=== PATIENT | female | born 1985 | race Caucasian/White ===

== ENCOUNTER 2023-08-22 09:24 | Outpatient (OUT) | payer BC, SELFPAY ==
--- NOTE | 2023-08-22 | US_ITS ---
[address] [address] Patient Name: LOCO HICKS MRN: [id number] date: 1985 Sex: F Assigned Patient Location: [facility] Current Patient Location: [facility] Accession/Order Number: [id number] Exam Date: 08/22/2023 09:30 Report Date: 08/22/2023 10:00 At the request of: MARYANN VIZCARRA Procedure: US OB transvaginal EXAMINATION: US OB transvaginal HISTORY: MISSED MENSES. VIABILITY AND DATING COMPARISON: No relevant comparison available. FINDINGS: Downs intrauterine gestation Gestational sac: 4.81 cm, 10 weeks 4 days CRL: 4.8 cm, 11 weeks 5 days Heart rate: 160 beats minute Cervix: Closed, 4.3 cm The uterus is normal, anteverted The right ovary is normal containing a 2.8 cm corpus luteal cyst. The left ovary is not visualized Clinical age: 11 weeks 5 days Clinical DEEPALI: 03/07/2024 Ultrasound age: 11 weeks 5 days Ultrasound DEEPALI: 03/07/2024 US/US OB transvaginal IMPRESSION: Viable downs intrauterine gestation measuring 11 weeks 5 days Electronically authenticated by: CADEN COX Date: 08/22/2023 10:00
== END 2023-08-22 09:25 | disposition home or self-care (01) ==
LOC: NOMS 09:24
PROVIDERS: Visit Provider Obstetrics & Gynecology
DX: Z34.91 Encounter for supervision of normal pregnancy, unspecified, first trimester (principal); Z3A.11 11 weeks gestation of pregnancy
CPT/HCPCS: 76817

== ENCOUNTER 2023-08-23 08:50 | Outpatient (OUT) | payer BC, SELFPAY ==
--- OUTSIDE RECORDS SUMMARY | 2023-08-23 08:56 | XMS_ITS | CCD ---
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 or neural foraminal narrowing. C4-C5: There is no significant disc protrusion, spinal canal stenosis or neural foraminal narrowing. C5-C6: There is no significant disc protrusion, spinal canal stenosis or neural foraminal narrowing. C6-C7: There is no significant disc protrusion, spinal canal stenosis or neural foraminal narrowing. C7-T1: There is no significant disc protrusion, spinal canal stenosis or neural foraminal narrowing. IMPRESSION: Unremarkable exam RECOMMENDATIONS: Unavailable Interpreted by: Ean Cedillo MD Signed by: Ean Cedillo MD 12/22/21 Final result Normal [facility] [id number] 12-22-2021 SARS-CoV-2 (COVID-19) RNA SHELBI+probe Ql (Unsp spec) Not detected Normal NOTDET [facility] Comment on above: Result Comment: Rapid NAAT: The specimen is NEGATIVE for SARS-CoV-2, the novel coronavirus associated with COVID-19. The ID NOW COVID-19 assay is designed to detect the virus that causes COVID-19 in patients with signs and symptoms of infection who are suspected of COVID-19. An individual without symptoms of COVID-19 and who is not shedding SARS-CoV-2 virus would expect to have a negative (not detected) result in this assay. Negative results should be treated as presumptive and, if inconsistent with clinical signs and symptoms or necessary for patient management, should be tested with an alternative molecular assay. Negative results do not preclude SARS-CoV-2 infection and should not be used as the sole basis for patient management decisions. Fact sheet for Healthcare Providers: https://www.fda.gov/media/124903/download Fact sheet for Patients: https://www.fda.gov/media/582069/download Methodology: Isothermal Nucleic Acid Amplification Performed By: #### C OVRB #### [address] [place] [address] Statuary Painter: Campbell Simmons MD SARS-CoV-2 (COVID-19) PCRon 12-22-2021 Employed in healthcare? No Invalid Interpretation Code [facility] Comment on above: Performed By: #### 6 [id number] ####[facility] (DEFAULT)[address] [place] [address] Group care resident? No Invalid Interpretation Code [facility] Comment on above: Performed By: #### 6 [id number] ####[facility] (DEFAULT)[address] [place] [address] 638[address] In ICU? No Invalid Interpretation Code [facility] Comment on above: Performed By: #### 6 [id number] ####[facility] (DEFAULT)[address] [place] [address] 12912 status? Not Invalid Interpretation Code [facility] Comment on above: Performed By: #### 6 [id number] ####[facility] (DEFAULT)[address] [place] [address] SARS-CoV-2 (COVID-19) RNA SHELBI+probe Ql (Unsp spec) Not detected Normal Not Detected [facility] Comment on above: Result Comment: Perf ormed by PCR methodology. Performed By: #### 6 [id number] ####[facility] (DEFAULT)[address] [place] [address] SARS-CoV-2 (COVID-19) RNA SHELBI+probe Ql (Unsp spec) No Invalid Interpretation Code [facility] Comment on above: Performed By: #### 6 [id number] ####[facility] (DEFAULT)[address] [place] [address] Symptomatic as defined by CDC? No Invalid Interpretation Code [facility] Comment on above: Performed By: #### 6 [id number] ####[facility] (DEFAULT)[address] [place] [address] Transfer Noteon 12-22-2021 Transfer Note medication list sent with patient, Complete ED chart sent with patient. CD and med list sent w. patient to Hospital [Electronically Signed on: 12/22/2021 00:05 EDT] Nadya Garcia [Verified on: 12/22/2021 00:05 EDT] Nadya Garcia [facility] Transfer Note [id number] #1.00OTGTIFF [facility] Transfer Note [id number]. [id number] #1.00OTGTIFF [facility] Transfer Note transport called, [facility] called for transport to [facility]. Willie stated will call when back in area from [place]. [Electronically Signed on: 12/21/2021 22:14 EDT] Nadya Garcia [Verified on: 12/21/2021 22:14 EDT] Nadya Garcia Normal [facility] .Auto Diff 1on 12-21-2021 Auto [place] % 7 % Normal 1-12 [facility] Comment on above: Performed By: #### 7 333747, [id number], 3577508, 80479786, 5757012, 6055920, 6697878687, 1908443, 5685567813 ####[facility] (DEFAULT)[address] [place] [address] Baso Abs# 0.0 x10 Normal 0.0-0.2 [facility] Comment on above: Performed By: #### 7 195982, [id number], 9861310, 87202928, 5428015, 3884208, 3378406323, 0694935, 1817280498 ####[facility] (DEFAULT)[address] [place] [address] Basophils/100 WBC (Bld) 0.4 % Normal 0.2-2.0 [facility] Comment on above: Performed By: #### 7 437578, 8373339923, 3880533, 20544327, 5181343, 9125501, 0353395057, 2206348, 8583458222 ####[facility] (DEFAULT)[address] [place] [address] Eos Abs# 0.1 x10 Normal 0.0-0.4 [facility] Comment on above: Performed By: #### 7 755857, 1639270326, 0013842, 65472608, 4916472, 5768648, 4034290860, 0562457, 4894306294 ####[facility] (DEFAULT)[address] [place] [address] 24685 Eosinophils/100 WBC (Bld) 0.7 % Low 0.9-4.0 [facility] Comment on above: Performed By: #### 7 121000, 9067848333, 5235568, 35652817, 8345785, 6191583, 8070709494, 1540000, 7694782070 ####[facility] (DEFAULT)[address] [place] [address] 74528 Lymph Abs# 3.2 x10 High 1.3-2.9 [facility] Comment on above: Performed By: #### 7 418121, 5296378890, 3215588, 81121831, 7860853, 1951928, 8169700534, 7314042, 6952370086 ####[facility] (DEFAULT)[address] [place] [address] 13577 Lymphocytes/100 WBC (Bld) 40 % Normal 14-48 [facility] Comment on above: Performed By: #### 7 899840, 5858608310, 5126009, 83590601, 6773586, 6554109, 4866469325, 1218751, 7027425067 ####[facility] (DEFAULT)[address] [place] [address] 82370 Isanti Abs# 0.6 x10 Normal 0.0-0.8 [facility] Comment on above: Performed By: #### 7 017689, 5966580285, 5516933, 92039346, 9615389, 8652222, 4775576126, 3759616, 4490982651 ####[facility] (DEFAULT)[address] [place] [address] 12253 Neut Abs# 4.3 x10 Normal 1.5-9.2 [facility] Comment on above: Performed By: #### 7 126932, 4745996382, 8342215, 72244923, 1029723, 1387335, 9250373857, 6225914, 8511632286 ####[facility] (DEFAULT)[address] [place] [address] 43795 Neutrophils/100 WBC (Bld) 53 % Normal 44-88 [facility] Comment on above: Performed By: #### 7 187317, 1142069148, 3473071, 39604556, 5240403, 5351566, 5496013895, 9097188, 2096665805 ####[facility] (DEFAULT)[address] [place] [address] 69794 CBC w/ Auto Diffon 2 Erythrocyte distribution width (RBC) [Ratio] 14.3 % Normal 11.5-15.0 [facility] Comment on above: Performed By: #### 7 863327, 8435259707, 3693091, 58137457, 6852536, 4886048, 6226357946, 9478856, 0876943951 ####[facility] (DEFAULT)[address] [place] [address] 91392 Hematocrit (Bld) [Volume fraction] 42.3 % High 33.7-40.4 [facility] Comment on above: Performed By: #### 7 228869, 3897160719, 4886693, 85958964, 4010466, 4853688, 5463365029, 6292107, 0738998188 ####[facility] (DEFAULT)[address] [place] [address] 54094 Hemoglobin (Bld) [Mass/Vol] 13.7 g/dL Normal 11.3-15.9 [facility] Comment on above: Performed By: #### 7 856001, 4349815702, 6947170, 80982740, 3538456, 6447735, 5629619394, 2125836, 6173647484 ####[facility] (DEFAULT)[address] [place] [address] 92548 Instr WBC 8.2 x10 Invalid Interpretation Code [facility] Comment on above: Performed By: #### 7 109224, 4140236821, 6803466, 04434631, 5596035, 6469292, 9996138363, 7574930, 9396797224 ####[facility] (DEFAULT)[address] [place] [address] 41649 Man Diff? Auto Normal [facility] Comment on above: Performed By: #### 7 312411, 8660719613, 6322712, 09514599, 1855107, 4929216, 9771392098, 2031156, 9240859404 ####[facility] (DEFAULT)[address] [place] [address] 83627 MCH (RBC) [Entitic mass] 31 pg Normal 24-34 [facility] Comment on above: Performed By: #### 7 158183, 2675792052, 0150146, 76812122, 6666451, 7619159, 8983307453, 1350230, 9110833453 ####[facility] (DEFAULT)[address] [place] [address] 65901 MCHC (RBC) [Mass/Vol] 32 g/dL Normal 26-37 [facility] Comment on above: Performed By: #### 7 727522, 7222250236, 9894864, 42084365, 2292626, 9452787, 3855621158, 7554819, 4723237552 ####[facility] (DEFAULT)[address] [place] [address] 02368 MCV (RBC) [Entitic vol] 96 fL Normal 81-100 [facility] Comment on above: Performed By: #### 7 656663, 1859944825, 1149395, 76164462, 9822317, 5419995, 9696412201, 2368091, 5989379474 ####[facility] (DEFAULT)[address] [place] [address] 13741 Platelet 363 x10 Normal 138-427 [facility] Comment on above: Performed By: #### 7 062864, 3878999241, 9456578, 55044026, 8010668, 5230789, 4251659603, 0049289, 9999241581 ####[facility] (DEFAULT)[address] [place] [address] 38999 Platelet mean volume (Bld) [Entitic vol] 10.2 fL Normal 6.3-10.2 [facility] Comment on above: Performed By: #### 7 439698, 5951767287, 3322171, 57417896, 6622226, 7543780, 1807389983, 1101863, 4118813101 ####[facility] (DEFAULT)[address] [place] [address] 86200 RBC 4.42 x10 Normal 3.70-5.30 [facility] Comment on above: Performed By: #### 7 045972, 5423810847, 1194937, 21165129, 5850456, 0234114, 6575900629, 0585765, 7712217324 ####[facility] (DEFAULT)[address] [place] [address] 95367 WBC 8.2 x10 Normal 3.5-10.5 [facility] Comment on above: Performed By: #### 7 020904, 1772463838, 0800427, 93107044, 7568796, 8655753, 9162461311, 6080732, 8701303344 ####[facility] (DEFAULT)[address] [place] [address] Standardon 12-21-2021 eGFR Non AA 57 mL/min/1.73m2 Invalid Interpretation Code [facility] Comment on above: Performed By: #### 7 926781, 3043004842, 0602794, 56338018, 0214560, 9143435, 2848825369, 1281396, 7481404962 ####[facility] (DEFAULT)[address] [place] [address] 39109 eGFR AA >60 Invalid Interpretation Code [facility] Comment on above: Result Comment: Onion Farmer nathalia Kidney disease could be indicated at eGFRs of less than 60 ml/min/1.73m2. Kidney Failure is indicated at less than 15 ml/min/1.73m2 Performed By: #### 7 412791, 6681244755, 7992553, 12933409, 6674303, 3956530, 3458000088, 2639382, 2480329560 ####[facility] (DEFAULT)[address] [place] [address] 75619 Albumin [Mass/Vol] 4.7 g/dL Normal 3.5-5.0 [facility] Comment on above: Performed By: #### 7 970230, 7055534752, 8167355, 26382606, 0724436, 7848337, 7035492598, 6594902, 8184149038 ####[facility] (DEFAULT)[address] [place] [address] Albumin/Globulin [Mass ratio] 1.1 {ratio} Low 1.4-2.6 [facility] Comment on above: Performed By: #### 7 860060, 1390739701, 8968109, 30788871, 1351222, 0395435, 5505253748, 2888452, 2822418060 ####[facility] (DEFAULT)[address] [place] [address] 27330 Alk Phos 99 IU/L High 32-91 [facility] Comment on above: Performed By: #### 7 817567, 9531762588, 1031755, 71775380, 7689025, 5095123, 2202812426, 1483369, 3229333261 ####[facility] (DEFAULT)[address] [place] [address] ALT [Catalytic activity/Vol] 32.0 U/L Normal 14.0-54.0 [facility] Comment on above: Performed By: #### 7 625344, 7954004001, 2770529, 29055862, 4579900, 7229095, 7357684905, 2587945, 2136331657 ####[facility] (DEFAULT)[address] [place] [address] 87909 Anion gap [Moles/Vol] 23.0 mmol/L High 5.0-19.0 [facility] Comment on above: Performed By: #### 7 869902, 5702566421, 0083818, 90606974, 1858827, 6029483, 9994103515, 3262330, 5864819076 ####[facility] (DEFAULT)[address] [place] [address] 86271 AST [Catalytic activity/Vol] 41 U/L Normal 15-41 [facility] Comment on above: Performed By: #### 7 109306, 2207656844, 7618711, 03641692, 4565448, 1445509, 0584628007, 2679728, 5294054626 ####[facility] (DEFAULT)[address] [place] [address] 13030 Bili Total 0.4 mg/dL Normal 0.3-1.2 [facility] Comment on above: Performed By: #### 7 179220, 7145202170, 4972955, 55018334, 1803113, 2045073, 1412220467, 3058965, 3812021746 ####[facility] (DEFAULT)[address] [place] [address] 26763 Calcium [Mass/Vol] 10.2 mg/dL Normal 8.9-10.3 [facility] Comment on above: Performed By: #### 7 545354, 0302108399, 1829554, 08799809, 3280205, 4723227, 7077252638, 3438224, 0067254189 ####[facility] (DEFAULT)[address] [place] [address] 35375 Chloride [Moles/Vol] 96 mmol/L Low 101-111 [facility] Comment on above: Performed By: #### 7 284755, 4980452818, 3438315, 31562345, 9742905, 7698404, 9043227646, 0119235, 1497918436 ####[facility] (DEFAULT)[address] [place] [address] 65786 CO2 [Moles/Vol] 24 mmol/L Normal 21-32 [facility] Comment on above: Performed By: #### 7 565564, 0106245634, 1320345, 06669746, 7457995, 0295512, 5150611198, 3879908, 2552602295 ####[facility] (DEFAULT)[address] [place] [address] 17634 Creatinine [Mass/Vol] 1.10 mg/dL Normal 0.60-1.30 [facility] Comment on above: Performed By: #### 7 792027, 1359764488, 3564450, 52842505, 0608135, 5854713, 4710093387, 7267840, 1850385784 ####[facility] (DEFAULT)[address] [place] [address] 00063 Globulin (S) [Mass/Vol] 4.2 g/dL Normal 1.5-4.3 [facility] Comment on above: Performed By: #### 7 578995, 0395874495, 2629720, 75140293, 8713966, 3045136, 2699958086, 7235464, 4441286413 ####[facility] (DEFAULT)[address] [place] [address] 53451 Glucose [Mass/Vol] 97.0 mg/dL Normal 74.0-118.0 [facility] Comment on above: Performed By: #### 7 605264, 6958634220, 1497476, 81866009, 4642882, 6664297, 2963197825, 0270722, 3349018050 ####[facility] (DEFAULT)[address] [place] [address] 44450 Osmolality 278 mOsm/L Invalid Interpretation Code [facility] Comment on above: Performed By: #### 7 007531, 5831134195, 3296751, 70013121, 7056903, 1418132, 6157909078, 6887508, 5623188663 ####[facility] (DEFAULT)[address] [place] [address] 44831 Potassium [Moles/Vol] 3.5 mmol/L Low 3.6-5.1 [facility] Comment on above: Performed By: #### 7 439796, 6054488648, 4599993, 86559288, 5017571, 1653649, 4654543757, 3821306, 1290364504 ####[facility] (DEFAULT)[address] [place] [address] 61327 Protein [Mass/Vol] 8.9 g/dL High 6.5-8.1 [facility] Comment on above: Performed By: #### 7 583955, 8509335909, 3747308, 60906761, 5219158, 6734739, 0888154819, 0977857, 5085980534 ####[facility] (DEFAULT)[address] [place] [address] 55497 Sodium [Moles/Vol] 139.0 mmol/L Normal 136.0-144.[address] [facility] Comment on above: Performed By: #### 7 612993, 5488863296, 4238901, 06863460, 1696608, 0430252, 1330559180, 9054419, 8649256183 ####[facility] (DEFAULT)[address] [place] [address] Urea nitrogen [Mass/Vol] 15 mg/dL Normal 8-26 [facility] Comment on above: Performed By: #### 7 167103, 8862522604, 5358115, 68834566, 7688818, 9319379, 9389865114, 1911324, 1959719145 ####[facility] (DEFAULT)[address] [place] [address] 90239 Urea nitrogen/Creatinine [Mass ratio] 14.0 mg/mg Normal 4.6-16.2 [facility] Comment on above: Performed By: #### 7 361509, 0492133031, 9915178, 94820430, 2972292, 8208889, 1519443167, 5676045, 6788593930 ####[facility] (DEFAULT)[address] [place] [address] CT Head or Brain w/o Kirk cortes 12-21-2021 CT Head or Brain w/o Contrast EXAMINATION: CT Head or Brain w/o Contrast HISTORY: Patient with numbness and tingling TECHNIQUE: Axial CT scans through the head were obtained without IV contrast administration. Dose reduction techniques were achieved by using: automated exposure control and/or adjustment of mA and /or kV according to patient size and/or use of iterative reconstruction technique. COMPARISON: None. FINDINGS: The cerebral hemispheres have normal white and chavez matter and corticomedullary differentiation. To the limit of CT, the posterior fossa appears unremarkable. The ventricular system and cortical sulci are normal for the patient's age. No area of abnormal mass-effect or edema or intracranial hemorrhage. The visualized orbits show no gross mass. The visualized paranasal sinuses show no air-fluid level. Mastoid air cells are clear. IMPRESSION: No acute intracranial process. Final Dictated by: Jaylon Ha Dictated DT/TM: 12/21/21 9:17 Signed (Electronic Signature): Jaylon Ha 12/21/21 9:19 pm Technologist: Erwin CHAUDHARI [facility] D-Dimeron 12-21-2021 D-Dimer 0.49 mg/L FEU Normal 0.19-0.50 [facility] Comment on above: Result Comment: The INNOVANCE D-Dimer assay (Cutoff Value of > 0.50) is intended for the use as an aid in the diagnosis of venous thromboembolism (VTE) deep vein thrombosis (DVT) or pulmonary embolism (PE). The measurement of D-Dimer should not be used as an aid in the diagnosis of VTE in patients with: ? Therapeutic dose anticoagulant therapy for >24 hours ? Fibrinolytic therapy within previous 7 days ? Trauma or surgery within previous 4 weeks ? Disseminated malignancies ? Aortic aneurysm ? Sepsis, sever infections, pneumonia, severe skin infections ? Liver cirrhosis ? Performed By: #### 7 183303, 0554204468, 4117497, 58951263, 5116217, 3019723, 4788395628, 7147178, 6144051940 ####[facility] (DEFAULT)[address] [place] [address] ED Note - Otheron 12-21-2021 ED Note - Other Neurology called back from [facility], on phone with Mariajose LLANES [Electronically Signed on: 12/21/2021 21:29 EDT] Nadya Garcia [Verified on: 12/21/2021 21:29 EDT] Nadya Garcia [facility] ED Note - Other paging Neurology through [facility] for consult for Mariajose LLANES [Electronically Signed on: 12/21/2021 21:12 EDT] Nadya Garcia [Verified on: 12/21/2021 21:12 EDT] Nadya Garcia [facility] ED Note - Physicianon 2021 ED Note - Physician Patient: LOCO HICKS Age: 36 years Sex: FEMALE : 1985 Associated Diagnoses: Paresthesias; Visual disturbance Author: MARIAJOSE EDEN Basic Information Time seen: Date & time 12/21/2021 18:37:00. History source: Patient, EMS. Arrival mode: Ambulance. Additional information: Chief Complaint from Nursing Triage Note : Chief Complaint 12/21/2021 18:24 EDT Chief Complaint Patient having episodes of left sided numbness and lightheadedness with position changes. . History of Present Illness Patient is a 36-year-old female presenting to the emergency department with complaint of episodes of left-sided facial numbness. Patient indicates over the last 2 weeks she has been experiencing left-sided facial numbness intermittently. She states this can last for 10 to 15 minutes at a time. She reports having pressure in her head and visual disturbance in her left eye when this happens. Patient describes visual disturbance as cloudy vision. She reports this causes her to feel anxious and panic and she will start hyperventilating. She reports after she does that she feels numbness and tingling in her fingertips and her feet. Patient reports she was at work tonight and experienced an episode of facial numbness that lasted approximately 10 minutes . She reports she felt this numbness and tingling on the side of her face, felt dizzy and possible mild shortness of breath. She denies having any chest pains, abdominal pains, nausea vomiting, problems with bowels or bladder. Denies any history of migraines. Denies any head injury. Review of Systems Constitutional symptoms: No fever, Skin symptoms: No rash, Eye symptoms: Vision unchanged. ENMT symptoms: No sore throat, no nasal congestion. Respiratory symptoms: No shortness of breath, no cough. Cardiovascular symptoms: No chest pain, no tachycardia. Gastrointestinal symptoms: No abdominal pain, no nausea, no vomiting. Genitourinary symptoms: No dysuria, Musculoskeletal symptoms: No back pain, Neurologic symptoms: Headache, numbness, tingling. Health Status Allergies: Allergic Reactions (Selected) No Known Medication Allergies. Medications: (Selected) Inpatient Medications Ordered Sodium Chloride 0.9% intravenous solution 500 mL: 20 mL/hr, IV Prescriptions Prescribed PriLOSEC 20 mg oral delayed release capsule: 20 mg, 1 cap(s), PO, Daily, 15 cap(s), 0 Refill(s) Documented Medications Documented metFORMIN 500 mg oral tablet: 500 mg, 1 tab(s), PO, BID, 0 Refill(s). Past Medical/ Family/ Social History Medical history: No active or resolved past medical history items have been selected or recorded.. Social history: Social & Psychosocial Habits Alcohol 12/21/2021 Alcohol Use: Never Substance Abuse 12/21/2021 Substance use: Never Tobacco 12/21/2021 Smoking tobacco use: Never tobacco user Electronic Cigarette/Vaping 12/21/2021 Electronic Cigarette Use: Never . Physical Examination Vital Signs Vital Signs 12/21/2021 18:24 EDT Temperature Oral 36.8 DegC Peripheral Pulse Rate 75 bpm Respiratory Rate 20 br/min Systolic Blood Pressure 149 mmHg HI Diastolic Blood Pressure 100 mmHg HI SpO2 98 % Oxygen Therapy Room air . CONST: -Well-developed well-nourished. -Acute distress: No -Vitals: reviewed. SKIN: -Gross abnormalities: No EYES: -EOM intact, PIA: -Sclera conjunctiva: Unremarkable. ENT: - pharynx pink and moist. NECK: -Supple ([id number]): non-tender. CARD: -Rate and rhythm: Regular -Edema: No -Calf pain: No RESP: -Respiratory effort and chest excursion with respirations: Normal -Breath sounds equal bilaterally: Clear -Wheezes: No -Rales: No BACK: -Signs of pain with movement: No ABD: -Distended: No -Deep palpation: Non-tender, soft, no guarding or rebound tenderness EXT: Gross appearance and use of all four extremities: Unremarkable NEURO: -Patient: alert -Gross CN or Focal Neuro deficits: No -Oriented to: person, place and time. -Appearance and judgment: appropriate. - No truncal or limb ataxia appreciated, Medical Decision Making 36-year-old female presenting to the emergency department for evaluation of numbness and tingling left side of face with visual disturbance, intermittent headaches, intermittently over the last 2 weeks. Patient's blood work shows mildly low potassium of 3.5, magnesium of 2.0, mild anion gap of 23, alcohol level is slightly elevated at 9, salicylate level within normal ranges, D-dimer is negative, troponin is negative, white blood cell count hemoglobin and platelets within normal ranges. Urinalysis shows no acute infection, negative for leukocyte Estrace and ketones, negative protein negative blood. Urine is negative. I discussed alcohol in her system she states she has not had any alcohol for over a day denies drinking daily but states that she had a bottle of wine 2 days ago secondary to this concern mother's anniversary of passing away. I di (more content not included)... Normal [facility] ED Note-Nursingon 12-21-2021 ED Note-Nursing Fitting Room Checker assumed care for pt at 2124. Pt had fluids running at that time. Will continue to give the rest of the liter per VO from MARIO ALBERTO. PA also stated that after speaking with neuro, pt is to be transferred to [facility] for MRI and further evaluation. Normal [facility] Ethanol.on 12-21-2021 Ethanol Level 9.0 mg/dL High 0.0-5.0 [facility] Comment on above: Performed By: #### 2 [id number] #### [facility] (DEFAULT) [address] [place] [address] 56556 Extra [place] 12-21-2021 Tube Collected Yes Invalid Interpretation Code [facility] Comment on above: Performed By: #### 2 [id number], [id number] #### [facility] (DEFAULT) [address] [place] [address] 86692 Extra [place] 12-21-2021 Tube Collected Yes Invalid Interpretation Code [facility] Comment on above: Performed By: #### 7 [id number], [id number], [id number], [id number], 2213003, [id number], [id number], [id number], [id number] #### [facility] (DEFAULT) [address] [place] [address] 96256 Magnesiumon 12-21-2021 Magnesium [Mass/Vol] 2.02 mg/dL Normal 1.80-2.50 [facility] Comment on above: Performed By: #### 7 [id number], [id number], [id number], [id number], 9846561, 9817635, [id number], [id number], [id number] ####[facility] (DEFAULT)[address] [place] [address] 63068 PTon 12-21-2021 INR Coag (PPP) [Relative time] 0.94 {INR} Normal 0.91-1.11 [facility] Comment on above: Performed By: #### 7 [id number], [id number], 5749508, 59412993, 3947095, 3072996, [id number], 0409842, [id number] ####[facility] (DEFAULT)[address] [place] [address] PT 10.2 second(s) Normal 9.7-11.8 [facility] Comment on above: Performed By: #### 7 [id number], [id number], 5246577, 32414456, 0263783, 2204937, [id number], 6562152, [id number] ####[facility] (DEFAULT)[address] [place] [address] 31857 PTTon 12-21-2021 PTT 26 second(s) Normal 25-35 [facility] Comment on above: Performed By: #### 7 [id number], [id number], 5977514, 69001900, 8499467, 1545717, [id number], 0291077, [id number] ####[facility] (DEFAULT)[address] [place] [address] 41959 Test Urine 1on U Preg Negative Normal [facility] Comment on above: Performed By: #### 1 [id number], [id number] ####[facility] (DEFAULT)[address] [place] [address] 30689 U Preg Internal Control Pass Normal [facility] Comment on above: Performed By: #### 1 [id number], [id number] ####[facility] (DEFAULT)[address] [place] [address] 53367 Salicylateon 12-21-2021 Salicylate Lvl <4.0 Normal 0.0-30.0 [facility] Comment on above: Result Comment: Sali cylate ranges less than 30 mg/dL are considered to be therapeutic. Levels greater than 30 mg/dL are considered toxic and levels greater than 60 mg/dL may be lethal. Performed By: #### 2 [id number], [id number] #### [facility] (DEFAULT) [address] [place] [address] TnI HSon 12-21-2021 Troponin I High Sensitivity <2 Normal <=15 [facility] Comment on above: Result Comment: Male Baseline Delta 1Hr (Note pg/mL=ng/L) <20pg/mL 50-60% >20pg/mL 20% Female Baseline Delta 1Hr <15pg/mL 50-60% >15pg/mL 20% Other Baseline Delta 1Hr <18ng/mL 50-60% >18ng/mL 20% ([employer] [employer] Guidelines February 2018) Performed By: #### 7 [id number], [id number], 6706858, 79278405, 7272348, 3925773, [id number], 9626119, [id number] ####[facility] (DEFAULT)[address] [place] [address] 57027 Triage Panel 12on 12-21-2021 Triage Internal Control Pass Normal [facility] Comment on above: Performed By: #### 1 [id number] ####[facility] (DEFAULT)[address] [place] [address] 40834 U Amph Scr Negative Normal [facility] Comment on above: Performed By: #### 1 [id number] ####[facility] (DEFAULT)[address] [place] [address] 49549 U Vanesa Scr Negative [facility] Comment on above: Performed By: #### 1 [id number] ####[facility] (DEFAULT)[address] [place] [address] 01654 U Benzodia Scr Negative [facility] Comment on above: Performed By: #### 1 [id number] ####[facility] (DEFAULT)[address] [place] [address] 34553 U Cannab Scrn Negative [facility] Comment on above: Performed By: #### 1 [id number] ####[facility] (DEFAULT)[address] [place] [address] 84793 U Cocaine Scr Negative [facility] Comment on above: Performed By: #### 1 [id number] ####[facility] (DEFAULT)[address] [place] [address] 57605 U Methadone Scr Negative [facility] Comment on above: Performed By: #### 1 [id number] ####[facility] (DEFAULT)[address] [place] [address] 45825 U Methamp Scrn Negative [facility] Comment on above: Performed By: #### 1 [id number] ####[facility] (DEFAULT)[address] [place] [address] 16505 U Opiate Scr Negative [facility] Comment on above: Performed By: #### 1 [id number] ####[facility] (DEFAULT)[address] [place] [address] 83923 U Oxycod Scr Negative [facility] Comment on above: Performed By: #### 1 [id number] ####[facility] (DEFAULT)[address] [place] [address] 32396 U Phencyclidine Scr Negative [facility] Comment on above: Performed By: #### 1 [id number] ####[facility] (DEFAULT)[address] [place] [address] 19133 U Propoxyphene Scr Negative [facility] Comment on above: Performed By: #### 1 [id number] ####[facility] (DEFAULT)[address] [place] [address] 08661 U Tricyclic Antidepress Scr Negative [facility] Comment on above: Result Comment: Resu lts are to be used only for medical (ie, treatment) purposes only. Positive tests will not be sent out for confirmation. PROFILE?-V MEDTOX Scan? Drugs of Abuse Test System detects drug classes at the following cutoff concentrations: AMP Amphetamine (d-amphetamine): 500 ng/mL BAR Barbituates (Butabital): 200 ng/mL BZO Benzodiazepines (Nordiazepam): 150 ng/mL BUP Buprenorphine (Buprenorphine): 10 ng/mL PANFILO Cocaine (Benzoylecgonine): 150 ng/mL MAMP Methamphetamine (d-Methamphetamine): 500 ng/mL MTD Methadone (Methadone): 200 ng/mL OPI Opiates (Morphine): 100 ng/mL or 2000 ng/mL OXY Oxycodone (Oxycodone): 100 ng/mL PCP Phencyclidine (Phencyclidine): 25 ng/mL PPX Propoxyphene (Norpropoxyphene): 300 ng/mL THC Cannabinoids (22-yxw-6-carboxy- -THC): 50 ng/mL TCA Tricyclic-Antidepressants (Desipramine): 300 ng/mL Performed By: #### 1 [id number] ####[facility] (DEFAULT)[address] [place] [address] Urine Source Clean Catch [facility] Comment on above: Performed By: #### 1 [id number] ####[facility] (DEFAULT)[address] [place] [address] UA w Culture if Ind Standard on 12-21-2021 Color (U) Yellow Normal [facility] Comment on above: Performed By: #### 1 [id number], [id number] ####[facility] (DEFAULT)[address] [place] [address] Culture? Not Indicated Invalid Interpretation Code [facility] Comment on above: Result Comment: Resu lt created by rule GL_MAGR_ADD_UA_CULT1 Performed By: #### 1 [id number], [id number] ####[facility] (DEFAULT)[address] [place] [address] Glucose (U) [Mass/Vol] Negative [facility] Comment on above: Performed By: #### 1 [id number], [id number] ####[facility] (DEFAULT)[address] [place] [address] Ketones Ql (U) Negative [facility] Comment on above: Performed By: #### 1 [id number], [id number] ####[facility] (DEFAULT)[address] [place] [address] 33920 Micro? Not Indicated Invalid Interpretation Code [facility] Comment on above: Result Comment: Resu lt created by rule GL_MAGR_ADD_UA_MICRO Performed By: #### 1 [id number], [id number] ####[facility] (DEFAULT)[address] [place] [address] 99523 UA Bilirubin Negative Normal [facility] Comment on above: Performed By: #### 1 [id number], [id number] ####[facility] (DEFAULT)[address] [place] [address] UA Blood Negative Normal NEGATIVE [facility] Comment on above: Performed By: #### 1 [id number], [id number] ####[facility] (DEFAULT)[address] [place] [address] 10725 UA Clarity CLEAR Normal CLEAR [facility] Comment on above: Performed By: #### 1 [id number], [id number] ####[facility] (DEFAULT)[address] [place] [address] UA Leuk Est Negative Normal NEGATIVE [facility] Comment on above: Performed By: #### 1 [id number], [id number] ####[facility] (DEFAULT)[address] [place] [address] UA Nitrite Negative Normal NEGATIVE [facility] Comment on above: Performed By: #### 1 [id number], [id number] ####[facility] (DEFAULT)[address] [place] [address] 30037 UA pH 6.5 Normal 5-8 [facility] Comment on above: Performed By: #### 1 [id number], [id number] ####[facility] (DEFAULT)[address] [place] [address] 01661 UA Protein Negative Normal NEGATIVE [facility] Comment on above: Performed By: #### 1 [id number], [id number] ####[facility] (DEFAULT)[address] [place] [address] 73511 UA Spec Grav <=1.005 Normal 1.001-1.035 [facility] Comment on above: Performed By: #### 1 [id number], [id number] ####[facility] (DEFAULT)[address] [place] [address] UA Urobilinogen 0.2 mg/dL Normal 0.2-1.0 [facility] Comment on above: Performed By: #### 1 [id number], [id number] ####[facility] (DEFAULT)[address] [place] [address] 17508 Breakpoint UA Normal [facility] Comment on above: Performed By: #### 1 [id number], [id number] ####[facility] (DEFAULT)[address] [place] [address] 94142 Urine Source Clean Catch Normal [facility] Comment on above: Performed By: #### 1 [id number], [id number] ####[facility] (DEFAULT)[address] [place] [address] 51554 XR Chest 2 Viewson XR Chest 2 Views EXAMINATION: XR Chest 2 Views, 12/21/2021 8:02 PM EDT HISTORY: Chest Pain COMPARISON: Chest 02/23/2021. TECHNIQUE: Chest x-ray: Two views. FINDINGS: SUPPORT APPARATUS/POST-SURGI JAVIER CHANGES: None. CARDIOMEDIASTINAL SILHOUETTE: Normal. AIRWAYS/LUNGS: Mild bronchial wall thickening and hyperinflation suggestive of bronchitis. No focal consolidation. PLEURAL SPACES: No pleural effusion or pneumothorax. BONES AND SOFT TISSUES: Surgical clips in the right upper quadrant consistent with cholecystectomy. IMPRESSION: 1. Findings suggestive of bronchitis. 2. No other acute process. Final Dictated by: Víctor Bowen Dictated DT/TM: 12/21/21 9:36 Signed (Electronic Signature): Víctor Bowen 12/21/21 9:38 pm Technologist: SRF,L Normal [facility] CARDIAC HUMAIRA ADMITon 021 CK [Catalytic activity/Vol] 117 U/L Normal 30-135 [facility] Comment on above: Performed By: #### T SH, CMADM, CMP #### [facility] [address] [place], [place] [address] Nelida Bautista CK.MB [Mass/Vol] 1.16 ng/mL Normal <=2.37 [facility] Comment on above: Performed By: #### T HAYDE, CMADM, CMP #### [facility] [address] [place] [id number] Nelida Lily HSTROP <4.0 Normal 4.0-35.5 [facility] Comment on above: Result Comment: CUT- OFF POINTS HAVE BEEN ESTABLISHED BASED ON THE FOURTH UNIVERSAL DEFINITIONS OF MYOCARDIAL INFARCTION. THE UPPER REFERENCE LIMIT (URL) OF TROPONIN, DEFINED THE 99TH PERCENTILE OF cTnI DISTRIBUTION IN A REFERENCE POPULATION, HAS BEEN CONFIRMED THE DECISION THRESHOLD FOR MA DIAGNOSIS. Performed By: #### T HAYDE, CMADM, CMP #### [facility] [address] [place], [place] [address] Nelida Lily NGA 41.0 ng/mL Normal <=61.[address] [facility] Comment on above: Performed By: #### T HAYDE, CMAEJ, CMP #### [facility] [address] [place], [place] [address] Nelida Lily CBC AUTO DIFFon 02-23-2021 BASO # 0.1 103/ul Normal 0.0-0.1 [facility] Comment on above: Performed By: #### C BC #### [facility] [address] [place], [place] [address] Nelida Lily Basophils/100 WBC (Bld) 1.0 % Normal 0.2-2.0 [facility] Comment on above: Performed By: #### C BC #### [facility] [address] [place], [place] [address] Nelida Lily EO # 0.1 103/ul Normal 0.0-0.[address] [facility] Comment on above: Performed By: #### C BC #### [facility] [address] [place], [place] [address] Nelida Lily Eosinophils/100 WBC (Bld) 2.2 % Normal 0.9-7.[address] [facility] Comment on above: Performed By: #### C BC #### [facility] [address] [place], [place] [address] Nelida Lily Erythrocyte distribution width (RBC) [Ratio] 14.2 % Normal 11.0-15.0 [facility] Comment on above: Performed By: #### C BC #### [facility] [address] [place] [id number] Nelida Lily Hematocrit (Bld) [Volume fraction] 40.6 % Normal 36.0-48.0 [facility] Comment on above: Performed By: #### C BC #### [facility] [address] [place] [address] Nelida Lily Hemoglobin (Bld) [Mass/Vol] 13.3 g/dL Normal 12.0-16.0 [facility] Comment on above: Performed By: #### C BC #### [facility] [address] [place] [address] Nelida Lily IG # 0.02 10e3/ul Normal 0.00-0.03 [facility] Comment on above: Performed By: #### C BC #### [facility] [address] [place] [address] Nelida Lily IG % 0.4 % Normal 0.0-0.5 [facility] Comment on above: Performed By: #### C BC #### [facility] [address] [place] [address] Nelida Lily LYMPH # 1.7 103/ul Normal 1.2-3.8 [facility] Comment on above: Performed By: #### C BC #### [facility] [address] [place] [address] Nelida Bautista Lymphocytes/100 WBC (Bld) 34.6 % Normal 20.5-60.0 [facility] Comment on above: Performed By: #### C BC #### [facility] [address] [place] [address] Nelida Lily MANUAL DIFF REQ NO Normal [facility] Comment on above: Performed By: #### C BC #### [facility] [address] [place], [place] [address] Nelida Lily MCH (RBC) [Entitic mass] 31.5 pg Normal 26.7-34.0 [facility] Comment on above: Performed By: #### C BC #### [facility] [address] [place] [id number] Nelida Bautista MCHC (RBC) [Mass/Vol] 32.8 g/dL Normal 29.9-35.[address] [facility] Comment on above: Performed By: #### C BC #### [facility] [address] [place], [place] [address] Nelidajose Bautista MCV (RBC) [Entitic vol] 96.2 fL Normal 81.0-99.[address] [facility] Comment on above: Performed By: #### C BC #### [facility] [address] [place], [place] [address] Nelida Lily MONO # 0.4 103/ul Normal 0.3-0.[address] [facility] Comment on above: Performed By: #### C BC #### [facility] [address] [place], [place] [address] Nelida Lily Monocytes/100 WBC (Bld) 7.1 % Normal 1.7-12.[address] [facility] Comment on above: Performed By: #### C BC #### [facility] [address] [place] [address] Nelida Lily NEUT # 2.7 103/ul Normal 1.4-6.[address] [facility] Comment on above: Performed By: #### C BC #### [facility] [address] [place], [place] [address] Nelida Lily Neutrophils/100 WBC (Bld) 54.7 % Normal 43.0-75.[address] [facility] Comment on above: Performed By: #### C BC #### [facility] [address] [place], [place] [address] Nelida Lily Platelet mean volume (Bld) [Entitic vol] 9.8 fL Normal 9.5-13.[address] [facility] Comment on above: Performed By: #### C BC #### [facility] [address] [place], [place] [address] Nelida Lily PLT 320 103/ul Normal 150-[address] [facility] Comment on above: Performed By: #### C BC #### [facility] [address] [place], [place] [address] Nelida Lily RBC 4.22 106/ul Normal 4.20-5.40 [facility] Comment on above: Performed By: #### C BC #### [facility] [address] [place] [address] Nelida Bautista WBC 4.9 103/ul Normal 4.0-11.0 [facility] Comment on above: Performed By: #### C BC #### [facility] [address] [place] [address] STROKE HEAD WOon 02-24-[address] STROKE HEAD WO EXAMINATION: CT STROKE HEAD WO, 02/23/2021 1:24 PM EDT HISTORY: NAUSEA WITH VOMITING, UNSPECIFIED ; posterior head pain, bilateral arm and leg numbness, head injury 01/31/2021 COMPARISON: None. TECHNIQUE: CT scan of the head was performed without IV contrast. CT dose reduction technique was used, including Automated Exposure Control. FINDINGS: BRAIN: No edema, hemorrhage, mass, acute infarction, or inappropriate atrophy. CSF SPACES: No hydrocephalus, subarachnoid hemorrhage, or mass. Appropriate for age. SKULL: No fracture, mass, or other significant visible lesion. SINUSES: No significant mucosal thickening or fluid on the limited views. ORBITS: No appreciable abnormality on the limited views. OTHER: Negative IMPRESSION: 1. Normal examination. Findings discussed with Mary Beth in the emergency department via telephone, to be related to Dr. Ambrocio. Electronically authenticated by: JANESSA SKINNER Date: 2021-02-23 13:[address] [facility] ER URINE PROFILEon 1 Bilirubin Ql (U) Negative Normal NEGATIVE [facility] Comment on above: Performed By: #### E RUR #### [facility] [address] [place] [address] Nelida Lily Clarity (U) CLEAR Normal CLEAR [facility] Comment on above: Performed By: #### E RUR #### [facility] [address] [place] [address] Nelida Bautista Color (U) LT. YELLOW Normal YELLOW [facility] Comment on above: Performed By: #### E RUR #### [facility] [address] [place] [address] Neliad Bautista ERUAHD A micrscopic examination will be performed if indicated. Normal [facility] Comment on above: Performed By: #### E RUR #### [facility] [address] [place] [address] Nelida Lily Glucose Ql (U) Negative Normal NEGATIVE [facility] Comment on above: Performed By: #### E RUR #### [facility] [address] [place] [address] Nelida Lily Hemoglobin Ql (U) Negative Normal NEGATIVE [facility] Comment on above: Performed By: #### E RUR #### [facility] [address] [place] [address] Nelida Lily Ketones Ql (U) Negative Normal NEGATIVE [facility] Comment on above: Performed By: #### E RUR #### [facility] [address] [place] [address] Nelida Lily LEUKOCYTES Negative Normal NEGATIVE [facility] Comment on above: Performed By: #### E RUR #### [facility] [address] [place] [address] Nelida Lily Nitrite Ql (U) Negative Normal NEGATIVE [facility] Comment on above: Performed By: #### E RUR #### [facility] [address] [place] [address] Nelida Lily pH (U) 8.0 [pH] Normal 5-9 [facility] Comment on above: Performed By: #### E RUR #### [facility] [address] [place] [address] Nelida Lily SPEC GRAVITY 1.020 Normal 1.005-<=1.025 [facility] Comment on above: Performed By: #### E RUR #### [facility] [address] [place] [address] Nelida Lily UA PROTEIN Negative Normal NEGATIVE/ TRACE [facility] Comment on above: Performed By: #### E RUR #### [facility] [address] [place] [address] Nelida Lily UR MICRO IND NOT INDICATED Normal [facility] Comment on above: Performed By: #### E RUR #### [facility] [address] [place] [id number] Nelida Bautista Urobilinogen Qn (U) 0.2 {Jose Carlos'U}/dL Normal 0.2 - 1. 0 [facility] Comment on above: Performed By: #### E RUR #### [facility] [address] [place] [id number] Nelida Bautista POINT OF CARE GLUCOSEon 01-27 Glucose [Mass/Vol] 95 mg/dL Normal 74-106 [facility] Comment on above: Performed By: #### P OCGLUC #### [facility] [address] [place], [place] [address] Nelida Bautista PREG HCG QUALon 02-23-2021 , QUAL Negative Normal NEGATIVE [facility] Comment on above: Performed By: #### P REG #### [facility] [address] [place], [place] [address] Nelida Bautista PROF 14(COMP METB)on 021 Albumin [Mass/Vol] 3.6 g/dL Normal 3.5-5.0 [facility] Comment on above: Performed By: #### T JOÃO LOCK, CMP #### [facility] [address] [place], [place] [address] Nelida Bautista Albumin/Globulin [Mass ratio] 0.9 {ratio} Normal [facility] Comment on above: Performed By: #### T RAY LOCKDM, CMP #### [facility] [address] [place], [place] [address] Nelida Bautista ALP [Catalytic activity/Vol] 103 U/L Normal 38-[address] [facility] Comment on above: Performed By: #### T HAYDE CMADM, CMP #### [facility] [address] [place], [place] [address] Nelida Lily ALT [Catalytic activity/Vol] 35 U/L Normal 9-[address] [facility] Comment on above: Performed By: #### T HAYDE CMADM, CMP #### [facility] [address] [place], [place] [address] Nelidajose Bautista Anion gap [Moles/Vol] 13.3 mmol/L Normal [facility] Comment on above: Performed By: #### T JOÃO LOCK, CMP #### [facility] [address] [place] [address] Nelida Lily AST [Catalytic activity/Vol] 28 U/L Normal 14-[address] [facility] Comment on above: Performed By: #### T JOÃO LOCK, CMP #### [facility] [address] [place] [address] Nelida Lily Bilirubin [Mass/Vol] 0.2 mg/dL Normal 0.2-1.[address] [facility] Comment on above: Performed By: #### T JOÃO LOCK, CMP #### [facility] [address] [place] [address] Nelida Lily Calcium [Mass/Vol] 9.0 mg/dL Normal 8.4-10.2 The [facility] Comment on above: Performed By: #### T JOÃO LOCK, CMP #### [facility] [address] [place] [address] Nelida Lily Chloride [Moles/Vol] 108 mmol/L Critically high 98-[address] [facility] Comment on above: Performed By: #### T JOÃO LOCK, CMP #### [facility] [address] [place] [address] Nelida Lily CO2 [Moles/Vol] 25.8 mmol/L Normal 22.0-30.0 The [facility] Comment on above: Performed By: #### T JOÃO LOCK, CMP #### [facility] [address] [place] [address] Nelida Lily Creatinine [Mass/Vol] 1.00 mg/dL Normal 0.52-1.[address] [facility] Comment on above: Performed By: #### T JOÃO LOCK, CMP #### [facility] [address] [place] [address] Nelida Lily EGFR-AF SWEDISH >60 Normal >=60 The [facility] Comment on above: Performed By: #### T JOÃO LOCK, CMP #### [facility] [address] [place] [address] Nelida Lily EGFR-NON AF SWEDISH >60 Normal >=[address] [facility] Comment on above: Performed By: #### T JOÃO LOCK, CMP #### [facility] [address] [address] Nelida Lily Globulin (S) [Mass/Vol] 4.2 g/dL Normal [facility] Comment on above: Performed By: #### T JOÃO LOCK, CMP #### [facility] [address] [address] Nelida Lily Glucose [Mass/Vol] 95 mg/dL Normal 74-106 [facility] Comment on above: Performed By: #### T JOÃO LOCK, CMP #### [facility] [address] [place] [address] Nelida Lily Potassium [Moles/Vol] 4.1 mmol/L Normal 3.4-5.[address] [facility] Comment on above: Performed By: #### T JOÃO LOCK, CMP #### [facility] [address] [place] [address] Nelida Lily Protein [Mass/Vol] 7.8 g/dL Normal 6.1-8.2 [facility] Comment on above: Performed By: #### T JOÃO LOCK, CMP #### [facility] [address] [place] [address] Nelida Lily Sodium [Moles/Vol] 143 mmol/L Normal 137-145 [facility] Comment on above: Performed By: #### T JOÃO LOCK, CMP #### [facility] [address] [place] [address] Nelida Lily Urea nitrogen [Mass/Vol] 10.0 mg/dL Normal 7.0-17.[address] [facility] Comment on above: Performed By: #### T JOÃO LOCK, CMP #### [facility] [address] [place] [address] Nelida Lily Urea nitrogen/Creatinine [Mass ratio] 10.0 mg/mg Normal [facility] Comment on above: Performed By: #### T JOÃO LOCK, CMP #### [facility] [address] [place], [place] [address] Nelida Bautista TSHon 02-23-2021 TSH 1.157 uIU/mL Normal 0.470-4.680 [facility] Comment on above: Performed By: #### T JOÃO LOCK, CMP #### [facility] [address] [place], [place] [address] Nelida Bautista TSH RANGE SEE BELOW Normal [facility] Comment on above: Result Comment: <0.3 4 UIU/ml HYPERTHYROID 0.34-5.60 UIU/ml EUTHYROID >5.60 UIU/ml HYPOTHYROID Performed By: #### T JOÃO LOCK, CMP #### [facility] [address] [place], [place] [address] Nelida Bautista XR CHEST 1 Von 02-23-2021 XR CHEST 1 V EXAMINATION: XR CHEST 1 V HISTORY: NAUSEA WITH VOMITING, UNSPECIFIED COMPARISON: No relevant comparison available. FINDINGS: LUNGS: No significant pulmonary parenchymal abnormalities. VASCULATURE: No increased pulmonary vasculature. PLEURA: No pneumothorax, effusion, or pleural thickening. CARDIAC: No cardiomegaly or cardiac silhouette abnormality. MEDIASTINUM: No visible mass or adenopathy. BONES: No fracture or visible bone lesion. OTHER: Negative. IMPRESSION: 1. Normal examination. Electronically authenticated by: JANESSA SKINNER Date: 2021-02-23 13:[address] [facility] Encounters Encounter Date Encounter Type Care Provider Facility Start: 12-22-2021 End: 12-22-20[facility] Start: 02-23-2021 End: 02-23-[address] DOCTOR GOODSON Facility: Payers Date Payer Category Payer Unknown [id number] 1957 Unknown [id number] Summary Purpose Family History No Family History Records FoundNo Family History Records FoundNo Family History Records Found Advance Directives No Advanced Directives Records FoundNo Advanced Directives Records FoundNo Advanced Directives Records Found Additional Source Comments INFORMATION SOURCE (unrecogn ized section and content) DATE CREATED AUTHOR 02/28/2021 [facility] DATE CREATED AUTHOR AUTHOR'S ORGANIZ ATION 12/24/2021 [facility] DATE CREATED AUTHOR AUTHOR'S ORGANIZ ATION 01/01/2022 [facility] FOR RECORDS PERTAINING TO PATIENTS WHO ARE OR HAVE BEEN ENROLLED IN A CHEMICAL DEPENDENCY/SUBSTANCEABUSE PROGRAM, SOME INFORMATION MAY BE OMITTED. This clinical summary was aggregated from multiple sources. Caution should be exercised in using it in the provision of clinical care. This summary normalizes information from multiple sources, and as a consequence, information in this document may materially change the coding, format and clinical context of patient data. In addition, data may be omitted in some cases. CLINICAL DECISIONS SHOULD BE BASED ON THE PRIMARY CLINICAL RECORDS. [facility] [employer] provides no warranty or guarantee of the accuracy or completeness of information in this document.
[2023-08-23 10:10] LABS: Estimated Average Glucose 103 mg/dL; Glycohemoglobin A1C 5.2 % (4.5-6.2)
[2023-08-23 10:20] LABS: Basophils Percent Auto 0.5 % (0.2-2.0); Eosinophils Absolute Auto 0.1 10^3/uL (0.0-0.7); Eosinophils Percent Auto 0.9 % (0.9-7.0); Hematocrit 40.3 % (36.0-48.0); Hemoglobin 13.4 g/dL (12.0-16.0); Immature Granulocytes Abs Auto 0.03 10^3/uL (0.00-0.03); Immature Granulocytes Pct Auto 0.4 % (0.0-0.5); Lymphocytes Absolute Auto 1.8 10^3/uL (1.2-3.8); Lymphocytes Percent Auto 24.1 % (20.5-60.0); Mean Corpuscular HGB Conc 33.3 g/dL (29.9-35.2); Mean Corpuscular Hemoglobin 31.4 pg (26.7-34.0); Mean Corpuscular Volume 94.4 fL (81.0-99.0); Mean Platelet Volume 10.2 fL (9.5-13.5); Monocytes Absolute Auto 0.4 10^3/uL (0.3-0.8); Monocytes Percent Auto 4.8 % (1.7-12.0); Neutrophils Absolute Auto 5.2 10^3/uL (1.4-6.5); Neutrophils Percent Auto 69.3 % (43.0-75.0); Platelet Count 371 10^3/uL (150-450); Red Blood Count 4.27 10^6/uL (4.20-5.40); White Blood Count 7.5 10^3/uL (4.0-11.0)
[2023-08-24 08:09] LABS: HBsAg Screen Negative (Negative); HCV Ab Non Reactive (Non Reactive)
[2023-08-24 10:09] LABS: HIV Ab/p24 Ag Screen Non Reactive (Non Reactive); Rapid Plasma Reagin, Quant Non Reactive titer (NonRea<1:1)
== END 2023-08-23 08:51 | disposition home or self-care (01) ==
PROVIDERS: Visit Provider Obstetrics & Gynecology
DX: Z34.80 Encounter for supervision of other normal pregnancy, unspecified trimester (principal)
CPT/HCPCS: 36415; 83036; 85025; 86592; 86762; 86803; 86850; 86900; 86901; 87086; 87340; 87389

== ENCOUNTER 2023-09-23 20:52 | Outpatient (REF) | payer BC, SELFPAY ==
--- OUTSIDE RECORDS SUMMARY | 2023-09-23 21:03 | XMS_ITS | CCD ---
Author Name Unknown Address Formerly [facility] [place] [address] Organization [facility] Care Team Providers Care Bleach Analyst Name Role Phone NAINAC, DR OLSON Primary Care Unavailable PAY, DR OLSEN Admitting Unavailable PAY, DR OLSEN Attending Unavailable ZIEBER, DR JANESSA Davila Consulting Unavailable PAY, DR OLSEN Consulting Unavailable JARVIS RODRIGUEZ Referring Unavailable JARVIS RODRIGUEZ Primary Care Unavailable [...] Coding Summaryon 12-31-2021 Coding Summary HTMLBase 64 SrztvobbTQl2yZl+PGhl YWQ+IZ1OEFDcG26abZUt wS6WQ2uQWB2YEVYVUGFO DP4LYZ3mvIN8KCcsV5Li biAv DpyzpIDlKP46AOj3KMO6 hWggUMvuoL1hjNLxA8t2 UaUaWD60aZ94YPiyJZRj XyV1QfOitzpcvPVa D1dkAvHrvHKnUju+PHRh YmxlIHdpZHRoPScxMDAl ZdEypCzrTB2hQz9jDXAt LWNvbGxhcHNlOiBj b1jlGHUrGPmgYQ5qvSgy F9AmhHI0SKStl0j0Yg91 dHI+XZAvFCR6sRgmXWbw y477EaMvm3fjTGN5 tJHtBTnqVOV4R15mw6I2 XBAtEXNcRLQ2wMV8jC1p kZmfbmhzC1KykTLcMeU0 AMQ8kGLgeW5tbJgt cuvgkW7mHfs+P86WPJ2D BSQVFV9ZDyz0E7LuMvwh dHI+VY41PLCxAW14rASk mGYbh4jprZf6IoVx KNGqAYW7xZnqTNrhq9Da OXLlV18asIKcy8U9VKYo yGrpxPYzSyHhaPF6dU6o HUprrmbfy1vbmuto Frrmn0dywk43yM97K23h MBfcWHPsECQ0ZQHlKTKp tHsqsl3vwV6lGu5+IDxj u1waw1nqrTb2CzHj OUDrwkEtgNurJSW8x9Om Qq20G9VhpXvjm7WuWvi9 oy38yHZkq1T0qTX8TYnv ZWFssC7mZFkmPpL8 GKLmDjIhsX74xLXmUKhf Nx6qkEiqjHbjHB7yPDMn mumuNCChqS7oKXTuySYf xHiyYJ6cXWUsxilf b359RsAiWMK9JOIcrWNa J7HqlB8mDiTtKBOqQYFs M9FsrIVfEVkaI792EPin WyD3RGIxifStX5Js RLYgvFtuYvX0c3O5Zf5S q0NrcsrhNIC4HEtaORZ9 ToD2SoYrGfH0T1UpBvh3 MCLbrKeiHP4aB3Qc XIZbngatxdajgUN6BDYz SEBnlV98eOCcEMejQh9n t0B9z284NLMhZKBfoB35 Qp5yzZqvZCQrrLYR bZ8aczgnk4khwcyvGoAc MRHoTCz3LCc5SGDjbTbx QpHxLGU1DfX4XYM2rXTz lB4icQhyeqicfN1j Oyc+Q24pgT7cDZL7GQW2 gvkxPPJilpUmCR09LP79 Z7YrAxxepHJfcDE+PGRp bbGufCquAX5fXgRd u0xmk9YcZGebS4LjKJYv GIvsCzj3KEUeIZQ5hIQ6 hF9cNFRxGTogm8S5zSI4 A0HskqXnrm0xz1mx YHXnBVqaT30dtHNsc8U9 JMDzdVZ0CLVbnRamBrRr vU85Ysf+YTSgoJecf9Ok Ecvck2pqu9lzzPo4 IjMwJSIgdmFsaWduPSJ0 l8BjYr63H75fVHtjJHBp VTCnALTgMAFayUdjjm8q dF1wVr7+PGNvbCB3 qBG0yZ0jYLTqRhU1SHuz H143GuPowFGeApeej6al p4rxfWh3AdOvINWjumTh rLlpGDK8v8PoRx43 X82hOQbxWYQrWIWfFFWh FREymTbtdk3uhE0pOw8+ XJ9sv6bxce74iN45dAY+ IOJaBMK8oHzqDDph QXColO8sHQuvVbI2QBNw OvTsnL43pEJzIWjjFz9m lPmamHxbML6aQTVpvrst h989TjKsg9bnXBTm rSKjPYggWDA9B99on2B0 QEBfKTUfMVX5qNY0jK2v bGlnbjogbGVmdDsgdmVy uSkoGQwtNCvaY354 IHRvcDsnPlBhdGllbnQg ObNuGTm3R9RtBjk5OKWc aYztUA1amGHxFHmoLp3f mEdfzYdyWT4yLUMy cdoqn161DbWdm4tzCQTm uOXeVCqmSKQ8G95fx8I1 XTKdBPFrRFH1dER1mT8i bGlnbjogbGVmdDsg chKkgMybJXonVLwsP756 IHRvcDsnPkJpcnRoIERh lVH4YO21RH58hIRxh2P5 gMR7L9WnDEOxtndl uviecUP0EGMnJVTqyI63 Yz6epNvsDu5uTKWtRHQ3 XLLciRLgT6TpwN2sIyQm ASIoTROmJ2VozCJz ZWovS070VVcnYcU9VGOe yhPbL2FzJEEkiJinFcC2 i9D3Pc1WF6K6TA46UH49 fDVqt8S5iLF4F9Iw IFZcvkwazlbxeRT5VMAt SGQqqM49Gs7lpOylJw2w HFBsWZE6EJUkkRAgJ7Pc cV8iMzKuSLWbDUQc D4BwoTJaNUqwZ437XYio SvT7HGLwtcNzK0ZmDSRu zZnsZaA9m2V6Bu3FPLf6 AQ22DM24rMEoq1K7 bSC9P0JkOBQvpaxieotl qKI3QEOqSDHyuE07Vq2t yQylPr0xNZNmZFG9SZLq kUIjR0KxzR7uIiOv MZQbKJTuY3MwoZLpMAay G388HCbwFiY3FBHwdcWa A7BpMFRkkRmfOmC5d5B5 Gs3NJEObFE90NKW9 iLL1WS33RJ86R4VvJrkr dGFibGU+PHRhYmxlIHdp ZHRoPScxMDAlJyBzdHls HR7lSt7qMMMgVQUi kLjwkSWpFlGvb4ezGXRk EQvxJI9ssLimB6HhmQF5 YGZrz7z4Ms92I40mS9Rz dXA+FFWsvYF4iKX2 rY3nGlBuDfA2MVwkD594 KxIllSNlHuaib2eah1cb yRk3NfY5MITfgdJgyRdy VBP2z6QfPx63C86e IHdpZHRoPSIxNSUiIHZh hMzfut0dfY3mDl8+PGNv tNP7fXP4qG9fQuCiGzC9 SUphF683WlFpvMVq Znija5fre6bpdKg7OvHz LXKuxhSudThnODE6e7Bc Gn89X4DwjGofr5OlNqo2 fk58tGSym0R5aRK0 S1BjQZXxvuzorBWcaOtc LB2bZDCdbanfCFJieB8f JXYkW4a6MvCvYpD4ZXxb S6IhruD1ZYBgrUNy MRjaVXX4W27mc4P3TJRz HLNhZNL1rZU2zI6phHbg bjogbGVmdDsgdmVydGlj YUpfQIwoB305YREp mYfnCATpiA1fRAAmdWDo vVakSZ1gRWCtnrklPqqU GEBRMMYUSROZDrRSWJ98 CQ31gUZer0Q6aOB9 D3HaUZZyosfudueslKM7 WEVdUYBsmH16gEWxQLez Fb1pa0K2h955NNGtMHSu wP83La5azSmtOFJv cCDTqZ5cmpsvw7zqgfgz VuBfJJEjIYv3UMt0CZVk wNdbGeFtOYU4OrS7ENI9 zXKtdZ9aeFvgsmrf fA5dZmv+MDEvMDgvMTk4 ODwvdGQ+CVPlJLY0fXhd GIktEIBwfV3eYWLdV1m6 PoUwDdA5RFeiO7Ii YUBeiqnzIy19pF7dDnOg ZpD0OOfwY5MiczX4EXNi lSVbMQcoEJO4Q65dd7W0 OONiGDFlUQM3oLK4 cV8hyLxoqorzaCZiyIic xvJqjGqhXMcyVZojJ148 BEBppEevGvX6GNybKDJt QU99FX00vYWcc4O1 tJV1V5LiHHTbqhivjody nPM7GMRoPVHczF10rZDp THfcTb2qg3B2s476ZHWl YIJzqV23Br0teFna XSCfqNUSaK7mbudry7ge lslwFjXiYNNdIEg6AUd9 EDYnmBgoFyGdRSY7AqW1 DER8eWLtjF4mvTlr dckhiN5rQdg+RkVNQUxF XY81KW45mUIat5U4oWT3 E7VwNZDddlorjndfkIG0 GDOtZMSabU27xBSb RTraGa6zw2L1w425FQMy FKThdB75Ma2orTyvPQZw gJHYgS6willea8eidnli DiMjOTOzHAt8JEy4 WXTqbTroNpByCYO3EhW6 GEV6tFYuxA2fvEsewffy wO6yYgu+R2Z3G0MaOzof dHI+NO65MNOqRL45 rKNaeQOle6iqzGe1DrPl KRLuMDO5eAvsKEgcf9Ke QFKdK00pdCBss5V2MCPg bGxhcHNlOyBlbXB0 mX5pVXczvjpqa2xdkjfv Gfxyl6vloc46dK24N34g IHdpZHRoPSIzMCUiIHZh yEdvli3hlI5gQd3+ MMDjuAB5xJR0hR3cZsDo InI1TLcdJ141AyCriEVo Dxhjs1kbs3pdxMi5UbVd JSIgdmFsaWduPSJ0 r6UcUj56U92jECyzUBQn TTDrHARuMTVshSevyt5r aR1mPn1+RT3ed3dioq28 uP90ySI+PHRkIHN0 bVkqLEfdRDWweD2nSPop ErV8OIXyYiXouA78zNCh OYwoGc9umNerhEqkYU4i AZCacszyk944UiDt h1azDJMvrEUcVPmvPOA2 W75xa1P8YCWcFTVlAGO4 cPK3fS0hbDlybqqxbQRo dDsgdmVydGljYWwt KZerL175NRVsjZmaLsHh vTNmW6phehPMCE9sQuso dGQ+KTRxPSP7fJesHGzd DKLkjH7bUDHaB4p7 GuSzJdY1UTaxY9FikfV7 CVWfjJEwFKMcuAJOlC8h hqquo3wbilvhNcYnERQu VQv8FZm3TDKcrVkm FbOsWAL0QzM2SIC9sIMh dA3pxDhlljdedS4bGwk+ RklOOjwvdGQ+PHRkIHN0 iHhvKEakIRXalV8b KQSxW6s5ObZzLrE5RLzp H5GkerR1NEIlkFIuJCQi bCNYhG6thxhnl5dqrekv GkFvYXHrUQo3HZh1 XFIkqAbbKzKwPUA5HdQ4 GCD4rOVnwE9lyYitpurw cF3xNcy+TVJOOjwvdGQ+ LFCrIBY0bZjpVZgr IWVnzV1bLCWjU6r1EcRp IqY0EJhoY3RewbQ8QFBb vUMgHCAfgHTLtW5aseql d4naljyrLsZaAISy VWm2EWl8APYcuTawEcYo OOJ3ErV4JPH4kKNikN2t pDfswsghtI2eQio+UGF5 YMI7UK60ZZ31Z6Lu PjwvdGFibGU+PHRhYmxl IHdpZHRoPScxMDAlJyBz nFcxJJ2jVg3sROVeBEDc yKuktUBkSaAoj0ba YXB (more content not included)... [facility] Coding Summary HTMLBase 64 GnhxfrhnVOe6wZp+PGhl YWQ+YZ6JBDQyM65sgQHk tG4FH1wWXH4VNDMBURSX LX3SOH0irKS1GDjyL7Cj biAv TitzfFYfUB24KBd9BAK6 yMpkOPfohN9ntGUpT5w3 FcUwNI64nI97VAzbBDCj DuS9NnIsimjqnROi N1wgUhShsYXhPpi+PHRh YmxlIHdpZHRoPScxMDAl CpHrxRanYY1nIn3bBRSr LWNvbGxhcHNlOiBj h3gjIJIeDLrvDT6doJxu A8YfsEA0MZRhc6d2Uq88 dHI+LUVnLPS0rIbgNObd i788FcIek6vqBFZ0 yWHyXLluFHO3L67st3N1 LCSaOKWeXMG8cZS8bS9f vXqejyvfX4IckLIuCyC5 CNI8sLFyqA7iuMjj ruagyR8hYfk+W37HMO6D WGVEVP0UPnh0Y6SpSjqo dHI+ZO57FGDkOP46vVPu mLKny6fqqRa3BdYk IPKcLMN9tBjyHDbxw0Zt WAAeD13puHYcn6Q4GHUs cPwzbIVqMtCcoAM9oM9h VOckjsxqi3ldwfeg Eacaq8sdgt60lT03Q33q SXlfSQBfUCR2WNQuIBEy zBynxu0lmV3lEk6+IDxj x2nnq1dujJm1NbLu NITeloMjiIctRAJ9p0Sp Pt75Z3VsmGijx6VnFxv0 fn22dVLvu0G3uCR6QDut QFZqoW9lOSosZcF6 MVUnPxOijW59aJKoMMlj Mi7lbZypqNcyLS1zTMNw mmlfEESphI7vKZFzlZEv sEfpKN9uRVMtfold o250QyAhEEF9MYYtxNPj W9HseS1cTfKeMHKxEVIu H3NocIXtFJhfZ545ZKqo ZkM8MOSsavWuY7Wl KXQcqFivYmF5h3R6Io0B t0KxalitEKD8LDyuGYW5 HoR2FcVvNwY1J5MsHxz8 ZGTfwFokCA3wE8Sw APWznphmjklzjPI9LHFl OVEqjC23fWFbTNtfKl6o i6P5f289FTUiMGJhwE45 Wr5jxWvkLLWxaBDE sE2apetaw3skkaraHbKz AVBfJEw8COt1YYPkeKfb EeVrEXY1GmW1DQD6zHOl cS5cvRicqtvnsU0w Oyc+K46irH9bMKO7TQH9 tkfcGTAthiYeQI47PJ11 A4NfPjhgoQCazHM+PGRp kzIluPaxVZ2gWgTq g6vag8LcBVzaL0JsNURi JCwdYdx1PTTjHUB2aNI1 jN2kMQRaMYgta2P6jNI2 X5BppiAskt7bw2ro BQSmRZdhV15pkIAig6Q0 NQHruJU5KYOooZjhFnDv sT17Znj+RUPoePfuj7Kr Nhzeh5evm4nlwFm0 IjMwJSIgdmFsaWduPSJ0 m4KhEj82J28jWPubLHOk WYVzIAFfXHQinPouuy1f aD8tGi9+PGNvbCB3 rFS6qL5bAWLeQnB5BIwk B068HtSveQMwNrchv8oa a4upsLo1NhWqFOHjhrTt aTpaCJI5g2MwYe08 P46hMZioBIOxKVUhKEDw BLOcgHfpop7flL1aHl5+ PT4ih3wikn89vQ11bUM+ DXNyGWJ5sDgdCMnr IDTwdG1bUGgwWsX9RTAr TsOupZ00aROpGJoiIf6y vRhsoXikKS8aTFXpypqr p698UmFsh5vxFWSn hVWkYJbxLXC6R42bb4S6 GBLqCKYpOTV8aTM8jE6j bGlnbjogbGVmdDsgdmVy aZfqYYsvMTqkD934 IHRvcDsnPlBhdGllbnQg UqOmVPz4S2SdLgb6AEBt gTyqGL6yxKLbXCmjLc8b fTgxbWzbCT3iDZOf kmyfr304AyDtr2vzOTBp sHVzJQedHJL7W13tn7E5 AWYvTWWrLVK2lVM4lB4d bGlnbjogbGVmdDsg uvVfvUsgHBemQHsyX996 IHRvcDsnPkJpcnRoIERh oOK5DJ50VF12iINrp4J5 nJL8J1RqQIRommre pdyswOU5BDQgANFekZ17 Zk2vxYteGs3bFVTzYYP0 FDVstQPcS5PrdW2zTbKo ROBjDPLdY7BkcQJk OBvbB737MPjiAxG7SGGl fhQwM5SqLLXmtLkuWzP5 a1M5Hv5CC4Q5IG96LP01 uWQrj2T1jQO1D9Cr QJRtyezimochhVM3ZZNi RBFvwO34Dj6qfSttWz3a NCJrIOY2QSRujNPuX5Rf lS4nUpNhFNRxNJXm Y3GthKSrIZkfO205GPaq JhL1LPQhknAsJ4AyGQJz mCctCaO2c5P7Mn0QEEd6 IR15RO39zFAqk7V9 xDD2S0IyWOVyyoavgdxh lYP8MWZnQQIgvW39Ap6c mSefCy7bODZpCOO7MGWr cFJwU5ArwR7hXlCp GVEaRHVoJ2UxyRAwEQyq U194LOicXsU2AHMtmtQf T7LjOCFcmBbvLhC0y0F9 Qu0AVHMoFX24MDU4 aTP5YJ32GD55K6MpTlcs dGFibGU+PHRhYmxlIHdp ZHRoPScxMDAlJyBzdHls VL7aEw1cLUJoLHNb eHcciKWpIyWbs5xmHHKe QEixCF7gkKsqD1JpdBZ8 GLEmx6g4Dt48S39zJ2Tk dXA+HQOsyTI7mOA2 iZ0nVnQmByN0QOhoQ529 ClVuaAUjAchdc0gor7tl lQn4CyQ7NVMqtxBmqAlb RDL0e6OuGo49R12e IHdpZHRoPSIxNSUiIHZh zKjlxv1bmP0eTd9+PGNv gEE3dGK9vQ6sInMmDkJ6 XUmnG630MlAxkSSu Pdouh6ndg2afvDi6AzDc VDVxckFsiBweMUH1m7So Rv59K8LvjZtja0MvGdi5 bp57pYHai3C9lXR9 K4GqHUFqbjaepNNcpVte YQ6uUISntswiSBYkcW2s OSXhW6z1PpScQiF9NDzq L9PbxkN9HBRquZGs XAcjVXL9F86oj5D3MLUk CQOhMQB5lSD7pJ1wvWrq bjogbGVmdDsgdmVydGlj XVvkMTjvW488ODXd xMicHPBwoY8tVVYxdRBp pRwqHG7gPWQiekoiShxI ESWZEENIFGSCOtDFES62 AA21cHZzr9T0hUS4 B9DdALDsmcpmrqkwqXD1 VHQpUSFgpI03lGCxBCjz Uo0fa3R3e605TIQnNASm kJ64Ub9hbQiiXTIu iHUDpB9pphqif1mwpduu MsJmIGPwIFm9DVo4BXSv vKjlFgQfKEH7CsP5AJS1 uLSsbZ3xfSkbztll mO9qYbg+MDEvMDgvMTk4 ODwvdGQ+TQDyCSI8tWho JRmsVLPdwZ1pDEGfO9f5 CzEzFqE7JXhrH4Oz OPFmrbxvFe48kT7mLaTr ZqB1XWlaK8TmqfT9AIKx jLTtSLjbLAZ3F22ql7U6 PREyYUXbGDX1gTO5 aP5nkBlwwqxrcASefFvr zwPqpLrnKMauUFvvC885 NQYlpPbeNzX8HHiaFWXh UQ32OD77yKCsd7P7 tDA9E1EkJBMuwimvuknj vCN0QCTzXPAbrP38iVSs BTfrTh7am8H9f405DVDr OUEjzW76Bs1ojWen GXZshUMHfA8kcjslr7ka zubzKiFeVALpRHr9ZAp2 WLAlsErtRuQoQMS6SoD0 OLG9mQPbcC0gpAgb bvjegL7gXab+RkVNQUxF DD40ME04pFNfe9H7mJC7 J1QrZDNjeftvumwvkDL2 QIPkPZFdwJ31kLLp CCiqXz7lg3E2j311SMSy KHXbaU69Xl7pkYkeEBKa mDFKqV2kdelwj6edytab IoBqYZYsIYm6EMc3 YMYiuQuwJtCbMDX7UaB9 EAL3oZTjuZ2lzJdneebo iW3cKxw+TN1zsorrnzO9 AC65HF86V1HhRzww dGFibGU+PHRhYmxlIHdp ZHRoPScxMDAlJyBzdHls WN8zWt4yDCWySIFiwQbn cOEwCpMmj1cySGDx GWddKW2toXhyZ1JmbUI9 AHPjv0u1Bp76C38kE5Tu dXA+LMPjuWO3yJQ7sD4x XxKaWoQ3EYpaP898 GyCykHBmNvzfs2tvk6ak hWu7TcEaZBIbrlKwtIjj XPO0w1DzRx09E78yAGkf ZHRoPSIyMCUiIHZh lQbzez7dvP1oAk7+PGNv nIK2rML7hM6pAhLfMbL0 ZYmvC431QmKtmEPnLgts E78fS1QikPI+PHRy Lnk3OOFfdUnqJT5ieXUs RRzhHy7dUDG3RnVfXhTz JPdeJ2BrECFywpprwpfk kLG3HXJuPDMhyV91 Fp9xpPpbQv3bLKFkHCW7 JKZorGVpO7QtnC7gSiAa SSZnANOhD1UhyBEfNSji H049XGdeVqT7YJRn iyKiL7TdJVPeiUhcZzV0 q8O6Mz2GtTfgaFHzEA6q NyTxMQm9H1MjMot2YJCt eZrgQW6kqDXqBQcg Ph1wfIyzrFtlJE3yDRPy rbgof932FaZdp3nzRRJi tCQhXMcbIGA0Q63ir5T6 CMRsWDKxCXL8zDP3 vC6arYczabenlAIcnDpn xdQqeJovXLhcDXjfX131 ODQipYwuJcWEVrc4Z8Nr Llr1OBZhsCedBQ1s lDIuYKkwJb5psYjooPnj BW8lTLVtsdgza953XuCo g9dmOJKchSTbMVheKXR3 X91dc2T6XXTrPINz ETY3eIY7sR2siYgpcsin bGVmdDsgdmVydGljYWwt GLctI349HNVhqGgcBr2Y Cme2O5GeDoj5RFUv gVdnWV4klYIaXFmtMk4e fQyhgWufVZ7kOGRwilxt i750ZvMiw2keYMUabCLk WLxfEAA3V95ce0D8 LJTdWWKjFAG4gUW0pA0y bGlnbjogbGVmdDsgdmVy fKvcNDwuYTvcU074SOGo cDsnPlBheWVyOjwv dGQ+KH92fo12B2MaCfyb Neu0JEOsRCA7nIA7zM0c OCTaTBpit1N4aPD9K2Lg vzNtbj9sh1gaGSYj ZTo (more content not included)... [facility] Ambulance Noteon 12-26-2021 Ambulance Note [id number] [email or web address] [facility] ED Clinical Summaryon 2021 ED Clinical Summary [facility] - Emergency Department [address] [place], [place] [id number] ED Clinical Summary PERSON INFORMATION Name: LOCO HICKS Age: 36 Years Sex: FEMALE : 1985 MRN: Acct#: Visit Reason: Dizziness; FACIAL NUMBNESS, DIZZINESS Arrival: 12/21/2021 18:23:41 Discharge: 12/22/2021 00:02:00 LOS: 000 05:39 Check In: 12/21/2021 18:23:41 Checkout:12/22/2021 00:02:00 Address: [address] [place] [id number] PCP: Provider, None PROVIDER INFORMATION Provider Role Assigned Unassigned Alvin Bryan ED Provider 12/21/2021 18:26:52 12/21/2021 18:30:20 Sanjuana Ramirez WAREHOUSE EXAMINER Nurse 12/21/2021 18:29:17 12/21/2021 23:14:12 MARIAJOSE EDEN ED PA 12/21/2021 18:30:25 Kerline Cartagena WAREHOUSE EXAMINER Nurse 12/21/2021 21:46:32 Kerline Merrill RN ED [...] - pharynx pink and moist. NECK: -Supple ([id number]): non-tender. CARD: -Rate and rhythm: Regular -Edema: No -Calf pain: No RESP: -Respiratory effort and chest excursion with respirations: Normal -Breath sounds equal bilaterally: Clear -Wheezes: No -Rales: No BACK: -Signs of pain with movement: No ABD: -Distended: No (more content not included)... [facility] ED Patient Education Noteon 12-22-2021 ED Patient Education Note Education Materials [facility] ED Patient Summaryon 022 ED Patient Summary [facility] - Emergency Department [address] [place], [place] [id number] PATIENT DISCHARGE INSTRUCTIONS Patient Information Name: LOCO HICKS Age: 36 Years Date of : 1985 Reason For Visit: Dizziness; FACIAL NUMBNESS, DIZZINESS Arrival Time: 12/21/2021 18:23:41 Primary Care Physician: Provider, None Attending Physician: Alvin Bryan Comment: Visit Diagnosis: Diagnoses This Visit Dizziness ([id number]) Paresthesias (R20.2) Visual disturbance (H53.9) Prescription Information: If you have been given a prescription for narcotics, seek immediate medical attention if you have any difficulty breathing or any sudden status changes such as confusion and sleepiness. If you or anyone you know is experiencing suicidal thoughts, mental health, alcohol and/or drug addiction problems; contact the [facility] 17/02 Crisis Hotline -Text 4HOPE to 005655. If you received any narcotics, sedation, or [...] and treatment you received today in the [facility] Emergency Department were for an urgent problem and are not intended as complete care. It is important for you to follow up with a doctor, nurse practitioner, or physician?s curriculum assistant principal for ongoing care. If your symptoms become [...] so we can reach you if necessary. [facility] Emergency Department has provided you with a complete list of medications post discharge. Please inform your erp analyst/provider of your visit and for further instruction [...] for Disease Control and Prevention March 2014 [facility] MRI BRAIN W WO CONTRASTon MRI [...] Ean Cedillo MD 12/22/21 Final result Normal [facility] MRI CERVICAL SPINE W WO CONT [facility] 12-22-2021 MRI CERVICAL SPINE W WO CONTRAST [...] Ean Cedillo MD 12/22/21 Final result Normal [facility] [id number] 12-22-2021 SARS-CoV-2 (COVID-19) RNA SHELBI+probe Ql (Unsp spec) Not detected Normal NOTDET [facility] Comment on above: Result Comment: Rapid NAAT: [...] management decisions. Fact sheet for Healthcare Providers: https://www.fda.gov/media/247627/download Fact sheet for Patients: https://www.fda.gov/media/226595/download Methodology: Isothermal Nucleic Acid Amplification Performed By: #### C [place]VR[place] #### [place] [address] Corrugated Sheet Material Sheeter: Campbell Simmons MD SARS-CoV-2 (COVID-19) PCRon 12-22-2021 Employed in healthcare? No Invalid Interpretation Code [facility] Comment on above: Performed By: #### 6 [id number] ####[facility] (DEFAULT)[address] [place] [address] Group care resident? No Invalid Interpretation Code [facility] Comment on above: Performed By: #### 6 [id number] ####[facility] (DEFAULT)[address] [place] [address] In ICU? No Invalid Interpretation Code [facility] Comment on above: Performed By: #### 6 [id number] ####[facility] (DEFAULT)[address] [place] [address] status? Not Invalid Interpretation Code [facility] Comment on above: Performed By: #### 6 [id number] ####[facility] (DEFAULT)[address] [place] [address] SARS-CoV-2 (COVID-19) RNA SHELBI+probe Ql (Unsp spec) Not detected Normal Not Detected [facility] Comment on above: Result Comment: Perf ormed by PCR methodology. Performed By: #### 6 [id number] ####[facility] (DEFAULT)[address] [place] [address] SARS-CoV-2 (COVID-19) RNA SHELBI+probe Ql (Unsp spec) No Invalid Interpretation Code [facility] Comment on above: Performed By: #### 6 [id number] ####[facility] (DEFAULT)[address] [place] [address] Symptomatic as defined by CDC? No Invalid Interpretation Code [facility] Comment on above: Performed By: #### 6 [id number] ####[facility] (DEFAULT)[address] [place] [address] Transfer Noteon 12-22-2021 Transfer Note medication list sent with patient, Complete ED chart sent with patient. CD and med list sent w. patient to Hospital [Electronically Signed on: 12/22/2021 00:05 EDT] Nadya Garcia [Verified on: 12/22/2021 00:05 EDT] Nadya Garcia [facility] Transfer Note [id number] #1.00OTGTIFF [facility] Transfer Note [id number]. [id number] #1.00OTGTIFF [facility] Transfer Note transport called, [facility] called for transport to [facility]. Willie joyner will call when back in area from [facility] Trip. [Electronically Signed on: 12/21/2021 22:14 EDT] Nadya Garcia [Verified on: 12/21/2021 22:14 EDT] Nadya Garcia Normal [facility] .Auto Diff 1on 12-21-2021 Auto [place] % 7 % Normal 1-12 [facility] Comment on above: Performed By: #### 7 238538, [id number], 0138334, 76039463, 5801121, 4114882, 7123531381, 5060584, [id number] ####[facility] (DEFAULT)[address] [place] [address] Baso Abs# 0.0 x10 Normal 0.0-0.2 [facility] Comment on above: Performed By: #### 7 507386, [id number], 1328839, 98109207, 0549927, 8641053, 9232238007, 0773503, [id number] ####[facility] (DEFAULT)[address] [place] [address] Basophils/100 WBC (Bld) 0.4 % Normal 0.2-2.0 [facility] Comment on above: Performed By: #### 7 838178, [id number], 1809899, 12678425, 7919007, 4899478, 0157794007, 4588182, 5774757704 ####[facility] (DEFAULT)[address] [place] [address] Eos Abs# 0.1 x10 Normal 0.0-0.4 [facility] Comment on above: Performed By: #### 7 107076, [id number], 3425541, 90457415, 4122099, 0087276, 7400415645, 4130808, 8564799653 ####[facility] (DEFAULT)[address] [place] [address] Eosinophils/100 WBC (Bld) 0.7 % Low 0.9-4.0 [facility] Comment on above: Performed By: #### 7 260507, 0920910459, 9181194, 93896732, 7337223, 4982979, 4316502968, 1942509, 0725011681 ####[facility] (DEFAULT)[address] [place] [address] Lymph Abs# 3.2 x10 High 1.3-2.9 [facility] Comment on above: Performed By: #### 7 526061, [id number], 9002933, 50931677, 2876872, 0209608, 6736589013, 5571503, 3801901085 ####[facility] (DEFAULT)[address] [place] [address] Lymphocytes/100 WBC (Bld) 40 % Normal 14-48 [facility] Comment on above: Performed By: #### 7 650909, 1735075148, 2832188, 35382325, 6763239, 6622288, 7111512918, 4342625, 7658948646 ####[facility] (DEFAULT)[address] [place] [address] [place] Abs# 0.6 x10 Normal 0.0-0.8 [facility] Comment on above: Performed By: #### 7 022254, 6120807205, 1962526, 17839959, 5251942, 1269675, 6425863854, 5403000, 8702369187 ####[facility] (DEFAULT)[address] [place] [address] Neut Abs# 4.3 x10 Normal 1.5-9.2 [facility] Comment on above: Performed By: #### 7 879844, 0794739506, 4956925, 11094757, 5806740, 0264502, 1595523227, 0870117, 2598965004 ####[facility] (DEFAULT)[address] [place] [address] Neutrophils/100 WBC (Bld) 53 % Normal 44-88 [facility] Comment on above: Performed By: #### 7 926584, 6337837927, 3476769, 87879019, 7042517, 3075638, 6097980376, 1061659, 3320934670 ####[facility] (DEFAULT)[address] [place] [address] CBC w/ Auto Diffon 2 Erythrocyte distribution width (RBC) [Ratio] 14.3 % Normal 11.5-15.0 [facility] Comment on above: Performed By: #### 7 096001, 4993726288, 6779694, 21348693, 3420378, 1855400, 1084669668, 1835404, 6601816819 ####[facility] (DEFAULT)[address] [place] [address] Hematocrit (Bld) [Volume fraction] 42.3 % High 33.7-40.4 [facility] Comment on above: Performed By: #### 7 538519, 5647943162, 1843967, 21358088, 9820434, 1235237, 9418784302, 2757818, 6798473215 ####[facility] (DEFAULT)[address] [place] [address] Hemoglobin (Bld) [Mass/Vol] 13.7 g/dL Normal 11.3-15.9 [facility] Comment on above: Performed By: #### 7 426690, 7530677187, 2543306, 88517100, 2375761, 2752664, 6678653312, 1971676, 9606729992 ####[facility] (DEFAULT)[address] [place] [address] Instr WBC 8.2 x10 Invalid Interpretation Code [facility] Comment on above: Performed By: #### 7 897656, 2538443471, 9999916, 52971293, 3698127, 0709168, 3360406251, 2919127, 0325754470 ####[facility] (DEFAULT)[address] [place] [address] Man Diff? Auto Normal [facility] Comment on above: Performed By: #### 7 118925, 3994479017, 9189282, 40820943, 7709799, 7055234, 4962649870, 7069779, 6529677484 ####[facility] (DEFAULT)[address] [place] [address] 79458 MCH (RBC) [Entitic mass] 31 pg Normal 24-34 [facility] Comment on above: Performed By: #### 7 376079, 8543136922, 1269450, 71410247, 2991484, 1192289, 6910870585, 5926977, 1383393977 ####[facility] (DEFAULT)[address] [place] [address] MCHC (RBC) [Mass/Vol] 32 g/dL Normal 26-37 [facility] Comment on above: Performed By: #### 7 350702, 9129261576, 4986412, 08469232, 7894545, 1091220, 9461821756, 1444401, 4809517130 ####[facility] (DEFAULT)[address] [place] [address]14 MCV (RBC) [Entitic vol] 96 fL Normal 81-100 [facility] Comment on above: Performed By: #### 7 372262, 1223780590, 5512438, 54826127, 1367526, 8244283, 7975883994, 3321719, 1061489944 ####[facility] (DEFAULT)[address] [place] [address] Platelet 363 x10 Normal 138-427 [facility] Comment on above: Performed By: #### 7 407894, 4007873501, 1548511, 32310370, 2650305, 5584962, 8999335744, 8451034, 7211303533 ####[facility] (DEFAULT)[address] [place] [address] 20936 Platelet mean volume (Bld) [Entitic vol] 10.2 fL Normal 6.3-10.2 [facility] Comment on above: Performed By: #### 7 904199, 1759562050, 3669785, 69933311, 5635064, 9765070, 5567224253, 4559969, 2919293084 ####[facility] (DEFAULT)[address] [place] [address] 29481 RBC 4.42 x10 Normal 3.70-5.30 [facility] Comment on above: Performed By: #### 7 367774, 7045045785, 8089266, 92315241, 5417550, 0344645, 8775773053, 1210694, 1693071509 ####[facility] (DEFAULT)[address] [place] [address] 84359 WBC 8.2 x10 Normal 3.5-10.5 [facility] Comment on above: Performed By: #### 7 765525, 4386556128, 7514947, 91843898, 9351812, 8445787, 2440232618, 8374872, 5976067735 ####[facility] (DEFAULT)[address] [place] [address] [facility] Standardon 12-21-2021 eGFR Non AA 57 mL/min/1.73m2 Invalid Interpretation Code [facility] Comment on above: Performed By: #### 7 723247, [id number], 7329647, 84980407, 1096821, 2217299, 3222350424, 9298845, [id number] ####[facility] (DEFAULT)[address] [place] [address] 47450 eGFR AA >60 Invalid Interpretation Code [facility] Comment on above: Result Comment: Range Operator nathalia Kidney disease could be indicated at eGFRs of less than 60 ml/min/1.73m2. Kidney Failure is indicated at less than 15 ml/min/1.73m2 Performed By: #### 7 659162, [id number], 4501588, 53935975, 2235952, 5328371, 5013156576, 8928874, 5115879163 ####[facility] (DEFAULT)[address] [place] [address] 02610 Albumin [Mass/Vol] 4.7 g/dL Normal 3.5-5.0 [facility] Comment on above: Performed By: #### 7 812243, [id number], 2156090, 77928753, 0354133, 7309775, 3136857890, 8825391, 4606406448 ####[facility] (DEFAULT)[address] [place] [address] 60226 Albumin/Globulin [Mass ratio] 1.1 {ratio} Low 1.4-2.6 [facility] Comment on above: Performed By: #### 7 826203, 1320056309, 2287313, 42700860, 5927238, 0276639, 9767509755, 7369478, 6630064408 ####[facility] (DEFAULT)[address] [place] [address] 04369 Alk Phos 99 IU/L High 32-91 [facility] Comment on above: Performed By: #### 7 922528, [id number], 0814909, 17188450, 8863490, 7265536, 1730173726, 2508041, 4354483526 ####[facility] (DEFAULT)[address] [place] [address] 88219 ALT [Catalytic activity/Vol] 32.0 U/L Normal 14.0-54.0 [facility] Comment on above: Performed By: #### 7 760671, 3059602658, 7116253, 33663117, 1449599, 6517336, 7346219903, 7916135, 0534033474 ####[facility] (DEFAULT)[address] [place] [address] 14192 Anion gap [Moles/Vol] 23.0 mmol/L High 5.0-19.0 [facility] Comment on above: Performed By: #### 7 129347, 4009138824, 8191603, 16503611, 8716258, 9022447, 1046127077, 7502316, 7435163413 ####[facility] (DEFAULT)[address] [place] [address] 64907 AST [Catalytic activity/Vol] 41 U/L Normal 15-41 [facility] Comment on above: Performed By: #### 7 513896, [id number], 2000852, 47147937, 0986349, 7886994, 2657338864, 7638057, 7094791217 ####[facility] (DEFAULT)[address] [place] [address] 29603 Bili Total 0.4 mg/dL Normal 0.3-1.2 [facility] Comment on above: Performed By: #### 7 343084, 3524381970, 4848107, 68307736, 8810053, 9598432, 8454335820, 1638163, 2599000589 ####[facility] (DEFAULT)[address] [place] [address] 74880 Calcium [Mass/Vol] 10.2 mg/dL Normal 8.9-10.3 [facility] Comment on above: Performed By: #### 7 696947, 5563162391, 5353770, 34728500, 6882254, 4014511, 5216314403, 6841709, 6608325709 ####[facility] (DEFAULT)[address] [place] [address] 41947 Chloride [Moles/Vol] 96 mmol/L Low 101-111 [facility] Comment on above: Performed By: #### 7 641365, 0787315728, 3042462, 66348841, 2656490, 0766734, 5134797860, 9648410, 3865315494 ####[facility] (DEFAULT)[address] [place] [address] 39001 CO2 [Moles/Vol] 24 mmol/L Normal 21-32 [facility] Comment on above: Performed By: #### 7 662233, 7483833207, 3560233, 23612495, 7136774, 6904937, 1582707678, 6032415, 9239196041 ####[facility] (DEFAULT)[address] [place] [address] 26405 Creatinine [Mass/Vol] 1.10 mg/dL Normal 0.60-1.30 [facility] Comment on above: Performed By: #### 7 266742, 8068721195, 8212960, 11639819, 4389416, 6491409, 3593654632, 4384265, 0289608075 ####[facility] (DEFAULT)[address] [place] [address] 84431 Globulin (S) [Mass/Vol] 4.2 g/dL Normal 1.5-4.3 [facility] Comment on above: Performed By: #### 7 450457, 3747343968, 7076696, 36804065, 2292823, 9444117, 8438610999, 6021383, 5339629742 ####[facility] (DEFAULT)[address] [place] [address] 16858 Glucose [Mass/Vol] 97.0 mg/dL Normal 74.0-118.0 [facility] Comment on above: Performed By: #### 7 509541, 4831257149, 4589330, 04894560, 2490869, 2481451, 7099834816, 3068260, 5580943543 ####[facility] (DEFAULT)[address] [place] [address] 31563 Osmolality 278 mOsm/L Invalid Interpretation Code [facility] Comment on above: Performed By: #### 7 176780, 3815845224, 8079371, 19056253, 6803226, 5457301, 5279609252, 1903695, 6709622462 ####[facility] (DEFAULT)[address] [place] [address] 81234 Potassium [Moles/Vol] 3.5 mmol/L Low 3.6-5.1 [facility] Comment on above: Performed By: #### 7 228836, 2004197409, 3208828, 53687234, 9068579, 5655207, 4380716686, 3637847, 7633651428 ####[facility] (DEFAULT)[address] [place] [address] 96636 Protein [Mass/Vol] 8.9 g/dL High 6.5-8.1 [facility] Comment on above: Performed By: #### 7 898872, 2461020769, 5109065, 79048913, 1348505, 4981251, 6127405821, 6770417, 4684369377 ####[facility] (DEFAULT)[address] [place] [address] Sodium [Moles/Vol] 139.0 mmol/L Normal 136.0-144.0 [facility] Comment on above: Performed By: #### 7 075885, 4633447893, 0090178, 07501721, 7541324, 0237386, 1088625207, 5376852, 0238232480 ####[facility] (DEFAULT)[address] [place] [address] 58275 Urea nitrogen [Mass/Vol] 15 mg/dL Normal 8-26 [facility] Comment on above: Performed By: #### 7 618091, 3739687507, 9825316, 97155058, 3464536, 6598551, 7634388439, 8436006, 5659942068 ####[facility] (DEFAULT)[address] [place] [address] 43952 Urea nitrogen/Creatinine [Mass ratio] 14.0 mg/mg Normal 4.6-16.2 [facility] Comment on above: Performed By: #### 7 475025, 1437971197, 5354573, 38627357, 5299699, 9995369, 0842934172, 2640002, 6472071196 ####[facility] (DEFAULT)[address] [place] [address] Head or Brain w/o [facility] 12-[facility]2021 CT Head or Brain w/o Contrast [...] Ha 12/21/21 9:19 pm Technologist: Erwin CHAUDHARI [facility] D-Dimeron 12-21-2021 D-Dimer 0.49 mg/L FEU Normal 0.19-0.50 [facility] Comment on above: Result Comment: The INNOVANCE [...] Liver cirrhosis ? Performed By: #### 7 187815, 5108619689, 9342362, 60360426, 4621147, 2091692, 4651653104, 6615803, 0088139464 ####[facility] (DEFAULT)[address] [place] [address] ED Note - Otheron 12-21-2021 ED Note - Other Neurology called back from [facility], on phone with Mariajose LLANES [Electronically Signed on: 12/21/2021 21:29 EDT] Nadya Garcia [Verified on: 12/21/2021 21:29 EDT] Nadya Garcia [facility] ED Note - Other paging Neurology through [facility] for consult for Mariajose LLANES [Electronically Signed on: 12/21/2021 21:12 EDT] Nadya Garcia [Verified on: 12/21/2021 21:12 EDT] Nadya Garcia [facility] ED Note - Physicianon 2021 ED [...] - pharynx pink and moist. NECK: -Supple ([id number]): non-tender. CARD: -Rate and rhythm: Regular -Edema: [...] I di (more content not included)... Normal [facility] ED Note-Nursingon 12-21-2021 ED Note-Nursing Production Worker assumed care for pt at 2124. Pt had fluids running at that time. Will continue to give the rest of the liter per VO from MARIO ALBERTO. PA also stated that after speaking with neuro, pt is to be transferred to [facility] for MRI and further evaluation. Normal [facility] Ethanol.on 12-21-2021 Ethanol Level 9.0 mg/dL High 0.0-5.0 [facility] Comment on above: Performed By: #### 2 [id number] #### [facility] (DEFAULT) [address] [place] [address] 41383 Extra Morgan 12-21-2021 Tube Collected Yes Invalid Interpretation Code [facility] Comment on above: Performed By: #### 2 119565, [id number] #### [facility] (DEFAULT) [address] [place] [address] Extra Redon 12-21-2021 Tube Collected Yes Invalid Interpretation Code [facility] Comment on above: Performed By: #### 7 938490, 1101730116, 6926837, 89620205, 6100140, 9426914, 6211034320, 7881219, 1355365219 #### [facility] (DEFAULT) [address] [place] [address] 14397 Magnesiumon 12-21-2021 Magnesium [Mass/Vol] 2.02 mg/dL Normal 1.80-2.50 [facility] Comment on above: Performed By: #### 7 713236, 3880174356, 0100164, 15470456, 5328086, 5967842, 9646194045, 2151003, 0400769671 ####[facility] (DEFAULT)[address] [place] [address] 02051 PTon 12-21-2021 INR Coag (PPP) [Relative time] 0.94 {INR} Normal 0.91-1.11 [facility] Comment on above: Performed By: #### 7 720964, 9789733121, 6658133, 21113260, 1469556, 7839232, 9270078536, 7940914, 5659960287 ####[facility] (DEFAULT)[address] [place] [address] PT 10.2 second(s) Normal 9.7-11.8 [facility] Comment on above: Performed By: #### 7 132507, 8208873157, 2242460, 10109651, 4790774, 6201655, 7789390947, 7757677, 7613546490 ####[facility] (DEFAULT)[address] [place] [address] 40815 PTTon 12-21-2021 PTT 26 second(s) Normal 25-35 [facility] Comment on above: Performed By: #### 7 355210, 0357449658, 6158086, 59488970, 7170651, 9934091, 0870453341, 2185072, 2056023644 ####[facility] (DEFAULT)[address] [place] [address] 76898 Test Urine 1 U Preg Negative Normal [facility] Comment on above: Performed By: #### 1 [id number], 185688187 ####[facility] (DEFAULT)[address] [place] [address] 12742 U Preg Internal Control Pass Normal [facility] Comment on above: Performed By: #### 1 [id number], [id number] ####[facility] (DEFAULT)[address] [place] [address] 19260 Salicylateon 12-21-2021 Salicylate Lvl <4.0 Normal 0.0-30.0 [facility] Comment on above: Result Comment: Sali cylate ranges less than 30 mg/dL are considered to be therapeutic. Levels greater than 30 mg/dL are considered toxic and levels greater than 60 mg/dL may be lethal. Performed By: #### 2 756611, 1406970559 #### [facility] (DEFAULT) [address] [place] [address] 45307 TnI HSon 12-21-2021 Troponin I High Sensitivity <2 Normal <=15 [facility] Comment on above: Result Comment: Male Baseline Delta 1Hr (Note pg/mL=ng/L) <20pg/mL 50-60% >20pg/mL 20% Female Baseline Delta 1Hr <15pg/mL 50-60% >15pg/mL 20% Other Baseline Delta 1Hr <18ng/mL 50-60% >18ng/mL 20% ([employer] Guidelines February 2018) Performed By: #### 7 790859, 9816516285, 0792069, 54476458, 2876653, 1383425, 6743965526, 2746845, 4190243500 ####[facility] (DEFAULT)[address] [place] [address] 43342 Triage Panel 12on 12-21-2021 Triage Internal Control Pass Normal [facility] Comment on above: Performed By: #### 1 [id number] ####[facility] (DEFAULT)[address] [place] [address] 89334 U Amph Scr Negative Normal [facility] Comment on above: Performed By: #### 1 [id number] ####[facility] (DEFAULT)[address] [place] [address] 44898 U Vanesa Scr Negative [facility] Comment on above: Performed By: #### 1 [id number] ####[facility] (DEFAULT)[address] [place] [address] 10904 U Benzodia Scr Negative Normal [facility] Comment on above: Performed By: #### 1 [id number] ####[facility] (DEFAULT)[address] [place] [address] 17754 U Cannab Scrn Negative [facility] Comment on above: Performed By: #### 1 [id number] ####[facility] (DEFAULT)[address] [place] [address] 43023 U Cocaine Scr Negative [facility] Comment on above: Performed By: #### 1 [id number] ####[facility] (DEFAULT)[address] [place] [address] 60253 U Methadone Scr Negative [facility] Comment on above: Performed By: #### 1 [id number] ####[facility] (DEFAULT)[address] [place] [address] 94555 U Methamp Scrn Negative [facility] Comment on above: Performed By: #### 1 [id number] ####[facility] (DEFAULT)[address] [place] [address] 36844 U Opiate Scr Negative [facility] Comment on above: Performed By: #### 1 [id number] ####[facility] (DEFAULT)[address] [place] [address] 56837 U Oxycod Scr Negative [facility] Comment on above: Performed By: #### 1 [id number] ####[facility] (DEFAULT)[address] [place] [address] 08445 U Phencyclidine Scr Negative [facility] Comment on above: Performed By: #### 1 [id number] ####[facility] (DEFAULT)[address] [place] [address] 58816 U Propoxyphene Scr Negative Normal [facility] Comment on above: Performed By: #### 1 [id number] ####[facility] (DEFAULT)[address] [place] [address] 78183 U Tricyclic Antidepress Scr Negative [facility] Comment on above: Result Comment: Resu [...] PPX Propoxyphene (Norpropoxyphene): 300 ng/mL THC Cannabinoids (41-sps-0-carboxy- -THC): 50 ng/mL TCA Tricyclic-Antidepressants (Desipramine): 300 ng/mL Performed By: #### 1 [id number] ####[facility] (DEFAULT)[address] [place] [address] Urine Source Clean Catch [facility] Comment on above: Performed By: #### 1 [id number] ####[facility] (DEFAULT)[address] [place] [address] UA w Culture if Ind Standard on 12-21-2021 Color (U) Yellow [facility] Comment on above: Performed By: #### 1 [id number], [id number] ####[facility] (DEFAULT)[address] [place] [address] Culture? Not Indicated Invalid Interpretation Code [facility] Comment on above: Result Comment: Resu lt created by rule GL_MAGR_ADD_UA_CULT1 Performed By: #### 1 [id number], [id number] ####[facility] (DEFAULT)[address] [place] [address] 53568 Glucose (U) [Mass/Vol] Negative [facility] Comment on above: Performed By: #### 1 [id number], [id number] ####[facility] (DEFAULT)[address] [place] [address] 58622 Ketones Ql (U) Negative [facility] Comment on above: Performed By: #### 1 [id number], [id number] ####[facility] (DEFAULT)[address] [place] [address] 97300 Micro? Not Indicated Invalid Interpretation Code [facility] Comment on above: Result Comment: Resu lt created by rule GL_MAGR_ADD_UA_MICRO Performed By: #### 1 [id number], [id number] ####[facility] (DEFAULT)[address] [place] [address] 64721 UA Bilirubin Negative Normal [facility] Comment on above: Performed By: #### 1 [id number], [id number] ####[facility] (DEFAULT)[address] [place] [address] 95449 UA Blood Negative Normal NEGATIVE [facility] Comment on above: Performed By: #### 1 [id number], [id number] ####[facility] (DEFAULT)[address] [place] [address] 54791 UA Clarity CLEAR Normal CLEAR [facility] Comment on above: Performed By: #### 1 [id number], [id number] ####[facility] (DEFAULT)[address] [place] [address] 82423 UA Leuk Est Negative Normal NEGATIVE [facility] Comment on above: Performed By: #### 1 [id number], [id number] ####[facility] (DEFAULT)[address] [place] [address] 90184 UA Nitrite Negative Normal NEGATIVE [facility] Comment on above: Performed By: #### 1 [id number], [id number] ####[facility] (DEFAULT)[address] [place] [address] 73588 UA pH 6.5 Normal 5-8 [facility] Comment on above: Performed By: #### 1 [id number], [id number] ####[facility] (DEFAULT)[address] [place] [address] 67053 UA Protein Negative Normal NEGATIVE [facility] Comment on above: Performed By: #### 1 [id number], [id number] ####[facility] (DEFAULT)[address] [place] [address] 92310 UA Spec Grav <=1.005 Normal 1.001-1.035 [facility] Comment on above: Performed By: #### 1 [id number], [id number] ####[facility] (DEFAULT)[address] [place] [address] UA Urobilinogen 0.2 mg/dL Normal 0.2-1.0 [facility] Comment on above: Performed By: #### 1 [id number], [id number] ####[facility] (DEFAULT)[address] [place] [address] 10818 Breakpoint UA Normal [facility] Comment on above: Performed By: #### 1 [id number], [id number] ####[facility] (DEFAULT)[address] [place] [address] 61334 Urine Source Clean Catch Normal [facility] Comment on above: Performed By: #### 1 [id number], [id number] ####[facility] (DEFAULT)[address] [place] [address] 84260 XR Chest 2 Viewson XR Chest 2 [...] Bowen 12/21/21 9:38 pm Technologist: SRF,L Normal [facility] CARDIAC HUMAIRA ADMITon 021 CK [Catalytic activity/Vol] 117 U/L Normal 30-135 [facility] Comment on above: Performed By: #### T SH, CMADM, CMP #### [facility] [address] [place], [place] [address] Nelida Bautista CK.MB [Mass/Vol] 1.16 ng/mL Normal <=2.37 [facility] Comment on above: Performed By: #### T HAYDE CMADM, CMP #### [facility] [address] [place] [address] Nelida Lily HSTROP <4.0 Normal 4.0-35.5 [facility] Comment on above: Result Comment: CUT- OFF POINTS HAVE BEEN ESTABLISHED BASED ON THE FOURTH UNIVERSAL DEFINITIONS OF MYOCARDIAL INFARCTION. THE UPPER REFERENCE LIMIT (URL) OF TROPONIN, DEFINED THE 99TH PERCENTILE OF cTnI DISTRIBUTION IN A REFERENCE POPULATION, HAS BEEN CONFIRMED THE DECISION THRESHOLD FOR [place] DIAGNOSIS. Performed By: #### T HAYDE, CMADM, CMP #### [facility] [address] [place] [address] Nelida Lily NGA 41.0 ng/mL Normal <=61.5 [facility] Comment on above: Performed By: #### T JOÃO LOCK, CMP #### [facility] [address] [place] [address] Nelida Lily CBC AUTO DIFFon 02-23-2021 BASO # 0.1 103/ul Normal 0.0-0.1 [facility] Comment on above: Performed By: #### C BC #### [facility] [address] [place] [address] Nelida Lily Basophils/100 WBC (Bld) 1.0 % Normal 0.2-2.0 [facility] Comment on above: Performed By: #### C BC #### [facility] [address] [place] [address] Nelida Lily EO # 0.1 103/ul Normal 0.0-0.7 [facility] Comment on above: Performed By: #### C BC #### [facility] [address] [place], [place] [id number] Nelida Lily Eosinophils/100 WBC (Bld) 2.2 % Normal 0.9-7.0 [facility] Comment on above: Performed By: #### C BC #### [facility] [address] [place] [address] Nelida Lily Erythrocyte distribution width (RBC) [Ratio] 14.2 % Normal 11.0-15.0 [facility] Comment on above: Performed By: #### C BC #### [facility] [address] [place] [address] Nelida Bautista Hematocrit (Bld) [Volume fraction] 40.6 % Normal 36.0-48.0 [facility] Comment on above: Performed By: #### C BC #### [facility] [address] [place] [address] Nelida Bautista Hemoglobin (Bld) [Mass/Vol] 13.3 g/dL Normal 12.0-16.0 [facility] Comment on above: Performed By: #### C BC #### [facility] [address] [place] [address] Nelidajose Bautista IG # 0.02 10e3/ul Normal 0.00-0.03 [facility] Comment on above: Performed By: #### C BC #### [facility] [address] [place] [address] Nelidajose Bautista IG % 0.4 % Normal 0.0-0.5 [facility] Comment on above: Performed By: #### C BC #### [facility] [address] [place] [address] Nelida Bautista LYMPH # 1.7 103/ul Normal 1.2-3.8 [facility] Comment on above: Performed By: #### C BC #### [facility] [address] [place] [address] Nelida Bautista Lymphocytes/100 WBC (Bld) 34.6 % Normal 20.5-60.0 [facility] Comment on above: Performed By: #### C BC #### [facility] [address] [place] [address] Nelida Bautista MANUAL DIFF REQ NO Normal [facility] Comment on above: Performed By: #### C BC #### [facility] [address] [place] [address] Nelida Bautista MCH (RBC) [Entitic mass] 31.5 pg Normal 26.7-34.0 [facility] Comment on above: Performed By: #### C BC #### [facility] [address] [place], [place] [address] Nelidajose Kimbleen MCHC (RBC) [Mass/Vol] 32.8 g/dL Normal 29.9-35.2 [facility] Comment on above: Performed By: #### C BC #### [facility] [address] [place], [place] [address] Nelida Lily MCV (RBC) [Entitic vol] 96.2 fL Normal 81.0-99.0 [facility] Comment on above: Performed By: #### C BC #### [facility] [address] [place] [id number] Nelida Lily MONO # 0.4 103/ul Normal 0.3-0.8 [facility] Comment on above: Performed By: #### C BC #### [facility] [address] [place], [place] [id number] Nelida Lily Monocytes/100 WBC (Bld) 7.1 % Normal 1.7-12.0 [facility] Comment on above: Performed By: #### C BC #### [facility] [address] [place], [place] [id number] Nelida Lily NEUT # 2.7 103/ul Normal 1.4-6.5 [facility] Comment on above: Performed By: #### C BC #### [facility] Laboratory [address] [place], [place] [id number] Nelida Lily Neutrophils/100 WBC (Bld) 54.7 % Normal 43.0-75.0 [facility] Comment on above: Performed By: #### C BC #### [facility] Laboratory [address] [place], [place] [id number] Nelida Lily Platelet mean volume (Bld) [Entitic vol] 9.8 fL Normal 9.5-13.5 [facility] Comment on above: Performed By: #### C BC #### [facility] Laboratory [address] [place], [place] [id number] Nelida Lily PLT 320 103/ul Normal 150-450 [facility] Comment on above: Performed By: #### C BC #### [facility] Laboratory [address] [place] [address] Nelida Bautista RBC 4.22 106/ul Normal 4.20-5.40 [facility] Comment on above: Performed By: #### C BC #### [facility] Laboratory [address] [place] [address] Nelida Bautista WBC 4.9 103/ul Normal 4.0-11.0 [facility] Comment on above: Performed By: #### C BC #### [facility] Laboratory [address] [place] [address] STROKE HEAD WOon 02-24-20 [...] IMPRESSION: 1. Normal examination. Findings discussed with Mayr Beth in the emergency department via telephone, to be related to Dr. Ambrocio. Electronically authenticated by: JANESSA SKINNER Date: 2021-02-23 13:52 Normal [facility] ER URINE PROFILEon 1 Bilirubin Ql (U) Negative Normal NEGATIVE [facility] Comment on above: Performed By: #### E RUR #### [facility] Laboratory [address] [place] [address] Nelida Bautista Clarity (U) CLEAR Normal CLEAR [facility] Comment on above: Performed By: #### E RUR #### [facility] Laboratory [address] [place] [address] Nelida Bautista Color (U) LT. YELLOW Normal YELLOW [facility] Comment on above: Performed By: #### E RUR #### [facility] Laboratory [address] [place] [address] Nelidajose Bautista ERUAHD A micrscopic examination will be performed if indicated. Normal [facility] Comment on above: Performed By: #### E RUR #### [facility] Laboratory [address] [place] [address] Nelida Lily Glucose Ql (U) Negative Normal NEGATIVE [facility] Comment on above: Performed By: #### E RUR #### [facility] Laboratory [address] [place] [address] Nelida Lily Hemoglobin Ql (U) Negative Normal NEGATIVE [facility] Comment on above: Performed By: #### E RUR #### [facility] Laboratory [address] [place] [address] Nelida Lily Ketones Ql (U) Negative Normal NEGATIVE [facility] Comment on above: Performed By: #### E RUR #### [facility] Laboratory [address] [place] [address] Nelida Lily LEUKOCYTES Negative Normal NEGATIVE [facility] Comment on above: Performed By: #### E RUR #### [facility] Laboratory [address] [place] [address] Nelida Lily Nitrite Ql (U) Negative Normal NEGATIVE [facility] Comment on above: Performed By: #### E RUR #### [facility] Laboratory [address] [place] [address] Nelida Lily pH (U) 8.0 [pH] Normal 5-9 [facility] Comment on above: Performed By: #### E RUR #### [facility] Laboratory [address] [place] [address] Nelida Lily SPEC GRAVITY 1.020 Normal 1.005-<=1.025 [facility] Comment on above: Performed By: #### E RUR #### [facility] Laboratory [address] [place] [address] Nelida Lily UA PROTEIN Negative Normal NEGATIVE/ TRACE [facility] Comment on above: Performed By: #### E RUR #### [facility] Laboratory [address] [place] [address] Nelida Lily UR MICRO IND NOT INDICATED Normal [facility] Comment on above: Performed By: #### E RUR #### [facility] Laboratory [address] [place], [place] [id number] Nelida Bautista Urobilinogen Qn (U) 0.2 {Jose Carlos'U}/dL Normal 0.2 - 1. 0 [facility] Comment on above: Performed By: #### E RUR #### [facility] Laboratory [address] [place], [place] [id number] Nelida Bautista POINT OF CARE GLUCOSEon 01-27 Glucose [Mass/Vol] 95 mg/dL Normal 74-106 [facility] Comment on above: Performed By: #### P OCGLUC #### [facility] Laboratory [address] [place], [place] [id number] Nelida Bautista PREG HCG QUALon 02-23-2021 , QUAL Negative Normal NEGATIVE [facility] Comment on above: Performed By: #### P REG #### [facility] Laboratory [address] [place] [address] Nelida Bautista PROF 14(COMP METB)on 021 Albumin [Mass/Vol] 3.6 g/dL Normal 3.5-5.0 [facility] Comment on above: Performed By: #### T JOÃO LOCK, CMP #### [facility] Laboratory [address] [place] [address] Nelida Bautista Albumin/Globulin [Mass ratio] 0.9 {ratio} Normal [facility] Comment on above: Performed By: #### T JOÃO LOCK, CMP #### [facility] Laboratory [address] [place] [address] Nelida Bautista ALP [Catalytic activity/Vol] 103 U/L Normal 38-126 [facility] Comment on above: Performed By: #### T JOÃO LOCK, CMP #### [facility] Laboratory [address] [place] [address] Nelida Bautista ALT [Catalytic activity/Vol] 35 U/L Normal 9-52 [facility] Comment on above: Performed By: #### T JOÃO LOCK, CMP #### [facility] Laboratory [address] [place], [place] [id number] Nelida Lily Anion gap [Moles/Vol] 13.3 mmol/L Normal [facility] Comment on above: Performed By: #### T JOÃO LOCK, CMP #### [facility] Laboratory [address] [address] Nelida Lily AST [Catalytic activity/Vol] 28 U/L Normal 14-36 [facility] Comment on above: Performed By: #### T JOÃO LOCK, CMP #### [facility] Laboratory [address] [address] Nelida Lily Bilirubin [Mass/Vol] 0.2 mg/dL Normal 0.2-1.3 [facility] Comment on above: Performed By: #### T JOÃO LOCK, CMP #### [facility] Laboratory [address] [place] [address] Nelida Lily Calcium [Mass/Vol] 9.0 mg/dL Normal 8.4-10.2 [facility] Comment on above: Performed By: #### T JOÃO LOCK, CMP #### [facility] Laboratory [address] [place] [address] Nelida Lily Chloride [Moles/Vol] 108 mmol/L Critically high 98-107 [facility] Comment on above: Performed By: #### T JOÃO LOCK, CMP #### [facility] Laboratory [address] [place] [address] Nelida Lily CO2 [Moles/Vol] 25.8 mmol/L Normal 22.0-30.0 [facility] Comment on above: Performed By: #### T JOÃO LOCK, CMP #### [facility] Laboratory [address] [place] [address] Nelida Lily Creatinine [Mass/Vol] 1.00 mg/dL Normal 0.52-1.04 [facility] Comment on above: Performed By: #### T JOÃO LOCK, CMP #### [facility] Laboratory [address] [place] [address] Nelida Lily EGFR-AF NEW ZEALANDER >60 Normal >=60 [facility] Comment on above: Performed By: #### T JOÃO LOCK, CMP #### [facility] Laboratory [address] [id number] Nelida Lily EGFR-NON AF NEW ZEALANDER >60 Normal >=60 [facility] Comment on above: Performed By: #### T JOÃO LOCK, CMP #### [facility] Laboratory [address] [id number] Nelida Lily Globulin (S) [Mass/Vol] 4.2 g/dL Normal [facility] Comment on above: Performed By: #### T JOÃO LOCK, CMP #### [facility] Laboratory [address] [place] [address] Nelida Lily Glucose [Mass/Vol] 95 mg/dL Normal 74-106 [facility] Comment on above: Performed By: #### T JOÃO LOCK, CMP #### [facility] Laboratory [address] [place] [address] Nelida Lily Potassium [Moles/Vol] 4.1 mmol/L Normal 3.4-5.0 [facility] Comment on above: Performed By: #### T JOÃO LOCK, CMP #### [facility] Laboratory [address] [place] [address] Nelida Lily Protein [Mass/Vol] 7.8 g/dL Normal 6.1-8.2 [facility] Comment on above: Performed By: #### T JOÃO LOCK, CMP #### [facility] Laboratory [address] [place], [place] [id number] Nelida Lily Sodium [Moles/Vol] 143 mmol/L Normal 137-145 [facility] Comment on above: Performed By: #### T JOÃO LOCK, CMP #### [facility] Laboratory [address] [place] [address] Nelida Lily Urea nitrogen [Mass/Vol] 10.0 mg/dL Normal 7.0-17.0 [facility] Comment on above: Performed By: #### T JOÃO LOCK, CMP #### [facility] Laboratory [address] [place] [address] Nelida Lily Urea nitrogen/Creatinine [Mass ratio] 10.0 mg/mg Normal [facility] Comment on above: Performed By: #### T JOÃO LOCK, CMP #### [facility] Laboratory [address] [place], [place] [address] Nelida Bautista TSHon 02-23-2021 TSH 1.157 uIU/mL Normal 0.470-4.680 [facility] Comment on above: Performed By: #### T JOÃO LOCK, CMP #### [facility] Laboratory [address] [place], [place] [address] Nelida Bautista TSH RANGE SEE BELOW Normal [facility] Comment on above: Result Comment: <0.3 4 UIU/ml HYPERTHYROID 0.34-5.60 UIU/ml EUTHYROID >5.60 UIU/ml HYPOTHYROID Performed By: #### T JOÃO LOCK, CMP #### [facility] Laboratory [address] [place], [place] [address] Nelida Bautista XR CHEST 1 Von 02-23-2021 [...] JANESSA SKINNER Date: 2021-02-23 13:53 Normal [facility] Encounters Encounter Date Encounter Type Care Provider Facility Start: 08-22-2023 End: 08-22-2023 ambulatory Not Available Start: 12-22-2021 End: 12-22-2021 ambulatory [facility] Start: 02-23-2021 End: 02-23-[address] DOCTOR GOODSON Facility:[id number] Payers Date Payer Category Payer Unknown [id number] 1985 Unknown [id number] 1985 Unknown [id number] 1957 Unknown [id number] Summary Purpose Family History No Family History Records FoundNo Family History Records FoundNo Family History Records FoundNo Family History Records Found Advance Directives No Advanced Directives Records FoundNo Advanced Directives Records FoundNo Advanced Directives Records FoundNo Advanced Directives Records Found Additional Source Comments INFORMATION SOURCE (unrecogn ized section and content) DATE CREATED AUTHOR 02/28/2021 [facility] DATE CREATED AUTHOR AUTHOR'S ORGANIZ ATION 12/24/2021 [facility] DATE CREATED AUTHOR AUTHOR'S ORGANIZ ATION 01/01/2022 [facility] DATE CREATED AUTHOR AUTHOR'S ORGANIZ ATION 08/23/2023 [facility] FOR RECORDS PERTAINING TO PATIENTS WHO ARE [...] BE BASED ON THE PRIMARY CLINICAL RECORDS. [employer] [facility]. provides no warranty or guarantee of the accuracy or completeness of information in this document.
[2023-09-28 16:07] LABS: Age Gdln ACOG Testing Note (.); HPV Aptima Negative (Negative); IGP, Aptima HPV, rfx 16/18,45 Note (.)
== END 2023-09-23 20:53 | disposition home or self-care (01) ==
LOC: LAB 20:52
PROVIDERS: Visit Provider Obstetrics & Gynecology
DX: Z01.419 Encounter for gynecological examination (general) (routine) without abnormal findings (principal)
CPT/HCPCS: 87624; G0145

== ENCOUNTER 2023-10-21 13:23 | Outpatient (OUT) | payer BC, SELFPAY ==
--- NOTE | 2023-10-21 13:28 | US_ITS ---
[address] [address] Patient Name: LOCO HICKS MRN: [id number] date: 1985 Sex: F Assigned Patient Location: [facility] Current Patient Location: [facility] Accession/Order Number: [id number] Exam Date: 10/21/2023 13:29 Report Date: 10/21/2023 15:15 At the request of: MARYANN VIZCARRA Procedure: US OB anatomy EXAMINATION: US OB anatomy, US OB cervical length HISTORY: ANATOMY COMPARISON: No relevant comparison available. TECHNIQUE: Transabdominal sonographic examination was performed for obstetrical and evaluation. FINDINGS: Number: 1 Heart Rate: 138.0 bpm H.B. /min Amniotic Fluid Volume: Subjectively normal position: Cephalic presentation, longitudinal lie Placental Location: ANTERIOR Cervix Length: 4.5 cm , closed Normal anatomy: Lateral ventricles, cerebellum, posterior fossa, nose, lips, orbits, four-chamber heart, RVOT, LVOT, diaphragm, stomach, kidneys, abdominal cord insertion, bladder, umbilical arteries, three-vessel cord, spine, extremities BIOMETRY: BPD: 4.7 cm 20 weeks 2 days , 50% HC: 17.6 cm 20 weeks 0 days, 32% AC: 14.7 cm 20 weeks 0 days, 35% FL: 3.4 cm 20 weeks 4 days , 54% EFW:343.0 grams; 12 ounces, 44% FL/AC: 22.9 FL/BPD: 71.5 HC/AC: 1.2 GESTATIONAL AGE: Age by EDC: 20 weeks 2 days Age by current US: 20 weeks 2 days DEEPALI by current US: 03/07/2024 DEEPALI by EDC: 03/07/2024 US/US OB anatomy IMPRESSION: Normal anatomy scan Closed cervix measuring 4.5 cm normal *Reference: [employer] Practice Guideline for the performance of Obstetric Ultrasound Examinations, April 27, 2007. Electronically authenticated by: CADEN COX Date: 10/21/2023 15:15
--- NOTE | 2023-10-21 13:28 | US_ITS ---
[address] [address] Patient Name: LOCO HICKS MRN: [id number] date: 1985 Sex: F Assigned Patient Location: [facility] Current Patient Location: [facility] Accession/Order Number: [id number] Exam Date: 10/21/2023 13:29 Report Date: 10/21/2023 15:15 At the request of: MARYANN VIZCARRA Procedure: US OB cervical length EXAMINATION: US OB anatomy, US OB cervical length HISTORY: ANATOMY COMPARISON: No relevant comparison available. TECHNIQUE: Transabdominal sonographic examination was performed for obstetrical and evaluation. FINDINGS: Number: 1 Heart Rate: 138.0 bpm H.B. /min Amniotic Fluid Volume: Subjectively normal position: Cephalic presentation, longitudinal lie Placental Location: ANTERIOR Cervix Length: 4.5 cm , closed Normal anatomy: Lateral ventricles, cerebellum, posterior fossa, nose, lips, orbits, four-chamber heart, RVOT, LVOT, diaphragm, stomach, kidneys, abdominal cord insertion, bladder, umbilical arteries, three-vessel cord, spine, extremities BIOMETRY: BPD: 4.7 cm 20 weeks 2 days , 50% HC: 17.6 cm 20 weeks 0 days, 32% AC: 14.7 cm 20 weeks 0 days, 35% FL: 3.4 cm 20 weeks 4 days , 54% EFW:343.0 grams; 12 ounces, 44% FL/AC: 22.9 FL/BPD: 71.5 HC/AC: 1.2 GESTATIONAL AGE: Age by EDC: 20 weeks 2 days Age by current US: 20 weeks 2 days DEEPALI by current US: 03/07/2024 DEEPALI by EDC: 03/07/2024 US/US OB cervical length IMPRESSION: Normal anatomy scan Closed cervix measuring 4.5 cm normal *Reference: [employer] Practice Guideline for the performance of Obstetric Ultrasound Examinations, April 27, 2007. Electronically authenticated by: CADEN COX Date: 10/21/2023 15:15
--- OUTSIDE RECORDS SUMMARY | 2023-10-21 13:41 | XMS_ITS | CCD ---
Author Organization [facility] Care Team Providers Care Education And Development Manager Name Role Phone HAMZAH, DR OLSON Primary Care Unavailable PAY, DR OLSEN Admitting Unavailable PAY, DR OLSEN Attending Unavailable BRODY, DR JANESSA [employer] Unavailable PAY, DR [...] Coding Summaryon 12-31-2021 Coding Summary HTMLBase 64 WpxrrwckTBc8rJy+PGhl YWQ+CJ0PDGNjE57paDZh iS2JR8tRBF3QHPBNPGXX EH7HHI4oeNM9VVaxZ5Cg biAv ClthnQZuZQ61GQj4LVN9 hRtbTKvvkI5onELsS0u1 XwVjMK34pU25QMleHAMr AlM7OyQwucamkJDc X9jeMfKcpMKbNmi+PHRh YmxlIHdpZHRoPScxMDAl ZlPemKrqUP1nDh2vZVFf LWNvbGxhcHNlOiBj y0ylMJUbZUjwJZ3tqFwx R3PnaZL4LYFtx7u9Uj56 dHI+TMYxJGH0dGscAAom q984NqRdq4qrXPU8 lODdACjaMJN3X13aj8H3 BGXlZDWwDSP2uZP6eX2r hJlqmrueS6DdcJBxWtI9 HJL3rZEpcP0wvLec nadqyQ9oEfy+X93JAT5K PVADRY7WAox8S4RjPbew dHI+QR12RNBhTE68fTKt rTTan3boyYx1RuCo UQUxBKX7cMomEXzvh5Iy WYLjC03hfWPzn3N1TWDs nJmfrSKaLnZwbAY4rA5u OUjcxyyob7fndtsu Pklee9gwmu98rI61B34g LHptKBMgMXZ2YPGqKKIt fNvnrt5iiZ3sBu7+IDxj j6bkr3ylsRi7OrJl SAZuevUfkSmvONK2e5Ih Km03W5NmwAqir0MdYcz8 or71jEMph6J3bUG3JQvu NQNtfX6oVZluAyN5 KISqGgHobF14tVNuEFbe Li0yaSllzLjyDU6fIPXj iihaRXJnxZ5gQPBnsPJn aBzeCS9bRXMaqwug x093PiFuQQD7EKSkfSEy X0JzvX9vXyGuIBFtJDWy A4EutARpMRgkG724MJki VuF0GZNlctYpZ7Hl MRPgtCmzMwK2r4N7Lb2O f4VngxgsUVU1LMfpVUP0 YiI5BgHbNtU6Q3WzAgv3 ZEGjmQcbBN6rJ5Ql MDWaxjlzfdtprEJ8NAKh AFVxuG40xDRqDHtiKl0h i9N6b361KHAhAEFjxU82 Lo7lmOtbPUEdmLYK gX8lbppzd5kzwpmfQgHe SKEfZZi2ZOh4LAXiiQzr HpWgMSK8KtE7ONN8bPJy qO1ukXjafurlxG5n Oyc+A37urZ8lUMR1SWP7 sxdjFOMkyiWpTW91GK20 V8EcHuxhzJWvdNQ+PGRp reAfwZgvYU9aJlTj s9tfj6TpPCgkI3IgWXSx XKnmCjm3RXXgNME6bWV2 dW7fJHDqUYlem8M9uIL6 R2PuztPako1nh7hx MGQoPQjpC03glZDwf8V5 TXFpoUI4HINviKdpYvZe lZ09Caj+DBAlfRotw0Gx Olltt7hzc5tscGn6 IjMwJSIgdmFsaWduPSJ0 u2BbCl65T43qQJsiQSKu WOHtKSVcTSCvdBmqiv7f hF2wBc2+PGNvbCB3 mYY9fX4mALRzBsZ5XGmq V518AoZazRBkEyqmv1gm o1edrOv3CaXpOAKgyiYf pLuySTT8o3FiOq89 J54xJFvkZMNwAUPkGYQw PMKvjKavum5xlR5iOu1+ BL7gf6cqki73hP66hOA+ LHKpXOX6kHroNBsr MLNbmH0dISqvNkO9JGKv OaPphV48mBJiWPeqTj3n mWckbQwyMJ1sFELhuvdg i900RmWlt8huXASv vIKfZQfvEVM1G85ip9Q2 PPMwAPDcSPZ7bQU1xB0c bGlnbjogbGVmdDsgdmVy mSvcQZosKOfpT245 IHRvcDsnPlBhdGllbnQg IgBvKAm1O2KpRyv3AAWi yRdgRH1nnKSuNRekVf8j xVysdQxbQN3yEWEf uqoej083RdZhr1dtDFDg fSOcMPyqZBC1N15aq6E8 YTSmOEOzPIX1lKN8cM4d bGlnbjogbGVmdDsg yeYyvJbzXIdkAVazJ559 IHRvcDsnPkJpcnRoIERh yJI7JI49TM00zJGle4W7 rBB0L0WsOOAlpyqn sspeiKG8WFYwZCBdpQ12 Ia2kiRncZl7hYBSaLRI6 XZTzrHMuB7XkhG0jSoFk WYRhXUWkD1BayAPo UPjdY781NKlfVoH6ZJSu zmZrF4SdCKAnyHnsPmD4 c3M2Pd8FO8Z2YS28SU37 uFYhn8O5cCQ3J6Wy ODKqcvtmluqyaRY8LPZx VPMtzG37Re3fhFpfXl7n ZMVcNLM9PQJqvCEbD4Os gD5fOmOqJPGeZOTf P5OepXCvYMzeU892ZGwm WoO7KECuztLxN0JyDJDv sKdiQiK6a7J2Oz8HVRn9 RM24MW56qEYlk8L8 gBL3M8PaMOVuifpaugjo hJP7WRZmANDyjX61Ng8s cBpmQg7tSQDrPVF2CLOe yPHxU8RlpK6oVeIq QGOlBTMoT7HjxIAiFQkh C504IBlbWaZ8QMAynxBu Q1VlEJOfnLioPpA2o7K9 Jf7FJSIqEW91TPF2 dTA3VT61IG66S6StZevj dGFibGU+PHRhYmxlIHdp ZHRoPScxMDAlJyBzdHls LI2wPt3sZPVlSUCg yDtseGCzEkSek2laELUb IKoiIM3snBenN0YvnEK9 ELNii8q3Gf69E46eX5Lz dXA+QJXvrIH0aPB9 pN7dBeWySzY4YGacQ473 EbDdlUFuOvidw6fsh7ii dYo9QfK7FBRvzeDykCgs QFJ4m8CbEi34T77i IHdpZHRoPSIxNSUiIHZh eOcthm8jbD4hVt8+PGNv uRP1fDH6kC9uVxHnExC1 YCiuG601JxVzdMYx Cievy7utq8kqiDf8WdJb RKFhnqXzhKyaWNN9q1Ys Ky43Z0QfdAlvq7TuGrw4 ey60yORim1G4vHI4 U2XiKCCsflxdzPYseZnq TK5cTXHoclftWBEbtA9t CGZgI4c9DuGgGnJ6FMnd B5WdhcQ9WVFufWEx MLapYSY3G78hf4O7WBLq KFQqABP7oKG0vH9ajBhi bjogbGVmdDsgdmVydGlj OLabMBkxQ541IBUa tEnjJFEghD4gFLMthRXw yAasQJ8fXTOwsokkLjkJ GALRXKMVMYSRBiKMXT05 PI04sPMnh8A6iAJ0 G5UiAALfwnlsvuetkOI3 CDBzMJKkqG81vVDuQQqu Qu2zs3Y8w704TWOcBKMb iP41Ol0ceHhjKZHa gTEPrX2cozdku6tigtkt ZcStRRQqWLv5QKc3EXKg vQyrKeSnUCB4NeM5MER7 hKOnpF0afSugmucv mH8cJbn+MDEvMDgvMTk4 ODwvdGQ+QYLhSLI2mEvp AXjkIPPniV6bBKOcQ5e1 ZwEjOsY7EAqlV0Mp TCUkwwijPl26kI1lZpYl JqW2UMkyP9BjluW3YUOk gWKjLHjaXPR0F13ug6N6 WKIhGCRzHJF0vDW7 bA3xfGhgxhfddACcgZjr mbPqyCzsHKqdDCpfE581 VIEzdOkzOtA5KXgvRUXx PP52HX22dZGrr9F1 xGJ2Q1TyXYOluutkdlji yLG2ERWsSIZkjF14dPPw YNcdWr4mf3U5d105HLGt TRMjhG64Ys8ssOve GZGhiTNZbF7hxhimk1by bdbtTkFsZOYrISv1MQd1 EOSioSycIqGaISR5SlF8 ATK4sKFkbH6obCtw ivnjfX2bLpd+RkVNQUxF HJ98TD46pBIhu8W3aWG4 P8JySJVcksjexjmcbVU8 AYQgVUSyiK72eXPu VQvcNn5oa4A2i464CNKi KIZfiV99Lt1olRiyRUDq iHRPaQ6indcie5mwihtk XxNoBMHaCBe2IGi6 DVWcdBzoNcVhJYH5DgW7 ANA5fHLbzD9flOgkolvi jW8vXsx+A2L9T0YnOeoa dHI+KX57KEVuDA37 pCTnzTNwa2qlmAq8XzVt IZWiQCB5cFrwLGrak4Vj ZWGyO38naAHnx7B3RVTc bGxhcHNlOyBlbXB0 wJ4wMKyxcfkha2kspuwz Euokt5egvl97xC35N94x IHdpZHRoPSIzMCUiIHZh sDqoew8maB3iAt4+ LVDidAT2zUP7nP6qVjEq RyQ6WTseX476FrQvgXGw Grgdr0rie2uvgEv1RjUq JSIgdmFsaWduPSJ0 z7BuEw77H09cIVtuDXMz YZWxZWZjAPAyzPgnhe3a zP5gSs0+JJ7gl4vrup51 lC99hLM+PHRkIHN0 bHnbNMbgRDMguB6mHKyz JhL0IFWiOdKahK73uEBf FQcfTh7pkYpjiGejXI7o VLMfkwemr917NtFv e5miDOHnaKJfZCpaJNS9 S91xg9Z8UVFmSWXjQZE0 hHD6xJ5gdKgwudzxrZQm dDsgdmVydGljYWwt COcwL046RKXdhHrfRiJu nSFzH9jhawKVMX0jCmla dGQ+KHIaTPJ3aRixZAew VNDqyK0kVRBjO5f7 PjIaXlA7JVjxW3EquyI6 WCLlvUItJNJipFNFmI7u jkbsb0unttgnTtAoSZUv AGk8CUo2YUPkeYaz KsHvGMO5HqY7RYM8eGEg rK0kdBxknxtduI7fLlp+ RklOOjwvdGQ+PHRkIHN0 aHjmKXvpMOUyvB1b CGHxK5l9GyBmIkK5MMbf K9JqjiS4YBDpkHTaVVQy oTTXeR2ecoydt6okfsvm EzLyRJHvIEc2RIf9 HBJbsGegLuSgNKU6NdD9 VEL6oBRevJ6trOiwzllv sZ1iPuy+TVJOOjwvdGQ+ EFAuCEU6pTwcQMwr RCFvgN4dQMYmP6t4FoCp IgE2QDqdC7YcohQ5ZMMw bKMuEROpmNYWhB9kotiy l2uwgqixKiAiNXPl NXh8NWa1JHTugAytBoMh KQG2HbD4DFA9dBVpiC5g fCmbyjvjvT5rMdf+UGF5 NMA5LV28JY82Y4Td PjwvdGFibGU+PHRhYmxl IHdpZHRoPScxMDAlJyBz lRepYT0gDy8eACAgJEVh pLfmcFUlOfTpb7vz YXB (more content not included)... [facility] Coding Summary HTMLBase 64 VgpppcdiSCa4sAv+PGhl YWQ+YM0VTGBmS84zgUAn uD0FI9tHIF6BPGXLHQEZ BP3RLG1taQW9XRzeS9Ah biAv EyuwnKPdKK43GJj8OQF0 nCcpMApmsC7coBYtZ7u0 WfJiMP06vY19XOaxWLZh VoS3NcNuwlkldFAo S9yfVqDefNRtDxx+PHRh YmxlIHdpZHRoPScxMDAl FtHmaCzsLA9aPa7oQVIp LWNvbGxhcHNlOiBj h4hnYATlIQefIW0vsQor E3VwjWH5IGCvz4o5Af42 dHI+JEIgCOL6yPfnBAfk y039DaCmw8uqCSA2 zYDvUHukTQO9C67xb1X7 QMVsCHMvEKW9eQM8oJ8c xYbbjroqA5HisJFzQwC3 QJQ6sIMpwX5vbBwy spnnbK0bTin+L03IIW4Y ZTJDID1BVrm1D5SmLxdl dHI+SG90GMUcPE81rJVl uNCts7fqtEh5UlCt DGCyYPU1hAebIItkq3Zq CYQvL45duSPrs9O0MUZt pZgqgINkCsFpgXP9sM6w GMimjxefh0vsdeue Vuwxm0ywoj51bZ21V68o ODohQJRbKNQ3FTViJLPd sJypni2myL0pRq4+IDxj d4zsx3gfdQa3WpYh VFWpsdGcaPnlYMR9j2Af Cc59O0JugXhnv8WaBwj9 gv28wNSxd8D6xXU2NFcv DMIxsZ0pHMeuAxB4 FUUwZwMcoO00vRAiUOdf Vw6oqFkvuGnqWZ6tSNFx dwcoNGOrqO8yGZZyuXFb jNtsRU2pIXMfjmjq u168NjZfMNY1PKExcXYi F3FhjF6iNdYjTSMtREBr G9BmqUFxRTuvB702ESlr DyG8QGPusiAvX5Ai OVKncZacJwT3i7J8Fc7Z x2JsfuanOOC9SDmuDPI7 IsC2IvSzLuV8U8WgCdd8 FATxbEolPH5hE3Th CYRsldvqtnqcmMU3MMRx YPPnaM95iUBtACccEu7t k7M6y748GOVjQCDcaY19 Ls9arMilUFHdrAYM vC8yocpnu7eottueVqZq LYLuDPs2CDh1BIOgkPfr YjEpJBH7PnH6NNF1aRLo jE0gxOaltqvotX0s Oyc+T07ghZ1aMHK0OVH3 hratHPEmbwNjYT90AG97 T5WyXrkolXZwwEY+PGRp czIwmBhuMO8oPxFf e9mhy2QaMWjtC4ImICGf AJeeKwf4WECiZGS8qRM5 gW1qURAkBAxpc1K3rQB1 C1FkxrSetu9zq9jj GLUgRSadD28mdSBjz3C1 HPVqpOW8ZRFneWjqFcPs iL33Mlw+PUJtqQcew3Xe Usvyy1tzu0dxcEi8 IjMwJSIgdmFsaWduPSJ0 h0KkCq27U22fFBsdOTJc OMYxGTLiXOAkqXcyvw4g pT0jSq5+PGNvbCB3 kXV7wN3dXITnEoO5NEyw G276DrKmhXUkGqbcq7gi v5trcPv6SwPoCEJujqCz iRyaXRO5t0RkLu25 N10kBSqsXZXjWRTrFUDf VQNhkXphak9ciR4oVy8+ GA7ix4dmir69eR88rQC+ AXZmRXQ5hLcfQUyy UTMhqA4uLFwxYcP0QADh CkVewD25uIBxYDsbLn8n bQtlfExgAM3vLOZbqtep j179KwUyn6sgNAAa sRNsQJslCPI2X74df1N7 HLXvZYPaLJJ9yQH7bO0u bGlnbjogbGVmdDsgdmVy qGuhQLylYBlaE755 IHRvcDsnPlBhdGllbnQg BaUdCLp1P4ZsZvl5IFVv iLknND2hjBReRMvrUo7j oKrakPoxWJ9rHEVk yitmv768UzLyz9clWZHd gFVgUNdhYKZ0H56cu3B8 OXHiZQQlSDH4zSL7mU6k bGlnbjogbGVmdDsg guYfyTpxGZvlRGyvW632 IHRvcDsnPkJpcnRoIERh bXR4UP79HH67gQYht3N8 aEG7C6KxVUPngbqm mnhdrWT7AXEiQLHslU67 Ng8emOmkSs8vKTEuWTN7 AVJckPMuG9HbiP4cRfXt OBVzKOAnR1EttMBx UUnzK151HDumZrU0HFKf qgZoD1SaCLIxbIzxPkR6 h7L8Pc2HB0U0BK08MX83 gLBsg6X8bBY0B7Rf MJCrlvegfezkdHT1KENq XJTjfM22Xd5blGcjCf6x FTKbHMP6TFVaxULuJ4Vw sI0oLeUdNIJzBVHi H2LmzASiEWeaL491EUxk TiH2ZEKrasAyB3HwKNRr iPjdTtK6t2W2Xk3YYTu0 VX99VA62zJAlo0P8 wVA2F1KjSLZhcwddoldc vAZ9FEWlGHIfpM85No0w pAxfYm8lFHOnMYF1AWFl bXQbF1DbmD9rSdHi AMMhUQSfN8NovQOgOYbp M166STdfFcJ9AGGzqoMr Q9KrAWOdpQhaGtR7y1G3 Zo1JVFAsQB21JKX8 jCQ3YA84YT99Z6JeVxzg dGFibGU+PHRhYmxlIHdp ZHRoPScxMDAlJyBzdHls SN3yMy4fSIUuMPOn cQbgaWCnKfLom1vhIQTh DRhtAF8exKeoV8WjtDL1 QXYtc3d9Tz48O09vG4Kd dXA+YZNmeAF4vQK2 dP0mKiYnOrB9IYfvM667 IaZbpCVaIgxzi0jyq5xt tYv1CaK7OFJbpxHpwPas PWS4l4WkFc26R17o IHdpZHRoPSIxNSUiIHZh aWwoah8csX6fIk0+PGNv pRM7gAD4wA9sWzGpIlB3 BCtoX413PnTmnWWk Xtsrg9brc3eouHg8GcXh OILcxcVbbXriYOY1y6Bo Su04O7TffUdbd0JvJnk2 lz32mMRjr4N8bCQ0 J2WdUTKmfmuilBUmxHcn KG9zWUCttizzQPAokK8e LKYlT2e1SpElWpF5FJer K5CxbdE1VQJrrGAg GZkxEQP9K71qa2L4RUCj POEcAUA7sEX6vS4maNol bjogbGVmdDsgdmVydGlj LTycFGoqY548ECSs uFjbMUChtR0nTOPonACc hIdkBJ9hIHOijzyvJeyW NJHIZXVVCWPVVsJIUK96 WM03nEGco6M0dUJ5 D8OdHUNxgiegtgfuvMV9 TXCnDHDthL65kBMvUIkh Ou3na6V4v257FASrAOFq jJ56Tm5shGrjGHEu rSHWtK6kdqpgy1bkuoxe ImZrGEGxLTn3KEx6IKWa ePmoPuYnGZP7IlP5GDE0 cWDeuC7ztLkjdoeg wC2oUcd+MDEvMDgvMTk4 ODwvdGQ+MSPtAOI2qUkk ARgwGWCbwO0wHZLbZ4q1 CpCuCcB4GXkjG9Hy NPUbvnbcHk25hI5tKjPf EiP4FGmhZ5BwpxS6SVOp pJNeQJimJCV5P69di2W5 LBHjYGHgUKO6zZB1 vT7ahViipfjoaYKxsFkw kuMlqGetFSwuELnhW686 VOLgbJdaAlS0NSvcPIIz LW68MV74sKWgx9E7 iJC7T2GwYQSuqvuvjqwz eKT4FJMvGRJtzV13yCCe NMigJw5oe1S0z775LFFz XZHntX33Jc0amSkm YTJumQVSzP2pdcloz1py cjczCwJiEKVdDCl0HZi0 LLSteDycNzDyATQ4JbQ5 CXK6fLSeiS0jlKwk leecuG8yDom+RkVNQUxF HD88YW42gADmz5W6hWT9 D8GlEKApoidiemydnON4 NAWwJRGvhO67bFPl ZPlqEx7zf9J6n782LWEk BQJnlN23Td5orJccRAYg hTEEdT4leivio8bfxtpg FkLxQJWbNJg9EEi8 XHRrdBbkQlRyOPU1NkB7 RUG3fRAyqU6ldHvwrjwx iI9oPmc+UW9ayhyyoxC9 XC70PN97O9QdChyf dGFibGU+PHRhYmxlIHdp ZHRoPScxMDAlJyBzdHls QO6cGh5iMCReDOZqcMrj tJCeJsVoj0shAMXm AHemNS0ipLdsT2GdhQQ2 CIEez9l7Nw75M95rD1Su dXA+RMIorUX2yFC9qD6v AtXvBdL3WZpzP716 YgYnhCBbIjosc7dws7oi zZb8EjEqDHXouwLyeSnx VYA1x3LjBh66X63eNRlw ZHRoPSIyMCUiIHZh yMfmwa5jeX1hLw6+PGNv yMN3qAN9aE5mQlMaCyD4 UVpwK317GuOdhZXgNlnf V08eP8XpnMD+PHRy Zvj6VHRrtVsrSB2fsRDy HEtkLl4bBAZ3NlAzCvHf UKqiG6FuMMGnmgaywrxu sAB6QCQrMXKsvX13 Ij0egWpvBy6eOEVgQMF8 BOThqHQjJ1LmnR6nEwXe RFVmKMKbC2KtsAKvZMtn W234MLzaBtM3RLEf frRkU3GaUVXmzCnvWjG4 m0X2Po6HtVvbnVPmEX4o NuLfNKh8L0UjCdb5NCBo gBnxFU3xxKGqSZzu Qk7qtCljkCerUP3eRYQf gjjdg703QxGjg7mqCCOj lCYiSWecBKE5H57io7A3 UVVpXYJtDSO6tFN2 iD6cbQkwezugaVHhyAsf pzBwfMgfEDdoPQnkE586 BXXcyJycMvSLVmq4X4Zt Qqc0TBIjaVswYS6k tBRsZSfjFh2avQrarYyn AX0oVNBilckzr310OfZi f1waBFYgmYOhCJsaZHI7 Y65gw1X4TIFqUHHq UPX8dWD1hY3cvUxudcvf bGVmdDsgdmVydGljYWwt YJbgV784XNBgyZkvBw9Y Veg2G9ZhInw0ETZo eRskJL8fdCDgMEmkXd2n fYudrFvvFA9pPQMylnyf h169OuJbn4crAQHolWNs FLwhKHX5Q94ga1A2 LWPyXYYlLSK3uZF0uS6k bGlnbjogbGVmdDsgdmVy mWyrMYxsTSchA009SFMa cDsnPlBheWVyOjwv dGQ+MH03br96W4ZoPpyy Wug9FQJlPHE5mEL6qE7q TRSjMOwhv1R8dNP6O7Sl xgLoki9eb9iwXDSk ZTo (more content not included)... [facility] Ambulance Noteon 12-26-2021 Ambulance Note [id number] [id number] [facility] ED Clinical Summaryon 2021 ED Clinical Summary [facility] - Emergency Department [address] [place], [place] [id number] ED Clinical Summary PERSON INFORMATION Name: LOCO HICKS Age: 36 Years Sex: FEMALE : 1985 MRN: Acct#: Visit Reason: Dizziness; FACIAL NUMBNESS, DIZZINESS Arrival: 12/21/2021 18:23:41 Discharge: 12/22/2021 00:02:00 LOS: 000 05:39 Check In: 12/21/2021 18:23:41 Checkout:12/22/2021 00:02:00 Address: [address] [place] [id number] PCP: Provider, None PROVIDER INFORMATION Provider Role Assigned Unassigned Alvin Bryan ED Provider 12/21/2021 18:26:52 12/21/2021 18:30:20 Sanjuana Ramirez [employer]ITION[employer] Nurse 12/21/2021 18:29:17 12/21/2021 23:14:12 MARIAJOSE EDEN ED PA 12/21/2021 18:30:25 Kerline Cartagena [employer] NUTRITIONIST Nurse 12/21/2021 21:46:32 Kerline Merrill RN ED [...] - pharynx pink and moist. NECK: -Supple ([id number]): non-tender. CARD: -Rate and rhythm: Regular -Edema: No -Calf pain: No RESP: -Respiratory effort and chest excursion with respirations: Normal -Breath sounds equal bilaterally: Clear -Wheezes: No -Rales: No BACK: -Signs of pain with movement: No ABD: -Distended: No (more content not included)... Normal [facility] ED Patient Education Noteon 12-22-2021 ED Patient Education Note Education Materials [facility] ED Patient Summaryon 022 ED Patient Summary [facility] - Emergency Department [address] [place], [place] [id number] PATIENT DISCHARGE INSTRUCTIONS Patient Information Name: LOCO HICKS Age: 36 Years Date of : 1985 Reason For Visit: Dizziness; FACIAL NUMBNESS, DIZZINESS Arrival Time: 12/21/2021 18:23:41 Primary Care Physician: Provider, None Attending Physician: Alvin Bryan Comment: Visit Diagnosis: Diagnoses This Visit Dizziness ([id number]) Paresthesias (R20.2) Visual disturbance (H53.9) Prescription Information: If you have been given a prescription for narcotics, seek immediate medical attention if you have any difficulty breathing or any sudden status changes such as confusion and sleepiness. If you or anyone you know is experiencing suicidal thoughts, mental health, alcohol and/or drug addiction problems; contact the [facility] Replaced By [facility] 17/02 Crisis Hotline -Text 4HOPE to [phone]. If you received any narcotics, sedation, or [...] and treatment you received today in the [facility] Department were for an urgent problem and are not intended as complete care. It is important for you to follow up with a doctor, nurse practitioner, or physician?s mental health assistant for ongoing care. If your symptoms [...] so we can reach you if necessary. [facility] Emergency Department has provided you with a complete list of medications post discharge. Please inform your skid worker/provider of your visit and for further instruction [...] for Disease Control and Prevention March 2014 Normal [facility] MRI BRAIN W WO CONTRASTon MRI [...] Ean Cedillo MD 12/22/21 Final result Normal [facility] MRI CERVICAL SPINE W WO CONT Ge [...] Ean Cedillo MD 12/22/21 Final result Normal [facility] UOCX-KfE-9ys 12-22-2021 SARS-CoV-2 (COVID-19) RNA SHELBI+probe Ql (Unsp spec) Not detected Normal DELPHINEDEOneyda [facility] Comment on above: Result Comment: Rapid NAAT: [...] management decisions. Fact sheet for Healthcare Providers: https://www.fda.gov/media/512036/download Fact sheet for Patients: https://www.fda.gov/media/944889/download Methodology: Isothermal Nucleic Acid Amplification Performed By: #### C OVRB #### [place] [address] [place]: Campbell Simmons MD SARS-CoV-2 (COVID-19) PCRon 12-22-2021 Employed in healthcare? No Invalid Interpretation Code [facility] Comment on above: Performed By: #### 6 [id number] ####[facility] (DEFAULT)[address] [place] [address] Group care resident? No Invalid Interpretation Code [facility] Comment on above: Performed By: #### 6 [id number] ####[facility] (DEFAULT)[address] [place] [address] In ICU? No Invalid Interpretation Code [facility] Comment on above: Performed By: #### 6 [id number] ####[facility] (DEFAULT)[address] [place] [address] status? Not Invalid Interpretation Code [facility] Comment on above: Performed By: #### 6 [id number] ####[facility] (DEFAULT)[address] [place] [address] SARS-CoV-2 (COVID-19) RNA SHELBI+probe Ql (Unsp spec) Not detected Normal Not Detected [facility] Comment on above: Result Comment: Perf ormed by PCR methodology. Performed By: #### 6 [id number] ####[facility] (DEFAULT)[address] [place] [address] SARS-CoV-2 (COVID-19) RNA SHELBI+probe Ql (Unsp spec) No Invalid Interpretation Code [facility] Comment on above: Performed By: #### 6 [id number] ####[facility] (DEFAULT)[address] [place] [address] Symptomatic as defined by CDC? No Invalid Interpretation Code [facility] Comment on above: Performed By: #### 6 [id number] ####[facility] (DEFAULT)[address] [place] [address] Transfer Noteon 12-22-2021 Transfer Note medication list sent with patient, Complete ED chart sent with patient. CD and med list sent w. patient to Hospital [Electronically Signed on: 12/22/2021 00:05 EDT] Nadya Garcia [Verified on: 12/22/2021 00:05 EDT] Nadya Garcia Normal [facility] Transfer Note [id number] #1.00OTGTIFF [facility] Transfer Note [id number]. [id number] #1.00OTGTIFF [facility] Transfer Note transport called, [facility] called for transport to [facility]. Willie stated will call when back in area from [facility]. [Electronically Signed on: 12/21/2021 22:14 EDT] Nadya Garcia [Verified on: 12/21/2021 22:14 EDT] Nadya Garcia Normal [facility] .Auto Diff 1on 12-21-2021 Auto [place] % 7 % Normal 1-12 [facility] Comment on above: Performed By: #### 7 416186, [id number], 6155185, 27272450, 7014496, 3242955, 1264016428, 5672173, [id number] ####[facility] (DEFAULT)[address] [place] [address] Baso Abs# 0.0 x10 Normal 0.0-0.2 [facility] Comment on above: Performed By: #### 7 684463, [id number], 7410104, 21008459, 0897250, 5529144, 6252208715, 2669943, [id number] ####[facility] (DEFAULT)[address] [place] [address] Basophils/100 WBC (Bld) 0.4 % Normal 0.2-2.0 [facility] Comment on above: Performed By: #### 7 535521, [id number], 8357785, 70076088, 0607100, 4623095, 8392255953, 0879542, 2530654008 ####[facility] (DEFAULT)[address] [place] [address] Eos Abs# 0.1 x10 Normal 0.0-0.4 [facility] Comment on above: Performed By: #### 7 389040, 7388234017, 5017382, 60253753, 2725546, 3578114, 4303514425, 9550070, 0238068465 ####[facility] (DEFAULT)[address] [place] [address] 46867 Eosinophils/100 WBC (Bld) 0.7 % Low 0.9-4.0 [facility] Comment on above: Performed By: #### 7 170311, 0378328359, 9053223, 24372407, 1552812, 3608082, 6681792366, 8262019, 9521565495 ####[facility] (DEFAULT)[address] [place] [address] 83730 Lymph Abs# 3.2 x10 High 1.3-2.9 [facility] Comment on above: Performed By: #### 7 151711, 4528644549, 8755401, 13196600, 8052237, 8389181, 3629916644, 6725025, 3299722987 ####[facility] (DEFAULT)[address] [place] [address] 37720 Lymphocytes/100 WBC (Bld) 40 % Normal 14-48 [facility] Comment on above: Performed By: #### 7 896224, 6216314409, 8064391, 09793112, 0222845, 8569264, 3985736402, 7210675, 8966354701 ####[facility] (DEFAULT)[address] [place] [address] 27[address] [place] Abs# 0.6 x10 Normal 0.0-0.8 [facility] Comment on above: Performed By: #### 7 117282, 3038636527, 3485907, 31168965, 4442643, 5790233, 5892314898, 4138324, 1293744952 ####[facility] (DEFAULT)[address] [place] [address] 01175 Neut Abs# 4.3 x10 Normal 1.5-9.2 [facility] Comment on above: Performed By: #### 7 607458, 0671704347, 5287816, 42463453, 8548339, 3464005, 1780824931, 0211576, 6303614906 ####[facility] (DEFAULT)[address] [place] [address] 06898 Neutrophils/100 WBC (Bld) 53 % Normal 44-88 [facility] Comment on above: Performed By: #### 7 095842, 5525316663, 9174356, 84064016, 6360081, 2939158, 5677793020, 6683563, 2260701148 ####[facility] (DEFAULT)[address] [place] [address] 11649 CBC w/ Auto Diffon 2 Erythrocyte distribution width (RBC) [Ratio] 14.3 % Normal 11.5-15.0 [facility] Comment on above: Performed By: #### 7 952003, 2230490452, 7704736, 15594531, 0139898, 7903851, 6232884960, 9671614, 7623542245 ####[facility] (DEFAULT)[address] [place] [address] Hematocrit (Bld) [Volume fraction] 42.3 % High 33.7-40.4 [facility] Comment on above: Performed By: #### 7 615722, 6413426707, 5173945, 49715415, 3921457, 6139857, 1342038952, 8704669, 7759038729 ####[facility] (DEFAULT)[address] [place] [address] 74799 Hemoglobin (Bld) [Mass/Vol] 13.7 g/dL Normal 11.3-15.9 [facility] Comment on above: Performed By: #### 7 272583, 6512481827, 9939383, 47206430, 0523913, 0458493, 2812809263, 3511939, 7191527008 ####[facility] (DEFAULT)[address] [place] [address] 16436 Instr WBC 8.2 x10 Invalid Interpretation Code [facility] Comment on above: Performed By: #### 7 138236, 6544041124, 1051168, 78921807, 6760609, 0638032, 9816852056, 8284105, 1741850006 ####[facility] (DEFAULT)[address] [place] [address] 68790 Man Diff? Auto Normal [facility] Comment on above: Performed By: #### 7 184916, 7272805526, 0160516, 80573557, 5017440, 9727197, 2023813737, 7874341, 4360049782 ####[facility] (DEFAULT)[address] [place] [address] MCH (RBC) [Entitic mass] 31 pg Normal 24-34 [facility] Comment on above: Performed By: #### 7 727885, 3642100343, 1757929, 14254416, 7044954, 1329018, 2734878101, 1466802, 3092517743 ####[facility] (DEFAULT)[address] [place] [address] MCHC (RBC) [Mass/Vol] 32 g/dL Normal 26-37 [facility] Comment on above: Performed By: #### 7 079700, 6010881438, 2151919, 31966078, 3816736, 2022602, 5920459181, 4510383, 3819429069 ####[facility] (DEFAULT)[address] [place] [address] 62027 MCV (RBC) [Entitic vol] 96 fL Normal 81-100 [facility] Comment on above: Performed By: #### 7 553623, 5299145917, 8357103, 05520790, 3466292, 9456961, 5323970700, 6414478, 3301604931 ####[facility] (DEFAULT)[address] [place] [address] 35112 Platelet 363 x10 Normal 138-427 [facility] Comment on above: Performed By: #### 7 859677, 5373178575, 3659162, 18665121, 7659821, 3109297, 5204850671, 7519402, 4934451041 ####[facility] (DEFAULT)[address] [place] [address] 29139 Platelet mean volume (Bld) [Entitic vol] 10.2 fL Normal 6.3-10.2 [facility] Comment on above: Performed By: #### 7 884123, 2648662772, 1008654, 60379830, 3591314, 9064967, 5364165831, 1453638, 7792918177 ####[facility] (DEFAULT)[address] [place] [address] 84438 RBC 4.42 x10 Normal 3.70-5.30 [facility] Comment on above: Performed By: #### 7 682197, 8638269420, 9900494, 38446586, 9122878, 8193473, 6280840449, 0199767, 1606231362 ####[facility] (DEFAULT)[address] [place] [address] 64294 WBC 8.2 x10 Normal 3.5-10.5 [facility] Comment on above: Performed By: #### 7 182047, 4924313909, 6388223, 80834905, 9325614, 0573270, 7478223825, 5199856, 7924771314 ####[facility] (DEFAULT)[address] [place] [address] Standardon 12-21-2021 eGFR Non AA 57 mL/min/1.73m2 Invalid Interpretation Code [facility] Comment on above: Performed By: #### 7 839213, 3808625504, 4174240, 81030706, 0128063, 9104831, 6194280281, 8351501, 1492026500 ####[facility] (DEFAULT)[address] [place] [address] 17847 eGFR AA >60 Invalid Interpretation Code [facility] Comment on above: Result Comment: [employer]rentice nathalia Kidney disease could be indicated at eGFRs of less than 60 ml/min/1.73m2. Kidney Failure is indicated at less than 15 ml/min/1.73m2 Performed By: #### 7 454835, 0387457675, 3826085, 27069439, 5496955, 0101512, 2677756854, 5494762, 9515645099 ####[facility] (DEFAULT)[address] [place] [address] Albumin [Mass/Vol] 4.7 g/dL Normal 3.5-5.0 [place] [facility] Comment on above: Performed By: #### 7 861413, [id number], 0342744, 38036535, 2148604, 4037218, 6029357949, 2950175, 4033757618 ####[facility] (DEFAULT)[address] [place] [address] 34762 Albumin/Globulin [Mass ratio] 1.1 {ratio} Low 1.4-2.6 [facility] Comment on above: Performed By: #### 7 672557, [id number], 8452116, 05609519, 3609070, 3877854, 8339082214, 0815409, 6282591531 ####[facility] (DEFAULT)[address] [place] [address] 92093 Alk Phos 99 IU/L High 32-91 [facility] Comment on above: Performed By: #### 7 406577, [id number], 2588592, 35634131, 0155664, 1920116, 7417082633, 0263742, 3903320749 ####[facility] (DEFAULT)[address] [place] [address] 86481 ALT [Catalytic activity/Vol] 32.0 U/L Normal 14.0-54.0 [facility] Comment on above: Performed By: #### 7 170713, [id number], 4463677, 28262720, 5123795, 7390613, 1483771820, 5494757, 0471531951 ####[facility] (DEFAULT)[address] [place] [address] 68225 Anion gap [Moles/Vol] 23.0 mmol/L High 5.0-19.0 [facility] Comment on above: Performed By: #### 7 099449, [id number], 2026584, 46897208, 6654628, 2077863, 9963239628, 0140917, 8761796494 ####[facility] (DEFAULT)[address] [place] [address] 54005 AST [Catalytic activity/Vol] 41 U/L Normal 15-41 [facility] Comment on above: Performed By: #### 7 712506, 1098561659, 8433806, 97543041, 7868486, 0058866, 8771542837, 2717761, 0276380418 ####[facility] (DEFAULT)[address] [place] [address] 64930 Bili Total 0.4 mg/dL Normal 0.3-1.2 [facility] Comment on above: Performed By: #### 7 938931, 0610264472, 9125995, 10192369, 7516653, 1633781, 7782284245, 8263385, 7408924296 ####[facility] (DEFAULT)[address] [place] [address] 01581 Calcium [Mass/Vol] 10.2 mg/dL Normal 8.9-10.3 [facility] Comment on above: Performed By: #### 7 866942, [id number], 4237064, 57467068, 3403103, 2567702, 1214493660, 8425655, 8697610750 ####[facility] (DEFAULT)[address] [place] [address] 34497 Chloride [Moles/Vol] 96 mmol/L Low 101-111 [facility] Comment on above: Performed By: #### 7 713871, 5872968246, 7145139, 11558800, 5040576, 1827564, 4144536908, 8076232, 1680209564 ####[facility] (DEFAULT)[address] [place] [address] 19838 CO2 [Moles/Vol] 24 mmol/L Normal 21-32 [facility] Comment on above: Performed By: #### 7 616481, 7716601006, 3786839, 44778711, 4017234, 9015689, 5462026030, 9265402, 6576230352 ####[facility] (DEFAULT)[address] [place] [address] 74092 Creatinine [Mass/Vol] 1.10 mg/dL Normal 0.60-1.30 [facility] Comment on above: Performed By: #### 7 697527, 2472917204, 6680863, 69875634, 5585623, 0850643, 8241689828, 5497531, 9278105550 ####[facility] (DEFAULT)[address] [place] [address] 12569 Globulin (S) [Mass/Vol] 4.2 g/dL Normal 1.5-4.3 [facility] Comment on above: Performed By: #### 7 581314, [id number], 0508064, 08423678, 2111950, 5383886, 7292461386, 3353036, 1801364040 ####[facility] (DEFAULT)[address] [place] [address] 06992 Glucose [Mass/Vol] 97.0 mg/dL Normal 74.0-118.0 [facility] Comment on above: Performed By: #### 7 345897, 5664718216, 7342103, 48641460, 7882740, 7400367, 3670840044, 2087761, 6101360928 ####[facility] (DEFAULT)[address] [place] [address] 86734 Osmolality 278 mOsm/L Invalid Interpretation Code [facility] Comment on above: Performed By: #### 7 442947, 4934237310, 1226793, 00045820, 8557181, 0523293, 9405897562, 7454956, 6926145193 ####[facility] (DEFAULT)[address] [place] [address] 03851 Potassium [Moles/Vol] 3.5 mmol/L Low 3.6-5.1 [facility] Comment on above: Performed By: #### 7 220845, 5951785784, 7082923, 97354570, 5268118, 3302240, 0898861511, 2769342, 9329915157 ####[facility] (DEFAULT)[address] [place] [address] 46700 Protein [Mass/Vol] 8.9 g/dL High 6.5-8.1 [facility] Comment on above: Performed By: #### 7 369447, 1706651152, 6469055, 97985803, 0825049, 3389349, 0768541291, 9362604, 1563619355 ####[facility] (DEFAULT)[address] [place] [address] 60520 Sodium [Moles/Vol] 139.0 mmol/L Normal 136.0-144.0 [facility] Comment on above: Performed By: #### 7 625578, 4720064327, 7574253, 11187321, 1504052, 2234429, 7931559474, 6503862, 9908292526 ####[facility] (DEFAULT)[address] [place] [address] 24463 Urea nitrogen [Mass/Vol] 15 mg/dL Normal 8-26 [facility] Comment on above: Performed By: #### 7 909785, 9087694663, 4629973, 63038489, 1897333, 5715895, 7210804063, 7446881, 7376425974 ####[facility] (DEFAULT)[address] [place] [address] 33610 Urea nitrogen/Creatinine [Mass ratio] 14.0 mg/mg Normal 4.6-16.2 [facility] Comment on above: Performed By: #### 7 635134, 9356756594, 1663959, 28686020, 8811289, 2125418, 7268941187, 7157008, 8219738307 ####[facility] (DEFAULT)[address] [place] [address] Head or Brain w/o Kirk cortes [...] Ha 12/21/21 9:19 pm Technologist: Erwin CHAUDHARI [facility] D-Dimeron 12-21-2021 D-Dimer 0.49 mg/L FEU Normal 0.19-0.50 [facility] Comment on above: Result Comment: The [...] Liver cirrhosis ? Performed By: #### 7 835572, 0216446988, 4848247, 91967693, 9951764, 2211511, 3679641061, 4206492, 3767620988 ####[facility] (DEFAULT)[address] [place] [address] ED Note - Otheron 12-21-2021 ED Note - Other Neurology called back from [facility], on phone with Mariajose LLANES [Electronically Signed on: 12/21/2021 21:29 EDT] Nadya Garcia [Verified on: 12/21/2021 21:29 EDT] Nadya Garcia [facility] ED Note - Other paging Neurology through [facility] for consult for Mariajose LLANES [Electronically Signed on: 12/21/2021 21:12 EDT] Nadya Garcia [Verified on: 12/21/2021 21:12 EDT] Nadya Garcia [facility] ED Note - Physicianon 2021 ED [...] - pharynx pink and moist. NECK: -Supple ([id number]): non-tender. CARD: -Rate and rhythm: Regular -Edema: [...] I di (more content not included)... Normal [facility] ED Note-Nursingon 12-21-2021 ED Note-Nursing Travel Rn Or assumed care for pt at 2124. Pt had fluids running at that time. Will continue to give the rest of the liter per VO from MARIO ALBERTO. MARIO ALBERTO also stated that after speaking with neuro, pt is to be transferred to [facility] for MRI and further evaluation. Normal [facility] Ethanol.on 12-21-2021 Ethanol Level 9.0 mg/dL High 0.0-5.0 [facility] Comment on above: Performed By: #### 2 [id number] #### [facility] (DEFAULT) [address] [place] [address] 18947 Extra Morgan 12-21-2021 Tube Collected Yes Invalid Interpretation Code [facility] Comment on above: Performed By: #### 2 329235, [id number] #### [facility] (DEFAULT) [address] [place] [address] 16239 Extra Redon 12-21-2021 Tube Collected Yes Invalid Interpretation Code [facility] Comment on above: Performed By: #### 7 589559, 6612356582, 8551032, 79896425, 4431581, 6562183, 1132835425, 9938459, 6685481679 #### [facility] (DEFAULT) [address] [place] [address] 00107 Magnesiumon 12-21-2021 Magnesium [Mass/Vol] 2.02 mg/dL Normal 1.80-2.50 [facility] Comment on above: Performed By: #### 7 694501, 5446658651, 0578095, 16265604, 4211255, 4478080, 1116868986, 3467936, 5327250460 ####[facility] (DEFAULT)[address] [place] [address] 08831 PTon 12-21-2021 INR Coag (PPP) [Relative time] 0.94 {INR} Normal 0.91-1.11 [facility] Comment on above: Performed By: #### 7 142056, 7059666129, 4532035, 40927794, 1364669, 6434588, 1793892227, 9455812, 9960153152 ####[facility] (DEFAULT)[address] [place] [address] 94574 PT 10.2 second(s) Normal 9.7-11.8 [facility] Comment on above: Performed By: #### 7 588513, 7593781485, 8079525, 24476138, 6460850, 2818526, 2025784841, 6021162, 0263700800 ####[facility] (DEFAULT)[address] [place] [address] 39904 PTTon 12-21-2021 PTT 26 second(s) Normal 25-35 [facility] Comment on above: Performed By: #### 7 285247, 4064145743, 4994461, 41937373, 4045357, 8697674, 3147631177, 3474805, 0104781928 ####[facility] (DEFAULT)[address] [place] [address] 34152 Test Urine 1on U Preg Negative Normal [facility] Comment on above: Performed By: #### 1 [id number], 803277256 ####[facility] (DEFAULT)[address] [place] [address] 27396 U Preg Internal Control Pass Normal [facility] Comment on above: Performed By: #### 1 [id number], 902590214 ####[facility] (DEFAULT)[address] [place] [address] 21668 Salicylateon 12-21-2021 Salicylate Lvl <4.0 Normal 0.0-30.0 [facility] Comment on above: Result Comment: Sali cylate ranges less than 30 mg/dL are considered to be therapeutic. Levels greater than 30 mg/dL are considered toxic and levels greater than 60 mg/dL may be lethal. Performed By: #### 2 275907, [id number] #### [facility] (DEFAULT) [address] [place] [address] 32632 TnI HSon 12-21-2021 Troponin I High Sensitivity <2 Normal <=15 [facility] Comment on above: Result Comment: Male Baseline Delta 1Hr (Note pg/mL=ng/L) <20pg/mL 50-60% >20pg/mL 20% Female Baseline Delta 1Hr <15pg/mL 50-60% >15pg/mL 20% Other Baseline Delta 1Hr <18ng/mL 50-60% >18ng/mL 20% ([employer] Guidelines February 2018) Performed By: #### 7 175690, 2375962658, 7941862, 35367349, 5064384, 6895772, 2634131392, 1548930, 6404116688 ####[facility] (DEFAULT)[address] [place] [address] 38540 Triage Panel 12on 12-21-2021 Triage Internal Control Pass Normal [facility] Comment on above: Performed By: #### 1 [id number] ####[facility] (DEFAULT)[address] [place] [address] 50112 U Amph Scr Negative Normal [facility] Comment on above: Performed By: #### 1 [id number] ####[facility] (DEFAULT)[address] [place] [address] 66121 U Vanesa Scr Negative Normal [facility] Comment on above: Performed By: #### 1 [id number] ####[facility] (DEFAULT)[address] [place] [address] 45482 U Benzodia Scr Negative [facility] Comment on above: Performed By: #### 1 614497260 ####[facility] (DEFAULT)[address] [place] [address] 96420 U Cannab Scrn Negative Normal [facility] Comment on above: Performed By: #### 1 [id number] ####[facility] (DEFAULT)[address] [place] [address] 33457 U Cocaine Scr Negative [facility] Comment on above: Performed By: #### 1 [id number] ####[facility] (DEFAULT)[address] [place] [address] 07451 U Methadone Scr Negative [facility] Comment on above: Performed By: #### 1 [id number] ####[facility] (DEFAULT)[address] [place] [address] 52669 U Methamp Scrn Negative [facility] Comment on above: Performed By: #### 1 [id number] ####[facility] (DEFAULT)[address] [place] [address] 30101 U Opiate Scr Negative [facility] Comment on above: Performed By: #### 1 [id number] ####[facility] (DEFAULT)[address] [place] [address] 20780 U Oxycod Scr Negative [facility] Comment on above: Performed By: #### 1 [id number] ####[facility] (DEFAULT)[address] [place] [address] 76270 U Phencyclidine Scr Negative [facility] Comment on above: Performed By: #### 1 [id number] ####[facility] (DEFAULT)[address] [place] [address] 99319 U Propoxyphene Scr Negative [facility] Comment on above: Performed By: #### 1 [id number] ####[facility] (DEFAULT)[address] [place] [address] 56255 U Tricyclic Antidepress Scr Negative [facility] Comment on above: Result Comment: Resu [...] PPX Propoxyphene (Norpropoxyphene): 300 ng/mL THC Cannabinoids (40-whr-5-carboxy- -THC): 50 ng/mL TCA Tricyclic-Antidepressants (Desipramine): 300 ng/mL Performed By: #### 1 [id number] ####[facility] (DEFAULT)[address] [place] [address] Urine Source Clean Catch [facility] Comment on above: Performed By: #### 1 [id number] ####[facility] (DEFAULT)[address] [place] [address] UA w Culture if Ind Standard on 12-21-2021 Color (U) Yellow [facility] Comment on above: Performed By: #### 1 [id number], [id number] ####[facility] (DEFAULT)[address] [place] [address] Culture? Not Indicated Invalid Interpretation Code [facility] Comment on above: Result Comment: Resu lt created by rule GL_MAGR_ADD_UA_CULT1 Performed By: #### 1 [id number], [id number] ####[facility] (DEFAULT)[address] [place] [address] Glucose (U) [Mass/Vol] Negative [facility] Comment on above: Performed By: #### 1 [id number], [id number] ####[facility] (DEFAULT)[address] [place] [address] Ketones Ql (U) Negative [facility] Comment on above: Performed By: #### 1 [id number], [id number] ####[facility] (DEFAULT)[address] [place] [address] Micro? Not Indicated Invalid Interpretation Code [facility] Comment on above: Result Comment: Resu lt created by rule GL_MAGR_ADD_UA_MICRO Performed By: #### 1 [id number], [id number] ####[facility] (DEFAULT)[address] [place] [address] 88495 UA Bilirubin Negative Normal [facility] Comment on above: Performed By: #### 1 [id number], [id number] ####[facility] (DEFAULT)[address] [place] [address] 71193 UA Blood Negative Normal NEGATIVE [facility] Comment on above: Performed By: #### 1 [id number], [id number] ####[facility] (DEFAULT)[address] [place] [address] 19122 UA Clarity CLEAR Normal CLEAR [facility] Comment on above: Performed By: #### 1 [id number], [id number] ####[facility] (DEFAULT)[address] [place] [address] 90209 UA Leuk Est Negative Normal NEGATIVE [facility] Comment on above: Performed By: #### 1 [id number], [id number] ####[facility] (DEFAULT)[address] [place] [address] 09986 UA Nitrite Negative Normal NEGATIVE [facility] Comment on above: Performed By: #### 1 [id number], [id number] ####[facility] (DEFAULT)[address] [place] [address] 24867 UA pH 6.5 Normal 5-8 [facility] Comment on above: Performed By: #### 1 [id number], [id number] ####[facility] (DEFAULT)[address] [place] [address] 07688 UA Protein Negative Normal NEGATIVE [facility] Comment on above: Performed By: #### 1 [id number], [id number] ####[facility] (DEFAULT)[address] [place] [address] 90634 UA Spec Grav <=1.005 Normal 1.001-1.035 [facility] Comment on above: Performed By: #### 1 [id number], [id number] ####[facility] (DEFAULT)[address] [place] [address] UA Urobilinogen 0.2 mg/dL Normal 0.2-1.0 [facility] Comment on above: Performed By: #### 1 [id number], [id number] ####[facility] (DEFAULT)[address] [place] [address] 87008 Breakpoint UA Normal [facility] Comment on above: Performed By: #### 1 [id number], [id number] ####[facility] (DEFAULT)[address] [place] [address] 83907 Urine Source Clean Catch Normal [facility] Comment on above: Performed By: #### 1 [id number], [id number] ####[facility] (DEFAULT)[address] [place] [address] 99987 XR Chest 2 Viewson 2 XR Chest 2 Views EXAMINATION: XR Chest [...] Signature): Víctor Bowen 12/21/21 9:38 pm Technologist: BARBRA,Obed Normal [facility] CARDIAC HUMAIRA ADMITon 021 CK [Catalytic activity/Vol] 117 U/L Normal 30-135 [facility] Comment on above: Performed By: #### T JOÃO LOCK, CMP #### [facility] [address] [place], [place] [address] Nelida Bautista CK.MB [Mass/Vol] 1.16 ng/mL Normal <=2.37 [facility] Comment on above: Performed By: #### T JOÃO LOCK, CMP #### [facility] [address] [place], [place] [id number] Nelida Lily HSTROP <4.0 Normal 4.0-35.5 [facility] Comment on above: Result Comment: CUT- OFF POINTS HAVE BEEN ESTABLISHED BASED ON THE FOURTH UNIVERSAL DEFINITIONS OF MYOCARDIAL INFARCTION. THE UPPER REFERENCE LIMIT (URL) OF TROPONIN, DEFINED THE 99TH PERCENTILE OF cTnI DISTRIBUTION IN A REFERENCE POPULATION, HAS BEEN CONFIRMED THE DECISION THRESHOLD FOR MA DIAGNOSIS. Performed By: #### T JOÃO LOCK, CMP #### [facility] [address] [place] [address] Nelida Lily NGA 41.0 ng/mL Normal <=61.5 [facility] Comment on above: Performed By: #### T JOÃO LOCK, CMP #### [facility] [address] [place] [address] Nelida Lily CBC AUTO DIFFon 02-23-2021 BASO # 0.1 103/ul Normal 0.0-0.1 [facility] Comment on above: Performed By: #### C BC #### [facility] [address] [place], [place] [id number] Nelida Lily Basophils/100 WBC (Bld) 1.0 % Normal 0.2-2.0 [facility] Comment on above: Performed By: #### C BC #### [facility] [address] [place] [address] Nelida Lily EO # 0.1 103/ul Normal 0.0-0.7 [facility] Comment on above: Performed By: #### C BC #### [facility] [address] [place], [place] [address] Nelida Lily Eosinophils/100 WBC (Bld) 2.2 % Normal 0.9-7.0 [facility] Comment on above: Performed By: #### C BC #### [facility] [address] [place], [place] [address] Nelida Lily Erythrocyte distribution width (RBC) [Ratio] 14.2 % Normal 11.0-15.0 [facility] Comment on above: Performed By: #### C BC #### [facility] [address] [place], [place] [address] Nelida Lily Hematocrit (Bld) [Volume fraction] 40.6 % Normal 36.0-48.0 [facility] Comment on above: Performed By: #### C BC #### [facility] [address] [place], [place] [address] Nelida Lily Hemoglobin (Bld) [Mass/Vol] 13.3 g/dL Normal 12.0-16.0 [facility] Comment on above: Performed By: #### C BC #### [facility] [address] [place] [address] Nelida Lily IG # 0.02 10e3/ul Normal 0.00-0.03 [facility] Comment on above: Performed By: #### C BC #### [facility] [address] [place] [address] Nelida Lily IG % 0.4 % Normal 0.0-0.5 [facility] Comment on above: Performed By: #### C BC #### [facility] [address] [place] [address] Nelida Lily LYMPH # 1.7 103/ul Normal 1.2-3.8 [facility] Comment on above: Performed By: #### C BC #### [facility] [address] [place] [address] Nelida Lily Lymphocytes/100 WBC (Bld) 34.6 % Normal 20.5-60.0 [facility] Comment on above: Performed By: #### C BC #### [facility] [address] [place] [address] Nelida Lily MANUAL DIFF REQ NO Normal [facility] Comment on above: Performed By: #### C BC #### [facility] [address] [place], [place] [id number] Nelida Lily MCH (RBC) [Entitic mass] 31.5 pg Normal 26.7-34.0 [facility] Comment on above: Performed By: #### C BC #### [facility] [address] [place] [address] Nelida Lily MCHC (RBC) [Mass/Vol] 32.8 g/dL Normal 29.9-35.2 [facility] Comment on above: Performed By: #### C BC #### [facility] [address] [place], [place] [address] Nelida Bautista MCV (RBC) [Entitic vol] 96.2 fL Normal 81.0-99.0 [facility] Comment on above: Performed By: #### C BC #### [facility] [address] [place] [address] Nelida Bautista MONO # 0.4 103/ul Normal 0.3-0.8 [facility] Comment on above: Performed By: #### C BC #### [facility] [address] [place] [address] Nelida Bautista Monocytes/100 WBC (Bld) 7.1 % Normal 1.7-12.0 [facility] Comment on above: Performed By: #### C BC #### [facility] [address] [place] [address] Nelida Bautista NEUT # 2.7 103/ul Normal 1.4-6.5 [facility] Comment on above: Performed By: #### C BC #### [facility] [address] [place], [place] [id number] Nelida Bautista Neutrophils/100 WBC (Bld) 54.7 % Normal 43.0-75.0 [facility] Comment on above: Performed By: #### C BC #### [facility] [address] [place], [place] [id number] Nelida Bautista Platelet mean volume (Bld) [Entitic vol] 9.8 fL Normal 9.5-13.5 [facility] Comment on above: Performed By: #### C BC #### [facility] [address] [place] [address] Nelidajose Kimbleen PLT 320 103/ul Normal 150-450 [facility] Comment on above: Performed By: #### C BC #### [facility] [address] [place] [address] Nelidajose Kimbleen RBC 4.22 106/ul Normal 4.20-5.40 [facility] Comment on above: Performed By: #### C BC #### [facility] [address] [place] [address] Nelida Bautista WBC 4.9 103/ul Normal 4.0-11.0 [facility] Comment on above: Performed By: #### C BC #### [facility] [address] [place] [address] STROKE HEAD WOon 02-24-20 [...] JANESSA SKINNER Date: 2021-02-23 13:52 Normal [facility] [facility] URINE PROFILEon 1 Bilirubin Ql (U) Negative Normal NEGATIVE [facility] Comment on above: Performed By: #### E RUR #### [facility] [address] [place] [address] Nelida Bautista Clarity (U) CLEAR Normal CLEAR [facility] Comment on above: Performed By: #### E RUR #### [facility] [address] [address] Nelida Lily Color (U) LT. YELLOW Normal YELLOW [facility] Comment on above: Performed By: #### E RUR #### [facility] [address] [place] [address] Nelidajose Kimbleen ERUAHD A micrscopic examination will be performed if indicated. Normal The [facility] Comment on above: Performed By: #### E RUR #### [facility] [address] [place] [address] Nelida Lily Glucose Ql (U) Negative Normal NEGATIVE [facility] Comment on above: Performed By: #### E RUR #### [facility] [address] [place] [address] Nelida Lily Hemoglobin Ql (U) Negative Normal NEGATIVE [facility] Comment on above: Performed By: #### E RUR #### [facility] [address] [place] [address] Nelida Lily Ketones Ql (U) Negative Normal NEGATIVE [facility] Comment on above: Performed By: #### E RUR #### [facility] [address] [place] [address] Nelida Lily LEUKOCYTES Negative Normal NEGATIVE [facility] Comment on above: Performed By: #### E RUR #### [facility] [address] [place] [address] Nelida Lily Nitrite Ql (U) Negative Normal NEGATIVE [facility] Comment on above: Performed By: #### E RUR #### [facility] [address] [place] [address] Nelida Lily pH (U) 8.0 [pH] Normal 5-9 [facility] Comment on above: Performed By: #### E RUR #### [facility] [address] [place] [address] Nelida Lily SPEC GRAVITY 1.020 Normal 1.005-<=1.025 [facility] Comment on above: Performed By: #### E RUR #### [facility] [address] [place] [address] Nelida Lily UA PROTEIN Negative Normal NEGATIVE/ TRACE [facility] Comment on above: Performed By: #### E RUR #### [facility] [address] [place] [address] Nelida Lily UR MICRO IND NOT INDICATED Normal [facility] Comment on above: Performed By: #### E RUR #### [facility] [address] [place] [address] Nelida Bautista Urobilinogen Qn (U) 0.2 {Jose Carlos'U}/dL Normal 0.2 - 1. 0 [facility] Comment on above: Performed By: #### E RUR #### [facility] [address] [place], [place] [id number] Nelida Kimbleen POINT OF CARE GLUCOSEon 01-27 Glucose [Mass/Vol] 95 mg/dL Normal 74-106 [facility] Comment on above: Performed By: #### P OCGLUC #### [facility] [address] [place], [place] [id number] Nelida Bautista PREG HCG QUALon 02-23-2021 , QUAL Negative Normal NEGATIVE [facility] Comment on above: Performed By: #### P REG #### [facility] [address] [place] [address] Nelida Bautista PROF 14(COMP METB)on 021 Albumin [Mass/Vol] 3.6 g/dL Normal 3.5-5.0 [facility] Comment on above: Performed By: #### T HAYDE CMADM, CMP #### [facility] [address] [place], [place] [id number] Nelida Bautista Albumin/Globulin [Mass ratio] 0.9 {ratio} Normal [facility] Comment on above: Performed By: #### T HAYDE, CMADM, CMP #### [facility] [address] [place], [place] [id number] Nelida Lily ALP [Catalytic activity/Vol] 103 U/L Normal 38-126 [facility] Comment on above: Performed By: #### T HAYDE, CMADM, CMP #### [facility] [address] [place], [place] [id number] Nelida Lily ALT [Catalytic activity/Vol] 35 U/L Normal 9-52 [facility] Comment on above: Performed By: #### T HAYDE, CMADM, CMP #### [facility] [address] [place], [place] [id number] Nelida Lily Anion gap [Moles/Vol] 13.3 mmol/L Normal [facility] Comment on above: Performed By: #### T HAYDE CMADM, CMP #### [facility] [address] [address] Nelida Lily AST [Catalytic activity/Vol] 28 U/L Normal 14-36 [facility] Comment on above: Performed By: #### T HAYDE CMADM, CMP #### [facility] [address] [address] Nelida Lily Bilirubin [Mass/Vol] 0.2 mg/dL Normal 0.2-1.3 [facility] Comment on above: Performed By: #### T HAYDE CMADM, CMP #### [facility] [address] [place] [address] Nelida Lily Calcium [Mass/Vol] 9.0 mg/dL Normal 8.4-10.2 [facility] Comment on above: Performed By: #### T HAYDE CMADM, CMP #### [facility] [address] [place] [address] Nelida Lily Chloride [Moles/Vol] 108 mmol/L Critically high 98-107 [facility] Comment on above: Performed By: #### T HAYDE CMADM, CMP #### [facility] [address] [place] [address] Nelida Lily CO2 [Moles/Vol] 25.8 mmol/L Normal 22.0-30.0 [facility] Comment on above: Performed By: #### T HAYDE CMADM, CMP #### [facility] [address] [place] [address] Nelida Lily Creatinine [Mass/Vol] 1.00 mg/dL Normal 0.52-1.04 [facility] Comment on above: Performed By: #### T HAYDE CMADM, CMP #### [facility] [address] [place], [place] [id number] Nelida Lily EGFR-AF SENEGALESE >60 Normal >=60 [facility] Comment on above: Performed By: #### T HAYDE, CMADM, CMP #### [facility] [address] [address] Nelida Lily EGFR-NON AF SENEGALESE >60 Normal >=60 [facility] Comment on above: Performed By: #### T JOÃO LOCK, CMP #### [facility] [address] [id number] Nelida Lily Globulin (S) [Mass/Vol] 4.2 g/dL Normal [facility] Comment on above: Performed By: #### T JOÃO LOCK, CMP #### [facility] [address] [address] Nelida Lily Glucose [Mass/Vol] 95 mg/dL Normal 74-106 [facility] Comment on above: Performed By: #### T JOÃO LOCK, CMP #### [facility] [address] [place] [address] Nelida Lily Potassium [Moles/Vol] 4.1 mmol/L Normal 3.4-5.0 [facility] Comment on above: Performed By: #### T JOÃO LOCK, CMP #### [facility] [address] [place] [address] Nelida Lily Protein [Mass/Vol] 7.8 g/dL Normal 6.1-8.2 [facility] Comment on above: Performed By: #### T JOÃO LOCK, CMP #### [facility] [address] [place] [address] Nelida Lily Sodium [Moles/Vol] 143 mmol/L Normal 137-145 [facility] Comment on above: Performed By: #### T JOÃO LOCK, CMP #### [facility] [address] [place] [address] Nelida Lily Urea nitrogen [Mass/Vol] 10.0 mg/dL Normal 7.0-17.0 [facility] Comment on above: Performed By: #### T JOÃO LOCK, CMP #### [facility] [address] [place], [place] [id number] Nelida Lily Urea nitrogen/Creatinine [Mass ratio] 10.0 mg/mg Normal [facility] Comment on above: Performed By: #### T JOÃO LOCK, CMP #### [facility] [address] [place] [address] Nelida Bautista TSHon 02-23-2021 TSH 1.157 uIU/mL Normal 0.470-4.680 [facility] Comment on above: Performed By: #### T JOÃO LOCK, CMP #### [facility] [address] [place], [place] [address] Nelida Bautista TSH RANGE SEE BELOW Normal [facility] Comment on above: Result Comment: <0.3 4 UIU/ml HYPERTHYROID 0.34-5.60 UIU/ml EUTHYROID >5.60 UIU/ml HYPOTHYROID Performed By: #### T JOÃO LOCK, CMP #### [facility] [address] [place], [place] [address] Nelida Bautista XR CHEST 1 Von 02-23-2021 [...] JANESSA SKINNER Date: 2021-02-23 13:53 Normal [facility] Encounters Encounter Date Encounter Type Care Provider Facility Start: 08-22-2023 End: 08-22-2023 ambulatory Not Available Start: 12-22-2021 End: 12-22-2021 [facility] Start: 02-23-2021 End: 02-23-[address] DOCTOR GOODSON Facility:[facility] Payers Date Payer Category Payer Unknown [id number] 1985 Unknown [id number] 1985 Unknown [id number] 1957 Unknown [id number] Summary Purpose Family History No Family History Records FoundNo Family History Records FoundNo Family History Records FoundNo Family History Records Found Advance Directives No Advanced Directives Records FoundNo Advanced Directives Records FoundNo Advanced Directives Records FoundNo Advanced Directives Records Found Additional Source Comments INFORMATION SOURCE (unrecogn ized section and content) DATE CREATED AUTHOR 02/28/2021 [facility] DATE CREATED AUTHOR AUTHOR'S ORGANIZ ATION 12/24/2021 [facility] DATE CREATED AUTHOR AUTHOR'S ORGANIZ ATION 01/01/2022 [facility] DATE CREATED AUTHOR AUTHOR'S ORGANIZ ATION 08/23/2023 [facility] EPIC FOR RECORDS PERTAINING TO PATIENTS WHO ARE [...] BE BASED ON THE PRIMARY CLINICAL RECORDS. [facility] [email or web address] [facility]. provides no warranty or guarantee of the accuracy or completeness of information in this document.
== END 2023-10-21 13:24 | disposition home or self-care (01) ==
LOC: NOMS 13:26
PROVIDERS: Visit Provider Obstetrics & Gynecology
DX: Z36.89 Encounter for other specified antenatal screening (principal); Z3A.20 20 weeks gestation of pregnancy
CPT/HCPCS: 76805; 76817

== ENCOUNTER 2023-11-08 09:19 | Outpatient (OUT) | payer BC, SELFPAY ==
--- OUTSIDE RECORDS SUMMARY | 2023-11-08 09:22 | XMS_ITS | CCD ---
Author Organization [facility] Care Team Providers Care E Learning Developer Name Role Phone NAINAC, DR OLSON Primary Care Unavailable PAY, DR OLSEN Admitting Unavailable PAY, DR OLSEN Attending Unavailable ZIEBNEREIDA, DR JANESSA Davila Consulting Unavailable PAY, DR OLSEN Consulting Unavailable JARVIS RODRIGUEZ Referring Unavailable JARVIS RODRIGUEZ Primary Care Unavailable PEDRO CAMPBELLHMANYMAYI Consulting Unavail able CADEN CERNA Attending Unavailable CADEN CERNA Admitting Unavailable DAVIN GAGE Consulting Unavailable MARYANN VIZCARRA Attending Unavailable SHAWNA RICHTER Attending Unavailable Problems Problem Classification Problem Date Documented [...] Coding Summaryon 12-31-2021 Coding Summary HTMLBase 64 AqhdmquuOMp0uHc+PGhl YWQ+BQ7RXCEyZ90kzQEv dG9DU1nXLE2FHBUNWJLL BT8ZBR3ehMD3JJglV6Yx biAv YjhgzGEqZA78WOj6TSW3 yMgvDTzwoQ7nrSKpU1m8 MrSgOM94mM20NCmhFMCz DgV8YbCztebwoFUo U6xzRvPnxJYbKkc+PHRh YmxlIHdpZHRoPScxMDAl ZlAnwXrcGP0dXs1rADHr LWNvbGxhcHNlOiBj b7bzCYHoVKhxYH9eyJar I9WmaGD7QHGqu0m2Lr83 dHI+JUGyHWL5bPonFFyl w557SmQoj0usCMU0 lEDzKJjgJPQ8I12jf8G7 FSTxGGJwWIA7xCZ4kD6n qEszyaooV1LjtFJmVnT2 OFL3tZIscG9zrDec dhrkxS1sUqa+W89FJG8L USUTWH7NKlu7V4UlGrou dHI+AK18BUFvTE84fCEz fATqp8dxcGz1TuJo OHXgPYW6zTtbDTart8Pw HFXcK55twCQsu4G6LZIx fVmbtYKqYtAifAV5bC0x MWubnjfxv7pwzvhl Lovag2nhpn05kB70X72p TYomCAKjICP7WVFbPACj aPenim0lfV7aKz2+IDxj j9pvn7sdgCs2EdLl QIQwdiTipSwvYOI2l9Nb So94T5TauOsho2OwRkm5 vk17nGMse0Y8wBZ3NShx DDSbyM1vRRqaEsG2 DPCaUxLdzU85kHMnDWfh Hu6evOkpgDuwYX9aPANt rvuqZTBgmB1kIFZbxRJw xPlsGI7cMJKztfex e530YuKbJGZ3WSPuqVYk D6NczB7pDwBjPIJkFNLm F4XzeAYfYXasX096WOaq CjG9WCSgmkQvE1Ph JNCdxKalYzU5e6E4Vm5W a3TonkcaOPG5CXdfUKX5 NmS4WlRuEmO0E3KlEaj0 SKObuTmhZM3oM6Sd ZYJzyymwvzvscGP9XZMa CVBzeO23kLKgPYyqVr3u k3F8e606DBJbQWIelG53 Ma3ukLkyJOYxoGWS rO6oiaczy1mxcoyiDnRm SZOyQMo1TKk6EBNduPla HmSbMDW7MnR0HXG5yBAp oO0tcOjahfrawH8v Oyc+W28kuT7oXNU3XXN6 ixwqTJPwasWsSY83NK37 S8YmHjhgjHCitKZ+PGRp swBusRonJU8sWjMk x8rmi5CsPSliD8LqKQMc ZErjHpl3JCSlQRV6zIR9 xJ4zIYQwEOvbk4T1jOV5 F3GlouVath3zu6mc UBGtIGbnE56soATwn5M1 ZPUvqNL5EFTyrHoxUoQu bD79Wls+QGCqkPith1Kq Xgrhx3bfj1rrrCm0 IjMwJSIgdmFsaWduPSJ0 u3WhNc81Y69hZSnxHMOg SYWiUFLqHCDlbEdwqg3w vA7pLw5+PGNvbCB3 qZB1jM6pAMLkSiX5QTyw M775CiFjjEVzSdrym8rj j9ismKn2MkVkSASaulOc tNvmEIK2p3RwUu43 I48lQEwwTJRsQYBgJFXy YYTpdLtjod0rjT7dHk9+ DT1hu5dwqp10pH94qVK+ NYCpXFW0nBkhCCnk RKNjpR1eILfvFvR0VRDe JhEiiW00iWNyPXnhDo4b sDuzlIfdTK2zUKGqnjwn n521MlKnu3imPCCr uQCvHKxfQNL2D61fh4N4 UMUhLTZoCVU8uHS4yL4r bGlnbjogbGVmdDsgdmVy rPqlZLtxNGgsF429 IHRvcDsnPlBhdGllbnQg XfNpEPv2J1ZlJqx5HIBx mBeiEY9gwPGuRIezSn3p uMtzzBfaDA7aPPZc omvvg328NeRdm2jqWSTl fBGjHSwiWTQ5N23wc5V4 MMTmOLDuGLY8pMO1lA6t bGlnbjogbGVmdDsg kqYfpIhfPJkzQOwsA904 IHRvcDsnPkJpcnRoIERh fXK2DH06PC70hWArj4N9 vPW5F5QuVRNowdfv nwalbAW0IDEdDVGnwV12 Rt0jaHynBi4qPCXzMGQ6 YKWeuBMsE0AjfS4rSlBy XVUqGAXaQ5MirLCe BMxfI488SSfgVqN6JZFc hrUeY1CeSOTwmAwwFkD8 s5W3Xs0XP6Q5CX89LK47 sORcw3X0cIJ8L6Ic USFjkduwpfzofWY3PCZa JRZkjT03Cn9kjTgyPm8s RJPwWKL1VQFgfZXtL2Qz sV3fFhWbKPIcNRUn F5IksHPoTZekV884ZSnf PyZ1GXSbpxXzV6CwQOWu eVbqUgB9l9W2Fa0GAJi3 VA92SN18eNQqz5J3 yVE9Q6WxWLVvoaeptics dUM4PWHfBOAppR03As3t eLxqRq0bLAJiFCO4DYYm fFQdF7KfaM7fVhTp MRIyYTAgX9EbdANkSZme K293IApoMcE1IMPaulZk G5XvDOXqeEvrHwI1v3P8 Hp0RMEIoAU72PAH7 xQP7MT23ZE99Z0KnKusd dGFibGU+PHRhYmxlIHdp ZHRoPScxMDAlJyBzdHls DE7wCv5vYLBkWMHj rKkufVGmQxKww6ywYQRn EDjaSH6nxOskD1JnmRM6 UYCle3a6Fd90L46nM2Rg dXA+HNQtdCH6tVF7 eE7aFkYaHdV7BKjqR308 FkJdnJYoStpmv3xhy5hg xJz4AdS1EMNtcbCjbIfq ZUH1o5ScFz24N87q IHdpZHRoPSIxNSUiIHZh pUwzqr2kzT6oXx3+PGNv vLS8hNQ6vL1cKtLnOaH7 UGuoX583QvEvqLDa Sjbwx5lwm0qpeZr1QyIg ARPwzwBikNouRAY5m9Gu Jv18V0CqnKggx7MfRmq7 rm67kZAxi5N9kIN2 E5XpUDGgdltkbTMrbJpr AS3aEIDenrwqOMGobZ3a BGYvP3z8VdBnGbO8PPbw M1EflnL7WGWgrMTd PAdcNSG7E99vj4A1ZJFf VXDqKFC4mDH4cX0lfKyw bjogbGVmdDsgdmVydGlj UUrcUIwrA761OZQd yGgoVHIjhP2xFGJgiQKs tZrbQE6eSAXvrsekDvzE PFVSALPWENBFCpQBPD02 YC45mEOub0O9pTF2 O3GkJTDfapcyhrhghGM8 WCCjGQLnhF64bZHgJBdq Yi2in6T9p851EDXcYFEx vB02Qa8xtGhmZDDt uDKQrI3cnlyki1jwcjut RqCnUZWnCKo3CXo7HSXb cChjSvMgPFA6KzP4TSW4 eJOvvZ5ezLxqunhn hB0qCgf+MDEvMDgvMTk4 ODwvdGQ+QZIcTWW2iQzf RJwnWEXjhB8eFVLqW2e9 YiXnSiE5VWewI9Xj EIOnwuhxCz11mH9wPzZm DiG6NJysQ4DsjpP9FKFe pXCrRGxgMSQ3D62ck4W6 HJBnDMItPVP5gGO3 xL5acWujaknqtBRabCxd yqOpdXfcWOfvGZewE508 RLKouRklSeK3LPbsEOTw WP49EM77qXDae3B7 nGZ3T9PgRBLudkrujriv pFJ2RJQuVBPvjG34vYVv OTqlLe0qt2R6c189CRZh MGQwiK30Pj4yaRxi BOLrjFQSqU9tzesrk7tl egknBtYjGGWwXYi5MCj1 QFMpvZoiPuMhSIE5MjR5 FBG3mXVhdK7nvKde bjivsY7zSre+RkVNQUxF RP56KF00oTAvd9T9dIT4 K1VyGZTxnjuyundszTB0 LDFbVFYcjB07rUUd DXjcMk6bp1H0o169QELu GGMvaL74Hm3vfJedFZSx zFNYeN0cqzrls8nqlthx HyEqDNXrPPe2GSj0 STAyxAgtPfTrFPW1TjV2 OTB0aXTewJ8wyGptbtub oV2vUva+N6R5W2TvWujw dHI+DM66GOJfWF78 wRJicAMvl0pkqCj9SkGu TNDyOKF5uTzdQGvzj9Az TBMuU60rtSZxj5T3FLMd bGxhcHNlOyBlbXB0 eT9dWYrwtspdx3znkuip Wzngy1ngmy23qB42E09f IHdpZHRoPSIzMCUiIHZh nHiysq9rjO2xEe0+ GWUenNF3aLE5yV2wMqPq PsS1WRdxF193CoFtnARu Pngyh3jhq1ldkSj4QlKs JSIgdmFsaWduPSJ0 o8YxGl46A15xCNdpKREi JXIpHFSeMPRqxFexhd0t kG8iIt3+YS4rk6lqtj06 gW88xHO+PHRkIHN0 jIrxHMeoHISinY7rIQyv PgI1PJPhIkSipT62aQUx HSaqJu9isHqikRjxGA5n VYIawzgzv153YuYe m4okXVCyaTWpKWqvXEK6 C28ph0W7FGLeVKZeMLL7 yUC9yH6bbJslzxwdyIMd dDsgdmVydGljYWwt GDpvB920AMPqtHbkFkLg wFPcU7kojwCOPJ5wGvnj dGQ+CMNyHLH6fQtxKXuj KJAqoK0aPOVnG1x5 TfEyKuW4LPmcJ4EncaU2 LZSyxGZuCWGmdFCBqA7e qeyin1povgpqOuNoSIZm TEb2QEj6ENSkuLui YlKtRUT2IfM9ZVS4kVWc wJ2euQehfnonjF2qMpk+ RklOOjwvdGQ+PHRkIHN0 gMkeERkpGNCtiD1j NINsN3j0PeMuFmH0RGnz Q4AktpW6ZNOooINrCAXz qFUJaD6lsxiva6jzqmas FaPjNYNfRMl8GCu0 AFCxfTqiFnFrOUW9CvF3 DLU2eZDotE5cbOefxtcs uQ8tSwt+TVJOOjwvdGQ+ VOVfWUU2pWwnVThh BNHzjY8aTYMxX1e9PsIv HrA1EGvuL3AimsM6NVLe xMBeYTRruUQBpX9zrcjg c9fwwthqJvKsHCRe NTx7DLf4NPWonRmjAbLo KBH6QlE3ZVB1hXFqnG4x fDluvicwpC3pXxn+UGF5 IHB6BD89LT98W2Ix PjwvdGFibGU+PHRhYmxl IHdpZHRoPScxMDAlJyBz qAwyNN8lHg5iBEWoDCFz xOfwfCNsVwLgw1qt YXB (more content not included)... [facility] Coding Summary HTMLBase 64 BvglweboXCq7pFw+PGhl YWQ+PY0QLUJpX77tyNHc mR7DZ8jZYN6LDFENMDLZ QA0VYY3ysRF1JSbzK0Af biAv AdextVHuBV35IGf3TEB1 dVumJXasdK3mdRDrZ1o6 LhQiHR50bF40IVwkRVCv TbR5MmPfrkrqiVHc R4kvCgDpaPZhYzd+PHRh YmxlIHdpZHRoPScxMDAl CoSipZtsLR0aXw5wCGTx LWNvbGxhcHNlOiBj k3gkTRAdOQlqGL6rsPwk B9AliMC0QTCzy5h4Yt10 dHI+OWWhYYR8bDqsFWhj q671GhRiy0iwPSB3 hVBzILywDUT4H87es7Q8 MELxGKAhOVN6nGH0yB9o wUymuwwmZ3GicKZuCeP5 IXK2pVPpxN6lgJem mecskX6lUhz+V91KQT0L SIRCRM2WFal9N7DyZiim dHI+VU35OALcSO03mRVm yFWun8qneVw3HxKf KYTjATW9pUbeRBrvq9Qx TGUpE26nlWSnm9F5NIEh qMrxmMDeNqJalWR6mT6b XPrivnvkx3nbltid Mvmuc4fojj36jD76R03s VGozNVDfUOE9HWHxCWOh pXynvy8ujU8mHy1+IDxj b6sjk3drdOd2CpSv OFXsbsOyyAdeELP8y6Qx Gv49R3BzwOjlf5TmTeq2 nl69jGIbo9M6tCM1YQts JHInlX0nRSmhNcM6 CPCrXqSppJ23tTRyYNut Pl3gyTmxuPlfXB4kSTRw gyfvOFOrvP9mRCNwzYDj nJauAC2eKRQqmngk g523WeHvALO0VMPfeLOb F4GctC5jRvScBXKqSSBr S6LskTGzHXweB585FIlu BfZ5FBKehoMpR3Rp WOQfxVhnCkP6e4Z1Ar5F e8YrrkjfFRM7TOpbUUP9 IeH0PiZaQfN1H8IhLwe3 EBBrwDbvWX8nW9Mn WQHtlkrfuinuaPF1MAIi MPOlfB81lLGuPOdoBe9e d0P2p815MSCmFCObnB86 Rf0ziCovPKTgvBBU aW6gqmdqy2innfuhMaEm AEPdRFd0VVz7MKImbDea AePkPZK6IsL9IBJ6mWCu nZ8joTwerxkuoR7p Oyc+V00juJ4mOFE8HOV3 wcjmACWybwZkRF86OG74 Z2KlCquobSMcrNL+PGRp xhCvzLbgBV0mWaZp l8wna3CtSEsoB5PwEZMm DYnsEla2JDDwEPB4uTE0 cL5kJDCtIWwfo6Q9wLL2 N7MithGgxo7ms6dv KJSeYSydR27kmVQrb5Z8 AMJzwJX4JYGjgSihMoKm aY39Flv+KZYnsVrrw1Br Lktng1srr8tosDc9 IjMwJSIgdmFsaWduPSJ0 h5YtBk18X27bDIkfBSZj KSYsLBNqLQLxrIbgrk9m kS1aTu5+PGNvbCB3 pMI2dW7mFZKcJzY7IMns Z404OiSolNOzUzblo0vm e4fnkNm3MsYcEMOfloUm xNeqKSP9k1FlSy10 L37dMLfgACWoXBXzMGEh PATabEyeet8veW7gEi0+ KU6ny8lczg98cV38kQE+ DVFaTYV0jHfqZFbv ZCDkqF4qXQuoQbJ9ESNu BtHufS18gKDmXGuhIu4t vXjxpGvrOM6cJAXvizic h065BvHnw2kcHOEo iYQeSXzfMKT0L69cg6A9 VZGnVNIwXMF2jTP5pS7m bGlnbjogbGVmdDsgdmVy dNtgTHfrBSczA559 IHRvcDsnPlBhdGllbnQg WwVmLAn7Y0GcXhq6JXXi tNoyHX8ynAMpTPtzHe9p bSolsBirRI6aFTBz atovd986IkVpd7xjNQKq uORvNShcFBK7J45yd3Y4 CIHsNWLgPYO9cPZ0fZ6x bGlnbjogbGVmdDsg wcOscTkuIMgqNMuzY031 IHRvcDsnPkJpcnRoIERh yHV0QB75VM25yEAwo8V8 xPS1V0KlESVjuynf rooueFQ1DXMzNDYuzX37 Pv3mnIeiQe2eIFZqFBX2 EVExuKKoK5BfxN2aWgVp WBCmOHOuQ2UgyXTk HCepG352CCvfAdX9EAZb gxRdW6KvXSMycXdaQoL5 l7O3Pd9VD9F5IV40CP66 cSEel5G4mTJ1O4Bj YPNawxiugwvggWJ7EXBs MWTfvT13Pu8qdZsyTf5q QFHvIDQ3GMMpyPBsF4Hx uS4jQqJzNGSwRAIt G6QyyXGiWNuzJ453SKsz FiM5QPWcqcByT8LuAKRq aGrvHbZ0q1F6Wn9QCHq1 KR02YT05gJYld5F2 lRG6C0FbTVBqxrdsltmq eSW2IFLcRIMnuK34Jg6b fOtqZu7aZDGrOKM8AVGo fIBrJ5LjdA2uYtWl EXDqMNFgM6OivLMtMJms Y653DXueNeC0XNLooyYq V4IfGWYemPgsZrW7e4Q5 Ng9NABIwTL39RDU0 aXR9KL95VX21F2IvBlig dGFibGU+PHRhYmxlIHdp ZHRoPScxMDAlJyBzdHls IY8nBq3xBICmZBOy lMmsoICuWnEyy2uxQCLu CKwdYF8azLlyB4FnlCC8 EJYxc2a0He56O22lJ9Yp dXA+DOPpvSE3gNS6 jV4eBgUkGoV7OBpmQ224 DdKbhCPuCzgxw8ozk9sa tJw6BzI5ONTbchUnbAtr QFR1n8JbOq62Y02q IHdpZHRoPSIxNSUiIHZh zOlaxg5goL4qOf9+PGNv tTR9xLG8iC1wWpTaZeF6 TAvjP550OwUhcIXg Mdfyq3fog5sfrQl5EqJi IYEmmiMyoOseJIG7k1Df Ib67G2HlaMxum3BvIpu8 dx70kICbw1T2mWN4 B0ZqDOEvvbgtrJNnyQwq XN0gZMUkchhpKCHqwL0p EKDhB2f2DeCeFfX8SAba L6FtvmF9LMNzeLQw BBzxNAO2F83ad1H3ZHBa KGNnLAF8fLQ5sH6rlGba bjogbGVmdDsgdmVydGlj CFkzNUppC092UBVb tVdbUCGfrV0bKLNcpPEi dVnrHI4wHWYcyqhwLceG NEEIEULECTVKMqUMSP68 MT33hGSfc7U6uVZ1 M2VoASWrgknangbalRS7 AJEjALPkkU48xCVpCTjc Qx0pj4G1c753PWMtXFRz oT63Dp3mpLheLZJd pRAUfK7krfoir5bqxare PmOdXOExCLd3TRd6HOMh mTbtKhAbWOE9RsM1FTK9 yYJlmS9iqWezjcqt bP5kTcz+MDEvMDgvMTk4 ODwvdGQ+DZFnHPQ8tHms LYggGHWkrF0zPGXvK2p3 HrRvGcD9VQwwJ0Rl OCWgugmeMk54pK7iPwYd EhZ3BDoiK5RplmA1DSZn xKNqNGxqUZZ3X53mr9K7 GKHuPNOiPDU6pVS4 hT8lcCmyyyjrtAVsmBhc jeBplRmgURiuVVraV736 GEHoxWkiWyL8RYzsHPQj VR37UB07wTFyh1J7 eMH2D7KmJGNfbjvbtvuv fVR7IZAdKRQyuO74cBVs CLxsNz3ih8M0p324LXXi HNXbiS32Jz7evEjg FWKnrGUExN7qwsqql1ul bjfsCuCfNDTsKOm7XTc3 CROvlOboToZwANC2QjE3 BXQ4bTFlxC5qhQwr dtdxxN4mLei+RkVNQUxF ZB68JJ38tFPwv8S7oOU0 U8EhXSXfefpdjhpkaJB1 QPSmBXYiuL94sAQs NUuzQs6gc5K9d022VVLb GEWklW76Mj5ybFzqAGKd vNAJoM5ladopr1djlrcz HhUjGCSrTQf3TZy5 MQJpfZnhKkYpGKN1XxD6 MFB9kYDkkZ2ofYvvmeon pY2wVtg+VI4mmnhmwyY0 JV84HG40C8FdYcks dGFibGU+PHRhYmxlIHdp ZHRoPScxMDAlJyBzdHls BA7aFj5wWBWiCGKllAfs nYDuBeXdv5wgOBEp PGcqOV1ylJwzY7LtqEX3 ZBJof4s2Gg35B35mJ3Xg dXA+KWVhlKC2qVG1cB3p CaFuJeY8EWhcP400 GkMeaYQkRqtdn2ndy0cb uXm6WvTqOUXtwcMrgLdx FEX2c8WpLc18J33hLOrp ZHRoPSIyMCUiIHZh bAkxtp4rzQ2fMi5+PGNv fYM8mDM0jX6tRlTuTxT1 YEdmE007ErZxcLYfWrhj H46vC2TejBK+PHRy Qyw3ZQHylKuyTM8hmNBj TVnwCd1bGEH8SkOgOsEn FBdzB3CxBABizcquzmcg xDS6SNKqXDNzxM72 Ye7alEqePa3pVXAbBLK5 PZXgqMYpQ4UmqS5rHhYg NQEdZRXrQ8YavVJbLMrd X405PKdtKcS4LBWq ahGaK0LhYUYqyZmjSfO7 g3X7Ig4TzExyfYGmKG9u SgBjRZy4G9ZoUuk6FAMc vLtqBT3bkJGhLXqm Ly0xdWazkNosVR2bBAWu paudk308MdVtx9kzAHCu oTJbELthGMH0O67qz5K3 WKXjLFQfYGR4eQP6 iS7biXeiuwvdfEMvmKlm zdIvqWemWQtvNOtmR854 CVGhbHjkJyNSAcs3U8Oq Zqd7IKCqlYmzLC4r fZPtSBejJj2zoGamhUww PB0uKKJhczfnl898HmWn w5flYSHqdPScYSvrOZV7 M31wb2O1PBOvNFVr QXY7gFH5kT3ljThultsb bGVmdDsgdmVydGljYWwt DPmmC685VDAefVybDr4I Arj3V6QwBeg8OWTy tWbzEC3tjRLvYThpIn7r aLlwpSjrPO1fKEOvkuya v057MxZpe5ncBYHtlDMx CHkqIZS9N13te7K3 KFJhYPCoKXW9rLK3oW0c bGlnbjogbGVmdDsgdmVy xTfiCKegWVsbQ152NGEo cDsnPlBheWVyOjwv dGQ+NS69gn83M0RaYyhw Tvj4AJGrAYO9pLZ1mS8g BXCaERjpy0Z1jEQ8F4Wr amBuff2ja7dsWDVv ZTo (more content not included)... [facility] Noteon 12-26-2021 Ambulance Note [id number] [email or web address] [facility] ED Clinical Summaryon 2021 ED Clinical Summary [facility] - Emergency Department [address] [place], [place] [id number] ED Clinical Summary PERSON INFORMATION Name: LOCO HICKS Age: 36 Years Sex: FEMALE : 1985 MRN: Acct#: Visit Reason: Dizziness; FACIAL NUMBNESS, DIZZINESS Arrival: 12/21/2021 18:23:41 Discharge: 12/22/2021 00:02:00 LOS: 000 05:39 Check In: 12/21/2021 18:23:41 Checkout:12/22/2021 00:02:00 Address: [address] [place] [id number] PCP: Provider, None PROVIDER INFORMATION Provider Role Assigned Unassigned Alvin Bryan ED Provider 12/21/2021 18:26:52 12/21/2021 18:30:20 Sanjuana Ramirez DICE [employer]TER Nurse 12/21/2021 18:29:17 12/21/2021 23:14:12 MARIAJOSE EDEN ED PA 12/21/2021 18:30:25 Kerline Cartagena DICE SPOTTER Nurse 12/21/2021 21:46:32 Kerline Merrill RN ED [...] - pharynx pink and moist. NECK: -Supple ([id number]): non-tender. CARD: -Rate and rhythm: Regular -Edema: No -Calf pain: No RESP: -Respiratory effort and chest excursion with respirations: Normal -Breath sounds equal bilaterally: Clear -Wheezes: No -Rales: No BACK: -Signs of pain with movement: No ABD: -Distended: No (more content not included)... Normal [facility] ED Patient Education Noteon 12-22-2021 ED Patient Education Note Education Materials [facility] ED Patient Summaryon 022 ED Patient Summary [facility] - Emergency Department [address] [place], [place] [id number] PATIENT DISCHARGE INSTRUCTIONS Patient Information Name: LOCO HICKS Age: 36 Years Date of : 1985 Reason For Visit: Dizziness; FACIAL NUMBNESS, DIZZINESS Arrival Time: 12/21/2021 18:23:41 Primary Care Physician: Provider, None Attending Physician: Alvin Bryan Comment: Visit Diagnosis: Diagnoses This Visit Dizziness ([id number]) Paresthesias (R20.2) Visual disturbance (H53.9) Prescription Information: If you have been given a prescription for narcotics, seek immediate medical attention if you have any difficulty breathing or any sudden status changes such as confusion and sleepiness. If you or anyone you know is experiencing suicidal thoughts, mental health, alcohol and/or drug addiction problems; contact the [facility] 17/02 Crisis Hotline -Text 4HOPE to 022252. If you received any narcotics, sedation, or [...] and treatment you received today in the [facility] Emergency Department were for an urgent problem and are not intended as complete care. It is important for you to follow up with a doctor, nurse practitioner, or physician?s office administrative assistant for ongoing care. If your symptoms [...] of medications post discharge. Please inform your gardening supervisor/provider of your visit and for further instruction [...] for Disease Control and Prevention March 2014 [facility] MRI BRAIN W WO CONTRASTon MRI BRAIN [...] Ean Cedillo MD 12/22/21 Final result Normal [facility] MRI CERVICAL SPINE W WO [...] Ean Cedillo MD 12/22/21 Final result Normal [facility] [id number] 12-22-2021 SARS-CoV-2 (COVID-19) RNA SHELBI+probe Ql (Unsp spec) Not detected Normal [facility] Comment on above: Result Comment: [...] management decisions. Fact sheet for Healthcare Providers: https://www.fda.gov/media/575512/download Fact sheet for Patients: https://www.fda.gov/media/113184/download Methodology: Isothermal Nucleic Acid Amplification Performed By: #### C OVRB #### [place] [address] Air Pollution Auditor: Campbell Simmons MD SARS-CoV-2 (COVID-19) PCRon 12-22-2021 Employed in healthcare? No Invalid Interpretation Code [facility] Comment on above: Performed By: #### 6 [id number] ####[facility] (DEFAULT)[address] [place] [address] Group care resident? No Invalid Interpretation Code [facility] Comment on above: Performed By: #### 6 [id number] ####[facility] (DEFAULT)[address] [place] [address] 94198 In ICU? No Invalid Interpretation Code [facility] Comment on above: Performed By: #### 6 [id number] ####[facility] (DEFAULT)[address] [place] [address] 42459 status? Not Invalid Interpretation Code [facility] Comment on above: Performed By: #### 6 [id number] ####[facility] (DEFAULT)[address] [place] [address] SARS-CoV-2 (COVID-19) RNA SHELBI+probe Ql (Unsp spec) Not detected Normal Not Detected [facility] Comment on above: Result Comment: Perf ormed by PCR methodology. Performed By: #### 6 [id number] ####[facility] (DEFAULT)[address] [place] [address] SARS-CoV-2 (COVID-19) RNA SHELBI+probe Ql (Unsp spec) No Invalid Interpretation Code [facility] Comment on above: Performed By: #### 6 [id number] ####[facility] (DEFAULT)[address] [place] [address] Symptomatic as defined by CDC? No Invalid Interpretation Code [facility] Comment on above: Performed By: #### 6 [id number] ####[facility] (DEFAULT)[address] [place] [address] Transfer Noteon 12-22-2021 Transfer Note medication list sent with patient, Complete ED chart sent with patient. CD and med list sent w. patient to Hospital [Electronically Signed on: 12/22/2021 00:05 EDT] Nadya Garcia [Verified on: 12/22/2021 00:05 EDT] Nadya Garcia [facility] Transfer Note [id number] #1.00OTGTIFF [facility] Transfer Note [id number]. [id number] #1.00OTGTIFF [facility] Transfer Note transport called, [facility] called for transport to [facility]. Willie joyner will call when back in area from [facility]. [Electronically Signed on: 12/21/2021 22:14 EDT] Nadya Garcia [Verified on: 12/21/2021 22:14 EDT] Nadya Garcia Normal [facility] .Auto Diff 1on 12-21-2021 Auto Gooding % 7 % Normal 1-12 [facility] Comment on above: Performed By: #### 7 125184, [id number], 1512011, 20420250, 7961937, 2970988, 8571781426, 4543982, 2540532030 ####[facility] (DEFAULT)[address] [place] [address] Baso Abs# 0.0 x10 Normal 0.0-0.2 [facility] Comment on above: Performed By: #### 7 357384, [id number], 4350384, 88349042, 6517779, 5424435, 1969631508, 7148538, 9549089978 ####[facility] (DEFAULT)[address] [place] [address] Basophils/100 WBC (Bld) 0.4 % Normal 0.2-2.0 [facility] Comment on above: Performed By: #### 7 205419, [id number], 1113732, 68003823, 0401972, 8947638, 2593914059, 8274672, 2397932035 ####[facility] (DEFAULT)[address] [place] [address] Eos Abs# 0.1 x10 Normal 0.0-0.4 [facility] Comment on above: Performed By: #### 7 713810, 6896831092, 0266798, 87649208, 1741572, 0179984, 5537959220, 2706147, 6274615741 ####[facility] (DEFAULT)[address] [place] [address] 62321 Eosinophils/100 WBC (Bld) 0.7 % Low 0.9-4.0 [facility] Comment on above: Performed By: #### 7 237496, [id number], 5136067, 28932784, 3244877, 0867248, 3231968984, 9687255, 8003627881 ####[facility] (DEFAULT)[address] [place] [address] 56513 Lymph Abs# 3.2 x10 High 1.3-2.9 [facility] Comment on above: Performed By: #### 7 611146, 7907726044, 0063267, 93575768, 0518886, 2578650, 9788803821, 9622524, 7211517841 ####[facility] (DEFAULT)[address] [place] [address] 15475 Lymphocytes/100 WBC (Bld) 40 % Normal 14-48 [facility] Comment on above: Performed By: #### 7 883467, 0269639253, 4442544, 82402516, 1714738, 0138388, 9994402496, 3522922, 1650696945 ####[facility] (DEFAULT)[address] [place] [address] 04566 Gooding Abs# 0.6 x10 Normal 0.0-0.8 [facility] Comment on above: Performed By: #### 7 677322, 2946147275, 2396627, 42071026, 6742225, 3815664, 7117022369, 4739480, 2220596289 ####[facility] (DEFAULT)[address] [place] [address] 57217 Neut Abs# 4.3 x10 Normal 1.5-9.2 [facility] Comment on above: Performed By: #### 7 041636, 7570807462, 4122688, 91367366, 7839613, 7963860, 3341296271, 5239609, 4176161475 ####[facility] (DEFAULT)[address] [place] [address] 61492 Neutrophils/100 WBC (Bld) 53 % Normal 44-88 [facility] Comment on above: Performed By: #### 7 086499, 9775711933, 9568108, 69275893, 4331288, 2807520, 8665990269, 6269393, 1767730761 ####[facility] (DEFAULT)[address] [place] [address] 18109 CBC w/ Auto Diffon 2 Erythrocyte distribution width (RBC) [Ratio] 14.3 % Normal 11.5-15.0 [facility] Comment on above: Performed By: #### 7 771779, 7531728181, 6583133, 03375220, 1657484, 8229415, 9682780227, 3585601, 2223866765 ####[facility] (DEFAULT)[address] [place] [address] Hematocrit (Bld) [Volume fraction] 42.3 % High 33.7-40.4 [facility] Comment on above: Performed By: #### 7 223923, 7375040709, 3775001, 13788540, 2185229, 3831801, 1507701767, 1103904, 9880918442 ####[facility] (DEFAULT)[address] [place] [address] Hemoglobin (Bld) [Mass/Vol] 13.7 g/dL Normal 11.3-15.9 [facility] Comment on above: Performed By: #### 7 976256, 5725222699, 4203920, 66466706, 8730005, 2590696, 7560365369, 9213894, 4680461600 ####[facility] (DEFAULT)[address] [place] [address] 04801 Instr WBC 8.2 x10 Invalid Interpretation Code [facility] Comment on above: Performed By: #### 7 412457, 8379847444, 7389844, 93692338, 9087027, 0044562, 3991942050, 3206291, 4987377440 ####[facility] (DEFAULT)[address] [place] [address] 76365 Man Diff? Auto Normal [facility] Comment on above: Performed By: #### 7 983840, 1374233013, 9322250, 90984955, 0714778, 9611214, 0363587917, 9797791, 1397873942 ####[facility] (DEFAULT)[address] [place] [address] MCH (RBC) [Entitic mass] 31 pg Normal 24-34 [facility] Comment on above: Performed By: #### 7 346797, 0148632964, 7876800, 31514580, 2272312, 7980842, 6854880049, 5785777, 2431399623 ####[facility] (DEFAULT)[address] [place] [address] MCHC (RBC) [Mass/Vol] 32 g/dL Normal 26-37 [facility] Comment on above: Performed By: #### 7 111913, 3405328051, 1614079, 31542802, 2412345, 7026933, 9029894435, 1904662, 7298807437 ####[facility] (DEFAULT)[address] [place] [address] 54702 MCV (RBC) [Entitic vol] 96 fL Normal 81-100 [facility] Comment on above: Performed By: #### 7 240733, 9050615670, 2672935, 33812393, 3449136, 5767712, 7315175497, 8330521, 2385301832 ####[facility] (DEFAULT)[address] [place] [address] 56161 Platelet 363 x10 Normal 138-427 [facility] Comment on above: Performed By: #### 7 138648, 8647603133, 8301353, 90250870, 4283176, 0438882, 8186005159, 5687455, 6731177772 ####[facility] (DEFAULT)[address] [place] [address] 83519 Platelet mean volume (Bld) [Entitic vol] 10.2 fL Normal 6.3-10.2 [facility] Comment on above: Performed By: #### 7 228605, 1073080046, 5047819, 16730874, 9258267, 3353666, 0609186770, 8387683, 5814790997 ####[facility] (DEFAULT)[address] [place] [address] 25491 RBC 4.42 x10 Normal 3.70-5.30 [facility] Comment on above: Performed By: #### 7 665758, 3713285775, 4205643, 12434308, 2275873, 4177155, 6713816237, 3980919, 4212985170 ####[facility] (DEFAULT)[address] [place] [address] 57738 WBC 8.2 x10 Normal 3.5-10.5 [facility] Comment on above: Performed By: #### 7 155513, 4871829098, 0611477, 82317653, 7197187, 7622849, 2632759620, 4983845, 0183295981 ####[facility] (DEFAULT)[address] [place], [place] [address] [facility] Standardon 12-21-2021 eGFR Non AA 57 mL/min/1.73m2 Invalid Interpretation Code [facility] Comment on above: Performed By: #### 7 016791, 7562524874, 9140707, 45390747, 5571061, 9246827, 6744838569, [id number], [id number] ####[facility] (DEFAULT)[address] [place] [address] 06978 eGFR AA >60 Invalid Interpretation Code [facility] Comment on above: Result Comment: Parts Identifier nathalia Kidney disease could be indicated at eGFRs of less than 60 ml/min/1.73m2. Kidney Failure is indicated at less than 15 ml/min/1.73m2 Performed By: #### 7 626330, [id number], 3730818, 09940984, 6688783, 8683915, 8323419399, 0780932, [id number] ####[facility] (DEFAULT)[address] [place] [address] 16423 Albumin [Mass/Vol] 4.7 g/dL Normal 3.5-5.0 [facility] Comment on above: Performed By: #### 7 310426, [id number], 4897716, 00053389, 4261295, 4427532, 6922527815, 6081634, 5834035310 ####[facility] (DEFAULT)[address] [place] [address] 84889 Albumin/Globulin [Mass ratio] 1.1 {ratio} Low 1.4-2.6 [facility] Comment on above: Performed By: #### 7 920912, 3883763950, 4223938, 94353575, 4549436, 4055351, 9121335225, 0614198, 0775214558 ####[facility] (DEFAULT)[address] [place] [address] 78386 Alk Phos 99 IU/L High 32-91 [facility] Comment on above: Performed By: #### 7 409359, [id number], 8710191, 42091996, 0507790, 0680933, 5208300458, 5084268, 6584863579 ####[facility] (DEFAULT)[address] [place] [address] 82434 ALT [Catalytic activity/Vol] 32.0 U/L Normal 14.0-54.0 [facility] Comment on above: Performed By: #### 7 764937, 8604905027, 0719412, 85004204, 6257771, 9903635, 2859411242, 0150307, 7790276036 ####[facility] (DEFAULT)[address] [place] [address] 59326 Anion gap [Moles/Vol] 23.0 mmol/L High 5.0-19.0 [facility] Comment on above: Performed By: #### 7 996769, 8011043255, 0255481, 84563256, 2728684, 2477051, 9693056557, 7834896, 7081959969 ####[facility] (DEFAULT)[address] [place] [address] 00894 AST [Catalytic activity/Vol] 41 U/L Normal 15-41 [facility] Comment on above: Performed By: #### 7 024357, 5090417382, 6541270, 01693453, 4205517, 0017881, 5447106468, 4692083, 2158844105 ####[facility] (DEFAULT)[address] [place] [address] 35030 Bili Total 0.4 mg/dL Normal 0.3-1.2 [facility] Comment on above: Performed By: #### 7 502379, 9317134068, 1283283, 66970728, 5619646, 9983110, 3935997936, 7169777, 1156028079 ####[facility] (DEFAULT)[address] [place] [address] 99801 Calcium [Mass/Vol] 10.2 mg/dL Normal 8.9-10.3 [facility] Comment on above: Performed By: #### 7 648269, 4211802753, 6495857, 21120938, 9423833, 4976871, 3852990243, 1241275, 7032180214 ####[facility] (DEFAULT)[address] [place] [address] 75300 Chloride [Moles/Vol] 96 mmol/L Low 101-111 [facility] Comment on above: Performed By: #### 7 624414, 6941293651, 7611060, 44173033, 3994453, 9110441, 2886717181, 3203618, 8644718673 ####[facility] (DEFAULT)[address] [place] [address] 04549 CO2 [Moles/Vol] 24 mmol/L Normal 21-32 [facility] Comment on above: Performed By: #### 7 085161, 2102191825, 4997606, 68693662, 4966416, 6509239, 9971767794, 2046989, 0104195412 ####[facility] (DEFAULT)[address] [place] [address] 03835 Creatinine [Mass/Vol] 1.10 mg/dL Normal 0.60-1.30 [facility] Comment on above: Performed By: #### 7 163845, 0751077656, 2310492, 43233846, 7119593, 6438932, 2063320260, 0607357, 4639615049 ####[facility] (DEFAULT)[address] [place] [address] 97284 Globulin (S) [Mass/Vol] 4.2 g/dL Normal 1.5-4.3 [facility] Comment on above: Performed By: #### 7 616375, 2989594119, 2690592, 56053725, 9527245, 4959667, 8652019461, 1662686, 2954290387 ####[facility] (DEFAULT)[address] [place] [address] 89311 Glucose [Mass/Vol] 97.0 mg/dL Normal 74.0-118.0 [facility] Comment on above: Performed By: #### 7 968991, 2520958949, 7255554, 58368658, 9771637, 0719962, 7233763130, 3926070, 8577321362 ####[facility] (DEFAULT)[address] [place] [address] 56178 Osmolality 278 mOsm/L Invalid Interpretation Code [facility] Comment on above: Performed By: #### 7 504281, 1298951016, 5034720, 49608075, 1685843, 4539734, 8682218163, 6494052, 1829283875 ####[facility] (DEFAULT)[address] [place] [address] 59724 Potassium [Moles/Vol] 3.5 mmol/L Low 3.6-5.1 [facility] Comment on above: Performed By: #### 7 263721, 2754528979, 3028258, 85052646, 7415745, 6195950, 8898379083, 8357065, 1160989086 ####[facility] (DEFAULT)[address] [place] [address] 91126 Protein [Mass/Vol] 8.9 g/dL High 6.5-8.1 [facility] Comment on above: Performed By: #### 7 120894, 1594682889, 6813516, 10595076, 5982835, 9082919, 6374433592, 0968098, 7858867721 ####[facility] (DEFAULT)[address] [place] [address] 17500 Sodium [Moles/Vol] 139.0 mmol/L Normal 136.0-144.0 [facility] Comment on above: Performed By: #### 7 111180, 5698200224, 9058729, 07135404, 8595468, 8245000, 6616261443, 4842617, 2538989044 ####[facility] (DEFAULT)[address] [place] [address] 24412 Urea nitrogen [Mass/Vol] 15 mg/dL Normal 8-26 [facility] Comment on above: Performed By: #### 7 837280, 4547397656, 7731193, 18895545, 8143632, 2187286, 8623007793, 8250369, 3984231993 ####[facility] (DEFAULT)[address] [place] [address] 44016 Urea nitrogen/Creatinine [Mass ratio] 14.0 mg/mg Normal 4.6-16.2 [facility] Comment on above: Performed By: #### 7 845450, 6897328770, 0832809, 14230604, 2965731, 9773798, 7769242304, 6373553, 2677292980 ####[facility] (DEFAULT)[address] [place] [address] Head or Brain w/o Kirk cortes [...] Ha 12/21/21 9:19 pm Technologist: Erwin CHAUDHARI [facility] D-Dimeron 12-21-2021 D-Dimer 0.49 mg/L FEU Normal [...] Liver cirrhosis ? Performed By: #### 7 014151, 8359555081, 0802093, 70466717, 2453351, 5085212, 9886959861, 1216819, 7044265033 ####[facility] (DEFAULT)[address] [place] [address] ED Note - Otheron 12-21-2021 ED Note - Other Neurology called back from [facility], on phone with Mariajose LLANES [Electronically Signed on: 12/21/2021 21:29 EDT] Nadya Garcia [Verified on: 12/21/2021 21:29 EDT] Nadya Garcia [facility] ED Note - Other paging Neurology through [facility] for consult for Mariajose LLANES [Electronically Signed on: 12/21/2021 21:12 EDT] Nadya Garcia [Verified on: 12/21/2021 21:12 EDT] Nadya Garcia [facility] ED Note - Physicianon 2021 ED Note [...] - pharynx pink and moist. NECK: -Supple ([id number]): non-tender. CARD: -Rate and rhythm: Regular -Edema: [...] [facility] ED Note-Nursingon 12-21-2021 ED Note-Nursing Causticiser assumed care for pt at 2124. Pt had fluids running at that time. Will continue to give the rest of the liter per VO from MARIO ALBERTO. PA also stated that after speaking with neuro, pt is to be transferred to [facility] for MRI and further evaluation. Normal [facility] Ethanol.on 12-21-2021 Ethanol Level 9.0 mg/dL High 0.0-5.0 [facility] Comment on above: Performed By: #### 2 [id number] #### [facility] (DEFAULT) [address] [place] [address] 44690 Extra Kimmell 12-21-2021 Tube Collected Yes Invalid Interpretation Code [facility] Comment on above: Performed By: #### 2 523776, [id number] #### [facility] (DEFAULT) [address] [place] [address] Extra Redon 12-21-2021 Tube Collected Yes Invalid Interpretation Code [facility] Comment on above: Performed By: #### 7 460821, 4379551285, 4903342, 93588364, 3227320, 2715242, 6243515705, 2940109, 1441463383 #### [facility] (DEFAULT) [address] [place] [address] 46580 Magnesiumon 12-21-2021 Magnesium [Mass/Vol] 2.02 mg/dL Normal 1.80-2.50 [facility] Comment on above: Performed By: #### 7 498833, 0435527345, 7900676, 59422682, 7193295, 9963462, 9359934161, 7091158, 8503137162 ####[facility] (DEFAULT)[address] [place] [address] 52460 PTon 12-21-2021 INR Coag (PPP) [Relative time] 0.94 {INR} Normal 0.91-1.11 [facility] Comment on above: Performed By: #### 7 932767, 8334498036, 0502286, 88326516, 3551357, 9265110, 1666588033, 1145967, 2882943368 ####[facility] (DEFAULT)[address] [place] [address] PT 10.2 second(s) Normal 9.7-11.8 [facility] Comment on above: Performed By: #### 7 317152, 9199238636, 6577513, 03016573, 3740287, 7937384, 5442709050, 3562237, 9343298763 ####[facility] (DEFAULT)[address] [place] [address] 09592 PTTon 12-21-2021 PTT 26 second(s) Normal 25-35 [facility] Comment on above: Performed By: #### 7 009218, 9270936081, 4612063, 47464076, 4592679, 8794626, 5574592533, 9988350, 0826301383 ####[facility] (DEFAULT)[address] [place] [address] 88440 Test Urine 1 U Preg Negative Normal [facility] Comment on above: Performed By: #### 1 [id number], 600167379 ####[facility] (DEFAULT)[address] [place] [address] 40732 U Preg Internal Control Pass Normal [facility] Comment on above: Performed By: #### 1 112086037, 167397135 ####[facility] (DEFAULT)[address] [place] [address] 02246 Salicylateon 12-21-2021 Salicylate Lvl <4.0 Normal 0.0-30.0 [facility] Comment on above: Result Comment: Sali cylate ranges less than 30 mg/dL are considered to be therapeutic. Levels greater than 30 mg/dL are considered toxic and levels greater than 60 mg/dL may be lethal. Performed By: #### 2 382703, [id number] #### [facility] (DEFAULT) [address] [place] [address] 59490 TnI HSon 12-21-2021 Troponin I High Sensitivity <2 Normal <=15 [facility] Comment on above: Result Comment: Male Baseline Delta 1Hr (Note pg/mL=ng/L) <20pg/mL 50-60% >20pg/mL 20% Female Baseline Delta 1Hr <15pg/mL 50-60% >15pg/mL 20% Other Baseline Delta 1Hr <18ng/mL 50-60% >18ng/mL 20% ([employer] Guidelines February 2018) Performed By: #### 7 871640, 8885618394, 8004396, 52479037, 9210235, 5322887, 7773643157, 4235439, 9244034679 ####[facility] (DEFAULT)[address] [place] [address] 75510 Triage Panel 12on 12-21-2021 Triage Internal Control Pass Normal [facility] Comment on above: Performed By: #### 1 [id number] ####[facility] (DEFAULT)[address] [place] [address] 43025 U Amph Scr Negative Normal [facility] Comment on above: Performed By: #### 1 [id number] ####[facility] (DEFAULT)[address] [place] [address] 05221 U Vanesa Scr Negative [facility] Comment on above: Performed By: #### 1 [id number] ####[facility] (DEFAULT)[address] [place] [address] 99045 U Benzodia Scr Negative [facility] Comment on above: Performed By: #### 1 [id number] ####[facility] (DEFAULT)[address] [place] [address] 41995 U Cannab Scrn Negative [facility] Comment on above: Performed By: #### 1 [id number] ####[facility] (DEFAULT)[address] [place] [address] 46442 U Cocaine Scr Negative [facility] Comment on above: Performed By: #### 1 [id number] ####[facility] (DEFAULT)[address] [place] [address] 50065 U Methadone Scr Negative [facility] Comment on above: Performed By: #### 1 [id number] ####[facility] (DEFAULT)[address] [place] [address] 44938 U Methamp Scrn Negative [facility] Comment on above: Performed By: #### 1 [id number] ####[facility] (DEFAULT)[address] [place] [address] 28303 U Opiate Scr Negative [facility] Comment on above: Performed By: #### 1 [id number] ####[facility] (DEFAULT)[address] [place] [address] 96016 U Oxycod Scr Negative [facility] Comment on above: Performed By: #### 1 [id number] ####[facility] (DEFAULT)[address] [place] [address] 11309 U Phencyclidine Scr Negative [facility] Comment on above: Performed By: #### 1 [id number] ####[facility] (DEFAULT)[address] [place] [address] 75139 U Propoxyphene Scr Negative [facility] Comment on above: Performed By: #### 1 [id number] ####[facility] (DEFAULT)[address] [place] [address] 90801 U Tricyclic Antidepress Scr Negative [facility] Comment on above: Result Comment: Resu lts [...] PPX Propoxyphene (Norpropoxyphene): 300 ng/mL THC Cannabinoids (15-ruq-1-carboxy- -THC): 50 ng/mL TCA Tricyclic-Antidepressants (Desipramine): 300 ng/mL Performed By: #### 1 [id number] ####[facility] (DEFAULT)[address] [place] [address] Urine Source Clean Catch [facility] Comment on above: Performed By: #### 1 [id number] ####[facility] (DEFAULT)[address] [place] [address] UA w Culture if Ind Standard on 12-21-2021 Color (U) Yellow [facility] Comment on above: Performed By: #### 1 [id number], [id number] ####[facility] (DEFAULT)[address] [place] [address] Culture? Not Indicated Invalid Interpretation Code [facility] Comment on above: Result Comment: Resu lt created by rule GL_MAGR_ADD_UA_[id number] Performed By: #### 1 [id number], [id number] ####[facility] (DEFAULT)[address] [place] [address] Glucose (U) [Mass/Vol] Negative [facility] Comment on above: Performed By: #### 1 [id number], [id number] ####[facility] (DEFAULT)[address] [place] [address] 99730 Ketones Ql (U) Negative [facility] Comment on above: Performed By: #### 1 [id number], [id number] ####[facility] (DEFAULT)[address] [place] [address] 89611 Micro? Not Indicated Invalid Interpretation Code [facility] Comment on above: Result Comment: Resu lt created by rule GL_MAGR_ADD_UA_MICRO Performed By: #### 1 [id number], [id number] ####[facility] (DEFAULT)[address] [place] [address] 78186 UA Bilirubin Negative Normal [facility] Comment on above: Performed By: #### 1 [id number], 969476711 ####[facility] (DEFAULT)[address] [place] [address] 94316 UA Blood Negative Normal NEGATIVE [facility] Comment on above: Performed By: #### 1 [id number], [id number] ####[facility] (DEFAULT)[address] [place] [address] 83466 UA Clarity CLEAR Normal CLEAR [facility] Comment on above: Performed By: #### 1 [id number], 069855697 ####[facility] (DEFAULT)[address] [place] [address] 40080 UA Leuk Est Negative Normal NEGATIVE [facility] Comment on above: Performed By: #### 1 [id number], [id number] ####[facility] (DEFAULT)[address] [place] [address] 72577 UA Nitrite Negative Normal NEGATIVE [facility] Comment on above: Performed By: #### 1 [id number], [id number] ####[facility] (DEFAULT)[address] [place] [address] 34294 UA pH 6.5 Normal 5-8 [facility] Comment on above: Performed By: #### 1 [id number], [id number] ####[facility] (DEFAULT)[address] [place] [address] 77904 UA Protein Negative Normal NEGATIVE [facility] Comment on above: Performed By: #### 1 [id number], [id number] ####[facility] (DEFAULT)[address] [place] [address] 10623 UA Spec Grav <=1.005 Normal 1.001-1.035 [facility] Comment on above: Performed By: #### 1 [id number], [id number] ####[facility] (DEFAULT)[address] [place] [address] UA Urobilinogen 0.2 mg/dL Normal 0.2-1.0 [facility] Comment on above: Performed By: #### 1 [id number], 010830936 ####[facility] (DEFAULT)[address] [place] [address] 16807 Breakpoint UA Normal [facility] Comment on above: Performed By: #### 1 [id number], [id number] ####[facility] (DEFAULT)[address] [place] [address] 86112 Urine Source Clean Catch Normal [facility] Comment on above: Performed By: #### 1 [id number], [id number] ####[facility] (DEFAULT)[address] [place] [address] 38275 XR Chest 2 Viewson XR Chest 2 [...] CK [Catalytic activity/Vol] 117 U/L Normal 30-[address] [facility] Comment on above: Performed By: #### T SH, CMADM, CMP #### [facility] [address] [place], [place] [address] Nelida Bautista CK.MB [Mass/Vol] 1.16 ng/mL Normal <=2.37 [facility] Comment on above: Performed By: #### T HAYDE, CMADM, CMP #### [facility] [address] [place] [address] Nelida Lily HSTROP <4.0 Normal 4.0-35.5 [facility] Comment on above: Result Comment: CUT- OFF POINTS HAVE BEEN ESTABLISHED BASED ON THE FOURTH UNIVERSAL DEFINITIONS OF MYOCARDIAL INFARCTION. THE UPPER REFERENCE LIMIT (URL) OF TROPONIN, DEFINED THE 99TH PERCENTILE OF cTnI DISTRIBUTION IN A REFERENCE POPULATION, HAS BEEN CONFIRMED THE DECISION THRESHOLD FOR MS DIAGNOSIS. Performed By: #### T HAYDE, CMADM, CMP #### [facility] [address] [place] [address] Nelida Lily NGA 41.0 ng/mL Normal <=61.[address] [facility] Comment on above: Performed By: #### T HAYDE, CMADM, CMP #### [facility] [address] [place] [address] Nelida Lily CBC AUTO DIFFon 02-23-2021 BASO # 0.1 103/ul Normal 0.0-0.1 [facility] Comment on above: Performed By: #### C BC #### [facility] [address] [place] [address] Nelida Lily Basophils/100 WBC (Bld) 1.0 % Normal 0.2-2.[address] [facility] Comment on above: Performed By: #### C BC #### [facility] [address] [place], [place] [address] Nelida Lily EO # 0.1 103/ul Normal 0.0-0.[address] [facility] Comment on above: Performed By: #### C BC #### [facility] [address] [place], [place] [address] Nelida Lily Eosinophils/100 WBC (Bld) 2.2 % Normal 0.9-7.[address] [facility] Comment on above: Performed By: #### C BC #### [facility] [address] [place], [place] [address] Nelida Lily Erythrocyte distribution width (RBC) [Ratio] 14.2 % Normal 11.0-15.0 [facility] Comment on above: Performed By: #### C BC #### [facility] [address] [place] [address] Nelida Bautista Hematocrit (Bld) [Volume fraction] 40.6 % Normal 36.0-48.0 [facility] Comment on above: Performed By: #### C BC #### [facility] [address] [place] [address] Nelida Bautista Hemoglobin (Bld) [Mass/Vol] 13.3 g/dL Normal 12.0-16.0 [facility] Comment on above: Performed By: #### C BC #### [facility] [address] [place] [address] Nelida Bautista IG # 0.02 10e3/ul Normal 0.00-0.03 [facility] Comment on above: Performed By: #### C BC #### [facility] [address] [place] [address] Nelida Bautista IG % 0.4 % Normal 0.0-0.5 [facility] Comment on above: Performed By: #### C BC #### [facility] [address] [place] [address] Nelida Bautista LYMPH # 1.7 103/ul Normal 1.2-3.8 [facility] Comment on above: Performed By: #### C BC #### [facility] [address] [place] [address] Nelida Bautista Lymphocytes/100 WBC (Bld) 34.6 % Normal 20.5-60.0 [facility] Comment on above: Performed By: #### C BC #### [facility] [address] [place] [address] Nelida Bautista MANUAL DIFF REQ NO Normal [facility] Comment on above: Performed By: #### C BC #### [facility] [address] [place], [place] [id number] Nelida Bautista MCH (RBC) [Entitic mass] 31.5 pg Normal 26.7-34.0 [facility] Comment on above: Performed By: #### C BC #### [facility] [address] [place] [id number] Nelidajose Bautista MCHC (RBC) [Mass/Vol] 32.8 g/dL Normal 29.9-35.[address] [facility] Comment on above: Performed By: #### C BC #### [facility] [address] [place] [id number] Nelidajose Bautista MCV (RBC) [Entitic vol] 96.2 fL Normal 81.0-99.[address] [facility] Comment on above: Performed By: #### C BC #### [facility] [address] [place], [place] [address] Nelida Lily MONO # 0.4 103/ul Normal 0.3-0.[address] [facility] Comment on above: Performed By: #### C BC #### [facility] [address] [place], [place] [address] Nelida Lily Monocytes/100 WBC (Bld) 7.1 % Normal 1.7-12.0 [facility] Comment on above: Performed By: #### C BC #### [facility] [address] [place], [place] [address] Nelida Lily NEUT # 2.7 103/ul Normal 1.4-6.5 [facility] Comment on above: Performed By: #### C BC #### [facility] [address] [place], [place] [address] Nelida Lily Neutrophils/100 WBC (Bld) 54.7 % Normal 43.0-75.[address] [facility] Comment on above: Performed By: #### C BC #### [facility] [address] [place], [place] [address] Nelida Lily Platelet mean volume (Bld) [Entitic vol] 9.8 fL Normal 9.5-13.[address] [facility] Comment on above: Performed By: #### C BC #### [facility] [address] [place], [place] [address] Nelida Lily PLT 320 103/ul Normal 150-[address] [facility] Comment on above: Performed By: #### C BC #### [facility] [address] [place], [place] [address] Nelida Bautista RBC 4.22 106/ul Normal 4.20-5.[address] [facility] Comment on above: Performed By: #### C BC #### [facility] [address] [place] [address] Nelida Bautista WBC 4.9 103/ul Normal 4.0-11.0 [facility] Comment on above: Performed By: #### C BC #### [facility] [address] [place] [address] STROKE HEAD WOon 02-24-20 [...] JANESSA SKINNER Date: 2021-02-23 13:52 Normal [facility] ER URINE PROFILEon 1 Bilirubin Ql (U) Negative Normal NEGATIVE [facility] [place] [facility] Comment on above: Performed By: #### E RUR #### [facility] [address] [place] [address] Nelida Bautista Clarity (U) CLEAR Normal CLEAR The [facility] Comment on above: Performed By: #### E RUR #### [facility] [address] [place] [address] Nelida Lily Color (U) LT. YELLOW Normal YELLOW The [facility] Comment on above: Performed By: #### E RUR #### [facility] [address] [place] [address] Nelida Lily ERUAHD A micrscopic examination will be performed if indicated. Normal The [facility] Comment on above: Performed By: #### E RUR #### [facility] [address] [place] [address] Nelida Lily Glucose Ql (U) Negative Normal NEGATIVE [facility] Comment on above: Performed By: #### E RUR #### [facility] [address] [place] [address] Nelida Lily Hemoglobin Ql (U) Negative Normal NEGATIVE [facility] Comment on above: Performed By: #### E RUR #### [facility] [address] [place] [address] Nelida Lily Ketones Ql (U) Negative Normal NEGATIVE [facility] Comment on above: Performed By: #### E RUR #### [facility] [address] [place] [address] Nelida Lily LEUKOCYTES Negative Normal NEGATIVE [facility] Comment on above: Performed By: #### E RUR #### [facility] [address] [place] [address] Nelida Lily Nitrite Ql (U) Negative Normal NEGATIVE [facility] Comment on above: Performed By: #### E RUR #### [facility] [address] [place] [address] Nelida Lily pH (U) 8.0 [pH] Normal 5-9 [facility] Comment on above: Performed By: #### E RUR #### [facility] [address] [place] [address] Nelida Lily SPEC GRAVITY 1.020 Normal 1.005-<=1.025 [facility] Comment on above: Performed By: #### E RUR #### [facility] [address] [place] [address] Nelida Lily UA PROTEIN Negative Normal NEGATIVE/ TRACE The [facility] Comment on above: Performed By: #### E RUR #### [facility] [address] [place] [address] Nelida Lily UR MICRO IND NOT INDICATED Normal [facility] Comment on above: Performed By: #### E RUR #### [facility] [address] [place], [place] [id number] Nelida Bautista Urobilinogen Qn (U) 0.2 {Jose Carlos'U}/dL Normal 0.2 - 1. 0 [facility] Comment on above: Performed By: #### E RUR #### [facility] [address] [place], [place] [id number] Nelida Bautista POINT OF CARE GLUCOSEon 01-27 Glucose [Mass/Vol] 95 mg/dL Normal 74-106 [facility] [place] Comment on above: Performed By: #### P OCGLUC #### [facility] [address] [place], [place] [id number] Nelida Bautista PREG HCG QUALon 02-23-2021 , QUAL Negative Normal NEGATIVE [facility] Comment on above: Performed By: #### P REG #### [facility] [address] [place] [address] Nelida Bautista PROF 14(COMP METB)on 021 Albumin [Mass/Vol] 3.6 g/dL Normal 3.5-5.0 [facility] [place] Comment on above: Performed By: #### T JOÃO LOCK, CMP #### [facility] [address] [place] [address] Nelida Bautista Albumin/Globulin [Mass ratio] 0.9 {ratio} Normal [facility] Comment on above: Performed By: #### T JOÃO LOCK, CMP #### [facility] [address] [place] [address] Nelida Bautista ALP [Catalytic activity/Vol] 103 U/L Normal 38-[address] [facility] Comment on above: Performed By: #### T JOÃO LOCK, CMP #### [facility] [address] [place], [place] [id number] Nelida Bautista ALT [Catalytic activity/Vol] 35 U/L Normal 9-[address] [facility] Comment on above: Performed By: #### T JOÃO LOCK, CMP #### [facility] [address] [place], [place] [id number] Nelida Lily Anion gap [Moles/Vol] 13.3 mmol/L Normal [facility] Comment on above: Performed By: #### T JOÃO LOCK, CMP #### [facility] [address] [place] [address] Nelida Lily AST [Catalytic activity/Vol] 28 U/L Normal 14-[address] [facility] Comment on above: Performed By: #### T JOÃO LOCK, CMP #### [facility] [address] [place] [address] Nelida Lily Bilirubin [Mass/Vol] 0.2 mg/dL Normal 0.2-1.[address] [facility] Comment on above: Performed By: #### T JOÃO LOCK, CMP #### [facility] [address] [place] [address] Nelida Lily Calcium [Mass/Vol] 9.0 mg/dL Normal 8.4-10.2 [facility] Comment on above: Performed By: #### T JOÃO LOCK, CMP #### [facility] [address] [place] [address] Nelida Lily Chloride [Moles/Vol] 108 mmol/L Critically high 98-[address] [facility] Comment on above: Performed By: #### T JOÃO LOCK, CMP #### [facility] [address] [place] [address] Nelida Lily CO2 [Moles/Vol] 25.8 mmol/L Normal 22.0-30.0 [facility] [place] [facility] Comment on above: Performed By: #### T JOÃO LOCK, CMP #### [facility] [address] [place] [address] Nelida Lily Creatinine [Mass/Vol] 1.00 mg/dL Normal 0.52-1.[address] [facility] Comment on above: Performed By: #### T JOÃO LOCK, CMP #### [facility] [address] [place] [address] Nelida Lily EGFR-AF BOTSWANAN >60 Normal >=60 [facility] [place] [facility] Comment on above: Performed By: #### T JOÃO LOCK, CMP #### [facility] [address] [address] Nelida Lily EGFR-NON AF BOTSWANAN >60 Normal >=[address] [facility] Comment on above: Performed By: #### T JOÃO LOCK, CMP #### [facility] [address] [address] Nelida Lily Globulin (S) [Mass/Vol] 4.2 g/dL Normal [facility] Comment on above: Performed By: #### T JOÃO LOCK, CMP #### [facility] [address] [address] Nelida Lily Glucose [Mass/Vol] 95 mg/dL Normal 74-106 [facility] Comment on above: Performed By: #### T JOÃO LOCK, CMP #### [facility] [address] [place] [address] Nelida Lily Potassium [Moles/Vol] 4.1 mmol/L Normal 3.4-5.[address] [facility] Comment on above: Performed By: #### T JOÃO LOCK, CMP #### [facility] [address] [place] [address] Nelida Lily Protein [Mass/Vol] 7.8 g/dL Normal 6.1-8.2 [facility] Comment on above: Performed By: #### T JOÃO LOCK, CMP #### [facility] [address] [place] [address] Nelida Lily Sodium [Moles/Vol] 143 mmol/L Normal 137-145 [facility] Comment on above: Performed By: #### T JOÃO LOCK, CMP #### [facility] [address] [place] [address] Nelida Lily Urea nitrogen [Mass/Vol] 10.0 mg/dL Normal 7.0-17.[address] [facility] Comment on above: Performed By: #### T JOÃO LOCK, CMP #### [facility] [address] [address] Nelida Illy Urea nitrogen/Creatinine [Mass ratio] 10.0 mg/mg Normal [facility] Comment on above: Performed By: #### T JOÃO LOCK, CMP #### [facility] [address] [place], [place] [address] Nelida Bautista TSHon 02-23-2021 TSH 1.157 uIU/mL Normal 0.470-4.680 [facility] Comment on above: Performed By: #### T HAYDE, JOÃO, CMP #### [facility] [address] [place], [place] [address] Nelida Lily TSH RANGE SEE BELOW Normal [facility] Comment on above: Result Comment: <0.3 4 UIU/ml HYPERTHYROID 0.34-5.60 UIU/ml EUTHYROID >5.60 UIU/ml HYPOTHYROID Performed By: #### T JOÃO LOCK, CMP #### [facility] [address] [place], [place] [address] Nelida Bautista XR CHEST 1 Von 02-23-2021 [...] JANESSA SKINNER Date: 2021-02-23 13:53 Normal [address] [facility] Encounters Encounter Date Encounter Type Care Provider Facility Start: 10-21-2023 End: 10-21-2023 ambulatory SHAWNA RICHTER Not Available Start: 09-23-2023 End: 09-23-2023 ambulatory MARYANN ZACKERY Not Available Start: 08-22-2023 End: 08-22-2023 ambulatory MARYANN ZACKERY Not Available Start: 12-22-2021 End: 12-22-2021 ambulatory JARVIS Hankins [facility] Start: 02-23-2021 End: 02-23-[address] DOCTOR GOODSON Facility: Payers Date Payer Category Payer Unknown [id number] 1985 Unknown [id number] [id number] 1985 Unknown [id number] [id number] [id number] 1987 Unknown [id number] [id number] [id number] 1987 Unknown [id number] 2.16.84 [id number] 1959 Unknown [id number] Summary Purpose Family History No Family History Records FoundNo Family History Records FoundNo Family History Records FoundNo Family History Records Found Advance Directives No Advanced Directives Records FoundNo Advanced Directives Records FoundNo Advanced Directives Records FoundNo Advanced Directives Records Found Additional Source Comments INFORMATION SOURCE (unrecogn ized section and content) DATE CREATED AUTHOR 02/28/2021 [facility] DATE CREATED AUTHOR AUTHOR'S ORGANIZ ATION 12/24/2021 [facility] DATE CREATED AUTHOR AUTHOR'S ORGANIZ ATION 01/01/2022 [facility] DATE CREATED AUTHOR AUTHOR'S ORGANIZ ATION 10/23/2023 [facility] EPIC FOR RECORDS [...] BE BASED ON THE PRIMARY CLINICAL RECORDS. [employer] [facility] provides no warranty or guarantee of the accuracy or completeness of information in this document.
[2023-11-12 00:07] LABS: AFP Value 93.5 ng/mL (.); Gest. Age on Collection Date 22.9 weeks (.); Gestat. Age Based On Ultrasound (.); Insulin Dep Diabetes No (.); Maternal Age At EDD 36.5 yr (.); OSBR Risk 1 IN 4664 (.); Results Report (.)
== END 2023-11-08 09:20 | disposition home or self-care (01) ==
LOC: LAB 09:20
PROVIDERS: Visit Provider Obstetrics & Gynecology
DX: Z34.92 Encounter for supervision of normal pregnancy, unspecified, second trimester (principal); Z36.1 Encounter for antenatal screening for raised alphafetoprotein level
CPT/HCPCS: 36415; 82105

== ENCOUNTER 2023-12-12 09:35 | Outpatient (OUT) | payer BC, SELFPAY ==
--- OUTSIDE RECORDS SUMMARY | 2023-12-12 09:47 | XMS_ITS | CCD ---
Author Organization [facility] Care Team Providers Care Medical Insurance Clerk Name Role Phone NAINAC, DR OLSON Primary Care Unavailable PAY, DR OLSEN Admitting Unavailable PAY, DR OLSEN Attending Unavailable ZIELENA, DR JANESSA Davila Consulting Unavailable PAY, DR OLSEN Consulting Unavailable JARVIS RODRIGUEZ Referring Unavailable JARVIS RODRIGUEZ Primary Care Unavailable PEDRO CAMPBELLHMANYMAYI Consulting Unavail able CADEN CERNA Attending Unavailable CADEN CERNA Admitting Unavailable DAVIN GAGE Consulting Unavailable MARYANN VIZCARRA Attending Unavailable SHAWNA RICHTER Attending Unavailable MARYANN VIZCARRA Attending Unavailable Problems Problem Classification Problem Date [...] Coding Summaryon 12-31-2021 Coding Summary HTMLBase 64 AfmnystuXFc5gNr+PGhl YWQ+ZA5XOMZuN42tqSDt aC2MT3bZKV9CSCYFWNWT QX0PYE7jlRJ2JEcpL5Mj biAv TpcgqTKuYE39OEm2QUY3 nUoaCIiejH6lnACvW6f7 AaFwJV65oI53DVjxFLFc AaF8TbDjgogydQUl B2djEpFbfHEoYla+PHRh YmxlIHdpZHRoPScxMDAl RbCuvKhfWB4hYp9tNPEu LWNvbGxhcHNlOiBj g6soAIQeOPejNC6bsEtw Z2LwpQS3NNMud4w1Zj51 dHI+PXYqCGK7vEgmPGjb v501EcSgv6knXFS2 jTVwWMtzPFE8I41qa8O4 PICuIOAzZIV4dIB5wX7w mYuvebsiY6RzlWZzLkW4 WRK1rVQmpK8wiThx garloX7wVho+U56EGZ5L IMUNRV8VYmr9F1LfTwpn dHI+YB13BSKuNM22fLLz mLYoe1xaxDr7EfKe DYDcJVS9zPyvFKtuh4Rm OGCxM22jbGTpd9H6JZPr eFfwcTXiEqFddUX5lD9a GUiltvbhd8lhqmap Qzsyg1yhcz46dJ57I29j KQnaYCCbDEY4EDHhZLRd fEqduf7jjA5qHk0+IDxj d3lmc6qlxHu7RkIr BCQydxBnfDhkYXQ2u4Fm Yg99D8JsrKlic1OcMdu8 jy42aDCvb1S4eDZ5BHyn BUPziJ6tFSpmHoY5 PDZrGyGgsB89sLCgGCuc Ii7shOuuaWakOH6jFXZs qxssJOXtkD9vYYWxsQCj dXiwQZ6lIICzuwdg v062WyYcQHW6UIGbbPGk Y7OohH5sTnWnTTLtYBLu E4JbrFDrMIihK666LZiv IoO7LCWuzjDpF2Ae KPFgeBywDuS9m0G5Gq2P e8BqwefjZYY8PGfrXJT4 JaN8CbInAwU8B5AiRhc3 TPLuqUxsXE9iA2Gx TLIswlhucqkayGM9HXOg FVJzcZ13yNStHUxtMg0v g4A9b271NNTcBYEeiS85 Ls1maImzFCOhaNRX fG5xbwabb8vwbdjbXiYd QWRjICb6ASi5BAQffHwk DwWlAEF7DxB4HVI7kSTr eF1ewAihewwctA6u Oyc+Q83kdF2nGAV3BOR3 ohxpVCXgndNaME73LQ58 Y2RmTxsjtSUmzYE+PGRp bsSrsJpxBR2uUoGy k9clv5EvTUxfM2DhSRXg RAtyZcr6HSUjNTF4aKG8 kE0xXDIkKLwob4J1xXM1 S5YwayLsqw1gx6ql ZJCcJByhB14upRIkh3W2 EYZjjFD2BGQtsNziLiEs lW32Zgi+YHFnoWubm2Uz Qruaa0wky7qhyUq2 IjMwJSIgdmFsaWduPSJ0 q2MhHs63L26fBUvmGRLw KUBtKFFfOFTrcXbntk9x cP5bXl3+PGNvbCB3 dWP0jF7hYFQkZxC5SVbd R123UfWepAOyAvbko8lg r2snaKw3BuPyQHDhucHv pMryHBW9p3ZcJx94 Q41vCCxaOJLaNUSvVXUb YOFslBigaw0iqM8aIl1+ QN5cn2laeb98gM52aUF+ ODRjZKY3oUszGBkn NYObfU3fNJmkTfI1DVUk CbOuhE86qHYkGUyuSz8t mRytcMnrXQ0ySFBnehoa w474GwLjq7ppGGNp dJYlHBtiDWZ6C95lz1G7 FJUdTKTmJFP0dBR5eF4z bGlnbjogbGVmdDsgdmVy hOktIXgxLRkjF202 IHRvcDsnPlBhdGllbnQg CnMzIJa2H4BnGgf4UAEg cJxvJN7xiWPhOWeyOh9j eHdhuVppJE6tYTQz qyfio678PkPxl6tfJLSo jLAfKWowDQO4Y24jq6Z7 EXKoOXCoDAE0iCQ9zV5b bGlnbjogbGVmdDsg mmNwaDkiBSnjBWufS071 IHRvcDsnPkJpcnRoIERh rGI6PR23BQ77nSZib7H8 bSX2E1HbBKEtbitx rcboxRY9UYApYIDahY32 Ce8xoVoiQb8cWLMaSQG9 VTPfuTEzF4ArhB3uBnJh VKPpHBFmW6TmbWLv RUbcW014CNfoOfQ3QFKj mcSmG1EbWAGxiLjjEqW4 e9O3Mf8VR2E7UX47FT52 gRWhp9G6aFW2E3Ek EXIanpmawjbgaXJ9AQBm WRZsvO99Jb6ycEhxWl9q HBVpPMZ8RPVbzCJlF8Nh rD6eAfBwRDKdNNEr W7XvkDNcMQbgU979ISvz YeG0TPNlqeIhI8DfBDKy oPvePiB8o6B7My2KVDq4 HL35AF07jIOrf9W3 sUK2A8OvFEMocmetjayv vNL4ECDjZIHkeS29Du5i nTlcNl2jFNKsTHE4MSYz lJRfD1JsfC0dFnBj XZPiXAChU3DerKLaLWse C524MMgtPqY4TFNwntHw M1ZfBLPpnZanZvS2x5I1 Yp8WIDOmNH49DEM1 cFB7PP40UX95J7DdYbmm dGFibGU+PHRhYmxlIHdp ZHRoPScxMDAlJyBzdHls WM3dJg9zPRElJGRt pElsnJYfHbRmq2beGPVt DUrhBK4nlNhbR0QvoGX5 LTIzz1u5Hh01U42dF3Qt dXA+GLPqhZX7pAX5 xU6vMyIgRzB5KPrkJ022 PuOoiFNoPbfng3ake3iz iBf4ZbU3OKHemxWnkSwe XYX7b8FpOp55R37z IHdpZHRoPSIxNSUiIHZh xFsmfc1bnR6bVe1+PGNv gHT6mIP3aJ0vKeOnXkN4 PEcqE200BuRiuCSw Dtdyx7rwe1yyuKz7QiOq EJUfdoHfyPfgYTG8k4Gt Bi19U1UetRsyb9AqQrm2 dn36uHTen1Y5kCX2 S9ZeZXSjevhtrNWxyToa HV5sODOvloqvFPNxgJ2l GLPqT7r5FcFrZbL7LLtp P0BhujS0WTAhnLLc RIhxCRL9A46tj1Y0GCBt OTIkHOO1wII1gP0fyDxh bjogbGVmdDsgdmVydGlj LUgvFDyxC660QZRy lZjqYEEraS4kTXEvxNOb cTgiKH8bEGSftdmeAoeS AQCBDCKCUDWCXiGEGV05 RT87wQUon9R4wRD6 W8KqPZGgbniynmkemLC1 QKGuUZCndS07hIHyXSaf Jf0xa6C5m051GCViZYRs fM28Ah6eoAgwVIOs sDGWoL6gqhiwn6qbwrgg GbIrTNAfHOp0FIn7BNJs wFerNtYbIYA3JgS5TBN2 oYRvoM3rpEecvgbo oW4cMcy+MDEvMDgvMTk4 ODwvdGQ+KRCdNZW0nQfr AVglKWFaqU7pZAPfY3m6 WdNsIsH5SYzqR6Bs GMKqxmcaMt45wZ6sIdYm VaC3RPdyN3HhwaL3RWUm oTBrQIfcDIG8J28yd9T8 RFCpAACpZHV0hYX9 iF1feJnozbqscMTqjVds poSozYzbCAszXYxtZ652 UUNfcTiuUfK1DJmbSPQk HW35ZT40kQMiw9C5 kJF1O4ZeTFZbywhxhjjr nKJ5UCZlLOFtsV15xCIh VEctPg5zx0J0x977VIZl ADTxlD14Jf2dzNqo YEBwkROHkN2xodbwv4hc qqjxJmDbOKJwGYi7WUv2 LPOnyPsyEyAjPMI0PoQ3 POI3gTMeyA5yuSof bygwgV6uVls+RkVNQUxF QV56EL68dTZuy0E4vFG3 L4SeHXSihcxrtyqqcJV7 UZNdXQIjdM92xWWy YOuhFy5xo8M4w243SHQb XEAqrL51At5jlBouPXNr bEDFlX8ogngsh7mqnyxh TqWhAUWmQDf1CKi7 OEBglIooAsLoNOO1SwR0 AMO5pWUpoX9mfKxrrdkk yZ0zOdo+F2L2Q9SoEuvc dHI+PJ28HMKqPA40 oIVsxPQqs9mpoGg9XjCq UVHiBSK3wOqzEYzhz5Rc CDZqH84rrRWik3O0LDXl bGxhcHNlOyBlbXB0 vG5zHNdppnike7afodsc Gjafs8cxzs36rJ64K03f IHdpZHRoPSIzMCUiIHZh bNspsd3mcV7bCg4+ DMDxlOU1jWA1rV0tLaWr YfQ4CPbfB420IaIkqNIz Nhwod6lvq8gaoQv5OjQl JSIgdmFsaWduPSJ0 z3SyBq79Q43oCIeiWWXz QAOsRAGhJZTvgVuvbp8z nM3rTr6+CO8rk3kugx76 oU86dIO+PHRkIHN0 bSfyVWksKRFmlD8iTOql UiN3OIQuOyAqgT78rWSj PNoyIl2ymSepiXtcWL2y OWDcdwyhi336QwCu e0exHVXvjUXePKloYNY4 B85ra4K2DCWuJEVhBUT8 iVH6uF3aaYvkxtgoaULa dDsgdmVydGljYWwt LAyzN087UVXgaUnlXaIj mTGgZ5txrlURGP7bJthe dGQ+ZWXwUEO6wAtvIXmd KPXhrA9vXKMqG4o0 VkRwIrV8HJsdK6NqqcW8 TSGqvVKeJUPrfBEKfL4v dsfuo6eolijqIdSxPQDj RWb6QXy1KTPuqXed RfIzLMD3HuP5VMP2nQXd kU5crAhngqnrkX0iBfe+ RklOOjwvdGQ+PHRkIHN0 pReeTPbhEKWzwK0g BGZpC9d1TpFhApC9FElw H1XbowJ7KKGwwZEtIQOr vEFSmZ1dvzkxs5dfobwj KcRsTHEtBSx0BGn1 OHReeMmjJwHuQJX3DjL2 WPK5xAGaaE9rhEavnkvc aE2mSgn+TVJOOjwvdGQ+ UGJxDNF1qIodTVri JQFsvY5yIMWwP2h2NoAu ZnM7DSxyA3NlnnP8YKBy iZVsTGKbyUIAuS7hmhuk s1upgsvlXiLlXCQi MXh8FJv3XRKmbGioQiKr IEJ9SeR5IHX4oUIlvU1t gGjwifwgxC0aHqg+UGF5 YAI8BR40ZJ32J8Jh PjwvdGFibGU+PHRhYmxl IHdpZHRoPScxMDAlJyBz iLcpJD6xAa0wQQXzQGRv xOjwqGXuWgSjj4wr YXB (more content not included)... [facility] Coding Summary HTMLBase 64 RqrmzyfzSIb4oOx+PGhl YWQ+YH5LUQGqV13xhHJn zD1RE1fRDL3KUBOBNENX FW3JGX4uzEZ5PFqoF5Uf biAv BpqniQGiWS16AAu7RVX7 rReaTAhkvI6nmBIaD0v1 RcMtUT22pF36PZpdNHEm YkB2ObOmibnhmKZg T4odJqTulVKcNod+PHRh YmxlIHdpZHRoPScxMDAl PjQroLkgWB2sGg8mAWIn LWNvbGxhcHNlOiBj i0caQFKbRMeaCB1caHbe J1DdgPU5TPMfa9b0Vr57 dHI+SHPrNWK8oZwmKRoj p494GvRdo9iiPWH5 gBWvYLyzYYP0X76bi6R2 TFDlIKNvFZG0hJR9nS4a iMlzopgdR7IfmTMfQbW3 FBS2xQEruO5toIsx vhfuyU6pEqt+F27KSI2D GNKOID5AIyh6R7WiLlfp dHI+LN94FHCqYT18fQDn xHQde5leqRd1BtWn OEVeYBS5sWlaEIzyz8Qw OGNlR12ybDFhb2Z9SWKg lIvzhFHmZhXcdAZ4cV5s QGwoqxuuu1dztkry Kmkgj3wefq57yS17P99n XQvqAICaUXG3FTSfVREx eAqgat7tqX7zGo6+IDxj i2olv9dhjZp0ViMm XMTeaeFonNrgFWJ2k3Hm Bp71E4IvfEcrj9HhNtv4 kq68xWHps7O8tTP5GHva KAEekY2dVPcfTzQ4 BBCjRqZcqY18aYJjZSmw Fp6vsSwlhDkxMU3tERYx eriqSBPkeE1oTOZuaYRc sGxuAT3uLQYbqzcc x243BlYgHZZ9TPAwpTFa K5IedL0tTsWaYYXqPVFq M8OvvCMaDOedU002KGoo IlE0QRJmwlDcF6Uh DHGbkKjlFzT9z3E7Bm9X c5DtavuzNGX7ROdpRHO2 NbP6TtYcQmI4Z6BpQro2 UFSugGebFS0pL6Yb MGBgzreddzequMG0ZDBz JIFcrR36iKWoRTgfUu5x z4F6w898XADgOJVrvC86 Kl9ixJgaOVSrqPOX kZ1rbnzrk5usbncdJnAj SJMvIMx5KZh0NILrpUll QiCyNAU6LyW0NLM3cJXy aU1zmAcjqqiokU7q Oyc+C43teO9xKCW3SLN4 jupiBDWzwgCgFJ48KK18 T5UgFtbqgLVccPL+PGRp lwXxaShzMW5tTeCw j1lhh3BhJMrjJ8BxGUTc IGshVto8DLUnENG9pVG8 mP1kUILkTVgoc4W4fQV2 N9MrbsVaqd7mg7qn JMEnOYtgJ86baYRjj0G9 AAQenJK6TVBfgWbqVbLx jE26Jov+PHJseQvjc9Ak Potiy1ree3apyWw8 IjMwJSIgdmFsaWduPSJ0 l7EcLp47P15fFHmoKDHe CTIzWDQnGMWdeOhzrq5s hZ6zGg1+PGNvbCB3 cCJ5jE1uMXJrGnR3WKwe Q935UpKneFSmWlqrn6lf t4steGa3VhRmWRUpkoYp rCalGIQ7e3PqSd73 S82sYGnxEJOyUKFpDSMd EDHtwZxtcp8ilS6hZy9+ CJ2go3fzov78oU41bPB+ QMHqHWE8hAdjQZbt VCJviX7zQAneOfQ5LHIa DcDeqF09iTPdHUsdAl1p yYpllRtjIR4uHXMolkrq t825MmVzd2ciQBMr eELqHYrfNYU5Q03cd3W7 NTGjEWVkRBS6gAE4eT1z bGlnbjogbGVmdDsgdmVy hBdzZRmqDAtgG182 IHRvcDsnPlBhdGllbnQg LxJzWXv1X2EhBok0VMCx mTgzOV5luUVzGUfvJd7z sUdtvXefDK5bQRBg zwsea810UhSco4kfDSRt qSLmLLqkOTJ9Q68ke5B5 YKAeTQJjWDD5bKN7rH2g bGlnbjogbGVmdDsg jjEkgNgjSNugFKedA455 IHRvcDsnPkJpcnRoIERh fZQ8WC56LL20lBFcx1S7 jLV5O4YsTRWubwav cinpqEU2HJApDQZqkN32 Uf6pwTtzZm3mVJNsZEB9 XFShpHVqO9HnyJ4qXaJe VHKpMUVeZ5EkoHFa TCfvE608WLyaEcG5YJVk mtEoX1FxWYAelEjiYxT1 k6J7Jo4CX1E9YR63AM91 hLWhs6Y4rNC1K9Ev VFSpqitfrttmpCX2YOVb DIVvjE65Ge7flSbgKe4c UMZzAMI7IPVjsERkZ6Wz zE6mFjZfPZLhHFAa I2WotGMsVDdmM319JVmr HjB9ROFnacCcQ3JlQGFe cLjtFwC6a1E3Af1MTTi5 JP15HG36lICeq1L2 tCT1C7UmKXFuttqmrvfm kZM4JWOqIWYqxY19Gt2o mAccSe1jPYVrTGB6ACIq xELdE3DqbQ7vEiIs HROoUYCoF5FqyQXqPVjp Q152IOiuEmM6LLTldkMc R8ZyKPWgfIwkDcP1j8M3 Pd8YKOBqOJ33GRH7 mVU1MH38BK35N3AtHzlr dGFibGU+PHRhYmxlIHdp ZHRoPScxMDAlJyBzdHls KC0hKe0iWERnQGAz lGwlzVEgMxYgd4gxOSLa DTzzNM7fuPyaD4DgiJW0 ZEGsx1s1Aq14F10uH8Oa dXA+SNPiqQP9pVL8 tO8vMwWfBqI5HBlfF567 VqSnbYFgHrwfs3mmt4hl cBk2DsE2UIPpagYvjPzo KYZ0b7ZgDs96U59n IHdpZHRoPSIxNSUiIHZh qFgekk9wvT5fMg9+PGNv bAY2eEZ4mO4jOxOzZxY7 TDmvD624GqPeeHHj Joevu3nzf8nhkTe2YlCr AXTmkyWmsHdrXFN7y2Et Gz44M0FxdGjov2GaWwe4 dq92rQDgb0P4lFJ8 E9YcNPNjwyzibXTbpMfv ES7bDYOlptcrLCHteX6f XGXlG4m9ChQcFcY7SCxa E4JfrqZ4BIHbkQFh GKqiGHW5B52ht1N3LLOf TDDsOEP5uSZ0iZ3bbYsl bjogbGVmdDsgdmVydGlj PIvaYRuuS152DSTb cAnvBTGnvB6qERQqgVBr jClcDN4rMPOdthskIwdY NAZFCCMPDCTZGmGHPJ91 CG48tGYtz2P0oEI5 T5VuNCFcvfjqhkabgLW0 DDOlSJVigZ57cWPzWDmx Xd8pk3F3b945WKFqFBVi hD59Rp5jeWtiXOTo gVNDyJ3qwfczh5optxei HmCgCGQsVBg6ICp2RFTv lMxqVnPhGDB5UsV0VJF6 xSVwyW1myRqreezu jU0wHbl+MDEvMDgvMTk4 ODwvdGQ+XPHmKBT5fWmf QZnhUCEpuY8qKEBzG8y6 HhKhReD3ETceW3Iy YYNdkotsUl15cG6wIcSl TvS9AVptI9QbwuM0MPGm qQDqHQwuVUN7P10rn1G8 KRIgBLMsQVV2wCK9 iX0zqQgnisonsRJxyDtt twJopLygLLtlDOoiA208 GLYloQpfVwC8HRtxRAFe RB59HF88eLMfl1I7 fVE1P5RiQMYnvxzqccgo yPR6BZRqVQDqjH81rMZu OIsqId6dj2G2k000EVOx YSVnhX83He0ycVmt FLYtvLGLaI1nssqul0ul ikwtMhRlKELcBKs3SMg9 CMJseAcuJcClUCC3SqB0 VTB6iZPvxL6eeStb cnwnbR2eQhr+RkVNQUxF ZV30YH78mMLrv4V6qWM4 Q6CeHVBfuadiasuhwHU4 GVSiQWCzsV42kVYk GJytQz1ng1M3u681IAYk RGFvbW20Hz0keWafUAPb qASOlS2tgnchu6jivoxs ZqFoVGGcLIm6NQj9 KRLkwOqmNwDfHUV5KzC4 MYD6kMAlwO6bmDtzzvik wC7wShb+WH3oymzxupT9 CP12LQ42N9TuUjbr dGFibGU+PHRhYmxlIHdp ZHRoPScxMDAlJyBzdHls VN2wPd6oHYQgCVPwiTxc aJYjYxTlx0ysIGEa KDcbVN1jsYukI3HtcSW4 BSQcc1y1Wd63E59qP7Hj dXA+RZIuoFU5mLK1vJ8i JkTgBeG1XFmfC635 EoXhgDVqYmccj8rol7lo hNu4AfUkEJRbzePknCwp LKB8j0XvEm83K25gTKcc ZHRoPSIyMCUiIHZh lWdsjt2pvY3qKx1+PGNv jRW9bIN4kX7hKaHfUtQ1 NZiaS811RtQmfTNwXstu V85yY8EagXG+PHRy Dog7KAQvfFvkLV5zoYYt TScuUu5yIOF1QjPfStXf DOsfK2VwXONtoggqnmdy dDE4SFSxNJIsgH48 Zl3ufLogCn0rEUBeHPT3 YIVmrFLvB3EaiR1bFuIn SMFiYWIzW1ThyGVbDHnz Q063XQeqRxH4FUNx nuKiM6IkKGZpfHikZmM8 v0F4It1EjVliyFYpTN3k WlYtCQk1A9CqWxe6IQNe wZheUW1xmGDcJBaz Av4vySmnxRduHB5rBZDa bmcyt789TrDai2szCKDd fWNoUXeqTZS1E16ce2M1 WACwOJYlQJE9xZT9 hL8lwFqplggdeBHycAga iwMlpIidCOyfVLlqA525 ITVnuVuaLeVQFwu1J6Mk Jbk1RRLmpJkeGM2k rREdGKdyFt0kbJwweErh PZ5qPYOncrfxz652AnMu x8oiMYEmxIYvMTvbROP5 B74hg0W1QHDwHOMt NXV1pRK6nS5fuUjhizyw bGVmdDsgdmVydGljYWwt XMlfC597HLDsuXszMp1G Feq0Z3WbTon3BFNc uXnwLP2bgAAxTGxwAo6v nDuxaBmfRQ1vHBLyphpo w709JyUxj5kvNHDqbZTm WKeuHQB5O03hc1P3 HZUvYEBaPEN7oMT1bJ6n bGlnbjogbGVmdDsgdmVy fIctUScuVQnpD627HFIj cDsnPlBheWVyOjwv dGQ+SD70xf62X0UdVwxf Jao0HERzEWL8wQU7eG6o LBEzCGkxy5F3rEJ9Y0Qg pxZpcs0oe4ltPTHp ZTo (more content not included)... [facility] Ambulance Noteon 12-26-2021 Ambulance Note [id number] [id number] [facility] ED Clinical Summaryon 2021 ED Clinical Summary [facility] - Emergency Department [address] [place], [place] [id number] ED Clinical Summary PERSON INFORMATION Name: LOCO HICKS Age: 36 Years Sex: FEMALE : 1985 MRN: Acct#: Visit Reason: Dizziness; FACIAL NUMBNESS, DIZZINESS Arrival: 12/21/2021 18:23:41 Discharge: 12/22/2021 00:02:00 LOS: 000 05:39 Check In: 12/21/2021 18:23:41 Checkout:12/22/2021 00:02:00 Address: [address] [place] [id number] PCP: Provider, None PROVIDER INFORMATION Provider Role Assigned Unassigned Alvin Bryan ED Provider 12/21/2021 18:26:52 12/21/2021 18:30:20 Sanjuana Ramirez HOSPITAL ACCOUNT MANAGER Nurse 12/21/2021 18:29:17 12/21/2021 23:14:12 MARIAJOSE EDEN ED PA 12/21/2021 18:30:25 Kerline Cartagena HOSPITAL ACCOUNT MANAGER Nurse 12/21/2021 21:46:32 Kerline Merrill RN ED [...] - pharynx pink and moist. NECK: -Supple ([id number]): non-tender. CARD: -Rate and rhythm: Regular -Edema: No -Calf pain: No RESP: -Respiratory effort and chest excursion with respirations: Normal -Breath sounds equal bilaterally: Clear -Wheezes: No -Rales: No BACK: -Signs of pain with movement: No ABD: -Distended: No (more content not included)... Normal [facility] ED Patient Education Noteon 12-22-2021 ED Patient Education Note Education Materials [facility] ED Patient Summaryon 022 ED Patient Summary [facility] - Emergency Department [address] [place] [address] PATIENT DISCHARGE INSTRUCTIONS Patient Information Name: LOCO HICKS Age: 36 Years Date of : 1985 Reason For Visit: Dizziness; FACIAL NUMBNESS, DIZZINESS Arrival Time: 12/21/2021 18:23:41 Primary Care Physician: Provider, None Attending Physician: Alvin Bryan Comment: Visit Diagnosis: Diagnoses This Visit Dizziness ([id number]) Paresthesias (R20.2) Visual disturbance (H53.9) Prescription Information: If you have been given a prescription for narcotics, seek immediate medical attention if you have any difficulty breathing or any sudden status changes such as confusion and sleepiness. If you or anyone you know is experiencing suicidal thoughts, mental health, alcohol and/or drug addiction problems; contact the [facility] 17/02 Crisis Hotline -Text 4HOPE to [phone]. If you received any narcotics, sedation, or [...] and treatment you received today in the [facility] Emergency Department were for an urgent problem and are not intended as complete care. It is important for you to follow up with a doctor, nurse practitioner, or physician?s medical assistant cardiology for ongoing care. If your symptoms become [...] so we can reach you if necessary. [facility] Emergency Department has provided you with a complete list of medications post discharge. Please inform your help desk assistant/provider of your visit and for further instruction [...] for Disease Control and Prevention March 2014 [facility] MRI BRAIN W WO CONTRASTon MRI [...] Ean Cedillo MD 12/22/21 Final result Normal [facility] MRI CERVICAL SPINE W WO CONT [facility] 12-22-2021 MRI CERVICAL SPINE W WO CONTRAST [...] Ean Cedillo MD 12/22/21 Final result Normal [facility] [id number] 12-22-2021 SARS-CoV-2 (COVID-19) RNA SHELBI+probe Ql (Unsp spec) Not detected Normal NOTDET [facility] Comment on above: Result Comment: Rapid NAAT: [...] management decisions. Fact sheet for Healthcare Providers: https://www.fda.gov/media/672886/download Fact sheet for Patients: https://www.fda.gov/media/765256/download Methodology: Isothermal Nucleic Acid Amplification Performed By: #### C OVRB #### [place] [address] Motor Vehicle Examiner: Campbell Simmons MD SARS-CoV-2 (COVID-19) PCRon 12-22-2021 Employed in healthcare? No Invalid Interpretation Code [facility] Comment on above: Performed By: #### 6 [id number] ####[facility] (DEFAULT)[address] [place] [address] Group care resident? No Invalid Interpretation Code [facility] Comment on above: Performed By: #### 6 [id number] ####[facility] (DEFAULT)[address] [place] [address] In ICU? No Invalid Interpretation Code [facility] Comment on above: Performed By: #### 6 [id number] ####[facility] (DEFAULT)[address] [place] [address] status? Not Invalid Interpretation Code [facility] Comment on above: Performed By: #### 6 [id number] ####[facility] (DEFAULT)[address] [place] [address] SARS-CoV-2 (COVID-19) RNA SHELBI+probe Ql (Unsp spec) Not detected Normal Not Detected [facility] Comment on above: Result Comment: Perf ormed by PCR methodology. Performed By: #### 6 [id number] ####[facility] (DEFAULT)[address] [place] [address] SARS-CoV-2 (COVID-19) RNA SHELBI+probe Ql (Unsp spec) No Invalid Interpretation Code [facility] Comment on above: Performed By: #### 6 [id number] ####[facility] (DEFAULT)[address] [place] [address] Symptomatic as defined by CDC? No Invalid Interpretation Code [facility] Comment on above: Performed By: #### 6 [id number] ####[facility] (DEFAULT)[address] [place] [address] Transfer Noteon 12-22-2021 Transfer Note medication list sent with patient, Complete ED chart sent with patient. CD and med list sent w. patient to Hospital [Electronically Signed on: 12/22/2021 00:05 EDT] Nadya Garcia [Verified on: 12/22/2021 00:05 EDT] Nadya Garcia [facility] Transfer Note [id number] #1.00OTGTIFF [facility] Transfer Note [id number]. [id number] #1.00OTGTIFF Normal [facility] Transfer Note transport called, [facility] transport to [facility]. Willie ar will call when back in area from [facility] Trip. [Electronically Signed on: 12/21/2021 22:14 EDT] Nadya Garcia [Verified on: 12/21/2021 22:14 EDT] Nadya Garcia Normal [facility] .Auto Diff 1on 12-21-2021 Auto [place] % 7 % Normal 1-12 [facility] Comment on above: Performed By: #### 7 197775, [id number], 2739429, 19611307, 5058092, 3781122, 6010047076, 5976369, [id number] ####[facility] (DEFAULT)[address] [place] [address] Baso Abs# 0.0 x10 Normal 0.0-0.2 [facility] Comment on above: Performed By: #### 7 684500, [id number], 5349803, 45017758, 2070169, 3444844, 9221204130, 5600063, [id number] ####[facility] (DEFAULT)[address] [place] [address] Basophils/100 WBC (Bld) 0.4 % Normal 0.2-2.0 [facility] Comment on above: Performed By: #### 7 549197, [id number], 4398674, 67130527, 3547442, 0596262, 4952056957, 7559525, 1625544765 ####[facility] (DEFAULT)[address] [place] [address] Eos Abs# 0.1 x10 Normal 0.0-0.4 [facility] Comment on above: Performed By: #### 7 353546, 7319858434, 4621959, 85948255, 3818373, 0508898, 1027537732, 7818796, 5715935402 ####[facility] (DEFAULT)[address] [place] [address] Eosinophils/100 WBC (Bld) 0.7 % Low 0.9-4.0 [facility] Comment on above: Performed By: #### 7 902853, [id number], 7678633, 20138739, 3865582, 0693149, 6407875838, 3087031, [id number] ####[facility] (DEFAULT)[address] [place] [address] Lymph Abs# 3.2 x10 High 1.3-2.9 [facility] Comment on above: Performed By: #### 7 983345, 9554340618, 6067389, 12875307, 8128272, 3562392, 9197576896, 9772819, 1214839255 ####[facility] (DEFAULT)[address] [place] [address] Lymphocytes/100 WBC (Bld) 40 % Normal 14-48 [facility] Comment on above: Performed By: #### 7 810148, 0731613970, 5071881, 84822359, 6701336, 2323176, 5140394521, 3915434, 5449787678 ####[facility] (DEFAULT)[address] [place] [address] [place] Abs# 0.6 x10 Normal 0.0-0.8 [facility] Comment on above: Performed By: #### 7 473449, 2151938285, 7564590, 68966673, 4495808, 4333616, 3961347878, 2083825, 3977427411 ####[facility] (DEFAULT)[address] [place] [address] Neut Abs# 4.3 x10 Normal 1.5-9.2 [facility] Comment on above: Performed By: #### 7 931226, 3653168419, 8947175, 95893417, 9786869, 8019288, 6977533609, 3516759, 3213036880 ####[facility] (DEFAULT)[address] [place] [address] Neutrophils/100 WBC (Bld) 53 % Normal 44-88 [facility] Comment on above: Performed By: #### 7 716018, 6112973446, 9902466, 19028633, 0491749, 1298885, 3161375956, 0660897, 7748586357 ####[facility] (DEFAULT)[address] [place] [address] CBC w/ Auto Diffon 2 Erythrocyte distribution width (RBC) [Ratio] 14.3 % Normal 11.5-15.0 [facility] Comment on above: Performed By: #### 7 923011, 4087634875, 5402384, 70643797, 6570860, 5886602, 4590938397, 4436891, 8175835627 ####[facility] (DEFAULT)[address] [place] [address] Hematocrit (Bld) [Volume fraction] 42.3 % High 33.7-40.4 [facility] Comment on above: Performed By: #### 7 074453, 6776473240, 7778488, 97792831, 1088251, 0456811, 6599002464, 3604932, 7630026238 ####[facility] (DEFAULT)[address] [place] [address] Hemoglobin (Bld) [Mass/Vol] 13.7 g/dL Normal 11.3-15.9 [facility] Comment on above: Performed By: #### 7 965959, 4095604000, 8673749, 72104450, 9206635, 6581771, 8409282530, 2765586, 2480853127 ####[facility] (DEFAULT)[address] [place] [address] Instr WBC 8.2 x10 Invalid Interpretation Code [facility] Comment on above: Performed By: #### 7 805357, 0155195045, 0223403, 15850574, 1522754, 7750446, 0137323816, 9623798, 2817881311 ####[facility] (DEFAULT)[address] [place] [address] Man Diff? Auto Normal [facility] Comment on above: Performed By: #### 7 901396, 4014926169, 8349655, 46314755, 9881618, 2863386, 5147148199, 0091479, 7527537357 ####[facility] (DEFAULT)[address] [place] [address] MCH (RBC) [Entitic mass] 31 pg Normal 24-34 [facility] Comment on above: Performed By: #### 7 096501, 9763569804, 3467628, 57952125, 7584672, 4315633, 6313757097, 8154226, 6005359648 ####[facility] (DEFAULT)[address] [place] [address] MCHC (RBC) [Mass/Vol] 32 g/dL Normal 26-37 [facility] Comment on above: Performed By: #### 7 829414, 8486842661, 9311772, 26865012, 9052495, 6680077, 3880841375, 1037026, 2818410193 ####[facility] (DEFAULT)[address] [place] [address] MCV (RBC) [Entitic vol] 96 fL Normal 81-100 [facility] Comment on above: Performed By: #### 7 229655, 8880314659, 1798577, 61629238, 5640037, 9987828, 8392753240, 5464316, 3687890523 ####[facility] (DEFAULT)[address] [place] [address] Platelet 363 x10 Normal 138-427 [facility] Comment on above: Performed By: #### 7 897976, 2733804014, 3821696, 50785615, 8756863, 6714873, 4644418105, 3285016, 1348467129 ####[facility] (DEFAULT)[address] [place] [address] Platelet mean volume (Bld) [Entitic vol] 10.2 fL Normal 6.3-10.2 [facility] Comment on above: Performed By: #### 7 797208, 0289637645, 6463857, 77700905, 2701749, 6458629, 8572381047, 8584352, 2267108140 ####[facility] (DEFAULT)[address] [place] [address] RBC 4.42 x10 Normal 3.70-5.30 [facility] Comment on above: Performed By: #### 7 383808, 4711824985, 8613212, 33844870, 8390963, 7731423, 5470567231, 1070810, 4245709872 ####[facility] (DEFAULT)[address] [place] [address] WBC 8.2 x10 Normal 3.5-10.5 [facility] Comment on above: Performed By: #### 7 353687, 0825281701, 8118225, 70466447, 6304231, 2386350, 7035315315, 8276102, 1660651635 ####[facility] (DEFAULT)[address] [place] [address] Standardon 12-21-2021 eGFR Non AA 57 mL/min/1.73m2 Invalid Interpretation Code [facility] Comment on above: Performed By: #### 7 752344, 3720090543, 4092281, 64350610, 2634062, 7410026, 9873311431, 7463974, [id number] ####[facility] (DEFAULT)[address] [place] [address] eGFR AA >60 Invalid Interpretation Code [facility] Comment on above: Result Comment: Purifying Plant Operator nathalia Kidney disease could be indicated at eGFRs of less than 60 ml/min/1.73m2. Kidney Failure is indicated at less than 15 ml/min/1.73m2 Performed By: #### 7 977967, [id number], 8044161, 24041950, 6642706, 4757451, 9416497543, 1090180, 1069663393 ####[facility] (DEFAULT)[address] [place] [address] Albumin [Mass/Vol] 4.7 g/dL Normal 3.5-5.0 [facility] Comment on above: Performed By: #### 7 518538, [id number], 3823151, 28357857, 9941018, 3475708, 0845638479, 2592562, 4614142305 ####[facility] (DEFAULT)[address] [place] [address] 28714 Albumin/Globulin [Mass ratio] 1.1 {ratio} Low 1.4-2.6 [facility] Comment on above: Performed By: #### 7 833583, [id number], 9834154, 96777066, 2238854, 0989308, 7596046208, 5098897, 1423353008 ####[facility] (DEFAULT)[address] [place] [address] 11101 Alk Phos 99 IU/L High 32-91 [facility] Comment on above: Performed By: #### 7 826820, 6653132975, 6368322, 92617504, 6794501, 9958626, 9038269745, 7531632, 3181292280 ####[facility] (DEFAULT)[address] [place] [address] 97419 ALT [Catalytic activity/Vol] 32.0 U/L Normal 14.0-54.0 [facility] Comment on above: Performed By: #### 7 458298, 9557040650, 5715500, 78894567, 1082051, 6331203, 6716541687, 1775371, 5796953941 ####[facility] (DEFAULT)[address] [place] [address] 34237 Anion gap [Moles/Vol] 23.0 mmol/L High 5.0-19.0 [facility] Comment on above: Performed By: #### 7 968555, 9840319604, 1460594, 89973265, 3287889, 6287671, 1454051619, 7250042, 7152211561 ####[facility] (DEFAULT)[address] [place] [address] 10260 AST [Catalytic activity/Vol] 41 U/L Normal 15-41 [facility] Comment on above: Performed By: #### 7 629198, 9706073357, 7613761, 06403801, 8247073, 4814438, 9026560149, 6395592, 6992025525 ####[facility] (DEFAULT)[address] [place] [address] 09559 Bili Total 0.4 mg/dL Normal 0.3-1.2 [facility] Comment on above: Performed By: #### 7 636616, 0885574824, 9041968, 40744406, 8940580, 6553359, 4339673452, 5436037, 3903149236 ####[facility] (DEFAULT)[address] [place] [address] 54141 Calcium [Mass/Vol] 10.2 mg/dL Normal 8.9-10.3 [facility] Comment on above: Performed By: #### 7 139873, 9163043528, 4646576, 88776639, 4442526, 7188736, 7424905443, 4410362, 6773703988 ####[facility] (DEFAULT)[address] [place] [address] 53865 Chloride [Moles/Vol] 96 mmol/L Low 101-111 [facility] Comment on above: Performed By: #### 7 814964, 4246900098, 8491243, 94533572, 9730010, 8578375, 0217048637, 0351770, 8406298602 ####[facility] (DEFAULT)[address] [place] [address] 11287 CO2 [Moles/Vol] 24 mmol/L Normal 21-32 [facility] Comment on above: Performed By: #### 7 959608, 1532510763, 9398703, 85503387, 6542382, 1724066, 3231353398, 7726288, 9754932736 ####[facility] (DEFAULT)[address] [place] [address] 86972 Creatinine [Mass/Vol] 1.10 mg/dL Normal 0.60-1.30 [facility] Comment on above: Performed By: #### 7 868073, 1340763833, 4237741, 20125494, 5306553, 1108396, 0884914400, 0454268, 8943570785 ####[facility] (DEFAULT)[address] [place] [address] Globulin (S) [Mass/Vol] 4.2 g/dL Normal 1.5-4.3 [facility] Comment on above: Performed By: #### 7 097019, 7463364799, 7230297, 56352489, 7224428, 4970940, 8157588638, 3731076, 4069326240 ####[facility] (DEFAULT)[address] [place] [address] Glucose [Mass/Vol] 97.0 mg/dL Normal 74.0-118.0 [facility] Comment on above: Performed By: #### 7 140139, 9229967875, 5042398, 60256206, 2456563, 4245618, 9201911525, 8053622, 1668449604 ####[facility] (DEFAULT)[address] [place] [address] 42118 Osmolality 278 mOsm/L Invalid Interpretation Code [facility] Comment on above: Performed By: #### 7 406659, 2529488397, 1695143, 05298823, 6361548, 9791565, 3949656109, 7541100, 7184347369 ####[facility] (DEFAULT)[address] [place] [address] 74359 Potassium [Moles/Vol] 3.5 mmol/L Low 3.6-5.1 [facility] Comment on above: Performed By: #### 7 472051, 4426277975, 6318529, 65797610, 6618652, 4715819, 7665094797, 0328720, 0796446763 ####[facility] (DEFAULT)[address] [place] [address] 05711 Protein [Mass/Vol] 8.9 g/dL High 6.5-8.1 [facility] Comment on above: Performed By: #### 7 567963, 0861068926, 0297233, 84363350, 7580804, 0586059, 3987091169, 9915889, 7593922429 ####[facility] (DEFAULT)[address] [place] [address] 79076 Sodium [Moles/Vol] 139.0 mmol/L Normal 136.0-144.0 [facility] Comment on above: Performed By: #### 7 442145, 0283197945, 7783333, 42762135, 0764684, 8198885, 7168584726, 0534772, 3828468120 ####[facility] (DEFAULT)[address] [place] [address] 28999 Urea nitrogen [Mass/Vol] 15 mg/dL Normal 8-26 [facility] Comment on above: Performed By: #### 7 674531, 2434166118, 2704929, 26083388, 3441209, 7726261, 4945021756, 7297031, 0816751594 ####[facility] (DEFAULT)[address] [place] [address] 60212 Urea nitrogen/Creatinine [Mass ratio] 14.0 mg/mg Normal 4.6-16.2 [facility] Comment on above: Performed By: #### 7 750984, 1979490169, 9301437, 73081376, 7799508, 4766681, 5842463196, 5630952, 1780857061 ####[facility] (DEFAULT)[address] [place] [address] Head or Brain w/o Contras ton 12-21-2021 CT Head or Brain w/o Contrast [...] Ha 12/21/21 9:19 pm Technologist: Erwin CHAUDHARI [facility] D-Dimeron 12-21-2021 D-Dimer 0.49 mg/L FEU Normal 0.19-0.50 [facility] Comment on above: Result Comment: The INNOVANCE [...] Liver cirrhosis ? Performed By: #### 7 295327, 4214619180, 4722502, 32750044, 6126222, 4853901, 8383321956, 0149664, 1678779377 ####[facility] (DEFAULT)[address] [place] [address] ED Note - Otheron 12-21-2021 ED Note - Other Neurology called back from [facility], on phone with Mariajose LLANES [Electronically Signed on: 12/21/2021 21:29 EDT] Nadya Garcia [Verified on: 12/21/2021 21:29 EDT] Nadya Garcia [facility] ED Note - Other paging Neurology through [facility] for consult for Mariajose LLANES [Electronically Signed on: 12/21/2021 21:12 EDT] Nadya Garcia [Verified on: 12/21/2021 21:12 EDT] Nadya Garcia [facility] ED Note - Physicianon 2021 ED [...] - pharynx pink and moist. NECK: -Supple ([id number]): non-tender. CARD: -Rate and rhythm: Regular -Edema: [...] I di (more content not included)... Normal [facility] ED Note-Nursingon 12-21-2021 ED Note-Nursing Water Main Inspector assumed care for pt at 2124. Pt had fluids running at that time. Will continue to give the rest of the liter per VO from MARIO ALBERTO. PA also stated that after speaking with neuro, pt is to be transferred to [facility] for MRI and further evaluation. Normal [facility] Ethanol.on 12-21-2021 Ethanol Level 9.0 mg/dL High 0.0-5.0 [facility] Comment on above: Performed By: #### 2 [id number] #### [facility] (DEFAULT) [address] [place] [address] 91354 Extra [place] 12-21-2021 Tube Collected Yes Invalid Interpretation Code [facility] Comment on above: Performed By: #### 2 475042, [id number] #### [facility] (DEFAULT) [address] [place] [address] 98515 Extra Redon 12-21-2021 Tube Collected Yes Invalid Interpretation Code [facility] Comment on above: Performed By: #### 7 869278, 4249744300, 5613978, 87416300, 4380632, 4448427, 4208030265, 6805721, 5058949962 #### [facility] (DEFAULT) [address] [place] [address] 88858 Magnesiumon 12-21-2021 Magnesium [Mass/Vol] 2.02 mg/dL Normal 1.80-2.50 [facility] Comment on above: Performed By: #### 7 534367, 7626246910, 0763800, 15553880, 7434290, 4370412, 8691100522, 3694431, 1319988167 ####[facility] (DEFAULT)[address] [place] [address] 09464 PTon 12-21-2021 INR Coag (PPP) [Relative time] 0.94 {INR} Normal 0.91-1.11 [facility] Comment on above: Performed By: #### 7 957631, 3403620359, 4971405, 88031375, 1323166, 4664264, 4019155948, 8228269, 3520844957 ####[facility] (DEFAULT)[address] [place] [address] PT 10.2 second(s) Normal 9.7-11.8 [facility] Comment on above: Performed By: #### 7 448137, 2041296583, 3165260, 27061301, 7600346, 6048858, 2296791816, 2690951, 4080996013 ####[facility] (DEFAULT)[address] [place] [address] 43656 PTTon 12-21-2021 PTT 26 second(s) Normal 25-35 [facility] Comment on above: Performed By: #### 7 783849, 9397718001, 2504367, 49857203, 9176494, 3667320, 0094781594, 0551270, 9024379749 ####[facility] (DEFAULT)[address] [place] [address] 02807 Test Urine 1 U Preg Negative Normal [facility] Comment on above: Performed By: #### 1 [id number], [id number] ####[facility] (DEFAULT)[address] [place] [address] 45969 U Preg Internal Control Pass Normal [facility] Comment on above: Performed By: #### 1 [id number], 587957610 ####[facility] (DEFAULT)[address] [place] [address] 35634 Salicylateon 12-21-2021 Salicylate Lvl <4.0 Normal 0.0-30.0 [facility] Comment on above: Result Comment: Sali cylate ranges less than 30 mg/dL are considered to be therapeutic. Levels greater than 30 mg/dL are considered toxic and levels greater than 60 mg/dL may be lethal. Performed By: #### 2 028805, [id number] #### [facility] (DEFAULT) [address] [place] [address] 39484 TnI HSon 12-21-2021 Troponin I High Sensitivity <2 Normal <=15 [facility] Comment on above: Result Comment: Male Baseline Delta 1Hr (Note pg/mL=ng/L) <20pg/mL 50-60% >20pg/mL 20% Female Baseline Delta 1Hr <15pg/mL 50-60% >15pg/mL 20% Other Baseline Delta 1Hr <18ng/mL 50-60% >18ng/mL 20% ([employer] [employer] Guidelines February 2018) Performed By: #### 7 499218, 6050739017, 3041402, 87165372, 5382130, 6582260, 6609587209, 3193245, 4509712897 ####[facility] (DEFAULT)[address] [place] [address] 74526 Triage Panel 12on 12-21-2021 Triage Internal Control Pass Normal [facility] Comment on above: Performed By: #### 1 [id number] ####[facility] (DEFAULT)[address] [place] [address] 82406 U Amph Scr Negative [facility] Comment on above: Performed By: #### 1 [id number] ####[facility] (DEFAULT)[address] [place] [address] 01003 U Vanesa Scr Negative [facility] Comment on above: Performed By: #### 1 [id number] ####[facility] (DEFAULT)[address] [place] [address] 03425 U Benzodia Scr Negative [facility] Comment on above: Performed By: #### 1 [id number] ####[facility] (DEFAULT)[address] [place] [address] 65877 U Cannab Scrn Negative [facility] Comment on above: Performed By: #### 1 [id number] ####[facility] (DEFAULT)[address] [place] [address] 65175 U Cocaine Scr Negative [facility] Comment on above: Performed By: #### 1 [id number] ####[facility] (DEFAULT)[address] [place] [address] 05871 U Methadone Scr Negative [facility] Comment on above: Performed By: #### 1 [id number] ####[facility] (DEFAULT)[address] [place] [address] 82051 U Methamp Scrn Negative [facility] Comment on above: Performed By: #### 1 [id number] ####[facility] (DEFAULT)[address] [place] [address] 70976 U Opiate Scr Negative [facility] Comment on above: Performed By: #### 1 [id number] ####[facility] (DEFAULT)[address] [place] [address] 61030 U Oxycod Scr Negative [facility] Comment on above: Performed By: #### 1 [id number] ####[facility] (DEFAULT)[address] [place] [address] 88590 U Phencyclidine Scr Negative [facility] Comment on above: Performed By: #### 1 [id number] ####[facility] (DEFAULT)[address] [place] [address] 40619 U Propoxyphene Scr Negative [facility] Comment on above: Performed By: #### 1 [id number] ####[facility] (DEFAULT)[address] [place] [address] 43211 U Tricyclic Antidepress Scr Negative [facility] Comment on above: Result Comment: Resu [...] PPX Propoxyphene (Norpropoxyphene): 300 ng/mL THC Cannabinoids (59-ugk-4-carboxy- -THC): 50 ng/mL TCA Tricyclic-Antidepressants (Desipramine): 300 ng/mL Performed By: #### 1 [id number] ####[facility] (DEFAULT)[address] [place] [address] Urine Source Clean Catch [facility] Comment on above: Performed By: #### 1 [id number] ####[facility] (DEFAULT)[address] [place] [address] UA w Culture if Ind Standard on 12-21-2021 Color (U) Yellow [facility] Comment on above: Performed By: #### 1 [id number], [id number] ####[facility] (DEFAULT)[address] [place] [address] Culture? Not Indicated Invalid Interpretation Code [facility] Comment on above: Result Comment: Resu lt created by rule GL_MAGR_ADD_UA_[id number] Performed By: #### 1 [id number], [id number] ####[facility] (DEFAULT)[address] [place] [address] 30072 Glucose (U) [Mass/Vol] Negative [facility] Comment on above: Performed By: #### 1 [id number], [id number] ####[facility] (DEFAULT)[address] [place] [address] 05288 Ketones Ql (U) Negative [facility] Comment on above: Performed By: #### 1 766381585, [id number] ####[facility] (DEFAULT)[address] [place] [address] 19130 Micro? Not Indicated Invalid Interpretation Code [facility] Comment on above: Result Comment: Resu lt created by rule GL_MAGR_ADD_UA_MICRO Performed By: #### 1 [id number], [id number] ####[facility] (DEFAULT)[address] [place] [address] 24082 UA Bilirubin Negative Normal [facility] Comment on above: Performed By: #### 1 [id number], [id number] ####[facility] (DEFAULT)[address] [place] [address] 67335 UA Blood Negative Normal NEGATIVE [facility] Comment on above: Performed By: #### 1 [id number], [id number] ####[facility] (DEFAULT)[address] [place] [address] 24512 UA Clarity CLEAR Normal CLEAR [facility] Comment on above: Performed By: #### 1 [id number], [id number] ####[facility] (DEFAULT)[address] [place] [address] 39399 UA Leuk Est Negative Normal NEGATIVE [facility] Comment on above: Performed By: #### 1 [id number], [id number] ####[facility] (DEFAULT)[address] [place] [address] 14975 UA Nitrite Negative Normal NEGATIVE [facility] Comment on above: Performed By: #### 1 [id number], [id number] ####[facility] (DEFAULT)[address] [place] [address] 02712 UA pH 6.5 Normal 5-8 [facility] Comment on above: Performed By: #### 1 [id number], [id number] ####[facility] (DEFAULT)[address] [place] [address] 54227 UA Protein Negative Normal NEGATIVE [facility] Comment on above: Performed By: #### 1 [id number], [id number] ####[facility] (DEFAULT)[address] [place] [address] 20812 UA Spec Grav <=1.005 Normal 1.001-1.035 [facility] Comment on above: Performed By: #### 1 [id number], [id number] ####[facility] (DEFAULT)[address] [place] [address] 48555 UA Urobilinogen 0.2 mg/dL Normal 0.2-1.0 [facility] Comment on above: Performed By: #### 1 [id number], [id number] ####[facility] (DEFAULT)[address] [place] [address] 16217 Breakpoint UA Normal [facility] Comment on above: Performed By: #### 1 [id number], [id number] ####[facility] (DEFAULT)[address] [place] [address] 21872 Urine Source Clean Catch Normal [facility] Comment on above: Performed By: #### 1 [id number], [id number] ####[facility] (DEFAULT)[address] [place] [address] 93262 XR Chest 2 Viewson XR Chest 2 [...] Bowen 12/21/21 9:38 pm Technologist: BARBRA,Obed Normal [facility] CARDIAC HUMAIRA ADMITon 021 CK [Catalytic activity/Vol] 117 U/L Normal 30-135 [facility] Comment on above: Performed By: #### T SH, CMADM, CMP #### [facility] [address] [place], [place] [address] Nelida Bautista CK.MB [Mass/Vol] 1.16 ng/mL Normal <=2.37 [facility] Comment on above: Performed By: #### T JOÃO LOCK, CMP #### [facility] [address] [place] [address] Nelida Lily HSTROP <4.0 Normal 4.0-35.5 [facility] Comment on above: Result Comment: CUT- OFF POINTS HAVE BEEN ESTABLISHED BASED ON THE FOURTH UNIVERSAL DEFINITIONS OF MYOCARDIAL INFARCTION. THE UPPER REFERENCE LIMIT (URL) OF TROPONIN, DEFINED THE 99TH PERCENTILE OF cTnI DISTRIBUTION IN A REFERENCE POPULATION, HAS BEEN CONFIRMED THE DECISION THRESHOLD FOR CT DIAGNOSIS. Performed By: #### T JOÃO LOCK, CMP #### [facility] [address] [place] [address] Nelida Lily NGA 41.0 ng/mL Normal <=61.5 [facility] Comment on above: Performed By: #### T JOÃO LOCK, CMP #### [facility] [address] [place] [address] Nelida Lily CBC AUTO DIFFon 02-23-2021 BASO # 0.1 103/ul Normal 0.0-0.1 [facility] Comment on above: Performed By: #### C BC #### [facility] [address] [place] [address] Nelida Lily Basophils/100 WBC (Bld) 1.0 % Normal 0.2-2.0 [facility] Comment on above: Performed By: #### C BC #### [facility] [address] [place] [address] Nelida Lily EO # 0.1 103/ul Normal 0.0-0.7 [facility] Comment on above: Performed By: #### C BC #### [facility] [address] [place] [address] Nelida Lily Eosinophils/100 WBC (Bld) 2.2 % Normal 0.9-7.0 [facility] Comment on above: Performed By: #### C BC #### [facility] [address] [place] [address] Nelida Lily Erythrocyte distribution width (RBC) [Ratio] 14.2 % Normal 11.0-15.0 [facility] Comment on above: Performed By: #### C BC #### [facility] [address] [place] [address] Nelida Bautista Hematocrit (Bld) [Volume fraction] 40.6 % Normal 36.0-48.0 [facility] Comment on above: Performed By: #### C BC #### [facility] [address] [place] [address] Nelidajose Bautista Hemoglobin (Bld) [Mass/Vol] 13.3 g/dL Normal 12.0-16.0 [facility] Comment on above: Performed By: #### C BC #### [facility] [address] [place] [address] Nelidajose Bautista IG # 0.02 10e3/ul Normal 0.00-0.03 [facility] Comment on above: Performed By: #### C BC #### [facility] [address] [place] [address] Nelidajose Bautista IG % 0.4 % Normal 0.0-0.5 [facility] Comment on above: Performed By: #### C BC #### [facility] [address] [place] [address] Nelida Bautista LYMPH # 1.7 103/ul Normal 1.2-3.8 [facility] Comment on above: Performed By: #### C BC #### [facility] [address] [place] [address] Nelida Bautista Lymphocytes/100 WBC (Bld) 34.6 % Normal 20.5-60.0 [facility] Comment on above: Performed By: #### C BC #### [facility] [address] [place], [place] [id number] Nelida Bautista MANUAL DIFF REQ NO Normal [facility] Comment on above: Performed By: #### C BC #### [facility] [address] [place] [address] Nelida Bautista MCH (RBC) [Entitic mass] 31.5 pg Normal 26.7-34.0 [facility] Comment on above: Performed By: #### C BC #### [facility] [address] [place], [place] [address] Nelidajose Bautista MCHC (RBC) [Mass/Vol] 32.8 g/dL Normal 29.9-35.2 [facility] Comment on above: Performed By: #### C BC #### [facility] [address] [place] [id number] Nelidajose Kimbleen MCV (RBC) [Entitic vol] 96.2 fL Normal 81.0-99.0 [facility] Comment on above: Performed By: #### C BC #### [facility] [address] [place] [id number] Nelida Lily MONO # 0.4 103/ul Normal 0.3-0.8 [facility] Comment on above: Performed By: #### C BC #### [facility] [address] [place], [place] [id number] Nelida Lily Monocytes/100 WBC (Bld) 7.1 % Normal 1.7-12.0 [facility] Comment on above: Performed By: #### C BC #### [facility] [address] [place] [id number] Nelida Lily NEUT # 2.7 103/ul Normal 1.4-6.5 [facility] Comment on above: Performed By: #### C BC #### [facility] [address] [place], [place] [id number] Nelida Lily Neutrophils/100 WBC (Bld) 54.7 % Normal 43.0-75.0 [facility] Comment on above: Performed By: #### C BC #### [facility] [address] [place], [place] [id number] Nelida Lily Platelet mean volume (Bld) [Entitic vol] 9.8 fL Normal 9.5-13.5 [facility] Comment on above: Performed By: #### C BC #### [facility] [address] [place] [id number] Nelida Lily PLT 320 103/ul Normal 150-450 [facility] Comment on above: Performed By: #### C BC #### [facility] [address] [place] [address] Nelida Bautista RBC 4.22 106/ul Normal 4.20-5.40 [facility] Comment on above: Performed By: #### C BC #### [facility] [address] [place] [address] Nelida Bautista WBC 4.9 103/ul Normal 4.0-11.0 [facility] Comment on above: Performed By: #### C BC #### [facility] [address] [place] [address] STROKE HEAD WOon 02-24-20 [...] JANESSA SKINNER Date: 2021-02-23 13:52 Normal [facility] ER URINE PROFILEon 1 Bilirubin Ql (U) Negative Normal NEGATIVE [facility] Comment on above: Performed By: #### E RUR #### [facility] [address] [place] [address] Nelida Bautista Clarity (U) CLEAR Normal CLEAR [facility] Comment on above: Performed By: #### E RUR #### [facility] [address] [place] [address] Nelida Bautista Color (U) LT. YELLOW Normal YELLOW [facility] Comment on above: Performed By: #### E RUR #### [facility] [address] [place] [address] Nelida Lily ERUAHD A micrscopic examination will be performed if indicated. Normal [facility] Comment on above: Performed By: #### E RUR #### [facility] [address] [place] [address] Nelida Lily Glucose Ql (U) Negative Normal NEGATIVE [facility] Comment on above: Performed By: #### E RUR #### [facility] [address] [place] [address] Nelida Lily Hemoglobin Ql (U) Negative Normal NEGATIVE [facility] Comment on above: Performed By: #### E RUR #### [facility] [address] [place] [address] Nelida Lily Ketones Ql (U) Negative Normal NEGATIVE [facility] Comment on above: Performed By: #### E RUR #### [facility] [address] [place] [address] Nelida Lily LEUKOCYTES Negative Normal NEGATIVE [facility] Comment on above: Performed By: #### E RUR #### [facility] [address] [place] [address] Nelida Lily Nitrite Ql (U) Negative Normal NEGATIVE [facility] Comment on above: Performed By: #### E RUR #### [facility] [address] [place] [address] Enlida Lily pH (U) 8.0 [pH] Normal 5-9 [facility] Comment on above: Performed By: #### E RUR #### [facility] [address] [place] [address] Nelida Lily SPEC GRAVITY 1.020 Normal 1.005-<=1.025 [facility] Comment on above: Performed By: #### E RUR #### [facility] [address] [place] [address] Nelida Lily UA PROTEIN Negative Normal NEGATIVE/ TRACE [facility] Comment on above: Performed By: #### E RUR #### [facility] [address] [place] [address] Nleida Lily UR MICRO IND NOT INDICATED Normal [facility] Comment on above: Performed By: #### E RUR #### [facility] [address] [place] [address] Nelida Kimbleen Urobilinogen Qn (U) 0.2 {Jose Carlos'U}/dL Normal 0.2 - 1. 0 [facility] Comment on above: Performed By: #### E RUR #### [facility] [address] [place] [address] Nelida Kimbleen POINT OF CARE GLUCOSEon 01-27 Glucose [Mass/Vol] 95 mg/dL Normal 74-106 [facility] Comment on above: Performed By: #### P OCGLUC #### [facility] [address] [place] [address] Nelida Lily PREG HCG QUALon 02-23-2021 , QUAL Negative Normal NEGATIVE [facility] Comment on above: Performed By: #### P REG #### [facility] [address] [place] [address] Nelida Bautista PROF 14(COMP METB)on 021 Albumin [Mass/Vol] 3.6 g/dL Normal 3.5-5.0 [facility] Comment on above: Performed By: #### T JOÃO LOCK, CMP #### [facility] [address] [place] [address] Nelida Bautista Albumin/Globulin [Mass ratio] 0.9 {ratio} Normal [facility] Comment on above: Performed By: #### T JOÃO LOCK, CMP #### [facility] [address] [place] [address] Nelida Bautista ALP [Catalytic activity/Vol] 103 U/L Normal 38-126 [facility] Comment on above: Performed By: #### T JOÃO LOCK, CMP #### [facility] [address] [place] [address] Nelida Lily ALT [Catalytic activity/Vol] 35 U/L Normal 9-52 [facility] Comment on above: Performed By: #### T JOÃO LOCK, CMP #### [facility] [address] [place] [address] Nelida Lily Anion gap [Moles/Vol] 13.3 mmol/L Normal [facility] Comment on above: Performed By: #### T JOÃO LOCK, CMP #### [facility] [address] [address] Nelida Lily AST [Catalytic activity/Vol] 28 U/L Normal 14-36 [facility] Comment on above: Performed By: #### T JOÃO LOCK, CMP #### [facility] [address] [address] Nelida Lily Bilirubin [Mass/Vol] 0.2 mg/dL Normal 0.2-1.3 [facility] Comment on above: Performed By: #### T JOÃO LOCK, CMP #### [facility] [address] [place] [address] Nelida Lily Calcium [Mass/Vol] 9.0 mg/dL Normal 8.4-10.2 [facility] Comment on above: Performed By: #### T JOÃO LOCK, CMP #### [facility] [address] [address] Nelida Lily Chloride [Moles/Vol] 108 mmol/L Critically high 98-107 [facility] Comment on above: Performed By: #### T JOÃO LOCK, CMP #### [facility] [address] [place] [address] Nelida Lily CO2 [Moles/Vol] 25.8 mmol/L Normal 22.0-30.0 [facility] Comment on above: Performed By: #### T JOÃO LOCK, CMP #### [facility] [address] [address] Nelida Lily Creatinine [Mass/Vol] 1.00 mg/dL Normal 0.52-1.04 [facility] Comment on above: Performed By: #### T JOÃO LOCK, CMP #### [facility] [address] [address] Nelida Lily EGFR-AF TONGAN >60 Normal >=60 [facility] Comment on above: Performed By: #### T JOÃO LOCK, CMP #### [facility] [address] [place], [place] [address] Nelida Lily EGFR-NON AF TONGAN >60 Normal >=60 [facility] Comment on above: Performed By: #### T JOÃO LOCK, CMP #### [facility] [address] [place], [place] [address] Nelida Lily Globulin (S) [Mass/Vol] 4.2 g/dL Normal [facility] Comment on above: Performed By: #### T JOÃO LOCK, CMP #### [facility] [address] [id number] Nelida Lily Glucose [Mass/Vol] 95 mg/dL Normal 74-106 [facility] Comment on above: Performed By: #### T JOÃO LOCK, CMP #### [facility] [address] [address] Nelida Lily Potassium [Moles/Vol] 4.1 mmol/L Normal 3.4-5.0 [facility] Comment on above: Performed By: #### T JOÃO LOCK, CMP #### [facility] [address] [address] Nelida Lily Protein [Mass/Vol] 7.8 g/dL Normal 6.1-8.2 [facility] Comment on above: Performed By: #### T JOÃO LOCK, CMP #### [facility] [address] [place], [place] [id number] Nelida Lily Sodium [Moles/Vol] 143 mmol/L Normal 137-145 [facility] Comment on above: Performed By: #### T JOÃO LOCK, CMP #### [facility] [address] [id number] Nelida Lily Urea nitrogen [Mass/Vol] 10.0 mg/dL Normal 7.0-17.0 [facility] Comment on above: Performed By: #### T JOÃO LOCK, CMP #### [facility] [address] [id number] Nelida Lily Urea nitrogen/Creatinine [Mass ratio] 10.0 mg/mg Normal [facility] Comment on above: Performed By: #### T JOÃO LOCK, CMP #### [facility] [address] [place], [place] [address] Nelida Bautista TSHon 02-23-2021 TSH 1.157 uIU/mL Normal 0.470-4.680 [facility] Comment on above: Performed By: #### T HAYDE, RAYDM, CMP #### [facility] [address] [place], [place] [address] Nelida Bautista TSH RANGE SEE BELOW Normal [facility] Comment on above: Result Comment: <0.3 4 UIU/ml HYPERTHYROID 0.34-5.60 UIU/ml EUTHYROID >5.60 UIU/ml HYPOTHYROID Performed By: #### T JOÃO LOCK, CMP #### [facility] [address] [id number] Nelida Bautista XR CHEST 1 Von 02-23-2021 [...] JANESSA SKINNER Date: 2021-02-23 13:53 Normal [facility] Encounters Encounter Date Encounter Type Care Provider Facility Start: 11-18-2023 End: 11-18-2023 ambulatory MARYANN ZACKERY Not Available Start: 10-21-2023 End: 10-21-2023 ambulatory SHAWNA RICHTER Not Available Start: 09-23-2023 End: 09-23-2023 ambulatory MARYANN ZACKERY Not Available Start: 08-22-2023 End: 08-22-2023 ambulatory MARYANN ZACKERY Not Available Start: 12-22-2021 End: 12-22-2021 ambulatory JARVIS Hankins [facility] Start: 02-23-2021 End: 02-23-[address] DOCTOR GOODSON Facility: Payers Date Payer Category Payer Unknown [id number] 1985 Unknown [id number] 2.16.84 [id number] 1985 Unknown [id number] 2.16.84 [id number] 1985 Unknown [id number] 2.16.84 [id number] 1985 Unknown [id number] 2.16.84 [id number] 1987 Unknown [id number] 2.16.84 [id number] 1959 Unknown [id number] Summary Purpose Family History No Family History Records FoundNo Family History Records FoundNo Family History Records FoundNo Family History Records Found Advance Directives No Advanced Directives Records FoundNo Advanced Directives Records FoundNo Advanced Directives Records FoundNo Advanced Directives Records Found Additional Source Comments INFORMATION SOURCE (unrecogn ized section and content) DATE CREATED AUTHOR 02/28/2021 [facility] DATE CREATED AUTHOR AUTHOR'S ORGANIZ ATION 12/24/2021 [facility] DATE CREATED AUTHOR AUTHOR'S ORGANIZ ATION 01/01/2022 [facility] DATE CREATED AUTHOR AUTHOR'S ORGANIZ ATION 11/19/2023 [facility] FOR RECORDS PERTAINING TO PATIENTS WHO [...] BE BASED ON THE PRIMARY CLINICAL RECORDS. [facility]. provides no warranty or guarantee of the accuracy or completeness of information in this document.
[2023-12-12 10:54] LABS: Basophils Percent Auto 0.4 % (0.2-2.0); Eosinophils Absolute Auto 0.1 10^3/uL (0.0-0.7); Eosinophils Percent Auto 0.5 % (0.9-7.0); Hematocrit 34.4 % (36.0-48.0); Hemoglobin 11.5 g/dL (12.0-16.0); Immature Granulocytes Abs Auto 0.03 10^3/uL (0.00-0.03); Immature Granulocytes Pct Auto 0.3 % (0.0-0.5); Lymphocytes Absolute Auto 1.4 10^3/uL (1.2-3.8); Lymphocytes Percent Auto 14.8 % (20.5-60.0); Mean Corpuscular HGB Conc 33.4 g/dL (29.9-35.2); Mean Corpuscular Hemoglobin 30.1 pg (26.7-34.0); Mean Corpuscular Volume 90.1 fL (81.0-99.0); Mean Platelet Volume 9.7 fL (9.5-13.5); Monocytes Absolute Auto 0.4 10^3/uL (0.3-0.8); Monocytes Percent Auto 4.2 % (1.7-12.0); Neutrophils Absolute Auto 7.3 10^3/uL (1.4-6.5); Neutrophils Percent Auto 79.8 % (43.0-75.0); Platelet Count 318 10^3/uL (150-450); Red Blood Count 3.82 10^6/uL (4.20-5.40); Red Cell Distribution Width 13.7 % (11.0-15.0); White Blood Count 9.2 10^3/uL (4.0-11.0)
[2023-12-12 12:09] LABS: Glucose 1 Hour 139 mg/dL (<130)
== END 2023-12-12 09:36 | disposition home or self-care (01) ==
LOC: LAB 09:36
PROVIDERS: Visit Provider Obstetrics & Gynecology
DX: Z13.1 Encounter for screening for diabetes mellitus (principal)
CPT/HCPCS: 36415; 82950; 85025

== ENCOUNTER 2023-12-16 08:52 | Outpatient (OUT) | payer BC, SELFPAY ==
--- NOTE | 2023-12-16 08:54 | US_ITS ---
[address] [address] Patient Name: LOCO HICKS MRN: [id number] date: 1985 Sex: F Assigned Patient Location: [facility] Current Patient Location: [facility] Accession/Order Number: [id number] Exam Date: 12/16/2023 08:55 Report Date: 12/16/2023 10:29 At the request of: MARYANN VIZCARRA Procedure: US OB growth EXAMINATION: US OB growth HISTORY: ADVANCED MATERNAL AGE COMPARISON: Ultrasound OB anatomy 10/01/2023 FINDINGS: Heart Rate: 141.0 bpm Number: 1.0 Position: CEPHALIC Amniotic Fluid Volume: 16.8 cm Maximum Vertical Pocket: 6.6 cm BIOMETRY: BPD: 7.1 cm cm; 28 weeks 4 days; 40% HC: 25.8 cmcm; 28 weeks 0 days ; 15% AC: 26.0 cm cm; 30 weeks 1 days; 91% FL: 5.3 cm cm; 28 weeks 1 days; 30% EFW: 1350.6 grams; 72% FL/AC: 20.3 FL/BPD: 74.3 HC/AC: 1.0 GESTATIONAL AGE: Age by EDC: 28 weeks 2 days DEEPALI by EDC: 03/07/2024 Age by US: 28 weeks 5 days DEEPALI by US: 03/04/2024 US/US OB growth IMPRESSION: 1. Single live intrauterine with growth detailed above. Electronically authenticated by: JANESSA SKINNER Date: 12/16/2023 10:29
--- OUTSIDE RECORDS SUMMARY | 2023-12-16 09:13 | XMS_ITS | CCD ---
Author Organization [facility] Care Team Providers Care Machine Stapler Name Role Phone HAMZAH, DR OLSON Primary Care Unavailable PAY, DR OLSEN Admitting Unavailable PAY, DR OLSEN Attending Unavailable ZIEBER, DR JANESSA Davila Consulting Unavailable PAY, DR OLSEN Consulting Unavailable JARVIS RODRIGUEZ Referring Unavailable JARVIS RODRIGUEZ Primary Care Unavailable NERISSA CAMPBELLRAHMANYMAYI Consulting Unavail able CADEN CERNA Attending Unavailable [...] Coding Summaryon 12-31-2021 Coding Summary HTMLBase 64 FnmayvyyJFj6zLg+PGhl YWQ+JS6LGRRdE95ruUBs sC1PX3wIUR6ZXIRJAQOW QC2MKG4rgLK5TWzmC0Au biAv PiprdRCeDW34LMo8QJQ3 rKlkSOdmzL7hmSVwA6m2 QzNyAL91fK29GDqoWBGh QxF8IbJymkiefRBs Q1hrHgGklLHaXqa+PHRh YmxlIHdpZHRoPScxMDAl SsClbXchBI2iFs8hDJVb LWNvbGxhcHNlOiBj l3tvLVVyZDavWH4llLzi Z1KatFM0MBMfr8t5Mf59 dHI+BAVpHWU2bKumIHpb n394IdWmz7bqFFR7 sZHhCZtlLCS3L43ou1S8 IVWmPTDfETK3sPA7aL0w xZayalrfY8JaoCZyHrE2 HUL7vYKvbL2xsZop txpdpN7oNwd+L72QMJ1Q MFSTBK6RYaw8K9RmZqen dHI+AT79ZHOwVS46rYVx hPHlz1axkGm4KmTc HIYmZFY9aNajRIeev8Pc PACuH26jpHHgq6G8WUWa vYopbCHxZhMwaUM2jF5y BBmlndsgl8pdgiim Ovmpo7jyrn50pK54I97d ZMurSBIuSBQ6FYVyHDLd bLljby4mlU0bBc1+IDxj q0odc8mqpTc0RkCz ELWxbzSqcCfgJMO1y3Vp Tt98P8TqzSalc5FdMgl4 rn55xNNdw5H9rLA6UKau SBLmuC1xJWmiYxV5 PTRhLoOklH89uTEeFBqa Tz6ijXzigVqgNI0oXRTc kixrIMPwnA1bOBMlsIRo eLyyGV3oMWMmxesj f718NuGgUZD3ZLIihLSk C2QizC1uZrVrTXQqQRJb K4HdlMCpBLlgQ673KAcl HqV9YLHgdyIdP8Jr ZKRymRkkSoD5e2N8Zn0U w7YkahtbPLP7NZoxDXP6 WlS2AoRsEqN2S6UeXii6 ZFYogYgiHP8uL4Gt TQNeujsdiltswTC9JBKn HNEemP88mKQjNXndNi7h p1W7r734GWTkRCPecK60 Kh4adDsjKHAuxJDY mF7nohsmm6fojmvlWzCd AIWyGWz8BVr7IBYtyMcr TbJbMGS1YvC9YPN2xSHn kW0pwCutmtnatG9n Oyc+H47mvZ4uQXU1LJS3 iyzpCTKftzHsAO60QH95 P1GbUboryPUwoIJ+PGRp vkYqbIvqTX0uArQx y4nnm8ZtNRpaU1ScGJLt IKnpLiw9GULmHFE0mQA9 uU9pIOFaFKugh3X5jFC6 W2GbbjKnsl1fg2sl HUGuAShkP49vnHMue5N2 QWEzqSY1UIQkoEquKoCw kV71Nsf+JUJasEquj9Pl Drmew9wyf8wpdOk2 IjMwJSIgdmFsaWduPSJ0 i9PqHm61D48eXOstIWSu CAOuBAKoDNPeySxecd8x rI9iOr1+PGNvbCB3 mBV7aC9vPNCpFvJ7MWlf X139KnVrtGJeXxmph0fb t6epdGy3QkKvISJaqxXq rHldVUA9t9OhBe76 P97kJOytJUEcGLMkIXCm ZPMkxKdqgk0auC5mKo4+ ZA0sq7xqiq80gP33qUJ+ ASGeWOW3iVpeXGxc KTLwoQ4kUQlkZeF2HXZb FrUyoR91aHMaFRmtQg3t vUaqyXpiXD3bQRZuxmbb t885ObRuq0hyOGBs tRNxZWzqQCA6U40zo7H5 VQUaMRGwOVJ2rDY9rH6k bGlnbjogbGVmdDsgdmVy qYtvAXemPKzzQ369 IHRvcDsnPlBhdGllbnQg XzPtFJz2X5VsDbh1KYLj yNtaZY1meSGoFAfeFu8x xXjcgGktKZ5fLXWu kanuj120StHlm7ggSPOo kNAvVRgsEKV9E77jo3J2 XMZvQIEwWMI6vFR7nG2l bGlnbjogbGVmdDsg euFnxIerUDgoQMdyJ831 IHRvcDsnPkJpcnRoIERh fJI8JI22IG41hTQco3U1 gVX3F6ZeEFJxjwdv snmhtUE9MHVcLYHrdI87 Sw0nfHbgUa1cQMSzOCT6 AMGyfBSpJ2JknZ8dKxAg FWQoHZCpG7BpoQWo LSjtR838EWqrBwS1QSGw tbOnR9HmMENgoOxuRxQ6 l2P6Zt3XU7C7WF48HL61 aINml6R3fMK6M1Gm LFDuwwordelzdQS6GBIc AGOodN71Vr7whHovBr0i WNZvESA0NJOzpPLiW3Sl bI7uKqCbBYFoPMAw U0LrqWEvHSnwI836LEqt UhV5BLHarpIbP0LmJPOy pKasVoX7g4S7Af1IISh6 QP77FH57bLUoo8C7 wUK6S7TqKZUtugvpzjpp xKB4UNBjVIRiiF15Sb4m iWojCp9bZMJhEAB2UXXp nAPwO4DdxC7uArUv QZLzSLDuN6VduFBqGNmx J025ZMveDdS9JFCwhnCe D6JyGQHrgTyaAjY9t1X2 Bu9ZKXEtDA79UAZ2 iZQ6MY69YO85H1EgUxnt dGFibGU+PHRhYmxlIHdp ZHRoPScxMDAlJyBzdHls AZ6fOz8fXZLmNYOx yJrsgDAbHfZrz5idMSMk WNykNT1lcXybR8ClbQY3 MUPyt2z9Ov87J55yX3Zb dXA+ZXVxoQN3cJW0 rA3bSrBoVwR6LInbH986 QpPjkMFmKvbnr8tdg5pc wBv3PcY5MCQpgrYmeIhd LQZ9y3NxQk86T65i IHdpZHRoPSIxNSUiIHZh mAxddg0fvX3iJj7+PGNv xUI9tML1qC2wWtTpBoX7 TOifB234BhFgtJUv Quhju0tid7qemVo3WgWh KXYcatRbkUvmAVW5z4Jc In76I8BxnJgqe2PmRna2 eo19gMSvf3J3pFP8 T0UgDJUkaqmqhMWqnJrx SQ5zZRDeixocQFIrnZ2o DFUmP4s8PhNlZoE6KDsh T7SgcbJ8TBVnpCFk QUgfNBF7J74eb9F9CHVp VICaJLX9nRS3pC3vdSqr bjogbGVmdDsgdmVydGlj UMkbTUetP654PIOo oOqqZXKroN4wUQSokZGq gYuoHI9kSKFhjrbdPdiY ZMZGBKZTSFVMByHAST54 OZ03nOWxa5Z7lCG5 P7NvTKJovpjeyednqLS6 NKZsGFEneB19eQEaOOwc Qu2ew6T5m443VFDwTPHh tT29Dh6pxDhmSPFi fSPIpH1fiufdm0brhfts IzXmSZTbNZz6VKk3DQYu oFquRwDfOFY6HuX2LPA5 bVEoyX9fcDmheygm hN9zExa+MDEvMDgvMTk4 ODwvdGQ+FSIcNDV9fEso FWpaJSYazF5eXDSsO4z3 SkZcPdF3SSdvU6Ls REUkjhmiIt53cD3wCnLt SfA3RLjvL5VeskA0GJOb uGNxQEtbUFK7X04el6J3 IMEaMKIoCZF4yBD7 wC4gwGxprdgybXVopKap lvSvnNboBOauZIifW525 OPUyoHbaIxL6VWkgJYYe GE89NP30iKHud3M2 jGT8H9BnCVIndjyvysxg iMQ7JHPwLIUsjN43iSRp PJmuFi5lh4J3h367EPHn DWEesZ85Zs3lsOuf PELqoVCJzB5xbkihx4hf ehtpOaMqBNWcWSf4FYx6 BYEumLmdYnGdOFZ4GoV6 JCY6yNXemP3nhTdb jsskgF8rFaw+RkVNQUxF KK87VD77bCLeb9C4zDY9 T9QySLTaajebkbplsRE1 LYNnNJAwpM80aBTj ZLexDj8pa1Q6z066GDHr FELkwG39Bk4wwPbsMNNq tBSGcU4fannaa3tnipbc XbMcHDGfFYt5ZZe5 REXkwRsfFfFjFTG1FaJ3 SXA2wIOhaE8kjExjdpgp jK5gWrg+G3Y1M0GvXzjx dHI+GL35GUFtVL78 aRSwmNCep5obkCx8QnLh DTLfCCU5dTlkLIhhz3Wu HYOzU62reHHui7Z4TPFj bGxhcHNlOyBlbXB0 aF2zFBpognjzp5krzipv Afnlr8gazq68eG48N47u IHdpZHRoPSIzMCUiIHZh pUsuaq7hfB2iLr2+ RQOrpEO4bHV9nE2mOiMr XvK6SGlfJ636QrPjiGZc Idofm0dnk9kfeDd7RwKy JSIgdmFsaWduPSJ0 i0RdDn27J98mYAskNWQh QQDbMIIqMFEjwXzgmh7l kU3eJo5+QY9or1ekfb36 cN96bIQ+PHRkIHN0 fAkpCDleSGDhjV9jOBte AeP2ZEWhMsJquH15ySOc KCdhNi7xxKtzpDfrYD9l MDDrnfvqj920FpEb e7yaMSHipLKcTEoiUDF7 O31mw5E1KZQtMITvDRH6 iHW5qM1hhFdnqgejzGWj dDsgdmVydGljYWwt RCiyJ034ZQIwgJglJzFk iKKyE3vasvFCNB1lWnlb dGQ+XUYjRNV5nVdmLGcb ZGMnzQ3sUHJoU9a0 LhZvPwP2QVloU2YqjxR0 ISWlvQMaTKOzlFLNpR8g yahse5cacirsEjYpXIWq SEj7WWk2IPOywEjx GaTwTHJ2BpS9OLW9xHZz aR3dzWfavrokvY9yIhs+ RklOOjwvdGQ+PHRkIHN0 eMdnLRjfEGPiuE0z LKPrR8z5RvTwCyM2BRyg N5PafaV1AKEfyQRnDAWc gVZVqZ5tgrihj3rwpanv AeDpBAIkFRp6KJz0 RVUnnMjtAkJjAET0LbI5 TUE8kRBirV8lqHbrafbn mF8sSmk+TVJOOjwvdGQ+ AIDgMOK5rYvkYDdx BDQnoQ0aFOKtL5y7VrAx FtC7PXasB9AxkeU2CDUp aUPrAODkuFWTgT0haobz k6sprmqkCjUvYTNw NMr6VFq4EBRwhXjsYbTp VAH8SaS5QKS8iGZvjC4e vYhlkscctB6uUni+UGF5 CUV3PR00FK42O3Zc PjwvdGFibGU+PHRhYmxl IHdpZHRoPScxMDAlJyBz uBaeVP8hBb8gGSGmARXl vTigkQQzTpVzl5ew YXB (more content not included)... Normal [facility] Coding Summary HTMLBase 64 OvqgzgcfNZt4qNv+PGhl YWQ+JC9HTQWtG62plZCt sV9FT5wHQT4KQKJMAMQV CK1KCC5tiLP8TXbqZ8Sx biAv ZsempEAxUZ76YYw1MHK8 dIhmQSduhG8agKIxU1b0 ZyVgQB32kL09TPktAMZw ZaZ3BoRzhhivzWQn D4mnClRhlXKfEsx+PHRh YmxlIHdpZHRoPScxMDAl ElWynYaoPM8cHp6vBNHp LWNvbGxhcHNlOiBj x2bhLYOeFNtpJP7kpYyi F9HonPP1JJGnt8a9Vh54 dHI+BHXqHQU1qNflOFof v380BgSld5gaUQC1 oHMjGRyoNJP4Z54cn8B9 YXBbRLOkZQJ4aHR6aZ0y xLjamcbkH7DlmLIeOpG7 WZT3yOVjiD2soNhg wfetnF8uVvp+K54MGG4Q FONEUU7KMcm9C5UtLgku dHI+QP08WKOpOE30aIQd hXSll8udhIh5KzUa FYMyZKR1uDwgAMwne6Vz KKGxH93zcQXrc0I5OMHg hNzgkMDsOyTnaSO4sP6g RZtvwluel4wvgokg Sdpyo1cwej28vU70V23p SJfiUMBmVCL3FIVwDHWl uHnxrf2rfE9mEo3+IDxj h9huo5jirMu9PdUj VYRqgrRsrZkdYSG8r6Bq Ty92P8TjmIfig3OePll0 bi65nPQln8Q2jGL6EQst HYPxtK1dQKjyUbO4 JGHtVnPlgF57kEVlLUyk Gy1vgQorbHarYS7vWDNy mkykFTKdkJ6oMPKafJJz vWmiGQ7tMUMhamsf c909CmPmRDL2BZNfwQLy K6GliN0hFmTyCIUpKCMz Y8GgmVFgVBuqO970FEvw NqN0WJAjdpPiK9Ou MDMctUgzJrQ1r3F0Sj1U n6WxeeecSEK0YStdSWR0 ZsV9FgJaGtJ4F1PbKol1 VXPwmXwuTS4iQ8Ha ISWyzmsrkvwnrHK2FCXh KOVuuN45xAKxPBbpDd2e z0S2r375DIGdBLFafY60 Yo1ztDuvMZAjvFAK lC9suediz2jifsnyDxEm PLGkKWy9LQm7CFPjwEld IqYeQSH7SqO5JWQ0pDYb bS4pnJituyqtnZ9d Oyc+M73paL8hNEA5XTH3 dxdjBPBfmkZlBS84FT51 N8SnXjajuUTklVO+PGRp plKuaGvdRZ6oNnUd g6ngu9KbZDtrV6OmPDQz ONfgHuq1DZTzQAF1qWH8 iX7gRXAvWKtnb4R3vOF3 N7DsrmDjyy2by8el NDQuTUmuU52dkMGgv9K2 CNRigMS5FMLabGwvGdMk uQ57Vmw+DORqsJvyb7Zu Oelut7ddq2xmtQq3 IjMwJSIgdmFsaWduPSJ0 y1IdDc93H93bYVzqEEYp GVIbWWLlLFMyrShldl9n aO8eGn7+PGNvbCB3 nCC0bH8lTMNhFoN2DRbt F294SfAzvVBjFoojg7di w4qikKm0MbSoMLSbvvCo mZjoSSK6w7GeQq76 K99eUHrhFKAvIZKyHTZh SGJaxLpsiq5aeO7zGg2+ KX5bo8vsrh20pP34rJE+ RXAjRCG8fDdnFAln MFZcmV8gFUhwXfX5SOBh MhEdvP19hQNyWTmbCj6b iNtfcXugSL7dJOLznqqw c601FcOfu8onNKLv fAIvTCndNVN2E27zz2D8 IXWbIDPuGOQ2pPB8qB1f bGlnbjogbGVmdDsgdmVy rYmtBRhhBKjtO073 IHRvcDsnPlBhdGllbnQg ThNwDJa7Z8MkKpa7HFJg rClzBB7bwPFbVLluWm0u rDseaWrbRM0mWLKz qpeoc828DeTaw4gmVLDn oLXvXLfaLYF2S29jq1Q0 XRAyOLCqEMZ7uLS9kK7e bGlnbjogbGVmdDsg ybQheFavJXwvDYkyZ253 IHRvcDsnPkJpcnRoIERh dBW9ES88JG94tTHbf0F2 tRU4G7StJLLmzwuq ncdmjWG6RXMwSGHknH18 Fy0wbVsxPx4oFNJwHYZ1 SRCddXVwC5TtpZ0dEyYw XHBoOTCpI7GxePAx YYawQ189ZYehJhD9RUXs jgStI3YuZEFxzTcfMvR6 k8X6To6DA3J1RW87AO80 aKLgm0R5pEL3L6Jt AXHbaegzqtsbiRS1QLGn YHKoyQ74Fv9wgJzyPa8h EIPqNWJ7HEVysNAkV8Iq hG4iKqTnRWCfLHQq S7UzvXYaQZllX666LMzz BkW4TMYntbHhI8LeAUCz uSseUgA9w2W6Yo7BNIx0 HJ33WN16uWDgv3I3 oYA9Z0NsCYSymsedcxoq hPX4GRKkTMYcyB47Ls9g xZgtWs1bIDBlRPT0YYSc vAPuS1FqlC0cOpCo VOCjMNWlT5QrjSLhLCnv J522HFkpXfG0HYHbjyHv P0AaQTYzqZyvTcW1a8X0 Jd0BXEZhRS65BMJ8 iXA9LT82PT17J0YdBcjd dGFibGU+PHRhYmxlIHdp ZHRoPScxMDAlJyBzdHls WC4qKi8uSWLxCRGr oXccdZOyFyIku7ndPRPb JGlnFI6xuLkfC5PxnRR0 NVYwk5m1Ip93V62pB5Pi dXA+VJGguUQ6yFD3 wC8uTxPkYfG5ZUrcU952 FfNwjQXxCgqpp7bnp7vg fSd0LqZ7JMKtakQtbNbs HXW5p7WhIg01Y34z IHdpZHRoPSIxNSUiIHZh rHtyjf8rbI6wDx0+PGNv qQS2mHT3qC4lKwLvRxA9 BCbbU953MmFdiDJx Wlnen9vlb1oaeJt2JaWl DXGfvoKqqDmrTQK5e5Qz Wb44F9EguFkco6UaEub9 sy08dDThl0M4pIV2 R1GqDQVtsjsilWFuhUyr BY0nITZhkdroWMIhfV5c YQKvT8x3KmFcKmV4RWzr G7BsifN3YWAskMJp FAfeDUS1A35ns5Q7MIQv XECnWCZ7qVL5vL9ecNta bjogbGVmdDsgdmVydGlj WZlqWXmeO116APUx kIbnCKYszG1xHHYchOKw yEzbRL5wWUDhumzsZaoB KLXWLJUHEEUKYvOCQI99 YH06oKKvr1X2lYI3 N4JqLGMrqdrugnzxqBX8 LCOiRNHnkE92xPGiBQbj Vh6mx6G9s629QFBtOPRo eY89Hz2deCtvHMJg tPQTxO4ymwgei2bminrl FaWzOTBxZCe1VVl1IPAy lGkyIsQaHIH6NdC4JBU5 kNSvdI5vjNbbxibe xX6eJxv+MDEvMDgvMTk4 ODwvdGQ+LCKdWRE9sXvn BTglLBSsnD9uJEMwS6u0 NrIoRrO5ARtjB2Km HXPhjipwUz88lR9ePzUx ObN9MYjtM6UpxlB9VLKi oYTcNOhyGBT9J63sj3D5 LJMjUUXyFSA4fHP3 fB4qtEeckidmcVWrhNrb wmCxsLgaOTxkBVfwP063 LLGwbXlyZtT7XGaxCNOs PF69TH82aALzc3N2 jKU3S7OjEMFokgibqepv qVY6MOZnWSCjxT73nNQx MSzyJn4lo3B2d041FXTh OTQueO19Yu3fsAxs UBEcfXRElU4qqdtae8bf skkqMyXtLHCdFXb1NVb1 FDHjtBtgXgCbMFK5WpJ4 CCC7oPReoC3urLah bqnhzJ0yBaa+RkVNQUxF SQ78UL78lLAwp5P6uGQ7 C0PyVTSldnwocqteeGO3 JSZkKEMedM19gQQs XSxgSk2xf2F5a855RYLt HUJpiK44Bt7frQfgPYKe hRQYfW4kliyqa6poqrlp YdYhFZYzOXg8GHn4 CBNwbTgtHcCwDBA8NbI3 CWX4xPFapR1cuClowmmk mH0qDet+XW3pmggqgqS1 UH52CU57B3ZiAnxt dGFibGU+PHRhYmxlIHdp ZHRoPScxMDAlJyBzdHls NK4ySm7uKDQgJHOekKgm xHNjViUdx3wgNKOe SWddHV6ghMxqB9AazTN0 IBOmq6a8Vb23L89qD7Pq dXA+USGcwBE9cDG3pD7b ApKzNtP5VTxmW919 HmFdxYKsAekey8teg3nm nVk0OnMsUJOqmiUjwWet JIU9j5QqOc13L94fHIru ZHRoPSIyMCUiIHZh iOirvx7mhF0yWb3+PGNv yNN8wJI6qF0cBnTaPuU5 CLcwB892AhVfvXLvDwvf H95xU2YezFA+PHRy Eqc7QROvtFnhIS5gsFYq FCxlEj2wDBP1UdRhUgNp LKmzO6BwYJJfpcqidlah kOX2DLPuDQUwvJ71 Ei0oyAufRv4nBUHyUPQ0 XINsmTKbH5TmgX5bAnDj LXMdCQKcE6XbpTIzPZvw E552ESxgNlY7PSWg avPdF3TvTFIikJodCfU8 d6C4Zi1YhKscgJUdPK1g GvUvKRb1S9BvDjz9KSMh mPayAL1boGKcJUmx Gi1hgEnavZtnCJ1kTLTi wwuoy228RmEjv7yzQYUw rZOkURyoTNM4X21uy5X3 ESLlXQEhMOT2dSM0 eZ9fkSwveirxtGFxmDsm ztVmjFtfNOuuAXcpV363 BLCdkDvgAxHYRln1F5Lc Cew8PNUbqTgkBQ3e vSXjFBdfJu3pzDnssUmy EC6dJZEdkscae340BnGo i1rxKZUtbVCeALitODY3 B70dr6V8STApHGKa HIS0eMR7dU0dbMvgvacl bGVmdDsgdmVydGljYWwt HNgmT382OSFojDkkYw0F Byl9M9NrMiu2NOKy rOkqPU7nnWPmZAvqIr4g zBlvrVauVA0pOKDomdyt e209AyKxc3vtRNSiqASk MOesOZE7M33tk1B9 GIQqLEUoGZS2uAO7eF4f bGlnbjogbGVmdDsgdmVy uKeuBMugLOlxH347VUQg cDsnPlBheWVyOjwv dGQ+KD94wj00V4IsFzss Wls4TFSwZYG8uLP9eG2q XKYnVDtum1F5xBC7O0Cv mgIcdn2et9wbNQUo ZTo (more content not included)... [facility] Ambulance Noteon 12-26-2021 Ambulance Note [phone] [id number] [email or web address] [facility] ED Clinical Summaryon 2021 ED Clinical Summary [facility] - Emergency Department [address] [place], [place] [id number] ED Clinical Summary PERSON INFORMATION Name: LOCO HICKS Age: 36 Years Sex: FEMALE : 1985 MRN: Acct#: Visit Reason: Dizziness; FACIAL NUMBNESS, DIZZINESS Arrival: 12/21/2021 18:23:41 Discharge: 12/22/2021 00:02:00 LOS: 000 05:39 Check In: 12/21/2021 18:23:41 Checkout:12/22/2021 00:02:00 Address: [address] [place] [id number] PCP: Provider, None PROVIDER INFORMATION Provider Role Assigned Unassigned Alvin Bryan ED Provider 12/21/2021 18:26:52 12/21/2021 18:30:20 Sanjuana Ramirez AGILE DEVELOPER Nurse 12/21/2021 18:29:17 12/21/2021 23:14:12 MARIAJOSE EDEN ED PA 12/21/2021 18:30:25 Kerline Cartagena AGILE DEVELOPER Nurse 12/21/2021 21:46:32 Kerline Merrill RN ED [...] - pharynx pink and moist. NECK: -Supple (ynsx-qf-eyrre): non-tender. CARD: -Rate and rhythm: Regular -Edema: No -Calf pain: No RESP: -Respiratory effort and chest excursion with respirations: Normal -Breath sounds equal bilaterally: Clear -Wheezes: No -Rales: No BACK: -Signs of pain with movement: No ABD: -Distended: No (more content not included)... Normal [facility] ED Patient Education Noteon 12-22-2021 ED Patient Education Note Education Materials [facility] ED Patient Summaryon 022 ED Patient Summary [facility] - Emergency Department [address] [place] [address] PATIENT DISCHARGE INSTRUCTIONS Patient Information Name: LOCO HICKS Age: 36 Years Date of : 1985 Reason For Visit: Dizziness; FACIAL NUMBNESS, DIZZINESS Arrival Time: 12/21/2021 18:23:41 Primary Care Physician: Provider, None Attending Physician: Alvin Bryan Comment: Visit Diagnosis: Diagnoses This Visit Dizziness ([id number]) Paresthesias (R20.2) Visual disturbance (H53.9) Prescription Information: If you have been given a prescription for narcotics, seek immediate medical attention if you have any difficulty breathing or any sudden status changes such as confusion and sleepiness. If you or anyone you know is experiencing suicidal thoughts, mental health, alcohol and/or drug addiction problems; contact the [facility] 17/02 Crisis Hotline -Text 4HOPE to [phone]. If you received any narcotics, sedation, or [...] and treatment you received today in the [facility] Emergency Department were for an urgent problem and are not intended as complete care. It is important for you to follow up with a doctor, nurse practitioner, or physician?s junior sales assistant for ongoing care. If your symptoms [...] so we can reach you if necessary. [facility] Emergency Department has provided you with a complete list of medications post discharge. Please inform your casting machine service operator/provider of your visit and for further instruction [...] for Disease Control and Prevention March 2014 [facility] MRI BRAIN W WO CONTRASTon MRI BRAIN [...] Ean Cedillo MD 12/22/21 Final result Normal [facility] MRI CERVICAL SPINE W WO CONT Ge [...] Ean Cedillo MD 12/22/21 Final result Normal [facility] [id number] 12-22-2021 SARS-CoV-2 (COVID-19) RNA SHELBI+probe Ql (Unsp spec) Not detected Normal NOTDET [facility] Comment on above: Result Comment: Rapid NAAT: [...] management decisions. Fact sheet for Healthcare Providers: https://www.fda.gov/media/271700/download Fact sheet for Patients: https://www.fda.gov/media/097233/download Methodology: Isothermal Nucleic Acid Amplification Performed By: #### C OVRB #### [id number] [place] [address] Band Straightener: Campbell Simmons MD SARS-CoV-2 (COVID-19) PCRon 12-22-2021 Employed in healthcare? No Invalid Interpretation Code [facility] Comment on above: Performed By: #### 6 [id number] ####[facility] (DEFAULT)[address] [place] [address] Group care resident? No Invalid Interpretation Code [facility] Comment on above: Performed By: #### 6 [id number] ####[facility] (DEFAULT)[address] [place] [address] In ICU? No Invalid Interpretation Code [facility] Comment on above: Performed By: #### 6 [id number] ####[facility] (DEFAULT)[address] [place] [address] status? Not Invalid Interpretation Code [facility] Comment on above: Performed By: #### 6 [id number] ####[facility] (DEFAULT)[address] [place] [address] SARS-CoV-2 (COVID-19) RNA SHELBI+probe Ql (Unsp spec) Not detected Normal Not Detected [facility] Comment on above: Result Comment: Perf ormed by PCR methodology. Performed By: #### 6 [id number] ####[facility] (DEFAULT)[address] [place] [address] SARS-CoV-2 (COVID-19) RNA SHELBI+probe Ql (Unsp spec) No Invalid Interpretation Code [facility] Comment on above: Performed By: #### 6 [id number] ####[facility] (DEFAULT)[address] [place] [address] Symptomatic as defined by CDC? No Invalid Interpretation Code [facility] Comment on above: Performed By: #### 6 [id number] ####[facility] (DEFAULT)[address] [place] [address] Transfer Noteon 12-22-2021 Transfer Note medication list sent with patient, Complete ED chart sent with patient. CD and med list sent w. patient to Hospital [Electronically Signed on: 12/22/2021 00:05 EDT] Nadya Garcia [Verified on: 12/22/2021 00:05 EDT] Nadya Garcia Normal [facility] Transfer Note [id number] #1.00[facility] Transfer Note [id number]. [id number] #1.00[facility] Transfer Note transport called, [facility] called for transport to [facility]. Willie stated will call when back in area from [facility] Trip. [Electronically Signed on: 12/21/2021 22:14 EDT] Nadya Garcia [Verified on: 12/21/2021 22:14 EDT] RadhaNadya [facility] .Auto Diff 1on 12-21-2021 Auto [place] % 7 % Normal 1-12 [facility] Comment on above: Performed By: #### 7 348693, [id number], 0389436, 99644659, 3268447, 8327094, 8066933968, 0352133, 7101188945 ####[facility] (DEFAULT)[address] [place] [address] Baso Abs# 0.0 x10 Normal 0.0-0.2 [facility] Comment on above: Performed By: #### 7 585908, [id number], 9089890, 00309078, 5287568, 6062174, 7272517929, 9312986, [id number] ####[facility] (DEFAULT)[address] [place] [address] 822[address] Basophils/100 WBC (Bld) 0.4 % Normal 0.2-2.0 [facility] Comment on above: Performed By: #### 7 919739, [id number], 3982081, 89741951, 8444180, 4575736, 0632007497, 4054515, 5813583143 ####[facility] (DEFAULT)[address] [place] [address] Eos Abs# 0.1 x10 Normal 0.0-0.4 [facility] Comment on above: Performed By: #### 7 159378, 4341224856, 2399230, 96630721, 2082113, 3985109, 5458775768, 8519878, 8637171083 ####[facility] (DEFAULT)[address] [place] [address] 78036 Eosinophils/100 WBC (Bld) 0.7 % Low 0.9-4.0 [facility] Comment on above: Performed By: #### 7 779770, 0674920187, 7237161, 68278245, 8084254, 3578742, 2155036457, 0947862, 0161274499 ####[facility] (DEFAULT)[address] [place] [address] 9[address] Lymph Abs# 3.2 x10 High 1.3-2.9 [facility] Comment on above: Performed By: #### 7 349723, 2193126540, 6839983, 92399592, 7174823, 5117758, 7884288665, 9793478, 9407743119 ####[facility] (DEFAULT)[address] [place] [address] 65041 Lymphocytes/100 WBC (Bld) 40 % Normal 14-48 [facility] Comment on above: Performed By: #### 7 878691, 6231544341, 9361741, 97461416, 8813061, 2122735, 5074395986, 5891968, 4531285567 ####[facility] (DEFAULT)[address] [place] [address] Cambria Abs# 0.6 x10 Normal 0.0-0.8 [facility] Comment on above: Performed By: #### 7 112845, 9749479722, 2818600, 55065343, 0336336, 3528943, 8688918739, 9848778, 2931793469 ####[facility] (DEFAULT)[address] [place] [address] 13767 Neut Abs# 4.3 x10 Normal 1.5-9.2 [facility] Comment on above: Performed By: #### 7 012087, 2367914058, 0687734, 34816758, 1234342, 9314032, 0056255645, 8998053, 6516124225 ####[facility] (DEFAULT)[address] [place] [address] 23057 Neutrophils/100 WBC (Bld) 53 % Normal 44-88 [facility] Comment on above: Performed By: #### 7 544891, 5532305157, 7728400, 81199765, 4364646, 2391135, 4109871668, 7021393, 8442566878 ####[facility] (DEFAULT)[address] [place] [address] CBC w/ Auto Diffon 2 Erythrocyte distribution width (RBC) [Ratio] 14.3 % Normal 11.5-15.0 [facility] Comment on above: Performed By: #### 7 381179, 3197518260, 7809407, 41216684, 7817168, 0803928, 8695569111, 0548652, 2431369706 ####[facility] (DEFAULT)[address] [place] [address] Hematocrit (Bld) [Volume fraction] 42.3 % High 33.7-40.4 [facility] Comment on above: Performed By: #### 7 210317, 9811901863, 5461706, 06164182, 5896968, 8226497, 8862717926, 6661613, 8358095021 ####[facility] (DEFAULT)[address] [place] [address] 99255 Hemoglobin (Bld) [Mass/Vol] 13.7 g/dL Normal 11.3-15.9 [facility] Comment on above: Performed By: #### 7 703074, 4006515038, 3772384, 89743171, 1152824, 7350408, 7219705751, 7221623, 1207439457 ####[facility] (DEFAULT)[address] [place] [address] 94681 Instr WBC 8.2 x10 Invalid Interpretation Code [facility] Comment on above: Performed By: #### 7 381871, 0209664599, 3169336, 45672424, 6522435, 1830642, 3018984013, 6979105, 1319116750 ####[facility] (DEFAULT)[address] [place] [address] 44778 Man Diff? Auto Normal [facility] Comment on above: Performed By: #### 7 565706, 3854944397, 5398403, 50707090, 9108254, 8458170, 8863401030, 5954166, 8718658376 ####[facility] (DEFAULT)[address] [place] [address] 55200 MCH (RBC) [Entitic mass] 31 pg Normal 24-34 [facility] Comment on above: Performed By: #### 7 603555, 6255232527, 7520111, 12624480, 4761178, 3026962, 8115897158, 2657650, 8111443719 ####[facility] (DEFAULT)[address] [place] [address] 10491 MCHC (RBC) [Mass/Vol] 32 g/dL Normal 26-37 [facility] Comment on above: Performed By: #### 7 981851, 0203896062, 6555596, 87211168, 9839629, 8301811, 8946267287, 3348179, 5696535556 ####[facility] (DEFAULT)[address] [place] [address] 72698 MCV (RBC) [Entitic vol] 96 fL Normal 81-100 [facility] Comment on above: Performed By: #### 7 450036, 5381560265, 3198644, 27553243, 4225412, 1316004, 4618493828, 7188105, 2916398275 ####[facility] (DEFAULT)[address] [place] [address] 91911 Platelet 363 x10 Normal 138-427 [facility] Comment on above: Performed By: #### 7 143941, 4877062342, 7480134, 41067217, 0963897, 1011758, 7531163047, 4311182, 8354274274 ####[facility] (DEFAULT)[address] [place] [address] 28855 Platelet mean volume (Bld) [Entitic vol] 10.2 fL Normal 6.3-10.2 [facility] Comment on above: Performed By: #### 7 254830, 4617957335, 3830630, 24010430, 8330651, 6734759, 7243992457, 2372392, 9848695512 ####[facility] (DEFAULT)[address] [place] [address] RBC 4.42 x10 Normal 3.70-5.30 [facility] Comment on above: Performed By: #### 7 940139, 7744861607, 8606807, 87806370, 0252159, 5461775, 9334681216, 3144975, 0872538160 ####[facility] (DEFAULT)[address] [place] [address] 21331 WBC 8.2 x10 Normal 3.5-10.5 [facility] Comment on above: Performed By: #### 7 099845, 3148959343, 3822767, 89148395, 9675511, 1408728, 1300026290, 5934749, 3572849712 ####[facility] (DEFAULT)[address] [place] [address] Standardon 12-21-2021 eGFR Non AA 57 mL/min/1.73m2 Invalid Interpretation Code [facility] Comment on above: Performed By: #### 7 834668, 2051854221, 3475819, 04732567, 2507719, 0448182, 1430774851, 5894933, 9234716096 ####[facility] (DEFAULT)[address] [place] [address] eGFR AA >60 Invalid Interpretation Code [facility] Comment on above: Result Comment: Facilities Technician nathalia Kidney disease could be indicated at eGFRs of less than 60 ml/min/1.73m2. Kidney Failure is indicated at less than 15 ml/min/1.73m2 Performed By: #### 7 667345, 8303158361, 1150624, 08711528, 7482074, 0189823, 1924584342, 1693297, 6100058644 ####[facility] (DEFAULT)[address] [place] [address] Albumin [Mass/Vol] 4.7 g/dL Normal 3.5-5.0 [facility] Comment on above: Performed By: #### 7 006191, 4016032524, 3822596, 32301230, 8128691, 1547351, 2135129625, 1396067, 0545593483 ####[facility] (DEFAULT)[address] [place] [address] 15642 Albumin/Globulin [Mass ratio] 1.1 {ratio} Low 1.4-2.6 [facility] Comment on above: Performed By: #### 7 153705, [id number], 4548272, 15605676, 8047118, 3351500, 8661642920, 8798115, [id number] ####[facility] (DEFAULT)[address] [place] [address] 94851 Alk Phos 99 IU/L High 32-91 [facility] Comment on above: Performed By: #### 7 539426, [id number], 6743330, 18802653, 9411336, 7048383, 5078275345, 5386885, 8942045103 ####[facility] (DEFAULT)[address] [place] [address] 59965 ALT [Catalytic activity/Vol] 32.0 U/L Normal 14.0-54.0 [facility] Comment on above: Performed By: #### 7 044317, [id number], 8731857, 34819291, 6137934, 2741746, 1672664724, 9503714, 9244320429 ####[facility] (DEFAULT)[address] [place] [address] 21720 Anion gap [Moles/Vol] 23.0 mmol/L High 5.0-19.0 [facility] Comment on above: Performed By: #### 7 032725, [id number], 1585955, 64276502, 5101321, 6765159, 1361094310, 4768455, 4834576109 ####[facility] (DEFAULT)[address] [place] [address] 46089 AST [Catalytic activity/Vol] 41 U/L Normal 15-41 [facility] Comment on above: Performed By: #### 7 476521, [id number], 4954538, 81155440, 1376747, 2841198, 4707186730, 8732051, 2207069626 ####[facility] (DEFAULT)[address] [place] [address] 71063 Bili Total 0.4 mg/dL Normal 0.3-1.2 [facility] Comment on above: Performed By: #### 7 114512, 8676808598, 6387480, 58983712, 9588162, 3639419, 4073281010, 7912525, 0031713665 ####[facility] (DEFAULT)[address] [place] [address] 89719 Calcium [Mass/Vol] 10.2 mg/dL Normal 8.9-10.3 [facility] Comment on above: Performed By: #### 7 880629, [id number], 1786384, 91267579, 4789981, 1150452, 3442318767, 3475632, 5013923438 ####[facility] (DEFAULT)[address] [place] [address] 27667 Chloride [Moles/Vol] 96 mmol/L Low 101-111 [facility] Comment on above: Performed By: #### 7 782754, 1223642282, 0343416, 01800072, 0923243, 9843763, 2791172006, 2553711, 1166569659 ####[facility] (DEFAULT)[address] [place] [address] 14855 CO2 [Moles/Vol] 24 mmol/L Normal 21-32 [facility] Comment on above: Performed By: #### 7 637696, 0146053999, 2838976, 88088494, 9551013, 1771402, 9772571336, 7340048, 0084226992 ####[facility] (DEFAULT)[address] [place] [address] 62917 Creatinine [Mass/Vol] 1.10 mg/dL Normal 0.60-1.30 [facility] Comment on above: Performed By: #### 7 935766, 1162630596, 9562690, 63162566, 0870741, 9653869, 5528586563, 6135584, 0515171882 ####[facility] (DEFAULT)[address] [place] [address] 60655 Globulin (S) [Mass/Vol] 4.2 g/dL Normal 1.5-4.3 [facility] Comment on above: Performed By: #### 7 447494, 5531048182, 9169388, 69543061, 8083558, 6443377, 8521970925, 9845185, 6216435307 ####[facility] (DEFAULT)[address] [place] [address] 28142 Glucose [Mass/Vol] 97.0 mg/dL Normal 74.0-118.0 [facility] Comment on above: Performed By: #### 7 598496, 8224510097, 6717571, 44250646, 7079506, 5997723, 2812964350, 7450425, 3551702223 ####[facility] (DEFAULT)[address] [place] [address] 61646 Osmolality 278 mOsm/L Invalid Interpretation Code [facility] Comment on above: Performed By: #### 7 986095, 9937420045, 9056295, 32954698, 9480211, 0164170, 3570389460, 5955839, 5823709796 ####[facility] (DEFAULT)[address] [place] [address] 40767 Potassium [Moles/Vol] 3.5 mmol/L Low 3.6-5.1 [facility] Comment on above: Performed By: #### 7 375221, 8406579908, 0493233, 99946727, 5146138, 9197947, 1061544303, 5580151, 5704108147 ####[facility] (DEFAULT)[address] [place] [address] 27431 Protein [Mass/Vol] 8.9 g/dL High 6.5-8.1 [facility] [place] Comment on above: Performed By: #### 7 485559, 0457394646, 4739265, 80324679, 3395673, 2194706, 9130516995, 3360024, 2441680961 ####[facility] (DEFAULT)[address] [place] [address] 79260 Sodium [Moles/Vol] 139.0 mmol/L Normal 136.0-144.0 [facility] Comment on above: Performed By: #### 7 044523, 5834545645, 1636492, 27762752, 3709409, 2257705, 3916128040, 1793385, 0718085313 ####[facility] (DEFAULT)[address] [place] [address] 37222 Urea nitrogen [Mass/Vol] 15 mg/dL Normal 8-26 [facility] Comment on above: Performed By: #### 7 620162, 6815538434, 8902302, 71775150, 0676155, 1734199, 0138271841, 5148587, 1596797511 ####[facility] (DEFAULT)[address] [place] [address] 93814 Urea nitrogen/Creatinine [Mass ratio] 14.0 mg/mg Normal 4.6-16.2 [facility] Comment on above: Performed By: #### 7 130163, 3317406561, 2684683, 80352075, 3570925, 3874627, 0468345230, 5345890, 4092592655 ####[facility] (DEFAULT)[address] [place] [address] Head or Brain w/o Contras ton [...] Ha 12/21/21 9:19 pm Technologist: Erwin CHAUDHARI [facility] D-Dimeron 12-21-2021 D-Dimer 0.49 mg/L FEU Normal 0.19-0.50 [facility] Comment on above: Result Comment: The [...] Liver cirrhosis ? Performed By: #### 7 736364, 1819165474, 0978335, 36978034, 3697864, 6522470, 4776120042, 9292726, 9736864058 ####[facility] (DEFAULT)[address] [place] [address] ED Note - Otheron 12-21-2021 ED Note - Other Neurology called back from [facility], on phone with Mariajose LLANES [Electronically Signed on: 12/21/2021 21:29 EDT] Nadya Garcia [Verified on: 12/21/2021 21:29 EDT] Nadya Garcia [facility] ED Note - Other paging Neurology through [facility] for consult for Mariajose LLANES [Electronically Signed on: 12/21/2021 21:12 EDT] Nadya Garcia [Verified on: 12/21/2021 21:12 EDT] Nadya Garcia [facility] ED Note - Physicianon 2021 ED Note - Physician Patient: LOCO HICKS Age: 36 years Sex: FEMALE : 1985 Associated Diagnoses: Paresthesias; Visual disturbance Author: MARIAJOSE EDNE Basic Information Time seen: Date & time [...] - pharynx pink and moist. NECK: -Supple ([id number]): non-tender. CARD: -Rate and rhythm: Regular -Edema: [...] I di (more content not included)... Normal [facility] ED Note-Nursingon 12-21-2021 ED Note-Nursing Web[employer] Architect assumed care for pt at 2124. Pt had fluids running at that time. Will continue to give the rest of the liter per VO from MARIO ALBERTO. PA also stated that after speaking with neuro, pt is to be transferred to [facility] for MRI and further evaluation. Normal [facility] Ethanol.on 12-21-2021 Ethanol Level 9.0 mg/dL High 0.0-5.0 [facility] Comment on above: Performed By: #### 2 [id number] #### [facility] (DEFAULT) [address] [place] [address] 12723 Extra Morgan 12-21-2021 Tube Collected Yes Invalid Interpretation Code [facility] Comment on above: Performed By: #### 2 314135, [id number] #### [facility] (DEFAULT) [address] [place] [address] 04090 Extra Redon 12-21-2021 Tube Collected Yes Invalid Interpretation Code [facility] Comment on above: Performed By: #### 7 740089, 4477469320, 5551872, 29460171, 9722098, 1600113, 3392789424, 9969171, 4597523061 #### [facility] (DEFAULT) [address] [place] [address] 49038 Magnesiumon 12-21-2021 Magnesium [Mass/Vol] 2.02 mg/dL Normal 1.80-2.50 [facility] Comment on above: Performed By: #### 7 863817, 0434844857, 9887442, 05130445, 2863840, 4845162, 3648844830, 7028191, 7712127766 ####[facility] (DEFAULT)[address] [place] [address] 99311 PTon 12-21-2021 INR Coag (PPP) [Relative time] 0.94 {INR} Normal 0.91-1.11 [facility] Comment on above: Performed By: #### 7 805754, 1864924242, 1414938, 63451336, 4799509, 1035331, 4342611761, 8672831, 7053745353 ####[facility] (DEFAULT)[address] [place] [address] PT 10.2 second(s) Normal 9.7-11.8 [facility] Comment on above: Performed By: #### 7 017029, 9760553535, 6188400, 90394304, 7696832, 6992617, 5231114760, 1335053, 6424202988 ####[facility] (DEFAULT)[address] [place] [address] 04821 PTTon 12-21-2021 PTT 26 second(s) Normal 25-35 [facility] Comment on above: Performed By: #### 7 950725, 9366418182, 4779641, 43712183, 0167649, 9019951, 3502722529, 0429104, 8802460590 ####[facility] (DEFAULT)[address] [place] [address] 18935 Test Urine 1 U Preg Negative Normal [facility] Comment on above: Performed By: #### 1 [id number], 506414197 ####[facility] (DEFAULT)[address] [place] [address] 59500 U Preg Internal Control Pass Normal [facility] Comment on above: Performed By: #### 1 [id number], 674240737 ####[facility] (DEFAULT)[address] [place] [address] 54841 Salicylateon 12-21-2021 Salicylate Lvl <4.0 Normal 0.0-30.0 [facility] Comment on above: Result Comment: Sali cylate ranges less than 30 mg/dL are considered to be therapeutic. Levels greater than 30 mg/dL are considered toxic and levels greater than 60 mg/dL may be lethal. Performed By: #### 2 417048, [id number] #### [facility] (DEFAULT) [address] [place] [address] 41481 TnI HSon 12-21-2021 Troponin I High Sensitivity <2 Normal <=15 [facility] Comment on above: Result Comment: Male Baseline Delta 1Hr (Note pg/mL=ng/L) <20pg/mL 50-60% >20pg/mL 20% Female Baseline Delta 1Hr <15pg/mL 50-60% >15pg/mL 20% Other Baseline Delta 1Hr <18ng/mL 50-60% >18ng/mL 20% ([employer] Guidelines February 2018) Performed By: #### 7 188794, 6410522622, 3098184, 32535296, 8044276, 5374612, 5880881793, 7452804, 0193916945 ####[facility] (DEFAULT)[address] [place] [address] 77058 Triage Panel 1212-21-2021 Triage Internal Control Pass Normal [facility] Comment on above: Performed By: #### 1 [id number] ####[facility] (DEFAULT)[address] [place] [address] 95137 U Amph Scr Negative Normal [facility] Comment on above: Performed By: #### 1 [id number] ####[facility] (DEFAULT)[address] [place] [address] 76317 U Vanesa Scr Negative [facility] Comment on above: Performed By: #### 1 580393284 ####[facility] (DEFAULT)[address] [place] [address] 22096 U Benzodia Scr Negative [facility] Comment on above: Performed By: #### 1 [id number] ####[facility] (DEFAULT)[address] [place] [address] 68773 U Cannab Scrn Negative [facility] Comment on above: Performed By: #### 1 [id number] ####[facility] (DEFAULT)[address] [place] [address] 84660 U Cocaine Scr Negative [facility] Comment on above: Performed By: #### 1 [id number] ####[facility] (DEFAULT)[address] [place] [address] 83124 U Methadone Scr Negative [facility] Comment on above: Performed By: #### 1 [id number] ####[facility] (DEFAULT)[address] [place] [address] 19228 U Methamp Scrn Negative [facility] Comment on above: Performed By: #### 1 [id number] ####[facility] (DEFAULT)[address] [place] [address] 23437 U Opiate Scr Negative [facility] Comment on above: Performed By: #### 1 [id number] ####[facility] (DEFAULT)[address] [place] [address] 51818 U Oxycod Scr Negative [facility] Comment on above: Performed By: #### 1 [id number] ####[facility] (DEFAULT)[address] [place] [address] 85870 U Phencyclidine Scr Negative [facility] Comment on above: Performed By: #### 1 [id number] ####[facility] (DEFAULT)[address] [place] [address] 14122 U Propoxyphene Scr Negative [facility] Comment on above: Performed By: #### 1 [id number] ####[facility] (DEFAULT)[address] [place] [address] 46005 U Tricyclic Antidepress Scr Negative [facility] Comment on above: Result Comment: Resu lts [...] PPX Propoxyphene (Norpropoxyphene): 300 ng/mL THC Cannabinoids (60-kuf-7-carboxy- -THC): 50 ng/mL TCA Tricyclic-Antidepressants (Desipramine): 300 ng/mL Performed By: #### 1 [id number] ####[facility] (DEFAULT)[address] [place] [address] Urine Source Clean Catch [facility] Comment on above: Performed By: #### 1 [id number] ####[facility] (DEFAULT)[address] [place] [address] UA w Culture if Ind Standard on 12-21-2021 Color (U) Yellow [facility] Comment on above: Performed By: #### 1 [id number], [id number] ####[facility] (DEFAULT)[address] [place] [address] Culture? Not Indicated Invalid Interpretation Code [facility] Comment on above: Result Comment: Resu lt created by rule GL_MAGR_ADD_UA_CULT1 Performed By: #### 1 [id number], [id number] ####[facility] (DEFAULT)[address] [place] [address] 79071 Glucose (U) [Mass/Vol] Negative [facility] Comment on above: Performed By: #### 1 061700390, [id number] ####[facility] (DEFAULT)[address] [place] [address] 16946 Ketones Ql (U) Negative [facility] Comment on above: Performed By: #### 1 901773210, [id number] ####[facility] (DEFAULT)[address] [place] [address] 25224 Micro? Not Indicated Invalid Interpretation Code [facility] Comment on above: Result Comment: Resu lt created by rule GL_MAGR_ADD_UA_MICRO Performed By: #### 1 [id number], [id number] ####[facility] (DEFAULT)[address] [place] [address] 85921 UA Bilirubin Negative Normal [facility] Comment on above: Performed By: #### 1 610863397, [id number] ####[facility] (DEFAULT)[address] [place] [address] 48170 UA Blood Negative Normal NEGATIVE [facility] Comment on above: Performed By: #### 1 [id number], [id number] ####[facility] (DEFAULT)[address] [place] [address] 90874 UA Clarity CLEAR Normal CLEAR [facility] Comment on above: Performed By: #### 1 [id number], [id number] ####[facility] (DEFAULT)[address] [place] [address] 16903 UA Leuk Est Negative Normal NEGATIVE [facility] Comment on above: Performed By: #### 1 [id number], [id number] ####[facility] (DEFAULT)[address] [place] [address] 01172 UA Nitrite Negative Normal NEGATIVE [facility] Comment on above: Performed By: #### 1 [id number], [id number] ####[facility] (DEFAULT)[address] [place] [address] 18991 UA pH 6.5 Normal 5-8 [facility] Comment on above: Performed By: #### 1 [id number], 523923106 ####[facility] (DEFAULT)[address] [place] [address] 59186 UA Protein Negative Normal NEGATIVE [facility] Comment on above: Performed By: #### 1 [id number], [id number] ####[facility] (DEFAULT)[address] [place] [address] 25350 UA Spec Grav <=1.005 Normal 1.001-1.035 [facility] Comment on above: Performed By: #### 1 [id number], [id number] ####[facility] (DEFAULT)[address] [place] [address] 86141 UA Urobilinogen 0.2 mg/dL Normal 0.2-1.0 [facility] Comment on above: Performed By: #### 1 [id number], [id number] ####[facility] (DEFAULT)[address] [place] [address] 62830 Breakpoint UA Normal [facility] Comment on above: Performed By: #### 1 [id number], [id number] ####[facility] (DEFAULT)[address] [place] [address] 66372 Urine Source Clean Catch Normal [facility] Comment on above: Performed By: #### 1 [id number], [id number] ####[facility] (DEFAULT)[address] [place] [address] 36919 XR Chest 2 Viewson 2 XR Chest [...] Signature): Víctor Bowen 12/21/21 9:38 pm Technologist: Obed BELLE Normal [facility] CARDIAC HUMIARA ADMITon 021 CK [Catalytic activity/Vol] 117 U/L Normal 30-[address] [facility] Comment on above: Performed By: #### T SH, CMADM, CMP #### [facility] [address], [place] [address] Nelida Lily CK.MB [Mass/Vol] 1.16 ng/mL Normal <=2.37 [facility] Comment on above: Performed By: #### T JOÃO LOCK, CMP #### [facility] [address] [place] [address] Nelida Bautista HSTROP <4.0 Normal 4.0-35.5 [facility] Comment on above: Result Comment: CUT- OFF POINTS HAVE BEEN ESTABLISHED BASED ON THE FOURTH UNIVERSAL DEFINITIONS OF MYOCARDIAL INFARCTION. THE UPPER REFERENCE LIMIT (URL) OF TROPONIN, DEFINED THE 99TH PERCENTILE OF cTnI DISTRIBUTION IN A REFERENCE POPULATION, HAS BEEN CONFIRMED THE DECISION THRESHOLD FOR CT DIAGNOSIS. Performed By: #### T JOÃO LOCK, CMP #### [facility] [address] [place] [address] Nelida Bautista NGA 41.0 ng/mL Normal <=61.[address] [facility] Comment on above: Performed By: #### T JOÃO LOCK, CMP #### [facility] [address] [place] [address] Nelida Bautista CBC AUTO DIFFon 02-23-2021 BASO # 0.1 103/ul Normal 0.0-0.1 [facility] Comment on above: Performed By: #### C BC #### [facility] [address] [place] [address] Nelida Bautista Basophils/100 WBC (Bld) 1.0 % Normal 0.2-2.[address] [facility] Comment on above: Performed By: #### C BC #### [facility] [address] [place] [address] Nelida Bautista EO # 0.1 103/ul Normal 0.0-0.[address] [facility] Comment on above: Performed By: #### C BC #### [facility] [address] [place] [address] Nelida Lily Eosinophils/100 WBC (Bld) 2.2 % Normal 0.9-7.[address] [facility] Comment on above: Performed By: #### C BC #### [facility] [address] [place] [address] Nelida Bautista Erythrocyte distribution width (RBC) [Ratio] 14.2 % Normal 11.0-15.0 [facility] Comment on above: Performed By: #### C BC #### [facility] [address] [place] [address] Nelida Bautista Hematocrit (Bld) [Volume fraction] 40.6 % Normal 36.0-48.0 [facility] Comment on above: Performed By: #### C BC #### [facility] [address] [place] [address] Nelida Bautista Hemoglobin (Bld) [Mass/Vol] 13.3 g/dL Normal 12.0-16.0 [facility] Comment on above: Performed By: #### C BC #### [facility] [address] [place] [address] Nelida Bautista IG # 0.02 10e3/ul Normal 0.00-0.03 [facility] Comment on above: Performed By: #### C BC #### [facility] [address] [place] [address] Nelida Bautista IG % 0.4 % Normal 0.0-0.5 [facility] Comment on above: Performed By: #### C BC #### [facility] [address] [place] [address] Nelida Bautista LYMPH # 1.7 103/ul Normal 1.2-3.8 [facility] Comment on above: Performed By: #### C BC #### [facility] [address] [place] [address] Nelida Bautista Lymphocytes/100 WBC (Bld) 34.6 % Normal 20.5-60.0 [facility] Comment on above: Performed By: #### C BC #### [facility] [address] [place], [place] [address] Nelida Bautista MANUAL DIFF REQ NO Normal [facility] Comment on above: Performed By: #### C BC #### [facility] [address] [place] [address] Nelida Bautista MCH (RBC) [Entitic mass] 31.5 pg Normal 26.7-34.0 [facility] Comment on above: Performed By: #### C BC #### [facility] [address], [place] [address] Nelida Bautista MCHC (RBC) [Mass/Vol] 32.8 g/dL Normal 29.9-35.2 [facility] Comment on above: Performed By: #### C BC #### [facility] [address], [place] Nelidajose Bautista MCV (RBC) [Entitic vol] 96.2 fL Normal 81.0-99.0 [facility] Comment on above: Performed By: #### C BC #### [facility] [address], [place] [address] Nelidajose Bautista MONO # 0.4 103/ul Normal 0.3-0.[address] [facility] Comment on above: Performed By: #### C BC #### [facility] [address] [place] [id number] Nelida Bautista Monocytes/100 WBC (Bld) 7.1 % Normal 1.7-12.0 [facility] Comment on above: Performed By: #### C BC #### [facility] [address] [place] [id number] Nelidajose Kimbleen NEUT # 2.7 103/ul Normal 1.4-6.[address] [facility] Comment on above: Performed By: #### C BC #### [facility] [address] [place] [id number] Nelida Bautista Neutrophils/100 WBC (Bld) 54.7 % Normal 43.0-75.[address] [facility] Comment on above: Performed By: #### C BC #### [facility] [address], [place] [address] Nelidajose Bautista Platelet mean volume (Bld) [Entitic vol] 9.8 fL Normal 9.5-13.[address] [facility] Comment on above: Performed By: #### C BC #### [facility] [address], [place] [address] Nelida Lily PLT 320 103/ul Normal 150-[address] [facility] Comment on above: Performed By: #### C BC #### [facility] [address] [place] [address] Nelida Bautista RBC 4.22 106/ul Normal 4.20-5.[address] [facility] Comment on above: Performed By: #### C BC #### [facility] [address] [place] [address] Nelida Bautista WBC 4.9 103/ul Normal 4.0-11.0 [facility] Comment on above: Performed By: #### C BC #### [facility] [address] [place] [address] STROKE HEAD WOon 02-24-20 [...] JANESSA SKINNER Date: 2021-02-23 13:52 Normal [facility] ER URINE PROFILEon 1 Bilirubin Ql (U) Negative Normal NEGATIVE [facility] Comment on above: Performed By: #### E RUR #### [facility] [address] [place], [place] [address] Nelida Bautista Clarity (U) CLEAR Normal CLEAR [facility] Comment on above: Performed By: #### E RUR #### [facility] [address] [place] [address] Nelida Bautista Color (U) LT. YELLOW Normal YELLOW [facility] Comment on above: Performed By: #### E RUR #### [facility] [address] [place], [place] [address] Nelida Lily ERUAHD A micrscopic examination will be performed if indicated. Normal [facility] Comment on above: Performed By: #### E RUR #### [facility] [address] [place] [address] Nelida Lily Glucose Ql (U) Negative Normal NEGATIVE [facility] Comment on above: Performed By: #### E RUR #### [facility] [address] [place] [address] Nelida Lily Hemoglobin Ql (U) Negative Normal NEGATIVE [facility] Comment on above: Performed By: #### E RUR #### [facility] [facility] [address] [place] [address] Nelida Lily Ketones Ql (U) Negative Normal NEGATIVE [facility] Comment on above: Performed By: #### E RUR #### [facility] [address] [place] [address] Nelida Lily LEUKOCYTES Negative Normal NEGATIVE [facility] Comment on above: Performed By: #### E RUR #### [facility] [address] [place] [address] Nelida Lily Nitrite Ql (U) Negative Normal NEGATIVE [facility] [place] [facility] Comment on above: Performed By: #### E RUR #### [facility] [address] [place] [address] Nelida Lily pH (U) 8.0 [pH] Normal 5-[address] [facility] Comment on above: Performed By: #### E RUR #### [facility] [address] [place] [address] Nelida Lily SPEC GRAVITY 1.020 Normal 1.005-<=1.025 [facility] Comment on above: Performed By: #### E RUR #### [facility] [address] [place] [address] Nelida Lily UA PROTEIN Negative Normal NEGATIVE/ TRACE [facility] Comment on above: Performed By: #### E RUR #### [facility] [address] [place] [address] Nelida Lily UR MICRO IND NOT INDICATED Normal [facility] Comment on above: Performed By: #### E RUR #### [facility] [address] [place] [address] Nelida Bautista Urobilinogen Qn (U) 0.2 {Jose Carlos'U}/dL Normal 0.2 - 1. 0 [facility] Comment on above: Performed By: #### E RUR #### [facility] [address] [place], [place] [id number] Nelida Bautista POINT OF CARE GLUCOSEon 01-27 Glucose [Mass/Vol] 95 mg/dL Normal 74-106 The [facility] Comment on above: Performed By: #### P OCGLUC #### [facility] [address] [place] [address] Nelida Bautista PREG HCG QUALon 02-23-2021 , QUAL Negative Normal NEGATIVE [facility] Comment on above: Performed By: #### P REG #### [facility] [address] [place] [address] Nelida Bautista PROF 14(COMP METB)on 021 Albumin [Mass/Vol] 3.6 g/dL Normal 3.5-5.0 [facility] Comment on above: Performed By: #### T JOÃO LOCK, CMP #### [facility] [address] [place] [address] Nelida Bautista Albumin/Globulin [Mass ratio] 0.9 {ratio} Normal [facility] Comment on above: Performed By: #### T JOÃO LOCK, CMP #### [facility] [address] [place] [address] Nelida Bautista ALP [Catalytic activity/Vol] 103 U/L Normal 38-[address] [facility] Comment on above: Performed By: #### T JOÃO LOCK, CMP #### [facility] [address] [place] [address] Nelida Bautista ALT [Catalytic activity/Vol] 35 U/L Normal 9-[address] [facility] Comment on above: Performed By: #### T JOÃO LOCK, CMP #### [facility] [address] [address] Nelida Lily Anion gap [Moles/Vol] 13.3 mmol/L Normal [facility] Comment on above: Performed By: #### T JOÃO LOCK, CMP #### [facility] [address] [address] Nelida Lily AST [Catalytic activity/Vol] 28 U/L Normal 14-[address] [facility] Comment on above: Performed By: #### T JOÃO LOCK, CMP #### [facility] [address] [address] Nelida Lily Bilirubin [Mass/Vol] 0.2 mg/dL Normal 0.2-1.[address] [facility] Comment on above: Performed By: #### T JOÃO LOCK, CMP #### [facility] [address] [place] [address] Nelida Lily Calcium [Mass/Vol] 9.0 mg/dL Normal 8.4-10.2 [facility] Comment on above: Performed By: #### T JOÃO LOCK, CMP #### [facility] [address] [address] Nelida Lily Chloride [Moles/Vol] 108 mmol/L Critically high 98-[address] [facility] Comment on above: Performed By: #### T JOÃO LOCK, CMP #### [facility] [address] [place] [address] Nelida Lily CO2 [Moles/Vol] 25.8 mmol/L Normal 22.0-30.0 [facility] Comment on above: Performed By: #### T JOÃO LOCK, CMP #### [facility] [address] [address] Nelida Lily Creatinine [Mass/Vol] 1.00 mg/dL Normal 0.52-1.[address] [facility] Comment on above: Performed By: #### T JOÃO LOCK, CMP #### [facility] [address] [address] Nelida Lily EGFR-AF THAI >60 Normal >=60 [facility] Comment on above: Performed By: #### T JOÃO LOCK, CMP #### [facility] [address], [place] [address] Nelida Lily EGFR-NON AF THAI >60 Normal >=[address] [facility] Comment on above: Performed By: #### T JOÃO LOCK, CMP #### [facility] [address], [place] [address] Nelida Lily Globulin (S) [Mass/Vol] 4.2 g/dL Normal [facility] Comment on above: Performed By: #### T JOÃO LOCK, CMP #### [facility] [address] [id number] Nelida Lily Glucose [Mass/Vol] 95 mg/dL Normal 74-106 [facility] Comment on above: Performed By: #### T JOÃO LOCK, CMP #### [facility] [address] [address] Nelida Lily Potassium [Moles/Vol] 4.1 mmol/L Normal 3.4-5.0 [facility] Comment on above: Performed By: #### T JOÃO LOCK, CMP #### [facility] [address] [id number] Nelida Lily Protein [Mass/Vol] 7.8 g/dL Normal 6.1-8.2 [facility] Comment on above: Performed By: #### T JOÃO LOCK, CMP #### [facility] [address] [id number] Nelida Lily Sodium [Moles/Vol] 143 mmol/L Normal 137-145 [facility] Comment on above: Performed By: #### T JOÃO LOCK, CMP #### [facility] [address] [id number] Nelida Lily Urea nitrogen [Mass/Vol] 10.0 mg/dL Normal 7.0-17.[address] [facility] Comment on above: Performed By: #### T JOÃO LOCK, CMP #### [facility] [address] [id number] Nelida Lily Urea nitrogen/Creatinine [Mass ratio] 10.0 mg/mg Normal [facility] Comment on above: Performed By: #### T JOÃO LOCK, CMP #### [facility] [address], [place] [address] Nelida Bautista TSHon 02-23-2021 TSH 1.157 uIU/mL Normal 0.470-4.680 The [facility] Comment on above: Performed By: #### T HADYE, RAYDM, CMP #### [facility] [address] [address] Nelida Lily TSH RANGE SEE BELOW Normal [facility] Comment on above: Result Comment: <0.3 4 UIU/ml HYPERTHYROID 0.34-5.60 UIU/ml EUTHYROID >5.60 UIU/ml HYPOTHYROID Performed By: #### T JOÃO LOCK, CMP #### [facility] [address] [address] Nelida Bautista XR CHEST 1 Von 02-23-2021 [...] JANESSA SKINNER Date: 2021-02-23 13:53 Normal [address] [facility] Encounters Encounter Date Encounter Type Care Provider Facility Start: 11-18-2023 End: 11-18-2023 ambulatory MARYANN ZACKERY Not Available Start: 10-21-2023 End: 10-21-2023 ambulatory SHAWNA RICHTER Not Available Start: 09-23-2023 End: 09-23-2023 ambulatory MARYANN ZACKERY Not Available Start: 08-22-2023 End: 08-22-2023 ambulatory MARYANN ZACKERY Not Available Start: 12-22-2021 End: 12-22-2021 ambulatory JARVIS Hankins [facility] Start: 02-23-2021 End: 02-23-[address] DOCTOR MISC Facility:[facility] Payers Date Payer Category Payer Unknown [id number] 1985 Unknown [id number] 2.16.84 [id number] 1987 Unknown [id number] 2.16.84 [id number] 1987 Unknown [id number] 2.16.84 [id number] 1987 Unknown [id number] 2.16.84 [id number] 1987 Unknown [id number] 2.16.84 [id number] 1959 Unknown [id number] Summary Purpose Family History No Family History Records FoundNo Family History Records FoundNo Family History Records FoundNo Family History Records Found Advance Directives No Advanced Directives Records FoundNo Advanced Directives Records FoundNo Advanced Directives Records FoundNo Advanced Directives Records Found Additional Source Comments INFORMATION SOURCE (unrecogn ized section and content) DATE CREATED AUTHOR 02/28/2021 [facility] DATE CREATED AUTHOR AUTHOR'S ORGANIZ ATION 12/24/2021 [facility] DATE CREATED AUTHOR AUTHOR'S ORGANIZ ATION 01/01/2022 [facility] DATE CREATED AUTHOR AUTHOR'S ORGANIZ ATION 11/19/2023 [facility] FOR RECORDS PERTAINING TO PATIENTS WHO [...] BE BASED ON THE PRIMARY CLINICAL RECORDS. [facility] [employer] [facility]. provides no warranty or guarantee of the accuracy or completeness of information in this document.
== END 2023-12-16 08:53 | disposition home or self-care (01) ==
LOC: NOMS 08:52
PROVIDERS: Visit Provider Obstetrics & Gynecology
DX: O09.529 Supervision of elderly multigravida, unspecified trimester (principal); Z3A.28 28 weeks gestation of pregnancy
CPT/HCPCS: 76816

== ENCOUNTER 2023-12-20 08:08 | Outpatient (OUT) | payer BC, SELFPAY ==
--- OUTSIDE RECORDS SUMMARY | 2023-12-20 08:12 | XMS_ITS | CCD ---
Author Organization [facility] Care Team Providers Care Core Assembly Supervisor Name Role Phone HAMZAH, DR OLSON Primary Care Unavailable PAY, DR OLSEN Admitting Unavailable PAY, DR OLSEN Attending Unavailable ZIEBER, DR JANESSA Davila Consulting Unavailable PAY, DR OLSEN Consulting Unavailable JARVIS RODRIGUEZ Referring Unavailable JARVIS RODRIGUEZ Primary Care Unavailable NERISSA CAMPBELLRAHMANYAM Consulting Unavail able CADEN CERNA Attending Unavailable CADEN CERNA Admitting Unavailable DAVIN GAGE Consulting Unavailable MARYANN VIZCARRA Attending Unavailable SHAWNA RICHTER Attending Unavailable MARYANN VIZCARRA Attending Unavailable SHAWNA RICHTER [...] Coding Summaryon 12-31-2021 Coding Summary HTMLBase 64 XnvhmdpyNOa5gWn+PGhl YWQ+ST4KDKVbA85cgHCk uR5QZ0lZME9ODCQECHTN PK1IGM2rqLI0JZiuZ0Ha biAv HwkbgHPcWB86ZKe0RFE7 rWcjFUzyhQ8ikXNyD2a6 ZtUiYL44mX04IEjrUVBl ViA2NpJqfgytzRTd B1tiDpHbkCFgXtq+PHRh YmxlIHdpZHRoPScxMDAl NwYnvYciZJ6rPa3xKPXt LWNvbGxhcHNlOiBj p5ttYOAwWOnyRY6jnWdz L5DttNC6YOIbx4u6Im23 dHI+KXYwVMG6bDnvPVtq d131GyAqx0mpQJM8 tVHsJWhcNHB7A68jj8Z2 GJDpAHXqNIX3yQL5eM6t iExgeidgK1RvcPNsIkH5 PRC8kOYhmK7glBwp iaqayB5lTsk+Z44DHT9A RYNBTZ7PHjs0B5HqJuxk dHI+DT93QVQvUC18nIYx kTBan8jqgWs2HqOk TCBcCCS1vFxwTMiua8Sv HHWqA06whEGlu1C0JJIq xVeliHWqUbVhaWK6cZ8k TTjfdcmml7ebuemr Jabld0fgue72nL85E65i TZogRMNeQNW1PRGdPIXu zCggyh8ymG3vKz9+IDxj j1rlf7osmEk3CzIq DDOhddOlaJctDUN4l6Td Yf83K2UzfRovv2EyGmx0 xs09xVKri6H3iOC7RFxu MRPfhA2eMYbbIkK9 EDAcOxHixM10vGLqNPmv Lc0agBqbcAjwNH1qIBSj uibwZIMjbL7uFFKpvFDs bIlcHX6kUCWueidy u864TqYuOHS4OVGnkHNq Q4PeoZ9oMeKrBCXeCPPj T3IkbOFeCXypG004VTen XcZ8EDPadgHsK3Ic CYMnqVimQaY0q4W8Gt1Q j2GeylxtPAG7VYbtQQH7 GtW5FkLpPmT3E7KwJlt8 YJNvfSwuME2zU7Fg SKTfwlrddzdvsWD2LWNe NZXgfN71pKKnBMixXw5b g3Y8j858IPMmRKMpgL39 Lq5cbBbuBPTwhSUM kV1hnooxu6lquatnQlNh XJVfIWd3XNx1FITmeFnw FgIaAWG4QgS5REF3dFDj hQ7otGzumlvbkG1c Oyc+E19tuN7oQDG5SXG2 fulgSHNnpbWzVB23BV39 N2UsWrfvsOMboTW+PGRp nbKwcDfnZL1sQlXf t2kgu3BiGFwpR0IjMKEg EJvfPpu5ZEIsVXA0uLJ7 fT9vLVLoQJlsk5L5dVQ6 H2PzzpDzrq9oz2um CAYfHFryP87qxFHfg3D1 OUIzxMO3XAVsmGqkJbBu vJ10Dmu+ETKwzVgab6Rk Nvajy1aek2uonZe7 IjMwJSIgdmFsaWduPSJ0 d1RhIf69Y74gGAupARXv GTLrSZPkEHUysSbnge3d cT1aJo6+PGNvbCB3 mUV0oF3jQDMdRiW7CNfr G112PdSgrGKlEzazb0gd a8kfsYc9GaZoSJDiizDp nBypJRV3m4PfKh80 A39dKDioBOSgTAAgEVPm BQRzdAlcwx7bbU0lJu0+ PJ4ew9egrw00qJ01pAP+ GVVyCJQ8aShsUYqz XXRfkF4wRWxeHaO2HTGp TiMpjB85gFFzEChnOm0f dLiqiJoiPF8tJBCytufz z244ZiHhe3aqRIJh jXDtMQufLXX7P23hs5C8 AYGmJVSjKKE5gGY8cQ3t bGlnbjogbGVmdDsgdmVy rEprAVmnHZudH624 IHRvcDsnPlBhdGllbnQg EoRtYDw6J3ZcUca7ZZRi rCzjNW5zlNGtQWniJt6y iKkseHvxHJ0yALWl lyxjq584EsLqs5kzMOJl dJMtORfvGSA3K42yd7Z5 ZGQqCXDcDTD5tGE0dF8y bGlnbjogbGVmdDsg ynIlyBieVMtzCHhyF041 IHRvcDsnPkJpcnRoIERh qLZ6GD76WZ11iYEkj4L9 oDA6K6MuGXZyrzlb zwxcgXR8PCYvHYWxwT94 Mp6exWefEd6iSKNeEDO7 IDIhfPWzG8QntC5tFbVu LKUcRQPhY6SizSYl HZsjS591EEiiQpI4NVOk vcFlI7SqIZGdiIgzKbS7 x2U9Sc2GT1M8LW76XL27 dJPpk7N9tGI7B1Ef XMQolccyeniuqER6KSEg GRInzQ60Bx7soMyfCh4l OBBsSBL5NZWomURiC3Gw uH5zVjQxQRPbKRNf B0YynUXwWMmhJ803EJrk ZzS7OBMiecLiE0JoYRQq dQwzSdF1i9N0Cy3JDJt9 UM03ZU25jKSpw9Y4 sPS4U1JgSVWbnbewfvax lGC1SWLeWPHqmK30Qr9e xCgqYo5oUPOhUHJ4ZOPh pPNyR9UpbW5eCdFl QSJaTIUfQ8QejLHzEJle B487EZchEcR7SJKgrbBc G1XzCBYqvMpcAzO3t9Y6 Zo2CGKEtNU87BOY1 lTR2PJ07LQ56W1VnZkoq dGFibGU+PHRhYmxlIHdp ZHRoPScxMDAlJyBzdHls FE0nWn4lSBPcKTQe iNdcxAKaOaGdi6ojLIGl ICxoLV5vpDtrK4EaaIV9 QIVoi0q5Kv14X65jM9Ed dXA+JTOlnXA4xJT7 zI1vCmNaRpY5QUgiV804 VmXbqYEhDdpzc7qvx6yp uGq7TwJ7SXJbxfRppBng RUA3r4OyWa52N82e IHdpZHRoPSIxNSUiIHZh rTcrsj0aoB9zUj8+PGNv kOI8kPJ7aP9eUbQzKlC5 CZhvB747FzFjdIRo Qllrg9pbo0rtoBd7TjSm OAUcaeXisTzpHMV6g5Pd Dt08E7RcqOsnr8DrAqn2 xh17cXYtz6Y8rKT0 N7MmWERqzkogjHLtwTyj YA5jDKFvairdIFGgsO2g WHMjQ5g9AqUaCiY0KOel O6JsfdV6AIGwdKZb XEgxNMM9C48yu8P9LMAz XFCcVPP5rXG9eN5wnRjf bjogbGVmdDsgdmVydGlj NHsdBJasU877JVIr cHxqSKBaeC2fEFDluJLh sGjvFL1nJWLjtwvhNmvQ OKFPXQESDFHSZsHNAZ45 ZN52bYVzp2O6vPS1 R8FqQESfupnvxfssfHT0 VJYdURYokZ16lFVzWUxh Ki7uu3O2m664VAYiZYAz hV71Zz4doTnySIYh xKSGsO6dvngaa4wjmbdw GaVjCYYcCCq1AVw6JSAr hQypOjVdMKX8VvD2VVF6 nINduB2wfYxwbjmc zF3hXbn+MDEvMDgvMTk4 ODwvdGQ+NPDvDVP5wXok DKlvSVHiwE3kKNQuC3f9 XjJgCwZ5EXndN3Az TJVqzgzyEf71wI0yIjQp ZvM9OYtwW6GpmpG3OOGd vYWjKPemJBJ4G08cv4H5 GREoKKKsJIO2bDS7 uZ2ebMtlnihuxZGkoDfg jkByiBohPPylDNgdE806 WJRagCigVdG7BLqeRFRn GW30DE71kBBru0F0 hPH6S9PuYITgtxgqovem qDR8IFUnXGGvmU64fIHs UUwfGo5sv4L9m966DIDb KLDjgX12Li6fiLhg GNLhkCPNdA3sfeenb8xv wuzvEbJuEJOePSq0YNg4 PUAkmNqzRsVvFWU7IvW5 UNZ1sCGngH4nfEjj ntuasF0hTdp+RkVNQUxF SX00OR24qYMzk6Y9gGH8 X7BbCAVottyiixeaoGQ0 LXWmFQJrrM36xDWj IPixSi0bn1A9s431VRQu GYBrnB31Bz9ekUxjEBDs nXOMbH2sywnzz3sawomw LnHyIYMmENy2IDo2 FMDgjExfJeMgSZQ2AxK5 OYI6lUVhiC3pjEnywpqi hW5jCfe+I3Z3W0TbQpjy dHI+LO73PQRuQV80 iDOkaZThj9uchMl7MxWc MFWiMNH3bNaaRSgrq5Gu IPGiQ77zuGTkx8N2ZLTc bGxhcHNlOyBlbXB0 bV5vRSoiaglgp8pbddyc Zgfjz8nrib08mR38V54g IHdpZHRoPSIzMCUiIHZh dRsxpg9kgZ6zNf6+ CUXmvDG7aYB1xW3vAgHh ZpS0YQlkT829StTrzNLu Wlovn5fdw2ceqJs2BuJq JSIgdmFsaWduPSJ0 j8HeMj35Z19tZFmmETKu HITtXVRxLIAayTqcio8f mP1iWy4+HC2pf9kzat32 dY50oZX+PHRkIHN0 mUqpOHebLUXtsN0lMLse TjE3LILrKnLktE18rXSk MMlnKb2mvRrubAyrLZ5p POQpdersg965YmSq h8opNNMbcTXtEYjuTVV5 R38mt5S6IPLjWTJwAZA3 oJP7kH6ovJyntwdkjOGz dDsgdmVydGljYWwt TYgrM981CEXwwTemHdEg jDNiR5oyanAPYS8wBavi dGQ+OJAuOZL7qAzaKMep PWSiwZ6wTIZtE3p5 HkOeEmO8LWlnB0NnodQ3 DVGvuZLeYQEprZEUxA0e mnzrn0naeqocQhJpAYKc ZNa3GHd5NOSwrMbu KqCwTQE2EaY5AXV1aDHn eJ0iuExwbrbmkI5pKqo+ RklOOjwvdGQ+PHRkIHN0 uEsaWMryTWUryR7c IQMtB3g2CgWzQwU0AYsh B7ApytV6CGCtrACoCSGf oPUMgW8wzjuof3eaxyqq ZkEoELClVEq1HNd3 OXNdoNesZhIhZAW0BdX2 GYE7pOJkiN8hsDtjcdbq bZ6nJjk+TVJOOjwvdGQ+ YQByYEH1zEshKZty TWWkdU7xZNOlD8y0IaQv DeS7XNxxR4RfskG1VGLh lNGoLCLtvAJVyG4ifhrq i2hoggyaDqBbPETh TTx6OSj1MBBurRpyFgSg KTE7UcI0IMU6oPWecX0y aWozxmrsaS8yBpg+UGF5 ITP8NU06FA73E1Iz PjwvdGFibGU+PHRhYmxl IHdpZHRoPScxMDAlJyBz pNkkOI2xSl4qBYKjZADi cTernQGpTiJjw3fg YXB (more content not included)... [facility] Coding Summary HTMLBase 64 MqgrqowdXUa7rXw+PGhl YWQ+LZ0KRHNbO83epCHp iK9MR0hCJY3QKTVGQUJD QB5IEZ2gfOO0KTfgO6Jl biAv HcxxdHMvHX04CUu5ASU7 zNakZKnziY2ihEPmC6s0 WjXqSC72mU06QKxiHIRd YeX1WoFuxatyvEFx S8nxMkGqcKAqMfz+PHRh YmxlIHdpZHRoPScxMDAl WtGoqXsvHL6uCw3sAQXc LWNvbGxhcHNlOiBj t6jtTACwTIrqFR9boQry H3JowYU5YOQhy8b5Kr78 dHI+VHMpGZY5mFciPDly m061QwToq9zuAPO7 fTCoAIyvZBD3W54rm8E0 ADUpAWHkCOQ2bTI2bD1e rTzfctneA9FwyQXpAsY3 ZJR4fYOoxA9bhJep qnkgeL7yWwb+M25DFA5H LKWLYZ4LJps7M9IaBqwe dHI+RY66RZGrQY59oNWh cBIos2tavYm5OiSl XLNdJRD3uOdgXLoyc5Vm SUFqK72yvHWly4E7MHBn tNmjaXCbCwOxoJA3vS2e GIqenbnzn3eafddu Kzakk3bqsf95cJ25E69x LJpuINVhJJR9WOXtWAFp sSgjix3jcL0sJm0+IDxj i3bfv0wwbVh4YrFe JXPdhwKtaLwdVEA1w0Wz Sr08L5TpjEmab7DtAql2 ai94aIUds2D9gJF5FMuj UTXhmX7xVTkcRcK1 LWYcVaUtoM76hCZzPHwf Hl7fhDmsiDzdNS4iAXQf bwwsFIXakI5kWDEtaSXx uLwnOD0kUGFaoeie a718KrCoNVD0MNPmjLBd R7GywN6dEhDxYPUnJNLx L2RgaQKyBGooA520DPvu NkD3VRIfrwKxT8Xx MUKziCmwElM5k5X5Fe8C v2VsmxljUEK2KHxxAKO6 MbR9SfSoSrA2R7FnHdp6 AOXwzUeeQL3nS9Rw KRRxbvdupwlmbGQ7EXQq HQWphF18jZDeSZtkIo0g d1A7r012JIAuKCVgoV26 Pm8hxBpaHXDvlCPD uO7htlvta3upniitQzVb XXEaGBg5OEn9NYPorFsl AmBpZSJ3UtZ9FBF9oCEb tW2crRcrtnvguV6b Oyc+U41jjF3yQBE2KOQ3 fguwSZVonlHtWA62ZL83 T8YmSssjiXAyxZA+PGRp qxSdbDybWJ2jDsSo l4loh1ChZYotU2SyRFNj GNpbFvj7DOZdOFD8tQY2 rD1jVTTgQOgty3Q0zLQ3 G6PrbkEdgx8lz1we OIUhZWaiJ04koPWer6P5 LJUynPY1LSDaaOmsNyHg pZ28Opq+OIDipUqqt5Tk Zicra5wae6vynIc2 IjMwJSIgdmFsaWduPSJ0 y0HhOe79J51cGInnFWCi TQIaDFFnYWAsiJuwoc6a gF3fUj6+PGNvbCB3 zUU2nL6mZNYkIuL0TPrf U187EtUimYQlJjxer9bf p2mzoKv6UeTxZMZxhhZx tFwyKSH9k1RzGu22 A09iMEmxSZIyVISkUGGd MFPhwSanmt6evM9cAr2+ DH5pg2hqhl54rP86oDG+ GDBdRZX1fZibWHvi CQLkzX7pJIdzLeG0OKPj RbDppR45iYKpMIynYr2q kPejcAtmZG4jGPLexfrz b732HkKcl5zuUXKh fJZzCQlkOEL0A54hf2Y9 FVSpCHNdVMV1iUW7gP9b bGlnbjogbGVmdDsgdmVy zRrlNMvwODsiZ746 IHRvcDsnPlBhdGllbnQg PpVtEEh5I8TwObu8JMRf zYvmGY0ziCSjIXbjZw3q dKzkqEfyPL4eVKSo zlhoj004XrIer2flRWYp nXTdWVtqOIG5G22qb8L0 XORwYOAtTPI2xGH1nM3k bGlnbjogbGVmdDsg dwKtzZetEOyvZDibV801 IHRvcDsnPkJpcnRoIERh mEI4RC57AW24hXIzl4J6 sXF6X2FnTJLggpct wciohUS8KBCnWZWjdQ13 Lr2itTciJw4fSTAmMDZ1 APEdfXMhB3OkrY2kMnUp MJJbUDFxY2GsrHIf JMgoI034LPgqUwH5QVEh rfDrI4TlSFYpfJoyXtH2 r5W3Br5QX3I5DS19AV28 aQKub9U9xFF8O3Id JGHjdbwjkacnwEN5MDYf BGLvlW04Ps1dsGqaJi5s VCToNBT9FLXhxRWuN7Yc uQ1yNgHaQZJuTMCm F9XpiEMlCKoyL440CEgh ToQ8LURyysQbN3OiHIEs aByfIvU4z5P8Ns9BVSw0 VP84NV00jSLee5P7 uOY0O9PcGCBblybdcnne nIZ1QWHzYQAdrT64Fe4a aEndAu4qCJXrTDT9QWTp iYMwT8YoiA3vEgOl WTEdTSPnR4IaeXJjKEvm L115THqpQvR7AGAxtoLr Y0PhRHIhgXjvDrE4m8D9 Yi2YIRCeTF77XZZ1 zFD7UT10TS27Y5YtXlqz dGFibGU+PHRhYmxlIHdp ZHRoPScxMDAlJyBzdHls JL4iTu5rMAOmKVFj tVmgvXOvYlGbk0nlGQWc TPgwFQ3cdOdhX1WxmXG2 IKAgw2w8Hn03U84zJ1Rf dXA+QKQrxAK6tTM0 pJ2fVyVqQcK3CTxiW457 ZzCboZApWjvuf1gsj6hw wGy1MjN5RKVwrjPodJwi MID9f6YqRw95Q59f IHdpZHRoPSIxNSUiIHZh xTxbet4nnQ4lCj0+PGNv kZY2nKY3iD0qFeCjTyB5 NEetU181JaMufTAn Azuhi9pqx8qltNb6RgZb MCYldoUzuBcbZYG7s1Wq Jj34R8FyjQidc4KfFto1 ur08pRZdb0A3bIH1 U0DcIHVmbbznmLKlmCpg YC5nIEAiekzsEGCcoH6q ZNAiO3f4KhOiNlR3AKgh V2ZcqlI0UDElpQBs XHmrYVJ6U36bx9V9XYSi KSExNEY6dSX6vD7axHzg bjogbGVmdDsgdmVydGlj TAwoTOimI022KNVn kYwcEHXksU6wLLRenOZg iPzvJL8rDMOhzlrvIldB XWZDQSHZYWBATaJQNW39 NT10rHIrr4X6bDU8 T0UnKKAofvnuglcucAQ4 OQNeJVCzkD96pQOkMEzz Dt7wn7X2r462BEOtHPVh bG04Ch7bbQzcLLTm gMGSvI2ywtuio4xiwzgi FuWxECCoDWr0FFm2RGWx fCcgGwPuXGP7LiV7UEX4 iUTcjY2ytOqizfkj dP4oHli+MDEvMDgvMTk4 ODwvdGQ+XFAuAGS3yKur QAieECRrwA4lMCBzY2h1 ZgKwHhH6LGhaJ1Wm ERUwtrfwZj19sN8bWgUi JoR9GKjeO7HmhwK2JSFb qMBwSFikAKP5E13mf7P5 AYDtMCJsGYT8dRE4 yR5vfUinpszjyVYyuUqu akBxhQakBOyxGMsgB425 TCTdiTqcDcV7RKxvLJBw XN42PE31kIQhk9M1 mCD5I1OpYRHwbicragqc cSA1RODhDHKqsN66nTHx FXiyBe4yp5W3r483ZZOx ONXijD91Up5yjCiq NEYvrDONrE3xscfid3it pflpZkNiIGLwAUk0JKf7 IGNajQgmYlQjFOE5RtS4 FWF4xCLipN2moSff rkvfrZ4sWgn+RkVNQUxF OP21UG90xQCuc9K6vRX4 O8HgFWAszvqvbnaizOF6 YGRmLYRfbM92kZCt NHbgUr6qn0J1u387XLMm UBHypJ95Ik3btNaxGYWz pTKOgR8jvwayl9ckyuhp DnVgTYPiJFx0ZYy3 QQSjnIpvUnYnZCR0BwX2 DVO0bGZikF7nhQpytnoz pC4qWmj+MW0eodvewpQ0 PR77EX99P7FhYmvo dGFibGU+PHRhYmxlIHdp ZHRoPScxMDAlJyBzdHls SE5oHm2jVKEtDJSlkDrt oHZpWhChi3fvPBYv ZJfgSB9sfTshO7RycNG1 QOAva9b6Iq51Y06rQ5Cr dXA+HOTaiXB3jTB8aS8c JrCuZjM9YRuoE618 IdWkmMGpHykgj1kqz6kx eWh1ZcPpEZMmxzOyzWcx QNE3m3MkVp72S51gAQqi ZHRoPSIyMCUiIHZh kGvbwk1kbX5wIo5+PGNv aQP2fMW2tN2rDzShCyW7 VSskZ354MhWfdLZfZajn E84nN5NhwKS+PHRy Sha2TJPbnSwlTC9ylCBt VWeeRd6iWZZ0BoVkGxFl NXdtR2KoURApukrfhcdl lTN8MMRzYDNvcC65 Vc9tdJqiTr9cQGLpBDA2 ZLXjgWVdS1KslP4qKxId BOJyBMCwS4EnwFJkHYhz B513QWrrOaC9PTZq blGiQ4SwFBGdlXvwThS2 b1H1Sh3QtLwkxVClSW7c KdGiSJp8A1BbRoa4ACGt dIqzXP5kpDDgVMcr Kz4yrPkizCuwIV3gUVOv zuerb505DxPrg1jmMWTs dVAsLHmpLOJ0E33cs4H9 DKAqCETwNJO0aAA2 jM8xdZmlcmcfqLUgsVra woNfiRqlVIdbOGgoT227 UGLvdJzmStMNQdx5O7Fj Qrf8AZAmnEmmBT5a jGOvEJwzIf6jfTxgaYmu TI0kZHPdctbxl763RmKe n0dwTLIhiUCzLTtvVUD3 E71yh3M4WZHyKZBg JRF6vVW5bM7boXiiwabr bGVmdDsgdmVydGljYWwt DPkxH064ODEijIheTk8V Yse8I7NyIzt2NXGu uFfeKQ4qdXIkQOkaFu1m eTtqmNakWR4oLNIemjpz k070TnNgb9ehOZUnhVQd CQhrYWO0U69cj0L8 ZOZfWUFzHHS5bKS4zD2l bGlnbjogbGVmdDsgdmVy hNxbZOhaDZrnR077UXYf cDsnPlBheWVyOjwv dGQ+ZM65xg91W0VyGjpx Hsu0HIIbRRT4fPR5pE1t MBTbEEcsu4V4eBJ7G2Zg xsBsbm4be9nkZYSy ZTo (more content not included)... [facility] Ambulance Noteon 12-26-2021 Ambulance Note [id number] [email or web address] [facility] ED Clinical Summaryon 2021 ED Clinical Summary [facility] - Emergency Department [address] [place], [place] [id number] ED Clinical Summary PERSON INFORMATION Name: LOCO HICKS Age: 36 Years Sex: FEMALE : 1985 MRN: Acct#: Visit Reason: Dizziness; FACIAL NUMBNESS, DIZZINESS Arrival: 12/21/2021 18:23:41 Discharge: 12/22/2021 00:02:00 LOS: 000 05:39 Check In: 12/21/2021 18:23:41 Checkout:12/22/2021 00:02:00 Address: [address] [place] [id number] PCP: Provider, None PROVIDER INFORMATION Provider Role Assigned Unassigned Alvin Bryan ED Provider 12/21/2021 18:26:52 12/21/2021 18:30:20 Sanjuana Ramirez TAPE DUPLICATOR Nurse 12/21/2021 18:29:17 12/21/2021 23:14:12 MARIAJOSE EDEN ED PA 12/21/2021 18:30:25 Kerline Cartagena TAPE DUPLICATOR Nurse 12/21/2021 21:46:32 Kerline Merrill RN ED [...] - pharynx pink and moist. NECK: -Supple ([id number]): non-tender. CARD: -Rate and rhythm: Regular -Edema: No -Calf pain: No RESP: -Respiratory effort and chest excursion with respirations: Normal -Breath sounds equal bilaterally: Clear -Wheezes: No -Rales: No BACK: -Signs of pain with movement: No ABD: -Distended: No (more content not included)... [facility] ED Patient Education Noteon 12-22-2021 ED Patient Education Note Education Materials [facility] ED Patient Summaryon 022 ED Patient Summary [facility] - Emergency Department [address] [place] [address] PATIENT DISCHARGE INSTRUCTIONS Patient Information Name: LOCO HICKS Age: 36 Years Date of : 1985 Reason For Visit: Dizziness; FACIAL NUMBNESS, DIZZINESS Arrival Time: 12/21/2021 18:23:41 Primary Care Physician: Provider, None Attending Physician: Alvin Bryan Comment: Visit Diagnosis: Diagnoses This Visit Dizziness ([id number]) Paresthesias (R20.2) Visual disturbance (H53.9) Prescription Information: If you have been given a prescription for narcotics, seek immediate medical attention if you have any difficulty breathing or any sudden status changes such as confusion and sleepiness. If you or anyone you know is experiencing suicidal thoughts, mental health, alcohol and/or drug addiction problems; contact the [facility] 17/02 Crisis Hotline -Text 4HOPE to 111369. If you received any narcotics, sedation, or [...] and treatment you received today in the [facility] Emergency Department were for an urgent problem and are not intended as complete care. It is important for you to follow up with a doctor, nurse practitioner, or physician?s payroll human resources assistant for ongoing care. If your symptoms [...] so we can reach you if necessary. [facility] Emergency Department has provided you with a complete list of medications post discharge. 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 Fact sheet for Healthcare Providers: https://www.fda.gov/media/169657/download Fact sheet for Patients: https://www.fda.gov/media/958593/download Methodology: Isothermal Nucleic Acid Amplification Performed By: #### C OVRB #### [place] [address] Traveler Changer: Campbell Simmons MD SARS-CoV-2 (COVID-19) PCRon 12-22-2021 Employed in healthcare? No Invalid Interpretation Code [facility] Comment on above: Performed By: #### 6 [id number] ####[facility] (DEFAULT)[address] [place] [address] Group care resident? No Invalid Interpretation Code [facility] Comment on above: Performed By: #### 6 [id number] ####[facility] (DEFAULT)[address] [place] [address] In ICU? No Invalid Interpretation Code [facility] Comment on above: Performed By: #### 6 [id number] ####[facility] (DEFAULT)[address] [place] [address] status? Not Invalid Interpretation Code [facility] Comment on above: Performed By: #### 6 [id number] ####[facility] (DEFAULT)[address] [place] [address] SARS-CoV-2 (COVID-19) RNA SHELBI+probe Ql (Unsp spec) Not detected Normal Not Detected [facility] Comment on above: Result Comment: Perf ormed by PCR methodology. Performed By: #### 6 [id number] ####[facility] (DEFAULT)[address] [place] [address] SARS-CoV-2 (COVID-19) RNA SHELBI+probe Ql (Unsp spec) No Invalid Interpretation Code [facility] Comment on above: Performed By: #### 6 [id number] ####[facility] (DEFAULT)[address] [place] [address] Symptomatic as defined by CDC? No Invalid Interpretation Code [facility] Comment on above: Performed By: #### 6 [id number] ####[facility] (DEFAULT)[address] [place] [address] Transfer Noteon 12-22-2021 Transfer Note medication list sent with patient, Complete ED chart sent with patient. CD and med list sent w. patient to Hospital [Electronically Signed on: 12/22/2021 00:05 EDT] Nadya Garcia [Verified on: 12/22/2021 00:05 EDT] Nadya Garcia Normal [facility] Transfer Note [id number] #1.00OTGTIFF Normal [facility] Transfer Note [id number] #1.00OTGTIFF [facility] Transfer Note transport called, [facility] called for transport to [facility]. Willie stated will call when back in area from [facility]. [Electronically Signed on: 12/21/2021 22:14 EDT] Nadya Garcia [Verified on: 12/21/2021 22:14 EDT] Nadya Garcia [facility] .Auto Diff 1on 12-21-2021 Auto Independence % 7 % Normal 1-12 [facility] Comment on above: Performed By: #### 7 775156, [id number], 0924349, 51278179, 9854359, 3510298, 2160666761, 5750167, [id number] ####[facility] (DEFAULT)[address] [place] [address] Baso Abs# 0.0 x10 Normal 0.0-0.2 [facility] Comment on above: Performed By: #### 7 758189, [id number], 6695996, 33452223, 9183202, 3672790, 2398044281, 8276618, [id number] ####[facility] (DEFAULT)[address] [place] [address] Basophils/100 WBC (Bld) 0.4 % Normal 0.2-2.0 [facility] Comment on above: Performed By: #### 7 207493, [id number], 2452652, 39675582, 6440037, 7426713, 3612609425, 3333957, 3632759870 ####[facility] (DEFAULT)[address] [place] [address] Eos Abs# 0.1 x10 Normal 0.0-0.4 [facility] Comment on above: Performed By: #### 7 732997, [id number], 1599240, 38782889, 8154655, 3475910, 4728748623, 9203207, [id number] ####[facility] (DEFAULT)[address] [place] [address]368 Eosinophils/100 WBC (Bld) 0.7 % Low 0.9-4.0 [facility] Comment on above: Performed By: #### 7 354996, 3810759849, 7713652, 57761093, 1161784, 0613687, 0088761417, 4780793, [id number] ####[facility] (DEFAULT)[address] [place] [address] Lymph Abs# 3.2 x10 High 1.3-2.9 [facility] Comment on above: Performed By: #### 7 725365, [id number], 5987845, 28149648, 7858935, 4249420, 0453863698, 6013433, [id number] ####[facility] (DEFAULT)[address] [place] [address]11 Lymphocytes/100 WBC (Bld) 40 % Normal 14-48 [facility] Comment on above: Performed By: #### 7 003745, [id number], 5238624, 00755707, 8283506, 8841342, 0008696804, 0530660, 2925687804 ####[facility] (DEFAULT)[address] [place] [address] Independence Abs# 0.6 x10 Normal 0.0-0.8 [facility] Comment on above: Performed By: #### 7 536191, 7870574074, 0209974, 37895813, 5710890, 4099755, 9715082628, 5659824, 6157922851 ####[facility] (DEFAULT)[address] [place] [address] 40671 Neut Abs# 4.3 x10 Normal 1.5-9.2 [facility] Comment on above: Performed By: #### 7 947717, 0431937118, 2638727, 37709636, 5649079, 8168690, 7040238918, 5825192, 2918810043 ####[facility] (DEFAULT)[address] [place] [address] 01425 Neutrophils/100 WBC (Bld) 53 % Normal 44-88 [facility] Comment on above: Performed By: #### 7 031436, 5209982985, 8478608, 36031646, 1064520, 8048685, 7266722512, 6807906, 4599383395 ####[facility] (DEFAULT)[address] [place] [address] CBC w/ Auto Diffon 2 Erythrocyte distribution width (RBC) [Ratio] 14.3 % Normal 11.5-15.0 [facility] Comment on above: Performed By: #### 7 519930, 3572489995, 6544070, 63834170, 7247573, 1754478, 3478860593, 2535260, 0721573638 ####[facility] (DEFAULT)[address] [place] [address] Hematocrit (Bld) [Volume fraction] 42.3 % High 33.7-40.4 [facility] Comment on above: Performed By: #### 7 238586, 2024397963, 2326903, 18948448, 3027839, 8151035, 6484506611, 9904010, 7638407574 ####[facility] (DEFAULT)[address] [place] [address] Hemoglobin (Bld) [Mass/Vol] 13.7 g/dL Normal 11.3-15.9 [facility] Comment on above: Performed By: #### 7 216128, 8652817647, 6514967, 48616060, 7235704, 2739643, 0980551937, 9810900, 4078874553 ####[facility] (DEFAULT)[address] [place] [address] Instr WBC 8.2 x10 Invalid Interpretation Code [facility] Comment on above: Performed By: #### 7 027692, 6344801492, 5171999, 06173386, 6851612, 5367454, 7461709032, 7880090, 6307688611 ####[facility] (DEFAULT)[address] [place] [address]195 Man Diff? Auto Normal [facility] Comment on above: Performed By: #### 7 113034, 1126148109, 7557198, 21011300, 5032490, 1010224, 1358698280, 6871704, 4583462046 ####[facility] (DEFAULT)[address] [place] [address] 87990 MCH (RBC) [Entitic mass] 31 pg Normal 24-34 [facility] Comment on above: Performed By: #### 7 968273, 1347043690, 8977568, 10430450, 5888067, 0502233, 3488307940, 0712313, 6929564894 ####[facility] (DEFAULT)[address] [place] [address] 41719 MCHC (RBC) [Mass/Vol] 32 g/dL Normal 26-37 [facility] Comment on above: Performed By: #### 7 158871, 9816545523, 7990593, 23388995, 5759860, 5312886, 0617266502, 2559474, 2386729749 ####[facility] (DEFAULT)[address] [place] [address] 22049 MCV (RBC) [Entitic vol] 96 fL Normal 81-100 [facility] Comment on above: Performed By: #### 7 037107, 1155767815, 4025867, 09775224, 2349219, 2452687, 5751794709, 2669297, 6493378683 ####[facility] (DEFAULT)[address] [place] [address] 53059 Platelet 363 x10 Normal 138-427 [facility] Comment on above: Performed By: #### 7 767688, 7131416391, 7429833, 83089189, 6868283, 3529244, 3950699727, 0056510, 2654656715 ####[facility] (DEFAULT)[address] [place] [address] 22774 Platelet mean volume (Bld) [Entitic vol] 10.2 fL Normal 6.3-10.2 [facility] Comment on above: Performed By: #### 7 961245, 5063373946, 2916546, 25349160, 5090983, 2794109, 5698831214, 8740112, 4157516109 ####[facility] (DEFAULT)[address] [place] [address] RBC 4.42 x10 Normal 3.70-5.30 [facility] Comment on above: Performed By: #### 7 807301, 9184535237, 4205619, 52345020, 1410377, 1029865, 4399508751, 4262522, 6150090034 ####[facility] (DEFAULT)[address] [place] [address] 10504 WBC 8.2 x10 Normal 3.5-10.5 [facility] Comment on above: Performed By: #### 7 710953, 5402024553, 6654337, 61941478, 4673572, 0844573, 0106906963, 7152871, [id number] ####[facility] (DEFAULT)[address] [place] [address] [facility] Standardon 12-21-2021 eGFR Non AA 57 mL/min/1.73m2 Invalid Interpretation Code [facility] Comment on above: Performed By: #### 7 217369, [id number], 4555470, 13786385, 0802197, 8763709, 0236432635, 5478432, [id number] ####[facility] (DEFAULT)[address] [place] [address] eGFR AA >60 Invalid Interpretation Code [facility] Comment on above: Result Comment: Character Actor nathalia Kidney disease could be indicated at eGFRs of less than 60 ml/min/1.73m2. Kidney Failure is indicated at less than 15 ml/min/1.73m2 Performed By: #### 7 710493, [id number], 4593167, 24328499, 1321568, 6848824, 0456580046, 6127921, [id number] ####[facility] (DEFAULT)[address] [place] [address] Albumin [Mass/Vol] 4.7 g/dL Normal 3.5-5.0 [facility] Comment on above: Performed By: #### 7 517251, [id number], 0704723, 59671045, 2343067, 6037296, 5086901038, 8760854, 7881850515 ####[facility] (DEFAULT)[address] [place] [address] 12480 Albumin/Globulin [Mass ratio] 1.1 {ratio} Low 1.4-2.6 [facility] Comment on above: Performed By: #### 7 382011, [id number], 1214659, 62502488, 7051004, 5976302, 9643453904, 1944231, [id number] ####[facility] (DEFAULT)[address] [place] [address] 35370 Alk Phos 99 IU/L High 32-91 [facility] Comment on above: Performed By: #### 7 415241, 6851708096, 8319888, 97064469, 8299267, 6079890, 7410027584, 7318116, 2489386927 ####[facility] (DEFAULT)[address] [place] [address] 01738 ALT [Catalytic activity/Vol] 32.0 U/L Normal 14.0-54.0 [facility] Comment on above: Performed By: #### 7 017487, [id number], 7252376, 72939623, 6800981, 0384761, 4878967835, 6222819, 9241241264 ####[facility] (DEFAULT)[address] [place] [address] 52611 Anion gap [Moles/Vol] 23.0 mmol/L High 5.0-19.0 [facility] Comment on above: Performed By: #### 7 781012, [id number], 8003465, 56244036, 7605148, 9708395, 3526406654, 4017999, 3497833662 ####[facility] (DEFAULT)[address] [place] [address] 87940 AST [Catalytic activity/Vol] 41 U/L Normal 15-41 [facility] Comment on above: Performed By: #### 7 488425, [id number], 5386646, 10334626, 4404091, 9257909, 3370212413, 9552170, 3379432827 ####[facility] (DEFAULT)[address] [place] [address] 23126 Bili Total 0.4 mg/dL Normal 0.3-1.2 [facility] Comment on above: Performed By: #### 7 997242, 3597473688, 2553797, 60735881, 2897306, 6487528, 6028759431, 4668519, 6680864083 ####[facility] (DEFAULT)[address] [place] [address] 53032 Calcium [Mass/Vol] 10.2 mg/dL Normal 8.9-10.3 [facility] Comment on above: Performed By: #### 7 887559, 8246733736, 9249509, 57838746, 0384514, 3304401, 3244468892, 6265558, 5284961600 ####[facility] (DEFAULT)[address] [place] [address] 11931 Chloride [Moles/Vol] 96 mmol/L Low 101-111 [facility] Comment on above: Performed By: #### 7 668673, 6963193685, 9024313, 41119787, 8009031, 4026891, 0664156285, 1677695, 7329951968 ####[facility] (DEFAULT)[address] [place] [address] 87285 CO2 [Moles/Vol] 24 mmol/L Normal 21-32 [facility] Comment on above: Performed By: #### 7 639089, 0886314092, 4856952, 19756709, 1222321, 8140013, 5281654944, 7508477, 2609324736 ####[facility] (DEFAULT)[address] [place] [address] 16696 Creatinine [Mass/Vol] 1.10 mg/dL Normal 0.60-1.30 [facility] Comment on above: Performed By: #### 7 237358, 1906901865, 6817849, 50388289, 4682193, 4484364, 5722498447, 5376018, 7127007054 ####[facility] (DEFAULT)[address] [place] [address] 07620 Globulin (S) [Mass/Vol] 4.2 g/dL Normal 1.5-4.3 [facility] Comment on above: Performed By: #### 7 687220, 7401019892, 6467620, 29755016, 9165363, 3265227, 2562437620, 9934526, 0650851356 ####[facility] (DEFAULT)[address] [place] [address] 04051 Glucose [Mass/Vol] 97.0 mg/dL Normal 74.0-118.0 [facility] Comment on above: Performed By: #### 7 472241, 0589350560, 5271261, 74106429, 5315736, 9692031, 5518702003, 2601100, 0303570038 ####[facility] (DEFAULT)[address] [place] [address] 66425 Osmolality 278 mOsm/L Invalid Interpretation Code [facility] Comment on above: Performed By: #### 7 356978, 8358100680, 2612702, 67692149, 1389469, 2820337, 0795789385, 5264297, 4137735983 ####[facility] (DEFAULT)[address] [place] [address] 74382 Potassium [Moles/Vol] 3.5 mmol/L Low 3.6-5.1 [facility] Comment on above: Performed By: #### 7 516397, 0579616292, 0541894, 62405388, 2650612, 9500999, 0798050378, 9075211, 7733966741 ####[facility] (DEFAULT)[address] [place] [address] 82219 Protein [Mass/Vol] 8.9 g/dL High 6.5-8.1 [facility] Comment on above: Performed By: #### 7 518955, 4824544451, 9366727, 71191409, 8866964, 6840965, 7035275254, 9306449, 9766751797 ####[facility] (DEFAULT)[address] [place] [address] 19849 Sodium [Moles/Vol] 139.0 mmol/L Normal 136.0-144.0 [facility] Comment on above: Performed By: #### 7 251452, 6818393744, 3186955, 29568534, 8667735, 6415499, 2016421933, 3697449, 3162081984 ####[facility] (DEFAULT)[address] [place] [address] 82452 Urea nitrogen [Mass/Vol] 15 mg/dL Normal 8-26 [facility] Comment on above: Performed By: #### 7 798629, 6870827112, 7820669, 21640609, 7082509, 0530373, 1400736236, 1705316, 4480123239 ####[facility] (DEFAULT)[address] [place] [address] 55960 Urea nitrogen/Creatinine [Mass ratio] 14.0 mg/mg Normal 4.6-16.2 [facility] Comment on above: Performed By: #### 7 296839, 9024397593, 2010678, 53328292, 9597503, 8602050, 0151886428, 2152609, 6320098803 ####[facility] (DEFAULT)[address] [place] [address] Head or Brain w/o Contras ton [...] Ha 12/21/21 9:19 pm Technologist: Erwin CHAUDHARI [facility] D-Dimeron 12-21-2021 D-Dimer 0.49 mg/L FEU Normal 0.19-0.50 [facility] Comment on above: Result Comment: The INNOVANCE [...] Liver cirrhosis ? Performed By: #### 7 229084, 3993381463, 5736074, 07329983, 7049151, 1498027, 2095513774, 4011278, 9795801752 ####[facility] (DEFAULT)[address] [place] [address] ED Note - Otheron 12-21-2021 ED Note - Other Neurology called back from [facility], on phone with Mariajose LLANES [Electronically Signed on: 12/21/2021 21:29 EDT] Nadya Garcia [Verified on: 12/21/2021 21:29 EDT] Nadya Garcia [facility] ED Note - Other paging Neurology through [facility] for consult for Mariajoes LLANES [Electronically Signed on: 12/21/2021 21:12 EDT] Nadya Garcia [Verified on: 12/21/2021 21:12 EDT] Nadya Garcia [facility] ED Note - Physicianon 2021 ED [...] - pharynx pink and moist. NECK: -Supple (reha-mf-eorxm): non-tender. CARD: -Rate and rhythm: Regular -Edema: [...] I di (more content not included)... Normal [facility] ED Note-Nursingon 12-21-2021 ED Note-Nursing Pet Ambassador assumed care for pt at 2124. Pt had fluids running at that time. Will continue to give the rest of the liter per VO from MARIO ALBERTO. PA also stated that after speaking with neuro, pt is to be transferred to [facility] for MRI and further evaluation. Normal [facility] Ethanol.on 12-21-2021 Ethanol Level 9.0 mg/dL High 0.0-5.0 [facility] Comment on above: Performed By: #### 2 [id number] #### [facility] (DEFAULT) [address] [place] [address] 07236 Extra Trenton 12-21-2021 Tube Collected Yes Invalid Interpretation Code [facility] Comment on above: Performed By: #### 2 152771, [id number] #### [facility] (DEFAULT) [address] [place] [address] 38381 Extra Redon 12-21-2021 Tube Collected Yes Invalid Interpretation Code [facility] Comment on above: Performed By: #### 7 623399, 9004026220, 5724185, 33183166, 0558634, 8182300, 5231490228, 7738260, 6144746179 #### [facility] (DEFAULT) [address] [place] [address] 76458 Magnesiumon 12-21-2021 Magnesium [Mass/Vol] 2.02 mg/dL Normal 1.80-2.50 [facility] Comment on above: Performed By: #### 7 600792, 2244809643, 9501023, 60130315, 0562638, 1656859, 3365434118, 3459297, 3023638911 ####[facility] (DEFAULT)[address] [place] [address] PTon 12-21-2021 INR Coag (PPP) [Relative time] 0.94 {INR} Normal 0.91-1.11 [facility] Comment on above: Performed By: #### 7 640033, 3286456382, 5836044, 44774728, 1014495, 1628876, 2391908965, 5047886, 1963592336 ####[facility] (DEFAULT)[address] [place] [address] PT 10.2 second(s) Normal 9.7-11.8 [facility] Comment on above: Performed By: #### 7 544709, 0699113633, 8057157, 08320926, 5911644, 1251236, 2298386914, 5566330, 4170112013 ####[facility] (DEFAULT)[address] [place] [address] 19216 PTTon 12-21-2021 PTT 26 second(s) Normal 25-35 [facility] Comment on above: Performed By: #### 7 670338, 8609945492, 9495879, 44322158, 5517394, 6874203, 1984634491, 1856560, 1252753270 ####[facility] (DEFAULT)[address] [place], [place] [address] Test Urine 1 U Preg Negative Normal [facility] Comment on above: Performed By: #### 1 475173243, 647612674 ####[facility] (DEFAULT)[address] [place] [address] U Preg Internal Control Pass Normal [facility] Comment on above: Performed By: #### 1 [id number], [id number] ####[facility] (DEFAULT)[address] [place] [address] 84078 Salicylateon 12-21-2021 Salicylate Lvl <4.0 Normal 0.0-30.0 [facility] Comment on above: Result Comment: Sali cylate ranges less than 30 mg/dL are considered to be therapeutic. Levels greater than 30 mg/dL are considered toxic and levels greater than 60 mg/dL may be lethal. Performed By: #### 2 344024, [id number] #### [facility] (DEFAULT) [address] [place] [address] 38105 TnI HSon 12-21-2021 Troponin I High Sensitivity <2 Normal <=15 [facility] Comment on above: Result Comment: Male Baseline Delta 1Hr (Note pg/mL=ng/L) <20pg/mL 50-60% >20pg/mL 20% Female Baseline Delta 1Hr <15pg/mL 50-60% >15pg/mL 20% Other Baseline Delta 1Hr <18ng/mL 50-60% >18ng/mL 20% ([employer] [employer] Guidelines February 2018) Performed By: #### 7 411540, 4849559469, 2822560, 37600337, 4135178, 2308212, 3676006864, 4657208, 8846134439 ####[facility] (DEFAULT)[address] [place] [address] 26320 Triage Panel 1212-21-2021 Triage Internal Control Pass Normal [facility] Comment on above: Performed By: #### 1 [id number] ####[facility] (DEFAULT)[address] [place] [address] 04953 U Amph Scr Negative Normal [facility] Comment on above: Performed By: #### 1 [id number] ####[facility] (DEFAULT)[address] [place] [address] 13863 U Vanesa Scr Negative [facility] Comment on above: Performed By: #### 1 [id number] ####[facility] (DEFAULT)[address] [place] [address] 06849 U Benzodia Scr Negative Normal [facility] Comment on above: Performed By: #### 1 [id number] ####[facility] (DEFAULT)[address] [place] [address] 95612 U Cannab Scrn Negative [facility] Comment on above: Performed By: #### 1 [id number] ####[facility] (DEFAULT)[address] [place] [address] 86965 U Cocaine Scr Negative [facility] Comment on above: Performed By: #### 1 [id number] ####[facility] (DEFAULT)[address] [place] [address] 07931 U Methadone Scr Negative [facility] Comment on above: Performed By: #### 1 [id number] ####[facility] (DEFAULT)[address] [place] [address] 18664 U Methamp Scrn Negative [facility] Comment on above: Performed By: #### 1 [id number] ####[facility] (DEFAULT)[address] [place] [address] 38723 U Opiate Scr Negative [facility] Comment on above: Performed By: #### 1 [id number] ####[facility] (DEFAULT)[address] [place] [address] 94165 U Oxycod Scr Negative [facility] Comment on above: Performed By: #### 1 [id number] ####[facility] (DEFAULT)[address] [place] [address] 33627 U Phencyclidine Scr Negative [facility] Comment on above: Performed By: #### 1 [id number] ####[facility] (DEFAULT)[address] [place] [address] 22897 U Propoxyphene Scr Negative [facility] Comment on above: Performed By: #### 1 [id number] ####[facility] (DEFAULT)[address] [place] [address] 11130 U Tricyclic Antidepress Scr Negative [facility] Comment on above: Result Comment: Resu [...] PPX Propoxyphene (Norpropoxyphene): 300 ng/mL THC Cannabinoids (61-zot-3-carboxy- -THC): 50 ng/mL TCA Tricyclic-Antidepressants (Desipramine): 300 ng/mL Performed By: #### 1 [id number] ####[facility] (DEFAULT)[address] [place] [address] Urine Source Clean Catch [facility] Comment on above: Performed By: #### 1 [id number] ####[facility] (DEFAULT)[address] [place] [address] UA w Culture if Ind Standard on 12-21-2021 Color (U) Yellow [facility] Comment on above: Performed By: #### 1 [id number], [id number] ####[facility] (DEFAULT)[address] [place] [address] Culture? Not Indicated Invalid Interpretation Code [facility] Comment on above: Result Comment: Resu lt created by rule GL_MAGR_ADD_UA_[id number] Performed By: #### 1 [id number], [id number] ####[facility] (DEFAULT)[address] [place] [address] Glucose (U) [Mass/Vol] Negative [facility] Comment on above: Performed By: #### 1 [id number], [id number] ####[facility] (DEFAULT)[address] [place] [address] 92632 Ketones Ql (U) Negative [facility] Comment on above: Performed By: #### 1 [id number], [id number] ####[facility] (DEFAULT)[address] [place] [address] 53009 Micro? Not Indicated Invalid Interpretation Code [facility] Comment on above: Result Comment: Resu lt created by rule GL_MAGR_ADD_UA_MICRO Performed By: #### 1 [id number], [id number] ####[facility] (DEFAULT)[address] [place] [address] 50152 UA Bilirubin Negative Normal [facility] Comment on above: Performed By: #### 1 [id number], [id number] ####[facility] (DEFAULT)[address] [place] [address] 12763 UA Blood Negative Normal NEGATIVE [facility] Comment on above: Performed By: #### 1 [id number], [id number] ####[facility] (DEFAULT)[address] [place] [address] 25264 UA Clarity CLEAR Normal CLEAR [facility] Comment on above: Performed By: #### 1 [id number], [id number] ####[facility] (DEFAULT)[address] [place] [address] 95034 UA Leuk Est Negative Normal NEGATIVE [facility] Comment on above: Performed By: #### 1 [id number], [id number] ####[facility] (DEFAULT)[address] [place] [address] 66995 UA Nitrite Negative Normal NEGATIVE [facility] Comment on above: Performed By: #### 1 [id number], [id number] ####[facility] (DEFAULT)[address] [place] [address] 17153 UA pH 6.5 Normal 5-8 [facility] Comment on above: Performed By: #### 1 [id number], [id number] ####[facility] (DEFAULT)[address] [place] [address] 84743 UA Protein Negative Normal NEGATIVE [facility] Comment on above: Performed By: #### 1 [id number], [id number] ####[facility] (DEFAULT)[address] [place] [address] 82533 UA Spec Grav <=1.005 Normal 1.001-1.035 [facility] Comment on above: Performed By: #### 1 [id number], [id number] ####[facility] (DEFAULT)[address] [place] [address] 52548 UA Urobilinogen 0.2 mg/dL Normal 0.2-1.0 [facility] Comment on above: Performed By: #### 1 [id number], [id number] ####[facility] (DEFAULT)[address] [place] [address] 98723 Breakpoint UA Normal [facility] Comment on above: Performed By: #### 1 [id number], [id number] ####[facility] (DEFAULT)[address] [place] [address] 86522 Urine Source Clean Catch Normal [facility] Comment on above: Performed By: #### 1 [id number], [id number] ####[facility] (DEFAULT)[address] [place] [address] 49336 XR Chest 2 Viewson 2 XR Chest [...] 12/21/21 9:38 pm Technologist: Obed BELLE Normal [facility] CARDIAC HUMAIRA ADMITon 021 CK [Catalytic activity/Vol] 117 U/L Normal 30-[address] [facility] Comment on above: Performed By: #### T SH, CMADM, CMP #### [facility] [address] [address] Nelida Lily CK.MB [Mass/Vol] 1.16 ng/mL Normal <=2.37 [facility] Comment on above: Performed By: #### T JOÃO LOCK, CMP #### [facility] [address] [place] [address] Nelida Lily HSTROP <4.0 Normal 4.0-35.[address] [facility] Comment on above: Result Comment: CUT- OFF POINTS HAVE BEEN ESTABLISHED BASED ON THE FOURTH UNIVERSAL DEFINITIONS OF MYOCARDIAL INFARCTION. THE UPPER REFERENCE LIMIT (URL) OF TROPONIN, DEFINED THE 99TH PERCENTILE OF cTnI DISTRIBUTION IN A REFERENCE POPULATION, HAS BEEN CONFIRMED THE DECISION THRESHOLD FOR ME DIAGNOSIS. Performed By: #### T JOÃO LOCK, CMP #### [facility] [address] [place] [address] Nelida Lily NGA 41.0 ng/mL Normal <=61.[address] [facility] Comment on above: Performed By: #### T JOÃO LOCK, CMP #### [facility] [address] [place] [address] Nelida Lily CBC AUTO DIFFon 02-23-2021 BASO # 0.1 103/ul Normal 0.0-0.[address] [facility] Comment on above: Performed By: #### C BC #### [facility] [address] [place] [address] Nelida Lily Basophils/100 WBC (Bld) 1.0 % Normal 0.2-2.[address] [facility] Comment on above: Performed By: #### C BC #### [facility] [address] [place] [address] Nelida Lily EO # 0.1 103/ul Normal 0.0-0.[address] [facility] Comment on above: Performed By: #### C BC #### [facility] [address] [place], [place] [id number] Nelida Lily Eosinophils/100 WBC (Bld) 2.2 % Normal 0.9-7.[address] [facility] Comment on above: Performed By: #### C BC #### [facility] [address] [place], [place] [address] Nelida Lily Erythrocyte distribution width (RBC) [Ratio] 14.2 % Normal 11.0-15.0 [facility] Comment on above: Performed By: #### C BC #### [facility] [address] [place] [address] Nelida Bautista Hematocrit (Bld) [Volume fraction] 40.6 % Normal 36.0-48.0 [facility] Comment on above: Performed By: #### C BC #### [facility] [address] [place] [address] Nelida Bautista Hemoglobin (Bld) [Mass/Vol] 13.3 g/dL Normal 12.0-16.[address] [facility] Comment on above: Performed By: #### C BC #### [facility] [address] [place] [address] Nelidajose Bautista IG # 0.02 10e3/ul Normal 0.00-0.03 [facility] Comment on above: Performed By: #### C BC #### [facility] [address] [place] [address] Nelida Bautista IG % 0.4 % Normal 0.0-0.5 [facility] Comment on above: Performed By: #### C BC #### [facility] [address] [place] [address] Nelidajose Bautista LYMPH # 1.7 103/ul Normal 1.2-3.[address] [facility] Comment on above: Performed By: #### C BC #### [facility] [address] [place] [address] Nelida Bautista Lymphocytes/100 WBC (Bld) 34.6 % Normal 20.5-60.[address] [facility] Comment on above: Performed By: #### C BC #### [facility] [address] [place] [address] Nelida Bautista MANUAL DIFF REQ NO Normal [facility] Comment on above: Performed By: #### C BC #### [facility] [address] [place] [address] Nelida Bautista MCH (RBC) [Entitic mass] 31.5 pg Normal 26.7-34.0 [facility] Comment on above: Performed By: #### C BC #### [facility] [address] [id number] Nelida Bautista MCHC (RBC) [Mass/Vol] 32.8 g/dL Normal 29.9-35.2 [facility] Comment on above: Performed By: #### C BC #### [facility] [address] [address] Nelida Bautista MCV (RBC) [Entitic vol] 96.2 fL Normal 81.0-99.0 [facility] Comment on above: Performed By: #### C BC #### [facility] [address] [address] Nelida Bautista MONO # 0.4 103/ul Normal 0.3-0.8 [facility] Comment on above: Performed By: #### C BC #### [facility] [address] [place] [address] Nelida Bautista Monocytes/100 WBC (Bld) 7.1 % Normal 1.7-12.0 [facility] Comment on above: Performed By: #### C BC #### [facility] [address] [place], [place] [address] Nelida Bautista NEUT # 2.7 103/ul Normal 1.4-6.5 [facility] Comment on above: Performed By: #### C BC #### [facility] [address] [place], [place] [address] Nelida Bautista Neutrophils/100 WBC (Bld) 54.7 % Normal 43.0-75.[address] [facility] Comment on above: Performed By: #### C BC #### [facility] [address] [id number] Nelidajose Bautista Platelet mean volume (Bld) [Entitic vol] 9.8 fL Normal 9.5-13.[address] [facility] Comment on above: Performed By: #### C BC #### [facility] [address] [place], [place] [address] Nelida Lily PLT 320 103/ul Normal 150-[address] [facility] Comment on above: Performed By: #### C BC #### [facility] [address] [place] [address] Nelida Bautista RBC 4.22 106/ul Normal 4.20-5.[address] [facility] Comment on above: Performed By: #### C BC #### [facility] [address] [place] [address] Nelida Kimbleen WBC 4.9 103/ul Normal 4.0-11.0 [facility] Comment on above: Performed By: #### C BC #### [facility] [facility] [address] [place], [place] [id number] [address] B[address] STROKE HEAD WOon 02-24-20 21 [...] SKINNER Date: 2021-02-23 13:[address] [facility] ER URINE PROFILEon Bilirubin Ql (U) Negative Normal NEGATIVE The [facility] Comment on above: Performed By: #### E RUR #### [facility] [address] [place] [address] Nelida Lily Clarity (U) CLEAR Normal CLEAR [facility] Comment on above: Performed By: #### E RUR #### [facility] [address] [place] [address] Nelida Lily Color (U) LT. YELLOW Normal YELLOW [facility] Comment on above: Performed By: #### E RUR #### [facility] [address] [place], [place] [id number] Nelida Lily ERUAHD A micrscopic examination will be performed if indicated. Normal [facility] Comment on above: Performed By: #### E RUR #### [facility] [address] [place], [place] [id number] Nelida Lily Glucose Ql (U) Negative Normal NEGATIVE The [facility] Comment on above: Performed By: #### E RUR #### [facility] [address] [place] [address] Nelida Lily Hemoglobin Ql (U) Negative Normal NEGATIVE The [facility] Comment on above: Performed By: #### E RUR #### [facility] [address] [place] [address] Nelida Lily Ketones Ql (U) Negative Normal NEGATIVE The [facility] Comment on above: Performed By: #### E RUR #### [facility] [address] [place] [address] Nelida Lily LEUKOCYTES Negative Normal NEGATIVE [facility] Comment on above: Performed By: #### E RUR #### [facility] [address] [place], [place] [phone] Nelida Lily Nitrite Ql (U) Negative Normal NEGATIVE The [facility] Comment on above: Performed By: #### E RUR #### [facility] [address] [place], [place] [phone] Nelida Lily pH (U) 8.0 [pH] Normal 5-[address] [facility] Comment on above: Performed By: #### E RUR #### [facility] [address] [place], [place] [phone] Nelida Lily SPEC GRAVITY 1.020 Normal 1.005-<=1.025 The [facility] Comment on above: Performed By: #### E RUR #### [facility] [address] [place] [address] Nelida Lily UA PROTEIN Negative Normal NEGATIVE/ TRACE [facility] Comment on above: Performed By: #### E RUR #### [facility] [address] [place] [address] Nelida Lily UR MICRO IND NOT INDICATED Normal The [facility] Comment on above: Performed By: #### E RUR #### [facility] [address] [place], [place] [id number] Nelida Bautista Urobilinogen Qn (U) 0.2 {Jose Carlos'U}/dL Normal 0.2 - 1. 0 [facility] Comment on above: Performed By: #### E RUR #### [facility] [address] [place], [place] [phone] Nelida Bautista POINT OF CARE GLUCOSEon 01-27 Glucose [Mass/Vol] 95 mg/dL Normal 74-106 The [facility] Comment on above: Performed By: #### P OCGLUC #### [facility] [address] [place] [address] Nelida Kimbleen PREG HCG QUALon 02-23-2021 , QUAL Negative Normal NEGATIVE The [facility] Comment on above: Performed By: #### P REG #### [facility] [address] [place] [address] Nelida Bautista PROF 14(COMP METB)on 021 Albumin [Mass/Vol] 3.6 g/dL Normal 3.5-5.0 [facility] Comment on above: Performed By: #### T JOÃO LOCK, CMP #### [facility] [address] [place] [address] Nelida Lily Albumin/Globulin [Mass ratio] 0.9 {ratio} Normal [facility] Comment on above: Performed By: #### T JOÃO LOCK, CMP #### [facility] [address] [place] [address] Nelida Lily ALP [Catalytic activity/Vol] 103 U/L Normal 38-[address] [facility] Comment on above: Performed By: #### T JOÃO LOCK, CMP #### [facility] [address] [place] [address] Nelida Bautista ALT [Catalytic activity/Vol] 35 U/L Normal 9-[address] [facility] Comment on above: Performed By: #### T JOÃO LOCK, CMP #### [facility] [address] [phone] Nelida Lily Anion gap [Moles/Vol] 13.3 mmol/L Normal [facility] Comment on above: Performed By: #### T JOÃO LOCK, CMP #### [facility] [address] [phone] Nelida Lily AST [Catalytic activity/Vol] 28 U/L Normal 14-[address] [facility] Comment on above: Performed By: #### T JOÃO LOCK, CMP #### [facility] [address] [address] Nelida Lily Bilirubin [Mass/Vol] 0.2 mg/dL Normal 0.2-1.[address] [facility] Comment on above: Performed By: #### T JOÃO LOCK, CMP #### [facility] [address] [address] Nelida Lily Calcium [Mass/Vol] 9.0 mg/dL Normal 8.4-10.2 The [facility] Comment on above: Performed By: #### T JOÃO LOCK, CMP #### [facility] [address] [address] Nelida Lily Chloride [Moles/Vol] 108 mmol/L Critically high 98-107 [facility] Comment on above: Performed By: #### T JOÃO LOCK, CMP #### [facility] [address] [phone] Nelida Lily CO2 [Moles/Vol] 25.8 mmol/L Normal 22.0-30.0 The [facility] Comment on above: Performed By: #### T JOÃO LOCK, CMP #### [facility] [address] [phone] Nelida Lily Creatinine [Mass/Vol] 1.00 mg/dL Normal 0.52-1.04 [facility] Comment on above: Performed By: #### T JOÃO LOCK, CMP #### [facility] [address] [phone] Nelida Lily EGFR-AF SAO TOMEAN >60 Normal >=60 The [facility] Comment on above: Performed By: #### T HAYDE CMADM, CMP #### [facility] [address] [place], [place] [address] Nelida Lily EGFR-NON AF SAO TOMEAN >60 Normal >=[address] [facility] Comment on above: Performed By: #### T HAYDE CMADM, CMP #### [facility] [address] [place], [place] [address] Nelida Lily Globulin (S) [Mass/Vol] 4.2 g/dL Normal [facility] Comment on above: Performed By: #### T HAYDE CMADM, CMP #### [facility] [address] [phone] Nelida Lily Glucose [Mass/Vol] 95 mg/dL Normal 74-106 The [facility] Comment on above: Performed By: #### T HAYDE CMADM, CMP #### [facility] [address] [address] Nelida Lily Potassium [Moles/Vol] 4.1 mmol/L Normal 3.4-5.0 [facility] Comment on above: Performed By: #### T JOÃO LOCK, CMP #### [facility] [address] [phone] Nelida Lily Protein [Mass/Vol] 7.8 g/dL Normal 6.1-8.2 [facility] Comment on above: Performed By: #### T HAYDE CMADM, CMP #### [facility] [address] [phone] Nelida Lily Sodium [Moles/Vol] 143 mmol/L Normal 137-145 [facility] Comment on above: Performed By: #### T HAYDE CMADM, CMP #### [facility] [address] [id number] Nelida Lily Urea nitrogen [Mass/Vol] 10.0 mg/dL Normal 7.0-17.0 [facility] Comment on above: Performed By: #### T HAYDE CMADM, CMP #### [facility] [address] [phone] Nelida Lily Urea nitrogen/Creatinine [Mass ratio] 10.0 mg/mg Normal [facility] Comment on above: Performed By: #### T HAYDE, RAYDM, CMP #### [facility] [address] [address] Nelida Bautista TSHon 02-23-2021 TSH 1.157 uIU/mL Normal 0.470-4.680 The [facility] Comment on above: Performed By: #### T RAY LOCKDM, CMP #### [facility] [address] [address] Nelida Lily TSH RANGE SEE BELOW Normal [facility] Comment on above: Result Comment: <0.3 4 UIU/ml HYPERTHYROID 0.34-5.60 UIU/ml EUTHYROID >5.60 UIU/ml HYPOTHYROID Performed By: #### T JOÃO LOCK, CMP #### [facility] [address] [address] Nelida Bautista XR CHEST 1 Von 02-23-2021 [...] SKINNER Date: 2021-02-23 13:[address] [facility] Encounters Encounter Date Encounter Type Care Provider Facility Start: 12-16-2023 End: 12-16-2023 ambulatory SHAWNA RICHTER Not Available Start: 11-18-2023 End: 11-18-2023 ambulatory MARYANN ZACKERY Not Available Start: 10-21-2023 End: 10-21-2023 ambulatory SHAWNA RICHTER Not Available Start: 09-23-2023 End: 09-23-2023 ambulatory MARYANN ZACKERY Not Available Start: 08-22-2023 End: 08-22-2023 ambulatory MARYANN ZACKERY Not Available Start: 12-22-2021 End: 12-22[facility] Start: 02-23-2021 End: 02-23-[address] OLSON [facility] Facility:[facility] Payers Date Payer Category Payer Unknown [id number] 1985 Unknown [id number] 2.16.84 [id number] 1985 Unknown [id number] 2.16.84 [id number] 1987 Unknown [id number] 2.16.84 [id number] 1987 Unknown [id number] 2.16.84 [id number] 1987 Unknown [id number] 2.16.84 [id number] 1987 Unknown [id number] 2.16.84 [id number] 1959 Unknown [id number] Summary Purpose Family History No Family History Records FoundNo Family History Records FoundNo Family History Records FoundNo Family History Records Found Advance Directives No Advanced Directives Records FoundNo Advanced Directives Records FoundNo Advanced Directives Records FoundNo Advanced Directives Records Found Additional Source Comments INFORMATION SOURCE (unrecogn ized section and content) DATE CREATED AUTHOR 02/28/2021 [facility] DATE CREATED AUTHOR AUTHOR'S ORGANIZ ATION 12/24/[address] [facility] DATE CREATED AUTHOR AUTHOR'S ORGANIZ ATION 01/01/2022 [facility] DATE CREATED AUTHOR AUTHOR'S ORGANIZ ATION 12/18/2023 [facility] EPIC FOR RECORDS PERTAINING TO [...] BE BASED ON THE PRIMARY CLINICAL RECORDS. [employer] [facility]. provides no warranty or guarantee of the accuracy or completeness of information in this document.
[2023-12-20 09:19] LABS: Glucose Fasting 97 mg/dL (<95)
[2023-12-20 10:05] LABS: Glucose 1 Hour 187 mg/dL (<180)
[2023-12-20 12:18] LABS: Glucose 2 Hour 140 mg/dL (<155)
[2023-12-20 15:07] LABS: Glucose 3 Hour 113 mg/dL (<140)
== END 2023-12-20 08:09 | disposition home or self-care (01) ==
LOC: LAB 08:08
PROVIDERS: Visit Provider Obstetrics & Gynecology
DX: R73.09 Other abnormal glucose (principal)
CPT/HCPCS: 36415; 82951; 82952

== ENCOUNTER 2023-12-25 10:17 | Outpatient (OUT) | payer BC, SELFPAY ==
--- OUTSIDE RECORDS SUMMARY | 2023-12-25 10:28 | XMS_ITS | CCD ---
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 Semiautomatic Name Role Phone HAMZAH, DR OLSON Primary [...] Coding Summaryon 12-31-2021 Coding Summary HTMLBase 64 VqwyflozNBc8oBr+PGhl YWQ+AT2IBPRxM86jgAKc dG6IH6pTOW9ELXLWGTRX RW4MOK5hwDL6AOsxW1Na biAv TsnbdKJlRW67FEr5HZK0 eMyvSAtywB6djMBdX6a3 ZvBlJA54wZ67MIkpHPFo CoE4YyXhqlkdwHSd Q8nyAzJneIArYnn+PHRh YmxlIHdpZHRoPScxMDAl XfLdgZmkZY8zKm8sEVVe LWNvbGxhcHNlOiBj t4eyFLHfYLajEB1mpYkb J2LuvAG0IXYst8s7Af74 dHI+MRZnDWT7kKxmZUtk o969HbTya1reVYY4 lYHcDKsyCDJ6T62jq7V5 NLUgFAGsNPY4rYY9aC6u tTlqnsztW2LsjBXcEiY9 NEM8jDYcpO1jiXgp cvgyoY0pDyg+V29AKM0O GZSJSX2JEkx1W8WcEzft dHI+AL10DMOfAL44wGWn wTIwr5zmyDp8FnSl QWZcMVE9uHliAQmdr4Kz WNKzC54raZAys5G9KYHw zFtmaZQoDuHdyMM4iA8z EQpcmpmlh9jxpuwe Ympgl7naad94rU48K23t PPkxHZAdMBF8VLNqBXMl uCihpq3zoG8jPj4+IDxj m1anc7zqhRo5UhGj BKYeftWrvApwERG1x6Xu Ax02Y6FktWlkv4SfTkv0 vh81lDSkt7E4cGW6HKja DDFdqF6xTRboZdP3 JNEvEpUyzK85jRDpGYho Pd1swUokgEkxDG9yEPCt kcqdTFBmgP5aTWNbtAXn bJdhEW3vDPBgymdt k893FvXpBGW6GHFkmQAj D2TqtA5oGuTbDGLyHGNr K3UibIHjXVnpP158ZZgd PcV3ODHywfCyD6Hf SEIzvOfxWhC3j9X8Cm4K w6MmkbbtCEC7TSliARI8 XqE4TuKhWcH9C9ZpDlf6 KDLosCayWO5pR2Xc VNIfawluaoqwlVT0DHWx CUNypP18oTYwSPtjNc0y p8Y3i324PLHrZIHkaQ61 Js5flYbrGWRwfGVJ qQ0svljsp9qwgielVdIp VERxRNy9EZd5TUTzmRjn VmXaVCK7CpW8EPB8kZNq eC2ysGcyfmoruG8i Oyc+S61tyY2fPEF6TMA4 kuhlZDMzdhUmTW60GY88 D8HxXxuqhXSubTN+PGRp nnOgvWacFT3uTxPj m4xtp9LkXCmkI4YkNATq KJozPdv4AUXiJDB1xAE3 dL7eDMUoZPyqt0I0iTT2 N2NlpgKimh9gm2gg MSPrHKlfH49raLVyu7J8 MQAnrJY7RFDiaIrsUnNx rB46Jlm+ZRCrzTjkr8Np Vvvea7gmx7asgNy3 IjMwJSIgdmFsaWduPSJ0 n9ZfZv17C48sIOklUJUa FZEmGWImGOFwoDahky7r aY8cYd4+PGNvbCB3 qJN6cU7nPUTtObW3STgb U209MhEdgFZpCmcis9hh s6oswZp7KjShNNHvtzRh fSzfQTU7y9YaBv11 G26xUXzaLLXaAUSgPCVx SATtcMgtes0kjY0bIe8+ KP1xg0jqvy33jK79eSC+ KOQtIJB8pPqtUFoi VGGksR5oYQrqFjW4YGTw FuUwlG70nBNqLXvcAc2h sMesqLjoGN7cCFKmcfuc n296OzSay4hlGLOw gXBtMOavDPV3F95lx0E6 KCMnRSHtBXX7rII1sB3d bGlnbjogbGVmdDsgdmVy vNsjZCmjMVzgO092 IHRvcDsnPlBhdGllbnQg UkVeWMl5N4LpNiq4KUAh uBqpQY3bwRMrVAcbGi1s bXvlyVayOI9lBUMx cjhgd346RuHah5fsJDQr zLAbZGhzDBN9W36vz4M0 IZLxPJWmIUE9yHZ2eJ4r bGlnbjogbGVmdDsg fnZqnZjzNOknJTnnN013 IHRvcDsnPkJpcnRoIERh zMG0UY50BH27jQCcr7M6 qUQ5C2BrJMAhfiux lrytjHW2YRGuBZEnxM11 Uk7zzWomFn7hKKHjZJI7 KFCjbXAsL6EflH8aPpIz BHRjJTNlZ5QhbTVh WEojQ804PQxyWlW3ZCNv fiTeX2BuZVFvsOupVfA1 y4E8Bi8NS8M5XF54OQ39 hRQwq3P8hLE8W1Ft AWZhfpttddpcyVT3LLHw MHQctC43Oa9zoIblMc2r ACYjLLL5DGDetGAiL6Oa oQ6nSmHhQBNsJHRx W4UepPFoJNepK373GWri HkT7IUKmaiScH0CkXTQj qTwnRaW0j8T8Cd2ITKb6 MD38AM89wDWjz6F5 cSL9C9CcWGSboobdpmqw qII1PZOwFLGfqR51Ue6h wTvcSu7aUSEmELY5ZSJr dMDmF3GcwB6iSkUz JCGzLUIyW8MarAWjAXoj Q874QMaaRjT1TBInozSg Z9FaZCBktMteGyH3b6J9 Wz6HIPLxFA72ITY3 aWN2NZ40WP60M2AqZlrz dGFibGU+PHRhYmxlIHdp ZHRoPScxMDAlJyBzdHls IR7dRk3fQIXyYVXt dXuudLXfVfSgx6iqKGOr TYqvUI7nmNjtR1PhqFQ4 BQYyb7i6Eg04H50xY1Si dXA+BWLwsIA5cFA6 nN7bIrPoEtW4GXqgF889 ZsXzlBOaDvzxc4qsi6xx cRl6RxT9YLXlymAcvMri FTY2n7QrZg36B59n IHdpZHRoPSIxNSUiIHZh iRfmzo0vhZ1sXt5+PGNv eVE4rGA8uQ0wWyIiRaQ4 QUylF095LjQueOLq Bdgpw3niy9wpbAr1ZoGa ANSgxvZgjFzxHIK6z1Bi Zz10S7EhbAtbu9WzLpa4 zs65vABtj8T0wPI4 Y0KiURCxspoadQPjeHpf DS0qIGYoczfjAENwfO0w TFXvN4e9LvWrPeS2YXbb P6UmfdB5KTOwiMYl KFfrZIB7U90ap3C7GDXo LSThUBK5cTI8cF7itOqg bjogbGVmdDsgdmVydGlj TOouRAzoR432OCVq bEvqXHRylB2tIXYtgLBx gEsnRR7oMKWmdjptMizM VBXVFHZAIXFVQpLBTD27 AA49rJSky9N0dMF1 Q0ZgRSDbxtqbpfgrcHC2 PWToYVDjxE95bBLhUIqn Hu6eb9A1o655XDBiEPQt vG28Qy6axXalNPXh lZFIlA1qiqvfv9ctgdwi QpCwHHZfCDu5YFd6OEJf oDgdGdGqXBR9IgL2YIS0 pASvcL2lyVzgihsi yQ1jEpx+MDEvMDgvMTk4 ODwvdGQ+IDIwXUR9kPac DNstJPLntH9iLMYvE3p4 YyEeOyW2HIgrV3Ps SEIgnitdRq64vD2uUnIv AaM3QWkdJ0SvuxT3CKHw qXVcZNnfXFK9Z76jd8G3 KXOgVFBjHUL9jOQ9 rY9okGvizrszyVToxUqu vvTxdGdwEPbaKKtwF446 UMVlcSthYaI3XFhwZYMe FF90DM78bDRsl9L1 sXN6V9UjTNRdbjenpulb tQI1LKQxFARazR70rISb ROiwEz0ei8W4r031MWJk TMGhjM09Jn2aqEzv VPXkaNHSlV4nrikkn2jz zdlqHwBrFVYxIDq8CHw6 CUWmkPaaPhBdGLQ2GgB1 ANI8gEJhzI8mxAmr gyvgkW1rAlv+RkVNQUxF AL55JR73oAVfc9W1mFZ7 D8SwBKZddthuvvlseFA8 DPCpDWThrH54yLCf EFtlLc6jo6Y7o167AOBo HLEnxG02Xk8atGtiXFIi eWSDqR2fwjfye7lymrhs TpJcYLMzNKl9TDx9 OTSwxHwlTqXzHWK1KwE3 BXF5cOZneS6czUkxuphv zC1uUur+F7K4S5TtSsmw dHI+SJ61HLNvDD13 pYHqwRDkw0txcJi1KeSu LOMsUIZ0zTneAPikl6Bp HHCiO83yoMLet2Y2HWLt bGxhcHNlOyBlbXB0 lB8yYJrvbkeiy7rjnann Zoeue7mdru77wU50M73o IHdpZHRoPSIzMCUiIHZh dVvazh6gcK4zMx2+ GXGcdSY6vFV6yR1fBvUq MnF6IFhxC238VfHxaEOn Vnbdj2vtz2tuhFt6IuVr JSIgdmFsaWduPSJ0 c0VmBf14J06sCFyxUXVt PIRfIIRcXSCoqYkazh1z pG4lFl3+BZ0jf3vnfh00 cQ02aPX+PHRkIHN0 bVibUKjpBIBwxS0nCXse KxQ3WNNuAxIzmQ64yYAe TSrkLe3bwLluoQqpQK6r IDMtyljhm145HhFt s8lgODTivQCnUGmsAAT6 C90hi2M1ETHsDNMgNZG4 sQF7gG3ozVcqsiifbPMc dDsgdmVydGljYWwt IDxpT408TIYszTddVaUa oHCtU7nzsnFMWI6xMqrw dGQ+HFBeFDO5jYzmXAfe VSZdwS3hUEEaA8w1 VaTnVyR9RVolF7GdprQ1 FTQsaSYqUOEbfLIIqX1f yfpiw8iurvoqBcQkRLHd QEh6KRt1HHTetMtl NmMfCDV8UkL0QLE1uYSg vW4gpNybynujtK1xGpj+ RklOOjwvdGQ+PHRkIHN0 aCvzUKtvAZAjjP7r OJByP2i4ZuZqBdJ4MYal N9VsnlR7MDUyfNLkIIJs bXKMxD2ejmfxy0wdakby MhRlLVXeNWv9DWh2 IACutBorYqBmGFD1NlF0 WAR7gZKhiG4ebOvovjub hA6eBwg+TVJOOjwvdGQ+ LMIaIYW2aWcuPNsc TEMdlY6qEWNnV0j0LmTk IrI9JIdkH1TlnxF3IQJq pBHyJDIbeBQYwN0leusu t5cgyivzGaKmACSn BJh1YOr6NJDtdMekDxHi ZFA1IqI3GIF4xXFlzP8a rGlojgftcI2tPvb+UGF5 UGV0RW07WR47D4Fm PjwvdGFibGU+PHRhYmxl IHdpZHRoPScxMDAlJyBz hSdbQP8qWj7zYEZvKVIo uMxisCCjPtGln3fb YXB (more content not included)... [facility] Coding Summary HTMLBase 64 YnhxvskyGMm6oFm+PGhl YWQ+HY6LBMIcJ16uaJOq cE2DY6uWFD2XAYFMRZTH JR2TZM1cbUU6ZObmZ0Bh biAv JqiolJRqRG90ZBw0QMT7 nMxmYTwzaD0hrDSjI0t0 NeGdPS08uF26QLnmNNAy AxN6JjIsrdmmpTSz G4mhScVqsQZjDfn+PHRh YmxlIHdpZHRoPScxMDAl LwPrdBvpQL8zJj6hEDIj LWNvbGxhcHNlOiBj c5nwGPQxMLscSE4geZax G0AarFL4GJOms2o0Yt86 dHI+ZWQpDRG1cTcuCCjk b180FqCtq2uaGCS0 nFAoMVwqCUH5U12ik4A6 WZQzWXYmCKD5dGD7bQ0m fEfhzexiL8OfqXSnVyN9 BOY1qXDayJ5saRpt ohfmnD2bHur+K21SCM9T IVHFCA5ESnc6O8ExFzad dHI+WQ19ZGKkMU32aSWa fDSzd9umjAh8KiNm MQOiBVA0kCaiPRqjg2Uk LWRvT06ulDRhx3L0GVLf jLvmhSDgLeQwkVC2fF6m LVuukeylj8lvnuxz Wxipz8nlpk79pD58P19n DQfrNVYuPSR4FHKpFQFg wRjbqd4qqX1uUh5+IDxj d9qhd5mdtGg3NgZk UHEcixBseAfjIJC4o5Ep Cu69E8VrnEdka2KxGef8 te21eOLqb4X5wRL5RVdo YIPvnL6uGThqJtO1 EGKcStNzrD25hJGjIMhc Qx7lwEvodYeeTT5wSJQb gqcaCNFeaT0cDWOolUIy gGpmSU4zQXZzqpcb s927RdFdQHB3RYJqwYCq F0GrwH8rFiXoHYAoOCFw Y4VucDUoRHxzI538DFbw YwI2GZOaimClB9Ce AQCjeIcvQkQ0y5K2Uk0N k8KuxthbYLD3QLdgTZO8 VcC8JbKoFhP1S2ArCnd6 QIHxoHunUV9vE1Be XVIhujdsdtnhpEQ0LOOz IQDdvT63iXVfJZerHo1n p4F0y313HULwTONjqN44 Fd2vgLsiKUAlvOWJ cJ3empvhe5qkfgqqSkCy SDNsWSq4RQd2WTInqBvc FzPtTYD0QjT9UOB4sXIg zJ7kqCqornehcV0u Oyc+R87kxP3mZGX7KTT5 dodkAMHfcrZoYY21HJ55 G0KqRbliaQEhhJV+PGRp luDonOusQC3gIzKy p1byo2RdKXlyR0MtFPJr PAcsKxo7OJAxMHT8uDH9 cG7tRRRvXCohm9H6uNU8 Y3AtlhBuhk7rd7wq HXFlKFddN07ufWZqd7U0 XKEojRF2WYYimCwmNrFp jE62Jnq+IVUzlDmlb8Tp Yezwl1puj5bodGr2 IjMwJSIgdmFsaWduPSJ0 d9RdCr48X10kBNxtCPSn ZBYxNVZhTBDhjFhfub0b zT4kCz9+PGNvbCB3 xHX8eW2lVGZkMzF0YLnv Q835NeQtaBXyEeolv8ay v7opeIj6VdJzKVKijrNu kMjtWDF2j5QpAt97 Y20bBGntZOCkXYPyMHTi BYTfjFbwdz1fxO7zMy1+ XR6gj2adry90vU75aQX+ OMYfYPL2eIiuSJor VCAuaF5oTWduPuV0ENVs EvEmjT11eEGbHTbtDl4l oUcncDjiSL4gACRtevlh g239ThXsg2epOOUl oHIdAZsmURQ2K10cd7O4 FASmQQIyCBK9lPW2qB6q bGlnbjogbGVmdDsgdmVy yEeoGNawYTvdL306 IHRvcDsnPlBhdGllbnQg DvDtJLq1C2ImHie8ATFj pOejCJ0zzRPyARubUa2k nQyxaElwRQ0jPDFz wxwna597NrHwp5jyYAOu eGApZPeaABO1P63dp3Z2 FIBiDJPyBYD3gND0gI9i bGlnbjogbGVmdDsg jqZzuEokBOxdQUxqP658 IHRvcDsnPkJpcnRoIERh gJM2SZ68JG45wCHyd8L0 dCF4C4IwWTRffcvc gatzvGG2DHZgQDSelO05 Qi4akNitKf0vIUUaJWX3 QHTxkOIhX5WqsX9mBdTk EGQmOAVgH9PfnAYa RXynP900AWbgNlI0TWAs ojYiW9GdOYFdwDzzXuQ7 n0K5Xm2OF5G6AN13UJ34 qTImk0L0yTV6Z9Kp NQJxyqkecfgpvSO3CYLu RQRonO03Hn3pbUllKu4r KSGaHNR0ETVazJSlI9Ko iN9eKcAsMYYuAQWk L2EhgPScHOpmQ121SJzz KyW0ICJhrwAmY3IrMPTr eRbaDyE1t8E4Zu0BHJr4 RW70OR96hEGma0X9 jXY0O6BzKYYkvsytauyy nPR9SLHiMRDhgK24Wb3u gIagCr0gLBAfPVT3EHMx aONdM2UamA6nZyLt YYErEZScA8TtuFFqDIzm E430WXpdHoN6HRZtlcMj G8ReZNFgwQboWcO7w2T5 Sx9YGZGeUD53QEB0 uME7WJ22OJ82P1CxUqdl dGFibGU+PHRhYmxlIHdp ZHRoPScxMDAlJyBzdHls QB9mVl1vBQMzVGZq yOrqdSWoPeNff6kgCAOk BWmbIZ4geJkcL4ArsVM0 PZEvo3v3Kt44P38xV1Hp dXA+MORchIL3rRL2 uJ3tLrRsJfB2AHujI951 UzPheKDcUsiyy6wcj6bh hMl4IzG4PYVdcrVprIpv WPU3j2OhIs45B42b IHdpZHRoPSIxNSUiIHZh dKfqmi6btV2tLd9+PGNv iFZ8nZQ8gL3sSoYuUzZ6 NAbqL303SfOscEDt Dzcmi3eta7pkoTf8TnLo PJGjviSjgPkkGDC2s8Fj In55A3DxnAqqk9KlNon3 wz47gVXwa3A1mQP9 X5MgYVTdzzpdhXJekFxx KM6uMNYldqsySAJlwD2f FQLmU8w5BrFfWtO3BOrs A4FjqxH7BXPvlAEi TAugHJF9F96za0N2EGLw VWMoQGH0fCV0eQ2gqAwq bjogbGVmdDsgdmVydGlj OIurHJwgR733FFLl yDeuVFByeI0nVTYnuZPl tNgqDA1xCYRgiyjbEhtC POAVREDITHXVKrAIBT01 GY50kSVgn2S8vZD8 K4WfQVIpwkstalheiQI1 OVZnFFRqgY51eWYtIPzk Vk1jn6Z4n065QFGaTYOc rV63Wf1qeZtuWUNl rMJDrU2tmscwu9ftclzo VzCaPIVbNEi7BQh7AMXj cCyyCeBsBAB5TmA0BZA3 nRBjtH2hcJjnjowb eD0oBqw+MDEvMDgvMTk4 ODwvdGQ+WGSnSFU3iCmg MSxpLVAyzC2uZWPhX2o5 DrRaLjY0HFxsN3Ch XPCapepiEh80aX1tRaIi EoS9WYcnL9MsomO5LWHp yWBkOVlmPMY1P17jl7J7 HAJzZWKfIQY2hPA9 lQ1rjJvnyyjlaKYchQok ljAzsWkyVWirWNcjK534 EEXjqCpnFaN2ZGvaMJYo PP17JA11lCTmc1Q8 aLN7G4QxSNNhlmlaubtz lDU7KFDkSTWebR73sUGm NZnzId7ra2I7a171YLCn CGCgdJ25Gt5bdKtf CKVnnGUIbX0aewylb4vi jqbyUnOgPTRfEFq0MTt1 ZATseUxdDvLpOUZ6TgS7 KAD3bDZalF7jtPiy ozdekP0lImz+RkVNQUxF RW46RZ15bMIkn5F4fYY1 M2PxYKVdbubwpfbnkFR4 TIPgDNWahU94eRUj ICcjRo7eb1I2z210ZPVu LYDdgW48Yv3daNpwYZGe mRFPxP2miicqp7flmvgx BbSvUDRsRMw1VHe2 MDYrnQswGrRwUDH0BeH9 KAK0nZTobZ9enXpyyvxi iL7xPgm+LD9hbvgqwbA2 JQ55DJ67F7RvIana dGFibGU+PHRhYmxlIHdp ZHRoPScxMDAlJyBzdHls CC3zXl1eJLJmIHMooRqy jIWqGbLgj5nhPMPd NGomJX1saVyxD6MlyRO8 DLWno7f1Ld24K77yW6Ax dXA+BQAvnGN7nZZ3jZ7f KnWjOkW6QGogW862 TcSvmYHdLzhqd4pie0jx mDb3AzScUSPsdkRkkVbi JSM9o0CrRi50W36rBRej ZHRoPSIyMCUiIHZh aVdecz9sxU4lZi1+PGNv pVJ7sQZ5kI3nBuSnLpI2 CNvgI757YiMqdZJfSock S31sZ9KrwFJ+PHRy Twz6RIQeyFrcHD2cnRVb PPwjGz0tFGZ8DjTjZzWu QCemM2AoUAHpovjhzskc zHT2BSFeXHDlhT02 Hj5krQtvRs3vNSQiFHQ4 WCGhcCChN1RhrH5fNxEm NDVqOROrB2WnrUBxWHud T960SHsuHxT9OOHp xuMzW3RzTJTdiTreZaP2 i7M2Sd2IsDigyFZcLZ0r MjIcSGb0B5YiIgb9XYFn kCzkSU8dnEPmNVpv Bk6iyOaqvRuzHM1gHLAy erjms834QgGdc7oqEYFw bIKjABmkPJJ2K68lq9P0 REPgGKHkRIC9qDI0 rJ7dkZejisizpOQgdLdg ylHosXriODboYZvoK491 TLBegHsxDcBKLee0G1Qd Ioe1FARwiXjyDX4y vCRsXQttQd3ayClxvVjq YJ3bYKZdphhsh150UlLs l5pnUDGbyTVuGVzrUOU9 R87sg0H2EKIoWDZf LKF4nGI2aE2ckCjvorbl bGVmdDsgdmVydGljYWwt TRfqG517CFWilGuiVs3D Wgu6Y5UoKkh3EIJy uOoxMW0qxCLnAPfoYx1w fGgzdOkfIF4pQGQawdsb s282NqFrf6aiUGXumIVd GMmdMOZ2J59de8W0 ADBgHIZgDWL7sFU8gW5p bGlnbjogbGVmdDsgdmVy hCelQCxjJAsdN536XOKx cDsnPlBheWVyOjwv dGQ+WW39fe04B3MzFral Ayy8SIYcCTC5cKT5pC7q OUVzIYiqh2K7uRE0L2Bf cyXdok6gz5vzWSUz ZTo (more content not included)... [facility] Ambulance Noteon 12-26-2021 Ambulance Note [id number] [id number] [facility] ED Clinical Summaryon 2021 ED Clinical Summary [facility] - Emergency Department [address] [place], [place] [id number] ED Clinical Summary PERSON INFORMATION Name: LOCO HICKS Age: 36 Years Sex: FEMALE : 1985 MRN: Acct#: Visit Reason: Dizziness; FACIAL NUMBNESS, DIZZINESS Arrival: 12/21/2021 18:23:41 Discharge: 12/22/2021 00:02:00 LOS: 000 05:39 Check In: 12/21/2021 18:23:41 Checkout:12/22/2021 00:02:00 Address: [address] [place] [id number] PCP: Provider, None PROVIDER INFORMATION Provider Role Assigned Unassigned Alvin Bryan ED Provider 12/21/2021 18:26:52 12/21/2021 18:30:20 Sanjuana Ramirez CODIFIER Nurse 12/21/2021 18:29:17 12/21/2021 23:14:12 MARIAJOSE EDEN ED PA 12/21/2021 18:30:25 Kerline Cartagena CODIFIER Nurse 12/21/2021 21:46:32 Kerline Merrlil RN ED Nurse 12/21/2021 23:14:13 VITALS INFORMATION [...] - pharynx pink and moist. NECK: -Supple ([id number]): non-tender. CARD: -Rate and rhythm: Regular -Edema: No -Calf pain: No RESP: -Respiratory effort and chest excursion with respirations: Normal -Breath sounds equal bilaterally: Clear -Wheezes: No -Rales: No BACK: -Signs of pain with movement: No ABD: -Distended: No (more content not included)... [facility] ED Patient Education Noteon 12-22-2021 ED Patient Education Note Education Materials [facility] ED Patient Summaryon 022 ED Patient Summary [facility] - Emergency Department [address] [place] [address] PATIENT DISCHARGE INSTRUCTIONS Patient Information Name: LOCO HICKS Age: 36 Years Date of : 1985 Reason For Visit: Dizziness; FACIAL NUMBNESS, DIZZINESS Arrival Time: 12/21/2021 18:23:41 Primary Care Physician: Provider, None Attending Physician: Alvin Bryan Comment: Visit Diagnosis: Diagnoses This Visit Dizziness ([id number]) Paresthesias (R20.2) Visual disturbance (H53.9) Prescription Information: If you have been given a prescription for narcotics, seek immediate medical attention if you have any difficulty breathing or any sudden status changes such as confusion and sleepiness. If you or anyone you know is experiencing suicidal thoughts, mental health, alcohol and/or drug addiction problems; contact the [facility] 17/02 Crisis Hotline -Text 4HOPE to 157449. If you received any narcotics, sedation, or [...] and treatment you received today in the [facility] Emergency Department were for an urgent problem and are not intended as complete care. It is important for you to follow up with a doctor, nurse practitioner, or physician?s compliance assistant for ongoing care. If your symptoms [...] so we can reach you if necessary. [facility] Emergency Department has provided you with a complete list of medications post discharge. Please inform your senior treasury analyst/provider of your visit and for further [...] for Disease Control and Prevention March 2014 [facility] MRI BRAIN W WO CONTRASTon [...] Ean Cedillo MD 12/22/21 Final result Normal [facility] MRI CERVICAL SPINE W WO CONT Ge [...] Ean Cedillo MD 12/22/21 Final result Normal [facility] [id number] 12-22-2021 SARS-CoV-2 (COVID-19) RNA SHELBI+probe Ql (Unsp spec) Not detected Normal NOTDET [facility] Comment on above: Result Comment: Rapid NAAT: [...] management decisions. Fact sheet for Healthcare Providers: https://www.fda.gov/media/870358/download Fact sheet for Patients: https://www.fda.gov/media/805846/download Methodology: Isothermal Nucleic Acid Amplification Performed By: #### C OVRB #### [place] [address] Bending Press Operator: Campbell Simmons MD SARS-CoV-2 (COVID-19) PCRon 12-22-2021 Employed in healthcare? No Invalid Interpretation Code [facility] Comment on above: Performed By: #### 6 [id number] ####[facility] (DEFAULT)[address] [place] [address] Group care resident? No Invalid Interpretation Code [facility] Comment on above: Performed By: #### 6 [id number] ####[facility] (DEFAULT)[address] [place] [address] In ICU? No Invalid Interpretation Code [facility] Comment on above: Performed By: #### 6 [id number] ####[facility] (DEFAULT)[address] [place] [address] status? Not Invalid Interpretation Code [facility] Comment on above: Performed By: #### 6 [id number] ####[facility] (DEFAULT)[address] [place] [address] SARS-CoV-2 (COVID-19) RNA SHELBI+probe Ql (Unsp spec) Not detected Normal Not Detected [facility] Comment on above: Result Comment: Perf ormed by PCR methodology. Performed By: #### 6 [id number] ####[facility] (DEFAULT)[address] [place] [address] SARS-CoV-2 (COVID-19) RNA SHELBI+probe Ql (Unsp spec) No Invalid Interpretation Code [facility] Comment on above: Performed By: #### 6 [id number] ####[facility] (DEFAULT)[address] [place] [address] Symptomatic as defined by CDC? No Invalid Interpretation Code [facility] Comment on above: Performed By: #### 6 [id number] ####[facility] (DEFAULT)[address] [place] [address] Transfer Noteon 12-22-2021 Transfer Note medication list sent with patient, Complete ED chart sent with patient. CD and med list sent w. patient to Hospital [Electronically Signed on: 12/22/2021 00:05 EDT] Nadya Garcia [Verified on: 12/22/2021 00:05 EDT] Nadya Garcia Normal [facility] Transfer Note [id number] #1.00OTGTIFF Normal [facility] Transfer Note [id number] #1.00OTGTIFF [facility] Transfer Note transport called, [facility] called for transport to [facility]. Willie stated will call when back in area from [facility] Trip. [Electronically Signed on: 12/21/2021 22:14 EDT] Nadya Garcia [Verified on: 12/21/2021 22:14 EDT] Nadya Garcia [facility] .Auto Diff 1on 12-21-2021 Auto Yancey % 7 % Normal 1-12 [facility] Comment on above: Performed By: #### 7 211532, [id number], 8606550, 56447762, 8258804, 2538661, 7679754471, 5885464, [id number] ####[facility] (DEFAULT)[address] [place] [address] Baso Abs# 0.0 x10 Normal 0.0-0.2 [facility] Comment on above: Performed By: #### 7 296664, [id number], 2365476, 71722567, 4550962, 0482318, 9137188350, 1749373, [id number] ####[facility] (DEFAULT)[address] [place] [address] Basophils/100 WBC (Bld) 0.4 % Normal 0.2-2.0 [facility] Comment on above: Performed By: #### 7 382115, [id number], 1970876, 76102873, 8192112, 4290479, 3323381009, 8443112, [id number] ####[facility] (DEFAULT)[address] [place] [address] Eos Abs# 0.1 x10 Normal 0.0-0.4 [facility] Comment on above: Performed By: #### 7 743533, [id number], 8752691, 81235155, 3725876, 1885779, 4193485659, 0766279, [id number] ####[facility] (DEFAULT)[address] [place] [address] Eosinophils/100 WBC (Bld) 0.7 % Low 0.9-4.0 [facility] Comment on above: Performed By: #### 7 497620, [id number], 3150136, 75345321, 7458461, 1955237, 3393560018, 9224885, 5909708622 ####[facility] (DEFAULT)[address] [place] [address] Lymph Abs# 3.2 x10 High 1.3-2.9 [facility] Comment on above: Performed By: #### 7 386004, 8210418684, 2213393, 12470071, 2498620, 7841275, 2212604997, 1349424, 0935785050 ####[facility] (DEFAULT)[address] [place] [address] Lymphocytes/100 WBC (Bld) 40 % Normal 14-48 [facility] Comment on above: Performed By: #### 7 558103, 3598291435, 8234031, 87742245, 1889532, 5480273, 8400989477, 6283652, 4597984656 ####[facility] (DEFAULT)[address] [place] [address] Yancey Abs# 0.6 x10 Normal 0.0-0.8 [facility] Comment on above: Performed By: #### 7 025879, 5357903509, 5909698, 17901801, 4173878, 1437006, 6631958630, 5520868, 7398147665 ####[facility] (DEFAULT)[address] [place] [address] Neut Abs# 4.3 x10 Normal 1.5-9.2 [facility] Comment on above: Performed By: #### 7 040249, 5163437553, 6502648, 23423270, 4070334, 0719850, 0452141711, 2046103, 0419990159 ####[facility] (DEFAULT)[address] [place] [address] Neutrophils/100 WBC (Bld) 53 % Normal 44-88 [facility] Comment on above: Performed By: #### 7 839225, 6775385486, 7232313, 68374875, 1881666, 3735974, 5834152053, 7746756, 5600092472 ####[facility] (DEFAULT)[address] [place] [address] CBC w/ Auto Diffon 2 Erythrocyte distribution width (RBC) [Ratio] 14.3 % Normal 11.5-15.0 [facility] Comment on above: Performed By: #### 7 700051, 2322631595, 1586738, 63944334, 9071166, 1745612, 2343244749, 5087386, 9123882957 ####[facility] (DEFAULT)[address] [place] [address] Hematocrit (Bld) [Volume fraction] 42.3 % High 33.7-40.4 [facility] Comment on above: Performed By: #### 7 334867, 7547884799, 9985005, 17463798, 5052110, 6822869, 3781805421, 6480284, 3351019067 ####[facility] (DEFAULT)[address] [place] [address] Hemoglobin (Bld) [Mass/Vol] 13.7 g/dL Normal 11.3-15.9 [facility] Comment on above: Performed By: #### 7 684001, 2023629839, 2906940, 70154999, 0783621, 1086023, 1269259693, 0434805, 4800397963 ####[facility] (DEFAULT)[address] [place] [address] Instr WBC 8.2 x10 Invalid Interpretation Code [facility] Comment on above: Performed By: #### 7 046521, 5058192730, 8038081, 73320738, 3829644, 3750933, 3810541995, 2476698, 6014023034 ####[facility] (DEFAULT)[address] [place] [address] Man Diff? Auto Normal [facility] Comment on above: Performed By: #### 7 806406, 4484767553, 6768508, 54160662, 3504041, 3334568, 2320046015, 6232242, 1183160392 ####[facility] (DEFAULT)[address] [place] [address] 16409 MCH (RBC) [Entitic mass] 31 pg Normal 24-34 [facility] Comment on above: Performed By: #### 7 834929, 6855948302, 7954186, 88379107, 1389123, 5588963, 7409852825, 9116897, 7951899210 ####[facility] (DEFAULT)[address] [place] [address]61 MCHC (RBC) [Mass/Vol] 32 g/dL Normal 26-37 [facility] Comment on above: Performed By: #### 7 612398, 5501815052, 0872314, 40564851, 8352101, 9857570, 3368881042, 8206028, 3765839709 ####[facility] (DEFAULT)[address] [place] [address] 22123 MCV (RBC) [Entitic vol] 96 fL Normal 81-100 [facility] Comment on above: Performed By: #### 7 446535, 6434512818, 6024789, 57152420, 6928617, 6788092, 6127548295, 9588682, 3027665730 ####[facility] (DEFAULT)[address] [place] [address]140 Platelet 363 x10 Normal 138-427 [facility] Comment on above: Performed By: #### 7 426675, 2778844476, 7566577, 34931433, 6198616, 3865747, 0631883052, 3503277, 0910600071 ####[facility] (DEFAULT)[address] [place] [address]4949 Platelet mean volume (Bld) [Entitic vol] 10.2 fL Normal 6.3-10.2 [facility] Comment on above: Performed By: #### 7 121704, 3018532448, 6129035, 66645631, 7907180, 9449892, 6632427575, 4363198, 7891731726 ####[facility] (DEFAULT)[address] [place] [address] RBC 4.42 x10 Normal 3.70-5.30 [facility] Comment on above: Performed By: #### 7 021778, 4198232050, 5267673, 94085200, 5369097, 4094438, 3999824483, 6469662, 9813668050 ####[facility] (DEFAULT)[address] [place] [address]98 WBC 8.2 x10 Normal 3.5-10.5 [facility] Comment on above: Performed By: #### 7 257214, 7137457521, 5291070, 74560387, 9825436, 7836469, 5111936891, 7570073, 3652956563 ####[facility] (DEFAULT)[address] [place] [address] [facility] Standardon 12-21-2021 eGFR Non AA 57 mL/min/1.73m2 Invalid Interpretation Code [facility] Comment on above: Performed By: #### 7 367879, 4715699486, 8045855, 20159296, 5545529, 5208870, 9835767045, 3163222, 2838789420 ####[facility] (DEFAULT)[address] [place] [address] eGFR AA >60 Invalid Interpretation Code [facility] Comment on above: Result Comment: Furnace Installer nathalia Kidney disease could be indicated at eGFRs of less than 60 ml/min/1.73m2. Kidney Failure is indicated at less than 15 ml/min/1.73m2 Performed By: #### 7 135929, [id number], 7881213, 00643039, 6535517, 3974557, 9043062579, 5574785, 1505464490 ####[facility] (DEFAULT)[address] [place] [address] Albumin [Mass/Vol] 4.7 g/dL Normal 3.5-5.0 [facility] Comment on above: Performed By: #### 7 730396, [id number], 8459766, 02015609, 2372096, 9313828, 7100409145, 2298877, 6939167168 ####[facility] (DEFAULT)[address] [place] [address] 48010 Albumin/Globulin [Mass ratio] 1.1 {ratio} Low 1.4-2.6 [facility] Comment on above: Performed By: #### 7 284336, [id number], 2558409, 82799383, 1628753, 2915032, 7270019854, 6596824, 9868455843 ####[facility] (DEFAULT)[address] [place] [address] 47039 Alk Phos 99 IU/L High 32-91 [facility] Comment on above: Performed By: #### 7 044439, [id number], 8153232, 46362124, 2905697, 5029596, 6451041983, 2776326, 5601576138 ####[facility] (DEFAULT)[address] [place] [address] 63004 ALT [Catalytic activity/Vol] 32.0 U/L Normal 14.0-54.0 [facility] Comment on above: Performed By: #### 7 168881, [id number], 2394274, 15351585, 6172835, 5407647, 2946126680, 5646768, 2896533175 ####[facility] (DEFAULT)[address] [place] [address] 42543 Anion gap [Moles/Vol] 23.0 mmol/L High 5.0-19.0 [facility] Comment on above: Performed By: #### 7 993451, [id number], 0070112, 02450078, 0796954, 4177296, 4521819833, 8750358, 5139203393 ####[facility] (DEFAULT)[address] [place] [address] 01368 AST [Catalytic activity/Vol] 41 U/L Normal 15-41 [facility] Comment on above: Performed By: #### 7 289093, [id number], 0181956, 55045390, 6407305, 3133224, 6166894707, 6085740, 3809338825 ####[facility] (DEFAULT)[address] [place] [address] 57855 Bili Total 0.4 mg/dL Normal 0.3-1.2 [facility] Comment on above: Performed By: #### 7 412104, [id number], 0056918, 99315917, 1099661, 0669852, 4192917832, 6917581, 9753304147 ####[facility] (DEFAULT)[address] [place] [address] 58325 Calcium [Mass/Vol] 10.2 mg/dL Normal 8.9-10.3 [facility] Comment on above: Performed By: #### 7 929298, 2121603651, 4102140, 26744782, 0381371, 9054548, 8923755849, 6186408, 7904969346 ####[facility] (DEFAULT)[address] [place] [address] 08160 Chloride [Moles/Vol] 96 mmol/L Low 101-111 [facility] Comment on above: Performed By: #### 7 406996, 9122053081, 1513244, 50113163, 0465255, 5857450, 6729450899, 1026319, 4655389389 ####[facility] (DEFAULT)[address] [place] [address] 47906 CO2 [Moles/Vol] 24 mmol/L Normal 21-32 [facility] Comment on above: Performed By: #### 7 466079, 4932897964, 3387873, 72386504, 4470593, 2003319, 1999249585, 7345192, 3738295751 ####[facility] (DEFAULT)[address] [place] [address] 74526 Creatinine [Mass/Vol] 1.10 mg/dL Normal 0.60-1.30 [facility] Comment on above: Performed By: #### 7 499075, 8791999877, 4471160, 94209636, 5913026, 7042487, 9503759358, 7524746, 7943586150 ####[facility] (DEFAULT)[address] [place] [address] 32602 Globulin (S) [Mass/Vol] 4.2 g/dL Normal 1.5-4.3 [facility] Comment on above: Performed By: #### 7 826197, 6616722046, 8395077, 45359354, 8069656, 5537682, 1732816626, 9336985, 7008570458 ####[facility] (DEFAULT)[address] [place] [address] 39037 Glucose [Mass/Vol] 97.0 mg/dL Normal 74.0-118.0 [facility] Comment on above: Performed By: #### 7 598337, 2290369690, 9480399, 82771215, 8581819, 3821216, 9174623851, 6045855, 8024178897 ####[facility] (DEFAULT)[address] [place] [address] 34309 Osmolality 278 mOsm/L Invalid Interpretation Code [facility] Comment on above: Performed By: #### 7 702580, 9320772962, 0090732, 43408962, 0364731, 7088117, 2281679400, 1554714, 4233713712 ####[facility] (DEFAULT)[address] [place] [address] 11014 Potassium [Moles/Vol] 3.5 mmol/L Low 3.6-5.1 [facility] Comment on above: Performed By: #### 7 580543, 0974517061, 9749545, 35635301, 0581872, 9178322, 3717686673, 8842066, 3496000520 ####[facility] (DEFAULT)[address] [place] [address] 77209 Protein [Mass/Vol] 8.9 g/dL High 6.5-8.1 [facility] Comment on above: Performed By: #### 7 463636, 0147556658, 4547227, 07452074, 6058645, 7084724, 9581345960, 3497831, 0126209495 ####[facility] (DEFAULT)[address] [place] [address] 33891 Sodium [Moles/Vol] 139.0 mmol/L Normal 136.0-144.0 [facility] Comment on above: Performed By: #### 7 415780, [id number], 4120207, 44468039, 5367490, 9124390, 4498156754, 1362457, 9648886422 ####[facility] (DEFAULT)[address] [place] [address] 55637 Urea nitrogen [Mass/Vol] 15 mg/dL Normal 8-26 [facility] Comment on above: Performed By: #### 7 375322, 5980587166, 8137237, 34362500, 3176211, 0823286, 0433196980, 6531345, 6661707473 ####[facility] (DEFAULT)[address] [place] [address] 98100 Urea nitrogen/Creatinine [Mass ratio] 14.0 mg/mg Normal 4.6-16.2 [facility] Comment on above: Performed By: #### 7 188727, 9648476354, 1493114, 16350312, 9816432, 7444190, 1767035393, 4063542, 0358666527 ####[facility] (DEFAULT)[address] [place] [address] Head or Brain w/o Contras ton [...] Ha 12/21/21 9:19 pm Technologist: Erwin CHAUDHARI [facility] D-Dimeron 12-21-2021 D-Dimer 0.49 mg/L FEU Normal 0.19-0.50 [facility] Comment on above: Result [...] Liver cirrhosis ? Performed By: #### 7 698676, 2900827560, 4280450, 51103365, 0877780, 4927992, 1398938900, 9060710, 0041210700 ####[facility] (DEFAULT)[address] [place] [address] ED Note - Otheron 12-21-2021 ED Note - Other Neurology called back from [facility], on phone with Mariajose LLANES [Electronically Signed on: 12/21/2021 21:29 EDT] Nadya Garcia [Verified on: 12/21/2021 21:29 EDT] Nadya Garcia [facility] ED Note - Other paging Neurology through [facility] for consult for Mariajose LALNES [Electronically Signed on: 12/21/2021 21:12 EDT] Nadya Garcia [Verified on: 12/21/2021 21:12 EDT] Nadya Garcia [facility] ED Note - Physicianon 2021 [...] - pharynx pink and moist. NECK: -Supple (emit-[id number]): non-tender. CARD: -Rate and rhythm: Regular -Edema: [...] I di (more content not included)... Normal [facility] ED Note-Nursingon 12-21-2021 ED Note-Nursing Callisthenics Instructor assumed care for pt at 2124. Pt had fluids running at that time. Will continue to give the rest of the liter per VO from MARIO ALBERTO. PA also stated that after speaking with neuro, pt is to be transferred to [facility] for MRI and further evaluation. Normal [facility] Ethanol.on 12-21-2021 Ethanol Level 9.0 mg/dL High 0.0-5.0 [facility] Comment on above: Performed By: #### 2 [id number] #### [facility] (DEFAULT) [address] [place] [address] 87430 Extra [place]well 12-21-2021 Tube Collected Yes Invalid Interpretation Code [facility] Comment on above: Performed By: #### 2 700352, [id number] #### [facility] (DEFAULT) [address] [place] [address] 76104 Extra Redon 12-21-2021 Tube Collected Yes Invalid Interpretation Code [facility] Comment on above: Performed By: #### 7 119637, 3063708632, 9659355, 29891566, 4248545, 5364883, 7654722851, 7755701, [id number] #### [facility] (DEFAULT) [address] [place] [address] 25138 Magnesiumon 12-21-2021 Magnesium [Mass/Vol] 2.02 mg/dL Normal 1.80-2.50 [facility] Comment on above: Performed By: #### 7 784294, 8442411385, 2262690, 72284260, 9929667, 6957671, 0565343149, 2659370, 7038326527 ####[facility] (DEFAULT)[address] [place] [address] PTon 12-21-2021 INR Coag (PPP) [Relative time] 0.94 {INR} Normal 0.91-1.11 [facility] Comment on above: Performed By: #### 7 133343, 8067648322, 0852165, 92318919, 2157546, 5025328, 9012806937, 9257270, 9851718745 ####[facility] (DEFAULT)[address] [place] [address] PT 10.2 second(s) Normal 9.7-11.8 [facility] Comment on above: Performed By: #### 7 904377, 6834867682, 3670914, 40454656, 6731068, 2793597, 6737588217, 7324831, 8177489439 ####[facility] (DEFAULT)[address] [place] [address] 09828 PTTon 12-21-2021 PTT 26 second(s) Normal 25-35 [facility] Comment on above: Performed By: #### 7 222621, 8060196103, 0704720, 31042229, 5188476, 0612119, 0145278918, 8863969, 2246660305 ####[facility] (DEFAULT)[address] [place], [place] [address] Test Urine 1 U Preg Negative Normal [facility] Comment on above: Performed By: #### 1 [id number], 849591410 ####[facility] (DEFAULT)[address] [place] [address] U Preg Internal Control Pass Normal [facility] Comment on above: Performed By: #### 1 063954861, 233933617 ####[facility] (DEFAULT)[address] [place] [address] 51791 Salicylateon 12-21-2021 Salicylate Lvl <4.0 Normal 0.0-30.0 [facility] Comment on above: Result Comment: Sali cylate ranges less than 30 mg/dL are considered to be therapeutic. Levels greater than 30 mg/dL are considered toxic and levels greater than 60 mg/dL may be lethal. Performed By: #### 2 261504, [id number] #### [facility] (DEFAULT) [address] [place] [address] 38939 TnI HSon 12-21-2021 Troponin I High Sensitivity <2 Normal <=15 [facility] Comment on above: Result Comment: Male Baseline Delta 1Hr (Note pg/mL=ng/L) <20pg/mL 50-60% >20pg/mL 20% Female Baseline Delta 1Hr <15pg/mL 50-60% >15pg/mL 20% Other Baseline Delta 1Hr <18ng/mL 50-60% >18ng/mL 20% ([employer] Guidelines February 2018) Performed By: #### 7 256140, 6510590499, 2926213, 35584455, 3105697, 1644405, 0290752439, 1728624, 3564511225 ####[facility] (DEFAULT)[address] [place] [address] 54432 Triage Panel 1212-21-2021 Triage Internal Control Pass Normal [facility] Comment on above: Performed By: #### 1 [id number] ####[facility] (DEFAULT)[address] [place] [place] [address] 47040 U Amph Scr Negative Normal [facility] Comment on above: Performed By: #### 1 [id number] ####[facility] (DEFAULT)[address] [place] [address] 23346 U Vanesa Scr Negative [facility] Comment on above: Performed By: #### 1 [id number] ####[facility] (DEFAULT)[address] [place] [address] 35191 U Benzodia Scr Negative Normal [facility] Comment on above: Performed By: #### 1 [id number] ####[facility] (DEFAULT)[address] [place] [place] [address] 41892 U Cannab Scrn Negative [facility] Comment on above: Performed By: #### 1 [id number] ####[facility] (DEFAULT)[address] [place] [address] 64246 U Cocaine Scr Negative [facility] Comment on above: Performed By: #### 1 [id number] ####[facility] (DEFAULT)[address] [place] [address] 54748 U Methadone Scr Negative [facility] Comment on above: Performed By: #### 1 [id number] ####[facility] (DEFAULT)[address] [place] [address] 84264 U Methamp Scrn Negative [facility] Comment on above: Performed By: #### 1 [id number] ####[facility] (DEFAULT)[address] [place] [address] 41246 U Opiate Scr Negative [facility] Comment on above: Performed By: #### 1 [id number] ####[facility] (DEFAULT)[address] [place] [address] 29274 U Oxycod Scr Negative [facility] Comment on above: Performed By: #### 1 [id number] ####[facility] (DEFAULT)[address] [place] [address] 91048 U Phencyclidine Scr Negative [facility] Comment on above: Performed By: #### 1 [id number] ####[facility] (DEFAULT)[address] [place] [address] 14920 U Propoxyphene Scr Negative [facility] Comment on above: Performed By: #### 1 [id number] ####[facility] (DEFAULT)[address] [place] [address] 74406 U Tricyclic Antidepress Scr Negative [facility] Comment on above: Result Comment: [...] PPX Propoxyphene (Norpropoxyphene): 300 ng/mL THC Cannabinoids (78-zig-9-carboxy- -THC): 50 ng/mL TCA Tricyclic-Antidepressants (Desipramine): 300 ng/mL Performed By: #### 1 [id number] ####[facility] (DEFAULT)[address] [place] [address] Urine Source Clean Catch [facility] Comment on above: Performed By: #### 1 [id number] ####[facility] (DEFAULT)[address] [place] [address] UA w Culture if Ind Standard on 12-21-2021 Color (U) Yellow [facility] Comment on above: Performed By: #### 1 [id number], [id number] ####[facility] (DEFAULT)[address] [place] [address] Culture? Not Indicated Invalid Interpretation Code [facility] Comment on above: Result Comment: Resu lt created by rule GL_MAGR_ADD_UA_[id number] Performed By: #### 1 [id number], [id number] ####[facility] (DEFAULT)[address] [place] [address] Glucose (U) [Mass/Vol] Negative [facility] Comment on above: Performed By: #### 1 [id number], [id number] ####[facility] (DEFAULT)[address] [place] [address] 09644 Ketones Ql (U) Negative [facility] Comment on above: Performed By: #### 1 [id number], [id number] ####[facility] (DEFAULT)[address] [place] [address] 61842 Micro? Not Indicated Invalid Interpretation Code [facility] Comment on above: Result Comment: Resu lt created by rule GL_MAGR_ADD_UA_MICRO Performed By: #### 1 [id number], [id number] ####[facility] (DEFAULT)[address] [place] [address] 49643 UA Bilirubin Negative Normal [facility] Comment on above: Performed By: #### 1 [id number], 805892784 ####[facility] (DEFAULT)[address] [place] [address] 23398 UA Blood Negative Normal NEGATIVE [facility] Comment on above: Performed By: #### 1 [id number], [id number] ####[facility] (DEFAULT)[address] [place] [address] 04383 UA Clarity CLEAR Normal CLEAR [facility] Comment on above: Performed By: #### 1 [id number], [id number] ####[facility] (DEFAULT)[address] [place] [address] 93618 UA Leuk Est Negative Normal NEGATIVE [facility] Comment on above: Performed By: #### 1 [id number], [id number] ####[facility] (DEFAULT)[address] [place] [address] 71203 UA Nitrite Negative Normal NEGATIVE [facility] Comment on above: Performed By: #### 1 [id number], [id number] ####[facility] (DEFAULT)[address] [place] [place] [address] 97957 UA pH 6.5 Normal 5-8 [facility] Comment on above: Performed By: #### 1 [id number], [id number] ####[facility] (DEFAULT)[address] [place] [address] 81205 UA Protein Negative Normal NEGATIVE [facility] Comment on above: Performed By: #### 1 [id number], [id number] ####[facility] (DEFAULT)[address] [place] [place] [address] 98102 UA Spec Grav <=1.005 Normal 1.001-1.035 [facility] Comment on above: Performed By: #### 1 [id number], [id number] ####[facility] (DEFAULT)[address] [place] [place] [address] 59582 UA Urobilinogen 0.2 mg/dL Normal 0.2-1.0 [facility] Comment on above: Performed By: #### 1 [id number], [id number] ####[facility] (DEFAULT)[address] [place] [place] [address] 07823 Breakpoint UA Normal [facility] Comment on above: Performed By: #### 1 [id number], [id number] ####[facility] (DEFAULT)[address] [place] [place] [address] 29939 Urine Source Clean Catch Normal [facility] Comment on above: Performed By: #### 1 [id number], [id number] ####[facility] (DEFAULT)[address] [place] [address] 74054 XR Chest 2 Viewson 2 XR Chest [...] 12/21/21 9:38 pm Technologist: Obed BELLE Normal [facility] CARDIAC HUMAIRA ADMITon 021 CK [Catalytic activity/Vol] 117 U/L Normal 30-135 [facility] Comment on above: Performed By: #### T SH, CMADM, CMP #### [facility] [address] [address] Nelida Lily CK.MB [Mass/Vol] 1.16 ng/mL Normal <=2.37 [facility] Comment on above: Performed By: #### T JOÃO LOCK, CMP #### [facility] [address] [place] [address] Neliad Lily HSTROP <4.0 Normal 4.0-35.5 [facility] Comment on above: Result Comment: CUT- OFF POINTS HAVE BEEN ESTABLISHED BASED ON THE FOURTH UNIVERSAL DEFINITIONS OF MYOCARDIAL INFARCTION. THE UPPER REFERENCE LIMIT (URL) OF TROPONIN, DEFINED THE 99TH PERCENTILE OF cTnI DISTRIBUTION IN A REFERENCE POPULATION, HAS BEEN CONFIRMED THE DECISION THRESHOLD FOR ND DIAGNOSIS. Performed By: #### T JOÃO LOCK, CMP #### [facility] [address] [place] [address] Nelida Lily NGA 41.0 ng/mL Normal <=61.5 [facility] Comment on above: Performed By: #### T JOÃO LOCK, CMP #### [facility] [address] [place] [address] Nelida Lily CBC AUTO DIFFon 02-23-2021 BASO # 0.1 103/ul Normal 0.0-0.1 [facility] Comment on above: Performed By: #### C BC #### [facility] [address] [place] [address] Neliad Lily Basophils/100 WBC (Bld) 1.0 % Normal 0.2-2.0 [facility] Comment on above: Performed By: #### C BC #### [facility] [address] [place] [address] Nelida Lily EO # 0.1 103/ul Normal 0.0-0.7 [facility] Comment on above: Performed By: #### C BC #### [facility] [address] [place], [place] [id number] Nelida Lily Eosinophils/100 WBC (Bld) 2.2 % Normal 0.9-7.0 [facility] Comment on above: Performed By: #### C BC #### [facility] [address] [place], [place] [address] Nelida Lily Erythrocyte distribution width (RBC) [Ratio] 14.2 % Normal 11.0-15.0 [facility] Comment on above: Performed By: #### C BC #### [facility] [address] [place] [address] Nelida Bautista Hematocrit (Bld) [Volume fraction] 40.6 % Normal 36.0-48.0 [facility] Comment on above: Performed By: #### C BC #### [facility] [address] [place] [address] Nelida Bautista Hemoglobin (Bld) [Mass/Vol] 13.3 g/dL Normal 12.0-16.0 [facility] Comment on above: Performed By: #### C BC #### [facility] [address] [place] [address] Nelidajose Bautista IG # 0.02 10e3/ul Normal 0.00-0.03 [facility] Comment on above: Performed By: #### C BC #### [facility] [address] [place] [address] Nelida Bautista IG % 0.4 % Normal 0.0-0.5 [facility] Comment on above: Performed By: #### C BC #### [facility] [address] [place] [address] Nelidajose Bautista LYMPH # 1.7 103/ul Normal 1.2-3.8 [facility] Comment on above: Performed By: #### C BC #### [facility] [address] [place] [address] Nelida Bautista Lymphocytes/100 WBC (Bld) 34.6 % Normal 20.5-60.0 [facility] Comment on above: Performed By: #### C BC #### [facility] [address] [place] [address] Nelida Bautista MANUAL DIFF REQ NO Normal [facility] Comment on above: Performed By: #### C BC #### [facility] [address] [place] [address] Nelida Bautista MCH (RBC) [Entitic mass] 31.5 pg Normal 26.7-34.0 [facility] Comment on above: Performed By: #### C BC #### [facility] [address] [id number] Nelida Bautista MCHC (RBC) [Mass/Vol] 32.8 g/dL Normal 29.9-35.2 [facility] Comment on above: Performed By: #### C BC #### [facility] [address] [id number] Nelida Bautista MCV (RBC) [Entitic vol] 96.2 fL Normal 81.0-99.0 [facility] Comment on above: Performed By: #### C BC #### [facility] [address] [id number] Nelida Bautista MONO # 0.4 103/ul Normal 0.3-0.8 [facility] Comment on above: Performed By: #### C BC #### [facility] [address] [place] [address] Nelida Bautista Monocytes/100 WBC (Bld) 7.1 % Normal 1.7-12.0 [facility] Comment on above: Performed By: #### C BC #### [facility] [address] [place], [place] [address] Nelida Bautista NEUT # 2.7 103/ul Normal 1.4-6.5 [facility] Comment on above: Performed By: #### C BC #### [facility] [address] [place], [place] [address] Nelida Bautista Neutrophils/100 WBC (Bld) 54.7 % Normal 43.0-75.0 [facility] Comment on above: Performed By: #### C BC #### [facility] [address] [id number] Nelidajose Bautista Platelet mean volume (Bld) [Entitic vol] 9.8 fL Normal 9.5-13.5 [facility] Comment on above: Performed By: #### C BC #### [facility] [address] [place], [place] [address] Nelida Lily PLT 320 103/ul Normal 150-450 [facility] Comment on above: Performed By: #### C BC #### [facility] [address] [place] [address] Nelida Bautista RBC 4.22 106/ul Normal 4.20-5.40 [facility] Comment on above: Performed By: #### C BC #### [facility] [address] [place] [address] Nelida Kimbleen WBC 4.9 103/ul Normal 4.0-11.0 [facility] Comment on above: Performed By: #### C BC #### [facility] [address] [place], [place] [id number] Nelidajose Bautista CT STROKE HEAD WOon 02-24-20 [...] JANESSA SKINNER Date: 2021-02-23 13:52 Normal [facility] ER URINE PROFILEon Bilirubin Ql (U) Negative Normal NEGATIVE [facility] Comment on above: Performed By: #### E RUR #### [facility] [address] [place] [address] Nelida Lily Clarity (U) CLEAR Normal CLEAR [facility] Comment on above: Performed By: #### E RUR #### [facility] [address] [place] [address] Nelida Lily Color (U) LT. YELLOW Normal YELLOW [facility] Comment on above: Performed By: #### E RUR #### [facility] [address] [place], [place] [id number] Nelida Lily ERUAHD A micrscopic examination will be performed if indicated. Normal [facility] Comment on above: Performed By: #### E RUR #### [facility] [address] [place], [place] [id number] Nelida Lily Glucose Ql (U) Negative Normal NEGATIVE [facility] Comment on above: Performed By: #### E RUR #### [facility] [address] [place] [address] Nelida Lily Hemoglobin Ql (U) Negative Normal NEGATIVE [facility] Comment on above: Performed By: #### E RUR #### [facility] [address] [place] [address] Nelida Lily Ketones Ql (U) Negative Normal NEGATIVE [facility] Comment on above: Performed By: #### E RUR #### [facility] [address] [place] [address] Nelida Lily LEUKOCYTES Negative Normal NEGATIVE [facility] Comment on above: Performed By: #### E RUR #### [facility] [address] [place], [place] [id number] Nelida Lily Nitrite Ql (U) Negative Normal NEGATIVE [facility] Comment on above: Performed By: #### E RUR #### [facility] [address] [place], [place] [id number] Nelida Lily pH (U) 8.0 [pH] Normal 5-9 [facility] Comment on above: Performed By: #### E RUR #### [facility] [address] [place], [place] [id number] Nelida Lily SPEC GRAVITY 1.020 Normal 1.005-<=1.025 [facility] Comment on above: Performed By: #### E RUR #### [facility] [address] [place] [address] Nelida Lily UA PROTEIN Negative Normal NEGATIVE/ TRACE [facility] Comment on above: Performed By: #### E RUR #### [facility] [address] [place] [address] Nelida Lily UR MICRO IND NOT INDICATED Normal [facility] Comment on above: Performed By: #### E RUR #### [facility] [address] [place], [place] [id number] Nelida Bautista Urobilinogen Qn (U) 0.2 {Jose Carlos'U}/dL Normal 0.2 - 1. 0 [facility] Comment on above: Performed By: #### E RUR #### [facility] [address] [place], [place] [id number] Nelida Bautista POINT OF CARE GLUCOSEon 01-27 Glucose [Mass/Vol] 95 mg/dL Normal 74-106 [facility] Comment on above: Performed By: #### P OCGLUC #### [facility] [address] [place] [address] Nelida Kimbleen PREG HCG QUALon 02-23-2021 , QUAL Negative Normal NEGATIVE [facility] Comment on above: Performed By: #### P REG #### [facility] [address] [place] [address] Nelida Bautista PROF 14(COMP METB)on 021 Albumin [Mass/Vol] 3.6 g/dL Normal 3.5-5.0 [facility] Comment on above: Performed By: #### T JOÃO LOCK, CMP #### [facility] [address] [place] [address] Nelida Lily Albumin/Globulin [Mass ratio] 0.9 {ratio} Normal [facility] Comment on above: Performed By: #### T JOÃO LOCK, CMP #### [facility] [address] [place] [address] Nelida Lily ALP [Catalytic activity/Vol] 103 U/L Normal 38-126 [facility] Comment on above: Performed By: #### T JOÃO LOCK, CMP #### [facility] [address] [place] [address] Nelida Bautista ALT [Catalytic activity/Vol] 35 U/L Normal 9-52 [facility] Comment on above: Performed By: #### T JOÃO LOCK, CMP #### [facility] [address] [id number] Nelida Lily Anion gap [Moles/Vol] 13.3 mmol/L Normal [facility] Comment on above: Performed By: #### T JOÃO LOCK, CMP #### [facility] [address] [id number] Nelida Lily AST [Catalytic activity/Vol] 28 U/L Normal 14-36 [facility] Comment on above: Performed By: #### T JOÃO LOCK, CMP #### [facility] [address] [address] Nelida Lily Bilirubin [Mass/Vol] 0.2 mg/dL Normal 0.2-1.3 [facility] Comment on above: Performed By: #### T JOÃO LOCK, CMP #### [facility] [address] [address] Nelida Lily Calcium [Mass/Vol] 9.0 mg/dL Normal 8.4-10.2 [facility] Comment on above: Performed By: #### T JOÃO LOCK, CMP #### [facility] [address] [address] Nelida Lily Chloride [Moles/Vol] 108 mmol/L Critically high 98-107 [facility] Comment on above: Performed By: #### T JOÃO LOCK, CMP #### [facility] [address] [id number] Nelida Lily CO2 [Moles/Vol] 25.8 mmol/L Normal 22.0-30.0 [facility] Comment on above: Performed By: #### T JOÃO LOCK, CMP #### [facility] [address] [id number] Nelida Lily Creatinine [Mass/Vol] 1.00 mg/dL Normal 0.52-1.04 [facility] Comment on above: Performed By: #### T JOÃO LOCK, CMP #### [facility] [address] [id number] Nelida Lily EGFR-AF TUNISIAN >60 Normal >=60 [facility] Comment on above: Performed By: #### T HAYDE CMADM, CMP #### [facility] [address] [place], [place] [address] Nelida Lily EGFR-NON AF TUNISIAN >60 Normal >=60 [facility] Comment on above: Performed By: #### T HAYDE CMADM, CMP #### [facility] [address] [place], [place] [address] Nelida Lily Globulin (S) [Mass/Vol] 4.2 g/dL Normal [facility] Comment on above: Performed By: #### T HAYDE CMADM, CMP #### [facility] [address] [id number] Nelida Lily Glucose [Mass/Vol] 95 mg/dL Normal 74-106 [facility] Comment on above: Performed By: #### T HAYDE CMADM, CMP #### [facility] [address] [address] Nelida Lily Potassium [Moles/Vol] 4.1 mmol/L Normal 3.4-5.0 [facility] Comment on above: Performed By: #### T JOÃO LOCK, CMP #### [facility] [address] [id number] Nelida Lily Protein [Mass/Vol] 7.8 g/dL Normal 6.1-8.2 [facility] Comment on above: Performed By: #### T HAYDE CMADM, CMP #### [facility] [address] [id number] Nelida Lily Sodium [Moles/Vol] 143 mmol/L Normal 137-145 [facility] Comment on above: Performed By: #### T HAYDE CMADM, CMP #### [facility] [address] [id number] Nelida Lily Urea nitrogen [Mass/Vol] 10.0 mg/dL Normal 7.0-17.0 [facility] Comment on above: Performed By: #### T HAYDE CMADM, CMP #### [facility] [address] [id number] Nelida Lily Urea nitrogen/Creatinine [Mass ratio] 10.0 mg/mg Normal [facility] Comment on above: Performed By: #### T HAYDE, RAYDM, CMP #### [facility] [address] [address] Nelida Bautista TSHon 02-23-2021 TSH 1.157 uIU/mL Normal 0.470-4.680 [facility] Comment on above: Performed By: #### T RAY LOCKDM, CMP #### [facility] [address] [address] Nelida Lily TSH RANGE SEE BELOW Normal [facility] Comment on above: Result Comment: <0.3 4 UIU/ml HYPERTHYROID 0.34-5.60 UIU/ml EUTHYROID >5.60 UIU/ml HYPOTHYROID Performed By: #### T JOÃO LOCK, CMP #### [facility] [address] [address] Nelida Bautista XR CHEST 1 Von 02-23-2021 [...] JANESSA SKINNER Date: 2021-02-23 13:53 Normal [facility] Encounters Encounter Date Encounter Type Care Provider Facility Start: 12-16-2023 End: 12-16-2023 ambulatory SHAWNA RICHTER Not Available Start: 11-18-2023 End: 11-18-2023 ambulatory MARYANN ZACKERY Not Available Start: 10-21-2023 End: 10-21-2023 ambulatory SHAWNA RICHTER Not Available Start: 09-23-2023 End: 09-23-2023 ambulatory MARYANN ZACKERY Not Available Start: 08-22-2023 End: 08-22-2023 ambulatory MARYANN ZACKERY Not Available Start: 12-22-2021 End: 12-22[facility] Start: 02-23-2021 End: 02-23-[address] [facility] Facility:H1 Payers Date Payer Category Payer Unknown [id number] 1985 Unknown [id number] 2.16.84 [id number] 1985 Unknown [id number] 2.16.84 [id number] 1985 Unknown [id number] 2.16.84 [id number] 1987 Unknown [id number] 2.16.84 [id number] 1987 Unknown [id number] 2.16.84 [id number] 1987 Unknown [id number] 2.16.84 [id number] 1959 Unknown [id number] Summary Purpose Family History No Family History Records FoundNo Family History Records FoundNo Family History Records FoundNo Family History Records Found Advance Directives No Advanced Directives Records FoundNo Advanced Directives Records FoundNo Advanced Directives Records FoundNo Advanced Directives Records Found Additional Source Comments INFORMATION SOURCE (unrecogn ized section and content) DATE CREATED AUTHOR 02/28/2021 [facility] DATE CREATED AUTHOR AUTHOR'S ORGANIZ ATION 12/24/2021 [facility] DATE CREATED AUTHOR AUTHOR'S ORGANIZ ATION 01/01/2022 [facility] DATE CREATED AUTHOR AUTHOR'S ORGANIZ ATION 12/18/2023 [facility] EPIC FOR RECORDS PERTAINING TO [...] BASED ON THE PRIMARY CLINICAL RECORDS. [employer] [facility]. provides no warranty or guarantee of the accuracy or completeness of information in this document.
== END 2023-12-25 14:18 | disposition home or self-care (01) ==
LOC: FBCO 10:19
PROVIDERS: Visit Provider Obstetrics & Gynecology
DX: O24.419 Gestational diabetes mellitus in pregnancy, unspecified control (principal)
CPT/HCPCS: G0108

== ENCOUNTER 2024-01-13 06:59 | Outpatient (OUT) | payer BC, SELFPAY ==
--- NOTE | 2024-01-13 09:59 | US_ITS ---
[address] [address] Patient Name: LOCO HICKS MRN: [id number] date: 1985 Sex: F Assigned Patient Location: [facility] Current Patient Location: Accession/Order Number: [id number] Exam Date: 01/13/2024 10:00 Report Date: 01/13/2024 11:41 At the request of: MARYANN VIZCARRA Procedure: US OB BPP w non-stress EXAMINATION: US OB BPP w non-stress HISTORY: Gestational diabetes mellitus O24.419 COMPARISON: No relevant comparison available. TECHNIQUE: Ultrasound biophysical profile was performed in the radiology department. BREATHING MOVEMENTS: 2.0 GROSS BODY MOVEMENTS: 2.0 TONE: 2.0 QUALITATIVE AMNIOTIC FLUID VOLUME: 2.0 PRESENTATION: CEPHALIC HEART RATE: 139.2 bpm bpm. AMNIOTIC FLUID VOLUME: 11.4 cm GESTATIONAL AGE: 32 weeks 2 days CONCLUSION: Total biophysical profile score 8.0. Electronically authenticated by: JANESSA SKINNER Date: 01/13/2024 11:41
[2024-01-13 10:33] VITALS: BP 119/77; PULSE 78
== END 2024-01-13 11:05 | disposition home or self-care (01) ==
LOC: US 07:00 → FBC 09:57
PROVIDERS: Visit Provider Obstetrics & Gynecology
DX: O24.419 Gestational diabetes mellitus in pregnancy, unspecified control (principal); Z3A.32 32 weeks gestation of pregnancy
CPT/HCPCS: 76818

== ENCOUNTER 2024-01-15 08:02 | Outpatient (OUT) | payer BC, SELFPAY ==
--- NOTE | 2024-01-15 08:05 | US_ITS ---
[address] [address] Patient Name: LOCO HICKS MRN: [id number] date: 1985 Sex: F Assigned Patient Location: [facility] Current Patient Location: [facility] Accession/Order Number: [id number] Exam Date: 01/15/2024 08:05 Report Date: 01/15/2024 14:12 At the request of: MARYANN VIZCARRA Procedure: US OB growth EXAMINATION: US OB growth HISTORY: ADVANCE MATERNAL AGE COMPARISON: Ultrasound OB growth 12/16/2023 FINDINGS: Heart Rate: 136 bpm Amniotic Fluid Volume: 11.0 cm Number: 1 Position: CEPHALIC BIOMETRY: BPD: 8.01 cm cm; 32 weeks 1 day; 30.10 %% HC: 29.90 cm cm; 33 weeks 1 day; 26.50 %% AC: 28.77 cm cm; 32 weeks 5 days; 56.40 %% FL: 6.10 cm cm; 31 weeks 5 days; 16.60 %% EFW: 1968.41 g; 35.50 % FL/AC: 21.20 FL/BPD: 76.15 HC/AC: 1.04 GESTATIONAL AGE: Age by EDC: 32 weeks 4 days DEEPALI by EDC: 2024-03-07 Age by US: 32 weeks 3 days DEEPALI by US: 2024-03-08 US/US OB growth IMPRESSION: 1. Single live intrauterine with growth detailed above. Electronically authenticated by: JANESSA SKINNER Date: 01/15/2024 14:12
--- OUTSIDE RECORDS SUMMARY | 2024-01-15 08:07 | XMS_ITS | CCD ---
Author Organization [facility] Care Team Providers Care Venereal Disease Control Head Name Role Phone HAMZAH, DR OLSON Primary Care Unavailable PAY, DR OLSEN Admitting Unavailable PAY, DR OLSEN Attending Unavailable ZIEBER, DR JANESSA Davila Consulting Unavailable PAY, DR OLSEN Consulting Unavailable SCHJARVIS REED Referring Unavailable JARVIS RODRIGUEZ Primary Care Unavailable [...] Coding Summaryon 12-31-2021 Coding Summary HTMLBase 64 IuicqqrlJBa4qIr+PGhl YWQ+RF0WIDRvU66itUQr zA7GV3pUJS1PIFCZNKLB ZL2PIJ3fgPZ7DGyhL2Sl biAv VkxfbLXhQO92LUo1ZUS6 rXhaBQmntH6rsZZdQ6o3 ZuKlZH72xE58GOctPUSn GoQ6JjFvcflawLLw V2krLoJkrKMiCsd+PHRh YmxlIHdpZHRoPScxMDAl YxVrfAwwWJ1yDw8tSITt LWNvbGxhcHNlOiBj o9fwLYBiEEvcRD9jsKzm I0ShrMO6IVGee7f5Zu66 dHI+JJGcRSR0nPrhACpy z027AsDwn1omHOW6 bYUiCYjwTAV6U82yj4Z1 PHZbJQVdOYI5pHU4vO1s tYbdtbdlB7GkjREdTfZ9 SPN2mGPgnI9huAkm agverX2eIyh+C16PXR1Q FAVYUK4FItv0M1IcIotz dHI+RJ28RCWcYK67jFNg hEUou3vrvPi3JaJa OLMfXRI9nSkiXDvkv2Bv PXSfJ86tpKOes2J5SKJd rXzyaBWoMvDqrTS0xH2i XImjxlihy8unimow Mcqwv0ceuv59iG34A79r MAcoXRHjOMH0UFBfPAGy xMpijx9agN3vUr2+IDxj b0jlx1poaUm5SyWx QBRmmrLfwAjoZGA7g8Gv Bh06M4ZxmTjsf0NtYox4 sd69hXIbv4S7cSG5JXul KPKoyY0zLVhmKhF0 RUVfOwAalH47kHEiRNxo Et8suOayaZnpXS5jYLUt nraaZQWekH4zQSXpyXXb yFgkOL5pDDWlhaug k989JzPmUSE6KOQwjPGa W8GvfC9kObStMFAwXSWd G3HppHYrDGrxT383HGsm NjX0NZGhtvZyE0Rm JAUsvCpkTrC5n4N7Uu6J p5LjxcafWLB6VLqqRRO9 GsM1FoJuWmE0V9SpYhh0 VZDomSnzDH6oT0By PCTplrbpdddxoCB5LEUd IFRvfB00nKIgKCdtGl9k h4W7u603FMPgZQRnjA32 Ih7icDyrUJXaqVVI gM0wecmrt8eojofxSlCf AGDuPPr9LAo8EYIysHvw CaOvEKO9YzU4SDF4nEZk fC0cjJnjshjhoZ8m Oyc+Y39hoP3eVWK6RXE6 mtauSZObvhEqMR77AF74 N3MrSrebhQIglAW+PGRp daWtuIwsSZ0zDeGg q8lll4YaFWzoU4CtQIJz ULwkNzc2TCAzYRW7qKF4 fV6eYZGbCSurq6W9xRK0 H3UcxcUpel6jt2cc BNLoBKfgD88bjCGii1W6 QYKesYS7KJVstFalBsUv fF04Gcy+SVIbhAvyn0Mk Vscsi2qxk3ehaEl7 IjMwJSIgdmFsaWduPSJ0 k2CjJj73M03sTVcpRSDy MUUoKLHuCHKruGlwck7p tJ6dQz9+PGNvbCB3 xZY0kZ9oBTRoCcW6WTxs T356GqPckGVeBkwcb7vc n1scsYz9LhTxMIZdwcYw zDakQCG0x9RuGz26 L97vEWsqOPOlYDBdADBz QXLbnLipcs0afK2aYj4+ HF8tr8oxoh55kA21qBZ+ XJIrPVJ0mRvaFMgr NPHnlD2kMOtrKrR5NUEn OgPtwT53gYIbYNgwUq7t jSxxaZvmZW0pZGKhmmsl v345SpDan5ydNFDr oFXoUJkcYQH3I90dq3K6 ADQkLFHgOBG0bZR6iX7d bGlnbjogbGVmdDsgdmVy jQxoEVrqRWhsF894 IHRvcDsnPlBhdGllbnQg FuNzHQy6Z2IoJau4ACKh kKicWS2wxETvFJzrYh1g nBnxjWbkYS6bMJBr ospxw427MwGqp9bxQCMt uGQnYTljDXA1G45dq7C5 KOOrQQWdVPV6hIB6dY0n bGlnbjogbGVmdDsg ziUrvEhjXOzgEXumF720 IHRvcDsnPkJpcnRoIERh qVN9WV42XB19jLLrv6S8 hEI2C7MgAZPjibrh jdwigMU6NEPkEYAvsH21 Hk0dbLtpMn5aRMTwZTY8 VYZlqUHpV7IxvH4lMuQd DAMvCCMaH5IyqUDd WQlkT513KFnzMgR5JSIj rfFnP2EdQYLiiAjjTwQ3 e9Q5Ss4CP5Q2KF98QV96 dZNbr3E9cZM5C5In LBDjyxmjzxgqjQK9FYFy MRPwsT55Hk5lySxzGl5k HZOaRJH8KRPqfJMtL2Dd lM9xVfAcWESnYDOu N1JlhCTkLIivQ116RSkh SgU6YFQwncUmY9LsQWDk oWqgEtV7n7J6Hp9UIUo6 JD11MJ47aATww6E3 yLA7U6LeRXCbumvaqyyo lOE2ZOZbKXJksR02Xw2x dGwtPi0nDRVqCWR1AVJu fZSrO0DdaL2yMnYx LGAsNCScA5UhvCYgTRcb X753JXzhSvN3TOFxjfYj Q1OfDOQfcOhsTfZ2t6V5 So2NCNUoRO19SPR8 rYC4RT39SX92N2HoWrfc dGFibGU+PHRhYmxlIHdp ZHRoPScxMDAlJyBzdHls AU1xVw3sUMJiCNCy bZgycJQmVyPhy2zgUPGu UXnrER5kwRtjT4LbkPA5 TFKnm2l7Vc45X52qP4Lz dXA+CXMzyZY1gVK4 tV3gEzXnXhI2ZWybB577 TrQdnQSvZdtzb2yfj9lw tAu9SiA4GKPtbrAszUcr VVF9k1EwZo65Q23c IHdpZHRoPSIxNSUiIHZh nKbfvr5ttR5zAb9+PGNv uHL7xTI7uF3mVhNrQgO4 LMmrC712WkEntWQc Iejzh2iqi2tpsSu0MfMj IWJaefWqoJnzQOV9c6Wp Nx71Z0XjaMjvq0OvBcc1 jv60iPUrn4L5qBH2 X6SkDZDsegndtZLpzVqp JL4uUVSscytwPITknW7g GTFjB7b9VpQcQbG0KMai Q2YluwZ4WVHkrNZl ZBazHLZ9V80qo3G0IZVe AMIeXCU1vTV4fC5nkPei bjogbGVmdDsgdmVydGlj TUgeZVcyW114MDUo zIxtVCWxtL4gDHThqTBi kYfoBD8eRMCmindhSpqS MPJQSSSSEHIEHfNSRK61 ZM30uRCgc6H6bJV4 M5FzIVLjskzxjslmsMQ4 MBLvGAKucH88yTEpNHld Xb7pc3E9y341YHEpTCBv tL57Tx7swAzeMSTi pDWStR7jzrygb4tpmjbz BkZiIVSnEGn4BFk5PTNm wZjiWtQvMQQ0YjV2EDD7 jATeuT6smRziogmc oW5wJox+MDEvMDgvMTk4 ODwvdGQ+FEVdBLF8xGov KZizBMNsxB0lPVXwD7v6 DoBtJmL2MWrzV4Ag RPXvrkpfYt21fC1oArTt GhO4BCweX0FqkcG1UZVn cEQhBYhyGBS3F78hs2B0 BWLnXTUbHCH9mHH3 tD2ktGbcfhljyGMohFwy imApuLloTMipSVdyI246 MDSrhXcvNnI8PRjqEEQt QM33TM15bBUjp2V8 lWQ1J7VrJCNauxfaewkg vOP5APGeHPYzmE65tLGt TCdkPn3lu8Y8o050VFBg UOJimM67Qg1trBvh RDIpdKEFnN7qrholh9nf njeoDmHcGGZhSNa4LZv3 ULSjaWihXwUcBXI6JlY6 ASH2aKDbzM0dkOjh ebqyoI5dPym+RkVNQUxF CE33KV10dAYax1X3hMA8 H8DiTMDlqxquqzhdgAY2 CRVhQFGdqR67dILk NBgjPt4ka2Z4a132GCVm MOVdsH84Yl2smPryAYWl uXHDpP2ubbpck2bcfcmy MsExOQCeWZu8GDx3 LTWdmXihLfYaNAC9UhJ0 GEG0nUNijH0jfTrbjusa xZ4cPgc+P4V9N6JbGdgk dHI+HW15OXCiYM25 gPAypTGrs1fajZi7OqPy UXTcAPK2wLlnULpmi7Hz FIKcV42fsLIba4N3EBEo bGxhcHNlOyBlbXB0 tK3zPAfllhpnh3lsygvs Egjjj8gray41iZ49J39y IHdpZHRoPSIzMCUiIHZh sIumwe0jhI0xNk7+ QMXtuIS5zTY2bM6eGvGf PiP7PKpwB655SqBszKQx Jqugn5fle2tieTy1CzMv JSIgdmFsaWduPSJ0 n7GpCq70T86dSLzaXJBz UKImREPjSGWdqClnpn2w cN2sPe3+HM1te7mhoc21 kS96oLF+PHRkIHN0 xPkjFKarKJFpoS8lIPoh IhF2DOAgMvHxyD88aTIy YEuwFz4cnQaceLmeAV8a XIIefexdw176BpVl g8udINUwkPMcYNjyGQP3 P90rt2X4IGCsVDUrSVV9 eSO0jI1rqFnryfmuhUEt dDsgdmVydGljYWwt XTriD929XARutAioUrSl gEOnO4drqrXSXG8pTlin dGQ+NYXpKTB6nAbdOJjr CTMdtV5qSYMkO3n7 ZbYcHkW6MEffO3ElaiM2 FAYgoERuELBgdJLNwO1i zuham1lxsdgtQlKeXWWn EBd7NGj2BXYutZic CyRvWPT5IrA1BPU2oFVh lI2dfSghftbxlV8fPyl+ RklOOjwvdGQ+PHRkIHN0 hFgaSSfqBZCtwH5f WGJqX2t2TbEbPoF8BIno G4OjyhT8BKUopGRhFJOn kIMShH5hpdtdj9kijjza PyVzGBNiOSn0USs2 YLFcjRjfZmAcOXE6CrQ3 YLK4hKApmI1vvMxjyrbm zJ8yKhc+TVJOOjwvdGQ+ DDSyALZ0aTozIGxh XYEfeD8hIYYpC1l9MoOi UfO0BGlqR0RdadM1VYLx xYLsSJYsdAJZpX4roach d0stdyahYjLdLGAp EAw5FPw1YDXdgMwiRwKn LUT9CrN2BFK5dVKobX5y eTtagxplsO2dFud+UGF5 NOX6KN02YF32M9Vk PjwvdGFibGU+PHRhYmxl IHdpZHRoPScxMDAlJyBz dExcBW8kQk6zZFTjLFDc qZsjtJQzTvPqe7wc YXB (more content not included)... [place] Coding Summary HTMLBase 64 BhksyhbpVLz8lIi+PGhl YWQ+SE9VVMEaM61wpZZf xO7WF7aIGW2OXFUIGPOC YV3GAT9awJE8AYnpW2Fo biAv BmvmbGWpOD47ZDx8DBU5 mWyfDPghrC1pzJHyI4z4 CjLyZX83hU25XMrySMVo LkH8MiVbgxwjqDKj P7kiYjKysYUiJvj+PHRh YmxlIHdpZHRoPScxMDAl ZrWnoFynKP9pQr7hPYGy LWNvbGxhcHNlOiBj c0fyGIKwBElaED2xjCow J5WffAA8MXHqi3v6Nu96 dHI+XBOiJSM3jKieASes a917IkEuf3agTEZ8 vVAoELlhIAE0Y09zq8V2 ADDiREIyEBL6yKB1eL6j fXsjcuklS5VweBJpPqO8 HCD0pJYkuX5rzCdm rzcigZ2qTws+J10FHM0P QYEKOZ9NTuw3Y7ItZnfp dHI+UR76KBAoRW09gIHw qWSmi3aoyAw5ApNh XDTeAVZ8gIemRSiis3Ha LJQdN98ewPGwj8D6ZPQc eIaiqBLnXxYyqYL9jL3d ANakhbonj6uninvx Asowa4drmq74eV34N45y YHqjBGXgWPV8JRZoTUYd aYonml1veO6dGm7+IDxj q4dto0wtsZy7ZiAg TUKomnMovHicNJW6i5Fd Rl24N6GkhXsjb7ItYqg0 ly21eDWxx4C1mPA8EQwj RXIxbP4pCUmsVvF1 ABKxDcPhuH51sFMeLRue Ih8czXfofGqgAJ8rLEVf uimeDWPfkF2eGVZzdZAw yYsiCV7nDMAuhnft j100NpCzUZB7UPHncFVf R4RckA9pStKdEFHeHQRe M0RafSByWShvR649TLxw WxE7HBXgztQlM6Zg DHIflKaiIqN0a3W5Ei8Y l6GsaylrPHB1XVfuNUB4 HxA3HmKeIuR4Z4CkJfx5 MELsbLcbIG1gS5Ts XOXojmydeeiktQO1DSPe NLOsqA09gVDlHPdmUa2c c1I5u516UBDcGOQfhI68 Il8kpVorBBGwiXKZ oP0vctunf3kjsgjuCeYe OPXrRJv1PFx5IGXucPso TjIwCMW1GwU0UQQ7lZVz xJ1kiGidfvtwzA2e Oyc+A84jpV4yXNG6JRT0 kiqySPHwxgWdKJ49MI36 E2RiZolcaPXtsGA+PGRp viCmqMjiEO1yEkXc w2zii7ZfSTxeT8QjRWSd XJqaNdi2LKRzUPQ9oHW8 fC6yLANgLFnsx0Q6pNU4 U2IpaaBflq1ue5hj OJYlNMwaH34cqEFve5A1 SNQaeMM6WMGomNllRuNj oI39Keq+STBdaOsis6Qb Zyxbb2mvt0jpwRb4 IjMwJSIgdmFsaWduPSJ0 g0TtRk54Q37oQCfxDPPp CCZlIISvLMVlbKvngo4e gJ6oHr4+PGNvbCB3 wEK6vT4jQPHyKeJ8CSxb U748MnFhtYGmFuhru4jh s1ysdZh8GcLmTGPxiaCn iUziRJV2k4CaZa38 O17cSWcnZGVoLCAmCOXb QBDhbFzpwu1fdJ5lJg7+ MQ8ox3upjr23lF43hKQ+ MWWqIUZ8vBlnDFfy BYQdnS8dZIluCeK7HILr TvEsvO13fAZbBFrlPo0h kFgeeJijZB9bOVQwgplq z307KkYck7yiHWAg vQGyAMjbTNY2E49lz0P6 DFZySDZeYKT7aNR0fJ6h bGlnbjogbGVmdDsgdmVy qLqfYXjuDWrqX410 IHRvcDsnPlBhdGllbnQg WpAuQMo3F2TsWal5EYJr iKyyGR0ujLAuCTcrLe8n sRwcgOpaGQ2iEDJv yokoj394QrDkp1qtGDNn lGMxFFtxVLB6E38yv1Q4 XGTeCASkIVB3xSO4uE7f bGlnbjogbGVmdDsg erQdtZceRAudTTjjL253 IHRvcDsnPkJpcnRoIERh zOL6YQ87LD41oFNzi3M9 nCT9R7TcXJRwyqkb mpknoQP5SGEoKJAuhF80 Hp2abUekDr6lUSDdDAU1 GBBovTDoA4CxlW3wCuGo RWVhPQJkD3SwmBFg GUujI545BWebJzS6ZVBd ujBlM8EiROCqhCijDuG0 h3J6Ue2ZU4J1WV41EJ12 lTXtr4M9eRL7P6Bs XZQmmsnowoscvGR1IXYq QWUuhD40Xo9ulJmuRj0v FPSpSHS2GNKruATtE7Io aA2gCiAjCGBwSFSj X5PmeJKhXMkkF063EKur VcC9NOFdbbPdI6DjQVBx vEnwXtE1r5Q1Ry4CBVs7 SO68AT80zFKii0C6 pNZ2J9QyNMWayzzxwlfo lMC7YAGcIHBvsA82Vn2x lWnqLs5xIAOyIFT2JQCz mWNfG7TkuT7fZiVv RWHfPPOvO9ZowDEgEFdg L567PLbfEqJ9KECybrNb L5OhTYLnmWzbInI7k5Q9 Sv2CFEBfKT97DHV5 lJV8BC44ZH50T1WmNlaz dGFibGU+PHRhYmxlIHdp ZHRoPScxMDAlJyBzdHls MD5pDn4cAGDxCDEz uTxzkLUfVjKgb0xpRDLt LMilBM1weHnoO2JgsIE6 UTMla9p7Uo23G34xN7Tr dXA+EDJuoAB1zPF8 fP2xYbPiKsL6LEjsZ275 QeBwyIXfPuvhr5jus7lr bPy5MaB8VEBxpmJajUnr JHW1x6MoSi87R18u IHdpZHRoPSIxNSUiIHZh bUxiix8ohC9fZm8+PGNv qZO8dJL6lR0cMyDpRjU0 WNpzQ599JlAhlXYy Xekst4uxj5cqySk3XqMb NEKucvCifTajPNT0l6Be Wv03G7DetNbqv4VqAww9 zk05gOGoq9C2eFI4 Q9FcEUOmfghuxJEabJbr VI1bRGFlwuaiQKXpbM6h ZKMsT3a4GgMhOiW4VNko A3IbjnU7KHLvvAXf WNabQVH6Q24uy8R3GFQa JXCoQVY8eWM2hG9msNdx bjogbGVmdDsgdmVydGlj BTjtICvzE879DZYk fEnkPIFhsR7jYEVqjNOu uPbsEI7eBCFlouxmOhcP DWBTBGIAUNNMXzDPNN22 FA93ySMtt5K9nRU7 V7PxBCComacpwqjncGC9 WIStBQQkhW28gLTpEMgu Ho5mf1B1t743MOGqBOLn tP25Ah9eeUgbBLFz jWHQzW2njylwe1pbvjov SsFxPYTqAQi8ZFz9LAJe kFcfWwLpKXY0DjM1UCH7 nISyjD3haDbisfyn yV9qCbx+MDEvMDgvMTk4 ODwvdGQ+NDFtKZQ3fImn MPaoEEIlyY7rKYIoQ3f1 OsOjUuW6ZYywQ8Zl TSElgrlsWb38gH9xBiXx DyK6DRkkY6PhwdI3UYRh sLWjCExcITD0A06mr7O2 WSDyJRNqSGX6lNO3 pI6xnWpitmnvtBCirInr ojVryArlYKbnGVomE772 KDJxaDkjAyK3WTkcUKUi FS95ET22hOWkr4P6 lNX0D6TnSLKywxdnwbck fKS7HUEjNCIerC26yKWd SAteSe3bc8N7v855GUOi CQFooK45Ql7eqHnn WFXphWQWiM1kdfrnr0fs hfjbGwAlEGWgVMu1CUg7 XBQbiJqnStTyNUX5QxQ8 AGI0yXDpzY9xhQoc tonigL7jXhl+RkVNQUxF MQ99TH91fFDlf2F7lKE2 Z6YbGKDfvehrahyjbUI4 BGFiRHCstZ04nGLg QCbwCn4eo5E9t550WIQm USIrbV96Kk8pqTfvLZNe rHFCpC3xopwek9rpcxsr OeQmBDFvEAy2HCg9 AKRhyDveItWeVFK0SxB9 MHP3qKFojG8mjNppwwxn cU9xVgs+YT2ytnxptmJ1 FV86XU78C1IjZjrm dGFibGU+PHRhYmxlIHdp ZHRoPScxMDAlJyBzdHls VT2sFf4hNJViIGNpgBfq cEXxWcNln3axFTYb HOwgRI7euWyxM9SdoHN7 RXDek6t2Ou52L34zD7Ss dXA+PLUlkSD2vZC1nD1u UrGcZyZ3VYclG552 NuFuoCRwJbyfp0zlx9td fQy9ZlGrAIJwwyWjpTio TWT6h2UtJc27S07qNLhy ZHRoPSIyMCUiIHZh xCgwyw7wnV4cGz3+PGNv sOB4mWN7xL7kZoIeRpF1 TQjkE454WxIosSStGbat R55hZ8OaeOR+PHRy Bcj6VXDftLngGD9agAFi CQdqVb1kFPP5SlDiYnEl BOwiC1CjDMBhbkmtlwan jDG5VLThZDFglV03 Au9laPanJi0iPMLgVLP0 QKFfiJKaB2GqhU5xWkFy DPQrJSXuW4YiaHLsIApm H514QSfkJzA4RVCc hkIeX3UtHZTaqWtwWvO1 l5N6Av0LfUanrFBkQM2w AgWfBDt4G0RnXcy6RPFb yXhxOU0gjZAsXFgb Xe5feUjioMltRN0dBKYo ekudl817PxRwa0seMXIl lBHhLFefUAK6L82ya8Q0 PWDxXOWcRTH4hWY8 gE5owDwxanfasMKbjNyq crFikHljTOlbVHlmJ351 GCVtlMntHoOQBme0V9Sp Azy6RWCcxMnyXU1m qRLgGEiwWe7pxLrmcSvz ZA3nIFFkqmvsn389CfEq i4rnMBBhdFKwQClyGYN4 N55mt5S0BKImZDLc OND3yTE7fB9aeVvlxprf bGVmdDsgdmVydGljYWwt XBjqK900AZQvyEvmGk7B Xgf1O1EgSlf6EXNn mPhlYC2ldLAbEQukFz4s xAemzXecIV3gPDTrznoo t053PxVsp8uzBQXhmBVh KXfeICH3G52ak5X5 PXHoSQJwWSH3pKS8oZ0y bGlnbjogbGVmdDsgdmVy dFpgYUsvHKufC418PXMp cDsnPlBheWVyOjwv dGQ+DS34we51Q1SfPsws Uwe4NGTfEQZ4qPS6mB8e XEFdMZmsi6F4yLT7L5Qb sjDpwc7mq1oyDCFu ZTo (more content not included)... [facility] Noteon 12-26-2021 Ambulance Note [id number] [email or web address] [place] [facility] Clinical Summaryon 2021 ED Clinical Summary [facility] - Emergency Department [address] [place], [place] [id number] ED Clinical Summary PERSON INFORMATION Name: LOCO HICKS Age: 36 Years Sex: FEMALE : 1985 MRN: Acct#: Visit Reason: Dizziness; FACIAL NUMBNESS, DIZZINESS Arrival: 12/21/2021 18:23:41 Discharge: 12/22/2021 00:02:00 LOS: 000 05:39 Check In: 12/21/2021 18:23:41 Checkout:12/22/2021 00:02:00 Address: [address] [place] [id number] PCP: Provider, None PROVIDER INFORMATION Provider Role Assigned Unassigned Alvin Bryan ED Provider 12/21/2021 18:26:52 12/21/2021 18:30:20 Sanjuana Ramirez WOUND CARE RN Nurse 12/21/2021 18:29:17 12/21/2021 23:14:12 MARIAJOSE EDEN ED PA 12/21/2021 18:30:25 Kerline Cartagena WOUND CARE RN Nurse 12/21/2021 21:46:32 Kerline Merrill RN ED [...] - pharynx pink and moist. NECK: -Supple (icgb-pa-ucmjn): non-tender. CARD: -Rate and rhythm: Regular -Edema: No -Calf pain: No RESP: -Respiratory effort and chest excursion with respirations: Normal -Breath sounds equal bilaterally: Clear -Wheezes: No -Rales: No BACK: -Signs of pain with movement: No ABD: -Distended: No (more content not included)... Normal [facility] ED Patient Education Noteon 12-22-2021 ED Patient Education Note Education Materials [place] [facility] Patient Summaryon 022 ED Patient Summary [facility] - Emergency Department [address] [place], [place] [id number] PATIENT DISCHARGE INSTRUCTIONS Patient Information Name: LOCO HICKS Age: 36 Years Date of : 1985 Reason For Visit: Dizziness; FACIAL NUMBNESS, DIZZINESS Arrival Time: 12/21/2021 18:23:41 Primary Care Physician: Provider, None Attending Physician: Alvin Bryan Comment: Visit Diagnosis: Diagnoses This Visit Dizziness ([id number]) Paresthesias (R20.2) Visual disturbance (H53.9) Prescription Information: If you have been given a prescription for narcotics, seek immediate medical attention if you have any difficulty breathing or any sudden status changes such as confusion and sleepiness. If you or anyone you know is experiencing suicidal thoughts, mental health, alcohol and/or drug addiction problems; contact the [facility] 17/02 Crisis Hotline -Text 4HHNH to [phone]. If you received any narcotics, sedation, or [...] and treatment you received today in the [facility] Emergency Department were for an urgent problem and are not intended as complete care. It is important for you to follow up with a doctor, nurse practitioner, or physician?s catalog library assistant for ongoing care. If your symptoms [...] so we can reach you if necessary. [facility] Emergency Department has provided you with a complete list of medications post discharge. 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 No Invalid Interpretation Code [facility] Comment on above: Performed By: #### 6 [id number] ####[facility] (DEFAULT)[address] [place] [address] Group care resident? No Invalid Interpretation Code [facility] Comment on above: Performed By: #### 6 [id number] ####[facility] (DEFAULT)[address] [place] [address] In ICU? No Invalid Interpretation Code [facility] Comment on above: Performed By: #### 6 [id number] ####[facility] (DEFAULT)[address] [place] [address] status? Not Invalid Interpretation Code [facility] Comment on above: Performed By: #### 6 [id number] ####[facility] (DEFAULT)[address] [place] [address] SARS-CoV-2 (COVID-19) RNA SHELBI+probe Ql (Unsp spec) Not detected Normal Not Detected [facility] Comment on above: Result Comment: Perf ormed by PCR methodology. Performed By: #### 6 [id number] ####[facility] (DEFAULT)[address] [place] [address] SARS-CoV-2 (COVID-19) RNA SHELBI+probe Ql (Unsp spec) No Invalid Interpretation Code [facility] Comment on above: Performed By: #### 6 [id number] ####[facility] (DEFAULT)[address] [place] [address] Symptomatic as defined by CDC? No Invalid Interpretation Code [facility] Comment on above: Performed By: #### 6 [id number] ####[facility] (DEFAULT)[address] [place] [address] Transfer Noteon 12-22-2021 Transfer Note medication list sent with patient, Complete ED chart sent with patient. CD and med list sent w. patient to Hospital [Electronically Signed on: 12/22/2021 00:05 EDT] Nadya Garcia [Verified on: 12/22/2021 00:05 EDT] Nadya Garcia [place] Transfer Note [id number] #1.00OTGTIFF [place] Transfer Note [id number] #1.00OTGTIFF [place] Transfer Note transport called, [facility] called for transport to [facility]. Willie stated will call when back in area from [facility] Trip. [Electronically Signed on: 12/21/2021 22:14 EDT] Nadya Garcia [Verified on: 12/21/2021 22:14 EDT] Nadya Garcia [place] .Auto Diff 1on 12-21-2021 Auto [place] % 7 % Normal 1-12 [facility] Comment on above: Performed By: #### 7 [id number], [id number], 4625323, 45656593, 4667965, 4923838, [id number], 5298928, [id number] ####[facility] (DEFAULT)[address] [place] [address]90 Baso Abs# 0.0 x10 Normal 0.0-0.2 [facility] Comment on above: Performed By: #### 7 588688, [id number], 5954743, 64349463, 0988365, 9297553, 9758001995, 3379756, [id number] ####[facility] (DEFAULT)[address] [place] [address] 41419 Basophils/100 WBC (Bld) 0.4 % Normal 0.2-2.0 [facility] Comment on above: Performed By: #### 7 689721, [id number], 1820274, 42839050, 9175681, 0855044, 6736216704, 4796491, [id number] ####[facility] (DEFAULT)[address] [place] [address] 77534 Eos Abs# 0.1 x10 Normal 0.0-0.4 [facility] Comment on above: Performed By: #### 7 883539, 4650005234, 7021393, 35042495, 8336491, 2276410, 4625397006, 6376024, [id number] ####[facility] (DEFAULT)[address] [place] [address]94 Eosinophils/100 WBC (Bld) 0.7 % Low 0.9-4.0 [facility] Comment on above: Performed By: #### 7 395688, [id number], 4892204, 04062599, 1031045, 3817056, 0653423502, 8982289, 5030204527 ####[facility] (DEFAULT)[address] [place] [address] 71295 Lymph Abs# 3.2 x10 High 1.3-2.9 [facility] Comment on above: Performed By: #### 7 919777, [id number], 3413280, 73961766, 3969761, 4371066, 2272434456, 5500783, 5521011071 ####[facility] (DEFAULT)[address] [place] [address]508 Lymphocytes/100 WBC (Bld) 40 % Normal 14-48 [facility] Comment on above: Performed By: #### 7 352192, [id number], 0495776, 71077019, 4531089, 9483033, 9309868102, 1712370, 7325110658 ####[facility] (DEFAULT)[address] [place] [address] [place] Abs# 0.6 x10 Normal 0.0-0.8 [facility] Comment on above: Performed By: #### 7 206444, 4585440241, 6127223, 46535492, 4178876, 5428997, 6771727127, 8975379, 5716393831 ####[facility] (DEFAULT)[address] [place] [address] 06850 Neut Abs# 4.3 x10 Normal 1.5-9.2 [facility] Comment on above: Performed By: #### 7 135956, [id number], 8132887, 13330146, 8604859, 2653890, 8699418958, 7080283, 6449312357 ####[facility] (DEFAULT)[address] [place] [address] Neutrophils/100 WBC (Bld) 53 % Normal 44-88 [facility] Comment on above: Performed By: #### 7 817426, [id number], 9754119, 71960147, 1571013, 4164416, 6443230951, 1932075, 2664447147 ####[facility] (DEFAULT)[address] [place] [address] CBC w/ Auto Diffon 2 Erythrocyte distribution width (RBC) [Ratio] 14.3 % Normal 11.5-15.0 [facility] Comment on above: Performed By: #### 7 970228, [id number], 8960598, 64927212, 5600000, 9208840, 8953090406, 6894926, 3240623668 ####[facility] (DEFAULT)[address] [place] [address] Hematocrit (Bld) [Volume fraction] 42.3 % High 33.7-40.4 [facility] Comment on above: Performed By: #### 7 138673, 8263357311, 1439382, 04417986, 9769545, 8095957, 5881518783, 1609546, 1250878637 ####[facility] (DEFAULT)[address] [place] [address] Hemoglobin (Bld) [Mass/Vol] 13.7 g/dL Normal 11.3-15.9 [facility] Comment on above: Performed By: #### 7 088992, 5805125990, 1059137, 80016758, 8422977, 6891618, 6526280823, 9088594, 8897912653 ####[facility] (DEFAULT)[address] [place] [address] Instr WBC 8.2 x10 Invalid Interpretation Code [facility] Comment on above: Performed By: #### 7 412575, 9306835082, 5122143, 61906890, 2593535, 2714934, 5271852868, 1436849, 9476976320 ####[facility] (DEFAULT)[address] [place] [address] 52290 Man Diff? Auto Normal [facility] Comment on above: Performed By: #### 7 815228, 1296030578, 0532841, 93460849, 6027443, 9309888, 5102280828, 0201228, 2558688953 ####[facility] (DEFAULT)[address] [place] [address] 08663 MCH (RBC) [Entitic mass] 31 pg Normal 24-34 [facility] Comment on above: Performed By: #### 7 622776, 3305047339, 1954329, 77171587, 2875000, 3745452, 7295049146, 8575296, 9126238739 ####[facility] (DEFAULT)[address] [place] [address] 76412 MCHC (RBC) [Mass/Vol] 32 g/dL Normal 26-37 [facility] Comment on above: Performed By: #### 7 621166, 6035937546, 2457703, 84391185, 5307480, 0415389, 0263275565, 1281545, 8917009075 ####[facility] (DEFAULT)[address] [place] [address] 72128 MCV (RBC) [Entitic vol] 96 fL Normal 81-100 [facility] Comment on above: Performed By: #### 7 142292, 3553194150, 7812307, 12548640, 3613086, 9486169, 1146958142, 3853793, 5925277302 ####[facility] (DEFAULT)[address] [place] [address] 27193 Platelet 363 x10 Normal 138-427 [facility] Comment on above: Performed By: #### 7 065580, 4632837623, 3739503, 19490881, 9729688, 2003346, 0772494592, 5818644, 4728056786 ####[facility] (DEFAULT)[address] [place] [address] 16830 Platelet mean volume (Bld) [Entitic vol] 10.2 fL Normal 6.3-10.2 [facility] Comment on above: Performed By: #### 7 907208, 7375742127, 4291915, 28489358, 4687092, 5063553, 4439700430, 1981485, 1553584449 ####[facility] (DEFAULT)[address] [place] [address] RBC 4.42 x10 Normal 3.70-5.30 [facility] Comment on above: Performed By: #### 7 989704, 6984787343, 9360957, 92326354, 0948337, 6768484, 4731817688, 2860906, 1699383122 ####[facility] (DEFAULT)[address] [place] [address] 09972 WBC 8.2 x10 Normal 3.5-10.5 [facility] Comment on above: Performed By: #### 7 919422, 7467839218, 5314202, 06706907, 1984113, 7818885, 5819448254, 8408243, 0899623440 ####[facility] (DEFAULT)[address] [place] [address] Standardon 12-21-2021 eGFR Non AA 57 mL/min/1.73m2 Invalid Interpretation Code [facility] Comment on above: Performed By: #### 7 811506, 1330378982, 7598039, 43374304, 4002580, 9365678, 2548853773, 5454046, 5207079326 ####[facility] (DEFAULT)[address] [place] [address] eGFR AA >60 Invalid Interpretation Code [facility] Comment on above: Result Comment: Chemical Laboratory Chief nathalia Kidney disease could be indicated at eGFRs of less than 60 ml/min/1.73m2. Kidney Failure is indicated at less than 15 ml/min/1.73m2 Performed By: #### 7 142695, [id number], 2948171, 69368970, 0229651, 6471474, 7775875636, 6735362, [id number] ####[facility] (DEFAULT)[address] [place] [address] Albumin [Mass/Vol] 4.7 g/dL Normal 3.5-5.0 [facility] Comment on above: Performed By: #### 7 428867, [id number], 7415901, 65863137, 4839239, 6426562, 8855991449, 1861584, [id number] ####[facility] (DEFAULT)[address] [place] [address] 33887 Albumin/Globulin [Mass ratio] 1.1 {ratio} Low 1.4-2.6 [facility] Comment on above: Performed By: #### 7 028491, [id number], 1929045, 39499217, 9762839, 5130602, 7981255837, 9871446, [id number] ####[facility] (DEFAULT)[address] [place] [address] 26995 Alk Phos 99 IU/L High 32-91 [facility] Comment on above: Performed By: #### 7 163475, [id number], 1329056, 10514324, 7578539, 9413788, 6893505357, 8200334, 9858202382 ####[facility] (DEFAULT)[address] [place] [address] 48137 ALT [Catalytic activity/Vol] 32.0 U/L Normal 14.0-54.0 [facility] Comment on above: Performed By: #### 7 540678, [id number], 3880908, 08899224, 1310511, 7267046, 3715342222, 1384947, 0549165845 ####[facility] (DEFAULT)[address] [place] [address] 60258 Anion gap [Moles/Vol] 23.0 mmol/L High 5.0-19.0 [facility] Comment on above: Performed By: #### 7 124664, [id number], 2840541, 26932380, 1317231, 2862290, 7720742587, 2115223, 7892438225 ####[facility] (DEFAULT)[address] [place] [address] 86011 AST [Catalytic activity/Vol] 41 U/L Normal 15-41 [facility] Comment on above: Performed By: #### 7 559874, 1806101565, 0403195, 70439240, 1109568, 4435029, 8530377375, 8352013, 3945921434 ####[facility] (DEFAULT)[address] [place] [address] 00421 Bili Total 0.4 mg/dL Normal 0.3-1.2 [facility] Comment on above: Performed By: #### 7 691422, [id number], 3491075, 26872927, 7227161, 6219104, 3286476092, 2971665, 0482873059 ####[facility] (DEFAULT)[address] [place] [address] 11485 Calcium [Mass/Vol] 10.2 mg/dL Normal 8.9-10.3 [facility] Comment on above: Performed By: #### 7 465583, 8671091082, 9519927, 37721725, 3448018, 7557339, 2327165162, 9581088, 6221622705 ####[facility] (DEFAULT)[address] [place] [address] 34056 Chloride [Moles/Vol] 96 mmol/L Low 101-111 [facility] Comment on above: Performed By: #### 7 276589, [id number], 0541951, 29220792, 5669418, 0933939, 8058349105, 4543374, 0480657900 ####[facility] (DEFAULT)[address] [place] [address] 22567 CO2 [Moles/Vol] 24 mmol/L Normal 21-32 [facility] Comment on above: Performed By: #### 7 942108, 7737516498, 3311351, 26374393, 8940490, 2095891, 9931918102, 7033273, 8738876415 ####[facility] (DEFAULT)[address] [place] [address] 76031 Creatinine [Mass/Vol] 1.10 mg/dL Normal 0.60-1.30 [facility] Comment on above: Performed By: #### 7 110318, [id number], 7644397, 17605318, 2022449, 8326176, 0988255414, 2156201, 6919882912 ####[facility] (DEFAULT)[address] [place] [address] 96842 Globulin (S) [Mass/Vol] 4.2 g/dL Normal 1.5-4.3 [facility] Comment on above: Performed By: #### 7 248254, 4005480437, 2283190, 15282415, 9584600, 3047661, 1550864586, 2355696, 3407727242 ####[facility] (DEFAULT)[address] [place] [address] 48413 Glucose [Mass/Vol] 97.0 mg/dL Normal 74.0-118.0 [facility] Comment on above: Performed By: #### 7 934966, [id number], 3142280, 35069388, 2345462, 4537606, 5380868423, 3367338, 2560682778 ####[facility] (DEFAULT)[address] [place] [address] 51148 Osmolality 278 mOsm/L Invalid Interpretation Code [facility] Comment on above: Performed By: #### 7 600800, 8331087554, 2081140, 30165164, 1428347, 6462837, 4510533469, 0861334, 6144402419 ####[facility] (DEFAULT)[address] [place] [address] 66842 Potassium [Moles/Vol] 3.5 mmol/L Low 3.6-5.1 [facility] Comment on above: Performed By: #### 7 680882, [id number], 8381109, 16682561, 9586903, 8500920, 7593113205, 7331011, 6001426024 ####[facility] (DEFAULT)[address] [place] [address] 70537 Protein [Mass/Vol] 8.9 g/dL High 6.5-8.1 [facility] Comment on above: Performed By: #### 7 698472, 7172013731, 3862498, 49631056, 1630487, 2299564, 1765008195, 5932686, 9462789983 ####[facility] (DEFAULT)[address] [place] [address] 95641 Sodium [Moles/Vol] 139.0 mmol/L Normal 136.0-144.0 [facility] Comment on above: Performed By: #### 7 892345, 8537895487, 7062541, 71187701, 6556700, 8652841, 8837079783, 6939349, 7893874888 ####[facility] (DEFAULT)[address] [place] [address] 84935 Urea nitrogen [Mass/Vol] 15 mg/dL Normal 8-26 [facility] Comment on above: Performed By: #### 7 055957, 6819648211, 7881235, 64445379, 9576925, 5832677, 9556287912, 8655594, 6836220733 ####[facility] (DEFAULT)[address] [place] [address] 60287 Urea nitrogen/Creatinine [Mass ratio] 14.0 mg/mg Normal 4.6-16.2 [facility] Comment on above: Performed By: #### 7 067369, 1266518099, 2777487, 79505802, 0278251, 6865838, 1471369798, 8549157, 3208994555 ####[facility] (DEFAULT)[address] [place] [address] Head or Brain w/o Contras ton [...] Ha 12/21/21 9:19 pm Technologist: Erwin CHAUDHARI Normal [facility] D-Dimeron 12-21-2021 D-Dimer 0.49 mg/L FEU Normal 0.19-0.50 [facility] Comment on above: Result Comment: The [...] Liver cirrhosis ? Performed By: #### 7 303086, 6053179545, 5213514, 15245038, 5547727, 9701334, 4295705397, 3830145, 0182265699 ####[facility] (DEFAULT)[address] [place] [address] ED Note - Otheron 12-21-2021 ED Note - Other Neurology called back from [facility], on phone with Mariajose LLANES [Electronically Signed on: 12/21/2021 21:29 EDT] Nadya Garcia [Verified on: 12/21/2021 21:29 EDT] Nadya Garcia [place] ED Note - Other paging Neurology through [facility] for consult for Mariajose LLANES [Electronically Signed on: 12/21/2021 21:12 EDT] Nadya Garcia [Verified on: 12/21/2021 21:12 EDT] Nadya Garcia [place] ED Note - Physicianon 2021 ED Note [...] - pharynx pink and moist. NECK: -Supple ([id number]): non-tender. CARD: -Rate and rhythm: Regular -Edema: [...] I di (more content not included)... Normal [facility] ED Note-Nursingon 12-21-2021 ED Note-Nursing Beauty Consultant assumed care for pt at 2124. Pt had fluids running at that time. Will continue to give the rest of the liter per VO from MARIO ALBERTO. PA also stated that after speaking with neuro, pt is to be transferred to [facility] for MRI and further evaluation. Normal [facility] Ethanol.on 12-21-2021 Ethanol Level 9.0 mg/dL High 0.0-5.0 [facility] Comment on above: Performed By: #### 2 [id number] #### [facility] (DEFAULT) [address] [place] [address] 59702 Extra Morgan 12-21-2021 Tube Collected Yes Invalid Interpretation Code [facility] Comment on above: Performed By: #### 2 190457, [id number] #### [facility] (DEFAULT) [address] [place] [address] 06910 Extra Redon 12-21-2021 Tube Collected Yes Invalid Interpretation Code [facility] Comment on above: Performed By: #### 7 598730, [id number], 2198051, 39890895, 3697873, 8869733, 7227876093, 9856695, 1069095039 #### [facility] (DEFAULT) [address] [place] [address] 00485 Magnesiumon 12-21-2021 Magnesium [Mass/Vol] 2.02 mg/dL Normal 1.80-2.50 [facility] Comment on above: Performed By: #### 7 897383, [id number], 2245077, 70886849, 4901323, 0236677, 0026970779, 7392014, 6025142140 ####[facility] (DEFAULT)[address] [place] [address] 28016 PTon 12-21-2021 INR Coag (PPP) [Relative time] 0.94 {INR} Normal 0.91-1.11 [facility] Comment on above: Performed By: #### 7 590905, 6497056930, 5425162, 90295867, 0326777, 7090294, 3848376202, 6364390, 7696412430 ####[facility] (DEFAULT)[address] [place] [address] PT 10.2 second(s) Normal 9.7-11.8 [facility] Comment on above: Performed By: #### 7 518726, 3196409111, 6003109, 65984589, 4260158, 4405893, 0482853710, 6891210, 1399265336 ####[facility] (DEFAULT)[address] [place] [address] 58592 PTTon 12-21-2021 PTT 26 second(s) Normal 25-35 [facility] Comment on above: Performed By: #### 7 354792, 9450883038, 8400189, 99025775, 3142542, 0438805, 0293406254, 5906838, 3307680219 ####[facility] (DEFAULT)[address] [place], [place] [address] Test Urine 1 U Preg Negative Normal [facility] Comment on above: Performed By: #### 1 [id number], [id number] ####[facility] (DEFAULT)[address] [place] [address] 75486 U Preg Internal Control Pass Normal [facility] Comment on above: Performed By: #### 1 [id number], [id number] ####[facility] (DEFAULT)[address] [place] [address] 04839 Salicylateon 12-21-2021 Salicylate Lvl <4.0 Normal 0.0-30.0 [facility] Comment on above: Result Comment: Sali cylate ranges less than 30 mg/dL are considered to be therapeutic. Levels greater than 30 mg/dL are considered toxic and levels greater than 60 mg/dL may be lethal. Performed By: #### 2 798346, [id number] #### [facility] (DEFAULT) [address] [place] [address] 77772 TnI HSon 12-21-2021 Troponin I High Sensitivity <2 Normal <=15 [facility] Comment on above: Result Comment: Male Baseline Delta 1Hr (Note pg/mL=ng/L) <20pg/mL 50-60% >20pg/mL 20% Female Baseline Delta 1Hr <15pg/mL 50-60% >15pg/mL 20% Other Baseline Delta 1Hr <18ng/mL 50-60% >18ng/mL 20% ([employer] Guidelines February 2018) Performed By: #### 7 527129, 1124678061, 9810974, 44969767, 1306330, 5716692, 9464942760, 6025689, 4762496154 ####[facility] (DEFAULT)[address] [place] [address] 53033 Triage Panel 1212-21-2021 Triage Internal Control Pass [place] Comment on above: Performed By: #### 1 [id number] ####[facility] (DEFAULT)[address] [place] [address] 72983 U Amph Scr Negative Normal [facility] Comment on above: Performed By: #### 1 [id number] ####[facility] (DEFAULT)[address] [place] [address] 32398 U Vanesa Scr Negative [place] Comment on above: Performed By: #### 1 [id number] ####[facility] (DEFAULT)[address] [place] [address] 78280 U Benzodia Scr Negative [place] Comment on above: Performed By: #### 1 [id number] ####[facility] (DEFAULT)[address] [place] [address] 66663 U Cannab Scrn Negative [place] Comment on above: Performed By: #### 1 [id number] ####[facility] (DEFAULT)[address] [place] [address] 13010 U Cocaine Scr Negative [place] Comment on above: Performed By: #### 1 [id number] ####[facility] (DEFAULT)[address] [place] [address] 91112 U Methadone Scr Negative [place] Comment on above: Performed By: #### 1 [id number] ####[facility] (DEFAULT)[address] [place] [address] 79369 U Methamp Scrn Negative [place] Comment on above: Performed By: #### 1 [id number] ####[facility] (DEFAULT)[address] [place] [address] 86464 U Opiate Scr Negative [place] Comment on above: Performed By: #### 1 [id number] ####[facility] (DEFAULT)[address] [place] [address] 26807 U Oxycod Scr Negative [place] Comment on above: Performed By: #### 1 [id number] ####[facility] (DEFAULT)[address] [place] [address] 45073 U Phencyclidine Scr Negative [facility] Comment on above: Performed By: #### 1 [id number] ####[facility] (DEFAULT)[address] [place] [address] 39667 U Propoxyphene Scr Negative [facility] Comment on above: Performed By: #### 1 [id number] ####[facility] (DEFAULT)[address] [place] [address] 98607 U Tricyclic Antidepress Scr Negative [place] Comment on above: Result Comment: Resu lts [...] PPX Propoxyphene (Norpropoxyphene): 300 ng/mL THC Cannabinoids (20-tug-7-carboxy- -THC): 50 ng/mL TCA Tricyclic-Antidepressants (Desipramine): 300 ng/mL Performed By: #### 1 [id number] ####[facility] (DEFAULT)[address] [place] [address] Urine Source Clean Catch [place] Comment on above: Performed By: #### 1 [id number] ####[facility] (DEFAULT)[address] [place] [address] UA w Culture if Ind Standard on 12-21-2021 Color (U) Yellow [place] Comment on above: Performed By: #### 1 [id number], [id number] ####[facility] (DEFAULT)[address] [place] [address] Culture? Not Indicated Invalid Interpretation Code [facility] Comment on above: Result Comment: Resu lt created by rule GL_MAGR_ADD_UA_CULT1 Performed By: #### 1 [id number], [id number] ####[facility] (DEFAULT)[address] [place] [address] Glucose (U) [Mass/Vol] Negative [place] Comment on above: Performed By: #### 1 [id number], [id number] ####[facility] (DEFAULT)[address] [place] [address] Ketones Ql (U) Negative [place] Comment on above: Performed By: #### 1 [id number], [id number] ####[facility] (DEFAULT)[address] [place] [address] 16941 Micro? Not Indicated Invalid Interpretation Code [facility] Comment on above: Result Comment: Resu lt created by rule GL_MAGR_ADD_UA_MICRO Performed By: #### 1 [id number], [id number] ####[facility] (DEFAULT)[address] [place] [address] 28801 UA Bilirubin Negative Normal [facility] Comment on above: Performed By: #### 1 [id number], [id number] ####[facility] (DEFAULT)[address] [place] [address] UA Blood Negative Normal [facility] Comment on above: Performed By: #### 1 [id number], [id number] ####[facility] (DEFAULT)[address] [place] [address] 60055 UA Clarity CLEAR Normal CLEAR [facility] Comment on above: Performed By: #### 1 [id number], [id number] ####[facility] (DEFAULT)[address] [place] [address] 10219 UA Leuk Est Negative Normal NEGATIVE [facility] Comment on above: Performed By: #### 1 [id number], [id number] ####[facility] (DEFAULT)[address] [place] [address] 63926 UA Nitrite Negative Normal NEGATIVE [facility] Comment on above: Performed By: #### 1 [id number], [id number] ####[facility] (DEFAULT)[address] [place] [address] 36986 UA pH 6.5 Normal 5-8 [facility] Comment on above: Performed By: #### 1 [id number], [id number] ####[facility] (DEFAULT)[address] [place] [address] 13879 UA Protein Negative Normal NEGATIVE [facility] Comment on above: Performed By: #### 1 [id number], [id number] ####[facility] (DEFAULT)[address] [place] [address] 27930 UA Spec Grav <=1.005 Normal 1.001-1.035 [facility] Comment on above: Performed By: #### 1 [id number], [id number] ####[facility] (DEFAULT)[address] [place] [address] 50509 UA Urobilinogen 0.2 mg/dL Normal 0.2-1.0 [facility] Comment on above: Performed By: #### 1 [id number], [id number] ####[facility] (DEFAULT)[address] [place] [address] 06547 Breakpoint UA Normal [facility] Comment on above: Performed By: #### 1 [id number], [id number] ####[facility] (DEFAULT)[address] [place] [address] 75988 Urine Source Clean Catch Normal [facility] Comment on above: Performed By: #### 1 [id number], [id number] ####[facility] (DEFAULT)[address] [place] [address] 29204 XR Chest 2 Viewson 2 XR Chest [...] 12/21/21 9:38 pm Technologist: Obed BELLE Normal [facility] CARDIAC HUMAIRA ADMITon 021 CK [Catalytic activity/Vol] 117 U/L Normal 30-135 [facility] Comment on above: Performed By: #### T SH, CMADM, CMP #### [facility] [address] [id number] Nelida Lily CK.MB [Mass/Vol] 1.16 ng/mL Normal <=2.37 [facility] Comment on above: Performed By: #### T JOÃO LOCK, CMP #### [facility] [address] [address] Nelida Lily HSTROP <4.0 Normal 4.0-35.5 [facility] Comment on above: Result Comment: CUT- OFF POINTS HAVE BEEN ESTABLISHED BASED ON THE FOURTH UNIVERSAL DEFINITIONS OF MYOCARDIAL INFARCTION. THE UPPER REFERENCE LIMIT (URL) OF TROPONIN, DEFINED THE 99TH PERCENTILE OF cTnI DISTRIBUTION IN A REFERENCE POPULATION, HAS BEEN CONFIRMED THE DECISION THRESHOLD FOR [place] DIAGNOSIS. Performed By: #### T JOÃO LOCK, CMP #### [facility] [address] [place] [address] Nelida Lily NGA 41.0 ng/mL Normal <=61.5 [facility] Comment on above: Performed By: #### T JOÃO LOCK, CMP #### [facility] [address] [place], [place] [address] Nelida Lily CBC AUTO DIFFon 02-23-2021 BASO # 0.1 103/ul Normal 0.0-0.1 [facility] Comment on above: Performed By: #### C BC #### [facility] [address] [place], [place] [address] Nelida Lily Basophils/100 WBC (Bld) 1.0 % Normal 0.2-2.0 [facility] Comment on above: Performed By: #### C BC #### [facility] [address] [place], [place] [address] Nelida Lily EO # 0.1 103/ul Normal 0.0-0.7 [facility] Comment on above: Performed By: #### C BC #### [facility] [address] [place], [place] [address] Nelida Lily Eosinophils/100 WBC (Bld) 2.2 % Normal 0.9-7.0 [facility] Comment on above: Performed By: #### C BC #### [facility] [address] [place] [address] Nelida Lily Erythrocyte distribution width (RBC) [Ratio] 14.2 % Normal 11.0-15.0 [facility] Comment on above: Performed By: #### C BC #### [facility] [address] [place] [address] Nelida Lily Hematocrit (Bld) [Volume fraction] 40.6 % Normal 36.0-48.0 [facility] Comment on above: Performed By: #### C BC #### [facility] [address] [place] [address] Nelida Lily Hemoglobin (Bld) [Mass/Vol] 13.3 g/dL Normal 12.0-16.0 [facility] Comment on above: Performed By: #### C BC #### [facility] [address] [place] [address] Nelida Lily IG # 0.02 10e3/ul Normal 0.00-0.03 [facility] Comment on above: Performed By: #### C BC #### [facility] [address] [place] [address] Nelida Lily IG % 0.4 % Normal 0.0-0.5 [facility] Comment on above: Performed By: #### C BC #### [facility] [address] [place] [address] Nelida Lily LYMPH # 1.7 103/ul Normal 1.2-3.8 [facility] Comment on above: Performed By: #### C BC #### [facility] [address] [place] [address] Nelidajose Bautista Lymphocytes/100 WBC (Bld) 34.6 % Normal 20.5-60.0 [facility] Comment on above: Performed By: #### C BC #### [facility] [address] [place], [place] [address] Nelidajose Kimbleen MANUAL DIFF REQ NO Normal [facility] Comment on above: Performed By: #### C BC #### [facility] [address] [place] [address] Nelida Lily MCH (RBC) [Entitic mass] 31.5 pg Normal 26.7-34.0 [facility] Comment on above: Performed By: #### C BC #### [facility] [address] [place], [place] [address] Nelida Bautista MCHC (RBC) [Mass/Vol] 32.8 g/dL Normal 29.9-35.2 [facility] Comment on above: Performed By: #### C BC #### [facility] [address] [place] [address] Nelidajose Bautista MCV (RBC) [Entitic vol] 96.2 fL Normal 81.0-99.0 [facility] Comment on above: Performed By: #### C BC #### [facility] [address] [place] [address] Nelida Bautista MONO # 0.4 103/ul Normal 0.3-0.8 [facility] Comment on above: Performed By: #### C BC #### [facility] [address] [place] [address] Nelidajose Kimbleen Monocytes/100 WBC (Bld) 7.1 % Normal 1.7-12.0 [facility] Comment on above: Performed By: #### C BC #### [facility] [address] [place] [address] Nelida Bautista NEUT # 2.7 103/ul Normal 1.4-6.5 [facility] Comment on above: Performed By: #### C BC #### [facility] [address] [place] [address] Nelidajose Bautista Neutrophils/100 WBC (Bld) 54.7 % Normal 43.0-75.0 [facility] Comment on above: Performed By: #### C BC #### [facility] [address] [place], [place] [address] Nelidajose Bautista Platelet mean volume (Bld) [Entitic vol] 9.8 fL Normal 9.5-13.5 [facility] Comment on above: Performed By: #### C BC #### [facility] [address] [place], [place] [address] Nelida Lily PLT 320 103/ul Normal 150-450 [facility] Comment on above: Performed By: #### C BC #### [facility] [address] [place], [place] [address] Nelida Lily RBC 4.22 106/ul Normal 4.20-5.40 [facility] Comment on above: Performed By: #### C BC #### [facility] [address] [place], [place] [address] Nelida Lily WBC 4.9 103/ul Normal 4.0-11.0 [facility] Comment on above: Performed By: #### C BC #### [facility] [address] [place], [place] [address] STROKE HEAD WOon 02-24-[address] [...] JANESSA SKINNER Date: 2021-02-23 13:52 Normal [facility] ER URINE PROFILEon 1 Bilirubin Ql (U) Negative Normal NEGATIVE [facility] Comment on above: Performed By: #### E RUR #### [facility] [address] [place], [place] [address] Nelida Lily Clarity (U) CLEAR Normal CLEAR [facility] Comment on above: Performed By: #### E RUR #### [facility] [address] [place], [place] [address] Nelida Lily Color (U) LT. YELLOW Normal YELLOW [facility] Comment on above: Performed By: #### E RUR #### [facility] [address] [place] [id number] Nelida Lily ERUAHD A micrscopic examination will be performed if indicated. Normal [facility] Comment on above: Performed By: #### E RUR #### [facility] [address] [place], [place] [id number] Nelida Lily Glucose Ql (U) Negative Normal NEGATIVE [facility] Comment on above: Performed By: #### E RUR #### [facility] [address] [place] [address] Nelida Lily Hemoglobin Ql (U) Negative Normal NEGATIVE [facility] Comment on above: Performed By: #### E RUR #### [facility] [address] [place] [address] Nelida Lily Ketones Ql (U) Negative Normal NEGATIVE [facility] Comment on above: Performed By: #### E RUR #### [facility] [address] [place] [address] Nelida Lily LEUKOCYTES Negative Normal NEGATIVE [facility] Comment on above: Performed By: #### E RUR #### [facility] [address] [place], [place] [address] Nelida Lily Nitrite Ql (U) Negative Normal NEGATIVE [facility] Comment on above: Performed By: #### E RUR #### [facility] [address] [place], [place] [address] Nelida Lily pH (U) 8.0 [pH] Normal 5-9 [facility] Comment on above: Performed By: #### E RUR #### [facility] [address] [place], [place] [address] Nelida Lily SPEC GRAVITY 1.020 Normal 1.005-<=1.025 [facility] Comment on above: Performed By: #### E RUR #### [facility] [address] [place], [place] [address] Nelida Lily UA PROTEIN Negative Normal NEGATIVE/ TRACE [facility] Comment on above: Performed By: #### E RUR #### [facility] [address] [place] [address] Nelida Bautista UR MICRO IND NOT INDICATED Normal [facility] Comment on above: Performed By: #### E RUR #### [facility] [address] [place], [place] [address] Nelida Bautista Urobilinogen Qn (U) 0.2 {Jose Carlos'U}/dL Normal 0.2 - 1. 0 [facility] Comment on above: Performed By: #### E RUR #### [facility] [address] [place], [place] [address] Nelida Bautista POINT OF CARE GLUCOSEon 01-27 Glucose [Mass/Vol] 95 mg/dL Normal 74-106 [facility] Comment on above: Performed By: #### P OCGLUC #### [facility] [address] [place], [place] [address] Nelida Bautista PREG HCG QUALon 02-23-2021 , QUAL Negative Normal NEGATIVE [facility] Comment on above: Performed By: #### P REG #### [facility] [address] [place], [place] [address] Nelida Bautista PROF 14(COMP METB)on 021 Albumin [Mass/Vol] 3.6 g/dL Normal 3.5-5.0 [facility] Comment on above: Performed By: #### T JOÃO LOCK, CMP #### [facility] [address] [place], [place] [address] Nelida Lily Albumin/Globulin [Mass ratio] 0.9 {ratio} Normal [facility] Comment on above: Performed By: #### T JOÃO LOCK, CMP #### [facility] [address] [place] [address] Nelida Lily ALP [Catalytic activity/Vol] 103 U/L Normal 38-126 [facility] Comment on above: Performed By: #### T JOÃO LOCK, CMP #### [facility] [address] [place] [address] Nelida Lily ALT [Catalytic activity/Vol] 35 U/L Normal 9-52 [facility] Comment on above: Performed By: #### T SH, CMADM, CMP #### [facility] [address] [place] [address] Nelida Lily Anion gap [Moles/Vol] 13.3 mmol/L Normal [facility] Comment on above: Performed By: #### T HAYDE CMADM, CMP #### [facility] [address] [place] [address] Nelida Lily AST [Catalytic activity/Vol] 28 U/L Normal 14-36 [facility] Comment on above: Performed By: #### T HAYDE CMADM, CMP #### [facility] [address] [place] [address] Nelida Lily Bilirubin [Mass/Vol] 0.2 mg/dL Normal 0.2-1.3 [facility] Comment on above: Performed By: #### T HAYDE CMAEJ, CMP #### [facility] [address] [place] [address] Nelida Lily Calcium [Mass/Vol] 9.0 mg/dL Normal 8.4-10.2 [facility] Comment on above: Performed By: #### T JOÃO LOCK, CMP #### [facility] [address] [place] [address] Nelida Lily Chloride [Moles/Vol] 108 mmol/L Critically high 98-107 [facility] Comment on above: Performed By: #### T HAYDE CMADM, CMP #### [facility] [address] [place] [address] Nelida Lily CO2 [Moles/Vol] 25.8 mmol/L Normal 22.0-30.0 [facility] Comment on above: Performed By: #### T HAYDE CMADM, CMP #### [facility] [address] [id number] Nelida Lily Creatinine [Mass/Vol] 1.00 mg/dL Normal 0.52-1.04 [facility] Comment on above: Performed By: #### T HAYDE CMADM, CMP #### [facility] [address] [id number] Nelida Lily EGFR-AF SAMMARINESE >60 Normal >=60 [facility] Comment on above: Performed By: #### T HAYDE, CMADM, CMP #### [facility] [address] [id number] Nelida Lily EGFR-NON AF SAMMARINESE >60 Normal >=60 [facility] Comment on above: Performed By: #### T HAYDE, CMADM, CMP #### [facility] [address] [id number] Nelida Lily Globulin (S) [Mass/Vol] 4.2 g/dL Normal [facility] Comment on above: Performed By: #### T HAYDE, CMADM, CMP #### [facility] [address] [place] [address] Nelida Lily Glucose [Mass/Vol] 95 mg/dL Normal 74-106 [facility] Comment on above: Performed By: #### T HAYDE CMADM, CMP #### [facility] [address] [place] [address] Nelida Lily Potassium [Moles/Vol] 4.1 mmol/L Normal 3.4-5.0 [facility] Comment on above: Performed By: #### T HAYDE CMADM, CMP #### [facility] [address] [place] [address] Nelida Lily Protein [Mass/Vol] 7.8 g/dL Normal 6.1-8.2 [facility] Comment on above: Performed By: #### T HAYDE CMADM, CMP #### [facility] [address] [place] [address] Nelida Lily Sodium [Moles/Vol] 143 mmol/L Normal 137-145 [facility] Comment on above: Performed By: #### T HAYDE, CMADM, CMP #### [facility] [address] [place] [address] Nelida Lily Urea nitrogen [Mass/Vol] 10.0 mg/dL Normal 7.0-17.0 [facility] Comment on above: Performed By: #### T HAYDE, CMADM, CMP #### [facility] [address] [place], [place] [address] Nelida Lily Urea nitrogen/Creatinine [Mass ratio] 10.0 mg/mg Normal [facility] Comment on above: Performed By: #### T OJÃO LOCK, CMP #### [facility] [address] [id number] Nelida Bautista TSHon 02-23-2021 TSH 1.157 uIU/mL Normal 0.470-4.680 [facility] Comment on above: Performed By: #### T JOÃO LOCK, CMP #### [facility] [address] [place] [address] Nelida Bautista TSH RANGE SEE BELOW Normal [facility] Comment on above: Result Comment: <0.3 4 UIU/ml HYPERTHYROID 0.34-5.60 UIU/ml EUTHYROID >5.60 UIU/ml HYPOTHYROID Performed By: #### T JOÃO LOCK, CMP #### [facility] [address] [place] [address] Nelida Bautista XR CHEST 1 Von 02-23-2021 [...] JANESSA SKINNER Date: 2021-02-23 13:53 Normal [facility] Encounters Encounter Date Encounter Type Care Provider Facility Start: 12-30-2023 End: 12-30-2023 ambulatory MARYANN ZACKERY Not Available Start: 12-16-2023 End: 12-16-2023 ambulatory SHAWNA NEELAM Not Available Start: 11-18-2023 End: 11-18-2023 ambulatory MARYANN ZACKERY Not Available Start: 10-21-2023 End: 10-21-2023 ambulatory SHAWNA NEELAM Not Available Start: 09-23-2023 End: 09-23-2023 ambulatory MARYANN ZACKERY Not Available Start: 08-22-2023 End: 08-22-2023 ambulatory MARYANN ZACKERY Not Available Start: 12-22-2021 End: 12-22-2021 ambulatory JARVIS MELVAJENIFERNELLY [facility] Start: 02-23-2021 End: 02-23-[address] DOCTOR GOODSON Facility: Payers Date Payer Category Payer Unknown [id number] 1985 Unknown [id number] 2.16.84 [id number] 1987 Unknown [id number] 2.16.84 [id number] 1987 Unknown [id number] 2.16.84 [id number] 1987 Unknown [id number] 2.16.84 [id number] 1987 Unknown [id number] 2.16.84 [id number] 1987 Unknown [id number] 2.16.84 [id number] 1987 Unknown [id number] 2.16.84 [id number] 1959 Unknown [id number] Summary Purpose Family History No Family History Records FoundNo Family History Records FoundNo Family History Records FoundNo Family History Records Found Advance Directives No Advanced Directives Records FoundNo Advanced Directives Records FoundNo Advanced Directives Records FoundNo Advanced Directives Records Found Additional Source Comments INFORMATION SOURCE (unrecogn ized section and content) DATE CREATED AUTHOR 02/28/2021 [facility] DATE CREATED AUTHOR AUTHOR'S ORGANIZ ATION 12/24/2021 [facility] DATE CREATED AUTHOR AUTHOR'S ORGANIZ ATION 01/01/2022 [facility] DATE CREATED AUTHOR AUTHOR'S ORGANIZ ATION 12/31/2023 [facility] EPIC FOR RECORDS PERTAINING [...] BE BASED ON THE PRIMARY CLINICAL RECORDS. [facility] [email or web address] [facility]. provides no warranty or guarantee of the accuracy or completeness of information in this document.
== END 2024-01-15 08:03 | disposition home or self-care (01) ==
LOC: NOMS 08:03
PROVIDERS: Visit Provider Obstetrics & Gynecology
DX: O09.529 Supervision of elderly multigravida, unspecified trimester (principal); Z3A.32 32 weeks gestation of pregnancy
CPT/HCPCS: 76816

== ENCOUNTER 2024-01-16 06:59 | Outpatient (OUT) | payer BC, SELFPAY ==
--- OUTSIDE RECORDS SUMMARY | 2024-01-16 07:01 | XMS_ITS | CCD ---
Author Organization [place] [facility] Care Team Providers Care Supply Chain Vice President Name Role Phone HAMZAH, DR OLSON Primary Care Unavailable PAY, DR OLSEN Admitting Unavailable PAY, DR OLSEN Attending Unavailable ZIEBER, DR JANESSA Davila Consulting Unavailable PAY, DR OLSEN Consulting Unavailable SCHLAJARVIS VILLEGAS Referring Unavailable JARVIS RODRIGUEZ Primary Care Unavailable NERISSA CAMPBELLRAHMANYAM Consulting Unavail able CADEN CERNA Attending Unavailable CADEN CERNA Admitting Unavailable DAVIN GAGE Consulting Unavailable MARYANN VIZCARRA Attending Unavailable SHAWNA RICHTER Attending Unavailable MARYANN VIZCARRA Attending Unavailable SHAWNA RICHTER Attending Unavailable MARYANN VIZCARRA Attending Unavailable MARYANN VIZCARRA Attending Unavailable Problems [...] Coding Summaryon 12-31-2021 Coding Summary HTMLBase 64 AcfjlxkzYIq7kKb+PGhl YWQ+ZQ5YILAuF53vvPVi oU7SZ4dGBT5ZWQHBKIOH UA3GNL1slGU4YQoxS5Zp biAv IrcexDBeCA56PRq0RCK8 bWkpNSlifI9ieNLcY9y6 ZpTaCP59sR63DBlxTSYt MuO2TyDwfcptuYEy D7zfYtAglEIiAbw+PHRh YmxlIHdpZHRoPScxMDAl EdPhgAggOD3gFc6gQDUu LWNvbGxhcHNlOiBj p6utXTJkHKmkUO9hcZhh T5DbwTZ3OIEpp1d2De63 dHI+JRVsLJK9zXrcVRqw j190LnGnz3qsSSM3 rFOtNVfiRKH7M70xq8P8 HBCjGSFpMDZ0wLM2fW1a bSfbjpxxJ4YsoAFuMeG8 GAJ3vQJbeG2qaIoi uwlphK2cTrt+V45NVR1M HIDWWC0DAew5B6InLmxt dHI+SW66NRUiDO24bKJk sALef1vawCn8FdWf TTJfQLH1wZemGAsyd5Uf ZYVwX66cdEHyt2Y2VXKw cGascWDuQiPesTR6iH2q MHujmhosv2rgucau Yzimw6wqpp54oP09O31j PFzdMCZdDRN2KJBsFVOi fOigjz6wxQ8cCc5+IDxj f5nws3yjgDj1FeEq IUZpaoVqoCrzMVL6f9Pm Tm36X1GkgOlqz1ShTue4 xj89pDKof8C1aSJ1JQbk HHWslY0rQZcnMzF1 RYHlGgYevU15hPFhYFhg Aj9pmXjozUfjYZ1fCPBs rwlzVEMrqW6gVNEjtCXn ePriKO3uFGSpinhy j275BdXxEGO7SEXqoUXi L7KxwE0qDrQtCPUqCVXf A0WzvZVcUXduJ319EGtf ZzV4PLWjkmVkT3Rw JJNfyDnrNnM1w9X7Gt1A a2FqazdmPKT7ZVbfYPD8 BxF6WuYeRpW7X2TlMpe2 AFEboEakTQ4zH1Lp OEXhjxoncouieSP3XDIc ZKQugA08cBSnBAfwQr0b i4M5v645ADQpRWGvdU08 Wm9vjWffYEZxaGPQ uB5rrtawe8qlvqcaBpUd ZOIwKGz3YEy4GQEglGms SvDaCQN6AsV0KTY9pCFj aZ6cdZkthdjvjH4u Oyc+X93vwI9pYSM8ODQ6 pbkrKPPgteLbJW43ZK52 T1CdBvqslKGvlLX+PGRp kkCjgCwbPF2dAyYq e6qnn0PhYAneB2HzNHZy TZztVwc9GIWcNVI3wIT2 vD9jBJRbXYqpf2Q5tOT0 S2XfnfKpoe5vj0jp XLTtDWewA46ohFFnl2M9 WNGsqPT7FPPhrYliEdDn oT54Wox+ZEFsyZsuq6Zb Kyzjl9wrj3vqbQc1 IjMwJSIgdmFsaWduPSJ0 t5UpUd34X07oZPuoHGUk MUQaHIXhBSMdnZayoa2o wR6gZp0+PGNvbCB3 uVP7rC7oZRVsFiD9AOwu M574NhLewULvYbeja7fn l0bbcJl2BdZrPYYyjyWn qIjxTLG5p7MyAx71 J61sBQcwRRWbWNWzYYMi CIHfnLvgto4luO7bQl3+ AW4xv5geno63fT29gJL+ XOSoMRH6yHekTMkw SPHzlR6wHJqfSzW5EZEy ZcEanF66rLJsWQfvCv9w tVavxOhtXB1oGOUxajiz d932LoPsu6npBJQx xPAlDRxoQWJ2B23ln4J4 WTOsHEWcBHU7xSC6kQ0s bGlnbjogbGVmdDsgdmVy sGciHKubBFeeT195 IHRvcDsnPlBhdGllbnQg FgCfXTr1Z4IsRen9YDHb mGfySA9pyTXrUMdfWb7m aMdksCkhSO1aPTEl ewmmt517NfHsp0mfTAMm rHElBJytRRQ5X81zs5Q0 IEFkPTJqMDZ0kQB3bZ6n bGlnbjogbGVmdDsg pbTfmIhfKBdeGBqzA756 IHRvcDsnPkJpcnRoIERh mGQ2NI41TA95mKWmk1U9 yWT3A6JgLFHeoild xouncTO4ZODhYNMhcY40 Ig1yuWmjXt3cIVNeHJZ8 LEHwfPZrH8DryT6jNpMo DBIlBHAsL0YxqOHq DMfeH170TDjfRjB1JSGt dnWaW1KdMVBojLxeBaU9 v9X0Rw0ZJ9H1EQ49DU28 aOXbu1F9fER6O8Ek UHLnwifszogdzVF5DOAt EQHjpZ13Cx8syAakDz8r YJToYEV0MOAobTTjH4Dp qA0aBpPsZFHkFYGy A6GjsUFhECvuD501VKgz NyU3TBGbshSzS7ToWONi rSkzCbW2m7F7Zi3RABo5 AE57YN29xWTlj7E7 sWF7Z9IgSPAyubbjtght pLW7DWLkNLTtcE16Il3g qAfyGf2qXUKkJRW3AWLt bHHmJ7BhuD3eMfWy QDBtZKGdD1UrpBWoCFyd H532WAyoQxU1NSHxudWv Z8SyQWOaxXzgXyO6p2B8 Hg2MGQVlSJ86LBN5 vZN9GY40SW90N7IaXksp dGFibGU+PHRhYmxlIHdp ZHRoPScxMDAlJyBzdHls DS2eLa4nDEAsAGBe rVbvlGWbVrSyj7zwBEJu DOfoMS5xrFmbZ3CtcWR6 UHCtz1s6Oh19O00aM4Ar dXA+WJRjpRT4aCJ2 eT9tBtRsMoS4VEygO604 WnRleKXpLhmck1bhc9ty iWj9TmQ0HLUktwCgqJlj QML3o1FeLn91Z30g IHdpZHRoPSIxNSUiIHZh tJvnin1qnK5gYn9+PGNv mFY9yJJ6mC0bQsQtFlR7 ZPceI293TwOepAZv Risgv2zyt7mheSh5DiSb CXUqdeDraIweFEJ5x4Os Jc43H3AggOsug6GjZuu8 ei78jEMwf8Q3cHU2 N6DvXMUyqazxwBSwyHys DV6kJNDleaimUNWvvL4m RMTbL9a3BvLpJbQ9KStg W5NrhzL7JQShxLBv DNceFPE3N53ra4R9UUKm CWNtAJK7aDP0vF0dsQtv bjogbGVmdDsgdmVydGlj FVhwIWrmF855KOCz bIcbDKJliC9jLFVsaYIz wOyoUJ8xVGEwrienKllR AUJOJSSMEZHWIqDXEU67 RL38hCQvl9C6kUG6 Y7DdZCSbhyblsdgwyYH0 OTUbYEZcwP51wUXmOWgo Eu8wr0Q2s377PGAkRTHf hV90Ru0feHueVGEv wRZBkY4iravrs7fzaang ZeBtAFPqIOi6QAs8BNXg iXryAvMfWAS8EoE8AHB1 sEJdmN2haAuwlwem cL6rTku+MDEvMDgvMTk4 ODwvdGQ+CJQzUBQ1wQnz UNmePEQqmZ1aOKWcW3f1 OcHtWlF2MGicO6Bd UXSqfdlvFr59oA5rKwHs AvN8UPjcJ0JhylW8KGEp sKFeLNsuDJW6N36sx5V0 YNGrDTDsLQB2gYX2 nE3idFtkgowjwHImnBpt ivJtiZuuPHaaEQbfC285 TEGywMszNeV5OIqeQKPc OJ36KJ48wDUvo7O4 oUB2D5KsBUQxnhefkgyu qKF1NNGbXVMwaO88pNAs RFvwMd0em5D4n448PSZg EMBbmA41Sa8hrEjv SRHitOXFaY2jmxzia7dm gikkBqQoETGgRDn3RYr2 FLXsxMyhNcGmZWR3QhW5 ZXI1dJYtgI1ekKhn xlbkoC5lFfy+RkVNQUxF KE72GA77eHRgb8V0jBS1 J7IcBFSvcauqeiuxxXE1 MRIiERZkcG85sLKx JPugRr9lz7D4z045PCFg ATYpmG45Og0csGlyJELs hVZOqQ1vfjbip9rlhbxe RwIrUTJtIPf5KHg8 KHUmyDlbUfFwKQI8EoA5 IIK1eFWevN8cuQwzgbpv jB9zQcj+D2T4J8BgYihv dHI+PL12ZLPfBF51 wTJxsQDpg3xveNr5ReVx CLWnPPK9iUlsZEdyn8Jj JXStK60efOYwd8W7XXQi bGxhcHNlOyBlbXB0 rX0vQUozvgrhy8htiuwn Vzgoh4ddtx44iB83C48m IHdpZHRoPSIzMCUiIHZh sDagdc6mdB6qMu6+ PWMmmYW9nLI4hJ0wYtYl TpE7NZvzY233AgHdsQTf Dgfsd7pyd5znaMm0ObNk JSIgdmFsaWduPSJ0 j5KoDe99R58hWRfkZFLg UZDzDKUnWTNfzGeeij0s uL9uNz9+AC0yi5ofqj97 dY99oKG+PHRkIHN0 kGxnMHkfSQNefE4dEZlg LrJ1AOJtArFcqG96yDAf BKedMl7rcArhoCltOK0t RYSlfuyon140XkMo f0cmJROvjHCvICzkLNA9 C08eu1D5DCDuUHUjXXG5 iAJ7qL2wvMqwdoodyDBh dDsgdmVydGljYWwt JOwgA135RJFdxUaqExIt vNAoB3jfctSNBD7pIcpf dGQ+DWYdQDR8gZpqHIri FJKgnP0nPEMdJ9j3 DaVbNcU1NAqtO7FoyuU8 RTEdhBJbAJVkzEOBuE0y utynt8nvhnadRgCqUTMm VAo6YRj3GVTfdAuc QtPqDGE7LsQ7SSZ3bWBd vH7oxMvhtpdmpM0mOho+ RklOOjwvdGQ+PHRkIHN0 gOiyTJnsUWAthM6z SAEmS6m4SbHbEaR2MGxu F2WvefD8HSNiiCRmOGIx uJYIlQ6ivuhum0etgbqs MmJkPLVuVGy3LNu8 CBQxwZrgLqQfYYZ7KnK6 NAB8nGAnoA5gaVywanfe bJ2cTtz+TVJOOjwvdGQ+ NFJoOEK2mKptJSda DMOnsU6nVQSjU3c9LaQe YrO3AYykQ6QmqrL5EAVp kTCgLPIihWVUaC4iuutm z4hwoinsKjOsRCFu MFd4REw2BEIqdBoeFiYm AOH7QvS9XNC3uMOsdO5n uVfhifefgV6rIon+UGF5 PFQ8DH63IZ04W2Vs PjwvdGFibGU+PHRhYmxl IHdpZHRoPScxMDAlJyBz vWjzOZ0vNy5dFTIeAGBd nYrvqKKpSpGuk7kj YXB (more content not included)... [facility] Coding Summary HTMLBase 64 PvvfhennWOo7sGj+PGhl YWQ+GP5JDPSwE99itVTh sG0JW7oBVN4ZSJRAEBBI KO9IHZ7hrXS8FDwzP4Hb biAv VsjeeCRmOS30HKe4DTZ0 oPanOCpifR3nsPDgJ7h1 UpIsVL80vX13UNtmWCBq XkF2KqFbswlvoROs L6gnUxRxlROsPez+PHRh YmxlIHdpZHRoPScxMDAl WbNfjCmmGG5iVr9fSJKe LWNvbGxhcHNlOiBj b9riVTKeSNuyQR4zbTqk I8NiaNB4JYWzq9d2Nd73 dHI+KADdRGB6cEcvENml f689OuSgm8qbFXK8 zALrQKioQAF9Q12tg4J2 PKIsPQIjESS9kFL7kJ6u vUkxachqX7VkaKLjKmG8 VEA3cNMzuT6wkDki kiywoI2hBui+C70TXG8A ZIUCFP5HSca1Z9BjEmqj dHI+ZD00ZIOnLE91aMNo nFRet8bpcNc2RqKv FDTaOKL2nZicYCsgo5Jx VHPyW01jjQPgt1F8LXZf eRfguPBvCjNxkLX3vE7o LLvufevsa6uxbuoi Stuio4jorr66oC44B72u FRzwEASvYOB0IICuUFUq iYahop5uxQ2tTw9+IDxj y3jqv8mteZy4ZhUr OMDuxaGvmIbsAAO3v7Bi Jv05Q9TlbWxip4HsUdi9 ib11cBMcq6G4lNO4BNlk GIIaiQ9yCMecGnJ5 NRNqQbXnxO17uWZoDOqk Bu4giTdjiRewUM0sAGUi qigwCHYwoP8jKHUzxZXs kTtuVJ1uFTGngfxb s639FcKeDTV1TBMcmAIq Q9KanB3gRdKpREXhOJMs E9RwyBEuUUcaV530MIdc FjX7NPFylfRoM9De KGRzbHivYqV9q9M3Mm3V m3VnqejmQBP7EEtqVQC7 CnM0GgYvNbA4W3BpQou5 DZCanGbrYG1wK2Dq DFKqvzkzfsbonJC4LVDx DFXxpO53bAZwDZcyTm0a k3U6m611CKQqLMKyoJ18 Gs8azSdlMTWxzGGB zJ2atxtir2nuwnwqUwGt JHTpBPt5PLy6ESQmrOol McYzGMC8FaQ9WVX5cOMm cL5ilJmuughnlU8g Oyc+F21tcH9jVQU3DFJ3 pjndGZCglnSiYB04SU90 J2RnNjrdwGNhfKV+PGRp diEmxOdcCQ1vMeVz o8mnw9TrDJgsF5HsBNIz EGilIwz7HUDoNBW6qXJ7 gQ9pVUQdHYkmh3P4qZL0 R9AyomHnlu9nv6nw IDZmVVfiH74odTWwd7P8 FNMriBC6BFMsmDxqZgGo eC24Tra+OURotCyxt7Kf Ngafz9jcl1sugOm5 IjMwJSIgdmFsaWduPSJ0 w0ErCg58F91rIHqlVPJc VZGnTHWsMEDujKcoup4c oB2cUn6+PGNvbCB3 kAS1sT4wTAReVeE3PWeq X191YhVafVReWdmut5ui k8tivIg6AePuYAEulnIl aMziJKA7k3ThLz48 R28eOAlxHPRaQMMsLUNm VWUrxIvbnq2ndQ2xTy0+ YX1zv1phgu09cI94lAH+ HRGmXDX4yEocMGhb WQQupP1lZSsfZbQ3ZZKi OyMedO03tJGcKHruPp5f xUjsiSgeAK5zWIZcizrh d487OfEuk4yqJUWc eXNjDJryGVD2V14ff6A2 IORqLWGiPWC3dWX2cM1j bGlnbjogbGVmdDsgdmVy hJlbLKktJVoeM415 IHRvcDsnPlBhdGllbnQg RcYwCLd2R0YbOek9EYFh iAbsWB3wzXAhMPcaJd6u zUqjiSduYN4dMHMz sjicv900TxZgm4rkNMVd fLIqORnfGHS5Z09dk4N6 EOHkJHQjIMC9vYL2lT5v bGlnbjogbGVmdDsg yeJovDxcFBnmYFpoQ118 IHRvcDsnPkJpcnRoIERh jRX8PP51JT20aXTks1E5 sTH3V3HhTUVlnnbv mmbojND9ZTFrMDPhgT49 Rv5acQxsJp5vSOFyTLO2 KXIsdVUdO6EavI1hDjJz TTSzYSRaF0DhqYJs MLofZ787TBqkGfT1BGKk dwNhB5LtEACgcHweBgK4 h5N8Lz7FP2B4TB29YL59 hVSyc2L9hVM0R4Dt FMAyfvfsyhlkmYW8AIGh BPBsxX67Sd6enQpyJk3k RUXpPJR1KHGbyPLoO4Zk nY9gOnLjKRIaEVZw H4JxlPRtEQnsO574IHly YmV3XTKqrtOmO9VeFWLo wFjjKqF8v7M3Tk6DEGm1 FR92KZ98sFDma3M7 nPZ4V0BpSYDqctriztab xXP2SJOpZKRcvU22Xs8g sAdpEx8yPIFlXVU3PVHp aXNuV3TosI9vZeOt EZOmECUmH2RzqPTpSPnw S925CYffLqK2XIEfygQt D0YzXLLcxMqbPnR1u1J3 Qw8CIXAlIR06NKV8 sCT9IS91DW37J1NkJmqv dGFibGU+PHRhYmxlIHdp ZHRoPScxMDAlJyBzdHls FR7eWl9jJRIyNEUg cEkzuDHpUlCjr3wfQIDf JXyuOE8ogKyaC9WbzAE1 LKGzx8m9Qs86W71eI1Le dXA+GUEdjCY3pLI0 pO9wAjJzLgD5OKiyZ350 OsXujKLfHrtfp8pdo6nz kYu8CcY0ISXxiaWvkKoa NZP3o0RgQi95P11a IHdpZHRoPSIxNSUiIHZh pSbgom2yyV1fTq0+PGNv jEW8uBT1vW6rVwAfIaV8 NGeeC215VcWvoLXk Arujc4ycs4mtbXs7JyTt OJYkvvRvdKnjYAA9y5Ft Jc42C9HucAidh1WoMhe1 tp43aONpx8V6eDO5 S7ZjAJKqtrmkjNLbcDey WZ3vGGCvlbcxSXThfJ3x EZRoA3j9WvAwHxG5XFqj K2TpubF8HMNteEZz SWdaWYG3D95zu9T2IFXy BCDiOQV6pZO9tZ4rpClg bjogbGVmdDsgdmVydGlj MRroBZkoA518CGCf sJsvMVNniI3wROIrvGAl xEzaQK5aOSGhgytlBpzL LUBVXVZIHTWKEtESLF19 HE05sBVen2O0eIA7 C6UiYPWunikskrynjJL6 PVWsGUXwrR59gGThXLse Cd9xj6T0s518QGYuOPEz kD99Qd4zkCgzPKAh iTEBpN1braody8bjcfxu ZyYpSCXoUYg1FFk3VDCu nQgbSxZsUAJ0KkI3QBE8 aTLejW9mvInmslyd pD7uTxd+MDEvMDgvMTk4 ODwvdGQ+YBUcVDV1zVvo WNndJCOkxC9jSCArB2h9 WuWxPfK1JZrpW5Jc ZRDivwvlVf43yH0mGxJw PxE4PMfkP6RsbeG7QPLw lXVjUUigCCD5H93ns3O8 UUXxMVDoIGN6xUA0 mE7beOylthoyuEXjvMqf bnIesZxkFIiaXOmqR161 GIPwxJcwEpQ0CTzlURIc YP04ZQ84yYIyo8L3 iCD6L0LeNCNegtxucfci jNT0HVDiBBQjeF70tXFq GHckSl0rr8G9p114SEMa TAGurN81Ti5qvLlb VCDkzOIAuR4jsnylt4ll wukuUvCsATLvLQt1PKe4 LPWvmXaiLoGeHQA8FwR6 HPJ4wHSuwF9snJbh btfyeN4zKuc+RkVNQUxF JA19GW52mOSvk9C7eXD8 B6IhDQBnhkgpoaxhjEO0 VHWhNINcjH35rUCq PJrkJc0jt8U1v066XBDz EOSnwZ60Jo7ktBifGHOl yQQUxZ3lvmasa5gxmabp PqTnECAcVYc0TWk4 DDAuiZtoYuCdUHM5QdK7 NWJ9qXMfaK6aiJekigto yL7aEpg+XY3rroyoanF0 QS69KE42V8ZnPwbp dGFibGU+PHRhYmxlIHdp ZHRoPScxMDAlJyBzdHls HP7uAm8nNPWpXKZhjWnm yGCmRhAuy3daSHXb ZKupRJ2eyQseY9CvfBM9 MOKcq1c8Vl39J34dQ1Tx dXA+ELNldOI6vYT5pI5p EpFiXoU4YIjrG416 UwNooLLaGkdsy0zkd5se zZc2QxWfYUHygkWabEme TPG9p8QkWq55M03iVLvl ZHRoPSIyMCUiIHZh bLmmds2wkF9xHb4+PGNv vWL0nVA8gD0iBaMpDyW8 OLynS811SlKgoFDuIhji V90xW0KdgSR+PHRy Rfc4OSSfoXfqWC2luJVx CEfxZk6nJVK8AnNwRtCq NMigP0FcUEOxbktlapyo jMR7BVFsOXBtdY72 Hf0ypYlmHz1lDDIpDRK9 WXRpiRJkG4EpqR1qGmPb QIAhDRFtH8LubVFkKOil J667MKbiCyU7NPTq lxOiE9RgWVRbqUftWcG9 e1J6Oo6OmDjafMMlNS0a PfTrWXl4V8BlDlg5OGDh fDfgPW3wpPEkFLhm Kl6caHtnpScxOJ7qYDJw lstfu335BjYgt8jsWIOw xYGaSUigWHN0U84ul5R0 BFHcSACkUIS9cQM0 gR1pjYaulimxgUBfkGyv nrVgcQtaLAmtSMesO669 YMTgeSepAmOWKws0M6Yp Bru2HVGvsXlxVW0k mGTrTKbvId1yfIipsAqv FA6eLEDrradyz969JmDt w0psURDhqNKmTCfjNIY0 Y78kl3I0AJUhMMEo PYA5gKS9sU6ayIigcvsl bGVmdDsgdmVydGljYWwt ZYrfI646YIDfzKtiEt1M Wqw9I9JnIea9TAWb pMguGT7fzOCvKKpeIr0z vGxvyRftFS9zIFMwuyqt o875CuIdd5qfWDUrjEYe UGldMQV5M28oy5Z2 VYWaPZSwLQN2kOD4rT3p bGlnbjogbGVmdDsgdmVy zBrePDucLJlgM919EMOt cDsnPlBheWVyOjwv dGQ+MB69oe17X1LiWklt Juo6KYCxDLB5dCH3uA5k WKBwNLfgy9D1uVK5J8Bv qqWsbq5zb0umFZEl ZTo (more content not included)... [facility] Ambulance Noteon 12-26-2021 Ambulance Note [id number] [email or web address] [facility] ED Clinical Summaryon 2021 ED Clinical Summary [facility] - Emergency Department [address] [place], [place] [id number] ED Clinical Summary PERSON INFORMATION Name: LOCO HICKS Age: 36 Years Sex: FEMALE : 1985 MRN: Acct#: Visit Reason: Dizziness; FACIAL NUMBNESS, DIZZINESS Arrival: 12/21/2021 18:23:41 Discharge: 12/22/2021 00:02:00 LOS: 000 05:39 Check In: 12/21/2021 18:23:41 Checkout:12/22/2021 00:02:00 Address: [address] [place] [id number] PCP: Provider, None PROVIDER INFORMATION Provider Role Assigned Unassigned Alvin Bryan ED Provider 12/21/2021 18:26:52 12/21/2021 18:30:20 Sanjuana Ramirez [employer] Nurse 12/21/2021 18:29:17 12/21/2021 23:14:12 MARIAJOSE EDEN ED PA 12/21/2021 18:30:25 Kerline Cartagena [employer] Nurse 12/21/2021 21:46:32 Kerline Merrill RN ED [...] Medication Allergies PHYSICIAN DOCUMENTATION Patient: LOCO HICKS [facility]: [id number] Age: 36 years Sex: FEMALE : 1985 [...] - pharynx pink and moist. NECK: -Supple ([id number]): non-tender. CARD: -Rate and rhythm: Regular -Edema: No -Calf pain: No RESP: -Respiratory effort and chest excursion with respirations: Normal -Breath sounds equal bilaterally: Clear -Wheezes: No -Rales: No BACK: -Signs of pain with movement: No ABD: -Distended: No (more content not included)... Normal [facility] ED Patient Education Noteon 12-22-2021 ED Patient Education Note Education Materials [facility] ED Patient Summaryon 022 ED Patient Summary [facility] - Emergency Department [address] [place] [id number] PATIENT DISCHARGE INSTRUCTIONS Patient Information Name: LOCO HICKS Age: 36 Years Date of : 1985 Reason For Visit: Dizziness; FACIAL NUMBNESS, DIZZINESS Arrival Time: 12/21/2021 18:23:41 Primary Care Physician: Provider, None Attending Physician: Alvin Bryan Comment: Visit Diagnosis: Diagnoses This Visit Dizziness ([id number]) Paresthesias (R20.2) Visual disturbance (H53.9) Prescription Information: If you have been given a prescription for narcotics, seek immediate medical attention if you have any difficulty breathing or any sudden status changes such as confusion and sleepiness. If you or anyone you know is experiencing suicidal thoughts, mental health, alcohol and/or drug addiction problems; contact the [facility] 17/02 Crisis Hotline -Text 4HVOY to 637709. If you received any narcotics, sedation, or [...] you received today in the [facility] Emergency Department were for an urgent problem and are not intended as complete care. It is important for you to follow up with a doctor, nurse practitioner, or physician?s assistant general manager for ongoing care. If your symptoms become [...] so we can reach you if necessary. [facility] Emergency Department has provided you with a complete list of medications post discharge. Please inform your flash designer/provider of your visit and for further instruction [...] Disease Control and Prevention March 2014 Normal [facility] MRI BRAIN W WO CONTRASTon [...] Ean Cedillo MD 12/22/21 Final result Normal [facility] MRI CERVICAL SPINE W WO CONT [facility] 12-22-2021 MRI CERVICAL SPINE W WO CONTRAST [...] Ean Cedillo MD 12/22/21 Final result Normal [facility] [id number] 12-22-2021 SARS-CoV-2 (COVID-19) RNA SHELBI+probe Ql (Unsp spec) Not detected Normal NOTDET [facility] Comment on above: Result Comment: Rapid [...] management decisions. Fact sheet for Healthcare Providers: https://www.fda.gov/media/218672/download Fact sheet for Patients: https://www.fda.gov/media/073021/download Methodology: Isothermal Nucleic Acid Amplification Performed By: #### C OVRB #### [place] [address] Packaging Engineer: Campbell Simmons MD SARS-CoV-2 (COVID-19) PCRon 12-22-2021 Employed in healthcare? No Invalid Interpretation Code [facility] Comment on above: Performed By: #### 6 [id number] ####[facility] (DEFAULT)[address] [place] [address] Group care resident? No Invalid Interpretation Code [facility] Comment on above: Performed By: #### 6 [id number] ####[facility] (DEFAULT)[address] [place] [address] In ICU? No Invalid Interpretation Code [facility] Comment on above: Performed By: #### 6 [id number] ####[facility] (DEFAULT)[address] [place] [address] status? Not Invalid Interpretation Code [facility] Comment on above: Performed By: #### 6 [id number] ####[facility] (DEFAULT)[address] [place] [address] SARS-CoV-2 (COVID-19) RNA SHELBI+probe Ql (Unsp spec) Not detected Normal Not Detected [facility] Comment on above: Result Comment: Perf ormed by PCR methodology. Performed By: #### 6 [id number] ####[facility] (DEFAULT)[address] [place] [address] SARS-CoV-2 (COVID-19) RNA SHELBI+probe Ql (Unsp spec) No Invalid Interpretation Code [facility] Comment on above: Performed By: #### 6 [id number] ####[facility] (DEFAULT)[address] [place] [address] Symptomatic as defined by CDC? No Invalid Interpretation Code [facility] Comment on above: Performed By: #### 6 [id number] ####[facility] (DEFAULT)[address] [place] [address] Transfer Noteon 12-22-2021 Transfer Note medication list sent with patient, Complete ED chart sent with patient. CD and med list sent w. patient to Hospital [Electronically Signed on: 12/22/2021 00:05 EDT] Nadya Garcia [Verified on: 12/22/2021 00:05 EDT] Nadya Garcia Normal [facility] Transfer Note [id number] #1.00[facility] Transfer Note [id number] #1.00OTGTIFF [facility] Transfer Note transport called, [facility] called for transport to [facility]. Willie stated will call when back in area from [facility] Trip. [Electronically Signed on: 12/21/2021 22:14 EDT] Nadya Garcia [Verified on: 12/21/2021 22:14 EDT] Nadya Garcia [facility] .Auto Diff 1on 12-21-2021 Auto [place] % 7 % Normal 1-12 [facility] Comment on above: Performed By: #### 7 524758, [id number], 2322946, 36856583, 7486477, 2621308, 8397122575, 6960264, [id number] ####[facility] (DEFAULT)[address] [place] [address] Baso Abs# 0.0 x10 Normal 0.0-0.2 [facility] Comment on above: Performed By: #### 7 425367, [id number], 6396909, 77040553, 7035726, 2688913, 7058326168, 2098637, [id number] ####[facility] (DEFAULT)[address] [place] [address] Basophils/100 WBC (Bld) 0.4 % Normal 0.2-2.0 [facility] Comment on above: Performed By: #### 7 344635, [id number], 3311287, 80452570, 5160789, 7289180, 3378618666, 5803601, [id number] ####[facility] (DEFAULT)[address] [place] [address] Eos Abs# 0.1 x10 Normal 0.0-0.4 [facility] Comment on above: Performed By: #### 7 616662, [id number], 9392923, 43271995, 7288518, 8087289, 6481544163, 0193116, [id number] ####[facility] (DEFAULT)[address] [place] [address] Eosinophils/100 WBC (Bld) 0.7 % Low 0.9-4.0 [facility] Comment on above: Performed By: #### 7 471999, [id number], 5395323, 25956631, 4471407, 8078519, 3188035743, 3884436, [id number] ####[facility] (DEFAULT)[address] [place] [address] Lymph Abs# 3.2 x10 High 1.3-2.9 [facility] Comment on above: Performed By: #### 7 281446, [id number], 2401677, 59584792, 8199048, 7465030, 0969150777, 9342163, 0967751588 ####[facility] (DEFAULT)[address] [place] [address] Lymphocytes/100 WBC (Bld) 40 % Normal 14-48 [facility] Comment on above: Performed By: #### 7 110455, [id number], 7894130, 14298968, 5106957, 1497214, 6643529853, 5951432, 1318965347 ####[facility] (DEFAULT)[address] [place] [address] [place] Abs# 0.6 x10 Normal 0.0-0.8 [facility] Comment on above: Performed By: #### 7 536637, [id number], 0187012, 09101027, 8549523, 3714535, 7192283083, 1304533, 8794535245 ####[facility] (DEFAULT)[address] [place] [address]337 Neut Abs# 4.3 x10 Normal 1.5-9.2 [facility] Comment on above: Performed By: #### 7 990960, [id number], 5888118, 08629228, 6755854, 2077192, 3043552283, 1659163, 9634016522 ####[facility] (DEFAULT)[address] [place] [address] 18444 Neutrophils/100 WBC (Bld) 53 % Normal 44-88 [facility] Comment on above: Performed By: #### 7 409503, 2929459830, 4786978, 81242378, 3601512, 6785891, 0908678063, 0526110, 9938342881 ####[facility] (DEFAULT)[address] [place] [address] CBC w/ Auto Diffon 2 Erythrocyte distribution width (RBC) [Ratio] 14.3 % Normal 11.5-15.0 [facility] Comment on above: Performed By: #### 7 577659, [id number], 8132100, 26775230, 0895967, 8762311, 9237333378, 1105205, 7453688287 ####[facility] (DEFAULT)[address] [place] [address] Hematocrit (Bld) [Volume fraction] 42.3 % High 33.7-40.4 [facility] Comment on above: Performed By: #### 7 840935, 5094819783, 9741076, 70534858, 6445154, 2546596, 1292007716, 7978986, 6970521867 ####[facility] (DEFAULT)[address] [place] [address]9905 Hemoglobin (Bld) [Mass/Vol] 13.7 g/dL Normal 11.3-15.9 [facility] Comment on above: Performed By: #### 7 562045, 2000343332, 0254419, 25930399, 2069121, 9325871, 2857500178, 7995096, 7580879698 ####[facility] (DEFAULT)[address] [place], [place] [id number] Instr WBC 8.2 x10 Invalid Interpretation Code [facility] Comment on above: Performed By: #### 7 111382, [id number], 0360998, 83034899, 1407358, 8571342, 0407550591, 0979656, [id number] ####[facility] (DEFAULT)[address] [place] [address]461 Man Diff? Auto Normal [facility] Comment on above: Performed By: #### 7 573401, [id number], 4301471, 47032316, 3855156, 0365563, 4112931216, 4470407, 2651537624 ####[facility] (DEFAULT)[address] [place] [address] 10568 MCH (RBC) [Entitic mass] 31 pg Normal 24-34 [facility] Comment on above: Performed By: #### 7 917004, 8135061767, 7930189, 85977748, 7537676, 5804015, 6652617768, 4797843, 1670462259 ####[facility] (DEFAULT)[address] [place] [address] 75097 MCHC (RBC) [Mass/Vol] 32 g/dL Normal 26-37 [facility] Comment on above: Performed By: #### 7 605292, 0625775606, 2237434, 44499399, 2875878, 1638223, 9431622803, 5514080, 6970237927 ####[facility] (DEFAULT)[address] [place] [address] 87202 MCV (RBC) [Entitic vol] 96 fL Normal 81-100 [facility] Comment on above: Performed By: #### 7 098777, 1674844231, 8206624, 98621322, 1813288, 0848444, 3667605667, 1796765, 6047823865 ####[facility] (DEFAULT)[address] [place] [address] 99149 Platelet 363 x10 Normal 138-427 [facility] Comment on above: Performed By: #### 7 772429, 9212471503, 9408260, 88264714, 1695924, 1152306, 0899481408, 0999306, 6230621750 ####[facility] (DEFAULT)[address] [place] [address] 30503 Platelet mean volume (Bld) [Entitic vol] 10.2 fL Normal 6.3-10.2 [facility] Comment on above: Performed By: #### 7 100169, 9100616849, 8183497, 64251063, 3785347, 5461840, 4090837682, 5473668, 6858628161 ####[facility] (DEFAULT)[address] [place] [address] RBC 4.42 x10 Normal 3.70-5.30 [facility] Comment on above: Performed By: #### 7 303388, [id number], 0703980, [id number], 1251998, 5483273, [id number], 6486736, [id number] ####[facility] (DEFAULT)[address] [place] [address] WBC 8.2 x10 Normal 3.5-10.5 [facility] Comment on above: Performed By: #### 7 212923, [id number], 3455236, 66613786, 9107947, 0098805, 3616659630, 6969695, 6884521290 ####[facility] (DEFAULT)[address] [place] [address] CMP Standardon 12-21-2021 eGFR Non AA 57 mL/min/1.73m2 Invalid Interpretation Code [facility] Comment on above: Performed By: #### 7 417273, [id number], 4096426, 18657209, 7497062, 9837519, 0848067850, 4442216, [id number] ####[facility] (DEFAULT)[address] [place] [address] eGFR AA >60 Invalid Interpretation Code [facility] Comment on above: Result Comment: Lead Athlete nathalia Kidney disease could be indicated at eGFRs of less than 60 ml/min/1.73m2. Kidney Failure is indicated at less than 15 ml/min/1.73m2 Performed By: #### 7 587144, [id number], 4660328, 22573934, 6470178, 8190024, 4052816365, 7266786, 7042980547 ####[facility] (DEFAULT)[address] [place] [address] Albumin [Mass/Vol] 4.7 g/dL Normal 3.5-5.0 [facility] Comment on above: Performed By: #### 7 296326, [id number], 1395796, 76749604, 6086651, 0896580, 6178767227, 2383156, 6295378853 ####[facility] (DEFAULT)[address] [place] [address] Albumin/Globulin [Mass ratio] 1.1 {ratio} Low 1.4-2.6 [facility] Comment on above: Performed By: #### 7 628967, 1126228645, 3470408, 76363967, 7689846, 1202879, 9390002670, 1848243, 7047399339 ####[facility] (DEFAULT)[address] [place] [address] Alk Phos 99 IU/L High 32-91 [facility] Comment on above: Performed By: #### 7 721764, 4928040286, 4364129, 43123811, 6373952, 8921638, 2476226318, 2010083, 5089298687 ####[facility] (DEFAULT)[address] [place] [address] 32751 ALT [Catalytic activity/Vol] 32.0 U/L Normal 14.0-54.0 [facility] Comment on above: Performed By: #### 7 983342, [id number], 2146201, 83746252, 4856694, 9718632, 3138358549, 5090801, 7533285581 ####[facility] (DEFAULT)[address] [place] [address] 70958 Anion gap [Moles/Vol] 23.0 mmol/L High 5.0-19.0 [facility] Comment on above: Performed By: #### 7 906311, [id number], 3882701, 04854736, 1486242, 4155554, 0201605971, 7099599, 8430852860 ####[facility] (DEFAULT)[address] [place] [address] 44225 AST [Catalytic activity/Vol] 41 U/L Normal 15-41 [facility] Comment on above: Performed By: #### 7 124315, 8519134135, 9287828, 71576462, 6979403, 8412746, 2094742491, 7966818, 8941667894 ####[facility] (DEFAULT)[address] [place] [address] 37202 Bili Total 0.4 mg/dL Normal 0.3-1.2 [facility] Comment on above: Performed By: #### 7 968544, 0169648404, 8660244, 79108099, 8682390, 4483978, 2444451928, 8857262, 8281903846 ####[facility] (DEFAULT)[address] [place] [address] 88518 Calcium [Mass/Vol] 10.2 mg/dL Normal 8.9-10.3 [facility] Comment on above: Performed By: #### 7 588784, 2462070211, 3588796, 69918880, 7647708, 7007612, 9579763788, 4061779, 2199621489 ####[facility] (DEFAULT)[address] [place] [address] 92262 Chloride [Moles/Vol] 96 mmol/L Low 101-111 [facility] Comment on above: Performed By: #### 7 558402, 1742852616, 3741739, 57000844, 6560377, 7146405, 6379823997, 4031340, 3740442857 ####[facility] (DEFAULT)[address] [place] [address] 11057 CO2 [Moles/Vol] 24 mmol/L Normal 21-32 [facility] Comment on above: Performed By: #### 7 134429, 3845634251, 6004992, 24907444, 8703868, 1387207, 0228331357, 2200909, 7073535298 ####[facility] (DEFAULT)[address] [place] [address] 00545 Creatinine [Mass/Vol] 1.10 mg/dL Normal 0.60-1.30 [facility] Comment on above: Performed By: #### 7 077759, 5172253305, 4770247, 29741304, 3799391, 3179431, 9291160183, 2316961, 0360805393 ####[facility] (DEFAULT)[address] [place] [address] 08972 Globulin (S) [Mass/Vol] 4.2 g/dL Normal 1.5-4.3 [facility] Comment on above: Performed By: #### 7 583596, 9356979368, 3847917, 29715990, 7311746, 5633750, 0012855343, 0761112, 0399953991 ####[facility] (DEFAULT)[address] [place] [address] 46785 Glucose [Mass/Vol] 97.0 mg/dL Normal 74.0-118.0 [facility] Comment on above: Performed By: #### 7 810004, 7735061839, 6089522, 25626452, 5367197, 2753570, 4825234216, 5553192, 6183065445 ####[facility] (DEFAULT)[address] [place] [address] 98935 Osmolality 278 mOsm/L Invalid Interpretation Code [facility] Comment on above: Performed By: #### 7 515516, 8999972873, 4043718, 77974609, 2610900, 5287590, 0096033239, 8968035, 9882101268 ####[facility] (DEFAULT)[address] [place] [address] 12586 Potassium [Moles/Vol] 3.5 mmol/L Low 3.6-5.1 [facility] Comment on above: Performed By: #### 7 177114, 6363882224, 9820745, 32902043, 6072823, 1829682, 1061582905, 4916713, 8528164255 ####[facility] (DEFAULT)[address] [place] [address] 05675 Protein [Mass/Vol] 8.9 g/dL High 6.5-8.1 [facility] Comment on above: Performed By: #### 7 413273, 7776961401, 7874081, 34156506, 4836284, 2040942, 3395923194, 9024946, 7286293384 ####[facility] (DEFAULT)[address] [place] [address] 66365 Sodium [Moles/Vol] 139.0 mmol/L Normal 136.0-144.0 [facility] Comment on above: Performed By: #### 7 899839, 1184420390, 2760790, 30089814, 1380576, 4910478, 9404420833, 0913298, 0841803828 ####[facility] (DEFAULT)[address] [place] [address] 05982 Urea nitrogen [Mass/Vol] 15 mg/dL Normal 8-26 [facility] Comment on above: Performed By: #### 7 200263, 1668125732, 1428298, 99753257, 1073101, 6031706, 2485661060, 0943740, 1952878666 ####[facility] (DEFAULT)[address] [place] [address] 58835 Urea nitrogen/Creatinine [Mass ratio] 14.0 mg/mg Normal 4.6-16.2 [facility] Comment on above: Performed By: #### 7 990974, 6337794537, 8098884, 94021186, 3854174, 0890208, 3163238094, 0860237, 9133216448 ####[facility] (DEFAULT)[address] [place] [address] Head or Brain w/o Contras ton [...] 12/21/21 9:19 pm Technologist: Erwin CHAUDHARI Normal [facility] D-Dimeron 12-21-2021 D-Dimer 0.49 mg/L FEU Normal 0.19-0.50 [facility] Comment on [...] Liver cirrhosis ? Performed By: #### 7 000351, 1863465830, 7186604, 06713422, 0494604, 5977001, 0018689134, 0839477, 1720571914 ####[facility] (DEFAULT)[address] [place] [address] ED Note - Otheron 12-21-2021 ED Note - Other Neurology called back from [facility], on phone with Mariajose LLANES [Electronically Signed on: 12/21/2021 21:29 EDT] Nadya Garcia [Verified on: 12/21/2021 21:29 EDT] Nadya Garcia [facility] ED Note - Other paging Neurology through [facility] for consult for Mariajose LLANES [Electronically Signed on: 12/21/2021 21:12 EDT] Nadya Garcia [Verified on: 12/21/2021 21:12 EDT] RadhaNadya [facility] ED Note - Physicianon 2021 [...] - pharynx pink and moist. NECK: -Supple (flfo-[id number]): non-tender. CARD: -Rate and rhythm: Regular -Edema: [...] I di (more content not included)... Normal [facility] ED Note-Nursingon 12-21-2021 ED Note-Nursing Table Tender assumed care for pt at 2124. Pt had fluids running at that time. Will continue to give the rest of the liter per VO from MARIO ALBERTO. MARIO ALBERTO also stated that after speaking with neuro, pt is to be transferred to [facility] for MRI and further evaluation. Normal [facility] Ethanol.on 12-21-2021 Ethanol Level 9.0 mg/dL High 0.0-5.0 [facility] Comment on above: Performed By: #### 2 [id number] #### [facility] (DEFAULT) [address] [place] [address] 70333 Extra [place] 12-21-2021 Tube Collected Yes Invalid Interpretation Code [facility] Comment on above: Performed By: #### 2 018440, [id number] #### [facility] (DEFAULT) [address] [place] [address] 84242 Extra Redon 12-21-2021 Tube Collected Yes Invalid Interpretation Code [facility] Comment on above: Performed By: #### 7 181923, [id number], 9428444, 82585505, 3631032, 6775778, 7376852893, 7251704, 8616607364 #### [facility] (DEFAULT) [address] [place] [address] 29930 Magnesiumon 12-21-2021 Magnesium [Mass/Vol] 2.02 mg/dL Normal 1.80-2.50 [facility] Comment on above: Performed By: #### 7 122583, 9492441200, 8336118, 85957519, 0436896, 1369547, 2997953328, 8238931, 8970939335 ####[facility] (DEFAULT)[address] [place] [address] 11651 PTon 12-21-2021 INR Coag (PPP) [Relative time] 0.94 {INR} Normal 0.91-1.11 [facility] Comment on above: Performed By: #### 7 961424, 3285290678, 0133934, 90301412, 1451445, 1711682, 7314206469, 1890446, 2079651706 ####[facility] (DEFAULT)[address] [place] [address] PT 10.2 second(s) Normal 9.7-11.8 [facility] Comment on above: Performed By: #### 7 689195, 1710417092, 7783660, 48453810, 1854966, 4111354, 3389890242, 6253115, 4540738362 ####[facility] (DEFAULT)[address] [place] [address] 95508 PTTon 12-21-2021 PTT 26 second(s) Normal 25-35 [facility] Comment on above: Performed By: #### 7 338750, 6690959832, 5631397, 00223505, 9937591, 7317592, 9705845868, 5269984, 4572325886 ####[facility] (DEFAULT)[address] [place] [address] 77488 Test Urine 1 U Preg Negative Normal [facility] Comment on above: Performed By: #### 1 [id number], 437981795 ####[facility] (DEFAULT)[address] [place], [place] [address] U Preg Internal Control Pass [facility] Comment on above: Performed By: #### 1 [id number], 856239169 ####[facility] (DEFAULT)[address] [place] [address] 18372 Salicylateon 12-21-2021 Salicylate Lvl <4.0 Normal 0.0-30.0 [facility] Comment on above: Result Comment: Sali cylate ranges less than 30 mg/dL are considered to be therapeutic. Levels greater than 30 mg/dL are considered toxic and levels greater than 60 mg/dL may be lethal. Performed By: #### 2 131779, [id number] #### [facility] (DEFAULT) [address] [place] [address] 97705 TnI HSon 12-21-2021 Troponin I High Sensitivity <2 Normal <=15 [facility] Comment on above: Result Comment: Male Baseline Delta 1Hr (Note pg/mL=ng/L) <20pg/mL 50-60% >20pg/mL 20% Female Baseline Delta 1Hr <15pg/mL 50-60% >15pg/mL 20% Other Baseline Delta 1Hr <18ng/mL 50-60% >18ng/mL 20% ([employer] Guidelines February 2018) Performed By: #### 7 590693, 0254477577, 0563606, 40649964, 5582078, 8218141, 4956926733, 6260956, 0544532340 ####[facility] (DEFAULT)[address] [place] [address] 08802 Triage Panel 1212-21-2021 Triage Internal Control Pass [facility] Comment on above: Performed By: #### 1 [id number] ####[facility] (DEFAULT)[address] [place] [address] 67162 U Amph Scr Negative Normal [facility] Comment on above: Performed By: #### 1 [id number] ####[facility] (DEFAULT)[address] [place] [address] 62596 U Vanesa Scr Negative [facility] Comment on above: Performed By: #### 1 [id number] ####[facility] (DEFAULT)[address] [place] [address] 08086 U Benzodia Scr Negative [facility] Comment on above: Performed By: #### 1 [id number] ####[facility] (DEFAULT)[address] [place] [address] 66335 U Cannab Scrn Negative [facility] Comment on above: Performed By: #### 1 [id number] ####[facility] (DEFAULT)[address] [place] [address] 49855 U Cocaine Scr Negative [facility] Comment on above: Performed By: #### 1 [id number] ####[facility] (DEFAULT)[address] [place] [address] 10063 U Methadone Scr Negative [facility] Comment on above: Performed By: #### 1 [id number] ####[facility] (DEFAULT)[address] [place] [address] 34777 U Methamp Scrn Negative [facility] Comment on above: Performed By: #### 1 [id number] ####[facility] (DEFAULT)[address] [place] [address] 34373 U Opiate Scr Negative [facility] Comment on above: Performed By: #### 1 [id number] ####[facility] (DEFAULT)[address] [place] [address] 92630 U Oxycod Scr Negative [facility] Comment on above: Performed By: #### 1 [id number] ####[facility] (DEFAULT)[address] [place] [address] 71671 U Phencyclidine Scr Negative [facility] Comment on above: Performed By: #### 1 [id number] ####[facility] (DEFAULT)[address] [place] [address] 49628 U Propoxyphene Scr Negative [facility] Comment on above: Performed By: #### 1 [id number] ####[facility] (DEFAULT)[address] [place] [address] 55259 U Tricyclic Antidepress Scr Negative [facility] Comment on [...] PPX Propoxyphene (Norpropoxyphene): 300 ng/mL THC Cannabinoids (36-zvg-7-carboxy- -THC): 50 ng/mL TCA Tricyclic-Antidepressants (Desipramine): 300 ng/mL Performed By: #### 1 [id number] ####[facility] (DEFAULT)[address] [place] [address] Urine Source Clean Catch Normal [facility] Comment on above: Performed By: #### 1 [id number] ####[facility] (DEFAULT)[address] [place] [address] UA w Culture if Ind Standard on 12-21-2021 Color (U) Yellow Normal [facility] Comment on above: Performed By: #### 1 [id number], [id number] ####[facility] (DEFAULT)[address] [place] [address] Culture? Not Indicated Invalid Interpretation Code [facility] Comment on above: Result Comment: Resu lt created by rule GL_MAGR_ADD_UA_[id number] Performed By: #### 1 [id number], [id number] ####[facility] (DEFAULT)[address] [place] [address] Glucose (U) [Mass/Vol] Negative Normal [facility] Comment on above: Performed By: #### 1 [id number], [id number] ####[facility] (DEFAULT)[address] [place] [address] Ketones Ql (U) Negative Normal [facility] Comment on above: Performed By: #### 1 [id number], [id number] ####[facility] (DEFAULT)[address] [place] [address] 74454 Micro? Not Indicated Invalid Interpretation Code [facility] Comment on above: Result Comment: Resu lt created by rule GL_MAGR_ADD_UA_MICRO Performed By: #### 1 [id number], [id number] ####[facility] (DEFAULT)[address] [place] [address] 62038 UA Bilirubin Negative Normal [facility] Comment on above: Performed By: #### 1 [id number], [id number] ####[facility] (DEFAULT)[address] [place] [address] UA Blood Negative Normal NEGATIVE [facility] Comment on above: Performed By: #### 1 [id number], [id number] ####[facility] (DEFAULT)[address] [place] [address] 08276 UA Clarity CLEAR Normal CLEAR [facility] Comment on above: Performed By: #### 1 [id number], [id number] ####[facility] (DEFAULT)[address] [place] [address] 45322 UA Leuk Est Negative Normal NEGATIVE [facility] Comment on above: Performed By: #### 1 [id number], [id number] ####[facility] (DEFAULT)[address] [place] [address] 78777 UA Nitrite Negative Normal NEGATIVE [facility] Comment on above: Performed By: #### 1 [id number], [id number] ####[facility] (DEFAULT)[address] [place] [address] 25830 UA pH 6.5 Normal 5-8 [facility] Comment on above: Performed By: #### 1 [id number], [id number] ####[facility] (DEFAULT)[address] [place] [address] 45470 UA Protein Negative Normal NEGATIVE [facility] Comment on above: Performed By: #### 1 [id number], [id number] ####[facility] (DEFAULT)[address] [place] [address] 07910 UA Spec Grav <=1.005 Normal 1.001-1.035 [facility] Comment on above: Performed By: #### 1 [id number], [id number] ####[facility] (DEFAULT)[address] [place] [address] 12526 UA Urobilinogen 0.2 mg/dL Normal 0.2-1.0 [facility] Comment on above: Performed By: #### 1 [id number], [id number] ####[facility] (DEFAULT)[address] [place] [address] 47933 Breakpoint UA Normal [facility] Comment on above: Performed By: #### 1 [id number], [id number] ####[facility] (DEFAULT)[address] [place] [address] Urine Source Clean Catch Normal [facility] Comment on above: Performed By: #### 1 [id number], [id number] ####[facility] (DEFAULT)[address] [place] [address] 60310 XR Chest 2 Viewson 2 XR Chest [...] Signature): Víctor Bowen 12/21/21 9:38 pm Technologist: BARBRA,L Normal [facility] CARDIAC HUMAIRA ADMITon 021 CK [Catalytic activity/Vol] 117 U/L Normal 30-135 [facility] Comment on above: Performed By: #### T SH, CMADM, CMP #### [facility] [address] [id number] Nelida Lily CK.MB [Mass/Vol] 1.16 ng/mL Normal <=2.[address] [facility] Comment on above: Performed By: #### T JOÃO LOCK, CMP #### [facility] [address] [address] Nelida Lily HSTROP <4.0 Normal 4.0-35.5 [facility] Comment on above: Result Comment: CUT- OFF POINTS HAVE BEEN ESTABLISHED BASED ON THE FOURTH UNIVERSAL DEFINITIONS OF MYOCARDIAL INFARCTION. THE UPPER REFERENCE LIMIT (URL) OF TROPONIN, DEFINED THE 99TH PERCENTILE OF cTnI DISTRIBUTION IN A REFERENCE POPULATION, HAS BEEN CONFIRMED THE DECISION THRESHOLD FOR MT DIAGNOSIS. Performed By: #### T JOÃO LOCK, CMP #### [facility] [address] [place] [address] Nelida Lily NGA 41.0 ng/mL Normal <=61.5 [facility] Comment on above: Performed By: #### T JOÃO LOCK, CMP #### [facility] [address] [place], [place] [address] Nelida Lily CBC AUTO DIFFon 02-23-2021 BASO # 0.1 103/ul Normal 0.0-0.1 [facility] Comment on above: Performed By: #### C BC #### [facility] [address] [place], [place] [address] Nelida Lily Basophils/100 WBC (Bld) 1.0 % Normal 0.2-2.0 [facility] Comment on above: Performed By: #### C BC #### [facility] [address] [place] [address] Nelida Lily EO # 0.1 103/ul Normal 0.0-0.7 [facility] Comment on above: Performed By: #### C BC #### [facility] [address] [place], [place] [address] Nelida Lily Eosinophils/100 WBC (Bld) 2.2 % Normal 0.9-7.0 [facility] Comment on above: Performed By: #### C BC #### [facility] [address] [place] [address] Nelida Lily Erythrocyte distribution width (RBC) [Ratio] 14.2 % Normal 11.0-15.0 [facility] Comment on above: Performed By: #### C BC #### [facility] [address] [place] [address] Nelida Lily Hematocrit (Bld) [Volume fraction] 40.6 % Normal 36.0-48.0 [facility] Comment on above: Performed By: #### C BC #### [facility] [address] [place] [address] Nelida Lily Hemoglobin (Bld) [Mass/Vol] 13.3 g/dL Normal 12.0-16.0 [facility] Comment on above: Performed By: #### C BC #### [facility] [address] [place] [address] Nelida Lily IG # 0.02 10e3/ul Normal 0.00-0.03 [facility] Comment on above: Performed By: #### C BC #### [facility] [address] [place] [address] Nelida Lily IG % 0.4 % Normal 0.0-0.5 [facility] Comment on above: Performed By: #### C BC #### [facility] [address] [place] [address] Nelida Lily LYMPH # 1.7 103/ul Normal 1.2-3.8 [facility] Comment on above: Performed By: #### C BC #### [facility] [address] [place] [address] Nelida Lily Lymphocytes/100 WBC (Bld) 34.6 % Normal 20.5-60.0 [facility] Comment on above: Performed By: #### C BC #### [facility] [address] [place], [place] [address] Nelida Lily MANUAL DIFF REQ NO Normal [facility] Comment on above: Performed By: #### C BC #### [facility] [address] [place], [place] [address] Nelida Lily MCH (RBC) [Entitic mass] 31.5 pg Normal 26.7-34.0 [facility] Comment on above: Performed By: #### C BC #### [facility] [address] [place] [address] Nelida Bautista MCHC (RBC) [Mass/Vol] 32.8 g/dL Normal 29.9-35.2 [facility] Comment on above: Performed By: #### C BC #### [facility] [address] [address] Nelida Bautista MCV (RBC) [Entitic vol] 96.2 fL Normal 81.0-99.0 [facility] Comment on above: Performed By: #### C BC #### [facility] [address] [place] [address] Nelida Bautista MONO # 0.4 103/ul Normal 0.3-0.8 [facility] Comment on above: Performed By: #### C BC #### [facility] [address] [place] [address] Nelida Bautista Monocytes/100 WBC (Bld) 7.1 % Normal 1.7-12.0 [facility] Comment on above: Performed By: #### C BC #### [facility] [address] [place] [address] Nelida Bautista NEUT # 2.7 103/ul Normal 1.4-6.5 [facility] Comment on above: Performed By: #### C BC #### [facility] [address] [place] [address] Nelida Bautista Neutrophils/100 WBC (Bld) 54.7 % Normal 43.0-75.0 [facility] Comment on above: Performed By: #### C BC #### [facility] [address] [place], [place] [address] Nelidajose Bautista Platelet mean volume (Bld) [Entitic vol] 9.8 fL Normal 9.5-13.5 [facility] Comment on above: Performed By: #### C BC #### [facility] [address] [place], [place] [address] Nelida Lily PLT 320 103/ul Normal 150-450 [facility] Comment on above: Performed By: #### C BC #### [facility] [address] [place] [address] Nelida Bautista RBC 4.22 106/ul Normal 4.20-5.40 [facility] Comment on above: Performed By: #### C BC #### [facility] [address] [id number] Nelida Kimbleen WBC 4.9 103/ul Normal 4.0-11.0 [facility] Comment on above: Performed By: #### C BC #### [facility] [id number] STROKE HEAD WOon 02-24-20 [...] JANESSA SKINNER Date: 2021-02-23 13:52 Normal [facility] ER URINE PROFILEon Bilirubin Ql (U) Negative Normal NEGATIVE [facility] Comment on above: Performed By: #### E RUR #### [facility] [address] [place] [address] Nelida Bautista Clarity (U) CLEAR Normal CLEAR [facility] Comment on above: Performed By: #### E RUR #### [facility] [address] [place] [address] Nelida Lily Color (U) LT. YELLOW Normal YELLOW [facility] Comment on above: Performed By: #### E RUR #### [facility] [address] [place], [place] [id number] Nelida Liyl ERUAHD A micrscopic examination will be performed if indicated. Normal [facility] Comment on above: Performed By: #### E RUR #### [facility] [address] [place] [address] Nelida Lily Glucose Ql (U) Negative Normal NEGATIVE [facility] Comment on above: Performed By: #### E RUR #### [facility] [address] [place] [address] Nelida Lily Hemoglobin Ql (U) Negative Normal NEGATIVE [facility] Comment on above: Performed By: #### E RUR #### [facility] [address] [place] [address] Nelida Lily Ketones Ql (U) Negative Normal NEGATIVE [facility] Comment on above: Performed By: #### E RUR #### [facility] [address] [place] [address] Nelida Lily LEUKOCYTES Negative Normal NEGATIVE [facility] Comment on above: Performed By: #### E RUR #### [facility] [address] [place] [address] Nelida Lily Nitrite Ql (U) Negative Normal NEGATIVE [facility] Comment on above: Performed By: #### E RUR #### [facility] [address] [place] [address] Nelida Lily pH (U) 8.0 [pH] Normal 5-9 [facility] Comment on above: Performed By: #### E RUR #### [facility] [address] [place] [address] Nelida Lily SPEC GRAVITY 1.020 Normal 1.005-<=1.025 [facility] Comment on above: Performed By: #### E RUR #### [facility] [address] [place] [address] Nelida Lily UA PROTEIN Negative Normal NEGATIVE/ TRACE [facility] Comment on above: Performed By: #### E RUR #### [facility] [address] [place], [place] [phone] Nelida Bautista UR MICRO IND NOT INDICATED Normal [facility] Comment on above: Performed By: #### E RUR #### [facility] [address] [place], [place] [id number] Nelida Bautista Urobilinogen Qn (U) 0.2 {Jose Carlos'U}/dL Normal 0.2 - 1. 0 [facility] Comment on above: Performed By: #### E RUR #### [facility] [address] [place], [place] [id number] Nelida Bautista POINT OF CARE GLUCOSEon 01-27 Glucose [Mass/Vol] 95 mg/dL Normal 74-106 The [facility] Comment on above: Performed By: #### P OCGLUC #### [facility] [address] [place], [place] [id number] Nelida Bautista PREG HCG QUALon 02-23-2021 , QUAL Negative Normal NEGATIVE [facility] Comment on above: Performed By: #### P REG #### [facility] [address] [place] [address] Nelida Bautista PROF 14(COMP METB)on 021 Albumin [Mass/Vol] 3.6 g/dL Normal 3.5-5.0 [facility] Comment on above: Performed By: #### T HAYDE CMADM, CMP #### [facility] [address] [place], [place] [id number] Nelida Bautista Albumin/Globulin [Mass ratio] 0.9 {ratio} Normal [facility] Comment on above: Performed By: #### T HAYDE CMADM, CMP #### [facility] [address] [place], [place] [id number] Nelida Lily ALP [Catalytic activity/Vol] 103 U/L Normal 38-126 [facility] Comment on above: Performed By: #### T HAYDE CMADM, CMP #### [facility] [address] [place], [place] [id number] Nelida Lily ALT [Catalytic activity/Vol] 35 U/L Normal 9-52 [facility] Comment on above: Performed By: #### T HAYDE CMADM, CMP #### [facility] [address] [address] Nelida Lily Anion gap [Moles/Vol] 13.3 mmol/L Normal [facility] Comment on above: Performed By: #### T HAYDE CMADM, CMP #### [facility] [address] [place] [address] Nelida Lily AST [Catalytic activity/Vol] 28 U/L Normal 14-36 [facility] Comment on above: Performed By: #### T HAYDE CMADM, CMP #### [facility] [address] [place] [address] Nelida Lily Bilirubin [Mass/Vol] 0.2 mg/dL Normal 0.2-1.3 [facility] Comment on above: Performed By: #### T HAYDE CMADM, CMP #### [facility] [address] [place] [address] Nelida Lily Calcium [Mass/Vol] 9.0 mg/dL Normal 8.4-10.2 [facility] Comment on above: Performed By: #### T HAYDE CMADM, CMP #### [facility] [address] [place] [address] Nelida Lily Chloride [Moles/Vol] 108 mmol/L Critically high 98-107 [facility] Comment on above: Performed By: #### T HAYDE CMADM, CMP #### [facility] [address] [place] [address] Nelida Lily CO2 [Moles/Vol] 25.8 mmol/L Normal 22.0-30.[address] [facility] Comment on above: Performed By: #### T HAYDE CMADM, CMP #### [facility] [address] [place] [address] Nelida Lily Creatinine [Mass/Vol] 1.00 mg/dL Normal 0.52-1.04 [facility] Comment on above: Performed By: #### T HAYDE CMADM, CMP #### [facility] [address] [place], [place] [phone] Nelida Lily EGFR-AF BURKINAN >60 Normal >=[address] [facility] Comment on above: Performed By: #### T HAYDE, CMADM, CMP #### [facility] [address] [place] [address] Nelida Lily EGFR-NON AF BURKINAN >60 Normal >=60 [facility] Comment on above: Performed By: #### T HAYDE, CMADM, CMP #### [facility] [address] [id number] Nelida Lily Globulin (S) [Mass/Vol] 4.2 g/dL Normal [facility] Comment on above: Performed By: #### T HAYDE CMADM, CMP #### [facility] [address] [place] [address] Nelida Lily Glucose [Mass/Vol] 95 mg/dL Normal 74-106 [facility] Comment on above: Performed By: #### T HAYDE CMADM, CMP #### [facility] [address] [place] [address] Nelida Lily Potassium [Moles/Vol] 4.1 mmol/L Normal 3.4-5.0 [facility] Comment on above: Performed By: #### T HAYDE CMAEJ, CMP #### [facility] [address] [place] [address] Nelida Lily Protein [Mass/Vol] 7.8 g/dL Normal 6.1-8.2 [facility] Comment on above: Performed By: #### T HAYDE CMADM, CMP #### [facility] [address] [place] [address] Nelida Lily Sodium [Moles/Vol] 143 mmol/L Normal 137-145 [facility] Comment on above: Performed By: #### T HAYDE CMADM, CMP #### [facility] [address] [place] [address] Nelida Lily Urea nitrogen [Mass/Vol] 10.0 mg/dL Normal 7.0-17.0 [facility] Comment on above: Performed By: #### T HAYDE, CMADM, CMP #### [facility] [address] [place] [address] Nelida Lily Urea nitrogen/Creatinine [Mass ratio] 10.0 mg/mg Normal [facility] Comment on above: Performed By: #### T JOÃO LOCK, CMP #### [facility] [address] [address] Nelida Bautista TSHon 02-23-2021 TSH 1.157 uIU/mL Normal 0.470-4.680 [facility] Comment on above: Performed By: #### T JOÃO LOCK, CMP #### [facility] [address] [address] Nelida Bautista TSH RANGE SEE BELOW Normal [facility] Comment on above: Result Comment: <0.3 4 UIU/ml HYPERTHYROID 0.34-5.60 UIU/ml EUTHYROID >5.60 UIU/ml HYPOTHYROID Performed By: #### T JOÃO LOCK CMP #### [facility] [address] [address] Nelida Bautista XR CHEST 1 Von 02-23-2021 [...] by: JANESSA SKINNER Date: 2021-02-23 13:53 Normal [facility] Encounters Encounter Date Encounter Type Care Provider Facility Start: 01-14-2024 End: 01-14-2024 ambulatory MARYANN ZACKERY Not Available Start: 12-30-2023 End: 12-30-2023 ambulatory MARYANN ZACKERY Not Available Start: 12-16-2023 End: 12-16-2023 ambulatory SHAWNA RICHTER Not Available Start: 11-18-2023 End: 11-18-2023 ambulatory MARYANN ZACKERY Not Available Start: 10-21-2023 End: 10-21-2023 ambulatory SHAWNA RICHTER Not Available Start: 09-23-2023 End: 09-23-2023 ambulatory MARYANN MITCHELLO Not Available Start: 08-22-2023 End: 08-22-2023 ambulatory MARYANN ZACKERY Not Available Start: 12-22-2021 End: 12-22-2021 ambulatory JARVIS RODRIGUEZ [facility] Start: 02-23-2021 End: 02-23-[address] [facility] Facility: Payers Date Payer Category Payer Unknown [id number] 1985 Unknown [id number] 2.16.84 [id number] 1985 Unknown [id number] 2.16.84 [id number] 1985 Unknown [id number] 2.16.84 [id number] 1987 Unknown [id number] 2.16.84 [id number] 1987 Unknown [id number] 2.16.84 [id number] 1987 Unknown [id number] 2.16.84 [id number] 1987 Unknown [id number] 2.16.84 [id number] 1987 Unknown [id number] 2.16.84 [id number] 1959 Unknown [id number] Summary Purpose Family History No Family History Records FoundNo Family History Records FoundNo Family History Records FoundNo Family History Records Found Advance Directives No Advanced Directives Records FoundNo Advanced Directives Records FoundNo Advanced Directives Records FoundNo Advanced Directives Records Found Additional Source Comments INFORMATION SOURCE (unrecogn ized section and content) DATE CREATED AUTHOR 02/28/2021 [facility] DATE CREATED AUTHOR AUTHOR'S ORGANIZ ATION 12/24/2021 [facility] DATE CREATED AUTHOR AUTHOR'S ORGANIZ ATION 01/01/2022 [facility] DATE CREATED AUTHOR AUTHOR'S ANI CUEVA 01/16/2024 [facility] FOR RECORDS PERTAINING TO PATIENTS WHO [...] BE BASED ON THE PRIMARY CLINICAL RECORDS. [facility] [facility]. provides no warranty or guarantee of the accuracy or completeness of information in this document.
[2024-01-16 08:04] VITALS: BP 117/72; PULSE 104
== END 2024-01-16 09:20 | disposition home or self-care (01) ==
LOC: FBCO 07:14 → FBC 07:58
PROVIDERS: Visit Provider Obstetrics & Gynecology
DX: O24.419 Gestational diabetes mellitus in pregnancy, unspecified control (principal)
CPT/HCPCS: 59025

== ENCOUNTER 2024-01-20 06:58 | Outpatient (OUT) | payer BC, SELFPAY ==
--- NOTE | 2024-01-20 | US_ITS ---
[address] [address] Patient Name: LOCO HICKS MRN: [id number] date: 1985 Sex: F Assigned Patient Location: US Current Patient Location: Accession/Order Number: [id number] Exam Date: 01/20/2024 10:45 Report Date: 01/20/2024 11:27 At the request of: MARYANN VIZCARRA Procedure: US OB BPP w non-stress EXAMINATION: US OB BPP w non-stress HISTORY: Gestational diabetes mellitus O24.419 COMPARISON: No relevant comparison available. TECHNIQUE: Ultrasound biophysical profile was performed in the radiology department. FINDINGS: BREATHING MOVEMENTS: 2 GROSS BODY MOVEMENTS: 2 TONE: 2 QUALITATIVE AMNIOTIC FLUID VOLUME: 2 PRESENTATION: CEPHALIC HEART RATE: 153.41 bpm AMNIOTIC FLUID VOLUME: 14.4 cm GESTATIONAL AGE: 33 weeks 2 days US/US OB BPP w non-stress IMPRESSION: Total biophysical profile score: 8 Electronically authenticated by: CADEN COX Date: 01/20/2024 11:27
--- OUTSIDE RECORDS SUMMARY | 2024-01-20 07:01 | XMS_ITS | CCD ---
Author Organization [facility] Care Team Providers Care Warehouse Driver Name Role Phone HAMZAH, DR OLSON Primary [...] Coding Summaryon 12-31-2021 Coding Summary HTMLBase 64 YcjnttweCHu9zAa+PGhl YWQ+GL8KIHBcR66imKRe tO6HV1lJMY2ZTTRLVUQQ DH0BFI5sxCE5REmiU7Ed biAv ObeqhKDaAS10RUu5MMI4 aAanSVfojJ6waKZqG2w0 NhVrIW29hG29KBrlXFWe OuT3WyAgbynlvIAl L7krNbUnwIIiPcu+PHRh YmxlIHdpZHRoPScxMDAl HvFmvRfmJP3wLr0yWKYg LWNvbGxhcHNlOiBj c4txRLUmEQjjCU2igKxt J7HatVD0DANkq7z1Bk07 dHI+VITqHTW7oVkcZMdd i376TzEqv1jsTYI5 nEQnFXwwKJL8I23af1P8 DASsZSKlRUQ7aOI1rF5n rBbbihhfU1PfrIFoBuY2 NCV6eHMnhE0iaLbh fpbodE2tDpq+X65YIM4P DLQRSB2MSqx6U1PdUhkv dHI+VM33EYWfZS60tIZo kQPwo8dtmMb4SwFe EFSrYUO2gAnbUCmof6Pr RGRjQ75eoXDfg4W3DKTa rMyahXKiTnDctAL7vM7i ASgyfhxin9auuddc Azftd4vvbd92bF43K57l CVsfINMbKQH2OUPsTUEo hGggxm0jtN7rLi0+IDxj b6wjo2isxVe3ZrCg ERZuhdPuwDjaEDT4o7Fz Lh48L3GczPqqr1AqGjd2 gs08pIPiv8H6fCK5FIba RAGseZ0aRYvdUzT7 TCQwBaSxvA54hLVbSNes En7lnMvxtUboEW6tAIMb xmioLONcwZ2aZLQnoNKt eUcxGK9xILPhftyn t090TzKaDLP0DQVozABg I2NccK6fQoRoTRJvNZRu V5KxgOCtDYmxE898BGsx EpC1GSCmhlVrR3Xz IQGheDmzKbQ8o7Q5Nv8Z p1LnvyeyJIA1FXvbAIW5 MoS4KfZiYkG1W1YaYus5 JUEfkUolWJ6iU2Cs WQIzsmakxpgofNZ0AUCq KUSoeM10yVGuPFqpCi3c x6M9k978NBVeOZAmjD32 Uh8bkSywLUMiuYFE aG7omrsuq2fulbakGrLf EACvNXf4DNp3NDNipVre BrKmGPG6CpR0HUA8bAAn vX5yrMlzpdhfdM2f Oyc+L95suK9uQJH0QJO3 dakoMKGzobXbPF31SC41 N3HlItkwzZMpqAJ+PGRp icZupHucJM3tRwUe t7dpb3XeTXtgY0OkRGVz MFjuFxf2QMAwBLV6bVU5 uF9cNPFwAVame9N1qHO2 R8RmmtCgwi4wm7ms ERGsYKrtM70crDVnl8F9 ZLTwnYQ7JIVtoDwbNoTe sZ58Lge+TVGwrWldd2Rz Tzeot3fql1gywFw4 IjMwJSIgdmFsaWduPSJ0 a8HbNa80Y89cCUvcVJRv QTMuPNGpGTQvcQxbca5s rX3iSp2+PGNvbCB3 iWE1jS7iGDWhJdI3UIqo V929WpDzeTIaSlmwr5un z5tacJq1TxKrHYNzrzNj yHbjTJD5n6ZuLj71 G12tVDuuRPOpBHEnXZCk UJTbbFqhxv8bcC6gAq8+ RA4uh6vwev73sP13vHN+ ZIHySZI2sLzsSVmn IHOneC6iCVqkVmK7FVEd LlMkaY99bQEjXKszWg7y nEvnhRnhRQ3gVARpzrxn u344TuVji7weQESb iPLsHMgyNQN2P88fh7V0 JUXbZGAjTPN9mYS5iB7c bGlnbjogbGVmdDsgdmVy sZpjGDsyYZpfD270 IHRvcDsnPlBhdGllbnQg XeKlKNf5Z0FdExq0NCZp oAwxBA4zzKSoXLyuNk0o eEhvpSwnFZ3yMUOe rcjwn513WqMly4twGAYv oPCxINkyCSC3O46yc4J5 JJZeFVSvAIF9qNC5bT4c bGlnbjogbGVmdDsg dhHquNgyVSgcOTtaV164 IHRvcDsnPkJpcnRoIERh xFK7AI02AN85tVRgb8C2 tHC4E0EdSEBjnpnf ettibIU6UKZjDIUfoC57 Nd3fzJqjPo2yGDWuDDD4 YDOtmYHxA0CboF7yPuLr OFMaAIAtZ8ZsyCRa NKqkT524TRdfGwP5SCOu fkIwL9HnXRCqvKwrKoO2 i3Q0Eu4BC0J5KY70TT89 iJByj2B7lDE5L2Bo FPVzyehoptbenHG2GZPj AAYyxF34Zf1yiWwnTn8f DZNxIZD8AIPayYPbK7Lm mG2qBtSdKHKwCQCg C4KjqAMoVDqxZ009UWif ChN4OYPdflFqG2YjAWNx sFiwUhS4k8D8Ml7TXHf9 VD26DY38nOJww5Y0 nXD3Z6RxXLWezkqtcmrx zYG9LCGxRBUinO90Lr7c bTkjQd3nHPJuPRW9PPWe pLWhG1KntZ0pKqLw FCUlXBPbI9FxqFUiBYou L535BXwqLnR8TNEefrNk W1YeRDMndVldLvY5e8G3 Zc9CJDOqXL37TYS1 iRZ6SA92ZX67A0RcLups dGFibGU+PHRhYmxlIHdp ZHRoPScxMDAlJyBzdHls IY1qQe0dJKZqOVKu bFateAUdMzXai5ggBKFf SPxnUP8tsHfgT5GrbXQ8 MOUnn2s3Bv40V22kR1Le dXA+SYYtqVA5oDC0 rI2sNhQaCsS2EOekZ051 XzZlgNZfBqjrv3xfu4iw aJd4OqD3KUUyxzKfiUxq EUU6t1TwGl34E03o IHdpZHRoPSIxNSUiIHZh lKvkaz9kvG5kRq1+PGNv qSW7oVJ9hV1sSfYiFfE6 OWqxX965UqUtvYRk Ohrse5kug8vrwBm0WuBl IWDwhoYexPbhGHX9h5Un Lm49V7LhgFnvj2YuOpb8 qs99xJIeu6O6aNP7 M1DaSPOfakvwyQSysFtn FD0oZHCqdlhgZONryR3u FVXcZ7s9BtWsPeX0EEdq Q1CkpvU9EOAeyYUq XXwtXHP2W13hz4G0NJSl SXYhXFK1rJB3hZ4mjVnj bjogbGVmdDsgdmVydGlj VNvjWZgoX019BKSm eKkpUYAedM8hUMOxaUJd aEbmTS4dGKJumozgMvlQ HOHBJDEZUAUPBvDQXG73 FE94iQSxi4Y6sTJ3 J1KoZMWmfnmnurdenBE2 LETzTGWkcA42jAPwPSxf Se7kw9H4i305KBKxKMKg aQ75Ph3dxAxqACTm gMGOoI6xywnqs2ierjkp DsRvPFOeWWn0MKl1KBFa yMacZyBgUTL0TyE0GYC9 mRDboZ0uvBolfsap vV1oFxl+MDEvMDgvMTk4 ODwvdGQ+VEDfVYV8aOxk SJgjLHFrpE3aFOBiR0s0 WhOxKnH1UFynO8Do NHQsedgnLu16lJ6qRsBm ZrO5VSgrM3MoosY5VXCn aDDoWMpcSAW3K20vk7X2 OMIiJABvAUW9uZT7 iW2weHfpvhigjKMchVhe bbMhwOqgLLqmSKuvV564 XTNezFnqEsQ5JLpaKTCn ZR37MM90qLDlv2G7 cWV5Z7AuCTVhbfeivzfw mNK4ERKzQFKahS30iCXh CShyDf0il8V1a331VORr EPPcdU24Wx1naIlg YPFvyALCvD6vanoat5ga yswhEiOnFBYlQLm8IQl7 KFQamFjkTlKyQDF9MbI3 MQU4rJPvzB7saPjb fgsttA3qBvd+RkVNQUxF PW46JS89aJUwq3H9nKY1 W1BrPGGoxhzfvwwrfOE9 CBJcTOJipD34hKLt HZcaEa4nk5J5w712DKPa SHIprB62Xj4xgZsoYZNw qWAWeU7dlzhgd6yabhig MhAkEPPcLAe8QHq9 OJQtnAvlRpJfDVX5LoI8 EIH4wJIogS9acGpqrshb fF4dDwd+I8H3I0MeGepw dHI+OZ46FZGqHB08 zKAlwVBij9mesSq8PkJs JQRqGDG5aIbgFNkef3Hk BOAkM57rfOWbo5C9GFFp bGxhcHNlOyBlbXB0 gH8bEJwpfskun5dxsmda Zdrjw2buvm92fX15H70e IHdpZHRoPSIzMCUiIHZh jZxubd8opO8pQc5+ RTCvsAQ0aCD4dR9zIdEo OaK0ZKitB428FpVsgHHo Nvlbt9fhl7fedZi9IxTm JSIgdmFsaWduPSJ0 k4BhZp15U22wMAjuBSWh XEUkBHFqUHKeuDplcr3r vH1sKe2+IC5dz0mdpl68 qT81sUE+PHRkIHN0 lRkpNNnfAVOgyB0uXSdi WfG8MXKwGiMpqS95kXHt NNkyZf7ucJzwmSdbXH1k OJPpzuwuv223QjLy q0wcXUZyxHXnBIplWKC2 Z11wp3M1JUXeWXAeIDU7 yMB5uG1fjAlcwguxwVWn dDsgdmVydGljYWwt LFcuT344ROMwaHoeEqNd sVTcQ1fomcCTJD9dTqei dGQ+UUZwCNA7eZgmDMim LGUzbK7wRMGiG1f9 BxJqVyI0UJatS6OjxpT9 UZTyfMPwSESovFXCyV6z vzcxt9yjhsigIeSiWAIc JOh6NIc2VHAcpYuv DcBxHGP6KmI6UKU7qISu fX2bjPsejemllA4lKia+ RklOOjwvdGQ+PHRkIHN0 vRnqGWffEVTsiT5y NYTlY5n9IfNuOoI4SAqg K6BcuvQ8FGEfdQYzPLBq gUJNyZ6unledz8lgfssq SePtZKDsFJb5RKv4 DFUlnNlgSxPeZWU6WtJ2 MSW6fFHqkE5diPenkhcl sQ6bYqe+TVJOOjwvdGQ+ LPFsZHE4zCkdXXkb AXAgyJ2kPWZbB2i0KbAd QfU3JPcyQ2WiwrW2RGOf rEFsLZCtnLSGtG2tirmm j6ixclfaZjRoSUUp ILc3GOw4GXSwhIsiEmAs EEB0PjK1JRP2kBOavD2o wQmxvwvrdM0xMkx+UGF5 NUY2XS35ZO15T7Mm PjwvdGFibGU+PHRhYmxl IHdpZHRoPScxMDAlJyBz cJzpVR8aAs7dMSPbVWHv qCnxjDUqBnPfu9pr YXB (more content not included)... [facility] Coding Summary HTMLBase 64 YylsfrpkKAb0cBo+PGhl YWQ+MI2HFXWjX29owNRo fQ6QC6aIRX8GHLMRKMCK MO4VCE5ceJM5KZxeD6Ub biAv GjavfMLgAE03RHm6VSC2 yMvtNJcqtX0jmARrQ7z0 VpWcYH51nQ79DKpqJRBp DgO7NfFefppsoPLz M6xsPcOvoHNlOnu+PHRh YmxlIHdpZHRoPScxMDAl DxOarWsvZY3rVz8nIGPr LWNvbGxhcHNlOiBj p5xySLHrDHzjQQ7ilRgc K3TowRV7PXVbt3m4Ps12 dHI+JGAiCWF4vLwwCIwv i886ArPyf7uzOOJ6 iANdEKwmOJD7D16hr2S0 IOZaORQnAZT1qJY0qU6a tStyqablZ6GneFUuGfP9 VCM8iMLszS0lbBax gumieD8bHwo+V01HZU0D BIWNOC0HQsn0R5VzUogm dHI+CM93AVLgUA47gLLf kHYld7fvoDx8MlWe HVDaXPI8zPuiQFele5Hz RUOlU52hdNSfy7R1VESg wWhafEZyUmIgtYU8jO8i IZgimhvoc2kddutj Mglur2ttuk55kZ50A90c YZahIACuHVS0YJAnVIFp fQyixd7tgX6tVa7+IDxj q6wml6tzmSp6MqWh CTEzbjMxsTggLVW2h1Pk Aq21D6VtaLkej9XzMwg4 bh13rIEui3H2wQX5BTvg WAQpuB4jNShsZiG5 YPXtZeVwjU82sPPrOCqy Ej7maCilqJqeIG1vNRLf ranjKKAtsB9fCVMljPUb oOpwRC1rULBaepdg z449MtTbXPZ6CUQwiKSf J9JwgE8sZmDgBVQlFLNi W8HovVPeTNwxJ339RRfr PyG6EBFmhrUfH7Sw MKBukPsyZiP9r8B7Ik9V z8BoqineOYR8TIroTFS8 HzK1DtPqFbN5X6HzTom8 VQIwuItkEZ4eG6Xb SXFjfprxvlhvwKC9SPNj XKJlpG04qGJtACuzZl2m a8X2m339OCCrDCEbuV16 Zg9npPjiVZMzsCBJ hK5ufuigu2sdokjrEoOa QCOvRMs6RGu8WBLqkWmw TqCqPNC9FtE5VZH4gIHd bB2wwXihrobvyM2p Oyc+B37zhS5dNPR3GWK8 xndqLRLzmmLlNA97UT20 B0HdOhwokRWzqXF+PGRp gqZofKcrPD1yLuJp h6qmq3RzVZlnW2UbQLUv LSmfWla4EHXhBUD6fQN7 vG8xASFhJVpcc9U6dFP7 L6UkmgAgnm3dw8nk MZLrCXreV28ibRMve2C9 MPTpcVR1OHQprNtrKwPe pA30Plz+REMrrWdyv7Sn Cdoeo7irr3ojyLw0 IjMwJSIgdmFsaWduPSJ0 e2MwHj54P52wGYbyNMYj QXJrBDJsXPUbkZoirj2d rU7zAg5+PGNvbCB3 yPV4zW3bUVWmOvV8XEql T380HkMzsJPjDmahb1ks r9aytVv7MjYhJIAtihTc yQruAGN2y0DhRo72 W61kZJgxNFNtJDNxOVZf VJPsvUuqns6ezK9iBk4+ JO1uq8pgzy79tJ08fKI+ VXSnTJJ3sMspGQft BBGltQ1aHDgwRnT7ZNIw JoAprV53oGCuWHhmFw0h fYujaXmcGB8cPVJdtqeu y981HdElc3vdDECa cNOpREvvFFY9R39gl8F1 JOJzNUXsHEN3cPW7aW0p bGlnbjogbGVmdDsgdmVy xUzvNZeeBBffY563 IHRvcDsnPlBhdGllbnQg GoUlWAf6J5TcTbv8TJRa ePvdDZ3muECeUMerGm5u eCquqFnnFF4hJBYe aprsl808MaIja5uyOYDf aYMzDGkhHGF7B88ey5R8 RRIvTRWtBFH9kBZ0aM5b bGlnbjogbGVmdDsg myTnqTbhUBzdJEscO226 IHRvcDsnPkJpcnRoIERh sIY6ZK76AV72vRBuf8G9 aBX3F7LzCLPyomfo pgwhlBN7QDDfXWIidN36 Vl6slPwuTa4yZIWzKHC9 FVVbkFNrX2BccF1yNsNy URIdWYMlS4RbqFZp ODrhI569XGobEiW6BCRy gxGsA7KuSTShgAyoNyT3 o6K3Gv9KL4J6XR67BX50 lUWib8L3mVT1H0Os KJLdlnnjfryfmQG1SCEf WLAsnK37Vk1giGoiFr9b BGXiLXF6RMNooJRsQ4Ek oL6yQwBfZLFpFVYt M3UanYYhGHrfP250GChn VvB2LEQsaqOlU0YdDSWi tPmrOtE5a2N8Xc9KCPc2 PI08OK05dCBye3Q2 kBZ7E7JqMWAzjnfpbhsq kJB4EGNwPBEidZ96Cv3u aUkzHd0iNXElHMR2TEOq eCMjQ8OewP2cFwLp TZFaNTFhR4ZoiBQbVNwq B604JGyxFpA8PWHyqlWd N2MkRFDaxPczChK6c0Q5 Ph5FDZOfKC81UVO4 tFF6GQ54CU63O9UcKlan dGFibGU+PHRhYmxlIHdp ZHRoPScxMDAlJyBzdHls NE1iXd5zQFIiHMGw xGmzuEImZiOiy9gtXLPq QYzoYF3xrXqzV0BpiCC9 XLIud3a4Tm06U43fZ0Qi dXA+PFGmuXG0pVO8 oS2fCvKfGxZ9PNqoT564 SsLgyHYtPilgb3sgl9fm kTd1BbZ8RAEieyUksXda CQB7t0JdNe69F13m IHdpZHRoPSIxNSUiIHZh fMlaii8xhO1zDn1+PGNv uME2kGL6zF2tZtHdPpC3 WFboH870NoGknBVy Wrhct5nbh5mwwLf4LbUk DRCarbAjwZzgGQI2v7Oy Wh47S4OjzEtzk8MvGzr0 ow41fLTpg8D6nGC7 X8JdZNJiachjzCVpuTzc GW3jPJCbemmwUUJiyO6a SDPqE7w4DbFyNvT6GWrb V4ZnyvM3SPWgtZAi MWtuCWX6T91uq4G8YULw YRRfGCC8jZC1kD3fyDdv bjogbGVmdDsgdmVydGlj KPyeBGmbX170ISMc pTydKCRgzS9jLTDmaNTz pJgtLD3jLUVznpnzGfvY SCZYBOAEIYBCVmSIAM30 WR22gFSqd4H5lTJ3 W5WeEUOvlwhevxwbdZE5 VECnIQLskV51aYRwIVhg Bv7uo7N1p948MGRqXHVu sR87Ue7czMwjYGCm rKQDdI0syreyp3duawlh BpMpQWTiQUt7FKa7OVPb nLjxEcVaFCK2OsL9GIQ0 zZAknM6mvIeipsfh mH9cPna+MDEvMDgvMTk4 ODwvdGQ+NNRjQGQ0rMyu NKzvNAVhjA3tXVWyG5g3 McQaMuM8RWodS5Eu IOHtxljtBx47vP5vPsDd FpJ3YEeeS8UlewB6BVOm gGBfJBroBLT3F03jk5L3 GECbDZJiXEP6jOT8 hH1itPgufqyhpYJmzGgd omMxjVlqKLxcRIsrX741 QITlpZkaIzK6YScaSHVv GX78ZT21gVPlv8O3 kCH7A0QdUYPerfseqvtf oWO5VMXcYXNjsT04vYQz XYbgQo5im7Z3k988RJFo JKIqrB58Ci7ufWma NZVcgSXIyD0epoyot1bn iiayUwLbCENgBDt1QYd1 CRGxvFciOaPjRWE0EcE5 LZA2yEHinL8vyDmx vlffuZ9tVrc+RkVNQUxF ID98XZ08lLKjq7A3jYK5 L0YbMELmvfzbigisyZH7 ESRdRTYldD59iCXq ENrcXt4ln1U6k026CALs KKTydT68Pv1fhUfhNMDq dYOMjO0bajxwy2zqxrzx WnWhBWKuIDb7ADs6 TYSkzUlpNwMyPDO6NgE0 DVF0wIPzyI9moHnmmfcw zS1xEfv+LU8fzlyzqsS3 RV82LR09J6AvJejk dGFibGU+PHRhYmxlIHdp ZHRoPScxMDAlJyBzdHls HG0iIf1eUSOxYFVppViy aGXjEyVij5swNGUy LHehXA1ocRloE4OamZD8 EWHen4l0Cw22Q99tK3Yy dXA+GDXzjVC6lSS8dT4e KqQgNoU4AYzaO119 LiAzcOZrBdcpm4dus5vv dHr1CbBiSMTumoUttCiq VUP2v2NvVx50A61eOPbt ZHRoPSIyMCUiIHZh nWsafj8ynP0fYx1+PGNv cAX0fYI2tJ4hBuDsWfC0 DKtrI328ThCctIZyFvgf I57qN5SdvTY+PHRy Czg2AXSxhMtoZW4jbDTn ZTwoHh0mNRO4NoPzOpOe OBaoJ5NtDXXnoaxlmwae oQH6MXDkJCWnhL86 Ku3zeVlgYs7lACMjTYH8 ZLRwpGMeY4VtwV1sNdOj YUXkWSOuQ9YdxERzTRwm K746BEloOaE2NKKn utBkD6EeRMVvlCzuMsU3 x5O7Nj8ZeRsmqVCyWR9i LaCsZOn6U9FxHmm6BMDa oTgnVN6itKGwVOcd Gv7elJdcpQygKM8iHLOz clhbn145OjHtg5zwRHHz mNTvABkaAHA6P64jg2A1 LZBfQUCjWYI2zZG7 wH3kdSruotairOPgnItl gqSpiAchGYgjFPbhD716 FPHwmEubKlVJCbm9S5Gj Wvn9PLOarWtwFE6o rSPhQUnjDo9djPmugJwz KW0bZYRzopqex525ZdTj q8olYLQdeUYsLTjqIKW5 Y77ll2J0GXIfGSUw SMC5yJP8pC2ekMhxdcjk bGVmdDsgdmVydGljYWwt ABnlJ508VBFydYxwZc6A Nfb3O6XrXjg4RFSq kHnlBD3dvVBjCJezEz9y hTibgDjqLD1oBQKlyljd f885MeGze8mhZMJugSLw VTttRVY4E61vj0R0 MTTqNSPbSUM0rJE1tC8e bGlnbjogbGVmdDsgdmVy eAbwVOtnCXrfB460AULz cDsnPlBheWVyOjwv dGQ+HU66ro18H1WpMcbp Lxc0PHZnWTP8pKO5lS0z QTEuSVyff3W2lLS7L6Oe zlJysw7wh8rtPKLk ZTo (more content not included)... [facility] Ambulance Noteon 12-26-2021 Ambulance Note [id number] [email or web address] [facility] ED Clinical Summaryon 2021 ED Clinical Summary [facility] - Emergency Department [address] [place], [place] [id number] ED Clinical Summary PERSON INFORMATION Name: LOCO HICKS Age: 36 Years Sex: FEMALE : 1985 MRN: Acct#: Visit Reason: Dizziness; FACIAL NUMBNESS, DIZZINESS Arrival: 12/21/2021 18:23:41 Discharge: 12/22/2021 00:02:00 LOS: 000 05:39 Check In: 12/21/2021 18:23:41 Checkout:12/22/2021 00:02:00 Address: [address] [place] [id number] PCP: Provider, None PROVIDER INFORMATION Provider Role Assigned Unassigned Alvin Bryan ED Provider 12/21/2021 18:26:52 12/21/2021 18:30:20 Sanjuana Ramirez ASSISTANT FOOD SERVICE DIRECTOR Nurse 12/21/2021 18:29:17 12/21/2021 23:14:12 MARIAJOSE EDEN ED PA 12/21/2021 18:30:25 Kerline Cartagena ASSISTANT FOOD SERVICE DIRECTOR Nurse 12/21/2021 21:46:32 Kerline Merrill RN ED [...] Medication Allergies PHYSICIAN DOCUMENTATION Patient: LOCO HICKS [facility]: [id number] Age: 36 years Sex: FEMALE : 1985 [...] - pharynx pink and moist. NECK: -Supple ([id number]): non-tender. CARD: -Rate and rhythm: Regular -Edema: No -Calf pain: No RESP: -Respiratory effort and chest excursion with respirations: Normal -Breath sounds equal bilaterally: Clear -Wheezes: No -Rales: No BACK: -Signs of pain with movement: No ABD: -Distended: No (more content not included)... Normal [facility] ED Patient Education Noteon 12-22-2021 ED Patient Education Note Education Materials [facility] ED Patient Summaryon 022 ED Patient Summary [facility] - Emergency Department [address] [place] [id number] PATIENT DISCHARGE INSTRUCTIONS Patient Information Name: LOCO HICKS Age: 36 Years Date of : 1985 Reason For Visit: Dizziness; FACIAL NUMBNESS, DIZZINESS Arrival Time: 12/21/2021 18:23:41 Primary Care Physician: Provider, None Attending Physician: Alvin Bryan Comment: Visit Diagnosis: Diagnoses This Visit Dizziness ([id number]) Paresthesias (R20.2) Visual disturbance (H53.9) Prescription Information: [...] [facility] 17/02 Crisis Hotline -Text 4HRGM to [id number]. If you received any narcotics, sedation, or [...] and treatment you received today in the [facility] Emergency Department were for an urgent problem and are not intended as complete care. It is important for you to follow up with a doctor, nurse practitioner, or physician?s metallurgical laboratory assistant for ongoing care. If your symptoms [...] so we can reach you if necessary. [facility] Emergency Department has provided you with a complete list of medications post discharge. Please inform your physician assistant primary care/provider of your visit and for further instruction [...] Disease Control and Prevention March 2014 Normal [facility] MRI BRAIN W WO CONTRASTon [...] Ean Cedillo MD 12/22/21 Final result Normal [facility] MRI CERVICAL SPINE W WO CONT [facility] 12-22-2021 MRI CERVICAL SPINE W WO [...] Ean Cedillo MD 12/22/21 Final result Normal [facility] IFTS-UmH-3lh 12-22-2021 SARS-CoV-2 (COVID-19) RNA SHELBI+probe Ql (Unsp spec) Not detected Normal NOTDET [facility] Comment on above: Result Comment: [...] management decisions. Fact sheet for Healthcare Providers: https://www.fda.gov/media/597189/download Fact sheet for Patients: https://www.fda.gov/media/561389/download Methodology: Isothermal Nucleic Acid Amplification Performed By: #### C OVRB #### [place] [address] [employer] Card Checker: Campbell Simmons MD SARS-CoV-2 (COVID-19) PCRon 12-22-2021 Employed in healthcare? No Invalid Interpretation Code [facility] Comment on above: Performed By: #### 6 [id number] ####[facility] (DEFAULT)[address] [place] [address] Group care resident? No Invalid Interpretation Code [facility] Comment on above: Performed By: #### 6 [id number] ####[facility] (DEFAULT)[address] [place] [address] In ICU? No Invalid Interpretation Code [facility] Comment on above: Performed By: #### 6 [id number] ####[facility] (DEFAULT)[address] [place] [address] status? Not Invalid Interpretation Code [facility] Comment on above: Performed By: #### 6 [id number] ####[facility] (DEFAULT)[address] [place] [address] SARS-CoV-2 (COVID-19) RNA SHELBI+probe Ql (Unsp spec) Not detected Normal Not Detected [facility] Comment on above: Result Comment: Perf ormed by PCR methodology. Performed By: #### 6 [id number] ####[facility] (DEFAULT)[address] [place] [address] SARS-CoV-2 (COVID-19) RNA SHELBI+probe Ql (Unsp spec) No Invalid Interpretation Code [facility] Comment on above: Performed By: #### 6 [id number] ####[facility] (DEFAULT)[address] [place] [address] Symptomatic as defined by CDC? No Invalid Interpretation Code [facility] Comment on above: Performed By: #### 6 [id number] ####[facility] (DEFAULT)[address] [place] [address] Transfer Noteon 12-22-2021 Transfer Note medication list sent with patient, Complete ED chart sent with patient. CD and med list sent w. patient to Hospital [Electronically Signed on: 12/22/2021 00:05 EDT] Nadya Garcia [Verified on: 12/22/2021 00:05 EDT] Nadya Garcia Normal [facility] Transfer Note [id number] #1.00OTGTIFF [facility] Transfer Note [id number] #1.00OTGTIFF [facility] Transfer Note transport called, [facility] called for transport to [facility]. Willie stated will call when back in area from [facility] Trip. [Electronically Signed on: 12/21/2021 22:14 EDT] Nadya Garcia [Verified on: 12/21/2021 22:14 EDT] Nadya Garcia [facility] .Auto Diff 1on 12-21-2021 Auto Smyth % 7 % Normal 1-12 [facility] Comment on above: Performed By: #### 7 621624, [id number], 3558103, 14385559, 2533231, 2535927, 0339315775, 7678769, [id number] ####[facility] (DEFAULT)[address] [place] [address] Baso Abs# 0.0 x10 Normal 0.0-0.2 [facility] Comment on above: Performed By: #### 7 558134, [id number], 5527637, 14724067, 3342402, 5627031, 8703761935, 8997259, [id number] ####[facility] (DEFAULT)[address] [place] [address] Basophils/100 WBC (Bld) 0.4 % Normal 0.2-2.0 [facility] Comment on above: Performed By: #### 7 158646, [id number], 5675549, 64752727, 1794606, 2720778, 6229677501, 8973319, [id number] ####[facility] (DEFAULT)[address] [place] [address] Eos Abs# 0.1 x10 Normal 0.0-0.4 [facility] Comment on above: Performed By: #### 7 312933, [id number], 0800432, 80775330, 6071679, 5442833, 3363607214, 5902300, 2490896626 ####[facility] (DEFAULT)[address] [place] [address] Eosinophils/100 WBC (Bld) 0.7 % Low 0.9-4.0 [facility] Comment on above: Performed By: #### 7 573506, [id number], 7532316, 10373024, 5727730, 9610677, 3964190721, 4282776, 6778810988 ####[facility] (DEFAULT)[address] [place] [address] Lymph Abs# 3.2 x10 High 1.3-2.9 [facility] Comment on above: Performed By: #### 7 961336, 1308332806, 0421671, 04833577, 6020711, 2226434, 7469225116, 5221343, 6541048627 ####[facility] (DEFAULT)[address] [place] [address] Lymphocytes/100 WBC (Bld) 40 % Normal 14-48 [facility] Comment on above: Performed By: #### 7 655603, 8413497815, 5797345, 26941487, 2104269, 7322625, 4432716435, 2487973, 5791614891 ####[facility] (DEFAULT)[address] [place] [address] Smyth Abs# 0.6 x10 Normal 0.0-0.8 [facility] Comment on above: Performed By: #### 7 677322, [id number], 0660075, 00338481, 0632865, 7091555, 6679048351, 5189351, 9978706659 ####[facility] (DEFAULT)[address] [place] [address] Neut Abs# 4.3 x10 Normal 1.5-9.2 [facility] Comment on above: Performed By: #### 7 579804, [id number], 9108061, 10119291, 0456038, 0664014, 3041894051, 4521930, 3340671054 ####[facility] (DEFAULT)[address] [place] [address]12 Neutrophils/100 WBC (Bld) 53 % Normal 44-88 [facility] Comment on above: Performed By: #### 7 338082, 4893659244, 0086904, 14738130, 7346894, 1932156, 6026173007, 6658419, 7273075284 ####[facility] (DEFAULT)[address] [place] [address] CBC w/ Auto Diffon 2 Erythrocyte distribution width (RBC) [Ratio] 14.3 % Normal 11.5-15.0 [facility] Comment on above: Performed By: #### 7 260545, [id number], 9343889, 11675278, 7818768, 4519906, 7555689454, 9470134, 5472925787 ####[facility] (DEFAULT)[address] [place] [address] Hematocrit (Bld) [Volume fraction] 42.3 % High 33.7-40.4 [facility] Comment on above: Performed By: #### 7 552086, 6934995668, 6006914, 74007452, 8381070, 9731636, 7994907300, 6422073, 0273079751 ####[facility] (DEFAULT)[address] [place] [address] 15673 Hemoglobin (Bld) [Mass/Vol] 13.7 g/dL Normal 11.3-15.9 [facility] Comment on above: Performed By: #### 7 383253, 4810210947, 4730804, 90932887, 8428232, 3988115, 3508834874, 9133412, 5459701987 ####[facility] (DEFAULT)[address] [place], [place] [address] Instr WBC 8.2 x10 Invalid Interpretation Code [facility] Comment on above: Performed By: #### 7 742833, 0953139268, 3954625, 73547464, 0976721, 6251986, 7955492644, 0823688, 8638422311 ####[facility] (DEFAULT)[address] [place] [address]194 Man Diff? Auto Normal [facility] Comment on above: Performed By: #### 7 840305, 8759812921, 8597398, 29089350, 6569192, 9011587, 5029856191, 7701896, 1993708902 ####[facility] (DEFAULT)[address] [place] [address] 89790 MCH (RBC) [Entitic mass] 31 pg Normal 24-34 [facility] Comment on above: Performed By: #### 7 359684, 1401519296, 4507515, 95217351, 5062810, 8687637, 0169395512, 4437671, 8205439502 ####[facility] (DEFAULT)[address] [place] [address] 96353 MCHC (RBC) [Mass/Vol] 32 g/dL Normal 26-37 [facility] Comment on above: Performed By: #### 7 404117, 7482623657, 6033334, 80712484, 4359597, 9273521, 7299985508, 8183438, 8603396950 ####[facility] (DEFAULT)[address] [place] [address] 27084 MCV (RBC) [Entitic vol] 96 fL Normal 81-100 [facility] Comment on above: Performed By: #### 7 808978, 4576377618, 6277539, 06455421, 3114738, 7171248, 9544047424, 9875175, 0278534082 ####[facility] (DEFAULT)[address] [place] [address] 31475 Platelet 363 x10 Normal 138-427 [facility] Comment on above: Performed By: #### 7 373206, 3937548223, 3385660, 49112513, 2837752, 6857042, 3522962207, 1130631, 7277995564 ####[facility] (DEFAULT)[address] [place] [address] 48134 Platelet mean volume (Bld) [Entitic vol] 10.2 fL Normal 6.3-10.2 [facility] Comment on above: Performed By: #### 7 243449, 8131287006, 0212291, 91255024, 3340367, 5347082, 9316836003, 3466452, 6836431352 ####[facility] (DEFAULT)[address] [place] [address] RBC 4.42 x10 Normal 3.70-5.30 [facility] Comment on above: Performed By: #### 7 200517, 2672912174, 3372576, 83626845, 2698350, 9617102, 9621631773, 0478677, 2752206275 ####[facility] (DEFAULT)[address] [place] [address] WBC 8.2 x10 Normal 3.5-10.5 [facility] Comment on above: Performed By: #### 7 621129, 7287267595, 3868734, 98568007, 2607055, 6892137, 9331918134, 9519709, 9427094649 ####[facility] (DEFAULT)[address] [place] [address] CMP Standardon 12-21-2021 eGFR Non AA 57 mL/min/1.73m2 Invalid Interpretation Code [facility] Comment on above: Performed By: #### 7 959831, 4710967332, 1634559, 42153761, 2032604, 4889017, 5288431956, 8132316, 8335968037 ####[facility] (DEFAULT)[address] [place] [address] eGFR AA >60 Invalid Interpretation Code [facility] Comment on above: Result Comment: [employer] nathalia Kidney disease could be indicated at eGFRs of less than 60 ml/min/1.73m2. Kidney Failure is indicated at less than 15 ml/min/1.73m2 Performed By: #### 7 981808, 4666999768, 4008331, 41776378, 3692388, 5449908, 9465227737, 5974918, 4207099863 ####[facility] (DEFAULT)[address] [place] [address] Albumin [Mass/Vol] 4.7 g/dL Normal 3.5-5.[address] [facility] Comment on above: Performed By: #### 7 153402, 0318338496, 7273897, 03011266, 1690026, 7156045, 5303599404, 2976082, 0210699314 ####[facility] [facility] (DEFAULT)[address] [place] [address] Albumin/Globulin [Mass ratio] 1.1 {ratio} Low 1.4-2.6 [facility] Comment on above: Performed By: #### 7 522412, [id number], 9076411, 25305002, 3796083, 6084764, 7069840719, 8786068, [id number] ####[facility] (DEFAULT)[address] [place] [address] Alk Phos 99 IU/L High 32-91 [facility] Comment on above: Performed By: #### 7 748815, [id number], 2396886, 66223621, 1204282, 2850775, 9237587113, 2829937, [id number] ####[facility] (DEFAULT)[address] [place] [address] 56547 ALT [Catalytic activity/Vol] 32.0 U/L Normal 14.0-54.0 [facility] Comment on above: Performed By: #### 7 235571, [id number], 0567258, 78613047, 7755714, 4339934, 3138118796, 8941842, 5704914976 ####[facility] (DEFAULT)[address] [place] [address] 36052 Anion gap [Moles/Vol] 23.0 mmol/L High 5.0-19.0 [facility] Comment on above: Performed By: #### 7 563109, [id number], 9002234, 68363961, 7655053, 2300507, 4667034152, 2783069, [id number] ####[facility] (DEFAULT)[address] [place] [address] 32282 AST [Catalytic activity/Vol] 41 U/L Normal 15-41 [facility] Comment on above: Performed By: #### 7 086060, [id number], 5027969, 06413148, 9669213, 5097786, 6794525374, 1684646, [id number] ####[facility] (DEFAULT)[address] [place] [address] 06214 Bili Total 0.4 mg/dL Normal 0.3-1.2 [facility] Comment on above: Performed By: #### 7 714981, [id number], 4081197, 38440699, 1763061, 4107762, 8040145869, 9929335, 1660629253 ####[facility] (DEFAULT)[address] [place] [address] 46974 Calcium [Mass/Vol] 10.2 mg/dL Normal 8.9-10.[address] [facility] Comment on above: Performed By: #### 7 424677, 9596465445, 3787056, 04602679, 2888442, 7333492, 9313699876, 3703750, 4718939123 ####[facility] (DEFAULT)[address] [place] [address] 00831 Chloride [Moles/Vol] 96 mmol/L Low 101-111 [facility] Comment on above: Performed By: #### 7 958323, 8999023251, 7355297, 54770831, 0961347, 3064304, 3543076613, 0169852, 0273368756 ####[facility] (DEFAULT)[address] [place] [address] 29349 CO2 [Moles/Vol] 24 mmol/L Normal 21-32 [facility] Comment on above: Performed By: #### 7 009387, 3485509842, 5542234, 21207989, 5442271, 3519776, 1181702391, 9541898, 7295658568 ####[facility] (DEFAULT)[address] [place] [address] 91284 Creatinine [Mass/Vol] 1.10 mg/dL Normal 0.60-1.30 [facility] Comment on above: Performed By: #### 7 373339, 0703474851, 0536297, 10137456, 5194868, 1372490, 0000787284, 5545301, [id number] ####[facility] (DEFAULT)[address] [place] [address] 77939 Globulin (S) [Mass/Vol] 4.2 g/dL Normal 1.5-4.3 [facility] Comment on above: Performed By: #### 7 237692, 4294942620, 5872244, 55233441, 3213283, 6210226, 3995802554, 6638157, 4910148917 ####[facility] (DEFAULT)[address] [place] [address] 42253 Glucose [Mass/Vol] 97.0 mg/dL Normal 74.0-118.[address] [facility] Comment on above: Performed By: #### 7 645344, 0108125137, 7155584, 83812321, 6701821, 8575543, 7615965844, 0088842, 4639639555 ####[facility] (DEFAULT)[address] [place] [address] 55444 Osmolality 278 mOsm/L Invalid Interpretation Code [facility] Comment on above: Performed By: #### 7 618707, 2113218985, 4616233, 99109696, 8941180, 0781802, 1405235570, 0283636, 0285587472 ####[facility] (DEFAULT)[address] [place] [address] 88264 Potassium [Moles/Vol] 3.5 mmol/L Low 3.6-5.1 [facility] Comment on above: Performed By: #### 7 528484, 3506195134, 8312921, 60269516, 8386151, 5146769, 5626948654, 8820970, 1408424151 ####[facility] (DEFAULT)[address] [place] [address] 21131 Protein [Mass/Vol] 8.9 g/dL High 6.5-8.[address] [facility] Comment on above: Performed By: #### 7 672401, 3493372617, 3042461, 26690866, 6716151, 8520271, 9356559935, 1091887, 6432940461 ####[facility] (DEFAULT)[address] [place] [address] 35916 Sodium [Moles/Vol] 139.0 mmol/L Normal 136.0-144.0 [facility] Comment on above: Performed By: #### 7 695577, 2673083610, 1762466, 18875645, 0130819, 4234874, 1721174485, 1463857, 0958675874 ####[facility] (DEFAULT)[address] [place] [address] 00573 Urea nitrogen [Mass/Vol] 15 mg/dL Normal 8-26 [facility] Comment on above: Performed By: #### 7 377083, 7792975647, 8498782, 28359497, 7006680, 8907611, 4915631163, 9469902, 4358973456 ####[facility] (DEFAULT)[address] [place] [address] 96881 Urea nitrogen/Creatinine [Mass ratio] 14.0 mg/mg Normal 4.6-16.2 [facility] Comment on above: Performed By: #### 7 185015, 3178691267, 0871965, 22207964, 0741582, 1840030, 7216172538, 8763171, 9282571782 ####[facility] (DEFAULT)[address] [place] [address] Head or Brain w/o Contras ton [...] 12/21/21 9:19 pm Technologist: Erwin CHAUDHARI Normal [facility] D-Dimeron 12-21-2021 D-Dimer 0.49 mg/L FEU Normal 0.19-0.50 [facility] Comment on above: Result Comment: [...] Liver cirrhosis ? Performed By: #### 7 371237, 7282395568, 0909087, 35596829, 8712690, 9005905, 8476867619, 9712796, 3486805938 ####[facility] (DEFAULT)[address] [place] [address] ED Note - Otheron 12-21-2021 ED Note - Other Neurology called back from [facility], on phone with Mariajose LLANES [Electronically Signed on: 12/21/2021 21:29 EDT] Nadya Garcia [Verified on: 12/21/2021 21:29 EDT] Nadya Garcia [facility] ED Note - Other paging Neurology through [facility] for consult for Mariajose LLANES [Electronically Signed on: 12/21/2021 21:12 EDT] Nadya Garcia [Verified on: 12/21/2021 21:12 EDT] RadhaNadya [facility] [place] ED Note - Physicianon 2021 ED Note [...] - pharynx pink and moist. NECK: -Supple (wcuc-[id number]): non-tender. CARD: -Rate and rhythm: Regular -Edema: [...] I di (more content not included)... Normal [facility] ED Note-Nursingon 12-21-2021 ED Note-Nursing Neck Band Setter assumed care for pt at 2124. Pt had fluids running at that time. Will continue to give the rest of the liter per VO from MARIO ALBERTO. MARIO ALBERTO also stated that after speaking with neuro, pt is to be transferred to [facility] for MRI and further evaluation. Normal [facility] Ethanol.on 12-21-2021 Ethanol Level 9.0 mg/dL High 0.0-5.0 [facility] Comment on above: Performed By: #### 2 [id number] #### [facility] (DEFAULT) [address] [place] [address] 29166 Extra Clayton 12-21-2021 Tube Collected Yes Invalid Interpretation Code [facility] Comment on above: Performed By: #### 2 954153, [id number] #### [facility] (DEFAULT) [address] [place] [address] 86459 Extra Redon 12-21-2021 Tube Collected Yes Invalid Interpretation Code [facility] Comment on above: Performed By: #### 7 765842, 9365182813, 2497675, 52033434, 0011421, 4552401, 5304295803, 3775127, 4764085334 #### [facility] (DEFAULT) [address] [place] [address] 03502 Magnesiumon 12-21-2021 Magnesium [Mass/Vol] 2.02 mg/dL Normal 1.80-2.50 [facility] Comment on above: Performed By: #### 7 700785, 4486079705, 0037851, 35108617, 4700861, 3148494, 4147926740, 1218450, 3209062853 ####[facility] (DEFAULT)[address] [place] [address] 20814 PTon 12-21-2021 INR Coag (PPP) [Relative time] 0.94 {INR} Normal 0.91-1.11 [facility] Comment on above: Performed By: #### 7 514331, 0836288912, 0423434, 83028225, 6569435, 5936202, 0789868489, 2365661, 4978429257 ####[facility] (DEFAULT)[address] [place] [address] PT 10.2 second(s) Normal 9.7-11.8 [facility] Comment on above: Performed By: #### 7 220518, 5052651965, 1704285, 04736429, 7634825, 9092316, 8510223066, 8049324, 2186505214 ####[facility] (DEFAULT)[address] [place] [address] 67016 PTTon 12-21-2021 PTT 26 second(s) Normal 25-35 [facility] Comment on above: Performed By: #### 7 254465, 0654546916, 0998009, 34964354, 6694081, 9787957, 8595550348, 0698684, 8460562574 ####[facility] (DEFAULT)[address] [place] [address] 60753 Test Urine 1 U Preg Negative Normal [facility] Comment on above: Performed By: #### 1 [id number], [id number] ####[facility] (DEFAULT)[address] [place], [place] [address] U Preg Internal Control Pass [facility] Comment on above: Performed By: #### 1 [id number], [id number] ####[facility] (DEFAULT)[address] [place] [address] 10793 Salicylateon 12-21-2021 Salicylate Lvl <4.0 Normal 0.0-30.0 [facility] Comment on above: Result Comment: Sali cylate ranges less than 30 mg/dL are considered to be therapeutic. Levels greater than 30 mg/dL are considered toxic and levels greater than 60 mg/dL may be lethal. Performed By: #### 2 652388, [id number] #### [facility] (DEFAULT) [address] [place] [address] 76625 TnI HSon 12-21-2021 Troponin I High Sensitivity <2 Normal <=15 [facility] Comment on above: Result Comment: Male Baseline Delta 1Hr (Note pg/mL=ng/L) <20pg/mL 50-60% >20pg/mL 20% Female Baseline Delta 1Hr <15pg/mL 50-60% >15pg/mL 20% Other Baseline Delta 1Hr <18ng/mL 50-60% >18ng/mL 20% ([place] [employer] Guidelines February 2018) Performed By: #### 7 797263, 7095905854, 3525612, 39156592, 4820265, 7430486, 7531240540, 3643086, 9233035056 ####[facility] (DEFAULT)[address] [place] [address] 10842 Triage Panel 1212-21-2021 Triage Internal Control Pass [facility] Comment on above: Performed By: #### 1 [id number] ####[facility] (DEFAULT)[address] [place] [address] 18739 U Amph Scr Negative Normal [facility] Comment on above: Performed By: #### 1 [id number] ####[facility] (DEFAULT)[address] [place] [address] 06728 U Vanesa Scr Negative [facility] Comment on above: Performed By: #### 1 [id number] ####[facility] (DEFAULT)[address] [place] [address] 41687 U Benzodia Scr Negative [facility] Comment on above: Performed By: #### 1 [id number] ####[facility] (DEFAULT)[address] [place] [address] 95875 U Cannab Scrn Negative [facility] Comment on above: Performed By: #### 1 [id number] ####[facility] (DEFAULT)[address] [place] [address] 93350 U Cocaine Scr Negative [facility] Comment on above: Performed By: #### 1 [id number] ####[facility] (DEFAULT)[address] [place] [address] 38343 U Methadone Scr Negative [facility] Comment on above: Performed By: #### 1 [id number] ####[facility] (DEFAULT)[address] [place] [address] 66862 U Methamp Scrn Negative [facility] Comment on above: Performed By: #### 1 [id number] ####[facility] (DEFAULT)[address] [place] [address] 80769 U Opiate Scr Negative [facility] Comment on above: Performed By: #### 1 [id number] ####[facility] (DEFAULT)[address] [place] [address] 68514 U Oxycod Scr Negative [facility] Comment on above: Performed By: #### 1 [id number] ####[facility] (DEFAULT)[address] [place] [address] 75595 U Phencyclidine Scr Negative [facility] Comment on above: Performed By: #### 1 [id number] ####[facility] (DEFAULT)[address] [place] [address] 48651 U Propoxyphene Scr Negative [facility] Comment on above: Performed By: #### 1 [id number] ####[facility] (DEFAULT)[address] [place] [address] 13173 U Tricyclic Antidepress Scr Negative [facility] Comment on above: Result Comment: Resu lts [...] PPX Propoxyphene (Norpropoxyphene): 300 ng/mL THC Cannabinoids (96-jbc-6-carboxy- -THC): 50 ng/mL TCA Tricyclic-Antidepressants (Desipramine): 300 ng/mL Performed By: #### 1 [id number] ####[facility] (DEFAULT)[address] [place] [address] Urine Source Clean Catch Normal [facility] Comment on above: Performed By: #### 1 [id number] ####[facility] (DEFAULT)[address] [place] [address] UA w Culture if Ind Standard on 12-21-2021 Color (U) Yellow Normal [facility] Comment on above: Performed By: #### 1 [id number], [id number] ####[facility] (DEFAULT)[address] [place] [address] Culture? Not Indicated Invalid Interpretation Code [facility] Comment on above: Result Comment: Resu lt created by rule GL_MAGR_ADD_UA_CULT1 Performed By: #### 1 [id number], [id number] ####[facility] (DEFAULT)[address] [place] [address] Glucose (U) [Mass/Vol] Negative Normal [facility] Comment on above: Performed By: #### 1 [id number], [id number] ####[facility] (DEFAULT)[address] [place] [address] Ketones Ql (U) Negative Normal [facility] Comment on above: Performed By: #### 1 [id number], [id number] ####[facility] (DEFAULT)[address] [place] [address] 62641 Micro? Not Indicated Invalid Interpretation Code [facility] Comment on above: Result Comment: Resu lt created by rule GL_MAGR_ADD_UA_MICRO Performed By: #### 1 [id number], [id number] ####[facility] (DEFAULT)[address] [place] [address] 12920 UA Bilirubin Negative Normal [facility] Comment on above: Performed By: #### 1 [id number], [id number] ####[facility] (DEFAULT)[address] [place] [address] UA Blood Negative Normal NEGATIVE [facility] Comment on above: Performed By: #### 1 [id number], [id number] ####[facility] (DEFAULT)[address] [place] [address] 60422 UA Clarity CLEAR Normal CLEAR [facility] Comment on above: Performed By: #### 1 [id number], [id number] ####[facility] (DEFAULT)[address] [place] [address] 03773 UA Leuk Est Negative Normal NEGATIVE [facility] Comment on above: Performed By: #### 1 [id number], [id number] ####[facility] (DEFAULT)[address] [place] [address] 95489 UA Nitrite Negative Normal NEGATIVE [facility] Comment on above: Performed By: #### 1 [id number], [id number] ####[facility] (DEFAULT)[address] [place] [address] 44183 UA pH 6.5 Normal 5-8 [facility] Comment on above: Performed By: #### 1 [id number], [id number] ####[facility] (DEFAULT)[address] [place] [address] 82482 UA Protein Negative Normal NEGATIVE [facility] Comment on above: Performed By: #### 1 [id number], [id number] ####[facility] (DEFAULT)[address] [place] [address] 29841 UA Spec Grav <=1.005 Normal 1.001-1.035 [facility] Comment on above: Performed By: #### 1 [id number], [id number] ####[facility] (DEFAULT)[address] [place] [address] 88223 UA Urobilinogen 0.2 mg/dL Normal 0.2-1.0 [facility] Comment on above: Performed By: #### 1 [id number], [id number] ####[facility] (DEFAULT)[address] [place] [address] 43061 Breakpoint UA Normal [facility] Comment on above: Performed By: #### 1 [id number], [id number] ####[facility] (DEFAULT)[address] [place] [address] Urine Source Clean Catch Normal [facility] Comment on above: Performed By: #### 1 [id number], [id number] ####[facility] (DEFAULT)[address] [place] [address] 01431 XR Chest 2 Viewson 2 XR Chest [...] Bowen 12/21/21 9:38 pm Technologist: BARBRA,L Normal [facility] CARDIAC HUMAIRA ADMITon 021 CK [Catalytic activity/Vol] 117 U/L Normal 30-135 [facility] Comment on above: Performed By: #### T SH, CMADM, CMP #### [facility] [address] [id number] Nelida Lily CK.MB [Mass/Vol] 1.16 ng/mL Normal <=2.37 [facility] Comment on above: Performed By: #### T JOÃO LOCK, CMP #### [facility] [address] [address] Nelida Lily HSTROP <4.0 Normal 4.0-35.5 [facility] Comment on above: Result Comment: CUT- OFF POINTS HAVE BEEN ESTABLISHED BASED ON THE FOURTH UNIVERSAL DEFINITIONS OF MYOCARDIAL INFARCTION. THE UPPER REFERENCE LIMIT (URL) OF TROPONIN, DEFINED THE 99TH PERCENTILE OF cTnI DISTRIBUTION IN A REFERENCE POPULATION, HAS BEEN CONFIRMED THE DECISION THRESHOLD FOR HI DIAGNOSIS. Performed By: #### T JOÃO LCOK, CMP #### [facility] [address] [place] [address] Nelida Lily NGA 41.0 ng/mL Normal <=61.5 [facility] Comment on above: Performed By: #### T JOÃO LOCK, CMP #### [facility] [address] [place], [place] [address] Nelida Lily CBC AUTO DIFFon 02-23-2021 BASO # 0.1 103/ul Normal 0.0-0.1 [facility] Comment on above: Performed By: #### C BC #### [facility] [address] [place], [place] [address] Nelida Lily Basophils/100 WBC (Bld) 1.0 % Normal 0.2-2.0 [facility] Comment on above: Performed By: #### C BC #### [facility] [address] [place] [address] Nelida Lily EO # 0.1 103/ul Normal 0.0-0.7 [facility] Comment on above: Performed By: #### C BC #### [facility] [address] [place], [place] [address] Nelida Lily Eosinophils/100 WBC (Bld) 2.2 % Normal 0.9-7.0 [facility] Comment on above: Performed By: #### C BC #### [facility] [address] [place] [address] Nelida Lily Erythrocyte distribution width (RBC) [Ratio] 14.2 % Normal 11.0-15.0 [facility] Comment on above: Performed By: #### C BC #### [facility] [address] [place] [address] Nelida Lily Hematocrit (Bld) [Volume fraction] 40.6 % Normal 36.0-48.0 [facility] Comment on above: Performed By: #### C BC #### [facility] [address] [place] [address] Nelida Lily Hemoglobin (Bld) [Mass/Vol] 13.3 g/dL Normal 12.0-16.0 [facility] Comment on above: Performed By: #### C BC #### [facility] [address] [place] [address] Nelida Lily IG # 0.02 10e3/ul Normal 0.00-0.03 [facility] Comment on above: Performed By: #### C BC #### [facility] [address] [place] [address] Nelida Lily IG % 0.4 % Normal 0.0-0.5 [facility] Comment on above: Performed By: #### C BC #### [facility] [address] [place] [address] Nelida Lily LYMPH # 1.7 103/ul Normal 1.2-3.8 [facility] Comment on above: Performed By: #### C BC #### [facility] [address] [place] [address] Nelida Lily Lymphocytes/100 WBC (Bld) 34.6 % Normal 20.5-60.0 [facility] Comment on above: Performed By: #### C BC #### [facility] [address] [place], [place] [address] Nelida Lily MANUAL DIFF REQ NO Normal [facility] Comment on above: Performed By: #### C BC #### [facility] [address] [place], [place] [address] Nelida Lily MCH (RBC) [Entitic mass] 31.5 pg Normal 26.7-34.0 [facility] Comment on above: Performed By: #### C BC #### [facility] [address] [place] [address] Nelida Bautista MCHC (RBC) [Mass/Vol] 32.8 g/dL Normal 29.9-35.2 [facility] Comment on above: Performed By: #### C BC #### [facility] [address] [address] Nelida Bautista MCV (RBC) [Entitic vol] 96.2 fL Normal 81.0-99.0 [facility] Comment on above: Performed By: #### C BC #### [facility] [address] [place] [address] Nelida Bautista MONO # 0.4 103/ul Normal 0.3-0.8 [facility] Comment on above: Performed By: #### C BC #### [facility] [address] [place] [address] Nelida Bautista Monocytes/100 WBC (Bld) 7.1 % Normal 1.7-12.0 [facility] Comment on above: Performed By: #### C BC #### [facility] [address] [place] [address] Nelida Bautista NEUT # 2.7 103/ul Normal 1.4-6.5 [facility] Comment on above: Performed By: #### C BC #### [facility] [address] [place] [address] Nelida Bautista Neutrophils/100 WBC (Bld) 54.7 % Normal 43.0-75.0 [facility] Comment on above: Performed By: #### C BC #### [facility] [address] [place], [place] [address] Nelidajose Bautista Platelet mean volume (Bld) [Entitic vol] 9.8 fL Normal 9.5-13.5 [facility] Comment on above: Performed By: #### C BC #### [facility] [address] [place], [place] [address] Nelida Lily PLT 320 103/ul Normal 150-450 [facility] Comment on above: Performed By: #### C BC #### [facility] [address] [address] Nelida Bautista RBC 4.22 106/ul Normal 4.20-5.40 [facility] Comment on above: Performed By: #### C BC #### [facility] [address] [address] Nelida Kimbleen WBC 4.9 103/ul Normal 4.0-11.0 [facility] Comment on above: Performed By: #### C BC #### [facility] [address] STROKE HEAD WOon 02-24-20 [...] JANESSA SKINNER Date: 2021-02-23 13:52 Normal [facility] ER URINE PROFILEon Bilirubin Ql (U) Negative Normal NEGATIVE [facility] Comment on above: Performed By: #### E RUR #### [facility] [address] [place] [address] Nelida Bautista Clarity (U) CLEAR Normal CLEAR [facility] Comment on above: Performed By: #### E RUR #### [facility] [address] [place] [address] Nelida Lily Color (U) LT. YELLOW Normal YELLOW [facility] Comment on above: Performed By: #### E RUR #### [facility] [address] [place], [place] [address] Nelida Lily ERUAHD A micrscopic examination will be performed if indicated. Normal [facility] Comment on above: Performed By: #### E RUR #### [facility] [address] [place] [address] Nleida Lily Glucose Ql (U) Negative Normal NEGATIVE [facility] Comment on above: Performed By: #### E RUR #### [facility] [address] [place] [address] Nelida Lily Hemoglobin Ql (U) Negative Normal NEGATIVE [facility] Comment on above: Performed By: #### E RUR #### [facility] [address] [place] [address] Nelida Lily Ketones Ql (U) Negative Normal NEGATIVE [facility] Comment on above: Performed By: #### E RUR #### [facility] [address] [place] [address] Nelida Lily LEUKOCYTES Negative Normal NEGATIVE [facility] Comment on above: Performed By: #### E RUR #### [facility] [address] [place] [address] Nelida Lily Nitrite Ql (U) Negative Normal NEGATIVE [facility] Comment on above: Performed By: #### E RUR #### [facility] [address] [place] [address] Nelida Lily pH (U) 8.0 [pH] Normal 5-9 [facility] Comment on above: Performed By: #### E RUR #### [facility] [address] [place] [address] Nelida Lily SPEC GRAVITY 1.020 Normal 1.005-<=1.025 The [facility] Comment on above: Performed By: #### E RUR #### [facility] [address] [place] [address] Nelida Lily UA PROTEIN Negative Normal NEGATIVE/ TRACE [facility] Comment on above: Performed By: #### E RUR #### [facility] [address] [place], [place] [id number] Nelida Bautista UR MICRO IND NOT INDICATED Normal [facility] Comment on above: Performed By: #### E RUR #### [facility] [address] [place], [place] [id number] Nelida Bautista Urobilinogen Qn (U) 0.2 {Jose Carlos'U}/dL Normal 0.2 - 1. 0 [facility] Comment on above: Performed By: #### E RUR #### [facility] [address] [place], [place] [id number] Nelida Bautista POINT OF CARE GLUCOSEon 01-27 Glucose [Mass/Vol] 95 mg/dL Normal 74-106 [facility] Comment on above: Performed By: #### P OCGLUC #### [facility] [address] [place], [place] [id number] Nelida Bautista PREG HCG QUALon 02-23-2021 , QUAL Negative Normal NEGATIVE [facility] Comment on above: Performed By: #### P REG #### [facility] [address] [place] [address] Nelida Bautista PROF 14(COMP METB)on 021 Albumin [Mass/Vol] 3.6 g/dL Normal 3.5-5.0 [facility] Comment on above: Performed By: #### T HAYDE CMADM, CMP #### [facility] [address] [place], [place] [id number] Nelida Bautista Albumin/Globulin [Mass ratio] 0.9 {ratio} Normal [facility] Comment on above: Performed By: #### T HAYDE CMADM, CMP #### [facility] [address] [place], [place] [id number] Nelida Lily ALP [Catalytic activity/Vol] 103 U/L Normal 38-126 [facility] Comment on above: Performed By: #### T HAYDE CMADM, CMP #### [facility] [address] [place], [place] [id number] Nelida Lily ALT [Catalytic activity/Vol] 35 U/L Normal 9-52 [facility] Comment on above: Performed By: #### T HAYDE CMADM, CMP #### [facility] [address] [address] Nelida Lily Anion gap [Moles/Vol] 13.3 mmol/L Normal [facility] Comment on above: Performed By: #### T HAYDE CMADM, CMP #### [facility] [address] [place] [address] Nelida Lily AST [Catalytic activity/Vol] 28 U/L Normal 14-36 [facility] Comment on above: Performed By: #### T HAYDE CMADM, CMP #### [facility] [address] [place] [address] Nelida Lily Bilirubin [Mass/Vol] 0.2 mg/dL Normal 0.2-1.3 [facility] Comment on above: Performed By: #### T HAYDE CMADM, CMP #### [facility] [address] [place] [address] Nelida Lily Calcium [Mass/Vol] 9.0 mg/dL Normal 8.4-10.2 [facility] Comment on above: Performed By: #### T HAYDE CMADM, CMP #### [facility] [address] [place] [address] Nelida Lily Chloride [Moles/Vol] 108 mmol/L Critically high 98-107 [facility] Comment on above: Performed By: #### T HAYDE CMADM, CMP #### [facility] [address] [place] [address] Nelida Lily CO2 [Moles/Vol] 25.8 mmol/L Normal 22.0-30.0 [facility] Comment on above: Performed By: #### T HAYDE CMADM, CMP #### [facility] [address] [place] [address] Nelida Lily Creatinine [Mass/Vol] 1.00 mg/dL Normal 0.52-1.04 [facility] Comment on above: Performed By: #### T HAYDE CMADM, CMP #### [facility] [address] [place], [place] [id number] Nelida Lily EGFR-AF BOTSWANAN >60 Normal >=60 [facility] Comment on above: Performed By: #### T HAYDE, CMADM, CMP #### [facility] [address] [place] [address] Nelida Lliy EGFR-NON AF BOTSWANAN >60 Normal >=60 [facility] Comment on above: Performed By: #### T HAYDE, CMADM, CMP #### [facility] [address] [id number] Nelida Lily Globulin (S) [Mass/Vol] 4.2 g/dL Normal [facility] Comment on above: Performed By: #### T HAYDE CMADM, CMP #### [facility] [address] [place] [address] Nelida Lily Glucose [Mass/Vol] 95 mg/dL Normal 74-106 [facility] Comment on above: Performed By: #### T HAYDE CMADM, CMP #### [facility] [address] [place] [address] Nelida Lily Potassium [Moles/Vol] 4.1 mmol/L Normal 3.4-5.0 [facility] Comment on above: Performed By: #### T HAYDE CMAEJ, CMP #### [facility] [address] [place] [address] Nelida Lily Protein [Mass/Vol] 7.8 g/dL Normal 6.1-8.2 [facility] Comment on above: Performed By: #### T HAYDE CMADM, CMP #### [facility] [address] [place] [address] Nelida Lily Sodium [Moles/Vol] 143 mmol/L Normal 137-145 [facility] Comment on above: Performed By: #### T HAYDE CMADM, CMP #### [facility] [address] [place] [address] Nelida Lily Urea nitrogen [Mass/Vol] 10.0 mg/dL Normal 7.0-17.0 [facility] Comment on above: Performed By: #### T HAYDE, CMADM, CMP #### [facility] [address] [place] [address] Nelida Lily Urea nitrogen/Creatinine [Mass ratio] 10.0 mg/mg Normal [facility] Comment on above: Performed By: #### T JOÃO LOCK, CMP #### [facility] [address] [address] Nelida Bautista TSHon 02-23-2021 TSH 1.157 uIU/mL Normal 0.470-4.680 [facility] Comment on above: Performed By: #### T JOÃO LOCK, CMP #### [facility] [address] [address] Nelida Bautista TSH RANGE SEE BELOW Normal [facility] Comment on above: Result Comment: <0.3 4 UIU/ml HYPERTHYROID 0.34-5.60 UIU/ml EUTHYROID >5.60 UIU/ml HYPOTHYROID Performed By: #### T JOÃO LOCK CMP #### [facility] [address] [address] Nelida Bautista XR CHEST 1 Von 02-23-2021 [...] by: JANESSA SKINNER Date: 2021-02-23 13:53 Normal [facility] Encounters Encounter Date Encounter Type Care Provider [...] Start: 12-22-2021 End: 12-22-2021 ambulatory JARVIS RODRIGUEZ [facility] Start: 02-23-2021 End: 02-23-[address] OLSON [facility] Facility: Payers Date Payer Category Payer Unknown [id number] 1985 Unknown [id number] 2.16.84 [id number] 1987 Unknown [id number] 2.16.84 [id number] 1987 Unknown [id number] 2.16.84 [id number] 1987 Unknown [id number] 2.16.84 [id number] 1987 Unknown [id number] 2.16.84 [id number] 1987 Unknown [id number] 2.16.84 [id number] 1987 Unknown [id number] 2.16.84 [id number] 1987 Unknown [id number] 2.16.84 [id number] 1959 Unknown [id number] Summary Purpose Family History No Family History Records FoundNo Family History Records FoundNo Family History Records FoundNo Family History Records Found Advance Directives No Advanced Directives Records FoundNo Advanced Directives Records FoundNo Advanced Directives Records FoundNo Advanced Directives Records Found Additional Source Comments INFORMATION SOURCE (unrecogn ized section and content) DATE CREATED AUTHOR 02/28/2021 [facility] DATE CREATED AUTHOR AUTHOR'S ORGANIZ ATION 12/24/2021 [facility] DATE CREATED AUTHOR AUTHOR'S ORGANIZ ATION 01/01/2022 [facility] DATE CREATED AUTHOR AUTHOR'S ANI CUEVA 01/16/2024 [facility] FOR RECORDS [...] BE BASED ON THE PRIMARY CLINICAL RECORDS. [facility] [employer] [facility]. provides no warranty or guarantee of the accuracy or completeness of information in this document.
[2024-01-20 10:10] VITALS: BP 111/74; PULSE 105; TEMP 36.6
== END 2024-01-20 11:15 | disposition home or self-care (01) ==
LOC: US 07:06 → FBC 10:01
PROVIDERS: Visit Provider Obstetrics & Gynecology
DX: O24.419 Gestational diabetes mellitus in pregnancy, unspecified control (principal); Z3A.33 33 weeks gestation of pregnancy
CPT/HCPCS: 76818

== ENCOUNTER 2024-01-23 07:00 | Outpatient (OUT) | payer BC, SELFPAY ==
--- OUTSIDE RECORDS SUMMARY | 2024-01-23 07:03 | XMS_ITS | CCD ---
Author Organization [facility] Care Team Providers Care Fund Development Manager Name Role Phone HAMZAH, DR [...] RICHTER Attending Unavailable MARYANN VIZCARRA Attending Unavailable SAHWNA RICHTER Attending Unavailable MARYANN VIZCARRA Attending Unavailable [...] Coding Summaryon 12-31-2021 Coding Summary HTMLBase 64 WrvcwvvsXPz0yXt+PGhl YWQ+DB2QPEHhL30ltGFq tG5CZ7yZXW1PZDAKZFSN JY6LGA8qvDU4LAilO9Hh biAv UrpstCAyZX27FUt2BOI5 bBotSOhfvC4moCYzI2w1 JdCbKA27gK62HPnnKKUd YuD5StLbgskznRJf Q8liVeCgfQLoPgy+PHRh YmxlIHdpZHRoPScxMDAl DbOiiCcaPI3lTl1xTTHj LWNvbGxhcHNlOiBj h2qqYVUzIJikPF8iwYbc J0FcxJG1KMRsp2w0So52 dHI+JJOaJOB6oZhdKJbd o524UeYfv1ynEBS0 kRArJZisTEE3L01iy5G9 XAVmVTHeUMP9iSJ6vV7w wCkkzaoqF5CjmVPnViV1 FTF3pQYcjS7tsVco qyeilQ1lNpg+D16IVY8T EKCPJQ9PLkh0F8LzTplw dHI+IX25FAJgLT33wDBo rZBve2uanGr0EjBo FVDeBSF3lKndNGrmo3Sr MAJjM22cpLTlp2G0MZEz gRcyoXRnZpSdmWJ4wV0r DGlaaeonh4fdsoxy Rmjuc3gpqs99jZ02A05g QHajTZHlGCN0QRUtPVVz xRmmnt5hiG5xZe0+IDxj s1til6rqcQk6ZfYu GOMuyhMuiLyxYIL9d4Py Fr60F8ExiFipt0NdDij2 sa03lFPql6L1zYE6FWjp JHWmoT4cQHleTqQ6 QJWfJwFwoT68iBZiSOvg Re2diVwaoEjsRU3uTSVh cwboKRMctZ0sWEPdkXHe aEhjZU8tSWRgmbgk h644GyUaUPT5WZTyeHUi N2SikF0kDgYgTFKaEOOa G8KxeXVhZYohW534CLcs PrI2HMJwnzKqM3Uo FTPyhDqlWaI9q9Q7Li9D e5HlrgquMGE7KVfiDEV8 VeN0WzRgGmC2F7LuDmk9 RADpaRqcLZ2xL9Jw URAbeypcfxslrHD4AMKk YPEbrX59dGGvQHvgCo7x x4G6j694LKTqACMkqA87 On2imKceYLGtpJHW bE9nhiyge2rejmpqCyYg UKHaGFx6JJa4QQFkhKvm UrSqYSU6NuT5MFM4fHPx pG6bwPbycnahkU0c Oyc+K78ciV9kIHG7AKR1 ncloSQUrkqTjMW56JD71 J6YlVmdejRPgsZS+PGRp lrJjpPrrQL3fImWe q3joc4NmHAcqT2JfBDTv HBydNly0LEKrWCF0wAB4 hX2zKQCsQGtjp3L8cFT6 A3UripPwms0jd8pn NZCqASmsK83kfFOps8T0 PBDqsXR3UTTdpCebTdZj zK59Lcg+CTLmfDytq3Mo Qotjp2bse2ykhTc3 IjMwJSIgdmFsaWduPSJ0 v4ErCk53B43rCUylSFUh MLUqZZDzNUHdnChvnf0c bR0pTq4+PGNvbCB3 aRW7dX1zSVKmBwW7FJqo L520YrCzlTYoGjfdt0fs z0ahlIb7FpLrWCFfzaEh jVozUSL3g9CyTw77 E25bKNpaUHOlWCUcXIZl PMSarTdvzz5aaG2cYo5+ YA5yn3ytaj00fT28aVD+ STQkEBR9fAqeZAqf UXZrbU6hRBrsCpX6YGFu IcPtlK32bOEqYLcgCn5w tOqizDjtJR1wCWIzyjwn f031HhVaw6toETAe yCPoAYxhQKE8H76rq2Y4 OLJcQDIbXUC5oVD3gW3u bGlnbjogbGVmdDsgdmVy lOqmIUguNAgsB061 IHRvcDsnPlBhdGllbnQg QxNlPFy7Q9PnBwk9MUTb kZopIB7znWMuBWjoPc9p nLinpBixVP0mKTUq psyvo465FeRur4cfDIUz wREnPPnfMQG9O40uv5E4 KQGrBDFvPIU2uWH2uU5f bGlnbjogbGVmdDsg ujQmxFreRBscHOciM298 IHRvcDsnPkJpcnRoIERh zAL2OO62TM25cMXoh5D3 uBP6W0BjMMWgupcb awxihBS5ZHHeUBLkkO91 Pm6veMstCo8jTJRyEQR3 MCFvhZFgV9GigM2kYpEt IRTiLJBsW4NlzRAk WXioL106OCsjWvB6ECUn pxUbY5VrSTBsaGriRuH7 q4E7Kh8LY7U6NM38KG93 yCJqg6P2sTT2U5Ed KXZorrwowfrmrRE0VQJj IRPmjB74Oc0jnFvlLj7b APFaCFI0GSYdsNWcO3Ls qX0hCgKgINBsLSNt R1BmoPXmMOyeX705BNns TaZ0TIBusoVeG8DqTXOm vSjcKcY1t2L7Cd4ZHOi5 HQ28EV75wTLcb9U3 rBC8E0AyNGAbxqxydpmk rAQ6MSNkXUXqoI83Jm5l kAdpJm3rEHVyAAF9DOUo qFHxW2WahD8iDeMz YRWtOPSoK9NvnAQeEHcq K161HJazYvV1QNNeukLs O2WlCXAujAkjUhV9s4T6 Hd8HSDNhXQ56YRL2 zIP9MM59HU54V4JeQvcc dGFibGU+PHRhYmxlIHdp ZHRoPScxMDAlJyBzdHls BM6hHb7fLAKyEXHe kBjmjYZuMyRob8svPYKk MKqvFC5gjHflB9GpoFA5 UDZud4q1Ui92T62kQ9Ho dXA+QIUpzEP6lTR9 uH8zEyKaEnO3ZNhdX716 TkDssVGeGxlnp8quc4hv iAe0RgQ1TNValqGlkNrk VEJ0n7VvXi90F97o IHdpZHRoPSIxNSUiIHZh oQpmye6snS6cVs1+PGNv aEC5iPB5xQ8dCyQpPaJ9 NZdyC323UkYicBHd Wdcce0uzb3xxeKf6KhRr PNYevmEkrZffNGL9u8Wu Ef65A0EmjNhwp5DnOod4 xy85tUKhd2T7oGF0 K4QrWWDutfzkmARrrIzj ON4zYCRftkejGBKmzB4y IHEmY8u3EcFoTaX6SRmj B8ZzrtV3LCOmxJMp DTmkSSY5M03hi9H8OAOs KUVhBCF6aWQ6oQ8xxAvy bjogbGVmdDsgdmVydGlj XBqwCVcrD145PQJm zWbiDMNxhW8hSCJzjNRt tApiKU3fBLUwqbkhOioT VDQYEGRWBXYPCwCEEH99 YO60tNSez5O7iGA2 W6MyXEVisqnmjfsmcLP1 FJHjWHToeH47yEHxTQeg Uh4ik1C2o248HVHcUWIe uY98Bm5cnIlsIRMs pEWHbH7ssdccb9nuxxkl NlZmMYMsODd0SNr9JPJo mNcfLsWmNTU2DhM5IUR7 gQKfuS4jhJlxyrxq hO9aPaq+MDEvMDgvMTk4 ODwvdGQ+DMTtXGG9jClr SZuaXZOfhO4wZJFkO7c5 WhBkCtX2WOahD5Ot UCJmscntFd06wP0qYxVv NeW0VPzrU9OrqnS1GIQz uEWnCWvcWYD1N79oe8X4 UKSuYZLnRKJ6rDR7 oO9kwAlsyyflsPPrfIbo wgPekSvkQImxPWawH817 GBNvaLlmVeY6PTqoFNTh AU64AP13lBIlt7G2 uMT2O8MxSNJyhjkunxys lYH8SRVjSJYenL71yCZi HKydZq9uq9P6i263KZKs TPBvpM20Mg8elXfc YRBkyDANjP2qhzpqt3yt amlfSoRdAEEaHIl9DNo4 CORhiCguLuDjFMA6OtA2 TNF5kMUzoY2noZfh awborB5xWka+RkVNQUxF IG61RB11bNNyc9D2xER6 I1PwUSLyuiblhocnhTQ8 QDFtWJKbqR65cLUv IGixMw6of6L1p190LWZn HWRcqR70Gx9liBkiZMCk jGTScH2msbmxg6wtbije AeNpPHWaEDj5ZIe0 ZOTafJsfOtDaOXX0YtO2 CJO5nKAteJ3giFnuwroh iH8hPhg+J7C6H2BpVxmv dHI+GE70TXOfKC40 oXCwvLTst2zscQn8TtVy UUDjSWX5dQtbDMqzg3Hy JVLqY88ygBAta9B7GDUl bGxhcHNlOyBlbXB0 mG0iXOigxoftb2cvlxew Kbtly4zvah34gI50B35c IHdpZHRoPSIzMCUiIHZh iXzias4hgJ5nXy9+ SWNbtMO8zMI9qE5wCxMv FdF0YKwqX754LxNjsRZr Kgzlr3yhw1inyDu6NqPz JSIgdmFsaWduPSJ0 c0PiMr06S19sPZiqZZQp AMTyCOJqBNNlsVuajk0y nX6fDp3+KS8hb5eggb73 pA17eVD+PHRkIHN0 mOdnHSunULSbhM1mETue XlX7TXRtRqNbmI35zZEl JBepPm2tbEhssAyhOR9e YPNwvutea984DwDc g4bhROSahOIhROcgRUQ8 G40lo7J9ODOiZRXkJWT2 tCZ0fQ1qwOzrxckxpIMm dDsgdmVydGljYWwt WSjkT205MIUbcIjvCsJw mFFvL7ujyuAXCD3dUzyi dGQ+VUMsOJW1iIlzQBym FSUxtM4wKPZpO4s9 LhOlYjP6QMzvW2QmclM6 CFJrzQGlGTJtiUOSgW9l znpmc8lmbizmOqHlXMDp VWj9KIx3MMQdiQzp OcOjDQH1IlD9VZB5gXFl tU5pbDzooehlxV3rIha+ RklOOjwvdGQ+PHRkIHN0 eVqkMTnbFDMuyE3l KDGrS7z3LfUzSiL6XIla Q8VwdnD6CYIrnYZuVTDe yYOPzK1besrcb6bloooq QkMmDMNxEDg1OXp0 XTHpqCbeShYiKRD1PwQ9 JLI3qBJooH5vkTfiuozn mR8hVzs+TVJOOjwvdGQ+ CKKgRBT2xXpdKTxw UMKbaE3dCXNfD7a6VvEk LhQ2MVrdY3FspcM4ZXTb uJRfDUAcbILBcB3liptm j4mnqrwhWaWiNHWs XMx9WEc5WJWviWtdYqRs ZBQ8GaT1JZF2lWIluW9d mLjvvqnumF5tAnh+UGF5 IPY2CW56RE72R3Wy PjwvdGFibGU+PHRhYmxl IHdpZHRoPScxMDAlJyBz kPurFQ3sOt5dDUPmYALx aEunoMGkYfUlg6dy YXB (more content not included)... [facility] Coding Summary HTMLBase 64 HoilfalwDOb8iAx+PGhl YWQ+EI6CCOWsP45eqGGh cD5GH4jMDX8UJFYVWRTS RD5SUB3ygPJ3PZzyE6Ev biAv WwgkrWDuWT37YPk4EWG4 dCjfXZzfxP2nlTOhX5y2 HiGwGW66pA91YLwgKPMj VrM9WvGppzqheBQj S6dgGhBvoRMhMsb+PHRh YmxlIHdpZHRoPScxMDAl CcRwyNhaED8cMl1gULKe LWNvbGxhcHNlOiBj w8maJYFoJOwxKV0hgAdy U2ZgoUQ0KFZmy9i3Dv12 dHI+KVFnZZC0bYwyKMoy j222XnJtl2wsNCI6 jPOqNXxpSIO4Q41fk7C4 FLXkZLXjVCD4zTY9iX0q yDuecnohJ8SumCEdQoK7 PWC3fELroS6wcGkn uopdcY6lWmh+X94PBF1P NOQYFB3SHll0A4UoOuif dHI+ER05MCBoGB51vMXm eGKop4jnhLy0HnCn KQDyTUE2jIovHOzpf5Mk DCYvF52sdNVqq1F2LLDd lKsikKSbMrBtxBM9gX1j MEpuusqmz8zxxdgj Gwhub4qprt08cM85H60p JJjmUPGrGIR0PZSgQWPa dRddkz8iyV3mCo8+IDxj a5ugo8rbkFe2FlGo CKMrbiDjsLdgHDQ5x1Xq Xy78X0OyxKeqd6FcExb0 ze18wRPsc3A3dSA3WYbu PJSjsH1qDAzqDlT5 RBLgZuTtyC48aZMrYMcq Au4apMvfnZhgOE3bRDLi uajuARZnxP9hBCQqzPUl tWgvWO8mMUBohrhe t409StEqAOB9QNRazDAp G8TkuL7gNzFiYMCvFCEl Y0VagJSvVHepT542GUhz LxQ7MHXiwsBlL6Zo TWYydKzdFcR3j4T9Ji9I m0DxnffkUAQ2DOemUGF9 NnQ5CjIlJjO0N4PhRrl1 HRHdgTsrNQ0cT4Gc QQIrpwcdfmrsxMZ5AGRl IOSwwT60nWKqQVkjOi8w u0Y1f905TQHtQNKwzF08 Fl0utAjxPOVrcJJI sM1vtnlny2tczmpjAzOq ZYHdELs4IZq7UEWhgMjc YmBrUOK9FlI3BQW9wEMj nD0mpLqdmyqruY6l Oyc+B50bpS3sFVS0AWQ0 jqvjXXDvauWdTP93ZD63 D1WhFgeunEXvrYQ+PGRp lfKwjNlcLO9yRtVo p1ela5GvBRbqI5KlAEXh IBvvOqb0PZNcPVI3qSI7 pD1aNLMdPTeqw8I5sBB9 A0NpkvGtvc0yz3up BQKiKHjmO43llQLsw5B5 TMBqaDL3CXSinMilNjSy dX45Kvx+AHQdvCems4Py Ktwoq7rxy1olpPt8 IjMwJSIgdmFsaWduPSJ0 c7YwZw67B49nDTxnZXNu LFNfLXVfDIRisAcwas7p fM7wZj9+PGNvbCB3 mSA2zD4cDREjAfI4NGpo Q615HfSrdTBxNfovw7sm u9azyZp1OpWrYWQhcgXc kOhaEUO6e5FoVh50 O52yBSqhFYTxVHDaGCBe ZOKkhOaeao8mnB7aEk0+ UA7il0nypl97kS35kEQ+ IGYsLDT5uKjrOFcp ZPQvuM4iGIueMuB3QVLp NvWqyI66vNHvXIcnZd6y nEpmdYhkIY2wXQKetuix n058EbYue5ptUDZh cSRxLRyxQGH5Q11if2W6 IGTgWWQlUDJ9dCO1yJ6f bGlnbjogbGVmdDsgdmVy jTmaZPdqSIpwI571 IHRvcDsnPlBhdGllbnQg PyEaHFv8T4LePuq5SSJk hPiuVS2leOLoFPkqZe7c sXxvzJgfAV3jQIPa nhmjl499QpHlz1xjIUEm hWFnMBhhBIQ2E45js0H9 XGXuLJSiQUL2bVO7aV2j bGlnbjogbGVmdDsg yzIhfViwBBbtMJazX722 IHRvcDsnPkJpcnRoIERh aDB0QP46VV81xIZdk6Q5 oGJ7L9AbIFGyvalp uqrsbGJ4KJPgYZBcdT21 Cn9ksGsdGw1lIYAdYVL2 MARilUDqU9XcxU7xRhYb NZWjGLMhW1CwoCAl MVhwR039VJfsSwS8MMNf hcVgB5IpIMFdgMjdVqS7 o5K6Vu1LA1N6TE76ID80 lDZai1O1cVV5V7Jp CNNgtgpkeazbsUW5BNIf HPWbdU29Og0ymOgxWa0f HESuGGR7ITXhjZOlJ0Xq xO5tRsOvVSNhUIPx T9BqnJMdRTfcN197ADvd AaP4RFArbnJsO7KiZBZj yYhnBkM3m8H7Py6WWNq7 DC52OL59gFDhj3R2 kVR3V2KzGORdeedkiudc rVC4MAOjSPBdlJ77Kt1l yWzsVz9zHNUfWFX9TVPu mUYbU3XrcE7zVtAl RUZeNMSaE2PjuRFrGDyr P134TVqdVbZ1ZIPindVh B2VfWJIaaRasKoD8n6L3 Og4PGYPfGP40AME7 hVA9CJ76NK47H8SzSjcq dGFibGU+PHRhYmxlIHdp ZHRoPScxMDAlJyBzdHls QI5iNl7hMGQwTROo iGwaeJXlFpTvi6yzRIXf XMbmOM6wdEahN6UozLH7 JNHkt5v9Et62M82lQ9Qs dXA+LPLcnLC6qBC8 nY0yRgIaKdG0VTcnI957 WjAnxKSsHzagk8iny6up qAn1RnE1PIXutlSdnNkh DHP6x0NkYv72S76f IHdpZHRoPSIxNSUiIHZh qTimbb4mlX3fPs7+PGNv tIZ4kEG4bQ9hDqWeHbR7 MMmgW897LrEnxZFr Kujsl6mvk5jmdGt0BlGd ROBrezLuuDuiRJJ6a2Go Sw44E8PphAniv8WhImq6 zw96aMTrb4I8bFJ6 J8YsFHIrlprjgWGlxZjt UT0kTKHbvcrqYYYmgV9r ZTOqS0e1QfJaUzD9WBzj M0VhdyD7MRKsdDAt EVrhGVK5C71dd0P6DBJx XFRnQPF6cSH4zQ9qjCkl bjogbGVmdDsgdmVydGlj FWeqCPzwI518UKWa zZvdAVNnyW8eFRItqUVe jVeqLQ4zTNAtmhymRmoB VFKPBFPFGQVDOuXEWX00 XD51bCVwx4W2jNA3 O4AdXSImrccreziggXE8 NKFyGIHflD48kNPuIPja Ge6zb4X4x939XBBnDPHd yG52Kf0heSceTELu nVZHpE4whamug5siivuc YfPjZDBqEHk4OIu1AYEl vYphMdDtEDV1PxU2LQN0 cYXqfP5mmMjmjnzv gX0uHtj+MDEvMDgvMTk4 ODwvdGQ+QXYuBRH7eLfp AIfmKPGapQ1tVWSrI9b5 EjOyMzS8SBfwG3Qd BNKjduokQw45kS5lUhVe BuM6KFtkS9QadbY8BVXu oBYmDCetJYV1P00sn8I1 JRXvZZZfKSA8wLS5 hL2fxPmbcctqiKAkkCmj qvYdbJbuTJqjFIefQ928 VQZpxCpjUaB6POpvWEPl BA98VQ84zOSbq7S0 mOH3S5PuTKLasiemwzaj hCB0HNXvJIDovK47qWRh ZInkSl6lj0I5w502ONDi IGWaqN26Gb4mxMoj SAPaiSMOzJ1trngas9ul xsnvTbTiCZZhFTa8VPr7 QQMjoMhhOhCeVLP0DvJ3 FBM2eBSzcY7xlBpt sblwkX7zZko+RkVNQUxF EQ50AM00uGOhw3I9fLS9 C2YbHSQziewxjkispZZ2 WQKzQNYntJ79gBOz JUqjNe1ne0N4p479GMVp CSTjiD73Md1vsTpyJORl aAXNsL0ukyxdi7aavjii RxHiVTErWKq4AGb4 ZLGybEehLdCpZHW6YtL1 OZN1xTTwoB2iiYujzdvr mL0aAak+CN8nssmvvdK1 UI46JL11I6XbMmra dGFibGU+PHRhYmxlIHdp ZHRoPScxMDAlJyBzdHls WP4sBh2zAAFgMIGnzRbz kDCnKnVfe2qfECVo BIfdRH2yjQjoZ7VktIW2 PFNmc7v0Qv65T47jJ5Yn dXA+XGAseBT8vKS5mI0t IyEeQdI1KUgxG058 KbUywPHfAvvox4myg1oj bIj5WmUeKSLsdcIfvPxl RWZ9o6QbAu43V84pUOue ZHRoPSIyMCUiIHZh aVbung8mgE0lZj7+PGNv nLF6pXD9eR6qGvDkNtF1 FYhtJ409FgXjaYVrEgvb O59mO2FpwGS+PHRy Apj6CTOxeMeeFQ5geSHs IPaoVq7hJOZ0LkClWvOt BVzbT9WaZDGwnhhjnyli lYI9ENOxLAPalB30 Vr9icAwsVr9qCIHyUEO6 WVWxjBMqG4ObaA7aJxWr VKMsILLdT6AyuRFuYMop A107JGndExQ0ZIBt rbIpM6QaASEoqOafHqK9 d6Z8Zc1RxVkvbNWqKA2h DnUcDZc5D0FtGhz4HOOt oLyrYH1izVZdBLcy Bk0puRpvcOykEV1rTIYf jbanr171YaNzo5afMNHb fSCkDBvcAVH3F08mw8U0 BNGyFBStUTJ8qSX9 fU0kzXbaioobbRTzhOcp tzJndKapRNooXKzaN975 IVXzaBjrZuGPJcq3C7Kd Tbl5SCTvyPduME7p iWDyEJcgHz9raUizaBpl AZ5zELQtbdhte254HiIm g3fzHWOfkEQoDJqfEJQ7 V65nw2X4MAMmMUHt CHE5vTW9fP4pfJhdoywz bGVmdDsgdmVydGljYWwt ALkjF864FBIuhNltPk0V Yjz4G5JuNpm3FXJd pNduUI6fxGChSWbnYn3r aNzccAawZW6nGOLwzqey f366KjJyo9ehMPPxxRQx BCioUZK3L98wu4W8 NRVcUPHdJTJ6rXR4zB2v bGlnbjogbGVmdDsgdmVy fOooKPuoAAyaV088USXy cDsnPlBheWVyOjwv dGQ+PQ87eb11Z2LsDcnh Mvf5MDQjTXX3nTF4jV7f MDNbXUppi7L7zNW8Y6Aw knWjws3kd9dlWPVy ZTo (more content not included)... [facility] Ambulance Noteon 12-26-2021 Ambulance Note [id number] [id number] [facility] ED Clinical Summaryon 2021 ED Clinical Summary [facility] - Emergency Department [address] [place], [place] [id number] ED Clinical Summary PERSON INFORMATION Name: LOCO HICKS Age: 36 Years Sex: FEMALE : 1985 MRN: Acct#: Visit Reason: Dizziness; FACIAL NUMBNESS, DIZZINESS Arrival: 12/21/2021 18:23:41 Discharge: 12/22/2021 00:02:00 LOS: 000 05:39 Check In: 12/21/2021 18:23:41 Checkout:12/22/2021 00:02:00 Address: [address] [place] [id number] PCP: Provider, None PROVIDER INFORMATION Provider Role Assigned Unassigned Alvin Bryan ED Provider 12/21/2021 18:26:52 12/21/2021 18:30:20 Sanjuana Ramirez NEIGHBORHOOD CONSERVATION OFFICER Nurse 12/21/2021 18:29:17 12/21/2021 23:14:12 MARIAJOSE EDEN ED PA 12/21/2021 18:30:25 Kerline Cartagena NEIGHBORHOOD CONSERVATION OFFICER Nurse 12/21/2021 21:46:32 Kerline Merrill RN ED [...] Medication Allergies PHYSICIAN DOCUMENTATION Patient: LOCO HICKS [facility]: [id number] Age: 36 years Sex: FEMALE : 1985 [...] - pharynx pink and moist. NECK: -Supple ([id number]): non-tender. CARD: -Rate and rhythm: Regular -Edema: No -Calf pain: No RESP: -Respiratory effort and chest excursion with respirations: Normal -Breath sounds equal bilaterally: Clear -Wheezes: No -Rales: No BACK: -Signs of pain with movement: No ABD: -Distended: No (more content not included)... Normal [facility] ED Patient Education Noteon 12-22-2021 ED Patient Education Note Education Materials [facility] ED Patient Summaryon 022 ED Patient Summary [facility] - Emergency Department [address] [place] [id number] PATIENT DISCHARGE INSTRUCTIONS Patient Information Name: LOCO HICKS Age: 36 Years Date of : 1985 Reason For Visit: Dizziness; FACIAL NUMBNESS, DIZZINESS Arrival Time: 12/21/2021 18:23:41 Primary Care Physician: Provider, None Attending Physician: Alvin Bryan Comment: Visit Diagnosis: Diagnoses This Visit Dizziness ([id number]) Paresthesias (R20.2) Visual disturbance (H53.9) Prescription Information: If you have been given a prescription for narcotics, seek immediate medical attention if you have any difficulty breathing or any sudden status changes such as confusion and sleepiness. If you or anyone you know is experiencing suicidal thoughts, mental health, alcohol and/or drug addiction problems; contact the [facility] 17/02 Crisis Hotline -Text 4HIFI to [phone]. If you received any narcotics, sedation, or [...] and treatment you received today in the [facility] Emergency Department were for an urgent problem and are not intended as complete care. It is important for you to follow up with a doctor, nurse practitioner, or physician?s assistant controller for ongoing care. If your symptoms become [...] if necessary. [facility] Emergency Department has provided you with a complete list of medications post discharge. Please inform your route aide/provider of your visit and for further instruction [...] 2014 Normal [facility] MRI BRAIN W WO CONTRASTon MRI BRAIN [...] Ean Cedillo MD 12/22/21 Final result Normal [facility] MRI CERVICAL SPINE W WO CONT [...] Ean Cedillo MD 12/22/21 Final result Normal [facility] [id number] 12-22-2021 SARS-CoV-2 (COVID-19) RNA SHELBI+probe Ql (Unsp spec) Not detected Normal NOTDET [facility] Comment on above: Result Comment: Rapid [...] management decisions. Fact sheet for Healthcare Providers: https://www.fda.gov/media/691640/download Fact sheet for Patients: https://www.fda.gov/media/746634/download Methodology: Isothermal Nucleic Acid Amplification Performed By: #### C OVRB #### [place] [address] Wine Steward: Campbell Simmons MD SARS-CoV-2 (COVID-19) PCRon 12-22-2021 Employed in healthcare? No Invalid Interpretation Code [facility] Comment on above: Performed By: #### 6 [id number] ####[facility] (DEFAULT)[address] [place] [address] Group care resident? No Invalid Interpretation Code [facility] Comment on above: Performed By: #### 6 [id number] ####[facility] (DEFAULT)[address] [place] [address] In ICU? No Invalid Interpretation Code [facility] Comment on above: Performed By: #### 6 [id number] ####[facility] (DEFAULT)[address] [place] [address] status? Not Invalid Interpretation Code [facility] Comment on above: Performed By: #### 6 [id number] ####[facility] (DEFAULT)[address] [place] [address] SARS-CoV-2 (COVID-19) RNA SHELBI+probe Ql (Unsp spec) Not detected Normal Not Detected [facility] Comment on above: Result Comment: Perf ormed by PCR methodology. Performed By: #### 6 [id number] ####[facility] (DEFAULT)[address] [place] [address] SARS-CoV-2 (COVID-19) RNA SHELBI+probe Ql (Unsp spec) No Invalid Interpretation Code [facility] Comment on above: Performed By: #### 6 [id number] ####[facility] (DEFAULT)[address] [place] [address] Symptomatic as defined by CDC? No Invalid Interpretation Code [facility] Comment on above: Performed By: #### 6 [id number] ####[facility] (DEFAULT)[address] [place] [address] Transfer Noteon 12-22-2021 Transfer Note medication list sent with patient, Complete ED chart sent with patient. CD and med list sent w. patient to Hospital [Electronically Signed on: 12/22/2021 00:05 EDT] Nadya Garcia [Verified on: 12/22/2021 00:05 EDT] Nadya Garcia Normal [facility] Transfer Note [id number] #1.00[address] [facility] Transfer Note [id number] #1.00OTGTIFF [facility] Transfer Note transport called, [facility] called for transport to [facility]. Willie stated will call when back in area from [facility] Trip. [Electronically Signed on: 12/21/2021 22:14 EDT] Nadya Garcia [Verified on: 12/21/2021 22:14 EDT] Nadya Garcia [facility] .Auto Diff 1on 12-21-2021 Auto Charles Mix % 7 % Normal 1-12 [facility] Comment on above: Performed By: #### 7 427140, [id number], 9779767, 95975478, 2912194, 7914330, 2211518963, 6995902, [id number] ####[facility] (DEFAULT)[address] [place] [address] Baso Abs# 0.0 x10 Normal 0.0-0.2 [facility] Comment on above: Performed By: #### 7 110686, [id number], 8373864, 86006853, 5580240, 2762244, 8843242842, 1282661, [id number] ####[facility] (DEFAULT)[address] [place] [address] Basophils/100 WBC (Bld) 0.4 % Normal 0.2-2.0 [facility] Comment on above: Performed By: #### 7 808635, [id number], 0837802, 04810241, 5646350, 8641404, 3893164400, 4391067, [id number] ####[facility] (DEFAULT)[address] [place] [address] Eos Abs# 0.1 x10 Normal 0.0-0.4 [facility] Comment on above: Performed By: #### 7 807436, [id number], 1789934, 57359453, 0457095, 4821933, 8016875466, 4074570, 8007132479 ####[facility] (DEFAULT)[address] [place] [address]43[address] Eosinophils/100 WBC (Bld) 0.7 % Low 0.9-4.0 [facility] Comment on above: Performed By: #### 7 528950, 3739371456, 2429633, 62748079, 2425345, 9764372, 2099827355, 8347841, 3180004473 ####[facility] (DEFAULT)[address] [place] [address] 959[address] Lymph Abs# 3.2 x10 High 1.3-2.9 [facility] Comment on above: Performed By: #### 7 104671, 5141233473, 4300497, 21935507, 4586772, 3771236, 6336887019, 7604745, 0934729800 ####[facility] (DEFAULT)[address] [place] [address] 06094 Lymphocytes/100 WBC (Bld) 40 % Normal 14-48 [facility] Comment on above: Performed By: #### 7 357838, 9047855185, 7399883, 46183250, 8447236, 8422542, 5317450121, 0290167, [id number] ####[facility] (DEFAULT)[address] [place] [address] Charles Mix Abs# 0.6 x10 Normal 0.0-0.8 [facility] Comment on above: Performed By: #### 7 773240, [id number], 1754234, 02184185, 4818080, 5759756, 2648737183, 1018666, 6288489897 ####[facility] (DEFAULT)[address] [place] [address]312 Neut Abs# 4.3 x10 Normal 1.5-9.2 [facility] Comment on above: Performed By: #### 7 407653, 5663950744, 8947343, 23796709, 3425843, 1591558, 7840115195, 4342231, 3561249459 ####[facility] (DEFAULT)[address] [place] [address] 19751 Neutrophils/100 WBC (Bld) 53 % Normal 44-88 [facility] Comment on above: Performed By: #### 7 237911, 0608058383, 9018181, 25387048, 1575140, 4417906, 3465130580, 2534100, 1510166752 ####[facility] (DEFAULT)[address] [place] [address] CBC w/ Auto Diffon 2 Erythrocyte distribution width (RBC) [Ratio] 14.3 % Normal 11.5-15.0 [facility] Comment on above: Performed By: #### 7 946436, 7839169663, 9027754, 17061132, 8860050, 8120168, 9582512608, 3285457, 1887869279 ####[facility] (DEFAULT)[address] [place] [address] Hematocrit (Bld) [Volume fraction] 42.3 % High 33.7-40.4 [facility] Comment on above: Performed By: #### 7 277385, 2008718230, 2304795, 35649072, 4569452, 4605040, 3080490676, 5914513, 7677668306 ####[facility] (DEFAULT)[address] [place] [address] 21154 Hemoglobin (Bld) [Mass/Vol] 13.7 g/dL Normal 11.3-15.9 [facility] Comment on above: Performed By: #### 7 215444, 0633211530, 1394875, 44200705, 6720315, 6219221, 6694622730, 7562754, 2690914430 ####[facility] (DEFAULT)[address] [place], [place] [address] Instr WBC 8.2 x10 Invalid Interpretation Code [facility] Comment on above: Performed By: #### 7 327710, 6103424998, 3536066, 43967574, 9316826, 0636540, 3962015977, 4376941, 1914029307 ####[facility] (DEFAULT)[address] [place] [address] 73422 Man Diff? Auto Normal [facility] Comment on above: Performed By: #### 7 674593, 9238035254, 2299368, 69158939, 8527678, 1438127, 8089917709, 0787757, 3870232110 ####[facility] (DEFAULT)[address] [place] [address] 59185 MCH (RBC) [Entitic mass] 31 pg Normal 24-34 [facility] Comment on above: Performed By: #### 7 396096, 4150817695, 0000352, 67645162, 4724852, 4852702, 4414160501, 8812053, 8992209982 ####[facility] (DEFAULT)[address] [place] [address] 25545 MCHC (RBC) [Mass/Vol] 32 g/dL Normal 26-37 [facility] Comment on above: Performed By: #### 7 291825, 3337282365, 9488796, 29054951, 5484148, 3902019, 1556142688, 9896306, 6833235353 ####[facility] (DEFAULT)[address] [place] [address] 16948 MCV (RBC) [Entitic vol] 96 fL Normal 81-100 [facility] Comment on above: Performed By: #### 7 258946, 5890799858, 2828423, 75733566, 3307650, 8320436, 3663012508, 9529879, 2641998962 ####[facility] (DEFAULT)[address] [place] [address] 60091 Platelet 363 x10 Normal 138-427 [facility] Comment on above: Performed By: #### 7 517066, 3260522769, 1662371, 58980067, 9734578, 1133444, 7744865638, 1932843, 6466410426 ####[facility] (DEFAULT)[address] [place] [address] 05845 Platelet mean volume (Bld) [Entitic vol] 10.2 fL Normal 6.3-10.2 [facility] Comment on above: Performed By: #### 7 738776, 5389258570, 8644264, 80860619, 6920129, 1229401, 2037671928, 5738135, 8713429612 ####[facility] (DEFAULT)[address] [place] [address] RBC 4.42 x10 Normal 3.70-5.30 [facility] Comment on above: Performed By: #### 7 740631, 5907618622, 1231904, 08059078, 6230382, 6372095, 4161258552, 1056257, 2117114899 ####[facility] (DEFAULT)[address] [place] [address] WBC 8.2 x10 Normal 3.5-10.5 [facility] Comment on above: Performed By: #### 7 455799, 8379853313, 0218744, 43974861, 8740941, 5293577, 4799557666, 0603265, 1074210251 ####[facility] (DEFAULT)[address] [place] [address] CMP Standardon 12-21-2021 eGFR Non AA 57 mL/min/1.73m2 Invalid Interpretation Code [facility] Comment on above: Performed By: #### 7 899638, 8126835684, 7796740, 06710693, 8729860, 7537717, 4653242722, 9965577, 9096198509 ####[facility] (DEFAULT)[address] [place] [address] eGFR AA >60 Invalid Interpretation Code [facility] Comment on above: Result Comment: [employer] nathalia Kidney disease could be indicated at eGFRs of less than 60 ml/min/1.73m2. Kidney Failure is indicated at less than 15 ml/min/1.73m2 Performed By: #### 7 840274, [id number], 9198837, 77237383, 3709913, 5351202, 1981533292, 6561860, [id number] ####[facility] (DEFAULT)[address] [place] [address] Albumin [Mass/Vol] 4.7 g/dL Normal 3.5-5.0 [facility] Comment on above: Performed By: #### 7 305460, [id number], 2556390, 44105894, 9118768, 5028427, 9511612927, 7119406, 1621907761 ####[facility] (DEFAULT)[address] [place] [address] Albumin/Globulin [Mass ratio] 1.1 {ratio} Low 1.4-2.6 [facility] Comment on above: Performed By: #### 7 017060, [id number], 4297886, 90579891, 4636012, 4903396, 2838390376, 6253344, 5148163816 ####[facility] (DEFAULT)[address] [place] [address] Alk Phos 99 IU/L High 32-91 [facility] Comment on above: Performed By: #### 7 216645, 9275288355, 6142083, 43397641, 2384011, 5389574, 1165036982, 8466558, 1713917361 ####[facility] (DEFAULT)[address] [place] [address] 69988 ALT [Catalytic activity/Vol] 32.0 U/L Normal 14.0-54.0 [facility] Comment on above: Performed By: #### 7 924171, 6007450150, 5843615, 19595562, 1111978, 2743329, 6451668808, 4367301, 8313067651 ####[facility] (DEFAULT)[address] [place] [address] 18009 Anion gap [Moles/Vol] 23.0 mmol/L High 5.0-19.0 [facility] Comment on above: Performed By: #### 7 660954, [id number], 9881219, 59760328, 1431006, 3121132, 2522911594, 3390428, 0586941944 ####[facility] (DEFAULT)[address] [place] [address] 12368 AST [Catalytic activity/Vol] 41 U/L Normal 15-41 [facility] Comment on above: Performed By: #### 7 497570, [id number], 1051605, 44511032, 7220467, 2842720, 9016500786, 5207114, 6926832911 ####[facility] (DEFAULT)[address] [place] [address] 70851 Bili Total 0.4 mg/dL Normal 0.3-1.2 [facility] Comment on above: Performed By: #### 7 150162, 0656703790, 4020876, 76762974, 1254271, 0347543, 3520464439, 7564322, 2606313247 ####[facility] (DEFAULT)[address] [place] [address] 80084 Calcium [Mass/Vol] 10.2 mg/dL Normal 8.9-10.3 [facility] Comment on above: Performed By: #### 7 200925, 6201784475, 0573552, 07388964, 1497772, 0222613, 8956350488, 1652036, 3139114346 ####[facility] (DEFAULT)[address] [place] [address] 78544 Chloride [Moles/Vol] 96 mmol/L Low 101-111 [facility] Comment on above: Performed By: #### 7 023690, 1052823043, 2696740, 15366580, 7163808, 9764722, 2643030069, 7643993, 6900631959 ####[facility] (DEFAULT)[address] [place] [address] 25884 CO2 [Moles/Vol] 24 mmol/L Normal 21-32 [facility] Comment on above: Performed By: #### 7 786250, 5750572975, 5057956, 77805439, 2232543, 0860667, 4914076803, 4551843, 3101000119 ####[facility] (DEFAULT)[address] [place] [address] 05409 Creatinine [Mass/Vol] 1.10 mg/dL Normal 0.60-1.30 [facility] Comment on above: Performed By: #### 7 578618, 2184422498, 6966212, 95659345, 5508446, 2438434, 8297280808, 9744483, 9335877526 ####[facility] (DEFAULT)[address] [place] [address] 81024 Globulin (S) [Mass/Vol] 4.2 g/dL Normal 1.5-4.3 [facility] Comment on above: Performed By: #### 7 328627, 6819928754, 1042478, 17833620, 6258683, 3334386, 8236747350, 8518692, 4431263999 ####[facility] (DEFAULT)[address] [place] [address] 11891 Glucose [Mass/Vol] 97.0 mg/dL Normal 74.0-118.0 [facility] Comment on above: Performed By: #### 7 944387, 4536379571, 9819170, 73764596, 8174925, 6596685, 4648186968, 6173215, 3298620510 ####[facility] (DEFAULT)[address] [place] [address] 93644 Osmolality 278 mOsm/L Invalid Interpretation Code [facility] Comment on above: Performed By: #### 7 809907, 1072480240, 6674372, 94342276, 7650568, 2461527, 7276124897, 8785466, 9691890221 ####[facility] (DEFAULT)[address] [place] [address] 16145 Potassium [Moles/Vol] 3.5 mmol/L Low 3.6-5.1 [facility] Comment on above: Performed By: #### 7 992064, 7102706872, 1772002, 46986447, 6701899, 6717308, 8035410891, 5082989, 7915270524 ####[facility] (DEFAULT)[address] [place] [address] 97134 Protein [Mass/Vol] 8.9 g/dL High 6.5-8.1 [facility] Comment on above: Performed By: #### 7 300880, 6540295953, 0277698, 80224390, 3238384, 7959513, 8920789824, 3577400, 8516937656 ####[facility] (DEFAULT)[address] [place] [address] 69125 Sodium [Moles/Vol] 139.0 mmol/L Normal 136.0-144.0 [facility] Comment on above: Performed By: #### 7 739670, 7662918810, 3434459, 56269955, 2152699, 0686512, 5296488167, 4130246, 3420827537 ####[facility] (DEFAULT)[address] [place] [address] 24016 Urea nitrogen [Mass/Vol] 15 mg/dL Normal 8-26 [facility] Comment on above: Performed By: #### 7 772496, 4730412061, 5015408, 24424601, 4265567, 8337541, 8685459163, 1324952, 7911438543 ####[facility] (DEFAULT)[address] [place] [address] 05948 Urea nitrogen/Creatinine [Mass ratio] 14.0 mg/mg Normal 4.6-16.2 [facility] Comment on above: Performed By: #### 7 918433, 3511378641, 0383872, 64546939, 7074856, 0441514, 6078769051, 6996657, 6677985133 ####[facility] (DEFAULT)[address] [place] [address] Head or Brain w/o Contras ton [...] 12/21/21 9:19 pm Technologist: Erwin CHAUDHARI Normal [facility] D-Dimeron 12-21-2021 D-Dimer 0.49 mg/L FEU Normal 0.19-0.50 [facility] Comment on above: Result Comment: The INNOVANCE [...] Liver cirrhosis ? Performed By: #### 7 156734, 2873042256, 9639116, 73387000, 4323694, 4481279, 4510333292, 3288035, 3199351021 ####[facility] (DEFAULT)[address] [place] [address] ED Note - Otheron 12-21-2021 ED Note - Other Neurology called back from [facility], on phone with Mariajose LLANES [Electronically Signed on: 12/21/2021 21:29 EDT] Nadya Garcia [Verified on: 12/21/2021 21:29 EDT] Nadya Garcia [facility] ED Note - Other paging Neurology through [facility] for consult for Mariajose LLANES [Electronically Signed on: 12/21/2021 21:12 EDT] Nadya Garcia [Verified on: 12/21/2021 21:12 EDT] RadhaNadya [facility] ED Note - Physicianon 2021 ED [...] - pharynx pink and moist. NECK: -Supple ([id number]): non-tender. CARD: -Rate and rhythm: Regular -Edema: [...] included)... Normal [facility] ED Note-Nursingon 12-21-2021 ED Note-Nursing Kaiako Kohanga Reo assumed care for pt at 2124. Pt had fluids running at that time. Will continue to give the rest of the liter per VO from MARIO ALBERTO. MARIO ALBERTO also stated that after speaking with neuro, pt is to be transferred to [facility] for MRI and further evaluation. Normal [facility] Ethanol.on 12-21-2021 Ethanol Level 9.0 mg/dL High 0.0-5.0 [facility] Comment on above: Performed By: #### 2 [id number] #### [facility] (DEFAULT) [address] [place] [address] 60778 Extra [place] 12-21-2021 Tube Collected Yes Invalid Interpretation Code [facility] Comment on above: Performed By: #### 2 684595, [id number] #### [facility] (DEFAULT) [address] [place] [address] 43540 Extra Redon 12-21-2021 Tube Collected Yes Invalid Interpretation Code [facility] Comment on above: Performed By: #### 7 239002, [id number], 3756099, 59509671, 5918476, 6190466, 5737256711, 6692247, 8520595344 #### [facility] (DEFAULT) [address] [place] [address] 04438 Magnesiumon 12-21-2021 Magnesium [Mass/Vol] 2.02 mg/dL Normal 1.80-2.50 [facility] Comment on above: Performed By: #### 7 477088, 0111363731, 7563428, 86631175, 7922975, 8032320, 4914645194, 5576570, 2050321110 ####[facility] (DEFAULT)[address] [place] [address] 18387 PTon 12-21-2021 INR Coag (PPP) [Relative time] 0.94 {INR} Normal 0.91-1.11 [facility] Comment on above: Performed By: #### 7 838635, 4234369949, 4371933, 85445151, 3344541, 4559129, 2875160011, 2772152, 7068216472 ####[facility] (DEFAULT)[address] [place] [address] PT 10.2 second(s) Normal 9.7-11.8 [facility] Comment on above: Performed By: #### 7 139669, 2872466678, 9074657, 57564751, 7667585, 4728705, 4101002836, 1027509, 4034550611 ####[facility] (DEFAULT)[address] [place] [address] 26454 PTTon 12-21-2021 PTT 26 second(s) Normal 25-35 [facility] Comment on above: Performed By: #### 7 345169, 3269116752, 5472079, 46624442, 0604564, 2056052, 7933412464, 0141918, 5764348093 ####[facility] (DEFAULT)[address] [place] [address] 38457 Test Urine 1 U Preg Negative Normal [facility] Comment on above: Performed By: #### 1 [id number], [id number] ####[facility] (DEFAULT)[address] [place], [place] [address] U Preg Internal Control Pass [facility] Comment on above: Performed By: #### 1 [id number], [id number] ####[facility] (DEFAULT)[address] [place] [address] 49669 Salicylateon 12-21-2021 Salicylate Lvl <4.0 Normal 0.0-30.0 [facility] Comment on above: Result Comment: Sali cylate ranges less than 30 mg/dL are considered to be therapeutic. Levels greater than 30 mg/dL are considered toxic and levels greater than 60 mg/dL may be lethal. Performed By: #### 2 660472, [id number] #### [facility] (DEFAULT) [address] [place] [address] 47402 TnI HSon 12-21-2021 Troponin I High Sensitivity <2 Normal <=15 [facility] Comment on above: Result Comment: Male Baseline Delta 1Hr (Note pg/mL=ng/L) <20pg/mL 50-60% >20pg/mL 20% Female Baseline Delta 1Hr <15pg/mL 50-60% >15pg/mL 20% Other Baseline Delta 1Hr <18ng/mL 50-60% >18ng/mL 20% ([employer] [employer] Guidelines February 2018) Performed By: #### 7 977936, 1299662413, 8361666, 26796941, 0781509, 6526926, 3542706393, 0741233, 7208527344 ####[facility] (DEFAULT)[address] [place] [address] 33949 Triage Panel 1212-21-2021 Triage [address] Control Pass [facility] Comment on above: Performed By: #### 1 [id number] ####[facility] (DEFAULT)[address] [place] [address] 95825 U Amph Scr Negative Normal [facility] Comment on above: Performed By: #### 1 [id number] ####[facility] (DEFAULT)[address] [place] [address] 53149 U Vanesa Scr Negative [facility] Comment on above: Performed By: #### 1 [id number] ####[facility] (DEFAULT)[address] [place] [address] 23365 U Benzodia Scr Negative [facility] Comment on above: Performed By: #### 1 [id number] ####[facility] (DEFAULT)[address] [place] [address] 09547 U Cannab Scrn Negative [facility] Comment on above: Performed By: #### 1 [id number] ####[facility] (DEFAULT)[address] [place] [address] 03057 U Cocaine Scr Negative [facility] Comment on above: Performed By: #### 1 [id number] ####[facility] (DEFAULT)[address] [place] [address] 44772 U Methadone Scr Negative [facility] Comment on above: Performed By: #### 1 [id number] ####[facility] (DEFAULT)[address] [place] [address] 09924 U Methamp Scrn Negative [facility] Comment on above: Performed By: #### 1 [id number] ####[facility] (DEFAULT)[address] [place] [address] 43754 U Opiate Scr Negative [facility] Comment on above: Performed By: #### 1 [id number] ####[facility] (DEFAULT)[address] [place] [address] 47810 U Oxycod Scr Negative [facility] Comment on above: Performed By: #### 1 [id number] ####[facility] (DEFAULT)[address] [place] [address] 01620 U Phencyclidine Scr Negative [facility] Comment on above: Performed By: #### 1 [id number] ####[facility] (DEFAULT)[address] [place] [address] 19172 U Propoxyphene Scr Negative [facility] Comment on above: Performed By: #### 1 [id number] ####[facility] (DEFAULT)[address] [place] [address] 94703 U Tricyclic Antidepress Scr Negative [facility] Comment on above: Result Comment: Resu [...] PPX Propoxyphene (Norpropoxyphene): 300 ng/mL THC Cannabinoids (75-pev-8-carboxy- -THC): 50 ng/mL TCA Tricyclic-Antidepressants (Desipramine): 300 ng/mL Performed By: #### 1 [id number] ####[facility] (DEFAULT)[address] [place] [address] Urine Source Clean Catch Normal [facility] Comment on above: Performed By: #### 1 [id number] ####[facility] (DEFAULT)[address] [place] [address] UA w Culture if Ind Standard on 12-21-2021 Color (U) Yellow Normal [facility] Comment on above: Performed By: #### 1 [id number], [id number] ####[facility] (DEFAULT)[address] [place] [address] Culture? Not Indicated Invalid Interpretation Code [facility] Comment on above: Result Comment: Resu lt created by rule GL_MAGR_ADD_UA_CULT1 Performed By: #### 1 [id number], [id number] ####[facility] (DEFAULT)[address] [place] [address] Glucose (U) [Mass/Vol] Negative Normal [facility] Comment on above: Performed By: #### 1 [id number], [id number] ####[facility] (DEFAULT)[address] [place] [address] Ketones Ql (U) Negative Normal [facility] Comment on above: Performed By: #### 1 [id number], [id number] ####[facility] (DEFAULT)[address] [place] [address] 58027 Micro? Not Indicated Invalid Interpretation Code [facility] Comment on above: Result Comment: Resu lt created by rule GL_MAGR_ADD_UA_MICRO Performed By: #### 1 [id number], [id number] ####[facility] (DEFAULT)[address] [place] [address] 62562 UA Bilirubin Negative Normal [facility] Comment on above: Performed By: #### 1 [id number], [id number] ####[facility] (DEFAULT)[address] [place] [address] UA Blood Negative Normal NEGATIVE [facility] Comment on above: Performed By: #### 1 [id number], [id number] ####[facility] (DEFAULT)[address] [place] [address] 02543 UA Clarity CLEAR Normal CLEAR [facility] Comment on above: Performed By: #### 1 [id number], [id number] ####[facility] (DEFAULT)[address] [place] [address] 30977 UA Leuk Est Negative Normal NEGATIVE [facility] Comment on above: Performed By: #### 1 [id number], [id number] ####[facility] (DEFAULT)[address] [place] [address] 85764 UA Nitrite Negative Normal NEGATIVE [facility] Comment on above: Performed By: #### 1 [id number], [id number] ####[facility] (DEFAULT)[address] [place] [address] 93549 UA pH 6.5 Normal 5-8 [facility] Comment on above: Performed By: #### 1 [id number], [id number] ####[facility] (DEFAULT)[address] [place] [address] 15687 UA Protein Negative Normal NEGATIVE [facility] Comment on above: Performed By: #### 1 [id number], [id number] ####[facility] (DEFAULT)[address] [place] [address] 72882 UA Spec Grav <=1.005 Normal 1.001-1.035 [facility] Comment on above: Performed By: #### 1 [id number], [id number] ####[facility] (DEFAULT)[address] [place] [address] 07368 UA Urobilinogen 0.2 mg/dL Normal 0.2-1.0 [facility] Comment on above: Performed By: #### 1 [id number], [id number] ####[facility] (DEFAULT)[address] [place] [address] 92047 Breakpoint UA Normal [facility] Comment on above: Performed By: #### 1 [id number], [id number] ####[facility] (DEFAULT)[address] [place] [address] Urine Source Clean Catch Normal [facility] Comment on above: Performed By: #### 1 [id number], [id number] ####[facility] (DEFAULT)[address] [place] [address] 69794 XR Chest 2 Viewson 2 XR Chest [...] Bowen 12/21/21 9:38 pm Technologist: BARBRA,L Normal [facility] CARDIAC HUMAIRA ADMITon 021 CK [Catalytic activity/Vol] 117 U/L Normal 30-135 [facility] Comment on above: Performed By: #### T SH, CMADM, CMP #### [facility] [address] [id number] Nelida Lliy CK.MB [Mass/Vol] 1.16 ng/mL Normal <=2.37 [facility] Comment on above: Performed By: #### T JOÃO LOCK, CMP #### [facility] [address] [address] Nelida Lily HSTROP <4.0 Normal 4.0-35.5 [facility] Comment on above: Result Comment: CUT- OFF POINTS HAVE BEEN ESTABLISHED BASED ON THE FOURTH UNIVERSAL DEFINITIONS OF MYOCARDIAL INFARCTION. THE UPPER REFERENCE LIMIT (URL) OF TROPONIN, DEFINED THE 99TH PERCENTILE OF cTnI DISTRIBUTION IN A REFERENCE POPULATION, HAS BEEN CONFIRMED THE DECISION THRESHOLD FOR [place] DIAGNOSIS. Performed By: #### T JOÃO LOCK, CMP #### [facility] [address] [place] [address] Nelida Lily NGA 41.0 ng/mL Normal <=61.5 [facility] Comment on above: Performed By: #### T JOÃO LOCK, CMP #### [facility] [address] [place], [place] [id number] Nelida Lily CBC AUTO DIFFon 02-23-2021 BASO # 0.1 103/ul Normal 0.0-0.1 [facility] Comment on above: Performed By: #### C BC #### [facility] [address] [place], [place] [phone] Nelida Lily Basophils/100 WBC (Bld) 1.0 % Normal 0.2-2.0 [facility] Comment on above: Performed By: #### C BC #### [facility] [address] [place] [address] Nelida Lily EO # 0.1 103/ul Normal 0.0-0.7 [facility] Comment on above: Performed By: #### C BC #### [facility] [address] [place], [place] [phone] Nelida Lily Eosinophils/100 WBC (Bld) 2.2 % Normal 0.9-7.0 [facility] Comment on above: Performed By: #### C BC #### [facility] [address] [place] [address] Nelida Lily Erythrocyte distribution width (RBC) [Ratio] 14.2 % Normal 11.0-15.0 [facility] Comment on above: Performed By: #### C BC #### [facility] [address] [place] [address] Nelida Lily Hematocrit (Bld) [Volume fraction] 40.6 % Normal 36.0-48.0 [facility] Comment on above: Performed By: #### C BC #### [facility] [address] [place] [address] Nelida Lily Hemoglobin (Bld) [Mass/Vol] 13.3 g/dL Normal 12.0-16.0 [facility] Comment on above: Performed By: #### C BC #### [facility] [address] [place] [address] Nelida Lily IG # 0.02 10e3/ul Normal 0.00-0.03 [facility] Comment on above: Performed By: #### C BC #### [facility] [address] [place] [address] Nelida Lily IG % 0.4 % Normal 0.0-0.5 [facility] Comment on above: Performed By: #### C BC #### [facility] [address] [place] [address] Nelida Lliy LYMPH # 1.7 103/ul Normal 1.2-3.8 [facility] Comment on above: Performed By: #### C BC #### [facility] [address] [place] [address] Nelida Lily Lymphocytes/100 WBC (Bld) 34.6 % Normal 20.5-60.0 [facility] Comment on above: Performed By: #### C BC #### [facility] [address] [place], [place] [phone] Nelida Lily MANUAL DIFF REQ NO Normal [facility] Comment on above: Performed By: #### C BC #### [facility] [address] [place], [place] [phone] Nelida Lily MCH (RBC) [Entitic mass] 31.5 pg Normal 26.7-34.0 [facility] Comment on above: Performed By: #### C BC #### [facility] [address] [place] [address] Nelida Bautista MCHC (RBC) [Mass/Vol] 32.8 g/dL Normal 29.9-35.2 [facility] Comment on above: Performed By: #### C BC #### [facility] [address] [address] Nelida Bautista MCV (RBC) [Entitic vol] 96.2 fL Normal 81.0-99.0 [facility] Comment on above: Performed By: #### C BC #### [facility] [address] [place] [address] Nelida Bautista MONO # 0.4 103/ul Normal 0.3-0.8 [facility] Comment on above: Performed By: #### C BC #### [facility] [address] [place] [address] Nelida Bautista Monocytes/100 WBC (Bld) 7.1 % Normal 1.7-12.0 [facility] Comment on above: Performed By: #### C BC #### [facility] [address] [place] [address] Nelida Bautista NEUT # 2.7 103/ul Normal 1.4-6.5 [facility] Comment on above: Performed By: #### C BC #### [facility] [address] [place] [address] Nelida Bautista Neutrophils/100 WBC (Bld) 54.7 % Normal 43.0-75.0 [facility] Comment on above: Performed By: #### C BC #### [facility] [address] [place], [place] [phone] Nelidajose Bautista Platelet mean volume (Bld) [Entitic vol] 9.8 fL Normal 9.5-13.5 [facility] Comment on above: Performed By: #### C BC #### [facility] [address] [place], [place] [phone] Nelida Lily PLT 320 103/ul Normal 150-450 [facility] Comment on above: Performed By: #### C BC #### [facility] [address] [address] Nelida Bautista RBC 4.22 106/ul Normal 4.20-5.40 [facility] Comment on above: Performed By: #### C BC #### [facility] [address] [id number] Nelida Kimbleen WBC 4.9 103/ul Normal 4.0-11.0 [facility] Comment on above: Performed By: #### C BC #### [facility] [id number] STROKE HEAD WOon 02-24-20 [...] JANESSA SKINNER Date: 2021-02-23 13:52 Normal [facility] ER URINE PROFILEon Bilirubin Ql (U) Negative Normal NEGATIVE [facility] Comment on above: Performed By: #### E RUR #### [facility] [address] [place] [address] Nelida Bautista Clarity (U) CLEAR Normal CLEAR [facility] Comment on above: Performed By: #### E RUR #### [facility] [address] [place] [address] Nelida Lily Color (U) LT. YELLOW Normal YELLOW [facility] Comment on above: Performed By: #### E RUR #### [facility] [address] [place], [place] [phone] Nelida Lily ERUAHD A micrscopic examination will be performed if indicated. Normal [facility] [facility] Comment on above: Performed By: #### E RUR #### [facility] [address] [place] [address] Nelida Lily Glucose Ql (U) Negative Normal NEGATIVE [facility] Comment on above: Performed By: #### E RUR #### [facility] [address] [place] [address] Nelida Lily Hemoglobin Ql (U) Negative Normal NEGATIVE [facility] Comment on above: Performed By: #### E RUR #### [facility] [address] [place] [address] Nelida Lily Ketones Ql (U) Negative Normal NEGATIVE [facility] Comment on above: Performed By: #### E RUR #### [facility] [address] [place] [address] Nelida Lily LEUKOCYTES Negative Normal NEGATIVE [facility] Comment on above: Performed By: #### E RUR #### [facility] [address] [place] [address] Nelida Lily Nitrite Ql (U) Negative Normal NEGATIVE [facility] Comment on above: Performed By: #### E RUR #### [facility] [address] [place] [address] Nelida Lily pH (U) 8.0 [pH] Normal 5-9 [facility] Comment on above: Performed By: #### E RUR #### [facility] [address] [place] [address] Nelida Lily SPEC GRAVITY 1.020 Normal 1.005-<=1.025 [facility] Comment on above: Performed By: #### E RUR #### [facility] [address] [place] [address] Nelida Lily UA PROTEIN Negative Normal NEGATIVE/ TRACE [facility] Comment on above: Performed By: #### E RUR #### [facility] [address] [place], [place] [id number] Nelida Bautista UR MICRO IND NOT INDICATED Normal [facility] Comment on above: Performed By: #### E RUR #### [facility] [address] [place], [place] [id number] Nelida Bautista Urobilinogen Qn (U) 0.2 {Jose Carlos'U}/dL Normal 0.2 - 1. 0 [facility] Comment on above: Performed By: #### E RUR #### [facility] [address] [place], [place] [id number] Nelida Bautista POINT OF CARE GLUCOSEon 01-27 Glucose [Mass/Vol] 95 mg/dL Normal 74-106 [facility] Comment on above: Performed By: #### P OCGLUC #### [facility] [address] [place], [place] [id number] Nelida Bautista PREG HCG QUALon 02-23-2021 , QUAL Negative Normal NEGATIVE [facility] Comment on above: Performed By: #### P REG #### [facility] [address] [place] [address] Nelida Bautista PROF 14(COMP METB)on 021 Albumin [Mass/Vol] 3.6 g/dL Normal 3.5-5.0 [facility] Comment on above: Performed By: #### T HAYDE CMADM, CMP #### [facility] [address] [place], [place] [id number] Nelida Bautista Albumin/Globulin [Mass ratio] 0.9 {ratio} Normal [facility] Comment on above: Performed By: #### T HAYDE CMADM, CMP #### [facility] [address] [place], [place] [id number] Nelida Lily ALP [Catalytic activity/Vol] 103 U/L Normal 38-126 [facility] Comment on above: Performed By: #### T HAYDE CMADM, CMP #### [facility] [address] [place], [place] [phone] Nelida Liyl ALT [Catalytic activity/Vol] 35 U/L Normal 9-52 [facility] Comment on above: Performed By: #### T HAYDE CMADM, CMP #### [facility] [address] [address] Nelida Lily Anion gap [Moles/Vol] 13.3 mmol/L Normal [facility] Comment on above: Performed By: #### T HAYDE CMADM, CMP #### [facility] [address] [place] [address] Nelida Lily AST [Catalytic activity/Vol] 28 U/L Normal 14-36 [facility] Comment on above: Performed By: #### T HAYDE CMADM, CMP #### [facility] [address] [place] [address] Nelida Lily Bilirubin [Mass/Vol] 0.2 mg/dL Normal 0.2-1.3 [facility] Comment on above: Performed By: #### T HAYDE CMADM, CMP #### [facility] [address] [place] [address] Nelida Lily Calcium [Mass/Vol] 9.0 mg/dL Normal 8.4-10.2 [facility] Comment on above: Performed By: #### T HAYDE CMADM, CMP #### [facility] [address] [place] [address] Nelida Lily Chloride [Moles/Vol] 108 mmol/L Critically high 98-107 [facility] Comment on above: Performed By: #### T HAYDE CMADM, CMP #### [facility] [address] [place] [address] Nelida Lliy CO2 [Moles/Vol] 25.8 mmol/L Normal 22.0-30.0 [facility] Comment on above: Performed By: #### T HAYDE CMADM, CMP #### [facility] [address] [place] [address] Nelida Lily Creatinine [Mass/Vol] 1.00 mg/dL Normal 0.52-1.04 [facility] Comment on above: Performed By: #### T HAYDE CMADM, CMP #### [facility] [address] [place], [place] [phone] Nelida Lily EGFR-AF MONTENEGRIN >60 Normal >=60 [facility] Comment on above: Performed By: #### T HAYDE, CMADM, CMP #### [facility] [address] [place] [address] Nelida Lily EGFR-NON AF MONTENEGRIN >60 Normal >=60 [facility] Comment on above: Performed By: #### T HAYDE, CMADM, CMP #### [facility] [address] [id number] Nelida Lily Globulin (S) [Mass/Vol] 4.2 g/dL Normal [facility] Comment on above: Performed By: #### T HAYDE CMADM, CMP #### [facility] [address] [place] [address] Nelida Lily Glucose [Mass/Vol] 95 mg/dL Normal 74-106 [facility] Comment on above: Performed By: #### T HAYDE CMADM, CMP #### [facility] [address] [place] [address] Nelida Lily Potassium [Moles/Vol] 4.1 mmol/L Normal 3.4-5.0 [facility] Comment on above: Performed By: #### T HAYDE CMAEJ, CMP #### [facility] [address] [place] [address] Nelida Lily Protein [Mass/Vol] 7.8 g/dL Normal 6.1-8.2 [facility] Comment on above: Performed By: #### T HAYDE CMADM, CMP #### [facility] [address] [place] [address] Nelida Lily Sodium [Moles/Vol] 143 mmol/L Normal 137-145 [facility] Comment on above: Performed By: #### T HAYDE CMADM, CMP #### [facility] [address] [place] [address] Nelida Lily Urea nitrogen [Mass/Vol] 10.0 mg/dL Normal 7.0-17.0 [facility] Comment on above: Performed By: #### T HAYDE, CMADM, CMP #### [facility] [address] [place] [address] Nelida Lily Urea nitrogen/Creatinine [Mass ratio] 10.0 mg/mg Normal [facility] Comment on above: Performed By: #### T JOÃO LOCK, CMP #### [facility] [address] [address] Nelida Bautista TSHon 02-23-2021 TSH 1.157 uIU/mL Normal 0.470-4.680 [facility] Comment on above: Performed By: #### T JOÃO LOCK, CMP #### [facility] [address] [address] Nelida Bautista TSH RANGE SEE BELOW Normal [facility] Comment on above: Result Comment: <0.3 4 UIU/ml HYPERTHYROID 0.34-5.60 UIU/ml EUTHYROID >5.60 UIU/ml HYPOTHYROID Performed By: #### T JOÃO LOCK CMP #### [facility] [address] [address] Nelida Bautista XR CHEST 1 Von 02-23-2021 [...] JANESSA SKINNER Date: 2021-02-23 13:53 Normal [facility] Encounters Encounter Date Encounter Type Care [...] Start: 12-22-2021 End: 12-22-2021 ambulatory JARVIS RODRIGUEZ [facility] Start: 02-23-2021 End: 02-23-[address] [place] [facility] [place] Payers Date Payer Category Payer Unknown [id number] 1985 Unknown [id number] 2.16.84 [id number] 1987 Unknown [id number] 2.16.84 [id number] 1987 Unknown [id number] 2.16.84 [id number] 1987 Unknown [id number] 2.16.84 [id number] 1987 Unknown [id number] 2.16.84 [id number] 1987 Unknown [id number] 2.16.84 [id number] 1987 Unknown [id number] 2.16.84 [id number] 1987 Unknown [id number] 2.16.84 [id number] 1959 Unknown [id number] Summary Purpose Family History No Family History Records FoundNo Family History Records FoundNo Family History Records FoundNo Family History Records Found Advance Directives No Advanced Directives Records FoundNo Advanced Directives Records FoundNo Advanced Directives Records FoundNo Advanced Directives Records Found Additional Source Comments INFORMATION SOURCE (unrecogn ized section and content) DATE CREATED AUTHOR 02/28/2021 [facility] DATE CREATED AUTHOR AUTHOR'S ORGANIZ ATION 12/24/2021 [facility] DATE CREATED AUTHOR AUTHOR'S ORGANIZ ATION 01/01/2022 [facility] DATE CREATED AUTHOR AUTHOR'S ANI CUEVA 01/16/2024 [facility] FOR RECORDS PERTAINING TO PATIENTS WHO [...] CLINICAL RECORDS. [facility] [employer] [facility]. provides no warranty or guarantee of the accuracy or completeness of information in this document.
== END 2024-01-23 10:00 | disposition home or self-care (01) ==
LOC: FBCO 07:00 → FBC 09:06
PROVIDERS: Visit Provider Obstetrics & Gynecology
DX: O99.283 Endocrine, nutritional and metabolic diseases complicating pregnancy, third trimester (principal)
CPT/HCPCS: 59025

== ENCOUNTER 2024-01-27 07:01 | Outpatient (OUT) | payer BC, SELFPAY ==
--- OUTSIDE RECORDS SUMMARY | 2024-01-27 07:05 | XMS_ITS ---
Patient Summarization (C-CDA 2.1 CCD) Created on: January 27, 2024 FABIOLALOCO : 1985 Sex: Female Author Organization Sample organization Care Team Providers Care Insurance Policy Clerk Name Role Phone HAMZAH, DR OLSON Primary Care Unavailable PAY, DR OLSEN Admitting Unavailable PAY, DR OLSEN Attending Unavailable ZIEBER, DR JANESSA Davila Consulting Unavailable PAY, DR OLSEN Consulting Unavailable MELVALANELLY, JARVIS Referring Unavailable JARVIS RODRIGUEZ Primary Care Unavailable NERISSA CAMPBELLRAHMANYAM Consulting Unavail able CADEN CERNA Attending Unavailable CADEN CERNA Admitting Unavailable DAVIN GAGE Consulting Unavailable ZACKERY, MARYANN Attending Unavailable NEELAM, SHAWNA Attending Unavailable ZACKERY, MARYANN Attending Unavailable NEELAM SHAWNA Attending Unavailable ZACKERY, MARYANN Attending Unavailable ZACKERY, MARYANN Attending Unavailable ZACKERY, MARYANN Attending Unavailable Encounters Encounter Date Encounter Type Care Provider Facility Start: 01-26-2024 End: 01-26-2024 ambulatory MARYANN ZACKERY Not Available Start: 01-14-2024 End: 01-14-2024 ambulatory MARYANN ZACKERY [...] Start: 12-22-2021 End: 12-22-2021 ambulatory JARVIS RODRIGUEZ [facility] Start: 02-23-2021 End: 02-23-[address] DOCTOR GOODSON Facility: Payers Date Payer Category Payer Unknown [id number] 1985 Unknown [id number] 2.16.84 [id number] 1985 Unknown [id number] 2.16.84 [id number] 1985 Unknown [id number] 2.16.84 0.1.067434.3.579.2.9 1985 Unknown [id number] 2.16.84 0.1.718731.3.579.2.9 1985 Unknown [id number] 2.16.84 0.1.281841.3.579.2.9 1985 Unknown [id number] 2.16.84 0.1.041494.3.579.2.9 1985 Unknown [id number] 2.16.84 0.1.901956.3.579.2.9 1985 Unknown [id number] 2.16.84 0.1.951002.3.579.2.9 1985 Unknown [id number] 2.16.84 0.1.557292.3.579.2.9 1957 Unknown [id number] Problems Problem Classification Problem Date Documented Da [...] Coding Summaryon 12-31-2021 Coding Summary HTMLBase 64 LzpqhgejVJz1jUv+PGhl YWQ+TR8DPNNzL13zhCCi xO6FE5iKRG6ZKMGJJXSD QH5PQD1eoSV5QXvbR0Kn biAv FcutxHHoGD95VCu9TVB3 tDkaMWpqsM0nxUKiX5m3 MiFkIT69nZ93LXrzCLYa PtA9CrRueohebSTq T3wyRdIpxQAiTwd+PHRh YmxlIHdpZHRoPScxMDAl NwQtgBcwMQ2sGc9dAKLx LWNvbGxhcHNlOiBj p0afHZZePWzgYK5lnDrr B4EqzDT9XBIqw2k1Ye07 dHI+IAYjSBX4cDpcZQlg b837JaYbi5wpNMU8 zMDgVJpcAPU6P51kq8J0 SNYzYJKsMAK8gFT1lU2i dWllwpsqB5AqsCKtJfZ4 IQW2nKFcaG2jpZzl whtwbF4oNlh+N42TFX1M TSIESY0EKlw6E1AsZbgx dHI+TX53LDQoQR57iFCj vSWaj2iuzHa6CpSj OHKaWTC3wBflLJerg2Vc KCTeA56cpAAfs7J6JPZy tIgcyNKkIuRbhZY6tB4z FPqkdktyj8nedesg Cmkbh4blcp40rU37K65b CMsuTKVgKJA5IUPrQCBz nShjzr1omE1wDv9+IDxj w1zwi5izbTm2GiGi IMPzteWrfCpoEWL6e5Yu Hn50U6KozBkoc3WdHgd7 on78fDTgg9C4jXC3FLel QHIqkZ7lGPewJfW2 EUQjJiFhsE78lUGfETws Bz4ofZcjcXmiEU8zBALj ewutLRXwxZ6lBNHmbFUs nThmJQ7cAZYizbbm u951KfPaWBW8AYUhgQVx Q3IatT9bUuSoVKXgUKRh V6QifZIkEZqdR541RSjy JiK4VZZotiOkA4Ym IKJunIfdMcW3y4R4Vi3D z5GvwlpwLMJ4GVuxZCY1 CaG1LdMkQbV8M8ReQjl3 QPLnyMeoHP7lN3Ub LAPmknttbrcppMZ9XRHp VZQooO84tFGmADknYk0h q6T9d711EPGaEYXrgR39 Is3mqPfxYBGwdZCD yK0wccwsm3hbexnjXuNk PKDyUBa2XBu2VREqvUio TyAwFLN1PmT2XXK2sCEb kE0riDgfhwxjcZ6p Oyc+E73qyM0yYQS8FSC8 svnhRJEbuvBqYC64BG59 O1NdKyqsxJDypJX+PGRp rfIsmTixOS2wIiFp n4rne4QhXEjhG2QgLYXl OJwdLmo9NISxGBO4bWR9 zZ6kBXFiMZqoo5C2pGM5 I2CmsnNkip2ir7ne INMzERokJ25ebSFqj7C3 TZBhjXH4BFYpkKxaYzMy dN74Nta+WWZmoAalm7Os Dxmfv3hwo8hzzKq8 IjMwJSIgdmFsaWduPSJ0 r6ExUx23E10lFOmbSMGg GKFoXHByGWNzuKywpp8f wZ0yTh2+PGNvbCB3 uMK6rO8qFQSxLdG5DKya Y677PxBvkXLgJugdx5xl d9wliHz1HtOsYSYlruGv hHlpFUA4p2VcDn14 T20oQAvyRRHpFFHbSANa GBOlkMriax8mvH2zAq0+ HP3lx6ezkq61cX48yFX+ YNAhBZO1jWydQSwp DICyoU9yMYtzDgK6DCAj KlLbcS68mNTvMDvkTt8i fKmshQhtSI9tFKQaqdae r090NuWln8lnDROk fDJeDZejLHH4C40aq7C8 CKRfNWRuCDW5nDX8fX7x bGlnbjogbGVmdDsgdmVy dAdqCLtnXLjyG809 IHRvcDsnPlBhdGllbnQg RyXrSFr4C3MyVuo1XVUg oHusBM7oqAVzTWpxPo4z pCkvqWjzDB9bEGOk rrwig035ZoMry0zuUJGu aKTtFCvfOEU3H75mx3X3 PQVjZZIgTVK6hND3hY0i bGlnbjogbGVmdDsg veFnhYcjRFjsRLehT505 IHRvcDsnPkJpcnRoIERh sRT0DB17QM57vLYyy0Q5 yYE3X0KnOCZokjfo zfhkmLC7HLZyMKIenI09 Xm7inQfdDn8mGIJdPHN7 RHHrdFTlZ2JjlN1jAwDd MBLwPYWdJ1NpnXTh ELfbQ092YOvqInK8GGIm vqVlM4ApBANnxTltYjY6 k3L8Ri6ZV8Z9MX30BL34 tXIfi4B6oJY7M6Lt SBSzutjugjmukIE0SEKg IKZwqE99Tg9fwGwrCf0s XFXxEZB5ILVpbVSkW3Mh gW3dObTxRVHhYLPu D7GpoTRlUVbtX660QWzx WvY0POBvddGyB8NsXOOv wFkgHhM3i9C1Zs3GPUb4 VT93AR50cAOsd2N2 dLV1Z8VmVQUphznuqzju dVN4UNPpIILvsF21In3z hRfnIw9dPAMvKTO4KYUx gZXhB1UwiL6vHeAh DBTcNWVoE1KclOBePApu S843RMaoZvR9EBUsgfQx S4TiSWZknBlwBoY6z9Z5 Rs3ZMSWbRW72PDN4 zOW0AH47ME72P8FnSqap dGFibGU+PHRhYmxlIHdp ZHRoPScxMDAlJyBzdHls HZ7qYo1oBFLpBINi nWfiuUKvDuDif3tlKJHw IAgvQZ1noIlaV8XgtYZ9 UYJuj9v8Pa72P73vP0Uw dXA+SYHjaON8gBY8 fY0fMkUgHvH7LWijJ947 YvCbgYVqGyydz6rbn3vc nUx0HlK8USFlofWemNho NPW1o8OySl98I48r IHdpZHRoPSIxNSUiIHZh vWjhfx2wuT9xHb8+PGNv pCS7lZZ9yU1cEuAaLmD0 JZiuV606EnSsoZYf Vjjqc2sid2hokKr8TaBk YIEvkgCobMcmTFT7v5Pb Ea70Y4LphDjey0NxWmt2 xh32xECyt9L7yXZ4 K6NcKJNjsyhorWElxAkf XP3yKNRqcoymLXVsmL5a QRIgW8y8XqXtNnB7LOfj R5KeflM6EACcxBUp XDrfLTL4V34km3R7DSKf AJSgNYU3kSD6dO2iaHgt bjogbGVmdDsgdmVydGlj XMyuKEymG753VXNv kGsqHHMhdT8uTUYyvQVs vEggHH6gCTIzfylnKrsB MLSFKGCGDPRSAnQXBQ97 MK29uSXwy0S7cBD9 A3KeFEEywdrfcimyhDW6 KHSlTFRxxZ76vUDnWHaa Mk3ld3C1h787NTMgMVHo rD41Xt3oiVijFFNz iFQMrI7mrdacf6dsbqdf GmGlHVFxHZl4GAc1LJZg oHhgReBkCTE1AfC0BIM9 hNGytU7piUneetxd eX2iUmt+MDEvMDgvMTk4 ODwvdGQ+ASMqEIL4yRql TZwfMLCwlE1sYIGiE6m6 HzWnWeJ7DTziJ3Df OSFfgubaFx07eD6tCfTm BpM8KWlyG0DotzL8JJSx eGRcDOjaUOR8N98dn0K6 OGUhLVWvQOT3nWH0 tK1orBdtqmwvxTHkzZor pmExmMmlPBizIHnxX576 CGXylMjhUiW8IHeoHAUa LO48YA28bIPhc4S4 lYY7S4AmTFYoexvphjdw gHV4KADtZGJqoK38pMTv JLyeZg4lm8F7h833ZVEy OKTkrZ18Qu7yxYwz MVQpjENWkG6wewncv2rm tbkzVeQdJGQcSHg4EMs9 YIUevThvNlLwHHG9GcB8 NOT2pMSmlG0kmSrr mywqaZ5pJvh+RkVNQUxF FP95AC88sIPok8X8bDT2 Y3LeSOTpdoinwzaweDL2 MQEkJTIcfE11bEMx IQogWq9lb0E6y636LRJo XOOqlM64Xk1ohItbELDr vDKLuJ2msetig2roljyi KaCeQNUaANp3ICn1 MXEhcPfrKoRxRGS1WcE2 ZRA6eZDdvV3pdRufgevq fD9eUop+US2kitpyhyQ8 DG02TB62A8HfEjak dGFibGU+PHRhYmxlIHdp ZHRoPScxMDAlJyBzdHls AA0nGm1sHDMyIEPdaCjx gPJnQpWdn1geRCAn OUhqFF3jrZvzH6BbiQG9 QXTii3j0Iw05P56nU2Tb dXA+TJVvmZK7yZE0mR5z UzVdEyI0EHqiR525 NnZgdCAlKiuyz8mmb3zs fVu4AiMnJHRhnuBcyVzh PSU7i3EnQr95J51qYVbn ZHRoPSIyMCUiIHZh dEjslh9ssW9qEx6+PGNv oFY8hCW8dY9pVbXgYjS4 LVooP642JoXbxKCiJodp O15sV5PyhMK+PHRy Kmt4XEPuiVewHA5dbJFf KNrdAs9xLYC5NeXaNuYu DKctN9YiHDPatrszvbat lWQ6BPTjSIYydQ20 Xs4jhIzyNg5tTFYwARK9 FLDhyQTcC0MnkZ4kOoEw DOItLZSbG6BwpLNqQZqw P028YIneLkR2LLAi acUdP0RhIARvkDeqSpC8 c4X1Gr4RnJhifQOsSB5m QpCtOQu1O7LxNzq9JCLn nGiaVY5ugDZcDWvp Yr9csZvutWysWB6vSGAd wmksq469YeLtp4amLPTq wZHyFAnbTDJ4Q96ik6S0 NIVrNSDaRUZ3gKQ7 cA6dyDevhapbhMTxeFro xvGrtQwmXVezAPuzM422 HWAooGrvDfWCGhl5S7Bu Nhk1KGWrcThsHM7s kYMsCIfeBj4fbCbtmYlp YG1uURPlabsny989UgQh l1slPFQstDLaPDpzPAI6 E97ld7T9NXAuTAVy BJD0fYH2zC1btXnhdqvy bGVmdDsgdmVydGljYWwt GMkjO638ZOBrpBufGj4S Pwv1P3SfDyw5GNLs jXubME2llRFqETntPm8u nZqsrPccJD7jYOIripvu d741KuExj6gzDSLvpZNy SUqiYHD8J54gf6E3 KUVzKTErRED8lNK1yV3v bGlnbjogbGVmdDsgdmVy mLrlSDxfMZdwG398ACKg cDsnPlBheWVyOjwv dGQ+OA30yn94Y4IwFmoh Bwg0IJNoZPB1eYG0vX3l OBWrAOeot4Y4hFZ0G2Jo noMxka3do3lpQIOk ZTo (more content not included)... [facility] Coding Summary HTMLBase 64 RkxdnynmJCe1jMz+PGhl YWQ+XY6UANXrF82iyARg kI3GX8xWQQ5SOZTQMJUW PO8EEH3znUT1YNilE3Mt biAv HnagyOTfYY93LWk6NMZ3 wOizQKyyvY6xyXSgW3h1 WcTlQN39gE99ZTjbRUOa FtD0PfMshclqpHIz C8ahToZvaWNkNzm+PHRh YmxlIHdpZHRoPScxMDAl RlDunMteFK0hEe1fKTPn LWNvbGxhcHNlOiBj g2eoVKKtOKjlUD7ymKie F2GedGH5UNUcf1z9Gu89 dHI+JNFyAZU3dDdgPGks s118KiIsm6cpVDY3 qKIcBVxbTZV5U90vs5C0 ENZgIIFqTGK6tWL6sY0o vCawtuapX2PyyXPeYuB3 VKN1yERtnJ0xgZff ltxhzR7xRmw+D04IRH0M ITXXDC2YBiv2F8ApKfmr dHI+LI78JDVnSJ56cQAe sJIkl6yywIt0XsWf ONIpWYK2qJtzKJssj0Xa LTHuN69whVDsf1X4ZQKx fSputBAgKjYorUH7zJ1j VQlpuijuv4yobtbn Ltrsa8tcfl84mH47R53k VSfuMBXoWST6QCLyWHRx tNljke2hqL9nDz8+IDxj h4bhq1lswWm0GtIo LSJfhfGnaQxkSSZ9p5Vm Ju77G4FilEdwd2IlRus2 tn68xVIlr2V1fVC8KIkh JFWybD6eSDdaQiB1 EFEvUkGbaA81xAMpYKev Vq8gkKxvgMllJA2uWBPm ugpuCRZbxO0bSCMfoDYe xXgkJO4eXQItcwac z068LzGcZBB2HSJgdHZu L8KsfC3hJlVfZTDhZSRu S7LyhXFmHHzdX455KTxa ErE0AOXpyhQwG6Tv NTIzxCdtFqD2q5E8Hj4H u0ZfdsstEWY9DPdnUZQ2 ZzC1RrGoBlW0I9UuBht9 MRDeeIxbPN2jL6Nn URFaouzswssxbGL7USOw UFLdvV93sXHdPAajYk4f j0Q8k783SYFdMGDykG65 Ov4cqZcoIJDxwIZL sX7ycauyp5jfyszpMzIo AMYgTRt4VGm1QPMbuHxb EhBoWEJ4RyK9ZQC6nMEs jK0kbHwsaspweI5d Oyc+Z71idA5cNPH6ZRP5 vxazQGXlgiVkZK12PX87 J8ZlDahuwONyeXL+PGRp drTtzQfuTH4iDgOb n7sav9OxLXbmV2WcFTDh AXhdUau7SSYdYQP3uIQ6 vN3bJZKpEIvhx5N4hRN0 P9MeqtTmfb3vw3mt TRQpMQijK30xpDBar3J6 IKJidOU7MNEmcYdfRvWd iP63Bwa+FHVbiKsee0Xo Rrulz6rgb5tafWs9 IjMwJSIgdmFsaWduPSJ0 b8HtYd43A27wXGeyGPNb UXZrNZZyXHHoqYljoe5t dM8dOc3+PGNvbCB3 wFF7oF5nBHQrYpU0YBmh E768NfQkwPHwTzelv3zo u6efuEg4QzAePPElewXj fKwzCRB6g1FjWq12 M42gGPvtWUDaUUPgKVBd XXTvqGdvju9ncD0jFx0+ PB2as7hjmv85bJ97uBW+ SSPlCQW1zBxoWQiz LALryZ9sLPgpQxX7KGUg ChHwqC08xEKfXFmrBo2u vAdqjMwaCC0sOPVgvtbu l113VpLrp4nwKUFf oRPrEAmrBJZ2F34va7X3 SLEoZSArVIJ5uWW3dX3m bGlnbjogbGVmdDsgdmVy nMcsUVljYVmuX579 IHRvcDsnPlBhdGllbnQg IyXmLKj4J7AcGph8MQLl cCskPY0gbDFsOPvrQy7c uMihsEwkFT5nABEa baxjp828XdRvh2jyMCJv eBZoJHygIHJ7V91lf8E2 WSBcYHVqMUU1pOG7fZ4e bGlnbjogbGVmdDsg gdTxxXjyAKrvOLnkD662 IHRvcDsnPkJpcnRoIERh uDW2PP42IQ89kWBtk5I5 oTD1Q8LlRNSikgbb qdirvFO7SPAjBOTrmD08 Bf4iaGydKz8yNBFuTQY0 ULAqlURaJ5RzlP7wGyOv SSNaGRGzI1OrfXOq BNmwV860UIgiPjM1ECZd szTwL0PbYEUspIlzFpS2 e8J0Ay1ZQ3H7FW88KR72 wBSyt1C0cEY3T1Zf SNOtmhtbtutqvDE8VEVy MBFhsZ31Fy8vcZaaLw7w NFOoEPF8QEFxjVFmZ6Ql rR5nWrRpADHzODKq F0KdsPWsKJjnZ195ZAdw WsQ1CDOfjhIqY2QvFOHb sHtxXzW7h9F4Xt9RCUw4 IA71IT01gDPkc4W2 vZT1Q7ZfGWOwjfwzmwym mND8VBZfVIIywP83Yh9k dCxpRk0fMDXwUGT7UQKn bVNsF6BxmP1zQxRi KBSgIOViN2XljCRdUJxs U372JRvqEgP2YBExpnDj A5RlVWPuoAhoZkR1f6Q9 Oc1STLNhYM79LFX4 sGQ6FO03AN42P5CwSjet dGFibGU+PHRhYmxlIHdp ZHRoPScxMDAlJyBzdHls QV9pRe9iBSSsFIKp iGenkWDbFaEue8qzVMYp ENoxTS8dfHhuX5FyzKL4 JRPdm1m0Ct53P12zJ0By dXA+FODfiDR0wWV8 uM3dUfSpKhF3MVkuI170 PyJsdHKkIhmhb5xyj6pm pMo5KuZ8USXqbgArcIzi HYD9c9OlEl01I99e IHdpZHRoPSIxNSUiIHZh kHvtjf0rzM6xMl6+PGNv vES0kPO7lW5lQzRrRrH5 XXvdZ043QaCgzLKk Emqry4jlp3knzXu6NbKt NDAuqjFcoSrjAMH7c8Kq Ba91R5QbtCivm4IzPja2 rd19vGXvs6X1iQY7 F4LuOPDimtgbjLLzwUou EQ0rFTFlybtxIJOxkX4g APIrF6j8UmVrThR1LAfe M4RdhgH8IHYfpTGv YPiaXGB2O66gn7W6HHXx JGZcHUK5oDB3zJ0kbMkx bjogbGVmdDsgdmVydGlj WEoyBYcvY679DDPr tQoeVCDtqJ2jRVWjmUVh yEinLP1cXZQenghuTaxH CJDSBSKNVEGIIxJKQE60 RU41iLGfn6X4hDP6 Q3EyGBCmhjbxxfefeAR2 AADfOGOuxP15aEEqLSmo Tb8jx2S1m135IXSuRCUx qQ81Es7erAgrUPRg hNVNeQ4nkqjlb4pppccr WxTuSYSgWDr1RRl2GJCq gLxlGzViMVA8DfR2POM2 oLAfjY9fmPwzxnme oJ7uHya+MDEvMDgvMTk4 ODwvdGQ+HBAfDQE7xLpa FGlnIRNvxD9fRHNyN0u4 KtXgLhC9INhcX5Hv VODsawjlEe79nB8zNjOl BfQ1NNdbQ2UznqP7MNZy sGWxHSdqXVJ2V48ik6U6 DGJdQSZySQV6gUW6 xM1kiDtwolevwTJweAlj gkWemTqrFHwmNEwyQ122 AFRbgNtaNlI3IVslABGc CV16ZH14kXLzs7T0 dMV3C9DvZXUjxigwbegl pYN0NQXwDMWrkN67rXVg QBmtNj5gx0J9m714XESq YESmdW99Vc5inFah NYJqjEKWlX1lveokk4vu gfbbDjNjVDIgEAn6HJq7 IQUdiRvrMjCvPWK0RzG3 XYU7zIRaoJ0ymBoh jnospI4nXrg+RkVNQUxF YB40DI38pZTcp3Z9zCL7 L0KpBRXfewbguwyuvXN5 HZJuQSQogS20mTZz GJleTp8hs6E4w012IVKp BDFuiB44Wk0tzZbsSTPd pEXZxQ7rsysjf4juyfrk QuUyVGFaMDd7PQf2 OPKyrJeiHpGmIYD2EbS3 ONE9hRUypH5ajScthxzb aH4fFun+V4J1W3VxElhg dHI+RD21QPWoIU74 qYUwhHRvw0vjmQu0UwQr RLJnNMG6yBnqYYpoo8Nt AGZfV80hmAFmo6Q9EJZz bGxhcHNlOyBlbXB0 fK3vNWbqdiilx8glioei Aojtz5rpoy52uV69H10z IHdpZHRoPSIzMCUiIHZh mGyhoh8jkH7yBv6+ FNOxfUK8dPP8lT8cLwMp HmV7ZNliL331JdHkxDSc Uszrf2rtm7jpdUs5RiGo JSIgdmFsaWduPSJ0 m2OaBw32D79sRYnqCGNl TITlPIFhTFTmeGlfze3v pY7eAv0+PU6gl7lflb81 qG79kKW+PHRkIHN0 kOjnZEvdHMTglD3vSDbe WuO8LXIuNsZvdR85cJSj FQgyKn9goBrlwShqSX5p HFRwfsnul618GiYd s1mdLZAlqGWuEYofFFH9 S31zj6X3GRZwRQVvZZG0 pFF4hH9vbZtgqwlwlBKj dDsgdmVydGljYWwt LOvjD044ARJpdDxoMuFu qNRyC8ysnkRPLC0hZeyf dGQ+NYHtYPO8gQatWBvk IBVjcV7lORQkG6d7 MsUdSaG4OYfqS8CrunI7 RKQzeKHyVEVutNADuH2p jhryc9ectwptSkMuZXIp EEa5CWe4CBIgsMfs SqEdPAC4AqN2QGQ9aJGs tA6hyGbgpsrlgI0mGit+ RklOOjwvdGQ+PHRkIHN0 yFntTWcpDDVatA3s WLCpE2r4EaUkXmI1OHgb Q9JqvcW8FHQqwZJnWAWw hYZUiR3eumfby6pubbzs VsJtWNQzMOl0EVu5 JQYneSflUsJgZNR9HbL5 UON4hDNlmL5rfWutheao bH1wFli+TVJOOjwvdGQ+ YPKqNXT5vVsnAZxy PSVgjL3lALJjM8k5JzDj GcH4JElnS1CkttV1MYYl yWTkSVXhcEIHrT5nsiqy h4hxafltKqKyTJQi RSz9BVm4URXlhStqXdAp IWC4WmB9KUH8zXMfeY8m bUvtfblyeD6fLwq+UGF5 XMM7FS94XZ11M1Pa PjwvdGFibGU+PHRhYmxl IHdpZHRoPScxMDAlJyBz eEuaNP0hCm0dMQPxGAXk rInznGCfAnEmx4yc YXB (more content not included)... [facility] Noteon 12-26-2021 Ambulance Note [id number] [id number] [facility] ED Clinical Summaryon [address] [facility] - Emergency Department [address] [place], [place] [id number] ED Clinical Summary PERSON INFORMATION Name: LOCO HICKS Age: 36 Years Sex: FEMALE : 1985 MRN: Acct#: Visit Reason: Dizziness; FACIAL NUMBNESS, DIZZINESS Arrival: 12/21/2021 18:23:41 Discharge: 12/22/2021 00:02:00 LOS: 000 05:39 Check In: 12/21/2021 18:23:41 Checkout:12/22/2021 00:02:00 Address: [address] [place] [id number] PCP: Provider, None PROVIDER INFORMATION Provider Role Assigned Unassigned Alvin Bryan ED Provider 12/21/2021 18:26:52 12/21/2021 18:30:20 Sanjuana Ramirez LIME SPREADER Nurse 12/21/2021 18:29:17 12/21/2021 23:14:12 MARIAJOSE EDEN ED PA 12/21/2021 18:30:25 Kerline Cartagena LIME SPREADER Nurse 12/21/2021 21:46:32 Kerline Merrill RN ED [...] - pharynx pink and moist. NECK: -Supple ([id number]): non-tender. CARD: -Rate and rhythm: Regular -Edema: No -Calf pain: No RESP: -Respiratory effort and chest excursion with respirations: Normal -Breath sounds equal bilaterally: Clear -Wheezes: No -Rales: No BACK: -Signs of pain with movement: No ABD: -Distended: No (more content not included)... Normal [facility] ED Patient Education Noteon 12-22-2021 ED Patient Education Note Education Materials [facility] ED Patient Summaryon [address] [facility] - Emergency Department [address] [place], [place] [id number] PATIENT DISCHARGE INSTRUCTIONS Patient Information Name: LOCO HICKS Age: 36 Years Date of : 1985 [facility]: [id number] Reason For Visit: Dizziness; FACIAL NUMBNESS, DIZZINESS Arrival Time: 12/21/2021 18:23:41 Primary Care Physician: Provider, None Attending Physician: Alvin Bryan Comment: Visit Diagnosis: Diagnoses This Visit Dizziness ([id number]) Paresthesias (R20.2) Visual disturbance (H53.9) Prescription Information: If you have been given a prescription for narcotics, seek immediate medical attention if you have any difficulty breathing or any sudden status changes such as confusion and sleepiness. If you or anyone you know is experiencing suicidal thoughts, mental health, alcohol and/or drug addiction problems; contact the [facility] 17/02 Crisis Hotline -Text 4HOPE to 372759. If you received any narcotics, sedation, or [...] and treatment you received today in the [facility] Emergency Department were for an urgent problem and are not intended as complete care. It is important for you to follow up with a doctor, nurse practitioner, or physician?s assistant producer for ongoing care. If your symptoms become [...] so we can reach you if necessary. [facility] Emergency Department has provided you with a complete list of medications post discharge. 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 MRI BRAIN W WO CONTRASTon MRI [...] Ean Cedillo MD 12/22/21 Final result Normal [facility] MRI CERVICAL SPINE W WO CONT [facility] 12-22-2021 MRI CERVICAL SPINE W WO CONTRAST [...] Ean Cedillo MD 12/22/21 Final result Normal [facility] [id number] 12-22-2021 SARS-CoV-2 (COVID-19) RNA SHELBI+probe Ql (Unsp spec) Not detected Normal NOTDET [facility] Comment on above: Result Comment: Rapid [...] management decisions. Fact sheet for Healthcare Providers: https://www.fda.gov/media/103288/download Fact sheet for Patients: https://www.fda.gov/media/392087/download Methodology: Isothermal Nucleic Acid Amplification Performed By: #### C OVRB #### [facility] [address] [place] [address] Inspector [employer]: Campbell Simmons MD SARS-CoV-2 (COVID-19) PCRon 12-22-2021 Employed in healthcare? No Invalid Interpretation [facility] Comment on above: Performed By: #### 6 [id number] ####[facility] (DEFAULT)[address] [place] [address] Group care resident? No Invalid Interpretation Code [facility] Comment on above: Performed By: #### 6 [id number] ####[facility] (DEFAULT)[address] [place] [address] In ICU? No Invalid Interpretation Code [facility] Comment on above: Performed By: #### 6 [id number] ####[facility] (DEFAULT)[address] [place] [address] status? Not Invalid Interpretation Code [facility] Comment on above: Performed By: #### 6 [id number] ####[facility] (DEFAULT)[address] [place] [address] SARS-CoV-2 (COVID-19) RNA SHELBI+probe Ql (Unsp spec) Not detected Normal Not Detected [facility] Comment on above: Result Comment: Perf ormed by PCR methodology. Performed By: #### 6 [id number] ####[facility] (DEFAULT)[address] [place] [address] SARS-CoV-2 (COVID-19) RNA SHELBI+probe Ql (Unsp spec) No Invalid Interpretation Code [facility] Comment on above: Performed By: #### 6 [id number] ####[facility] (DEFAULT)[address] [place] [address] Symptomatic as defined by CDC? No Invalid Interpretation Code [facility] Comment on above: Performed By: #### 6 [id number] ####[facility] (DEFAULT)[address] [place] [address] Transfer Noteon 12-22-2021 Transfer Note transport called, [facility] called for transport to [facility]. Willie stated will call when back in area from [facility] Trip. [Electronically Signed on: 12/21/2021 22:14 EDT] Nadya Garcia [Verified on: 12/21/2021 22:14 EDT] Nadya Garcia [facility] Transfer Note [id number] [id number] [facility] medication list sent with patient, Complete ED chart sent with patient. CD and med list sent w. patient to Hospital [Electronically Signed on: 12/22/2021 00:05 EDT] Nadya Garcia [Verified on: 12/22/2021 00:05 EDT] Nadya Garcia [facility] .Auto Diff 1on 12-21-2021 Auto Butts % 7 % Normal 12 [facility] Comment on above: Performed By: #### 7 812866, [id number], 0001773, 27218824, 5523592, 5203376, 7551620998, 8828021, [id number] ####[facility] (DEFAULT)[address] [place] [address] Baso Abs# 0.0 x10 Normal 0.0-0.2 [facility] Comment on above: Performed By: #### 7 313543, [id number], 2978602, 26545014, 1193631, 5904405, 3298664860, 1260793, 6518993230 ####[facility] (DEFAULT)[address] [place] [address] Basophils/100 WBC (Bld) 0.4 % Normal 0.2-2.0 [facility] Comment on above: Performed By: #### 7 988580, [id number], 7664277, 93661413, 9379298, 8205043, 4482117332, 0395528, 3533635487 ####[facility] (DEFAULT)[address] [place] [address]6449 Eos Abs# 0.1 x10 Normal 0.0-0.4 [facility] Comment on above: Performed By: #### 7 521285, [id number], 5078891, 76496617, 1765115, 8268677, 6873625656, 6185170, 1459193689 ####[facility] (DEFAULT)[address] [place] [address] 47105 Eosinophils/100 WBC (Bld) 0.7 % Low 0.9-4.0 [facility] Comment on above: Performed By: #### 7 916665, 2719920224, 1984525, 61537374, 4732172, 2564746, 5196691144, 0541193, 5556759762 ####[facility] (DEFAULT)[address] [place] [address] 28187 Lymph Abs# 3.2 x10 High 1.3-2.9 [facility] Comment on above: Performed By: #### 7 735653, 0818302501, 2958134, 85715260, 3152277, 8270370, 6010262179, 7257071, 1359559868 ####[facility] (DEFAULT)[address] [place] [address] 79606 Lymphocytes/100 WBC (Bld) 40 % Normal 14-48 [facility] Comment on above: Performed By: #### 7 308408, 3565583959, 8426389, 18410518, 9366370, 4951142, 5972083121, 0053512, 3144847339 ####[facility] (DEFAULT)[address] [place] [address] 83989 Butts Abs# 0.6 x10 Normal 0.0-0.8 [facility] Comment on above: Performed By: #### 7 658587, 2188243305, 3584843, 75840475, 4606883, 3100191, 9481018324, 5794237, 1638653231 ####[facility] (DEFAULT)[address] [place] [address] 51552 Neut Abs# 4.3 x10 Normal 1.5-9.2 [facility] Comment on above: Performed By: #### 7 093655, 4772423981, 7687884, 62734031, 3997008, 3038022, 1553050700, 4137299, 6365003078 ####[facility] (DEFAULT)[address] [place] [address] Neutrophils/100 WBC (Bld) 53 % Normal 44-88 [facility] Comment on above: Performed By: #### 7 454652, 7709276502, 1736523, 85935935, 0078816, 1109893, 7086128875, 1475468, 4700158420 ####[facility] (DEFAULT)[address] [place] [address] CBC w/ Auto Diffon 2 Erythrocyte distribution width (RBC) [Ratio] 14.3 % Normal 11.5-15.0 [facility] Comment on above: Performed By: #### 7 250166, 8843148727, 2069848, 67665003, 7975482, 2566519, 1146861170, 4758036, 6352789331 ####[facility] (DEFAULT)[address] [place] [address] Hematocrit (Bld) [Volume fraction] 42.3 % High 33.7-40.4 [facility] Comment on above: Performed By: #### 7 212660, 6823371108, 2642630, 27122251, 0600522, 3424914, 7565354548, 8943669, 9366705974 ####[facility] (DEFAULT)[address] [place] [address] 17884 Hemoglobin (Bld) [Mass/Vol] 13.7 g/dL Normal 11.3-15.9 [facility] Comment on above: Performed By: #### 7 038223, 3273480700, 8600706, 16778762, 9832828, 8141100, 0725799089, 2761062, 5671501171 ####[facility] (DEFAULT)[address] [place] [address] Instr WBC 8.2 x[address] [facility] Comment on above: Performed By: #### 7 067706, 3772025659, 6023726, 18710253, 2456437, 4600321, 1077036584, 6962627, 6277198501 ####[facility] (DEFAULT)[address] [place] [address] 13990 Man Diff? Auto Normal [facility] Comment on above: Performed By: #### 7 621334, 6571143009, 1672132, 09349602, 5031145, 4494971, 2963600917, 5670346, 4882641783 ####[facility] (DEFAULT)[address] [place] [address] 02134 MCH (RBC) [Entitic mass] 31 pg Normal 24-34 [facility] Comment on above: Performed By: #### 7 558745, 7871816677, 5735770, 67630508, 8017021, 8373229, 0532707948, 7961910, 5931027908 ####[facility] (DEFAULT)[address] [place] [address] 06119 MCHC (RBC) [Mass/Vol] 32 g/dL Normal 26-37 [facility] Comment on above: Performed By: #### 7 572506, 9799346299, 6538300, 34816142, 5119894, 6266057, 5542820532, 9993581, 6039192601 ####[facility] (DEFAULT)[address] [place] [address] 34066 MCV (RBC) [Entitic vol] 96 fL Normal 81-100 [facility] Comment on above: Performed By: #### 7 889887, 0399099448, 9131070, 61653896, 4185427, 6320302, 4463627657, 3832724, 7262396914 ####[facility] (DEFAULT)[address] [place] [address] 29782 Platelet 363 x10 Normal 138-427 [facility] Comment on above: Performed By: #### 7 943995, 8910818183, 6339148, 59425742, 8482392, 5761356, 7803541854, 7573159, 1442953412 ####[facility] (DEFAULT)[address] [place] [address] Platelet mean volume (Bld) [Entitic vol] 10.2 fL Normal 6.3-10.2 [facility] Comment on above: Performed By: #### 7 420121, 6163422596, 2108076, 40417385, 6574934, 1218903, 7686116453, 0226104, 1392632650 ####[facility] (DEFAULT)[address] [place] [address] RBC 4.42 x10 Normal 3.70-5.30 [facility] Comment on above: Performed By: #### 7 869142, 1866392996, 7273384, 52603894, 3048498, 0634723, 0645989951, 6809530, 1648694839 ####[facility] (DEFAULT)[address] [place] [address] 19048 WBC 8.2 x10 Normal 3.5-10.5 [facility] Comment on above: Performed By: #### 7 298252, [id number], 0367113, 87037206, 1265431, 1515165, 5045389834, 3629751, 4325569816 ####[facility] (DEFAULT)[address] [place] [address] Standardon 12-21-2021 Albumin [Mass/Vol] 4.7 g/dL Normal 3.5-5.0 [facility] Comment on above: Performed By: #### 7 424458, [id number], 0216137, 22042248, 6242417, 7620417, 0603026788, 0012896, 6913592051 ####[facility] (DEFAULT)[address] [place] [address] Albumin/Globulin [Mass ratio] 1.1 {ratio} Low 1.4-2.6 [facility] Comment on above: Performed By: #### 7 045472, [id number], 2910933, 74454800, 3311398, 8149816, 3459543659, 4874833, 6223215991 ####[facility] (DEFAULT)[address] [place] [address] 18536 Alk Phos 99 IU/L High 32-91 [facility] Comment on above: Performed By: #### 7 217795, 3305806485, 6406413, 31895035, 4987280, 6532782, 7820539132, 7866837, 1275085552 ####[facility] (DEFAULT)[address] [place] [address] 39719 ALT [Catalytic activity/Vol] 32.0 U/L Normal 14.0-54.0 [facility] Comment on above: Performed By: #### 7 970610, 0470376482, 4731540, 60002848, 6926291, 8857282, 8397402255, 4129556, 0305121542 ####[facility] (DEFAULT)[address] [place] [address] 55790 Anion gap [Moles/Vol] 23.0 mmol/L High 5.0-19.0 [facility] Comment on above: Performed By: #### 7 744570, 7546205531, 4746914, 91744904, 6429781, 2379756, 9200924171, 2898767, 3014924263 ####[facility] (DEFAULT)[address] [place] [address] 28802 AST [Catalytic activity/Vol] 41 U/L Normal 15-41 [facility] Comment on above: Performed By: #### 7 641838, 5304964767, 1256386, 85791772, 5419594, 4657303, 1831831535, 5606820, 5884145433 ####[facility] (DEFAULT)[address] [place] [address] 13523 Bili Total 0.4 mg/dL Normal 0.3-1.2 [facility] Comment on above: Performed By: #### 7 488524, 3565490148, 9359837, 46413973, 3190916, 8552603, 4386320886, 7909541, 1325807024 ####[facility] (DEFAULT)[address] [place] [address] 65191 Calcium [Mass/Vol] 10.2 mg/dL Normal 8.9-10.3 [facility] Comment on above: Performed By: #### 7 173910, 8622490176, 6734356, 08364974, 4815069, 9762890, 3023041714, 9935034, 8037173542 ####[facility] (DEFAULT)[address] [place] [address] 73975 Chloride [Moles/Vol] 96 mmol/L Low 101-111 [facility] Comment on above: Performed By: #### 7 590918, 6525411507, 6510531, 26350474, 0806880, 4167804, 4222183147, 9341869, 1389521597 ####[facility] (DEFAULT)[address] [place] [address] 62540 CO2 [Moles/Vol] 24 mmol/L Normal 21-32 [facility] Comment on above: Performed By: #### 7 355132, 3634175132, 0730650, 25359376, 5309115, 4063386, 8727486970, 5534385, 6568540284 ####[facility] (DEFAULT)[address] [place] [address] 75303 Creatinine [Mass/Vol] 1.10 mg/dL Normal 0.60-1.30 [facility] Comment on above: Performed By: #### 7 710579, 4430656096, 8000831, 26633881, 8889090, 4666846, 3411333693, 1201256, 5885620413 ####[facility] (DEFAULT)[address] [place] [address] 36779 eGFR AA >[address] [facility] Comment on above: Result Comment: Clinical Product Specialist nathalia Kidney disease could be indicated at eGFRs of less than 60 ml/min/1.73m2. Kidney Failure is indicated at less than 15 ml/min/1.73m2 Performed By: #### 7 567835, 3789670234, 9891299, 14558597, 0063099, 2729692, 1726091013, 8878111, 4368413292 ####[facility] (DEFAULT)[address] [place] [address] eGFR Non AA 57 mL/min/1.73m2 Invalid Interpretation Code [facility] Comment on above: Performed By: #### 7 802337, 9364379448, 8391890, 74491706, 4163552, 2923315, 4243726585, 6902595, 4387971650 ####[facility] (DEFAULT)[address] [place] [address] 72563 Globulin (S) [Mass/Vol] 4.2 g/dL Normal 1.5-4.3 [facility] Comment on above: Performed By: #### 7 853274, 8802857155, 6495993, 29833378, 3398017, 2491316, 5109502018, 5706265, 0440031018 ####[facility] (DEFAULT)[address] [place] [address] 74392 Glucose [Mass/Vol] 97.0 mg/dL Normal 74.0-118.0 [facility] Comment on above: Performed By: #### 7 335696, 6007693936, 3979195, 21893992, 5050689, 6747764, 5923741624, 3398356, 9357330407 ####[facility] (DEFAULT)[address] [place] [address] 67602 Osmolality 278 mOsm/L Invalid Interpretation Code [facility] Comment on above: Performed By: #### 7 431116, 1723216005, 0100307, 17687929, 9995651, 3666174, 8836797903, 1100923, 6005929493 ####[facility] (DEFAULT)[address] [place] [address] 37608 Potassium [Moles/Vol] 3.5 mmol/L Low 3.6-5.1 [facility] Comment on above: Performed By: #### 7 036648, 6542800013, 2763852, 08292639, 9954791, 1594015, 0356293554, 5189045, 1422287961 ####[facility] (DEFAULT)[address] [place] [address] 60451 Protein [Mass/Vol] 8.9 g/dL High 6.5-8.1 [facility] Comment on above: Performed By: #### 7 012952, 7535518413, 8230434, 04587196, 6249338, 7247408, 4543455492, 6146933, 8886670629 ####[facility] (DEFAULT)[address] [place] [address] 20086 Sodium [Moles/Vol] 139.0 mmol/L Normal 136.0-144.0 [facility] Comment on above: Performed By: #### 7 824314, 1905263869, 0953144, 50183607, 9476825, 0660801, 9543555856, 3968361, 0502037097 ####[facility] (DEFAULT)[address] [place] [address] 31226 Urea nitrogen [Mass/Vol] 15 mg/dL Normal 8-26 [facility] Comment on above: Performed By: #### 7 521158, 8364391478, 8338818, 13744598, 3648393, 3146648, 8444108370, 6943170, 7923766583 ####[facility] (DEFAULT)[address] [place] [address] 79118 Urea nitrogen/Creatinine [Mass ratio] 14.0 mg/mg Normal 4.6-16.2 [facility] Comment on above: Performed By: #### 7 612026, 8247946683, 9048855, 30215854, 4147032, 8278782, 0583528470, 0710755, 2503976549 ####[facility] (DEFAULT)[address] [place] [address] Head or Brain w/o Kirk ton 12-21-2021 CT Head or Brain w/o [...] 12/21/21 9:19 pm Technologist: Erwin CHAUDHARI Normal [facility] D-Dimeron 12-21-2021 D-Dimer 0.49 mg/L FEU Normal 0.19-0.50 [facility] Comment on above: Result Comment: The [...] Liver cirrhosis ? Performed By: #### 7 296995, 0405366566, 6718423, 86046571, 1294260, 9003969, 7769741471, 6074116, 8067885897 ####[facility] (DEFAULT)[address] [place] [address] ED Note - Otheron 12-21-2021 ED Note - Other paging Neurology through [facility] for consult for Mariajose LLANES [Electronically Signed on: 12/21/2021 21:12 EDT] Nadya Garcia [Verified on: 12/21/2021 21:12 EDT] [facility] ED Note - Other Neurology called back from [facility], on phone with Mariajose LLANES [Electronically Signed on: 12/21/2021 21:29 EDT] [facility] [Verified on: 12/21/2021 21:29 EDT] [facility] ED Note - Physicianon 2021 ED [...] - pharynx pink and moist. NECK: -Supple ([id number]-tw-rxulb): non-tender. CARD: -Rate and rhythm: Regular -Edema: [...] I di (more content not included)... Normal [facility] ED Note-Nursingon 12-21-2021 ED Note-Nursing Tip Mender assumed care for pt at 2124. Pt had fluids running at that time. Will continue to give the rest of the liter per VO from MARIO ALBERTO. PA also stated that after speaking with neuro, pt is to be transferred to [facility] for MRI and further evaluation. Normal [facility] Ethanol.on 12-21-2021 Ethanol Level 9.0 mg/dL High 0.0-5.0 [facility] Comment on above: Performed By: #### 2 [id number] #### [facility] (DEFAULT) [address] [place] [address] Extra Union 12-21-2021 Tube Collected Yes Invalid Interpretation Code [facility] Comment on above: Performed By: #### 2 946922, [id number] #### [facility] (DEFAULT) [address] [place] [address] Performed By: #### 7 614964, 6193212099, 4973170, 13180143, 8615423, 4516791, 4803504595, 4935435, 8724905777 #### [facility] (DEFAULT) [address] [place] [address] 08529 Magnesiumon 12-21-2021 Magnesium [Mass/Vol] 2.02 mg/dL Normal 1.80-2.50 [facility] Comment on above: Performed By: #### 7 398956, 1894542936, 1001816, 35264606, 9141828, 7276758, 6827745083, 0126807, 0701665728 ####[facility] (DEFAULT)[address] [place] [address] PTon 12-21-2021 INR Coag (PPP) [Relative time] 0.94 {INR} Normal 0.91-1.11 [facility] Comment on above: Performed By: #### 7 001663, 4955999183, 5663287, 88105829, 1147613, 9723327, 6867415830, 3964374, 1895524429 ####[facility] (DEFAULT)[address] [place] [address] PT 10.2 second(s) Normal 9.7-11.8 [facility] Comment on above: Performed By: #### 7 831004, 6763650615, 3360209, 23871335, 1120702, 9859503, 4746391536, 3590458, 4824439969 ####[facility] (DEFAULT)[address] [place] [address] 39413 PTTon 12-21-2021 PTT 26 second(s) Normal 25-35 [facility] Comment on above: Performed By: #### 7 346286, 0571496211, 7683069, 20848823, 1314185, 8788919, 5766729870, 3337425, 4896875897 ####[facility] (DEFAULT)[address] [place], [place] [address] Test Urine [address] [facility] Comment on above: Performed By: #### 1 943415461, 338356469 ####[facility] (DEFAULT)[address] [place] [address] 81112 U Preg Internal Control Pass Normal [facility] Comment on above: Performed By: #### 1 243469509, 126031003 ####[facility] (DEFAULT)[address] [place] [address] 14706 Salicylateon 12-21-2021 Salicylate Lvl <4.0 Normal 0.0-30.0 [facility] Comment on above: Result Comment: Sali cylate ranges less than 30 mg/dL are considered to be therapeutic. Levels greater than 30 mg/dL are considered toxic and levels greater than 60 mg/dL may be lethal. Performed By: #### 2 732780, [id number] #### [facility] (DEFAULT) [address] [place] [address] 79186 TnI HSon 12-21-2021 Troponin I High Sensitivity <2 Normal <=15 [facility] Comment on above: Result Comment: Male Baseline Delta 1Hr (Note pg/mL=ng/L) <20pg/mL 50-60% >20pg/mL 20% Female Baseline Delta 1Hr <15pg/mL 50-60% >15pg/mL 20% Other Baseline Delta 1Hr <18ng/mL 50-60% >18ng/mL 20% ([employer] Guidelines February 2018) Performed By: #### 7 807093, 7195185598, 3770106, 59666481, 3160064, 2279623, 4353637298, 2187829, 0922306226 ####[facility] (DEFAULT)[address] [place] [address] 17224 Triage Panel 12on 12-21-2021 Triage Internal Control Pass [facility] Comment on above: Performed By: #### 1 [id number] ####[facility] (DEFAULT)[address] [place] [address] 08541 U Amph Scr Negative [facility] Comment on above: Performed By: #### 1 [id number] ####[facility] (DEFAULT)[address] [place] [address] 05614 U Vanesa Scr Negative Normal [facility] Comment on above: Performed By: #### 1 [id number] ####[facility] (DEFAULT)[address] [place] [address] 13900 U Benzodia Scr Negative Normal [facility] Comment on above: Performed By: #### 1 471484087 ####[facility] (DEFAULT)[address] [place] [address] 02904 U Cannab Scrn Negative Normal [facility] Comment on above: Performed By: #### 1 [id number] ####[facility] (DEFAULT)[address] [place] [address] 07949 U Cocaine Scr Negative [facility] Comment on above: Performed By: #### 1 [id number] ####[facility] (DEFAULT)[address] [place] [address] 54164 U Methadone Scr Negative [facility] Comment on above: Performed By: #### 1 [id number] ####[facility] (DEFAULT)[address] [place] [address] 47282 U Methamp Scrn Negative [facility] Comment on above: Performed By: #### 1 663869117 ####[facility] (DEFAULT)[address] [place] [address] 51341 U Opiate Scr Negative Normal [facility] Comment on above: Performed By: #### 1 023647199 ####[facility] (DEFAULT)[address] [place] [address] 45270 U Oxycod Scr Negative Normal [facility] Comment on above: Performed By: #### 1 [id number] ####[facility] (DEFAULT)[address] [place] [address] 40255 U Phencyclidine Scr Negative Normal [facility] Comment on above: Performed By: #### 1 [id number] ####[facility] (DEFAULT)[address] [place] [address] 63287 U Propoxyphene Scr Negative Normal [facility] Comment on above: Performed By: #### 1 [id number] ####[facility] (DEFAULT)[address] [place] [address] 64872 U Tricyclic Antidepress Scr Negative [facility] Comment on above: Result Comment: Resu [...] PPX Propoxyphene (Norpropoxyphene): 300 ng/mL THC Cannabinoids (07-shn-0-carboxy- -THC): 50 ng/mL TCA Tricyclic-Antidepressants (Desipramine): 300 ng/mL Performed By: #### 1 [id number] ####[facility] (DEFAULT)[address] [place] [address] Urine Source Clean Catch [facility] Comment on above: Performed By: #### 1 [id number] ####[facility] (DEFAULT)[address] [place] [address] UA w Culture if Ind Standard on 12-21-2021 Breakpoint UA [facility] Comment on above: Performed By: #### 1 [id number], [id number] ####[facility] (DEFAULT)[address] [place] [address] Color (U) Yellow [facility] Comment on above: Performed By: #### 1 [id number], [id number] ####[facility] (DEFAULT)[address] [place] [address] Culture? Not Indicated Invalid Interpretation [facility] Comment on above: Result Comment: Resu lt created by rule GL_MAGR_ADD_UA_CULT1 Performed By: #### 1 [id number], 164349515 ####[facility] (DEFAULT)[address] [place] [address] 37144 Glucose (U) [Mass/Vol] Negative Normal [facility] Comment on above: Performed By: #### 1 [id number], 950695359 ####[facility] (DEFAULT)[address] [place] [address] 69856 Ketones Ql (U) Negative [facility] Comment on above: Performed By: #### 1 [id number], 955268231 ####[facility] (DEFAULT)[address] [place] [address] 02255 Micro? Not Indicated Invalid Interpretation Code [facility] Comment on above: Result Comment: Resu lt created by rule GL_MAGR_ADD_UA_MICRO Performed By: #### 1 [id number], [id number] ####[facility] (DEFAULT)[address] [place] [address] 26490 UA Bilirubin Negative Normal [facility] Comment on above: Performed By: #### 1 079953610, 895237780 ####[facility] (DEFAULT)[address] [place] [address] 49326 UA Blood Negative Normal [facility] Comment on above: Performed By: #### 1 [id number], [id number] ####[facility] (DEFAULT)[address] [place] [address] 10045 UA Clarity CLEAR Normal CLEAR [facility] Comment on above: Performed By: #### 1 [id number], [id number] ####[facility] (DEFAULT)[address] [place] [address] 94201 UA Leuk Est Negative Normal NEGATIVE [facility] Comment on above: Performed By: #### 1 355372795, 353427543 ####[facility] (DEFAULT)[address] [place] [address] 82769 UA Nitrite Negative Normal NEGATIVE [facility] Comment on above: Performed By: #### 1 [id number], [id number] ####[facility] (DEFAULT)[address] [place] [address] 83995 UA pH 6.5 Normal 5-8 [facility] Comment on above: Performed By: #### 1 828873079, [id number] ####[facility] (DEFAULT)[address] [place] [address] UA Protein Negative Normal NEGATIVE [facility] Comment on above: Performed By: #### 1 [id number], 286304982 ####[facility] (DEFAULT)[address] [place] [address] UA Spec Grav <=1.005 Normal 1.001-1.035 [facility] Comment on above: Performed By: #### 1 [id number], [id number] ####[facility] (DEFAULT)[address] [place] [address] UA Urobilinogen 0.2 mg/dL Normal 0.2-1.0 [facility] Comment on above: Performed By: #### 1 [id number], [id number] ####[facility] (DEFAULT)[address] [place] [address] Urine Source Clean Catch Normal [facility] Comment on above: Performed By: #### 1 [id number], [id number] ####[facility] (DEFAULT)[address] [place] [address] XR Chest 2 Viewson 2 XR Chest [...] Bowen 12/21/21 9:38 pm Technologist: SRF,L Normal [facility] CARDIAC HUMAIRA ADMITon 021 CK [Catalytic activity/Vol] 117 U/L Normal 30-135 [facility] Comment on above: Performed By: #### T JOÃO LOCK, CMP #### [facility] [address] [id number] Nelida Bautista CK.MB [Mass/Vol] 1.16 ng/mL Normal <=2.37 [facility] Comment on above: Performed By: #### T JOÃO LOCK, CMP #### [facility] [address] [address] Nelida Bautista HSTROP <4.0 Normal 4.0-35.5 [facility] Comment on above: Result Comment: CUT- OFF POINTS HAVE BEEN ESTABLISHED BASED ON THE FOURTH UNIVERSAL DEFINITIONS OF MYOCARDIAL INFARCTION. THE UPPER REFERENCE LIMIT (URL) OF TROPONIN, DEFINED THE 99TH PERCENTILE OF cTnI DISTRIBUTION IN A REFERENCE POPULATION, HAS BEEN CONFIRMED THE DECISION THRESHOLD FOR [place] DIAGNOSIS. Performed By: #### T JOÃO LOCK, CMP #### [facility] [address] [place] [address] Nelida Bautista NGA 41.0 ng/mL Normal <=61.5 [facility] Comment on above: Performed By: #### T JOÃO LOCK, CMP #### [facility] [address] [place] [address] Nelida Bautista CBC AUTO DIFFon 02-23-2021 BASO # 0.1 103/ul Normal 0.0-0.1 [facility] Comment on above: Performed By: #### C BC #### [facility] [address] [place], [place] [address] Nelida Bautista Basophils/100 WBC (Bld) 1.0 % Normal 0.2-2.0 [facility] Comment on above: Performed By: #### C BC #### [facility] [address] [place] [address] Nelida Lily EO # 0.1 103/ul Normal 0.0-0.7 [facility] Comment on above: Performed By: #### C BC #### [facility] [address] [place] [address] Nelida Lily Eosinophils/100 WBC (Bld) 2.2 % Normal 0.9-7.0 [facility] Comment on above: Performed By: #### C BC #### [facility] [address] [place] [address] Nelida Lily Erythrocyte distribution width (RBC) [Ratio] 14.2 % Normal 11.0-15.0 [facility] Comment on above: Performed By: #### C BC #### [facility] [address] [place] [address] Nelida Lily Hematocrit (Bld) [Volume fraction] 40.6 % Normal 36.0-48.0 [facility] Comment on above: Performed By: #### C BC #### [facility] [address] [place] [address] Nelida Lily Hemoglobin (Bld) [Mass/Vol] 13.3 g/dL Normal 12.0-16.0 [facility] Comment on above: Performed By: #### C BC #### [facility] [address] [place] [address] Nelida Lily IG # 0.02 10e3/ul Normal 0.00-0.03 [facility] Comment on above: Performed By: #### C BC #### [facility] [address] [place] [address] Nelida Lily IG % 0.4 % Normal 0.0-0.5 [facility] Comment on above: Performed By: #### C BC #### [facility] [address] [place] [address] Nelida Lily LYMPH # 1.7 103/ul Normal 1.2-3.8 [facility] Comment on above: Performed By: #### C BC #### [facility] [address] [place] [address] Nelida Lily Lymphocytes/100 WBC (Bld) 34.6 % Normal 20.5-60.0 [facility] Comment on above: Performed By: #### C BC #### [facility] [address] [place] [address] Nelida Lily MANUAL DIFF REQ NO Normal [facility] Comment on above: Performed By: #### C BC #### [facility] [address] [id number] Neilda Bautista MCH (RBC) [Entitic mass] 31.5 pg Normal 26.7-34.0 [facility] Comment on above: Performed By: #### C BC #### [facility] [address] [place], [place] [address] Nelida Bautista MCHC (RBC) [Mass/Vol] 32.8 g/dL Normal 29.9-35.2 [facility] Comment on above: Performed By: #### C BC #### [facility] [address] [place] [address] Nelida Bautista MCV (RBC) [Entitic vol] 96.2 fL Normal 81.0-99.0 [facility] Comment on above: Performed By: #### C BC #### [facility] [address] [place] [address] Nelida Bautista MONO # 0.4 103/ul Normal 0.3-0.8 [facility] Comment on above: Performed By: #### C BC #### [facility] [address] [place], [place] [address] Nelida Bautista Monocytes/100 WBC (Bld) 7.1 % Normal 1.7-12.0 [facility] Comment on above: Performed By: #### C BC #### [facility] [address] [place] [address] Nelida Bautista NEUT # 2.7 103/ul Normal 1.4-6.5 [facility] Comment on above: Performed By: #### C BC #### [facility] [address] [place], [place] [address] Nelida Bautista Neutrophils/100 WBC (Bld) 54.7 % Normal 43.0-75.0 [facility] Comment on above: Performed By: #### C BC #### [facility] [address] [place] [address] Nelidajose Bautista Platelet mean volume (Bld) [Entitic vol] 9.8 fL Normal 9.5-13.5 [facility] Comment on above: Performed By: #### C BC #### [facility] [address] [place], [place] [address] Nelida Lily PLT 320 103/ul Normal 150-450 [facility] Comment on above: Performed By: #### C BC #### [facility] [address] [place], [place] [address] Nelida Lily RBC 4.22 106/ul Normal 4.20-5.40 [facility] Comment on above: Performed By: #### C BC #### [facility] [address] [place], [place] [address] Nelida Lily WBC 4.9 103/ul Normal 4.0-11.0 [facility] Comment on above: Performed By: #### C BC #### [facility] [address] [place], [place] [address] STROKE HEAD WOon 02-24-20 [...] JANESSA SKINNER Date: 2021-02-23 13:52 Normal [facility] ER URINE PROFILEon 1 Bilirubin Ql (U) Negative Normal NEGATIVE [facility] Comment on above: Performed By: #### E RUR #### [facility] [address] [place] [address] Nelida Lily Clarity (U) CLEAR Normal CLEAR [facility] Comment on above: Performed By: #### E RUR #### [facility] [address] [place], [place] [address] Nelida Lily Color (U) LT. YELLOW Normal YELLOW [facility] Comment on above: Performed By: #### E RUR #### [facility] [address] [place], [place] [address] Nelida Lily ERUAHD A micrscopic examination will be performed if indicated. Normal [facility] Comment on above: Performed By: #### E RUR #### [facility] [address] [place] [address] Nelida Lily Glucose Ql (U) Negative Normal NEGATIVE [facility] Comment on above: Performed By: #### E RUR #### [facility] [address] [place] [address] Nelida Lily Hemoglobin Ql (U) Negative Normal NEGATIVE [facility] Comment on above: Performed By: #### E RUR #### [facility] [address] [place] [address] Nelida Lily Ketones Ql (U) Negative Normal NEGATIVE [facility] Comment on above: Performed By: #### E RUR #### [facility] [address] [place] [address] Nelida Lily LEUKOCYTES Negative Normal NEGATIVE [facility] Comment on above: Performed By: #### E RUR #### [facility] [address] [place] [address] Nelida Lily Nitrite Ql (U) Negative Normal NEGATIVE [facility] Comment on above: Performed By: #### E RUR #### [facility] [address] [place] [address] Nelida Lily pH (U) 8.0 [pH] Normal 5-9 [facility] Comment on above: Performed By: #### E RUR #### [facility] [address] [place] [address] Nelida Lily SPEC GRAVITY 1.020 Normal 1.005-<=1.025 [facility] Comment on above: Performed By: #### E RUR #### [facility] Laboratory [address] [place], [place] [id number] Nelida Bautista UA PROTEIN Negative Normal NEGATIVE/ TRACE [facility] Comment on above: Performed By: #### E RUR #### [facility] [address] [place], [place] [id number] Nelida Kimbleen UR MICRO IND NOT INDICATED Normal [facility] Comment on above: Performed By: #### E RUR #### [facility] [address] [place], [place] [id number] Nelida Kimbleen Urobilinogen Qn (U) 0.2 {Jose Carlos'U}/dL Normal 0.2 - 1. 0 [facility] Comment on above: Performed By: #### E RUR #### [facility] [address] [place], [place] [id number] Nelida Bautista PREG HCG QUALon 02-23-2021 , QUAL Negative Normal NEGATIVE [facility] Comment on above: Performed By: #### P REG #### [facility] [address] [place] [address] Nelida Bautista PROF 14(COMP METB)on 021 Albumin [Mass/Vol] 3.6 g/dL Normal 3.5-5.0 [facility] Comment on above: Performed By: #### T JOÃO LOCK, CMP #### [facility] [address] [place] [address] Nelida Bautista Albumin/Globulin [Mass ratio] 0.9 {ratio} Normal [facility] Comment on above: Performed By: #### T JOÃO LOCK, CMP #### [facility] [address] [place] [address] Nelida Bautista ALP [Catalytic activity/Vol] 103 U/L Normal 38-126 [facility] Comment on above: Performed By: #### T JOÃO LOCK, CMP #### [facility] [address] [place] [address] Nelida Bautista ALT [Catalytic activity/Vol] 35 U/L Normal 9-52 [facility] Comment on above: Performed By: #### T JOÃO LOCK, CMP #### [facility] [address] [address] Nelida Lily Anion gap [Moles/Vol] 13.3 mmol/L Normal [facility] Comment on above: Performed By: #### T JOÃO LOCK, CMP #### [facility] [address] [address] Nelida Lily AST [Catalytic activity/Vol] 28 U/L Normal 14-36 [facility] Comment on above: Performed By: #### T JOÃO LOCK, CMP #### [facility] [address] [place] [address] Nelida Lily Bilirubin [Mass/Vol] 0.2 mg/dL Normal 0.2-1.3 [facility] Comment on above: Performed By: #### T JOÃO LOCK, CMP #### [facility] [address] [place] [address] Nelida Lily Calcium [Mass/Vol] 9.0 mg/dL Normal 8.4-10.2 [facility] Comment on above: Performed By: #### T JOÃO LOCK, CMP #### [facility] [address] [address] Nelida Lily Chloride [Moles/Vol] 108 mmol/L Critically high 98-107 [facility] Comment on above: Performed By: #### T JOÃO LOCK, CMP #### [facility] [address] [place] [address] Nelida Lily CO2 [Moles/Vol] 25.8 mmol/L Normal 22.0-30.0 [facility] Comment on above: Performed By: #### T JOÃO LOCK, CMP #### [facility] [address] [address] Nelida Lily Creatinine [Mass/Vol] 1.00 mg/dL Normal 0.52-1.04 [facility] Comment on above: Performed By: #### T JOÃO LOCK, CMP #### [facility] [address] [address] Nelida Lily EGFR-AF ARGENTINE >60 Normal >=60 [facility] Comment on above: Performed By: #### T SH, CMADM, CMP #### [facility] [address] [address] Nelida Lily EGFR-NON AF ARGENTINE >60 Normal >=60 [facility] Comment on above: Performed By: #### T HAYDE CMADM, CMP #### [facility] [address] [address] Nelida Lily Globulin (S) [Mass/Vol] 4.2 g/dL Normal [facility] Comment on above: Performed By: #### T HAYDE CMADM, CMP #### [facility] [address] [address] Nelida Lily Glucose [Mass/Vol] 95 mg/dL Normal 74-106 [facility] Comment on above: Performed By: #### T JOÃO LOCK, CMP #### [facility] [address] [place] [address] Nelida Lily Performed By: #### P OCGLUC #### [facility] [address] [address] Nelida Lily Potassium [Moles/Vol] 4.1 mmol/L Normal 3.4-5.0 [facility] Comment on above: Performed By: #### T JOÃO LOCK, CMP #### [facility] [address] [place] [address] Nelida Lily Protein [Mass/Vol] 7.8 g/dL Normal 6.1-8.2 [facility] Comment on above: Performed By: #### T JOÃO LOCK, CMP #### [facility] [address] [place] [address] Nelida Lily Sodium [Moles/Vol] 143 mmol/L Normal 137-145 [facility] Comment on above: Performed By: #### T JOÃO LOCK, CMP #### [facility] [address] [place] [address] Nelida Lily Urea nitrogen [Mass/Vol] 10.0 mg/dL Normal 7.0-17.0 [facility] Comment on above: Performed By: #### T JOÃO LOCK, CMP #### [facility] [address] [id number] Nelida Bautista Urea nitrogen/Creatinine [Mass ratio] 10.0 mg/mg Normal [facility] Comment on above: Performed By: #### T JOÃO LOCK, CMP #### [facility] [address] [id number] Nelida Bautista TSHon 02-23-2021 TSH 1.157 uIU/mL Normal 0.470-4.680 [facility] Comment on above: Performed By: #### T JOÃO LOCK, CMP #### [facility] [address] [address] Nelida Bautista TSH RANGE SEE BELOW Normal [facility] Comment on above: Result Comment: <0.3 4 UIU/ml HYPERTHYROID 0.34-5.60 UIU/ml EUTHYROID >5.60 UIU/ml HYPOTHYROID Performed By: #### T JOÃO LOCK, CMP #### [facility] [address] [id number] Nelida Bautista XR CHEST 1 Von 02-23-2021 [...] JANESSA SKINNER Date: 2021-02-23 13:53 Normal [facility] Summary Purpose Family History No Family History Records FoundNo Family History Records FoundNo Family History Records FoundNo Family History Records Found Advance Directives No Advanced Directives Records FoundNo Advanced Directives Records FoundNo Advanced Directives Records FoundNo Advanced Directives Records Found Additional Source Comments INFORMATION SOURCE (unrecogn ized section and content) DATE CREATED AUTHOR 02/28/2021 [facility] DATE CREATED AUTHOR AUTHOR'S ORGANIZ ATION 12/24/2021 [facility] DATE CREATED AUTHOR AUTHOR'S ORGANIZ ATION 01/01/[address] [place] [address] DATE CREATED AUTHOR AUTHOR'S ANI CUEVA 01/27/2024 [facility] FOR RECORDS PERTAINING TO PATIENTS [...] BE BASED ON THE PRIMARY CLINICAL RECORDS. [facility] [employer] [facility]. provides no warranty or guarantee of the accuracy or completeness of information in this document.
--- NOTE | 2024-01-27 10:05 | US_ITS ---
[address] [address] Patient Name: LOCO HICKS MRN: [id number] date: 1985 Sex: F Assigned Patient Location: [facility] Current Patient Location: Accession/Order Number: [id number] Exam Date: 01/27/2024 10:08 Report Date: 01/27/2024 11:43 At the request of: MARYANN VIZCARRA Procedure: US OB BPP w non-stress EXAMINATION: US OB BPP w non-stress HISTORY:Gestational diabetes mellitus COMPARISON: No relevant comparison available. TECHNIQUE: Ultrasound biophysical profile was performed in the radiology department. BREATHING MOVEMENTS: 2 GROSS BODY MOVEMENTS: 2 TONE: 2 QUALITATIVE AMNIOTIC FLUID VOLUME: 2 PRESENTATION: CEPHALIC HEART RATE: 133.00 bpm AMNIOTIC FLUID VOLUME: 15.30 cm GESTATIONAL AGE: 89 Day US/US OB BPP w non-stress IMPRESSION: Total biophysical profile score: 8 Electronically authenticated by: JANESSA SKINNER Date: 01/27/2024 11:43
[2024-01-27 10:53] VITALS: BP 121/81; PULSE 97
== END 2024-01-27 11:21 | disposition home or self-care (01) ==
LOC: US 07:02 → FBC 10:03
PROVIDERS: Visit Provider Obstetrics & Gynecology
DX: O24.419 Gestational diabetes mellitus in pregnancy, unspecified control (principal); Z3A.34 34 weeks gestation of pregnancy
CPT/HCPCS: 76818

== ENCOUNTER 2024-01-30 07:02 | Outpatient (OUT) | payer BC, SELFPAY ==
--- OUTSIDE RECORDS SUMMARY | 2024-01-30 07:03 | XMS_ITS | CCD ---
Author Organization [facility] Team Providers Care Hot Dipper Name Role Phone NAINAC, DR OLSON Primary [...] VIZCARRA Attending Unavailable SHAWNA RICHTER Attending Unavailable ZACKERY, MARYANN Attending Unavailable SHAWNA RICHTER Attending Unavailable MARYANN VIZCARRA Attending Unavailable MARYANN VIZCARRA Attending Unavailable MARYANN [...] Coding Summaryon 12-31-2021 Coding Summary HTMLBase 64 RnihzdwlZPn1oRu+PGhl YWQ+FR0LBEJnN39bnNFa bY6MI4qCDE1EMUKHVZEM RE5JDI1qbZE3IMbzS2Hx biAv HcrfrIYiTS44LVx1JKX4 uGvpVRdbgN2qvSIjK0e8 VsSzEZ60bH25EZorYMCh UkR1NbLhlbjygJUf D4txUqFmrQXkFob+PHRh YmxlIHdpZHRoPScxMDAl GuGcnCjxRY7vDi8cDTEz LWNvbGxhcHNlOiBj j7ytYRGfRBacDG1egSxu K5AzrZI4EBKzt3n9Ge15 dHI+EQGoRZH2rTflIQcp x597JiUbg3luYEO7 iCXtTEvkALQ5I98es6R1 YVLpUEXaHZC8mBO2aD4s hJcuoqazF2EvaNYkLuV8 OZW5wETpuL0mzZaw kpsdhH4bEvy+U69SUW8B LQMJZW0IJut7I3HdAzig dHI+KO90XPDuRQ77tHZb lHCwk2klxJl8HmMk VWLtCYQ6aKeoEQmjv9Pu DLFtF18tyAZfh3Q1XHIj mIieiKWkFyCaxDZ7sX6a QRcpovjje8wrnppx Pajkt7upmo24rQ07E91d PXsvZOXuYPK3ULRrZGYr qVgnvz3ewF4rWv0+IDxj w8igt1uprAl3CuUr PLArghRszNhqUCJ1n2Br Eg48V7MurZgde1KzWec7 le93kSJud5R5hFF5ZCsi XOZkjS2eWBnhPdT0 BWXqUeQpgB43aAZrBKhn Ht6sxLmciXwzAO6bFLOu flkqGUKiuV3uYGQayPSl kLppUB7hSNSwubvp g376YyNcNSZ9EEVjtNGk Z4NvlK9hThKoAYUqAZIm D4XscZGiKTbzM164TLux ZtM5KLOjweItM1Xl DAVqmAdzGbJ0n0N6Lp5V i6PbaqttWDX3HPopKOZ0 JkP1RbHsEsC9Y2VfCii3 QYKbxPqwEX6nJ4Ek IUPqxtobegsjuBR1LYDi EVWsqS03tTQdJTjgOo2u b5Q8s994NAKnTKAnkA74 Dh4umVgdIIGzsUPO cT4lzusfk8avyqmoUqCc JZYyBOz3VNc3IPRdqDkz BwBwVVS1ByH7RYS3lFBn mH6bxCwsnlvbxR6l Oyc+G95ejK8mPAP4RIS2 gupaGHZhmjVbUO59HD46 M7HtWsqzaLMitBU+PGRp hnEvePmoDE7zFrMu t7paq8IjSSqrQ4FsSFFr INtpBhg2GOEgNNV9lDR6 zR7wNCWoSAqkx6H1qJA8 G1RkleDnel7us8hj ZEQuMYkfL46qzIJsb0V0 MEOzcYV4WDDoiRufYuJk dW36Awj+KFKssQoum7Zx Uetpq1qin6dapBw3 IjMwJSIgdmFsaWduPSJ0 t9ApFh69A31xIYziZKMn JWXxANWqVUQmdTbdun5b dN1pUv6+PGNvbCB3 qFR4hG3aJZXnWeQ4JJpa S788VrEidQTpVozpb3hb x5cedSy0SsYgYUXfxuCn kOdlNUF8x5KrMw70 R99nPOtmTQPxFUViUMRx JORwnFcenu8aiD8tYr3+ KK8jo6cebw53nA71rPD+ MPNdXRQ8qHeiQTdb CPVywV3wMVhrHiI4AYFf RdCwuQ89vERdFVcxMi5v gYyplEkuZD6nYNMdkibj p365YkQma6tdLBKi pJMcENmsXJW9E83hb5Z8 LEDwLQGvIQN5iHU6cT6j bGlnbjogbGVmdDsgdmVy mYszNFzsDQzyQ138 IHRvcDsnPlBhdGllbnQg HrRrUDh3Z8IdCip7QGDl bPruPA5hdJHcHKxhBa9m uWrbyHdlFH8hOYTr qaygf144EvDvg1usQVSq hHDuDGhpIPW0F16cp6B0 RQQkFOBbUGC1sDK5hH8h bGlnbjogbGVmdDsg etTdoUnlKMavJEfcW502 IHRvcDsnPkJpcnRoIERh oKW3XT94WX21eCAbf1S2 pMC4W1YqMXKjylnd qsxesUW2QNNfRRXnsO69 Ig7euUsiWi3wJTYvFKF0 ETKmdSWaQ7IfhO2eTdSs TAMyKWYsA3ByaNNf TKpiS722CFluVuJ6MRTv gdZwY3DyPSWtsWznIzN5 f5O1Md6IM6C2JX54UH65 jXXbg7Z4uGJ6U5Kc DVZsextopqyygKN2ZJUu CFHsjH85Hc2hiElkKx1f UXYsAKI3PZCinIHgT1Qv aY6tYjPaSEUkJPVc Q4MbdPEbPDqlX942YNcb HuN3APVafvFeT4VpKAWt nVbrYkF0a2D0Jl4SMJy3 JZ89FT66kIRpz2R3 iSS5W3TpGDQvdaleojzu fMJ1FAEcXOGoeO53Zp0l yHhwQt9sPVFtJQH3ONAn lKOuB3AelC8qPyDy LHYzXDGaO2TlzMKbVMbq G311IFupEwQ5TBZtlnEo T4TgXLXjxNmzFhA8n8X6 Zj6GUGIxWS10GRZ8 eXD4PN96CW91P4ZbWyot dGFibGU+PHRhYmxlIHdp ZHRoPScxMDAlJyBzdHls CK6xLg5dXQLrCWHx cFwnbBMcCtLve6mkDTMj TLkoVP6auKxkV4ZftMB0 EGWkv7w9Fz45Z23lS1Ke dXA+JSXubJG8eSH7 dX2cAtIfRuJ6BYaqX478 VzIgdPYcGlkat7eif3jq bMl8AfI4PHPmnnGtoTmw KOE7d1NpTn02P64y IHdpZHRoPSIxNSUiIHZh xMglqy3ypF6aYj7+PGNv hQW1yIL0tE8wPeCbKsR5 TNffD006RxUcdVCg Mlefa8niq7etwBn5EbXs XJTpmgEdsGcqPSS9n3Ap Xl00R0GjcVfly4VhYoa7 rc02hAWnd1O5tON5 R8LnYNOdwowlmTXqfBiz AG7fNSJeqmmrWXTqrS9g NIIrU4f4HwHyWbM5HQpn R9RyifM2YVDmoTXz SPyoROB9I36wi8W9STRi CYCmSLJ9rVY9hW4bkFde bjogbGVmdDsgdmVydGlj IHlfXNbqJ702ZMMr uDqrFGTtqU7zYIAyqTLr yDsbZL7pHELuvsbmZunK LZPWDGBXXDODEoKJTX19 YR08jQWup9T2uNG7 J0YfHIJlbxvgjprypGJ5 PFFjJREwlA70dEDsIJfo Ip0di6C0d144KKNzBNNh jZ81Ae7dqMhvNFJg tLLNfK7zasdur7vddify SqXmWCVhSAc5UIn1KXMi eGwyDgNwUMT2XrO0FHA4 wJYgiN9azAmyprwd bD4lBkx+MDEvMDgvMTk4 ODwvdGQ+LHBmUWW2eSpp CRndAHRyjS8xHHJeZ2j1 ShGvPhZ6WXfbB2Mn ECGrwnflHt61bG9eKyMb BuQ7NRunR4OnexX8CVLo gOWtJXpxLOQ0M62ea0L5 QRDfCTJdCTE2aSY5 eS2kyGbzlbwgyUUgyRfb sbSjkCuuLYxwQTwaB104 EHMzvCgkOhR5SHqpUMZx TZ55OG36nVRrz0M8 kER1Q4RkLLCojbrsjkec iUR4IBQkSCTiyA05pUCy XZgdQb9wk8Y1h288DGFk IUGhlW98Di4fpAqm SDUjiFGTtH2ygdrby2xd tbmzDhSgJRPpYEi0IYy5 UCMkbLezWjEwAIO8VmR8 XYV6xFXliM0rcXpb aduijQ9eRmo+RkVNQUxF RZ17BN95nOIde3F0tDL9 Z8DoBTKibvravwxzeNN6 GOPnJPBrvT61zGQd SYjjQg4wi9G6f292TTKm NLQtfY44En9qhOfrCTQs lDOTiD7wlydtu6yamrsi XbPoKHUpACg3VAi1 FQQqqGrdGjEjHLD0XjW7 FQF1oTFerT3wtUhjonoq qY8lCsi+W1L3R3YqFheo dHI+ES44KLVqZI20 cWZatOPql0qwbDg2KfOf QYTwMWI6mFihEEadu7Ui SXUyF64olAUev6M7PKSg bGxhcHNlOyBlbXB0 bC9sUEngjcsbl9wqcxkf Varsq5tfed21qH58M32q IHdpZHRoPSIzMCUiIHZh uBlhds6crC2nAf4+ VHFxpYU3kLW4hX1fDvJa LkV7NRtzW314AkIqwBGe Cestb7shq2hgeFk3GuWf JSIgdmFsaWduPSJ0 n0BaLj96S94oBShbBLAf RLNqJCMgLDEpyKenac0w rK5wJs3+DM4fs2fopv95 uI86rLK+PHRkIHN0 lIwkNTozPZWltG6nYLxi LpL4STEnUsKirF10jQBc SLxxAq4dnQepdOvmVF4u EJUxbildw564KzIf x1aeVBPylGOwDUpdPZM0 O48fh2J6SJIsIKWlNUL9 yEZ1oG0jrVbtkbnjjFSp dDsgdmVydGljYWwt KNduA250CKHcvSjuPrBa vVUfY7uoffDNNE3dYgkg dGQ+WXKoKBB3jPteXJst ULWfzZ0nHFTgE7s3 MgXqDcT4FOvyB2EdhvC8 MCOfiKBbMGOxqGJHtT2s rjjvt8zcymriWiIqESHl BEy7JKq7IBIfoCmh HtHlBMA1MvK3OAV3uWWo xU3atHdzdblbrD1vHvx+ RklOOjwvdGQ+PHRkIHN0 pWjmWPewOSCxdO9y LMBiL5p3NsSgLuP6QRbk S5DtnaP4PVOhaDTlPWGk vFKRbC7ediwki1hxopbd FvIgXUHnMQv7IKt1 HYRgvDkoVhOtGPK8YfH2 PYH9eMJtgX5foXqpjhgu cO0mTek+TVJOOjwvdGQ+ JKStUWT5jGtbNRit COQxnN7sRTKoB2q3GyPq XxY3WQoeB8JlgdV3HHSh cIFiIGSwhLAPyE9snubu x6vwrgdsJeNuFIYg QTm0DUw8UPXmzSadZqTy ZHI0YpL2QWG6pGByiT0j vVcybahutF8tGyg+UGF5 NKO7DJ30WC62V6Ii PjwvdGFibGU+PHRhYmxl IHdpZHRoPScxMDAlJyBz aWebPZ7aAk6aEEXoESZg sCmnvJGwRxTtz3sp YXB (more content not included)... [facility] Coding Summary HTMLBase 64 IxhurmwcXWk8dWg+PGhl YWQ+YS3IKPVfP12uxDFi dH9HD3vVHM8DJDHLBSSZ DP3TUC1uiEZ8AXgbZ6Np biAv ZydsvOGeEK22QOd9SNN2 eOxcQAtpxW9egNEfT1v5 CqAcIZ74rV60ZDaaEYAo AgA8JfDjbohveNUe X8hkAyIpjYIwUym+PHRh YmxlIHdpZHRoPScxMDAl AbCucMsmRH6gOc6wHCPa LWNvbGxhcHNlOiBj q1dmRSTjZCqbDH4zrNti C6SuiOS7ZSNsc7h3Qw26 dHI+JCFwISF6cDomTXdq e900HgCyv2yvIBA8 bSImPXotJHU9F93ow0F5 KHJlBSCmIHQ9pRJ2sN2r oPxgiywoB0QkzHUyRoJ5 ZMH1mIDcmR3wbOcr aeoaxM8pEow+P68WSD7K BDIPPE1CMuv1J8DqCkdt dHI+SB94BQNyBX58qIQj xZUge5gcuYk2XhEz EVQuTUV0rSmiRZyki2Zc KJEvW49geMKbv8F7OGPw lMahoSKyCiAzhMS0wB8d GKfynbdky1pvyvnx Xklon1ptsf29vD28C17w OKlzKOQiFRW5RUBlXKWc xWtxgt1grI5uUk9+IDxj y2iwn9njdFt2CeGa TSRychAvxWawPPS7l9Bn Xc46C9ZkbDaec2OwGto3 up48kELhv3E9yUD7VWix ZUOxdL0xDHlsAoE3 HRBdXkLsjC45tQVcRVxg Hq5ekHfniQlkUQ9lNVYz fnkzGPTunW6oBCKcvJLg pLzbUA8wVTJtuxzm u653DzMpWBX2YWHzeJOy W7GxlA8bDrPxUNIaTLJl U1KrvXHzFUviU854RTrg ZoO1JCZlqdKaB5Ix YXLwmByzDeS0q3U1Lr9T q4QrizrrXTN1DTekCLV9 DmI1CiCoHuB5T4PeJqa0 DAJyrEfvLO5rV3Qr SNEgxuliwqiwqGF2NZHr VYWaiB26uRCnWOghQa6v m5D7u611QPBkDYJdtE48 Ot3kmIvwWIQvjJUQ jN2wvbcwt2pkxzkeOqFt OLIcCZn0TJz3FALyzAip HgHcEFT4UnK9LGU0qRUw tJ3kpUfniesfnN5r Oyc+T70qnC9cWRG0DEL7 kfytCOHxhtVyMD07KV71 V6KpWfgzjOGjqFN+PGRp bbTgySksAN6mImHp x5ffy8NwMQwsB1JrRJJt AIfcOng1CATtZVD6xTH4 tA0wPWJrFVsny1W6nUO5 O0SkhtIipi3ea9le KGZlIOrcA87ixTNiv1C6 LPGolUD5LRVzfLiwZcLp uP00Wbv+CFAsiWvim5Pe Faugk8sas6dxdBa8 IjMwJSIgdmFsaWduPSJ0 s0VgMz97V75kQGotEDZt GFWqTFMxNFBvsZctjh7b pQ8xWb0+PGNvbCB3 mTZ7cO0mVVOwFnR0RTpr P058LsPzhHVwTqylo0if o8tjwZu4TuGzWHNnmaLp kTzyQWB5k0BqRb59 H98yUGqhLSHyQUOmIPYa DHMsvJanno0mfV5mAx6+ TM7no6kyky85hG15zEC+ QDEeSXV5vPhdQOax XQYwgU1sDUyhLhO8RLPz AmAezU47gOSdWYpgGf5s tPealOncEO6hEIEggfrf r649UhFrg7mpTPGv fOEkACugHOX9Z77iu3O8 ZQEfDAPqRDW1aYY1yC2x bGlnbjogbGVmdDsgdmVy qRaxIBemEDydY681 IHRvcDsnPlBhdGllbnQg MjZzROe7C3FnHvl6YBTq hAqcNU4nhBSlHSolNn1n sQhmjVcfCC0xFJUr zyoiw434TiQus4cdTOOv cLSaLLjkZPF8N14rn0H8 TVPvQAQtNMF3hDE6iW5s bGlnbjogbGVmdDsg azBkoSgnUIabFYwvJ432 IHRvcDsnPkJpcnRoIERh kBB5SS81QY62dCJhj7T3 yZS1T2FiCLSgfqea ruosfXE4TJFfIXVrlT48 Tw4hyFmpTu9oEWMrIWW0 PDBznVGmM4MqeC0aFrBg EWMaVPLsV1YrgQSw BZjtX899AFfwJeV7GTKu sdVsJ5BgNJPqgAirRzL0 n3X1Xp7ZY4Y9IZ57IH04 cKZec3S9wYD1V5Bk KMZsjzgbnuwqvJC2ORTf VCZaxP88Xw0ckDcxAm3q ZAUiEDN1BIQkeOGoU7Pg yS9sPsXtCMElVXSe C3GyxCGpTRhuF812NJfo QvO1XGTfksVeP2WnXLZu uWgkUxC7p2W3Qi9FXVu1 CK97CL33zCTds0M6 dPP4A5UqQUKlsrezmenc kEG7SJWfHOVweU39Gf7q mDvcDa3wIEXeCBO3OOUf dUIkP5GyjM9vDbQb AWUjXWPtZ5BreFUkWSwc I539TXkoKkP3TIXfurIa H4YkNXRiwUqfNfT5e0K8 Uv4OOVHjZP34TVQ1 sBE2OR43OY31I8RsYkcr dGFibGU+PHRhYmxlIHdp ZHRoPScxMDAlJyBzdHls TA1vJw5mADHpOQNg sCobdWQkFhHpk0rrAXSt HMucLC3vtPycL5ThsRD9 HKNeq8a9Zy49I77uH2Xi dXA+QZAyjUW7xWH1 fK2eVdRdGmO1KDwmJ740 WaSlbPXoUisxf6wry5eq aHr5VhS8TNJtpvQkqJpe CSR8v0GzZr98D92d IHdpZHRoPSIxNSUiIHZh bWxzak1mpZ9aLe0+PGNv uFO6gOQ9uJ1gObExDcA6 FVgpJ780FzXetCEh Vetak5kvk0lhwQp5KlBd SDOwsrPaqVtrNUZ7r0Ah Pm87E8KotSelw0ZtCja6 ab76nJOri7X0tPH1 L5XiLKCkdolqwJAebUsb UR8kVFTljvqcDJXqmJ6e XBDyS4c0RvPsQhU8BGbc W4NahyG1SBTjiHJi MAppXLY8I04xs9O1GMOf KAXyPBA0wLF4bY0pwYny bjogbGVmdDsgdmVydGlj EGobLKnnZ108PSXt uWvxPJLwnQ3mTTPytIZt qNmdEG1fDIXvirxeVcyU JCWTDWALKPMEVwHHOQ33 SL92cHWln1W2pQX5 N2SfCZKghhszprwrtUN0 LISlUOOxkN97aTTdALwz Ec4nr1I7z522PKLtYKIt jQ72Ag1qoFzmNKJc dVRAuN6ccbbiz1ceokem QcRbVGDqYFf6JQt8GALz hIdhMgBrTND8UkR7YVD1 rWQuwX3ndNgwxeru fK6rTwj+MDEvMDgvMTk4 ODwvdGQ+WDPtJIH3zDlr RYylWBVbsX1nFZIwS7w1 TtZdBxJ5TSztB3Oi WQKnkocgXl69uF1wPuOp RmE0ITrxO9MoplS6XDWg fZWlMPguRTY4T53fg0J2 VVUwUMEbBHE5xSK1 sP4sfZgboqueiQJcfOpp hgQiiHhhCOraBUrgW519 XYTgtHfeJgF4BNicCGKe NQ52AJ36cYWee8R6 wNH5G7WqOLZklxjcuiqn xZZ4XCCfZTNwyY24bNAe CQhrQv2ni6S5d979KPYe BIOuwG24Yw1axHza KUEyjIHOxU2chvzvb9pm phkfQzXwKTJaFPl4FTs9 VXFtfUwoLbKpISD1OmW6 ZJS6zOSivB2pdDev usiwlN7uCfd+RkVNQUxF OS51IQ37fGYum1F7mFC3 F2ZrDUTjwkaxsqctwDY8 JZZuZEHnhN13gGSz WRhgZp6ha2D6h061JSJz XFWecH45Wj0rfOsiBHMm fVWWiF0mzkezp3mauwgs TaBxUKKyVKy6WKo3 VSFasGtkPwOvWIV3NsT0 FBD6hNQqpC4gyKnsknfo dQ7bAmp+KW2shyvzejW4 UY00CO42I6GsUtno dGFibGU+PHRhYmxlIHdp ZHRoPScxMDAlJyBzdHls DA1fIh7jTMEaHFLxsIif oXRiLcRar9ygNGGe DTagBJ8faYesH1NxbIN8 QZSfb9x7Ts00B81cF8Dh dXA+FTQyxFK1tVU3fS5x KrEjYrQ3RAgoC075 JrDsoAEzFqsis0igv7cj dVu4LhZzEXOhrfDhuFqh APG1g9AtPw77R86kHMni ZHRoPSIyMCUiIHZh mKgqnq3inC1nUa2+PGNv dMO0uSC4zA4mHkWyLvM2 PMojQ365GrFpeNBlHimp K27xT9CnlIY+PHRy Ecx0LKUafEbvTW4uyDPy SOueGi6bBOH4CsOaTyPf BYstX5QtNAFvlxsztvnv oLA0WVVwNYFjoE78 At5krOtyGh1lBLWhDCR4 UOPskJCkT6XdaW6qZeBy BACcCIKwW7TokXNbTWud W779WTkpMvS7FFMh blAtY6ZbVSFezMypKnB1 c2G2Qu6YvLbdrWJzNW1i OtHsMVu1L0ItFvm0KHYp vTkaGH8fuJFfQNrq Or8fhDwphWvaRN6kNIYp sbwqj349YsRhf2klGRRc pKPuXAwrGZC4V79sn9H8 AAZaRAGkBZK4fRS8 nK9baDgisyaduGNloHof ckRoiYpqHUlcNYbcU928 YRNhgChdHtQLVpt8F3Tx Njo7UZHanTklML7b tFYwVPqhQi8ctTxlzZek JS1pFCQlcmwjg430JzXb p5cmJPKqhFItBWgkYJV0 E66ev6U8LRFoGZHj QIT0mFU5bO5bjAynzrpp bGVmdDsgdmVydGljYWwt IHkfG805FDPbiAiyIl6Y Sjp0Q1YzFya4RIXk fJnjON4hyKNpCRdkNq2u kTlkuJbkFR6yJNVftlxx p901YdDfw0kyQOPyhJJh CBsvCSZ1V25by6K7 BDGuXCHiTRW1eNH5xQ2o bGlnbjogbGVmdDsgdmVy yMroQWljDCeqO880NPOb cDsnPlBheWVyOjwv dGQ+FE38tq48L0XgKntg Sfo7DZNeJRK9sLS5kH9b RWZsSGaov5N8fLA6J9Io wpVpac5uh9ltEKBf ZTo (more content not included)... [facility] Ambulance Noteon 12-26-2021 Ambulance Note [id number] [id number] [facility] ED Clinical Summaryon 2021 ED Clinical Summary [facility] - Emergency Department [address] [place], [place] [id number] ED Clinical Summary PERSON INFORMATION Name: LOCO HICKS Age: 36 Years Sex: FEMALE : 1985 MRN: Acct#: Visit Reason: Dizziness; FACIAL NUMBNESS, DIZZINESS Arrival: 12/21/2021 18:23:41 Discharge: 12/22/2021 00:02:00 LOS: 000 05:39 Check In: 12/21/2021 18:23:41 Checkout:12/22/2021 00:02:00 Address: [address] [place] [id number] PCP: Provider, None PROVIDER INFORMATION Provider Role Assigned Unassigned Alvin Bryan ED Provider 12/21/2021 18:26:52 12/21/2021 18:30:20 Sanjuana Ramirez BIOINFORMATICS ANALYST Nurse 12/21/2021 18:29:17 12/21/2021 23:14:12 MARIAJOSE EDEN ED PA 12/21/2021 18:30:25 Kerline Cartagena BIOINFORMATICS ANALYST Nurse 12/21/2021 21:46:32 Kerline Merrill RN ED [...] - pharynx pink and moist. NECK: -Supple ([id number]): non-tender. CARD: -Rate and rhythm: Regular -Edema: No -Calf pain: No RESP: -Respiratory effort and chest excursion with respirations: Normal -Breath sounds equal bilaterally: Clear -Wheezes: No -Rales: No BACK: -Signs of pain with movement: No ABD: -Distended: No (more content not included)... Normal [facility] ED Patient Education Noteon 12-22-2021 ED Patient Education Note Education Materials [facility] ED Patient Summaryon 022 ED Patient Summary [facility] - Emergency Department [address] [place] [id number] PATIENT DISCHARGE INSTRUCTIONS Patient Information Name: LOCO HICKS Age: 36 Years Date of : 1985 Reason For Visit: Dizziness; FACIAL NUMBNESS, DIZZINESS Arrival Time: 12/21/2021 18:23:41 Primary Care Physician: Provider, None Attending Physician: Alivn Bryan Comment: Visit Diagnosis: Diagnoses This Visit Dizziness ([id number]) Paresthesias (R20.2) Visual disturbance (H53.9) Prescription Information: If you have been given a prescription for narcotics, seek immediate medical attention if you have any difficulty breathing or any sudden status changes such as confusion and sleepiness. If you or anyone you know is experiencing suicidal thoughts, mental health, alcohol and/or drug addiction problems; contact the [facility] 17/02 Crisis Hotline -Text [phone] to [phone]. If you received any narcotics, sedation, or [...] and treatment you received today in the [facility] Emergency Department were for an urgent problem and are not intended as complete care. It is important for you to follow up with a doctor, nurse practitioner, or physician?s research study assistant for ongoing care. If your symptoms [...] so we can reach you if necessary. [facility] Emergency Department has provided you with a complete list of medications post discharge. Please inform your electronic operator/provider of your visit and for further [...] for Disease Control and Prevention March 2014 [facility] MRI BRAIN W WO CONTRASTon MRI [...] Ean Cedillo MD 12/22/21 Final result Normal [facility] MRI CERVICAL SPINE W WO CONT [facility] 12-22-2021 MRI CERVICAL SPINE W WO [...] Ean Cedillo MD 12/22/21 Final result Normal [facility] [id number] 12-22-2021 SARS-CoV-2 (COVID-19) RNA SHELBI+probe Ql (Unsp spec) Not detected Normal NOTDET [facility] Comment on above: Result Comment: [...] management decisions. Fact sheet for Healthcare Providers: https://www.fda.gov/media/669648/download Fact sheet for Patients: https://www.fda.gov/media/712385/download Methodology: Isothermal Nucleic Acid Amplification Performed By: #### C OVRB #### [place] [address] Group Account Director: Campbell Simmons MD SARS-CoV-2 (COVID-19) PCRon 12-22-2021 Employed in healthcare? No Invalid Interpretation Code [facility] Comment on above: Performed By: #### 6 [id number] ####[facility] (DEFAULT)[address] [place] [address] Group care resident? No Invalid Interpretation Code [facility] Comment on above: Performed By: #### 6 [id number] ####[facility] (DEFAULT)[address] [place] [address] In ICU? No Invalid Interpretation Code [facility] Comment on above: Performed By: #### 6 [id number] ####[facility] (DEFAULT)[address] [place] [address] status? Not Invalid Interpretation Code [facility] Comment on above: Performed By: #### 6 [id number] ####[facility] (DEFAULT)[address] [place] [address] SARS-CoV-2 (COVID-19) RNA SHELBI+probe Ql (Unsp spec) Not detected Normal Not Detected [facility] Comment on above: Result Comment: Perf ormed by PCR methodology. Performed By: #### 6 [id number] ####[facility] (DEFAULT)[address] [place] [address] SARS-CoV-2 (COVID-19) RNA SHELBI+probe Ql (Unsp spec) No Invalid Interpretation Code [facility] Comment on above: Performed By: #### 6 [id number] ####[facility] (DEFAULT)[address] [place] [address] Symptomatic as defined by CDC? No Invalid Interpretation Code [facility] Comment on above: Performed By: #### 6 [id number] ####[facility] (DEFAULT)[address] [place] [address] Transfer Noteon 12-22-2021 Transfer Note medication list sent with patient, Complete ED chart sent with patient. CD and med list sent w. patient to Hospital [Electronically Signed on: 12/22/2021 00:05 EDT] Nadya Garcia [Verified on: 12/22/2021 00:05 EDT] Nadya Garcia [facility] Transfer Note [id number] #1.00OTGTIFF [facility] Transfer Note [id number] #1.00OTGTIFF [facility] Transfer Note transport called, [facility] called for transport to [facility]. Willie stated will call when back in area from [facility] Trip. [Electronically Signed on: 12/21/2021 22:14 EDT] Nadya Garcia [Verified on: 12/21/2021 22:14 EDT] Nadya Garcia [facility] .Auto Diff 1on 12-21-2021 Auto Placer % 7 % Normal 12 [facility] Comment on above: Performed By: #### 7 401182, [id number], 2131946, 16585046, 4861356, 1772582, 8110660386, 4865918, [id number] ####[facility] (DEFAULT)[address] [place] [address] Baso Abs# 0.0 x10 Normal 0.0-0.2 [facility] Comment on above: Performed By: #### 7 581655, [id number], 3302502, 82961674, 4218611, 6184942, 5528532936, 0107396, 7976989176 ####[facility] (DEFAULT)[address] [place] [address] Basophils/100 WBC (Bld) 0.4 % Normal 0.2-2.0 [facility] Comment on above: Performed By: #### 7 663067, 0330227550, 8450862, 27858196, 6999147, 2133817, 3814893299, 9013205, 8498725542 ####[facility] (DEFAULT)[address] [place] [address] Eos Abs# 0.1 x10 Normal 0.0-0.4 [facility] Comment on above: Performed By: #### 7 099790, [id number], 9855831, 46001728, 5757332, 0293481, 4469459382, 1121057, 5419482801 ####[facility] (DEFAULT)[address] [place] [address] 75164 Eosinophils/100 WBC (Bld) 0.7 % Low 0.9-4.0 [facility] Comment on above: Performed By: #### 7 331418, 6021933795, 2589268, 56145151, 3057713, 9651998, 8047198781, 5049935, 5420714413 ####[facility] (DEFAULT)[address] [place] [address] 64518 Lymph Abs# 3.2 x10 High 1.3-2.9 [facility] Comment on above: Performed By: #### 7 402044, 4119115575, 8415217, 41711786, 3001043, 3442632, 9182458673, 8365346, 7199813863 ####[facility] (DEFAULT)[address] [place] [address] 29833 Lymphocytes/100 WBC (Bld) 40 % Normal 14-48 [facility] Comment on above: Performed By: #### 7 305253, [id number], 9683899, 82402202, 3901286, 6335853, 7872828397, 8590317, 4182135146 ####[facility] (DEFAULT)[address] [place] [address] 85188 Placer Abs# 0.6 x10 Normal 0.0-0.8 [facility] Comment on above: Performed By: #### 7 753955, 5132205311, 0249816, 15907925, 9161281, 4234113, 2203805336, 1352918, 8284185502 ####[facility] (DEFAULT)[address] [place] [address] 70155 Neut Abs# 4.3 x10 Normal 1.5-9.2 [facility] Comment on above: Performed By: #### 7 324944, 1813792698, 0745857, 10168283, 2864335, 5359960, 5245114077, 4898530, 4050355270 ####[facility] (DEFAULT)[address] [place] [address] 39894 Neutrophils/100 WBC (Bld) 53 % Normal 44-88 [facility] Comment on above: Performed By: #### 7 110196, 3886121021, 5891840, 20556151, 6879942, 1521671, 6169978341, 9367585, 0659111238 ####[facility] (DEFAULT)[address] [place] [address] 16886 CBC w/ Auto Diffon 2 Erythrocyte distribution width (RBC) [Ratio] 14.3 % Normal 11.5-15.0 [facility] Comment on above: Performed By: #### 7 913463, 5449898097, 6500880, 74878359, 1314581, 4372424, 7409255950, 3916174, 4970051783 ####[facility] (DEFAULT)[address] [place] [address] 58638 Hematocrit (Bld) [Volume fraction] 42.3 % High 33.7-40.4 [facility] Comment on above: Performed By: #### 7 950860, 0630191234, 6248225, 11707186, 4608498, 7545404, 8219989093, 6407884, 2502814639 ####[facility] (DEFAULT)[address] [place] [address] 31366 Hemoglobin (Bld) [Mass/Vol] 13.7 g/dL Normal 11.3-15.9 [facility] Comment on above: Performed By: #### 7 023415, 5576689586, 9249097, 14920835, 1649182, 0027298, 5858644522, 4638647, 9343747267 ####[facility] (DEFAULT)[address] [place] [address] 15682 Instr WBC 8.2 x10 Invalid Interpretation Code [facility] Comment on above: Performed By: #### 7 602468, 6466586155, 0440596, 12185056, 1460604, 0180367, 0694739895, 2221731, 2305543116 ####[facility] (DEFAULT)[address] [place] [address] 55439 Man Diff? Auto Normal [facility] Comment on above: Performed By: #### 7 202481, 4721888623, 0192110, 55367279, 8577771, 0399296, 1328397097, 5144489, 4655482766 ####[facility] (DEFAULT)[address] [place] [address] 50749 MCH (RBC) [Entitic mass] 31 pg Normal 24-34 [facility] Comment on above: Performed By: #### 7 278897, 0797067069, 6857076, 59916978, 6364397, 2529411, 7988017403, 8325934, 3363902931 ####[facility] (DEFAULT)[address] [place] [address] 34879 MCHC (RBC) [Mass/Vol] 32 g/dL Normal 26-37 [facility] Comment on above: Performed By: #### 7 059106, 0958223291, 2538106, 96537579, 5022189, 2714697, 7893082319, 2330558, 0629874921 ####[facility] (DEFAULT)[address] [place] [address] 82619 MCV (RBC) [Entitic vol] 96 fL Normal 81-100 [facility] Comment on above: Performed By: #### 7 618571, 2364371605, 5644363, 36042723, 5805407, 1506999, 9077373891, 2466065, 0140858106 ####[facility] (DEFAULT)[address] [place] [address] 59576 Platelet 363 x10 Normal 138-427 [facility] Comment on above: Performed By: #### 7 631846, 9018018065, 5501739, 73376655, 6399024, 3797146, 4196318285, 3666336, 7469354700 ####[facility] (DEFAULT)[address] [place] [address] 01617 Platelet mean volume (Bld) [Entitic vol] 10.2 fL Normal 6.3-10.2 [facility] Comment on above: Performed By: #### 7 698346, 7852029214, 7462055, 65915761, 1133566, 1422784, 0837648148, 2635271, 1290058315 ####[facility] (DEFAULT)[address] [place] [address] 52542 RBC 4.42 x10 Normal 3.70-5.30 [facility] Comment on above: Performed By: #### 7 444853, 7397500235, 5158607, 62129348, 8214855, 8217984, 2734748326, 5851952, 6563728942 ####[facility] (DEFAULT)[address] [place] [address] 14275 WBC 8.2 x10 Normal 3.5-10.5 [facility] Comment on above: Performed By: #### 7 935653, 9238861548, 6861913, 41367168, 2914691, 1478083, 9784926234, 0468266, 0022135909 ####[facility] (DEFAULT)[address] [place] [address] [facility] Standardon 12-21-2021 eGFR Non AA 57 mL/min/1.73m2 Invalid Interpretation Code [facility] Comment on above: Performed By: #### 7 807714, 9781277175, 1731372, 87564603, 8507372, 8575311, 1648542645, 6162267, 2164696466 ####[facility] (DEFAULT)[address] [place] [address] 54778 eGFR AA >60 Invalid Interpretation Code [facility] Comment on above: Result Comment: Plate Take Out Worker nathalia Kidney disease could be indicated at eGFRs of less than 60 ml/min/1.73m2. Kidney Failure is indicated at less than 15 ml/min/1.73m2 Performed By: #### 7 771036, 1765997909, 4929584, 89764921, 7042924, 4753474, 8568128557, 0488496, 4134372977 ####[facility] (DEFAULT)[address] [place] [address] 29505 Albumin [Mass/Vol] 4.7 g/dL Normal 3.5-5.0 [facility] Comment on above: Performed By: #### 7 470617, 7879699706, 6970116, [id number], 5280800, 3021433, [id number], 0261395, [id number] ####[facility] (DEFAULT)[address] [place] [address] 91715 Albumin/Globulin [Mass ratio] 1.1 {ratio} Low 1.4-2.6 [facility] Comment on above: Performed By: #### 7 120950, [id number], 4606609, 05768356, 9316366, 0725807, 6638442163, 9965355, [id number] ####[facility] (DEFAULT)[address] [place] [address] 87506 Alk Phos 99 IU/L High 32-91 [facility] Comment on above: Performed By: #### 7 303738, [id number], 7257411, 46758655, 5553616, 3835538, 1403273581, 4377178, [id number] ####[facility] (DEFAULT)[address] [place] [address] 95698 ALT [Catalytic activity/Vol] 32.0 U/L Normal 14.0-54.0 [facility] Comment on above: Performed By: #### 7 957600, [id number], 7751221, 19847642, 4961292, 2708878, 7167050719, 0350039, 5270466547 ####[facility] (DEFAULT)[address] [place] [address] 84104 Anion gap [Moles/Vol] 23.0 mmol/L High 5.0-19.0 [facility] Comment on above: Performed By: #### 7 204980, [id number], 9804113, 31295407, 5485065, 5697185, 7240473397, 9970990, 6786135660 ####[facility] (DEFAULT)[address] [place] [address] 73367 AST [Catalytic activity/Vol] 41 U/L Normal 15-41 [facility] Comment on above: Performed By: #### 7 998255, [id number], 4852156, 92948494, 0275620, 1010319, 2467395197, 4740578, 8248301336 ####[facility] (DEFAULT)[address] [place] [address] 46212 Bili Total 0.4 mg/dL Normal 0.3-1.2 [facility] Comment on above: Performed By: #### 7 630033, [id number], 3246511, 72054899, 8123571, 4204365, 4438564300, 5992219, 5939242436 ####[facility] (DEFAULT)[address] [place] [address] 62877 Calcium [Mass/Vol] 10.2 mg/dL Normal 8.9-10.3 [facility] Comment on above: Performed By: #### 7 917232, 2207384538, 3778997, 01250697, 9300601, 5895827, 5831949730, 0171227, [id number] ####[facility] (DEFAULT)[address] [place] [address] 80482 Chloride [Moles/Vol] 96 mmol/L Low 101-111 [facility] Comment on above: Performed By: #### 7 696165, 7634102681, 7492516, 23522201, 5679360, 4036787, 8001702248, 2761534, 2482529384 ####[facility] (DEFAULT)[address] [place] [address] 57390 CO2 [Moles/Vol] 24 mmol/L Normal 21-32 [facility] Comment on above: Performed By: #### 7 647631, 7648931498, 5913673, 69011277, 8884142, 7731984, 0740479753, 9543184, 6463826368 ####[facility] (DEFAULT)[address] [place] [address] 04786 Creatinine [Mass/Vol] 1.10 mg/dL Normal 0.60-1.30 [facility] Comment on above: Performed By: #### 7 139559, 4597767116, 3579545, 60161121, 4876210, 6096080, 6838057158, 8527148, 9432563537 ####[facility] (DEFAULT)[address] [place] [address] 76099 Globulin (S) [Mass/Vol] 4.2 g/dL Normal 1.5-4.3 [facility] Comment on above: Performed By: #### 7 726439, 1965567884, 3084878, 83796517, 4626567, 1749306, 7649677421, 5188804, 5724005084 ####[facility] (DEFAULT)[address] [place] [address] 66350 Glucose [Mass/Vol] 97.0 mg/dL Normal 74.0-118.0 [facility] Comment on above: Performed By: #### 7 102193, 9000518336, 7738254, 11032692, 2782235, 8144629, 7413786517, 0650447, 4680096650 ####[facility] (DEFAULT)[address] [place] [address] 03659 Osmolality 278 mOsm/L Invalid Interpretation Code [facility] Comment on above: Performed By: #### 7 808516, 8341655714, 0504172, 07533978, 4457324, 9438841, 5822446834, 3845466, 2275974801 ####[facility] (DEFAULT)[address] [place] [address] 55703 Potassium [Moles/Vol] 3.5 mmol/L Low 3.6-5.1 [facility] Comment on above: Performed By: #### 7 867216, 1637770956, 9235707, 00629302, 0814544, 9320024, 9681650559, 4652847, 9723613493 ####[facility] (DEFAULT)[address] [place] [address] 21337 Protein [Mass/Vol] 8.9 g/dL High 6.5-8.1 [facility] Comment on above: Performed By: #### 7 787250, [id number], 9618189, 84665838, 3120767, 2169921, 7929995505, 2997510, 4068322941 ####[facility] (DEFAULT)[address] [place] [address] 32410 Sodium [Moles/Vol] 139.0 mmol/L Normal 136.0-144.0 [facility] Comment on above: Performed By: #### 7 115412, 1723280499, 5225626, 14839208, 2326984, 1933723, 1964866428, 5192499, 9319246346 ####[facility] (DEFAULT)[address] [place] [address] 85840 Urea nitrogen [Mass/Vol] 15 mg/dL Normal 8-26 [facility] Comment on above: Performed By: #### 7 535356, 5565518779, 5643172, 22545920, 0062369, 4192138, 8513203937, 4026894, 7184915675 ####[facility] (DEFAULT)[address] [place] [address] 22802 Urea nitrogen/Creatinine [Mass ratio] 14.0 mg/mg Normal 4.6-16.2 [facility] Comment on above: Performed By: #### 7 924966, 1885914628, 9284367, 98235703, 4918421, 8609196, 7887527315, 9252844, 6306454107 ####[facility] (DEFAULT)[address] [place] [address] Head or Brain w/o Contras ton [...] 12/21/21 9:19 pm Technologist: Erwin CHAUDHARI Normal [facility] D-Dimeron 12-21-2021 D-Dimer 0.49 mg/L FEU Normal 0.19-0.50 [facility] Comment on above: Result Comment: [...] Liver cirrhosis ? Performed By: #### 7 087104, 0711538487, 1628524, 18877375, 1318129, 7247854, 2373266016, 4283329, 3473867014 ####[facility] (DEFAULT)[address] [place] [address] ED Note - Otheron 12-21-2021 ED Note - Other Neurology called back from [facility], on phone with Mariajose LLANES [Electronically Signed on: 12/21/2021 21:29 EDT] Nadya Garcia [Verified on: 12/21/2021 21:29 EDT] Nadya Garcia [facility] ED Note - Other paging Neurology through [facility] for consult for Mariajose LLANES [Electronically Signed on: 12/21/2021 21:12 EDT] Nadya Garcia [Verified on: 12/21/2021 21:12 EDT] Nadya Garcia [facility] ED Note - Physicianon 2021 ED [...] - pharynx pink and moist. NECK: -Supple (qxfs-rn-qcyea): non-tender. CARD: -Rate and rhythm: Regular -Edema: [...] I di (more content not included)... Normal [facility] ED Note-Nursingon 12-21-2021 ED Note-Nursing Clam Shucking Machine Tender assumed care for pt at 2124. Pt had fluids running at that time. Will continue to give the rest of the liter per VO from MARIO ALBERTO. MARIO ALBERTO also stated that after speaking with neuro, pt is to be transferred to [facility] for MRI and further evaluation. Normal [facility] Ethanol.on 12-21-2021 Ethanol Level 9.0 mg/dL High 0.0-5.0 [facility] Comment on above: Performed By: #### 2 [id number] #### [facility] (DEFAULT) [address] [place] [address] 02068 Extra [place] 12-21-2021 Tube Collected Yes Invalid Interpretation Code [facility] Comment on above: Performed By: #### 2 460949, [id number] #### [facility] (DEFAULT) [address] [place] [address] 81992 Extra [place] 12-21-2021 Tube Collected Yes Invalid Interpretation Code [facility] Comment on above: Performed By: #### 7 903441, 8072998712, 5922030, 32090436, 7824268, 0529012, 4127460884, 7636819, 2967451253 #### [facility] (DEFAULT) [address] [place] [address] 00037 Magnesiumon 12-21-2021 Magnesium [Mass/Vol] 2.02 mg/dL Normal 1.80-2.50 [facility] Comment on above: Performed By: #### 7 515084, 4055016158, 5085220, 08860236, 9440403, 9293552, 0621587212, 2038241, 2974821182 ####[facility] (DEFAULT)[address] [place] [address] 56326 PTon 12-21-2021 INR Coag (PPP) [Relative time] 0.94 {INR} Normal 0.91-1.11 [facility] Comment on above: Performed By: #### 7 618765, 4012572277, 8841478, 70446403, 4713806, 4995267, 1474388694, 0630963, 7745198725 ####[facility] (DEFAULT)[address] [place] [address] PT 10.2 second(s) Normal 9.7-11.8 [facility] Comment on above: Performed By: #### 7 015339, 4227264336, 0119008, 61947935, 1529091, 3369464, 7520557800, 2745877, 6875702183 ####[facility] (DEFAULT)[address] [place] [address] 19336 PTTon 12-21-2021 PTT 26 second(s) Normal 25-35 [facility] Comment on above: Performed By: #### 7 451470, 6435681170, 9525434, 95505501, 1907437, 6829768, 3065023805, 3352105, 6251272555 ####[facility] (DEFAULT)[address] [place] [address] 26076 Test Urine 1on U Preg Negative Normal [facility] Comment on above: Performed By: #### 1 [id number], 625584555 ####[facility] (DEFAULT)[address] [place] [address] 38435 U Preg Internal Control Pass Normal [facility] Comment on above: Performed By: #### 1 [id number], 789750292 ####[facility] (DEFAULT)[address] [place] [address] 44132 Salicylateon 12-21-2021 Salicylate Lvl <4.0 Normal 0.0-30.0 [facility] Comment on above: Result Comment: Sali cylate ranges less than 30 mg/dL are considered to be therapeutic. Levels greater than 30 mg/dL are considered toxic and levels greater than 60 mg/dL may be lethal. Performed By: #### 2 923105, [id number] #### [facility] (DEFAULT) [address] [place], [place] [address] TnI HSon 12-21-2021 Troponin I High Sensitivity <2 Normal <=15 [facility] Comment on above: Result Comment: Male Baseline Delta 1Hr (Note pg/mL=ng/L) <20pg/mL 50-60% >20pg/mL 20% Female Baseline Delta 1Hr <15pg/mL 50-60% >15pg/mL 20% Other Baseline Delta 1Hr <18ng/mL 50-60% >18ng/mL 20% ([place] [employer] Guidelines February 2018) Performed By: #### 7 940480, 8661848901, 1247360, 61727232, 6492454, 4209440, 9462966792, 0248351, 2179808065 ####[facility] (DEFAULT)[address] [place] [address] 81962 Triage Panel 1212-21-2021 Triage Internal Control Pass Normal [facility] Comment on above: Performed By: #### 1 [id number] ####[facility] (DEFAULT)[address] [place] [address] 24248 U Amph Scr Negative Normal [facility] Comment on above: Performed By: #### 1 [id number] ####[facility] (DEFAULT)[address] [place] [address] 64043 U Vanesa Scr Negative Normal [facility] Comment on above: Performed By: #### 1 [id number] ####[facility] (DEFAULT)[address] [place] [address] 32888 U Benzodia Scr Negative [facility] Comment on above: Performed By: #### 1 [id number] ####[facility] (DEFAULT)[address] [place] [address] 30073 U Cannab Scrn Negative [facility] Comment on above: Performed By: #### 1 [id number] ####[facility] (DEFAULT)[address] [place] [address] 16142 U Cocaine Scr Negative [facility] Comment on above: Performed By: #### 1 [id number] ####[facility] (DEFAULT)[address] [place] [address] 03710 U Methadone Scr Negative [facility] Comment on above: Performed By: #### 1 [id number] ####[facility] (DEFAULT)[address] [place] [address] 34398 U Methamp Scrn Negative [facility] Comment on above: Performed By: #### 1 [id number] ####[facility] (DEFAULT)[address] [place] [address] 46180 U Opiate Scr Negative [facility] Comment on above: Performed By: #### 1 [id number] ####[facility] (DEFAULT)[address] [place] [address] 08269 U Oxycod Scr Negative [facility] Comment on above: Performed By: #### 1 [id number] ####[facility] (DEFAULT)[address] [place] [address] 50226 U Phencyclidine Scr Negative Normal [facility] Comment on above: Performed By: #### 1 [id number] ####[facility] (DEFAULT)[address] [place] [address] 29464 U Propoxyphene Scr Negative [facility] Comment on above: Performed By: #### 1 [id number] ####[facility] (DEFAULT)[address] [place] [address] 02925 U Tricyclic Antidepress Scr Negative [facility] Comment on above: Result Comment: Resu [...] PPX Propoxyphene (Norpropoxyphene): 300 ng/mL THC Cannabinoids (53-atp-5-carboxy- -THC): 50 ng/mL TCA Tricyclic-Antidepressants (Desipramine): 300 ng/mL Performed By: #### 1 [id number] ####[facility] (DEFAULT)[address] [place] [address] Urine Source Clean Catch [facility] Comment on above: Performed By: #### 1 [id number] ####[facility] (DEFAULT)[address] [place] [address] UA w Culture if Ind Standard on 12-21-2021 Color (U) Yellow Normal [facility] Comment on above: Performed By: #### 1 [id number], [id number] ####[facility] (DEFAULT)[address] [place] [address] Culture? Not Indicated Invalid Interpretation Code [facility] Comment on above: Result Comment: Resu lt created by rule GL_MAGR_ADD_UA_CULT1 Performed By: #### 1 [id number], [id number] ####[facility] (DEFAULT)[address] [place] [address] Glucose (U) [Mass/Vol] Negative Normal [facility] Comment on above: Performed By: #### 1 [id number], [id number] ####[facility] (DEFAULT)[address] [place] [address] 17920 Ketones Ql (U) Negative Normal [facility] Comment on above: Performed By: #### 1 [id number], [id number] ####[facility] (DEFAULT)[address] [place] [address] 23098 Micro? Not Indicated Invalid Interpretation Code [facility] Comment on above: Result Comment: Resu lt created by rule GL_MAGR_ADD_UA_MICRO Performed By: #### 1 [id number], [id number] ####[facility] (DEFAULT)[address] [place] [address] 13239 UA Bilirubin Negative Normal [facility] Comment on above: Performed By: #### 1 [id number], [id number] ####[facility] (DEFAULT)[address] [place] [address] 32313 UA Blood Negative Normal NEGATIVE [facility] Comment on above: Performed By: #### 1 [id number], [id number] ####[facility] (DEFAULT)[address] [place] [address] 93415 UA Clarity CLEAR Normal CLEAR [facility] Comment on above: Performed By: #### 1 [id number], [id number] ####[facility] (DEFAULT)[address] [place] [address] 79918 UA Leuk Est Negative Normal NEGATIVE [facility] Comment on above: Performed By: #### 1 [id number], [id number] ####[facility] (DEFAULT)[address] [place] [address] 55248 UA Nitrite Negative Normal NEGATIVE [facility] Comment on above: Performed By: #### 1 [id number], [id number] ####[facility] (DEFAULT)[address] [place] [address] 69765 UA pH 6.5 Normal 5-8 [facility] Comment on above: Performed By: #### 1 [id number], [id number] ####[facility] (DEFAULT)[address] [place] [address] 85986 UA Protein Negative Normal NEGATIVE [facility] Comment on above: Performed By: #### 1 [id number], [id number] ####[facility] (DEFAULT)[address] [place] [address] 45193 UA Spec Grav <=1.005 Normal 1.001-1.035 [facility] Comment on above: Performed By: #### 1 [id number], [id number] ####[facility] (DEFAULT)[address] [place] [address] 37670 UA Urobilinogen 0.2 mg/dL Normal 0.2-1.0 [facility] Comment on above: Performed By: #### 1 [id number], [id number] ####[facility] (DEFAULT)[address] [place] [address] 20741 Breakpoint UA Normal [facility] Comment on above: Performed By: #### 1 [id number], [id number] ####[facility] (DEFAULT)[address] [place] [address] 47734 Urine Source Clean Catch Normal [facility] Comment on above: Performed By: #### 1 [id number], [id number] ####[facility] (DEFAULT)[address] [place] [address] 75889 XR Chest 2 Viewson 2 XR Chest [...] 12/21/21 9:38 pm Technologist: Obed BELLE Normal [facility] CARDIAC HUMAIRA ADMITon 021 CK [Catalytic activity/Vol] 117 U/L Normal 30-135 [facility] Comment on above: Performed By: #### T JOÃO LOCK, CMP #### [facility] [address] [place], [place] [address] Nelida Lily CK.MB [Mass/Vol] 1.16 ng/mL Normal <=2.37 [facility] Comment on above: Performed By: #### T JOÃO LOCK, CMP #### [facility] [address] [place] [id number] Nelida Lily HSTROP <4.0 Normal 4.0-35.5 [facility] Comment on above: Result Comment: CUT- OFF POINTS HAVE BEEN ESTABLISHED BASED ON THE FOURTH UNIVERSAL DEFINITIONS OF MYOCARDIAL INFARCTION. THE UPPER REFERENCE LIMIT (URL) OF TROPONIN, DEFINED THE 99TH PERCENTILE OF cTnI DISTRIBUTION IN A REFERENCE POPULATION, HAS BEEN CONFIRMED THE DECISION THRESHOLD FOR VA DIAGNOSIS. Performed By: #### T JOÃO LOCK, CMP #### [facility] [address] [place] [address] Nelida Lily NGA 41.0 ng/mL Normal <=61.5 [facility] Comment on above: Performed By: #### T JOÃO LOCK, CMP #### [facility] [address] [place], [place] [address] Nelida Lily CBC AUTO DIFFon 02-23-2021 BASO # 0.1 103/ul Normal 0.0-0.1 [facility] Comment on above: Performed By: #### C BC #### [facility] [address] [place], [place] [address] Nelida Lily Basophils/100 WBC (Bld) 1.0 % Normal 0.2-2.0 [facility] Comment on above: Performed By: #### C BC #### [facility] [address] [place], [place] [address] Nelida Lily EO # 0.1 103/ul Normal 0.0-0.7 [facility] Comment on above: Performed By: #### C BC #### [facility] [address] [place], [place] [address] Nelida Lily Eosinophils/100 WBC (Bld) 2.2 % Normal 0.9-7.0 [facility] Comment on above: Performed By: #### C BC #### [facility] [address] [place] [address] Nelida Lily Erythrocyte distribution width (RBC) [Ratio] 14.2 % Normal 11.0-15.0 [facility] Comment on above: Performed By: #### C BC #### [facility] [address] [place] [address] Nelida Lily Hematocrit (Bld) [Volume fraction] 40.6 % Normal 36.0-48.0 [facility] Comment on above: Performed By: #### C BC #### [facility] [address] [place] [address] Nelida Lily Hemoglobin (Bld) [Mass/Vol] 13.3 g/dL Normal 12.0-16.0 [facility] Comment on above: Performed By: #### C BC #### [facility] [address] [place] [address] Nelida Lily IG # 0.02 10e3/ul Normal 0.00-0.03 [facility] Comment on above: Performed By: #### C BC #### [facility] [address] [place] [address] Nelida Lily IG % 0.4 % Normal 0.0-0.5 [facility] Comment on above: Performed By: #### C BC #### [facility] [address] [place] [address] Nelida Lily LYMPH # 1.7 103/ul Normal 1.2-3.8 [facility] Comment on above: Performed By: #### C BC #### [facility] [address] [place] [address] Nelida Lily Lymphocytes/100 WBC (Bld) 34.6 % Normal 20.5-60.0 [facility] Comment on above: Performed By: #### C BC #### [facility] [address] [place] [address] Nelida Lily MANUAL DIFF REQ NO Normal [facility] Comment on above: Performed By: #### C BC #### [facility] [address] [place] [address] Nelida Lily MCH (RBC) [Entitic mass] 31.5 pg Normal 26.7-34.0 [facility] Comment on above: Performed By: #### C BC #### [facility] [address] [place] [address] Nelidajose Bautista MCHC (RBC) [Mass/Vol] 32.8 g/dL Normal 29.9-35.2 [facility] Comment on above: Performed By: #### C BC #### [facility] [address] [place] [address] Nelidajose Bautista MCV (RBC) [Entitic vol] 96.2 fL Normal 81.0-99.0 [facility] Comment on above: Performed By: #### C BC #### [facility] [address] [place] [address] Nelida Kimbleen MONO # 0.4 103/ul Normal 0.3-0.8 [facility] Comment on above: Performed By: #### C BC #### [facility] [address] [place] [address] Nelida Lily Monocytes/100 WBC (Bld) 7.1 % Normal 1.7-12.0 [facility] Comment on above: Performed By: #### C BC #### [facility] [address] [place] [address] Nelidajose Kimbleen NEUT # 2.7 103/ul Normal 1.4-6.5 [facility] Comment on above: Performed By: #### C BC #### [facility] [address] [place] [address] Nelida Lily Neutrophils/100 WBC (Bld) 54.7 % Normal 43.0-75.0 [facility] Comment on above: Performed By: #### C BC #### [facility] [address] [place], [place] [address] Nelida Lily Platelet mean volume (Bld) [Entitic vol] 9.8 fL Normal 9.5-13.5 [facility] Comment on above: Performed By: #### C BC #### [facility] [address] [place], [place] [address] Nelida Lily PLT 320 103/ul Normal 150-450 [facility] Comment on above: Performed By: #### C BC #### [facility] [address] [place] [address] Nelida Bautista RBC 4.22 106/ul Normal 4.20-5.40 [facility] Comment on above: Performed By: #### C BC #### [facility] [address] [address] Nelida Kimbleen WBC 4.9 103/ul Normal 4.0-11.0 [facility] Comment on above: Performed By: #### C BC #### [facility] [address] [place] [id number] [address] STROKE HEAD WOon 02-24-20 [...] Date: 2021-02-23 13:52 Normal [facility] ER URINE PROFILEon Bilirubin Ql (U) Negative Normal NEGATIVE [facility] Comment on above: Performed By: #### E RUR #### [facility] [address] [place] [address] Nelida Bautista Clarity (U) CLEAR Normal CLEAR [facility] Comment on above: Performed By: #### E RUR #### [facility] [address] [place], [place] [address] Nelida Lily Color (U) LT. YELLOW Normal YELLOW [facility] Comment on above: Performed By: #### E RUR #### [facility] [address] [place], [place] [address] Nelida Lily ERUAHD A micrscopic examination will be performed if indicated. Normal [facility] Comment on above: Performed By: #### E RUR #### [facility] [address] [place] [address] Nelida Lily Glucose Ql (U) Negative Normal NEGATIVE [facility] Comment on above: Performed By: #### E RUR #### [facility] [address] [place] [address] Nelida Lily Hemoglobin Ql (U) Negative Normal NEGATIVE [facility] Comment on above: Performed By: #### E RUR #### [facility] [address] [place] [address] Nelida Lily Ketones Ql (U) Negative Normal NEGATIVE [facility] Comment on above: Performed By: #### E RUR #### [facility] [address] [place] [address] Nelida Lily LEUKOCYTES Negative Normal NEGATIVE [facility] Comment on above: Performed By: #### E RUR #### [facility] [address] [place] [address] Nelida Lily Nitrite Ql (U) Negative Normal NEGATIVE [facility] Comment on above: Performed By: #### E RUR #### [facility] [address] [place] [address] Nelida Lily pH (U) 8.0 [pH] Normal 5-9 [facility] Comment on above: Performed By: #### E RUR #### [facility] [address] [place], [place] [id number] Nelida Lily SPEC GRAVITY 1.020 Normal 1.005-<=1.025 [facility] Comment on above: Performed By: #### E RUR #### [facility] [address] [place] [address] Nelida Lily UA PROTEIN Negative Normal NEGATIVE/ TRACE [facility] Comment on above: Performed By: #### E RUR #### [facility] [address] [place], [place] [id number] Nelida Bautista UR MICRO IND NOT INDICATED Normal [facility] Comment on above: Performed By: #### E RUR #### [facility] [address] [id number] Nelidajose Bautista Urobilinogen Qn (U) 0.2 {Jose Carlos'U}/dL Normal 0.2 - 1. 0 [facility] Comment on above: Performed By: #### E RUR #### [facility] [address] [place], [place] [id number] Nelida Bautista POINT OF CARE GLUCOSEon 01-27 Glucose [Mass/Vol] 95 mg/dL Normal 74-106 [facility] Comment on above: Performed By: #### P OCGLUC #### [facility] [address] [place], [place] [id number] Nelida Bautista PREG HCG QUALon 02-23-2021 , QUAL Negative Normal NEGATIVE [facility] Comment on above: Performed By: #### P REG #### [facility] [address] [place], [place] [id number] Nelida Bautista PROF 14(COMP METB)on 021 Albumin [Mass/Vol] 3.6 g/dL Normal 3.5-5.0 [facility] Comment on above: Performed By: #### T HAYDE CMADM, CMP #### [facility] [address] [place], [place] [phone] Nelida Bautista Albumin/Globulin [Mass ratio] 0.9 {ratio} Normal [facility] Comment on above: Performed By: #### T HAYDE CMADM, CMP #### [facility] [address] [place], [place] [id number] Nelida Lily ALP [Catalytic activity/Vol] 103 U/L Normal 38-126 [facility] Comment on above: Performed By: #### T HAYDE CMADM, CMP #### [facility] [address] [place], [place] [phone] Nelida Lily ALT [Catalytic activity/Vol] 35 U/L Normal 9-52 [facility] Comment on above: Performed By: #### T JOÃO LOCK, CMP #### [facility] [address] [address] Nelida Lily Anion gap [Moles/Vol] 13.3 mmol/L Normal [facility] Comment on above: Performed By: #### T JOÃO LOCK, CMP #### [facility] [address] [address] Nelida Lily AST [Catalytic activity/Vol] 28 U/L Normal 14-36 [facility] Comment on above: Performed By: #### T JOÃO LOCK, CMP #### [facility] [address] [address] Nelida Lily Bilirubin [Mass/Vol] 0.2 mg/dL Normal 0.2-1.3 [facility] Comment on above: Performed By: #### T JOÃO LOCK, CMP #### [facility] [address] [place] [address] Nelida Lily Calcium [Mass/Vol] 9.0 mg/dL Normal 8.4-10.2 [facility] Comment on above: Performed By: #### T JOÃO LOCK, CMP #### [facility] [address] [place] [address] Nelida Lily Chloride [Moles/Vol] 108 mmol/L Critically high 98-107 [facility] Comment on above: Performed By: #### T JOÃO LOCK, CMP #### [facility] [address] [place] [address] Nelida Lily CO2 [Moles/Vol] 25.8 mmol/L Normal 22.0-30.0 [facility] Comment on above: Performed By: #### T JOÃO LOCK, CMP #### [facility] [address] [place] [address] Nelida Lily Creatinine [Mass/Vol] 1.00 mg/dL Normal 0.52-1.04 [facility] Comment on above: Performed By: #### T JOÃO LOCK, CMP #### [facility] [address] [place], [place] [address] Nelida Lily EGFR-AF [place] >60 Normal >=60 [facility] Comment on above: Performed By: #### T JOÃO LOCK, CMP #### [facility] [address] [id number] Nelida Lily EGFR-NON AF [place] >60 Normal >=60 [facility] Comment on above: Performed By: #### T JOÃO LOCK, CMP #### [facility] [address] [address] Nelida Lily Globulin (S) [Mass/Vol] 4.2 g/dL Normal [facility] Comment on above: Performed By: #### T JOÃO LOCK, CMP #### [facility] [address] [place] [address] Nelida Lily Glucose [Mass/Vol] 95 mg/dL Normal 74-106 [facility] Comment on above: Performed By: #### T JOÃO LOCK, CMP #### [facility] [address] [place] [address] Nelida Lily Potassium [Moles/Vol] 4.1 mmol/L Normal 3.4-5.0 [facility] Comment on above: Performed By: #### T JOÃO LOCK, CMP #### [facility] [address] [place] [address] Nelida Lily Protein [Mass/Vol] 7.8 g/dL Normal 6.1-8.2 [facility] Comment on above: Performed By: #### T JOÃO LOCK, CMP #### [facility] [address] [place] [address] Nelida Lily Sodium [Moles/Vol] 143 mmol/L Normal 137-145 [facility] Comment on above: Performed By: #### T JOÃO LOCK, CMP #### [facility] [address] [place] [address] Nelida Lily Urea nitrogen [Mass/Vol] 10.0 mg/dL Normal 7.0-17.0 [facility] Comment on above: Performed By: #### T JOÃO LOCK, CMP #### [facility] [address] [address] Nelida Bautista Urea nitrogen/Creatinine [Mass ratio] 10.0 mg/mg Normal [facility] Comment on above: Performed By: #### T JOÃO LOCK, CMP #### [facility] [address] [id number] Nelida Bautista TSHon 02-23-2021 TSH 1.157 uIU/mL Normal 0.470-4.680 [facility] Comment on above: Performed By: #### T JOÃO LOCK, CMP #### [facility] [address] [address] Nelida Bautista TSH RANGE SEE BELOW Normal [facility] Comment on above: Result Comment: <0.3 4 UIU/ml HYPERTHYROID 0.34-5.60 UIU/ml EUTHYROID >5.60 UIU/ml HYPOTHYROID Performed By: #### T JOÃO LOCK, CMP #### [facility] [address] [id number] Nelida Bautista XR CHEST 1 Von 02-23-2021 [...] by: JANESSA SKINNER Date: 2021-02-23 13:53 Normal [facility] Encounters Encounter Date Encounter Type Care [...] Available Start: 09-23-2023 End: 09-23-2023 ambulatory MARYANN VIZCARRA Not Available Start: 08-22-2023 End: 08-22-2023 ambulatory MARYANN VIZCARRA Not Available Start: 12-22-2021 End: 12-22-2021 ambulatory JARVIS RODRIGUEZ [facility] Start: 02-23-2021 End: 02-23-[address] DOCTOR GOODSON Facility: Payers Date Payer Category Payer Unknown [id number] 1985 Unknown [id number] 2.16.84 [id number] 1985 Unknown [id number] 2.16.84 [id number] 1987 Unknown [id number] 2.16.84 [id number] 1987 Unknown [id number] 2.16.84 [id number] 1987 Unknown [id number] 2.16.84 [id number] 1987 Unknown [id number] 2.16.84 [id number] 1987 Unknown [id number] 2.16.84 [id number] 1987 Unknown [id number] 2.16.84 [id number] 1987 Unknown [id number] 2.16.84 [id number] 1959 Unknown [id number] Summary Purpose Family History No Family History Records FoundNo Family History Records FoundNo Family History Records FoundNo Family History Records Found Advance Directives No Advanced Directives Records FoundNo Advanced Directives Records FoundNo Advanced Directives Records FoundNo Advanced Directives Records Found Additional Source Comments INFORMATION SOURCE (unrecogn ized section and content) DATE CREATED AUTHOR 02/28/2021 [facility] [place] [facility] DATE CREATED AUTHOR AUTHOR'S ORGANIZ ATION 12/24/2021 [facility] DATE CREATED AUTHOR AUTHOR'S ORGANIZ ATION 01/01/2022 [facility] DATE CREATED AUTHOR AUTHOR'S ORGANIZ ATION 01/27/2024 [facility] FOR RECORDS PERTAINING TO PATIENTS WHO [...] BE BASED ON THE PRIMARY CLINICAL RECORDS. [facility] provides no warranty or guarantee of the accuracy or completeness of information in this document.
[2024-01-30 08:04] VITALS: BP 112/88; PULSE 109
== END 2024-01-30 09:00 | disposition home or self-care (01) ==
LOC: FBCO 07:02 → FBC 07:56
PROVIDERS: Visit Provider Obstetrics & Gynecology
DX: O24.419 Gestational diabetes mellitus in pregnancy, unspecified control (principal)
CPT/HCPCS: 59025

== ENCOUNTER 2024-02-03 07:03 | Outpatient (OUT) | payer BC, SELFPAY ==
--- NOTE | 2024-02-03 10:06 | US_ITS ---
[address] [address] Patient Name: LOCO HICKS MRN: [id number] date: 1985 Sex: F Assigned Patient Location: [facility] Current Patient Location: [facility] Accession/Order Number: [id number] Exam Date: 02/03/2024 10:07 Report Date: 02/03/2024 10:26 At the request of: MARYANN VIZCARRA Procedure: US OB BPP w non-stress EXAMINATION: US OB BPP w non-stress HISTORY: Gestational diabetes mellitus O24.419 COMPARISON: No relevant comparison available. TECHNIQUE: Ultrasound biophysical profile was performed in the radiology department. non-reactive stress testing was performed by nursing staff in the birthing center. FINDINGS: BREATHING MOVEMENTS: 2 GROSS BODY MOVEMENTS: 2 TONE: 2 QUALITATIVE AMNIOTIC FLUID VOLUME: 2 PRESENTATION: CEPHALIC HEART RATE: 138.46 bpm AMNIOTIC FLUID VOLUME: 16.4 cm GESTATIONAL AGE: 35 weeks 2 days US/US OB BPP w non-stress IMPRESSION: Total biophysical profile score: 8 Electronically authenticated by: CADEN COX Date: 02/03/2024 10:26
[2024-02-03 10:23] VITALS: BP 122/82; PULSE 97
== END 2024-02-03 10:56 | disposition home or self-care (01) ==
LOC: US 07:03 → FBC 10:04
PROVIDERS: Visit Provider Obstetrics & Gynecology
DX: O24.419 Gestational diabetes mellitus in pregnancy, unspecified control (principal); Z3A.35 35 weeks gestation of pregnancy
CPT/HCPCS: 76818

== ENCOUNTER 2024-02-06 07:04 | Outpatient (OUT) | payer BC, SELFPAY ==
[2024-02-06 08:20] VITALS: BP 115/80; PULSE 93
== END 2024-02-06 08:43 | disposition home or self-care (01) ==
LOC: FBCO 07:04 → FBC 08:18
PROVIDERS: Visit Provider Obstetrics & Gynecology
DX: O24.419 Gestational diabetes mellitus in pregnancy, unspecified control (principal); Z3A.00 Weeks of gestation of pregnancy not specified
CPT/HCPCS: 59025

== ENCOUNTER 2024-02-09 21:04 | Outpatient (REF) | payer BC, SELFPAY ==
--- OUTSIDE RECORDS SUMMARY | 2024-02-09 21:08 | XMS_ITS | CCD ---
Author Organization [facility] Care Team Providers Care Program Administrator Name Role Phone NAINAC, DR OLSON Primary [...] Coding Summaryon 12-31-2021 Coding Summary HTMLBase 64 YpclfwpfFLf2tRs+PGhl YWQ+KM4NCBZyS17peYZa qY8FU6pFDR9YAQMMTYVE KR2YAZ1jqIF7XMnfU2Im biAv TilvcVUdTF94IOs9SCL0 jSkoSPtioO1ajMZwP5t6 MfFmBD68iO65JWihCCMc CpX7VwNrdhulfTIz K9doLsZuoDCzQrg+PHRh YmxlIHdpZHRoPScxMDAl MkXftHhzNJ7cPa1oHBDi LWNvbGxhcHNlOiBj e6vnUYLxHEduPW1yiAzi J4IwsXS1YPJdm1x3Jz42 dHI+DQHaPAP3yIoeRVup y172DyJfu2auFNZ2 eNRcLBtnCOF2G78gk5N7 IVSiZKDxQZT2rGF6dN8f cTvwbkpeC0JmlWZeSoM0 HNS6rOEkjE9fgNvr okvqcP0qMgi+V31ENE9J OIZXFQ4MNwe8E7ZsVjko dHI+SB26XRSwQI08rPJn aBHdh8bviTg3SpAw USDvCGW7iQhbFSajm9Le GVOgR68rlVJfj6C8QQNt pYcsjIDkByEukCF2mU3x JLasgcvzt1sbkskw Xpjtz9kijy60nU08H73c DWalPKXdGNE1ITQmSRMf sWfgri9ciR8vGq9+IDxj v9nov9yutYa1TsIq VPZlfnCzyUpwJEP0t9Bk Wa10T7GixNzqu7NkVod4 gw34mRVzd5L6kTQ2GStn TENfmZ5qVWqhRcE8 FTRtBfVgdB37oANwJOaa Nh8gjGxnbWdyVB1gAGGm yyeuTFVujN1kXYKptFNi zFszRZ0sRVJeoeft p133GlYoITT8FCBupZKv A8ByxK6jIiFpCUPdXYMb M0UqiQOxTFvuF205UFgx MhE7CEBbcmGeR5Ck NWHovSmbYvH7r1R7Xe7A v8NafapqKUN7YOauOUX3 VhQ8ZnLfTtE4V9VbPff6 HVFkzUdwJK4eP7Oe SFQqurjnqvwgpUP8ZPSg WGCaqN13nDYyRZivBs2f m0X0h534ZHHtJJIwdQ73 Rh5jnYisUVRiiAMA zT0lcreww0ttntgfXgUa RFBbJOd0XAl4XBMlkZnj SgBpVXE5MgW6WRE9pGZj pS1nrAskbaumxM1a Oyc+U45axE0iMRM1MTE1 elvdXMHzldGyGW09DC67 X5VjLgrwuGQvpOM+PGRp hfFypUmvEA1fFxCl w4eaq8ZwSDzdO9BcTXOc ADheFul4NIMoTDL4sPD3 bO4xMMQbTEjak0J6wQF7 S0OruuAnyz9qd2wt LHJgKRkoR32fuFPmx1P0 SIPluOL4PVFgfRdpIyQu kF51Ypw+ISTzpQubb8Uz Dqgxv0qrg4xuoDe1 IjMwJSIgdmFsaWduPSJ0 e6PeNj35J85wPFwnHSPh WLGyAXAaGHZllKxthl2j qU9hUo0+PGNvbCB3 cRC4yU6xSUXjEzO3QOeq S827QtHvwGRdDzbgm2qk p8ijjDf1IxFlNSKpajIu kBpeFPO9v2NrIp77 H04zYDrcZMBvSWFpRGCi WBOwhRehnb7ozH1vXb3+ PA3dl8txwz57gX50oYT+ DUWpEWN2jVhtXNjg AFYhlF9fLQehSqM9MWEe AzBgpZ39lSQaFAxfOm0k qNugzZasAQ3lRVYzyjhy h010BjSge7jzEHBk rCPkVLxhLQK3T28of3L3 HSLhNZBcTQJ0bWI2pU2x bGlnbjogbGVmdDsgdmVy lQyfLGfoXIngE258 IHRvcDsnPlBhdGllbnQg TpIgLOj0M5XdAkc5TJCy rKewZA7onRYnYLgbGl8r jPggzQxmAD8nJSCb huvoo326YcYwi8cuKFOt sDWqJJavDQL4F31am4W1 IIGcIBPzPXT3hCY0vM3v bGlnbjogbGVmdDsg vxPsyKcsRNncMWrhZ762 IHRvcDsnPkJpcnRoIERh gFG1BQ60FC87jTRvh2Z8 uVA1R7UlHTZsiyxr xsvcgRQ8KDSdCLUmeO22 Wx6jcZvrCp1iNMKoOWD1 VSGowJTaW8QvnP7oIxWw BYDoMPYfG3YomMKh QCjgC795DCjlUhH4OXIi mvTuV4TrWRFjoCrsIeV3 a4U4Le2BQ9N4GZ68GN66 qHBtj6T2vNC4Y5Hz VLVcvwofakbuaSW3WLFf SJPtcE20Hf4ibWbkVj3s DZLaXBY2VRJraWOiV6Ac rV6cYkXuFGRmBTYo J6QydSGeAJbcW453TBhv ObU3PGBfioSoC6XqYVNz zDmvWuG5c0P9Ll3TQOi9 KR29CO04yDWpd4C8 cZO8D6MzBGSykgbquupo dEU8GWHnMRLyrQ04Au2c wXpyDz6nTIDdLOT6MYWx uTLyF3SrpL7oNcCv YGEiEMFtF8JesBVbXHtb N022DPeiKqH4USCkxnSd W8YaRBFzbKtyUoG5p7T6 Ba6HCAQcMZ23GWP2 cXM9XH62ZO31X0AbQben dGFibGU+PHRhYmxlIHdp ZHRoPScxMDAlJyBzdHls XM0lHq8yNCHsMXTe vNtfhEHeRpShc1xsJSOf UHtpNE6cvZyrI7MiaES0 LCJae4g3Cg17K31mO0Nq dXA+ROXwrVA1hCT9 gE9pFhHfSsB6TZteF050 FwYjdGNqHdkkl9wqj4ug jHv0TyW4OBJpnsGcwBxk FMI3o2KaXz28E70t IHdpZHRoPSIxNSUiIHZh dQuvra0qkN8dXo8+PGNv lJV2tVB1xA9xYaAkRaB8 EUpeN144FoKvwELq Tiyxc4ahj2ntgIz8TjGx HQGqspFzuWbvBGG3g6Fa Ai66G4GmlVrlt3JvJxu9 sy09mWVvx4M9rWO2 D7VmAPGkzwrnvXJdwWqi WX9oHXBofyysNKRujO4g CZPjX6g7WkQqVwI4NKhw L0MxahA9PNHcgTWu XKahBRO1N78bu1K4DPNz IKWiECY1bNP2dT5nuNkd bjogbGVmdDsgdmVydGlj SAyoOWrcW961YYCi pEyaCOSetB9jXRNmhKXp vBvmWM3qXXTsanfiXmoV XFBCUIUVLZYBMuSBVJ95 RG32kHFwu3P7fHJ1 T1RwRYHsocldowvhpEO2 YICtDPUevG41dLCwXZvj Gj4ph7Q2z586QZPrPTJx eT23Hf4flYaeFWMp aYPWtS8vzmwul2aekxij FdJmBETwWLk2JDj2ZHIi cZshXeAgBMW8JmE4XDG9 iKPbtF8rfNrrlvec hH9xIkb+MDEvMDgvMTk4 ODwvdGQ+EWNnMQQ8pWnf ZYzuTDLhbR8mBUObV6a8 QbEaWxJ5DCxuR6Tj RWTscfnwQw07gS9yNfWx CaO0WXrrJ2JjxzN3FDWh aCZxFMxjFAL8W12qu0N0 WWYcXQUiQHU2qTY9 zJ8wyBzhqxzbaCRzvStt hxDczJolGEflWDlsE722 DAPtwCvfAjM3DQclXCDb NO77ZU03qNVwa8L8 wTE7O1NnYSGtlsmkxgdm mIK7JNRlXOZkzJ81pILi WNtiBb4bz9Y3n565INOg CYPwgO18Sr5irEbn LCIfgNJOpX8ubzpum2or ubisClPjLDKiMOi0HPs5 WEErjFsvLwNoQJD6GlY8 CLI2wJSmfB4xmVlv bmvflR8yRcq+RkVNQUxF ML66VH97iZAeg1D2kJC5 S4GyBHUgncudbepdiFF9 YRGkULEwxJ49rTGy YLkvTi9ai7J1b755NWHm KUVrnE77Ek2mnMtcZVBs gSNEtF1cclxcr7odaabc SdRoPZOuXYq0ADz4 SZGorDebJaApXIK9XtW6 HTM2gBVamQ7awXwatmlf yU8xTkd+W0T4L7MiPufb dHI+ME96UIPgQY23 kXGpeOKmd7bbxVo6XeEy VGTfKQN6cFhtUFlcu5Vm LFSjH72bqAGnl1R8MWCy bGxhcHNlOyBlbXB0 xG8iJNuurdihs8znjdhx Zanad6qbrf14yF47R77k IHdpZHRoPSIzMCUiIHZh iCnajj7zyK9gHl4+ UNVbhWN7gOO3aY7tJfFv ImT4WQzeZ660BzBctJIe Xdrfb9bzd6dzwMb1CsIr JSIgdmFsaWduPSJ0 s8JxQz12W94dJVcgLJDi MFVeACRxYSWwyPvapp8e vU1lEy5+YR9ka8njxk95 iT67uDD+PHRkIHN0 kKtaNDneZSYrzP8eLAhl AxT5SWGgPkQfvT11uJJg NDxaJn1naGlleSdnNL1f SOAwhoyqy762DlVa c0bvMIHvoBYfAScdBYX5 B70sg4U6EHLgCGByNBR5 pMO9mR8fpSywbsdkoSMb dDsgdmVydGljYWwt MUrnH304PZNfkSkyKnAx bSJeK9ysbaPLKM7yKldx dGQ+QOMeTIB8rSqvALru MWAmmI7eEIZuG0l3 YfJvVdO9LEpeR9QryfC5 NMCwzAEfJMWuoMVDgC6e lnlas7wcojygXlUoYGOp GLr3WGw5OIPeiUrp PoVyMNF1TxK4OHN3oHMu rK8geAltcxmsnY5gIvo+ RklOOjwvdGQ+PHRkIHN0 uYkfTDfeXFFvlC8b MUGlY2m5HoAcBlJ7DOlm W8ScsbH3URQwnBXhYIUe uMZHbW1ykqzcv5mqvsne CvNwFAYgMLk1OXh3 BNYqlWgkSbRtRRO2HwD2 DNB4nBCrjG0zjVxpdxcy cU4xXdp+TVJOOjwvdGQ+ EASdUUA1uYgoBJgf JEJkmH2rZUMzY4m4WaHw EtM1MNqjZ5JwatD6VXPa uQUaODNshAIVrD1spqay n7ygmjfiKvGcOHLe NRw2GNu2XBHdpPpkDlUn PNG4RrE4JTX9pEDrzZ5w hZxxbpkwkS3dMcy+UGF5 LIJ7NR83QY08V2Ps PjwvdGFibGU+PHRhYmxl IHdpZHRoPScxMDAlJyBz yVlbIP0lBf7zGLAxUNWj cQgiiOYcGsNov9xa YXB (more content not included)... [facility] Coding Summary HTMLBase 64 XktdhqqtQUz3zWw+PGhl YWQ+AT9BQQCaP14yaBKz vO2QL0eMEI8DUWOPFGGO WT1LVM9tzRW6KXghO1Ap biAv XrghzKUmKC04AHn5GMI2 gQpaICsetA3pzYJcT2z2 IuToSF09jA65LVfrETJx KqV2IcYeetbckAWv E5xeLeEsfCYqXyo+PHRh YmxlIHdpZHRoPScxMDAl CgXuqAxbGC2vHq6wLETk LWNvbGxhcHNlOiBj i5yfVBKgNEjnUP4csWpn H1PmcYO2WRMwu4a3Bs92 dHI+GKJwWYK1hJlgRMpw a781XhOmy6lwQMV0 gFDiRRmoGBN4N77la5P4 HTCaNMOfKGD3jSB0vL1o jIxovsqhF2YsjVRqYbI1 RLM7aKLouF7knGrd sywgyC5mZdb+C17ISR0U AVPMQK2KPbi3S5JaKxkb dHI+TZ44PTPiPS04zVQl yOEqr2puoWa9DqBm XCQiMYQ9fHeyPDlwe7Wz QSYiE91wsRBam4F7SNFl eNwgtDTtWoMsfEP4kE0w QBtztuxbc8xtetzs Punzx4qreo31bS31M07a JZhrYMXeIHD9JJClKISw dCbflj5jdP3mFh7+IDxj e6scm3eksOr9ApIj FKAzuaNtkNofTJJ8p7Jr Ax42U4AlcAqri5PxZlw0 vd60xNGaz1P2hMQ1FRjo SLKutZ9sHEoyUyY7 KKBbWdYymA25dPKkWPew Vx9wnDbfjIgdDO4iHOJq azeuXMMjcF9eDMXqzLPm nGogTX5nKFIhbxzx j341GoChYJI8PUPdcJUu P6LxkH6hIlEnJGYxQTJx L0DgaSAgHMqcF466TEjp VaE5ZOPxyeAvO5Cq KHHfwUdjFoN6n2U7Rm9O m2TdhweiVKS6VAviNCQ2 MnU4QgVsJqD8N2JlXux5 AUQfuXiuEX1sC1Nu ABUdcpfjaofjhLN1JPGq MTZlkR25lPMmUAsmBk3j j6W1f625OYCpCNQlwV84 Sb3drBveGLKfmLPZ wF5hrhjdk1zmicwnTcGk NTKfLOh4QBl1CQCkjQyx SuClSUL8EsS5SKJ8iWVt wQ9fjQozfmpabF0w Oyc+H35kbD5rTOH0ESY2 flyhHYKcalBcKQ07XG50 S2EhQpgwqRDlgLT+PGRp uqWvpXifLI3kYiFl f5cgb6UpEIiiR0WhUGOx MTiyPxc6ELIzVND3zWS0 nM0nUQQyMSayh8K8oCH1 W2VxflVbra7mi5sv ZZMeIGebE44xtICbx9U9 OHJffSD6AMDvvJdrJfIa zD18Tqi+GWTieZiyu9Vd Mqgrl4yxy6aywBi9 IjMwJSIgdmFsaWduPSJ0 w9CiGs21F84kTDesOSRi WUZeKLEpGJOgfZtwnw6s pN7aYm9+PGNvbCB3 jNP4qF8jSRFyOoK1MZjs B176AvUusUIuMuvez4tm f8ksaVa7CfNqPFNyvmGd xSuvHPX9s8QzQi19 J69bIZlgAMFrSYQyJMLs MKQhgOejmv3npH8oNx8+ ZW8jh4rnhv09yC29rDB+ XZDwULM7cQxyFKjq FJTavH6sXDeyKjQ0YHDq MoRvnC78oEKbXXffVq5m zGfkoCsnJK5pZYEqoocj c176AiJjz7yrPHJg vLTkKMgoMVE2P66hy9Z3 IQSuDIApSCR8iWQ3eY1k bGlnbjogbGVmdDsgdmVy qJwpRQriRNjhS629 IHRvcDsnPlBhdGllbnQg NgApTGd1M1BeOff4UNIq gShrUC4crMMtCAsvQf0c wLhcjJoaGR3dSEMe wmpdy214XbZsp2vjTCCq jSVwXZspRAJ3S16eg6C5 VCXiALYvOPK9hSH1kI1q bGlnbjogbGVmdDsg szXenUtyPXuqDAmiI952 IHRvcDsnPkJpcnRoIERh jWQ0OQ86YE38pRRau7Q6 qWA0Z5GoQIIpelxu yfrkeXN4SKXxYSMiwW80 So5hxZwpJy1jHXOeDXB2 ZOVzqPMpL1TooC3uLbAg IIEoLDBaR6PmxJIu ZCuoV434XTfoOrL9XBJo xoBfP5SbCFJpbOmdVxT6 x3N0Ye1WE9U8QP74PG61 cARio6X9cPW5G9Cc FIHvbguoskdlqQG8KERw IBBpjR84Mt5bmLxwZx9o BUMwRXV2GIMbpCOjH8Ms gW3iHnCuGOXuKIMg R2NlhXAhLOmsG271GUhg CfT0YTRbzzPaP6FtWTEa cGeyKtY3f7N9Eh7IJKg0 KL40CT62eRNcj9J9 fSE7T1TmZOWumgvinnwc qTD8FIEvVXDlhS28Pw6j rWvuOh2dCUNrSHE3ZIKf vGHrG8ZyqS6wFkXu UANpJFMuZ5NgyJDnOQdz P043IDobRfQ2VIHxxjPz R7JaOAFwyBbbHbJ6x3I1 Yz9HJYPpDN87WYQ1 hBT1XF52WB58U6EnWjbe dGFibGU+PHRhYmxlIHdp ZHRoPScxMDAlJyBzdHls WK8iQc4tIHXiRJIk nWzffFXdTrBzj6cxUAUx ORieKL5smGhnT3LunUY5 WHHmb5z4Si20U03dD9Vu dXA+GQDzrAR6yKA8 lG6cLdWfCsJ2XMjeU862 VwTpfQXcQejbn3nwv4ja hEt5OvO5QSYzqnKxiVko YDJ1t0ZgPd86C18n IHdpZHRoPSIxNSUiIHZh rAqmui1umA6oNr0+PGNv zCI5oIG8bG1pWmNnNwX7 EYztV496LxRdgRMh Thxoj2rgf5uaxVt7KbXc EGOssaTmePgdCMP7z5Dz Zc14F6KvzBajn4FoFgk9 xx83dXSty9G2wSV3 S1SvQBDhesyccNBztEmf EW3lGQWpgvifSXIvoS4s NBOwM2f2PtShAcM2MPav Y4QqwrW8IBEhmVWj LAvqEES3U51pj4B3INVu IHPrCAL1jWT2bY2ofRxa bjogbGVmdDsgdmVydGlj POzqMQrxQ633LRZv eCbhCYIhyT0hSFZccTRm rNlrSZ7mLHXsjwltCqcK NSREVPTXSHFJScJNFR63 FX92qAUro5W5jCM0 E3CpZLQvtrvkbrtllNB5 UWKuXYCghR94tQJjXXdx Zi8ey9F6i447NKJgTZFz cL86Ts6idArrKAWk iSSQuA3hhzdex7giquum ZwGcBXVeZAb5EFv6XVNx zFkuDuAaMFN4YwA4ANH3 mXFgmY8jgPrlkvnk yY3eSjn+MDEvMDgvMTk4 ODwvdGQ+RYJgFVE0dFpa KWbfCWVvoJ1gUUXbH5k4 FnNiIwD4VZyrW8Fa DFUogmafKc35fL7kUlCc WmM5TYdeR0CatkR8CUQd wIHtKImcRIE4R23zo8C0 ZPQyPQTuCUC3vWV4 kS8mnYkakxwcmSMowOdn leMwiDfsDSkxFBvlL745 EFAgrAqyElH6ISzqHRCu WT86XD21dSNvs4A1 iRH5G0LhTPGlamfcaqpm vLH0EBAnCAEwuH81dTRz MTxdJr0pn8D1f287YFDk ZJRbbV36Zs0wiArd KQVayCYGiX3orwfmd4hc xfoaXcHeSCLvYSd4KKo6 IRYvgLztFuQsAJD2VwK2 THM3fJVxoH0onDcn jbadsC3pDoe+RkVNQUxF FQ76CG29xIZeg6P7rDK7 F2MyDXObmkpemcfxfXH1 DNWjPVXraR87mTRm OVbvGb9hz9G8f043EGSr COWqiQ69Nz1fpBprKZZc vXUDjZ7nntnaq5kaervq QrTaYVGxEEs1MOo0 ERDvlAlqKnNcGVL4ZcS4 MFC5wPWtpD5lnYatztrg bI0hGbw+EE4jidoxfaS1 UZ36EK54Z1UzRoqm dGFibGU+PHRhYmxlIHdp ZHRoPScxMDAlJyBzdHls KA7tQj2cISZhAYFfsKti kDZoQhPfk9hvAKJs RMasHY6kfZweX6FikFA1 QJRuz9y2Eg34S52tR7Lo dXA+IENhqVS9xTX8jC6y FoHpXaJ6XKwzN628 VuLpcXUjRmqsd8hkp3ra jWd6CoMwBNSapbTopAqt HBH8g5VuUb34Z70hRXaf ZHRoPSIyMCUiIHZh qEtnew8wcN6rYy7+PGNv lKQ6rLA5gQ2lZdLxYpZ6 TDufK160DtFbxRWvObxb K21wZ7IhpYO+PHRy Xab2PGYjoHlsQI2exJSm XYnwLp5tYUW9ZcJsAdIe AMejX1XuWCOegbbwzbbg sUO8MVLeZSAvlI58 Za2gsYpuIz0jUJWyMPA0 RHIsaHJxZ1QtmI0nTnEz EUNiWLAkQ6YeuCIuGNwe B045IYbqTjD1OWXw csJdR2XwEPZqyUpgQyV3 k6Y5Hx6QvSyysOKcLF6q IdUyEDx4D1PyZtn8BLIm iAqqBX0cmXYlRRmr Ww6ioNvtiRgvGY0cXGAt ydekw542UnUsc6jbDVEh iDEbANxmXSK3J66fz1J5 WBAhMLKrUTP3zKR0 sW3ugNfkjwgvnPEpkPlq meEkhQahSSfkMJirM734 TIQwnKreReJFRih5Q2Vy Ryn2FMWquHmeJY4i iRLfBRmdBm5jbZwybDgn QV6hQUBtycbxr742UcCu z2bfUPOgkRHpZZhaLPR2 Q84br7Z7JUMfOVRc FDB5gVX5uV3glCpqzaak bGVmdDsgdmVydGljYWwt FZhhN790XWBseBrxKa1O Skk0T8HgNey4OTXc xPdgYK6yeIAwKChpGl0h qPfrqSqnIQ1kBCAmkedf u137VlGft9lbTMCgxEDp QFeeDPQ1S76gc3L4 BMCoYLYnACY2gUR7aT3k bGlnbjogbGVmdDsgdmVy pSxwEYjwFYahT538MVFy cDsnPlBheWVyOjwv dGQ+PO10bt42T1ClUuut Emc8RZXeDTR0vGJ5iD5p MDUtSShyw8Q7mQN5C2Iz ayWsva4uy4idLPAe ZTo (more content not included)... [facility] Ambulance Noteon 12-26-2021 Ambulance Note [id number] [id number] [facility] ED Clinical Summaryon 2021 ED Clinical Summary [facility] - Emergency Department [address] [place], [place] [id number] ED Clinical Summary PERSON INFORMATION Name: LOCO HICKS Age: 36 Years Sex: FEMALE : 1985 MRN: Acct#: Visit Reason: Dizziness; FACIAL NUMBNESS, DIZZINESS Arrival: 12/21/2021 18:23:41 Discharge: 12/22/2021 00:02:00 LOS: 000 05:39 Check In: 12/21/2021 18:23:41 Checkout:12/22/2021 00:02:00 Address: [address] [place] [id number] PCP: Provider, None PROVIDER INFORMATION Provider Role Assigned Unassigned Alvin Bryan ED Provider 12/21/2021 18:26:52 12/21/2021 18:30:20 Sanjuana Ramirez POLICE SHIFT COMMANDER Nurse 12/21/2021 18:29:17 12/21/2021 23:14:12 MARIAJOSE EDEN ED PA 12/21/2021 18:30:25 Kerline Cartagena POLICE SHIFT COMMANDER Nurse 12/21/2021 21:46:32 Kerline Merrill RN ED [...] Known Medication Allergies PHYSICIAN DOCUMENTATION Patient: LOCO HIKCS Age: 36 years Sex: FEMALE : 1985 [...] - pharynx pink and moist. NECK: -Supple ([id number]): non-tender. CARD: -Rate and rhythm: Regular -Edema: No -Calf pain: No RESP: -Respiratory effort and chest excursion with respirations: Normal -Breath sounds equal bilaterally: Clear -Wheezes: No -Rales: No BACK: -Signs of pain with movement: No ABD: -Distended: No (more content not included)... Normal [facility] ED Patient Education Noteon 12-22-2021 ED Patient Education Note Education Materials [facility] ED Patient Summaryon 022 ED Patient Summary [facility] - Emergency Department [address] [place] [id number] PATIENT DISCHARGE INSTRUCTIONS Patient Information Name: LOCO HICKS Age: 36 Years Date of : 1985 Reason For Visit: Dizziness; FACIAL NUMBNESS, DIZZINESS Arrival Time: 12/21/2021 18:23:41 Primary Care Physician: Provider, None Attending Physician: Alvin Bryan Comment: Visit Diagnosis: Diagnoses This Visit Dizziness ([id number]) Paresthesias (R20.2) Visual disturbance (H53.9) Prescription Information: If you have been given a prescription for narcotics, seek immediate medical attention if you have any difficulty breathing or any sudden status changes such as confusion and sleepiness. If you or anyone you know is experiencing suicidal thoughts, mental health, alcohol and/or drug addiction problems; contact the [facility] 17/02 Crisis Hotline -Text [phone] to [phone]. If you received any narcotics, sedation, or [...] you received today in the [facility] Emergency Department were for an urgent problem and are not intended as complete care. It is important for you to follow up with a doctor, nurse practitioner, or physician?s assistant superintendent for curriculum for ongoing care. If your symptoms become [...] of medications post discharge. Please inform your athlete marketing agent/provider of your visit and for further instruction [...] for Disease Control and Prevention March 2014 [facility] MRI BRAIN W WO CONTRASTon MRI [...] Ean Cedillo MD 12/22/21 Final result Normal [facility] MRI CERVICAL SPINE W WO CONT [facility] 12-22-2021 MRI CERVICAL SPINE W [...] Ean Cedillo MD 12/22/21 Final result Normal [facility] [id number] 12-22-2021 SARS-CoV-2 (COVID-19) RNA SHELBI+probe Ql (Unsp spec) Not detected Normal NOTDET [facility] Comment on above: Result Comment: [...] management decisions. Fact sheet for Healthcare Providers: https://www.fda.gov/media/895309/download Fact sheet for Patients: https://www.fda.gov/media/826278/download Methodology: Isothermal Nucleic Acid Amplification Performed By: #### C [address]VR[place] #### [place] [address] Postal Service Clerk: Campbell Simmons MD SARS-CoV-2 (COVID-19) PCRon 12-22-2021 Employed in healthcare? No Invalid Interpretation Code [facility] Comment on above: Performed By: #### 6 [id number] ####[facility] (DEFAULT)[address] [place] [address] Group care resident? No Invalid Interpretation Code [facility] Comment on above: Performed By: #### 6 [id number] ####[facility] (DEFAULT)[address] [place] [address] In ICU? No Invalid Interpretation Code [facility] Comment on above: Performed By: #### 6 [id number] ####[facility] (DEFAULT)[address] [place] [address] status? Not Invalid Interpretation Code [facility] Comment on above: Performed By: #### 6 [id number] ####[facility] (DEFAULT)[address] [place] [address] SARS-CoV-2 (COVID-19) RNA SHELBI+probe Ql (Unsp spec) Not detected Normal Not Detected [facility] Comment on above: Result Comment: Perf ormed by PCR methodology. Performed By: #### 6 [id number] ####[facility] (DEFAULT)[address] [place] [address] SARS-CoV-2 (COVID-19) RNA SHELBI+probe Ql (Unsp spec) No Invalid Interpretation Code [facility] Comment on above: Performed By: #### 6 [id number] ####[facility] (DEFAULT)[address] [place] [address] Symptomatic as defined by CDC? No Invalid Interpretation Code [facility] Comment on above: Performed By: #### 6 [id number] ####[facility] (DEFAULT)[address] [place] [address] Transfer Noteon 12-22-2021 Transfer Note medication list sent with patient, Complete ED chart sent with patient. CD and med list sent w. patient to Hospital [Electronically Signed on: 12/22/2021 00:05 EDT] Nadya Garcia [Verified on: 12/22/2021 00:05 EDT] Nadya Garcia [facility] Transfer Note [id number] #1.00OTGTIFF [facility] Transfer Note [id number] #1.00OTGTIFF [facility] Transfer Note transport called, [facility] called for transport to [facility]. Willie stated will call when back in area from [facility] Trip. [Electronically Signed on: 12/21/2021 22:14 EDT] Nadya Garcia [Verified on: 12/21/2021 22:14 EDT] Nadya Garcia [facility] .Auto Diff 1on 12-21-2021 Auto Sterling % 7 % Normal 12 [facility] Comment on above: Performed By: #### 7 407295, [id number], 7117362, 73459075, 9341472, 9664159, 8277028028, 2730910, [id number] ####[facility] (DEFAULT)[address] [place] [address] Baso Abs# 0.0 x10 Normal 0.0-0.2 [facility] Comment on above: Performed By: #### 7 030803, [id number], 7490265, 63259535, 5379528, 6282513, 3268612077, 3241670, [id number] ####[facility] (DEFAULT)[address] [place] [address] Basophils/100 WBC (Bld) 0.4 % Normal 0.2-2.0 [facility] Comment on above: Performed By: #### 7 330562, [id number], 7227355, 96582468, 0008666, 0899925, 7343333874, 5293137, [id number] ####[facility] (DEFAULT)[address] [place] [address] Eos Abs# 0.1 x10 Normal 0.0-0.4 [facility] Comment on above: Performed By: #### 7 862244, [id number], 0359375, 35945246, 0160041, 4864956, 9057040870, 7490493, [id number] ####[facility] (DEFAULT)[address] [place] [address] 88425 Eosinophils/100 WBC (Bld) 0.7 % Low 0.9-4.0 [facility] Comment on above: Performed By: #### 7 147638, [id number], 7562272, 59018498, 7457807, 2187602, 6675734815, 8558836, 4040901902 ####[facility] (DEFAULT)[address] [place] [address] 91775 Lymph Abs# 3.2 x10 High 1.3-2.9 [facility] Comment on above: Performed By: #### 7 758038, 3496269648, 7954404, 66497653, 4352215, 9811114, 2065783688, 1095885, 1582790262 ####[facility] (DEFAULT)[address] [place] [address] 49089 Lymphocytes/100 WBC (Bld) 40 % Normal 14-48 [facility] Comment on above: Performed By: #### 7 813091, 1467402889, 3180145, 33611657, 9729897, 7061447, 1844448157, 4460022, 9630800579 ####[facility] (DEFAULT)[address] [place] [address] 05981 Sterling Abs# 0.6 x10 Normal 0.0-0.8 [facility] Comment on above: Performed By: #### 7 054568, 5544719372, 4272257, 73271327, 1749247, 2021067, 1386450313, 0848477, 4994077914 ####[facility] (DEFAULT)[address] [place] [address] 12996 Neut Abs# 4.3 x10 Normal 1.5-9.2 [facility] Comment on above: Performed By: #### 7 590303, 0564546149, 3427658, 82882704, 7557095, 1290131, 1598836863, 8615744, 2747391048 ####[facility] (DEFAULT)[address] [place] [address] 96934 Neutrophils/100 WBC (Bld) 53 % Normal 44-88 [facility] Comment on above: Performed By: #### 7 001658, 5880821039, 0886428, 67069426, 8333899, 7218907, 2333712017, 0603933, 5218213484 ####[facility] (DEFAULT)[address] [place] [address] 45386 CBC w/ Auto Diffon 2 Erythrocyte distribution width (RBC) [Ratio] 14.3 % Normal 11.5-15.0 [facility] Comment on above: Performed By: #### 7 690570, 5212661074, 7376453, 74720163, 2261548, 1715604, 8457960415, 1836597, 7779760750 ####[facility] (DEFAULT)[address] [place] [address] 67761 Hematocrit (Bld) [Volume fraction] 42.3 % High 33.7-40.4 [facility] Comment on above: Performed By: #### 7 539006, 7338760372, 0154165, 25076586, 1245121, 4167221, 8291444662, 0925594, 5999884762 ####[facility] (DEFAULT)[address] [place] [address] 03336 Hemoglobin (Bld) [Mass/Vol] 13.7 g/dL Normal 11.3-15.9 [facility] Comment on above: Performed By: #### 7 114480, 5096589766, 4096053, 95044765, 5269857, 3409698, 0197393255, 4105320, 6530006320 ####[facility] (DEFAULT)[address] [place] [address] 40152 Instr WBC 8.2 x10 Invalid Interpretation Code [facility] Comment on above: Performed By: #### 7 484416, [id number], 8552599, 15707511, 5942684, 8229699, 4899309336, 1023415, 4149599358 ####[facility] (DEFAULT)[address] [place] [address] 78893 Man Diff? Auto Normal [facility] Comment on above: Performed By: #### 7 174628, 9365523959, 3163592, 73425320, 9396150, 8822938, 6149503239, 8878520, 8762914107 ####[facility] (DEFAULT)[address] [place] [address] 98383 MCH (RBC) [Entitic mass] 31 pg Normal 24-34 [facility] Comment on above: Performed By: #### 7 020468, 9075740487, 5847548, 18823066, 1418991, 8102718, 5099104621, 0820322, 9760817414 ####[facility] (DEFAULT)[address] [place] [address] 03430 MCHC (RBC) [Mass/Vol] 32 g/dL Normal 26-37 [facility] Comment on above: Performed By: #### 7 468945, 6452756200, 5026878, 13879260, 9301513, 9744826, 3853476201, 7494777, 2860081298 ####[facility] (DEFAULT)[address] [place] [address] 87682 MCV (RBC) [Entitic vol] 96 fL Normal 81-100 [facility] Comment on above: Performed By: #### 7 294042, 0658628659, 5470237, 07221705, 7799179, 1649969, 3822838890, 0498046, 4987091362 ####[facility] (DEFAULT)[address] [place] [address] 02036 Platelet 363 x10 Normal 138-427 [facility] Comment on above: Performed By: #### 7 575121, 3080361808, 6018525, 34699184, 8831921, 5311445, 5552070116, 8720623, 1007822398 ####[facility] (DEFAULT)[address] [place] [address] 64022 Platelet mean volume (Bld) [Entitic vol] 10.2 fL Normal 6.3-10.2 [facility] Comment on above: Performed By: #### 7 913173, 1055690881, 3763070, 22573248, 3939284, 7756025, 0776065516, 1959411, 0769910618 ####[facility] (DEFAULT)[address] [place] [address] 70697 RBC 4.42 x10 Normal 3.70-5.30 [facility] Comment on above: Performed By: #### 7 018239, 0555986467, 9152256, 67765116, 7487718, 7714623, 6869194449, 8115652, 0507564321 ####[facility] (DEFAULT)[address] [place] [address] 50685 WBC 8.2 x10 Normal 3.5-10.5 [facility] Comment on above: Performed By: #### 7 132724, 7361360757, 9141537, 13988590, 4106653, 1447956, 7563786940, 2593618, 5867987761 ####[facility] (DEFAULT)[address] [place] [address] [facility] Standardon 12-21-2021 eGFR Non AA 57 mL/min/1.73m2 Invalid Interpretation Code [facility] Comment on above: Performed By: #### 7 009186, [id number], 6483082, 96815940, 2690228, 7781986, 5618260746, 0919675, [id number] ####[facility] (DEFAULT)[address] [place] [address] 09549 eGFR AA >60 Invalid Interpretation Code [facility] Comment on above: Result Comment: Tinner Helper nathalia Kidney disease could be indicated at eGFRs of less than 60 ml/min/1.73m2. Kidney Failure is indicated at less than 15 ml/min/1.73m2 Performed By: #### 7 342815, [id number], 7878309, 89799007, 4084363, 3622951, 1320202763, 0451353, [id number] ####[facility] (DEFAULT)[address] [place] [address] 45455 Albumin [Mass/Vol] 4.7 g/dL Normal 3.5-5.0 [facility] Comment on above: Performed By: #### 7 728015, [id number], 2585240, 11207977, 8446770, 6880387, 2521901919, 6367000, [id number] ####[facility] (DEFAULT)[address] [place] [address] 99812 Albumin/Globulin [Mass ratio] 1.1 {ratio} Low 1.4-2.6 [facility] Comment on above: Performed By: #### 7 955889, [id number], 8936490, 13632110, 4478937, 4999702, 8003798830, 8292953, 2330603578 ####[facility] (DEFAULT)[address] [place] [address] 14647 Alk Phos 99 IU/L High 32-91 [facility] Comment on above: Performed By: #### 7 076470, [id number], 5000791, 04783517, 2444541, 4302217, 6194405867, 1158517, 9665868606 ####[facility] (DEFAULT)[address] [place] [address] 66752 ALT [Catalytic activity/Vol] 32.0 U/L Normal 14.0-54.0 [facility] Comment on above: Performed By: #### 7 437972, 9351916004, 4329548, 07937899, 2007803, 5459360, 1456873764, 0678540, 2292794646 ####[facility] (DEFAULT)[address] [place] [address] 28067 Anion gap [Moles/Vol] 23.0 mmol/L High 5.0-19.0 [facility] Comment on above: Performed By: #### 7 957989, [id number], 6861604, 44335259, 8555867, 9781177, 9258307756, 4222173, 7668127557 ####[facility] (DEFAULT)[address] [place] [address] 61918 AST [Catalytic activity/Vol] 41 U/L Normal 15-41 [facility] Comment on above: Performed By: #### 7 231839, 8673503825, 1115637, 95110616, 6035002, 2155369, 5464543592, 6664273, 6407299404 ####[facility] (DEFAULT)[address] [place] [address] 38711 Bili Total 0.4 mg/dL Normal 0.3-1.2 [facility] Comment on above: Performed By: #### 7 968159, 0561029228, 2226063, 30838688, 2320077, 0337279, 5831440185, 0553179, 6605774259 ####[facility] (DEFAULT)[address] [place] [address] 31001 Calcium [Mass/Vol] 10.2 mg/dL Normal 8.9-10.3 [facility] Comment on above: Performed By: #### 7 191440, 5684209569, 6884731, 63647494, 4026609, 1578842, 0427218090, 3370169, 0786188879 ####[facility] (DEFAULT)[address] [place] [address] 22758 Chloride [Moles/Vol] 96 mmol/L Low 101-111 [facility] Comment on above: Performed By: #### 7 214568, 9795387601, 2677685, 81053847, 5457172, 5702378, 8808386916, 7693357, 9786282627 ####[facility] (DEFAULT)[address] [place] [address] 97760 CO2 [Moles/Vol] 24 mmol/L Normal 21-32 [facility] Comment on above: Performed By: #### 7 094728, 1006946130, 7900525, 12693723, 2971117, 1775168, 2833600484, 2591282, 1671803729 ####[facility] (DEFAULT)[address] [place] [address] 10937 Creatinine [Mass/Vol] 1.10 mg/dL Normal 0.60-1.30 [facility] Comment on above: Performed By: #### 7 679297, 1354787893, 8586788, 07092534, 6684040, 9786800, 3781029896, 2151929, 8097579748 ####[facility] (DEFAULT)[address] [place] [address] 66166 Globulin (S) [Mass/Vol] 4.2 g/dL Normal 1.5-4.3 [facility] Comment on above: Performed By: #### 7 541588, 6416263882, 7263617, 81200246, 5235612, 3451148, 2866333001, 8110187, 4764355592 ####[facility] (DEFAULT)[address] [place] [address] 06390 Glucose [Mass/Vol] 97.0 mg/dL Normal 74.0-118.0 [facility] Comment on above: Performed By: #### 7 662100, 0563204744, 5886154, 31542215, 6901250, 7815959, 0992048293, 2530834, 6566182107 ####[facility] (DEFAULT)[address] [place] [address] 77676 Osmolality 278 mOsm/L Invalid Interpretation Code [facility] Comment on above: Performed By: #### 7 033174, 7155917970, 0663604, 26727672, 2949541, 1542926, 2328531504, 1607598, 5026437828 ####[facility] (DEFAULT)[address] [place] [address] 81280 Potassium [Moles/Vol] 3.5 mmol/L Low 3.6-5.1 [facility] Comment on above: Performed By: #### 7 853027, 8035269308, 0596510, 37884174, 4618212, 9243873, 9070368182, 6397537, 0264437338 ####[facility] (DEFAULT)[address] [place] [address] 62832 Protein [Mass/Vol] 8.9 g/dL High 6.5-8.1 [facility] Comment on above: Performed By: #### 7 638097, 3282843986, 8707706, 21315331, 9424830, 5506286, 8259034331, 8234411, 8692699117 ####[facility] (DEFAULT)[address] [place] [address] 58723 Sodium [Moles/Vol] 139.0 mmol/L Normal 136.0-144.0 [facility] Comment on above: Performed By: #### 7 466539, 7070695351, 6301654, 44741815, 6997097, 7840003, 4135273501, 7020800, 1169553541 ####[facility] (DEFAULT)[address] [place] [address] 34869 Urea nitrogen [Mass/Vol] 15 mg/dL Normal 8-26 [facility] Comment on above: Performed By: #### 7 012830, 4708878710, 2146468, 52648490, 3933420, 7179936, 9422548536, 4300184, 7702153659 ####[facility] (DEFAULT)[address] [place] [address] 41541 Urea nitrogen/Creatinine [Mass ratio] 14.0 mg/mg Normal 4.6-16.2 [facility] Comment on above: Performed By: #### 7 732196, 6761468224, 1249374, 87062780, 7689212, 0117579, 6224746970, 4758465, 9457805485 ####[facility] (DEFAULT)[address] [place] [address] Head or Brain w/o Contras ton [...] Liver cirrhosis ? Performed By: #### 7 014460, 8595580714, 5891705, 17239259, 0766775, 1042575, 9785475068, 6187124, 1513747354 ####[facility] (DEFAULT)[address] [place] [address] ED Note - Otheron 12-21-2021 ED Note - Other Neurology called back from [facility], on phone with Mariajose LLANES [Electronically Signed on: 12/21/2021 21:29 EDT] Nadya Garcia [Verified on: 12/21/2021 21:29 EDT] Nadya Garcia [facility] ED Note - Other paging Neurology through [facility] for consult for Mariajose LLANES [Electronically Signed on: 12/21/2021 21:12 EDT] Nadya Garcia [Verified on: 12/21/2021 21:12 EDT] Nadya Garcia [facility] ED Note - Physicianon 2021 ED [...] - pharynx pink and moist. NECK: -Supple ([id number]): non-tender. CARD: -Rate and rhythm: Regular -Edema: [facility] ED Note-Nursing Spud Driller assumed care for pt at 2124. Pt [...] Comment on above: Performed By: #### 2 [id number] #### [facility] (DEFAULT) [address] [place] [address] 43269 Extra Morgan 12-21-2021 Tube Collected Yes Invalid Interpretation Code [facility] Comment on above: Performed By: #### 2 690544, [id number] #### [facility] (DEFAULT) [address] [place] [address] 73673 Extra Redon 12-21-2021 Tube Collected Yes Invalid Interpretation Code [facility] Comment on above: Performed By: #### 7 668829, 1497941818, 0316618, 31154754, 2444638, 6046208, 8893033363, 6327357, 5733044118 #### [facility] (DEFAULT) [address] [place] [address] 62320 Magnesiumon 12-21-2021 Magnesium [Mass/Vol] 2.02 mg/dL Normal 1.80-2.50 [facility] Comment on above: Performed By: #### 7 559771, 9612451262, 9529927, 32799127, 0971916, 9605026, 9959525324, 4952170, 2430305732 ####[facility] (DEFAULT)[address] [place] [address] 31426 PTon 12-21-2021 INR Coag (PPP) [Relative time] 0.94 {INR} Normal 0.91-1.11 [facility] Comment on above: Performed By: #### 7 182624, 6706657542, 0565950, 03721936, 0579228, 3008637, 1237659371, 0590099, 0940423452 ####[facility] (DEFAULT)[address] [place] [address] PT 10.2 second(s) Normal 9.7-11.8 [facility] Comment on above: Performed By: #### 7 202089, 7408127852, 8351289, 44538586, 8238042, 3570782, 6752268933, 6446808, 0661422889 ####[facility] (DEFAULT)[address] [place] [address] 60725 PTTon 12-21-2021 PTT 26 second(s) Normal 25-35 [facility] Comment on above: Performed By: #### 7 190378, 4652544188, 5112558, 67742438, 5396778, 0310942, 4129539011, 1392131, 4493791898 ####[facility] (DEFAULT)[address] [place] [address] 49232 Test Urine 1on U Preg Negative Normal [facility] Comment on above: Performed By: #### 1 [id number], [id number] ####[facility] (DEFAULT)[address] [place] [address] 98801 U Preg Internal Control Pass Normal [facility] Comment on above: Performed By: #### 1 [id number], [id number] ####[facility] (DEFAULT)[address] [place] [address] 21564 Salicylateon 12-21-2021 Salicylate Lvl <4.0 Normal 0.0-30.0 [facility] Comment on above: Result Comment: Sali cylate ranges less than 30 mg/dL are considered to be therapeutic. Levels greater than 30 mg/dL are considered toxic and levels greater than 60 mg/dL may be lethal. Performed By: #### 2 384117, [id number] #### [facility] (DEFAULT) [address] [place], [place] [address] TnI HSon 12-21-2021 Troponin I High Sensitivity <2 Normal <=15 [facility] Comment on above: Result Comment: Male Baseline Delta 1Hr (Note pg/mL=ng/L) <20pg/mL 50-60% >20pg/mL 20% Female Baseline Delta 1Hr <15pg/mL 50-60% >15pg/mL 20% Other Baseline Delta 1Hr <18ng/mL 50-60% >18ng/mL 20% ([employer] [place] Guidelines February 2018) Performed By: #### 7 948035, 3544259106, 7011951, 21683705, 0638050, 9912547, 0564492456, 8599083, 0150250825 ####[facility] (DEFAULT)[address] [place] [address] 83278 Triage Panel 1212-21-2021 Triage Internal Control Pass Normal [facility] Comment on above: Performed By: #### 1 [id number] ####[facility] (DEFAULT)[address] [place] [address] 31685 U Amph Scr Negative Normal [facility] Comment on above: Performed By: #### 1 [id number] ####[facility] (DEFAULT)[address] [place] [address] 08567 U Vanesa Scr Negative Normal [facility] Comment on above: Performed By: #### 1 [id number] ####[facility] (DEFAULT)[address] [place] [address] 42578 U Benzodia Scr Negative [facility] Comment on above: Performed By: #### 1 [id number] ####[facility] (DEFAULT)[address] [place] [address] 25150 U Cannab Scrn Negative [facility] Comment on above: Performed By: #### 1 [id number] ####[facility] (DEFAULT)[address] [place] [address] 97384 U Cocaine Scr Negative [facility] Comment on above: Performed By: #### 1 [id number] ####[facility] (DEFAULT)[address] [place] [address] 29446 U Methadone Scr Negative [facility] Comment on above: Performed By: #### 1 [id number] ####[facility] (DEFAULT)[address] [place] [address] 81015 U Methamp Scrn Negative [facility] Comment on above: Performed By: #### 1 [id number] ####[facility] (DEFAULT)[address] [place] [address] 22785 U Opiate Scr Negative [facility] Comment on above: Performed By: #### 1 [id number] ####[facility] (DEFAULT)[address] [place] [address] 16641 U Oxycod Scr Negative [facility] Comment on above: Performed By: #### 1 [id number] ####[facility] (DEFAULT)[address] [place] [address] 57816 U Phencyclidine Scr Negative Normal [facility] Comment on above: Performed By: #### 1 [id number] ####[facility] (DEFAULT)[address] [place] [address] 06264 U Propoxyphene Scr Negative [facility] Comment on above: Performed By: #### 1 [id number] ####[facility] (DEFAULT)[address] [place] [address] 29497 U Tricyclic Antidepress Scr Negative [facility] Comment on above: Result Comment: Resu [...] PPX Propoxyphene (Norpropoxyphene): 300 ng/mL THC Cannabinoids (67-lfg-5-carboxy- -THC): 50 ng/mL TCA Tricyclic-Antidepressants (Desipramine): 300 ng/mL Performed By: #### 1 [id number] ####[facility] (DEFAULT)[address] [place] [address] Urine Source Clean Catch [facility] Comment on above: Performed By: #### 1 [id number] ####[facility] (DEFAULT)[address] [place] [address] UA w Culture if Ind Standard on 12-21-2021 Color (U) Yellow Normal [facility] Comment on above: Performed By: #### 1 [id number], [id number] ####[facility] (DEFAULT)[address] [place] [address] Culture? Not Indicated Invalid Interpretation Code [facility] Comment on above: Result Comment: Resu lt created by rule GL_MAGR_ADD_UA_CULT1 Performed By: #### 1 [id number], [id number] ####[facility] (DEFAULT)[address] [place] [address] Glucose (U) [Mass/Vol] Negative Normal [facility] Comment on above: Performed By: #### 1 [id number], [id number] ####[facility] (DEFAULT)[address] [place] [address] 32112 Ketones Ql (U) Negative Normal [facility] Comment on above: Performed By: #### 1 [id number], [id number] ####[facility] (DEFAULT)[address] [place] [address] 84500 Micro? Not Indicated Invalid Interpretation Code [facility] Comment on above: Result Comment: Resu lt created by rule GL_MAGR_ADD_UA_MICRO Performed By: #### 1 [id number], [id number] ####[facility] (DEFAULT)[address] [place] [address] 97493 UA Bilirubin Negative Normal [facility] Comment on above: Performed By: #### 1 [id number], [id number] ####[facility] (DEFAULT)[address] [place] [address] 51710 UA Blood Negative Normal NEGATIVE [facility] Comment on above: Performed By: #### 1 [id number], [id number] ####[facility] (DEFAULT)[address] [place] [address] 15346 UA Clarity CLEAR Normal CLEAR [facility] Comment on above: Performed By: #### 1 [id number], [id number] ####[facility] (DEFAULT)[address] [place] [address] 51405 UA Leuk Est Negative Normal NEGATIVE [facility] Comment on above: Performed By: #### 1 [id number], [id number] ####[facility] (DEFAULT)[address] [place] [address] 32476 UA Nitrite Negative Normal NEGATIVE [facility] Comment on above: Performed By: #### 1 [id number], [id number] ####[facility] (DEFAULT)[address] [place] [address] 69074 UA pH 6.5 Normal 5-8 [facility] Comment on above: Performed By: #### 1 [id number], [id number] ####[facility] (DEFAULT)[address] [place] [address] 93180 UA Protein Negative Normal NEGATIVE [facility] Comment on above: Performed By: #### 1 [id number], [id number] ####[facility] (DEFAULT)[address] [place] [address] 73524 UA Spec Grav <=1.005 Normal 1.001-1.035 [facility] Comment on above: Performed By: #### 1 [id number], [id number] ####[facility] (DEFAULT)[address] [place] [address] 14003 UA Urobilinogen 0.2 mg/dL Normal 0.2-1.0 [facility] Comment on above: Performed By: #### 1 [id number], [id number] ####[facility] (DEFAULT)[address] [place] [address] 81514 Breakpoint UA Normal [facility] Comment on above: Performed By: #### 1 [id number], [id number] ####[facility] (DEFAULT)[address] [place] [address] 70048 Urine Source Clean Catch Normal [facility] Comment on above: Performed By: #### 1 [id number], [id number] ####[facility] (DEFAULT)[address] [place] [address] 35161 XR Chest 2 Viewson 2 XR Chest [...] CK [Catalytic activity/Vol] 117 U/L Normal 30-135 [facility] Comment on above: Performed By: #### T JOÃO LOCK, CMP #### [facility] [address] [place], [place] [address] Nelida Lily CK.MB [Mass/Vol] 1.16 ng/mL Normal <=2.37 [facility] Comment on above: Performed By: #### T JOÃO LOCK, CMP #### [facility] [address] [place] [address] Nelida Lily HSTROP <4.0 Normal 4.0-35.5 [facility] Comment on above: Result Comment: CUT- OFF POINTS HAVE BEEN ESTABLISHED BASED ON THE FOURTH UNIVERSAL DEFINITIONS OF MYOCARDIAL INFARCTION. THE UPPER REFERENCE LIMIT (URL) OF TROPONIN, DEFINED THE 99TH PERCENTILE OF cTnI DISTRIBUTION IN A REFERENCE POPULATION, HAS BEEN CONFIRMED THE DECISION THRESHOLD FOR VA DIAGNOSIS. Performed By: #### T JOÃO LOCK, CMP #### [facility] [address] [place] [address] Nelida Lily NGA 41.0 ng/mL Normal <=61.5 [facility] Comment on above: Performed By: #### T JOÃO LOCK, CMP #### [facility] [address] [place], [place] [address] Nelida Lily CBC AUTO DIFFon 02-23-2021 BASO # 0.1 103/ul Normal 0.0-0.1 [facility] Comment on above: Performed By: #### C BC #### [facility] [address] [place], [place] [address] Nelida Lily Basophils/100 WBC (Bld) 1.0 % Normal 0.2-2.0 [facility] Comment on above: Performed By: #### C BC #### [facility] [address] [place], [place] [address] Nelida Lily EO # 0.1 103/ul Normal 0.0-0.7 [facility] Comment on above: Performed By: #### C BC #### [facility] [address] [place], [place] [address] Nelida Lily Eosinophils/100 WBC (Bld) 2.2 % Normal 0.9-7.0 [facility] Comment on above: Performed By: #### C BC #### [facility] [address] [place] [address] Nelida Lily Erythrocyte distribution width (RBC) [Ratio] 14.2 % Normal 11.0-15.0 [facility] Comment on above: Performed By: #### C BC #### [facility] [address] [place] [address] Nelida Lily Hematocrit (Bld) [Volume fraction] 40.6 % Normal 36.0-48.0 [facility] Comment on above: Performed By: #### C BC #### [facility] [address] [place] [address] Nelida Lily Hemoglobin (Bld) [Mass/Vol] 13.3 g/dL Normal 12.0-16.0 [facility] Comment on above: Performed By: #### C BC #### [facility] [address] [place] [address] Nelida Lily IG # 0.02 10e3/ul Normal 0.00-0.03 [facility] Comment on above: Performed By: #### C BC #### [facility] [address] [place] [address] Nelida Lily IG % 0.4 % Normal 0.0-0.5 [facility] Comment on above: Performed By: #### C BC #### [facility] [address] [place] [address] Nelida Lily LYMPH # 1.7 103/ul Normal 1.2-3.8 [facility] Comment on above: Performed By: #### C BC #### [facility] [address] [place] [address] Nelida Lily Lymphocytes/100 WBC (Bld) 34.6 % Normal 20.5-60.0 [facility] Comment on above: Performed By: #### C BC #### [facility] [address] [place] [address] Nelida Lily MANUAL DIFF REQ NO Normal [facility] Comment on above: Performed By: #### C BC #### [facility] [address] [place] [address] Nelida Lily MCH (RBC) [Entitic mass] 31.5 pg Normal 26.7-34.0 [facility] Comment on above: Performed By: #### C BC #### [facility] [address] [place] [address] Nelidajose Bautista MCHC (RBC) [Mass/Vol] 32.8 g/dL Normal 29.9-35.2 [facility] Comment on above: Performed By: #### C BC #### [facility] [address] [place] [address] Nelidajose Bautista MCV (RBC) [Entitic vol] 96.2 fL Normal 81.0-99.0 [facility] Comment on above: Performed By: #### C BC #### [facility] [address] [place] [address] Nelida Kimbleen MONO # 0.4 103/ul Normal 0.3-0.8 [facility] Comment on above: Performed By: #### C BC #### [facility] [address] [place] [address] Nelida Lily Monocytes/100 WBC (Bld) 7.1 % Normal 1.7-12.0 [facility] Comment on above: Performed By: #### C BC #### [facility] [address] [place] [address] Nelidajose Kimbleen NEUT # 2.7 103/ul Normal 1.4-6.5 [facility] Comment on above: Performed By: #### C BC #### [facility] [address] [place] [address] Nelida Lily Neutrophils/100 WBC (Bld) 54.7 % Normal 43.0-75.0 [facility] Comment on above: Performed By: #### C BC #### [facility] [address] [place], [place] [address] Nelida Lily Platelet mean volume (Bld) [Entitic vol] 9.8 fL Normal 9.5-13.5 [facility] Comment on above: Performed By: #### C BC #### [facility] [address] [place], [place] [address] Nelida Lily PLT 320 103/ul Normal 150-450 [facility] Comment on above: Performed By: #### C BC #### [facility] [address] [place] [address] Nelida Bautista RBC 4.22 106/ul Normal 4.20-5.40 [facility] Comment on above: Performed By: #### C BC #### [facility] [address] [address] Nelida Kimbleen WBC 4.9 103/ul Normal 4.0-11.0 [facility] Comment on above: Performed By: #### C BC #### [facility] [id number] STROKE HEAD WOon 02-24-20 [...] JANESSA SKINNER Date: 2021-02-23 13:52 Normal [facility] ER URINE PROFILEon Bilirubin Ql (U) Negative Normal NEGATIVE [facility] Comment on above: Performed By: #### E RUR #### [facility] [address] [place] [address] Nelida Bautista Clarity (U) CLEAR Normal CLEAR [facility] Comment on above: Performed By: #### E RUR #### [facility] [address] [place], [place] [address] Nelida Lily Color (U) LT. YELLOW Normal YELLOW [facility] Comment on above: Performed By: #### E RUR #### [facility] [address] [place], [place] [id number] Nelida Lily ERUAHD A micrscopic examination will be performed if indicated. Normal [facility] Comment on above: Performed By: #### E RUR #### [facility] [address] [place] [address] Nelida Lily Glucose Ql (U) Negative Normal NEGATIVE [facility] Comment on above: Performed By: #### E RUR #### [facility] [address] [place] [address] Nelida Lily Hemoglobin Ql (U) Negative Normal NEGATIVE [facility] Comment on above: Performed By: #### E RUR #### [facility] [address] [place] [address] Nelida Lily Ketones Ql (U) Negative Normal NEGATIVE [facility] Comment on above: Performed By: #### E RUR #### [facility] [address] [place] [address] Nelida Lily LEUKOCYTES Negative Normal NEGATIVE [facility] Comment on above: Performed By: #### E RUR #### [facility] [address] [place] [address] Nelida Lily Nitrite Ql (U) Negative Normal NEGATIVE [facility] Comment on above: Performed By: #### E RUR #### [facility] [address] [place] [address] Nelida Lily pH (U) 8.0 [pH] Normal 5-9 [facility] Comment on above: Performed By: #### E RUR #### [facility] [address] [place], [place] [id number] Nelida Lily SPEC GRAVITY 1.020 Normal 1.005-<=1.025 [facility] Comment on above: Performed By: #### E RUR #### [facility] [address] [place] [address] Nelida Lily UA PROTEIN Negative Normal NEGATIVE/ TRACE [facility] Comment on above: Performed By: #### E RUR #### [facility] [address] [place], [place] [id number] Nelida Bautista UR MICRO IND NOT INDICATED Normal [facility] Comment on above: Performed By: #### E RUR #### [facility] [address] [id number] Nelidajose Bautista Urobilinogen Qn (U) 0.2 {Jose Carlos'U}/dL Normal 0.2 - 1. 0 [facility] Comment on above: Performed By: #### E RUR #### [facility] [address] [place], [place] [address] Nelida Bautista POINT OF CARE GLUCOSEon 01-27 Glucose [Mass/Vol] 95 mg/dL Normal 74-[address] [facility] Comment on above: Performed By: #### P OCGLUC #### [facility] [address] [place], [place] [address] Nelida Bautista PREG HCG QUALon 02-23-2021 , QUAL Negative Normal NEGATIVE [facility] Comment on above: Performed By: #### P REG #### [facility] [address] [place], [place] [address] Nelida Bautista PROF 14(COMP METB)on 021 Albumin [Mass/Vol] 3.6 g/dL Normal 3.5-5.0 [facility] Comment on above: Performed By: #### T HAYDE CMADM, CMP #### [facility] [address] [place], [place] [address] Nelida Bautista Albumin/Globulin [Mass ratio] 0.9 {ratio} Normal [facility] Comment on above: Performed By: #### T HAYDE CMADM, CMP #### [facility] [address] [place], [place] [address] Nelida Lily ALP [Catalytic activity/Vol] 103 U/L Normal 38-126 [facility] Comment on above: Performed By: #### T HAYDE CMADM, CMP #### [facility] [address] [place], [place] [address] Nelida Lily ALT [Catalytic activity/Vol] 35 U/L Normal 9-52 [facility] Comment on above: Performed By: #### T JOÃO LOCK, CMP #### [facility] [address] [address] Nelida Lily Anion gap [Moles/Vol] 13.3 mmol/L Normal [facility] Comment on above: Performed By: #### T JOÃO LOCK, CMP #### [facility] [address] [address] Nelida Lily AST [Catalytic activity/Vol] 28 U/L Normal 14-36 [facility] Comment on above: Performed By: #### T JOÃO LOCK, CMP #### [facility] [address] [address] Nelida Lily Bilirubin [Mass/Vol] 0.2 mg/dL Normal 0.2-1.3 [facility] Comment on above: Performed By: #### T JOÃO LOCK, CMP #### [facility] [address] [place] [address] Nelida Lily Calcium [Mass/Vol] 9.0 mg/dL Normal 8.4-10.[address] [facility] Comment on above: Performed By: #### T JOÃO LOCK, CMP #### [facility] [address] [place] [address] Nelida Lily Chloride [Moles/Vol] 108 mmol/L Critically high 98-107 [facility] Comment on above: Performed By: #### T JOÃO LOCK, CMP #### [facility] [address] [place] [address] Nelida Lily CO2 [Moles/Vol] 25.8 mmol/L Normal 22.0-30.0 [facility] Comment on above: Performed By: #### T JOÃO LOCK, CMP #### [facility] [address] [place] [address] Nelida Lily Creatinine [Mass/Vol] 1.00 mg/dL Normal 0.52-1.04 [facility] Comment on above: Performed By: #### T JOÃO LOCK, CMP #### [facility] [address] [place], [place] [address] Nelida Lily EGFR-AF TOGOLESE >60 Normal >=60 [facility] Comment on above: Performed By: #### T JOÃO LOCK, CMP #### [facility] [address] [id number] Nelida Lily EGFR-NON AF TOGOLESE >60 Normal >=60 [facility] Comment on above: Performed By: #### T JOÃO LOCK, CMP #### [facility] [address] [address] Nelida Lily Globulin (S) [Mass/Vol] 4.2 g/dL Normal [facility] Comment on above: Performed By: #### T JOÃO LOCK, CMP #### [facility] [address] [place] [address] Nelida Lily Glucose [Mass/Vol] 95 mg/dL Normal 74-[address] [facility] Comment on above: Performed By: #### T JOÃO LOCK, CMP #### [facility] [address] [place] [address] Nelida Lily Potassium [Moles/Vol] 4.1 mmol/L Normal 3.4-5.0 [facility] Comment on above: Performed By: #### T JOÃO LOCK, CMP #### [facility] [address] [place] [address] Nelida Lily Protein [Mass/Vol] 7.8 g/dL Normal 6.1-8.[address] [facility] Comment on above: Performed By: #### T JOÃO LOCK, CMP #### [facility] [address] [place] [address] Nelida Lily Sodium [Moles/Vol] 143 mmol/L Normal 137-[address] [facility] Comment on above: Performed By: #### T JOÃO LOCK, CMP #### [facility] [address] [place] [address] Nelida Lily Urea nitrogen [Mass/Vol] 10.0 mg/dL Normal 7.0-17.0 [facility] Comment on above: Performed By: #### T JOÃO LOCK, CMP #### [facility] [address] [address] Nelida Bautista Urea nitrogen/Creatinine [Mass ratio] 10.0 mg/mg Normal [facility] Comment on above: Performed By: #### T JOÃO LOCK, CMP #### [facility] [address] [id number] Nelida Bautista TSHon 02-23-2021 TSH 1.157 uIU/mL Normal 0.470-4.680 [facility] Comment on above: Performed By: #### T JOÃO LOCK, CMP #### [facility] [address] [address] Nelida Bautista TSH RANGE SEE BELOW Normal [facility] Comment on above: Result Comment: <0.3 4 UIU/ml HYPERTHYROID 0.34-5.60 UIU/ml EUTHYROID >5.60 UIU/ml HYPOTHYROID Performed By: #### T JOÃO LOCK, CMP #### [facility] [address] [id number] Nelida Bautista XR CHEST 1 Von 02-23-2021 [...] by: JANESSA SKINNER Date: 2021-02-23 13:53 Normal [facility] Encounters Encounter Date Encounter Type Care [...] Start: 12-22-2021 End: 12-22-2021 ambulatory JARVIS RODRIGUEZ [facility] Start: 02-23-2021 End: 02-23-[address] DOCTOR GOODSON Facility: Payers Date Payer Category Payer Unknown [id number] 1985 Unknown [id number] 2.16.84 [id number] 1987 Unknown [id number] 2.16.84 [id number] 1987 Unknown [id number] 2.16.84 [id number] 1987 Unknown [id number] 2.16.84 [id number] 1987 Unknown [id number] 2.16.84 [id number] 1987 Unknown [id number] 2.16.84 [id number] 1987 Unknown [id number] 2.16.84 [id number] 1987 Unknown [id number] 2.16.84 [id number] 1987 Unknown [id number] 2.16.84 [id number] 1959 Unknown [id number] Summary Purpose Family History No Family History Records FoundNo Family History Records FoundNo Family History Records FoundNo Family History Records Found Advance Directives No Advanced Directives Records FoundNo Advanced Directives Records FoundNo Advanced Directives Records FoundNo Advanced Directives Records Found Additional Source Comments INFORMATION SOURCE (unrecogn ized section and content) DATE CREATED AUTHOR 02/28/2021 [facility] [place] [facility] DATE CREATED AUTHOR AUTHOR'S ORGANIZ ATION 12/24/2021 [facility] DATE CREATED AUTHOR AUTHOR'S ORGANIZ ATION 01/01/2022 [facility] DATE CREATED AUTHOR AUTHOR'S ORGANIZ ATION 01/27/2024 [facility] FOR RECORDS PERTAINING TO PATIENTS [...] CLINICAL RECORDS. [facility] [employer] [facility]. provides no warranty or guarantee of the accuracy or completeness of information in this document.
== END 2024-02-09 21:05 | disposition home or self-care (01) ==
LOC: LAB 21:04
PROVIDERS: Visit Provider Obstetrics & Gynecology
DX: Z34.93 Encounter for supervision of normal pregnancy, unspecified, third trimester (principal)
CPT/HCPCS: 36415; 87081

== ENCOUNTER 2024-02-10 07:08 | Outpatient (OUT) | payer BC, SELFPAY ==
--- OUTSIDE RECORDS SUMMARY | 2024-02-10 07:11 | XMS_ITS | CCD ---
Author Organization [facility] Care Team Providers Care Director Of Labor And Delivery Name Role Phone NAINAC, DR OLSON Primary [...] Coding Summaryon 12-31-2021 Coding Summary HTMLBase 64 KzkuxqhfFBu2pTs+PGhl YWQ+SG4IZYAsM03nqWTt gD8YN7nGPR4IEBPDCWVK PB0KDD6teTX3YXgiW0Wl biAv FnpviPMjHC85OLn8QWA4 oTiiCUhcdJ0wvXIoR6u9 QkRqNC00fP85SFkuUTJi MjS9AkDkraixaXSh Q2qiXvBxeDBfArx+PHRh YmxlIHdpZHRoPScxMDAl BhZdsXdhKI4fKn1jFPTa LWNvbGxhcHNlOiBj k3vyAMEpMPiiPF9xoIdz B1TivBN9ASHsb9n9Eq79 dHI+KDUsNYF4fFbqJHcu d768TcEal1ukSYC2 eLRhEQvfOWS2N75hz5Z4 XYPwTSCqCLS2wZY7aB7o cTawtyhwX5GcnJDfRtG3 RZM3aRFyiC7afCnw lkdgdZ8kIie+E07MLN6V AJSFEQ1UXzi3I7RmOynj dHI+NA75UXHoHP89eMPr dSPng2sdrRe4WfKa KRWrNKA7gUezIDqhd6Lp FYWiP65laZIrd3T0TRJf rGxotUDdLoDbtIC7nZ3s TXnasatxk1trmxbp Bekdt6cqme67oI68O16x VTkhDQUrRHS6RCJfEPOn oMzzha3cuX3gXo9+IDxj g3hhs6vejPc9DiYm KJEitqYgaBleCJT7m7Wp Hw46B1AmeFaib6DqYbo1 hb77zJGtu5A2fCH4PUwv BCYtlJ9gSOrkEwI0 BGQuOpSbeF92kXOcZXud Rq7pcOctzKtrNC3fACMt vsrrLBKncJ2nUHPfrYAk eNgkNA8sIMUtqqih w267EhYeXLC0DLPcoXXt U2RhcR4fTzMbIAPwRPFn E5MokCZiUVniS689KQde CmT6XSOhwaPoL1Id FIDouKlvOwG2n2J1Vq6R r8PddmclIEG8PQtvGMI6 CeT9QzZqVxS8Q7DkNuv5 WXKfpXitZE5qN5Lm EFRootuyqlthvTO8GNNu BTIleS74gHOdJWkcAg6c h2U2m714MEVpWCCfxN77 Al0vzBwtSMQgwCDT jD8phywrz4nyvtaaEgOa VMLjJHu1PLh8JLXgzGwn KyOnTYE6FdW9DYR9kDDd fU5syHugsbntbY6v Oyc+M61rpM7dZON5ZQY8 vqvoPPQxesQpBQ21PX38 V5QzHmlbpXXvsGC+PGRp ntDvhErkMN4kXiKh i5yjw5IfWJpmS1OvPRWg AQboKee2OBIeWJB2wWG5 qI0lTIHoORvgj9F0nBW0 J4ClveMbuq6fp7cf AMKkSAnuE66tbRNmb2J8 GJWcsVM7AUEluFtgDpCu eU64Fpr+XQQqaJght4Wg Cpgre8nod7tuwXr3 IjMwJSIgdmFsaWduPSJ0 j4WwNr73H25lSHpaTDRv TZSwUVXbWOCaiUdabd4a gF2uKq0+PGNvbCB3 nAI7qN5uWPGlEwE6SKkv E905BoVxaZSjFptru2fs a5dciGp5EyDrADOhizPe iIljFOE5u5LfRp33 Z15bUGeqWNApQRPtDCSr UMXlvEicxc8eeD6wJr2+ CX0pd9rzmg70pN98eWK+ NNKeONC0oVkaOGup VKFwlG7eOIzgKfD1FMKt EzKvyG53xQQeDFyrGq6a wTqpeQgkCY0cPZXjrzdc b321HbGmr7heALFj oSOxYNwnTQZ0W19tx9K8 FCBpNLWzWQY3aOY1mR1x bGlnbjogbGVmdDsgdmVy cZakKRgmBSmiY952 IHRvcDsnPlBhdGllbnQg AdKoMJh3C7SpUue8HZCc lUndBU7uyKQmJOjzRu8u sHsybLarDK3oCCXt jvcjw136KxBbp7mqGXDg oGBbZIqtTXY3P45cf1H8 SCRbYJAfJGB0mZN3zX1u bGlnbjogbGVmdDsg jvJvtNpuETkwLVylO382 IHRvcDsnPkJpcnRoIERh yOG2YC23DI42lPFfb6K1 lYF5P9BhPMXzlxnu xjzrcUP2IDSpGMOvoH92 Hm5deHsmDo9jNOEyXAR8 XNRzbTWcT7GvlU8tEwGq ITQcXXYeT1OjpEZt ZAseA065HIhcCcK6RBQj onVgJ9DyRXGlkLdvUdT9 x8L5Vx9XM8P7UE41OL00 vXLgw8E0wDO2N9Zb JLStnpywykmbmFD4XNEs UOZurM50Wu7uqDhyJt7r CRJsRSF8XLXymMDtB9Hz tG7wAeZbHSCkZLSi H4RitJFgKVriC875HGmh NhX7NGDxchEhQ1JyDVVa tRynYmG4d4W9Ec9JFVt8 JD85AF53dWUro5Y9 qPS0A8QgCHVbgyprxujp zET5MCQoZGJvqO58Bm3g aWngRy4rMQSfPZK3NXXh hRRjV6BehT1mEeNr MBPgUPYwJ0ExdOViJLnu I180VBpwFmQ4YMQztzOh O7JdTTXckAjaYqI9k3O3 Rr9YQPYqIR97XLO2 gDD8JM80QJ12U5HqKvwt dGFibGU+PHRhYmxlIHdp ZHRoPScxMDAlJyBzdHls EG5xHm6cTEEuAZUg cSucfTIzQyTxz2jyFPEy RUwaPM1mjZsyU3SfgQV4 ADTmq6k1Ho01F08mX7Kp dXA+UKMdeID0gTU1 lA2wIvCaVbT9QEkhN123 BbEqxGTrSmavm1zkm8gh pHe5JoL8HYWpikBvgWyr EJF4o7UqXn09J97z IHdpZHRoPSIxNSUiIHZh dLpvdi4pbC3kFs4+PGNv gCP4dBI5zE3fQsHkUmG4 QJhnM919SnBwfPYz Rhuiv5zpb8axzXw8QbUj FBNuemYfcXhcCZS0u7Lu Zv02T7LnlIcwb3PpWmw9 td30pWVso9T5mCZ5 N5LmMCFmxjvcyGDswSfj IG2cBUSphpwnWXDzeJ9k BKFqP0q0SeJlWlC2MGoz P8XaxuV3CZWrcUVf VUtsNLN3H73iz6S3FNDx NHNmLRN5nBM3nJ3ngCqx bjogbGVmdDsgdmVydGlj CVfbGQbxF816LYPd uSqbWHEtuM7dWNRmdWDy jWhxOB9rVFNionolStcI UTXNYHICFHTQTsMIBJ68 VC65xVLfr9C6fLI3 X4GqLBSqgsmwlyhneQF1 ZITaILBdmQ06pTJfZMhg Id2xt5Z5m342OIAnNEXe kL39Yy8fkDjiGPIf yGZKyC6kwdxnk6amxmha LcCdHHFuUVo3LGx2HQSr rUvyYpUhXBB0UjZ4VHP5 lRIlvQ8uuSbyoump vA6mRdn+MDEvMDgvMTk4 ODwvdGQ+CAHbQVF9uPrs NWqpKMMzfI2sKAWnZ4a8 MfZnEeA9ITgkH1Ek TELxkyztKr94eN9lRwKi TbW7EIkcE2QfucX4LWBj vUPiAXjqAXM0C84af8U8 AFWrMCYcCAI9mYI3 bO9raCkigzylsMOszWjq rcQaaKdtMFypMFonY252 YPDqhWmxPlC2FZeeAQMw AR51YW59cZFra5O9 oND9N4PwIFQgmpcouqum iDG2CZXjCWVgoF71bUMa QUbfOn6eh1U7m778FZUo TULyiG91Gy3fvRgo FWJeyHSBtD5mklnca8cf zpdxHuAtEFYjWOz8JXy2 KEBqcTdzTwVoVVC0AgP5 FGC5dUJynB2ttOmx ieantK9uMly+RkVNQUxF YD34GN96kPOno5K3zRW1 P0RqRADqzybftdbspMW0 IHShLJGykC92oYVc PCvoCb1ic0X4s252SITq CREgnU55Qu8vkZkvECCj wJHZeU2plbbho4tcznhh GeWiTUBeFHz9GCf1 ARDqlKhzNdTsRPT8ZjZ2 HTZ6oAXtuX8acGdkfdkw gM0bYis+J8R1S6JaQnfq dHI+DR49BQIaXS69 nCQpfXEwz5chpRx9EqVv LSFsVZD6qMspKAldh6Ta PIHuF80moMQwf7F2MPGm bGxhcHNlOyBlbXB0 qV6yCJkhyfxrp7unopyc Btebj2tvjh65qK37E05x IHdpZHRoPSIzMCUiIHZh pYoxao0jhV4pRd9+ PHRbeLO3dZG2jR2dNzUf CkN4WSdzK467XyXfjOGj Vahqx6lbc9klfXx8AaEi JSIgdmFsaWduPSJ0 d9RjEk01T13pEJouUOEo XKEdEFLnKNDffGefgn9o sC4zBl9+WO4fl8acaw05 gJ41xAL+PHRkIHN0 jWvvIOqhRXDprV1aTBbr HuY1RUSkAcYmnK34rPFu BXhjHv2uxWzcjEeaNN2y NNNwdffyb612SdPt z8ytFNDdkTPfURvhPIT6 X24ft2Q4WMXoHXOxXHB2 zRL4dE2bnMixzkgasJTm dDsgdmVydGljYWwt OMznD212PZGdiNukPmNe uLYmY5ejxfRHBP0xEzhb dGQ+INWfIPN5cHhoCEty YRSxbN0rUHPbH2f3 EwLdVhS9KWujY2BxdmR9 KWQzgOZdOZSgqPPEeW8u ncutv7fjwqjcXiKqLGBr VDy6EAs4FFLxaCem XfKkZPW6AsQ8MSG0mAMe qN0yuZvdoiuuxY2kPih+ RklOOjwvdGQ+PHRkIHN0 tFmsOLujZCJinQ8h VWQbY6l7RwPpXbR3DEie B6DelyM8NBJyqBPnDVLk dDJNzT7slhtoh4epmotp MdJoDAOdXFu0FUd2 NSTfpBxdIaGzERS7TaR8 UCQ9yHYnmJ4azNbxqmou kV0eTof+TVJOOjwvdGQ+ ATAdKAM2nFirSWzb JEQvhZ1ySOTpW4l7QzWm XkF3GWipQ7UyxkS9VRAj xBPkPSQqbEBLnX3ykfhk b3iwjartDiMtRZSf XLo0UHa9ZLVmvCnuSoMl BVZ1QiH3JAE8qRSbcF2p rGecmrpdhL7qUku+UGF5 TSW5PU43DT39G0We PjwvdGFibGU+PHRhYmxl IHdpZHRoPScxMDAlJyBz jGfsQF8wZa4eBONpYOZi aCjweTPpCoHxr5pb YXB (more content not included)... [facility] Coding Summary HTMLBase 64 OxdkcsypCBf4gGu+PGhl YWQ+CE4LZJZpD66nkNXl xD2NF2tXJF4WGAMIJICE HB3PFN1jqGG2FKmoA2Ua biAv MzosfSTeBL41ZAs5RFR0 lUfxJGckiB2dbSRoC9d6 UcNhOQ50uK25ABilYUXx ZyQ0YnCocmwflUTl K1wrIqEuiYRlFmr+PHRh YmxlIHdpZHRoPScxMDAl LuKwrUblOK7sMi8iKKEy LWNvbGxhcHNlOiBj j7pvQPSgICooMG8yhTxi B7VtjKI5XCTqp3l7Uk85 dHI+PPUnGPK6eIjeREih g794PlAdy3ziDOI9 gRHbAZibSGI5Y03yv7G9 GVWzLMRsHON6zBE7rZ2r dIduqybiX0StxVLcAoO6 MXK4rKIocA5qsQgj lyymnY0uChq+K74RAA5D OYYJON8WMnw7J1FiMpld dHI+CC10PQNpCP79bRBv bKYol5btkMx1OlNn WQXyIYF4yNneFZpfa7Ot GIBrM78yhFHwq6W8DMSk oMbivOKwNoUbbZA6qL5c TXlipuiqn7etsgjh Sevot6eamf12sU68V66f PQtsNLSeVVS5RHKrGMOu eGqhlz0llU8gJn4+IDxj d1brw8zxaPd5UrAc QRUjjrPvtSsvCFJ9n9Qh Am22P7OzrNkqc6XlCkn5 mh05jJPyd5K2dIZ5QThb XTJoaG8qTXczBrW2 TCSgHfQeyW14fWTxBWvp Sh3wfDyeyZncTQ5xGTAp oubiCQVtuX2vEPQriAZc tRoxCC5cSBXkhpny i104ZcOqXZC4EDZagNTv R8RstX8gZkVoVWEmWONf N1IrmRZpNTyoL163HEbb VcK7VEIfyrAaE1Wy PXHafJuuNaR3v8Y0Ox5W j7HhxxirLYZ2DWbtRKH9 QbZ5SaStEeO1P4HkNhp6 LNCfuRlpOH5cX7Gl GRNxfatfibgyqDA3JQEe KYUuxU19tUStPZdbId4l m0K0y574BHJsDFGxaJ41 Sn4vxBopVOQzmRZZ lR1gxihzu4psstkqVfRi WICcBOv6NIl4FVEojRhb GnGwEQU5OaF1WDK1qEOh cD2ysSjknsshfC6z Oyc+U41dhX2gGOP6GEB5 ohmjERTsfwCpND54ZM49 L2UvQmypcQCahFW+PGRp nyAgoIuyJT4uJrHm q6wgy2PcIUnuY8TuAQMs IYbbWbv8GUEmHZV3kCY9 pE0wVMWiQIhoo3Q2fQZ5 O4SygyVvpy6kl5zv IPDeLNvfN84gpJUfw2V6 WMYakBR7XGHeuVpnHjIs tZ95Sll+VSBvnKsbu0Cp Oudwx3bng8ugdWf7 IjMwJSIgdmFsaWduPSJ0 j3CeAk20Q21hKBtwYSFw NGHjFJJkVCWbrZhgyc6y oP3aJx6+PGNvbCB3 xXO3fK2rFZKaLuK6FPkb O370CdSzuYMwUuolp5gw q6psePy8GbYeAHUzkuKu aZsiUCK7r9WhWj74 S94mTGxfBKHqMLIoYXLy NZPynEwxwk1boM8vGu1+ AR3cl9lpmo97uZ62zJD+ CWWjMCH3sNazSJcu AKDmiG1iLFgkOcB3IJKa RaFrjP62cDQdPUblXh4f rBlyjUinKQ5oVULxajhp i041UfXxf9rlSINw gNGbYEjhGXC5A75he2C6 ADSpXYRuIJR5eLT2eE1p bGlnbjogbGVmdDsgdmVy lZzeXQhzSPocF227 IHRvcDsnPlBhdGllbnQg LrAaNNg4K0QfXsa1SDVn pWnySD1npZMbGSqeUg2b eBwqqTsgQW7wPRGv lwlxs448NdGqi1eqDBSw zOPwHLkuUFF5Q35fs4L8 FGAiDTOoOAU9eKV0hH8e bGlnbjogbGVmdDsg frTmwDebWCfzMRdwL797 IHRvcDsnPkJpcnRoIERh wFX9VM39BX97fFCrr4M2 bQQ2P6PmROPlvize hdcoiUA1HWMcFCYevE39 Oz6cyRncIr4rZXLfMNH8 TERhaWElC0PobK6aGlFz FILfNRZhV5DhyYGf BAmyH538WUjgUbA2SHHv usVcW8AhHKMfkLpsOjV0 e1I3Ze8YG1L4DL84PN64 oWBlg4N2uZG5O1Zu KREivwaqylzpwXF9ZQOw LXVgfP71Az3stCpnHn3x YZNqTFD8STToyNJjE0Fx sI0rLpTvLGKoCOZr P1YkaODuQWiyV357ASed LkV9NBWlzfFwI7NeBFTf lLupQaY7y7D4Hu8GGTp2 QI23OE66bCWsp4S2 pZB2X3UfHRQfjnfxphmj gJJ5TTVtAVHhlH74Zr5e xFweAa4uVARjEZF2MXCw pDUpD7NklN3sXbXl TNMzUIYhU1WdaWIsBClc P933FEinBuE0VFVbsvGo M6EmLDJwiUuwYjU2d5O5 Rl7ONAYnEU50ASM5 yRV6PV59ZZ11H6KtYazw dGFibGU+PHRhYmxlIHdp ZHRoPScxMDAlJyBzdHls CW5hAv3vRUMhWOKz iBwmxZTfUlPdr8ecURJb MNsgBQ1xmLtpM9EwhJF6 MMHsq1z7Gy36J64qY2Hj dXA+KTTfnLO8nQJ4 zV8rRpAkHmR3CIeyN298 XdMwcYSwXhkqs7rpv9ha gKe4BqS6CPPtzhVjiPek VIS9i1LaYt11U39h IHdpZHRoPSIxNSUiIHZh dNijnf8cwP5dUo3+PGNv kGD9xTG3tY7eFuPkTnH1 LRzkU760RvXqiTJw Mpxbf5uji0zskMy1IgHs TEOrolWwpAufKXH4w4Ey Ip83M2KqmXjse6EyJpj1 xw55zWLfm9P7uAG7 P7DgHBOwwwficUKznAes DZ6nNEAnlkriAFFxgE4g SDGsT0f8GnVjZxQ9VLkf B0KjrhJ9LEQleWLk UJqtKRF9J87mf2S0KEKv HZFjUTA0gUN4nR0orFof bjogbGVmdDsgdmVydGlj WTezFMwbN736VXHh sPymQVTceS6mTXWtnENh zYmcUN1pOXVefsltQocO WGFQGHLRTVBEQeJMYE52 RG11pRLij9I9fQN9 K8DaGFPqbqafshnboOD7 IPFyJHEywK85mRIoMItg Mn1go1M2a326ZYAlYNDx gA91Lp3tqKhoBHFp jCMEhR0xbcplg0xgrrrj DmLaJHLyJMg5MLf0KCOt bBpyLkLbWMS2EnP8RIS1 iUNelX1bkGccdehm fX4fBax+MDEvMDgvMTk4 ODwvdGQ+WTNgGQV2vBoh YKbmCPWqnV0gJXMsW6e9 CtKtIfK8DLthV2Sq SWWejoeeYl21vO2fLsZo EsV8NWdxX4BxxeY7AQZn dZUqZCukCFR1R62ce9Q1 BYHzQMKcCKT5xAT8 gJ2juTysgvlmtTIpjUjb dyHhzKqfDHyyQCwnR543 HUHgmFdzJxE4THfkSKVu YK75SY37nDUuz4W1 kIZ2B2LbXAUhskxunbgt yYD1TUKaISHucJ34bAXb SHjfBl6pb5X6u871GTGs JAZriH25Lu7jgUqb FFUwrOOHzJ9kczqsu5ws rwctZrRsMOEoXLt3OWk1 VAZqsRfkKaSrKGC0HkB2 IIH8nBBecC7kaOjd eubftX9oNbr+RkVNQUxF MY36KA63hIRjr5U6dCS1 J2NcHRXvaxvmwfanvMZ5 VZAdSFVizT80jDWf PQfpLh9uw6B7w803MQGo EGAleU59Ua3ydLmbUPUg jMNRjS7srpmqo5tlcixm EgEqGCLaXHo8IXd2 QASrbYcgMaQqQJT0EbR8 QGG4zUEjtQ3hxKdqksay eX9tRqf+DL9keibbqaD4 MS51BB57I1JaMmad dGFibGU+PHRhYmxlIHdp ZHRoPScxMDAlJyBzdHls EL0fIm8yLWVeVODglUka eWGrHgXsm7pxKMLu DDmsNB5xiJgcP3CtlEV6 RVOhf1z0Dy32H41nS5Mm dXA+QQDupTC0uIV6bC7v FqCqGmY8CZvrJ345 RdLtbFTxBtwbk3xlq1kr aRy8YyQgLIRtkjPjoKjq PBB8t3UjQt41F64hHMwv ZHRoPSIyMCUiIHZh pYjojl9gyF7iSj8+PGNv wSM3jJH2uT3nJjJsSrP6 XZizQ938EjYfdYAxWobr W18dI4FdqOL+PHRy Pep9KTCcgAdiFM2ubWCq WCybTf8tJCD1TaNaGwFm HUzuW2RqEMUmeoaespdn mYT3DPFyAQNyxO89 Xf0pySnyNl0iLWFxHTJ8 WQXrsKQsA6NkrF1qRpCv KDOvZIEvX8KyuONrXTiw M645AFdiYzO0DINx lnOlS4VmKFHzcHifNxK5 u6I4Vi9OpWavbGDmZW1j RaSoCNt0Q7NzUtk2JQPa rVvrSX3abCPdPBll Ml3hyFhoiJkkWS1yRQFy cixag008XcOzl0ruAPJx wAUzPRltUHD9U19vs0A5 YHYePJXcERL0nDT8 tJ4rxZdebzwkgNLgyPwg vsFvuMhfXLynQYihX304 JEPeoVeyIjVRAyo9Y6Ad Hvl1IQVuxWluPV3n fGZpSWqrZi8olYdoqVxh JJ6wOKJqinkir088ZuMj q7nwDIVcoAQgNFlfPTJ2 G04fu9Y7NHGrKYFu KZI1eKI5jZ7toPolpwmf bGVmdDsgdmVydGljYWwt ODxqS711SWZrjKikEx7W Gvi1B1XgYmi9YPEo aSkbCZ3pqOKcTHhoZt0m uXffsNclCV2bXHTzaebg f866IwNys6hbXXDdvQMx ABbkQEV0V68tu7V1 QQBpZQUgJXZ4pAI8uT7l bGlnbjogbGVmdDsgdmVy oWwnLYxxPVydH319SSYk cDsnPlBheWVyOjwv dGQ+KQ02zi00M5IrEguq Egc7SCOxLPW3yOK2gW5i HEYrLQlzx3L8gAJ5B7Ug jdAomx9sk0psTKUc ZTo (more content not included)... [facility] Ambulance Noteon 12-26-2021 Ambulance Note [id number] [id number] [facility] ED Clinical Summaryon 2021 ED Clinical Summary [facility] - Emergency Department [address] [place], [place] [id number] ED Clinical Summary PERSON INFORMATION Name: LOCO HICKS Age: 36 Years Sex: FEMALE : 1985 MRN: Acct#: Visit Reason: Dizziness; FACIAL NUMBNESS, DIZZINESS Arrival: 12/21/2021 18:23:41 Discharge: 12/22/2021 00:02:00 LOS: 000 05:39 Check In: 12/21/2021 18:23:41 Checkout:12/22/2021 00:02:00 Address: [address] [place] [id number] PCP: Provider, None PROVIDER INFORMATION Provider Role Assigned Unassigned Alvin Bryan ED Provider 12/21/2021 18:26:52 12/21/2021 18:30:20 Sanjuana Ramirez MAT REPAIRER Nurse 12/21/2021 18:29:17 12/21/2021 23:14:12 MARIAJOSE EDEN ED PA 12/21/2021 18:30:25 Kerline Cartagena MAT REPAIRER Nurse 12/21/2021 21:46:32 Kerline Merrill RN ED [...] - pharynx pink and moist. NECK: -Supple ([id number]-cqqbv): non-tender. CARD: -Rate and rhythm: Regular -Edema: No -Calf pain: No RESP: -Respiratory effort and chest excursion with respirations: Normal -Breath sounds equal bilaterally: Clear -Wheezes: No -Rales: No BACK: -Signs of pain with movement: No ABD: -Distended: No (more content not included)... Normal [facility] ED Patient Education Noteon 12-22-2021 ED Patient Education Note Education Materials [facility] ED Patient Summaryon 022 ED Patient Summary [facility] - Emergency Department [address] [place] [id number] PATIENT DISCHARGE INSTRUCTIONS Patient Information Name: LOCO HICKS Age: 36 Years Date of : 1985 Reason For Visit: Dizziness; FACIAL NUMBNESS, DIZZINESS Arrival Time: 12/21/2021 18:23:41 Primary Care Physician: Provider, None Attending Physician: Alvin Bryan Comment: Visit Diagnosis: Diagnoses This Visit Dizziness ([id number]) Paresthesias (R20.2) Visual disturbance (H53.9) Prescription Information: If you have been given a prescription for narcotics, seek immediate medical attention if you have any difficulty breathing or any sudden status changes such as confusion and sleepiness. If you or anyone you know is experiencing suicidal thoughts, mental health, alcohol and/or drug addiction problems; contact the [facility] 17/02 Crisis Hotline -Text 3JDVG to [phone]. If you received any narcotics, sedation, or [...] and treatment you received today in the [facility] Emergency Department were for an urgent problem and are not intended as complete care. It is important for you to follow up with a doctor, nurse practitioner, or physician?s programs assistant for ongoing care. If your symptoms [...] so we can reach you if necessary. [facility] Emergency Department has provided you with a complete list of medications post discharge. Please inform your audio visual aide/provider of your visit and for further [...] for Disease Control and Prevention March 2014 [facility] MRI BRAIN W WO CONTRASTon [...] Ean Cedillo MD 12/22/21 Final result Normal [facility] MRI CERVICAL SPINE W WO CONT [place] [...] Ean Cedillo MD 12/22/21 Final result Normal [facility] [id number] 12-22-2021 SARS-CoV-2 (COVID-19) RNA SHELBI+probe Ql (Unsp spec) Not detected Normal NOTDET [facility] Comment on above: Result Comment: Rapid NAAT: [...] management decisions. Fact sheet for Healthcare Providers: https://www.fda.gov/media/559958/download Fact sheet for Patients: https://www.fda.gov/media/521196/download Methodology: Isothermal Nucleic Acid Amplification Performed By: #### C OVRB #### [place] [address] Inside Outside Sales Representative: Campbell Simmons MD SARS-CoV-2 (COVID-19) PCRon 12-22-2021 Employed in healthcare? No Invalid Interpretation Code [facility] Comment on above: Performed By: #### 6 [id number] ####[facility] (DEFAULT)[address] [place] [address] Group care resident? No Invalid Interpretation Code [facility] Comment on above: Performed By: #### 6 [id number] ####[facility] (DEFAULT)[address] [place] [address] In ICU? No Invalid Interpretation Code [facility] Comment on above: Performed By: #### 6 [id number] ####[facility] (DEFAULT)[address] [place] [address] status? Not Invalid Interpretation Code [facility] Comment on above: Performed By: #### 6 [id number] ####[facility] (DEFAULT)[address] [place] [address] SARS-CoV-2 (COVID-19) RNA SHELIB+probe Ql (Unsp spec) Not detected Normal Not Detected [facility] Comment on above: Result Comment: Perf ormed by PCR methodology. Performed By: #### 6 [id number] ####[facility] (DEFAULT)[address] [place] [address] SARS-CoV-2 (COVID-19) RNA SHELBI+probe Ql (Unsp spec) No Invalid Interpretation Code [facility] Comment on above: Performed By: #### 6 [id number] ####[facility] (DEFAULT)[address] [place] [address] Symptomatic as defined by CDC? No Invalid Interpretation Code [facility] Comment on above: Performed By: #### 6 [id number] ####[facility] (DEFAULT)[address] [place] [address] Transfer Noteon 12-22-2021 Transfer Note medication list sent with patient, Complete ED chart sent with patient. CD and med list sent w. patient to Hospital [Electronically Signed on: 12/22/2021 00:05 EDT] Nadya Garcia [Verified on: 12/22/2021 00:05 EDT] Nadya Garcia [facility] Transfer Note [id number] #1.00OTGTIFF [facility] Transfer Note [id number] #1.00OTGTIFF [facility] Transfer Note transport called, [facility] called for transport to [facility]. Willie stated will call when back in area from [facility] Trip. [Electronically Signed on: 12/21/2021 22:14 EDT] Nadya Garcia [Verified on: 12/21/2021 22:14 EDT] Nadya Garcia [facility] .Auto Diff 1on 12-21-2021 Auto Wilkes % 7 % Normal 12 [facility] Comment on above: Performed By: #### 7 985645, [id number], 0417558, 39482128, 2841297, 6662090, 7623731609, 8490138, [id number] ####[facility] (DEFAULT)[address] [place] [address] Baso Abs# 0.0 x10 Normal 0.0-0.2 [facility] Comment on above: Performed By: #### 7 043867, [id number], 5257487, 59307415, 5425778, 6623023, 6141410466, 0888005, [id number] ####[facility] (DEFAULT)[address] [place] [address] Basophils/100 WBC (Bld) 0.4 % Normal 0.2-2.0 [facility] Comment on above: Performed By: #### 7 154074, [id number], 0070561, 62074453, 6132674, 0525891, 6673554874, 1970619, 2165892203 ####[facility] (DEFAULT)[address] [place] [address] Eos Abs# 0.1 x10 Normal 0.0-0.4 [facility] Comment on above: Performed By: #### 7 850700, 3948745327, 7932505, 62797499, 3908875, 4992156, 1262757713, 7138062, 6333972747 ####[facility] (DEFAULT)[address] [place] [address] 67283 Eosinophils/100 WBC (Bld) 0.7 % Low 0.9-4.0 [facility] Comment on above: Performed By: #### 7 001959, 9103565296, 8821332, 26077991, 9451861, 5321347, 9222920158, 5235032, 7340875702 ####[facility] (DEFAULT)[address] [place] [address] 39513 Lymph Abs# 3.2 x10 High 1.3-2.9 [facility] Comment on above: Performed By: #### 7 590314, 6659855133, 1762893, 44849453, 7878611, 7485875, 5854438015, 3777431, 3405816533 ####[facility] (DEFAULT)[address] [place] [address] 48205 Lymphocytes/100 WBC (Bld) 40 % Normal 14-48 [facility] Comment on above: Performed By: #### 7 916166, 2764991863, 7303789, 21918945, 9658587, 0057938, 7902326059, 5928713, 8938864601 ####[facility] (DEFAULT)[address] [place] [address] 65537 Wilkes Abs# 0.6 x10 Normal 0.0-0.8 [facility] Comment on above: Performed By: #### 7 975033, 3478356148, 4248749, 69522380, 8932799, 9634413, 9542199849, 4402269, 8883592677 ####[facility] (DEFAULT)[address] [place] [address] 42165 Neut Abs# 4.3 x10 Normal 1.5-9.2 [facility] Comment on above: Performed By: #### 7 176958, 1817498403, 7054847, 16619293, 7719422, 8920612, 9349822790, 9567286, 8716450944 ####[facility] (DEFAULT)[address] [place] [address] 96475 Neutrophils/100 WBC (Bld) 53 % Normal 44-88 [facility] Comment on above: Performed By: #### 7 442064, 3890907657, 0548621, 31206282, 8515274, 8773173, 9372303079, 9112909, 3391428665 ####[facility] (DEFAULT)[address] [place] [address] 37768 CBC w/ Auto Diffon 2 Erythrocyte distribution width (RBC) [Ratio] 14.3 % Normal 11.5-15.0 [facility] Comment on above: Performed By: #### 7 724042, 0809385940, 6173063, 82065353, 6234211, 7154272, 4563384693, 8297921, 6816254293 ####[facility] (DEFAULT)[address] [place] [address] 15830 Hematocrit (Bld) [Volume fraction] 42.3 % High 33.7-40.4 [facility] Comment on above: Performed By: #### 7 420857, 2751201661, 7776942, 29342623, 8418659, 0000633, 5797126397, 8135279, 9848973173 ####[facility] (DEFAULT)[address] [place] [address] 31566 Hemoglobin (Bld) [Mass/Vol] 13.7 g/dL Normal 11.3-15.9 [facility] Comment on above: Performed By: #### 7 160867, 5459463375, 2763648, 27639524, 9171071, 3252949, 3545936282, 9321423, 5172377582 ####[facility] (DEFAULT)[address] [place] [address] 43108 Instr WBC 8.2 x10 Invalid Interpretation Code [facility] Comment on above: Performed By: #### 7 791040, 4986687246, 2462294, 09565380, 4159425, 9207758, 3389448057, 1455118, 7506666844 ####[facility] (DEFAULT)[address] [place] [address] 28453 Man Diff? Auto Normal [facility] Comment on above: Performed By: #### 7 532014, 0518293898, 9478459, 30905005, 6233026, 3236151, 3850346334, 1563042, 7203100503 ####[facility] (DEFAULT)[address] [place] [address] 27151 MCH (RBC) [Entitic mass] 31 pg Normal 24-34 [facility] Comment on above: Performed By: #### 7 162024, 0461008118, 3820902, 44233253, 5298275, 9073898, 5593684672, 0675587, 3394995750 ####[facility] (DEFAULT)[address] [place] [address] 61075 MCHC (RBC) [Mass/Vol] 32 g/dL Normal 26-37 [facility] Comment on above: Performed By: #### 7 762784, 2801826473, 5906138, 59607939, 5715350, 1319443, 4458478045, 4426714, 6343168594 ####[facility] (DEFAULT)[address] [place] [address] 15313 MCV (RBC) [Entitic vol] 96 fL Normal 81-100 [facility] Comment on above: Performed By: #### 7 691115, 8727102745, 7510345, 18982818, 6283551, 1246065, 4069198398, 9835136, 2854228295 ####[facility] (DEFAULT)[address] [place] [address] 55244 Platelet 363 x10 Normal 138-427 [facility] Comment on above: Performed By: #### 7 676424, 7587168545, 0241854, 60558047, 6941171, 8790981, 1661930413, 0779094, 2013819503 ####[facility] (DEFAULT)[address] [place] [address] 94070 Platelet mean volume (Bld) [Entitic vol] 10.2 fL Normal 6.3-10.2 [facility] Comment on above: Performed By: #### 7 868903, 1355158984, 4298858, 21797316, 7100769, 8725715, 9605236545, 7992019, 1251263292 ####[facility] (DEFAULT)[address] [place] [address] 13874 RBC 4.42 x10 Normal 3.70-5.30 [facility] Comment on above: Performed By: #### 7 391914, 8633203906, 1651813, 20270802, 8849927, 2915952, 0498814905, 9951533, 9679859966 ####[facility] (DEFAULT)[address] [place] [address] 62690 WBC 8.2 x10 Normal 3.5-10.5 [facility] Comment on above: Performed By: #### 7 624889, 3227962791, 7965460, 82713714, 3003714, 7494328, 1748355812, 3287664, 7630115744 ####[facility] (DEFAULT)[address] [place] [address] [facility] Standardon 12-21-2021 eGFR Non AA 57 mL/min/1.73m2 Invalid Interpretation Code [facility] Comment on above: Performed By: #### 7 179462, 0760502524, 0239477, 76635258, 2285757, 0840815, 8603601197, 8762087, 9908911446 ####[facility] (DEFAULT)[address] [place] [address] 83785 eGFR AA >60 Invalid Interpretation Code [facility] Comment on above: Result Comment: [employer] nathalia Kidney disease could be indicated at eGFRs of less than 60 ml/min/1.73m2. Kidney Failure is indicated at less than 15 ml/min/1.73m2 Performed By: #### 7 326463, 4111750735, 3137022, 60177072, 3268913, 3174700, 2498868813, 8091410, 3075419040 ####[facility] (DEFAULT)[address] [place] [address] 91123 Albumin [Mass/Vol] 4.7 g/dL Normal 3.5-5.0 [facility] Comment on above: Performed By: #### 7 561967, 1360482508, 7906493, 19368246, 7808327, 0940425, 7671306764, 4322053, [id number] ####[facility] (DEFAULT)[address] [place] [address] 37701 Albumin/Globulin [Mass ratio] 1.1 {ratio} Low 1.4-2.6 [facility] Comment on above: Performed By: #### 7 621328, [id number], 5727606, 66263481, 4278033, 6123869, 4899411494, 2856370, 9641844674 ####[facility] (DEFAULT)[address] [place] [address] 69594 Alk Phos 99 IU/L High 32-91 [facility] Comment on above: Performed By: #### 7 756678, [id number], 5963837, 77883521, 3662437, 2884346, 0242188262, 7220515, 8440457524 ####[facility] (DEFAULT)[address] [place] [address] 92754 ALT [Catalytic activity/Vol] 32.0 U/L Normal 14.0-54.0 [facility] Comment on above: Performed By: #### 7 386771, [id number], 2908382, 21836067, 6852156, 6417054, 7835192497, 1580980, 7179243669 ####[facility] (DEFAULT)[address] [place] [address] 77924 Anion gap [Moles/Vol] 23.0 mmol/L High 5.0-19.0 [facility] Comment on above: Performed By: #### 7 765321, 1076534385, 3696772, 53772738, 6182284, 5022361, 7159487577, 6332219, 2902108150 ####[facility] (DEFAULT)[address] [place] [address] 12555 AST [Catalytic activity/Vol] 41 U/L Normal 15-41 [facility] Comment on above: Performed By: #### 7 936279, 1637701617, 2046647, 61189105, 7518103, 8691798, 7405927774, 7206087, 2280701444 ####[facility] (DEFAULT)[address] [place] [address] 05762 Bili Total 0.4 mg/dL Normal 0.3-1.2 [facility] Comment on above: Performed By: #### 7 671030, 4699612762, 0355281, 42622215, 2353176, 8031859, 8625900366, 1814342, 3089186141 ####[facility] (DEFAULT)[address] [place] [address] 09813 Calcium [Mass/Vol] 10.2 mg/dL Normal 8.9-10.3 [facility] Comment on above: Performed By: #### 7 806849, 3677695876, 4698085, 39755596, 2907356, 9102429, 8767620503, 9850304, 7220737517 ####[facility] (DEFAULT)[address] [place] [address] 60973 Chloride [Moles/Vol] 96 mmol/L Low 101-111 [facility] Comment on above: Performed By: #### 7 151764, 5221978460, 0823878, 85893498, 7796911, 4014763, 5885565022, 9581889, 9905838164 ####[facility] (DEFAULT)[address] [place] [address] 12884 CO2 [Moles/Vol] 24 mmol/L Normal 21-32 [facility] Comment on above: Performed By: #### 7 864993, 0457157509, 8500592, 48287457, 8536038, 6976844, 6891335007, 3048027, 6413036434 ####[facility] (DEFAULT)[address] [place] [address] 54380 Creatinine [Mass/Vol] 1.10 mg/dL Normal 0.60-1.30 [facility] Comment on above: Performed By: #### 7 680980, 8557704972, 7154257, 00147269, 1895723, 6379693, 4907088195, 3642286, 0796698891 ####[facility] (DEFAULT)[address] [place] [address] 43932 Globulin (S) [Mass/Vol] 4.2 g/dL Normal 1.5-4.3 [facility] Comment on above: Performed By: #### 7 522916, 2890171521, 9258816, 44712453, 3139304, 4365334, 2865219616, 6321509, 8813562139 ####[facility] (DEFAULT)[address] [place] [address] 16411 Glucose [Mass/Vol] 97.0 mg/dL Normal 74.0-118.0 [facility] Comment on above: Performed By: #### 7 477774, 6229655870, 5861545, 22459351, 6055235, 1611433, 3241113513, 0964772, 6331323359 ####[facility] (DEFAULT)[address] [place] [address] 84009 Osmolality 278 mOsm/L Invalid Interpretation Code [facility] Comment on above: Performed By: #### 7 597476, 1172164658, 6108875, 00135022, 6136767, 2902390, 0448729461, 6353954, 3613850389 ####[facility] (DEFAULT)[address] [place] [address] 39535 Potassium [Moles/Vol] 3.5 mmol/L Low 3.6-5.1 [facility] Comment on above: Performed By: #### 7 507184, 5060056596, 4369863, 23631902, 3806135, 0340550, 2259900328, 1598727, 9540494669 ####[facility] (DEFAULT)[address] [place] [address] 46949 Protein [Mass/Vol] 8.9 g/dL High 6.5-8.1 [facility] Comment on above: Performed By: #### 7 898748, 4308151237, 1741708, 01993823, 9094505, 1895019, 4207712048, 3373687, 5545354988 ####[facility] (DEFAULT)[address] [place] [address] 13251 Sodium [Moles/Vol] 139.0 mmol/L Normal 136.0-144.0 [facility] Comment on above: Performed By: #### 7 263755, 8926020836, 5810737, 98075609, 4651427, 0161656, 6668540536, 7657807, 4944431357 ####[facility] (DEFAULT)[address] [place] [address] 57595 Urea nitrogen [Mass/Vol] 15 mg/dL Normal 8-26 [facility] Comment on above: Performed By: #### 7 651667, 8034883941, 1018000, 06764304, 2614742, 4646450, 0644266585, 5036226, 1332476216 ####[facility] (DEFAULT)[address] [place] [address] 45231 Urea nitrogen/Creatinine [Mass ratio] 14.0 mg/mg Normal 4.6-16.2 [facility] Comment on above: Performed By: #### 7 189953, 6063297760, 9706962, 56574421, 2024052, 9687915, 4117760145, 8814654, 5069705311 ####[facility] (DEFAULT)[address] [place] [address] Head or Brain w/o Contras ton [...] 12/21/21 9:19 pm Technologist: Erwin CHAUDHARI Normal [facility] D-Dimeron 12-21-2021 D-Dimer 0.49 mg/L FEU Normal 0.19-0.50 [facility] Comment on above: Result Comment: The [...] Liver cirrhosis ? Performed By: #### 7 631575, 5172206003, 1693084, 96931931, 8288952, 3873479, 9938241756, 5940267, 2841006147 ####[facility] (DEFAULT)[address] [place] [address] ED Note - Otheron 12-21-2021 ED Note - Other Neurology called back from [facility], on phone with Mariajose LLANES [Electronically Signed on: 12/21/2021 21:29 EDT] Nadya Garcia [Verified on: 12/21/2021 21:29 EDT] Nadya Garcia [facility] ED Note - Other paging Neurology through [facility] for consult for Mariajose LLANES [Electronically Signed on: 12/21/2021 21:12 EDT] Nadya Garcia [Verified on: 12/21/2021 21:12 EDT] Nadya Garcia [facility] ED Note - Physicianon 2021 [...] - pharynx pink and moist. NECK: -Supple ([id number]): non-tender. CARD: -Rate and rhythm: Regular -Edema: [...] I di (more content not included)... Normal [facility] ED Note-Nursingon 12-21-2021 ED Note-Nursing Vice President Of Consulting Services assumed care for pt at 2124. Pt had fluids running at that time. Will continue to give the rest of the liter per VO from MARIO ALBERTO. MARIO ALBERTO also stated that after speaking with neuro, pt is to be transferred to [facility] for MRI and further evaluation. Normal [facility] Ethanol.on 12-21-2021 Ethanol Level 9.0 mg/dL High 0.0-5.0 [facility] Comment on above: Performed By: #### 2 [id number] #### [facility] (DEFAULT) [address] [place] [address] 66942 Extra Morgan 12-21-2021 Tube Collected Yes Invalid Interpretation Code [facility] Comment on above: Performed By: #### 2 069212, [id number] #### [facility] (DEFAULT) [address] [place] [address] 04708 Extra Redon 12-21-2021 Tube Collected Yes Invalid Interpretation Code [facility] Comment on above: Performed By: #### 7 988846, [id number], 7197193, 56047475, 1544177, 2145766, 2827232700, 8046833, [id number] #### [facility] (DEFAULT) [address] [place] [address] 81371 Magnesiumon 12-21-2021 Magnesium [Mass/Vol] 2.02 mg/dL Normal 1.80-2.50 [facility] Comment on above: Performed By: #### 7 987343, 8607294113, 4959855, 28680221, 5242333, 3486576, 6094800999, 0515774, 2996396893 ####[facility] (DEFAULT)[address] [place] [address] 30369 PTon 12-21-2021 INR Coag (PPP) [Relative time] 0.94 {INR} Normal 0.91-1.11 [facility] Comment on above: Performed By: #### 7 638453, 3782603431, 8154052, 57760619, 6939526, 3676068, 8498814589, 2247630, 8167352850 ####[facility] (DEFAULT)[address] [place] [address] PT 10.2 second(s) Normal 9.7-11.8 [facility] Comment on above: Performed By: #### 7 656436, 7022836666, 8589959, 66418808, 3042167, 2856582, 3137708658, 1899431, 8676887742 ####[facility] (DEFAULT)[address] [place] [address] 13383 PTTon 12-21-2021 PTT 26 second(s) Normal 25-35 [facility] Comment on above: Performed By: #### 7 909436, 3358760934, 7496482, 74841054, 2636865, 2183829, 7620082400, 5139824, 7511365133 ####[facility] (DEFAULT)[address] [place] [address] 40203 Test Urine 1on U Preg Negative Normal [facility] Comment on above: Performed By: #### 1 [id number], [id number] ####[facility] (DEFAULT)[address] [place] [address] 20507 U Preg Internal Control Pass Normal [facility] Comment on above: Performed By: #### 1 [id number], [id number] ####[facility] (DEFAULT)[address] [place] [address] 61532 Salicylateon 12-21-2021 Salicylate Lvl <4.0 Normal 0.0-30.0 [facility] Comment on above: Result Comment: Sali cylate ranges less than 30 mg/dL are considered to be therapeutic. Levels greater than 30 mg/dL are considered toxic and levels greater than 60 mg/dL may be lethal. Performed By: #### 2 099715, [id number] #### [facility] (DEFAULT) [address] [place], [place] [id number] TnI HSon 12-21-2021 Troponin I High Sensitivity <2 Normal <=15 [facility] Comment on above: Result Comment: Male Baseline Delta 1Hr (Note pg/mL=ng/L) <20pg/mL 50-60% >20pg/mL 20% Female Baseline Delta 1Hr <15pg/mL 50-60% >15pg/mL 20% Other Baseline Delta 1Hr <18ng/mL 50-60% >18ng/mL 20% ([place] [employer] Guidelines February 2018) Performed By: #### 7 125360, 1266012456, 0289371, 13369190, 4337237, 0751244, 9711044099, 4115840, 7171464713 ####[facility] (DEFAULT)[address] [place] [address] 55705 Triage Panel 1212-21-2021 Triage Internal Control Pass Normal [facility] Comment on above: Performed By: #### 1 [id number] ####[facility] (DEFAULT)[address] [place] [address] 25576 U Amph Scr Negative Normal [facility] Comment on above: Performed By: #### 1 [id number] ####[facility] (DEFAULT)[address] [place] [address] 37167 U Vanesa Scr Negative Normal [facility] Comment on above: Performed By: #### 1 [id number] ####[facility] (DEFAULT)[address] [place] [address] 37170 U Benzodia Scr Negative [facility] Comment on above: Performed By: #### 1 [id number] ####[facility] (DEFAULT)[address] [place] [address] 29287 U Cannab Scrn Negative [facility] Comment on above: Performed By: #### 1 [id number] ####[facility] (DEFAULT)[address] [place] [address] 98719 U Cocaine Scr Negative [facility] Comment on above: Performed By: #### 1 [id number] ####[facility] (DEFAULT)[address] [place] [address] 81253 U Methadone Scr Negative [facility] Comment on above: Performed By: #### 1 [id number] ####[facility] (DEFAULT)[address] [place] [address] 53397 U Methamp Scrn Negative [facility] Comment on above: Performed By: #### 1 [id number] ####[facility] (DEFAULT)[address] [place] [address] 09781 U Opiate Scr Negative [facility] Comment on above: Performed By: #### 1 [id number] ####[facility] (DEFAULT)[address] [place] [address] 40025 U Oxycod Scr Negative [facility] Comment on above: Performed By: #### 1 [id number] ####[facility] (DEFAULT)[address] [place] [address] 56164 U Phencyclidine Scr Negative Normal [facility] Comment on above: Performed By: #### 1 [id number] ####[facility] (DEFAULT)[address] [place] [address] 94368 U Propoxyphene Scr Negative [facility] Comment on above: Performed By: #### 1 [id number] ####[facility] (DEFAULT)[address] [place] [address] 00509 U Tricyclic Antidepress Scr Negative [facility] Comment on above: Result Comment: [...] PPX Propoxyphene (Norpropoxyphene): 300 ng/mL THC Cannabinoids (05-xrl-4-carboxy- -THC): 50 ng/mL TCA Tricyclic-Antidepressants (Desipramine): 300 ng/mL Performed By: #### 1 [id number] ####[facility] (DEFAULT)[address] [place] [address] Urine Source Clean Catch [facility] Comment on above: Performed By: #### 1 [id number] ####[facility] (DEFAULT)[address] [place] [address] UA w Culture if Ind Standard on 12-21-2021 Color (U) Yellow Normal [facility] Comment on above: Performed By: #### 1 [id number], [id number] ####[facility] (DEFAULT)[address] [place] [address] Culture? Not Indicated Invalid Interpretation Code [facility] Comment on above: Result Comment: Resu lt created by rule GL_MAGR_ADD_UA_CULT1 Performed By: #### 1 [id number], [id number] ####[facility] (DEFAULT)[address] [place] [address] Glucose (U) [Mass/Vol] Negative Normal [facility] Comment on above: Performed By: #### 1 [id number], [id number] ####[facility] (DEFAULT)[address] [place] [address] 81537 Ketones Ql (U) Negative Normal [facility] Comment on above: Performed By: #### 1 [id number], [id number] ####[facility] (DEFAULT)[address] [place] [address] 93724 Micro? Not Indicated Invalid Interpretation Code [facility] Comment on above: Result Comment: Resu lt created by rule GL_MAGR_ADD_UA_MICRO Performed By: #### 1 [id number], [id number] ####[facility] (DEFAULT)[address] [place] [address] 30148 UA Bilirubin Negative Normal [facility] Comment on above: Performed By: #### 1 [id number], [id number] ####[facility] (DEFAULT)[address] [place] [address] 82419 UA Blood Negative Normal NEGATIVE [facility] Comment on above: Performed By: #### 1 [id number], [id number] ####[facility] (DEFAULT)[address] [place] [address] 43518 UA Clarity CLEAR Normal CLEAR [facility] Comment on above: Performed By: #### 1 [id number], [id number] ####[facility] (DEFAULT)[address] [place] [address] 07567 UA Leuk Est Negative Normal NEGATIVE [facility] Comment on above: Performed By: #### 1 [id number], [id number] ####[facility] (DEFAULT)[address] [place] [address] 29285 UA Nitrite Negative Normal NEGATIVE [facility] Comment on above: Performed By: #### 1 [id number], [id number] ####[facility] (DEFAULT)[address] [place] [address] 16802 UA pH 6.5 Normal 5-8 [facility] Comment on above: Performed By: #### 1 [id number], [id number] ####[facility] (DEFAULT)[address] [place] [address] 48618 UA Protein Negative Normal NEGATIVE [facility] Comment on above: Performed By: #### 1 [id number], [id number] ####[facility] (DEFAULT)[address] [place] [address] 71931 UA Spec Grav <=1.005 Normal 1.001-1.035 [facility] Comment on above: Performed By: #### 1 [id number], [id number] ####[facility] (DEFAULT)[address] [place] [address] 00552 UA Urobilinogen 0.2 mg/dL Normal 0.2-1.0 [facility] Comment on above: Performed By: #### 1 [id number], [id number] ####[facility] (DEFAULT)[address] [place] [address] 36279 Breakpoint UA Normal [facility] Comment on above: Performed By: #### 1 [id number], [id number] ####[facility] (DEFAULT)[address] [place] [address] 64459 Urine Source Clean Catch Normal [facility] Comment on above: Performed By: #### 1 [id number], [id number] ####[facility] (DEFAULT)[address] [place] [address] 50625 XR Chest 2 Viewson 2 XR Chest [...] 12/21/21 9:38 pm Technologist: Obed BELLE Normal [facility] CARDIAC HUMAIRA ADMITon 021 CK [Catalytic activity/Vol] 117 U/L Normal 30-135 [facility] Comment on above: Performed By: #### T JOÃO LOCK, CMP #### [facility] [address] [place], [place] [address] Nelida Lily CK.MB [Mass/Vol] 1.16 ng/mL Normal <=2.37 [facility] Comment on above: Performed By: #### T JOÃO LOCK, CMP #### [facility] [address] [place] [id number] Nelida Lily HSTROP <4.0 Normal 4.0-35.5 [facility] Comment on above: Result Comment: CUT- OFF POINTS HAVE BEEN ESTABLISHED BASED ON THE FOURTH UNIVERSAL DEFINITIONS OF MYOCARDIAL INFARCTION. THE UPPER REFERENCE LIMIT (URL) OF TROPONIN, DEFINED THE 99TH PERCENTILE OF cTnI DISTRIBUTION IN A REFERENCE POPULATION, HAS BEEN CONFIRMED THE DECISION THRESHOLD FOR NE DIAGNOSIS. Performed By: #### T JOÃO LOCK, CMP #### [facility] [address] [place] [address] Nelida Lily NGA 41.0 ng/mL Normal <=61.5 [facility] Comment on above: Performed By: #### T JOÃO LOCK, CMP #### [facility] [address] [place], [place] [address] Nelida Lily CBC AUTO DIFFon 02-23-2021 BASO # 0.1 103/ul Normal 0.0-0.1 [facility] Comment on above: Performed By: #### C BC #### [facility] [address] [place], [place] [address] Nelida Lily Basophils/100 WBC (Bld) 1.0 % Normal 0.2-2.0 [facility] Comment on above: Performed By: #### C BC #### [facility] [address] [place], [place] [address] Nelida Lily EO # 0.1 103/ul Normal 0.0-0.7 [facility] Comment on above: Performed By: #### C BC #### [facility] [address] [place], [place] [address] Nelida Lily Eosinophils/100 WBC (Bld) 2.2 % Normal 0.9-7.0 [facility] Comment on above: Performed By: #### C BC #### [facility] [address] [place] [address] Nelida Lily Erythrocyte distribution width (RBC) [Ratio] 14.2 % Normal 11.0-15.0 [facility] Comment on above: Performed By: #### C BC #### [facility] [address] [place] [address] Nelida Lily Hematocrit (Bld) [Volume fraction] 40.6 % Normal 36.0-48.0 [facility] Comment on above: Performed By: #### C BC #### [facility] [address] [place] [address] Nelida Lily Hemoglobin (Bld) [Mass/Vol] 13.3 g/dL Normal 12.0-16.0 [facility] Comment on above: Performed By: #### C BC #### [facility] [address] [place] [address] Nelida Lily IG # 0.02 10e3/ul Normal 0.00-0.03 [facility] Comment on above: Performed By: #### C BC #### [facility] [address] [place] [address] Nelida Lily IG % 0.4 % Normal 0.0-0.5 [facility] Comment on above: Performed By: #### C BC #### [facility] [address] [place] [address] Nelida Lily LYMPH # 1.7 103/ul Normal 1.2-3.8 [facility] Comment on above: Performed By: #### C BC #### [facility] [address] [place] [address] Nelida Lily Lymphocytes/100 WBC (Bld) 34.6 % Normal 20.5-60.0 [facility] Comment on above: Performed By: #### C BC #### [facility] [address] [place] [address] Nelida Lily MANUAL DIFF REQ NO Normal [facility] Comment on above: Performed By: #### C BC #### [facility] [address] [place] [address] Nelida Lily MCH (RBC) [Entitic mass] 31.5 pg Normal 26.7-34.0 [facility] Comment on above: Performed By: #### C BC #### [facility] [address] [place] [address] Nelidajose Bautista MCHC (RBC) [Mass/Vol] 32.8 g/dL Normal 29.9-35.2 [facility] Comment on above: Performed By: #### C BC #### [facility] [address] [place] [address] Nelidajose Bautista MCV (RBC) [Entitic vol] 96.2 fL Normal 81.0-99.0 [facility] Comment on above: Performed By: #### C BC #### [facility] [address] [place] [address] Nelida Kimbleen MONO # 0.4 103/ul Normal 0.3-0.8 [facility] Comment on above: Performed By: #### C BC #### [facility] [address] [place] [address] Neldia Lily Monocytes/100 WBC (Bld) 7.1 % Normal 1.7-12.0 [facility] Comment on above: Performed By: #### C BC #### [facility] [address] [place] [address] Nelidajose Kimbleen NEUT # 2.7 103/ul Normal 1.4-6.5 [facility] Comment on above: Performed By: #### C BC #### [facility] [address] [place] [address] Nelida Lily Neutrophils/100 WBC (Bld) 54.7 % Normal 43.0-75.0 [facility] Comment on above: Performed By: #### C BC #### [facility] [address] [place], [place] [address] Nelida Lily Platelet mean volume (Bld) [Entitic vol] 9.8 fL Normal 9.5-13.5 [facility] Comment on above: Performed By: #### C BC #### [facility] [address] [place], [place] [address] Nelida Lily PLT 320 103/ul Normal 150-450 [facility] Comment on above: Performed By: #### C BC #### [facility] [address] [place] [address] Nelida Bautista RBC 4.22 106/ul Normal 4.20-5.40 [facility] Comment on above: Performed By: #### C BC #### [facility] [address] [place] [address] Nelida Kimbleen WBC 4.9 103/ul Normal 4.0-11.0 [facility] Comment on above: Performed By: #### C BC #### [facility] [address] [place] [id number] STROKE HEAD WOon 02-24-20 [...] JANESSA SKINNER Date: 2021-02-23 13:52 Normal [facility] URINE PROFILEon Bilirubin Ql (U) Negative Normal NEGATIVE [facility] Comment on above: Performed By: #### E RUR #### [facility] [address] [place] [address] Nelida Bautista Clarity (U) CLEAR Normal CLEAR [facility] Comment on above: Performed By: #### E RUR #### [facility] [address] [place], [place] [address] Nelida Illy Color (U) LT. YELLOW Normal YELLOW [facility] Comment on above: Performed By: #### E RUR #### [facility] [address] [place], [place] [address] Nelida Lily ERUAHD A micrscopic examination will be performed if indicated. Normal [facility] Comment on above: Performed By: #### E RUR #### [facility] [address] [place] [address] Nelida Lily Glucose Ql (U) Negative Normal NEGATIVE [facility] Comment on above: Performed By: #### E RUR #### [facility] [address] [place] [address] Nelida Lily Hemoglobin Ql (U) Negative Normal NEGATIVE [facility] Comment on above: Performed By: #### E RUR #### [facility] [address] [place] [address] Nelida Lily Ketones Ql (U) Negative Normal NEGATIVE [facility] Comment on above: Performed By: #### E RUR #### [facility] [address] [place] [address] Nelida Lily LEUKOCYTES Negative Normal NEGATIVE [facility] Comment on above: Performed By: #### E RUR #### [facility] [address] [place] [address] Nelida Lily Nitrite Ql (U) Negative Normal NEGATIVE [facility] Comment on above: Performed By: #### E RUR #### [facility] [address] [place] [address] Nelida Lily pH (U) 8.0 [pH] Normal 5-9 [facility] Comment on above: Performed By: #### E RUR #### [facility] [address] [place], [place] [id number] Nelida Lily SPEC GRAVITY 1.020 Normal 1.005-<=1.025 [facility] Comment on above: Performed By: #### E RUR #### [facility] [address] [place] [address] Nelida Lily UA PROTEIN Negative Normal NEGATIVE/ TRACE [facility] Comment on above: Performed By: #### E RUR #### [facility] [address] [place], [place] [id number] Nelida Batuista UR MICRO IND NOT INDICATED Normal [facility] Comment on above: Performed By: #### E RUR #### [facility] [address] [id number] Nelidajose Bautista Urobilinogen Qn (U) 0.2 {Jose Carlos'U}/dL Normal 0.2 - 1. 0 [facility] Comment on above: Performed By: #### E RUR #### [facility] [address] [place], [place] [id number] Nelida Bautista POINT OF CARE GLUCOSEon 01-27 Glucose [Mass/Vol] 95 mg/dL Normal 74-[address] [facility] Comment on above: Performed By: #### P OCGLUC #### [facility] [address] [place], [place] [id number] Nelida Bautista PREG HCG QUALon 02-23-2021 , QUAL Negative Normal NEGATIVE [facility] Comment on above: Performed By: #### P REG #### [facility] [address] [place], [place] [id number] Nelida Bautista PROF 14(COMP METB)on 021 Albumin [Mass/Vol] 3.6 g/dL Normal 3.5-5.[address] [facility] Comment on above: Performed By: #### T HAYDE CMADM, CMP #### [facility] [address] [place], [place] [id number] Nelida Bautista Albumin/Globulin [Mass ratio] 0.9 {ratio} Normal [facility] Comment on above: Performed By: #### T HAYDE CMADM, CMP #### [facility] [address] [place], [place] [id number] Nelida Lily ALP [Catalytic activity/Vol] 103 U/L Normal 38-126 [facility] Comment on above: Performed By: #### T HAYDE CMADM, CMP #### [facility] [address] [place], [place] [phone] Nelida Lily ALT [Catalytic activity/Vol] 35 U/L Normal 9-52 [facility] Comment on above: Performed By: #### T JOÃO LOCK, CMP #### [facility] [address] [address] Nelida Lily Anion gap [Moles/Vol] 13.3 mmol/L Normal [facility] Comment on above: Performed By: #### T JOÃO LOCK, CMP #### [facility] [address] [address] Nelida Lily AST [Catalytic activity/Vol] 28 U/L Normal 14-36 [facility] Comment on above: Performed By: #### T JOÃO LOCK, CMP #### [facility] [address] [address] Nelida Lily Bilirubin [Mass/Vol] 0.2 mg/dL Normal 0.2-1.3 [facility] Comment on above: Performed By: #### T JOÃO LOCK, CMP #### [facility] [address] [place] [address] Nelida Lily Calcium [Mass/Vol] 9.0 mg/dL Normal 8.4-10.[address] [facility] Comment on above: Performed By: #### T JOÃO LOCK, CMP #### [facility] [address] [place] [address] Nelida Lily Chloride [Moles/Vol] 108 mmol/L Critically high 98-107 [facility] Comment on above: Performed By: #### T JOÃO LOCK, CMP #### [facility] [address] [place] [address] Nelida Lily CO2 [Moles/Vol] 25.8 mmol/L Normal 22.0-30.0 [facility] Comment on above: Performed By: #### T JOÃO LOCK, CMP #### [facility] [address] [place] [address] Nelida Lily Creatinine [Mass/Vol] 1.00 mg/dL Normal 0.52-1.04 [facility] Comment on above: Performed By: #### T JOÃO LOCK, CMP #### [facility] [address] [place], [place] [address] Nelida Lily EGFR-AF PALAUAN >60 Normal >=60 [facility] Comment on above: Performed By: #### T JOÃO LOCK, CMP #### [facility] [address] [id number] Nelida Lily EGFR-NON AF PALAUAN >60 Normal >=60 [facility] Comment on above: Performed By: #### T JOÃO LOCK, CMP #### [facility] [address] [address] Nelida Lily Globulin (S) [Mass/Vol] 4.2 g/dL Normal [facility] Comment on above: Performed By: #### T JOÃO LOCK, CMP #### [facility] [address] [place] [address] Nelida Lily Glucose [Mass/Vol] 95 mg/dL Normal 74-[address] [facility] Comment on above: Performed By: #### T JOÃO LOCK, CMP #### [facility] [address] [place] [address] Nelida Lily Potassium [Moles/Vol] 4.1 mmol/L Normal 3.4-5.0 [facility] Comment on above: Performed By: #### T JOÃO LOCK, CMP #### [facility] [address] [place] [address] Nelida Lily Protein [Mass/Vol] 7.8 g/dL Normal 6.1-8.[address] [facility] Comment on above: Performed By: #### T JOÃO LOCK, CMP #### [facility] [address] [place] [address] Nelida Lily Sodium [Moles/Vol] 143 mmol/L Normal 137-[address] [facility] Comment on above: Performed By: #### T JOÃO LOCK, CMP #### [facility] [address] [place] [address] Nelida Lily Urea nitrogen [Mass/Vol] 10.0 mg/dL Normal 7.0-17.0 [facility] Comment on above: Performed By: #### T JOÃO LOCK, CMP #### [facility] [address] [address] Nelida Bautista Urea nitrogen/Creatinine [Mass ratio] 10.0 mg/mg Normal [facility] Comment on above: Performed By: #### T JOÃO LOCK, CMP #### [facility] [address] [id number] Nelida Bautista TSHon 02-23-2021 TSH 1.157 uIU/mL Normal 0.470-4.680 [facility] Comment on above: Performed By: #### T JOÃO LOCK, CMP #### [facility] [address] [address] Nelida Bautista TSH RANGE SEE BELOW Normal [facility] Comment on above: Result Comment: <0.3 4 UIU/ml HYPERTHYROID 0.34-5.60 UIU/ml EUTHYROID >5.60 UIU/ml HYPOTHYROID Performed By: #### T JOÃO LOCK, CMP #### [facility] [address] [id number] Nelida Bautista XR CHEST 1 Von 02-23-2021 [...] Start: 12-22-2021 End: 12-22-2021 ambulatory JARVIS RODRIGUEZ [facility] Start: 02-23-2021 End: 02-23-[address] DOCTOR GOODSON Facility: Payers Date Payer Category Payer Unknown [id number] 1985 Unknown [id number] 2.16.84 [id number] 1985 Unknown [id number] 2.16.84 [id number] 1985 Unknown [id number] 2.16.84 [id number] 1985 Unknown [id number] 2.16.84 [id number] 1987 Unknown [id number] 2.16.84 [id number] 1987 Unknown [id number] 2.16.84 [id number] 1987 Unknown [id number] 2.16.84 [id number] 1987 Unknown [id number] 2.16.84 [id number] 1987 Unknown [id number] 2.16.84 [id number] 1959 Unknown [id number] Summary Purpose Family History No Family History Records FoundNo Family History Records FoundNo Family History Records FoundNo Family History Records Found Advance Directives No Advanced Directives Records FoundNo Advanced Directives Records FoundNo Advanced Directives Records FoundNo Advanced Directives Records Found Additional Source Comments INFORMATION SOURCE (unrecogn ized section and content) DATE CREATED AUTHOR 02/28/2021 [facility] DATE CREATED AUTHOR AUTHOR'S ORGANIZ ATION 12/24/2021 [facility] DATE CREATED AUTHOR AUTHOR'S ORGANIZ ATION 01/01/2022 [facility] DATE CREATED AUTHOR AUTHOR'S ORGANIZ ATION 01/27/2024 [facility] FOR RECORDS PERTAINING [...] BE BASED ON THE PRIMARY CLINICAL RECORDS. [facility]. provides no warranty or guarantee of the accuracy or completeness of information in this document.
--- NOTE | 2024-02-10 10:25 | US_ITS ---
[address] [address] Patient Name: LOCO HICKS MRN: [id number] date: 1985 Sex: F Assigned Patient Location: [facility] Current Patient Location: [facility] Accession/Order Number: [id number] Exam Date: 02/10/2024 10:26 Report Date: 02/10/2024 11:11 At the request of: MARYANN VIZCARRA Procedure: US OB BPP w non-stress EXAMINATION: US OB BPP w non-stress HISTORY: Gestational diabetes mellitus COMPARISON: No relevant comparison available. TECHNIQUE: Ultrasound biophysical profile was performed in the radiology department. FINDINGS: BREATHING MOVEMENTS: 2 GROSS BODY MOVEMENTS: 2 TONE: 2 QUALITATIVE AMNIOTIC FLUID VOLUME: 2 PRESENTATION: CEPHALIC HEART RATE: 145.16 bpm AMNIOTIC FLUID VOLUME: 14.6 cm GESTATIONAL AGE: 36 weeks 2 days US/US OB BPP w non-stress IMPRESSION: Total biophysical profile score: 8 Electronically authenticated by: CADEN COX Date: 02/10/2024 11:11
[2024-02-10 11:04] VITALS: BP 134/82; PULSE 99
== END 2024-02-10 11:40 | disposition home or self-care (01) ==
LOC: US 07:08 → FBC 10:02
PROVIDERS: Visit Provider Obstetrics & Gynecology
DX: O24.419 Gestational diabetes mellitus in pregnancy, unspecified control (principal); Z3A.36 36 weeks gestation of pregnancy
CPT/HCPCS: 76818

== ENCOUNTER 2024-02-13 07:06 | Outpatient (OUT) | payer BC, SELFPAY ==
--- OUTSIDE RECORDS SUMMARY | 2024-02-13 07:08 | XMS_ITS | CCD ---
Author Organization [facility] Team Providers Care Clinical Dietitian Name Role Phone NAINAC, DR OLSON Primary [...] Coding Summaryon 12-31-2021 Coding Summary HTMLBase 64 PvgnmiwlTAa1zHp+PGhl YWQ+UO5NIEDsS93wtAAi aF6GG0kUCR0AHJNQCRMK JL6TDN9prHH2RXnhT1Em biAv LvlwkUTcTS24HMf4MVO3 wKelBXbqwH7vvRYqK3v7 NjUxGN14xX62ZOpeUMWi SzL9DgDabrsphELp Q7zjVsFboAUeMxc+PHRh YmxlIHdpZHRoPScxMDAl KvPgpHvxVR5rFk1gAISm LWNvbGxhcHNlOiBj j4jcXGWfFFkdMU7scLsy I2CykJH1TZGoy1r8Jh68 dHI+TTYvVSW9pFsrAUvv g410HnIma5zqJFW6 zXYnSNioYKG4S86rb0V2 UUSvJUBvQET8fSD0kJ2n wFxyxcqiO0YbzWUrDnF2 RCS0wUFmaE6wgOxq ekyygC7wKcd+K27LEK1K EGYKZF0NDnp5C7PoRefy dHI+GJ84LTOjID08gUHu eUAjz1qczYy6TmBk NGRwFFH5kHoqBRjkm5Ou WTQaD29ytRNef7P0VXEd dZkktHIlOeZkeSY5wW9f AMtinpccu3wokewc Ntwsz5nhwo01mO30A02x VDtaJGFrMLM9OTMhOYKb hVbvgx9zsP4eJw2+IDxj r4aqq7hqsHs6JaJu PTHikwVzpExgIXP2g8Hv Ah38B6VrdBjvn9UrMod8 wl27dLWfp3I9jDG3VBuy BZUvlG9tAUzgNoP0 BHAeWiSmuL73eFGrMYvb Do3qfPrbxCrsGZ1vHXHc zelsNTYieT4tLJDgzOEd qZkfYS8aOLYswqeh s064PyBfOBU4XXPflRGn W8MxxH2nQlQzWZQoLALz K2YtnYElLCypB185SIkh DbM3BBTzejUqF7Mp LROrlZrxRdH3n9E7Rq6Y k9BimytcTPR1KWzdMZS2 VrO3VaOlZjM4A6JcClh2 BBTqkUjtFQ2zC0Bo ZHUjelgkmxjvjJP2WVXy VQOpyE04vTTkYZlqCz3t f2S5y302VSBoXHLoqM10 Be9rvMqtKGQhiSWK fV4sxmcyf4nnpognVdAo SOXwMBw0HSi1NGCvoAif QzPhNVQ7TzU5SUK0tQIj hC7reRkuqmdiuC2y Oyc+B91uxL4aRVX9TYR4 vuhdBNFeawLoDC22NV85 D2ToZsjlrYJomTI+PGRp drCokEtvJG3rGaCk u7kjp0UxXRpwZ2AbUHDx KEgrVan6BTFmVUY1zTD6 hC3aTRRzENoyv0J4nYN0 G1DxzxPnzv7xr0el BFJtYFewT74rjPSgc3X4 WXHpnVL0CTPtoRgzBqHr rQ63Fyb+DJTjxGqbk7Bi Ztlzz4njt4jahQk9 IjMwJSIgdmFsaWduPSJ0 q0EaSb15V47dISbuXSSp UXTuCMUlKUSgmTnocm7c oE7xWv4+PGNvbCB3 rTZ3gS4iQNTiScV4MKou A069JuLhpZRnJjjlw2rw o3hxkPs0KiYcBOWeomDv yCwwUAX4m0FoLa03 A96uUZtcANJoQMMjCIOq FTZjeUjbue4bkC9ySc5+ KH5fu7zdfw86dP28hZV+ RDYzGEC1cTiaYFom BRGjpC6hUGlzBcG4LRMu HoMphP91uUXwFXwtQj5s uSkviYynIK4iZBTfnvit p677AnYwx7urNBNj qJAtPEhxNIQ9P68rq1S2 LUHkNPFjGYL7rGY7wW4k bGlnbjogbGVmdDsgdmVy hTdvGVbiFRdxW983 IHRvcDsnPlBhdGllbnQg IeKdYHi0F1PdYwo4NEEl nYoaXP0ujFCoQAipIt8v hTqjcCgeGH5vGLSr hcewo047LdDbb7csMPBp xZYkNYckCEW9N45er8O5 UBLqEKLwONZ1qBC5oE0b bGlnbjogbGVmdDsg cxIojIrpTLeoELqvM750 IHRvcDsnPkJpcnRoIERh sJR4MM10BM16sYFgn6P8 vVD5J3PgOBAkfkbc cxgeaUH9NELtMOUbmX72 Ij4ltUcmDg2tNFRwSDJ9 MAXdcNXpH1YwnO0aXzYp UBPcJNAwY1VbyNVh ADnyJ978ORbjZvL7EZIe odVtR5FbTTLjrRvoAnE0 c6S0Cb5MQ4W0OT89NX97 aICmm2Y5vHP5U3Ap QEZdrrytttbqnQR5JOCa ORXnhK88Jk1guJmtXd8l WOHtQMV1TQGafKMwD1Dl oI8hWkLpSDNxOCSa P4JnwVJdLYjzL924FOmj EgX4XIHgjiNeC3EqARVj wNkcZhZ2e1D9Hs6IZJc0 WQ64XL74gMNyy0T5 aZR0T5EiGSXklhhzksij yDC4OWGjIHPdlG04Hv5p bSmiAc8lCENtINN1MONp aPNyL7XdlD3cPcQt FUAvKLVkV4GauXWgHPbb H583NMlwGnN7OWAxcjPp F3LsXFAfqMouDtX3a4A1 Em2MJOCvCH71PYC9 tOY3UZ35ZV45D7HoVljz dGFibGU+PHRhYmxlIHdp ZHRoPScxMDAlJyBzdHls GH2eLp3aDAFjUHJl oUyzmOPjJeSgf9inHCAd VUccQB9ogVbiG9IhwBP8 NLOrf3f9Si45T13nW6Vh dXA+FXLydBX6kZP9 bH5fOhKpPvC8MDwiY227 SuQrlHUjPixga4wup6gf yMl6WlR6QGTuauZgeOcd GOH1w8YoTn23I40t IHdpZHRoPSIxNSUiIHZh cAbotu4kdJ4uBo3+PGNv nFQ1uCC8fZ1cCpDyTpR1 ZOslW258GuJswDQk Nhbwi0hzb4shaKn4YqYz UAOtjnGfwKqzHXH1q9Md Pz43P5MpqTzzv6VvRxz4 yo76bHYhq4N3xDH5 E3ZjUTPjghjfzDSlcCdi RV2eLUDueuwwDETwjJ9z ZVAoY0x1YqXhUcA1ULrl T5PdhxO3TAIqyXYr ODqgPFW2Y83ty2D8HWCs FFCtLKJ3gIX1uF0xwBbs bjogbGVmdDsgdmVydGlj UFmzCEhfX177AKQj yZquGLBhdO4oODSqiBSf eOvuCB9nUXFewfmyCwtV HFYIRIAEFFOXBwGETP23 EF92yOXje2M1bUL8 A9UvAPYusibobynczMX9 SPMoNTKfpV33pQRjZYnm Oq0no5R8g951PYKdAEJr dE67Nw0hbUjbOVAw rEYOoW4ryizga7brgtlc GbRjWTPiDGc1TZz3UPTb rBtaTpHeUVM0EuM4AWL7 rOIwoS3hrQrdbjws bK2zPxx+MDEvMDgvMTk4 ODwvdGQ+DUPgWBE4xBxo LSyaYSWznH1wYQWhA2s1 TyKeQoN9NSdvG9Nv BHZuztyaLw50qZ7oTrKb AuR5EQkuS2XschJ6LGTw tVFxFIviBBE9L83fq3A0 HMHfEAMsHNE9iKK7 mJ8bmPdujuxpuZIayNto zlYqoRxjRLgpMEydR409 DWNypZphKgE7UAnqAZLu GD81IV07oUKhv7Z5 sTM8B5CdDGNfyyoqqmtw dJX3PSOtCDGmmK24cKCh NRidZp0di0I3q705NUGr NMJstI91Nn7yyImg KGSnuBLWuY6voyedo2vg fezkTwQjLWSzCRb4KUh6 AFUosIdvPeQsFPP8MsP3 XSV7yDRcoP0qoXzq zsinsW3mQpv+RkVNQUxF AO76CE28lHPif9J9cLF1 F4GeUJOygorkymizfLU5 ADVaWAAqwA33iIZl PAzkUw0eh1P6m720NEPl FGNmcF83Zf0xgLneGUVd tBSIsS3kghiez1xzsnkd VcCgHWBvSVc3KBf8 IHNsaErcMhPwLXP6ZnY7 DBZ8rTJlhT1zoSolocyy jN5zWny+P1O3X1ElMijn dHI+IV68CAMgXC95 cBRueXHrq6vhqNy0CxJm EPOaYAI2vFxhRKauh8Yo ESIkD37rpMPqf6E5ODSs bGxhcHNlOyBlbXB0 fT1dKGhjbqvfd1soyaxl Gjzfe1shty13eE97Q56w IHdpZHRoPSIzMCUiIHZh wAekhe8ymA8gMp2+ MOOxeYZ8wFA3bQ3rSpMc SzD2CYxlW238QgAqdNPh Rmgyf8fdd7usrJf1NdNi JSIgdmFsaWduPSJ0 e1BwOg77S77gTVaxCEBe BQToLZMrUJNfzEiizz1n qK6vAq0+VX7jl4slug33 hH24nIM+PHRkIHN0 bIhfCUykSVDspC5tCGqo HsO0BCJzCfJxaF68jOGj FJthAi4flTgnvJptVK2r OOYxxayvp383ViUu a8paBBVarZLzPSclGZO8 V31bq5T9NIPoQJPcKZO0 eLV1bU3zpZdersxvcFEr dDsgdmVydGljYWwt BMeqH975VEMgjVraDtQj rKByF5zeyzSNMZ0xOfqo dGQ+TIOzHSL7iFeuZEvo HZHklD2qAKUhN1e3 HiAmBlO3BFwsY8XpumA9 UWYxcULrOGZhgUJCaO2m tlsbj4eerrzeHxEgFJQm ITm3DCn2DMFykFer VzZbWEV7HnA4LZW7qPQv uU7ovUisqjvqqW9fRxi+ RklOOjwvdGQ+PHRkIHN0 nMjdIDanORSfrZ4m OCQjS1o1KzXgCaK4OEww R0OujhU9BUIyyHSvJGDg yLWRiW4ywqpnv2lmvija OlZnEKOfBKa8VLs5 GRBurEznQdVcIJV6ObS0 DXQ3sTNiwY6ydKfbxrge cA5mJfa+TVJOOjwvdGQ+ LFOgTHW5cIswTVfl ZTZrbS6nIJHrA9x3VnGi PdD6RQpzF9IyepV5ILZw hRVjGJTesYVDtV4iuyfo v6rtyokeAdAmRHPk PGh3GWe8JIImuWivFsNb LJN3KwR9NEJ2nBUljL9u yWbxxenxqD2wZlq+UGF5 RAH6SE37BW01V9Nm PjwvdGFibGU+PHRhYmxl IHdpZHRoPScxMDAlJyBz kWgkJL2aFb3aMYJxOSDq xYdkeJBfUkNdd5mf YXB (more content not included)... [facility] Coding Summary HTMLBase 64 WtsaenksMBn5cWa+PGhl YWQ+IV5HFSLaS18zqXIy tY8SD3aUHJ1FGKAPJYVS TB4IYB1fhMQ5HHjzP7Op biAv GjgrwNZrIC95FKy5IUP8 mObrPDlugY1koUPmF8s3 XtCcFE82pA50OPfqTGYa KrL9IqNimfnlfRNq L5eeLzCyrBRxAcb+PHRh YmxlIHdpZHRoPScxMDAl ElQnsDaeGT0iLn4nWVOe LWNvbGxhcHNlOiBj t8mmQTQhGWdiAM7eeFvr Q9ZszBN0AZKzh4o6Au49 dHI+HDUwKDR0pFumPCkg r574StYro6lrAER4 rZWkFUdaQSJ3V04eb8J9 TKPvFCRhCOG8jOC2lH6f kNwntkrgC2MwiFGxAgQ9 BEQ3pODxoL0eeHpo uklxgU2kCtf+B87UCS6S VZHXFB6ULer9U7TyWrcu dHI+TX97VFObPS24mLCc mPQal6mofRb4BtMv FQDvRHH1sCdyTKird3If FPJwU37fpTIbh6Z4UHEr rVaonGOpElEgeJP0mA0c AHqmouspc0zkmtwz Ksvpw1oosf07hJ84N82d YVmjOSJlDGN9NFYfVFRg qQondc1ciM7wJo5+IDxj x8bkk5rsxOc9KsJn CEPtoiBmrUkpLPJ5l6Xk Nr13K6ErfWpax7VhWhl8 tv71cFHze7E5rQH6ZHuu SUMstQ3yDRloEjO9 YPFpRtUngW40fOEdYUuy Gi3zbLnkxVzbOU5xDKDe htawDSDauT9sJEQohNEy tRhzHD1kJJJblujq x956YgFuAAF0XLKuaBJl X8HbaA5rSaAcFSZlMYDz W9HygHRzZVgzB856DEkv PjJ6URYmwaAjM8Gi QCIpwHluEdC8c1V8Ty4N v2EihqreBGJ9VIsyTSD7 SeH0QcZmWgG2K2HbYfo6 TQAsoGvkND6uZ2Xa NVEchgsfgcpfdHM5CZJd LNSdhC88qEQmWZcxZz4s n8R5s811WKZeSRLfhG00 Ol8ubKpkRWJjqKFT eQ4cilmcg6wmcexyGbDg MSIiHEb6PNr1YVNlzXcf DpSoXFH5DiY4OXQ0vCTa lS7uzNjrydlnbB8u Oyc+W79ruI0pTIP7DVN1 jzjvGPTtwiDhDN55CG63 D5BxZhlsxQNbbCU+PGRp msWjiUoiNJ7ySxHp w0jpa0FkMGdzS1GzZHJz UEliXgx3QZJuLKV0hHC3 cQ8iJCDbMLcoz7Z4aZE2 Z0TipuZejv5ix9ze NBXhCLpoG23vaOWaj5M3 SBOanKA9BHCbnHytHvXb iN92Ynq+PFTnzOoxt8Il Jfziz5oll9pymCv7 IjMwJSIgdmFsaWduPSJ0 d6QwNh45Y13oJKyuKIXc MPTrFTKqAAGrcJfolg5j bT5qHx7+PGNvbCB3 xID5sZ1tIKBxPqU2FNvl Z090WzFvjPElSfrwh3vl x3xonVe8ZkBvHHDouxQn nZvkVRH6w6ZoVc85 V39yUKliOONvALEoDEQd JKLzfXgyor4xgQ7lVe8+ GM7wi9oify65lH65xIX+ HVYwXRA1jVkeJJso NUUdxK4mCUkuZiY2JOMp ZjOqaB47nLQsWDniQk8s fIfzkLmtQB6hXZBgxrdw b607NvTym9egYCKd xQAsRGlbEDC9H40ut4F9 YQXpLATeBPV4nDI1cT5g bGlnbjogbGVmdDsgdmVy fOhbGFxbZXyuC098 IHRvcDsnPlBhdGllbnQg KsDhAYt9F1MjTcp2ECDa jYdxOS9fcLQcWUpsRs8y uVjbdAleZG3yBIYx fzzjf932ZoUsk5rgRJRy hXVlEHxlRUV6L60nb9M9 KINfCHWyDKV8lDN2uL6o bGlnbjogbGVmdDsg kxNoiHxiBXasBAmcV114 IHRvcDsnPkJpcnRoIERh jBE5AD91DE92nERyp4S7 zPO7B7ZbWRGdfztr hzkhvOD7RQCyUNEamI98 Zg7hjDcaFe4fFUSgQVR4 MVDezBHzH0DqiR6lSaZv UNReDIHcV9BqrWYo JYzqG179YNbgEwI7VMRz dqBfG8PkNJXbuCvvPhU8 o5T1Qr6EJ3R7KP99VV38 wEHha1M3bSN0R6Wf RXRlklwpfjdleAV0NNDc SUAqiA25Ks5cwTssNj5m DRFtJGJ5RSAzxXToG4Ww rT9qEjJuCVWlTMSj H6DswUOlLWksI068LTdy FoA5JLCfxaNbB5KuOYIw tDvdRjY1p2M7Cm1ROCt0 CS63OL01iSZja7M4 hSZ4E6BlDPWpyvxtxdmx aQD0BXMoOTPhlC09Wl8n bFbnAq9wMXMgJGR6QXWg tXGuQ9YncF7yYhFh JOQaVEVgI0DcwRBjWGjg Z144KCvcIwA6EVLxnaXt R1JcZSJtzZrsDjI0x4H4 Sj6TZQGuSX46KWP0 hZA3WP34WL94X7KeTshs dGFibGU+PHRhYmxlIHdp ZHRoPScxMDAlJyBzdHls BY1oZa0rYYCiNAPs eEbjvIScLxXyd0lwCBQq BWqzNG3dhKeyV6SowTA0 LOKgd8n1Wm80Z06xO8At dXA+BVLbcVU0jMH8 yX6nFoChPeZ7VKchG040 YrUmoVDvJozbw4ytp9da hZk1AvG7YPNsavCezQqb LCM8e3ZcOe83N79q IHdpZHRoPSIxNSUiIHZh uWqhan2ogR7gAk1+PGNv qMY7oDZ4wS2fXfEvLtD2 KFcbZ857VeWnsLIk Rdqbj6plc7bnhCi5TbIz EETkvoQsxLdbIZQ7e0Ep Xm29E9YscQhvp1KaJur9 ui12nJUli5U6xMY4 C2DnHVNyysxprVGynJou TL1uRTUqrbnxAMRtvN9c UMDqM1h5CjObZoT4AJvw H4UyedX2EBRfoEUf PFejQVL0S62ni3P8ZJFn NTBkZUN2cBS2lK9ktUsi bjogbGVmdDsgdmVydGlj RVrpEQeyD110APXb vGuwJJFwkG6gQROguHNu oKsmRS8wLPXybzlbAtjZ YFWHUWVHGXAVQmCOGS62 TE46dITua0A9nNB7 Y3XzXUVkvbndgtimaHI8 FHDkOVYdpE87uYWhUJyc Oa1to7W0s676WXBdRYOm qA03Mh2ffBoaDHIy nDIFzI9aehrin5pgwjyx SsFpGYMwESq2RXl4LFSn zTcnCaGlQXU5HjN8MCI8 qIJluW6jvFntuenw mA3bHtl+MDEvMDgvMTk4 ODwvdGQ+NCQsVME1oUyn ZGeeWLRkbN5wLCRlA3f6 EiCzTrP9GLslQ2Wg HCJzuqnxJx21yY3kUpDz CsN2GYchN4EsbpJ1DRNf gKIiAZoqTHO3X23mf9J0 JUInDRJbIUM3hGP8 dS9czNnqyazzcXHndAzq tmXxzBlqMGdtNFfoY731 CUJmhDozJrC6XImnMLSq BI95JL93lIFnb0I9 jTU7S9YkSBTetqkxbrmc aYN8GMXnYHDrtR66cXUg RZdpKx6vo2T4w930YXGl BRCqqC21Xg0hbBll DSAlxUNRkK0ovquzx0ec dccpOrEgQBTlLJy1VJl9 INJmwMmnSzZdFIW9KnU4 FHI1xGUksZ1bsZgq gygykP5rIdv+RkVNQUxF VY99BD31jHMah0N0dQI9 E7DzHJYbdpwbizaclYU0 AKOrOHPktY01cBFh ZTxwOa9hm8A0j530YPBq WNKgvV19Qv3ixFriLEJz qXDSnW8ituhty9cafwch GkWbIGTwOPn3XNi6 QPMtaYhzVgPoQJD2MaQ7 TLU1jYYsoT2tzUvshsbt fS8rNxu+VW9fwqfzdcU4 QY45GN08P1CqQutm dGFibGU+PHRhYmxlIHdp ZHRoPScxMDAlJyBzdHls SR5tIl9jGHMuUSLswZvf jCYkUkNbm4whHCNl MXgzWA8bgMzsG4OdiDQ2 XBHfm3x9Pv32D89mE8Iu dXA+DYGneZL8vXR0iS6c SbRaQpS3BVlyT353 PrBrlKOuNkpis0iav9us mBe8AfJdOLThwkZmnRsn URB2d9HdXn20M34xBMgh ZHRoPSIyMCUiIHZh lLfafn1lyK8fZv2+PGNv cRO4bNP7mP0iSePnWzW6 FOymM716ApTzdNYnDogf C04bX2KyvMY+PHRy Aob9EJNsrUbxEH6mqNAg XXjyAf0aVJJ2TmOcViIq HNlgP3AsDSUcjtaqursb xZV3UIKmRFMblL36 Cz7nkQepLl1uBBYzCOX3 UFJrhKCcI3WrfH4pAuAn THSbDXZrW5NknJOuNZat R248YBpxQtG9ZBYl gzYbO0MjAOYceBmhWkP1 d9Q5Fi4GvMxlbVPoUF3n JbIxHBm4Z2LgNes2NCHn hUceSD6ruWAeSVyn Hq9yfVevgKxtTR4rIUSi dsgow405WeZld6syTINy dIUqOJrsYVB0I63yk2G7 SSLvBMMyNHL1lNR1 dL5jdNvsbhwwsCDknRvr rpSzwKleOPnkIVxkG596 AEKadKafSdGUTtf8O3Gj Yst8MTGrxMcbMN1p vIVlIRidTs9snLtwxEug JE3iEJEvgyxnf090MwJu g8utCJLxaZOgGGhhJMA1 U67cm5L1CYGyFQEy IWG0hSM8mN9faMxovkzh bGVmdDsgdmVydGljYWwt PJxgB401QXRguAdfYq8Z Fqq2J9TaMoa6HHXt lGmzZM1rxNWaMFicRv5q qLvanSuaEO0eVWBblkgq m439KhQvf3dnGYEepTKm CGllUKL0G89hu1A1 QSYlILKdHYE9wMN4sE7i bGlnbjogbGVmdDsgdmVy wEvdZHzeZXbjB315LSOk cDsnPlBheWVyOjwv dGQ+FP35bp09K6BuStic Cdr5YHPlJSM7bIL8gE9i FBFbENjvt5Y1zGE7L8Hz pvUcjm6ab1nkOCIh ZTo (more content not included)... [facility] Noteon 12-26-2021 Ambulance Note [id number] [id number] [facility] ED Clinical Summaryon 2021 ED Clinical Summary [facility] - Emergency Department [address] [place], [place] [id number] ED Clinical Summary PERSON INFORMATION Name: LOCO HICKS Age: 36 Years Sex: FEMALE : 1985 MRN: Acct#: Visit Reason: Dizziness; FACIAL NUMBNESS, DIZZINESS Arrival: 12/21/2021 18:23:41 Discharge: 12/22/2021 00:02:00 LOS: 000 05:39 Check In: 12/21/2021 18:23:41 Checkout:12/22/2021 00:02:00 Address: [address] [place] [id number] PCP: Provider, None PROVIDER INFORMATION Provider Role Assigned Unassigned Alvin Bryan ED Provider 12/21/2021 18:26:52 12/21/2021 18:30:20 Sanjuana Ramirez BUDGET AND POLICY ANALYST Nurse 12/21/2021 18:29:17 12/21/2021 23:14:12 MARIAJOSE EDEN ED PA 12/21/2021 18:30:25 Kerline Cartagena BUDGET AND POLICY ANALYST Nurse 12/21/2021 21:46:32 Kerline Merrill RN [...] - pharynx pink and moist. NECK: -Supple ([id number]-bykne): non-tender. CARD: -Rate and rhythm: Regular -Edema: No -Calf pain: No RESP: -Respiratory effort and chest excursion with respirations: Normal -Breath sounds equal bilaterally: Clear -Wheezes: No -Rales: No BACK: -Signs of pain with movement: No ABD: -Distended: No (more content not included)... Normal [facility] ED Patient Education Noteon 12-22-2021 ED Patient Education Note Education Materials [facility] ED Patient Summaryon 022 ED Patient Summary [facility] - Emergency Department [address] [place] [id number] PATIENT DISCHARGE INSTRUCTIONS Patient Information Name: LOCO HICKS Age: 36 Years Date of : 1985 Reason For Visit: Dizziness; FACIAL NUMBNESS, DIZZINESS Arrival Time: 12/21/2021 18:23:41 Primary Care Physician: Provider, None Attending Physician: Alvin Bryan Comment: Visit Diagnosis: Diagnoses This Visit Dizziness ([id number]) Paresthesias (R20.2) Visual disturbance (H53.9) Prescription Information: If you have been given a prescription for narcotics, seek immediate medical attention if you have any difficulty breathing or any sudden status changes such as confusion and sleepiness. If you or anyone you know is experiencing suicidal thoughts, mental health, alcohol and/or drug addiction problems; contact the [facility] 17/02 Crisis Hotline -Text 4ZRDA to 803978. If you received any narcotics, sedation, or [...] and treatment you received today in the [facility] Emergency Department were for an urgent problem and are not intended as complete care. It is important for you to follow up with a doctor, nurse practitioner, or physician?s electrician's assistant for ongoing care. If your symptoms [...] so we can reach you if necessary. [facility] Emergency Department has provided you with a complete list of medications post discharge. Please inform your trail maintenance worker/provider of your visit and for further [...] MD 12/22/21 Final result Normal [facility] MRI CERVICAL SPINE W WO CONT [facility] 12-22-2021 MRI CERVICAL SPINE W WO [...] MD 12/22/21 Final result Normal [facility] [id number] 12-22-2021 SARS-CoV-2 (COVID-19) RNA SHELBI+probe Ql (Unsp spec) Not detected Normal NOTDET [facility] Comment on above: Result Comment: Rapid [...] management decisions. Fact sheet for Healthcare Providers: https://www.fda.gov/media/219281/download Fact sheet for Patients: https://www.fda.gov/media/238045/download Methodology: Isothermal Nucleic Acid Amplification Performed By: #### C OVRB #### [place] [address] [employer] Server: Campbell Simmons MD SARS-CoV-2 (COVID-19) PCRon 12-22-2021 Employed in healthcare? No Invalid Interpretation Code [facility] Comment on above: Performed By: #### 6 [id number] ####[facility] (DEFAULT)[address] [place] [address] Group care resident? No Invalid Interpretation Code [facility] Comment on above: Performed By: #### 6 [id number] ####[facility] (DEFAULT)[address] [place] [address] In ICU? No Invalid Interpretation Code [facility] Comment on above: Performed By: #### 6 [id number] ####[facility] (DEFAULT)[address] [place] [address] status? Not Invalid Interpretation Code [facility] Comment on above: Performed By: #### 6 [id number] ####[facility] (DEFAULT)[address] [place] [address] SARS-CoV-2 (COVID-19) RNA SHELBI+probe Ql (Unsp spec) Not detected Normal Not Detected [facility] Comment on above: Result Comment: Perf ormed by PCR methodology. Performed By: #### 6 [id number] ####[facility] (DEFAULT)[address] [place] [address] SARS-CoV-2 (COVID-19) RNA SHELBI+probe Ql (Unsp spec) No Invalid Interpretation Code [facility] Comment on above: Performed By: #### 6 [id number] ####[facility] (DEFAULT)[address] [place] [address] Symptomatic as defined by CDC? No Invalid Interpretation Code [facility] Comment on above: Performed By: #### 6 [id number] ####[facility] (DEFAULT)[address] [place] [address] Transfer Noteon 12-22-2021 Transfer Note medication list sent with patient, Complete ED chart sent with patient. CD and med list sent w. patient to Hospital [Electronically Signed on: 12/22/2021 00:05 EDT] Nadya Garcia [Verified on: 12/22/2021 00:05 EDT] Nadya Garcia [facility] Transfer Note [id number] #1.00OTGTIFF [facility] Transfer Note [id number] #1.00OTGTIFF [facility] Transfer Note transport called, [facility] called for transport to [facility]. Willie stated will call when back in area from [facility] Trip. [Electronically Signed on: 12/21/2021 22:14 EDT] Nadya Garcia [Verified on: 12/21/2021 22:14 EDT] Nadya Garcia [facility] .Auto Diff 1on 12-21-2021 Auto Meigs % 7 % Normal 12 [facility] Comment on above: Performed By: #### 7 101874, [id number], 5484551, 82962220, 9289906, 3220576, [id number], 0801304, [id number] ####[facility] (DEFAULT)[address] [place] [address] Baso Abs# 0.0 x10 Normal 0.0-0.2 [facility] Comment on above: Performed By: #### 7 046734, [id number], 6028978, 88713179, 5481151, 5487418, 8889146245, 0286763, [id number] ####[facility] (DEFAULT)[address] [place] [address] Basophils/100 WBC (Bld) 0.4 % Normal 0.2-2.0 [facility] Comment on above: Performed By: #### 7 352634, [id number], 5279372, 01549640, 1960194, 0500918, 4240755782, 8658364, [id number] ####[facility] (DEFAULT)[address] [place] [address] Eos Abs# 0.1 x10 Normal 0.0-0.4 [facility] Comment on above: Performed By: #### 7 427239, [id number], 7876544, 09834630, 8249563, 9878267, 2007259550, 8071058, [id number] ####[facility] (DEFAULT)[address] [place] [address] 88726 Eosinophils/100 WBC (Bld) 0.7 % Low 0.9-4.0 [facility] Comment on above: Performed By: #### 7 286154, [id number], 8273444, 25445263, 4209785, 6502744, 3300142097, 7120606, 5726856422 ####[facility] (DEFAULT)[address] [place] [address] 30266 Lymph Abs# 3.2 x10 High 1.3-2.9 [facility] Comment on above: Performed By: #### 7 765274, [id number], 1413201, 05591029, 4003167, 2439988, 3439216388, 8702004, 6449006392 ####[facility] (DEFAULT)[address] [place] [address] 10883 Lymphocytes/100 WBC (Bld) 40 % Normal 14-48 [facility] Comment on above: Performed By: #### 7 635934, [id number], 4506001, 04264339, 0181013, 8777727, 2330188357, 8982308, [id number] ####[facility] (DEFAULT)[address] [place] [address] 86348 Meigs Abs# 0.6 x10 Normal 0.0-0.8 [facility] Comment on above: Performed By: #### 7 777967, [id number], 8360348, 51220725, 4829013, 3988976, 0129208788, 5339808, 1368712303 ####[facility] (DEFAULT)[address] [place] [address] 37371 Neut Abs# 4.3 x10 Normal 1.5-9.2 [facility] Comment on above: Performed By: #### 7 367758, [id number], 6202788, 29997836, 8411987, 8386651, 3419439270, 8229133, 7653340874 ####[facility] (DEFAULT)[address] [place] [address] 04589 Neutrophils/100 WBC (Bld) 53 % Normal 44-88 [facility] Comment on above: Performed By: #### 7 680817, 0408625583, 5220891, 26164984, 7230140, 7377135, 6850451825, 6499992, 0183276676 ####[facility] (DEFAULT)[address] [place] [address] 65436 CBC w/ Auto Diffon 2 Erythrocyte distribution width (RBC) [Ratio] 14.3 % Normal 11.5-15.0 [facility] Comment on above: Performed By: #### 7 661667, 9847054435, 4955550, 48749125, 0572246, 0585201, 3210419635, 6697765, 6710893325 ####[facility] (DEFAULT)[address] [place] [address] 63788 Hematocrit (Bld) [Volume fraction] 42.3 % High 33.7-40.4 [facility] Comment on above: Performed By: #### 7 652066, 4671912255, 1496329, 81502575, 0919014, 1768429, 4654347412, 2282613, 1098025745 ####[facility] (DEFAULT)[address] [place] [address] 28424 Hemoglobin (Bld) [Mass/Vol] 13.7 g/dL Normal 11.3-15.9 [facility] Comment on above: Performed By: #### 7 546921, 4925743840, 2459236, 64457106, 0763784, 7564655, 7412065003, 2883162, 5206496114 ####[facility] (DEFAULT)[address] [place] [address] 93373 Instr WBC 8.2 x10 Invalid Interpretation Code [facility] Comment on above: Performed By: #### 7 835136, [id number], 6809710, 03284027, 6194486, 8078172, 7793030495, 9569565, [id number] ####[facility] (DEFAULT)[address] [place] [address] 19922 Man Diff? Auto Normal [facility] Comment on above: Performed By: #### 7 559214, 6045526008, 8397050, 03303542, 8635957, 6631234, 1875306268, 9290474, 6459907334 ####[facility] (DEFAULT)[address] [place] [address] 29124 MCH (RBC) [Entitic mass] 31 pg Normal 24-34 [facility] Comment on above: Performed By: #### 7 220663, 2141645609, 9545094, 51030042, 3902970, 0127018, 0944997508, 4020931, 7116543212 ####[facility] (DEFAULT)[address] [place] [address] 34659 MCHC (RBC) [Mass/Vol] 32 g/dL Normal 26-37 [facility] Comment on above: Performed By: #### 7 189562, 3295167652, 8220311, 24870606, 6334885, 6630191, 9508027429, 6253011, 2560008792 ####[facility] (DEFAULT)[address] [place] [address] 35845 MCV (RBC) [Entitic vol] 96 fL Normal 81-100 [facility] Comment on above: Performed By: #### 7 161212, 6478029166, 7532934, 81976639, 4873689, 8300480, 3094382483, 7290467, 0808282390 ####[facility] (DEFAULT)[address] [place] [address] 96829 Platelet 363 x10 Normal 138-427 [facility] Comment on above: Performed By: #### 7 696536, 8953518657, 2814473, 73790760, 8865535, 4126074, 0741081475, 3562189, 1603852216 ####[facility] (DEFAULT)[address] [place] [address] 71581 Platelet mean volume (Bld) [Entitic vol] 10.2 fL Normal 6.3-10.2 [facility] Comment on above: Performed By: #### 7 000368, 2792116519, 1302224, 75236632, 5354737, 1063430, 8129389815, 3645222, 7523131128 ####[facility] (DEFAULT)[address] [place] [address] 92469 RBC 4.42 x10 Normal 3.70-5.30 [facility] Comment on above: Performed By: #### 7 613338, 4413210701, 3016272, 56025191, 8098768, 7512626, 1861974121, 9937452, 6062734601 ####[facility] (DEFAULT)[address] [place] [address] 58583 WBC 8.2 x10 Normal 3.5-10.5 [facility] Comment on above: Performed By: #### 7 616042, 9216666376, 5576669, 59269123, 2192809, 0678916, 0486216422, 2594592, 6013107272 ####[facility] (DEFAULT)[address] [place] [address] [facility] Standardon 12-21-2021 eGFR Non AA 57 mL/min/1.73m2 Invalid Interpretation Code [facility] Comment on above: Performed By: #### 7 246854, 8380926991, 2774293, 23396893, 2983718, 2407593, 3573577618, 9967350, 9075642608 ####[facility] (DEFAULT)[address] [place] [address] 46457 eGFR AA >60 Invalid Interpretation Code [facility] Comment on above: Result Comment: Prescription Benefit Specialist nathalia Kidney disease could be indicated at eGFRs of less than 60 ml/min/1.73m2. Kidney Failure is indicated at less than 15 ml/min/1.73m2 Performed By: #### 7 561042, [id number], 2905035, 45965619, 0984857, 2207230, 9727443142, 4313627, 1019864915 ####[facility] (DEFAULT)[address] [place] [address] 45359 Albumin [Mass/Vol] 4.7 g/dL Normal 3.5-5.0 [facility] Comment on above: Performed By: #### 7 791114, [id number], 5954765, 95289857, 4705550, 4347243, 0363665501, 8683540, 4302083413 ####[facility] (DEFAULT)[address] [place] [address] 13908 Albumin/Globulin [Mass ratio] 1.1 {ratio} Low 1.4-2.6 [facility] Comment on above: Performed By: #### 7 258870, [id number], 3714907, 18771647, 9200162, 3614374, 0066395486, 0471627, [id number] ####[facility] (DEFAULT)[address] [place] [address] 05528 Alk Phos 99 IU/L High 32-91 [facility] Comment on above: Performed By: #### 7 133796, [id number], 7545343, 83322868, 9135655, 0453708, 3146776613, 0141175, 8937142588 ####[facility] (DEFAULT)[address] [place] [address] 89337 ALT [Catalytic activity/Vol] 32.0 U/L Normal 14.0-54.0 [facility] Comment on above: Performed By: #### 7 799238, [id number], 5642854, 69629205, 5030860, 1362888, 7036216534, 0550965, 2701624665 ####[facility] (DEFAULT)[address] [place] [address] 74279 Anion gap [Moles/Vol] 23.0 mmol/L High 5.0-19.0 [facility] Comment on above: Performed By: #### 7 875550, [id number], 0501661, 99353628, 1711670, 9519024, 4954910563, 4368654, 6696151118 ####[facility] (DEFAULT)[address] [place] [address] 00308 AST [Catalytic activity/Vol] 41 U/L Normal 15-41 [facility] Comment on above: Performed By: #### 7 645279, [id number], 5673434, 64391570, 0532133, 9654384, 0116596305, 6408409, 7882731155 ####[facility] (DEFAULT)[address] [place] [address] 33010 Bili Total 0.4 mg/dL Normal 0.3-1.2 [facility] Comment on above: Performed By: #### 7 682089, 4679273992, 6483442, 96763608, 9127399, 2394203, 4873676153, 6311460, 6433153387 ####[facility] (DEFAULT)[address] [place] [address] 87959 Calcium [Mass/Vol] 10.2 mg/dL Normal 8.9-10.3 [facility] Comment on above: Performed By: #### 7 187813, [id number], 1029633, 42524575, 4491535, 8160845, 8884874884, 2721073, 5255460842 ####[facility] (DEFAULT)[address] [place] [address] 60460 Chloride [Moles/Vol] 96 mmol/L Low 101-111 [facility] Comment on above: Performed By: #### 7 332440, 1284532541, 5941390, 32452457, 3658943, 4362116, 4871758308, 5440216, 3411265783 ####[facility] (DEFAULT)[address] [place] [address] 42011 CO2 [Moles/Vol] 24 mmol/L Normal 21-32 [facility] Comment on above: Performed By: #### 7 141797, [id number], 9517597, 86146217, 6413011, 1963358, 5082269506, 4979975, 6881917507 ####[facility] (DEFAULT)[address] [place] [address] 72193 Creatinine [Mass/Vol] 1.10 mg/dL Normal 0.60-1.30 [facility] Comment on above: Performed By: #### 7 697661, 0135941207, 5584048, 01902555, 5613515, 3980337, 1791368122, 2794508, 7774817645 ####[facility] (DEFAULT)[address] [place] [address] 33893 Globulin (S) [Mass/Vol] 4.2 g/dL Normal 1.5-4.3 [facility] Comment on above: Performed By: #### 7 349689, [id number], 0412747, 26173499, 4963461, 5395246, 9372056751, 2241351, 7128824761 ####[facility] (DEFAULT)[address] [place] [address] 74542 Glucose [Mass/Vol] 97.0 mg/dL Normal 74.0-118.0 [facility] Comment on above: Performed By: #### 7 482884, 8313682186, 9136766, 61489827, 5849523, 6826300, 3913747710, 7545997, 2071418652 ####[facility] (DEFAULT)[address] [place] [address] 72917 Osmolality 278 mOsm/L Invalid Interpretation Code [facility] Comment on above: Performed By: #### 7 083939, 5792632250, 7341196, 13491604, 5647922, 3097230, 6706638342, 3348982, 8234432088 ####[facility] (DEFAULT)[address] [place] [address] 53683 Potassium [Moles/Vol] 3.5 mmol/L Low 3.6-5.1 [facility] Comment on above: Performed By: #### 7 066104, 8379591206, 9564429, 76769006, 3589458, 6462974, 8686966482, 4964764, 6226532291 ####[facility] (DEFAULT)[address] [place] [address] 43927 Protein [Mass/Vol] 8.9 g/dL High 6.5-8.1 [facility] Comment on above: Performed By: #### 7 024987, 9935706264, 1498072, 52638994, 1732230, 5590041, 7830655289, 8819778, 6706097620 ####[facility] (DEFAULT)[address] [place] [address] 21825 Sodium [Moles/Vol] 139.0 mmol/L Normal 136.0-144.0 [facility] Comment on above: Performed By: #### 7 939958, 5651811541, 0255957, 69961210, 9038701, 6704755, 0765448228, 8785000, 2153441171 ####[facility] (DEFAULT)[address] [place] [address] 64019 Urea nitrogen [Mass/Vol] 15 mg/dL Normal 8-26 [facility] Comment on above: Performed By: #### 7 731840, 8418010207, 7828913, 28689236, 5057187, 6155978, 9616775758, 8501812, 2631358355 ####[facility] (DEFAULT)[address] [place] [address] 63828 Urea nitrogen/Creatinine [Mass ratio] 14.0 mg/mg Normal 4.6-16.2 [facility] Comment on above: Performed By: #### 7 370517, 0207200898, 9843276, 59773061, 5934419, 6214864, 1802783569, 9013593, 5992225598 ####[facility] (DEFAULT)[address] [place] [address] Head or Brain w/o Contras ton [...] 12/21/21 9:19 pm Technologist: Erwin CHAUDHARI Normal [facility] D-Dimeron 12-21-2021 D-Dimer 0.49 mg/L FEU Normal 0.19-0.50 [facility] Comment on above: Result [...] Liver cirrhosis ? Performed By: #### 7 335903, 5554341911, 1280680, 22292785, 7974510, 2216969, 6763660265, 1644118, 3536868715 ####[facility] (DEFAULT)[address] [place] [address] ED Note - Otheron 12-21-2021 ED Note - Other Neurology called back from [facility], on phone with Mariajose LLANES [Electronically Signed on: 12/21/2021 21:29 EDT] Nadya Garcia [Verified on: 12/21/2021 21:29 EDT] Nadya Garcia [facility] ED Note - Other paging Neurology through [facility] for consult for Mariajose LLANES [...] - pharynx pink and moist. NECK: -Supple ([id number]): non-tender. CARD: -Rate and rhythm: Regular -Edema: [...] I di (more content not included)... Normal [facility] ED Note-Nursingon 12-21-2021 ED Note-Nursing Demonstrator Knitting assumed care for pt at 2124. Pt had fluids running at that time. Will continue to give the rest of the liter per VO from MARIO ALBERTO. MARIO ALBERTO also stated that after speaking with neuro, pt is to be transferred to [facility] for MRI and further evaluation. Normal [facility] Ethanol.on 12-21-2021 Ethanol Level 9.0 mg/dL High 0.0-5.0 [facility] Comment on above: Performed By: #### 2 [id number] #### [facility] (DEFAULT) [address] [place] [address] 45081 Extra Morgan 12-21-2021 Tube Collected Yes Invalid Interpretation Code [facility] Comment on above: Performed By: #### 2 513997, [id number] #### [facility] (DEFAULT) [address] [place] [address] 02859 Extra Redon 12-21-2021 Tube Collected Yes Invalid Interpretation Code [facility] Comment on above: Performed By: #### 7 468790, 0813762182, 4485276, 67710360, 2705050, 6667992, 3848014800, 0915152, 4548202410 #### [facility] (DEFAULT) [address] [place] [address] 77722 Magnesiumon 12-21-2021 Magnesium [Mass/Vol] 2.02 mg/dL Normal 1.80-2.50 [facility] Comment on above: Performed By: #### 7 194242, 5507580415, 9252268, 39066637, 8185565, 7981235, 6335664778, 6144695, 5534987476 ####[facility] (DEFAULT)[address] [place] [address] 59394 PTon 12-21-2021 INR Coag (PPP) [Relative time] 0.94 {INR} Normal 0.91-1.11 [facility] Comment on above: Performed By: #### 7 575247, 7083882747, 2311591, 02949857, 8786715, 5276045, 7372289189, 9052342, 7666336087 ####[facility] (DEFAULT)[address] [place] [address] PT 10.2 second(s) Normal 9.7-11.8 [facility] Comment on above: Performed By: #### 7 407251, 3174980025, 3364848, 40565665, 4882820, 1977139, 5184751826, 8599860, 4453829703 ####[facility] (DEFAULT)[address] [place] [address] 65771 PTTon 12-21-2021 PTT 26 second(s) Normal 25-35 [facility] Comment on above: Performed By: #### 7 237010, 1871680329, 5489523, 46374449, 7999265, 7170730, 1675001904, 6396416, 0834608989 ####[facility] (DEFAULT)[address] [place] [address] 64157 Test Urine 1on U Preg Negative Normal [facility] Comment on above: Performed By: #### 1 [id number], 064566231 ####[facility] (DEFAULT)[address] [place] [address] 97229 U Preg Internal Control Pass Normal [facility] Comment on above: Performed By: #### 1 [id number], 510439859 ####[facility] (DEFAULT)[address] [place] [address] 51502 Salicylateon 12-21-2021 Salicylate Lvl <4.0 Normal 0.0-30.0 [facility] Comment on above: Result Comment: Sali cylate ranges less than 30 mg/dL are considered to be therapeutic. Levels greater than 30 mg/dL are considered toxic and levels greater than 60 mg/dL may be lethal. Performed By: #### 2 384672, [id number] #### [facility] (DEFAULT) [address] [place], [place] [address] TnI HSon 12-21-2021 Troponin I High Sensitivity <2 Normal <=15 [facility] Comment on above: Result Comment: Male Baseline Delta 1Hr (Note pg/mL=ng/L) <20pg/mL 50-60% >20pg/mL 20% Female Baseline Delta 1Hr <15pg/mL 50-60% >15pg/mL 20% Other Baseline Delta 1Hr <18ng/mL 50-60% >18ng/mL 20% ([employer] Guidelines February 2018) Performed By: #### 7 885360, 0389137859, 7612424, 84064319, 4105054, 6249172, 7091664862, 4072931, 5957705773 ####[facility] (DEFAULT)[address] [place] [address] 96146 Triage Panel 1212-21-2021 Triage Internal Control Pass Normal [facility] Comment on above: Performed By: #### 1 [id number] ####[facility] (DEFAULT)[address] [place] [address] 18593 U Amph Scr Negative Normal [facility] Comment on above: Performed By: #### 1 [id number] ####[facility] (DEFAULT)[address] [place] [address] 22395 U Vanesa Scr Negative Normal [facility] Comment on above: Performed By: #### 1 [id number] ####[facility] (DEFAULT)[address] [place] [address] 67256 U Benzodia Scr Negative [facility] Comment on above: Performed By: #### 1 [id number] ####[facility] (DEFAULT)[address] [place] [address] 55447 U Cannab Scrn Negative [facility] Comment on above: Performed By: #### 1 [id number] ####[facility] (DEFAULT)[address] [place] [address] 25515 U Cocaine Scr Negative [facility] Comment on above: Performed By: #### 1 [id number] ####[facility] (DEFAULT)[address] [place] [address] 43768 U Methadone Scr Negative [facility] Comment on above: Performed By: #### 1 [id number] ####[facility] (DEFAULT)[address] [place] [address] 26483 U Methamp Scrn Negative [facility] Comment on above: Performed By: #### 1 [id number] ####[facility] (DEFAULT)[address] [place] [address] 15524 U Opiate Scr Negative [facility] Comment on above: Performed By: #### 1 [id number] ####[facility] (DEFAULT)[address] [place] [address] 19724 U Oxycod Scr Negative [facility] Comment on above: Performed By: #### 1 [id number] ####[facility] (DEFAULT)[address] [place] [address] 40373 U Phencyclidine Scr Negative Normal [facility] Comment on above: Performed By: #### 1 [id number] ####[facility] (DEFAULT)[address] [place] [address] 04599 U Propoxyphene Scr Negative [facility] Comment on above: Performed By: #### 1 [id number] ####[facility] (DEFAULT)[address] [place] [address] 55118 U Tricyclic Antidepress Scr Negative [facility] [...] PPX Propoxyphene (Norpropoxyphene): 300 ng/mL THC Cannabinoids (67-mqc-7-carboxy- -THC): 50 ng/mL TCA Tricyclic-Antidepressants (Desipramine): 300 ng/mL Performed By: #### 1 [id number] ####[facility] (DEFAULT)[address] [place] [address] Urine Source Clean Catch [facility] Comment on above: Performed By: #### 1 [id number] ####[facility] (DEFAULT)[address] [place] [address] UA w Culture if Ind Standard on 12-21-2021 Color (U) Yellow Normal [facility] Comment on above: Performed By: #### 1 [id number], [id number] ####[facility] (DEFAULT)[address] [place] [address] Culture? Not Indicated Invalid Interpretation Code [facility] Comment on above: Result Comment: Resu lt created by rule GL_MAGR_ADD_UA_CULT1 Performed By: #### 1 [id number], [id number] ####[facility] (DEFAULT)[address] [place] [address] Glucose (U) [Mass/Vol] Negative Normal [facility] Comment on above: Performed By: #### 1 [id number], [id number] ####[facility] (DEFAULT)[address] [place] [address] 93804 Ketones Ql (U) Negative Normal [facility] Comment on above: Performed By: #### 1 [id number], [id number] ####[facility] (DEFAULT)[address] [place] [address] 64381 Micro? Not Indicated Invalid Interpretation Code [facility] Comment on above: Result Comment: Resu lt created by rule GL_MAGR_ADD_UA_MICRO Performed By: #### 1 [id number], [id number] ####[facility] (DEFAULT)[address] [place] [address] 34175 UA Bilirubin Negative Normal [facility] Comment on above: Performed By: #### 1 [id number], [id number] ####[facility] (DEFAULT)[address] [place] [address] 60117 UA Blood Negative Normal NEGATIVE [facility] Comment on above: Performed By: #### 1 [id number], [id number] ####[facility] (DEFAULT)[address] [place] [address] 58193 UA Clarity CLEAR Normal CLEAR [facility] Comment on above: Performed By: #### 1 [id number], [id number] ####[facility] (DEFAULT)[address] [place] [address] 73460 UA Leuk Est Negative Normal NEGATIVE [facility] Comment on above: Performed By: #### 1 [id number], [id number] ####[facility] (DEFAULT)[address] [place] [address] 57522 UA Nitrite Negative Normal NEGATIVE [facility] Comment on above: Performed By: #### 1 [id number], [id number] ####[facility] (DEFAULT)[address] [place] [address] 24174 UA pH 6.5 Normal 5-8 [facility] Comment on above: Performed By: #### 1 [id number], [id number] ####[facility] (DEFAULT)[address] [place] [address] 87054 UA Protein Negative Normal NEGATIVE [facility] Comment on above: Performed By: #### 1 [id number], [id number] ####[facility] (DEFAULT)[address] [place] [address] 06840 UA Spec Grav <=1.005 Normal 1.001-1.035 [facility] Comment on above: Performed By: #### 1 [id number], [id number] ####[facility] (DEFAULT)[address] [place] [address] 36151 UA Urobilinogen 0.2 mg/dL Normal 0.2-1.0 [facility] Comment on above: Performed By: #### 1 [id number], [id number] ####[facility] (DEFAULT)[address] [place] [address] 39730 Breakpoint UA Normal [facility] Comment on above: Performed By: #### 1 [id number], [id number] ####[facility] (DEFAULT)[address] [place] [address] 46139 Urine Source Clean Catch Normal [facility] Comment on above: Performed By: #### 1 [id number], [id number] ####[facility] (DEFAULT)[address] [place] [address] 63418 XR Chest 2 Viewson 2 XR Chest [...] 12/21/21 9:38 pm Technologist: Obed BELLE Normal [facility] CARDIAC HUMAIRA ADMITon 021 CK [Catalytic activity/Vol] 117 U/L Normal 30-135 [facility] Comment on above: Performed By: #### T JOÃO LOCK, CMP #### [facility] [address] [place], [place] [address] Nelida Lily CK.MB [Mass/Vol] 1.16 ng/mL Normal <=2.37 [facility] Comment on above: Performed By: #### T JOÃO LOCK, CMP #### [facility] [address] [place] [id number] Nelida Lily HSTROP <4.0 Normal 4.0-35.5 [facility] Comment on above: Result Comment: CUT- OFF POINTS HAVE BEEN ESTABLISHED BASED ON THE FOURTH UNIVERSAL DEFINITIONS OF MYOCARDIAL INFARCTION. THE UPPER REFERENCE LIMIT (URL) OF TROPONIN, DEFINED THE 99TH PERCENTILE OF cTnI DISTRIBUTION IN A REFERENCE POPULATION, HAS BEEN CONFIRMED THE DECISION THRESHOLD FOR NM DIAGNOSIS. Performed By: #### T JOÃO LOCK, CMP #### [facility] [address] [place] [address] Nelida Lily NGA 41.0 ng/mL Normal <=61.5 [facility] Comment on above: Performed By: #### T JOÃO LOCK, CMP #### [facility] [address] [place], [place] [id number] Nelida Lily CBC AUTO DIFFon 02-23-2021 BASO # 0.1 103/ul Normal 0.0-0.1 [facility] Comment on above: Performed By: #### C BC #### [facility] [address] [place], [place] [address] Nelida Lily Basophils/100 WBC (Bld) 1.0 % Normal 0.2-2.0 [facility] Comment on above: Performed By: #### C BC #### [facility] [address] [place], [place] [address] Nelida Lily EO # 0.1 103/ul Normal 0.0-0.7 [facility] Comment on above: Performed By: #### C BC #### [facility] [address] [place], [place] [address] Nelida Lily Eosinophils/100 WBC (Bld) 2.2 % Normal 0.9-7.0 [facility] Comment on above: Performed By: #### C BC #### [facility] [address] [place] [address] Nelida Lily Erythrocyte distribution width (RBC) [Ratio] 14.2 % Normal 11.0-15.0 [facility] Comment on above: Performed By: #### C BC #### [facility] [address] [place] [address] Nelida Lily Hematocrit (Bld) [Volume fraction] 40.6 % Normal 36.0-48.0 [facility] Comment on above: Performed By: #### C BC #### [facility] [address] [place] [address] Nelida Lily Hemoglobin (Bld) [Mass/Vol] 13.3 g/dL Normal 12.0-16.0 [facility] Comment on above: Performed By: #### C BC #### [facility] [address] [place] [address] Nelida Lily IG # 0.02 10e3/ul Normal 0.00-0.03 [facility] Comment on above: Performed By: #### C BC #### [facility] [address] [place] [address] Nelida Lily IG % 0.4 % Normal 0.0-0.5 [facility] Comment on above: Performed By: #### C BC #### [facility] [address] [place] [address] Nelida Lily LYMPH # 1.7 103/ul Normal 1.2-3.8 [facility] Comment on above: Performed By: #### C BC #### [facility] [address] [place] [address] Nelida Lily Lymphocytes/100 WBC (Bld) 34.6 % Normal 20.5-60.0 [facility] Comment on above: Performed By: #### C BC #### [facility] [address] [place] [address] Nelida Lily MANUAL DIFF REQ NO Normal [facility] Comment on above: Performed By: #### C BC #### [facility] [address] [place] [address] Nelida Lily MCH (RBC) [Entitic mass] 31.5 pg Normal 26.7-34.0 [facility] Comment on above: Performed By: #### C BC #### [facility] [address] [place] [address] Nelidajose Bautista MCHC (RBC) [Mass/Vol] 32.8 g/dL Normal 29.9-35.2 [facility] Comment on above: Performed By: #### C BC #### [facility] [address] [place] [address] Nelidajose Bautista MCV (RBC) [Entitic vol] 96.2 fL Normal 81.0-99.0 [facility] Comment on above: Performed By: #### C BC #### [facility] [address] [place] [address] Nelida Kimbleen MONO # 0.4 103/ul Normal 0.3-0.8 [facility] Comment on above: Performed By: #### C BC #### [facility] [address] [place] [address] Nelida Lily Monocytes/100 WBC (Bld) 7.1 % Normal 1.7-12.0 [facility] Comment on above: Performed By: #### C BC #### [facility] [address] [place] [address] Nelidajose Kimbleen NEUT # 2.7 103/ul Normal 1.4-6.5 [facility] Comment on above: Performed By: #### C BC #### [facility] [address] [place] [address] Nelida Lily Neutrophils/100 WBC (Bld) 54.7 % Normal 43.0-75.0 [facility] Comment on above: Performed By: #### C BC #### [facility] [address] [place], [place] [id number] Nelida Lily Platelet mean volume (Bld) [Entitic vol] 9.8 fL Normal 9.5-13.5 [facility] Comment on above: Performed By: #### C BC #### [facility] [address] [place], [place] [address] Nelida Lily PLT 320 103/ul Normal 150-450 [facility] Comment on above: Performed By: #### C BC #### [facility] [address] [place] [address] Nelida Bautista RBC 4.22 106/ul Normal 4.20-5.40 [facility] Comment on above: Performed By: #### C BC #### [facility] [address] [address] Nelida Kimbleen WBC 4.9 103/ul Normal 4.0-11.0 [facility] Comment on above: Performed By: #### C BC #### [facility] [id number] STROKE HEAD WOon 02-24-20 [...] JANESSA SKINNER Date: 2021-02-23 13:52 Normal [facility] ER URINE PROFILEon Bilirubin Ql (U) Negative Normal NEGATIVE [facility] Comment on above: Performed By: #### E RUR #### [facility] [address] [place] [address] Nelida Bautista Clarity (U) CLEAR Normal CLEAR [facility] Comment on above: Performed By: #### E RUR #### [facility] [address] [place], [place] [address] Nelida Lily Color (U) LT. YELLOW Normal YELLOW [facility] Comment on above: Performed By: #### E RUR #### [facility] [address] [place], [place] [id number] Nelida Lily ERUAHD A micrscopic examination will be performed if indicated. Normal [facility] Comment on above: Performed By: #### E RUR #### [facility] [address] [place] [address] Nelida Lily Glucose Ql (U) Negative Normal NEGATIVE [facility] Comment on above: Performed By: #### E RUR #### [facility] [address] [place] [address] Nelida Lily Hemoglobin Ql (U) Negative Normal NEGATIVE [facility] Comment on above: Performed By: #### E RUR #### [facility] [address] [place] [address] Nelida Lily Ketones Ql (U) Negative Normal NEGATIVE [facility] Comment on above: Performed By: #### E RUR #### [facility] [address] [place] [address] Nelida Lily LEUKOCYTES Negative Normal NEGATIVE [facility] Comment on above: Performed By: #### E RUR #### [facility] [address] [place] [address] Nelida Lily Nitrite Ql (U) Negative Normal NEGATIVE [facility] Comment on above: Performed By: #### E RUR #### [facility] [address] [place] [address] Nelida Lily pH (U) 8.0 [pH] Normal 5-9 [facility] Comment on above: Performed By: #### E RUR #### [facility] [address] [place], [place] [id number] Nelida Lily SPEC GRAVITY 1.020 Normal 1.005-<=1.025 [facility] Comment on above: Performed By: #### E RUR #### [facility] [address] [place] [address] Nelida Lily UA PROTEIN Negative Normal NEGATIVE/ TRACE [facility] Comment on above: Performed By: #### E RUR #### [facility] [address] [place], [place] [id number] Nelida Bautista UR MICRO IND NOT INDICATED Normal [facility] Comment on above: Performed By: #### E RUR #### [facility] [address] [id number] Nelidajose Bautista Urobilinogen Qn (U) 0.2 {Jose Carlos'U}/dL Normal 0.2 - 1. 0 [facility] Comment on above: Performed By: #### E RUR #### [facility] [address] [place], [place] [id number] Nelida Bautista POINT OF CARE GLUCOSEon 01-27 Glucose [Mass/Vol] 95 mg/dL Normal 74-106 [facility] Comment on above: Performed By: #### P OCGLUC #### [facility] [address] [place], [place] [id number] Nelida Bautista PREG HCG QUALon 02-23-2021 , QUAL Negative Normal NEGATIVE [facility] Comment on above: Performed By: #### P REG #### [facility] [address] [place], [place] [id number] Nelida Bautista PROF 14(COMP METB)on 021 Albumin [Mass/Vol] 3.6 g/dL Normal 3.5-5.0 [facility] Comment on above: Performed By: #### T HAYDE CMADM, CMP #### [facility] [address] [place], [place] [id number] Nelida Bautista Albumin/Globulin [Mass ratio] 0.9 {ratio} Normal [facility] Comment on above: Performed By: #### T HAYDE CMADM, CMP #### [facility] [address] [place], [place] [id number] Nelida Lily ALP [Catalytic activity/Vol] 103 U/L Normal 38-126 [facility] Comment on above: Performed By: #### T HAYDE CMADM, CMP #### [facility] [address] [place], [place] [id number] Nelida Lily ALT [Catalytic activity/Vol] 35 U/L Normal 9-52 [facility] Comment on above: Performed By: #### T JOÃO LOCK, CMP #### [facility] [address] [address] Nelida Lily Anion gap [Moles/Vol] 13.3 mmol/L Normal [facility] Comment on above: Performed By: #### T JOÃO LOCK, CMP #### [facility] [address] [address] Nelida Lily AST [Catalytic activity/Vol] 28 U/L Normal 14-36 [facility] Comment on above: Performed By: #### T JOÃO LOCK, CMP #### [facility] [address] [address] Nelida Lily Bilirubin [Mass/Vol] 0.2 mg/dL Normal 0.2-1.3 [facility] Comment on above: Performed By: #### T JOÃO LOCK, CMP #### [facility] [address] [place] [address] Nelida Lily Calcium [Mass/Vol] 9.0 mg/dL Normal 8.4-10.2 [facility] Comment on above: Performed By: #### T JOÃO LOCK, CMP #### [facility] [address] [place] [address] Nelida Lily Chloride [Moles/Vol] 108 mmol/L Critically high 98-107 [facility] Comment on above: Performed By: #### T JOÃO LOCK, CMP #### [facility] [address] [place] [address] Nelida Lily CO2 [Moles/Vol] 25.8 mmol/L Normal 22.0-30.0 [facility] Comment on above: Performed By: #### T JOÃO LOCK, CMP #### [facility] [address] [place] [address] Nelida Lily Creatinine [Mass/Vol] 1.00 mg/dL Normal 0.52-1.04 [facility] Comment on above: Performed By: #### T JOÃO LOCK, CMP #### [facility] [address] [place], [place] [address] Nelida Lily EGFR-AF UKRAINIAN >60 Normal >=60 [facility] Comment on above: Performed By: #### T JOÃO LOCK, CMP #### [facility] [address] [id number] Nelida Lily EGFR-NON AF UKRAINIAN >60 Normal >=60 [facility] Comment on above: Performed By: #### T JOÃO LOCK, CMP #### [facility] [address] [address] Nelida Lily Globulin (S) [Mass/Vol] 4.2 g/dL Normal [facility] Comment on above: Performed By: #### T JOÃO LOCK, CMP #### [facility] [address] [place] [address] Nelida Lily Glucose [Mass/Vol] 95 mg/dL Normal 74-106 [facility] Comment on above: Performed By: #### T JOÃO LOCK, CMP #### [facility] [address] [place] [address] Nelida Lily Potassium [Moles/Vol] 4.1 mmol/L Normal 3.4-5.0 [facility] Comment on above: Performed By: #### T JOÃO LOCK, CMP #### [facility] [address] [place] [address] Nelida Lily Protein [Mass/Vol] 7.8 g/dL Normal 6.1-8.2 [facility] Comment on above: Performed By: #### T JOÃO LOCK, CMP #### [facility] [address] [place] [address] Nelida Lily Sodium [Moles/Vol] 143 mmol/L Normal 137-145 [facility] Comment on above: Performed By: #### T JOÃO LOCK, CMP #### [facility] [address] [place] [address] Nelida Lily Urea nitrogen [Mass/Vol] 10.0 mg/dL Normal 7.0-17.0 [facility] Comment on above: Performed By: #### T JOÃO LOCK, CMP #### [facility] [address] [address] Nelida Bautista Urea nitrogen/Creatinine [Mass ratio] 10.0 mg/mg Normal [facility] Comment on above: Performed By: #### T JOÃO LOCK, CMP #### [facility] [address] [id number] Nelida Bautista TSHon 02-23-2021 TSH 1.157 uIU/mL Normal 0.470-4.680 [facility] Comment on above: Performed By: #### T JOÃO LOCK, CMP #### [facility] [address] [address] Nelida Bautista TSH RANGE SEE BELOW Normal [facility] Comment on above: Result Comment: <0.3 4 UIU/ml HYPERTHYROID 0.34-5.60 UIU/ml EUTHYROID >5.60 UIU/ml HYPOTHYROID Performed By: #### T JOÃO LOCK, CMP #### [facility] [address] [id number] Nelida Bautista XR CHEST 1 Von 02-23-2021 [...] 13:53 Normal [facility] Encounters Encounter Date Encounter Type Care Provider [...] Start: 12-22-2021 End: 12-22-2021 ambulatory JARVIS RODRIGUEZ [facility] Start: 02-23-2021 End: 02-23-[address] DOCTOR GOODSON Facility: Payers Date Payer Category Payer Unknown [id number] 1985 Unknown [id number] 2.16.84 [id number] 1987 Unknown [id number] 2.16.84 [id number] 1987 Unknown [id number] 2.16.84 [id number] 1987 Unknown [id number] 2.16.84 [id number] 1987 Unknown [id number] 2.16.84 [id number] 1987 Unknown [id number] 2.16.84 [id number] 1987 Unknown [id number] 2.16.84 [id number] 1987 Unknown [id number] 2.16.84 [id number] 1987 Unknown [id number] 2.16.84 [id number] 1959 Unknown [id number] Summary Purpose Family History No Family History Records FoundNo Family History Records FoundNo Family History Records FoundNo Family History Records Found Advance Directives No Advanced Directives Records FoundNo Advanced Directives Records FoundNo Advanced Directives Records FoundNo Advanced Directives Records Found Additional Source Comments INFORMATION SOURCE (unrecogn ized section and content) DATE CREATED AUTHOR 02/28/2021 [facility] [place] [facility] DATE CREATED AUTHOR AUTHOR'S ORGANIZ ATION 12/24/2021 [facility] DATE CREATED AUTHOR AUTHOR'S ORGANIZ ATION 01/01/2022 [facility] DATE CREATED AUTHOR AUTHOR'S ORGANIZ ATION 01/27/2024 [facility] RECORDS PERTAINING TO PATIENTS WHO ARE [...] BE BASED ON THE PRIMARY CLINICAL RECORDS. [facility] [employer] [facility]. provides no warranty or guarantee of the accuracy or completeness of information in this document.
[2024-02-13 08:05] VITALS: BP 127/86; PULSE 92
== END 2024-02-13 09:03 | disposition home or self-care (01) ==
LOC: FBCO 07:06 → FBC 08:01
PROVIDERS: Visit Provider Obstetrics & Gynecology
DX: O24.419 Gestational diabetes mellitus in pregnancy, unspecified control (principal); Z3A.36 36 weeks gestation of pregnancy
CPT/HCPCS: 59025

== ENCOUNTER 2024-02-17 07:02 | Outpatient (OUT) | payer BC, SELFPAY ==
--- OUTSIDE RECORDS SUMMARY | 2024-02-17 07:04 | XMS_ITS | CCD ---
Author Organization [facility] Care Team Providers Care Financial Manager Name Role Phone NAINAC, DR OLSON Primary [...] Coding Summaryon 12-31-2021 Coding Summary HTMLBase 64 GfxpqecqLVl3lPi+PGhl YWQ+CL4NJRRbQ05spPGi mZ3YN5dOJQ8AJSLBXJIO MS3QXS1mdMF2KTidE9Bu biAv WjzdwVEmJW91KPl8OSP9 kLrnQCuujI2poDMbS4s0 GcYyYZ29lK02OZrfFGFm FaI5TqJlkpvppNFp H4ddJlGekPWiHty+PHRh YmxlIHdpZHRoPScxMDAl BbKobJmjRL4eCo1gZHWa LWNvbGxhcHNlOiBj q0puRQDzDYozOC5tcWnr F2XhwXM3NYBcj9v9Ky80 dHI+MNWzTJO0aNacDKbv v709EvOmb6raURO7 cFKnGAjxFHW0V54ct9B0 EAXlPZBvZUF3fXZ9wI0o tVqlpklyC9NkdKLlZdQ5 FNT9zOUfbK2bbAho jbeypX2uYjh+T56JFF3L YNYMIB0AEfy8A4MrPyup dHI+FZ87WIBmWV76lSIf rRLpd7bwjTp4McOa FSXxWAU4sXwsQGqzp9Nq MWPhB41xaTKtp3G5LEJl lDxqbNQoXoJmcQN9vA0y VAjuhzshm4nsenkc Ddqhk3zceh74jC30D29i LPgmTEBdNDE8BSAwGCXz qBzqkr3lbD5lAd3+IDxj s5grq3fspVo4TcJa SLAjjsQopVcnDQA4s3Ha Jf03B5ZpsCljp0RfQmu0 rl60dAYve7N5hLP7SHyj YOPquP7uSZxoDyX1 ARKvKtZgyB87mCPxHBkb Nq7dcQapzYbhUU7zGSHl nzuqFOCguA9oZZXglJUw mGwzEU8uCDKbilbx g143RqQcSOE9NHXutIFt M7EklL4jAnDkWCFdGYMg E2XrsQXfDEtrV845KUxd RjH0DXCjrzMbU2Bm WPXoyEumEwT2t3R7Fb1L a2TfeprlVCV9FCnjTAX9 AiA5JyGxIzU8T1FcCln6 TTWlqDpyPD6pI0Rr WGEgxblqnivxsNI8CJUt OUCmvC80tCQxGAwsFf0n p9O9f814KKZuDDUgzS22 Lx8bgFbmVTNwhGLX sT0jkrbca1ithptwAkTm KKZiBVn9YQx5UBJcxMgi AkAfWKH5YgD2RTP3gDPx xT0yuByfxgsfyW6j Oyc+U30xuV7yWEE6IIS5 dsvqSEIbgtGgIU95UQ00 Y1UrLtbceZKdpUY+PGRp ibMlyPekTL5dAdMr k1mrs3EiTFewM7QvEPAi SSzyQwf3MLLuXTZ7aGP4 cQ5sNYUyVKqds5L7oVP4 S4CclnUqdb8it3tw LQAaPPvxE68plODar4C0 EOMcmTW9PROdlWhvKdPj dO39Mty+NKKwbMaps0Un Dwkbv6orn5fdxBh7 IjMwJSIgdmFsaWduPSJ0 x7UkFd63B07sOZlrIKYp KOWtJBIoRBPrpLvkkw1f hG9hOf4+PGNvbCB3 gON8eU8cVDYkKyJ0CHpd R418XlMjwVXoDmrok7vu v4umiTy6ThTrWYGqnmZp wYmiJEQ2k4MgHj67 U52jASduXBOkFGLgVPCg ABHmcDaffc5slS8tFf1+ HV9re9mavo28gG80cAQ+ RUFdDXN7nZoqLMvh WSNcyD8wDFosNkS8ENKa BbCbgW44yDPrTDjpIk2x fLjugMbzFI5tDTNpmagz p660SiShf7ewNLPq oMLhBIucRBO6Z40rn1B6 FXHwVGTkWSZ8tAU1gX7b bGlnbjogbGVmdDsgdmVy qCigNTivKNmhC975 IHRvcDsnPlBhdGllbnQg WvDrLAw0C3GwTxz4LVBn mKzrWL6grQCbABnnCf3l tFefwOjbQT0fVYZi wwpgr139AuJpj9uzBQXr xNHxDCsmPBR4G64aw0I4 VBIdVUStYLZ9tMA2qW8p bGlnbjogbGVmdDsg bcEsmXfcASitEQwwM800 IHRvcDsnPkJpcnRoIERh wIG8IO17QJ17jRUnn2N6 iHW5I6WpMRZqodtt gzlddLU5ERHeSQRacD84 Vc7sfEzlVv1lIDCeRBX1 OKShxUSnY2EtkW1qJdSc JCTnJOJoM1CuzABh LQdlY278PVbkSwU9OFBi klYbC3NsMDRqvIgdXbJ6 a9S9Gc9DI4R9UE01RG29 mSNpo6E9nIQ7G7Ob USDqrspwvynliYL2KQGv ONEapK21Xo3wxDdyWi2f PSEtRNF9NVCzgJRkO0Ze sD2wGnCrSSAvFIJu L4NhyIFrTZfzA610LTda PvK1TMBukjIlB6RsWHXw eIkfBtV9b2H9Ai6ODRk3 MW35FG58aQHhj7G4 iYD5T9MzONKgjiddggvo zAS0AULtKORsaE66Qy3b qTysJf1eQYWcXZK2ZKYg kAXmB0XmhC6tVuZw SJXgINDmF4IkeOHjUCna B976JSfeHpY4DQHnazBg E3YoDNOpgYicJgQ6k0D0 Un6ITSRaHK10DOW2 uLD8MN02ID65K8BnAgpl dGFibGU+PHRhYmxlIHdp ZHRoPScxMDAlJyBzdHls FS2cJi1cHCZkMEOo oKdiyJZuFnHbv8ykLSUy BKgkUK7ixGvnW4WncYV7 DRMqr5s4Nt76I83eP4Km dXA+LTNudGQ7bVK4 iX4bCaZmNcW1YUwcD216 OrYfkPHvFhtct3rjj6qt eIv6YqO1LRAhlkSqrVps EDF0a1YuJc67Q47m IHdpZHRoPSIxNSUiIHZh yUeiyu0aeY5sGa9+PGNv oIE5fRY5jS7gBkPeYzG4 NAosP791WaTtwIEa Dcdgt3dtn7kywXc5RuFd CVObmeZnrSexKAR1j7Cb Or77G9BqdKhaa5UyNnz1 oe47fAPqw7L4pED0 U2AcNERiswkvnDTbqZgx FS5yAZUzphehJQLllR9l ILHzV7t8KwTkTaN4ROir E7VoioO0ZJExsYDc ZGyvAQK4S28ty1L4CICt NQZtUFR2sSJ0rK0rpDxq bjogbGVmdDsgdmVydGlj BXpuQSnpR056NMDr iAvxUNFcgC7zZWTemYJl oKhhWJ9aTLKtzribRekQ OSEYTFUWRTUUDqVNKA24 YX81gQKwd8D9dON5 O7NdRHDsacaroidsiTK4 JXAiAJRxpM45pIRqRPxv Gj5vb6Y9j972QBZmATFo wH99Xs3ufWuyHOMy yKKVoA0glxyou9mncaij LtFuEZSpDEe0BEx3EAKl aBmaJwDpCGG5WuI5LVB5 zYBiaA9awUjoecet mZ0fEvk+MDEvMDgvMTk4 ODwvdGQ+MBBbIHH9fNpc CCnxGYFznH5xALFnV5q4 QwUiUwH6HYweN1Xe MPRjgndkZn14lB3aBcJo ZeA7PYoaQ7GepnG2VITq oFAtTOapTEM5P28hg7I9 GDAqKUUnLTS7jWD2 jU8ffEtqpdkddOSjeTtw ybKrzRgoXNnqNEwoU193 FGZphYbjRhM4LKmpZRPl NB47JJ60cYEnn6T3 aIH4O1JmDDFuilqupstk wGM3TVNsXADtnJ38lKXj SXvqLm8qb4Y1k386CYWx QYTyoV03Kk2rwZpe QMTsfYCVaA8svydas4qn skawVuMxJTXkHYp8VWi0 EEBnqTsgLfAmSKX7OkF5 CEM1cQPdfS3qgSfc kjiiaC1pRpy+RkVNQUxF QB72FG12rAVlf9C8oKG1 M5JmCMHengpcixciqTA7 PDTbOGJgmT01yWXv MNsiGh9bv6G2l869FKEx JHXdpH22Uy1xbQuxVNHe oGNIgG9xcjleq2cfnjtw IwKeLTZyTGu3JAl3 OINpyAbmXsVzPOC3NaE5 DFR3cWMknY9zbPlnjhdo bE9yWvb+O9R6U9GhNpmb dHI+TA65QYRzBG48 kTOvcUOea6oxwEm2MeVm NBKbVNY1sHcaRTbqz2Qd MPIsN82pyTMlf3I3LJNt bGxhcHNlOyBlbXB0 rK9iUSgkfmhap0zfpmwp Wzbiz0ewex39vR91U83p IHdpZHRoPSIzMCUiIHZh jOlhsg2ejC8kDi2+ ZREhmIK4zBR3qB5tEpOn BaX5FHjxI140QpLmnSRz Gidfz1sgd1blaOd7XbWs JSIgdmFsaWduPSJ0 p7JaWi51O05fTTenTMTn ASIvPADpXCTogWdmxc7u qE6qXx8+KH3fz2scsx84 gO71cKJ+PHRkIHN0 jHhsZVybQITirH5vKQgf LhV4NOVpZiYjnP92lQXe MWljDf3xtKuumPbkST4c MKCbezsqt135YoKs c2ioALUfvSIpYGkaBHM2 L57he6T0EOIwWWLcEGI8 pCC9xV2ycBlwdhpcaULy dDsgdmVydGljYWwt VOgrR200HSIkbIhjVwEa mWBtA5immwCHXH7wDvxr dGQ+OOMtOBA1gPwgBOnl CGFpfL3xCBLmS7b0 TaJcJtG5KEnwS5HhboE2 CRSvoSLgXEAwkRNCaH0u mlxdg4jgbsrzMiXaNYJt WCe3HJf6UNCvjLrl WsPyHHX0HxR3FWV2aKIg kK5rzEpcxamxsX4mNcj+ RklOOjwvdGQ+PHRkIHN0 zCwpDIptMBOkyY9g KVAmN3m4UsTxHjC5ODyt K9WuhaU6GNHpnSJzKJFk dPSHmX2nkkyrd4zmwwyd BsHtQAMcWWk6VUz0 IUKvwUrzCzXjBBH0KbM3 VRR3rOIksF4htEnjpdbq dE0xAla+TVJOOjwvdGQ+ RVYzSJW2xIszWEit BYUhdC6lWTEiX2v5CyCv DnN7BKthH0QyfsL6KZYx aYQxHPZxnXWUvS9jvers k8dtuuuuYaLgJHKb NEb1UEm7FKKtoCkgBzEq NXQ1LaX8WSP0yMBzpX5a uDedegkgiB7mSoj+UGF5 SAY5KL46FF73U4Im PjwvdGFibGU+PHRhYmxl IHdpZHRoPScxMDAlJyBz oMulAV7lEv8xAYUmRTGq zMouvTEpGyLih1ni YXB (more content not included)... [facility] Coding Summary HTMLBase 64 GqrmiucqIAs8cPu+PGhl YWQ+ID6YWWDpV46wmGGf yA4RG5hIKU3NMAXVHYZE XZ6LWZ0lqDJ9VTdiJ2Ho biAv EfilrQTxHR19YFr3GGE9 cNmaOEgjnQ0rzBImD2u7 ZcOmUJ31qJ31OGvyWECk UgR9PmPddqflsMJw H5frLrVlnEGzGyq+PHRh YmxlIHdpZHRoPScxMDAl WgVtjEhaHT9yDw3bJGFg LWNvbGxhcHNlOiBj s8rsZQFbMUsxSV2qyZkm V3BcyYK2DKYac6n6Na47 dHI+JMHuERZ7fLthELru p101TrMii0ugJHR0 aQEhEXgrOGU7J37nr3P1 QSKoPYHwPQV8eBO7mS1z jNgiducnT5XpvABeEjB2 BEG4aXJvoR5tzRei cahxiV1qObc+A29ZVH7B XLUEUB5GZqh9B3PfRhon dHI+LB72WWDoUI68eCMf xTUah1nkbUk0IzMo JYEiXZW9jTtrJEmtx9Vf QFHoR57ikDTgx9O3MSKw wQglcBAkKoAicBT9uT1a NCxkpydjz3hbfnxd Zaldv2izwa81nL00P63t AWeyXZPtIMO1UGVdKBRj uZutpr9vgE8oZh7+IDxj h6gkg9pbcVp2WdAj NQVtehRwgBjvCNX0r2Kn Mf00E3XayPmja3GyZkm2 te53xQLmt5I9sQS2AYxz ERHkmT1aUPugZyX6 FZPmYfNzhR14fMFlXCco Bg3qgOvqqKivEP2kXLSq aqdmADNagD5sVYPwvZGu xYmwFE9hZWEidhrv g334AmDlGBB4CIJekWPq C0JbdF0hZfGoOICqMTGz V6FcbMZcQHzpY357CBha VpK1KQXdbmXxV4Kl NTGuwUpgFeP3r0X4Va5P q6PxktuuSHD1TKhyTAE1 CbR0HbPpDfA8S8TiVyw6 WXKrvOxiJJ4cR8Cw RZZdlhzjchyxdCS0FEOu RKSzqI60cBAjZPhfKj9c u9U4o461GCPrYIXweV50 Lo7cvHmeCANzaVPY oC4etyowd8sfdbkmOkMk NRVgSLz9GOv8ITDneLvp DqHpHXI2MvQ6GWQ5jNOo fK8zgPjzrybizG1l Oyc+H03ltG4iJAT3CGQ6 orypBLLllvBsZG25IC45 K1IhTeaqlTRsqSQ+PGRp hzWvjRsyTQ8zBgZl h9tkv4QmJFptK3GcBEZu ZNoxEqa9GOEgCIT5vUV0 gI8tMJMuOFcyz4W7aHC0 O7JbksIcbk4la7ga NSZjNJxjD60rqGHwn0U7 IROjlEJ1CDArtMulMqBt pG31Mwf+CBAmsOxpm8Qp Bufvc0okz0mjdZa5 IjMwJSIgdmFsaWduPSJ0 c2ZrVb25J86xFVjeDZNm VCYzGOFcCVXigHkfow4f hX6cYs3+PGNvbCB3 qAJ7tE2xNVPmZmE7NEda F988NeIrkVEgQuoyn0nx y3eqxCk9EmLlXDRhqmLp cIiaQMS1u7FlDl93 B53zCWjoKHAcOTKyXTVa GTMbuYdqke3vuR0eFy5+ TK4vh0twlb93gY37dPO+ YIVfIUQ6iJlrLLar TMMmoT1cOXnoHxC3MYVh LlLvcB00uJVlYJblSl8k nRdscMkyZI6fZAMnupuk f025FrDmx8myULJh uGJySKuqQSP6U30td0L6 FFUwQRIpHNX3nLL4wV8t bGlnbjogbGVmdDsgdmVy jOwdLHpnDAgzJ924 IHRvcDsnPlBhdGllbnQg MlRtYNh3N3NoYsi4FUUz fKoaBZ9euTNqDSslSt2e sVdovYgwPS3cWVCe muwgb822JqKrj2moIUXb tKEtPNybWOI1O10yr8T3 JWPwDAMrTWL6gGS0wW8e bGlnbjogbGVmdDsg ogYwuMxjPGutUFtcQ453 IHRvcDsnPkJpcnRoIERh lSA1RI37GS10pITed2V5 bEW6I4VmIJWghgld qowkrWW2COAsXTRvaW74 As8vjJhsHs3fMCViLAH7 LTUpjIJkJ7MxiX3gPeEo JTTfXLYpH5UdwKAj AOkcH187NYinQpD7HTYh pzRrW3TcHXWiyPhbEmN9 r6K0Bh9LO3F3ZE76DR36 pWIqv9D3xUK6L2Ka LUSleogavbyeaSK0APHg LDFlaO23Ke6wgSfmIh3x ORQoZAR3BSJvfADyW0Qv zM4bLjEuLASpQPUq Q2YtoWAaIPwyO090ZVdz ZeA5UOFvjnMwM0PuNZFt dCleQsI4t1V9Zy5MJDk8 TW46NQ60dYExo2R5 xIB5D7PsMUJojhetelrb wXI9PJFlFMCruC27Vt5b oXkdFm2kVDMkFBB3VKSi bFRkK5OntX7gYmZb WTRcQPUnZ3HaoZHuRFzo L825PMbuToX0RTNggsUb O7EpMRQouJtfDjM3y3R6 Zh2JUHTcKZ57TJN5 qMX4LB20JB40F6HpXgnh dGFibGU+PHRhYmxlIHdp ZHRoPScxMDAlJyBzdHls LT0cNf3xPPAnWWQa oXvqaVWjFyGgc5saBTJx LQfrCT1uvEynH1EvbUG6 ATJqi5i3Aj39U70pL4Fe dXA+FEWioAU4wNJ9 pV9vAtTiZeP6WVpaN313 GeQnaUYhSghnq1zrw3ec mIn8QpV3VPJmtkBruEio BJZ2q0KpAk21B62e IHdpZHRoPSIxNSUiIHZh rPuhkv4ugT3wIy4+PGNv aZE0iFY8pD1sWsScDwG3 DMqoT401NzIbfNYm Rcccl7hqw9eiiNp0XrRi UZCvxwFcxAkxARU8w5Fk Qx24A6NihDoue8IyBkz8 ww28xWUla0A9xXP2 F6NyIZIokepotKUbsZmi BQ8mFJXtyxhsIWQcnJ6v PAPoF4m5BzSsDoY4XTap Z4PjtrO9PDRchQNh JCewOZM2D50vz7N1JXIu GKCpHGL4iMC9uQ9tyWqo bjogbGVmdDsgdmVydGlj HVkePDkwR276NIXh zIfsAYTjoP5oLIHjkGCa jRtyQD1zEDHctrjaBmxY ZHBYEFQDGBMHAtZCSD49 LA35kUDpa4O4dLE7 U9NvIYVrirchocvpbZZ0 JEAnGDOooW80lZGmGDuf Ch2tv2I5d637AFJrGLXi sN11Td6dhDzmVBTt fQBGkL6vwapqf5wvthwz JeSqWNOaTGw3XKv8VGKm yJseVbXlVOB2NqY8DNV7 hJDkjD1stSipgewj dE1oHvw+MDEvMDgvMTk4 ODwvdGQ+MMCvXVS1vJlb ZGzmDSAyfN9gYTHcJ2u9 HiLcUhX4NEdbS5Kr STUdhsltOy34zM3sIkOo WkZ9DTuuD3DbdfF9ECAf xMFnMGffHER4X43oe4H8 JIRoWOJlXYJ2tRZ4 eS6hlBhdwsthrTZwjTng bgNuySdySUlaBEljD358 AXNozQbuBvF9CKvnFBAq QV99AZ97fXXyi4J8 yGB9L9NiZGRvzxupholw pUA2EUVqLXCoqW52eSUy KGgjMy9ek4R4f775DCUo LDUrgG11Bd3wwXkx ZOOmkNFDjM0cyfxub5jr cagkEoCnYEScELe9ZFx8 SEKcaCuzRoFyGLM0EeU9 AUR4lDOxeA5opDvo fwvutK2mRku+RkVNQUxF AQ70TU64yXLml4F8nBK0 J7YsSPYiatwtyllwzVF5 NTIwHQCyfY67kXJw PQvkNs5rr2X2h522JCZo GWHgdL08Kt9cyCdgHGNr jHLLnH0jwropd9ukbtxs LuMfRDWbPDj9WYl5 YQQjaTpmLpMlQXI2ZwX7 BTK4jLUveB6rhXktjiog sE3vHfd+WT3porqkckR4 PH44QV95X4HkPxhs dGFibGU+PHRhYmxlIHdp ZHRoPScxMDAlJyBzdHls NA3mKv6dQZBcLXJdoCqj dNReJjYow0abQUOq ETyvSD6beZtxP4GokSW8 KGXap9p2Hv15X88kA3Vi dXA+XPYfvYZ2gOQ1jT2m TuNiLoO3QFnqQ513 UiOpmETkUlwns5eaw8id bWb9KwOuFUBxfaQnxCgc YKI8t4XtIg87Z45xUVtj ZHRoPSIyMCUiIHZh zDxwuz8maX5iPu8+PGNv vYX8bOL8jK7lOeEnOrG6 GDpeM859BxNsrRBwTgyq W09aJ9BcuSR+PHRy Gpu9FEQovGalLW3ucANn LHknPz1xDIP6VwOgQaBe JBuzD9YzLUNvyywfxflz qZJ8BRNwUDAzwW47 Do8ltZirPr3uCROcNOQ6 UMUvxXTuH9TonR2qXvMl VAYeNISgV4VwmJWpHFvw E485UFouJjT8GBEe kuGeF5QjFXGgmQiwJqJ4 l5L6Ta7SgVhvcCDqOP2t WcQmTIr1F3TjKri0RWDz yZqrKI6flFZvXFbe Mj9itEuimBzjGH8xAYPr eteir769IoYzk0vgWVCx mXGvMUcmQME5I42rh6T7 TMZnPVZmZHN1sTW9 rO5hsCtlsdkdaTCxeTmg qiWarKncEOvpVQdtF590 IPKrnXtcMuJUQxh6X3Yk Tyy3DROnzZxkOJ9i qCFgDWhbZw0ltApxpYko VT6aZVAnezkir216YbBy n4yzSFAltBPoHElaMVB6 L31wr0P2NGAlLBGe VJG4hGS0iY5rtAofbzob bGVmdDsgdmVydGljYWwt JErkV005MTUxcXavCc7H Jyu0D2PwIdk7GXEe nZkkTQ8cmYZqRAtnKv9g eSsulZzjJI1zWDPzulkc o394AyAdd6yjTLUyjWQi TFpxSPQ1I40bh7I6 IWMoPFJnGVG4gJZ7uM6a bGlnbjogbGVmdDsgdmVy ePvxYZnnJPqxI065GRJl cDsnPlBheWVyOjwv dGQ+QT50fd88I1AzRsvd Nap2BMLbBKO9eVN1eZ2o HUBgLNktm9C7cHY2A8Iq edMudx6pa3yvBPEz ZTo (more content not included)... [facility] Ambulance Noteon 12-26-2021 Ambulance Note [id number] [id number] [facility] ED Clinical Summaryon 2021 ED Clinical Summary [facility] - Emergency Department [address] [place], [place] [id number] ED Clinical Summary PERSON INFORMATION Name: LOCO HICKS Age: 36 Years Sex: FEMALE : 1985 MRN: Acct#: Visit Reason: Dizziness; FACIAL NUMBNESS, DIZZINESS Arrival: 12/21/2021 18:23:41 Discharge: 12/22/2021 00:02:00 LOS: 000 05:39 Check In: 12/21/2021 18:23:41 Checkout:12/22/2021 00:02:00 Address: [address] [place] [id number] PCP: Provider, None PROVIDER INFORMATION Provider Role Assigned Unassigned Alvin Bryan ED Provider 12/21/2021 18:26:52 12/21/2021 18:30:20 Sanjuana Ramirez PRINT JOURNALIST Nurse 12/21/2021 18:29:17 12/21/2021 23:14:12 MARIAJOSE EDEN ED PA 12/21/2021 18:30:25 Kerline Cartagena PR[employer] JOURNALIST Nurse 12/21/2021 21:46:32 Kerline Merrill RN ED [...] - pharynx pink and moist. NECK: -Supple ([id number]): non-tender. CARD: -Rate and rhythm: Regular -Edema: No -Calf pain: No RESP: -Respiratory effort and chest excursion with respirations: Normal -Breath sounds equal bilaterally: Clear -Wheezes: No -Rales: No BACK: -Signs of pain with movement: No ABD: -Distended: No (more content not included)... Normal [facility] ED Patient Education Noteon 12-22-2021 ED Patient Education Note Education Materials [facility] ED Patient Summaryon 022 ED Patient Summary [facility] - Emergency Department [address] [place] [id number] PATIENT DISCHARGE INSTRUCTIONS Patient Information Name: LOCO HICKS Age: 36 Years Date of : 1985 Reason For Visit: Dizziness; FACIAL NUMBNESS, DIZZINESS Arrival Time: 12/21/2021 18:23:41 Primary Care Physician: Provider, None Attending Physician: Alvin Bryan Comment: Visit Diagnosis: Diagnoses This Visit Dizziness ([id number]) Paresthesias (R20.2) Visual disturbance (H53.9) Prescription Information: If you have been given a prescription for narcotics, seek immediate medical attention if you have any difficulty breathing or any sudden status changes such as confusion and sleepiness. If you or anyone you know is experiencing suicidal thoughts, mental health, alcohol and/or drug addiction problems; contact the [facility] 17/02 Crisis Hotline -Text 3SKIP to [phone]. If you received any narcotics, sedation, or [...] and treatment you received today in the [facility] Emergency Department were for an urgent problem and are not intended as complete care. It is important for you to follow up with a doctor, nurse practitioner, or physician?s medical lab assistant for ongoing care. If your symptoms [...] can reach you if necessary. [facility] Emergency Department has provided you with a complete list of medications post discharge. Please inform your automotive glass mechanic/provider of your visit and for further instruction [...] for Disease Control and Prevention March 2014 [facility] MRI BRAIN W WO CONTRASTon MRI BRAIN [...] Ean Cedillo MD 12/22/21 Final result Normal [facility] MRI CERVICAL SPINE W WO CONT [facility] 12-22-2021 MRI CERVICAL SPINE W WO CONTRAST [...] Ean Cedillo MD 12/22/21 Final result Normal [facility] [id number] 12-22-2021 SARS-CoV-2 (COVID-19) RNA SHELBI+probe Ql (Unsp spec) Not detected Normal NOTDET [facility] Comment on above: Result Comment: Rapid NAAT: [...] management decisions. Fact sheet for Healthcare Providers: https://www.fda.gov/media/461255/download Fact sheet for Patients: https://www.fda.gov/media/592660/download Methodology: Isothermal Nucleic Acid Amplification Performed By: #### C OVRB #### [place] [address] [employer] Range: Campbell Simmons MD SARS-CoV-2 (COVID-19) PCRon 12-22-2021 Employed in healthcare? No Invalid Interpretation Code [facility] Comment on above: Performed By: #### 6 [id number] ####[facility] (DEFAULT)[address] [place] [address] Group care resident? No Invalid Interpretation Code [facility] Comment on above: Performed By: #### 6 [id number] ####[facility] (DEFAULT)[address] [place] [address] In ICU? No Invalid Interpretation Code [facility] Comment on above: Performed By: #### 6 [id number] ####[facility] (DEFAULT)[address] [place] [address] status? Not Invalid Interpretation Code [facility] Comment on above: Performed By: #### 6 [id number] ####[facility] (DEFAULT)[address] [place] [address] SARS-CoV-2 (COVID-19) RNA SHELBI+probe Ql (Unsp spec) Not detected Normal Not Detected [facility] Comment on above: Result Comment: Perf ormed by PCR methodology. Performed By: #### 6 [id number] ####[facility] (DEFAULT)[address] [place] [address] SARS-CoV-2 (COVID-19) RNA SHELBI+probe Ql (Unsp spec) No Invalid Interpretation Code [facility] Comment on above: Performed By: #### 6 [id number] ####[facility] (DEFAULT)[address] [place] [address] Symptomatic as defined by CDC? No Invalid Interpretation Code [facility] Comment on above: Performed By: #### 6 [id number] ####[facility] (DEFAULT)[address] [place] [address] Transfer Noteon 12-22-2021 Transfer Note medication list sent with patient, Complete ED chart sent with patient. CD and med list sent w. patient to Hospital [Electronically Signed on: 12/22/2021 00:05 EDT] Nadya Garcia [Verified on: 12/22/2021 00:05 EDT] Nadya Garcia [facility] Transfer Note [id number] #1.00[facility] Transfer Note [id number] #1.00[facility] Transfer Note transport called, [facility] called for transport to [facility]. Willie stated will call when back in area from [facility] Trip. [Electronically Signed on: 12/21/2021 22:14 EDT] Nadya Garcia [Verified on: 12/21/2021 22:14 EDT] Nadya Garcia [facility] .Auto Diff 1on 12-21-2021 Auto [place] % 7 % Normal 12 [facility] Comment on above: Performed By: #### 7 177793, [id number], 7601263, 24371780, 6434542, 6691324, 4992735577, 4954584, [id number] ####[facility] (DEFAULT)[address] [place] [address] Baso Abs# 0.0 x10 Normal 0.0-0.2 [facility] Comment on above: Performed By: #### 7 699121, [id number], 2757775, 02688129, 4732143, 7627581, 0838793574, 9713106, [id number] ####[facility] (DEFAULT)[address] [place] [address] Basophils/100 WBC (Bld) 0.4 % Normal 0.2-2.0 [facility] Comment on above: Performed By: #### 7 992662, 1198714192, 4132936, 42953028, 0249699, 9613218, 2054920797, 4358628, 7447430400 ####[facility] (DEFAULT)[address] [place] [address] Eos Abs# 0.1 x10 Normal 0.0-0.4 [facility] Comment on above: Performed By: #### 7 442551, 3182512805, 2391101, 33760593, 9255443, 9806093, 5914876242, 1746496, 2211762962 ####[facility] (DEFAULT)[address] [place] [address] Eosinophils/100 WBC (Bld) 0.7 % Low 0.9-4.0 [facility] Comment on above: Performed By: #### 7 242453, 5736443447, 0674943, 92018191, 1092214, 6170905, 0390998543, 8783215, 7618596107 ####[facility] (DEFAULT)[address] [place] [address]239 Lymph Abs# 3.2 x10 High 1.3-2.9 [facility] Comment on above: Performed By: #### 7 525582, 3174656404, 3912269, 51417587, 0156362, 8308466, 0488247642, 4663750, 0502495225 ####[facility] (DEFAULT)[address] [place] [address] 02348 Lymphocytes/100 WBC (Bld) 40 % Normal 14-48 [facility] Comment on above: Performed By: #### 7 301822, 8262153277, 0271577, 71604410, 6902663, 3520744, 9123108046, 0055879, 1861572921 ####[facility] (DEFAULT)[address] [place] [address] [place] Abs# 0.6 x10 Normal 0.0-0.8 [facility] Comment on above: Performed By: #### 7 537896, 6496811123, 3053920, 41117377, 2782136, 3312748, 5257690170, 1951181, 4727947919 ####[facility] (DEFAULT)[address] [place] [address] 20206 Neut Abs# 4.3 x10 Normal 1.5-9.2 [facility] Comment on above: Performed By: #### 7 232059, 2397841049, 0044923, 01449306, 4703650, 4302032, 5506979641, 1130254, 3109782952 ####[facility] (DEFAULT)[address] [place] [address] 82442 Neutrophils/100 WBC (Bld) 53 % Normal 44-88 [facility] Comment on above: Performed By: #### 7 219645, 8671465683, 4628438, 68756944, 8009633, 2898261, 4456695231, 4612740, 4151901184 ####[facility] (DEFAULT)[address] [place] [address] 99645 CBC w/ Auto Diffon 2 Erythrocyte distribution width (RBC) [Ratio] 14.3 % Normal 11.5-15.0 [facility] Comment on above: Performed By: #### 7 898747, 3319932750, 6200067, 30467135, 6304170, 7478078, 0229609823, 3400375, 0781878328 ####[facility] (DEFAULT)[address] [place] [address] 23015 Hematocrit (Bld) [Volume fraction] 42.3 % High 33.7-40.4 [facility] Comment on above: Performed By: #### 7 719293, 4466154915, 7011738, 34123871, 4158521, 7156805, 3193536729, 4465613, 1573561218 ####[facility] (DEFAULT)[address] [place] [address] 17896 Hemoglobin (Bld) [Mass/Vol] 13.7 g/dL Normal 11.3-15.9 [facility] Comment on above: Performed By: #### 7 743808, 5510181111, 3907239, 63842347, 3061570, 4584719, 4558019237, 7634220, 1251637147 ####[facility] (DEFAULT)[address] [place] [address] 23668 Instr WBC 8.2 x10 Invalid Interpretation Code [facility] Comment on above: Performed By: #### 7 572181, 7544808260, 2924405, 77613409, 5345880, 9592589, 0609500936, 1034367, 3874702099 ####[facility] (DEFAULT)[address] [place] [address] 11244 Man Diff? Auto Normal [facility] Comment on above: Performed By: #### 7 738672, 4962335631, 7041589, 18448499, 7797444, 7779632, 5926529670, 0692868, 0128236141 ####[facility] (DEFAULT)[address] [place] [address] 64811 MCH (RBC) [Entitic mass] 31 pg Normal 24-34 [facility] Comment on above: Performed By: #### 7 995639, 4184072129, 9780205, 72115716, 6649134, 1900955, 3107403832, 7845458, 2875378428 ####[facility] (DEFAULT)[address] [place] [address] 68643 MCHC (RBC) [Mass/Vol] 32 g/dL Normal 26-37 [facility] Comment on above: Performed By: #### 7 755975, 6207718220, 2479995, 83114072, 9767046, 7434180, 9185280022, 5364283, 9088723476 ####[facility] (DEFAULT)[address] [place] [address] 95883 MCV (RBC) [Entitic vol] 96 fL Normal 81-100 [facility] Comment on above: Performed By: #### 7 959690, 1041161528, 2594958, 33199571, 7347398, 3632234, 1120324301, 9136403, 4889970390 ####[facility] (DEFAULT)[address] [place] [address] 49264 Platelet 363 x10 Normal 138-427 [facility] Comment on above: Performed By: #### 7 346750, 5885912301, 5990132, 03023435, 7731202, 9794216, 8413607375, 6920498, 0977593682 ####[facility] (DEFAULT)[address] [place] [address] 66686 Platelet mean volume (Bld) [Entitic vol] 10.2 fL Normal 6.3-10.2 [facility] Comment on above: Performed By: #### 7 891910, 5230532040, 6927331, 29864345, 5322739, 6618157, 6941895372, 5454156, 5276283550 ####[facility] (DEFAULT)[address] [place] [address] 49317 RBC 4.42 x10 Normal 3.70-5.30 [facility] Comment on above: Performed By: #### 7 804240, 6786709594, 1134982, 84143063, 4774525, 8714192, 5613425947, 4119841, 7699515016 ####[facility] (DEFAULT)[address] [place] [address] 63292 WBC 8.2 x10 Normal 3.5-10.5 [facility] Comment on above: Performed By: #### 7 884449, 5747907994, 8980959, 61062611, 7379112, 6694899, 0633490240, 6461151, 0252608576 ####[facility] (DEFAULT)[address] [place] [address] [facility] 12-21-2021 eGFR Non AA 57 mL/min/1.73m2 Invalid Interpretation Code [facility] Comment on above: Performed By: #### 7 248546, 5297039325, 0767432, 48389863, 0351987, 9451774, 5700944038, 7252747, 5542485973 ####[facility] (DEFAULT)[address] [place] [address] 09501 eGFR AA >60 Invalid Interpretation Code [facility] Comment on above: Result Comment: [employer] Consult[employer] nathalia Kidney disease could be indicated at eGFRs of less than 60 ml/min/1.73m2. Kidney Failure is indicated at less than 15 ml/min/1.73m2 Performed By: #### 7 336832, 2515061359, 0808306, 20490475, 2603047, 3582293, 3246685375, 8681050, 5304281388 ####[facility] (DEFAULT)[address] [place] [address] 55165 Albumin [Mass/Vol] 4.7 g/dL Normal 3.5-5.0 [facility] Comment on above: Performed By: #### 7 851598, 9403839705, 2236070, 41235954, 4605972, 5149197, 2945818205, 1990664, 3928478399 ####[facility] (DEFAULT)[address] [place] [address] 34563 Albumin/Globulin [Mass ratio] 1.1 {ratio} Low 1.4-2.6 [facility] Comment on above: Performed By: #### 7 193295, [id number], 1986506, 38328574, 5803147, 4315340, 2596681321, 0220883, [id number] ####[facility] (DEFAULT)[address] [place] [address] 38112 Alk Phos 99 IU/L High 32-91 [facility] Comment on above: Performed By: #### 7 750615, [id number], 1276677, 54698682, 3092098, 9826613, 0964440688, 7225089, 0530208965 ####[facility] (DEFAULT)[address] [place] [address] 70451 ALT [Catalytic activity/Vol] 32.0 U/L Normal 14.0-54.0 [facility] Comment on above: Performed By: #### 7 732560, [id number], 1191935, 92396018, 4891445, 5741947, 0555105234, 3046287, 6918828040 ####[facility] (DEFAULT)[address] [place] [address] 80841 Anion gap [Moles/Vol] 23.0 mmol/L High 5.0-19.0 [facility] Comment on above: Performed By: #### 7 176889, 8112542990, 1294332, 92846772, 5795592, 9659353, 2196760547, 4704483, 6916746938 ####[facility] (DEFAULT)[address] [place] [address] 24717 AST [Catalytic activity/Vol] 41 U/L Normal 15-41 [facility] Comment on above: Performed By: #### 7 356690, 7084643749, 0133468, 53959194, 1419096, 1270479, 6643414297, 1821851, 8030977657 ####[facility] (DEFAULT)[address] [place] [address] 51610 Bili Total 0.4 mg/dL Normal 0.3-1.2 [facility] Comment on above: Performed By: #### 7 369648, 1310409541, 9855892, 32438386, 8880002, 2811448, 6420285958, 2742561, 7731207889 ####[facility] (DEFAULT)[address] [place] [address] 26692 Calcium [Mass/Vol] 10.2 mg/dL Normal 8.9-10.3 [facility] Comment on above: Performed By: #### 7 063271, 5297321541, 9574252, 94967227, 8153868, 5941617, 2094435866, 4596683, [id number] ####[facility] (DEFAULT)[address] [place] [address] 26419 Chloride [Moles/Vol] 96 mmol/L Low 101-111 [facility] Comment on above: Performed By: #### 7 197216, [id number], 1054075, 00364366, 3095005, 7896272, 5283503514, 0992774, 1812116167 ####[facility] (DEFAULT)[address] [place] [address] 93073 CO2 [Moles/Vol] 24 mmol/L Normal 21-32 [facility] Comment on above: Performed By: #### 7 761511, 3112981974, 4939074, 38249885, 4609945, 5604274, 3283195874, 7289825, 7548428918 ####[facility] (DEFAULT)[address] [place] [address] 90832 Creatinine [Mass/Vol] 1.10 mg/dL Normal 0.60-1.30 [facility] Comment on above: Performed By: #### 7 487234, 8682539761, 4213622, 31992994, 4572451, 8126858, 3780713974, 2448960, 9370803334 ####[facility] (DEFAULT)[address] [place] [address] 44414 Globulin (S) [Mass/Vol] 4.2 g/dL Normal 1.5-4.3 [facility] Comment on above: Performed By: #### 7 754697, 7395187742, 8880949, 68705275, 1732285, 1852915, 3782625155, 8231960, 3209046761 ####[facility] (DEFAULT)[address] [place] [address] 22453 Glucose [Mass/Vol] 97.0 mg/dL Normal 74.0-118.0 [facility] Comment on above: Performed By: #### 7 108759, 0155267481, 6871370, 24153122, 0729461, 7925730, 7331906573, 0542033, 6247275217 ####[facility] (DEFAULT)[address] [place] [address] 53972 Osmolality 278 mOsm/L Invalid Interpretation Code [facility] Comment on above: Performed By: #### 7 782177, 7379996776, 9054299, 60270125, 7508037, 5128558, 1164567461, 7871876, 3669011465 ####[facility] (DEFAULT)[address] [place] [address] 72732 Potassium [Moles/Vol] 3.5 mmol/L Low 3.6-5.1 [facility] Comment on above: Performed By: #### 7 174384, 9455025236, 2962308, 71765369, 1394483, 4896835, 3373274439, 2003139, 1770627291 ####[facility] (DEFAULT)[address] [place] [address] 78613 Protein [Mass/Vol] 8.9 g/dL High 6.5-8.1 [facility] Comment on above: Performed By: #### 7 600545, 0780790809, 2046830, 46165192, 3954437, 6993709, 1107310689, 2550198, 3635247571 ####[facility] (DEFAULT)[address] [place] [address] 33302 Sodium [Moles/Vol] 139.0 mmol/L Normal 136.0-144.0 [facility] Comment on above: Performed By: #### 7 432219, 5958521115, 0791277, 30680169, 1514075, 9856700, 7282722891, 5616788, 3342014498 ####[facility] (DEFAULT)[address] [place] [address] 39881 Urea nitrogen [Mass/Vol] 15 mg/dL Normal 8-26 [facility] Comment on above: Performed By: #### 7 299329, 4177231871, 1833843, 83426799, 4116405, 2536078, 5816392886, 2097900, 1727274705 ####[facility] (DEFAULT)[address] [place] [address] 44442 Urea nitrogen/Creatinine [Mass ratio] 14.0 mg/mg Normal 4.6-16.2 [facility] Comment on above: Performed By: #### 7 196759, 8826447712, 6521922, 89079916, 6050712, 2281237, 1207207525, 2867873, 3295970281 ####[facility] (DEFAULT)[address] [place] [address] Head or Brain w/o Contras ton [...] pm Technologist: Erwin CHAUDHARI Normal [facility] D-Dimeron 12-21-2021 D-Dimer 0.49 mg/L FEU Normal 0.19-0.50 [facility] Comment on above: Result Comment: The [...] Liver cirrhosis ? Performed By: #### 7 769248, 3741802595, 3502137, 71913188, 7785439, 4837453, 4538444915, 5171696, 9328834503 ####[facility] (DEFAULT)[address] [place] [address] ED Note - Otheron 12-21-2021 ED Note - Other Neurology called back from [facility], on phone with Mariajose LLANES [Electronically Signed on: 12/21/2021 21:29 EDT] Nadya Garcia [Verified on: 12/21/2021 21:29 EDT] Nadya Garcia [facility] ED Note - Other paging Neurology through [facility] for consult for Mariajose LLANES [Electronically Signed on: 12/21/2021 21:12 EDT] Nadya Garcia [Verified on: 12/21/2021 21:12 EDT] Nadya Garcia [facility] ED Note - Physicianon 2021 ED Note [...] - pharynx pink and moist. NECK: -Supple ([id number]): non-tender. CARD: -Rate and rhythm: Regular -Edema: [...] (more content not included)... Normal [facility] ED Note-Nursingon 12-21-2021 ED Note-Nursing Batch Heat Treat Operator assumed care for pt at 2124. Pt had fluids running at that time. Will continue to give the rest of the liter per VO from MARIO ALBERTO. MARIO ALBERTO also stated that after speaking with neuro, pt is to be transferred to [facility] for MRI and further evaluation. Normal [facility] Ethanol.on 12-21-2021 Ethanol Level 9.0 mg/dL High 0.0-5.0 [facility] Comment on above: Performed By: #### 2 [id number] #### [facility] (DEFAULT) [address] [place] [address] 39803 Extra Morgan 12-21-2021 Tube Collected Yes Invalid Interpretation Code [facility] Comment on above: Performed By: #### 2 686914, [id number] #### [facility] (DEFAULT) [address] [place] [address] 09283 Extra Redon 12-21-2021 Tube Collected Yes Invalid Interpretation Code [facility] Comment on above: Performed By: #### 7 642217, 4016809989, 4333979, 11411371, 8556325, 1224921, 0959900691, 8667139, 7885529126 #### [facility] (DEFAULT) [address] [place] [address] 48467 Magnesiumon 12-21-2021 Magnesium [Mass/Vol] 2.02 mg/dL Normal 1.80-2.50 [facility] Comment on above: Performed By: #### 7 360354, 8371447941, 0983144, 07224698, 4065866, 9071559, 6064415008, 2714493, 2685095792 ####[facility] (DEFAULT)[address] [place] [address] 95847 PTon 12-21-2021 INR Coag (PPP) [Relative time] 0.94 {INR} Normal 0.91-1.11 [facility] Comment on above: Performed By: #### 7 413565, 1963240305, 9311265, 28201807, 2924744, 4218871, 5080502336, 9755279, 0944004085 ####[facility] (DEFAULT)[address] [place] [address] PT 10.2 second(s) Normal 9.7-11.8 [facility] Comment on above: Performed By: #### 7 010126, 2679305227, 2689176, 92919067, 4338226, 1714547, 2143469245, 9938002, 9281326261 ####[facility] (DEFAULT)[address] [place] [address] 59877 PTTon 12-21-2021 PTT 26 second(s) Normal 25-35 [facility] Comment on above: Performed By: #### 7 630526, 4665000325, 5925159, 31980355, 0349468, 2241371, 3424149307, 3523947, 1302986807 ####[facility] (DEFAULT)[address] [place] [address] 37590 Test Urine 1on U Preg Negative Normal [facility] Comment on above: Performed By: #### 1 [id number], [id number] ####[facility] (DEFAULT)[address] [place] [address] 24975 U Preg Internal Control Pass Normal [facility] Comment on above: Performed By: #### 1 [id number], [id number] ####[facility] (DEFAULT)[address] [place] [address] 16834 Salicylateon 12-21-2021 Salicylate Lvl <4.0 Normal 0.0-30.0 [facility] Comment on above: Result Comment: Sali cylate ranges less than 30 mg/dL are considered to be therapeutic. Levels greater than 30 mg/dL are considered toxic and levels greater than 60 mg/dL may be lethal. Performed By: #### 2 297212, [id number] #### [facility] (DEFAULT) [address] [place], [place] [address] TnI HSon 12-21-2021 Troponin I High Sensitivity <2 Normal <=15 [facility] Comment on above: Result Comment: Male Baseline Delta 1Hr (Note pg/mL=ng/L) <20pg/mL 50-60% >20pg/mL 20% Female Baseline Delta 1Hr <15pg/mL 50-60% >15pg/mL 20% Other Baseline Delta 1Hr <18ng/mL 50-60% >18ng/mL 20% ([place] [employer] Guidelines February 2018) Performed By: #### 7 684674, 5968667129, 3517535, 58229898, 8676470, 4884936, 0440273755, 8466215, 0523637038 ####[facility] (DEFAULT)[address] [place] [address] 18727 Triage Panel 1212-21-2021 Triage Internal Control Pass Normal [facility] Comment on above: Performed By: #### 1 [id number] ####[facility] (DEFAULT)[address] [place] [address] 45264 U Amph Scr Negative Normal [facility] Comment on above: Performed By: #### 1 [id number] ####[facility] (DEFAULT)[address] [place] [address] 60515 U Vanesa Scr Negative Normal [facility] Comment on above: Performed By: #### 1 [id number] ####[facility] (DEFAULT)[address] [place] [address] 91824 U Benzodia Scr Negative [facility] Comment on above: Performed By: #### 1 [id number] ####[facility] (DEFAULT)[address] [place] [address] 16441 U Cannab Scrn Negative [facility] Comment on above: Performed By: #### 1 [id number] ####[facility] (DEFAULT)[address] [place] [address] 49300 U Cocaine Scr Negative [facility] Comment on above: Performed By: #### 1 [id number] ####[facility] (DEFAULT)[address] [place] [address] 28345 U Methadone Scr Negative [facility] Comment on above: Performed By: #### 1 [id number] ####[facility] (DEFAULT)[address] [place] [address] 84360 U Methamp Scrn Negative [facility] Comment on above: Performed By: #### 1 [id number] ####[facility] (DEFAULT)[address] [place] [address] 39440 U Opiate Scr Negative [facility] Comment on above: Performed By: #### 1 [id number] ####[facility] (DEFAULT)[address] [place] [address] 37158 U Oxycod Scr Negative [facility] Comment on above: Performed By: #### 1 [id number] ####[facility] (DEFAULT)[address] [place] [address] 04735 U Phencyclidine Scr Negative Normal [facility] Comment on above: Performed By: #### 1 [id number] ####[facility] (DEFAULT)[address] [place] [address] 44233 U Propoxyphene Scr Negative [facility] Comment on above: Performed By: #### 1 [id number] ####[facility] (DEFAULT)[address] [place] [address] 35632 U Tricyclic Antidepress Scr Negative [facility] Comment on above: Result Comment: Resu lts [...] PPX Propoxyphene (Norpropoxyphene): 300 ng/mL THC Cannabinoids (56-eqv-8-carboxy- -THC): 50 ng/mL TCA Tricyclic-Antidepressants (Desipramine): 300 ng/mL Performed By: #### 1 [id number] ####[facility] (DEFAULT)[address] [place] [address] Urine Source Clean Catch [facility] Comment on above: Performed By: #### 1 [id number] ####[facility] (DEFAULT)[address] [place] [address] UA w Culture if Ind Standard on 12-21-2021 Color (U) Yellow Normal [facility] Comment on above: Performed By: #### 1 [id number], [id number] ####[facility] (DEFAULT)[address] [place] [address] Culture? Not Indicated Invalid Interpretation Code [facility] Comment on above: Result Comment: Resu lt created by rule GL_MAGR_ADD_UA_CULT1 Performed By: #### 1 [id number], [id number] ####[facility] (DEFAULT)[address] [place] [address] Glucose (U) [Mass/Vol] Negative Normal [facility] Comment on above: Performed By: #### 1 [id number], [id number] ####[facility] (DEFAULT)[address] [place] [address] 39235 Ketones Ql (U) Negative Normal [facility] Comment on above: Performed By: #### 1 [id number], [id number] ####[facility] (DEFAULT)[address] [place] [address] 40302 Micro? Not Indicated Invalid Interpretation Code [facility] Comment on above: Result Comment: Resu lt created by rule GL_MAGR_ADD_UA_MICRO Performed By: #### 1 [id number], [id number] ####[facility] (DEFAULT)[address] [place] [address] 76776 UA Bilirubin Negative Normal [facility] Comment on above: Performed By: #### 1 [id number], [id number] ####[facility] (DEFAULT)[address] [place] [address] 30307 UA Blood Negative Normal NEGATIVE [facility] Comment on above: Performed By: #### 1 [id number], [id number] ####[facility] (DEFAULT)[address] [place] [address] 76209 UA Clarity CLEAR Normal CLEAR [facility] Comment on above: Performed By: #### 1 [id number], [id number] ####[facility] (DEFAULT)[address] [place] [address] 94816 UA Leuk Est Negative Normal NEGATIVE [facility] Comment on above: Performed By: #### 1 [id number], [id number] ####[facility] (DEFAULT)[address] [place] [address] 66166 UA Nitrite Negative Normal NEGATIVE [facility] Comment on above: Performed By: #### 1 [id number], [id number] ####[facility] (DEFAULT)[address] [place] [address] 05025 UA pH 6.5 Normal 5-8 [facility] Comment on above: Performed By: #### 1 [id number], [id number] ####[facility] (DEFAULT)[address] [place] [address] 49337 UA Protein Negative Normal NEGATIVE [facility] Comment on above: Performed By: #### 1 [id number], [id number] ####[facility] (DEFAULT)[address] [place] [address] 96409 UA Spec Grav <=1.005 Normal 1.001-1.035 [facility] Comment on above: Performed By: #### 1 [id number], [id number] ####[facility] (DEFAULT)[address] [place] [address] 09319 UA Urobilinogen 0.2 mg/dL Normal 0.2-1.0 [facility] Comment on above: Performed By: #### 1 [id number], [id number] ####[facility] (DEFAULT)[address] [place] [address] 14198 Breakpoint UA Normal [facility] Comment on above: Performed By: #### 1 [id number], [id number] ####[facility] (DEFAULT)[address] [place] [address] 30690 Urine Source Clean Catch Normal [facility] Comment on above: Performed By: #### 1 [id number], [id number] ####[facility] (DEFAULT)[address] [place] [address] 93077 XR Chest 2 Viewson 2 XR Chest [...] 12/21/21 9:38 pm Technologist: Obed BELLE Normal [facility] CARDIAC HUMAIRA ADMITon 021 CK [Catalytic activity/Vol] 117 U/L Normal 30-135 [facility] Comment on above: Performed By: #### T JOÃO LOCK, CMP #### [facility] [address] [place], [place] [address] Nelida Lily CK.MB [Mass/Vol] 1.16 ng/mL Normal <=2.37 [facility] Comment on above: Performed By: #### T JOÃO LOCK, CMP #### [facility] [address] [place] [id number] Nelida Lily HSTROP <4.0 Normal 4.0-35.5 [facility] Comment on above: Result Comment: CUT- OFF POINTS HAVE BEEN ESTABLISHED BASED ON THE FOURTH UNIVERSAL DEFINITIONS OF MYOCARDIAL INFARCTION. THE UPPER REFERENCE LIMIT (URL) OF TROPONIN, DEFINED THE 99TH PERCENTILE OF cTnI DISTRIBUTION IN A REFERENCE POPULATION, HAS BEEN CONFIRMED THE DECISION THRESHOLD FOR [place] DIAGNOSIS. Performed By: #### T JOÃO LOCK, CMP #### [facility] [address] [place] [address] Nelida Lily NGA 41.0 ng/mL Normal <=61.5 [facility] Comment on above: Performed By: #### T JOÃO LOCK, CMP #### [facility] [address] [place], [place] [id number] Nelida Lily CBC AUTO DIFFon 02-23-2021 BASO # 0.1 103/ul Normal 0.0-0.1 [facility] Comment on above: Performed By: #### C BC #### [facility] [address] [place], [place] [address] Nelida Lily Basophils/100 WBC (Bld) 1.0 % Normal 0.2-2.0 [facility] Comment on above: Performed By: #### C BC #### [facility] [address] [place], [place] [address] Nelida Lily EO # 0.1 103/ul Normal 0.0-0.7 [facility] Comment on above: Performed By: #### C BC #### [facility] [address] [place], [place] [address] Nelida Lily Eosinophils/100 WBC (Bld) 2.2 % Normal 0.9-7.0 [facility] Comment on above: Performed By: #### C BC #### [facility] [address] [place] [address] Nelida Lily Erythrocyte distribution width (RBC) [Ratio] 14.2 % Normal 11.0-15.0 [facility] Comment on above: Performed By: #### C BC #### [facility] [address] [place] [address] Nelida Lily Hematocrit (Bld) [Volume fraction] 40.6 % Normal 36.0-48.0 [facility] Comment on above: Performed By: #### C BC #### [facility] [address] [place] [address] Nelida Lily Hemoglobin (Bld) [Mass/Vol] 13.3 g/dL Normal 12.0-16.0 [facility] Comment on above: Performed By: #### C BC #### [facility] [address] [place] [address] Nelida Lily IG # 0.02 10e3/ul Normal 0.00-0.03 [facility] Comment on above: Performed By: #### C BC #### [facility] [address] [place] [address] Nelida Lily IG % 0.4 % Normal 0.0-0.5 [facility] Comment on above: Performed By: #### C BC #### [facility] [address] [place] [address] Nelida Lily LYMPH # 1.7 103/ul Normal 1.2-3.8 [facility] Comment on above: Performed By: #### C BC #### [facility] [address] [place] [address] Nelida Lily Lymphocytes/100 WBC (Bld) 34.6 % Normal 20.5-60.0 [facility] Comment on above: Performed By: #### C BC #### [facility] [address] [place] [address] Nelida Lily MANUAL DIFF REQ NO Normal [facility] Comment on above: Performed By: #### C BC #### [facility] [address] [place] [address] Nelida Lily MCH (RBC) [Entitic mass] 31.5 pg Normal 26.7-34.0 [facility] Comment on above: Performed By: #### C BC #### [facility] [address] [place] [address] Nelidajose Bautista MCHC (RBC) [Mass/Vol] 32.8 g/dL Normal 29.9-35.2 [facility] Comment on above: Performed By: #### C BC #### [facility] [address] [place] [address] Nelidajose Bautista MCV (RBC) [Entitic vol] 96.2 fL Normal 81.0-99.0 [facility] Comment on above: Performed By: #### C BC #### [facility] [address] [place] [address] Nelida Kimbleen MONO # 0.4 103/ul Normal 0.3-0.8 [facility] Comment on above: Performed By: #### C BC #### [facility] [address] [place] [address] Nelida Lily Monocytes/100 WBC (Bld) 7.1 % Normal 1.7-12.0 [facility] Comment on above: Performed By: #### C BC #### [facility] [address] [place] [address] Nelidajose Kimbleen NEUT # 2.7 103/ul Normal 1.4-6.5 [facility] Comment on above: Performed By: #### C BC #### [facility] [address] [place] [address] Nelida Lily Neutrophils/100 WBC (Bld) 54.7 % Normal 43.0-75.0 [facility] Comment on above: Performed By: #### C BC #### [facility] [address] [place], [place] [address] Nelida Lily Platelet mean volume (Bld) [Entitic vol] 9.8 fL Normal 9.5-13.5 [facility] Comment on above: Performed By: #### C BC #### [facility] [address] [place], [place] [address] Nelida Lily PLT 320 103/ul Normal 150-450 [facility] Comment on above: Performed By: #### C BC #### [facility] [address] [place] [address] Nelida Bautista RBC 4.22 106/ul Normal 4.20-5.40 [facility] Comment on above: Performed By: #### C BC #### [facility] [address] [place] [address] Nelida Kimbleen WBC 4.9 103/ul Normal 4.0-11.0 [facility] Comment on above: Performed By: #### C BC #### [facility] [address] [place] [id number] [address] STROKE HEAD WOon 02-24-20 [...] JANESSA SKINNER Date: 2021-02-23 13:52 Normal [facility] ER URINE PROFILEon Bilirubin Ql (U) Negative Normal NEGATIVE [facility] Comment on above: Performed By: #### E RUR #### [facility] [address] [place] [address] Nelida Bautista Clarity (U) CLEAR Normal CLEAR [facility] Comment on above: Performed By: #### E RUR #### [facility] [address] [place], [place] [address] Nelida Lily Color (U) LT. YELLOW Normal YELLOW [facility] Comment on above: Performed By: #### E RUR #### [facility] [address] [place], [place] [phone] Nelida Lily ERUAHD A micrscopic examination will be performed if indicated. Normal [facility] Comment on above: Performed By: #### E RUR #### [facility] [address] [place] [address] Nelida Lily Glucose Ql (U) Negative Normal NEGATIVE [facility] Comment on above: Performed By: #### E RUR #### [facility] [address] [place] [address] Nelida Lily Hemoglobin Ql (U) Negative Normal NEGATIVE [facility] Comment on above: Performed By: #### E RUR #### [facility] [address] [place] [address] Nelida Lily Ketones Ql (U) Negative Normal NEGATIVE [facility] Comment on above: Performed By: #### E RUR #### [facility] [address] [place] [address] Nelida Lily LEUKOCYTES Negative Normal NEGATIVE [facility] Comment on above: Performed By: #### E RUR #### [facility] [address] [place] [address] Nelida Lily Nitrite Ql (U) Negative Normal NEGATIVE [facility] Comment on above: Performed By: #### E RUR #### [facility] [address] [place] [address] Nelida Lily pH (U) 8.0 [pH] Normal 5-9 [facility] Comment on above: Performed By: #### E RUR #### [facility] [address] [place], [place] [id number] Nelida Lily SPEC GRAVITY 1.020 Normal 1.005-<=1.025 [facility] Comment on above: Performed By: #### E RUR #### [facility] [address] [place] [address] Nelida Lily UA PROTEIN Negative Normal NEGATIVE/ TRACE [facility] Comment on above: Performed By: #### E RUR #### [facility] [address] [place], [place] [id number] Nelida Bautista UR MICRO IND NOT INDICATED Normal [facility] Comment on above: Performed By: #### E RUR #### [facility] [address] [id number] Nelidajose Bautista Urobilinogen Qn (U) 0.2 {Jose Carlos'U}/dL Normal 0.2 - 1. 0 [facility] Comment on above: Performed By: #### E RUR #### [facility] [address] [place], [place] [id number] Nelida Bautista POINT OF CARE GLUCOSEon 01-27 Glucose [Mass/Vol] 95 mg/dL Normal 74-106 [facility] Comment on above: Performed By: #### P OCGLUC #### [facility] [address] [place], [place] [id number] Nelida Bautista PREG HCG QUALon 02-23-2021 , QUAL Negative Normal NEGATIVE [facility] Comment on above: Performed By: #### P REG #### [facility] [address] [place], [place] [id number] Nelida Bautista PROF 14(COMP METB)on 021 Albumin [Mass/Vol] 3.6 g/dL Normal 3.5-5.0 [facility] Comment on above: Performed By: #### T HAYDE CMADM, CMP #### [facility] [address] [place], [place] [id number] Nelida Bautista Albumin/Globulin [Mass ratio] 0.9 {ratio} Normal [facility] Comment on above: Performed By: #### T HAYDE CMADM, CMP #### [facility] [address] [place], [place] [id number] Nelida Lily ALP [Catalytic activity/Vol] 103 U/L Normal 38-126 [facility] Comment on above: Performed By: #### T HAYDE CMADM, CMP #### [facility] [address] [place], [place] [phone] Nelida Lily ALT [Catalytic activity/Vol] 35 U/L Normal 9-52 [facility] Comment on above: Performed By: #### T JOÃO LOCK, CMP #### [facility] [address] [address] Nelida Lily Anion gap [Moles/Vol] 13.3 mmol/L Normal [facility] Comment on above: Performed By: #### T JOÃO LOCK, CMP #### [facility] [address] [address] Nelida Lily AST [Catalytic activity/Vol] 28 U/L Normal 14-36 [facility] Comment on above: Performed By: #### T JOÃO LOCK, CMP #### [facility] [address] [address] Nelida Lily Bilirubin [Mass/Vol] 0.2 mg/dL Normal 0.2-1.3 [facility] Comment on above: Performed By: #### T JOÃO LOCK, CMP #### [facility] [address] [place] [address] Nelida Lily Calcium [Mass/Vol] 9.0 mg/dL Normal 8.4-10.2 [facility] Comment on above: Performed By: #### T JOÃO LOCK, CMP #### [facility] [address] [place] [address] Nelida Lily Chloride [Moles/Vol] 108 mmol/L Critically high 98-107 [facility] Comment on above: Performed By: #### T JOÃO LOCK, CMP #### [facility] [address] [place] [address] Nelida Lily CO2 [Moles/Vol] 25.8 mmol/L Normal 22.0-30.0 [facility] Comment on above: Performed By: #### T JOÃO LOCK, CMP #### [facility] [address] [place] [address] Nelida Lily Creatinine [Mass/Vol] 1.00 mg/dL Normal 0.52-1.04 [facility] Comment on above: Performed By: #### T JOÃO LOCK, CMP #### [facility] [address] [place], [place] [address] Nelida Lily EGFR-AF INDIAN >60 Normal >=60 [facility] Comment on above: Performed By: #### T JOÃO LOCK, CMP #### [facility] [address] [id number] Nelida Lily EGFR-NON AF INDIAN >60 Normal >=60 [facility] Comment on above: Performed By: #### T JOÃO LOCK, CMP #### [facility] [address] [address] Nelida Lily Globulin (S) [Mass/Vol] 4.2 g/dL Normal [facility] Comment on above: Performed By: #### T JOÃO LOCK, CMP #### [facility] [address] [place] [address] Nelida Lily Glucose [Mass/Vol] 95 mg/dL Normal 74-106 [facility] Comment on above: Performed By: #### T JOÃO LOCK, CMP #### [facility] [address] [place] [address] Nelida Lily Potassium [Moles/Vol] 4.1 mmol/L Normal 3.4-5.0 [facility] Comment on above: Performed By: #### T JOÃO LOCK, CMP #### [facility] [address] [place] [address] Nelida Lily Protein [Mass/Vol] 7.8 g/dL Normal 6.1-8.2 [facility] Comment on above: Performed By: #### T JOÃO LOCK, CMP #### [facility] [address] [place] [address] Nelida Lily Sodium [Moles/Vol] 143 mmol/L Normal 137-145 [facility] Comment on above: Performed By: #### T JOÃO LOCK, CMP #### [facility] [address] [place] [address] Nelida Lily Urea nitrogen [Mass/Vol] 10.0 mg/dL Normal 7.0-17.0 [facility] Comment on above: Performed By: #### T JOÃO LOCK, CMP #### [facility] [address] [address] Nelida Bautista Urea nitrogen/Creatinine [Mass ratio] 10.0 mg/mg Normal [facility] Comment on above: Performed By: #### T JOÃO LOCK, CMP #### [facility] [address] [id number] Nelida Bautista TSHon 02-23-2021 TSH 1.157 uIU/mL Normal 0.470-4.680 [facility] Comment on above: Performed By: #### T JOÃO LOCK, CMP #### [facility] [address] [address] Nelida Bautista TSH RANGE SEE BELOW Normal [facility] Comment on above: Result Comment: <0.3 4 UIU/ml HYPERTHYROID 0.34-5.60 UIU/ml EUTHYROID >5.60 UIU/ml HYPOTHYROID Performed By: #### T JOÃO LOCK, CMP #### [facility] [address] [id number] Nelida Bautista XR CHEST 1 Von 02-23-2021 [...] by: JANESSA SKINNER Date: 2021-02-23 13:53 Normal [facility] Encounters Encounter Date Encounter Type Care [...] Start: 12-22-2021 End: 12-22-2021 ambulatory JARVIS RODRIGUEZ [facility] Start: 02-23-2021 End: 02-23-[address] DOCTOR GOODSON Facility: Payers Date Payer Category Payer Unknown [id number] 1985 Unknown [id number] 2.16.84 [id number] 1985 Unknown [id number] 2.16.84 [id number] 1987 Unknown [id number] 2.16.84 [id number] 1987 Unknown [id number] 2.16.84 [id number] 1987 Unknown [id number] 2.16.84 [id number] 1987 Unknown [id number] 2.16.84 [id number] 1987 Unknown [id number] 2.16.84 [id number] 1987 Unknown [id number] 2.16.84 [id number] 1987 Unknown [id number] 2.16.84 [id number] 1959 Unknown [id number] Summary Purpose Family History No Family History Records FoundNo Family History Records FoundNo Family History Records FoundNo Family History Records Found Advance Directives No Advanced Directives Records FoundNo Advanced Directives Records FoundNo Advanced Directives Records FoundNo Advanced Directives Records Found Additional Source Comments INFORMATION SOURCE (unrecogn ized section and content) DATE CREATED AUTHOR 02/28/2021 [facility] DATE CREATED AUTHOR AUTHOR'S ORGANIZ ATION 12/24/2021 [facility] DATE CREATED AUTHOR AUTHOR'S ORGANIZ ATION 01/01/2022 [facility] DATE CREATED AUTHOR AUTHOR'S ORGANIZ ATION 01/27/2024 [facility] FOR RECORDS PERTAINING TO PATIENTS WHO ARE [...] ON THE PRIMARY CLINICAL RECORDS. [facility] [employer] [facility]. provides no warranty or guarantee of the accuracy or completeness of information in this document.
[2024-02-17 10:08] VITALS: BP 131/74; PULSE 93
--- NOTE | 2024-02-17 10:27 | US_ITS ---
[address] [address] Patient Name: LOCO HICKS MRN: [id number] date: 1985 Sex: F Assigned Patient Location: [facility] Current Patient Location: Accession/Order Number: [id number] Exam Date: 02/17/2024 10:30 Report Date: 02/17/2024 11:20 At the request of: MARYANN VIZCARRA Procedure: US OB BPP w non-stress EXAMINATION: US OB BPP w non-stress HISTORY:Gestational diabetes mellitus COMPARISON: Ultrasound OB biophysical 02/10/2024 TECHNIQUE: Ultrasound biophysical profile was performed in the radiology department. BREATHING MOVEMENTS: 2 GROSS BODY MOVEMENTS: 2 TONE: 2 QUALITATIVE AMNIOTIC FLUID VOLUME: 2 PRESENTATION: CEPHALIC HEART RATE: 142.11 bpm AMNIOTIC FLUID VOLUME: 16.86 cm GESTATIONAL AGE: 37 weeks 2 days US/US OB BPP w non-stress IMPRESSION: Total biophysical profile score: 8 Electronically authenticated by: JANESSA SKINNER Date: 02/17/2024 11:20
== END 2024-02-17 10:45 | disposition home or self-care (01) ==
LOC: US 07:02 → FBC 10:03
PROVIDERS: Visit Provider Obstetrics & Gynecology
DX: O24.119 Pre-existing type 2 diabetes mellitus, in pregnancy, unspecified trimester (principal); Z3A.37 37 weeks gestation of pregnancy
CPT/HCPCS: 76818

== ENCOUNTER 2024-02-20 07:34 | Outpatient (OUT) | payer BC, SELFPAY ==
--- OUTSIDE RECORDS SUMMARY | 2024-02-20 07:36 | XMS_ITS | CCD ---
Author Organization [facility] Providers Care Product Technician Name Role Phone NAINAC, DR OLSON Primary Care Unavailable PAY, DR OLSEN Admitting Unavailable PAY, DR OLSEN Attending Unavailable ZIEBER, DR JANESSA Davila Consulting Unavailable PAY, DR OLSEN Consulting Unavailable SCHLACHTER, JARVIS Referring Unavailable SCHJENIFERCHTNEREIDA, JARVIS Primary Care Unavailable CHODISGEE, SUBRAHMANYAM Consulting Unavail able CADEN CERNA Attending Unavailable CADEN CERNA Admitting Unavailable DAVIN GAGE Consulting Unavailable ZACKERY, MARYANN Attending Unavailable NEELAM, SHAWNA Attending Unavailable ZACKERY, MARYANN Attending Unavailable NEELAMSHAWNA Attending Unavailable ZACKERY, MARYANN Attending Unavailable ZACKERY, MARYANN Attending Unavailable ZACKERY, MARYANN Attending Unavailable ZACKERY, MARYANN Attending Unavailable NEELAM, SHAWNA Attending Unavailable Problems Problem Classification Problem Date [...] Coding Summaryon 12-31-2021 Coding Summary HTMLBase 64 QvyjysjzVGy0nKy+PGhl YWQ+ON2KAWWsQ01kmGWx kB8SJ4fVRD4SJGCBCVXJ CZ6HTV9xaMK5CHxfM6Wp biAv JsunlJZkKN25GNw7MIU7 uEhlJJbkcS2ulSBcC9o4 OrBlHD60bK99PJcjZSXs CqG4YiVsvdagzTMj P4hbYaZifCEzIvl+PHRh YmxlIHdpZHRoPScxMDAl VhStsFinUB6aRj2dLGMd LWNvbGxhcHNlOiBj c0pqHYKkUPozXU0qaTcv B4BzoFX9HUHcv4r2Qu84 dHI+UJGiVCO1yJiyDOza z072OiZgg5meXIK5 sTFwVGkpLWE3C49fy7W8 UNNfWHBaQDI0rEJ6uW2m qMwrmrquK1QjuZGePxG3 SPT8iMSaiG6olDah cjajrU4yEvg+M41HPM6I QIPKYO9YDxf4P7LjDfmx dHI+TN83AZVnAM49wMUt sTIbk2gllGd4BqSk QZXmPCK3tUltBPpzu0As OTYbS71yvNQeq9W4RWKo aAiqvKWmOyOqlQZ3pM7z UEuwdbgdd0tegtsx Bkusv5mxxx51nW10M67s QNytIMEtBNV8ZUEsHOBs hLtgkk1zoN7sGr1+IDxj d5dvf9ijvTa6DtPn JRMsniLxvEihOLZ1z6Vv Fj88D6BniNucn3JjJbt9 xc20aVDou1D3xKT8OFwj MVAeaL1cRSmwXrN5 KHDbEwDhkH25dUUsUKpj Av5hqJkqcGxlKB6cWGVh caiqYRWnyQ5zQGCzrHCb gBbfEX1jQAAzvdun x478XyBhXYX5LWKqfTCr F5JowL2lPmZcPIVkRGCr R0ZjwUOkFHxhR477OIyx YmQ2XMLkuuGzB5Rk WOUfvSrtNaI0e1Q6Qd7L x2ErigrgZNN4RCgjCXZ8 IqI6BqJnTtZ9R9CaQqa0 QIOrpUkyFO7lF6Zm QPPzhdtdojtsnGJ9BRWs OJTvuM73oTFjPUesPd5n s0R6f639FMBhASCiwL34 Wa0opZkwUDAjbGRX yO6pmlvqu3qjfekcNsDo SGObIWm9WDn5VIXxdNhg BkZfRMV5AbO7RVQ5lEKm gD2hmAwafhmdlQ1v Oyc+O48pdE0iYMR3IWS6 ngbpLAGcepNzLS65UL65 C3PoHkqumSYquLL+PGRp coKfpDtyOS2mCxMg x6kjf4UrMWlqU6AqZRIu HCekXwy2QQKoFNG3rEB2 rY5iMJHhGVvnj9X9wDB4 M5PgqlSlgp4rc6no ZSBxOXdwN37xjPVza0R9 GUXuxMF6BLVgmBflRkOz mZ19Xei+OPQdyCtmk8Ru Bsrgr4jyz4yyeZi6 IjMwJSIgdmFsaWduPSJ0 n9EuOt51Y50nZQqfBOMp MMZvKRQjSBYtzJywuq2d rP6kQv5+PGNvbCB3 fKQ4hK5qQRJnLuA2HCph G635DaGumIWaTrpin4yf l3aneZe9ZrWsSZNnhwVt yMuvDRO4w1BnOi11 S54cXPkzGUOrDZGtWZWh IGQpdTrams9laS0vEe8+ WS8km8isre25yR67bUN+ AVUiRFX2xYefAZht DPNiuM9aEGktGwJ2BUZb InUgxH72pVAcQRpxCe0c cKfxiYjnWF9qAAQbffkx s396EeHcz5dqIVQn jJDbJLpyIFT6I18az2F4 QVPiOVJdRYM7eMZ2oJ7u bGlnbjogbGVmdDsgdmVy eRudLVoxTOboS196 IHRvcDsnPlBhdGllbnQg AwGjREi7Q0LkMpt6ITCb iVxjHG0cpWOaKCzbUs4v gFpetTokKN3hFOKu nlgiz983SyKgx6gfQCVf lMHjBGhuEAE2J52db5E0 EFCpMBTkYCI3vWY9hG0v bGlnbjogbGVmdDsg xyNluZulMUdkBKsxA406 IHRvcDsnPkJpcnRoIERh wWV3SZ37VW13fTPbi5M5 sZY7M5UmQGEzmtxv fxswiVC5VDVyVAKvbP32 En2xqMpsVe2qOHZnZOF8 MXPfsBDaY6QxtB8xAkBf DGEmXOSxR4YqsQDq QMskN842EKrhUgU2VZUx ynNfN6UyRMPihEbxYuU9 o3T9Es4FD7P6OO42UU18 iSXcs0L7kZR0K9Gq GLDsclwzbfpsfXL7VUSt YWGruT06Mq3ptBszUc3g NUQlFSR0CZPirQRjJ9Kb lM0rZbDeBHImDDLf S7DdjUAfIOadZ215JUkh NsQ1UOHbepTuF2KaGAVy xWjeFzW9k7S4Bq3DNBl1 IX14YS33kEZev7J0 tUK3M9ZqQPKubacmfcew bIC4CGQbVBAiyV73Nm7t oQxwLy5fGVYkSXD8PFZe qRDdP6TpwO5kMwRr HCPcGJOnK4YooVInHMuh O119ZFgjPkG5EQHfzlSt R6XvPTRadJemMbV4p3I4 Gi6IXGPxAM54ICG3 bZR4FD42ZA13M9AgOfip dGFibGU+PHRhYmxlIHdp ZHRoPScxMDAlJyBzdHls ZS1qJz3jNPUwCQNp tDkspKOeGuZhr5xsGULm EUwoXP9esHwfR4CcyLI4 HKGyr3f0Xk91L58wB4Lo dXA+FHUuoWV6zFJ8 lJ5wCsEtBtM9XFseS483 TkHahGIpWohdn4dvo6gl mZk8JsJ7NHKedjBopMpr TRM2k4DlEg36R94g IHdpZHRoPSIxNSUiIHZh nGvjow6zsX4nSu4+PGNv mVM0jND4aH9sNpGzVxN3 BWevJ252ZlQwdCXy Zkwtj4ahm6bweYo6MxCx ODMmstHykXmiPNP5t8Et Vp60T0EbtEbcr2LfGvv4 bp52gENoa8Y2wMA6 F1PqSFYvxbgedMByyJbj NB1jRRFbhvjeWQBsrS7f YULaY0m7TmZnDpR3DQag H7KeecE6NAAmfUKm RSydYMB6I60hr0R6POFu MSCuEVN3vJJ8gU2xbCsp bjogbGVmdDsgdmVydGlj FMncKZosW807VIAt jZjjCJDmnM0aKXRzpPSt iAwfGO1eLLIexjfpPekH MLZTGWPAXPERRaTCIR65 XF08qNRpq6G8eHW6 G2IiFQHjpzlrmngyyVS4 NQRjSEPflJ08eQLrMPgc Mn5cc4D1d825XMYtNLEc fW02Hx0mxWhzBJRb rRLIbP9mpxjge3rjfdqa EvZzRVBpHGr0MZu2OWIr eFpsBvKnHFR4TdX2YKR7 jWSssD4jmHbfuanu mX6lMuq+MDEvMDgvMTk4 ODwvdGQ+ZRItMLN7rOic QSmiHTVuqS2cQVVjJ7b3 GkCpJyB6MGtqF8Vr UYLwoxbkCo94pD0nSsUe JwU5JDfjU0KlviD6IQWg xDCnEGofUJP0M16uj4N7 DBYaVYFyXTB1sPQ6 yQ4yrPbpzxxahSRitHjq yuEezKpbSRygNOnbX713 HBUmfXkxCrR7ACteWPLe OO24EH66nYPbc0E6 hBX4U9VzOTCeixgdstgo zOJ2OSCcHAMlzK67vJEb IQcoEi4vo8S1h643YXJm DAAjhE55Kg3wwAwd ZWOtxOSBgL4exfrpi1rh xwbrWpEcUEEhYUh3ZTg9 RMBmuAuyRqLxXDU0FvO8 REH5eJNloM8vyZvq qgpipG4uIre+RkVNQUxF BF73FL37oZSgh0S8fVO8 L1AtVVEmanaygbzgmYU3 LSMeCXAbnI09dAJl ZKncJc1bt8S9d912GHLg ZJJfxM34Xo2qjYywJCOu jUIUyD4ygicpt8pqnczn RwHoVVYvJOq7EKo3 RGPyrWazLpWhQKH4IoP8 KOJ3eQIxtF6xmXgiirwr oH8oLge+X8H6V8QuFpcc dHI+GX22RVQhUH34 pIQzmBYtu4qvgBj3PhLq OLCnKKX3bEblRLllz2Fz KVOsE49ieDXwl3A9NSYi bGxhcHNlOyBlbXB0 tZ4nAKoedhzlb8gvhvny Trtuv9oowd17hE03M76d IHdpZHRoPSIzMCUiIHZh gHycxq5mcS8iTn1+ AVYsxKO0xTH2hD8mZoQz UmK2HNleM479UbUsrHIe Vkzen2omg4aipAg9EqIe JSIgdmFsaWduPSJ0 b4VoFu61V66bMHtiEOSq IWIuXMHcTEUizSkdry7c kB8qTl1+XI5xb7zpgm97 fJ45gXU+PHRkIHN0 yEgvZAlkRKGztO5wXXth UcP1FALjQvMjhS57xNIm EWsgTv0diWbcoMgxIH0t UANlvtlhp731VjHw o2xrEJUgjJHhGHjzTAG6 Q06ed3M8XTZvXHMmRPN7 oBF6zZ9huVtqojutaSPv dDsgdmVydGljYWwt ORzaY456LSIcmEivCrLi fTIcE2vjizETTH8oLcpa dGQ+QTCxKND9gSybTZtk UHWhyL5tYCYnD8v7 IcEnHoH5PTuaP7IkaoM2 KADewMZvPKTjmDNXcC3q hryef0aikfxmXaGxQAGr KBf7SYu5MCSdvCxw BjAuKHR4RwX5DLG0lLLg fR0hcVgmvtkllB6aQsy+ RklOOjwvdGQ+PHRkIHN0 yOjuRDsmDQTrgR9r BNIaP8v4DxBgTvD8IMpk H4MmhsF5BAXsfFSyFYBz mCMBcF2orklsc2hikord CiNhUZKfGFs3XQr6 RVIovGgzPlSkADD9CyL3 CNU2kXPbhZ7ahMggsysf qQ2bMko+TVJOOjwvdGQ+ THKzAOA4wRvwONnc JYIriF5cWHToE7z0ZvYj XrT3GDcaM0FvslF2KSLz fLFiQNCdjRSAoD3prthx d2uqvurrAyKoFQZi VJh6AGk0KEEhwVxqXaQe EFH6UbD1EVB8cSOsnJ1h gHcikezreK0pXth+UGF5 DRD0OX61CV43N9Ad PjwvdGFibGU+PHRhYmxl IHdpZHRoPScxMDAlJyBz bZkoRW6sVb1jVHLeGMFy aOktvRKnQuNsc7ze YXB (more content not included)... [facility] Coding Summary HTMLBase 64 ZapuattbKPn4qDo+PGhl YWQ+UR4DRHQcS80taGIw kE1GS9oFDP6KAMZGWSYM DI2UWN3faZX9MHljM6Wt biAv WmbetOGgXY59VAa2WUL3 jTcbHBdbdE2vqYLpH3o0 NfXrNB91rY14EPglSVIp XmF2BwBvywxyqCRn G5etYeHiwIRnNcz+PHRh YmxlIHdpZHRoPScxMDAl DkXabZsdKJ0pEm3fZSRw LWNvbGxhcHNlOiBj r4rmJVBwRUsdFE3qfUcr Q0GhiWH1ZWZni5q2Fi59 dHI+RBUbSDY6rAzjYQvq y145OmVri1gnGOR9 tROxJCmiBBG2J24tn1J2 EVWkHZOnWQJ7fMP9nE5f fVxgptnaV0CfpBMhSuT3 NYN8bZFfqH7fcBsl esfziT8cYci+U09FNT1Y TEGWRM7GShk5D8BsDdba dHI+QG26DHZfBF89fDNg vCGdc7qpjRr6BqKt AZKfLIF6fHweYAaet5Qn TKDhM71icRKbu1T6EHOd mLhuyNJdYlRhlRR2vT5y MOmqsscpo5exbbqj Adyfw6xype67hY51A52z NOyiDGMbNFP5CKZgMJIw vWlynb3auB8oAq7+IDxj e2qyn4zezVx7NhDg OYJafrLvlGxpTMI1w2Vq Dq72T6CpbXbpw9SiUtm5 rw19mESoe2Z3yCR2UCxm BTCseN9eCGhvBvE3 LFVqYzHqgK11gAXoKIfn Sn8arGxqlGjxIM2mGGGo vpaiFOXgwD5yXRMksXKa nLaqGH0eOBBnxrop i471PlRoMHA3KPVzxDCo O2CxtU8tJmFcRDAtNEMn B0BpvAOwBKmvA631YBrr ObI6GEOpdiDdW6Xi HSEzfCefFjH1u8J1Wk4K t3XjhdggJSV8JAkeXAP3 IxJ7DoGvNsO4O1IdXje1 XCNnlWgwGC8cD6Hz MDIwgjdmtucmxLX7EAXc RJFuyF67gQQcSMmzJg8y k8U1o287XSKqPYAzdU31 Us5uiQnhLKWtkOPR aZ2wjyjvj3xidaxfNcXj RYUcREq7BHt5DSGrhIik McCeIRM3XkV5AVM4pQAg yH8ogRomkjrfrO7w Oyc+R63uxJ3uGQS5SVB2 youqEBWizvZwRX71IT67 C4AwFtveyYDpsAK+PGRp reCftZhsJR0mRfPm l8kgf3BqVZamC9RrGWNj DNmuJvj6DQVlJRM0vMP2 gT2jUGJyZBdqh4Y3bGB0 Q4GrbcQtkg4cu7es OXPaDArbN97skCPzb1S8 POAgzBI9ZNXdtWgmMcVv pT04Yjl+DVGxbJoca4Ph Uavap9luy9wfeRf0 IjMwJSIgdmFsaWduPSJ0 e8FkIv53I88aUEwpZPRu ZLFaCQKxSNIxnAcuwz9e sV0lBg5+PGNvbCB3 rZV8gO5hMKYbQhH8XKqe L773HkSssAToXnysq3re q0tqmYz1KlVaJZKqjfEz hEgpXCH7l2DnRe13 Y16uKWolBSVxKTQkXMIe GWWbeYprml8qcX0oYp7+ VW8ev3ptet61kF66hYN+ NYKaVJK9tMlvLZkx STYdhF0bRFckOnR7MVDe PuHpvN59oINgYPnxHj7u oLdxpRwzVE9aCAFczbdk l407PsCeo5skRAVx kMNaIFszKJH4S04kb1O7 SDJcKWYzJFL6gXJ5jD7f bGlnbjogbGVmdDsgdmVy uUhcHWttBIqqA161 IHRvcDsnPlBhdGllbnQg FaHzJGd8M3CqXli5RUIf zNneCW0vdAXnZPqwKq1y uBmtbRvpQA0mTFUj vgvef023VoAho2auMRFl rCKbWMssEOL8V29pq4T1 QWKzFYJhVOG5zLZ4hM7b bGlnbjogbGVmdDsg hrSvdBygKNwhIQseU755 IHRvcDsnPkJpcnRoIERh bHJ5VZ76XF57uYMjn2D3 jQE5L1NfCYRampbc leumvDE8FUQpYNHpmJ93 Du1fkWqbMe0jZLQsJBR5 NOZldYBhB4QsnC5fFmZr HAGeHBFuV8GmaAVa AFfjW294DIukCaD9DFWj soDcX1KtXXLaaRrjIaO4 k5P4Gd8OM2K8NY68GM10 lBAzs8P0cTB2G8Ip CAWtgxpqxtmliHI9CTBr OFEfqA15Nm5stAfnGw5o HKIsKLE4EIWnaXMsX7Ja xN9gZwWnKECgHJUq Y4XjdEFkGGhuR328XTnm QcE5PTGcmnQqM9MvJVVr rFgdAeT8z1S5Kd1PKZh7 PO58XH91jKSxq2Z2 zBP7G4ZvHAIspipgjxsn lPD7XAHtCGFleI88Zt2d zGjmTs0pDQWdXHB0EPCc gZJmH6VplT1vPoNj GUPoTURvU3NtqRUfQAxq W350ZEwlHjJ1AFMkeiRr B4XpBCBlfFciCuR5s3R6 Io6SUJQmLI89ASV3 gIX7SW68VE05X7MtRyeb dGFibGU+PHRhYmxlIHdp ZHRoPScxMDAlJyBzdHls XI8hNr2sSMAjXCJe tEwsxWEgTsUte5zbHSLn DMcnQC4jzGeuZ0LkmJF5 VJMib7g5Eu28A37zU2Sz dXA+RYMicMU7xWJ7 hF9qBhUwPkN6DWbxU365 JvJqtKVcUgvvy0ixp2gt hYn0JtA6WFLuqpCxbBmp XOU6m7PrZe04Q52r IHdpZHRoPSIxNSUiIHZh yDlfuy1brO0aVv0+PGNv kJY6rBG6hA6gTzHkMaK7 KCuqT244KtWtlPFq Dgzmd8zmb3eojDz6BxRp ABIjffGpsEwmJQG2d9Df Sd32C0VyaPdxz4TaBat9 wi94qTHnc8Z2mJI9 H5PxQGJmiwpnpCZfuPks GK5bQEGbawfpAQVkhW6v XZDdH0q8BnEwGdC3PDdw Q5JcjtA8XMSwtIJj NAtvASW0Q25zp9G5YSAi NKLfWMT0pWK5aK4snLbr bjogbGVmdDsgdmVydGlj PEggKVkcN640EHEu bIosXHIbpO7xALChbGRk sTtqEX6sIMQscktoRnwR FXUXZYMYKRDLKgGHZG69 LO52wWItz8H9pOS2 J6VlDWWyoittvxyqtUS2 PRQyPRPgwF15jUGeHKmh Mo2ui9G7g864ZBHyTDSe xG90Yw3irZyvODJh gQEZpV4bsjufd1fkatxd FwXfRPMcOFl1YSu6EDJk xUmdVtRjGBF1RlG1CVN5 tLExeV2blXwqjziv mH3uHqx+MDEvMDgvMTk4 ODwvdGQ+QWHcZZI2yIcu OSgiYGEtvH6dHARnI4b9 KbBxGsW9XIcbF2Zi NTJzlaeoLu75eX6bRgMj WwF0ORfkI2ZemkK5UVKb uDXrYFbtIIW4F29hj4O8 EQNaKCKiLPL1aDC7 aX5tzZeloksghSEbqZld myQdzJvjFXniLQqeS812 BUCijUfoAzQ4VJkxLZJj TU00NH73jXSmw6S9 uCB3Y5EaFQZxyumrtqva wRE9DRCuEWIjiU66qYTu WAbcAn3nt3Q8b590HFXq YZAhtR14Lz1oiZpi BUXntYNAvL0xdllxw3rt pwfwBzIlCGFeEWh5RUm0 OSSdtUfxUtDkZNS1YvN5 QQI5gGDlwG1wjQyn eadfuC6xUzp+RkVNQUxF OB78DS91kJUuw8O3bJD1 Q4PwXWQgzxdjkavroNF5 FKOdDIJrpG83oNRv ASgxEx5em5X8f025LCVp PJKhnB26Mp2zcVisZVBt tZZKmK8wrjksl9zowgta AePwCOKvDBw6EVu0 FVXpdLgvRfLwQWL9CaI2 NRS5yMOiqG9kwNrxdhnm lW0sEok+WO5prffczgI9 OI93IH93R6JkVdmy dGFibGU+PHRhYmxlIHdp ZHRoPScxMDAlJyBzdHls QI9cNe1qXYCbYDWceNos iJGkCdRib4scZDVe LDnrVG4fzBwvS1QhdXQ6 USNny5d8Vp07M41lQ9Ss dXA+GVIuxUE2lRE0rY3x ToUzFbW6QHchF933 PuZiuLMyHrmoy0gxo2db oWb8VsObGKPflbJysWme TJG7x5HtKp60P74cBUmw ZHRoPSIyMCUiIHZh pBglvb9rsX8qTf2+PGNv cJQ1pIK0fJ0iGeHySoN4 MKtbF433RhMmmFJdSpqn T89fC8DgnXW+PHRy Htx7VSNvmPukZU5cmAJz MXeeVj6lCCH5MlSdVvFr TZtwP0UjFCEmpyavhhvt cHC5VASlMUIuhO23 Qc9izQgcJw9eIYJbKDB4 BLVpsYDeP1RhzP7tVtIc WSIaZPJaG5SfrFWkEZmp B279KVudBrI4HTKc wqAhV7ZgMIDexPqsKqM0 c0H9Vy9BfAppqEEdCH8x ViPdCIz2R6PsQma8FDFd cXlxVH0aoASjNVcf Zj0wuLphrSsfTK7eKBTe ipfco219GoCvy9kmTGOh yWVyRSznBYF2N43sn8E5 VJHfRCJqIJD5eIE5 hW4wtKtmwnquzANzhVbc wkWxyXvaWRyjKQyoS994 CDSsvIvyOcYZFhq2V4Ch Moq6XNZitMofQQ5q xNTxNYzvOy1sgBhqzJbl CA4lYKUsvpfun721CxHs x8yeNPErlEJbXWumZVY6 A99yq7E2SOBlVWEs CJT8pQY6yP7zgOgigrxl bGVmdDsgdmVydGljYWwt YNsjK751ULCfkQtcVl7K Kod3R8ZvUkf5QKUo eSnlCD4rpQLnLMujDf8u nZmdwJvqQC0mZLCazclt m187AqBtz1aaEVDklSCi LTnhJZY0Q94zs8F9 GGMcMBVjTOV5oIK6aY4d bGlnbjogbGVmdDsgdmVy bHsxBFiiCRysU929THWo cDsnPlBheWVyOjwv dGQ+WC91kl10T5WfFfna Gho1PGNzKNN3lKJ1xV1n VMKjGFnoz5O0oIU9D0Qy wfBkjf1xk7ysATCw ZTo (more content not included)... [facility] Noteon 12-26-2021 Ambulance Note [id number] #[id number] [facility] ED Clinical Summaryon 2021 ED Clinical Summary [facility] - Emergency Department [address] [place], [place] [id number] ED Clinical Summary PERSON INFORMATION Name: LOCO HICKS Age: 36 Years Sex: FEMALE : 1985 MRN: Acct#: Visit Reason: Dizziness; FACIAL NUMBNESS, DIZZINESS Arrival: 12/21/2021 18:23:41 Discharge: 12/22/2021 00:02:00 LOS: 000 05:39 Check In: 12/21/2021 18:23:41 Checkout:12/22/2021 00:02:00 Address: [address] [place] [id number] PCP: Provider, None PROVIDER INFORMATION Provider Role Assigned Unassigned Alvin Bryan ED Provider 12/21/2021 18:26:52 12/21/2021 18:30:20 Sanjuana Ramirez WELDING MACHINE OPERATOR PLASMA ARC Nurse 12/21/2021 18:29:17 12/21/2021 23:14:12 MARIAJOSE EDEN ED PA 12/21/2021 18:30:25 Kerline Cartagena WELDING MACHINE OPERATOR PLASMA ARC Nurse 12/21/2021 21:46:32 Kerline Merrill RN ED [...] - pharynx pink and moist. NECK: -Supple ([id number]): non-tender. CARD: -Rate and rhythm: Regular -Edema: No -Calf pain: No RESP: -Respiratory effort and chest excursion with respirations: Normal -Breath sounds equal bilaterally: Clear -Wheezes: No -Rales: No BACK: -Signs of pain with movement: No ABD: -Distended: No (more content not included)... Normal [facility] ED Patient Education Noteon 12-22-2021 ED Patient Education Note [facility] ED Patient Summaryon 022 ED Patient Summary [facility] - Emergency Department [address] [place] [address] PATIENT DISCHARGE INSTRUCTIONS Patient Information Name: LOCO HICKS Age: 36 Years Date of : 1985 Reason For Visit: Dizziness; FACIAL NUMBNESS, DIZZINESS Arrival Time: 12/21/2021 18:23:41 Primary Care Physician: Provider, None Attending Physician: Alvin Bryan Comment: Visit Diagnosis: Diagnoses This Visit Dizziness ([id number]) Paresthesias (R20.2) Visual disturbance (H53.9) Prescription Information: If you have been given a prescription for narcotics, seek immediate medical attention if you have any difficulty breathing or any sudden status changes such as confusion and sleepiness. If you or anyone you know is experiencing suicidal thoughts, mental health, alcohol and/or drug addiction problems; contact the [facility] 17/02 Crisis Hotline -Text 4HURL to 945220. If you received any narcotics, sedation, or [...] and treatment you received today in the [facility] Emergency Department were for an urgent problem and are not intended as complete care. It is important for you to follow up with a doctor, nurse practitioner, or physician?s bilingual executive assistant for ongoing care. If your symptoms [...] so we can reach you if necessary. [facility] Emergency Department has provided you with a complete list of medications post discharge. 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.] management decisions. Fact sheet for Healthcare Providers: https://www.fda.gov/media/185615/download Fact sheet for Patients: https://www.fda.gov/media/028057/download Methodology: Isothermal Nucleic Acid Amplification Performed By: #### C OVRB #### [facility] [employer] Website [address] [place] [id number] Edging Machine Operator: Campbell Simmons MD SARS-CoV-2 (COVID-19) PCRon 12-22-2021 Employed in healthcare? No Invalid Interpretation Code [facility] Comment on above: Performed By: #### 6 [id number] ####[facility] (DEFAULT)[address] [place] [address] Group care resident? No Invalid Interpretation Code [facility] Comment on above: Performed By: #### 6 [id number] ####[facility] (DEFAULT)[address] [place] [address] In ICU? No Invalid Interpretation Code [facility] Comment on above: Performed By: #### 6 [id number] ####[facility] (DEFAULT)[address] [place] [address] status? Not Invalid Interpretation Code [facility] Comment on above: Performed By: #### 6 [id number] ####[facility] (DEFAULT)[address] [place] [address] SARS-CoV-2 (COVID-19) RNA SHELBI+probe Ql (Unsp spec) Not detected Normal Not Detected [facility] Comment on above: Result Comment: Perf ormed by PCR methodology. Performed By: #### 6 [id number] ####[facility] (DEFAULT)[address] [place] [address] SARS-CoV-2 (COVID-19) RNA SHELBI+probe Ql (Unsp spec) No Invalid Interpretation Code [facility] Comment on above: Performed By: #### 6 [id number] ####[facility] (DEFAULT)[address] [place] [address] Symptomatic as defined by CDC? No Invalid Interpretation Code [facility] Comment on above: Performed By: #### 6 [id number] ####[facility] (DEFAULT)[address] [place] [address] Transfer Noteon 12-22-2021 Transfer Note medication list sent with patient, Complete ED chart sent with patient. CD and med list sent w. patient to Hospital [Electronically Signed on: 12/22/2021 00:05 EDT] Nadya Garcia [Verified on: 12/22/2021 00:05 EDT] Nadya Garcia Normal [facility] Transfer Note [id number] [address] [place] [address] Transfer Note [id number] [address] [place] [address] Transfer Note transport called, [facility] called for transport to [facility]. Willie stated will call when back in area from [facility] Trip. [Electronically Signed on: 12/21/2021 22:14 EDT] Nadya Garcia [Verified on: 12/21/2021 22:14 EDT] Nady[facility] .Auto Diff 1on 12-21-2021 Auto [place] % 7 % Normal 12 [facility] Comment on above: Performed By: #### 7 367133, [id number], 5668260, 85650813, 7960417, 4858571, 5804529304, 9114071, [id number] ####[facility] (DEFAULT)[address] [place] [address] Baso Abs# 0.0 x10 Normal 0.0-0.2 [facility] Comment on above: Performed By: #### 7 957457, [id number], 8825052, 56532482, 6641942, 0928472, 3225425064, 7924237, [id number] ####[facility] (DEFAULT)[address] [place] [address] Basophils/100 WBC (Bld) 0.4 % Normal 0.2-2.0 [facility] Comment on above: Performed By: #### 7 680606, [id number], 5511520, 98072002, 9016889, 7289551, 0131685721, 8536665, [id number] ####[facility] (DEFAULT)[address] [place] [address] Eos Abs# 0.1 x10 Normal 0.0-0.4 [facility] Comment on above: Performed By: #### 7 641123, [id number], 2847077, 61151238, 6410811, 8177908, 7128107497, 0167665, 1382439924 ####[facility] (DEFAULT)[address] [place] [address] Eosinophils/100 WBC (Bld) 0.7 % Low 0.9-4.0 [facility] Comment on above: Performed By: #### 7 444815, [id number], 5579545, 29408113, 7383420, 2992842, 6816372045, 1294636, 4947512910 ####[facility] (DEFAULT)[address] [place] [address] Lymph Abs# 3.2 x10 High 1.3-2.9 [facility] Comment on above: Performed By: #### 7 237107, [id number], 5535483, 16966385, 3690743, 2852474, 4092213205, 9068822, 2807502057 ####[facility] (DEFAULT)[address] [place] [address] 26183 Lymphocytes/100 WBC (Bld) 40 % Normal 14-48 [facility] Comment on above: Performed By: #### 7 256576, 4946862286, 3586835, 09319644, 1101833, 7559570, 8936626479, 9947791, 1017937123 ####[facility] (DEFAULT)[address] [place] [address] [place] Abs# 0.6 x10 Normal 0.0-0.8 [facility] Comment on above: Performed By: #### 7 870955, 9674552944, 7522267, 35492363, 3821310, 0300336, 9317986130, 1485398, 3803356461 ####[facility] (DEFAULT)[address] [place] [address] Neut Abs# 4.3 x10 Normal 1.5-9.2 [facility] Comment on above: Performed By: #### 7 252276, 5265184561, 2841943, 28565368, 4004555, 6959405, 2515644143, 7428037, 1511522218 ####[facility] (DEFAULT)[address] [place] [address]891 Neutrophils/100 WBC (Bld) 53 % Normal 44-88 [facility] Comment on above: Performed By: #### 7 935357, 1843137967, 7777149, 19440375, 0315977, 2499441, 7649224631, 8433672, 8606160579 ####[facility] (DEFAULT)[address] [place] [address] CBC w/ Auto Diffon 2 Erythrocyte distribution width (RBC) [Ratio] 14.3 % Normal 11.5-15.0 [facility] Comment on above: Performed By: #### 7 532333, 3668575285, 2709886, 93365087, 9116495, 8095453, 9516907402, 7335786, 2722832063 ####[facility] (DEFAULT)[address] [place] [address] Hematocrit (Bld) [Volume fraction] 42.3 % High 33.7-40.4 [facility] Comment on above: Performed By: #### 7 079569, [id number], 9742006, 53668272, 6053144, 2966521, 9705763433, 4128235, 1567751080 ####[facility] (DEFAULT)[address] [place] [address]245 Hemoglobin (Bld) [Mass/Vol] 13.7 g/dL Normal 11.3-15.9 [facility] Comment on above: Performed By: #### 7 843212, 2343614535, 0995599, 87908572, 1010168, 5364317, 4034083965, 0518911, 7647554043 ####[facility] (DEFAULT)[address] [place] [address] Instr WBC 8.2 x10 Invalid Interpretation Code [facility] Comment on above: Performed By: #### 7 321190, 6920385584, 3493798, 88049734, 4461574, 5395568, 0432459658, 8228609, 8446646847 ####[facility] (DEFAULT)[address] [place] [address]733 Man Diff? Auto Normal [facility] Comment on above: Performed By: #### 7 334686, 0869744882, 8566382, 96066107, 7915579, 3680901, 8443168337, 7095837, 6195475730 ####[facility] (DEFAULT)[address] [place] [address] 48991 MCH (RBC) [Entitic mass] 31 pg Normal 24-34 [facility] Comment on above: Performed By: #### 7 320531, 6696971038, 2103136, 32811150, 0399555, 0292591, 0379410672, 4937689, 9579586383 ####[facility] (DEFAULT)[address] [place] [address] 59868 MCHC (RBC) [Mass/Vol] 32 g/dL Normal 26-37 [facility] Comment on above: Performed By: #### 7 596079, 8948358211, 4360259, 83266929, 2649053, 5925947, 4937329447, 6843803, 3106482277 ####[facility] (DEFAULT)[address] [place] [address] 94230 MCV (RBC) [Entitic vol] 96 fL Normal 81-100 [facility] Comment on above: Performed By: #### 7 270292, 7321622774, 9496615, 98124765, 8450277, 2137132, 5133916974, 2333237, 2442478971 ####[facility] (DEFAULT)[address] [place] [address] 19264 Platelet 363 x10 Normal 138-427 [facility] Comment on above: Performed By: #### 7 823742, 5649824959, 2195821, 67612948, 6541656, 9824485, 5943164675, 2732196, 8609418094 ####[facility] (DEFAULT)[address] [place] [address] Platelet mean volume (Bld) [Entitic vol] 10.2 fL Normal 6.3-10.2 [facility] Comment on above: Performed By: #### 7 779784, 1402265788, 2762593, 75685512, 3962591, 2318089, 5019655482, 2070700, 8021354138 ####[facility] (DEFAULT)[address] [place] [address] RBC 4.42 x10 Normal 3.70-5.30 [facility] Comment on above: Performed By: #### 7 443347, [id number], 3852093, 72907926, 5677724, 4531865, 7743209515, 2178257, 7157298905 ####[facility] (DEFAULT)[address] [place] [address] WBC 8.2 x10 Normal 3.5-10.5 [facility] Comment on above: Performed By: #### 7 197830, [id number], 4126356, 90111916, 6416762, 2655167, 5777530623, 4531435, [id number] ####[facility] (DEFAULT)[address] [place] [address] Standardon 12-21-2021 eGFR Non AA 57 mL/min/1.73m2 Invalid Interpretation Code [facility] Comment on above: Performed By: #### 7 966770, [id number], 7863221, 51806878, 0817103, 6495221, 1266975901, 5174497, 1449199200 ####[facility] (DEFAULT)[address] [place] [address] eGFR AA >60 Invalid Interpretation Code [facility] Comment on above: Result Comment: Shoemaker Apprentice nathalia Kidney disease could be indicated at eGFRs of less than 60 ml/min/1.73m2. Kidney Failure is indicated at less than 15 ml/min/1.73m2 Performed By: #### 7 944790, 8839436694, 4643347, 15624641, 2584966, 0933921, 4223723590, 3527701, 3864856996 ####[facility] (DEFAULT)[address] [place] [address] 86463 Albumin [Mass/Vol] 4.7 g/dL Normal 3.5-5.0 [facility] Comment on above: Performed By: #### 7 676771, [id number], 2412056, 74308912, 3193220, 3282963, 4303092724, 2116686, 5377279616 ####[facility] (DEFAULT)[address] [place] [address] Albumin/Globulin [Mass ratio] 1.1 {ratio} Low 1.4-2.6 [facility] Comment on above: Performed By: #### 7 453893, 5767110100, 6307533, 97576135, 2613833, 9710954, 1747009106, 8481238, 1543108733 ####[facility] (DEFAULT)[address] [place] [address] 57127 Alk Phos 99 IU/L High 32-91 [facility] Comment on above: Performed By: #### 7 208441, 2617626926, 0473045, 55840698, 1384696, 3016665, 3313686100, 6773660, 3049557989 ####[facility] (DEFAULT)[address] [place] [address] 83966 ALT [Catalytic activity/Vol] 32.0 U/L Normal 14.0-54.0 [facility] Comment on above: Performed By: #### 7 216989, 9753556805, 5707355, 96043704, 9287765, 2628081, 6499059197, 1326079, 9956063499 ####[facility] (DEFAULT)[address] [place] [address] 19161 Anion gap [Moles/Vol] 23.0 mmol/L High 5.0-19.0 [facility] Comment on above: Performed By: #### 7 197200, 8217695225, 7950590, 35404016, 2892917, 0542953, 4150299413, 6703481, 9566940078 ####[facility] (DEFAULT)[address] [place] [address] 58085 AST [Catalytic activity/Vol] 41 U/L Normal 15-41 [facility] Comment on above: Performed By: #### 7 069719, [id number], 0113293, 55318063, 1995317, 8701841, 5353877521, 4607963, 5657934376 ####[facility] (DEFAULT)[address] [place] [address] 19702 Bili Total 0.4 mg/dL Normal 0.3-1.2 [facility] Comment on above: Performed By: #### 7 012491, 2476383107, 8809927, 65698920, 4501858, 3986064, 2996527293, 6806970, 2033759651 ####[facility] (DEFAULT)[address] [place] [address] 19596 Calcium [Mass/Vol] 10.2 mg/dL Normal 8.9-10.3 [facility] Comment on above: Performed By: #### 7 580331, 7151300921, 6378263, 01775295, 6482295, 3608696, 8690279863, 0109560, 2151491385 ####[facility] (DEFAULT)[address] [place] [address] 13885 Chloride [Moles/Vol] 96 mmol/L Low 101-111 [facility] Comment on above: Performed By: #### 7 636151, 6958897049, 2886374, 69376635, 1660410, 0313858, 1149618069, 0200769, 2757545607 ####[facility] (DEFAULT)[address] [place] [address] 12394 CO2 [Moles/Vol] 24 mmol/L Normal 21-32 [facility] Comment on above: Performed By: #### 7 968616, 8744940721, 2275813, 81851668, 6676919, 2456568, 3763983674, 6780502, 9020019099 ####[facility] (DEFAULT)[address] [place] [address] 92219 Creatinine [Mass/Vol] 1.10 mg/dL Normal 0.60-1.30 [facility] Comment on above: Performed By: #### 7 435488, 8746094160, 0911471, 87489609, 7503573, 0688842, 2997045996, 0776911, 5915660077 ####[facility] (DEFAULT)[address] [place] [address] 17506 Globulin (S) [Mass/Vol] 4.2 g/dL Normal 1.5-4.3 [facility] Comment on above: Performed By: #### 7 217985, 2609519355, 3099699, 81966226, 1134253, 8372237, 5360272159, 3214976, 5075681854 ####[facility] (DEFAULT)[address] [place] [address] 52516 Glucose [Mass/Vol] 97.0 mg/dL Normal 74.0-118.0 [facility] Comment on above: Performed By: #### 7 285966, 0319838442, 2798816, 06484697, 5881671, 2406028, 6884505113, 2706297, 5095203874 ####[facility] (DEFAULT)[address] [place] [address] 21520 Osmolality 278 mOsm/L Invalid Interpretation Code [facility] Comment on above: Performed By: #### 7 976803, 6497195314, 9454779, 66704893, 4810671, 7635330, 3604710650, 5033576, 0776798510 ####[facility] (DEFAULT)[address] [place] [address] 08835 Potassium [Moles/Vol] 3.5 mmol/L Low 3.6-5.1 [facility] Comment on above: Performed By: #### 7 346176, 1189639791, 6816303, 86780317, 4950734, 8809898, 1766608183, 6590980, 7394208507 ####[facility] (DEFAULT)[address] [place] [address] 87031 Protein [Mass/Vol] 8.9 g/dL High 6.5-8.1 [facility] Comment on above: Performed By: #### 7 456433, 4568017296, 2275763, 77363543, 5398319, 1779543, 0590234149, 9600415, 8531079806 ####[facility] (DEFAULT)[address] [place] [address] 32406 Sodium [Moles/Vol] 139.0 mmol/L Normal 136.0-144.0 [facility] Comment on above: Performed By: #### 7 935358, 0952585079, 2651349, 99523821, 3889624, 2339069, 1706216640, 3560521, 8228063800 ####[facility] (DEFAULT)[address] [place] [address] 58353 Urea nitrogen [Mass/Vol] 15 mg/dL Normal 8-26 [facility] Comment on above: Performed By: #### 7 251913, 6603350151, 3746217, 39681409, 9697981, 0465488, 8548385765, 0422157, 1229950936 ####[facility] (DEFAULT)[address] [place] [address] 26084 Urea nitrogen/Creatinine [Mass ratio] 14.0 mg/mg Normal 4.6-16.2 [facility] Comment on above: Performed By: #### 7 843059, 1795857659, 0898880, 83426637, 6830283, 1549153, 9752477100, 5238919, 8832393803 ####[facility] (DEFAULT)[address] [place] [address] Head or Brain w/o Contras ton [...] 12/21/21 9:19 pm Technologist: Erwin CHAUDHARI Normal [facility] D-Dimeron 12-21-2021 D-Dimer 0.49 mg/L FEU Normal 0.19-0.50 [facility] Comment on [...] Liver cirrhosis ? Performed By: #### 7 651676, 4612806749, 9159860, 58383067, 0553888, 9924711, 1073698577, 1273125, 3495688364 ####[facility] (DEFAULT)[address] [place] [address] ED Note - Otheron 12-21-2021 ED Note - Other Neurology called back from [facility] on phone with Mariajose LLANES [Electronically Signed on: 12/21/2021 21:29 EDT] Nadya Garcia [Verified on: 12/21/2021 21:29 EDT] [facility] ED Note - Other paging Neurology through [facility] for consult for Mariajose LLANES [Electronically Signed on: 12/21/2021 21:12 EDT] Nadya Garcia [Verified on: 12/21/2021 21:12 EDT] [facility] - Physicianon 2021 ED [...] - pharynx pink and moist. NECK: -Supple (bobt-eo-tnrej): non-tender. CARD: -Rate and rhythm: Regular -Edema: [...] I di (more content not included)... Normal [facility] ED Note-Nursingon 12-21-2021 ED Note-Nursing Outside Laborer assumed care for pt at 2124. Pt had fluids running at that time. Will continue to give the rest of the liter per VO from MARIO ALBERTO. MARIO ALBERTO also stated that after speaking with neuro, pt is to be transferred to [facility] for MRI and further evaluation. Normal [facility] Ethanol.on 12-21-2021 Ethanol Level 9.0 mg/dL High 0.0-5.0 [facility] Comment on above: Performed By: #### 2 [id number] #### [facility] (DEFAULT) [address] [place] [address] Extra Powell 12-21-2021 Tube Collected Yes Invalid Interpretation Code [facility] Comment on above: Performed By: #### 2 932734, [id number] #### [facility] (DEFAULT) [address] [place] [address] 46048 Extra Redon 12-21-2021 Tube Collected Yes Invalid Interpretation Code [facility] Comment on above: Performed By: #### 7 863490, 0238948938, 7989566, 99239413, 2781719, 1539759, 8064989762, 7177653, 6008720743 #### [facility] (DEFAULT) [address] [place] [address] 55334 Magnesiumon 12-21-2021 Magnesium [Mass/Vol] 2.02 mg/dL Normal 1.80-2.50 [facility] Comment on above: Performed By: #### 7 129501, 1012133662, 2981646, 49058439, 6711599, 1413623, 9603299207, 4034495, 1891177388 ####[facility] (DEFAULT)[address] [place] [address] PTon 12-21-2021 INR Coag (PPP) [Relative time] 0.94 {INR} Normal 0.91-1.11 [facility] Comment on above: Performed By: #### 7 967613, 7032753675, 4440002, 25118530, 5208538, 1938634, 9241984471, 2045793, 0165007543 ####[facility] (DEFAULT)[address] [place] [address] PT 10.2 second(s) Normal 9.7-11.8 [facility] Comment on above: Performed By: #### 7 654854, 2494200343, 0617048, 54643945, 3670147, 5946881, 8207098947, 1656886, 0968578974 ####[facility] (DEFAULT)[address] [place] [address] 56492 PTTon 12-21-2021 PTT 26 second(s) Normal 25-35 [facility] Comment on above: Performed By: #### 7 854482, 3506796085, 2790832, 12349280, 3857046, 5331858, 8161007303, 2314138, 6446665951 ####[facility] (DEFAULT)[address] [place] [address] Test Urine 1 U Preg Negative Normal [facility] Comment on above: Performed By: #### 1 357564605, 571920036 ####[facility] (DEFAULT)[address] [place] [address] 20751 U Preg [facility] Comment on above: Performed By: #### 1 367175624, 505647643 ####[facility] (DEFAULT)[address] [place] [address] 65539 Salicylateon 12-21-2021 Salicylate Lvl <4.0 Normal 0.0-30.0 [facility] Comment on above: Result Comment: Sali cylate ranges less than 30 mg/dL are considered to be therapeutic. Levels greater than 30 mg/dL are considered toxic and levels greater than 60 mg/dL may be lethal. Performed By: #### 2 539037, [id number] #### [facility] (DEFAULT) [address] [place] [address] 51780 TnI HSon 12-21-2021 Troponin I High Sensitivity <2 Normal <=15 [facility] Comment on above: Result Comment: Male Baseline Delta 1Hr (Note pg/mL=ng/L) <20pg/mL 50-60% >20pg/mL 20% Female Baseline Delta 1Hr <15pg/mL 50-60% >15pg/mL 20% Other Baseline Delta 1Hr <18ng/mL 50-60% >18ng/mL 20% ([employer] Guidelines February 2018) Performed By: #### 7 689027, 3602579230, 2292642, 69135812, 6553151, 3134298, 9284393884, 9495836, 3863217212 ####[facility] (DEFAULT)[address] [place] [address] 59754 Triage Panel 12on 12-21-2021 Triage [facility] Comment on above: Performed By: #### 1 [id number] ####[facility] (DEFAULT)[address] [place] [address] 09257 U Amph Scr [facility] Comment on above: Performed By: #### 1 [id number] ####[facility] (DEFAULT)[address] [place] [address] 15486 U Vanesa Scr [facility] Comment on above: Performed By: #### 1 [id number] ####[facility] (DEFAULT)[address] [place] [address] 37473 U Benzodia Scr Negative Normal [facility] Comment on above: Performed By: #### 1 [id number] ####[facility] (DEFAULT)[address] [place] [address] 34336 U Cannab Sc[facility] Comment on above: Performed By: #### 1 [id number] ####[facility] (DEFAULT)[address] [place] [address] 15708 U Cocaine Scr Negative Normal [facility] Comment on above: Performed By: #### 1 [id number] ####[facility] (DEFAULT)[address] [place] [address] 40235 U Methadone [facility] Comment on above: Performed By: #### 1 766493488 ####[facility] (DEFAULT)[address] [place] [address] 77202 U Methamp [facility] Comment on above: Performed By: #### 1 [id number] ####[facility] (DEFAULT)[address] [place] [address] 80101 U Opiate [facility] Comment on above: Performed By: #### 1 [id number] ####[facility] (DEFAULT)[address] [place] [address] 31234 U Oxycod [facility] Comment on above: Performed By: #### 1 [id number] ####[facility] (DEFAULT)[address] [place] [address] 20433 U Phencyclidine Scr Negative Normal [facility] Comment on above: Performed By: #### 1 [id number] ####[facility] (DEFAULT)[address] [place] [address] 96443 U Propoxyphene Scr Negative Normal [facility] Comment on above: Performed By: #### 1 [id number] ####[facility] (DEFAULT)[address] [place] [address] 01360 U Tricyclic Antidepress Scr Negative Normal [facility] Comment on [...] PPX Propoxyphene (Norpropoxyphene): 300 ng/mL THC Cannabinoids (27-qvq-7-carboxy- -THC): 50 ng/mL TCA Tricyclic-Antidepressants (Desipramine): 300 ng/mL Performed By: #### 1 [id number] ####[facility] (DEFAULT)[address] [place] [address] Urine Source Clean Catch Normal [facility] Comment on above: Performed By: #### 1 [id number] ####[facility] (DEFAULT)[address] [place] [address] 88719 UA w Culture if Ind Standard on 12-21-2021 Color (U) Yellow Normal [facility] Comment on above: Performed By: #### 1 [id number], [id number] ####[facility] (DEFAULT)[address] [place] [address] 79175 Culture? Not Indicated Invalid Interpretation Code [facility] Comment on above: Result Comment: Resu lt created by rule GL_MAGR_ADD_UA_[id number] Performed By: #### 1 [id number], [id number] ####[facility] (DEFAULT)[address] [place] [address] Glucose (U) [Mass/Vol] Negative Normal [facility] Comment on above: Performed By: #### 1 [id number], [id number] ####[facility] (DEFAULT)[address] [place] [address] 11566 Ketones Ql (U) Negative Normal [facility] Comment on above: Performed By: #### 1 [id number], [id number] ####[facility] (DEFAULT)[address] [place] [address] 01803 Micro? Not Indicated Invalid Interpretation Code [facility] Comment on above: Result Comment: Resu lt created by rule GL_MAGR_ADD_UA_MICRO Performed By: #### 1 [id number], [id number] ####[facility] (DEFAULT)[address] [place] [address] 23917 UA Bilirubin Negative Normal [facility] Comment on above: Performed By: #### 1 [id number], [id number] ####[facility] (DEFAULT)[address] [place] [address] 08123 UA Blood Negative Normal NEGATIVE [facility] Comment on above: Performed By: #### 1 [id number], [id number] ####[facility] (DEFAULT)[address] [place] [address] 19141 UA Clarity CLEAR Normal CLEAR [facility] Comment on above: Performed By: #### 1 [id number], [id number] ####[facility] (DEFAULT)[address] [place] [address] 70456 UA Leuk Est Negative Normal NEGATIVE [facility] Comment on above: Performed By: #### 1 [id number], [id number] ####[facility] (DEFAULT)[address] [place] [address] 97879 UA Nitrite Negative Normal NEGATIVE [facility] Comment on above: Performed By: #### 1 [id number], [id number] ####[facility] (DEFAULT)[address] [place] [address] 24694 UA pH 6.5 Normal 5-8 [facility] Comment on above: Performed By: #### 1 [id number], [id number] ####[facility] (DEFAULT)[address] [place] [address] 21833 UA Protein Negative Normal NEGATIVE [facility] Comment on above: Performed By: #### 1 [id number], [id number] ####[facility] (DEFAULT)[address] [place] [address] UA Spec Grav <=1.005 Normal 1.001-1.035 [facility] Comment on above: Performed By: #### 1 [id number], [id number] ####[facility] (DEFAULT)[address] [place] [address] UA Urobilinogen 0.2 mg/dL Normal 0.2-1.0 [facility] Comment on above: Performed By: #### 1 [id number], [id number] ####[facility] (DEFAULT)[address] [place] [address] 15010 Breakpoint UA Normal [facility] Comment on above: Performed By: #### 1 [id number], [id number] ####[facility] (DEFAULT)[address] [place] [address] 10624 Urine Source Clean Catch Normal [facility] Comment on above: Performed By: #### 1 [id number], [id number] ####[facility] (DEFAULT)[address] [place] [address] 84599 XR Chest 2 Viewson 2 XR Chest [...] Bowen 12/21/21 9:38 pm Technologist: SRF,L Normal [facility] CARDIAC HUMAIRA ADMITon 021 CK [Catalytic activity/Vol] 117 U/L Normal 30-135 [facility] Comment on above: Performed By: #### T SH, CMADM, CMP #### [facility] [address] [id number] Nelida Lily CK.MB [Mass/Vol] 1.16 ng/mL Normal <=2.37 [facility] Comment on above: Performed By: #### T SH, CMADM, CMP #### [facility] [address] [place] [address] Nelida Lily HSTROP <4.0 Normal 4.0-35.5 [facility] Comment on above: Result Comment: CUT- OFF POINTS HAVE BEEN ESTABLISHED BASED ON THE FOURTH UNIVERSAL DEFINITIONS OF MYOCARDIAL INFARCTION. THE UPPER REFERENCE LIMIT (URL) OF TROPONIN, DEFINED THE 99TH PERCENTILE OF cTnI DISTRIBUTION IN A REFERENCE POPULATION, HAS BEEN CONFIRMED THE DECISION THRESHOLD FOR MD DIAGNOSIS. Performed By: #### T SH, CMADM, CMP #### [facility] [address] [place] [address] Nelida Lily NGA 41.0 ng/mL Normal <=61.5 [facility] Comment on above: Performed By: #### T SH, CMADM, CMP #### [facility] [address] [place], [place] [address] Nelida Lily CBC AUTO DIFFon 02-23-2021 BASO # 0.1 103/ul Normal 0.0-0.1 [facility] Comment on above: Performed By: #### C BC #### [facility] [address] [place] [address] Nelida Lily Basophils/100 WBC (Bld) 1.0 % Normal 0.2-2.0 [facility] Comment on above: Performed By: #### C BC #### [facility] [address] [place], [place] [address] Nelida Lily EO # 0.1 103/ul Normal 0.0-0.7 [facility] Comment on above: Performed By: #### C BC #### [facility] [address] [place] [address] Nelida Lily Eosinophils/100 WBC (Bld) 2.2 % Normal 0.9-7.0 [facility] Comment on above: Performed By: #### C BC #### [facility] [address] [place] [address] Nelidajose Bautista Erythrocyte distribution width (RBC) [Ratio] 14.2 % Normal 11.0-15.0 [facility] Comment on above: Performed By: #### C BC #### [facility] [address] [place] [address] Nelida Lily Hematocrit (Bld) [Volume fraction] 40.6 % Normal 36.0-48.0 [facility] Comment on above: Performed By: #### C BC #### [facility] [address] [place] [address] Nelida Lily Hemoglobin (Bld) [Mass/Vol] 13.3 g/dL Normal 12.0-16.0 [facility] Comment on above: Performed By: #### C BC #### [facility] [address] [place] [address] Nelida Lily IG # 0.02 10e3/ul Normal 0.00-0.03 [facility] Comment on above: Performed By: #### C BC #### [facility] [address] [place] [address] Nelida Lily IG % 0.4 % Normal 0.0-0.5 [facility] Comment on above: Performed By: #### C BC #### [facility] [address] [place] [address] Nelida Lily LYMPH # 1.7 103/ul Normal 1.2-3.8 [facility] Comment on above: Performed By: #### C BC #### [facility] [address] [place] [address] Nelida Kimbleen Lymphocytes/100 WBC (Bld) 34.6 % Normal 20.5-60.0 [facility] Comment on above: Performed By: #### C BC #### [facility] [address] [place] [address] Nelidajose Bautista MANUAL DIFF REQ NO Normal [facility] Comment on above: Performed By: #### C BC #### [facility] [address] [place], [place] [address] Nelidajose Bautista MCH (RBC) [Entitic mass] 31.5 pg Normal 26.7-34.0 [facility] Comment on above: Performed By: #### C BC #### [facility] [address] [place], [place] [address] Nelida Bautista MCHC (RBC) [Mass/Vol] 32.8 g/dL Normal 29.9-35.2 [facility] Comment on above: Performed By: #### C BC #### [facility] [address] [place], [place] [address] Nelidajose Bautista MCV (RBC) [Entitic vol] 96.2 fL Normal 81.0-99.0 [facility] Comment on above: Performed By: #### C BC #### [facility] [address] [place] [address] Nelida Kimbleen MONO # 0.4 103/ul Normal 0.3-0.8 [facility] Comment on above: Performed By: #### C BC #### [facility] [address] [place], [place] [address] Nelidajose Kimbleen Monocytes/100 WBC (Bld) 7.1 % Normal 1.7-12.0 [facility] Comment on above: Performed By: #### C BC #### [facility] [address] [place] [address] Nelidajose Kimbleen NEUT # 2.7 103/ul Normal 1.4-6.5 [facility] Comment on above: Performed By: #### C BC #### [facility] [address] [place], [place] [address] Nelida Lily Neutrophils/100 WBC (Bld) 54.7 % Normal 43.0-75.0 [facility] Comment on above: Performed By: #### C BC #### [facility] [address] [place], [place] [address] Nelida Lily Platelet mean volume (Bld) [Entitic vol] 9.8 fL Normal 9.5-13.5 [facility] Comment on above: Performed By: #### C BC #### [facility] [address] [place], [place] [address] Nelida Bautista PLT 320 103/ul Normal 150-450 [facility] Comment on above: Performed By: #### C BC #### [facility] [address] [id number] Nelida Bautista RBC 4.22 106/ul Normal 4.20-5.40 [facility] Comment on above: Performed By: #### C BC #### [facility] [address] [id number] Nelida Kimbleen WBC 4.9 103/ul Normal 4.0-11.0 [facility] Comment on above: Performed By: #### C BC #### [facility] [address] [id number] STROKE HEAD WOon 02-24-20 [...] JANESSA SKINNER Date: 2021-02-23 13:52 Normal [facility] ER URINE PROFILEon 1 Bilirubin Ql (U) Negative Normal NEGATIVE The [facility] Comment on above: Performed By: #### E RUR #### [facility] [address], [place] [address] Nelida Bautista Clarity (U) CLEAR Normal CLEAR [facility] Comment on above: Performed By: #### E RUR #### [facility] [address] [place] [address] Nelida Lily Color (U) LT. YELLOW Normal YELLOW [facility] Comment on above: Performed By: #### E RUR #### [facility] [address] [place], [place] [id number] Nelida Lily ERUAHD A micrscopic examination will be performed if indicated. Normal [facility] Comment on above: Performed By: #### E RUR #### [facility] [address] [place] [address] Nelida Lily Glucose Ql (U) Negative Normal NEGATIVE The [facility] Comment on above: Performed By: #### E RUR #### [facility] [address] [place] [address] Nelida Lily Hemoglobin Ql (U) Negative Normal NEGATIVE The [facility] Comment on above: Performed By: #### E RUR #### [facility] [address] [place] [address] Nelida Lily Ketones Ql (U) Negative Normal NEGATIVE [facility] Comment on above: Performed By: #### E RUR #### [facility] [address] [place] [address] Nelida Lily LEUKOCYTES Negative Normal NEGATIVE [facility] Comment on above: Performed By: #### E RUR #### [facility] [address] [place] [address] Nelida Lily Nitrite Ql (U) Negative Normal NEGATIVE [facility] Comment on above: Performed By: #### E RUR #### [facility] [address] [place] [address] Nelida Lily pH (U) 8.0 [pH] Normal 5-9 [facility] Comment on above: Performed By: #### E RUR #### [facility] [address] [place] [address] Nelida Lily SPEC GRAVITY 1.020 Normal 1.005-<=1.025 [facility] Comment on above: Performed By: #### E RUR #### [facility] [address] [place] [address] Nelida Lily UA PROTEIN Negative Normal NEGATIVE/ TRACE [facility] Comment on above: Performed By: #### E RUR #### [facility] [address] [place] [address] Nelida Bautista UR MICRO IND NOT INDICATED Normal [facility] Comment on above: Performed By: #### E RUR #### [facility] [address] [place], [place] [address] Nelida Bautista Urobilinogen Qn (U) 0.2 {Jose Carlos'U}/dL Normal 0.2 - 1. 0 [facility] Comment on above: Performed By: #### E RUR #### [facility] [address] [place], [place] [address] Nelida Bautista POINT OF CARE GLUCOSEon 01-27 Glucose [Mass/Vol] 95 mg/dL Normal 74-106 [facility] Comment on above: Performed By: #### P OCGLUC #### [facility] [address] [place], [place] [address] Nelida Bautista PREG HCG QUALon 02-23-2021 , QUAL Negative Normal NEGATIVE [facility] Comment on above: Performed By: #### P REG #### [facility] [address] [place] [address] Nelida Bautista PROF 14(COMP METB)on 021 Albumin [Mass/Vol] 3.6 g/dL Normal 3.5-5.0 [facility] Comment on above: Performed By: #### T JOÃO LOCK, CMP #### [facility] [address] [place], [place] [address] Nelida Bautista Albumin/Globulin [Mass ratio] 0.9 {ratio} Normal [facility] Comment on above: Performed By: #### T JOÃO LOCK, CMP #### [facility] [address] [place], [place] [address] Nelida Bautista ALP [Catalytic activity/Vol] 103 U/L Normal 38-126 [facility] Comment on above: Performed By: #### T JOOÃ LOCK, CMP #### [facility] [address] [place], [place] [address] Nelida Lily ALT [Catalytic activity/Vol] 35 U/L Normal 9-52 [facility] Comment on above: Performed By: #### T JOÃO LOCK, CMP #### [facility] [address] [place] [address] Nelida Lily Anion gap [Moles/Vol] 13.3 mmol/L Normal [facility] Comment on above: Performed By: #### T JOÃO LOCK, CMP #### [facility] [address] [place] [address] Nelida Lily AST [Catalytic activity/Vol] 28 U/L Normal 14-36 [facility] Comment on above: Performed By: #### T JOÃO LOCK, CMP #### [facility] [address] [place] [address] Nelida Lily Bilirubin [Mass/Vol] 0.2 mg/dL Normal 0.2-1.3 [facility] Comment on above: Performed By: #### T JOÃO LOCK, CMP #### [facility] [address] [place] [address] Nelida Lily Calcium [Mass/Vol] 9.0 mg/dL Normal 8.4-10.2 [facility] Comment on above: Performed By: #### T JOÃO LOCK, CMP #### [facility] [address] [place] [address] Nelida Lily Chloride [Moles/Vol] 108 mmol/L Critically high 98-107 [facility] Comment on above: Performed By: #### T JOÃO LOCK, CMP #### [facility] [address] [place] [address] Nelida Lily CO2 [Moles/Vol] 25.8 mmol/L Normal 22.0-30.0 [facility] Comment on above: Performed By: #### T JOÃO LOCK, CMP #### [facility] [address] [place] [address] Nelida Lily Creatinine [Mass/Vol] 1.00 mg/dL Normal 0.52-1.04 [facility] Comment on above: Performed By: #### T JOÃO LOCK, CMP #### [facility] [address], [place] [address] Nelida Lily EGFR-AF BELIZEAN >60 Normal >=60 [facility] Comment on above: Performed By: #### T JOÃO LOCK, CMP #### [facility] [address] [id number] Nelida Lily EGFR-NON AF BELIZEAN >60 Normal >=60 [facility] Comment on above: Performed By: #### T JOÃO LOCK, CMP #### [facility] [address] [id number] Nelida Lily Globulin (S) [Mass/Vol] 4.2 g/dL Normal [facility] Comment on above: Performed By: #### T JOÃO LOCK, CMP #### [facility] [address] [address] Nelida Lily Glucose [Mass/Vol] 95 mg/dL Normal 74-106 [facility] Comment on above: Performed By: #### T JOÃO LOCK, CMP #### [facility] [address] [address] Nelida Lily Potassium [Moles/Vol] 4.1 mmol/L Normal 3.4-5.0 [facility] Comment on above: Performed By: #### T JOÃO LOCK, CMP #### [facility] [address] [id number] Nelida Lily Protein [Mass/Vol] 7.8 g/dL Normal 6.1-8.2 [facility] Comment on above: Performed By: #### T JOÃO LOCK, CMP #### [facility] [address] [address] Nelida Lily Sodium [Moles/Vol] 143 mmol/L Normal 137-145 [facility] Comment on above: Performed By: #### T JOÃO LOCK, CMP #### [facility] [address] [address] Nelida Lily Urea nitrogen [Mass/Vol] 10.0 mg/dL Normal 7.0-17.0 [facility] Comment on above: Performed By: #### T JOÃO LOCK, CMP #### [facility] [address] [place], [place] [address] Nelida Bautista Urea nitrogen/Creatinine [Mass ratio] 10.0 mg/mg Normal [facility] Comment on above: Performed By: #### T JOÃO LOCK, CMP #### [facility] [address] [place], [place] [address] Nelida Bautista TSHon 02-23-2021 TSH 1.157 uIU/mL Normal 0.470-4.680 [facility] Comment on above: Performed By: #### T JOÃO LOCK, CMP #### [facility] [address] [id number] Nelida Bautista TSH RANGE SEE BELOW Normal [facility] Comment on above: Result Comment: <0.3 4 UIU/ml HYPERTHYROID 0.34-5.60 UIU/ml EUTHYROID >5.60 UIU/ml HYPOTHYROID Performed By: #### T JOÃO LOCK, CMP #### [facility] [address], [place] [address] Nelida Bautista XR CHEST 1 Von 02-23-2021 [...] JANESSA SKINNER Date: 2021-02-23 13:53 Normal [facility] Encounters Encounter Date Encounter Type Care Provider Facility Start: 02-16-2024 End: 02-16-2024 ambulatory SHAWNA RICHTER Not Available Start: 02-09-2024 End: 02-09-2024 ambulatory MARYANN VIZCARRA Not Available Start: 01-26-2024 End: 01-26-2024 ambulatory MARYANN ZACKERY [...] Available Start: 12-22-2021 End: 12-22-2021 [facility] [place] [facility] Start: 02-23-2021 End: 02-23-[address] DOCTOR GOODSON Facility: Payers Date Payer Category Payer Unknown [id number] 1985 Unknown [id number] 2.16.84 [id number] 1987 Unknown [id number] 2.16.84 [id number] 1987 Unknown [id number] 2.16.84 [id number] 1987 Unknown [id number] 2.16.84 [id number] 1987 Unknown [id number] 2.16.84 [id number] 1987 Unknown [id number] 2.16.84 [id number] 1987 Unknown [id number] 2.16.84 [id number] 1987 Unknown [id number] 2.16.84 0.1.475121.3.579.2.9 1987 Unknown [id number] 2.16.84 [id number] 1987 Unknown [id number] 2.16.84 [id number] 1987 Unknown [id number] 2.16.84 [id number] 1959 Unknown [id number] Summary Purpose Family History No Family History Records FoundNo Family History Records FoundNo Family History Records FoundNo Family History Records Found Advance Directives No Advanced Directives Records FoundNo Advanced Directives Records FoundNo Advanced Directives Records FoundNo Advanced Directives Records Found Additional Source Comments INFORMATION SOURCE (unrecogn ized section and content) DATE CREATED AUTHOR 02/28/2021 [facility] DATE CREATED AUTHOR AUTHOR'S ORGANIZ ATION 12/24/2021 [facility] DATE CREATED AUTHOR AUTHOR'S ORGANIZ ATION 01/01/2022 [facility] DATE CREATED AUTHOR AUTHOR'S ORGANIZ ATION 02/18/2024 [facility] FOR [...] THE PRIMARY CLINICAL RECORDS. [facility] [employer] [facility]. provides no warranty or guarantee of the accuracy or completeness of information in this document.
[2024-02-20 08:16] VITALS: BP 121/85; PULSE 85
== END 2024-02-20 08:41 | disposition home or self-care (01) ==
LOC: FBCO 07:34 → FBC 08:01
PROVIDERS: Visit Provider Obstetrics & Gynecology
DX: O99.283 Endocrine, nutritional and metabolic diseases complicating pregnancy, third trimester (principal)
CPT/HCPCS: 59025

== ENCOUNTER 2024-02-20 08:10 | Outpatient (OUT) | payer BC, SELFPAY ==
--- OUTSIDE RECORDS SUMMARY | 2024-02-20 08:14 | XMS_ITS | CCD ---
Author Organization [facility] Care Team Providers Care Field Counsel Name Role Phone NAINAC, DR OLSON Primary Care Unavailable PAY, DR OLSEN Admitting Unavailable PAY, DR OLSEN Attending Unavailable ZIEBER, DR JANESSA Davila Consulting Unavailable PAY, DR OLSEN Consulting Unavailable SCHLACHTER, JARVIS Referring Unavailable SCHEJNIFERCHTNEREIDA, JARVIS Primary Care Unavailable CHODISGEE, SUBRAHMANYAM Consulting [...] Coding Summaryon 12-31-2021 Coding Summary HTMLBase 64 UihuwjtpIYo3jDj+PGhl YWQ+AL5DCUAoR06svEHf sU3KD8eQAK5OTLHHVYRM HA3NCU4glSG9YMsoV3Zi biAv KrxpnFRaUS81ABn3LLB0 cUltQPrerO9vxAAeB5v4 RnZtLW49dU04PMlfTPMe VjQ4ImGgifzycMOq J9riJyFndZDmNqu+PHRh YmxlIHdpZHRoPScxMDAl ZgDnbXpgTD3sMr5bMCMg LWNvbGxhcHNlOiBj v5cpEVVmYOgkCF0fdDbk G9YjvPL9HRZfy6z0Fg37 dHI+QXKrEHB1jIdiTNtf c775QvOvi8apUTL7 vWSoEKzvONN4T63ui0R1 IMZtSUBjSII9zSW3dF6b qXrpaoirT1YwbJVeVfS3 FFW3uKQadO0upTwp hnqteX2rKua+R62YND2B NQTLZQ1KLrb6R9HmHzhg dHI+KB05XGMnCB25oUKz nNRfd7rhyNe5OwJt MTXgCCM4uPocEKhzy7Ef GWNcE02shLElw4R9QAYc uRugxRCdEwCujYV0nQ4k YQbarcwrm8bcncmy Lwrml2lcfq90oG59C70y ELfeSPKyXUR3KUPuBNHy gUxrks1exP1ySs4+IDxj w6jhe3ttrCn6JkUx CGMkzvZjzMmwFIF4i9Gk Io91J0BsrFhes1TrOnl9 hg14yIQvt3I6cRC9VQal MAUrwP6tJNpxByP6 NBQoRiKdwD33vAAwVGsj Wp6lrGkvuCqsEY9xKKMu rozcPPYwfU4uUUAjpBAt cJxaUY7qOLOutple h441ZlWxLBW0NNGurGMc T5GedZ5cFlLeWLCaBHCb Q8XbnIUeDEmfD096MDvu IpJ3JSPknvRmR4Fn STIokBlgJkZ8t8F6Br7V u4SmssrtMXC8MKjxCSD7 EhL6ZzUkOdG1F4JpUes2 ROTiuAnhGN2bG7Od NAWnstcxtpsioAO8FSGy IXWajY52zPYoITpySz6e c8V6k381CMBfRLPefP78 Pq7nuIlsEFOcdGCQ jU8ztxtlm8lxvuauCyUd AJGoSQo7EHj2QUPokJms MoFqFMW0GpI1KIS6jMYw jK6tpXfqhhtpjT1l Oyc+V08xtK1oXQK8AUH8 wobgXNPbgqIoDT39KG81 Y7DvSwwlmKYrrAN+PGRp gcPqzOrbVQ4nBbFp t1mmw1TjLGoiW4KpKJBy ALkbNxg0PBVsXDI9aFN1 fI2jJTVyAItxz7E4fQR9 Z1HiyxJbjy0yk1et ANHtKLboB34gaZKli0W4 QYTftMH2ULVkiGmkGqZc gU52Gqp+FYWavYfvb8Jc Eopto4dul3zxsUh4 IjMwJSIgdmFsaWduPSJ0 i7EyBq68W02yRGbvXPGr CYFhYPXtTTKriDtrvi7m zB4nDt1+PGNvbCB3 bOQ1bQ3eIMSvMfX1TXwn P535PvNlbMTnQrxfw6zx k7tgdHl6MhIiIKBfvuQf dDddYJJ7e0LnWr63 K13jENjwSMLjONOlJYAy OJIgiAxmul2voZ0kAx7+ KS9rg7goal34fX21tRA+ KWDoUSD3jDddVDbi GSZrrR3qGQdeFqR2LXOy XbMolG34jFEvKVvrFj7s dPpqxVcdFC8gMOZxtvia n547OiTmu7amBMJn uLWxHYjsUAZ6G56nj9L9 AASdUDFhOZW0sUX1dE5r bGlnbjogbGVmdDsgdmVy aWleARxiQKvlA547 IHRvcDsnPlBhdGllbnQg PkAeOEn4Y6CrJdl3JCKs pYoyLJ1mvLLbNNipBy5s cNpakGgaRI6wRZGv bfwap171CtQgs5gfZRRt sHAeBMgdOBW0X06tn8L7 YACyFOGdAJB2mFV3oC6r bGlnbjogbGVmdDsg geYidSmyAEsfLIcfR863 IHRvcDsnPkJpcnRoIERh nIN1WR93KZ69vOSnj9A8 rVS0Q3XxRXYruyrw wjhwiCO5HZWzTQBtoW28 Vr5amBtoDn9qHDSiPDY3 BTSdaTDeU6GjgB1yTzOw JPFyOWYhB1BarFMr ZDztP183ORkgGfL7OBXb jvMuL5KuFWQmfLmzExY7 l8G3Dx1HI0E1GJ31LW60 qZGxc4I2xCE3B4Pl HTIddmwzxehwiRE0NFNo AIKraG88Aw8ehYhoXa7w LOQpNWH6AYMhiKEcF2Yv lE3vRuRdKYPkODXd I8NzcNNbVCaqV554SDjr GrW0OIZwkrDpP3BsDBHg xRihClS9l8J0Fp3IMFl3 VK34HZ40lPArv5F8 wQO5J9BeQFWoqbjzhrri xSQ8ZGOyHDLdjG01Tk8d iJqmSv9mQGIuSEJ3WXNk pKFbT7QnpU1wCaOn WLNxQMQeV4BcaPEiOVag J280AJazEjN0KPFddvGh J3LiXGSmgLleDqG8m5X6 Ul9LODCkKI54UFI5 rIH6EM31OV14K2AiRagm dGFibGU+PHRhYmxlIHdp ZHRoPScxMDAlJyBzdHls JO1wJi2zLNItLIEj eQtwaZMeWeKfs2drHEBv QOscON1slYtbP0FxqCB0 SPYmb7v5Jh21V85uX8Ca dXA+HIRouLR3pQP5 xH8kCbBgFdM3HHvuI635 ShUdpTZbZtktj1fua9ob hEp3ToV4SERneiNztNvu CTG4l1DwOq34X25u IHdpZHRoPSIxNSUiIHZh nZeyuz2prL8vOx1+PGNv dHV7gSY9kB2mOlNwCdX7 QZsvS890VlDbrJXt Wdbdc4eeq9ekxAw4ZcUk WQYkdrKdsNzxKMB4u1Vv Mg24Y9UjwGume7OjJjr7 ox73xIIdy1G3zHT1 O7DyDLXcsnwccCWheJxq IR6nCAGyhvavYNLeoG7m XVTcQ2q1GvQwQbQ9EMez F7NipcG0XONiuHTq JGbmEXY4R10mm8I3BNHh DWAvGEV6dGV9eJ5sgLdu bjogbGVmdDsgdmVydGlj HZpbNGhgE797FGFs vLmySFHsjC9fIMBspMMa zTwlAG0zNYXzqbtuQpbY PHYQMCOUMUSESkACRD60 NO19uLSvp0O2fRB2 W6FeLDPoruoieisrtDJ7 DHYaWOTtbY68vOTiAXel Db6sv8W1w372VZRtNPOo iW91Im5hySspMSHt wMYJzF6gsapof3dxvpmz GtSpSQOcJPt9VAd6AQJw mRqjPhFuKED2QjV8UJI9 bSXqqN5krVqouyfs pM8mQyz+MDEvMDgvMTk4 ODwvdGQ+TJYgTXP6cQxb WCujQWUftQ8oPDHtL1k2 AiJdLrD5MKhrQ0Bh IGVswgesIb49eP2hWfWp NcJ7QGhfS3WfwrY1NKPa dZMaPFvuIGO6E58ad0G0 VVHxHQFtGYC8zUA6 fQ3ajCqrvibzcMWcjLoz xbSdoHjhRQkrYMvhW399 RAAomPoyTzA7QAxrBCMi VL85HR24hUTrh9X5 tDM2J6DsUWAhwvydfuyf aXA3ZVWrCURsqW61lTSf PTahZv9wk4Z5p172SCXv QUFktT30Jr2gqQvw GYYsqFGYpY1jwubgl2kd xyivXkJlKMPsSAt1HHi8 KVQjhQwuWcToILP8CxU1 WEY9gVXetK4afQph ajdhdP4cTro+RkVNQUxF JX24TH26iYMdw9Q0qHO7 B2GrPYCqxooxoxwhsDY5 MGFqHQMjnB69zQPo IYxdUz2ms3N1n292VGXd BJPhvQ14Rp5pwHapQDOf bTCZjN3huityx7blavit AlJqGZOdVZz1QLn9 DDWipCsvUtDiQHH7FbQ5 JPG3wGZtuC2miYcdtyug fV2wHgm+N1G6R7MpHnwt dHI+SF52DCJjWA77 iFMuxULpq8axlKi4TsTd TONlBHS2iTwwNCqrf5Pp VMGgJ56adORxc0O3HMUf bGxhcHNlOyBlbXB0 kY5iRLkgqzhpr2tvuzoi Vvcbh9aeyp15sW51E10o IHdpZHRoPSIzMCUiIHZh nJvbox9jjE0mVt2+ DJOovWC2uDN7kR5wRtHn QgS4DSioG119PiAzaLJq Oedcc2bhd9cgaBz5JbOf JSIgdmFsaWduPSJ0 w4SlZw52A00yLKeeJKSl IJNmXLKmLZGkjTwaua9i rH9yWp3+EQ4tw0jjxl30 yB90uLO+PHRkIHN0 uNuvKVsoYAIzfH3jGMlj XgH9NEHaSiKsiL56uBSv YOrtIu3mlXkhtLldGP1o BDXmgnjme054HeWy x3sfPZKzaKDdOQlaZEU6 Q87rz0Q0QFBiVVCcDJB8 yST6kX6arHwmozidcWHh dDsgdmVydGljYWwt LCybW842WXCfgZubQdLy rERuQ0uqtbEBIQ5bGxwi dGQ+FAUtQXM9wPwtXQya BXNexK3dBHRfE3l9 DeOxTuL6CEeyJ3JqosM3 XFVjaFKlGILakHXZgR4n ocmcm6sgjcjhLwFoEMAv GGn8VSq2SVUzkXqj LeQkNRA1ObN2UOM7wFYn yW9ufFudiwqeoW9rRru+ RklOOjwvdGQ+PHRkIHN0 xLuwWNfpNPOzyD2a VMHzX7c0DlWrOvL5OKai G6GasmV6GIAmzTEhXGFj dVTTyO0grwaxj4nkxcdw FxXqLUMfNIr2KMu5 RUYdmVwzRwEzKPM1CvD0 YQN6rYHmsC1agCtyzldc aN4sRxa+TVJOOjwvdGQ+ SLGcLNC5bHetQPvm KWBxvR9fTIDaB4g0YfEg NyM9HSpfU6JksbD2EGKr bZIfGSRcqOEAfT6ugbzn u5ktnxrvQyFcNCXq ZFn7ELt2SBVpoIpgDuYf DMC2LwE3RUM3eLFthZ2y gBkurpywcB6xOuf+UGF5 CTB2BR06YO75D0Xf PjwvdGFibGU+PHRhYmxl IHdpZHRoPScxMDAlJyBz eVwoFS8mDf1tSIDrHLLt yLtblBMdHoLze5xx YXB (more content not included)... [facility] Coding Summary HTMLBase 64 AiavqytjATs4rDk+PGhl YWQ+VR8KRIFqM38riOUl sG6WV6nUKQ5YVEHWDENN WA0LEW6abWF9YMkbM3Ie biAv LjsksFJdGW92MMk2YJV4 kSoxPRwxkD2rhXHcP3v2 EgIuCX35hX60LPrzDBKe AiD6SvVnplemsPIc A7giGjVgfFLeSfk+PHRh YmxlIHdpZHRoPScxMDAl HmIweUamYU8qCg1wUTGx LWNvbGxhcHNlOiBj m9ogAYWsHYpsMW8rsBqq U6SmlSB7VYLxf5b6Zb87 dHI+AXScVCF5uWuiYThy w251MgXcp0piSLO3 bCYdTKwfHHR6U38uf3L0 OACsDPVrDUK0cWU6uI0y lXvcedbaA3FnqLZdZrD6 KQY5qRIcgQ8jeTru mlmbsA2qLqs+Q92HIS5V NQONQW0EVqc2Q5AsFjsh dHI+PX55ZEYrWF04xSNr zBDkn4wofRn8YdWu EHSgZIA2oNgwGYthj8Sq UESvS95ukMFbf5W5KNGu kMmdzONoItFchTR7wG3r LCerhtrxu1qqstiq Jvhbx6memd44qB38U02f HRovDGZyJGI0PLRjGXEb qNfmqs1vaB8vPh0+IDxj j8wms6gaxUg9WoPh LNXrqvJqkVacIWZ4t4Nh Pp26G4HbbDdni7GmBip3 kv87xEEde5P8nVR8QRuz VUNqcT0mKBffKsT5 OHQsSkEpgR29gGIrRWks Sn4qiXhnsYgbOZ7jZIYd xprjQHRwkD0fHEOpeWAg mBxqIM2gUGDlpjjp f022CcZhSBI1KFFezMXm R6PbuK2iZeKgNSJwOFBc O4FqjFApNRmiK280FNik YcV2PODxpeWqO4Fu VBOmnCatQaR9i8Q8Oj6N r7SumekwTIH8KYesYMW9 DqS4HtJnPkU3O2FiQpf1 RHUdfMwzLG1fR4Ui KBUbmddiqlpdcMB3SVAw FFCtjO74vDDkTIqqTc3q c3Z4p843KTGmBGHzjT63 Kj6ebSxtTJMyrZND rN4lwvcwd8woqwusHaMl CKVcDJm2AZl1HZYnqXry JxHjWPX7GzV1JZB7jULe vW1sfHjtldueqE3j Oyc+X33hoR0ySMJ9GOD2 znqaZWSyvwZfMC71OX51 N1TrPfnamOLvjGU+PGRp jqFqsVbdXU7xAeBl w4toq4ZoWRjiY5QnHQIo EWaqYpr8JOTgLEV2iRJ9 rJ9xJNGlXAgmd9B3gIJ6 T6NrplGzcb8rd6zg KACzAAsuC87amMIdw9X2 QHKsmTV2QGBnpMofRlQv bJ01Fqe+ZNBoyMkts9Gg Arspg0fgs5gemSr9 IjMwJSIgdmFsaWduPSJ0 c0QnBb12V95bDSwcOCYh FUAdNPXwVRFqtRncpd5m xB7mJj4+PGNvbCB3 fJF3aF4kNETxUsB9OGgn U605DnLkqBEgXqazj2yh f3lpcTs2QvVoNMPehkHu tHpxEGG4d2LuQc17 P22oKGeuNKLhGLRpKQNt GCWclQxbsn0gyX3uFi9+ VI7xs0mnqo90gZ10pAO+ NLEtNQT4uNehEHbj MDZjmS3dMFmtBmI8BOAk WbTtuM50jYZgBVggUr9e mHqaxZxpCX5aQGMabnvo r818GfOby9jiTOSe vFCoMSedZLL0H99cv9E2 XNFzNJOgWXV5aMG2qI9t bGlnbjogbGVmdDsgdmVy wSzvCWkgORygU288 IHRvcDsnPlBhdGllbnQg QqNfPAe7E6PyDgw1WZRv nCplDG1qnXGsCDlvMx3j rGkfdOdgBT9jDYUh iatxd064GyVtr2jyIRBo kIZwDWwsLPX5O35xb2X6 STHkAZJfSYV8eWT3iW7r bGlnbjogbGVmdDsg diWxyWbrBKlvXZycK383 IHRvcDsnPkJpcnRoIERh cHV0HP11CU06kATmc7V9 oHE4U4DmZVGtuhzd oldexSK7MTRiWLYnfD56 Lo4vtYrzXn3zDJMkOPC9 YBGvuQTkT3OsaN8hMwEz UAJfDLUwV6CyrTMr GRfcJ317PBefTaP5VWWf naNnG7VqCRCzpPwaPzP5 b0Y0Wp9CR3K7LE63ZB91 sRAyz8N9yCT9O9Qa TAOrdpchzunrtFP8HAKz UTQxlO63Op6cnBanDg7q SRIeIUY0UVXvxKMzD4Ah bW1uBcYdUPGjJOVm Z6YiaLEkDBmcK031BTpd DzB1MNEyrnToY7GlQVDh oUroMkZ6h2Z9Gd6HBAy6 JJ65NA15jLFkz6E5 vRH3D6FvNNWkbhvqtxkc mPI6BATxTYFksD35Bq4a xFasJh7xADZyTZC4EQNd aOFvR7DhrL3bMaHd NZQjMYXzQ0VscWAvUUiu C789ZFsbYdG8XENmhdBv T5NjOJQnoWghUmC5m4L0 Tz2RIGRbST20USB1 jUL6XU79QV92N7SiUtal dGFibGU+PHRhYmxlIHdp ZHRoPScxMDAlJyBzdHls XY4mQy9oVFWyGUXh hVkvkLAgFpCvr8glYSIo LLlsNY8akCbsV5UikEA6 RUZpz1j7Pt41V55yL3Tz dXA+GRQkqZX9kGO5 dO6fGpTvAmL4DJpdO265 VxHzpXZnHrsqp8qzp9cv cNf3QqZ8MLHbeqWkgGlb GCL2z5AvCd65T57r IHdpZHRoPSIxNSUiIHZh kPupsb5uoM7bBq0+PGNv gLA8uVA9dI6kInBwPeD8 QEvxR718XzVxyPWr Uixwq2gmz9sfvZp4UhAm GVGxbePycRegZQG9c7Pv Dp30D5RenQgtk3HiErq4 xh58bTEwo9V2gJO6 U4JgPBLgclzekPOwvDke KO0pADTpxnzmVLCclY1r ERTqT4s5XoXpMvJ9UYfb D9CvlnZ7KFOapZMu XGvaCQY4R13vz5T9YZMg SKCjBSF7zWD7aN5vyXqf bjogbGVmdDsgdmVydGlj XNhkMQfpN861QKKo iRxlHVPhpY6kDPTomYDq iOkkOC0cNVUmhszfWsvU HOKHTICASNEWJeVYGE53 CV82mSSqr7I7pBL5 Y5FtKWOjhqavvktobXD1 AIQsANRcwK23tSXaZIiv Lq7qa5A0m884IEMdTIAt wK78Sv3ytBgeYXIr dDZHjM8dlwovo4uonrpv AxEbAWBnSSg8IOp6QEPk rBdpSqJpOTN0YrV9AYM0 eSAzvB0wbPmsnsid fR8pIbl+MDEvMDgvMTk4 ODwvdGQ+WISsTGH6eRjx CFhoUCFgpT1mLFGqU2r9 KyAsBgM9ZFmqZ0Bm QLGhgxdyUd26hB9zVfJr PhH2FZpkT3NyluB6QZDc gWUtZZbtLBZ5M60ix1R2 DUTrDUEkBLI6gAO2 nU6amQuguhqwlWNhvOxk qqGztIdfSAuuNZeiD030 LUAwhBooAgQ1MXaiIVZp HO04UV30mUVfc0Y4 pHO8A1VdHVBotpbovwws bBW6GQGrADSzsE36lIPl QHssMy8rs3G3v435ISZw VYJprP83Ea3xwNam HCZscSTHvC0kbykgl9ql hkuaGjOlMPYqVQs7VBr1 OFTccLakCvAxKDU4ZaY8 ULJ8zDTsaJ2rdCts cqhnnB2rCne+RkVNQUxF ZX70TF67cVShu9Y2aFT8 C4FmAVGbjlsrrfjufJW9 TAYyCEWqcG44rEMw LNppCq0ks6A1g530VEYw SJYbaN75Ez1ihFenUGCc rRVXuY3bmyozf8hvqbpn TxUcVUXtXOo9BIc7 PDDffXhuWsXmMYN3JiG7 XAU3fEMdxB5moXilxbyd zR2hMcu+XK2iyhihalP4 AK96YO99T5FxNsmy dGFibGU+PHRhYmxlIHdp ZHRoPScxMDAlJyBzdHls MB9cWc3hOCAwZJIetFfy dCMrXgFjw3epOCBn BDjtPI9rnZceB0YsgCA4 WJGdd5w1Ry37P14oV3Wv dXA+DMUnvAH8aSK1mG7e IhFhEvY4ZFjjO694 GpPbxSBuMjrot3dne2rb rCq3KsViQSVowaTefXef IBX4v2IiHc42G93vTPdh ZHRoPSIyMCUiIHZh pFpofc6imQ5qZb3+PGNv uHD7sHS4zP0wAwEoMlQ5 AEdjN961JcTdlTThXwzs K99zV6FmtRX+PHRy Izx9WDXsjAcjVK7tyWFs CMrnWu0rPTE7MaIkKyAr BWzuS9TaMAJnvomlamjl fYV5ABAqGWVohE20 Qb8wvPemRj1mDXDdOBE6 DKBtbCUyN6HtpJ9yIgXg BKWdZVTaZ0EjdCCnBZsy H761CSizWuK6KYGf rtEtR1UfJGWuvXvnYzB0 i2Q2Cx7UkIsbhDLaLK6b RuAaXKc8M6UeHmd4IGBa tSepXA7puGCmLGbe Uu8pcFypoKzaII7jQVRb lkqgd039IbPll3bzAXEe nIXbIMsnTRT5W02pk2D8 YAMqVKZdFZN0nXO4 lP1jeGapibnomHYwrJmd bmMvmBnsAOhuWOshL136 FMAawQfvLcUOXca9V8Ow Ulc0PNYbqNvjVI0p uCZsQDdfNg4chKxzfNik GS6qQANqgszmh759FlZi r7vfMGMbuSPqGNdeNNR3 U56un2U1TLGrRAFv SRA3pSX4rQ0tiNvjcrgc bGVmdDsgdmVydGljYWwt HTwjE542QNNqoFkkLb0A Dic9B1CnQeg5TCBs tUznVZ4toIIbNKbgNn9s uUucuSmcYY5uBHUqtoty c326IdVzs1dmAPWohJEi UUzcQWM9Q94fo1Z6 KRInIJTrKIU6gHR0fF2d bGlnbjogbGVmdDsgdmVy nJqbIGwnLTogZ301BKBb cDsnPlBheWVyOjwv dGQ+KK40tn12W1UcNvhw Hbq1OWVxVHG4jSS1tV9y RFAdDQpkj1E3aHQ8M3Wx xqUgfo6ne3qmCFCm ZTo (more content not included)... [facility] Ambulance Noteon 12-26-2021 Ambulance Note [id number] [id number] [facility] ED Clinical Summaryon 2021 ED Clinical Summary [facility] - Emergency Department [address] [place], [place] [id number] ED Clinical Summary PERSON INFORMATION Name: LOCO HICKS Age: 36 Years Sex: FEMALE : 1985 MRN: Acct#: Visit Reason: Dizziness; FACIAL NUMBNESS, DIZZINESS Arrival: 12/21/2021 18:23:41 Discharge: 12/22/2021 00:02:00 LOS: 000 05:39 Check In: 12/21/2021 18:23:41 Checkout:12/22/2021 00:02:00 Address: [address] [place] [id number] PCP: Provider, None PROVIDER INFORMATION Provider Role Assigned Unassigned Alvin Bryan ED Provider 12/21/2021 18:26:52 12/21/2021 18:30:20 Sanjuana Ramirez NICKEL OPERATOR Nurse 12/21/2021 18:29:17 12/21/2021 23:14:12 MARIAJOSE EDEN ED PA 12/21/2021 18:30:25 Kerline Cartagena NICKEL OPERATOR Nurse 12/21/2021 21:46:32 Kerline Merrill RN ED [...] - pharynx pink and moist. NECK: -Supple ([id number]): non-tender. CARD: -Rate and rhythm: Regular -Edema: No -Calf pain: No RESP: -Respiratory effort and chest excursion with respirations: Normal -Breath sounds equal bilaterally: Clear -Wheezes: No -Rales: No BACK: -Signs of pain with movement: No ABD: -Distended: No (more content not included)... Normal [facility] ED Patient Education Noteon 12-22-2021 ED Patient Education Note Education Materials [facility] ED Patient Summaryon 022 ED Patient Summary [facility] - Emergency Department [address] [place] [address] PATIENT DISCHARGE INSTRUCTIONS Patient Information Name: LOCO HICKS Age: 36 Years Date of : 1985 Reason For Visit: Dizziness; FACIAL NUMBNESS, DIZZINESS Arrival Time: 12/21/2021 18:23:41 Primary Care Physician: Provider, None Attending Physician: Alvin Bryan Comment: Visit Diagnosis: Diagnoses This Visit Dizziness ([id number]) Paresthesias (R20.2) Visual disturbance (H53.9) Prescription Information: If you have been given a prescription for narcotics, seek immediate medical attention if you have any difficulty breathing or any sudden status changes such as confusion and sleepiness. If you or anyone you know is experiencing suicidal thoughts, mental health, alcohol and/or drug addiction problems; contact the [facility] 17/02 Crisis Hotline -Text 4HWUP to [phone]. If you received any narcotics, sedation, or [...] and treatment you received today in the [facility] Emergency Department were for an urgent problem and are not intended as complete care. It is important for you to follow up with a doctor, nurse practitioner, or physician?s mri assistant for ongoing care. If your symptoms [...] so we can reach you if necessary. [facility] Emergency Department has provided you with a complete list of medications post discharge. Please inform your quantitative research analyst/provider of your visit and for further [...] for Disease Control and Prevention March 2014 [facility] MRI BRAIN W WO CONTRASTon [...] Ean Cedillo MD 12/22/21 Final result Normal [facility] MRI CERVICAL SPINE W WO CONT [facility] 12-22-2021 MRI CERVICAL SPINE W WO [...] Ean Cedillo MD 12/22/21 Final result Normal [facility] [id number] 12-22-2021 SARS-CoV-2 (COVID-19) RNA SHELBI+probe Ql (Unsp spec) Not detected Normal NOTDET [facility] Comment on above: Result Comment: [...] management decisions. Fact sheet for Healthcare Providers: https://www.fda.gov/media/292568/download Fact sheet for Patients: https://www.fda.gov/media/845420/download Methodology: Isothermal Nucleic Acid Amplification Performed By: #### C OVRB #### [facility] [employer] [address] [place] [id number] Business Applications Manager: Campbell Simmons MD SARS-CoV-2 (COVID-19) PCRon 12-22-2021 Employed in healthcare? No Invalid Interpretation Code [facility] Comment on above: Performed By: #### 6 [id number] ####[facility] (DEFAULT)[address] [place] [address] Group care resident? No Invalid Interpretation Code [facility] Comment on above: Performed By: #### 6 [id number] ####[facility] (DEFAULT)[address] [place] [address] In ICU? No Invalid Interpretation Code [facility] Comment on above: Performed By: #### 6 [id number] ####[facility] (DEFAULT)[address] [place] [address] status? Not Invalid Interpretation Code [facility] Comment on above: Performed By: #### 6 [id number] ####[facility] (DEFAULT)[address] [place] [address] SARS-CoV-2 (COVID-19) RNA SHELBI+probe Ql (Unsp spec) Not detected Normal Not Detected [facility] Comment on above: Result Comment: Perf ormed by PCR methodology. Performed By: #### 6 [id number] ####[facility] (DEFAULT)[address] [place] [address] SARS-CoV-2 (COVID-19) RNA SHELBI+probe Ql (Unsp spec) No Invalid Interpretation Code [facility] Comment on above: Performed By: #### 6 [id number] ####[facility] (DEFAULT)[address] [place] [address] Symptomatic as defined by CDC? No Invalid Interpretation Code [facility] Comment on above: Performed By: #### 6 [id number] ####[facility] (DEFAULT)[address] [place] [address] Transfer Noteon 12-22-2021 Transfer Note medication list sent with patient, Complete ED chart sent with patient. CD and med list sent w. patient to Hospital [Electronically Signed on: 12/22/2021 00:05 EDT] Nadya Garcia [Verified on: 12/22/2021 00:05 EDT] Nadya Garcia Normal [facility] Transfer Note [id number] [address] [place] [address] Transfer Note [id number] [address] [place] [address] Transfer Note transport called, [facility] called for transport to [facility]. Willie stated will call when back in area from [facility] Trip. [Electronically Signed on: 12/21/2021 22:14 EDT] Nadya Garcia [Verified on: 12/21/2021 22:14 EDT] Nadya aGrcia [facility] .Auto Diff 1on 12-21-2021 Auto [place] % 7 % Normal 12 [facility] Comment on above: Performed By: #### 7 276712, [id number], 4704294, 55528543, 4116927, 6431463, 6373057974, 5989220, [id number] ####[facility] (DEFAULT)[address] [place] [address] Baso Abs# 0.0 x10 Normal 0.0-0.2 [facility] Comment on above: Performed By: #### 7 365719, [id number], 7994582, 43348804, 9324612, 6717169, 9626921058, 2878413, [id number] ####[facility] (DEFAULT)[address] [place] [address] Basophils/100 WBC (Bld) 0.4 % Normal 0.2-2.0 [facility] Comment on above: Performed By: #### 7 033962, [id number], 5500690, 28669864, 6648390, 5715004, 0350333817, 8823004, [id number] ####[facility] (DEFAULT)[address] [place] [address] Eos Abs# 0.1 x10 Normal 0.0-0.4 [facility] Comment on above: Performed By: #### 7 758292, [id number], 2454468, 18738864, 5584539, 2518529, 4393732864, 8932110, 5077113715 ####[facility] (DEFAULT)[address] [place] [address] 19749 Eosinophils/100 WBC (Bld) 0.7 % Low 0.9-4.0 [facility] Comment on above: Performed By: #### 7 712559, [id number], 2880506, 46188193, 7682268, 9888366, 7873092489, 1110071, 6190650625 ####[facility] (DEFAULT)[address] [place] [address]97 Lymph Abs# 3.2 x10 High 1.3-2.9 [facility] Comment on above: Performed By: #### 7 166066, 1229475443, 6385085, 73795136, 2287368, 7312540, 1948062383, 1532618, 0323102792 ####[facility] (DEFAULT)[address] [place] [address] 37556 Lymphocytes/100 WBC (Bld) 40 % Normal 14-48 [facility] Comment on above: Performed By: #### 7 946224, [id number], 6804577, 34386799, 3501550, 9454408, 4129226398, 5041357, 4457748408 ####[facility] (DEFAULT)[address] [place] [address] [place] Abs# 0.6 x10 Normal 0.0-0.8 [facility] Comment on above: Performed By: #### 7 479000, 0137509327, 2118701, 06645048, 8167549, 7462281, 9713879260, 0157219, 0130584541 ####[facility] (DEFAULT)[address] [place] [address] 34662 Neut Abs# 4.3 x10 Normal 1.5-9.2 [facility] Comment on above: Performed By: #### 7 128717, 7349011150, 0282070, 30934622, 5519570, 2058771, 6664107153, 5330438, 8720192015 ####[facility] (DEFAULT)[address] [place] [address] 16492 Neutrophils/100 WBC (Bld) 53 % Normal 44-88 [facility] Comment on above: Performed By: #### 7 343663, 4970495119, 9844093, 05443461, 4586560, 9503973, 9586540349, 3648155, 8283295282 ####[facility] (DEFAULT)[address] [place] [address] CBC w/ Auto Diffon 2 Erythrocyte distribution width (RBC) [Ratio] 14.3 % Normal 11.5-15.0 [facility] Comment on above: Performed By: #### 7 012073, 5781454487, 0362635, 99666604, 3022227, 1272591, 1785321765, 0196567, 3654720403 ####[facility] (DEFAULT)[address] [place] [address] Hematocrit (Bld) [Volume fraction] 42.3 % High 33.7-40.4 [facility] Comment on above: Performed By: #### 7 156177, 5170278216, 1847619, 45128495, 4435742, 7382735, 0978611979, 7147092, 8193541451 ####[facility] (DEFAULT)[address] [place] [address]1420 Hemoglobin (Bld) [Mass/Vol] 13.7 g/dL Normal 11.3-15.9 [facility] Comment on above: Performed By: #### 7 311953, 3352958707, 8330271, 86210064, 8106957, 7568614, 2653172123, 3487750, 3595078157 ####[facility] (DEFAULT)[address] [place] [address] Instr WBC 8.2 x10 Invalid Interpretation Code [facility] Comment on above: Performed By: #### 7 940453, 5001351744, 9292351, 14390556, 7368644, 6260200, 1580079825, 3336795, 3944252719 ####[facility] (DEFAULT)[address] [place] [address] 98647 Man Diff? Auto Normal [facility] Comment on above: Performed By: #### 7 611046, 0094895942, 3914017, 14888784, 7320683, 3019474, 1460165690, 7934163, 1535809199 ####[facility] (DEFAULT)[address] [place] [address] 99910 MCH (RBC) [Entitic mass] 31 pg Normal 24-34 [facility] Comment on above: Performed By: #### 7 608233, 8738598945, 6263255, 07467841, 1677522, 4065157, 2305240112, 1568003, 0559056318 ####[facility] (DEFAULT)[address] [place] [address] 17991 MCHC (RBC) [Mass/Vol] 32 g/dL Normal 26-37 [facility] Comment on above: Performed By: #### 7 026073, 9611738209, 0406973, 35263347, 1271950, 1629657, 7519927550, 2569725, 9277609501 ####[facility] (DEFAULT)[address] [place] [address] 82767 MCV (RBC) [Entitic vol] 96 fL Normal 81-100 [facility] Comment on above: Performed By: #### 7 833289, 5297565869, 1607632, 52493260, 5844667, 2772897, 9245518783, 6306350, 8955645146 ####[facility] (DEFAULT)[address] [place] [address] 82141 Platelet 363 x10 Normal 138-427 [facility] Comment on above: Performed By: #### 7 478189, 1080058734, 9727844, 46883889, 6415204, 2927588, 9227734489, 7669065, 3708984085 ####[facility] (DEFAULT)[address] [place] [address] Platelet mean volume (Bld) [Entitic vol] 10.2 fL Normal 6.3-10.2 [facility] Comment on above: Performed By: #### 7 682942, 0750134188, 6782577, 21761780, 5096770, 7214636, 7282075095, 6034654, 4199162210 ####[facility] (DEFAULT)[address] [place] [address] RBC 4.42 x10 Normal 3.70-5.30 [facility] Comment on above: Performed By: #### 7 100403, 5617775193, 1141755, 88078894, 9716364, 4538805, 0787565856, 3076734, 2488587522 ####[facility] (DEFAULT)[address] [place] [address] WBC 8.2 x10 Normal 3.5-10.5 [facility] Comment on above: Performed By: #### 7 180582, 6311633385, 3953758, 08317920, 3917231, 3748757, 0159251152, 6447839, 2116655339 ####[facility] (DEFAULT)[address] [place] [address] Standardon 12-21-2021 eGFR Non AA 57 mL/min/1.73m2 Invalid Interpretation Code [facility] Comment on above: Performed By: #### 7 866529, 1719235499, 8813068, 53200741, 4172704, 2370921, 2317183136, 3627601, 4211419609 ####[facility] (DEFAULT)[address] [place] [address] eGFR AA >60 Invalid Interpretation Code [facility] Comment on above: Result Comment: Soil Biology Teacher nathalia Kidney disease could be indicated at eGFRs of less than 60 ml/min/1.73m2. Kidney Failure is indicated at less than 15 ml/min/1.73m2 Performed By: #### 7 570010, [id number], 2281497, 43238813, 6026934, 1219330, 9961855648, 4023783, [id number] ####[facility] (DEFAULT)[address] [place] [address] 42105 Albumin [Mass/Vol] 4.7 g/dL Normal 3.5-5.0 [facility] Comment on above: Performed By: #### 7 768019, [id number], 6670128, 34807388, 8314190, 2569603, 6202232016, 8378780, 0222937571 ####[facility] (DEFAULT)[address] [place] [address] Albumin/Globulin [Mass ratio] 1.1 {ratio} Low 1.4-2.6 [facility] Comment on above: Performed By: #### 7 708917, [id number], 2808557, 43857083, 9414422, 9431282, 8150550181, 6845393, 3783261267 ####[facility] (DEFAULT)[address] [place] [address] 57920 Alk Phos 99 IU/L High 32-91 [facility] Comment on above: Performed By: #### 7 172529, [id number], 5446752, 11423838, 8780760, 5130076, 6486527026, 3631782, 1959584276 ####[facility] (DEFAULT)[address] [place] [address] 07944 ALT [Catalytic activity/Vol] 32.0 U/L Normal 14.0-54.0 [facility] Comment on above: Performed By: #### 7 980582, [id number], 9580107, 40551903, 4822035, 0501028, 4844672012, 8425990, 8547176873 ####[facility] (DEFAULT)[address] [place] [address] 04903 Anion gap [Moles/Vol] 23.0 mmol/L High 5.0-19.0 [facility] Comment on above: Performed By: #### 7 131395, [id number], 5382901, 93884097, 8423960, 4216411, 3942659317, 4704567, 8909295465 ####[facility] (DEFAULT)[address] [place] [address] 66333 AST [Catalytic activity/Vol] 41 U/L Normal 15-41 [facility] Comment on above: Performed By: #### 7 864811, [id number], 3135115, 10167942, 9717886, 9143164, 6758957166, 7281433, 1571823877 ####[facility] (DEFAULT)[address] [place] [address] 83517 Bili Total 0.4 mg/dL Normal 0.3-1.2 [facility] Comment on above: Performed By: #### 7 798097, 1748456949, 5393896, 40618470, 7848547, 5405738, 2828835284, 5552701, 8355499672 ####[facility] (DEFAULT)[address] [place] [address] 19995 Calcium [Mass/Vol] 10.2 mg/dL Normal 8.9-10.3 [facility] Comment on above: Performed By: #### 7 174959, 6535213615, 2764889, 85826547, 4304312, 9613598, 5632163618, 5488802, 9446847593 ####[facility] (DEFAULT)[address] [place] [address] 30213 Chloride [Moles/Vol] 96 mmol/L Low 101-111 [facility] Comment on above: Performed By: #### 7 549263, 3732340260, 3507751, 80744240, 4344623, 8128627, 6762327425, 2285531, 7732597587 ####[facility] (DEFAULT)[address] [place] [address] 27675 CO2 [Moles/Vol] 24 mmol/L Normal 21-32 [facility] Comment on above: Performed By: #### 7 536152, 4920907943, 2318698, 80793113, 7638042, 6285976, 5504134766, 0449138, 6601969778 ####[facility] (DEFAULT)[address] [place] [address] 75188 Creatinine [Mass/Vol] 1.10 mg/dL Normal 0.60-1.30 [facility] Comment on above: Performed By: #### 7 868912, 1336051043, 1643467, 49310761, 7126303, 2408288, 2829333515, 4378513, 3029422842 ####[facility] (DEFAULT)[address] [place] [address] 35357 Globulin (S) [Mass/Vol] 4.2 g/dL Normal 1.5-4.3 [facility] Comment on above: Performed By: #### 7 073373, 1345592871, 0629351, 32646195, 3938579, 5688828, 9851515026, 8460577, 3766469491 ####[facility] (DEFAULT)[address] [place] [address] 45517 Glucose [Mass/Vol] 97.0 mg/dL Normal 74.0-118.0 [facility] Comment on above: Performed By: #### 7 083986, 6804353259, 2565645, 13742015, 3836851, 1794900, 7734511264, 1354399, 3618909531 ####[facility] (DEFAULT)[address] [place] [address] 76636 Osmolality 278 mOsm/L Invalid Interpretation Code [facility] Comment on above: Performed By: #### 7 798689, 8347240881, 7958993, 10792806, 5507705, 6848697, 9206450901, 3027776, 3215192520 ####[facility] (DEFAULT)[address] [place] [address] 52788 Potassium [Moles/Vol] 3.5 mmol/L Low 3.6-5.1 [facility] Comment on above: Performed By: #### 7 820222, 9703460080, 2745377, 69860741, 0495347, 9770051, 4422127362, 1830527, 7332041423 ####[facility] (DEFAULT)[address] [place] [address] 17732 Protein [Mass/Vol] 8.9 g/dL High 6.5-8.1 [facility] Comment on above: Performed By: #### 7 511743, 0631188699, 0472781, 55834492, 1741278, 5979024, 4735423973, 6490629, 6222825015 ####[facility] (DEFAULT)[address] [place] [address] 57986 Sodium [Moles/Vol] 139.0 mmol/L Normal 136.0-144.0 [facility] Comment on above: Performed By: #### 7 368313, 8593303928, 0239211, 15998215, 2183812, 8827053, 9437527866, 7917512, 9634301463 ####[facility] (DEFAULT)[address] [place] [address] 09398 Urea nitrogen [Mass/Vol] 15 mg/dL Normal 8-26 [facility] Comment on above: Performed By: #### 7 363127, 4406226113, 7352707, 40131190, 1482115, 9494492, 4069601154, 8547783, 9331521759 ####[facility] (DEFAULT)[address] [place] [address] 08982 Urea nitrogen/Creatinine [Mass ratio] 14.0 mg/mg Normal 4.6-16.2 [facility] Comment on above: Performed By: #### 7 645578, 1939249544, 0204717, 74130714, 2611829, 9261609, 3054978781, 1786358, 4074418607 ####[facility] (DEFAULT)[address] [place] [address] Head or Brain w/o Contras ton [...] 12/21/21 9:19 pm Technologist: Erwin CHAUDHARI Normal [facility] D-Dimeron 12-21-2021 D-Dimer 0.49 mg/L FEU Normal 0.19-0.50 [facility] Comment on above: Result Comment: The [...] Liver cirrhosis ? Performed By: #### 7 922995, 8637091731, 5075340, 02662580, 8118279, 6040292, 7508293241, 0633646, 2553365869 ####[facility] (DEFAULT)[address] [place] [address] ED Note - Otheron 12-21-2021 ED Note - Other Neurology called back from [facility] on phone with Mariajose LLANES [Electronically Signed on: 12/21/2021 21:29 EDT] Nadya Garcia [Verified on: 12/21/2021 21:29 EDT] Nadya Garcia [facility] ED Note - Other paging Neurology through [facility] for consult for Mariajose LLANES [Electronically Signed on: 12/21/2021 21:12 EDT] Nadya Garcia [Verified on: 12/21/2021 21:12 EDT] RadhaNadya [facility] ED Note - Physicianon 2021 [...] - pharynx pink and moist. NECK: -Supple ([id number]): non-tender. CARD: -Rate and rhythm: Regular -Edema: [...] I di (more content not included)... Normal [facility] ED Note-Nursingon 12-21-2021 ED Note-Nursing Aba Therapist assumed care for pt at 2124. Pt had fluids running at that time. Will continue to give the rest of the liter per VO from MARIO ALBERTO. MARIO ALBERTO also stated that after speaking with neuro, pt is to be transferred to [facility] for MRI and further evaluation. Normal [facility] Ethanol.on 12-21-2021 Ethanol Level 9.0 mg/dL High 0.0-5.0 [facility] Comment on above: Performed By: #### 2 [id number] #### [facility] (DEFAULT) [address] [place] [address] Extra [place] 12-21-2021 Tube Collected Yes Invalid Interpretation Code [facility] Comment on above: Performed By: #### 2 022881, [id number] #### [facility] (DEFAULT) [address] [place] [address] 06387 Extra Redon 12-21-2021 Tube Collected Yes Invalid Interpretation Code [facility] Comment on above: Performed By: #### 7 306663, [id number], 2685661, 64548553, 0117179, 7385613, 4220059454, 3362954, 5346769976 #### [facility] (DEFAULT) [address] [place] [address] 43103 Magnesiumon 12-21-2021 Magnesium [Mass/Vol] 2.02 mg/dL Normal 1.80-2.50 [facility] Comment on above: Performed By: #### 7 795024, 7440947471, 8422266, 88928714, 5154033, 4714566, 5941093175, 8422923, 0463396738 ####[facility] (DEFAULT)[address] [place] [address] PTon 12-21-2021 INR Coag (PPP) [Relative time] 0.94 {INR} Normal 0.91-1.11 [facility] Comment on above: Performed By: #### 7 649675, 4930581636, 5448740, 92635524, 2095447, 5504513, 9956065676, 7135218, 9414823353 ####[facility] (DEFAULT)[address] [place] [address] PT 10.2 second(s) Normal 9.7-11.8 [facility] Comment on above: Performed By: #### 7 754881, 4401326232, 0149033, 74316989, 2655937, 6918041, 8530591932, 1241031, 9441102568 ####[facility] (DEFAULT)[address] [place] [address] 88280 PTTon 12-21-2021 PTT 26 second(s) Normal 25-35 [facility] Comment on above: Performed By: #### 7 716622, 9067785118, 8299331, 96502934, 2422306, 2505425, 2762379643, 9716384, 4193736213 ####[facility] (DEFAULT)[address] [place] [address] Test Urine 1 U Preg Negative Normal [facility] Comment on above: Performed By: #### 1 [id number], [id number] ####[facility] (DEFAULT)[address] [place] [address] 85062 U Preg Internal Control Pass [facility] Comment on above: Performed By: #### 1 [id number], [id number] ####[facility] (DEFAULT)[address] [place] [address] 30104 Salicylateon 12-21-2021 Salicylate Lvl <4.0 Normal 0.0-30.0 [facility] Comment on above: Result Comment: Sali cylate ranges less than 30 mg/dL are considered to be therapeutic. Levels greater than 30 mg/dL are considered toxic and levels greater than 60 mg/dL may be lethal. Performed By: #### 2 199518, [id number] #### [facility] (DEFAULT) [address] [place] [address] 41001 TnI HSon 12-21-2021 Troponin I High Sensitivity <2 Normal <=15 [facility] Comment on above: Result Comment: Male Baseline Delta 1Hr (Note pg/mL=ng/L) <20pg/mL 50-60% >20pg/mL 20% Female Baseline Delta 1Hr <15pg/mL 50-60% >15pg/mL 20% Other Baseline Delta 1Hr <18ng/mL 50-60% >18ng/mL 20% ([employer] [employer] Guidelines February 2018) Performed By: #### 7 905283, 2140692215, 0981896, 65794082, 2956918, 8793084, 3275803471, 0166697, 7600440135 ####[facility] (DEFAULT)[address] [place] [address] 86309 Triage Panel 12on 12-21-2021 Triage Internal Control Pass [facility] Comment on above: Performed By: #### 1 [id number] ####[facility] (DEFAULT)[address] [place] [address] 92194 U Amph Scr Negative [facility] Comment on above: Performed By: #### 1 [id number] ####[facility] (DEFAULT)[address] [place] [address] 66476 U Vanesa Scr Negative [facility] Comment on above: Performed By: #### 1 [id number] ####[facility] (DEFAULT)[address] [place] [address] 55467 U Benzodia Scr Negative Normal [facility] Comment on above: Performed By: #### 1 [id number] ####[facility] (DEFAULT)[address] [place] [address] 31898 U Cannab Scrn Negative [facility] Comment on above: Performed By: #### 1 [id number] ####[facility] (DEFAULT)[address] [place] [address] 21139 U Cocaine Scr Negative Normal [facility] Comment on above: Performed By: #### 1 [id number] ####[facility] (DEFAULT)[address] [place] [address] 43762 U Methadone Scr Negative [facility] Comment on above: Performed By: #### 1 [id number] ####[facility] (DEFAULT)[address] [place] [address] 38004 U Methamp Scrn Negative [facility] Comment on above: Performed By: #### 1 [id number] ####[facility] (DEFAULT)[address] [place] [address] 60118 U Opiate Scr Negative [facility] Comment on above: Performed By: #### 1 [id number] ####[facility] (DEFAULT)[address] [place] [address] 52505 U Oxycod Scr Negative [facility] Comment on above: Performed By: #### 1 [id number] ####[facility] (DEFAULT)[address] [place] [address] 53848 U Phencyclidine Scr Negative Normal [facility] Comment on above: Performed By: #### 1 [id number] ####[facility] (DEFAULT)[address] [place] [address] 49811 U Propoxyphene Scr Negative Normal [facility] Comment on above: Performed By: #### 1 [id number] ####[facility] (DEFAULT)[address] [place] [address] 64488 U Tricyclic Antidepress Scr Negative Normal [facility] Comment on above: Result [...] PPX Propoxyphene (Norpropoxyphene): 300 ng/mL THC Cannabinoids (38-bkw-1-carboxy- -THC): 50 ng/mL TCA Tricyclic-Antidepressants (Desipramine): 300 ng/mL Performed By: #### 1 [id number] ####[facility] (DEFAULT)[address] [place] [address] Urine Source Clean Catch Normal [facility] Comment on above: Performed By: #### 1 [id number] ####[facility] (DEFAULT)[address] [place] [address] 81846 UA w Culture if Ind Standard on 12-21-2021 Color (U) Yellow Normal [facility] Comment on above: Performed By: #### 1 [id number], [id number] ####[facility] (DEFAULT)[address] [place] [address] 18456 Culture? Not Indicated Invalid Interpretation Code [facility] Comment on above: Result Comment: Resu lt created by rule GL_MAGR_ADD_[email or web address]_[email or web address] Performed By: #### 1 [id number], [id number] ####[facility] (DEFAULT)[address] [place] [address] Glucose (U) [Mass/Vol] Negative Normal [facility] Comment on above: Performed By: #### 1 [id number], [id number] ####[facility] (DEFAULT)[address] [place] [address] 57848 Ketones Ql (U) Negative Normal [facility] Comment on above: Performed By: #### 1 [id number], [id number] ####[facility] (DEFAULT)[address] [place] [address] 84244 Micro? Not Indicated Invalid Interpretation Code [facility] Comment on above: Result Comment: Resu lt created by rule GL_MAGR_ADD_UA_MICRO Performed By: #### 1 [id number], [id number] ####[facility] (DEFAULT)[address] [place] [address] 17116 UA Bilirubin Negative Normal [facility] Comment on above: Performed By: #### 1 [id number], [id number] ####[facility] (DEFAULT)[address] [place] [address] 16199 UA Blood Negative Normal NEGATIVE [facility] Comment on above: Performed By: #### 1 [id number], [id number] ####[facility] (DEFAULT)[address] [place] [address] 82376 UA Clarity CLEAR Normal CLEAR [facility] Comment on above: Performed By: #### 1 [id number], [id number] ####[facility] (DEFAULT)[address] [place] [address] 27243 UA Leuk Est Negative Normal NEGATIVE [facility] Comment on above: Performed By: #### 1 [id number], [id number] ####[facility] (DEFAULT)[address] [place] [address] 83524 UA Nitrite Negative Normal NEGATIVE [facility] Comment on above: Performed By: #### 1 [id number], [id number] ####[facility] (DEFAULT)[address] [place] [address] 71148 UA pH 6.5 Normal 5-8 [facility] Comment on above: Performed By: #### 1 [id number], [id number] ####[facility] (DEFAULT)[address] [place] [address] 96496 UA Protein Negative Normal NEGATIVE [facility] Comment on above: Performed By: #### 1 [id number], [id number] ####[facility] (DEFAULT)[address] [place] [address] UA Spec Grav <=1.005 Normal 1.001-1.035 [facility] Comment on above: Performed By: #### 1 [id number], [id number] ####[facility] (DEFAULT)[address] [place] [address] UA Urobilinogen 0.2 mg/dL Normal 0.2-1.0 [facility] Comment on above: Performed By: #### 1 [id number], [id number] ####[facility] (DEFAULT)[address] [place] [address] 75916 Breakpoint UA Normal [facility] Comment on above: Performed By: #### 1 [id number], [id number] ####[facility] (DEFAULT)[address] [place] [address] 96524 Urine Source Clean Catch Normal [facility] Comment on above: Performed By: #### 1 [id number], [id number] ####[facility] (DEFAULT)[address] [place] [address] 44733 XR Chest 2 Viewson 2 XR Chest [...] Bowen 12/21/21 9:38 pm Technologist: SRF,L Normal [facility] CARDIAC HUMAIRA ADMITon 021 CK [Catalytic activity/Vol] 117 U/L Normal 30-[address] [facility] Comment on above: Performed By: #### T SH, CMADM, CMP #### [facility] [address] [id number] Nelida Lily CK.MB [Mass/Vol] 1.16 ng/mL Normal <=2.37 [facility] Comment on above: Performed By: #### T SH, CMADM, CMP #### [facility] [address] [place] [address] Nelida Lily HSTROP <4.0 Normal 4.0-35.5 [facility] Comment on above: Result Comment: CUT- OFF POINTS HAVE BEEN ESTABLISHED BASED ON THE FOURTH UNIVERSAL DEFINITIONS OF MYOCARDIAL INFARCTION. THE UPPER REFERENCE LIMIT (URL) OF TROPONIN, DEFINED THE 99TH PERCENTILE OF cTnI DISTRIBUTION IN A REFERENCE POPULATION, HAS BEEN CONFIRMED THE DECISION THRESHOLD FOR SD DIAGNOSIS. Performed By: #### T SH, CMADM, CMP #### [facility] [address] [place] [address] Nelida Lily NGA 41.0 ng/mL Normal <=61.[address] [facility] Comment on above: Performed By: #### T SH, CMADM, CMP #### [facility] [address] [place], [place] [id number] Nelida Lily CBC AUTO DIFFon 02-23-2021 BASO # 0.1 103/ul Normal 0.0-0.[address] [facility] Comment on above: Performed By: #### C BC #### [facility] [address] [place] [address] Nelida Lily Basophils/100 WBC (Bld) 1.0 % Normal 0.2-2.0 [facility] Comment on above: Performed By: #### C BC #### [facility] [address] [place], [place] [address] Nelida Lily EO # 0.1 103/ul Normal 0.0-0.[address] [facility] Comment on above: Performed By: #### C BC #### [facility] [address] [place] [address] Nelida Lily Eosinophils/100 WBC (Bld) 2.2 % Normal 0.9-7.0 [facility] Comment on above: Performed By: #### C BC #### [facility] [address] [place] [address] Nelidajose Bautista Erythrocyte distribution width (RBC) [Ratio] 14.2 % Normal 11.0-15.0 [facility] Comment on above: Performed By: #### C BC #### [facility] [address] [place] [address] Nelida Lily Hematocrit (Bld) [Volume fraction] 40.6 % Normal 36.0-48.0 [facility] Comment on above: Performed By: #### C BC #### [facility] [address] [place] [address] Nelida Lily Hemoglobin (Bld) [Mass/Vol] 13.3 g/dL Normal 12.0-16.0 [facility] Comment on above: Performed By: #### C BC #### [facility] [address] [place] [address] Nelida Lily IG # 0.02 10e3/ul Normal 0.00-0.03 [facility] Comment on above: Performed By: #### C BC #### [facility] [address] [place] [address] Nelida Lily IG % 0.4 % Normal 0.0-0.5 [facility] Comment on above: Performed By: #### C BC #### [facility] [address] [place] [address] Neilda Lily LYMPH # 1.7 103/ul Normal 1.2-3.8 [facility] Comment on above: Performed By: #### C BC #### [facility] [address] [place] [address] Nelida Kimbleen Lymphocytes/100 WBC (Bld) 34.6 % Normal 20.5-60.0 [facility] Comment on above: Performed By: #### C BC #### [facility] [address] [place] [address] Nelidajose Bautista MANUAL DIFF REQ NO Normal [facility] Comment on above: Performed By: #### C BC #### [facility] [address] [place], [place] [address] Nelidajose Bautista MCH (RBC) [Entitic mass] 31.5 pg Normal 26.7-34.[address] [facility] Comment on above: Performed By: #### C BC #### [facility] [address] [place], [place] [address] Nelida Bautista MCHC (RBC) [Mass/Vol] 32.8 g/dL Normal 29.9-35.[address] [facility] Comment on above: Performed By: #### C BC #### [facility] [address] [place], [place] [address] Nelidajose Bautista MCV (RBC) [Entitic vol] 96.2 fL Normal 81.0-99.[address] [facility] Comment on above: Performed By: #### C BC #### [facility] [address] [place] [address] Nelida Kimbleen MONO # 0.4 103/ul Normal 0.3-0.[address] [facility] Comment on above: Performed By: #### C BC #### [facility] [address] [place], [place] [address] Nelidajose Kimbleen Monocytes/100 WBC (Bld) 7.1 % Normal 1.7-12.[address] [facility] Comment on above: Performed By: #### C BC #### [facility] [address] [place] [address] Nelidajose Kimbleen NEUT # 2.7 103/ul Normal 1.4-6.[address] [facility] Comment on above: Performed By: #### C BC #### [facility] [address] [place], [place] [address] Nelida Lily Neutrophils/100 WBC (Bld) 54.7 % Normal 43.0-75.[address] [facility] Comment on above: Performed By: #### C BC #### [facility] [address] [place], [place] [address] Nelida Lily Platelet mean volume (Bld) [Entitic vol] 9.8 fL Normal 9.5-13.[address] [facility] Comment on above: Performed By: #### C BC #### [facility] [address] [place], [place] [address] Nelida Bautista PLT 320 103/ul Normal 150-[address] [facility] Comment on above: Performed By: #### C BC #### [facility] [address] [id number] Nelida Bautista RBC 4.22 106/ul Normal 4.20-5.[address] [facility] Comment on above: Performed By: #### C BC #### [facility] [address] [id number] Nelida Kimbleen WBC 4.9 103/ul Normal 4.0-11.0 [facility] Comment on above: Performed By: #### C BC #### [facility] [address] [id number] [address] STROKE HEAD WOon 02-24-20 [...] 2021-02-23 13:[address] [facility] ER URINE PROFILEon 1 Bilirubin Ql (U) Negative Normal NEGATIVE The [facility] Comment on above: Performed By: #### E RUR #### [facility] [address] [place], [place] [address] Nelida Bautista Clarity (U) CLEAR Normal CLEAR [facility] Comment on above: Performed By: #### E RUR #### [facility] [address] [place] [address] Nelida Lily Color (U) LT. YELLOW Normal YELLOW [facility] Comment on above: Performed By: #### E RUR #### [facility] [address] [place], [place] [id number] Nelida Lily ERUAHD A micrscopic examination will be performed if indicated. Normal The [facility] Comment on above: Performed By: #### E RUR #### [facility] [address] [place] [address] Nelida Lily Glucose Ql (U) Negative Normal NEGATIVE The [facility] Comment on above: Performed By: #### E RUR #### [facility] [address] [place] [address] Nelida Lily Hemoglobin Ql (U) Negative Normal NEGATIVE The [facility] Comment on above: Performed By: #### E RUR #### [facility] [address] [place] [address] Nelida Lily Ketones Ql (U) Negative Normal NEGATIVE The [facility] Comment on above: Performed By: #### E RUR #### [facility] [address] [place] [address] Nelida Lily LEUKOCYTES Negative Normal NEGATIVE The [facility] Comment on above: Performed By: #### E RUR #### [facility] [address] [place] [address] Nelida Lily Nitrite Ql (U) Negative Normal NEGATIVE The [facility] Comment on above: Performed By: #### E RUR #### [facility] [address] [place] [address] Nelida Lily pH (U) 8.0 [pH] Normal 5-[address] [facility] Comment on above: Performed By: #### E RUR #### [facility] [address] [place] [address] Nelida Lily SPEC GRAVITY 1.020 Normal 1.005-<=1.025 [facility] Comment on above: Performed By: #### E RUR #### [facility] [address] [place] [address] Nelida Lily UA PROTEIN Negative Normal NEGATIVE/ TRACE The [facility] Comment on above: Performed By: #### E RUR #### [facility] [address] [place] [address] Nelida Bautista UR MICRO IND NOT INDICATED Normal The [facility] Comment on above: Performed By: #### E RUR #### [facility] [address] [place], [place] [id number] Nelida Bautista Urobilinogen Qn (U) 0.2 {Jose Carlos'U}/dL Normal 0.2 - 1. 0 [facility] Comment on above: Performed By: #### E RUR #### [facility] [address] [place], [place] [id number] Nelida Bautista POINT OF CARE GLUCOSEon 01-27 Glucose [Mass/Vol] 95 mg/dL Normal 74-106 The [facility] Comment on above: Performed By: #### P OCGLUC #### [facility] [address] [place], [place] [id number] Nelida Bautista PREG HCG QUALon 02-23-2021 , QUAL Negative Normal NEGATIVE The [facility] Comment on above: Performed By: #### P REG #### [facility] [address] [place] [address] Nelida Bautista PROF 14(COMP METB)on 021 Albumin [Mass/Vol] 3.6 g/dL Normal 3.5-5.0 The [facility] Comment on above: Performed By: #### T JOÃO LOCK, CMP #### [facility] [address] [place], [place] [id number] Nelida Bautista Albumin/Globulin [Mass ratio] 0.9 {ratio} Normal The [facility] Comment on above: Performed By: #### T JOÃO LOCK, CMP #### [facility] [address] [place], [place] [id number] Nelida Bautista ALP [Catalytic activity/Vol] 103 U/L Normal 38-[address] [facility] Comment on above: Performed By: #### T JOÃO LOCK, CMP #### [facility] [address] [place], [place] [address] Nelida Lily ALT [Catalytic activity/Vol] 35 U/L Normal 9-[address] [facility] Comment on above: Performed By: #### T JOÃO LOCK, CMP #### [facility] [address] [place] [address] Nelida Lily Anion gap [Moles/Vol] 13.3 mmol/L Normal [facility] Comment on above: Performed By: #### T JOÃO LOCK, CMP #### [facility] [address] [place] [address] Nelida Lily AST [Catalytic activity/Vol] 28 U/L Normal 14-[address] [facility] Comment on above: Performed By: #### T JOÃO LOCK, CMP #### [facility] [address] [place] [address] Nelida Lily Bilirubin [Mass/Vol] 0.2 mg/dL Normal 0.2-1.[address] [facility] Comment on above: Performed By: #### T JOÃO LOCK, CMP #### [facility] [address] [place] [address] Nelida Lily Calcium [Mass/Vol] 9.0 mg/dL Normal 8.4-10.2 The [facility] Comment on above: Performed By: #### T JOÃO LOCK, CMP #### [facility] [address] [place] [address] Nelida Lily Chloride [Moles/Vol] 108 mmol/L Critically high 98-[address] [facility] Comment on above: Performed By: #### T JOÃO LOCK, CMP #### [facility] [address] [place] [address] Nelida Lily CO2 [Moles/Vol] 25.8 mmol/L Normal 22.0-30.0 The [facility] Comment on above: Performed By: #### T JOÃO LOCK, CMP #### [facility] [address] [place] [address] Nelida Lily Creatinine [Mass/Vol] 1.00 mg/dL Normal 0.52-1.[address] [facility] Comment on above: Performed By: #### T JOÃO LOCK, CMP #### [facility] [address] [place], [place] [address] Nelida Lily EGFR-AF SOUTH AFRICAN >60 Normal >=60 The [facility] Comment on above: Performed By: #### T JOÃO LOCK, CMP #### [facility] [address] [id number] Nelida Lily EGFR-NON AF SOUTH AFRICAN >60 Normal >=[address] [facility] Comment on above: Performed By: #### T JOÃO LOCK, CMP #### [facility] [address] [id number] Nelida Lily Globulin (S) [Mass/Vol] 4.2 g/dL Normal [facility] Comment on above: Performed By: #### T JOÃO LOCK, CMP #### [facility] [address] [address] Nelida Lily Glucose [Mass/Vol] 95 mg/dL Normal 74-106 The [facility] Comment on above: Performed By: #### T JOÃO LOCK, CMP #### [facility] [address] [address] Nelida Lily Potassium [Moles/Vol] 4.1 mmol/L Normal 3.4-5.[address] [facility] Comment on above: Performed By: #### T JOÃO LOCK, CMP #### [facility] [address] [id number] Nelida Lily Protein [Mass/Vol] 7.8 g/dL Normal 6.1-8.2 The [facility] Comment on above: Performed By: #### T JOÃO LOCK, CMP #### [facility] [address] [address] Nelida Lily Sodium [Moles/Vol] 143 mmol/L Normal 137-145 The [facility] Comment on above: Performed By: #### T JOÃO LOCK, CMP #### [facility] [address] [address] Nelida Lily Urea nitrogen [Mass/Vol] 10.0 mg/dL Normal 7.0-17.[address] [facility] Comment on above: Performed By: #### T JOÃO LOCK, CMP #### [facility] [address] [place], [place] [address] Nelida Bautista Urea nitrogen/Creatinine [Mass ratio] 10.0 mg/mg Normal The [facility] Comment on above: Performed By: #### T JOÃO LOCK, CMP #### [facility] [address] [place], [place] [address] Nelida Bautista TSHon 02-23-2021 TSH 1.157 uIU/mL Normal 0.470-4.680 The [facility] Comment on above: Performed By: #### T JOÃO LOCK, CMP #### [facility] [address] [id number] Nelida Bautista TSH RANGE SEE BELOW Normal The [facility] Comment on above: Result Comment: <0.3 4 UIU/ml HYPERTHYROID 0.34-5.60 UIU/ml EUTHYROID >5.60 UIU/ml HYPOTHYROID Performed By: #### T JOÃO LOCK, CMP #### [facility] [address] [place], [place] [address] Nelida Bautista XR CHEST 1 Von 02-23-2021 [...] by: JANESSA SKINNER Date: 2021-02-23 13:53 Normal [facility] Encounters Encounter Date Encounter Type [...] Available Start: 09-23-2023 End: 09-23-2023 ambulatory MARYANN ZACEKRY Not Available Start: 08-22-2023 End: 08-22-2023 ambulatory MARYANN ZACKERY Not Available Start: 12-22-2021 End: 12-22-2021 [facility] Start: 02-23-2021 End: 02-23-[address] DOCTOR GOODSON Facility: Payers Date Payer Category Payer Unknown [id number] 1985 Unknown [id number] 2.16.84 [id number] 1987 Unknown [id number] 2.16.84 [id number] 1987 Unknown [id number] 2.16.84 [id number] 1987 Unknown [id number] 2.16.84 [id number] 1987 Unknown [id number] 2.16.84 [id number] 1987 Unknown [id number] 2.16.84 [id number] 1987 Unknown [id number] 2.16.84 [id number] 1987 Unknown [id number] 2.16.84 [id number] 1987 Unknown [id number] 2.16.84 [id number] 1987 Unknown [id number] 2.16.84 [id number] 1987 Unknown [id number] 2.16.84 [id number] 1959 Unknown [id number] Summary Purpose Family History No Family History Records FoundNo Family History Records FoundNo Family History Records FoundNo Family History Records Found Advance Directives No Advanced Directives Records FoundNo Advanced Directives Records FoundNo Advanced Directives Records FoundNo Advanced Directives Records Found Additional Source Comments INFORMATION SOURCE (unrecogn ized section and content) DATE CREATED AUTHOR 02/28/[address] [facility] DATE CREATED AUTHOR AUTHOR'S ORGANIZ ATION 12/24/2021 [facility] DATE CREATED AUTHOR AUTHOR'S ORGANIZ ATION 01/01/2022 [facility] DATE CREATED AUTHOR AUTHOR'S ORGANIZ ATION 02/18/2024 [facility] FOR RECORDS PERTAINING TO PATIENTS WHO ARE [...] BE BASED ON THE PRIMARY CLINICAL RECORDS. [facility] [employer] [facility] provides no warranty or guarantee of the accuracy or completeness of information in this document.
== END 2024-02-20 08:11 | disposition home or self-care (01) ==
LOC: FBCO 08:11
PROVIDERS: Visit Provider Obstetrics & Gynecology
DX: Z53.8 Procedure and treatment not carried out for other reasons (principal)
CPT/HCPCS: 59025

== ENCOUNTER 2024-02-24 07:29 | Outpatient (OUT) | payer BC, SELFPAY ==
--- OUTSIDE RECORDS SUMMARY | 2024-02-24 07:33 | XMS_ITS | CCD ---
Author Organization [facility] Team Providers Care Transfusion Aide Name Role Phone NAINAC, DR OLSON Primary Care Unavailable PAY, DR OLSEN Admitting Unavailable PAY, DR OLSEN Attending Unavailable ZIEBER, DR JANESSA Davila Consulting Unavailable PAY, DR OLSEN Consulting Unavailable SCHLACHTER, JARVIS Referring Unavailable SCHLACHTER, JARVIS Primary Care Unavailable CHODISETTHaydee, NERISSARAHMANYAM Consulting Unavail able CADEN CERNA Attending Unavailable CADEN CERNA Admitting Unavailable DAVIN GAGE Consulting Unavailable ZACKERY, MARYANN Attending Unavailable NEELAM, SHAWNA Attending Unavailable ZACKERY, MARYANN Attending Unavailable NEELAM, SHAWNA Attending Unavailable ZACKERY, MARYANN Attending Unavailable ZACKERY, MARYANN Attending Unavailable ZACKERY, MARYANN Attending Unavailable ZACKERY, MARYANN Attending Unavailable NEELAM, SHAWNA Attending Unavailable NEELAM, SHAWNA Attending Unavailable Problems [...] Range Facility Coding Summaryon 12-31-2021 [facility] IscqswlxNLp9rPa+PGhl YWQ+CN8UHOYrO76bzLDr aB8XT3uNXL0ANOYSAPED ZI9BKK7ksPG1NJsxC9Yy biAv PfezzDNrEK30FZp6FIJ7 tIsrSOdpeA6jmNOdF0m9 CgGgMX65fD09FErgJQUz HgA0WePeloggxERp R5vrZqLezPBeYci+PHRh YmxlIHdpZHRoPScxMDAl SpRpxYqvZY0fQo6yRAIy LWNvbGxhcHNlOiBj q1mkFYBzLTkqIV6amUqz B5MkpNR9TCVhb8x8Zo34 dHI+WFYbGIB2kAyoPZgt n435ZdZwf2iaKPW0 nZLgDJaoQDK7B80al0X8 EXGdVZIdNXA4iAP6tW1p yRjmzdvgX4XuwPKzDmK5 AIC1hHKjaC0xmWcg pbvpqW2lCak+D30IIQ8O XEEMCD2BAmc1I6RcRryu dHI+CZ76PPPkXF93wHIg tBHpr0aspHx7OlAl IFAgTVN8wLeqQSmxl6Xj LJEbS66zfBHzs6Z5FTDh aDyngGRdUuXnhPY3oK3v VCezvpduc2adnzsc Gsmax3ywxv38dA91M68z CLwrWTEfWDJ6NOKbSHJb lTddva1vmE6yIs1+IDxj x0yyg0ojhCo2UhEn XMPvicSjnFaeBRL8v3Bt Da32U8OjlDkxu4SqOwa6 xb19iEBzv9L7cNX7WJbf PAGtwD6eIItiGiB4 FAIvGdHkyI54sHUjLDmn Ur5pkUnrmHhxAZ7xFJQj eovqPLRpwE8wDOPrjBMv zNekEI3zYAGiejoj e870YfWzCLY8RYOtlDZp Z1ZhsW2jRnVfWPDwFPJx I8AdjVKmRCbaC388OOic XqF1XGUsdtIyZ8Cu XVYirDmgZsR7v7Y0Jj2J y3ItmtajJRS3GAylVYM8 VqK9FyNfNyG5V0WdWda9 MYQvyAqxMZ1tV1Jr BOHlnsxgyunpqVB0QHLe WYZbsF07uZItGEuaQk7r r1U2m135FPFbVPWrjO07 Kh1qyJswXTRqdBBM nZ3cfyudf1oldftxAsSa EESbBOf7TMs0AKTytPfc UrJoBMX4UhS5MFN7fXEn xH3boNjhveogkL2v Oyc+X96zpX4jIQW4SMR2 xrdkXVFevpUiED37AH04 E3NiUpsrdCCruQR+PGRp rbHrvUmoBL1xJiOl c4sji3AvTIggE2BlMXDv WPvqVgt4HKQgMJU5hBT9 hK9wEFMoZFwms1Q4xRG0 N8JkhzWraj0yr9bc GQJxBKzrP27voAQcn2N3 CGGakZU2UAXyuEydVsKi lQ29Hqc+AVTolGqsy1Hv Slrns1qlq2kepYd1 IjMwJSIgdmFsaWduPSJ0 q4DaLa35U14zYPvnTHEz AAKtYPFfAWHnvHuezg8a rG8uVy5+PGNvbCB3 zMN8xV1nYVMdBnZ1JRdx S724MzWrdCTvRvjeh6ox o0fefYq4QsRbXVMtxqGg oZdnHTA0w8QmBh65 F50jQSftILKiTWCyVWRn AQVdvHiuuw0htC6wKn0+ IT9wg8rmtq55bA77kQZ+ URAgPIO0eEkhPYih QGMbrP9bHZqaUjW9AJGc ZvJszQ20pHUjBVnaQk5x qFaweQfrLB0bPMZxqryo t316GsIfq1rzGONt jLMeZEyhZLZ8N45ko4Q3 YQGePIAaNPF9vVT2oN5p bGlnbjogbGVmdDsgdmVy oFjfODurCMkmR066 IHRvcDsnPlBhdGllbnQg QoAjUAy3B6YvRzt2BPNt tMquPX8ufBIqGWbnLl9k zAvxbZhnMN3bUWBg flerr925UhTuj4lfHPAa gEToXLmpEDG2Z81vy3Z3 VYSpFJSeFMP7jGO3sP9x bGlnbjogbGVmdDsg fxSbuMvnLCkzABovV950 IHRvcDsnPkJpcnRoIERh tWP0QH72GR27fIFcs1T9 qEA2A8XdHGNsespq bprsdRM7YBUuTKYzpT72 Hr8dxGxlRe1uZNUsIHU8 PJDtbVYcK2FzwN3lAxHh AWMuPIGyI6MkdHHc IEecD600QCadEnS5ZBKk xqDuD6WlYEAsmXcnHoP3 z0E8Fo4EJ4O2KV03LT45 yJRsb8H1yVV8S7Db MVHtnvjuwgxvsMT0TFAl MFTzcY63Gu2nhIuoBt2g EYHfOXP5JLIvpWIeO9Hr rU1uLgVkGXHoMDEx K4OdpGKxPCubY882YWts IsW5YYYgbbBrR9NgVZCc wYucDtP0n5J1Ig2WPRy8 XL97MY84xHRab4C4 tEO5F7HyQSBqozynslqs sJS7AGOeSLOrrI43Wp1x rDlwKk7nLMPsITK9XKGn sPFlR9UkiB7qPpZk XFOlOUWhJ8DyfVUpVFxx I363XClhHoX0IHGmzlFj L1NlDALbaNceQmN8z7C1 Dx1HVYNqGP52QXZ5 oDZ5RX13DZ84E7KoSdur dGFibGU+PHRhYmxlIHdp ZHRoPScxMDAlJyBzdHls KY5hBs6hWUFyRKTd jGgruVBfGwMmi4grMAVp XHogTK2vqEsrB7CocYN6 UYFqw7h1Fq62S82iQ5Tj dXA+DNDuyGL2wAH4 xN0kFwSnCpG7XWuhF572 NwRihFEeXyawq2fjl3wm iCn6GsR3JTMubqDztLmv SJB3z5AnMb70J05o IHdpZHRoPSIxNSUiIHZh qXhyda6qeX3cZp2+PGNv jRU6cMU0eV1lKdXwQsA2 UTdqQ082MoSckQUn Zsjor0ped5vjjXe5LsCk RMThwcOxeIrxUUI7l3Ew Ky82B0TfnSkea9CdGqz5 br49rBLcc1E2oMZ2 P8MoQNFhbjxbpNVomWoj UW5tQJUtaxgzVPEwaX4b CUCbK5w1NwPjYfN4EZsm N3GgeoN8OYDliSTm HOrsEPS5Z31cd4T9YYCx SQTsKOZ4pMX7tO5jzEtt bjogbGVmdDsgdmVydGlj IJczPVsaK882BEBm gQblSJSmoH9dTNDauYGp aFvvHF7cOWUhyqsnYjoU EZWDHQYAEBDLCkQIIU11 VQ26cHGqg0V6eIW0 T8GkBPForzybzauwlSU5 OYLmDSWwwP86dMSyCGsw Yl0nf0P5i882ADFrGOIp iU31Pv4ocDrwAZMl aFHRhJ6ilnkrm8yxbeht EuZcBZHhDCn6XKb1EDWk hApmTqTjPOX1FnG8ZHT5 mRFskO0lhVzdftim uQ3nUqs+MDEvMDgvMTk4 ODwvdGQ+DUItDMO1pFlg WPhfXGSnrS5oMOSkU0k4 ZgMcCwD4CTnvW3Wo DGLainguEr28qL6sGtGa HlC6VIxjT0UakdD5MAEd aFWyAXwqSZT9B45uv9Y9 FFThWEThTZA4dKG3 oE0bhDecbvcqaRSrzQkg xxFieGnsWNdqQEtvG084 OMVwmLcnDoK0KOhnUJJe NS71AQ63uUGwj3V3 xGL7S8DzDMNksfjjoxfh pAF4UFNhIGAibM78rPKa KZcyXr2tl2S8r876EZIm BBIsbX02Tb1avHtl AODnzDNNxZ7fxygqc1zd wfclBcGsUJLbSCz3QCk6 AUJfzIzlVkEpYJB0EsQ7 ZIH0vMFhsZ3grOvo qvqrbL5gDdo+RkVNQUxF BT61XF36iSCdr1X3bBM5 K8ClQIIgxudvajpckYT8 GYTmWXTzoK72uIKl ITnmMu5eb7A3o142GZZs OWApbE59Bf0vaHelTRKr mDXUxW8cpyauk8nqvjuj IbTgWYIrHOb6DSb2 MUCqeBmbWvIfVAL9QgL2 UGY7vLEbsB9roZtkxvqb gO5uPge+K7R9A9OoBjqs dHI+BO04SXNhEM20 qSQhtMHpe1fgcSo9JqFf OJOaJYN2mJkzZEftn9Ev CGMgH81qhMKfx3A6TGNk bGxhcHNlOyBlbXB0 jK0mBOzfsofmy9jvlzna Ccrns1avkl55cH77M48s IHdpZHRoPSIzMCUiIHZh gYaluv8qgQ3pQi7+ GDRvmMV7zMF3kH3yXnDc XdV1HBblU494AoYfkWFz Jrptl0cwx9mxlUf7IkUj JSIgdmFsaWduPSJ0 n0ZfMi52K98kMKolDVAk QDSvIUZoZENlcWytgd1h fD0sGc0+ZT6py6gswh02 dY54tRJ+PHRkIHN0 fUdqFWdwKGPpuL6lVSdh WyG2YGAjCqFaqU66wWNt HLbmVq1fkWmqmPgbUA2f SNTmjxgim373TsTl e3tzMLEoiODbCKhpEBP4 C27ag2N2SZJcQUEjSDG8 oRO8gM7kyWhskjxpdTOe dDsgdmVydGljYWwt MIxgD720KJJndRihTfPu wROlH4tnepTXOK3tYpiy dGQ+IRCxHKY2pNjcVNmf CYYsbY0dMNGeM3d0 UzFcGgO8XJrxB0AguhB5 PGUfsOFlIJQqmUFCfL0r amund7zqctjzDdEdEGCk JWg2GAc8WUYdpOdj XiCmDLQ2OgG6WEV6eMNh tI4enNlbfvcjpK0zCgw+ RklOOjwvdGQ+PHRkIHN0 sBhdEQnfSTYpzU7w SAExJ1k2HtJeVaK9RCvj V1DmqkK2EFVsbMYaUWRx nIWLnG8rxiace7ofkzbc CqYkBESzYRn7COh5 QYXdqUqgIpSoOON1EkG4 OYN7hFObfH0fqIurvjdq qP2oZxz+TVJOOjwvdGQ+ UAEpJDU2lGmiNHgc KMKpqH4pKYRiF5n0PsUs VtR3QGmmW2EcseV9AIIn cBOfKXFszVEGuP3akqrr k5gymehsYcEwEFIq GJa3RLq3JWZhhOnxDkHs FSV3RwW8ESE7wHVwvD5y kDcnfkbzqU9wRky+UGF5 QLT5MW21TM31D1Jh PjwvdGFibGU+PHRhYmxl IHdpZHRoPScxMDAlJyBz bOcjLE8aBs8kKSWnOYUo iAsjyZEaPvHnk3sf YXB (more content not included)... [facility] Coding Summary HTMLBase 64 DyglthikLLy7bRv+PGhl YWQ+KM3KUIEwT06ktFNg zG3CK8nMAV2FAPAOPMWX MG9SXI0ffTL5QNzzB7Sf biAv IhgwfYUcSE59SJe9WSA6 sMpnOXrejT3taDOcD1c8 RhBcNM51mX60LHkcMXTq MsP5OtQdlonfeLAu E4oxIcDcfBIwIcb+PHRh YmxlIHdpZHRoPScxMDAl FsAapKjmRX3tZn6pIWBl LWNvbGxhcHNlOiBj i9ccHXCqOWgzUX0jsWav A7RkwTT3WPAkh1b2Ag73 dHI+WKIkHTQ8eQwiFSpg m616SiQsz1evDDV3 qXWvRXssBON7G31yf7B3 YBRoXYHgRRV7dDX8xN3h pZiocphtJ3ScyMRnNzU5 WZP5aQTvpE8otLfw exnlrF3nUmf+Y61DGB0Y RNPLRD7TJpe7H8SsImgj dHI+KQ67KPTlVO49qAXe oABcc6bkgOr7SwOv HJKdDEB2kIufGPccq3Ry PUXtY66rlHSks4A9ZSBl vTmhvMGxTuGieDB3jQ0p JKkojkbpu5anpqsy Rnkmx2bfvp07lA59T05i YMmzSIBvAFA9WVXaLCPu yIbaqm4gsC5bPn7+IDxj a4igk0jjwBv6SdUy MYSdrbUcaWdjOVH9b8Ls Yh46W7PvxYwfv5MoWyy8 jc01xQYji9Q5xKV2MQyx VCSflR6lIZfhDkZ1 AXSsGuXmgX39hUBnZIvw Vz2trCtgmGdhYY8qKLFg ofkjCHChmJ9nAWSoaUQd eShwBE3kOFWidaxm s707IzMyNPL4YUCttSRp W6XyoR1jZeYsHSIaIOAo N3WepJJpHKbbR875IFxb AfZ8DARubqMoH8Ku HFWgaOcvUfJ0y6G0Oj8G u7OdtmmqUKO8MButQQA1 VsL1YyNiPmK0I7CrUgo2 QDOqnXisXN7oQ0Cy KJZqzbvifqivwPF7NHQe OWZzmE92lBKjLUloPo2y u3F8b634DSZjFJOgtK80 Ja9giPlsWMUxwSNF qD8dotkjw2dhoxtsNvCo YMGgEZm0QWp5FAZpzKrq QbArQVH7ItI7KRW5qVSz yB2bbNehdjhbuT6o Oyc+F26wtF3nTWD2WHK4 lvthKFGogvRzJK29TB29 B9LoEauqoBLqoUA+PGRp dqRebJwvSZ5cEqYj l3nct9OoOPlzN8GvHPTq XXqxSkw3DMNlZSH6qDH3 vC6aANNcBMfmk6E0cKV5 R5JiclWkxw6ti9km STHfAAtkI82pwNEsu9J4 IHBdjOW9YVPleGukZcXs bU22Iuj+FAEyyXtyw0Nu Bedme7fzs9ipmKp8 IjMwJSIgdmFsaWduPSJ0 d9JlRs52R23tUKnjZECk MBOwFPOuTTUrvEwylx6f kQ0mMp3+PGNvbCB3 cEJ3hA2yASIsKlX1LNjm G035OyDbxMEnUperw3nq o5abpCb2LkTrDUGhqlIo yVqeVFH4n9NcAe45 L44rCFdzIAGjHBVvUMCb OPAqvGeucj8cyH1zWo7+ FV3lm7vosd14eJ49sWY+ AVVcRSZ1mLoqATzy ZRHxhO9lZRxnImX5AYCz CjFdvW74kDSoNLboAy1a nGxvqRjhGF4sCICgmzqn q470CqJly7ajSEWk yDPpDFuzEOI9A42qk1J2 KONhBRDwVBE3qVJ2kD0h bGlnbjogbGVmdDsgdmVy eRahWXzaJTduV424 IHRvcDsnPlBhdGllbnQg GpCvLAr6Z8DsEac9CFFw lQdxTW5kuYVlYGqtJu5j cPlrxBikSW5xMXYe dqwuq088WvFct1xwOFQh yBMaNWhdHUG2P60kr5Z0 YXRmGPVwJCL1pNF7uG7k bGlnbjogbGVmdDsg pqDnhMydZQkoNOyuP041 IHRvcDsnPkJpcnRoIERh gOX3QP90IB12vFZcn3C8 zQD1J6FiRTQwwkka knujhWX6WHXoEYOfwS26 Qo0lcLseVo0vFYRiYMW0 GEXyaSZrE8HykC7kBiOy OJGpZPZuJ6TfdLNp OUotH708ZEytVuN8KHGn auZpX0WaEYVbvJluYhF0 k5O8Xd5JD8L0ZE09BG27 tYAcp6Z2tTF9V6Nm OTWyhsxfxxhdqKN6KQZn WHRjmM49No7zyBypIs1f JOJwKYD1ZPYjzWSeK8Uk jJ8dMpYyJIVtIGZt M1HmcZDqVZpuQ123JGrc HbE6SBWxpsZeL1CmCCGe xKtpXxY8h8D5Sj5RAMw7 QE17BW14dVMpt1P7 jHU6S9VbNZGmseppyrpn wWR5GOMkZFMynG80Ww5y eWdpLp6vDFRsMUC9IWYk uGCmX6ScbL3qEgFq HWUsWIJrO1BehUMuRWym K117RDayKbF1GJPbedFm B2XfGMWotGvjLsM3a3R8 Ly3KYNRsAW39WYC3 pUB2RS30KB38S6FiDbcn dGFibGU+PHRhYmxlIHdp ZHRoPScxMDAlJyBzdHls JP9eAz8cAWXpZMPp iLngwQYqDlMfi0hrWRFl GDhpRA6udKbsJ8TntKT0 LYRbu5j0Hc53D96uT5Nu dXA+LTAcbVS7rYW5 oO0lRoGvYxI5FSeeJ244 LmDgnLBoUmtdp5quk5ls qPd4SmV2ITTgjqMjtCmc SOZ1d6GzEn93S78m IHdpZHRoPSIxNSUiIHZh gGducl9xsB2mNg5+PGNv tDT4qLG0tZ8wVeFlGjJ8 DVraI834MpRnvBFb Lkzqm0viu2mgoNp7EyAa YLSerzFzuBqqEYF4j3Fy Cn54Y5UqpPbvm3WcPlr3 xe67mNZkk6S6tJN5 V5CfIHNbcnrwpBDhrVzc YE7hIFFnfdoxHHGafO6m WTHrK4a4VlDoSmW9DLpt K2GhscD0OBJsiJRb EVisILN9T65th1I1LDVe VYYyRTT8zEI8rF0nbIdj bjogbGVmdDsgdmVydGlj PElnWYwhS195ZRTb gFdrVRAfbC4vRXQsvLEj xLukYZ3oCUKbwiopUmgN HBJYITINLMMQYnWLWS65 VY68hNTwk8D7cWT4 W3BuXTVqzszlrnjwjVQ6 AGBdOJUbuT20dSHmKIwe Kg3ng6B1g850QRDpFHBt eN05Mg8qrWuqCMNm lDBRgB3oafbii6nwbxbg NgAgPWWjMIl7XSm1QTDy nXbkWvVmTKR5RlQ4GFD1 eYElvA7qaLiaagbp jJ8vXyb+MDEvMDgvMTk4 ODwvdGQ+BKTnLLG3lCah LImqLHGrhY1nLFDeJ7c2 MpMcMxB6WBprS3Oh JVMxurwiCr26aZ6uHrTr UwH4QGbdW4NyoxD3AJWu tXGiKFjjPZM8G32dj5M8 BKPuRVFxENP6cEN9 cE7siBjakxjgsWUkyCvw spXnhAbgRBieZQvzQ106 NRZrhGrnEbF3WWwfYTLr JW86LQ84jOTon3D3 nNT3R5NcASWfdjsdnurb xWJ7NJHgNBWauN01wGWc TQtiTe5tt9B5u531PSKk HVDzfK29Cx4ccNdp TLIvgZSVtA3ofiyyq2dm klchDeBfKEPbZHu1BNk3 HGGbxScmIkMvMCN8SvT6 MTX7bOYuyP5woRkc wkkgjW9gGuj+RkVNQUxF UJ15JZ16lRKcm8Y6zEV0 H1KrDBFosexzolkuqCU4 QAUcMOXqgK30tTIz UHjpJu0ro5P1m861RHBb XAHozO19Zi5xhZseKXPn jMIYlB6hahics9lrrhni TxQwXMFwYEx2JAf9 RWGvyPdgXhRzHNY2DzT8 ARX4jIJvyW7vjKbluwgi wY5lOdh+NF4cgegxtaL4 PX30ZO55B6QnLygt dGFibGU+PHRhYmxlIHdp ZHRoPScxMDAlJyBzdHls LN5rMl8fYXWrPFEhaYdx xTGnBkOfy5ixVIUq LSxxUR6crBezE8BzlKE2 WZWob7m5Qu23D70iK5Mg dXA+OFMvfSP9iXK5iV6m KwIuTfI0AGeaS253 IvQmwCKsCjbys7qrr4dj xBq0IiRhSJBxkyCrkHcd KYL4j1BoXo55N55gRPhp ZHRoPSIyMCUiIHZh rZjqpl2ffN1kHk5+PGNv qNT9oAM2gC3wJbXnOxU9 NMbdB811DvYxvSIyZccw M44yY2NulVN+PHRy Fkg3BHCxwPqwBL0ayOOb AHxuBh9wIMI0GqHwQdVn TTgkL7HkVUDsqalokcmx oVC2VXCvNXJoyZ02 Jg2ilUwsLe6aYVIbBXD7 RANgwLNjX9BgmX6bEbNq KRZrENTbC6JxkNDeZXzg Q570NBvaKhF3DCGg tpGlR9QkRKPnrHnzSuK1 i4T6Vo8NmTatpHVaIC9u KyLcPEo6Y1GdDei1URWs uXkpNP1wxQBbMAuw Um0yaLnpwAkbOS7aOMJr hdzmr112RtAvq5meNJDu nUVhQOnvMLT5S78ra0O8 ESYgSMRlTCU1kGD4 pU7rvMwvnzqsxEPqkHxj hyReiXkxASxfFBjvM801 AULunUylMxWWFuv9M0Kg Sib5RQXtoVkkET6k fEVzKStuQz5clPdbsHoz LV7rADNbstzhj373WnWk l5nuTYSbdXTdOOioVVB4 M25yv3R8XKGoYTKd APN6mIJ2hT2nzIntupzk bGVmdDsgdmVydGljYWwt VZtsX745LUZdmZclCk2Q Pho3C2EyTkk5KNCx mVjiVX2ilCYeVAceSq4m hXjloUkfLQ8lRIPshvmq p770UrRzi3zcDKHlwTHj SEegCPK3S62lp5D6 MBCzLYIoRFH0yQF1hA6n bGlnbjogbGVmdDsgdmVy wHzzNOydFZtvB061ZQJv cDsnPlBheWVyOjwv dGQ+JW03cg43U0OhJlcy Zkk7CLTlIDG1iNR7oS5p HGDpMMmky9G7pSC0L9Oe daKddb1vv5iwJIBw ZTo (more content not included)... [facility] Ambulance Noteon 12-26-2021 Ambulance Note [id number] [id number] [facility] ED Clinical Summaryon 2021 ED Clinical Summary [facility] - Emergency Department [address] [place], [place] [id number] ED Clinical Summary PERSON INFORMATION Name: LOCO HICKS Age: 36 Years Sex: FEMALE : 1985 MRN: Acct#: Visit Reason: Dizziness; FACIAL NUMBNESS, DIZZINESS Arrival: 12/21/2021 18:23:41 Discharge: 12/22/2021 00:02:00 LOS: 000 05:39 Check In: 12/21/2021 18:23:41 Checkout:12/22/2021 00:02:00 Address: [address] [place] [id number] PCP: Provider, None PROVIDER INFORMATION Provider Role Assigned Unassigned Alvin Bryan ED Provider 12/21/2021 18:26:52 12/21/2021 18:30:20 Sanjuana Ramirez PRINT FINISHER Nurse 12/21/2021 18:29:17 12/21/2021 23:14:12 MARIAJOSE EDEN ED PA 12/21/2021 18:30:25 Kerline Caratgena PRINT FINISHER Nurse 12/21/2021 21:46:32 Kerline Merrill RN ED [...] - pharynx pink and moist. NECK: -Supple ([id number]): non-tender. CARD: -Rate and rhythm: Regular -Edema: No -Calf pain: No RESP: -Respiratory effort and chest excursion with respirations: Normal -Breath sounds equal bilaterally: Clear -Wheezes: No -Rales: No BACK: -Signs of pain with movement: No ABD: -Distended: No (more content not included)... [facility] ED Patient Education Noteon 12-22-2021 ED Patient Education Note Education Materials [facility] ED Patient Summaryon 022 ED Patient Summary [facility] - Emergency Department [address] [place], [place] [id number] PATIENT DISCHARGE INSTRUCTIONS Patient Information Name: LOCO HICKS Age: 36 Years Date of : 1985 Reason For Visit: Dizziness; FACIAL NUMBNESS, DIZZINESS Arrival Time: 12/21/2021 18:23:41 Primary Care Physician: Provider, None Attending Physician: Alvin Bryan Comment: Visit Diagnosis: Diagnoses This Visit Dizziness ([id number]) Paresthesias (R20.2) Visual disturbance (H53.9) Prescription Information: If you have been given a prescription for narcotics, seek immediate medical attention if you have any difficulty breathing or any sudden status changes such as confusion and sleepiness. If you or anyone you know is experiencing suicidal thoughts, mental health, alcohol and/or drug addiction problems; contact the [facility] 17/02 Crisis Hotline -Text 4HEDI to 792996. If you received any narcotics, sedation, or [...] and treatment you received today in the [facility] Emergency Department were for an urgent problem and are not intended as complete care. It is important for you to follow up with a doctor, nurse practitioner, or physician?s surgery assistant for ongoing care. If your symptoms [...] so we can reach you if necessary. [facility] has provided you with a complete list of medications post discharge. Please inform your sas etl developer/provider of your visit and for further instruction [...] for Disease Control and Prevention March 2014 [facility] MRI BRAIN W WO CONTRASTon MRI [...] Ean Cedillo MD 12/22/21 Final result Normal [facility] MRI CERVICAL SPINE W WO CONT [facility] 12-22-2021 MRI CERVICAL SPINE W [...] Ean Cedillo MD 12/22/21 Final result Normal [facility] [id number] 12-22-2021 SARS-CoV-2 (COVID-19) RNA SHELBI+probe Ql (Unsp spec) Not detected Normal NOTDET [facility] Comment on above: Result Comment: Rapid [...] management decisions. Fact sheet for Healthcare Providers: https://www.fda.gov/media/156824/download Fact sheet for Patients: https://www.fda.gov/media/379881/download Methodology: Isothermal Nucleic Acid Amplification Performed By: #### C OVRB #### [facility] [place] [id number] Hyperbaric Tech: Campbell Simmons MD SARS-CoV-2 (COVID-19) PCRon 12-22-2021 Employed in healthcare? No Invalid Interpretation Code [facility] Comment on above: Performed By: #### 6 [id number] ####[facility] (DEFAULT)[address] [place] [address] Group care resident? No Invalid Interpretation Code [facility] Comment on above: Performed By: #### 6 [id number] ####[facility] (DEFAULT)[address] [place] [address] In ICU? No Invalid Interpretation Code [facility] Comment on above: Performed By: #### 6 [id number] ####[facility] (DEFAULT)[address] [place] [address] status? Not Invalid Interpretation Code [facility] Comment on above: Performed By: #### 6 [id number] ####[facility] (DEFAULT)[address] [place] [address] SARS-CoV-2 (COVID-19) RNA SHELBI+probe Ql (Unsp spec) Not detected Normal Not Detected [facility] Comment on above: Result Comment: Perf ormed by PCR methodology. Performed By: #### 6 [id number] ####[facility] (DEFAULT)[address] [place] [address] SARS-CoV-2 (COVID-19) RNA SHELBI+probe Ql (Unsp spec) No Invalid Interpretation Code [facility] Comment on above: Performed By: #### 6 [id number] ####[facility] (DEFAULT)[address] [place] [address] Symptomatic as defined by CDC? No Invalid Interpretation Code [facility] Comment on above: Performed By: #### 6 [id number] ####[facility] (DEFAULT)[address] [place] [address] Transfer Noteon 12-22-2021 Transfer Note medication list sent with patient, Complete ED chart sent with patient. CD and med list sent w. patient to Hospital [Electronically Signed on: 12/22/2021 00:05 EDT] Nadya Garcia [Verified on: 12/22/2021 00:05 EDT] Nadya Garcia Normal [facility] Transfer Note [id number] [facility] [id number] [facility], [facility] called for transport to [facility]. Willie stated will call when back in area from [facility] Trip. [Electronically Signed on: 12/21/2021 22:14 EDT] Nadya Garcia [Verified on: 12/21/2021 22:14 EDT] Nadya Garcia [facility] .Auto Diff 1on 12-21-2021 Auto [place] % 7 % Normal 1-12 [facility] Comment on above: Performed By: #### 7 960861, [id number], 4937434, 37306159, 8447873, 5790000, 7420101686, 7269731, [id number] ####[facility] (DEFAULT)[address] [place] [address] 09506 Baso Abs# 0.0 x10 Normal 0.0-0.2 [facility] Comment on above: Performed By: #### 7 853970, [id number], 2902959, 43989729, 8813323, 8418620, 1405192043, 9159179, [id number] ####[facility] (DEFAULT)[address] [place] [address] Basophils/100 WBC (Bld) 0.4 % Normal 0.2-2.0 [facility] Comment on above: Performed By: #### 7 986066, [id number], 4271684, 11934432, 4686387, 2314720, 6291143765, 8680128, [id number] ####[facility] (DEFAULT)[address] [place] [address] 59624 Eos Abs# 0.1 x10 Normal 0.0-0.4 [facility] Comment on above: Performed By: #### 7 592830, [id number], 2536480, 68827526, 0985949, 8940435, 5116745712, 3124433, [id number] ####[facility] (DEFAULT)[address] [place] [address] 74780 Eosinophils/100 WBC (Bld) 0.7 % Low 0.9-4.0 [facility] Comment on above: Performed By: #### 7 143170, [id number], 0607503, 80501806, 1869250, 7676394, 5094780300, 4725495, [id number] ####[facility] (DEFAULT)[address] [place] [address] 29549 Lymph Abs# 3.2 x10 High 1.3-2.9 [facility] Comment on above: Performed By: #### 7 641034, [id number], 8775651, 85033113, 6743875, 7709763, 1709972055, 1056581, 3036348834 ####[facility] (DEFAULT)[address] [place] [address] 53189 Lymphocytes/100 WBC (Bld) 40 % Normal 14-48 [facility] Comment on above: Performed By: #### 7 417725, [id number], 6485401, 45185921, 8393228, 1774163, 2462108585, 8256746, 4492470269 ####[facility] (DEFAULT)[address] [place] [address] 38376 Sauk Abs# 0.6 x10 Normal 0.0-0.8 [facility] Comment on above: Performed By: #### 7 077880, 7350043071, 2160783, 74840999, 7951548, 8719395, 7803259743, 6475932, 0771431936 ####[facility] (DEFAULT)[address] [place] [address] 98875 Neut Abs# 4.3 x10 Normal 1.5-9.2 [facility] Comment on above: Performed By: #### 7 101893, 9211321036, 1978583, 89516396, 8347836, 8978631, 0231500392, 3507401, 2599540013 ####[facility] (DEFAULT)[address] [place] [address] 51312 Neutrophils/100 WBC (Bld) 53 % Normal 44-88 [facility] Comment on above: Performed By: #### 7 617641, 1860348733, 5685993, 71919774, 5401483, 5249142, 2074707133, 2458668, 9864287641 ####[facility] (DEFAULT)[address] [place] [address] 17788 CBC w/ Auto Diffon 2 Erythrocyte distribution width (RBC) [Ratio] 14.3 % Normal 11.5-15.0 [facility] Comment on above: Performed By: #### 7 748302, 6997728846, 6081014, 69615275, 7184035, 8508754, 1638482081, 7629554, 4905958164 ####[facility] (DEFAULT)[address] [place] [address] 00420 Hematocrit (Bld) [Volume fraction] 42.3 % High 33.7-40.4 [facility] Comment on above: Performed By: #### 7 717090, 3878575532, 0342104, 71692377, 5546442, 8646580, 9260703903, 0731665, 1375356368 ####[facility] (DEFAULT)[address] [place] [address] 09385 Hemoglobin (Bld) [Mass/Vol] 13.7 g/dL Normal 11.3-15.9 [facility] Comment on above: Performed By: #### 7 241368, 0115627616, 2111408, 91389125, 0885713, 4225575, 2709285051, 4103928, 2506091009 ####[facility] (DEFAULT)[address] [place] [address] 07349 Instr WBC 8.2 x10 Invalid Interpretation Code [facility] Comment on above: Performed By: #### 7 039748, 0296582648, 6487128, 73357834, 3277383, 6870232, 4942659557, 2007461, 6433788239 ####[facility] (DEFAULT)[address] [place] [address] 38360 Man Diff? Auto Normal [facility] Comment on above: Performed By: #### 7 609317, 3766625533, 9299464, 28765711, 7727721, 9478044, 6090184758, 7679308, 2150687961 ####[facility] (DEFAULT)[address] [place] [address] 01411 MCH (RBC) [Entitic mass] 31 pg Normal 24-34 [facility] Comment on above: Performed By: #### 7 612263, 9615679787, 0871789, 77511516, 6918368, 8980377, 5131714426, 2558481, 0874485516 ####[facility] (DEFAULT)[address] [place] [address] 50961 MCHC (RBC) [Mass/Vol] 32 g/dL Normal 26-37 [facility] Comment on above: Performed By: #### 7 628888, 7372757622, 0867988, 80137916, 1290291, 9974489, 6015727353, 3171744, 1440876646 ####[facility] (DEFAULT)[address] [place] [address] 09744 MCV (RBC) [Entitic vol] 96 fL Normal 81-100 [facility] Comment on above: Performed By: #### 7 472568, 0056551201, 6860018, 67564725, 1488609, 1384697, 6167240193, 0268451, 0288679275 ####[facility] (DEFAULT)[address] [place] [address] 67489 Platelet 363 x10 Normal 138-427 [facility] Comment on above: Performed By: #### 7 472102, 9597651416, 0516087, 56996571, 8937564, 4476148, 1084033743, 1654933, 1104446640 ####[facility] (DEFAULT)[address] [place] [address] 13667 Platelet mean volume (Bld) [Entitic vol] 10.2 fL Normal 6.3-10.2 [facility] Comment on above: Performed By: #### 7 948590, 1473157321, 8905011, 32114850, 2381962, 5185413, 6016696415, 9443829, 2638624266 ####[facility] (DEFAULT)[address] [place] [address] 06739 RBC 4.42 x10 Normal 3.70-5.30 [facility] Comment on above: Performed By: #### 7 435518, 5088790021, 6246584, 14972289, 6676353, 8521571, 2964984179, 2369299, 7569079826 ####[facility] (DEFAULT)[address] [place] [address] 13009 WBC 8.2 x10 Normal 3.5-10.5 [facility] Comment on above: Performed By: #### 7 722395, 5245212257, 0661825, 77641261, 5025827, 3308078, 0191871284, 5718412, 0459385439 ####[facility] (DEFAULT)[address] [place] [address]8364 [facility] [facility] Standardon 12-21-2021 eGFR Non AA 57 mL/min/1.73m2 Invalid Interpretation Code [facility] Comment on above: Performed By: #### 7 075903, [id number], 1406469, 08566172, 1478073, 9651465, 4723509908, 9593616, [id number] ####[facility] (DEFAULT)[address] [place] [address] 38138 eGFR AA >60 Invalid Interpretation Code [facility] Comment on above: Result Comment: Certified Detention Deputy nathalia Kidney disease could be indicated at eGFRs of less than 60 ml/min/1.73m2. Kidney Failure is indicated at less than 15 ml/min/1.73m2 Performed By: #### 7 415750, [id number], 2058520, 97702462, 0710970, 5862000, 5103739476, 2494297, [id number] ####[facility] (DEFAULT)[address] [place] [address] 19481 Albumin [Mass/Vol] 4.7 g/dL Normal 3.5-5.0 [facility] Comment on above: Performed By: #### 7 661413, [id number], 0046005, 13908864, 1649689, 2614806, 8591510717, 8156863, 8797622529 ####[facility] (DEFAULT)[address] [place] [address] 43023 Albumin/Globulin [Mass ratio] 1.1 {ratio} Low 1.4-2.6 [facility] Comment on above: Performed By: #### 7 513416, [id number], 6132241, 08723933, 2828165, 9201389, 6274187074, 5683253, 4238973585 ####[facility] (DEFAULT)[address] [place] [address] 71252 Alk Phos 99 IU/L High 32-91 [facility] Comment on above: Performed By: #### 7 640618, [id number], 2593351, 62456518, 9647677, 8113517, 9878552786, 8175932, 7645558790 ####[facility] (DEFAULT)[address] [place] [address] 29830 ALT [Catalytic activity/Vol] 32.0 U/L Normal 14.0-54.0 [facility] Comment on above: Performed By: #### 7 563762, [id number], 2250098, 09102550, 4860019, 4440352, 9275010697, 8044593, 7489059182 ####[facility] (DEFAULT)[address] [place] [address] 50449 Anion gap [Moles/Vol] 23.0 mmol/L High 5.0-19.0 [facility] Comment on above: Performed By: #### 7 308259, 8557874827, 9744457, 53911566, 1417843, 5705672, 6671361597, 5622127, 0476542449 ####[facility] (DEFAULT)[address] [place] [address] 59402 AST [Catalytic activity/Vol] 41 U/L Normal 15-41 [facility] Comment on above: Performed By: #### 7 258612, [id number], 0607172, 15155541, 6928003, 0409166, 5286560193, 7176361, 0440590850 ####[facility] (DEFAULT)[address] [place] [address] 11166 Bili Total 0.4 mg/dL Normal 0.3-1.2 [facility] Comment on above: Performed By: #### 7 563149, 5244866698, 4282125, 38914213, 4951175, 1943832, 2867799498, 5569878, 9670760267 ####[facility] (DEFAULT)[address] [place] [address] 80594 Calcium [Mass/Vol] 10.2 mg/dL Normal 8.9-10.3 [facility] Comment on above: Performed By: #### 7 132870, 6465325777, 4585490, 12616707, 3498730, 7697700, 8925921721, 0530864, 8398994798 ####[facility] (DEFAULT)[address] [place] [address] 50723 Chloride [Moles/Vol] 96 mmol/L Low 101-111 [facility] Comment on above: Performed By: #### 7 897816, 1508485509, 9410534, 01028069, 3578649, 3644488, 1813258787, 5133614, 4157274392 ####[facility] (DEFAULT)[address] [place] [address] 64534 CO2 [Moles/Vol] 24 mmol/L Normal 21-32 [facility] Comment on above: Performed By: #### 7 155968, 5327983919, 4147994, 01916323, 8312980, 8014875, 2073192706, 8705745, 9980446503 ####[facility] (DEFAULT)[address] [place] [address] 71305 Creatinine [Mass/Vol] 1.10 mg/dL Normal 0.60-1.30 [facility] Comment on above: Performed By: #### 7 390990, 2646906455, 8808594, 02661634, 4356989, 7348900, 4920535372, 5478798, 3881456551 ####[facility] (DEFAULT)[address] [place] [address] 56039 Globulin (S) [Mass/Vol] 4.2 g/dL Normal 1.5-4.3 [facility] Comment on above: Performed By: #### 7 151142, 2989355040, 6305064, 55485886, 3093099, 1120488, 5594845556, 5244421, 2164194436 ####[facility] (DEFAULT)[address] [place] [address] 80021 Glucose [Mass/Vol] 97.0 mg/dL Normal 74.0-118.0 [facility] Comment on above: Performed By: #### 7 560257, 4681656921, 0416174, 81386301, 3875666, 9534352, 1672965251, 5527190, 3651706752 ####[facility] (DEFAULT)[address] [place] [address] 90927 Osmolality 278 mOsm/L Invalid Interpretation Code [facility] Comment on above: Performed By: #### 7 899670, 2865263680, 3412080, 91276400, 1303009, 3842419, 7430538875, 2231071, 1453519650 ####[facility] (DEFAULT)[address] [place] [address] 02635 Potassium [Moles/Vol] 3.5 mmol/L Low 3.6-5.1 [facility] Comment on above: Performed By: #### 7 925918, 5286455864, 1868415, 19184034, 4512465, 6339479, 0485985466, 4370143, 1857135044 ####[facility] (DEFAULT)[address] [place] [address] 82546 Protein [Mass/Vol] 8.9 g/dL High 6.5-8.1 [facility] Comment on above: Performed By: #### 7 430050, 3733434713, 4437775, 52588076, 7543114, 3012837, 6944912536, 9385561, 9866784677 ####[facility] (DEFAULT)[address] [place] [address] 53049 Sodium [Moles/Vol] 139.0 mmol/L Normal 136.0-144.0 [facility] Comment on above: Performed By: #### 7 052422, 6895799340, 2955201, 54864521, 7982939, 3939312, 0237061666, 7559690, 1361656683 ####[facility] (DEFAULT)[address] [place] [address] 12889 Urea nitrogen [Mass/Vol] 15 mg/dL Normal 8-26 [facility] Comment on above: Performed By: #### 7 723577, 0800803580, 6996597, 47018553, 8375628, 0123252, 7855224924, 7742515, 6419073064 ####[facility] (DEFAULT)[address] [place] [address] Urea nitrogen/Creatinine [Mass ratio] 14.0 mg/mg Normal 4.6-16.2 [facility] Comment on above: Performed By: #### 7 712540, 7496755830, 9081411, 24563867, 3624383, 3022234, 5509542985, 6055030, 1904155358 ####[facility] (DEFAULT)[address] [place] [address] Head or Brain w/o Contras ton [...] 12/21/21 9:19 pm Technologist: Erwin CHAUDHARI Normal [facility] D-Dimeron 12-21-2021 D-Dimer 0.49 mg/L FEU Normal 0.19-0.50 [facility] Comment on above: Result Comment: The [...] Liver cirrhosis ? Performed By: #### 7 074224, 6009966981, 5483912, 04632233, 8524180, 5636003, 6936070791, 6274192, 5808948021 ####[facility] (DEFAULT)[address] [place] [address] ED Note - Otheron 12-21-2021 ED Note - Other Neurology called back from [facility], on phone with Mariajose LLANES [Electronically Signed on: 12/21/2021 21:29 EDT] Nadya Garcia [Verified on: 12/21/2021 21:29 EDT] [facility] for consult for Mariajose LLANES [Electronically Signed on: 12/21/2021 21:12 EDT] Nadya Garcia [Verified on: 12/21/2021 21:12 EDT] Nadya Garcia [facility] ED Note - Physicianon 2021 ED [...] - pharynx pink and moist. NECK: -Supple (estk-fp-clalj): non-tender. CARD: -Rate and rhythm: Regular -Edema: [...] I di (more content not included)... Normal [facility] ED Note-Nursingon 12-21-2021 ED Note-Nursing Manager Staffing assumed care for pt at 2124. Pt had fluids running at that time. Will continue to give the rest of the liter per VO from MARIO ALBERTO. MARIO ALBERTO also stated that after speaking with neuro, pt is to be transferred to [facility] for MRI and further evaluation. Normal [facility] Ethanol.on 12-21-2021 Ethanol Level 9.0 mg/dL High 0.0-5.0 [facility] Comment on above: Performed By: #### 2 [id number] #### [facility] (DEFAULT) [address] [place] [address] Extra Morgan 12-21-2021 Tube Collected Yes Invalid Interpretation Code [facility] Comment on above: Performed By: #### 2 403579, [id number] #### [facility] (DEFAULT) [address] [place] [address] Extra Redon 12-21-2021 Tube Collected Yes Invalid Interpretation Code [facility] Comment on above: Performed By: #### 7 542181, 2288689003, 7827118, 83258757, 1534134, 8550853, 4324594490, 4250813, 4873680080 #### [facility] (DEFAULT) [address] [place] [address] 25862 Magnesiumon 12-21-2021 Magnesium [Mass/Vol] 2.02 mg/dL Normal 1.80-2.50 [facility] Comment on above: Performed By: #### 7 410137, 4377080130, 2745959, 41788720, 9019694, 8277565, 8909674115, 9116611, 7873452968 ####[facility] (DEFAULT)[address] [place] [address] 12201 PTon 12-21-2021 INR Coag (PPP) [Relative time] 0.94 {INR} Normal 0.91-1.11 [facility] Comment on above: Performed By: #### 7 202486, 0159397969, 6339746, 26604178, 7333012, 3917870, 3813666270, 4867241, 0919291636 ####[facility] (DEFAULT)[address] [place] [address] PT 10.2 second(s) Normal 9.7-11.8 [facility] Comment on above: Performed By: #### 7 090823, 4593897001, 8524421, 39752969, 7195962, 3691610, 2265354951, 6566746, 4091777451 ####[facility] (DEFAULT)[address] [place] [address] 27962 PTTon 12-21-2021 PTT 26 second(s) Normal 25-35 [facility] Comment on above: Performed By: #### 7 390971, 9294639583, 8901399, 84127158, 7618701, 0013181, 8079874237, 2882763, 1722535399 ####[facility] (DEFAULT)[address] [place], [place] [address] Test Urine 1 U Preg Negative Normal [facility] Comment on above: Performed By: #### 1 201516333, [id number] ####[facility] (DEFAULT)[address] [place] [address] 41665 U Preg Internal Control Pass [facility] Comment on above: Performed By: #### 1 [id number], [id number] ####[facility] (DEFAULT)[address] [place] [address] 67680 Salicylateon 12-21-2021 Salicylate Lvl <4.0 Normal 0.0-30.0 [facility] Comment on above: Result Comment: Sali cylate ranges less than 30 mg/dL are considered to be therapeutic. Levels greater than 30 mg/dL are considered toxic and levels greater than 60 mg/dL may be lethal. Performed By: #### 2 645024, [id number] #### [facility] (DEFAULT) [address] [place] [address] 97014 TnI HSon 12-21-2021 Troponin I High Sensitivity <2 Normal <=15 [facility] Comment on above: Result Comment: Male Baseline Delta 1Hr (Note pg/mL=ng/L) <20pg/mL 50-60% >20pg/mL 20% Female Baseline Delta 1Hr <15pg/mL 50-60% >15pg/mL 20% Other Baseline Delta 1Hr <18ng/mL 50-60% >18ng/mL 20% ([employer] Guidelines February 2018) Performed By: #### 7 849218, 7569745649, 5177782, 87748559, 1793121, 0751648, 1814168759, 8742512, [id number] ####[facility] (DEFAULT)[address] [place] [address] 01737 Triage Panel 12on 12-21-2021 Triage Internal Control Pass Normal [facility] Comment on above: Performed By: #### 1 [id number] ####[facility] (DEFAULT)[address] [place] [address] 25714 U Amph Scr Negative [facility] Comment on above: Performed By: #### 1 [id number] ####[facility] (DEFAULT)[address] [place] [address] 34007 U Vanesa Scr Negative [facility] Comment on above: Performed By: #### 1 [id number] ####[facility] (DEFAULT)[address] [place] [address] 86688 U Benzodia Scr Negative Normal [facility] Comment on above: Performed By: #### 1 [id number] ####[facility] (DEFAULT)[address] [place] [address] 12557 U Cannab Scrn Negative [facility] Comment on above: Performed By: #### 1 [id number] ####[facility] (DEFAULT)[address] [place] [address] 40036 U Cocaine Scr Negative Normal [facility] Comment on above: Performed By: #### 1 [id number] ####[facility] (DEFAULT)[address] [place] [address] 57855 U Methadone Scr Negative [facility] Comment on above: Performed By: #### 1 [id number] ####[facility] (DEFAULT)[address] [place] [address] 21663 U Methamp Scrn Negative [facility] Comment on above: Performed By: #### 1 [id number] ####[facility] (DEFAULT)[address] [place] [address] 80608 U Opiate Scr Negative [facility] Comment on above: Performed By: #### 1 [id number] ####[facility] (DEFAULT)[address] [place] [address] 14957 U Oxycod Scr Negative Normal [facility] Comment on above: Performed By: #### 1 [id number] ####[facility] (DEFAULT)[address] [place] [address] 05445 U Phencyclidine Scr Negative Normal [facility] Comment on above: Performed By: #### 1 [id number] ####[facility] (DEFAULT)[address] [place] [address] 05748 U Propoxyphene Scr Negative Normal [facility] Comment on above: Performed By: #### 1 [id number] ####[facility] (DEFAULT)[address] [place] [address] 73962 U Tricyclic Antidepress Scr Negative Normal [facility] Comment on above: Result Comment: Resu [...] PPX Propoxyphene (Norpropoxyphene): 300 ng/mL THC Cannabinoids (91-jsx-6-carboxy- -THC): 50 ng/mL TCA Tricyclic-Antidepressants (Desipramine): 300 ng/mL Performed By: #### 1 [id number] ####[facility] (DEFAULT)[address] [place] [address] Urine Source Clean Catch [facility] Comment on above: Performed By: #### 1 [id number] ####[facility] (DEFAULT)[address] [place] [address] 55934 UA w Culture if Ind Standard on 12-21-2021 Color (U) Yellow Normal [facility] Comment on above: Performed By: #### 1 [id number], [id number] ####[facility] (DEFAULT)[address] [place] [address] 47014 Culture? Not Indicated Invalid Interpretation Code [facility] Comment on above: Result Comment: Resu lt created by rule GL_MAGR_ADD_UA_CULT1 Performed By: #### 1 [id number], [id number] ####[facility] (DEFAULT)[address] [place] [address] 52828 Glucose (U) [Mass/Vol] Negative Normal [facility] Comment on above: Performed By: #### 1 [id number], [id number] ####[facility] (DEFAULT)[address] [place] [address] 83580 Ketones Ql (U) Negative Normal [facility] Comment on above: Performed By: #### 1 [id number], [id number] ####[facility] (DEFAULT)[address] [place] [address] 11748 Micro? Not Indicated Invalid Interpretation Code [facility] Comment on above: Result Comment: Resu lt created by rule GL_MAGR_ADD_UA_MICRO Performed By: #### 1 [id number], [id number] ####[facility] (DEFAULT)[address] [place] [address] 52741 UA Bilirubin Negative Normal [facility] Comment on above: Performed By: #### 1 [id number], [id number] ####[facility] (DEFAULT)[address] [place] [address] 17727 UA Blood Negative Normal NEGATIVE [facility] Comment on above: Performed By: #### 1 [id number], [id number] ####[facility] (DEFAULT)[address] [place] [address] 41495 UA Clarity CLEAR Normal CLEAR [facility] Comment on above: Performed By: #### 1 [id number], [id number] ####[facility] (DEFAULT)[address] [place] [address] 80337 UA Leuk Est Negative Normal NEGATIVE [facility] Comment on above: Performed By: #### 1 [id number], [id number] ####[facility] (DEFAULT)[address] [place] [address] 14786 UA Nitrite Negative Normal NEGATIVE [facility] Comment on above: Performed By: #### 1 [id number], [id number] ####[facility] (DEFAULT)[address] [place] [address] 69928 UA pH 6.5 Normal 5-8 [facility] Comment on above: Performed By: #### 1 [id number], [id number] ####[facility] (DEFAULT)[address] [place] [address] 49723 UA Protein Negative Normal NEGATIVE [facility] Comment on above: Performed By: #### 1 [id number], [id number] ####[facility] (DEFAULT)[address] [place] [address] UA Spec Grav <=1.005 Normal 1.001-1.035 [facility] Comment on above: Performed By: #### 1 [id number], [id number] ####[facility] (DEFAULT)[address] [place] [address] UA Urobilinogen 0.2 mg/dL Normal 0.2-1.0 [facility] Comment on above: Performed By: #### 1 [id number], [id number] ####[facility] (DEFAULT)[address] [place] [address] 81462 Breakpoint UA Normal [facility] Comment on above: Performed By: #### 1 [id number], [id number] ####[facility] (DEFAULT)[address] [place] [address] 83821 Urine Source Clean Catch Normal [facility] Comment on above: Performed By: #### 1 [id number], [id number] ####[facility] (DEFAULT)[address] [place] [address] 36101 XR Chest 2 Viewson XR Chest 2 [...] Bowen 12/21/21 9:38 pm Technologist: SRF,L Normal [facility] CARDIAC HUMAIRA ADMITon 021 CK [Catalytic activity/Vol] 117 U/L Normal 30-135 [facility] Comment on above: Performed By: #### T SH, CMADM, CMP #### [facility] [address] [place], [place] [address] Nelida Bautista CK.MB [Mass/Vol] 1.16 ng/mL Normal <=2.37 [facility] Comment on above: Performed By: #### T SH, CMADM, CMP #### [facility] [address] [place] [address] Nelida Lily HSTROP <4.0 Normal 4.0-35.5 [facility] Comment on above: Result Comment: CUT- OFF POINTS HAVE BEEN ESTABLISHED BASED ON THE FOURTH UNIVERSAL DEFINITIONS OF MYOCARDIAL INFARCTION. THE UPPER REFERENCE LIMIT (URL) OF TROPONIN, DEFINED THE 99TH PERCENTILE OF cTnI DISTRIBUTION IN A REFERENCE POPULATION, HAS BEEN CONFIRMED THE DECISION THRESHOLD FOR UT DIAGNOSIS. Performed By: #### T HAYDE, CMADM, CMP #### [facility] [address] [place] [address] Nelida Lily NGA 41.0 ng/mL Normal <=61.5 [facility] Comment on above: Performed By: #### T HAYDE, CMADM, CMP #### [facility] [address] [place], [place] [address] Nelida Lily CBC AUTO DIFFon 02-23-2021 BASO # 0.1 103/ul Normal 0.0-0.1 [facility] Comment on above: Performed By: #### C BC #### [facility] [address] [place] [address] Nelida Lily Basophils/100 WBC (Bld) 1.0 % Normal 0.2-2.0 [facility] Comment on above: Performed By: #### C BC #### [facility] [address] [place], [place] [address] Nelida Lily EO # 0.1 103/ul Normal 0.0-0.7 [facility] Comment on above: Performed By: #### C BC #### [facility] [address] [place], [place] [address] Nelida Lily Eosinophils/100 WBC (Bld) 2.2 % Normal 0.9-7.0 [facility] Comment on above: Performed By: #### C BC #### [facility] [address] [place] [address] Nelida Bautista Erythrocyte distribution width (RBC) [Ratio] 14.2 % Normal 11.0-15.0 [facility] Comment on above: Performed By: #### C BC #### [facility] [address] [place] [address] Nelida Lily Hematocrit (Bld) [Volume fraction] 40.6 % Normal 36.0-48.0 [facility] Comment on above: Performed By: #### C BC #### [facility] [address] [place] [address] Nelida Lily Hemoglobin (Bld) [Mass/Vol] 13.3 g/dL Normal 12.0-16.0 [facility] Comment on above: Performed By: #### C BC #### [facility] [address] [place] [address] Nelidajose Bautista IG # 0.02 10e3/ul Normal 0.00-0.03 [facility] Comment on above: Performed By: #### C BC #### [facility] [address] [place] [address] Nelida Bautista IG % 0.4 % Normal 0.0-0.5 [facility] Comment on above: Performed By: #### C BC #### [facility] [address] [place] [address] Nelida Lily LYMPH # 1.7 103/ul Normal 1.2-3.8 [facility] Comment on above: Performed By: #### C BC #### [facility] [address] [place] [address] Nelida Bautista Lymphocytes/100 WBC (Bld) 34.6 % Normal 20.5-60.0 [facility] Comment on above: Performed By: #### C BC #### [facility] [address] [place] [address] Nelida Bautista MANUAL DIFF REQ NO Normal [facility] Comment on above: Performed By: #### C BC #### [facility] [address] [place], [place] [address] Nelidajose Bautista MCH (RBC) [Entitic mass] 31.5 pg Normal 26.7-34.0 [facility] Comment on above: Performed By: #### C BC #### [facility] [address] [place] [address] Enlidajose Bautista MCHC (RBC) [Mass/Vol] 32.8 g/dL Normal 29.9-35.2 [facility] Comment on above: Performed By: #### C BC #### [facility] [address] [place], [place] [address] Nelidajose Bautista MCV (RBC) [Entitic vol] 96.2 fL Normal 81.0-99.0 [facility] Comment on above: Performed By: #### C BC #### [facility] [address] [place] [address] Nelidajose Kimbleen MONO # 0.4 103/ul Normal 0.3-0.8 [facility] Comment on above: Performed By: #### C BC #### [facility] [address] [place], [place] [address] Nelida Lily Monocytes/100 WBC (Bld) 7.1 % Normal 1.7-12.0 [facility] Comment on above: Performed By: #### C BC #### [facility] [address] [place], [place] [address] Nelidajose Kimbleen NEUT # 2.7 103/ul Normal 1.4-6.5 [facility] Comment on above: Performed By: #### C BC #### [facility] [address] [place], [place] [address] Nelida Lily Neutrophils/100 WBC (Bld) 54.7 % Normal 43.0-75.0 [facility] Comment on above: Performed By: #### C BC #### [facility] [address] [place], [place] [phone] Nelida Lily Platelet mean volume (Bld) [Entitic vol] 9.8 fL Normal 9.5-13.5 [facility] Comment on above: Performed By: #### C BC #### [facility] [address] [place], [place] [address] Nelida Lily PLT 320 103/ul Normal 150-450 The [facility] [facility] Comment on above: Performed By: #### C BC #### [facility] [address] [id number] Nelida Lily RBC 4.22 106/ul Normal 4.20-5.40 [facility] Comment on above: Performed By: #### C BC #### [facility] [address] [place], [place] [address] Nelida Lily WBC 4.9 103/ul Normal 4.0-11.0 [facility] Comment on above: Performed By: #### C BC #### [facility] [address] [place], [place] [address] STROKE HEAD WOon 02-24-[address] [...] Bilirubin Ql (U) Negative Normal NEGATIVE The [facility] Comment on above: Performed By: #### E RUR #### [facility] [address] [place], [place] [address] Nelida Bautista Clarity (U) CLEAR Normal CLEAR The [facility] Comment on above: Performed By: #### E RUR #### [facility] [address] [place] [address] Nelida Lily Color (U) LT. YELLOW Normal YELLOW The [facility] Comment on above: Performed By: #### E RUR #### [facility] [address] [place], [place] [id number] Nelida Lily ERUAHD A micrscopic examination will be performed if indicated. Normal The [facility] Comment on above: Performed By: #### E RUR #### [facility] [address] [place] [address] Nelida Lily Glucose Ql (U) Negative Normal NEGATIVE The [facility] Comment on above: Performed By: #### E RUR #### [facility] [address] [place] [address] Nelida Lily Hemoglobin Ql (U) Negative Normal NEGATIVE [facility] Comment on above: Performed By: #### E RUR #### [facility] [address] [place] [address] Nelida Lily Ketones Ql (U) Negative Normal NEGATIVE The [facility] Comment on above: Performed By: #### E RUR #### [facility] [address] [place] [address] Nelida Lily LEUKOCYTES Negative Normal NEGATIVE [facility] Comment on above: Performed By: #### E RUR #### [facility] [address] [place] [address] Nelida Lily Nitrite Ql (U) Negative Normal NEGATIVE The [facility] Comment on above: Performed By: #### E RUR #### [facility] [address] [place] [address] Nelida Lily pH (U) 8.0 [pH] Normal 5-9 The [facility] Comment on above: Performed By: #### E RUR #### [facility] [address] [place] [address] Nelida Lily SPEC GRAVITY 1.020 Normal 1.005-<=1.025 The [facility] Comment on above: Performed By: #### E RUR #### [facility] [address] [place] [address] Nelida Lily UA PROTEIN Negative Normal NEGATIVE/ TRACE The [facility] Comment on above: Performed By: #### E RUR #### [facility] [address] [place], [place] [phone] Nelidajose Bautista UR MICRO IND NOT INDICATED Normal The [facility] Comment on above: Performed By: #### E RUR #### [facility] [address] [place], [place] [phone] Nelida Bautista Urobilinogen Qn (U) 0.2 {Jose Carlos'U}/dL Normal 0.2 - 1. 0 [facility] Comment on above: Performed By: #### E RUR #### [facility] [address] [place], [place] [phone] Nelida Bautista POINT OF CARE GLUCOSEon 01-27 Glucose [Mass/Vol] 95 mg/dL Normal 74-106 The [facility] Comment on above: Performed By: #### P OCGLUC #### [facility] [address] [place], [place] [phone] Nelida Bautista PREG HCG QUALon 02-23-2021 , QUAL Negative Normal NEGATIVE The [facility] Comment on above: Performed By: #### P REG #### [facility] [address] [place] [address] Nelida Bautista PROF 14(COMP METB)on 021 Albumin [Mass/Vol] 3.6 g/dL Normal 3.5-5.0 [facility] Comment on above: Performed By: #### T JOÃO LOCK, CMP #### [facility] [address] [place] [address] Nelida Bautista Albumin/Globulin [Mass ratio] 0.9 {ratio} Normal The [facility] Comment on above: Performed By: #### T JOÃO LOCK, CMP #### [facility] [address] [place], [place] [phone] Nelida Bautista ALP [Catalytic activity/Vol] 103 U/L Normal 38-126 The [facility] Comment on above: Performed By: #### T JOÃO LOCK, CMP #### [facility] [address] [place] [address] Nelida Lily ALT [Catalytic activity/Vol] 35 U/L Normal 9-52 The [facility] Comment on above: Performed By: #### T JOÃO LOCK, CMP #### [facility] [address] [address] Nelida Lily Anion gap [Moles/Vol] 13.3 mmol/L Normal [facility] Comment on above: Performed By: #### T JOÃO LOCK, CMP #### [facility] [address] [address] Nelida Lily AST [Catalytic activity/Vol] 28 U/L Normal 14-36 The [facility] Comment on above: Performed By: #### T JOÃO LOCK, CMP #### [facility] [address] [place] [address] Nelida Lily Bilirubin [Mass/Vol] 0.2 mg/dL Normal 0.2-1.3 The [facility] Comment on above: Performed By: #### T JOÃO LOCK, CMP #### [facility] [address] [place] [address] Nelida Lily Calcium [Mass/Vol] 9.0 mg/dL Normal 8.4-10.2 The [facility] Comment on above: Performed By: #### T JOÃO LOCK, CMP #### [facility] [address] [place] [address] Nelida Lily Chloride [Moles/Vol] 108 mmol/L Critically high 98-107 The [facility] Comment on above: Performed By: #### T JOÃO LOCK, CMP #### [facility] [address] [place] [address] Nelida Lily CO2 [Moles/Vol] 25.8 mmol/L Normal 22.0-30.0 The [facility] Comment on above: Performed By: #### T JOÃO LOCK, CMP #### [facility] [address] [place] [address] Nelida Lily Creatinine [Mass/Vol] 1.00 mg/dL Normal 0.52-1.04 The [facility] Comment on above: Performed By: #### T JOÃO LOCK, CMP #### [facility] [address] [place], [place] [address] Nelida Lily EGFR-AF SENEGALESE >60 Normal >=60 The [facility] Comment on above: Performed By: #### T JOÃO LOCK, CMP #### [facility] [address] [place], [place] [address] Nelida Lily EGFR-NON AF SENEGALESE >60 Normal >=60 The [facility] Comment on above: Performed By: #### T JOÃO LOCK, CMP #### [facility] [address] [phone] Nelida Lily Globulin (S) [Mass/Vol] 4.2 g/dL Normal The [facility] Comment on above: Performed By: #### T JOÃO LOCK, CMP #### [facility] [address] [address] Nelida Lily Glucose [Mass/Vol] 95 mg/dL Normal 74-106 The [facility] Comment on above: Performed By: #### T JOÃO LOCK, CMP #### [facility] [address] [address] Nelida Lily Potassium [Moles/Vol] 4.1 mmol/L Normal 3.4-5.0 The [facility] Comment on above: Performed By: #### T JOÃO LOCK, CMP #### [facility] [address] [phone] Nelida Lily Protein [Mass/Vol] 7.8 g/dL Normal 6.1-8.2 The [facility] Comment on above: Performed By: #### T JOÃO LOCK, CMP #### [facility] [address] [address] Nelida Lily Sodium [Moles/Vol] 143 mmol/L Normal 137-145 The [facility] Comment on above: Performed By: #### T JOÃO LOCK, CMP #### [facility] [address] [phone] Nelida Lily Urea nitrogen [Mass/Vol] 10.0 mg/dL Normal 7.0-17.0 The [facility] Comment on above: Performed By: #### T JOÃO LOCK, CMP #### [facility] [address] [place], [place] [address] Nelida Bautista Urea nitrogen/Creatinine [Mass ratio] 10.0 mg/mg Normal [facility] Comment on above: Performed By: #### T JOÃO LOCK, CMP #### [facility] [address] [place], [place] [address] Nelida Bautista TSHon 02-23-2021 TSH 1.157 uIU/mL Normal 0.470-4.[address] [facility] Comment on above: Performed By: #### T JOÃO LOCK, CMP #### [facility] [address] [id number] Nelida Bautista TSH RANGE SEE BELOW Normal The [facility] Comment on above: Result Comment: <0.3 4 UIU/ml HYPERTHYROID 0.34-5.60 UIU/ml EUTHYROID >5.60 UIU/ml HYPOTHYROID Performed By: #### T JOÃO LOCK, CMP #### [facility] [address] [id number] Nelida Bautista XR CHEST 1 Von 02-23-2021 [...] Date Encounter Type Care Provider Facility Start: 02-23-2024 End: 02-23-2024 ambulatory SHAWNA RICHTER Not Available Start: 02-16-2024 End: 02-16-2024 ambulatory SHAWNA RICHTER [...] Start: 12-22-2021 End: 12-22-2021 ambulatory JARVIS RODRIGUEZ [facility] Start: 02-23-2021 End: 02-23-[address] [facility]LSON [facility] Facility: Payers Date Payer Category Payer Unknown [id number] 1985 Unknown [id number] 2.16.84 [id number] 1985 Unknown [id number] 2.16.84 [id number] 1987 Unknown [id number] 2.16.84 0.1.030150.3.579.2.9 1987 Unknown [id number] 2.16.84 [id number] 1987 Unknown [id number] 2.16.84 0.1.094591.3.579.2.9 1987 Unknown [id number] 2.16.84 0.1.145233.3.579.2.1258 1987 Unknown [id number] 2.16.84 0.1.926460.3.579.2.9 1987 Unknown [id number] 2.16.84 [id number] 1987 Unknown [id number] 2.16.84 0.1.582525.3.579.2.9 1987 Unknown [id number] 2.16.84 0.1.938993.3.579.2.1258 1987 Unknown [id number] 2.16.84 0.1.078489.3.579.2.9 1987 Unknown [id number] 2.16.84 [id number] 1959 Unknown [id number] Summary Purpose Family History No Family History Records FoundNo Family History Records FoundNo Family History Records FoundNo Family History Records Found Advance Directives No Advanced Directives Records FoundNo Advanced Directives Records FoundNo Advanced Directives Records FoundNo Advanced Directives Records Found Additional Source Comments INFORMATION SOURCE (unrecogn ized section and content) DATE CREATED AUTHOR 02/28/2021 [facility] DATE CREATED AUTHOR AUTHOR'S ORGANIZ ATION 12/24/2021 [facility] DATE CREATED AUTHOR AUTHOR'S ORGANIZ ATION 01/01/2022 [facility] DATE CREATED AUTHOR AUTHOR'S ORGANIZ ATION 02/24/2024 [facility] EPIC FOR RECORDS PERTAINING [...] CLINICAL RECORDS. [facility] [employer] [facility]. provides no warranty or guarantee of the accuracy or completeness of information in this document.
--- NOTE | 2024-02-24 10:03 | US_ITS ---
[address] [address] Patient Name: LOCO HICKS MRN: [id number] date: 1985 Sex: F Assigned Patient Location: [facility] Current Patient Location: [facility] Accession/Order Number: [id number] Exam Date: 02/24/2024 10:04 Report Date: 02/24/2024 10:59 At the request of: MARYANN VIZCARRA Procedure: US OB BPP w non-stress EXAMINATION: US OB BPP w non-stress HISTORY: Gestational diabetes mellitus O24.419 COMPARISON: No relevant comparison available. TECHNIQUE: Ultrasound biophysical profile was performed in the radiology department. non-reactive stress testing was performed by nursing staff in the birthing center. FINDINGS: BREATHING MOVEMENTS: 2 GROSS BODY MOVEMENTS: 2 TONE: 2 QUALITATIVE AMNIOTIC FLUID VOLUME: 2 PRESENTATION: CEPHALIC HEART RATE: 152.54 bpm AMNIOTIC FLUID VOLUME: 11.8 cm GESTATIONAL AGE: 89 Day US/US OB BPP w non-stress IMPRESSION: Total biophysical profile score: 8 Electronically authenticated by: CADEN COX Date: 02/24/2024 10:59
[2024-02-24 10:34] VITALS: BP 134/98; PULSE 96
[2024-02-24 10:41] VITALS: BP 134/87; PULSE 93
== END 2024-02-24 11:05 | disposition home or self-care (01) ==
LOC: US 07:30 → FBC 10:00
PROVIDERS: Visit Provider Obstetrics & Gynecology
DX: O24.419 Gestational diabetes mellitus in pregnancy, unspecified control (principal); Z3A.38 38 weeks gestation of pregnancy
CPT/HCPCS: 76818

== ENCOUNTER 2024-02-26 06:32 | Inpatient (IN) | payer BC, SELFPAY ==
[2024-02-26] VITALS (95 sets, daily range): BP systolic 92–173; BP diastolic 53–150; PULSE 73–118; TEMP 35.7–38.1
--- OUTSIDE RECORDS SUMMARY | 2024-02-26 06:35 | XMS_ITS | CCD ---
Author Organization [facility] Care Team Providers Care Coin Purse Assembler Name Role Phone NAINAC, DR OLSON Primary [...] Range Facility Coding Summaryon 12-31-2021 [facility] AyxkutgzLOm6gLv+PGhl YWQ+YZ7SRSQxD43mlKNg qL4QO6qQLN8BOBZUHRDU FR2FBV7ktKF2YDteJ7Oo biAv QwvctJAwBM02WEm1GRG4 yWgfDEdkmI9plNUpE7b5 JaUaWP33aA27BOdjBFBh AeE8MfRpmoxfaWDo V5cuVeXuaFEdLtd+PHRh YmxlIHdpZHRoPScxMDAl NgDwdAoiOH6oPk0qDKVs LWNvbGxhcHNlOiBj b1pnUTMyCXegPG5evIdc A0NlvDT7WMAcu3l0Jr44 dHI+XUYwMDS6pPigFDtt j780FkIfo4vuCRZ2 pCCgGNxtDDN5E37mv4X6 XTPlBIAgHER1iGA8vR8d fXyihoobW6WlaBFgEkF9 UQZ0gJXocJ4bgLxl azitlJ1iIbl+F64HDJ0N UMICKR7APeu2G8RrTmez dHI+DQ09XBOoIO39nMGg aEMvg6xeqIb5MrAi RRNnALG0iLteTQfub6Nu CELxM02fyBGea2B3VLVc yAlvqKMxIiPrcFI2wL2k NMefvdjuh4lihhch Omjmk8uuxj47nR49C32e IHvoLFYhJXJ4BYPtHDUu dCihbh5pvU1iFv3+IDxj m0jbu2hdxVo1QfAm RAPleyHriRggWDK0g8Lw Av20A5EnvRnxc2WeOaf4 ir57dFIho6B2aRW9ZHxh ABZifE2jKXssXgK4 UUOlRzLboX89oSKkRBhi Ax6wvLbgzNfhMP3eMXKn xpzpXPInbU7fYAHfyFEu fBohLP4xBIUvyfyx i302UjFkCTR2KIXdtKEd S5TjxN9oNaWoBJRtCSXo R5DdiZJvGWqzW774ITse ZwC1GIPwpkSpR6Gu CCXpkKeiUaY0l6V1Sb3O x2EkspdmYNG3ZZbmXSX0 UyF8RxLtJhN8C5CfXxn3 MZWjlJwyGV9bS1Wk PRFevuldhsdixQK7UHQx FSGpaW18kBQoQGnkZm0d e8Q6u410OYGxBXXwqN40 Gk7ciSglSNZpuJGC yB3ckprkp9tcnhkyPjGx TCQaDEy4XTo3VDCsuLsk CzTmQIE4VeN0VKA4xLKi tU5uxFymzhbnmV3h Oyc+Z00kuL1sYGZ8WCM9 bcqzZGUeljGsBE89ZE26 H1RiPaeflNFlyFS+PGRp fhOcjQeeZJ1aSnDe b9mwc0EnVVwiF2MpKXIm SHutBpj9NUAqZFA1vIT9 cQ6yDRVjUUmit1N6vMP9 M7AfasAjxl2ds6bt EEQrFFylB44vpQVfx9D1 YKPvnJV2YXUkxDtzWfPj kC74Ofy+MOPafKfcs3Tw Ztkhx1hqe8vrqWg4 IjMwJSIgdmFsaWduPSJ0 o7JyHf80A15oETcxTQLd GQVaNZXcLUAyhThywo6k zY5dXk4+PGNvbCB3 qGE8lI9hMIRyXqL7OQvw X694YxXaySFbHxogr3xv l0uucAg7AyBwVJLsexVn oGlyLNW8n2RnTw69 C10oAFopKNAuJVWfUWUi TTMaaIfwcm8wqX1zFc5+ HU5uz8udzh12vP63zZY+ DNLbCSH6iGohLEnc SRWchO5kZOqrFxL0DORw QnOllY76rPBcEWucWo2s bIfzbEveVA6yGRHgghnn g692BjHpw1tvLLFp zDHhLXoxREZ6V46qv0X3 TLFrMVXoTDM7gEX2gG2o bGlnbjogbGVmdDsgdmVy mFdlTQluIPyfT692 IHRvcDsnPlBhdGllbnQg DnRdZQk9X9SsFuc5UJCk lBukTE5riXPuWEevFs2i tMujjEagRA0jATGn icunt034QjAni0snJZCq jIKqSThuBOX2B18ge5M5 EDMiIURzGFW6jWB3aU7y bGlnbjogbGVmdDsg okVroOlnRQcdJQwyB650 IHRvcDsnPkJpcnRoIERh bTI6HI07BW92iTObl0R5 oVV6F1LbUDSezssx uvxexND2ZYPfYQLxnX10 Lu9jaZxeIf6eLTAaFEJ1 IFEpoROlF1EsaJ4uPqEg GXMuDMPoN4BgnPFy VDoqW414UIaiOpC5XLWa fpSpX9JkZAMboLrmYxQ9 m7Y9Fs6QB0J9IB04KO53 bVOpq5I7dWQ2S5To MDDfvalavtcwuAI0JXAl MZIjsY09Ro2cuYxtFv1l TNZdTII7BNOujMEzK4Sf hL1aOiWvUILvBQJf F5LmmCImAGzrW066IDjg FnK6MMEgwdEwX9ElOKJu qElyMdC2l2R4Ig9ACWl1 GM42WI74wSVdr5B0 tRE0N4OiHFPwvglzuiov iXK9CSYyNRJkhZ47Ca5l tIknWt7lYZDwSYZ7ETDa uLAcI9AdwZ0pYsGe UEMsTUXlK5FgkLVoGVfc S604EYyzFjH1ZUEnnuFo K7UsSEEbjBxqEdG6z6D3 Kd9FPPQpOW70MUH8 sOO7KD10QP65O6LoIndk dGFibGU+PHRhYmxlIHdp ZHRoPScxMDAlJyBzdHls SQ9bKf3jBCLgPFCh zYxrtPKhGdGfh6fhQYFv FUgrWD8xtMgzQ6TheKA8 JCDbe8w5Wm05Z36kP0Eb dXA+YJAknUW1cDZ3 dF7mTfDlUiK2GWfuJ710 KwBzjYDyUdncq2dvk6dw iOt0TbT8LJFpzfOkmTaf TTO8v4AfEa11X61k IHdpZHRoPSIxNSUiIHZh lDrqzo7baP4cRf4+PGNv yIF8fBU2bN2pClDtRxL9 XSovP684JcOczDGh Jatuo3udn5ojaGm0PiVd TLPqkmYicPkxYKS0i1Nm Mr47R8WtwDjqc8AtTtv5 it59aWHng7E9dAP8 D3EyFDAbwaxgoWHiqJla FN9qVHQihonkWTAurE9a OVBuR3b9NvAgFjV4TWct F0RpppY2AGOofENc TEhwDRN4W88if0T5MSRm YWWmMDA2jDW4zS7ifCge bjogbGVmdDsgdmVydGlj DSfyTLvzD723LBDh lNikRPZveW0hNCGbyEWo sJxmFW9xATKdexxpOfjC PPVQMRZWWUZGBnSOID13 RK84lIXia9E8bWS2 G7JbPYJklbsflyabmGN3 JQUlKKTzfW97uVZqPQcp Fn7fo8P5i340UGPtDYMg qP56Ca8pnSkfUWQm aUVLpL1fhodlx6shrbmh IvYuXDBpKBe4ZXw6FZVa jOivLrIzWRI6HxI9DPF8 vJOdsP9ztQdyebzx hR2wVfq+MDEvMDgvMTk4 ODwvdGQ+WMIxNYH0pGyn RJwkRLZnxG4mEOWsX0y5 TsJoHvK6UVhzB1Qr WWBxylgoNy76dI3lQcPe AzK2BFyaP3BldtK2YQQk iFPnRJexZAI7Q30bs1Q5 CXNqDKJpSNP1oRQ6 eG4zcTecmgcikAFbhEqk blCydTtrXYbpCBgjJ474 AJTjjTlbUoC1HBegKSUi UG39OP24rLYgi5Q9 yWV2W9EjSMMgylpunilw zNV5CSShIVRdwI40tXPk PKkoDk2nc1H0u749FSVk LDFsqQ70Wv8ckThd IFNflMTYsH0ltnqcv2ia chlsOeKrMNYbLXu2JPv0 DMUrwKaoFeBzSVB5QpU4 OOU8tCXgmW6uoSpo tqbqsY5iYam+RkVNQUxF OB68GE20yKQjk6T6aUW5 B9PiZHYkmfapffjiuXO2 RAEjBCOkoS52iCTi GXodWm2rv2W7q750LVMu TYDadG22Zw5zoAeyWGVf eWWFgY6fbkwrg9qlkqpi RkJyICKmINo5YBm0 QTQsoHnoLfPiUBO1PaJ7 BZM2dOAtcO5cfCedocrg bJ9nOpi+S0O3H1CiAoim dHI+QL85QUIeBV02 eSIulNWft6kmxVi5ArCy UVDgQHB5yHidRVdew1Pb IFOlC58svRYoo6Y9HXJx bGxhcHNlOyBlbXB0 aC4yFVounbdoh0awikmo Ylpjp7ithi61yI02G65f IHdpZHRoPSIzMCUiIHZh mAcxly5fpV1rSj9+ SFNtpEI4gVC9vU8rFzYo EqW1MOvpY398VzZqlKBf Uhqrk4mmy7dfeKr6VqHf JSIgdmFsaWduPSJ0 n9LdXd01C93mMVwtWUZr UBThOCZiMWFaiUgnmi0m qH1pOt2+IC7hq7yahj54 gI74uHT+PHRkIHN0 sUqfXEmjWNGwrL8dRZrp KvB8PHIhExDgzP80vBRt MGwgIo6cyCgrzCbqXT5z AJNusczkt623EeUu z5mxIMClcBIhWXsoJWH3 E03tw6H2HTGdUEOyYJK1 yLQ0iM2ulSldzcsvqTCf dDsgdmVydGljYWwt GRluD724ROYdqLmkLmGx fOQuL0pqliMXBV0gWigg dGQ+KKOiYCO3mZwpIBbj GGLpdF6xOOIsN3j4 PrMiGhK0NFrdJ6PlrgH4 USRfiOUrWVTxxUALmH4c krahq4cudcgcTxYxIQTc MIj9OGx0LQUuuAvc YfYvFZC1XoB8VDJ6gULe bJ5ckVarykqzjQ5xNow+ RklOOjwvdGQ+PHRkIHN0 wBjvCArqAMLcjZ0u XHQeK9h2DpNuOpN2UNii Q0YqnkG6NCPkwNQuVRMt jKRHqD4gevtdt7ybexba IqZoCJRsDGu3RIh9 OWEbzSxfUcYxCGH3ScH7 NXL9qNPjeQ7orBweeazr pY5eUxv+TVJOOjwvdGQ+ LDMyKYL4dYanHWec VLHjbP0kYWYpD9q7QiEv MsR5HVgoK2TynlD0YPDy bXZrPVBhrCFByZ2hslhu g4ouxqdhMoRsSBHp WPq2APe8AURfkAkaAcKb TTW9WsT2LQV4zNQniU1y gZommxgeuN3mYsh+UGF5 RAU4VD54AK14Q9Py PjwvdGFibGU+PHRhYmxl IHdpZHRoPScxMDAlJyBz rSouZU9oAj8rTLKiXFDy eExzwWZnOmAdp9ep YXB (more content not included)... [facility] Coding Summary HTMLBase 64 MdgfsgwzUWn5mPx+PGhl YWQ+YP2JKCIrN27bbHLt eT6RG2aDEH1LAHDNEWHJ RV5EYQ7kdTK7IVpyF1Lg biAv WkysiRDiGA24KFe3UVA8 zAoyXVsnmW7uuAMzJ6n1 YpLeIA39vS15IOvtMBYe KeH5QpXfzzvmpQCv V4bkBpDseDAxZus+PHRh YmxlIHdpZHRoPScxMDAl DrNkuYhdSK7pYx0tHZLr LWNvbGxhcHNlOiBj i8jjRHEhNLagZB1rhPyi R7BmmEL4AODkw1l7Wl19 dHI+NXTePPO6fEmiLNhr c934SdOfu9opWJT6 hNCvXWwoSOV0F72xe7V9 FAZfIAGcYXV5qXJ4dN3s oVgdwhukE0GijPQdDuZ9 GLI5tZSlrN3ilHlt nxtruI8sQgt+Z61PJI7J JTGCQI2BGxr8U8NhTerx dHI+WF71IFYvZW48gEEq kJRhj6jaoIr7ZrNj RTNeUDX1xWfiMImko3Ea EPEcO51lgIXkz1L7VEEz rWfgdCVeBwPlbQR7sW5f GBfvyjvvp5wtpikx Zvqlm0larq42xQ62T55x PKehTHKvGXS7MVUnSMBd aExcpu1vaO2sXv2+IDxj m1ktr0zupGu1CcZl XPCexmJifZlcXMV9h0Pp Uq15J9RrhEpvp6PrHso6 df61fBXzq3P0aDF8ZUtk CCTaeY3cGXdjKrI3 VDPsHgGdfY68pIVgKRbb Pa4omKnauOsxMQ4qMZJd fgbbJAXynU2lNUNzdODk zHtaXJ6jNMPgvbsa k714NgNrZCO5IFFrlJXg Y9DkrT9qEdSeARGySAFg G1WubLPzNZgjL147LUoo TfW3DSVgzfAeW3Zr SSAreHwiOrJ2c7R9Pt6F x0WzrwtfZPJ8TVlyYWV9 ZhN6QvKxLgL1G9SzPja7 ERUnsMuzEU6aX8Os OVJzvovfjhrfzNL5WGVj VILghP33aYYnRSfoEo3a a3A0j972TNUjEEVzjT59 Hy9dqPcdABArfKRY qE7uhhfvt3goungxQaMl REMjVLu4YAo3BBVihSzl PfHuUWD4LiC6MCE7jMJc sV8qfIrscftawV9e Oyc+V11vwO1dRZW9TXN6 dpmuJLOxxjCjXW89UW54 U5SxSzijpKTbtEX+PGRp zeFxxVqiPJ5yAkKb w7ugv4EjVSkgQ9DxNGTe MJofHce5YDEyDXM8bAX4 gC5vILPuSTamb9E1pJE6 L5LaaoObnl2lq1wp DWRnTRqhL86xtIJvp8K6 XVVwaVO7NOMkqJetAzKs oS84Cnm+JYPmqKsza9Wm Palcz0hcf4hmbJu0 IjMwJSIgdmFsaWduPSJ0 k6ZeJa67Q05sKEeiCYZc TRHjFSWjGTOtaBsgmc4c tG6cRb9+PGNvbCB3 xJX5wC1sUPWhThM8FOhp N787WiSbyBNrEgidw5yz i8scxYz9UpQfGYVjqpPu vChxRJB9s4VoLr52 M30iPLbaDKQgIOLcLBWq SOQajIxojt1qwL2rOl3+ NH6mu3cojh29gK01yDN+ LTVpBUK8mObrKHfx BFDlbY1tWRvyYtI7JXEm RoLatJ45ySTlKKvoAm0p vIjtuFpwLU1iJHIxqwql r621LiDix1zvXQIp uBVuMUpeGQV2H17gp8C9 GPIcTGZqFGI4aQY0aT1b bGlnbjogbGVmdDsgdmVy dQgrIXriQCkoS392 IHRvcDsnPlBhdGllbnQg MzJkGBr7H4TpZvw8RWLf gBrnCG3dnPCkSVesPs6e pVrbpWihHR0iNUNd kpaty354CaXsi8onQNRk jIZgBXxtHSV1V06hd7A0 ZWJhSKAuQNE3zNS3lE4h bGlnbjogbGVmdDsg xaCjqMsiBPlcFAugZ458 IHRvcDsnPkJpcnRoIERh kKK4FI35AJ18lMAbx8S2 hXC8H2SgQCKgpzyp utkkjVA2VWEaILEmuM02 Km7woEigOi8kZBMnQBR2 JZTiqEUrD9RwmA1oVmLi VTWbVDArQ5JgyQXq BGnrS190YGttIfM8ILVf fkJgH2YcROWngPdqWaR9 l5E3Pl0ZZ9H8JH89XQ06 cBXuh3L3cMC3L8Ro OCPbsfqkgjrsbDY6SQGr OVEeqO01Ef5yjEerGh3n QDJzBQJ4EETyjVAmK4Pn sL9lSyJtHHXfCUIr O5OtbSQqDAdpX677FYht HfI9MMKtmfHbV8YwYMEj mCevFuQ4a3V0Wh5OAWu0 RV99WZ23tONkq8H9 tIW7X8NcGNAgavnjmxas kZO2FXUaLDYtcR98Dp4w aEmtQl5gUQBkHQO3RVAk jBCkK5ZqyP4xEnXa BUZaCTRfH6TyeXBgDXwj H543HBoqZeS5FEDpjcUd L3IuQBAndIctGvD3k0R9 Ee2YMZTxSB40HEO6 aEV4VV08OC03P6HsIjap dGFibGU+PHRhYmxlIHdp ZHRoPScxMDAlJyBzdHls VQ6mDv7kMWEvDXFk pBiwaAUwXjGag4ogPHQv OPenAR5tfMseR9ZbtMD8 EIHgh9e9Cr81G34kL3Hq dXA+CYWxlQX8bDM4 aB1fIdLcCmP7JPrvF240 LrHqaHToPnlsz9zjb9lm vYg6XxQ9IXPutkVlaOen AZU2e0SsEt12N43h IHdpZHRoPSIxNSUiIHZh sIdglc2efV7oMp1+PGNv yAY7kPU9uS5iJzZbIdC9 HKgaE224AwSimWOe Dfgfx3ppu6eieEh8GsJw JWThmiUzmCriNGY9h7Gy Ub96W6EvfFkkc4LtJiy8 he91tWYkk6A3gCH7 L4GmZKMvjxdxfGWktTtl ZY5qEMVmdbyzATVonV7i PLUuR3a8WkXiMxF0IBvj V5BejyR9OSVzzFLg TBdbLIV0F55ak7Y9JPQl QKVpLGJ2aQN3kJ6sbBmn bjogbGVmdDsgdmVydGlj PZfqHZfiY996XFGl jBqbDHTjoG1mZZStpOMn wXguRB5cFVSdqgdzUcvP AOOFPFJADPFRDdHTGG16 XE72hPGcm1M4gXR0 Z3YiQRGybkriuocavTG3 LXFdOSIkyE79zISzAUkn Mk1yj3E5f072ETKcJCDy cH03Ng4uxGebTXMp sKJZjI3rzqgdb5prlimt IwIfHGLiWCk8DRr9ZEPa mLqdLkHcUTG4AtI5ZDU3 wOQneX3vhKqnnygd wU2bIso+MDEvMDgvMTk4 ODwvdGQ+RPSzNAL0gCgv VPrkOACikR6hZOLrA3v7 DzJaRuC1NRegH5Xq EXWzdvvgVf98nO2aZlHs AmK1UKieA1DxmjW1AIVq vWSkEPjhTID7J57yn0C3 PMZpJBUcMMU0sXD3 tU5noKbbmlpezJMgwMue bfQkzHpuPBowTTowZ471 CCSecMizJeF2HOxvZIIm AQ83HU69cKHqp1H0 uQU3D2IdNTRtnnwvyfvo iCZ0TWRmYNDscN49iAKr XLtcKr4ea0A1s742KILw ECVetJ81Uy0coCmq QYIkhLURyK4qpgklz0kv qbdhBmHmMIFeDDs4FZk7 UCWjgKlqOnWsZEL2QsF8 QLI4oINoqF0jsEul olroqM9uQrz+RkVNQUxF FE35HI74lHItd4X7kUG8 W8YeEWAnldexujcelFO8 GNAsVCOqrG07tXGw KSfoYs5eo4J9v549ZHAb WSPjmL18Mj2epAksCMJm sFHUoX5urvwcy7jcjtqy AjLoOZObYJt8YWo4 XKWybOayQtPwBPT3QxM0 QAM2nSOggG1ykXokhwyy dX4rKfy+NF8jycvfemY8 HH44IX14Q0SzKbdr dGFibGU+PHRhYmxlIHdp ZHRoPScxMDAlJyBzdHls XS5iDo0oCTCzUKJdqAwk uXGxLzLlf0xsMSEp ANtlCB1acBzmI0RheRP7 BYNog6r6Pu05D66hH3Uy dXA+KMMzhVS1pXI5hB9j HsYgUoH9QSnhU574 BrCsbBBdWjtyr3qqg5ie nQm1NlYuVDPxfnPnfWwl ATC4g8LfMb67D47tBYpx ZHRoPSIyMCUiIHZh bLpnfk4muZ5qPc9+PGNv zNH7nHH5eW3vRcPeRdZ2 UBglZ640YfBwyJJkNwwn I13vV7VowPY+PHRy Dzg1WGPhhCqkSD7xhKAj WHxpNu9pJTL7RzHjYpTq KUpvB4BmASHlgkrqzlqt rBR0EINpPZHehT98 Mn2wbTldYo1hYEHdNUH6 GCYkwXCxV1IrsZ9yYlEs NNFuHSFtG0TnlNWpSMes N409OElsFuN4SOAn fgLeN7WnHAHeqOnkTeZ8 n6K8Xy5ThNowbOHrOE5g UyLoOIb6U9MuMtc4IQIt nMuwPH1tiBIlZUbd Co8pcKpdkOyfIQ3pZDDp rbrpt424FkJke5nnEOLc kNMxKQxzEJL0U26zg0H4 TWSpZLAqOJG8eKO7 wZ6qjLzruvxdpPFheRlx ouRpgDeaKNoqRNfwC655 BMTepHdtNuTFVno9J6Vq Ino7GXZrjTphJC3a vMFpWDppZo9cmWyrhTtp KU7uRZGfsmoyl270SmYv b9dwNRZzjKOsZHahQKS7 Y20ri5V2LGQwRGVc EUU8wEB6iC2jpAfrigdp bGVmdDsgdmVydGljYWwt APotP049DJDpcAfxKy2K Jih4A5QpAet3DXBh bUueTW9kkVWjTVlkXj5x pTkyyIhnIX8sPYBvwnbd f983PrVte8vyRXEzlGVw NIabSGD3L51ux3V2 YYXkDGCgBCJ6zQU6fR4x bGlnbjogbGVmdDsgdmVy rYxhZAkiFUtrW454CPXy cDsnPlBheWVyOjwv dGQ+IK58wp76F0MuQtkv Gyo9HQVkRQY0mOR3bY2u JHBwLObmq6U4zKT6C2Hx rzGiir1sb0bzFDKc ZTo (more content not included)... [facility] Ambulance Noteon 12-26-2021 Ambulance Note [id number] [facility] ED Clinical Summaryon [address] [facility] - Emergency Department [address] [place], [place] [id number] ED Clinical Summary PERSON INFORMATION Name: LOCO HICKS Age: 36 Years Sex: FEMALE : 1985 MRN: Acct#: Visit Reason: Dizziness; FACIAL NUMBNESS, DIZZINESS Arrival: 12/21/2021 18:23:41 Discharge: 12/22/2021 00:02:00 LOS: 000 05:39 Check In: 12/21/2021 18:23:41 Checkout:12/22/2021 00:02:00 Address: [address] [place] [id number] PCP: Provider, None PROVIDER INFORMATION Provider Role Assigned Unassigned Alvin Bryan ED Provider 12/21/2021 18:26:52 12/21/2021 18:30:20 Sanjuana Ramirez [employer] Nurse 12/21/2021 18:29:17 12/21/2021 23:14:12 MARIAJOSE EDEN ED PA 12/21/2021 18:30:25 Kerline Cartagena [employer]CH[employer] Nurse 12/21/2021 21:46:32 Kerline Merrill RN ED [...] - pharynx pink and moist. NECK: -Supple ([id number]): non-tender. CARD: -Rate and rhythm: Regular -Edema: No -Calf pain: No RESP: -Respiratory effort and chest excursion with respirations: Normal -Breath sounds equal bilaterally: Clear -Wheezes: No -Rales: No BACK: -Signs of pain with movement: No ABD: -Distended: No (more content not included)... [facility] ED Patient Education Noteon 12-22-2021 ED Patient Education Note Education Materials [facility] ED Patient Summaryon [address] [facility] - Emergency Department [address] [place], [place] [id number] PATIENT DISCHARGE INSTRUCTIONS Patient Information Name: LOCO HICKS Age: 36 Years Date of : 1985 Reason For Visit: Dizziness; FACIAL NUMBNESS, DIZZINESS Arrival Time: 12/21/2021 18:23:41 Primary Care Physician: Provider, None Attending Physician: Alvin Bryan Comment: Visit Diagnosis: Diagnoses This Visit Dizziness ([id number]) Paresthesias (R20.2) Visual disturbance (H53.9) Prescription Information: If you have been given a prescription for narcotics, seek immediate medical attention if you have any difficulty breathing or any sudden status changes such as confusion and sleepiness. If you or anyone you know is experiencing suicidal thoughts, mental health, alcohol and/or drug addiction problems; contact the [facility] 17/02 Crisis Hotline -Text 4HHNG to [phone]. If you received any narcotics, sedation, or [...] and treatment you received today in the [facility] Emergency Department were for an urgent problem and are not intended as complete care. It is important for you to follow up with a doctor, nurse practitioner, or physician?s project construction assistant manager for ongoing care. If your symptoms [...] we can reach you if necessary. [facility] Emergency Department has provided you with a complete list of medications post discharge. 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 Fact sheet for Healthcare Providers: https://www.fda.gov/media/472162/download Fact sheet for Patients: https://www.fda.gov/media/665763/download Methodology: Isothermal Nucleic Acid Amplification Performed By: #### C OVRB #### 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 No Invalid Interpretation Code [facility] Comment on above: Performed By: #### 6 [id number] ####[facility] (DEFAULT)[address] [place] [address] Group care resident? No Invalid Interpretation Code [facility] Comment on above: Performed By: #### 6 [id number] ####[facility] (DEFAULT)[address] [place] [address] In ICU? No Invalid Interpretation Code [facility] Comment on above: Performed By: #### 6 [id number] ####[facility] (DEFAULT)[address] [place] [address] status? Not Invalid Interpretation Code [facility] Comment on above: Performed By: #### 6 [id number] ####[facility] (DEFAULT)[address] [place] [address] SARS-CoV-2 (COVID-19) RNA SHELBI+probe Ql (Unsp spec) Not detected Normal Not Detected [facility] Comment on above: Result Comment: Perf ormed by PCR methodology. Performed By: #### 6 [id number] ####[facility] (DEFAULT)[address] [place] [address] SARS-CoV-2 (COVID-19) RNA SHELBI+probe Ql (Unsp spec) No Invalid Interpretation Code [facility] Comment on above: Performed By: #### 6 [id number] ####[facility] (DEFAULT)[address] [place] [address] Symptomatic as defined by CDC? No Invalid Interpretation Code [facility] Comment on above: Performed By: #### 6 [id number] ####[facility] (DEFAULT)[address] [place] [address] Transfer Noteon 12-22-2021 Transfer Note medication list sent with patient, Complete ED chart sent with patient. CD and med list sent w. patient to Hospital [Electronically Signed on: 12/22/2021 00:05 EDT] Nadya Garcia [Verified on: 12/22/2021 00:05 EDT] Nadya Garcia Normal [facility] Transfer Note [id number] [facility] [id number] [facility], [facility] called for transport to [facility]. Willie stated will call when back in area from [facility] Trip. [Electronically Signed on: 12/21/2021 22:14 EDT] Nadya Garcia [Verified on: 12/21/2021 22:14 EDT] Nadya Garcia [facility] .Auto Diff 1on 12-21-2021 Auto [place] % 7 % Normal 1-12 [facility] Comment on above: Performed By: #### 7 450695, [id number], 4799337, 09542771, 0066014, 4656184, 1120638023, 8312776, 7075808007 ####[facility] (DEFAULT)[address] [place] [address] 49080 Baso Abs# 0.0 x10 Normal 0.0-0.2 [facility] Comment on above: Performed By: #### 7 747541, [id number], 1468560, 12464629, 2787659, 8286929, 7155910504, 3515947, 6324295389 ####[facility] (DEFAULT)[address] [place] [address] Basophils/100 WBC (Bld) 0.4 % Normal 0.2-2.0 [facility] Comment on above: Performed By: #### 7 124213, 9869601248, 5056426, 98869075, 8765925, 0647937, 7355842579, 9598096, [id number] ####[facility] (DEFAULT)[address] [place] [address] 08379 Eos Abs# 0.1 x10 Normal 0.0-0.4 [facility] Comment on above: Performed By: #### 7 351963, 1632689731, 7412301, 74146928, 5276664, 3169081, 7832377607, 3844377, 2352743107 ####[facility] (DEFAULT)[address] [place] [address] 70462 Eosinophils/100 WBC (Bld) 0.7 % Low 0.9-4.0 [facility] Comment on above: Performed By: #### 7 064243, 1003044080, 3064608, 97204218, 3627490, 3464048, 3056389939, 5815237, 9344535533 ####[facility] (DEFAULT)[address] [place] [address] 07780 Lymph Abs# 3.2 x10 High 1.3-2.9 [facility] Comment on above: Performed By: #### 7 078256, 5790698224, 1136768, 95801304, 6476367, 4136013, 7697223140, 7098241, 9520510773 ####[facility] (DEFAULT)[address] [place] [address] 81618 Lymphocytes/100 WBC (Bld) 40 % Normal 14-48 [facility] Comment on above: Performed By: #### 7 369474, 7778178919, 9934167, 16781101, 5342351, 6463331, 3917894340, 9890607, 0938885282 ####[facility] (DEFAULT)[address] [place] [address] 14733 [place] Abs# 0.6 x10 Normal 0.0-0.8 [facility] Comment on above: Performed By: #### 7 264865, 2759590125, 8534717, 73760848, 7068454, 6162673, 0660044945, 5385861, 0500268105 ####[facility] (DEFAULT)[address] [place] [address] 23105 Neut Abs# 4.3 x10 Normal 1.5-9.2 [facility] Comment on above: Performed By: #### 7 999176, 9249532204, 9392942, 30039973, 3306199, 8847507, 7212396635, 8318957, 8143664475 ####[facility] (DEFAULT)[address] [place] [address] 03523 Neutrophils/100 WBC (Bld) 53 % Normal 44-88 [facility] Comment on above: Performed By: #### 7 914084, 8584876207, 4233159, 62942255, 4823627, 7814886, 3282882043, 2923488, 5934438386 ####[facility] (DEFAULT)[address] [place] [address] 38063 CBC w/ Auto Diffon 2 Erythrocyte distribution width (RBC) [Ratio] 14.3 % Normal 11.5-15.0 [facility] Comment on above: Performed By: #### 7 480814, 9141484768, 2380612, 83860123, 7059457, 7878845, 1342238783, 5894865, 2646278955 ####[facility] (DEFAULT)[address] [place] [address] 76778 Hematocrit (Bld) [Volume fraction] 42.3 % High 33.7-40.4 [facility] Comment on above: Performed By: #### 7 781984, 8041400905, 6684270, 75503365, 0093578, 9753229, 9639838120, 1110443, 3428574786 ####[facility] (DEFAULT)[address] [place] [address] 42363 Hemoglobin (Bld) [Mass/Vol] 13.7 g/dL Normal 11.3-15.9 [facility] Comment on above: Performed By: #### 7 117369, 4266342315, 1361297, 55846585, 6798944, 7780808, 6370311530, 3269530, 0688025228 ####[facility] (DEFAULT)[address] [place] [address] 50653 Instr WBC 8.2 x[address] [facility] Comment on above: Performed By: #### 7 966023, 0838680805, 3180366, 98992811, 4747803, 7802213, 1437533584, 6757463, 3230288599 ####[facility] (DEFAULT)[address] [place] [address] 66791 Man Diff? Auto Normal [facility] Comment on above: Performed By: #### 7 583359, 8613655159, 8049582, 20272895, 4215779, 6586369, 7734744306, 1631204, 2222807481 ####[facility] (DEFAULT)[address] [place] [address] 07157 MCH (RBC) [Entitic mass] 31 pg Normal 24-34 [facility] Comment on above: Performed By: #### 7 762662, 6035634186, 5672752, 78335668, 6632723, 7339674, 2818352343, 1648831, 6378972551 ####[facility] (DEFAULT)[address] [place] [address] 57547 MCHC (RBC) [Mass/Vol] 32 g/dL Normal 26-37 [facility] Comment on above: Performed By: #### 7 822769, 3687015376, 8163828, 59572910, 6447454, 7799578, 6415260543, 1025049, 4263012716 ####[facility] (DEFAULT)[address] [place] [address] 46342 MCV (RBC) [Entitic vol] 96 fL Normal 81-100 [facility] Comment on above: Performed By: #### 7 852410, 6704057191, 9351239, 88312044, 5667568, 9062699, 7719844660, 4299736, 5095302711 ####[facility] (DEFAULT)[address] [place] [address] 33356 Platelet 363 x10 Normal 138-427 [facility] Comment on above: Performed By: #### 7 802951, 2540646069, 2589957, 83388049, 5730911, 7122447, 1172756021, 3347728, 5652374710 ####[facility] (DEFAULT)[address] [place] [address] 56692 Platelet mean volume (Bld) [Entitic vol] 10.2 fL Normal 6.3-10.2 [facility] Comment on above: Performed By: #### 7 578014, 8250735542, 2653169, 39291498, 6167173, 8227617, 8822329514, 0590191, 7598806491 ####[facility] (DEFAULT)[address] [place] [address] 28259 RBC 4.42 x10 Normal 3.70-5.30 [facility] Comment on above: Performed By: #### 7 688021, 9557529965, 3666996, 42625503, 1900646, 1961588, 9167209359, 0609834, 0855378253 ####[facility] (DEFAULT)[address] [place] [address] 35862 WBC 8.2 x10 Normal 3.5-10.5 [facility] Comment on above: Performed By: #### 7 689981, 7299440764, 5629272, 25532325, 9059485, 3741231, 8902571159, 7558655, 4064785868 ####[facility] (DEFAULT)[address] [place] [address] 94307 [facility] Standardon 12-21-2021 eGFR Non AA 57 mL/min/1.73m2 Invalid Interpretation Code [facility] Comment on above: Performed By: #### 7 175146, 0185978760, 8550948, 10920147, 9266748, 2879347, 1695531988, 6539698, 7922270766 ####[facility] (DEFAULT)[address] [place] [address] 27264 eGFR AA >[address] [facility] Comment on above: Result Comment: Interior Design Professor nathalia Kidney disease could be indicated at eGFRs of less than 60 ml/min/1.73m2. Kidney Failure is indicated at less than 15 ml/min/1.73m2 Performed By: #### 7 683188, 3466778271, 6202508, 65500950, 4390749, 7795114, 3325929014, 8987151, 0259836244 ####[facility] (DEFAULT)[address] [place] [address] 67690 Albumin [Mass/Vol] 4.7 g/dL Normal 3.5-5.0 [facility] Comment on above: Performed By: #### 7 701027, 6384733728, 3687825, 52771541, 6509243, 5450697, 3743898410, 2287545, 4549662340 ####[facility] (DEFAULT)[address] [place] [address] 48445 Albumin/Globulin [Mass ratio] 1.1 {ratio} Low 1.4-2.6 [facility] [facility] Comment on above: Performed By: #### 7 870384, [id number], 6872358, 32844061, 9082373, 5610939, 6757174527, 8478511, 4830147233 ####[facility] (DEFAULT)[address] [place] [address] 54138 Alk Phos 99 IU/L High 32-91 [facility] Comment on above: Performed By: #### 7 987084, [id number], 2731377, 63559587, 5500019, 2202442, 8392017975, 2263440, [id number] ####[facility] (DEFAULT)[address] [place] [address] 39344 ALT [Catalytic activity/Vol] 32.0 U/L Normal 14.0-54.0 [facility] Comment on above: Performed By: #### 7 654734, [id number], 7675678, 94595966, 4249999, 2272504, 2711998524, 4122793, 8756337040 ####[facility] (DEFAULT)[address] [place] [address] 94159 Anion gap [Moles/Vol] 23.0 mmol/L High 5.0-19.0 [facility] Comment on above: Performed By: #### 7 613101, [id number], 4417706, 06544849, 4449020, 6154568, 7602480359, 4205482, 0555182106 ####[facility] (DEFAULT)[address] [place] [address] 68906 AST [Catalytic activity/Vol] 41 U/L Normal 15-41 [facility] Comment on above: Performed By: #### 7 723607, [id number], 2556082, 08279565, 9442725, 0191212, 0445393850, 2586457, 6635873073 ####[facility] (DEFAULT)[address] [place] [address] 71485 Bili Total 0.4 mg/dL Normal 0.3-1.2 [facility] Comment on above: Performed By: #### 7 518050, 7937898384, 1856133, 75108155, 6445226, 1044449, 3102659871, 9773260, 4154480747 ####[facility] (DEFAULT)[address] [place] [address] 35862 Calcium [Mass/Vol] 10.2 mg/dL Normal 8.9-10.3 [facility] Comment on above: Performed By: #### 7 443406, 5896385521, 4262579, 89105901, 1698801, 9282084, 1504422573, 7103768, 7830575950 ####[facility] (DEFAULT)[address] [place] [address] 72256 Chloride [Moles/Vol] 96 mmol/L Low 101-111 [facility] Comment on above: Performed By: #### 7 913218, 7955802710, 8635787, 76155718, 9673976, 2881515, 9036815610, 1498947, 8649960511 ####[facility] (DEFAULT)[address] [place] [address] 50750 CO2 [Moles/Vol] 24 mmol/L Normal 21-32 [facility] Comment on above: Performed By: #### 7 889522, 1255901626, 1841131, 37498196, 8267030, 8643519, 7613200264, 3272704, 3438571680 ####[facility] (DEFAULT)[address] [place] [address] 27687 Creatinine [Mass/Vol] 1.10 mg/dL Normal 0.60-1.30 [facility] Comment on above: Performed By: #### 7 887207, [id number], 2544902, 37173816, 2733257, 5686775, 9821906628, 2135233, 6560296223 ####[facility] (DEFAULT)[address] [place] [address] 47525 Globulin (S) [Mass/Vol] 4.2 g/dL Normal 1.5-4.3 [facility] Comment on above: Performed By: #### 7 017528, 7485739220, 2989353, 26408485, 7762751, 1852715, 2404933821, 4656037, 8646346021 ####[facility] (DEFAULT)[address] [place] [address] 44989 Glucose [Mass/Vol] 97.0 mg/dL Normal 74.0-118.0 [facility] Comment on above: Performed By: #### 7 168353, 7839417157, 8512619, 30475188, 9142110, 1133751, 1506257832, 7340512, 3784941115 ####[facility] (DEFAULT)[address] [place] [address] 90551 Osmolality 278 mOsm/L Invalid Interpretation Code [facility] Comment on above: Performed By: #### 7 527630, 2344322549, 9912893, 15180156, 0788583, 2621002, 6776845703, 5039967, 2321743742 ####[facility] (DEFAULT)[address] [place] [address] 87864 Potassium [Moles/Vol] 3.5 mmol/L Low 3.6-5.1 [facility] Comment on above: Performed By: #### 7 155562, 7124718679, 6535068, 02164419, 4699823, 4646234, 6954636538, 5707003, 2481563353 ####[facility] (DEFAULT)[address] [place] [address] 90347 Protein [Mass/Vol] 8.9 g/dL High 6.5-8.1 [facility] Comment on above: Performed By: #### 7 023042, 3120455831, 3502344, 41237751, 8556907, 8597049, 8903318621, 2267818, 1196318259 ####[facility] (DEFAULT)[address] [place] [address] 56380 Sodium [Moles/Vol] 139.0 mmol/L Normal 136.0-144.0 [facility] Comment on above: Performed By: #### 7 342750, 2727073089, 8957391, 70044117, 9394899, 4994750, 4434372656, 0039744, 4606920134 ####[facility] (DEFAULT)[address] [place] [address] 29954 Urea nitrogen [Mass/Vol] 15 mg/dL Normal 8-26 [facility] Comment on above: Performed By: #### 7 342104, 2751923685, 8947064, 12842235, 6650467, 1618143, 0542347247, 9900905, 6663271160 ####[facility] (DEFAULT)[address] [place] [address] Urea nitrogen/Creatinine [Mass ratio] 14.0 mg/mg Normal 4.6-16.2 [facility] Comment on above: Performed By: #### 7 025727, 6273166946, 6670484, 20938657, 1276107, 7137096, 6200750346, 7434506, 3497199832 ####[facility] (DEFAULT)[address] [place] [address] Head or Brain w/o Contras ton [...] 9:19 pm Technologist: Erwin CHAUDHARI Normal [facility] D-Dimeron 12-21-2021 D-Dimer 0.49 mg/L FEU Normal 0.19-0.50 [facility] Comment on above: [...] Liver cirrhosis ? Performed By: #### 7 568766, 3743109158, 5993478, 22894223, 4497725, 8384078, 9612255323, 6326494, 7428856943 ####[facility] (DEFAULT)[address] [place] [address] ED Note - Otheron 12-21-2021 ED Note - Other Neurology called back from [facility], on phone with Mariajose LLANES [Electronically Signed on: 12/21/2021 21:29 EDT] Nadya Garcia [Verified on: 12/21/2021 21:29 EDT] Radha, [facility] ED Note - Other paging Neurology through [facility] for consult for Mariajose LLANES [Electronically Signed on: 12/21/2021 21:12 EDT] Nadya Garcia [Verified on: 12/21/2021 21:12 EDT] Nadya Garcia [facility] ED Note - Physicianon 2021 ED [...] - pharynx pink and moist. NECK: -Supple ([id number]): non-tender. CARD: -Rate and rhythm: Regular -Edema: [...] di (more content not included)... Normal [facility] ED Note-Nursingon 12-21-2021 ED Note-Nursing Core Driller Helper assumed care for pt at 2124. Pt had fluids running at that time. Will continue to give the rest of the liter per VO from MARIO ALBERTO. MARIO ALBERTO also stated that after speaking with neuro, pt is to be transferred to [facility] for MRI and further evaluation. Normal [facility] Ethanol.on 12-21-2021 Ethanol Level 9.0 mg/dL High 0.0-5.0 [facility] Comment on above: Performed By: #### 2 [id number] #### [facility] (DEFAULT) [address] [place] [address] Extra [place] 12-21-2021 Tube Collected Yes Invalid Interpretation Code [facility] Comment on above: Performed By: #### 2 070071, [id number] #### [facility] (DEFAULT) [address] [place] [address] Extra Redon 12-21-2021 Tube Collected Yes Invalid Interpretation Code [facility] Comment on above: Performed By: #### 7 741837, 4246672270, 4193004, 06469883, 8379284, 6764352, 8319334710, 0453588, 0915764035 #### [facility] (DEFAULT) [address] [place] [address] 51277 Magnesiumon 12-21-2021 Magnesium [Mass/Vol] 2.02 mg/dL Normal 1.80-2.50 [facility] Comment on above: Performed By: #### 7 999543, 3087802542, 2655597, 41843275, 1331327, 4648682, 4825973237, 4055890, 2561729854 ####[facility] (DEFAULT)[address] [place] [address] 36545 PTon 12-21-2021 INR Coag (PPP) [Relative time] 0.94 {INR} Normal 0.91-1.11 [facility] Comment on above: Performed By: #### 7 796947, 2211596823, 9389612, 39999790, 5122885, 8749449, 5614277295, 1101549, 2295367078 ####[facility] (DEFAULT)[address] [place] [address] PT 10.2 second(s) Normal 9.7-11.8 [facility] Comment on above: Performed By: #### 7 400791, 2722080034, 2956268, 81275144, 8755934, 9842921, 4959430304, 9143632, 3462119155 ####[facility] (DEFAULT)[address] [place] [address] 72852 PTTon 12-21-2021 PTT 26 second(s) Normal 25-35 [facility] Comment on above: Performed By: #### 7 300055, 8886098634, 8933195, 00875488, 1572918, 4594254, 8839174800, 7592681, 1082308404 ####[facility] (DEFAULT)[address] [place], [place] [address] Test Urine [address] P[address] Negative Normal [facility] Comment on above: Performed By: #### 1 842069993, 121473604 ####[facility] (DEFAULT)[address] [place] [address] 68851 U Preg Internal Control Pass [facility] Comment on above: Performed By: #### 1 139747971, 508493390 ####[facility] (DEFAULT)[address] [place] [address] 01849 Salicylateon 12-21-2021 Salicylate Lvl <4.0 Normal 0.0-30.0 [facility] Comment on above: Result Comment: Sali cylate ranges less than 30 mg/dL are considered to be therapeutic. Levels greater than 30 mg/dL are considered toxic and levels greater than 60 mg/dL may be lethal. Performed By: #### 2 431246, [id number] #### [facility] (DEFAULT) [address] [place] [address] 62402 TnI HSon 12-21-2021 Troponin I High Sensitivity <2 Normal <=15 [facility] Comment on above: Result Comment: Male Baseline Delta 1Hr (Note pg/mL=ng/L) <20pg/mL 50-60% >20pg/mL 20% Female Baseline Delta 1Hr <15pg/mL 50-60% >15pg/mL 20% Other Baseline Delta 1Hr <18ng/mL 50-60% >18ng/mL 20% ([place] [employer] Guidelines February 2018) Performed By: #### 7 603410, 2642261188, 0169129, 03446684, 7170500, 3971747, 4378882335, 8429591, 1150900471 ####[facility] (DEFAULT)[address] [place] [address] 29187 Triage Panel 12on 12-21-2021 Triage Internal Control Pass Normal [facility] Comment on above: Performed By: #### 1 [id number] ####[facility] (DEFAULT)[address] [place] [address] 24179 U Amph Scr Negative [facility] Comment on above: Performed By: #### 1 [id number] ####[facility] (DEFAULT)[address] [place] [address] 41482 U Vanesa Scr Negative [facility] Comment on above: Performed By: #### 1 [id number] ####[facility] (DEFAULT)[address] [place] [address] 63302 U Benzodia Scr Negative Normal [facility] Comment on above: Performed By: #### 1 936147065 ####[facility] (DEFAULT)[address] [place] [address] 77388 U Cannab Scrn Negative [facility] Comment on above: Performed By: #### 1 [id number] ####[facility] (DEFAULT)[address] [place] [address] 41220 U Cocaine Scr Negative Normal [facility] Comment on above: Performed By: #### 1 [id number] ####[facility] (DEFAULT)[address] [place] [address] 07837 U Methadone Scr Negative [facility] Comment on above: Performed By: #### 1 [id number] ####[facility] (DEFAULT)[address] [place] [address] 07823 U Methamp Scrn Negative [facility] Comment on above: Performed By: #### 1 [id number] ####[facility] (DEFAULT)[address] [place] [address] 64292 U Opiate Scr Negative [facility] Comment on above: Performed By: #### 1 [id number] ####[facility] (DEFAULT)[address] [place] [address] 96231 U Oxycod Scr Negative Normal [facility] Comment on above: Performed By: #### 1 [id number] ####[facility] (DEFAULT)[address] [place] [address] 73373 U Phencyclidine Scr Negative Normal [facility] Comment on above: Performed By: #### 1 [id number] ####[facility] (DEFAULT)[address] [place] [address] 64120 U Propoxyphene Scr Negative Normal [facility] Comment on above: Performed By: #### 1 [id number] ####[facility] (DEFAULT)[address] [place] [address] 47487 U Tricyclic Antidepress Scr Negative Normal [facility] Comment on above: [...] PPX Propoxyphene (Norpropoxyphene): 300 ng/mL THC Cannabinoids (38-xkz-3-carboxy- -THC): 50 ng/mL TCA Tricyclic-Antidepressants (Desipramine): 300 ng/mL Performed By: #### 1 [id number] ####[facility] (DEFAULT)[address] [place] [address] Urine Source Clean Catch [facility] Comment on above: Performed By: #### 1 [id number] ####[facility] (DEFAULT)[address] [place] [address] 28439 UA w Culture if Ind Standard on 12-21-2021 Color (U) Yellow Normal [facility] Comment on above: Performed By: #### 1 [id number], [id number] ####[facility] (DEFAULT)[address] [place] [address] 47537 Culture? Not Indicated Invalid Interpretation Code [facility] Comment on above: Result Comment: Resu lt created by rule GL_MAGR_ADD_UA_CULT1 Performed By: #### 1 [id number], [id number] ####[facility] (DEFAULT)[address] [place] [address] 14469 Glucose (U) [Mass/Vol] Negative Normal [facility] Comment on above: Performed By: #### 1 [id number], 156491438 ####[facility] (DEFAULT)[address] [place] [address] 30327 Ketones Ql (U) Negative Normal [facility] Comment on above: Performed By: #### 1 563382737, [id number] ####[facility] (DEFAULT)[address] [place] [address] 45807 Micro? Not Indicated Invalid Interpretation Code [facility] Comment on above: Result Comment: Resu lt created by rule GL_MAGR_ADD_UA_MICRO Performed By: #### 1 [id number], [id number] ####[facility] (DEFAULT)[address] [place] [address] 35118 UA Bilirubin Negative Normal [facility] Comment on above: Performed By: #### 1 [id number], 854752315 ####[facility] (DEFAULT)[address] [place] [address] 25987 UA Blood Negative Normal NEGATIVE [facility] Comment on above: Performed By: #### 1 [id number], 897243705 ####[facility] (DEFAULT)[address] [place] [address] 69727 UA Clarity CLEAR Normal CLEAR [facility] Comment on above: Performed By: #### 1 [id number], [id number] ####[facility] (DEFAULT)[address] [place] [address] 66350 UA Leuk Est Negative Normal NEGATIVE [facility] Comment on above: Performed By: #### 1 526013387, 321896627 ####[facility] (DEFAULT)[address] [place] [address] 79897 UA Nitrite Negative Normal NEGATIVE [facility] Comment on above: Performed By: #### 1 524406097, 812525646 ####[facility] (DEFAULT)[address] [place] [address] 79114 UA pH 6.5 Normal 5-8 [facility] Comment on above: Performed By: #### 1 [id number], 607693100 ####[facility] (DEFAULT)[address] [place] [address] 55991 UA Protein Negative Normal NEGATIVE [facility] Comment on above: Performed By: #### 1 836276415, 707267882 ####[facility] (DEFAULT)[address] [place] [address] UA Spec Grav <=1.005 Normal 1.001-1.035 [facility] Comment on above: Performed By: #### 1 [id number], 110504549 ####[facility] (DEFAULT)[address] [place] [address] UA Urobilinogen 0.2 mg/dL Normal 0.2-1.0 [facility] Comment on above: Performed By: #### 1 354354861, 796699304 ####[facility] (DEFAULT)[address] [place] [address] [facility] Comment on above: Performed By: #### 1 [id number], 133641692 ####[facility] (DEFAULT)[address] [place] [address] 26223 Urine Source Clean Catch Normal [facility] Comment on above: Performed By: #### 1 [id number], [id number] ####[facility] (DEFAULT)[address] [place] [address] 88864 XR Chest 2 Viewson XR Chest 2 [...] 12/21/21 9:38 pm Technologist: SRF,L Normal [facility] CARDIAC HUMAIRA ADMITon 021 CK [Catalytic activity/Vol] 117 U/L Normal 30-135 [facility] Comment on above: Performed By: #### T SH, CMADM, CMP #### [facility] [address] [place], [place] [address] Nelida Bautista CK.MB [Mass/Vol] 1.16 ng/mL Normal <=2.37 [facility] Comment on above: Performed By: #### T SH, CMADM, CMP #### [facility] [address] [place] [address] Nelida Lily HSTROP <4.0 Normal 4.0-35.5 [facility] Comment on above: Result Comment: CUT- OFF POINTS HAVE BEEN ESTABLISHED BASED ON THE FOURTH UNIVERSAL DEFINITIONS OF MYOCARDIAL INFARCTION. THE UPPER REFERENCE LIMIT (URL) OF TROPONIN, DEFINED THE 99TH PERCENTILE OF cTnI DISTRIBUTION IN A REFERENCE POPULATION, HAS BEEN CONFIRMED THE DECISION THRESHOLD FOR CT DIAGNOSIS. Performed By: #### T HAYDE, CMADM, CMP #### [facility] [address] [place] [address] Nelida Lily NGA 41.0 ng/mL Normal <=61.5 [facility] Comment on above: Performed By: #### T HAYDE, CMADM, CMP #### [facility] [address] [place], [place] [address] Nelida Lily CBC AUTO DIFFon 02-23-2021 BASO # 0.1 103/ul Normal 0.0-0.1 [facility] Comment on above: Performed By: #### C BC #### [facility] [address] [place] [address] Nelida Lily Basophils/100 WBC (Bld) 1.0 % Normal 0.2-2.0 [facility] Comment on above: Performed By: #### C BC #### [facility] [address] [place], [place] [address] Nelida Lily EO # 0.1 103/ul Normal 0.0-0.7 [facility] Comment on above: Performed By: #### C BC #### [facility] [address] [place], [place] [address] Nelida Lily Eosinophils/100 WBC (Bld) 2.2 % Normal 0.9-7.0 [facility] Comment on above: Performed By: #### C BC #### [facility] [address] [place] [address] Nelida Bautista Erythrocyte distribution width (RBC) [Ratio] 14.2 % Normal 11.0-15.0 [facility] Comment on above: Performed By: #### C BC #### [facility] [address] [place] [address] Nelida Lily Hematocrit (Bld) [Volume fraction] 40.6 % Normal 36.0-48.0 [facility] Comment on above: Performed By: #### C BC #### [facility] [address] [place] [address] Nelida Lily Hemoglobin (Bld) [Mass/Vol] 13.3 g/dL Normal 12.0-16.0 [facility] Comment on above: Performed By: #### C BC #### [facility] [address] [place] [address] Nelidajose Bautista IG # 0.02 10e3/ul Normal 0.00-0.03 [facility] Comment on above: Performed By: #### C BC #### [facility] [address] [place] [address] Nelida Bautista IG % 0.4 % Normal 0.0-0.5 [facility] Comment on above: Performed By: #### C BC #### [facility] [address] [place] [address] Nelida Lily LYMPH # 1.7 103/ul Normal 1.2-3.8 [facility] Comment on above: Performed By: #### C BC #### [facility] [address] [place] [address] Nelida Bautista Lymphocytes/100 WBC (Bld) 34.6 % Normal 20.5-60.0 [facility] Comment on above: Performed By: #### C BC #### [facility] [address] [place] [address] Nelida Bautista MANUAL DIFF REQ NO Normal [facility] Comment on above: Performed By: #### C BC #### [facility] [address] [place], [place] [address] Nelidajose Bautista MCH (RBC) [Entitic mass] 31.5 pg Normal 26.7-34.0 [facility] Comment on above: Performed By: #### C BC #### [facility] [address] [place] [address] Nelidajose Bautista MCHC (RBC) [Mass/Vol] 32.8 g/dL Normal 29.9-35.2 [facility] Comment on above: Performed By: #### C BC #### [facility] [address] [place], [place] [address] Nelidajose Bautista MCV (RBC) [Entitic vol] 96.2 fL Normal 81.0-99.0 [facility] Comment on above: Performed By: #### C BC #### [facility] [address] [place] [address] Nelidajose Kimbleen MONO # 0.4 103/ul Normal 0.3-0.8 [facility] Comment on above: Performed By: #### C BC #### [facility] [address] [place], [place] [address] Nelida Lily Monocytes/100 WBC (Bld) 7.1 % Normal 1.7-12.0 [facility] Comment on above: Performed By: #### C BC #### [facility] [address] [place], [place] [address] Nelidajose Kimbleen NEUT # 2.7 103/ul Normal 1.4-6.5 [facility] Comment on above: Performed By: #### C BC #### [facility] [address] [place], [place] [address] Nelida Lily Neutrophils/100 WBC (Bld) 54.7 % Normal 43.0-75.0 [facility] Comment on above: Performed By: #### C BC #### [facility] [address] [place], [place] [address] Nelida Lily Platelet mean volume (Bld) [Entitic vol] 9.8 fL Normal 9.5-13.5 [facility] Comment on above: Performed By: #### C BC #### [facility] [address] [place], [place] [address] Nelida Lily PLT 320 103/ul Normal 150-450 [facility] Comment on above: Performed By: #### C BC #### [facility] [address] [place] [id number] Nelida Lily RBC 4.22 106/ul Normal 4.20-5.40 [facility] Comment on above: Performed By: #### C BC #### [facility] [address] [place], [place] [address] Nelida Lily WBC 4.9 103/ul Normal 4.0-11.0 [facility] Comment on above: Performed By: #### C BC #### [facility] [address] [place], [place] [address] STROKE HEAD WOon 02-24-20 [...] JANESSA SKINNER Date: 2021-02-23 13:52 Normal [facility] ER URINE PROFILEon 1 Bilirubin Ql (U) Negative Normal NEGATIVE [facility] Comment on above: Performed By: #### E RUR #### [facility] [address] [place], [place] [address] Nelida Bautista Clarity (U) CLEAR Normal CLEAR [facility] Comment on above: Performed By: #### E RUR #### [facility] [address] [place] [address] Nelida Lily Color (U) LT. YELLOW Normal YELLOW [facility] Comment on above: Performed By: #### E RUR #### [facility] [address] [place], [place] [address] Nelida Lily ERUAHD A micrscopic examination will be performed if indicated. Normal [facility] Comment on above: Performed By: #### E RUR #### [facility] [address] [place] [address] Nelida Lily Glucose Ql (U) Negative Normal NEGATIVE [facility] Comment on above: Performed By: #### E RUR #### [facility] [address] [place] [address] Nelida Lily Hemoglobin Ql (U) Negative Normal NEGATIVE [facility] Comment on above: Performed By: #### E RUR #### [facility] [address] [place] [address] Nelida Lily Ketones Ql (U) Negative Normal NEGATIVE [facility] Comment on above: Performed By: #### E RUR #### [facility] [address] [place] [address] Nelida Lily LEUKOCYTES Negative Normal NEGATIVE [facility] Comment on above: Performed By: #### E RUR #### [facility] [address] [place] [address] Nelida Lily Nitrite Ql (U) Negative Normal NEGATIVE [facility] Comment on above: Performed By: #### E RUR #### [facility] [address] [place] [address] Nelida Lily pH (U) 8.0 [pH] Normal 5-9 [facility] Comment on above: Performed By: #### E RUR #### [facility] [address] [place] [address] Nelida Lily SPEC GRAVITY 1.020 Normal 1.005-<=1.025 [facility] Comment on above: Performed By: #### E RUR #### [facility] [address] [place] [address] Nelida Lily UA PROTEIN Negative Normal NEGATIVE/ TRACE [facility] Comment on above: Performed By: #### E RUR #### [facility] [address] [place], [place] [address] Nelidajose Bautista UR MICRO IND NOT INDICATED Normal [facility] Comment on above: Performed By: #### E RUR #### [facility] [address] [place], [place] [address] Nelida Bautista Urobilinogen Qn (U) 0.2 {Jose Carlos'U}/dL Normal 0.2 - 1. 0 [facility] Comment on above: Performed By: #### E RUR #### [facility] [address] [place], [place] [id number] Nelida Bautista POINT OF CARE GLUCOSEon 01-27 Glucose [Mass/Vol] 95 mg/dL Normal 74-106 [facility] Comment on above: Performed By: #### P OCGLUC #### [facility] [address] [place], [place] [id number] Nelida Bautista PREG HCG QUALon 02-23-2021 , QUAL Negative Normal NEGATIVE [facility] Comment on above: Performed By: #### P REG #### [facility] [address] [place] [address] Nelida Bautista PROF 14(COMP METB)on 021 Albumin [Mass/Vol] 3.6 g/dL Normal 3.5-5.0 [facility] Comment on above: Performed By: #### T JOÃO LOCK, CMP #### [facility] [address] [place] [address] Nelida Bautista Albumin/Globulin [Mass ratio] 0.9 {ratio} Normal [facility] Comment on above: Performed By: #### T JOÃO LOCK, CMP #### [facility] [address] [place], [place] [id number] Nelida Bautista ALP [Catalytic activity/Vol] 103 U/L Normal 38-126 [facility] Comment on above: Performed By: #### T JOÃO LOCK, CMP #### [facility] [address] [place] [address] Nelida Lily ALT [Catalytic activity/Vol] 35 U/L Normal 9-52 [facility] Comment on above: Performed By: #### T JOÃO LOCK, CMP #### [facility] [address] [address] Nelida Lily Anion gap [Moles/Vol] 13.3 mmol/L Normal [facility] Comment on above: Performed By: #### T JOÃO LOCK, CMP #### [facility] [address] [address] Nelida Lily AST [Catalytic activity/Vol] 28 U/L Normal 14-36 [facility] Comment on above: Performed By: #### T JOÃO LOCK, CMP #### [facility] [address] [place] [address] Nelida Lily Bilirubin [Mass/Vol] 0.2 mg/dL Normal 0.2-1.3 [facility] Comment on above: Performed By: #### T JOÃO LOCK, CMP #### [facility] [address] [place] [address] Nelida Lily Calcium [Mass/Vol] 9.0 mg/dL Normal 8.4-10.2 [facility] Comment on above: Performed By: #### T JOÃO LOCK, CMP #### [facility] [address] [place] [address] Nelida Lily Chloride [Moles/Vol] 108 mmol/L Critically high 98-107 [facility] Comment on above: Performed By: #### T JOÃO LOCK, CMP #### [facility] [address] [place] [address] Nelida Lily CO2 [Moles/Vol] 25.8 mmol/L Normal 22.0-30.0 [facility] Comment on above: Performed By: #### T JOÃO LOCK, CMP #### [facility] [address] [place] [address] Nelida Lily Creatinine [Mass/Vol] 1.00 mg/dL Normal 0.52-1.04 [facility] Comment on above: Performed By: #### T JOÃO LOCK, CMP #### [facility] [address] [place], [place] [address] Nelida Lily EGFR-AF MALTESE >60 Normal >=60 [facility] Comment on above: Performed By: #### T JOÃO LOCK, CMP #### [facility] [address] [place], [place] [address] Nelida Lily EGFR-NON AF MALTESE >60 Normal >=60 [facility] Comment on above: Performed By: #### T JOÃO LOCK, CMP #### [facility] [address] [id number] Nelida Lily Globulin (S) [Mass/Vol] 4.2 g/dL Normal [facility] Comment on above: Performed By: #### T JOÃO LOCK, CMP #### [facility] [address] [address] Nelida Lily Glucose [Mass/Vol] 95 mg/dL Normal 74-106 [facility] Comment on above: Performed By: #### T JOÃO LOCK, CMP #### [facility] [address] [address] Nelida Lily Potassium [Moles/Vol] 4.1 mmol/L Normal 3.4-5.0 [facility] Comment on above: Performed By: #### T JOÃO LOCK, CMP #### [facility] [address] [id number] Nelida Lily Protein [Mass/Vol] 7.8 g/dL Normal 6.1-8.2 [facility] Comment on above: Performed By: #### T JOÃO LOCK, CMP #### [facility] [address] [address] Nelida Lily Sodium [Moles/Vol] 143 mmol/L Normal 137-145 [facility] Comment on above: Performed By: #### T JOÃO LOCK, CMP #### [facility] [address] [id number] Nelida Lily Urea nitrogen [Mass/Vol] 10.0 mg/dL Normal 7.0-17.0 [facility] Comment on above: Performed By: #### T JOÃO LOCK, CMP #### [facility] [address] [place], [place] [address] Nelida Bautista Urea nitrogen/Creatinine [Mass ratio] 10.0 mg/mg Normal [facility] Comment on above: Performed By: #### T JOÃO LOCK, CMP #### [facility] [address] [place], [place] [address] Nelida Bautista TSHon 02-23-2021 TSH 1.157 uIU/mL Normal 0.470-4.680 [facility] [place] [facility] Comment on above: Performed By: #### T JOÃO LOCK, CMP #### [facility] [address] [phone] Nelida Bautista TSH RANGE SEE BELOW Normal [facility] Comment on above: Result Comment: <0.3 4 UIU/ml HYPERTHYROID 0.34-5.60 UIU/ml EUTHYROID >5.60 UIU/ml HYPOTHYROID Performed By: #### T JOÃO LOCK, CMP #### [facility] [address] [phone] Nelida Bautista XR CHEST 1 Von 02-23-2021 [...] JANESSA SKINNER Date: 2021-02-23 13:53 Normal [facility] Encounters Encounter Date Encounter Type Care [...] Start: 12-22-2021 End: 12-22-2021 ambulatory JARVIS RODRIGUEZ [facility] Start: 02-23-2021 End: 02-23-[address] [place] [facility] [place] Payers Date Payer Category Payer Unknown [id number] 1985 Unknown [id number] 2.16.84 [id number] 1987 Unknown [id number] 2.16.84 [id number] 1987 Unknown [id number] 2.16.84 [id number] 1987 Unknown [id number] 2.16.84 [id number] 1987 Unknown [id number] 2.16.84 [id number] 1987 Unknown [id number] 2.16.84 [id number] 1987 Unknown [id number] 2.16.84 [id number] 1987 Unknown [id number] 2.16.84 [id number] 1987 Unknown [id number] 2.16.84 [id number] 1987 Unknown [id number] 2.16.84 [id number] 1987 Unknown [id number] 2.16.84 [id number] 1987 Unknown [id number] 2.16.84 [id number] 1959 Unknown [id number] Summary Purpose Family History No Family History Records FoundNo Family History Records FoundNo Family History Records FoundNo Family History Records Found Advance Directives No Advanced Directives Records FoundNo Advanced Directives Records FoundNo Advanced Directives Records FoundNo Advanced Directives Records Found Additional Source Comments INFORMATION SOURCE (unrecogn ized section and content) DATE CREATED AUTHOR 02/28/2021 [facility] DATE CREATED AUTHOR AUTHOR'S ORGANIZ ATION 12/24/2021 [facility] DATE CREATED AUTHOR AUTHOR'S ORGANIZ ATION 01/01/2022 [facility] DATE CREATED AUTHOR AUTHOR'S ORGANIZ ATION 02/24/2024 [facility] EPIC FOR RECORDS PERTAINING [...] BE BASED ON THE PRIMARY CLINICAL RECORDS. [facility] [employer] [facility]. provides no warranty or guarantee of the accuracy or completeness of information in this document.
[2024-02-26 07:03] LABS: Bilirubin Urine NEGATIVE (NEGATIVE); Blood Urine NEGATIVE (NEGATIVE); Clarity Urine CLEAR (CLEAR); Color Urine LT. YELLOW (YELLOW); Glucose Urine UA NEGATIVE (NEGATIVE); Ketones Urine NEGATIVE (NEGATIVE); Leukocyte Esterase Urine NEGATIVE (NEGATIVE); Nitrite Urine NEGATIVE (NEGATIVE); Protein Urine NEGATIVE (NEG/TRACE); Urobilinogen Urine 0.2 EU/dL (0.2-1.0); pH Urine 6.5 (5.0-9.0)
[2024-02-26 07:04] LABS: Urine Microscopic Indicated NO
[2024-02-26 08:48] LABS: Hematocrit 38.6 % (36.0-48.0); Hemoglobin 12.7 g/dL (12.0-16.0); Mean Corpuscular HGB Conc 32.9 g/dL (29.9-35.2); Mean Corpuscular Volume 91.3 fL (81.0-99.0); Mean Platelet Volume 10.6 fL (9.5-13.5); Platelet Count 303 10^3/uL (150-450); Red Blood Count 4.23 10^6/uL (4.20-5.40); Red Cell Distribution Width 15.2 % (11.0-15.0); White Blood Count 9.8 10^3/uL (4.0-11.0)
[2024-02-26] MEDS: LABETALOL HCL 20 MG/4 ML SYRINGE 5 MG IVP (09:48)
[2024-02-26 09:53] LABS: Cannabinoid Screen Urine NEGATIVE (NEGATIVE); Phencyclidine Screen Urine NEGATIVE (NEGATIVE)
[2024-02-26 09:54] LABS: Amphetamine Screen Urine NEGATIVE (NEGATIVE); Barbiturates Screen Urine NEGATIVE (NEGATIVE); Benzodiazepines Screen Urine NEGATIVE (NEGATIVE); Buprenorphine Screen Urine NEGATIVE (NEGATIVE); Cocaine Screen Urine NEGATIVE (NEGATIVE); Methadone Screen Urine NEGATIVE (NEGATIVE); Methamphetamines Screen Urine NEGATIVE (NEGATIVE); Opiate Screen Urine NEGATIVE (NEGATIVE); Oxycodone Screen Urine NEGATIVE (NEGATIVE); Tricyclic Antidepressant Urine NEGATIVE (NEGATIVE)
[2024-02-26 10:19] LABS: Creatinine Urine Random 38.83 mg/dL (20.00-300.00); Protein Creatinine Ratio Urine 0.31; Total Protein Urine Random 11.9 mg/dL (<=11.9)
[2024-02-26 10:26] LABS: Alanine Aminotransferase 29 U/L (14-59); Albumin Globulin Ratio 0.6; Albumin Level 2.4 g/dL (3.4-5.0); Alkaline Phosphatase 224 U/L (46-116); Anion Gap 14.7; Aspartate Amino Transferase 24 U/L (15-37); BUN Creatinine Ratio 9.3; Bilirubin Total 0.3 mg/dL (0.2-1.0); Calcium 9.3 mg/dL (8.5-10.1); Carbon Dioxide 21.8 mmol/L (21.0-32.0); Chloride 105 mmol/L (98-107); Estimated GFR (African America >60 (>=60); Estimated GFR (Non-African Ame >60 (>=60); Globulin 4.2 g/dL; Glucose 120 mg/dL (74-106); Lactate Dehydrogenase 169 U/L (81-234); Potassium 3.5 mmol/L (3.5-5.1); Sodium 138 mmol/L (136-145); Total Protein 6.6 g/dL (6.4-8.2); Uric Acid 4.9 mg/dL (2.6-6.0)
[2024-02-26] MEDS: LABETALOL HCL 20 MG/4 ML SYRINGE 10 MG IVP (10:29)
[2024-02-26] MEDS: 0.9 % SODIUM CHLORIDE 1,000 ML 75 ML IV (10:50)
[2024-02-26] MEDS: MAGNESIUM SULFATE IN WATER 4 GM/100 ML PIGGYBACK IV (11:02)
[2024-02-26] MEDS: MAGNESIUM SULFATE IN WATER 40 GM/1,000 ML IV.SOLN IV (11:25)
--- NOTE | 2024-02-26 11:44 | P.OBHP_ITS ---
OB - H&P: HPI History of Present Illness Chief complaint: ELDER JORGENSEN : 1 Para: 0 Date of last menstrual period: 05/31/23 Gestational age based on last menstrual period: 38.4 Indications for induction: other (PRESENTED WITH SROM AT 38.4, PAM ON OWN, CAT I TRACING,INTERMITTANT BLOOD PRESSURES HIGH, NO HISTORY OF HYPERTENSION, WILL AUGMENT IF NEEDED) Narrative: CONTRACTIONS PALPATE MEDIUM TO STRONG. PREECLAMPSIA LABS INDICATED MILD PREECLAMPSIA. MAGNESIUM STARTED. BABY CAT I. AMA. PRIMIP. History of Present Dating criteria: LMP confirmed by 2nd trimester US care: good care Ultrasounds: normal 1st trimester US and normal mid trimester US complications: preeclampsia (DIAGNOSED TODAY ON MATERNITY) and gestational diabetes Medical complications OB: other (PRIMIP, AMA, INCREASED BMI) Labs Narrative: REFER TO PATIENT'S OFFICE CHART Review of Systems ROS NO HEADACHE, NO RUQ PAIN, NO EPIGASTRIC PAIN, NO CLONUS, 2 PLUS PITTING EDEMA, NO VISUAL CHANGES Status of ROS: 10 or more systems reviewed and unremarkable except as noted in history and below PFSH PFS Medical History (Updated 02/26/24 @ 12:01 by Hannah Parsons MD) Cholecystectomy planned HSV (herpes simplex virus) infection ?B00.9 - Herpesviral infection, unspecified (ICD-10) Surgical History (Updated 02/26/24 @ 08:01 by Chloé Connor RN) History of carpal tunnel surgery of right wrist ?Z98.890 - Other specified postprocedural states (ICD-10) Family History (Updated 02/26/24 @ 08:02 by Chloé Connor RN) Father Family history of diabetes mellitus Mother Family history of diabetes mellitus Family history of hypertension Family history of myocardial infarction Family history of stroke Social History Highest level of school completed/degree received: GED or equivalent Meds Home Medications and Allergies Home Medications ?Medication ?Instructions ?Recorded ?Confirmed ?Type aspirin 81 mg chewable tablet 81 mg PO DAILY 01/27/24 02/26/24 History vit no.95-ferrous 1 tab PO DAILY 01/27/24 02/26/24 History fumarate 28 mg-folic acid 800 mcg tablet () valacyclovir 500 mg tablet 500 mg PO DAILY 01/27/24 02/26/24 History (Valtrex) Allergies Allergy/AdvReac Type Severity Reaction Status Date / Time No Known Drug Allergies Allergy Verified 02/26/24 07:59 Exam Constitutional Vital Signs, click to edit/add: Last Vital Signs Temp 96.8 F L 02/26/24 11:04 Pulse 86 02/26/24 11:39 Resp 20 02/26/24 08:10 BP 138/88 02/26/24 11:39 O2 Del Method Room Air 02/26/24 08:10 Documenting provider has reviewed patient's vital signs: yes Common normals: no apparent distress, oriented x3, no limitations, healthy appearing, alert and well nourished Nutritional appearance: obese HENMT Common normals: normocephalic and head/scalp atraumatic Eye Common normals: PERRL Pupil: accommodation reflex normal Neck & C-Spine Common normals: full ROM and supple Respiratory Common normals: normal respiratory effort Cardio Common normals: regular rate and regular rhythm GI Common normals: Normal to inspection, nondistended, normoactive bowel sounds present, soft to palpation and non-tender Common normals: no CVA tenderness Back & Pelvis Common normals: no thoracic nor lumbar tenderness Extremity Common normals: normal to inspection, full ROM and no calf tenderness Neuro Common normals: CN's II-XII intact bilaterally, moves all extremities, no focal motor deficits, no sensory deficits noted and deep tendon reflexes 2+ bilaterally Sensorium/orientation: awake, alert, oriented to person, oriented to place and oriented to time Motor exam: strength 5/5 throughout Psych Common normals: mental status grossly normal, thought process normal, cooperative, affect normal and speech normal Results Labs Labs: Short CBC 02/26/24 Range/Units 08:38 WBC 9.8 (4.0-11.0) 10^3/uL Hgb 12.7 (12.0-16.0) g/dL Hct 38.6 (36.0-48.0) % Plt Count 303 (150-450) 10^3/uL BMP 02/26/24 10:06 Sodium 138 Potassium 3.5 Chloride 105 Carbon Dioxide 21.8 BUN 8.0 Creatinine 0.86 Glucose 120 H Calcium 9.3 Liver Function 02/26/24 Range/Units 10:06 Total Bilirubin 0.3 (0.2-1.0) mg/dL AST 24 (15-37) U/L ALT 29 (14-59) U/L Alkaline Phosphatase 224 H (46-116) U/L Albumin 2.4 L (3.4-5.0) g/dL Urine 02/26/24 Range/Units 06:45 Urine Color Lt. yellow (YELLOW) Urine Clarity Clear (CLEAR) Urine pH 6.5 (5.0-9.0) Ur Specific [place] 1.010 (1.005-1.025) Urine Protein Negative (NEG/TRACE) mg/dL Urine Glucose (UA) Negative (NEGATIVE) mg/dL OB - A/P Assessment and Plan (1) SROM (spontaneous rupture of membranes): (2) Term : (3) Preeclampsia: Qualifiers: Trimester: third trimester Qualified Code(s): O14.93 - Unspecified pre- eclampsia, third trimester (4) AMA (advanced maternal age) multigravida 35+: Qualifiers: Trimester: third trimester Qualified Code(s): O09.523 - Supervision of elderly multigravida, third trimester Plan SROM, 38.4 WEEKS, PREECLAMPSIA, PAM SPONTANEOUSLY, CAT I TRACING, PRIMIP: MAGNESIUM STARTED, KELLEY PLACED, TEACHING DONE ON PREECLAMPSIA AND MANAGEMENT OF, INDICATIONS FOR CS EXPLAINED, ALL LABS REVIEWED, PITOCIN AUGMENTATION NEEDED, ALL QUESTIONS ANSWERED WITH STATED UNDERSTANDING Urinary Catheter Management Urinary Catheter Management Urethral: Cath placed during this visit: yes Urethral indwelling: Yes Reason for continuing: measure accurate output (ON MAGNESIUM, AND ABOUT TO GET AN EPIDURAL) Insertion date: 02/26/24 Insertion time: 10:50
[2024-02-26] MEDS: ROPIVACAINE HCL/PF 400 MG/200 ML PREMIX 6 MG EPIDURAL (12:02)
[2024-02-26] MEDS: OXYTOCIN/0.9 % SODIUM CHLORIDE 10 UNITS/500 ML PLAST..BAG 6 UNIT IV (16:01)
--- NOTE | 2024-02-26 19:58 | PC.NURSE ---
+2 bilateral brachial DTRS absent bilateral patellar reflexes. Patient has epidural.
--- NOTE | 2024-02-26 20:46 | PC.NURSE ---
Bilateral brachial DTRs +2 Bilateral patellar DTRs absent. Patient has epidural
--- NOTE | 2024-02-26 21:21 | PM.OBPNL ---
Pain Control Pain control: tolerating well and epidural Pelvic Exam Dilation (cm): 10 Effacement (%): 100 Contractions Monitor mode: External Contraction frequency: 2 Contraction pattern: Irregular Contraction intensity: Moderate to Strong station: 0 Amniotic membrane status: Leaking status: Category II Comments: about to deliver Assessment and Plan Assessment: active labor Plan: continuous present management Comments: COMPLETE AND NOW HEAD DESCENDED FROM -1 TO O STATION AND PATIENT FEELS THE URGE TO PUSH Urinary Catheter Management Urinary Catheter Management Urethral: Cath placed during this visit: yes Urethral indwelling: Yes Reason for continuing: epidural catheter Insertion date: 02/26/24 Insertion time: 10:50
[2024-02-26] MEDS: OXYTOCIN/0.9 % SODIUM CHLORIDE 20 UNITS/1,000 ML PLAST..BAG 125 UNIT IV (22:13)
[2024-02-26] MEDS: CARBOPROST TROMETHAMINE 250 MCG/ML 1 ML VIAL IM (22:24)
--- NOTE | 2024-02-26 22:29 | PM.OBPRCVD ---
Procedure Procedure: VACUUM ASSIST VAGINAL DELIVERY FOR MATERNAL EXHAUSTION WHILE PUSHING AND DECREASED VARIABLILITY Intrapartal events: Mild Preeclampsia Induction method: none Delivery augmentation: pitocin Delivery monitor: external FHT and external uterine Route of delivery: vacuum extraction Indication for instrumentation: maternal exhaustion Episiotomy Description: midline L&D Laceration Description: perineal - 2nd degree Delivery repair: Chromic Estimated blood loss (mL): 300 Anesthesia type: Epidural Disposition: floor Complications: NONE Narrative: COMPLETE AND PUSHING. MOTHER BECAME EXHAUSETED AT PLUS 3 STATION. A MIDLINE EPISIOTOMY WAS CUT AND VACUUM APPLIED, (IN TOTAL TWICE). THE HEAD WAS EASILY DELIVERED AND THERE WAS NO NUCHAL CORD. THE SHOULDERS AND TORSO WERE EASILY DELIVERED NEXT. INFANT GIRL CRYING ON DELIVERY. UMBILICAL CORD CLAMPED AND CUT. BABY TO MOTHER'S CHEST PER RN. PLACENTA SPONTANEOUSLY DELIVERED INTACT AND NOT SENT TO PATH. SECOND DEGREE REPAIR IN LAYERS WITH 2-0 CHROMIC WITH EXCELLENT TISSUE EDGE APPROXIMATION. RECTUM AND VAGINAL SIDEWALLS INTACT. EBL 350 CC. INSTRUMENT, SPONGE AND NEEDLE COUNT CORRECT. Infant Gender: female presentation: vertex Placental delivery description: Spontaneous cord description: 3 Vessels cord description comment: NORMAL CORD, SEE NURSE'S NOTES FOR APGARS
[2024-02-27] VITALS (24 sets, daily range): BP systolic 127–158; BP diastolic 76–98; PULSE 85–101; TEMP 36.4–37.1
[2024-02-27] MEDS: BENZOCAINE/MENTHOL 85 GRAM SPRAY BOTTLE 1 APPLIC TOPICAL
[2024-02-27] MEDS: GLYCERIN/WITCH HAZEL PADS 1 PAD TOPICAL
[2024-02-27] MEDS: IBUPROFEN 400 MG TABLET 800 MG PO ×2 (00:15→19:16)
--- NOTE | 2024-02-27 02:12 | PC.NURSE ---
Bilateral brachial DTRs +2 Bilateral Patellar DTRs absent. Patient had epidural.
--- NOTE | 2024-02-27 02:14 | PC.NURSE ---
Bilateral brachial DTRs +2. Bilateral Patellar DTRs absent. Patient has an epidural.
--- NOTE | 2024-02-27 02:16 | PC.NURSE ---
Bilateral brachial DTRs +2. Bilateral Patellar DTRs +1.
--- NOTE | 2024-02-27 02:19 | PC.NURSE ---
Bilateral Brachial DTRs +2 Bilateral Patellar DTRs +1.
--- NOTE | 2024-02-27 02:38 | PC.NURSE ---
Uterus assessment unable to be performed d/t patient sitting on toilet. Small amount of blood noted in toilet.
[2024-02-27] MEDS: 0.9 % SODIUM CHLORIDE 1,000 ML 50 ML IV (03:30)
[2024-02-27] MEDS: NIFEdipine 30 MG TAB.ER.24 PO ×2 (03:32→21:37)
[2024-02-27] MEDS: ACETAMINOPHEN 325 MG TABLET 650 MG PO ×2 (05:36→13:22)
[2024-02-27 06:18] LABS: Basophils Percent Auto 0.2 % (0.2-2.0); Eosinophils Percent Auto 0.1 % (0.9-7.0); Hematocrit 32.7 % (36.0-48.0); Hemoglobin 11.1 g/dL (12.0-16.0); Immature Granulocytes Abs Auto 0.06 10^3/uL (0.00-0.03); Immature Granulocytes Pct Auto 0.4 % (0.0-0.5); Lymphocytes Absolute Auto 1.4 10^3/uL (1.2-3.8); Lymphocytes Percent Auto 9.5 % (20.5-60.0); Mean Corpuscular HGB Conc 33.9 g/dL (29.9-35.2); Mean Corpuscular Hemoglobin 30.2 pg (26.7-34.0); Mean Corpuscular Volume 89.1 fL (81.0-99.0); Mean Platelet Volume 10.5 fL (9.5-13.5); Monocytes Absolute Auto 0.9 10^3/uL (0.3-0.8); Neutrophils Percent Auto 83.8 % (43.0-75.0); Platelet Count 284 10^3/uL (150-450); Red Blood Count 3.67 10^6/uL (4.20-5.40); White Blood Count 14.4 10^3/uL (4.0-11.0)
[2024-02-27] MEDS: LABETALOL HCL 100 MG TABLET PO (06:59)
[2024-02-27] MEDS: FERROUS SULFATE 325 MG TABLET PO ×2 (09:12→21:36)
--- NOTE | 2024-02-27 09:51 | PC.NURSE ---
0950 IV Normal Saline fluids down to 25ml/hr to right hand IV site. Left forearm IV site Pitocin completed and IV to saline lock.
--- NOTE | 2024-02-27 10:40 | PC.NURSE ---
report provided to Pasha Bravo RN
--- NOTE | 2024-02-27 12:38 | P.OBPN_ITS ---
OB - PN: Subj Subjective Patient comments: no complaints, pain well controlled, tolerating diet and flatus present [place] infant status: doing well and well Exam Narrative Exam Narrative: voicing no complaints Constitutional Vital Signs, click to edit/add: Last Vital Signs Temp 97.5 F L 02/27/24 12:21 Pulse 88 02/27/24 12:05 Resp 16 02/27/24 12:21 BP 127/78 02/27/24 12:05 O2 Del Method Room Air 02/27/24 08:19 Documenting provider has reviewed patient's vital signs: yes Common normals: no apparent distress, oriented x3, no limitations, healthy appearing, alert and well nourished HENMT Common normals: normocephalic and head/scalp atraumatic Eye Pupil: PERRL and accommodation reflex normal Neck & C-Spine Common normals: full ROM and supple Respiratory Common normals: normal respiratory effort Cardio Common normals: regular rate and regular rhythm GI Common normals: Normal to inspection, nondistended, normoactive bowel sounds present, soft to palpation and non-tender Common normals: no CVA tenderness Back & Pelvis Common normals: no thoracic nor lumbar tenderness Extremity Common normals: normal to inspection, full ROM and no calf tenderness Neuro Common normals: CN's II-XII intact bilaterally, moves all extremities, no focal motor deficits and no sensory deficits noted Motor exam: strength 5/5 throughout Psych Common normals: mental status grossly normal, thought process normal, cooperative, affect normal and activity/motor behavior normal Results Labs Labs: Short CBC 02/27/24 Range/Units 06:04 WBC 14.4 H (4.0-11.0) 10^3/uL Hgb 11.1 L (12.0-16.0) g/dL Hct 32.7 L (36.0-48.0) % Plt Count 284 (150-450) 10^3/uL Urinary Catheter Management Urinary Catheter Management Urethral: Cath placed during this visit: yes Urethral indwelling: Yes Reason for continuing: other continuation reason (KELLEY WILL BE REMOVED AFTER MAGNESIUM DISCONTINUED) Insertion date: 02/26/24 Insertion time: 10:50 OB - PN: A/P Assessment and Plan (1) Preeclampsia: Assessment and Plan: magnesium will be stopped at noon, 24 hours after delivery. presently on nifedipine xr 30 mg qd and labetalol 100 mg po BID .... will stop meds and/or go down to one when indicated by BP. NO HEADACHE OR VISUAL CHANGES OR RUQ PAIN, FEELS WELL Qualifiers: Trimester: third trimester Qualified Code(s): O14.93 - Unspecified pre- eclampsia, third trimester (2) Vacuum extraction, delivered, current hospitalization: Assessment and Plan: VACUUM APPLIED FOR MATERNAL EXHAUSTION AND NONREASSURRING FHR TRACING. PERINEAL REPAIR INTACT, SECOND DEGREE (3) AMA (advanced maternal age) multigravida 35+: Assessment and Plan: EXPLAINED TO PATIENT WHAT AMA MEANS. EXPLAINED THAT IN TIME THE BLOOD PRESSURE MEDICINES MAY BE STOPPED NO LONGER NEEDED OR SHE WILL REQUIRE FOR MANAGEMENT OF HTN Qualifiers: Trimester: third trimester Qualified Code(s): O09.523 - Supervision of elderly multigravida, third trimester Plan INSTRUCTIONS GIVEN FOR PERICARE Plan - Vaginal Delivery day: 1 Plan: routine care Comment: MAGNESIUM OFF HOWEVER MUST BE MONITORED FOR SEVERE FEATURES OF PREECLAMPSIA CAN OCCUR THOUGH RARELY UP TO ONE WEEK Time Spent with Patient Time: Total time spent is greater than 50% in coordination of care (as documented) at patient's floor/unit and/or counseling patient: Total time spent with greater than 50% in coordination of care (as documented) at patient's floor/unit and/or counseling patient: 25 - 35 minutes
--- NOTE | 2024-02-27 14:01 | PC.NURSE ---
1315 magnesium therapy completed. up to br after ivs discontinued, c/o slight headache-arrieta discontinued and pericare reviewed with pt, returns to bed and medicated with tylenol
--- NOTE | 2024-02-27 15:27 | PC.NURSE ---
voids, to bed, offers baby breast, baby uninterested and encouraged skin to skin
[2024-02-28 00:04] VITALS: TEMP 36.8
[2024-02-28 00:05] VITALS: BP 122/61; PULSE 95
[2024-02-28] MEDS: ACETAMINOPHEN 325 MG TABLET 650 MG PO (05:32)
[2024-02-28 05:34] VITALS: BP 135/81; PULSE 84
--- NOTE | 2024-02-28 07:28 | W.PC.ACHO ---
Registration Status: ADM IN Primary Language: Kyrgyz Preferred Language: Kyrgyz Report received from Adam YANES at 0700. Active Medications Generic Name Dose Route Start Last Admin Trade Name Karen PRN Reason Stop Dose Admin Acetaminophen 650 mg 02/26/24 22:36 02/28/24 05:32 Acetaminophen 325 Mg Tablet PO 650 mg Q6H PRN Administration Mild Pain Benzocaine/Menthol 1 applic 02/26/24 22:36 02/27/24 00:00 Benzocaine/Menthol 85 Gram [place] Bottle TOPICAL 1 applic Q2H PRN Administration Pain Calcium Gluconate 1,000 mg 02/26/24 10:14 Calcium Gluconate 1,000 Mg/10 Ml Vial IVP ONCE PRN Magnesium Toxicity Carboprost Tromethamine 250 mcg 02/26/24 07:58 02/26/24 22:24 Carboprost Tromethamine 250 Mcg/Ml 1 Ml Vial IM 02/28/24 07:58 250 mcg Q15M PRN Administration Bleeding Diphtheria/Pertussis/Tetanus Vacc 0.5 ml 02/28/24 09:00 Adacel Diph,Pertuss(Acell),Tet Vac/Pf 0.5 Ml Adult Syringe IM 02/28/24 09:01 .ONCE ONE Docusate Sodium 100 mg 02/27/24 09:00 02/27/24 21:04 Docusate Sodium 100 Mg Capsule PO Not Given BID MELVA Fentanyl Citrate 100 mcg 02/26/24 10:45 Fentanyl Citrate/Pf 100 Mcg/2 Ml Vial EPIDURAL ONCE PRN epidural Fentanyl Citrate 100 mcg 02/26/24 10:45 Fentanyl Citrate/Pf 100 Mcg/2 Ml Vial EPIDURAL ONCE PRN epidural Ferrous Sulfate 325 mg 02/27/24 09:00 02/27/24 21:36 Ferrous Sulfate 325 Mg Tablet PO 325 mg BID MELVA Administration Tranexamic Acid 1,000 mg/ 110 mls @ 440 mls/hr 02/26/24 07:58 Sodium Chloride IV 02/28/24 07:58 ONCE PRN Uterine Bleeding Sodium Chloride 1,000 mls @ 75 mls/hr 02/26/24 08:00 02/27/24 13:15 Sodium Chloride 0.9% 1,000 Ml IV Infused .[id number] MELVA Infusion Ropivacaine/Sodium Chloride 400 mg in 200 mls @ 6 mls/hr 02/26/24 10:45 02/26/24 22:10 Naropin 0.2% 400 Mg/200 Ml Bag EPIDURAL 0 mls/hr Q24H [facility] Infusion Oxytocin/Sodium Chloride 10 units in 500 mls @ 6 mls/hr 02/26/24 15:45 02/27/24 02:07 Pitocin 10 Unit/500 Ml-Ns IV Infused TITR [facility] Infusion Protocol 2 MILLIUNIT/MIN Ibuprofen 800 mg 02/26/24 22:45 02/27/24 19:16 Ibuprofen 400 Mg Tablet PO 800 mg Q8H [facility] Administration Labetalol HCl 100 mg 02/27/24 19:00 02/27/24 19:39 Labetalol Hcl 100 Mg Tablet PO Not Given BID@0700,1900 [facility] Lidocaine 5 ml 02/26/24 07:58 Lidocaine Viscous 2% 15 Ml Solution TOPICAL 02/28/24 07:59 ONCE PRN Pain Lidocaine 1 ml 02/26/24 07:58 Lidocaine Hcl 1% 200 Mg/20 Ml Mdv INJ 02/28/24 07:59 ONCE PRN Pain Measles/Mumps/Rubella Vaccine Live 0.5 ml 02/28/24 09:00 Measles,Mumps,Rubella Vacc/Pf 0.5 Ml Vial SQ 02/28/24 09:01 .ONCE ONE Misoprostol 600 mcg 02/26/24 07:58 Misoprostol 100 Mcg Tablet PO 02/28/24 07:58 ONCE PRN Uterine Bleeding Misoprostol 800 mcg 02/26/24 07:58 Misoprostol 100 Mcg Tablet SL 02/28/24 07:58 ONCE PRN Uterine Bleeding Misoprostol 1,000 mcg 02/26/24 07:58 Misoprostol 100 Mcg Tablet KS 02/28/24 07:58 ONCE PRN Uterine Bleeding Nalbuphine HCl 10 mg 02/26/24 07:58 Nalbuphine Hcl 10 Mg/Ml Ampule IV Q3H PRN Pain Nifedipine 30 mg 02/26/24 22:54 02/27/24 03:32 Nifedipine 30 Mg Tab.Er.24 PO 30 mg QD PRN Administration Blood Pressure - High Nifedipine 30 mg 02/27/24 22:00 02/27/24 21:37 Nifedipine 30 Mg Tab.Er.24 PO 30 mg DAILY@2200 [facility] Administration Ondansetron HCl 4 mg 02/26/24 07:58 Ondansetron Pf 4 Mg/2 Ml Vial IV Q6H PRN Nausea And Vomiting Ondansetron HCl 4 mg 02/26/24 07:58 Ondansetron 4 Mg Rapdis Tablet SL Q6H PRN Nausea And Vomiting Oxycodone/Acetaminophen 1 tab 02/26/24 22:36 Oxycodone Hcl/Acetaminophen 5mg/325mg PO Q6H PRN Pain Scale 4-6 Oxytocin 10 unit 02/26/24 07:58 Oxytocin 10 Unit/Ml Vial IM 02/28/24 07:58 ONCE PRN Hemorrhage Temazepam 15 mg 02/26/24 22:36 Temazepam 15 Mg Capsule PO QHS PRN Sleep Witch Tammy/Glycerin 1 pad 02/26/24 22:36 02/27/24 00:00 Glycerin/Witch Tammy Pads TOPICAL 1 pad Q2H PRN Administration Pain Respiratory Oxygen Delivery Method Room Air Oxygen Delivery Method Room Air Oxygen Delivery Method Room Air Oxygen Delivery Method Room Air Cardiology Heart Sounds Strong,Regular Bowels Bowel Pattern Diarrhea Catheter Urinary Catheter Date of 02/26/24 Insertion [Urethral] Urinary Catheter Time of 10:50 Insertion [Urethral]
[2024-02-28 08:39] VITALS: BP 133/75; PULSE 99
[2024-02-28] MEDS: FERROUS SULFATE 325 MG TABLET PO (08:39)
--- NOTE | 2024-02-28 09:26 | PM.OBPN ---
OB - PN: Subj Subjective Patient comments: no complaints and pain well controlled [place] status: doing well Exam Constitutional Vital Signs, click to edit/add: Last Vital Signs Temp 98.3 F 02/28/24 00:04 Pulse 99 H 02/28/24 08:39 Resp 16 02/28/24 00:05 BP 133/75 02/28/24 08:39 O2 Del Method Room Air 02/28/24 00:05 Documenting provider has reviewed patient's vital signs: yes Common normals: no apparent distress Respiratory Common normals: normal respiratory effort and clear to auscultation bilaterally Cardio Common normals: regular rate and regular rhythm GI Common normals: Normal to inspection, nondistended, normoactive bowel sounds present Extremity Common normals: normal to inspection and no clubbing, cyanosis or edema Urinary Catheter Management Urinary Catheter Management Urethral: Cath placed during this visit: yes Urethral indwelling: Yes Reason for continuing: not indwelling catheter Insertion date: 02/26/24 Insertion time: 10:50 OB - PN: A/P Assessment and Plan (1) Preeclampsia: Qualifiers: Trimester: third trimester Qualified Code(s): O14.93 - Unspecified pre-eclampsia, third trimester (2) Vacuum extraction, delivered, current hospitalization: (3) AMA (advanced maternal age) multigravida 35+: Qualifiers: Trimester: third trimester Qualified Code(s): O09.523 - Supervision of elderly multigravida, third trimester Plan - Vaginal Delivery day: 2 Plan: routine care, discharge home and other (fu 1wk, rx on chart, precautions given) Time Spent with Patient Time: Total time spent is greater than 50% in coordination of care (as documented) at patient's floor/unit and/or counseling patient: Total time spent with greater than 50% in coordination of care (as documented) at patient's floor/unit and/or counseling patient: less than 15 minutes
[2024-02-28] MEDS: LABETALOL HCL 100 MG TABLET PO (11:25)
[2024-02-28] MEDS: IBUPROFEN 400 MG TABLET 800 MG PO (14:33)
== END 2024-02-28 17:35 | disposition home or self-care (01) | DRG 806 ==
PROVIDERS: Admitting Provider Obstetrics & Gynecology; Visit Provider Obstetrics & Gynecology
DX: O42.02 Full-term premature rupture of membranes, onset of labor within 24 hours of rupture (principal); O98.32 Other infections with a predominantly sexual mode of transmission complicating childbirth; Z37.0 Single live birth; O14.04 Mild to moderate pre-eclampsia, complicating childbirth; O75.81 Maternal exhaustion complicating labor and delivery; A60.00 Herpesviral infection of urogenital system, unspecified; O24.429 Gestational diabetes mellitus in childbirth, unspecified control; O70.1 Second degree perineal laceration during delivery; O76 Abnormality in fetal heart rate and rhythm complicating labor and delivery; Z3A.38 38 weeks gestation of pregnancy
CPT/HCPCS: 36415; 51702; 59050; 59410; 80053; 80307; 81003; 82570; 83615; 84156; 84550; 85025; 85027; 86850; 86900; 86901; 96365; 96366; 96368; 96372; 96375; 96376; J1290; J2795; J3475

== ENCOUNTER 2024-03-03 07:59 | Outpatient (OUT) | payer BC, SELFPAY ==
--- OUTSIDE RECORDS SUMMARY | 2024-03-03 08:03 | XMS_ITS | CCD ---
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 Name Role Phone NAINAC, DR OLSON Primary [...] Range Facility Coding Summaryon 12-31-2021 [facility] WkaitecdNWh7yVt+PGhl YWQ+EF8PUDZnL64nvZXk hZ7DU3tWSK9JSDDYUCNW EW8CPK5llEU1JFtdK6Eh biAv AvkemZBzKH05CKr1VOT1 mGozSCghiD0pzBBjN4s6 FmHuWK68aF85KTkgMQAu DoT3WxBktbufuCVr N3whVrNssDWjLyr+PHRh YmxlIHdpZHRoPScxMDAl RmUkmByvZX7xNn8yEGKg LWNvbGxhcHNlOiBj c5tqJELtCHnpJG8zvByy T1XtvFS7JHInm3l9Zr74 dHI+XBAmMJE2vJeeRPwp n822IkEzy4kvEVX0 lHDgKSroAQF3L13db4V0 QXHmIFNtPZX0vMU7xM9q hSqgwtxxW3DlfWDwNaH1 LHK1nCNypW2fiLad jhszlZ1fZty+C63FYP5Z NHUVCA0AKrx9N5YbPbxp dHI+HZ41XEDmCW29wGIj hJCfh0nakSv6QbVc GTQhQBS3hDyiCHyhx9Xc XBKkB14ikXFxz1J5PJDw eHjihAWuNaFzbNU2kF4y NSgzkxeod9zrdhvt Qilwd3hixl68jI52U48e VOqtCSMoVUB3BBQsLSGu hOkkmx8vyX0fWc8+IDxj d8rce8rckCu0LxSa OKGvsnJcsBevXMC4b7Et Bz97C1EsfApnq4ZvKqn3 bc70kHIhj5U2uVY3HXdu XXUykI5eNOghThJ3 ENHdKdDcxP03zXBhZGze Sf6ncTuvfAojMG6lZXLs tqenGKNkqS2tYWPgcTMo kWklBX2sXHLdlgcx o395PqImQFF3FJDwjJUy Z5EvxU6mBuNrEAXrVJGb V1MpiSUxBKsqI060XLif KkX9LAUtuxUzA5Tb JWMnbObcUlU7t9U0Yy2K c6RwijlhQUH8CRomBZH3 KtI7FhOvAfQ8F3OxEff1 ITVtgNqqPZ7oN6Mk ZFQlcbyeeoxbzIC9NSHt IXPiiE73tCOyQBhiPp0p l7L3l033XENmBCQlwP03 Na7ycPmaRGFpiHZR cO8ckredm5mbsobrDrIs OWNiVNv2VMh9JZOnhRoj UcRtAOQ1TiC8GVN3kQWw tW9isIzjulorcA1p Oyc+N24omA7mUCX0COY7 mjfgIRPjaxUbKQ04NM80 C2XwMeqewVXojUD+PGRp nfJggVndJX5oIhJe o2qrb4ZeIJgqZ2BgQAIc CMsxBue3XTFjPGF8sXG6 aX8fTQJwXQbye5L8iYB3 S3DeunFzoe3ze5qp ZJAcZQvbK19zaIZqq5O6 EBQthDB0CKJkpIdzFrIp aB47Tsa+HOSddTkpc2Dq Ybfgw2wyl4hqoGb1 IjMwJSIgdmFsaWduPSJ0 w7XsLr70L49fZBfxOUFx NJOdEKYcQEKpbWlfmd9c dL4yFt2+PGNvbCB3 sXY8aP9qJTKkNsX9QTtp H082GwWoxYPaTsgqk4hr a0plbGf1LzYgQIRquyGb kWblNBA6o6AgWh80 C74nKUpjGNJbGXOlQXLl BKRxaClsms4dwT6iIa6+ RB2ap0vkiq36yS87nLT+ KUFeLTY5tLvcBZvg MXRvkS3nYPoaUvJ0BNMo OzUsuF97zEArVLpgCp9q gVvfyDjfJV7tFJTlvpkk x171VqWvq8iaXCTw aCArVQwyNRG5H01ao5G4 EGLkAKNrKXM7rOD4oC1k bGlnbjogbGVmdDsgdmVy nApqDEmyAUqnH426 IHRvcDsnPlBhdGllbnQg XgZlTMl0V2CiFrr9WMKa jUssSV1jhDKpXClfFt0e wKkdnXzuOH8pAQLs lckqn898AiTvw3khGFQr nQLsBHkpSHV5A18st6Y4 WGFsPSJfRHN9yJB0oV9w bGlnbjogbGVmdDsg kgHgtZmuMDbuPOyxN542 IHRvcDsnPkJpcnRoIERh uSP7FR19SQ05lQQzr6J6 eVR2M3RoMMXwifzb haxqkOV6EFAbIPTvqR09 Rh5rcQnrXx6fTWYeDSD1 OUBquXDkQ6SyuC5tDzPx RFVgESFqG3AmaKKi QFbnS023IZkeInJ2GEQe pxOxC1EeMBMdxLpxDrB7 r4T7Ch1KF6P5KD47IJ80 qOVnn2E1tWZ1P0Vt QFZrcruxjnmktXC9HBGs PIGlcG79Go1soEvvNt3h VRPyQPC7FYDluSPtX3Co iI8wScAxTUCnJCMn L0NsvEDtFMsyN316NHlr EjB9MRImzcKdD2KoAQFy gVupBhO4m1V9Fr6VLSa8 BS04PY91oNYmw0V5 yWG1V6OlHVPevicrbylf uUG7HQAzPSFtgN70Ib3b bHxrMy7sRCJuZRC8KHWh fFEwX4SnkP4iLkJt ZYKdAHNuW4NeyGUzFKqv D097HQauEqZ1NTObbiQm P6QlWTOauCfnJzO8u7N4 Ks3GINHqXY13WRX6 sFJ6DU49XS52S2NcTsco dGFibGU+PHRhYmxlIHdp ZHRoPScxMDAlJyBzdHls KL9jTc9hJZTrZRWw gXhumCRrVnDax4nlZJGq AKppQZ9khWfrV4UqwWJ4 VSIgm7s5Bw04C28aM4Hr dXA+GKFmiDS3pNE3 kG2xQgUyQyP3WUanA000 YiSkbIAaDlpol3nxz8ai rGs3VaO9YNRiqdDrpTwk MJH6s4SuXl59L16a IHdpZHRoPSIxNSUiIHZh hMksml1qiK6cSv8+PGNv fRY3oVS9gK8eXcWfAkH3 THkqO215RtFthBGc Hwcfp0ojh5hwuPc4RgHd UXRsvhNqhWvgREI6m7Cm Td40I1ZfpAfdj3IxRuw3 gy28yLWzl4O4aXP6 E8QfPJKfedextJNdvEma IK6tLVZuerwyXXWvyR7f JNVfU1t8IiQjPlJ5TXzo E7DrkjM1BGRnlJQg YSyeUJT7W47wb0J0DFUg VBZwJIO0hRA5vQ9ukZii bjogbGVmdDsgdmVydGlj HNriVExbC986DZBm xCutEDRziV6vNIEgpBRl jHhkND4wFGAuivqmZpnN TZXCQOOZXRJBLyBEXE59 XO86oPAzn1E1wHD7 T6IwMTJawboqojygvWL7 CMUfGAKnxG00aMRwHVtz Qm9ou3O7y657JGBfSBRy yF59Kj0wbDykVYLw fOWZzU7ypdmej6ldkraa OiClDEInQSa0WAp0TPWa jDiqFaEsSUU2ImD5BJY0 jQZrcR9xnPhalkws pG3cRkd+MDEvMDgvMTk4 ODwvdGQ+OEEaDOA4gKyt YQlrWTSybD2cAVOpC8j3 ZlGwKsU2GAliB1Hi OYKrmyfzRk70qM2eEhYp XmE2WCttH6SlflP6OPWu rUYuTBtdYNY8E99yx5J4 WXIuJMRvFJP0fJS0 tH5gcJoaozcmsITlkQjw xxHfuEroUTtiIMxeP670 OSKapIkbFpI3ZOgnJUYk CB30PC62uKSeb8W2 gWP0N0VvGWPvgquisxuc kIB9IOJfFNKsuO49tGBh VGjiCu4tx0X0g800MGRk TDVzaY22Ir4ssHkp HOOozEOSaE2flkhaq0ab rizxOiErRECjSYm4MIz2 XOUzwKjvLoTvFHI8WaT9 WIN6lVSctN4iaEom azdizT9wGtu+RkVNQUxF CD12JU44oSUfz1Z8bIX7 A6YwOMIyfysuadxjcMV5 TYOsKPZksR18lHCt HAvyCr4it5B0f825JUSu WHNyoP41Gd5soQtuYRPm wFTBeU0uhkshp7ijppzt PtOwEEEyCPt1EQy7 KSRnqWsgFjOqLDI6GfG3 CPF0sNQoqO9idFiytfnn aY6rElo+S7F4Z2FfWwhb dHI+JO54JYVwPK73 lCIbyVVsf8qvfHb0JhOn WMOsMOK4uHylMKlny5Ji MEJvO48caCWxz5K8HUIn bGxhcHNlOyBlbXB0 sA6mXCmvalqwm9cdwfdr Dgfrl1uxsy06uZ40D88v IHdpZHRoPSIzMCUiIHZh aXvacg7noG9qZg5+ QLYnaAN2aJO7mL1kBdOu VxD7TLaxR914HgJywIFb Apjbt8evf2zotPx3XySk JSIgdmFsaWduPSJ0 q2JpKq41S82eUWfuZYQo ZJEpDJZqHVHddYimrs0s sJ7oJu2+EC3sn2stsn43 oX89nES+PHRkIHN0 nBbxYAirVSOdbG6fIMyg KsE6EFSrPtNygN62tRMi PLwlOa8kjAdohPwvXW0q ZLFoasksv405MpFw j6asIUHkkEUaESahOVB0 E90ff5O7CXVdRKGtVRM8 kEW1sT4emZzoxjcheMVq dDsgdmVydGljYWwt NRadW724BAUrrTpqDsQc iNAvN2yvybYGNB0eXsal dGQ+QLIyQHL1eYhgWVwa ZNRpkD7mFFFxU5g7 FcRhXpM4BYaiM0YvnyR7 KNNkuLOkQNAauCDZtH9b xprqp4skhnfaPeLfHQDx PYq8NIj1AMFhuUhe PkJfOLO8QzE5FJS0sWOn aT9zuCewwitueG8eVud+ RklOOjwvdGQ+PHRkIHN0 rFiiFLfoWDFftP7b QULyK4g8QuPnBzO1ERjz O9GxfuA8ADJuyIZlEYRk cMYTvO3llxpnh9omkdok PwZyAJMfUMz5DRu0 UBCnbPtdGeVfVDM4QbQ8 VHM4eIHyhC5ahMmmevwt wQ9nCus+TVJOOjwvdGQ+ NLXhSEC0cLraVPsw FLXkzF6jSZDsN9a6YvYg TcI2ZSeaZ7JoubV1QPHv dVUmAHVfmNUFyF2gtflp t4kpoozoWcWiATZp KGo4DIh9MBAqzZanBsFg YMI4HmA3EFX1uAHamB7w yMdrrltfvG7iAwb+UGF5 JGM6SB98SN14Q0Rc PjwvdGFibGU+PHRhYmxl IHdpZHRoPScxMDAlJyBz aAnaWS1zGn9bQWDjHMBu cMgtwXEfObQlf5ze YXB (more content not included)... [facility] Coding Summary HTMLBase 64 WphpmazfOOo0gLq+PGhl YWQ+SJ9YEDOjM70ueHSw iQ8NX7bTXG8FSWAINWFN BV7GCA4exBR4PDdkY4Yr biAv YsqqlVAsKO26NLh2LMZ2 tRvtKVmxbE9jxLLfD3t3 FqKyLA58pL88GBruSJJo LxP2MrNefbmjkSWp P1yfKlCpoWYyLiz+PHRh YmxlIHdpZHRoPScxMDAl AbAmfLxxOQ7oVt2jGUSf LWNvbGxhcHNlOiBj b0stHMKkUKasSR8zxXxs K2BeiSQ9RZPqh8a7Rk62 dHI+HZPmCJL9cTyhSYnm i188BvSgp4mfLLM4 dWFgLSfkTVQ2E83lu2F4 GWRvTYLpRTU2eIE9oY8h hCulnndyD5OkxNIkWsP8 CUP1uHEwrT8ctHlb xuzpkU6yDpi+E48MSP8H XUQHAS7RPcp8K7WxYzsp dHI+II52SHQnGB15yRMd mVOms9bchIv7GdRg ZKNfQED9vVcoEWivg2Vi HCEaA51irKDmg5A5APCs zPuyyLMmUqIizGR8eJ7i CQjhvshuo3mwghro Urgok8djsk13rN49Z64u MOsqAZIvING0ERWqVZXx uKzmqa4ngE5rTl2+IDxj n9lrm3zehAs3QeIp AKMkhiBkcXrlKWE4q7Bp Wk54E2LliLjbl9NaTtj8 jg36nJYhs0F3lLO4SJsu TGUqjP9mEXdsHpY6 IWJiJvUvhB73sXEpXXlm Qc4lcBdspAuaPK7lOZCt uhyzCKKhwY9fKCLktZDs yJnhHZ4uYYGkaizl s036FgEcSOF0ABQndSSc S4SqsW1jIvQbOXIwQZGt J6VjuNZrZWsfA456KZvg IuZ0SMMpliIkL1Wx LBEbvJkyCiO7i2T0Lq3M b1CspksrRYE2NQykDRT7 IbE4RtBbMtY7G4KeYox1 AHJmpAveQW4iA7Qc IMIzhghsqoaevQK3CQEy HPWslP82mPSbOQgdFc9n f8Z8d407ZRCyNWAjoV62 Eo3sfVzkFTLomHRS iJ4lqxjsq6tqixakNwJi DJGrXDm6KXm3ZWAeoIrh MjNcVTD8BuZ9DDL8aBYr uY6owLvsegpxcG9c Oyc+C22dtV0bUUC7CNX5 xijdFYIncwOqLR95IN80 F0SbAdmqzRXjxDV+PGRp euXvqXzgYD4iCdDk w2tog9JoYIpcY7OgQWRr KZruHkp8SVQlORI1oHG6 sP6uCJShAOdpv1L5vDB2 Q4QtwsIamb4iw5az VSQhBTotX68nqTVfi6C4 XGEleYH5BILsuRhtGuSx cG28Xlv+HDUwdRqlr1Ak Dciwq1ngl1zhfRa2 IjMwJSIgdmFsaWduPSJ0 u1LhTr37S48dKUiqYVMz XTLgKTJbVTZrdWscbm0a yG0rEk3+PGNvbCB3 lGB6iF3pUFVpUtE4ZUbi Q811RxTlsQTbFlvth2iz j2bchPo5VxJdBRMujzRf jXomJTU2g6OzXt80 B28tXYnpUBKzAWWoOGEh QNDehJmoqo3qyK1gQp3+ AC9jv6myxp03wD49mKT+ RLLuUQS2wJkzGKhq BXTtlV7nQTeoFkN9NEQx TrYauQ37yMWlENeqLm9m uNinrBdfPT4dVQVeiobp w690FnRyb3gvMKUj bNUbVMdnAKA6V44uh6F3 FLHpNPHmLUL0kDR9hI8r bGlnbjogbGVmdDsgdmVy kIffMKmoJNplR972 IHRvcDsnPlBhdGllbnQg AuYnRAd3K3ExAdn1ICBn gWgxWT1cuQExUSmcBm1g zVkpuUxiKA7sREEo iigeg759FrIqo6ehVFRb pTDhHAbiEMD4Z38is0Y1 RKZnWSVuNRF5jDE0oL2z bGlnbjogbGVmdDsg yvWthCymTOctJTkkZ949 IHRvcDsnPkJpcnRoIERh cBU9EW63ZO50dODho3L7 wSV2Q9OcPFKjsxpp pukmpFS2RIEjFWDuwO85 Yi5xeBicFq8sCSCwJGJ3 IBIqmVEnX3EfaN2sXoOm YVZhYERfX8HjtNBb NPlhO659BNlqDoZ6LHKe nfBvO1DrPZBqpHgkRdG5 p0Q2Cl8HP7N3WY65DI25 nUJny1Q2pHY0X1Wu NZWkrqqkahuhdDB9MPBo SNXwjM23Rn9axRceEo8h LBQuCFH1XHPpdDFrA3Rv cS1fWtQoQFWxVCEl B0JfrJAjCOufV733ORsl TfW4VXEgnlIlY6DoYZLy xBieTjE1s6L3Es8ZMWc7 PV40XT05gOMmo0Y5 kBV0M1NsDLIqwrjcvmtl hOM4FURpSNRyyV25Yg0i sGuxTz8fMDCeFRE7JGEz iMJqX3CacA3oUlOk ZAPyZZMpT7WnsKSaEMbb F479RJrvQbX5NJMdgxLo D7WvRGBofMzvYxO9e8O5 Do3FFCIzSE34ALM4 wZV8CJ58QG08V1KfKbac dGFibGU+PHRhYmxlIHdp ZHRoPScxMDAlJyBzdHls QI4sFa0bQAHoMQNi kUjplKEeYuUfg5wfXHHe SYeqST4agEigM0GxuMA5 KDJxk5y6Zg47D99eQ4Ve dXA+QSEyeDQ5tZY4 qT4vLqSyCmI4ZPfsM081 ZfMgaWGtQqfys4dql8wm gXg6LwT6EMKqygPnuImi QLZ6d2RkOa29M80t IHdpZHRoPSIxNSUiIHZh tYttoe4abT7xWx6+PGNv kOJ0cFZ5qP0fIhLqZbP4 TTpvL144WaQqoKPm Pybay3oba5kjcEw0GcZm SDEkcjVleHkbPMQ3n1Ur Xz49F5SeaDabe8BiXrf6 wy47jWMjr7N5dAC1 P2PfKQYbjxwckQIeyScd OS2lNOKydxhlSXJguD6t HLQfV8v4PfDfMyI5ZTch O6KpebN8SFKswGTh IHakMHP1D12lo3U6NLLo QHBfBLQ8eOF3qZ9zpZll bjogbGVmdDsgdmVydGlj UGucPXpmB415DSYo nVizBWByeC4vXNKgpXNv jNfsMF0eEYCawbkpTgcO UEOLFFLEJFRUUkGPQY50 KD72yMZxy7P8cHM5 M5NeSVSceqlohxjvpRI9 EXPtMAKtcJ42lPGlQCqt Au6cg3S8g763RNPcTNIa zG27Ix8xtIzcPCSl bBVCqT3ylhuvx9ottvxt BaExKRGaUCl5TDr4YWQy tZrfQlKbPWJ2VeD0FXV2 qNEjiJ4wxIytewvq bP4mLmn+MDEvMDgvMTk4 ODwvdGQ+AWSiZDX8nFdk HFknGXMkoH8gRNBxH2p6 SaTiLyS0MKoiD6Be FVZcvzdpGo22rE4pUpOt UrB2NWjqS5JyvgR4PMFz zLGfJBedZFP9T55qp2B3 GPNeBSGwAZB7vZZ2 jM5yxGeijgpzfCQupGlj zqEoxXoyYFyyIQezR603 RPHckSpsAbZ6GTpoDXPl YT89BB52zLRrp5I9 uZH4U7GyASRksvvhhkos nSJ9HXUqMQSenN75sKOb ECwnGz5sh3J3b855FWNa GFBxoE31Vf1eqUxg EPSedKTLdY8xfkkwk7ty krxsDtXhOCYqIYa5UZo1 PZAydPegJvRsWWJ3BtF7 XNT0cUMlgW9qlQyc obdkjG5mBev+RkVNQUxF LC64GS07aCGjn5N1cKQ5 M9KgVOBljcgqrlahyGM2 AWPaGAEnzY21kLBy GCcgDo8kn6Y7d854DKIn ZTRerS09Zz3mjZjvTRRv uEEToR4qnfpgt8uqafjl FfErNZLgNIo1ZEw5 QEVojBmgMgNxTOF0OsY6 HJY6dUSvrT1qrMptgzbk aR5jYzx+LL6zzwfdfhC1 QQ98TC00R6LkAsav dGFibGU+PHRhYmxlIHdp ZHRoPScxMDAlJyBzdHls LN8aWg7gFNEoPARdtUlw bJQkRmPwq3lvGJTc VLyuQJ4wlSbpU8MlyYA7 PHIzx7r0Ek74L12kM2Ix dXA+PDCpnOD2gQH8kY3r MuRoNqO1BSqzJ771 MhXjaLWlOyfey1crm0ck nDx7OxMcSPCtatTxvXyq FLC1k3AhDn27G07rOTlw ZHRoPSIyMCUiIHZh aTicyk0ycQ3dLo3+PGNv bXR4aAI0qH9pRxKxArZ1 BPzfD062NxTemZBqPjtn U17oI8XopFD+PHRy Ngz0LIDjvGfkEM8ygCIr CBrjSh6xLBR0IbIiQiQg BZibG7NcJBNbcjmwputw mNR2IACdPDAglS82 Uj7phMgqNd6rARYdXGT8 TIZxjPCyE0CpkG5xAcSk ZMQjSABgW8DqjRTvSSjs S034LIuaXkG3NQWr tyYqX0XdQOKdbPanFyG2 h4C5Gg1NhXppkQHuMM3e PdNqGDk9D2SgNal7FZGj bEppVC1klJRaMRlt Qp9bqDlujBlpAA5oCKAp ztded411JpRag1zoOZQw gMBsGUkmEVV9O71xv2W3 UXDzNQNnUKV5aWQ3 lI8eeDltcetujMMapKib krCufEhbQUtfUNkqW180 IMCpiIxhQsSSOgw8G6Mr Zbm7QMJptOndOA6c yTLbWQujKa4duKtbzVyq KN5bAKFwwxlnn936CxXs b2fxRDSriACgQKhvPTW6 U80zq8N9OYFbVLOi PJB5eZP1sO1uzZtiirpn bGVmdDsgdmVydGljYWwt RYkbG981BHZdtOckDb6V Emb1N1ZpYww1JMKf lJxdDR4mySMzAXblUo4l cJqbxHfaRP9mULVvjpxm b247FrXtp9xeCIFagPQy VNjwASR2M43qs8L5 WRXkUEEuZVE9zPD0qV4q bGlnbjogbGVmdDsgdmVy bQuyZEjaFKnqF579KUMz cDsnPlBheWVyOjwv dGQ+BW96rw87C3QdFnyv Pex8VHLiFTD7wWG0uR1m QPRwSHjgx9H2yRR7J6Bl iiIkrp9ii3bcHHCh ZTo (more content not included)... [facility] Ambulance Noteon 12-26-2021 Ambulance Note [id number] [id number] [facility] ED Clinical Summaryon 2021 ED Clinical Summary [facility] - Emergency Department [address] [place], [place] [address] ED Clinical Summary PERSON INFORMATION Name: LOCO HICKS Age: 36 Years Sex: FEMALE : 1985 MRN: Acct#: Visit Reason: Dizziness; FACIAL NUMBNESS, DIZZINESS Arrival: 12/21/2021 18:23:41 Discharge: 12/22/2021 00:02:00 LOS: 000 05:39 Check In: 12/21/2021 18:23:41 Checkout:12/22/2021 00:02:00 Address: [address] [place] [id number] PCP: Provider, None PROVIDER INFORMATION Provider Role Assigned Unassigned Alvin Bryan ED Provider 12/21/2021 18:26:52 12/21/2021 18:30:20 Sanjuana Ramirez BUCKLE ATTACHER Nurse 12/21/2021 18:29:17 12/21/2021 23:14:12 MARIAJOSE EDEN ED PA 12/21/2021 18:30:25 Kerline Cartagena BUCKLE ATTACHER Nurse 12/21/2021 21:46:32 Kerline Merrill RN ED [...] - pharynx pink and moist. NECK: -Supple ([id number]): non-tender. CARD: -Rate and rhythm: Regular -Edema: No -Calf pain: No RESP: -Respiratory effort and chest excursion with respirations: Normal -Breath sounds equal bilaterally: Clear -Wheezes: No -Rales: No BACK: -Signs of pain with movement: No ABD: -Distended: No (more content not included)... [facility] ED Patient Education Noteon 12-22-2021 ED Patient Education Note Education Materials [facility] ED Patient Summaryon 022 ED Patient Summary [facility] - Emergency Department [address] [place], [place] [address] PATIENT DISCHARGE INSTRUCTIONS Patient Information Name: LOCO HICKS Age: 36 Years Date of : 1985 Reason For Visit: Dizziness; FACIAL NUMBNESS, DIZZINESS Arrival Time: 12/21/2021 18:23:41 Primary Care Physician: Provider, None Attending Physician: Alvin Bryan Comment: Visit Diagnosis: Diagnoses This Visit Dizziness ([id number]) Paresthesias (R20.2) Visual disturbance (H53.9) Prescription Information: If you have been given a prescription for narcotics, seek immediate medical attention if you have any difficulty breathing or any sudden status changes such as confusion and sleepiness. If you or anyone you know is experiencing suicidal thoughts, mental health, alcohol and/or drug addiction problems; contact the [facility] 17/02 Crisis Hotline -Text 4HIUZ to [phone]. If you received any narcotics, sedation, or [...] and treatment you received today in the [facility] Emergency Department were for an urgent problem and are not intended as complete care. It is important for you to follow up with a doctor, nurse practitioner, or physician?s acute care nursing assistant for ongoing care. If your symptoms [...] of medications post discharge. Please inform your surgical territory manager/provider of your visit and for further instruction [...] for Disease Control and Prevention March 2014 [facility] MRI BRAIN W WO CONTRASTon MRI BRAIN [...] Ean Cedillo MD 12/22/21 Final result Normal [facility] MRI CERVICAL SPINE W WO CONT [...] Ean Cedillo MD 12/22/21 Final result Normal [facility] [id number] 12-22-2021 SARS-CoV-2 (COVID-19) RNA SHELBI+probe Ql (Unsp spec) Not detected Normal NOTDET [facility] Comment on above: Result Comment: Rapid [...] management decisions. Fact sheet for Healthcare Providers: https://www.fda.gov/media/295751/download Fact sheet for Patients: https://www.fda.gov/media/355676/download Methodology: Isothermal Nucleic Acid Amplification Performed By: #### C OVRB #### [facility] [id number] Beater Room Supervisor: Campbell Simmons MD SARS-CoV-2 (COVID-19) PCRon 12-22-2021 Employed in healthcare? No Invalid Interpretation Code [facility] Comment on above: Performed By: #### 6 [id number] ####[facility] (DEFAULT)[address] [place] [address] Group care resident? No Invalid Interpretation Code [facility] Comment on above: Performed By: #### 6 [id number] ####[facility] (DEFAULT)[address] [place] [address] In ICU? No Invalid Interpretation Code [facility] Comment on above: Performed By: #### 6 [id number] ####[facility] (DEFAULT)[address] [place] [address] status? Not Invalid Interpretation Code [facility] Comment on above: Performed By: #### 6 [id number] ####[facility] (DEFAULT)[address] [place] [address] SARS-CoV-2 (COVID-19) RNA SHELBI+probe Ql (Unsp spec) Not detected Normal Not Detected [facility] Comment on above: Result Comment: Perf ormed by PCR methodology. Performed By: #### 6 [id number] ####[facility] (DEFAULT)[address] [place] [address] SARS-CoV-2 (COVID-19) RNA SHELBI+probe Ql (Unsp spec) No Invalid Interpretation Code [facility] Comment on above: Performed By: #### 6 [id number] ####[facility] (DEFAULT)[address] [place] [address] Symptomatic as defined by CDC? No Invalid Interpretation Code [facility] Comment on above: Performed By: #### 6 [id number] ####[facility] (DEFAULT)[address] [place] [address] Transfer Noteon 12-22-2021 Transfer Note medication list sent with patient, Complete ED chart sent with patient. CD and med list sent w. patient to Hospital [Electronically Signed on: 12/22/2021 00:05 EDT] Nadya Garcia [Verified on: 12/22/2021 00:05 EDT] Nadya Garcia Normal [facility] Transfer Note [id number] [facility] [id number] [facility], [facility] called for transport to [facility]. Willie stated will call when back in area from [facility] Trip. [Electronically Signed on: 12/21/2021 22:14 EDT] Nadya Garcia [Verified on: 12/21/2021 22:14 EDT] Nadya Garcia [facility] .Auto Diff 1on 12-21-2021 Auto [place] % 7 % Normal 1-12 [facility] Comment on above: Performed By: #### 7 292885, [id number], 7942560, 61677011, 0938994, 3485026, 5849960396, 8236371, [id number] ####[facility] (DEFAULT)[address] [place] [address] 49406 Baso Abs# 0.0 x10 Normal 0.0-0.2 [facility] Comment on above: Performed By: #### 7 609159, [id number], 2280529, 51386591, 7692189, 6670108, 6930750782, 8267091, [id number] ####[facility] (DEFAULT)[address] [place] [address] Basophils/100 WBC (Bld) 0.4 % Normal 0.2-2.0 [facility] Comment on above: Performed By: #### 7 409642, [id number], 7404035, 39196071, 5530182, 5181719, 6835342044, 5841370, [id number] ####[facility] (DEFAULT)[address] [place] [address] 43783 Eos Abs# 0.1 x10 Normal 0.0-0.4 [facility] Comment on above: Performed By: #### 7 286025, [id number], 0551906, 71040015, 1053823, 7527593, 5020925406, 0919833, [id number] ####[facility] (DEFAULT)[address] [place] [address] 17314 Eosinophils/100 WBC (Bld) 0.7 % Low 0.9-4.0 [facility] Comment on above: Performed By: #### 7 933983, 4952288236, 1001141, 84802067, 0156175, 1973171, 1796810922, 1667723, 0888800094 ####[facility] (DEFAULT)[address] [place] [address] 32305 Lymph Abs# 3.2 x10 High 1.3-2.9 [facility] Comment on above: Performed By: #### 7 152952, [id number], 2664365, 84873864, 1890879, 2128845, 5091703619, 4689857, 6220307895 ####[facility] (DEFAULT)[address] [place] [address] 92520 Lymphocytes/100 WBC (Bld) 40 % Normal 14-48 [facility] Comment on above: Performed By: #### 7 638563, 0416917306, 6379444, 39152328, 3149776, 7231425, 1851196646, 3874432, 3446476143 ####[facility] (DEFAULT)[address] [place] [address] 84560 [place] Abs# 0.6 x10 Normal 0.0-0.8 [facility] Comment on above: Performed By: #### 7 258316, 5205838671, 5559648, 38433792, 6255384, 0878257, 5734588291, 0722346, 1512600363 ####[facility] (DEFAULT)[address] [place] [address] 99812 Neut Abs# 4.3 x10 Normal 1.5-9.2 [facility] Comment on above: Performed By: #### 7 366355, 3625725591, 3553319, 75466774, 1039250, 4221811, 1075095219, 8059496, 8353546113 ####[facility] (DEFAULT)[address] [place] [address] 97359 Neutrophils/100 WBC (Bld) 53 % Normal 44-88 [facility] Comment on above: Performed By: #### 7 458948, 2250230039, 3464480, 56961351, 1660299, 3459033, 6099384413, 2337890, 4932423635 ####[facility] (DEFAULT)[address] [place] [address] 74037 CBC w/ Auto Diffon 2 Erythrocyte distribution width (RBC) [Ratio] 14.3 % Normal 11.5-15.0 [facility] Comment on above: Performed By: #### 7 043088, 7905812257, 2480165, 30758021, 2778906, 2698292, 7064332674, 2224704, 1155449439 ####[facility] (DEFAULT)[address] [place] [address] 26758 Hematocrit (Bld) [Volume fraction] 42.3 % High 33.7-40.4 [facility] Comment on above: Performed By: #### 7 795471, 0484856019, 2991121, 93478961, 1764251, 7280422, 6714161756, 1712439, 5183403258 ####[facility] (DEFAULT)[address] [place] [address] 46088 Hemoglobin (Bld) [Mass/Vol] 13.7 g/dL Normal 11.3-15.9 [facility] Comment on above: Performed By: #### 7 480968, 5234984734, 0995325, 67260513, 3062055, 4111855, 5446024988, 9057491, 5360417616 ####[facility] (DEFAULT)[address] [place] [address] 27596 Instr WBC 8.2 x10 Invalid Interpretation Code [facility] Comment on above: Performed By: #### 7 871139, 9624472787, 3692936, 53470913, 8351750, 2258266, 6052428729, 0525188, 4991560322 ####[facility] (DEFAULT)[address] [place] [address] 80350 Man Diff? Auto Normal [facility] Comment on above: Performed By: #### 7 632843, 6281815335, 2949140, 15678483, 2304485, 5857697, 5123679402, 0271891, 3576186554 ####[facility] (DEFAULT)[address] [place] [address] 38368 MCH (RBC) [Entitic mass] 31 pg Normal 24-34 [facility] Comment on above: Performed By: #### 7 161408, 1520076261, 0359988, 42668788, 4641507, 3957233, 2407291289, 1691271, 3636155885 ####[facility] (DEFAULT)[address] [place] [address] 47492 MCHC (RBC) [Mass/Vol] 32 g/dL Normal 26-37 [facility] Comment on above: Performed By: #### 7 483710, 0345991609, 6350532, 17705600, 5096458, 9649201, 5946554004, 7457350, 1782826889 ####[facility] (DEFAULT)[address] [place] [address] 18033 MCV (RBC) [Entitic vol] 96 fL Normal 81-100 [facility] Comment on above: Performed By: #### 7 852204, 6814696120, 8790630, 81721285, 6208451, 1932484, 0501417542, 0318813, 7837330922 ####[facility] (DEFAULT)[address] [place] [address] 52934 Platelet 363 x10 Normal 138-427 [facility] Comment on above: Performed By: #### 7 968080, 8378673717, 0619521, 63531623, 5649378, 2733153, 7439343800, 8526062, 3789314156 ####[facility] (DEFAULT)[address] [place] [address] 23010 Platelet mean volume (Bld) [Entitic vol] 10.2 fL Normal 6.3-10.2 [facility] Comment on above: Performed By: #### 7 087822, 5662806888, 2409077, 90182945, 2921214, 3429255, 6576930898, 1691805, 2857409656 ####[facility] (DEFAULT)[address] [place] [address] 88010 RBC 4.42 x10 Normal 3.70-5.30 [facility] Comment on above: Performed By: #### 7 471627, 5085761734, 0236465, 46319102, 0316539, 0849614, 8885395681, 8594990, 0469392617 ####[facility] (DEFAULT)[address] [place] [address] 29196 WBC 8.2 x10 Normal 3.5-10.5 [facility] Comment on above: Performed By: #### 7 615757, 8948784166, 6964207, 97644175, 8871407, 1748702, 0577743861, 8118873, 3802331777 ####[facility] (DEFAULT)[address] [place] [address] 15368 [facility] Standardon 12-21-2021 eGFR Non AA 57 mL/min/1.73m2 Invalid Interpretation Code [facility] Comment on above: Performed By: #### 7 005625, [id number], 6417038, 82152871, 0420453, 9003886, 6871510007, 6882440, [id number] ####[facility] (DEFAULT)[address] [place] [address] 04043 eGFR AA >60 Invalid Interpretation Code [facility] Comment on above: Result Comment: Gasoline Service Attendant nathalia Kidney disease could be indicated at eGFRs of less than 60 ml/min/1.73m2. Kidney Failure is indicated at less than 15 ml/min/1.73m2 Performed By: #### 7 515527, [id number], 8799804, 30520700, 6649295, 8731367, 3691871057, 8250182, [id number] ####[facility] (DEFAULT)[address] [place] [address] 20772 Albumin [Mass/Vol] 4.7 g/dL Normal 3.5-5.0 [facility] Comment on above: Performed By: #### 7 353011, [id number], 1256195, 49124479, 7374397, 5677076, 1927847649, 6921749, 1054745479 ####[facility] (DEFAULT)[address] [place] [address] 04868 Albumin/Globulin [Mass ratio] 1.1 {ratio} Low 1.4-2.6 [facility] Comment on above: Performed By: #### 7 455057, [id number], 6179393, 88385510, 1088511, 1578385, 7521956982, 1852212, 3743667517 ####[facility] (DEFAULT)[address] [place] [address] 71856 Alk Phos 99 IU/L High 32-91 [facility] Comment on above: Performed By: #### 7 285183, [id number], 8410184, 26331858, 7889045, 8223413, 2143812100, 4746386, 2196985586 ####[facility] (DEFAULT)[address] [place] [address] 13641 ALT [Catalytic activity/Vol] 32.0 U/L Normal 14.0-54.0 [facility] Comment on above: Performed By: #### 7 186421, [id number], 3880514, 65719603, 3437452, 0075033, 1388548960, 1889719, 4673450663 ####[facility] (DEFAULT)[address] [place] [address] 06830 Anion gap [Moles/Vol] 23.0 mmol/L High 5.0-19.0 [facility] Comment on above: Performed By: #### 7 113030, [id number], 2791228, 12036541, 2351590, 5315835, 8857678838, 9606439, 9937826698 ####[facility] (DEFAULT)[address] [place] [address] 84346 AST [Catalytic activity/Vol] 41 U/L Normal 15-41 [facility] Comment on above: Performed By: #### 7 163210, [id number], 8835960, 63896390, 4469919, 9622101, 3758595218, 5265042, 5990583364 ####[facility] (DEFAULT)[address] [place] [address] 66179 Bili Total 0.4 mg/dL Normal 0.3-1.2 [facility] Comment on above: Performed By: #### 7 921282, 9584294705, 2613934, 15921641, 1731055, 5942933, 5458719528, 2587681, 3082676221 ####[facility] (DEFAULT)[address] [place] [address] 07164 Calcium [Mass/Vol] 10.2 mg/dL Normal 8.9-10.3 [facility] Comment on above: Performed By: #### 7 556304, 4356734178, 9629946, 14163006, 5304250, 1645459, 5745986084, 4884391, 0663925635 ####[facility] (DEFAULT)[address] [place] [address] 00091 Chloride [Moles/Vol] 96 mmol/L Low 101-111 [facility] Comment on above: Performed By: #### 7 794430, 2747432146, 2931960, 94425199, 3311858, 3082339, 4625267499, 7141347, 2025234851 ####[facility] (DEFAULT)[address] [place] [address] 14575 CO2 [Moles/Vol] 24 mmol/L Normal 21-32 [facility] Comment on above: Performed By: #### 7 756605, 7645707750, 2257721, 77312615, 3904189, 5905061, 4955861559, 7766303, [id number] ####[facility] (DEFAULT)[address] [place] [address] 06023 Creatinine [Mass/Vol] 1.10 mg/dL Normal 0.60-1.30 [facility] Comment on above: Performed By: #### 7 006718, 1921151840, 6581860, 04085374, 6437943, 6605650, 2462931975, 5813382, 8558201297 ####[facility] (DEFAULT)[address] [place] [address] 49387 Globulin (S) [Mass/Vol] 4.2 g/dL Normal 1.5-4.3 [facility] Comment on above: Performed By: #### 7 418566, 8515530301, 0358045, 67652117, 3946399, 8410172, 7425894570, 1335186, 3934272665 ####[facility] (DEFAULT)[address] [place] [address] 36013 Glucose [Mass/Vol] 97.0 mg/dL Normal 74.0-118.0 [facility] Comment on above: Performed By: #### 7 544486, 2424526129, 0482844, 95445130, 4764434, 5857523, 6256688227, 4798884, 9070975902 ####[facility] (DEFAULT)[address] [place] [address] 76225 Osmolality 278 mOsm/L Invalid Interpretation Code [facility] Comment on above: Performed By: #### 7 489933, 7277063414, 7658110, 00625846, 4281508, 6294489, 0199044148, 8360194, 7270096188 ####[facility] (DEFAULT)[address] [place] [address] 65314 Potassium [Moles/Vol] 3.5 mmol/L Low 3.6-5.1 [facility] Comment on above: Performed By: #### 7 680969, 6277264828, 7706529, 81325262, 4938044, 5151780, 8156395817, 8188759, 4490218675 ####[facility] (DEFAULT)[address] [place] [address] 02390 Protein [Mass/Vol] 8.9 g/dL High 6.5-8.1 [facility] Comment on above: Performed By: #### 7 001907, 1396943268, 1792000, 89344093, 2117897, 1112689, 4747509788, 2991261, 2407466875 ####[facility] (DEFAULT)[address] [place] [address] 95735 Sodium [Moles/Vol] 139.0 mmol/L Normal 136.0-144.0 [facility] Comment on above: Performed By: #### 7 021486, 8357103450, 6444828, 20467844, 2301935, 2850881, 9808784423, 1944630, 8600500003 ####[facility] (DEFAULT)[address] [place] [address] 90557 Urea nitrogen [Mass/Vol] 15 mg/dL Normal 8-26 [facility] Comment on above: Performed By: #### 7 829351, 2787788851, 2092952, 61855697, 3123692, 8402136, 8229658322, 8796541, 3103018891 ####[facility] (DEFAULT)[address] [place] [address] Urea nitrogen/Creatinine [Mass ratio] 14.0 mg/mg Normal 4.6-16.2 [facility] Comment on above: Performed By: #### 7 369346, 8155449881, 2637551, 68514605, 6682665, 3660765, 8765167901, 5107977, 9362201272 ####[facility] (DEFAULT)[address] [place] [address] Head or Brain w/o Contras ton [...] 12/21/21 9:19 pm Technologist: Erwin CHAUDHARI Normal [facility] D-Dimeron 12-21-2021 D-Dimer 0.49 mg/L FEU Normal [...] Liver cirrhosis ? Performed By: #### 7 608836, 9087230185, 8454615, 48181184, 6489487, 1788385, 4578705661, 1781789, 1303767584 ####[facility] (DEFAULT)[address] [place] [address] ED Note - Otheron 12-21-2021 ED Note - Other Neurology called back from [facility], on phone with Mariajose LLANES [Electronically Signed on: 12/21/2021 21:29 EDT] Nadya Garcia [Verified on: 12/21/2021 21:29 EDT] [facility] Other p[facility] Neurology through [facility] for consult for Mariajose LLANES [Electronically Signed on: 12/21/2021 21:12 EDT] Nadya Garcia [Verified on: 12/21/2021 21:12 EDT] Nadya Garcia [facility] ED Note - Physicianon 2021 ED Note [...] - pharynx pink and moist. NECK: -Supple ([id number]): non-tender. CARD: -Rate and rhythm: Regular -Edema: [...] For Rehabilitation ED Note-Nursingon 12-21-2021 ED Note-Nursing Graduate Teacher Education assumed care for pt at 2124. Pt had fluids running at that time. Will continue to give the rest of the liter per VO from MARIO ALBERTO. MARIO ALBERTO also stated that after speaking with neuro, pt is to be transferred to [facility] for MRI and further evaluation. Normal [facility] Ethanol.on 12-21-2021 Ethanol Level 9.0 mg/dL High 0.0-5.0 [facility] Comment on above: Performed By: #### 2 [id number] #### [facility] (DEFAULT) [address] [place] [address] Extra Kite 12-21-2021 Tube Collected Yes Invalid Interpretation Code [facility] Comment on above: Performed By: #### 2 834888, [id number] #### [facility] (DEFAULT) [address] [place] [address] Extra Redon 12-21-2021 Tube Collected Yes Invalid Interpretation Code [facility] Comment on above: Performed By: #### 7 359944, [id number], 8676868, 31512595, 9908317, 8414727, 0589671896, 2389284, 4518321965 #### [facility] (DEFAULT) [address] [place] [address] 12474 Magnesiumon 12-21-2021 Magnesium [Mass/Vol] 2.02 mg/dL Normal 1.80-2.50 [facility] Comment on above: Performed By: #### 7 198446, 7856253482, 1753768, 90534188, 8491353, 8452119, 5296943866, 8650882, 7290623790 ####[facility] (DEFAULT)[address] [place] [address] 62476 PTon 12-21-2021 INR Coag (PPP) [Relative time] 0.94 {INR} Normal 0.91-1.11 [facility] Comment on above: Performed By: #### 7 751884, 0559619054, 3410631, 19969349, 5313583, 6875853, 9736889613, 9642755, 3965040863 ####[facility] (DEFAULT)[address] [place] [address] PT 10.2 second(s) Normal 9.7-11.8 [facility] Comment on above: Performed By: #### 7 155899, 9887796357, 4000581, 99867114, 0079601, 5903803, 3778785970, 6480230, 4304855793 ####[facility] (DEFAULT)[address] [place] [address] 56190 PTTon 12-21-2021 PTT 26 second(s) Normal 25-35 [facility] Comment on above: Performed By: #### 7 071428, 6593175732, 3755122, 28492860, 7355932, 0794273, 6976459496, 1852521, 4953705107 ####[facility] (DEFAULT)[address] [place], [place] [address] Test Urine 1 U Preg Negative Normal [facility] Comment on above: Performed By: #### 1 [id number], [id number] ####[facility] (DEFAULT)[address] [place] [address] 21911 U Preg Internal Control Pass [facility] Comment on above: Performed By: #### 1 [id number], [id number] ####[facility] (DEFAULT)[address] [place] [address] 06577 Salicylateon 12-21-2021 Salicylate Lvl <4.0 Normal 0.0-30.0 [facility] Comment on above: Result Comment: Sali cylate ranges less than 30 mg/dL are considered to be therapeutic. Levels greater than 30 mg/dL are considered toxic and levels greater than 60 mg/dL may be lethal. Performed By: #### 2 428647, [id number] #### [facility] (DEFAULT) [address] [place] [address] 04798 TnI HSon 12-21-2021 Troponin I High Sensitivity <2 Normal <=15 [facility] Comment on above: Result Comment: Male Baseline Delta 1Hr (Note pg/mL=ng/L) <20pg/mL 50-60% >20pg/mL 20% Female Baseline Delta 1Hr <15pg/mL 50-60% >15pg/mL 20% Other Baseline Delta 1Hr <18ng/mL 50-60% >18ng/mL 20% ([employer] Guidelines February 2018) Performed By: #### 7 524813, 2648190174, 5682630, 48076857, 6115657, 6196564, 9100802099, 1057899, 7328151481 ####[facility] (DEFAULT)[address] [place] [address] 00997 Triage Panel 12on 12-21-2021 Triage Internal Control Pass Normal [facility] Comment on above: Performed By: #### 1 [id number] ####[facility] (DEFAULT)[address] [place] [address] 09858 U Amph Scr Negative [facility] Comment on above: Performed By: #### 1 [id number] ####[facility] (DEFAULT)[address] [place] [address] 45040 U Vanesa Scr Negative [facility] Comment on above: Performed By: #### 1 [id number] ####[facility] (DEFAULT)[address] [place] [address] 99150 U Benzodia Scr Negative Normal [facility] Comment on above: Performed By: #### 1 [id number] ####[facility] (DEFAULT)[address] [place] [address] 37454 U Cannab Scrn Negative [facility] Comment on above: Performed By: #### 1 [id number] ####[facility] (DEFAULT)[address] [place] [address] 89485 U Cocaine Scr Negative Normal [facility] Comment on above: Performed By: #### 1 [id number] ####[facility] (DEFAULT)[address] [place] [address] 62131 U Methadone Scr Negative [facility] Comment on above: Performed By: #### 1 [id number] ####[facility] (DEFAULT)[address] [place] [address] 73025 U Methamp Scrn Negative [facility] Comment on above: Performed By: #### 1 [id number] ####[facility] (DEFAULT)[address] [place] [address] 66919 U Opiate Scr Negative [facility] Comment on above: Performed By: #### 1 [id number] ####[facility] (DEFAULT)[address] [place] [address] 90556 U Oxycod Scr Negative Normal [facility] Comment on above: Performed By: #### 1 [id number] ####[facility] (DEFAULT)[address] [place] [address] 54891 U Phencyclidine Scr Negative Normal [facility] Comment on above: Performed By: #### 1 [id number] ####[facility] (DEFAULT)[address] [place] [address] 95668 U Propoxyphene Scr Negative Normal [facility] Comment on above: Performed By: #### 1 [id number] ####[facility] (DEFAULT)[address] [place] [address] 58919 U Tricyclic Antidepress Scr Negative Normal [facility] Comment [...] PPX Propoxyphene (Norpropoxyphene): 300 ng/mL THC Cannabinoids (14-nxq-5-carboxy- -THC): 50 ng/mL TCA Tricyclic-Antidepressants (Desipramine): 300 ng/mL Performed By: #### 1 [id number] ####[facility] (DEFAULT)[address] [place] [address] Urine Source Clean Catch [facility] Comment on above: Performed By: #### 1 [id number] ####[facility] (DEFAULT)[address] [place] [address] 33652 UA w Culture if Ind Standard on 12-21-2021 Color (U) Yellow Normal [facility] Comment on above: Performed By: #### 1 [id number], [id number] ####[facility] (DEFAULT)[address] [place] [address] 11245 Culture? Not Indicated Invalid Interpretation Code [facility] Comment on above: Result Comment: Resu lt created by rule GL_MAGR_ADD_UA_[id number] Performed By: #### 1 [id number], [id number] ####[facility] (DEFAULT)[address] [place] [address] 19617 Glucose (U) [Mass/Vol] Negative Normal [facility] Comment on above: Performed By: #### 1 [id number], [id number] ####[facility] (DEFAULT)[address] [place] [address] 89269 Ketones Ql (U) Negative Normal [facility] Comment on above: Performed By: #### 1 [id number], [id number] ####[facility] (DEFAULT)[address] [place] [address] 27752 Micro? Not Indicated Invalid Interpretation Code [facility] Comment on above: Result Comment: Resu lt created by rule GL_MAGR_ADD_UA_MICRO Performed By: #### 1 [id number], [id number] ####[facility] (DEFAULT)[address] [place] [address] 19284 UA Bilirubin Negative Normal [facility] Comment on above: Performed By: #### 1 [id number], [id number] ####[facility] (DEFAULT)[address] [place] [address] 29222 UA Blood Negative Normal NEGATIVE [facility] Comment on above: Performed By: #### 1 [id number], [id number] ####[facility] (DEFAULT)[address] [place] [address] 29022 UA Clarity CLEAR Normal CLEAR [facility] Comment on above: Performed By: #### 1 [id number], [id number] ####[facility] (DEFAULT)[address] [place] [address] 79344 UA Leuk Est Negative Normal NEGATIVE [facility] Comment on above: Performed By: #### 1 [id number], [id number] ####[facility] (DEFAULT)[address] [place] [address] 19746 UA Nitrite Negative Normal NEGATIVE [facility] Comment on above: Performed By: #### 1 [id number], [id number] ####[facility] (DEFAULT)[address] [place] [address] 82812 UA pH 6.5 Normal 5-8 [facility] Comment on above: Performed By: #### 1 [id number], [id number] ####[facility] (DEFAULT)[address] [place] [address] 89800 UA Protein Negative Normal NEGATIVE [facility] Comment on above: Performed By: #### 1 [id number], [id number] ####[facility] (DEFAULT)[address] [place] [address] UA Spec Grav <=1.005 Normal 1.001-1.035 [facility] Comment on above: Performed By: #### 1 [id number], [id number] ####[facility] (DEFAULT)[address] [place] [address] UA Urobilinogen 0.2 mg/dL Normal 0.2-1.0 [facility] Comment on above: Performed By: #### 1 [id number], [id number] ####[facility] (DEFAULT)[address] [place] [address] 10079 Breakpoint UA Normal [facility] Comment on above: Performed By: #### 1 [id number], [id number] ####[facility] (DEFAULT)[address] [place] [address] 02874 Urine Source Clean Catch Normal [facility] Comment on above: Performed By: #### 1 [id number], [id number] ####[facility] (DEFAULT)[address] [place] [address] 81147 XR Chest 2 Viewson XR Chest 2 [...] Bowen 12/21/21 9:38 pm Technologist: SRF,L Normal [facility] CARDIAC HUMAIRA ADMITon 021 CK [Catalytic activity/Vol] 117 U/L Normal 30-135 [facility] Comment on above: Performed By: #### T SH, CMADM, CMP #### [facility] [address] [place], [place] [address] Nelida Bautista CK.MB [Mass/Vol] 1.16 ng/mL Normal <=2.37 [facility] Comment on above: Performed By: #### T SH, CMADM, CMP #### [facility] [address] [place] [address] Nelida Lily HSTROP <4.0 Normal 4.0-35.5 [facility] Comment on above: Result Comment: CUT- OFF POINTS HAVE BEEN ESTABLISHED BASED ON THE FOURTH UNIVERSAL DEFINITIONS OF MYOCARDIAL INFARCTION. THE UPPER REFERENCE LIMIT (URL) OF TROPONIN, DEFINED THE 99TH PERCENTILE OF cTnI DISTRIBUTION IN A REFERENCE POPULATION, HAS BEEN CONFIRMED THE DECISION THRESHOLD FOR [place] DIAGNOSIS. Performed By: #### T HAYDE, CMADM, CMP #### [facility] [address] [place] [address] Nelida Lily NGA 41.0 ng/mL Normal <=61.5 [facility] Comment on above: Performed By: #### T HAYDE, CMADM, CMP #### [facility] [address] [place], [place] [address] Nelida Lily CBC AUTO DIFFon 02-23-2021 BASO # 0.1 103/ul Normal 0.0-0.1 [facility] Comment on above: Performed By: #### C BC #### [facility] [address] [place] [address] Nelida Lily Basophils/100 WBC (Bld) 1.0 % Normal 0.2-2.0 [facility] Comment on above: Performed By: #### C BC #### [facility] [address] [place], [place] [address] Nelida Lily EO # 0.1 103/ul Normal 0.0-0.7 [facility] Comment on above: Performed By: #### C BC #### [facility] [address] [place], [place] [address] Nelida Lily Eosinophils/100 WBC (Bld) 2.2 % Normal 0.9-7.0 [facility] Comment on above: Performed By: #### C BC #### [facility] [address] [place] [address] Nelida Bautista Erythrocyte distribution width (RBC) [Ratio] 14.2 % Normal 11.0-15.0 [facility] Comment on above: Performed By: #### C BC #### [facility] [address] [place] [address] Nelida Lily Hematocrit (Bld) [Volume fraction] 40.6 % Normal 36.0-48.0 [facility] Comment on above: Performed By: #### C BC #### [facility] [address] [place] [address] Nelida Lily Hemoglobin (Bld) [Mass/Vol] 13.3 g/dL Normal 12.0-16.0 [facility] Comment on above: Performed By: #### C BC #### [facility] [address] [place] [address] Nelidajose Bautista IG # 0.02 10e3/ul Normal 0.00-0.03 [facility] Comment on above: Performed By: #### C BC #### [facility] [address] [place] [address] Nelida Bautista IG % 0.4 % Normal 0.0-0.5 [facility] Comment on above: Performed By: #### C BC #### [facility] [address] [place] [address] Nelida Lily LYMPH # 1.7 103/ul Normal 1.2-3.8 [facility] Comment on above: Performed By: #### C BC #### [facility] [address] [place] [address] Nelida Bautista Lymphocytes/100 WBC (Bld) 34.6 % Normal 20.5-60.0 [facility] Comment on above: Performed By: #### C BC #### [facility] [address] [place] [address] Nelida Bautista MANUAL DIFF REQ NO Normal [facility] Comment on above: Performed By: #### C BC #### [facility] [address] [place], [place] [address] Nelidajose Bautista MCH (RBC) [Entitic mass] 31.5 pg Normal 26.7-34.0 [facility] Comment on above: Performed By: #### C BC #### [facility] [address] [place] [address] 759[address] Nelidajose Bautista MCHC (RBC) [Mass/Vol] 32.8 g/dL Normal 29.9-35.2 [facility] Comment on above: Performed By: #### C BC #### [facility] [address] [place], [place] [address] Nelidajose Bautista MCV (RBC) [Entitic vol] 96.2 fL Normal 81.0-99.0 [facility] Comment on above: Performed By: #### C BC #### [facility] [address] [place] [address] Nelidajose Kimbleen MONO # 0.4 103/ul Normal 0.3-0.8 [facility] Comment on above: Performed By: #### C BC #### [facility] [address] [place], [place] [address] Nelida Lily Monocytes/100 WBC (Bld) 7.1 % Normal 1.7-12.0 [facility] Comment on above: Performed By: #### C BC #### [facility] [address] [place], [place] [address] Nelidajose Kimbleen NEUT # 2.7 103/ul Normal 1.4-6.5 [facility] Comment on above: Performed By: #### C BC #### [facility] [address] [place], [place] [address] Nelida Lily Neutrophils/100 WBC (Bld) 54.7 % Normal 43.0-75.0 [facility] Comment on above: Performed By: #### C BC #### [facility] Laboratory [address] [place], [place] [id number] Nelida Lily Platelet mean volume (Bld) [Entitic vol] 9.8 fL Normal 9.5-13.5 [facility] Comment on above: Performed By: #### C BC #### [facility] [address] [place], [place] [address] Nelida Lily PLT 320 103/ul Normal 150-450 [facility] Comment on above: Performed By: #### C BC #### [facility] [address] [id number] Nelida Lily RBC 4.22 106/ul Normal 4.20-5.40 [facility] Comment on above: Performed By: #### C BC #### [facility] [address] [place], [place] [address] Nelida Lily WBC 4.9 103/ul Normal 4.0-11.0 [facility] Comment on above: Performed By: #### C BC #### [facility] [address] [place], [place] [address] STROKE HEAD WOon 02-24-20 [...] JANESSA SKINNER Date: 2021-02-23 13:52 Normal [facility] ER URINE PROFILEon 1 Bilirubin Ql (U) Negative Normal NEGATIVE [facility] Comment on above: Performed By: #### E RUR #### [facility] [address] [place], [place] [address] Nelida Buatista Clarity (U) CLEAR Normal CLEAR [facility] Comment on above: Performed By: #### E RUR #### [facility] [address] [place] [address] Nelida Lily Color (U) LT. YELLOW Normal YELLOW [facility] Comment on above: Performed By: #### E RUR #### [facility] [address] [place], [place] [id number] Nelida Lily ERUAHD A micrscopic examination will be performed if indicated. Normal [facility] Comment on above: Performed By: #### E RUR #### [facility] [address] [place] [address] Nelida Lily Glucose Ql (U) Negative Normal NEGATIVE The [facility] Comment on above: Performed By: #### E RUR #### [facility] [address] [place] [address] Nelida Lily Hemoglobin Ql (U) Negative Normal NEGATIVE [facility] Comment on above: Performed By: #### E RUR #### [facility] [address] [place] [address] Nelida Lily Ketones Ql (U) Negative Normal NEGATIVE [facility] Comment on above: Performed By: #### E RUR #### [facility] [address] [place] [address] Nelida Lily LEUKOCYTES Negative Normal NEGATIVE [facility] Comment on above: Performed By: #### E RUR #### [facility] [address] [place] [address] Nelida Lily Nitrite Ql (U) Negative Normal NEGATIVE [facility] Comment on above: Performed By: #### E RUR #### [facility] [address] [place] [address] Nelida Lily pH (U) 8.0 [pH] Normal 5-9 [facility] Comment on above: Performed By: #### E RUR #### [facility] [address] [place] [address] Nelida Lily SPEC GRAVITY 1.020 Normal 1.005-<=1.025 [facility] Comment on above: Performed By: #### E RUR #### [facility] [address] [place] [address] Nelida Lily UA PROTEIN Negative Normal NEGATIVE/ TRACE [facility] Comment on above: Performed By: #### E RUR #### [facility] [address] [place], [place] [id number] Nelidajose Bautista UR MICRO IND NOT INDICATED Normal [facility] Comment on above: Performed By: #### E RUR #### [facility] [address] [place], [place] [address] Nelida Bautista Urobilinogen Qn (U) 0.2 {Jose Carlos'U}/dL Normal 0.2 - 1. 0 [facility] Comment on above: Performed By: #### E RUR #### [facility] [address] [place], [place] [address] Nelida Bautista POINT OF CARE GLUCOSEon 01-27 Glucose [Mass/Vol] 95 mg/dL Normal 74-106 [facility] Comment on above: Performed By: #### P OCGLUC #### [facility] [address] [place], [place] [address] Nelida Bautista PREG HCG QUALon 02-23-2021 , QUAL Negative Normal NEGATIVE [facility] Comment on above: Performed By: #### P REG #### [facility] [address] [place] [address] Nelida Bautista PROF 14(COMP METB)on 021 Albumin [Mass/Vol] 3.6 g/dL Normal 3.5-5.0 [facility] Comment on above: Performed By: #### T JOÃO LOCK, CMP #### [facility] [address] [place] [address] Nelida Bautista Albumin/Globulin [Mass ratio] 0.9 {ratio} Normal [facility] Comment on above: Performed By: #### T JOÃO LOCK, CMP #### [facility] [address] [place], [place] [address] Nelida Bautista ALP [Catalytic activity/Vol] 103 U/L Normal 38-126 [facility] Comment on above: Performed By: #### T JOÃO LOCK, CMP #### [facility] [address] [place] [address] Nelida Lily ALT [Catalytic activity/Vol] 35 U/L Normal 9-52 [facility] Comment on above: Performed By: #### T JOÃO LOCK, CMP #### [facility] [address] [place] [address] Nelida Lily Anion gap [Moles/Vol] 13.3 mmol/L Normal [facility] Comment on above: Performed By: #### T JOÃO LOCK, CMP #### [facility] [address] [place] [address] Nelida Lily AST [Catalytic activity/Vol] 28 U/L Normal 14-36 [facility] Comment on above: Performed By: #### T JOÃO LOCK, CMP #### [facility] [address] [place] [address] Nelida Lily Bilirubin [Mass/Vol] 0.2 mg/dL Normal 0.2-1.3 [facility] Comment on above: Performed By: #### T JOÃO LOCK, CMP #### [facility] [address] [place] [address] Nelida Lily Calcium [Mass/Vol] 9.0 mg/dL Normal 8.4-10.2 [facility] Comment on above: Performed By: #### T JOÃO LOCK, CMP #### [facility] [address] [place] [address] Nelida Lily Chloride [Moles/Vol] 108 mmol/L Critically high 98-107 [facility] Comment on above: Performed By: #### T JOÃO LOCK, CMP #### [facility] [address] [place] [address] Nelida Lily CO2 [Moles/Vol] 25.8 mmol/L Normal 22.0-30.0 [facility] Comment on above: Performed By: #### T JOÃO LOCK, CMP #### [facility] [address] [place] [address] Nelida Lily Creatinine [Mass/Vol] 1.00 mg/dL Normal 0.52-1.04 [facility] Comment on above: Performed By: #### T JOÃO LOCK, CMP #### [facility] [address] [place], [place] [address] Nelida Lily EGFR-AF IRAQI >60 Normal >=60 [facility] Comment on above: Performed By: #### T JOÃO LOCK, CMP #### [facility] [address] [place], [place] [address] Nelida Lily EGFR-NON AF IRAQI >60 Normal >=60 [facility] Comment on above: Performed By: #### T JOÃO LOCK, CMP #### [facility] [address] [id number] Nelida Lily Globulin (S) [Mass/Vol] 4.2 g/dL Normal [facility] Comment on above: Performed By: #### T JOÃO LOCK, CMP #### [facility] [address] [place] [address] Nelida Lily Glucose [Mass/Vol] 95 mg/dL Normal 74-106 [facility] Comment on above: Performed By: #### T JOÃO LOCK, CMP #### [facility] [address] [place] [address] Nelida Lily Potassium [Moles/Vol] 4.1 mmol/L Normal 3.4-5.0 [facility] Comment on above: Performed By: #### T JOÃO LOCK, CMP #### [facility] [address] [id number] Nelida Lily Protein [Mass/Vol] 7.8 g/dL Normal 6.1-8.2 [facility] Comment on above: Performed By: #### T JOÃO LOCK, CMP #### [facility] [address] [place] [address] Nelida Lily Sodium [Moles/Vol] 143 mmol/L Normal 137-145 [facility] Comment on above: Performed By: #### T JOÃO LOCK, CMP #### [facility] [address] [id number] Nelida Lily Urea nitrogen [Mass/Vol] 10.0 mg/dL Normal 7.0-17.0 [facility] Comment on above: Performed By: #### T JOÃO LOCK, CMP #### [facility] [address] [place], [place] [address] Nelida Bautista Urea nitrogen/Creatinine [Mass ratio] 10.0 mg/mg Normal [facility] Comment on above: Performed By: #### T JOÃO LOCK, CMP #### [facility] [address] [place], [place] [address] Nelida Bautista TSHon 02-23-2021 TSH 1.157 uIU/mL Normal 0.470-4.680 [facility] Comment on above: Performed By: #### T JOÃO LOCK, CMP #### [facility] [address] [id number] Nelida Bautista TSH RANGE SEE BELOW Normal [facility] Comment on above: Result Comment: <0.3 4 UIU/ml HYPERTHYROID 0.34-5.60 UIU/ml EUTHYROID >5.60 UIU/ml HYPOTHYROID Performed By: #### T JOÃO LOCK, CMP #### [facility] [address] [id number] Nelida Bautista XR CHEST 1 Von 02-23-2021 [...] JANESSA SKINNER Date: 2021-02-23 13:53 Normal [facility] Encounters Encounter Date Encounter Type Care [...] Start: 12-22-2021 End: 12-22-2021 ambulatory [facility] Start: 02-23-2021 End: 02-23-[address] [facility] Facility: Payers Date Payer Category Payer Unknown [id number] 1985 Unknown [id number] 2.16.84 [id number] 1985 Unknown [id number] 2.16.84 [id number] 1987 Unknown [id number] 2.16.84 [id number] 1987 Unknown [id number] 2.16.84 [id number] 1987 Unknown [id number] 2.16.84 [id number] 1987 Unknown [id number] 2.16.84 [id number] 1987 Unknown [id number] 2.16.84 0.1.472160.3.579.2.9 1987 Unknown [id number] 2.16.84 [id number] 1987 Unknown [id number] 2.16.84 0.1.582669.3.579.2.9 1987 Unknown [id number] 2.16.84 0.1.465596.3.579.2.1258 1987 Unknown [id number] 2.16.84 0.1.927537.3.579.2.9 1987 Unknown [id number] 2.16.84 [id number] 1959 Unknown [id number] Summary Purpose Family History No Family History Records FoundNo Family History Records FoundNo Family History Records FoundNo Family History Records Found Advance Directives No Advanced Directives Records FoundNo Advanced Directives Records FoundNo Advanced Directives Records FoundNo Advanced Directives Records Found Additional Source Comments INFORMATION SOURCE (unrecogn ized section and content) DATE CREATED AUTHOR 02/28/2021 [facility] DATE CREATED AUTHOR AUTHOR'S ORGANIZ ATION 12/24/2021 [facility] DATE CREATED AUTHOR AUTHOR'S ORGANIZ ATION 01/01/2022 [facility] DATE CREATED AUTHOR AUTHOR'S ORGANIZ ATION 02/24/2024 [facility] EPIC FOR RECORDS PERTAINING TO [...] BE BASED ON THE PRIMARY CLINICAL RECORDS. [facility] [employer] [facility]. provides no warranty or guarantee of the accuracy or completeness of information in this document.
--- NOTE | 2024-03-08 14:13 | PC.NURSE ---
T.C. follow up with Sarah per this scientific writer. Sarah states is doing well, has no complaints for self. Denies concerns of headache, visual disturbances or epigastric discomfort. Pt states is taking Labetolol as directed BID. Sarah states milk is in, and baby latching and feeding well to left side. Denies concerns of painful latch. less successful with latching on right breast as breast is firm and tender. Pt encouraged to use ice pack between feeds, and pump to soften prior to feed to enable deeper latching. Sarah flannery will start with next feed. Baby doing well, 6 wets and 4 stools since midnight, wakes self to feed, latches to left breast well, more difficult on right. Baby is eating every 1-3 hours and mom does wake baby after 3 hours for feed. Sarah to see Dr Pandey on 03/08/2024 for follow up appointment and baby scheduled for her PCP appointment as well. No concerns voiced at this time. Aware to call back as needs for support.
== END 2024-03-03 08:00 | disposition home or self-care (01) ==
LOC: FBCO 08:00
PROVIDERS: Visit Provider Obstetrics & Gynecology
DX: Z39.2 Encounter for routine postpartum follow-up (principal)

== ENCOUNTER 2024-04-12 08:09 | Outpatient (OUT) | payer BC, SELFPAY ==
--- OUTSIDE RECORDS SUMMARY | 2024-04-12 08:30 | XMS_ITS | CCD ---
Author Organization [facility] [employer] [facility] Care Team Providers Care Movement Assembly Final Inspector Name Role Phone HAMZAH, DR OLSON Primary Care Unavailable PAY, DR OLSEN Admitting Unavailable PAY, DR OLSEN Attending Unavailable ZIEBER, DR JANESSA Davila Consulting Unavailable PAY, DR OLSEN Consulting Unavailable SCHLACHTER, JARVIS Referring Unavailable SCHLACHTER, JARVIS Primary Care Unavailable CHODISETTY, SUBRAHMANYAM Consulting Unavail able CADEN CERNA Attending Unavailable CADEN CERNA Admitting Unavailable DAVIN GAGE Consulting Unavailable ZACKERY, MARYANN Attending Unavailable NEELAM, SHAWNA Attending Unavailable ZACKERY, MARYANN Attending Unavailable NEELAM, SHAWNA Attending Unavailable ZACKERY, MARYANN Attending Unavailable ZACKERY, MARYANN Attending Unavailable ZACKERY, MARYANN Attending Unavailable ZACKERY, MARYANN Attending Unavailable NEELAM, SHAWNA Attending Unavailable NEELAM, SHAWNA Attending Unavailable ZACKERY, MARYANN Attending Unavailable ZACKERY, MARYANN Attending Unavailable Problems Problem Classification Problem Date [...] Coding Summaryon 12-31-2021 Coding Summary HTMLBase 64 SmsqmtrcOOg4mPj+PGhl YWQ+QR5APFGsV64hmHZd kP3FK2aWOX1IMSIHNXML VP9WXK5cmMN3CGhnX5Xb biAv WqegkYGsMW55AGm3FTR5 gDvxGOwtsR1aqDMdE3l7 UjDnAP59xB29LOpeMLQw JqI8WgAshboouZFw R7vmPlPucNUwKul+PHRh YmxlIHdpZHRoPScxMDAl RbVmyRgfDA7iLq8fEARa LWNvbGxhcHNlOiBj p6cpGLYoUFgnIU9lsMnf H8CqrFS4KZHqy5i7Oo24 dHI+LIAxMVI5uNztDAqq g963TbPxk5mgHTE1 bOPhWRusPWC0A75rk4E1 AJUvJCSdTGX0lBQ5xR8j kIntodekL7BqsWPyBoH7 YOU1vSAasT6waKem wcuycU1mPtw+E95JEW4A YWURLC8CLdb0W2MgFhen dHI+LS62KCEsMB56wIUt ePGdl5wvnOi7BbZt XNZiHNA5sEhbJYtrd8Si GUZmD23ocZIip3S9DAOu uNllxOVyIuZuhEM7lJ2s QZouwmydn9fbbnyq Wlcjx8ozsq46uN07Z39b MSqhRJYuPCX8HFDbSEKx wZtfwx9tbL6tWc8+IDxj l3dog7eirNf7NlUa PCHchrYjiOxpIPW4j9Kh Ch43S9LnhJeye1MmJmr2 ha42sUPik3J2uLI8FZwz GFEmsG3gTDzsQlW6 TDZkCgHojF09dZGaDFso Vm7lyHaftFytTV2hFRAg iqmgKNSdfD9yDWYclJFm qJjuVC7kDPTvgzro b066WfJkLSS2FUSufEVw C7YekE6lPoKqMCNxQASz P7UgiUBwNHviQ048QNir AvD7LTFujxEfB0Js EAIgjWagHpF1b9X4Zp6N u3XztnkxRYJ3MGzwETK0 SfQ6SyDbUdN0B0NrAji2 CNFduSugMA8kH5Cm RFDeqzwcahmqsTG4RLXm EUThjE98fGNtJIkbIt6v r2Z1d811BPQkDVDrlE66 Wn9zkVxrWXHswTSK vB8mnxxvn7dhafzpIjRa KTBsLCo6BWp2VXCfzVvx QnBtSHT8SfP6EBZ5hRZu eB1fgWyeqzepmO1i Oyc+T96xjC7dWQM1EHS4 zbgeYMFqsySjXS47IX73 K8NkEuaioMPvrYB+PGRp ceVfxDibUU9uZiYd v0qub7RpSShaG6LhBBFa ICskWes0LJReSLB3qNF6 fE8tQZVwBJpsn7C6aRZ9 U2TucwJoyh8gw4na ZVHqJVvoR11ryZEvb3X8 EZGwzIG6FYReaXjvLjWg xU65Rla+JKXbbQdxb4Tu Bpinf8vss8hdpOa5 IjMwJSIgdmFsaWduPSJ0 f5DfZx53H93oPOyiIDTu ONDnONDaLIEsfTqpzn5u uC7mXs0+PGNvbCB3 zQI2kD1xRIKfBsX1OMwp A445ZlLwkYSkBuxhl6uq h4myeLb4KnUwVUHczlFz cBfiCVZ5y7XtQt33 B58iZYseYWPjLGYoJABs RTRefBggez2jwG3uMl7+ DB6jz3gpcz90wD37cGX+ YLJkLMX2fCvyKPzm SJZxwF4wJTxdUgH9MKDf SeOcaZ94vYPbCXldBe6t rKycmKnyVZ4mQPVuiunc b421MwSwv2zgPONx nXCmTOinVYX2Q32aq9W3 BSMlOTOrFLC0fIF8fX7i bGlnbjogbGVmdDsgdmVy gTzyTQgvTWopN942 IHRvcDsnPlBhdGllbnQg TgJtGUh3W0PzYce7HYWy oRffOQ5arCZcTZayMu9g zIulwElaOQ8tOSKf dblsv988LyUiz5fpRUUj iXQrYEelFUB2F56rn3P7 HTLqWDNcPUS8yFN5yO8u bGlnbjogbGVmdDsg ksUsfGinNEjfYQvkA796 IHRvcDsnPkJpcnRoIERh dTG0BO73HY83bFDco4H8 xDZ6M1AkDCSyktcq ranwuFJ2ASIzKGMzoV94 Ft9obSrkCr2mGWErXLW4 KZZhhQVrK8HicF4pNbYw RFUhETZlR5GmiOCk ODaoR337YHqrLfB5BRPf ybMfM2GfYSBfrCfnAwQ8 q2S3Rq2JZ4V6JU46GH32 uPPhy0T6xVQ7A2Qf YRXcrpuenhvneXP4EMCq OYFkcG82Bi8dmMeeRi9r ZKJmKHP4TIOkyAWmV8Of mD4sBxRoEASfRDYm J1DcqSCoIVyeY833GPiy CfP8DGDbypNxM7OaFMPr aZtfOjA2j4X3Tk9FXSz3 BG81SN53nUTjo9K7 oGH8Q9UnFIWlwbaonzpm pCK0UGSvSFIswC65Em4n mPzwXi3cULPkTMK7TLNy sASiT6KqmW6eFvIh FMIaWSAuI6KtqKYzIRgb Y780CVluGuU3MFBczfZg Y9HpHFOhkLunAfY3g3L9 Ji2LELLaGE61COT6 tUB1VK88MB26D4LvUuit dGFibGU+PHRhYmxlIHdp ZHRoPScxMDAlJyBzdHls ZJ6gMm8yAUAfFHMx zRszbWCfOnEhf6ruOQXu BIiqCM9ikUicF6DcdZF4 SVQma0a1Me70U21cU6Tg dXA+XCCkmXJ3eSM6 oW0jPvKoMvV6KTcpA558 HwMduRWfSqrrl1osc6rx hZr9UrP3RKEixrUpaZea VKB8k7AgQo14Q04c IHdpZHRoPSIxNSUiIHZh hUwrxa5prA5aZo4+PGNv iQV4gBF1zP7oQoDaUjH4 CVgsD344WxKnrDGx Crpir5dtn0nljXd9HnMg MXPsfsFleOxqQCP5b9Gd Ix01T0VetYpzt9RuGco3 ox27fQHxl9E5rMG0 R6RcTFOyzzrewCPwpKdk DQ8sZARstoitSZRnxG2g KRGdU7k5UjSeRnB8NZzn F1RbbeZ1ZXZtiHBk VUyiLRH5Y72ol8S8ZOXp MXAlYUW9iBW5rM8ttEry bjogbGVmdDsgdmVydGlj LJxkHGarF430CHEt uNvrOJRpyV7zRMAvsRXe iSjsQQ0hJYCzthfzGvrE UMHHHUTKWTLAIkICHX19 GA98bPEdm9Z5iYZ7 Y2BuALUbnsuaflnmsRY0 XLInGKHydF68wTSoTFve Xv4th3B5f362WNLyGWGq cH57Mh1pzZulKXGx fWSFgY7kcfdtz9xhmfml UjYbJYLoCOi7TIs7IUXk xXtqKpSgLHD1AjP9RNP1 mISskJ4ckNgbesrb eM0rFco+MDEvMDgvMTk4 ODwvdGQ+VBIuHQY3kEuu QFugWKDreI1fBYVpK9f2 GgMaBtP7FJaxF2Yl SJWeagboIz99aH5dJbGx BaS0VHhvX1LftdX0OIIz tYBbPJtwOJJ8M17il0T5 HSLzRSLxVJJ6wDE5 yO5ygGfsqergqLUejNgz zmRpdQnvZEipPSedH934 YVVbjVfdUmT9PJrjRWPr AX95DG28tXFpg7B7 zNE8K7TnQAGuluxfgysk nTD4EGVpZTTnzE27jREe DXxxJl7vw9C6y610DZSs LIVqqK48Pv7coEyn YFLwoKVNwX0mitkbz5hs xloaHyKsQZTwGWa1HQp4 DPHgiFkaNdKiNAW2HgP1 VEU7yQPqrR7juBxo eghclW9dYww+RkVNQUxF VL80UN78oZJls0N6wQB2 U6YnWOHoeexinsxviUC9 YFHgYBPpsJ84dZTg PBivGs5ow7D4r650NIKi PNGtaX00Tc9xxUyoAMFf oVMIaQ6saxhgh7jbcout MqJrPXTuXJz5PUc9 WIVczYqlNqMcIPG2JsR8 FXA1kKOroI4ocRhkorxt jN8rHug+T5M7H5XlUuhu dHI+FZ99AWQvRM14 oKIryXCqf7yexZn3VkIr NMRmMXZ7wRhpRYthq3An HISxQ77cbQPtz7N2HGUm bGxhcHNlOyBlbXB0 wW0zHXehbjrlw8lsxkzt Jmnjd9qwcy65xW46G41r IHdpZHRoPSIzMCUiIHZh aPmjev0gxS6qUh9+ MHTesOS1wYG0eF5xZzJj AxC2AZgkP508HqQvyTLz Farpc6cji2lncAj2TrVi JSIgdmFsaWduPSJ0 e6AeBf76L22aCDpuAGLp FWUgDQHhXGYqaUpddm5z hJ4eLr4+MR6qo6jhoc16 iT98cJI+PHRkIHN0 tYtcEZdiMWOlpY6hTEge SdZ4FJAcEcFtsE50qREa BKunOc6vfShalWvlAE5i NJPewtypo791DyGz c4qvTDRtjOJpAUwtWGU4 U84cu3S7BTLaFKRiUPT8 wZA9aY8kpSvizrskdKVm dDsgdmVydGljYWwt WCuyE888KCAcgZspJqIq lUPqZ8binoVGFL5iSgex dGQ+YPHgEWX9jLicSJna WTBrzF6tXKZiX8r8 UpJfKsK2ZWmfF6EvpxS2 HDFpyCGcVZKecSXTmQ7s urpro3kgzpgwSuTcAYAt XOv7MCs4ODVjyPqx PgSoXKP4AeM5UGR2rTUv wL9iyMopgrxdpY3wBzy+ RklOOjwvdGQ+PHRkIHN0 dNlePSdoUQXacT3e ZOKmR2k1VaAuBfW1NNzz G4HtrcR2PYLtdPTlLGLq dDMEzK0qkqhks8ubkqqw KbIjOVFsVZg1AQa0 ABDaaZeiRjHrSXH1CgB3 UYZ4fIMtcE2emDnmfmvi hA5bVoc+TVJOOjwvdGQ+ CZMzLAJ5yGljHQxt JQFjeV7mBEDuU3j4HnPw LhV2EJejC5EvmbF3YZEf gIYuBWIyaNGQbR8whrzc s3agzphtWyLeJNFe WBs9LSa6KTXadTquSpBk FNA7AnM3EOW0fVPlnF5t wUsllpcrpB3kFqu+UGF5 MFA5QN51MV27G6Ek PjwvdGFibGU+PHRhYmxl IHdpZHRoPScxMDAlJyBz uMmdWQ9lLn2kMZQuLVZp oSnafQKaPrRzz4gr YXB (more content not included)... [facility] Coding Summary HTMLBase 64 WbgfjverKLj5tBk+PGhl YWQ+VJ1OSKEhD85auMFr jX2BR1cHDV3FYWRLKLXH KS0QOB5kbXX4SUuoM4Oa biAv IzemgMTpTP88WVz1QVT6 jYclBCfruX3elQRmN1j3 LzBcZK57sA02JQfxAJBy VvP1RzPvgcyfxIPf R1zmXhYnfDNpPwo+PHRh YmxlIHdpZHRoPScxMDAl CqNcvQpxJU4tWr1fSPHl LWNvbGxhcHNlOiBj n7gqPGBjXGdhHP9jpPmp D1RehDX6EBMfy9j4Ah71 dHI+EFFiMDQ9hAwbIMss s707KtPjg2ouKCV0 uPPiZNujDGT9N82pg2J1 UIKxELMrQGY1wFX5cK4g sLdmzpphS3WvvRVzQjY1 WSQ5uQKzaZ2elBbo saivgV8eEkc+X69FTP1H WUBIMW8XSxx1L1FlOgwv dHI+YU41CCHsMM55mZRs rSWlv8bdjJe3MaVm NZJxWUX1cRhlEJasy4Eu NHHmT65fvZDkc8J0PHAl yKkrmLNjSnBxoXZ6oQ8s QJncxfgzo5ctknlq Gwbon4tvkg93tG13Y81m RSslKKCfHWP4QIUqIUHm dAfdpi7vlA3wDm1+IDxj i7tlw2tpiNr0NsQk KBArkbQvfKwqIOQ5k2Ew Mm66K3BulFbzg9UxWqx2 wm06mZLic2H6kFM2FNdy SDXmnN6oAMbgVgJ4 GEMrGdDpoS65zLIxSXmf Rs2vhZdxzAtfHM4hUPQr ibujMPDcmK8tUPJvmPWk hHdwRX8rNORdqtie w302VhZaMAN8TMCfoUXu D4DpbO6zZpWgRSYoHFZx N7FmsLXaKIugK968JAaz GkX8JGXneqXeB1Vl MYWicWesCoA1f9P6Xi3T r7MnztdsEYI5KMerLDS8 MfZ8HkTvGbX7D2GbLxq4 HPCzzZrwVW9mK5Hn AQOkgiuoexcakEL6AYYz TCVxnA94qDMiHMwnGn4v o0Y7g160YTWtHADvxP21 Bo3fwFhmGRRmqRSC fS0sxslfw4wiktiyKdRi WBFrHFv6VEb1CSUvxBqc EmMjILT7YzY4WPS7vIDn bP3dwLahrqzkpS0m Oyc+X54jpJ6iDAC3GCK9 freoXAMcajIyXC37TJ40 G7JbNzpgmAQoxZU+PGRp rpMloXwwZP1lUqKx n6lps5HpNChxB5TdVTSh JYiwHbh5NNXfWHQ3gMY9 dI4iXYUmSIbxc1V9jMI5 V4DanwBivn1uy8us CXVmBFklI40piWVfd4D3 ICLruBL6RJIauNujOqGn bU83Bzb+TKJruMsdl4Kq Ycccn3wjy2keoNq2 IjMwJSIgdmFsaWduPSJ0 a7LhGy36E31cAGryHYAd NKVkWCYzNERagAgjtp7o tM4vZw5+PGNvbCB3 jVU4cA8gAQJvOyI0QLnl J286ArRrmRXjSgjjo4bo f4zpaVm9FqNtLXKwckRp gPueEJA7u9AxZc22 J55rWAgqNLTkUOXuZKVb DVRulRcuaz0gyR9mUj0+ AV6dh1gewg58iZ88dAV+ LDQhOUS2nTptEBmv WZLsvP2cHCuwIzP9ERQa NcJdcF69gCVzFCjyNt4x bFfjoWvsZR6tPSQuhbon t902HhCdr9dcUTDs xLUoCCqrWUU5T68wr3N8 SYYhMICrHCZ3vUU4gB6f bGlnbjogbGVmdDsgdmVy sQoxWJcbYKcmG346 IHRvcDsnPlBhdGllbnQg DfFbDCu7M6BpQbs1UVJn vRftAE2xnTWhBCecKp0w mXyjfPofEK7zKKFy wztcg543VsAgg5daMDVy wXFmGHrmBQI4A97ii1L2 KUXbZUKwUMZ6vPW8aQ5o bGlnbjogbGVmdDsg tkGjbFvlYHqxSUtkQ466 IHRvcDsnPkJpcnRoIERh eGA3SH98AU32xWXvt0H1 wTX0O8JaQLKqebue pseymQK4ILGlWFMpxM03 Gl2onXsiTo5zLMYzRLT3 VYXczVUfX8ZnaV6eLaPl LHXoXVGsD9GfgIKd GOtzU950CBcwGlX2UKEi jsNqX6NtIYXwsIzeUsL7 z6A3Zn3SG4H4QL88WC20 iOXpl6M0cMK7Q6Gk UQJfpsrihulorAG3GIVb XJUfaP72As3gzGkfOu7h UIFvXHN7WAKglAGbD1Cx tY3jGcKqDHEzIWSv E0NssXQoNBrkE656POkh XvT1HNHtorOkG9BzPUYb lBsjSiM6r9A0Yy4KJRv7 GA41WG49pZDar2D6 aGU0P6SyXNTvikqducnc fXW9MZYiKTNceR71Mv9a wXegBv0rDNDwIIN2KQRn uOKnR7RckA3rTwCa SBTjRYAfR7IhlTLgVYil E661CAnbNjO3VPFcirPf F4EmOTWhdDrzXlJ1j0D7 Iv4KVCQqEI71FPZ3 eCM0CM42YD21L5StWtxj dGFibGU+PHRhYmxlIHdp ZHRoPScxMDAlJyBzdHls KN8hDz1nUCUoYYVd dDcliZVgMqVjo1jtIXUj QPmdXY7ckGthF8TjoII7 TSGmk3m1Ff91I81eM9Ek dXA+KGLgjRE2yLM8 tL3gCtHzHlZ7UHohE051 HiLerYCsAcujd1jvr0de mGx8JwH7RXKflfVduIro YST5w4DdPx46R96a IHdpZHRoPSIxNSUiIHZh yMsekr8swG1aSu7+PGNv sJO4lPJ4oA5rDzSrTmX9 JSjmM863RtKyuTJc Dzbin6hhd5qdnJz2KcKw JBEndxRpfKesASD9i5Eq Wc19S8WjwNnli2RxTly3 fq97yRLzp6E2iHD4 K4DhXRHahbcbdKIiwRqb LF7mJPLocdtlEXHwlX6z WZMeR5z3SlVjEvK5FNvw F8KnikU3CQBirXJf GQtiZBG2Y62em9X9LWJc WXKhSWT2rIU3bO6owJoe bjogbGVmdDsgdmVydGlj JZruOVanX226JHEs mOeqDYJbcK9sTJUyrPVe fBnvYI4pRWPnbbjpAqfH WSJTVRYCYVWZMgRFLJ26 FQ44fQRqd9T8hRJ9 N5DkNWMvlnihfamgeDW9 MEEfOHNayE67vWZoTUbp Ww6uh0L7p663OLHeDYZu hE84Ry5ejDzsMLNi pFQMzA6iovpia3vebfui PaXxMYSjHVm8FZd9CIJr lQvmZvSfLNF3YvL3VLJ6 gCBfwF1snHnkpjpc zR4fNij+MDEvMDgvMTk4 ODwvdGQ+QRHjCAJ4hTcz GDniXCOulD7cASDfV1o6 MjWxMsU8JAzbJ0Lu ESDjgzotXn21zC3bPfWi KqO3CFgwE5RdziI9XJHb mRHlFRvdGMQ5O73yp0D0 CPIqLNBhQJA1eGH4 oQ8cwNakuebmbVEnqAkm ecBefFxcAUueGRxmP935 FXBtzTziClD1OUmmVUOn BL14JZ41rOGtj3U4 aBH9N7TeUQNwwibwwjjh zOE1GXVxHJExiK18eKTl QQogTr4ki8T7o418CPCn CPYvsW90Jk2tmCzn YGDxlGPGxF4wajpmv2re diblPxXiLUEsAUh1WNe4 GSHuvBirYcDdMPT4ChQ2 UYE1aMQwlL6buUxe pfxieO1oYyc+RkVNQUxF QF95HE57eFByx2O9iBO0 J1MaVGPvgtntsjfbqFL2 CGYlFOLnhT39vFJb IMplLt9za9T1q496MRJr YHPbnE56Ql1xqDamVYAk xQHLeD9datpql5txdrgn MsTgKBFlNZm2EHt9 BQClsFawHtNxADQ4KzN9 QPL3qXLqsX7xrMgfbizi vT4rGkz+YO5fmeqdagF4 YI72QW95D8FnPnih dGFibGU+PHRhYmxlIHdp ZHRoPScxMDAlJyBzdHls FR3fBr0vPCHjBVVknJeh pSZqUjPnt8vxLWJy ZKbkUH4zqPqdF7JlwBV5 DSZgg3h9Bv45W97gE4Xz dXA+MPJdsZQ9xPP3yO7a RpRaPiR8FNpqN836 ThNjbAJlJnndv2ycz3qk bWx6TzKnTRLkolFvcNkj DOS5q0MkIn33R28hLRla ZHRoPSIyMCUiIHZh eWatap3gwE3fTk9+PGNv aND9dNE3qC9aVeOfGqT9 OYlrW831LdExuZVsPida J15xO5RtpAH+PHRy Cww1GQGmjUwwIE7dmQHv RTnsYy5sHDH2CfLiPhXa MCynI9GjPHMulzzeddks yME7YWVaASDzjH26 Li8ljQetRj2uYEWrNXP0 XZBoyRGaA2NxiM8qXmYy VUFkPEChR2YelWUzITas T467GNyyIuB7SOWa obGjN5ReONIuuIgjBgB6 a9M4Oq7WkQneoPRzTB2a YpRvHKu9F4LvUqi1JDFv nOdlDR1gvDCnITyh Ce7dsVwxpYvyVS7gNJDy ushlb326EvMqg1khWQOh kJGpRWdbQVK5T39pd0K3 QHKfMDGqVAL2gZC2 pM4xyNdirrehfJYbiQbh yxLpnHqhMApoNXhuM208 GXBwnOduEsMWKdh9B2Yr Lmn9NIYecGixVK1h nCDmZRblSs0faJrpfZah MH8nMVVykdyhn141JoIy x8qrSIIiuJLnGWocIEI4 C23uu1V2QJVoOTXq FFC5xOP9gZ8orEgavwmp bGVmdDsgdmVydGljYWwt DSdaV833USQapQjeBx1T Htw8E1BiWta2EVKf nGdiVQ6wuNUpRXofRa6g oAfcvKciCV8pWLLyihwo c818KaFwu1lfRAHxcVZx TVruREN9S37ce5A4 ORWhQBFkTQD0rDZ6tC8w bGlnbjogbGVmdDsgdmVy jMsfIAajGXwuX419AVAh cDsnPlBheWVyOjwv dGQ+FF55rr32X7KuGxsy Kkc0OWEcHFH4cVU2vC7p SWCgULptm0E4dAC4E0Af keQvkq3py0rdJKOs ZTo (more content not included)... [facility] Ambulance Noteon 12-26-2021 Ambulance Note [id number] [id number] [facility] ED Clinical Summaryon 2021 ED Clinical Summary [facility] - Emergency Department [address] [place] [address] ED Clinical Summary PERSON INFORMATION Name: LOCO HICKS Age: 36 Years Sex: FEMALE : 1985 MRN: Acct#: Visit Reason: Dizziness; FACIAL NUMBNESS, DIZZINESS Arrival: 12/21/2021 18:23:41 Discharge: 12/22/2021 00:02:00 LOS: 000 05:39 Check In: 12/21/2021 18:23:41 Checkout:12/22/2021 00:02:00 Address: [address] [place] [id number] PCP: Provider, None PROVIDER INFORMATION Provider Role Assigned Unassigned Alvin Bryan ED Provider 12/21/2021 18:26:52 12/21/2021 18:30:20 Sanjuana Ramirez [employer] Nurse 12/21/2021 18:29:17 12/21/2021 23:14:12 MARIAJOSE EDEN ED PA 12/21/2021 18:30:25 Kerline Cartagena [employer]NA[employer] Nurse 12/21/2021 21:46:32 Kerline Merrill RN ED [...] - pharynx pink and moist. NECK: -Supple ([id number]): non-tender. CARD: -Rate and rhythm: Regular -Edema: No -Calf pain: No RESP: -Respiratory effort and chest excursion with respirations: Normal -Breath sounds equal bilaterally: Clear -Wheezes: No -Rales: No BACK: -Signs of pain with movement: No ABD: -Distended: No (more content not included)... Normal [facility] ED Patient Education Noteon 12-22-2021 ED Patient Education Note Education Materials Normal [facility] ED Patient Summaryon 022 ED Patient Summary [facility] - Emergency Department [address] [place], [place] [id number] PATIENT DISCHARGE INSTRUCTIONS Patient Information Name: LOCO HICKS Age: 36 Years Date of : 1985 Reason For Visit: Dizziness; FACIAL NUMBNESS, DIZZINESS Arrival Time: 12/21/2021 18:23:41 Primary Care Physician: Provider, None Attending Physician: Alvin Bryan Comment: Visit Diagnosis: Diagnoses This Visit Dizziness ([id number]) Paresthesias (R20.2) Visual disturbance (H53.9) Prescription Information: If you have been given a prescription for narcotics, seek immediate medical attention if you have any difficulty breathing or any sudden status changes such as confusion and sleepiness. If you or anyone you know is experiencing suicidal thoughts, mental health, alcohol and/or drug addiction problems; contact the [facility] 17/02 Crisis Hotline -text 4HGKS to 756219. If you received any narcotics, sedation, or [...] treatment you received today in the [facility] Emergency Department were for an urgent problem and are not intended as complete care. It is important for you to follow up with a doctor, nurse practitioner, or physician?s commercial real estate assistant for ongoing care. If your symptoms [...] so we can reach you if necessary. [facility] Emergency Department has provided you with a complete list of medications post discharge. Please inform your commissary steward/provider of your visit and for further instruction [...] Disease Control and Prevention March 2014 Normal [facility] MRI BRAIN W WO CONTRASTon [...] Cedillo MD 12/22/21 Final result Normal [facility] MRI CERVICAL SPINE W WO [...] Cedillo MD 12/22/21 Final result Normal [facility] [id number] 12-22-2021 SARS-CoV-2 (COVID-19) RNA SHELBI+probe Ql (Unsp spec) Not detected Normal NOTDET [facility] Comment on above: Result Comment: [...] management decisions. Fact sheet for Healthcare Providers: https://www.fda.gov/media/582780/download Fact sheet for Patients: https://www.fda.gov/media/885953/download Methodology: Isothermal Nucleic Acid Amplification Performed By: #### C OVRB #### [facility] [employer] [address], [place] [id number] Nutritional Services Cook: Campbell Simmons MD SARS-CoV-2 (COVID-19) PCRon 12-22-2021 Employed in healthcare? No Invalid Interpretation Code [facility] Comment on above: Performed By: #### 6 [id number] ####[facility] (DEFAULT)[address] [place] [address] Group care resident? No Invalid Interpretation Code [facility] Comment on above: Performed By: #### 6 [id number] ####[facility] (DEFAULT)[address] [place] [address] In ICU? No Invalid Interpretation Code [facility] Comment on above: Performed By: #### 6 [id number] ####[facility] (DEFAULT)[address] [place] [address] 21355 status? Not Invalid Interpretation Code [facility] Comment on above: Performed By: #### 6 [id number] ####[facility] (DEFAULT)[address] [place] [address] SARS-CoV-2 (COVID-19) RNA SHELBI+probe Ql (Unsp spec) Not detected Normal Not Detected [facility] Comment on above: Result Comment: Perf ormed by PCR methodology. Performed By: #### 6 [id number] ####[facility] (DEFAULT)[address] [place] [address]54[address] SARS-CoV-2 (COVID-19) RNA SHELBI+probe Ql (Unsp spec) No Invalid Interpretation Code [facility] Comment on above: Performed By: #### 6 [id number] ####[facility] (DEFAULT)[address] [place] [address] Symptomatic as defined by CDC? No Invalid Interpretation Code [facility] Comment on above: Performed By: #### 6 [id number] ####[facility] (DEFAULT)[address] [place] [address] 43167 Transfer Noteon 12-22-2021 Transfer Note medication list sent with patient, Complete ED chart sent with patient. CD and med list sent w. patient to Hospital [Electronically Signed on: 12/22/2021 00:05 EDT] Nadya Garcia [Verified on: 12/22/2021 00:05 EDT] [facility] [id number] [id number] [facility], [facility] transport to [facility]. Willie stated will call when back in area from [facility] Trip. [Electronically Signed on: 12/21/2021 22:14 EDT] Zee Garciaah [Verified on: 12/21/2021 22:14 EDT] Nadya Garcia [facility] .Auto Diff 1on 12-21-2021 Auto Branch % 7 % Normal 12 [facility] Comment on above: Performed By: #### 7 446619, [id number], 3666196, 96696694, 5906036, 3383606, 3838720623, 1461246, [id number] ####[facility] (DEFAULT)[address] [place] [address] 16303 Baso Abs# 0.0 x10 Normal 0.0-0.2 [facility] Comment on above: Performed By: #### 7 937826, [id number], 4440154, 12493895, 1783383, 6482031, 3790351839, 2751290, 9905101046 ####[facility] (DEFAULT)[address] [place] [address] Basophils/100 WBC (Bld) 0.4 % Normal 0.2-2.0 [facility] Comment on above: Performed By: #### 7 047339, [id number], 6258928, 79710111, 3939029, 8297892, 8483259142, 1721318, [id number] ####[facility] (DEFAULT)[address] [place] [address] 53302 Eos Abs# 0.1 x10 Normal 0.0-0.4 [facility] Comment on above: Performed By: #### 7 746806, [id number], 2100305, 35789608, 0033141, 0157636, 4581884270, 3990211, 3038883623 ####[facility] (DEFAULT)[address] [place] [address] 47503 Eosinophils/100 WBC (Bld) 0.7 % Low 0.9-4.0 [facility] Comment on above: Performed By: #### 7 744539, [id number], 7251323, 56254273, 0113016, 3251944, 9708288544, 5232573, [id number] ####[facility] (DEFAULT)[address] [place] [address] 41175 Lymph Abs# 3.2 x10 High 1.3-2.9 [facility] Comment on above: Performed By: #### 7 218361, [id number], 0380450, 04023363, 7496223, 7402976, 8873185569, 4715593, 6983353338 ####[facility] (DEFAULT)[address] [place] [address] 95169 Lymphocytes/100 WBC (Bld) 40 % Normal 14-48 [facility] Comment on above: Performed By: #### 7 521012, [id number], 9415120, 92084600, 1989732, 0826092, 8218446379, 2463375, 7948958748 ####[facility] (DEFAULT)[address] [place] [address] 04467 Branch Abs# 0.6 x10 Normal 0.0-0.8 [facility] Comment on above: Performed By: #### 7 900013, 9369640265, 3818988, 88141885, 3265247, 5595826, 9000001677, 6231211, 1855563269 ####[facility] (DEFAULT)[address] [place] [address] 54705 Neut Abs# 4.3 x10 Normal 1.5-9.2 [facility] Comment on above: Performed By: #### 7 260736, 7055744291, 1979775, 78460552, 9880590, 2250937, 9121580793, 7736156, 6160867807 ####[facility] (DEFAULT)[address] [place] [address] 44082 Neutrophils/100 WBC (Bld) 53 % Normal 44-88 [facility] Comment on above: Performed By: #### 7 398121, 9946946543, 1866821, 05442402, 2460520, 2986790, 6452316473, 3338565, 3685394821 ####[facility] (DEFAULT)[address] [place] [address] CBC w/ Auto Diffon 2 Erythrocyte distribution width (RBC) [Ratio] 14.3 % Normal 11.5-15.0 [facility] Comment on above: Performed By: #### 7 118844, [id number], 7237570, 59862859, 4362701, 5115968, 6286495161, 5151687, 6677512750 ####[facility] (DEFAULT)[address] [place] [address] 89083 Hematocrit (Bld) [Volume fraction] 42.3 % High 33.7-40.4 [facility] Comment on above: Performed By: #### 7 684887, 6075698268, 0364580, 91911823, 2022363, 0782908, 2838225685, 5236367, 8156567789 ####[facility] (DEFAULT)[address] [place] [address] 08174 Hemoglobin (Bld) [Mass/Vol] 13.7 g/dL Normal 11.3-15.9 [facility] Comment on above: Performed By: #### 7 644082, 3042061104, 2061927, 01548511, 7974210, 1208138, 7141181674, 6930249, 5725759471 ####[facility] (DEFAULT)[address] [place] [address] 41507 Instr WBC 8.2 x10 Invalid Interpretation Code [facility] Comment on above: Performed By: #### 7 011296, 7008174027, 6632336, 77676805, 7960543, 1446695, 3025382118, 1285854, 4243550706 ####[facility] (DEFAULT)[address] [place] [address] 95140 Man Diff? Auto Normal [facility] Comment on above: Performed By: #### 7 351292, 0631959706, 4145201, 67250187, 5152117, 9056773, 7741841862, 3989351, 8730898813 ####[facility] (DEFAULT)[address] [place] [address] 80095 MCH (RBC) [Entitic mass] 31 pg Normal 24-34 [facility] Comment on above: Performed By: #### 7 028037, 9934561261, 0494218, 86905760, 7750769, 6770297, 2040756358, 9974591, 3055317329 ####[facility] (DEFAULT)[address] [place] [address] 58116 MCHC (RBC) [Mass/Vol] 32 g/dL Normal 26-37 [facility] Comment on above: Performed By: #### 7 553316, 5332093189, 0869191, 53082424, 2318316, 1408283, 8916064888, 9326364, 2941693553 ####[facility] (DEFAULT)[address] [place] [address] 90607 MCV (RBC) [Entitic vol] 96 fL Normal 81-100 [facility] Comment on above: Performed By: #### 7 329188, 5673754298, 3053784, 63719557, 2645386, 9816810, 2579355759, 9263563, 9035161170 ####[facility] (DEFAULT)[address] [place] [address] 49024 Platelet 363 x10 Normal 138-427 [facility] Comment on above: Performed By: #### 7 512603, 8190543510, 0115924, 06691315, 9794868, 4238246, 5811963432, 2421492, 4801817928 ####[facility] (DEFAULT)[address] [place] [address] 87461 Platelet mean volume (Bld) [Entitic vol] 10.2 fL Normal 6.3-10.2 [facility] Comment on above: Performed By: #### 7 349916, 5724553485, 6713496, 11135565, 6547789, 4089740, 1518072043, 3690868, 4698385857 ####[facility] (DEFAULT)[address] [place] [address] 49944 RBC 4.42 x10 Normal 3.70-5.30 [facility] Comment on above: Performed By: #### 7 215334, 5854075112, 1146970, 14865056, 5632915, 7363712, 4094598537, 9297553, 9050757763 ####[facility] (DEFAULT)[address] [place] [address] 99290 WBC 8.2 x10 Normal 3.5-10.5 [facility] Comment on above: Performed By: #### 7 349837, 0837670529, 9412094, 53523046, 6586128, 8780891, 3870275821, 1553023, 7106571050 ####[facility] (DEFAULT)[address] [place] [address] 26596 [place] [facility] Standardon 12-21-2021 eGFR Non AA 57 mL/min/1.73m2 Invalid Interpretation Code [facility] Comment on above: Performed By: #### 7 883254, [id number], 1578274, 26767929, 2280135, 1452973, 0237513915, 0133800, [id number] ####[facility] (DEFAULT)[address] [place] [address] 38114 eGFR AA >60 Invalid Interpretation Code [facility] Comment on above: Result Comment: Medical Dosimetrist nathalia Kidney disease could be indicated at eGFRs of less than 60 ml/min/1.73m2. Kidney Failure is indicated at less than 15 ml/min/1.73m2 Performed By: #### 7 705864, [id number], 2443973, 55005155, 1409363, 3512015, 5475345911, 1975280, [id number] ####[facility] (DEFAULT)[address] [place] [address] Albumin [Mass/Vol] 4.7 g/dL Normal 3.5-5.0 [facility] Comment on above: Performed By: #### 7 603642, [id number], 5006336, 14968795, 6663009, 6802822, 3791743138, 9311204, 5186297519 ####[facility] (DEFAULT)[address] [place] [address] Albumin/Globulin [Mass ratio] 1.1 {ratio} Low 1.4-2.6 [facility] Comment on above: Performed By: #### 7 462274, [id number], 3249937, 93023108, 7881581, 6802871, 8162620531, 6251586, 1367145822 ####[facility] (DEFAULT)[address] [place] [address] Alk Phos 99 IU/L High 32-91 [facility] Comment on above: Performed By: #### 7 626146, [id number], 1052211, 76253206, 1620845, 7408990, 2345496939, 0785656, 6030264607 ####[facility] (DEFAULT)[address] [place] [address] ALT [Catalytic activity/Vol] 32.0 U/L Normal 14.0-54.0 [facility] Comment on above: Performed By: #### 7 199763, 1400496503, 3673209, 04932567, 0990012, 9715996, 0424576461, 7292986, 0820746105 ####[facility] (DEFAULT)[address] [place] [address] 77762 Anion gap [Moles/Vol] 23.0 mmol/L High 5.0-19.0 [facility] Comment on above: Performed By: #### 7 605806, [id number], 0007325, 06513840, 0958301, 3997235, 0119201291, 8033080, [id number] ####[facility] (DEFAULT)[address] [place] [address] 62659 AST [Catalytic activity/Vol] 41 U/L Normal 15-41 [facility] Comment on above: Performed By: #### 7 183489, [id number], 1350200, 30874678, 5219821, 2466513, 2030365165, 6812485, 0636738147 ####[facility] (DEFAULT)[address] [place] [address] 55718 Bili Total 0.4 mg/dL Normal 0.3-1.2 [facility] Comment on above: Performed By: #### 7 675933, 5430745199, 8390713, 58242286, 9746186, 0645854, 0846494509, 7695929, 9959004286 ####[facility] (DEFAULT)[address] [place] [address] 89672 Calcium [Mass/Vol] 10.2 mg/dL Normal 8.9-10.3 [facility] Comment on above: Performed By: #### 7 359979, 4396972835, 9283414, 81584199, 6391637, 4794910, 6191071590, 7592347, 1086265754 ####[facility] (DEFAULT)[address] [place] [address] 87145 Chloride [Moles/Vol] 96 mmol/L Low 101-111 [facility] Comment on above: Performed By: #### 7 025389, 6196193845, 9899140, 19553703, 0795256, 4856171, 1373437335, 9400628, 2055105472 ####[facility] (DEFAULT)[address] [place] [address] 62182 CO2 [Moles/Vol] 24 mmol/L Normal 21-32 [facility] Comment on above: Performed By: #### 7 168787, 3077789692, 5034181, 67264698, 1556983, 6859486, 9678397168, 3648262, 8236810880 ####[facility] (DEFAULT)[address] [place] [address] 25684 Creatinine [Mass/Vol] 1.10 mg/dL Normal 0.60-1.30 [facility] Comment on above: Performed By: #### 7 823229, 2194547354, 4718021, 39073700, 3743062, 9824598, 4648343715, 1905262, 7987737581 ####[facility] (DEFAULT)[address] [place] [address] 11608 Globulin (S) [Mass/Vol] 4.2 g/dL Normal 1.5-4.3 [facility] Comment on above: Performed By: #### 7 551021, 5668544630, 8026919, 40949092, 9632032, 9391834, 0397380088, 3726525, 8756260117 ####[facility] (DEFAULT)[address] [place] [address] 90173 Glucose [Mass/Vol] 97.0 mg/dL Normal 74.0-118.0 [facility] Comment on above: Performed By: #### 7 793986, 4317028360, 1195922, 05029720, 7765309, 2905254, 6958367859, 0425664, 4768266665 ####[facility] (DEFAULT)[address] [place] [address] 69946 Osmolality 278 mOsm/L Invalid Interpretation Code [facility] Comment on above: Performed By: #### 7 354541, 6067853724, 3414731, 99048238, 4878870, 8375309, 9916230152, 4018033, 5678384471 ####[facility] (DEFAULT)[address] [place] [address] 21053 Potassium [Moles/Vol] 3.5 mmol/L Low 3.6-5.1 [facility] Comment on above: Performed By: #### 7 394315, 7763807365, 3486401, 41457842, 6305807, 4727456, 1455481224, 4162723, 1540691626 ####[facility] (DEFAULT)[address] [place] [address] 99669 Protein [Mass/Vol] 8.9 g/dL High 6.5-8.1 [facility] Comment on above: Performed By: #### 7 242227, 2069409593, 8838733, 57116002, 3978578, 6146839, 7310506172, 2729679, 3632623833 ####[facility] (DEFAULT)[address] [place] [address] 30190 Sodium [Moles/Vol] 139.0 mmol/L Normal 136.0-144.0 [facility] Comment on above: Performed By: #### 7 554853, 2686161356, 0144796, 95821598, 0102342, 8888717, 9566278041, 4381111, 5735853220 ####[facility] (DEFAULT)[address] [place] [address] 36365 Urea nitrogen [Mass/Vol] 15 mg/dL Normal 8-26 [facility] Comment on above: Performed By: #### 7 807924, 9381159445, 9355853, 83086436, 7170429, 5046675, 4107252689, 5585531, 6749410095 ####[facility] (DEFAULT)[address] [place] [address] 74037 Urea nitrogen/Creatinine [Mass ratio] 14.0 mg/mg Normal 4.6-16.2 [facility] Comment on above: Performed By: #### 7 327966, 5376770796, 4388613, 29683560, 2288283, 7197481, 2600432196, 1379749, 7915131368 ####[facility] (DEFAULT)[address] [place] [address] Head or Brain w/o Contras ton [...] 12/21/21 9:19 pm Technologist: Erwin CHAUDHARI Normal [facility] D-Dimeron 12-21-2021 D-Dimer 0.49 mg/L FEU Normal 0.19-0.50 [facility] Comment on above: Result Comment: The [...] Liver cirrhosis ? Performed By: #### 7 103249, 5646660642, 3714919, 24109387, 2153008, 1895779, 0024034693, 6681089, 7303618761 ####[facility] (DEFAULT)[address] [place] [address] ED Note - Otheron 12-21-2021 ED Note - Other Neurology called back from [facility], on phone with Mariajose LLANES [Electronically Signed on: 12/21/2021 21:29 EDT] Nadya Garcia [Verified on: 12/21/2021 21:29 EDT] Radha, [facility] ED Note - Other paging Neurology through [facility] for consult for Mariajose LLANES [Electronically Signed on: 12/21/2021 21:12 EDT] Zee Garciaah [Verified on: 12/21/2021 21:12 EDT] Radha, [facility] ED Note - Physicianon 2021 ED [...] - pharynx pink and moist. NECK: -Supple ([id number]): non-tender. CARD: -Rate and rhythm: Regular -Edema: [...] I di (more content not included)... Normal [facility] ED Note-Nursingon 12-21-2021 ED Note-Nursing [employer] assumed care for pt at 2124. Pt had fluids running at that time. Will continue to give the rest of the liter per VO from MARIO ALBERTO. PA also stated that after speaking with neuro, pt is to be transferred to [facility] for MRI and further evaluation. Normal [facility] Ethanol.on 12-21-2021 Ethanol Level 9.0 mg/dL High 0.0-5.0 [facility] Comment on above: Performed By: #### 2 [id number] #### [facility] (DEFAULT) [address] [place] [address] 55829 Extra [place] 12-21-2021 Tube Collected Yes Invalid Interpretation Code [facility] Comment on above: Performed By: #### 2 131436, [id number] #### [facility] (DEFAULT) [address] [place] [address] 65090 Extra Redon 12-21-2021 Tube Collected Yes Invalid Interpretation Code [facility] Comment on above: Performed By: #### 7 798183, 4650041645, 6559407, 66276086, 1358489, 5470164, 5282280098, 8738114, 0757345688 #### [facility] (DEFAULT) [address] [place] [address] 65542 Magnesiumon 12-21-2021 Magnesium [Mass/Vol] 2.02 mg/dL Normal 1.80-2.50 [facility] Comment on above: Performed By: #### 7 984358, [id number], 7208000, 96984305, 8868814, 4659697, 5925820493, 9687481, 3112092595 ####[facility] (DEFAULT)[address] [place] [address] 18382 PTon 12-21-2021 INR Coag (PPP) [Relative time] 0.94 {INR} Normal 0.91-1.11 [facility] Comment on above: Performed By: #### 7 710942, 3398693115, 6616106, 76727440, 5171754, 9741377, 2653094790, 9674053, 6393395944 ####[facility] (DEFAULT)[address] [place] [address] PT 10.2 second(s) Normal 9.7-11.8 [facility] Comment on above: Performed By: #### 7 627204, 0542981319, 0341817, 91348892, 3884435, 2972696, 5035714259, 4073489, 3858508036 ####[facility] (DEFAULT)[address] [place] [address] 57177 PTTon 12-21-2021 PTT 26 second(s) Normal 25-35 [facility] Comment on above: Performed By: #### 7 913093, 4071164703, 3401421, 79908833, 8862056, 7944199, 8150249996, 7838675, 8860401929 ####[facility] (DEFAULT)[address] [place] [address] 62067 Test Urine 1 U Preg Negative [facility] Comment on above: Performed By: #### 1 [id number], [id number] ####[facility] (DEFAULT)[address] [place] [address] 58701 U Preg Internal Control Pass [facility] Comment on above: Performed By: #### 1 [id number], 959391398 ####[facility] (DEFAULT)[address] [place] [address] 26896 Salicylateon 12-21-2021 Salicylate Lvl <4.0 Normal 0.0-30.0 [facility] Comment on above: Result Comment: Sali cylate ranges less than 30 mg/dL are considered to be therapeutic. Levels greater than 30 mg/dL are considered toxic and levels greater than 60 mg/dL may be lethal. Performed By: #### 2 283376, [id number] #### [facility] (DEFAULT) [address] [place] [address] 82129 TnI HSon 12-21-2021 Troponin I High Sensitivity <2 Normal <=15 [facility] Comment on above: Result Comment: Male Baseline Delta 1Hr (Note pg/mL=ng/L) <20pg/mL 50-60% >20pg/mL 20% Female Baseline Delta 1Hr <15pg/mL 50-60% >15pg/mL 20% Other Baseline Delta 1Hr <18ng/mL 50-60% >18ng/mL 20% ([employer] Guidelines February 2018) Performed By: #### 7 296478, 4575594598, 1603533, 45966302, 0222017, 0226605, 2976469185, 4993376, 1130697236 ####[facility] (DEFAULT)[address] [place] [address] 16629 Triage Panel 12on 12-21-2021 Triage Internal Control Pass [facility] Comment on above: Performed By: #### 1 [id number] ####[facility] (DEFAULT)[address] [place] [address] 11210 U Amph Scr Negative [facility] Comment on above: Performed By: #### 1 [id number] ####[facility] (DEFAULT)[address] [place] [address] 47946 U Vanesa Scr Negative Normal [facility] Comment on above: Performed By: #### 1 [id number] ####[facility] (DEFAULT)[address] [place] [address] 19155 U Benzodia Scr Negative Normal [facility] Comment on above: Performed By: #### 1 [id number] ####[facility] (DEFAULT)[address] [place] [address] 83729 U Cannab Scrn Negative Normal [facility] Comment on above: Performed By: #### 1 [id number] ####[facility] (DEFAULT)[address] [place] [address] 41299 U Cocaine Scr Negative [facility] Comment on above: Performed By: #### 1 [id number] ####[facility] (DEFAULT)[address] [place] [address] 85819 U Methadone Scr Negative [facility] Comment on above: Performed By: #### 1 [id number] ####[facility] (DEFAULT)[address] [place] [address] 35359 U Methamp Scrn Negative [facility] Comment on above: Performed By: #### 1 [id number] ####[facility] (DEFAULT)[address] [place] [address] 57940 U Opiate Scr Negative [facility] Comment on above: Performed By: #### 1 [id number] ####[facility] (DEFAULT)[address] [place] [address] 32488 U Oxycod Scr Negative Normal [facility] Comment on above: Performed By: #### 1 [id number] ####[facility] (DEFAULT)[address] [place] [address] 23921 U Phencyclidine Scr Negative Normal [facility] Comment on above: Performed By: #### 1 [id number] ####[facility] (DEFAULT)[address] [place] [address] 75402 U Propoxyphene Scr Negative [facility] Comment on above: Performed By: #### 1 [id number] ####[facility] (DEFAULT)[address] [place] [address] 52628 U Tricyclic Antidepress Scr Negative [facility] Comment on above: Result Comment: Resu [...] PPX Propoxyphene (Norpropoxyphene): 300 ng/mL THC Cannabinoids (75-wln-8-carboxy- -THC): 50 ng/mL TCA Tricyclic-Antidepressants (Desipramine): 300 ng/mL Performed By: #### 1 [id number] ####[facility] (DEFAULT)[address] [place] [address] Urine Source Clean Catch [facility] Comment on above: Performed By: #### 1 [id number] ####[facility] (DEFAULT)[address] [place] [address] UA w Culture if Ind Standard on 12-21-2021 Color (U) Yellow [facility] Comment on above: Performed By: #### 1 [id number], [id number] ####[facility] (DEFAULT)[address] [place] [address] Culture? Not Indicated Invalid Interpretation Code [facility] Comment on above: Result Comment: Resu lt created by rule GL_MAGR_ADD_UA_CULT1 Performed By: #### 1 [id number], [id number] ####[facility] (DEFAULT)[address] [place] [address] Glucose (U) [Mass/Vol] Negative [facility] Comment on above: Performed By: #### 1 [id number], [id number] ####[facility] (DEFAULT)[address] [place] [address] 59216 Ketones Ql (U) Negative Normal [facility] Comment on above: Performed By: #### 1 [id number], [id number] ####[facility] (DEFAULT)[address] [place] [address] 71455 Micro? Not Indicated Invalid Interpretation Code [facility] Comment on above: Result Comment: Resu lt created by rule GL_MAGR_ADD_UA_MICRO Performed By: #### 1 [id number], [id number] ####[facility] (DEFAULT)[address] [place] [address] 06442 UA Bilirubin Negative Normal [facility] Comment on above: Performed By: #### 1 [id number], [id number] ####[facility] (DEFAULT)[address] [place] [address] 27798 UA Blood Negative Normal NEGATIVE [facility] Comment on above: Performed By: #### 1 [id number], [id number] ####[facility] (DEFAULT)[address] [place] [address] 81150 UA Clarity CLEAR Normal CLEAR [facility] Comment on above: Performed By: #### 1 [id number], [id number] ####[facility] (DEFAULT)[address] [place] [address] 02609 UA Leuk Est Negative Normal NEGATIVE [facility] Comment on above: Performed By: #### 1 [id number], [id number] ####[facility] (DEFAULT)[address] [place] [address] 73703 UA Nitrite Negative Normal NEGATIVE [facility] Comment on above: Performed By: #### 1 [id number], [id number] ####[facility] (DEFAULT)[address] [place] [address] 63946 UA pH 6.5 Normal 5-8 [facility] Comment on above: Performed By: #### 1 [id number], [id number] ####[facility] (DEFAULT)[address] [place] [address] 08871 UA Protein Negative Normal NEGATIVE [facility] Comment on above: Performed By: #### 1 [id number], [id number] ####[facility] (DEFAULT)[address] [place] [address] UA Spec Grav <=1.005 Normal 1.001-1.035 [facility] Comment on above: Performed By: #### 1 [id number], [id number] ####[facility] (DEFAULT)[address] [place] [address] 38802 UA Urobilinogen 0.2 mg/dL Normal 0.2-1.0 [facility] Comment on above: Performed By: #### 1 [id number], [id number] ####[facility] (DEFAULT)[address] [place] [address] Breakpoint UA Normal [facility] Comment on above: Performed By: #### 1 [id number], [id number] ####[facility] (DEFAULT)[address] [place] [address] Urine Source Clean Catch Normal [facility] Comment on above: Performed By: #### 1 [id number], [id number] ####[facility] (DEFAULT)[address] [place] [address] 82581 XR Chest 2 Viewson 2 XR Chest [...] 12/21/21 9:38 pm Technologist: Obed BELLE Normal [facility] CARDIAC HUMAIRA ADMITon 021 CK [Catalytic activity/Vol] 117 U/L Normal 30-135 [facility] Comment on above: Performed By: #### T JOÃO LOCK CMP #### [facility] [address] [address] Nelida Bautista CK.MB [Mass/Vol] 1.16 ng/mL Normal <=2.37 [facility] Comment on above: Performed By: #### T JOÃO LOCK CMP #### [facility] [address] [place] [address] Nelida Bautista HSTROP <4.0 Normal 4.0-35.5 [facility] Comment on above: Result Comment: CUT- OFF POINTS HAVE BEEN ESTABLISHED BASED ON THE FOURTH UNIVERSAL DEFINITIONS OF MYOCARDIAL INFARCTION. THE UPPER REFERENCE LIMIT (URL) OF TROPONIN, DEFINED THE 99TH PERCENTILE OF cTnI DISTRIBUTION IN A REFERENCE POPULATION, HAS BEEN CONFIRMED THE DECISION THRESHOLD FOR UT DIAGNOSIS. Performed By: #### T JOÃO LOCK CMP #### [facility] [address] [place] [address] Nelida Bautista NGA 41.0 ng/mL Normal <=61.5 [facility] Comment on above: Performed By: #### T JOÃO LOCK CMP #### [facility] [address] [place] [address] Nelida Lily CBC AUTO DIFFon 02-23-2021 BASO # 0.1 103/ul Normal 0.0-0.1 [facility] Comment on above: Performed By: #### C BC #### [facility] [address] [place] [address] Nelida Lily Basophils/100 WBC (Bld) 1.0 % Normal 0.2-2.0 [facility] Comment on above: Performed By: #### C BC #### [facility] [address] [place] [address] Nelida Lily EO # 0.1 103/ul Normal 0.0-0.7 [facility] Comment on above: Performed By: #### C BC #### [facility] [address] [place], [place] [address] Nelida Lily Eosinophils/100 WBC (Bld) 2.2 % Normal 0.9-7.0 [facility] Comment on above: Performed By: #### C BC #### [facility] [address] [place] [address] Nelidajose Bautista Erythrocyte distribution width (RBC) [Ratio] 14.2 % Normal 11.0-15.0 [facility] Comment on above: Performed By: #### C BC #### [facility] [address] [place] [address] Nelida Lily Hematocrit (Bld) [Volume fraction] 40.6 % Normal 36.0-48.0 [facility] Comment on above: Performed By: #### C BC #### [facility] [address] [place] [address] Nelida Lily Hemoglobin (Bld) [Mass/Vol] 13.3 g/dL Normal 12.0-16.0 [facility] Comment on above: Performed By: #### C BC #### [facility] [address] [place] [address] Nelida Lily IG # 0.02 10e3/ul Normal 0.00-0.03 [facility] Comment on above: Performed By: #### C BC #### [facility] [address] [place] [address] Nelida Lily IG % 0.4 % Normal 0.0-0.5 [facility] Comment on above: Performed By: #### C BC #### [facility] [address] [place] [address] Nelida Lily LYMPH # 1.7 103/ul Normal 1.2-3.8 [facility] Comment on above: Performed By: #### C BC #### [facility] [address] [place] [address] Nelida Lily Lymphocytes/100 WBC (Bld) 34.6 % Normal 20.5-60.0 [facility] Comment on above: Performed By: #### C BC #### [facility] [address] [place] [address] Nelida Lily MANUAL DIFF REQ NO Normal [facility] Comment on above: Performed By: #### C BC #### [facility] [address] [id number] Nelida Bautista MCH (RBC) [Entitic mass] 31.5 pg Normal 26.7-34.0 [facility] Comment on above: Performed By: #### C BC #### [facility] [address] [id number] Nelidajose Bautista MCHC (RBC) [Mass/Vol] 32.8 g/dL Normal 29.9-35.2 [facility] Comment on above: Performed By: #### C BC #### [facility] [address] [id number] Nelidajose Bautista MCV (RBC) [Entitic vol] 96.2 fL Normal 81.0-99.0 [facility] Comment on above: Performed By: #### C BC #### [facility] [address] [place] [address] Nelida Kimbleen MONO # 0.4 103/ul Normal 0.3-0.8 [facility] Comment on above: Performed By: #### C BC #### [facility] [address] [place], [place] [address] Nelida Bautista Monocytes/100 WBC (Bld) 7.1 % Normal 1.7-12.0 [facility] Comment on above: Performed By: #### C BC #### [facility] [address] [place], [place] [address] Nelidajose Kimbleen NEUT # 2.7 103/ul Normal 1.4-6.5 [facility] Comment on above: Performed By: #### C BC #### [facility] [address] [place], [place] [address] Nelida Lily Neutrophils/100 WBC (Bld) 54.7 % Normal 43.0-75.0 [facility] Comment on above: Performed By: #### C BC #### [facility] [address] [place], [place] [address] Nelida Lily Platelet mean volume (Bld) [Entitic vol] 9.8 fL Normal 9.5-13.5 [facility] Comment on above: Performed By: #### C BC #### [facility] [address] [place], [place] [address] Nelida Lily PLT 320 103/ul Normal 150-450 [facility] Comment on above: Performed By: #### C BC #### [facility] [address] [place], [place] [address] Nelida Lily RBC 4.22 106/ul Normal 4.20-5.40 [facility] Comment on above: Performed By: #### C BC #### [facility] [address] [place], [place] [address] Nelida Lily WBC 4.9 103/ul Normal 4.0-11.0 [facility] Comment on above: Performed By: #### C BC #### [facility] [address] [place], [place] [address] STROKE HEAD WOon 02-24-20 [...] JANESSA SKINNER Date: 2021-02-23 13:52 Normal [facility] ER URINE PROFILEon 1 Bilirubin Ql (U) Negative Normal NEGATIVE [facility] Comment on above: Performed By: #### E RUR #### [facility] [address] [place], [place] [address] Nelida Lily Clarity (U) CLEAR Normal CLEAR [facility] Comment on above: Performed By: #### E RUR #### [facility] [address] [place], [place] [address] Nelida Lily Color (U) LT. YELLOW Normal YELLOW [facility] Comment on above: Performed By: #### E RUR #### [facility] [address] [place], [place] [address] Nelida Lily ERUAHD A micrscopic examination will be performed if indicated. Normal [facility] Comment on above: Performed By: #### E RUR #### [facility] [address] [place] [address] Nelida Lily Glucose Ql (U) Negative Normal NEGATIVE [facility] Comment on above: Performed By: #### E RUR #### [facility] [address] [place] [address] Nelida Lily Hemoglobin Ql (U) Negative Normal NEGATIVE The [facility] Comment on above: Performed By: #### E RUR #### [facility] [address] [place] [address] Nelida Lily Ketones Ql (U) Negative Normal NEGATIVE [facility] Comment on above: Performed By: #### E RUR #### [facility] [address] [place] [address] Nelida Lily LEUKOCYTES Negative Normal NEGATIVE [facility] Comment on above: Performed By: #### E RUR #### [facility] [address] [place] [address] Nelida Lily Nitrite Ql (U) Negative Normal NEGATIVE [facility] Comment on above: Performed By: #### E RUR #### [facility] [address] [place] [address] Nelida Lily pH (U) 8.0 [pH] Normal 5-9 [facility] Comment on above: Performed By: #### E RUR #### [facility] [address] [place] [address] Nelida Lily SPEC GRAVITY 1.020 Normal 1.005-<=1.025 The [facility] Comment on above: Performed By: #### E RUR #### [facility] [address] [place], [place] [id number] Nelida Bautista UA PROTEIN Negative Normal NEGATIVE/ TRACE [facility] Comment on above: Performed By: #### E RUR #### [facility] [address] [place], [place] [id number] Nelida Bautista UR MICRO IND NOT INDICATED Normal The [facility] Comment on above: Performed By: #### E RUR #### [facility] [address] [place], [place] [id number] Nelida Bautista Urobilinogen Qn (U) 0.2 {Jose Carlos'U}/dL Normal 0.2 - 1. 0 [facility] Comment on above: Performed By: #### E RUR #### [facility] [address] [place], [place] [id number] Nelida Bautista POINT OF CARE GLUCOSEon 01-27 Glucose [Mass/Vol] 95 mg/dL Normal 74-106 The [facility] Comment on above: Performed By: #### P OCGLUC #### [facility] [address] [place] [address] Nelida Bautista PREG HCG QUALon 02-23-2021 , QUAL Negative Normal NEGATIVE The [facility] Comment on above: Performed By: #### P REG #### [facility] [address] [place] [address] Nelida Bautista PROF 14(COMP METB)on 021 Albumin [Mass/Vol] 3.6 g/dL Normal 3.5-5.0 The [facility] Comment on above: Performed By: #### T JOÃO LOCK, CMP #### [facility] [address] [place] [address] Nelida Bautista Albumin/Globulin [Mass ratio] 0.9 {ratio} Normal [facility] Comment on above: Performed By: #### T JOÃO LOCK, CMP #### [facility] [address] [place], [place] [address] Nelida Lily ALP [Catalytic activity/Vol] 103 U/L Normal 38-126 [facility] Comment on above: Performed By: #### T JOÃO LOCK, CMP #### [facility] [address] [place], [place] [address] Nelida Lily ALT [Catalytic activity/Vol] 35 U/L Normal 9-52 [facility] Comment on above: Performed By: #### T JOÃO LOCK, CMP #### [facility] [address] [place] [id number] Nelida Lily Anion gap [Moles/Vol] 13.3 mmol/L Normal [facility] Comment on above: Performed By: #### T JOÃO LOCK, CMP #### [facility] [address] [place] [id number] Nelida Lily AST [Catalytic activity/Vol] 28 U/L Normal 14-36 [facility] Comment on above: Performed By: #### T JOÃO LOCK, CMP #### [facility] [address] [place] [address] Nelida Lily Bilirubin [Mass/Vol] 0.2 mg/dL Normal 0.2-1.3 [facility] Comment on above: Performed By: #### T JOÃO LOCK, CMP #### [facility] [address] [place] [address] Nelida Lily Calcium [Mass/Vol] 9.0 mg/dL Normal 8.4-10.2 The [facility] Comment on above: Performed By: #### T JOÃO LOCK, CMP #### [facility] [address] [place], [place] [address] Nelida Lily Chloride [Moles/Vol] 108 mmol/L Critically high 98-107 [facility] Comment on above: Performed By: #### T JOÃO LOCK, CMP #### [facility] [address] [place] [id number] Nelida Lily CO2 [Moles/Vol] 25.8 mmol/L Normal 22.0-30.0 The [facility] Comment on above: Performed By: #### T JOÃO LOCK, CMP #### [facility] [address] [place] [id number] Nelida Lily Creatinine [Mass/Vol] 1.00 mg/dL Normal 0.52-1.04 [facility] Comment on above: Performed By: #### T HAYDE, CMADM, CMP #### [facility] [address] [place], [place] [address] Nelida Lily EGFR-AF SAO TOMEAN >60 Normal >=60 [facility] Comment on above: Performed By: #### T HAYDE, CMADM, CMP #### [facility] [address] [place], [place] [address] Nelida Lily EGFR-NON AF SAO TOMEAN >60 Normal >=60 [facility] Comment on above: Performed By: #### T HAYDE, CMADM, CMP #### [facility] [address] [place], [place] [address] Nelida Lily Globulin (S) [Mass/Vol] 4.2 g/dL Normal [facility] Comment on above: Performed By: #### T HAYDE, CMADM, CMP #### [facility] [address] [place], [place] [address] Nelida Lily Glucose [Mass/Vol] 95 mg/dL Normal 74-106 [facility] Comment on above: Performed By: #### T HAYDE CMADM, CMP #### [facility] [address] [place], [place] [address] Nelida Lily Potassium [Moles/Vol] 4.1 mmol/L Normal 3.4-5.0 [facility] Comment on above: Performed By: #### T HAYDE, CMADM, CMP #### [facility] [address] [place], [place] [address] Nelida Lily Protein [Mass/Vol] 7.8 g/dL Normal 6.1-8.2 The [facility] Comment on above: Performed By: #### T HAYDE, CMADM, CMP #### [facility] [address] [place], [place] [address] Nelida Lily Sodium [Moles/Vol] 143 mmol/L Normal 137-145 The [facility] Comment on above: Performed By: #### T HAYDE, CMADM, CMP #### [facility] [address] [place], [place] [address] Nelida Lily Urea nitrogen [Mass/Vol] 10.0 mg/dL Normal 7.0-17.0 [facility] Comment on above: Performed By: #### T SH, CMADM, CMP #### [facility] [address] [place] [address] Nelida Bautista Urea nitrogen/Creatinine [Mass ratio] 10.0 mg/mg Normal [facility] Comment on above: Performed By: #### T SH, CMADM, CMP #### [facility] [address] [place] [address] Nelida Bautista TSHon 02-23-2021 TSH 1.157 uIU/mL Normal 0.470-4.680 The [facility] Comment on above: Performed By: #### T SH, CMADM, CMP #### [facility] [address] [place] [address] Nelida Bautista TSH RANGE SEE BELOW Normal [facility] Comment on above: Result Comment: <0.3 4 UIU/ml HYPERTHYROID 0.34-5.60 UIU/ml EUTHYROID >5.60 UIU/ml HYPOTHYROID Performed By: #### T SH, CMADM, CMP #### [facility] [address] [place] [address] Nelida Bautista XR CHEST 1 Von 02-23-2021 [...] by: JANESSA SKINNER Date: 2021-02-23 13:53 Normal [facility] Encounters Encounter Date Encounter Type Care Provider Facility Start: 03-15-2024 End: 03-15-2024 ambulatory MARYANN ZACKERY Not Available Start: 03-08-2024 End: 03-08-2024 ambulatory MARYANN ZACKERY Not Available Start: 02-23-2024 End: 02-23-2024 ambulatory SHAWNA RICHTER Not Available Start: 02-16-2024 End: 02-16-2024 ambulatory SHAWNA NEELAM Not Available Start: 02-09-2024 End: 02-09-2024 ambulatory MARYANN ZACKERY Not Available Start: 01-26-2024 End: 01-26-2024 ambulatory [...] Start: 12-22-2021 End: 12-22-2021 ambulatory JARVIS RODRIGUEZ [facility] Start: 02-23-2021 End: 02-23-[address] DOCTOR GOODSON Facility: Payers Date Payer Category Payer Unknown [id number] 1985 Unknown [id number] 2.16.84 [id number] 1987 Unknown [id number] 2.16.84 [id number] 1987 Unknown [id number] 2.16.84 0.1.016517.3.579.2.1258 1987 Unknown [id number] 2.16.84 0.1.195660.3.579.2.1258 1987 Unknown [id number] 2.16.84 0.1.826114.3.579.2.9 1987 Unknown [id number] 2.16.84 0.1.427639.3.579.2.9 1987 Unknown [id number] 2.16.84 0.1.219144.3.579.2.1258 1987 Unknown [id number] 2.16.84 0.1.350826.3.579.2.1258 1987 Unknown [id number] 2.16.84 0.1.563087.3.579.2.1258 1987 Unknown [id number] 2.16.84 0.1.419788.3.579.2.1258 1987 Unknown [id number] 2.16.84 0.1.758345.3.579.2.1258 1987 Unknown [id number] 2.16.84 0.1.886343.3.579.2.1258 1987 Unknown [id number] 2.16.84 0.1.304921.3.579.2.1258 1987 Unknown [id number] 2.16.84 0.1.932814.3.579.2.1258 1959 Unknown [id number] Summary Purpose Family History No Family History Records FoundNo Family History Records FoundNo Family History Records FoundNo Family History Records Found Advance Directives No Advanced Directives Records FoundNo Advanced Directives Records FoundNo Advanced Directives Records FoundNo Advanced Directives Records Found Additional Source Comments INFORMATION SOURCE (unrecogn ized section and content) DATE CREATED AUTHOR 02/28/2021 [facility] DATE CREATED AUTHOR AUTHOR'S ORGANIZ ATION 12/24/2021 [facility] DATE CREATED AUTHOR AUTHOR'S ORGANIZ ATION 01/01/2022 [facility] DATE CREATED AUTHOR AUTHOR'S ORGANIZ ATION 03/16/2024 [facility] EPIC FOR RECORDS PERTAINING TO [...] BASED ON THE PRIMARY CLINICAL RECORDS. [employer] [facility]. provides no warranty or guarantee of the accuracy or completeness of information in this document.
--- NOTE | 2024-04-12 12:26 | PC.NURSE ---
Sarah and 7 week old Melanie arrive for support. Sarah continues to pump and feed daughter a bottle as direct was very stressful. Melanie has had evaluation for lip and tongue tie with revision of both.. Sites are healing well. Mom states is very routine with stretches as directed. Bottle feeds with Mandaeism bottle and nipple. Baby sucks and swallows rapidly, hands are clenched and infant gulping. Shown to slow pace feed with bottle and why is beneficial for infant. Mom returns demo and relaxes, breathing regular and is controlling feed. Mom in agreement that baby tolerated feeding well. Discussed pumping routine, pumps every 2-3 hours, obtains 9 oz with each effort. States my pump is awful . Has Lansinoh pump, difficult to use, takes long time to remove milk, can only pump 1 breast at a time. Information for [employer] completed and faxed. Copy given to Sarah for follow up. No further questions, Sarah leaves ambulatory with daughter. Aware of continued LC support as needed.
== END 2024-04-12 12:51 | disposition home or self-care (01) ==
LOC: FBCO 08:11
PROVIDERS: Visit Provider Obstetrics & Gynecology
DX: Z39.1 Encounter for care and examination of lactating mother (principal)

== ENCOUNTER 2024-10-12 14:52 | Outpatient (REF) | payer BC, SELFPAY | END 2024-10-12 14:53 | disposition home or self-care (01) | LOC: LAB 14:52 | PROVIDERS: Visit Provider Obstetrics & Gynecology | DX: Z01.419 Encounter for gynecological examination (general) (routine) without abnormal findings (principal) | CPT/HCPCS: 87624; 88175 ==